=== PATIENT | female | born 1990 | race Caucasian/White ===

== ENCOUNTER → 2016-05-07 | Outpatient (CLI) | payer OTHER ==
--- NOTE | 2016-05-07 18:27 | CT ---
EXAMINATION TYPE: CT ChestAbdPelvis w con DATE OF EXAM: 05/07/2016 6:13 PM COMPARISON: 11/09/2015 HISTORY: Enlarged lymph nodes. CT DLP: 3808.00 mGycm Automated exposure control for dose reduction was used. CONTRAST: CT scan of the chest, abdomen and pelvis is performed with Oral Contrast and with IV Contrast, patien t injected with 100 mL of Omnipaque 300. FINDINGS: The lungs are clear of infiltrate. There is no pleural effusion. There is no mediastinal adenopathy. There are no hilar masses. Heart size is normal. There is no pericardial effusion. The liver pancreas appear normal. Spleen is slightly enlarged and measures 14 cm. There are clips fr om cholecystectomy. There is no adrenal mass. Kidneys have normal size and contour. There is normal c ontrast opacification. There is no hydronephrosis. There is no retroperitoneal adenopathy. I see no intestinal wall thickening. There are no dilated loops. Bladder distends smoothly. There is no evidence of a pelvic mass. Appendix is not definitely seen. There is no sign of appendicitis. The bony structures are intact. I see no axillary adenopathy. I see no inguinal adenopathy. IMPRESSION: Essentially negative CT scan of the chest abdomen and pelvis. No adenopathy identified. S table mild splenomegaly. Spleen measures 14 cm and is unchanged compared to old exam.
--- NOTE | 2016-05-07 18:32 | CT ---
EXAMINATION TYPE: CT soft tissue neck w con DATE OF EXAM: 05/07/2016 6:13 PM COMPARISON: 11/09/2015 HISTORY: Enlarged lymph nodes. CT DLP: 3808.00 mGycm Automated exposure control for dose reduction was used. CONTRAST: CT scan of the neck is performed following with IV Contrast, patient injected with 100 mL of Omnipaqu e 300. Axial images are obtained, coronal and sagittal reformatted images are reviewed. FINDINGS: There is a small mucous retention cyst in the left maxillary sinus. Parotid glands are symmetric. Sub mandibular salivary glands are symmetric. There are multiple enlarged anterior triangle cervical lymp h nodes that measure up to 2.2 cm. Cervical spine is intact. Epiglottis is normal. There is no eviden ce of a pharyngeal mass. Adenoids are within normal limits. Tonsils are not enlarged. Carotid arterie s and jugular veins appear normal. Thyroid gland is symmetric. There is normal branching pattern of t he great vessels on the aortic arch. There are a few bilateral posterior triangle lymph nodes that me asure up to 1 cm. IMPRESSION: There is symmetric cervical lymphadenopathy without change compared to old exam. Small mucous retenti on cyst in the left maxillary sinus.
== END | disposition home or self-care (01) ==
LOC: RADCTMAIN 16:13
PROVIDERS: ATTEND Internal Medicine Hematology & Oncology
DX: Z03.89 Encounter for observation for other suspected diseases and conditions ruled out (principal); R59.0 Localized enlarged lymph nodes; R16.1 Splenomegaly, not elsewhere classified
CPT/HCPCS: 70491; 71260; 74177; Q9967

== ENCOUNTER 2016-05-12 18:46 | Emergency (ER) | payer OTHER ==
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
[2016-05-12] MEDS ORDERED: SODIUM CHLORIDE 0.9% 500 ML IV ONE (19:49)
[2016-05-12] MEDS ORDERED: ACETAMINOPHEN IV (For NPO) 1,000 MG in EMPTY BAG 1 BAG IVPB STA (19:49)
[2016-05-12 20:17] LABS: Basophils # (A) 0.1 k/uL (0-0.2); Basophils % (A) 1 %; CH 27.4; CHCM 33.8; Eosinophils # (A) 0.5 k/uL (0-0.7); Eosinophils % (A) 6 %; HCT 35.1 % (34.0-46.0); HDW 2.87; HGB 11.9 gm/dL (11.4-16.0); Luc # (Auto) 0.09; Luc % (Auto) 1; Lymphocytes # (A) 2.2 k/uL (1.0-4.8); Lymphocytes % (A) 27 %; MCH 27.5 pg (25.0-35.0); MCHC 33.8 g/dL (31.0-37.0); MCV 81.4 fL (80.0-100.0); Mean Platelet Volume 7.4; Monocytes # (A) 0.4 k/uL (0-1.0); Monocytes % (A) 5 %; Neutrophils # (A) 4.9 k/uL (1.3-7.7); Neutrophils % (A) 61 %; RBC 4.31 m/uL (3.80-5.40); RDW 13.4 % (11.5-15.5); WBC 8.2 k/uL (3.8-10.6); WBC (Perox) 8.21
[2016-05-12 20:30] LABS: ALT 47 U/L (9-52); AST 22 U/L (14-36); Alkaline Phosphatase 117 U/L (38-126); Anion Gap 11 mmol/L; Blood Urea Nitrogen 13 mg/dL (7-17); Calcium 8.8 mg/dL (8.4-10.2); Carbon Dioxide 23 mmol/L (22-30); Chloride 108 mmol/L (98-107); Glucose 98 mg/dL (74-99); Non-African American GFR(MDRD) >60 (>60 ml/min/1.73 sqM); Sodium 142 mmol/L (137-145); Total Bilirubin 0.6 mg/dL (0.2-1.3)
[2016-05-12 20:35] LABS: Prothrombin Time 9.9 sec (9.0-12.0)
[2016-05-12] MEDS ORDERED: MORPHINE SULFATE 2 MG/ML SYRINGE IV STA (20:49)
[2016-05-12 20:58] LABS: Appearance,Urine Clear (Clear); Bilirubin,Urine Negative (Negative); Glucose,Urine (UA) Negative (Negative); Ketones,Urine Negative (Negative); Leukocyte Esterase,Urine Trace (Negative); Mucus,Urine Rare /hpf; Nitrite,Urine Negative (Negative); Particle Count 2233; Protein,Urine Negative (Negative); RBC,Urine >182 /hpf (0-5); Squamous Epithelial Cell,Urine 2 /hpf (0-4); UA Billing (MACRO vs. MICRO) MICRO; Urobilinogen,Urine <2.0 mg/dL (<2.0); WBC,Urine 2 /hpf (0-5)
[2016-05-12 20:59] VITALS: TEMP 97.4
--- NOTE | 2016-05-12 22:12 | US ---
EXAMINATION TYPE: US transvaginal DATE OF EXAM: 05/12/2016 9:54 PM COMPARISON: 09/19/2015 CLINICAL HISTORY: US. Heavy vaginal bleeding with clots. Pelvic pain. Tubal ligation 2014. 4 c-sectio ns TECHNIQUE: Transvaginal (TV) Date of LMP: unknown EXAM MEASUREMENTS: Uterus: 9.8 x 4.7 x 4.6cm Endometrial Stripe: 0.6cm Right Ovary: unable to visualize Left Ovary: unable to visualize FINDINGS: TECHNOLOGIST IMPRESSION: 1. Uterus: Anteverted heterogeneous in appearance 2. Endometrium: appears wnl 3. Right Ovary: Obscured by overlying bowel gas 4. Left Ovary: Obscured by overlying bowel gas 5. Bilateral Adnexa: wnl 6. Posterior cul-de-sac: wnl IMPRESSION: No endometrial thickening seen. No adnexal mass or free fluid. No adverse change compared to the old exam.
[2016-05-12 23:07] VITALS: BP 121/72; PULSE 76; RESP 16
== END 2016-05-12 23:05 | disposition home or self-care (01) ==
LOC: EC 18:46
DX: N93.9 Abnormal uterine and vaginal bleeding, unspecified (principal); F32.9 Major depressive disorder, single episode, unspecified; F31.9 Bipolar disorder, unspecified; F41.9 Anxiety disorder, unspecified; Z79.899 Other long term (current) drug therapy; Z87.442 Personal history of urinary calculi
CPT/HCPCS: 36415; 86900; 86901; 80053; 85025; 85610; 85730; 86850; 81001; 84702; 87086; 76830; 99284; 96361; 96374; J2270; J0131

== ENCOUNTER 2016-05-21 14:22 | Emergency (ER) | payer OTHER ==
[2016-05-21] MEDS ORDERED: SODIUM CHLORIDE 0.9% 500 ML IV STA (17:43)
[2016-05-21] MEDS ORDERED: ONDANSETRON 4 MG/2 ML VIAL IVP STA (17:43)
[2016-05-21 18:23] LABS: ALT 43 U/L (9-52); AST 26 U/L (14-36); Alkaline Phosphatase 130 U/L (38-126); Amorphous Sediment,Urine Occasional /hpf; Amylase <30 U/L (30-110); Anion Gap 12 mmol/L; Appearance,Urine Cloudy (Clear); Bacteria,Urine Occasional /hpf; Bilirubin,Urine Negative (Negative); Blood Urea Nitrogen 17 mg/dL (7-17); Calcium 9.3 mg/dL (8.4-10.2); Carbon Dioxide 22 mmol/L (22-30); Chloride 108 mmol/L (98-107); Glucose 94 mg/dL (74-99); Glucose,Urine (UA) Negative (Negative); Ketones,Urine Negative (Negative); Leukocyte Esterase,Urine Small (Negative); Mucus,Urine Few /hpf; Nitrite,Urine Negative (Negative); Non-African American GFR(MDRD) >60 (>60 ml/min/1.73 sqM); PH, Urine 6.5 (5.0-8.0); Particle Count 17085; Potassium 4.6 mmol/L (3.5-5.1); Protein,Urine 1+ (Negative); RBC,Urine 14 /hpf (0-5); Sodium 142 mmol/L (137-145); Specific Gravity,Urine 1.023 (1.001-1.035); Squamous Epithelial Cell,Urine 20 /hpf (0-4); Total Bilirubin 0.8 mg/dL (0.2-1.3); Total Protein 7.1 g/dL (6.3-8.2); UA Billing (MACRO vs. MICRO) MICRO; Urobilinogen,Urine <2.0 mg/dL (<2.0); WBC,Urine 42 /hpf (0-5)
[2016-05-21 18:30] LABS: Basophils % (A) 0 %; CH 26.7; CHCM 32.8; Eosinophils # (A) 0.3 k/uL (0-0.7); Eosinophils % (A) 4 %; HCT 37.5 % (34.0-46.0); HDW 3.13; HGB 12.4 gm/dL (11.4-16.0); Luc # (Auto) 0.12; Luc % (Auto) 1; Lymphocytes % (A) 24 %; MCH 27.1 pg (25.0-35.0); MCHC 33.1 g/dL (31.0-37.0); MCV 81.8 fL (80.0-100.0); Mean Platelet Volume 7.4; Monocytes # (A) 0.6 k/uL (0-1.0); Monocytes % (A) 7 %; Neutrophils # (A) 5.6 k/uL (1.3-7.7); Neutrophils % (A) 64 %; RBC 4.58 m/uL (3.80-5.40); RDW 13.2 % (11.5-15.5); WBC 8.6 k/uL (3.8-10.6); WBC (Perox) 9.48
--- NOTE | 2016-05-21 18:59 | US ---
EXAMINATION TYPE: US abdomen APPY DATE OF EXAM: 05/21/2016 6:44 PM COMPARISON: NONE CLINICAL HISTORY: Pain. RLQ APPENDIX AP Diameter (normal < 6mm): 2.1 mm Measured outer wall to outer wall. TECHNOLOGIST IMPRESSION: Suboptimal visualization due to patient body habitus Is the appendix seen in its entirety from the proximal cecum to distal end: Compressible tubular str ucture seen in the RLQ Is the appendix compressible: yes Does the appendix wall appear hypervascular: no Is an appendicolith present: no Is there inflammatory changes or free fluid present: no IMPRESSION: We could not definitively demonstrate the appendix. No solid or cystic masses identified . There was no evidence of appendicitis.
[2016-05-21 20:16] LABS: Amorphous Sediment,Urine Rare /hpf; Appearance,Urine Cloudy (Clear); Bacteria,Urine Rare /hpf; Bilirubin,Urine Negative (Negative); Glucose,Urine (UA) Negative (Negative); Ketones,Urine Negative (Negative); Leukocyte Esterase,Urine Trace (Negative); Mucus,Urine Rare /hpf; Nitrite,Urine Negative (Negative); Particle Count 6867; Protein,Urine Negative (Negative); RBC,Urine 1 /hpf (0-5); Squamous Epithelial Cell,Urine <1 /hpf (0-4); UA Billing (MACRO vs. MICRO) MICRO; WBC,Urine 1 /hpf (0-5)
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
[2016-05-21 20:31] VITALS: BP 110/58; PULSE 87; RESP 18; TEMP 99
== END 2016-05-21 20:40 | disposition home or self-care (01) ==
LOC: EC 14:22
DX: R10.31 Right lower quadrant pain (principal); Z79.899 Other long term (current) drug therapy; F41.9 Anxiety disorder, unspecified; F31.9 Bipolar disorder, unspecified; F43.10 Post-traumatic stress disorder, unspecified
CPT/HCPCS: 36415; 80053; 82150; 83690; 85025; 81001; 76705; 96374; 99284; J2405

== ENCOUNTER 2016-08-12 21:37 | Observation (INO) | payer OTHER ==
[2016-08-12] MEDS ORDERED: PANTOPRAZOLE 40 MG/10 ML VIAL IVP STA (22:18)
[2016-08-12] MEDS ORDERED: SODIUM CHLORIDE 0.9% 1,000 ML IV STA (22:18)
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
[2016-08-12 23:00] LABS: Basophils % (A) 1 %; CH 25.2; CHCM 32.5; Eosinophils # (A) 0.5 k/uL (0-0.7); Eosinophils % (A) 6 %; HCT 37.3 % (34.0-46.0); HDW 2.92; HGB 12.1 gm/dL (11.4-16.0); Luc % (Auto) 2; Lymphocytes # (A) 2.6 k/uL (1.0-4.8); Lymphocytes % (A) 28 %; MCH 25.3 pg (25.0-35.0); MCHC 32.5 g/dL (31.0-37.0); MCV 77.7 fL (80.0-100.0); Mean Platelet Volume 6.6; Monocytes # (A) 0.4 k/uL (0-1.0); Monocytes % (A) 5 %; Neutrophils # (A) 5.4 k/uL (1.3-7.7); Neutrophils % (A) 59 %; RDW 14.1 % (11.5-15.5); WBC 9.2 k/uL (3.8-10.6); WBC (Perox) 9.61
[2016-08-12 23:03] LABS: Appearance,Urine Clear (Clear); Bilirubin,Urine Negative (Negative); Glucose,Urine (UA) Negative (Negative); Ketones,Urine Negative (Negative); Leukocyte Esterase,Urine Negative (Negative); Mucus,Urine Rare /hpf; Nitrite,Urine Negative (Negative); Particle Count 3072; Protein,Urine Negative (Negative); RBC,Urine 2 /hpf (0-5); Squamous Epithelial Cell,Urine 1 /hpf (0-4); UA Billing (MACRO vs. MICRO) MICRO; Urobilinogen,Urine <2.0 mg/dL (<2.0); WBC,Urine 2 /hpf (0-5)
[2016-08-12 23:08] LABS: INR 0.9 (<1.1); Partial Thromboplastin Time 22.5 sec (22.0-30.0); Prothrombin Time 9.7 sec (9.0-12.0)
[2016-08-12 23:13] LABS: ALT 38 U/L (9-52); AST 17 U/L (14-36); Alkaline Phosphatase 121 U/L (38-126); Amylase 48 U/L (30-110); Anion Gap 10 mmol/L; Blood Urea Nitrogen 15 mg/dL (7-17); Carbon Dioxide 26 mmol/L (22-30); Chloride 107 mmol/L (98-107); Glucose 96 mg/dL (74-99); Magnesium 1.9 mg/dL (1.6-2.3); Non-African American GFR(MDRD) >60 (>60 ml/min/1.73 sqM); Potassium 4.1 mmol/L (3.5-5.1); Sodium 143 mmol/L (137-145); Total Bilirubin 0.5 mg/dL (0.2-1.3); Total Protein 6.9 g/dL (6.3-8.2)
--- NOTE | 2016-08-12 23:34 | XR ---
EXAMINATION TYPE: XR chest 2V DATE OF EXAM: 08/12/2016 11:13 PM COMPARISON: 06/09/2015 HISTORY: Cough TECHNIQUE: Frontal and lateral views of the chest are obtained. FINDINGS: Heart and mediastinum are normal. Lungs are clear. Diaphragm is normal. Bony thorax appear s normal. IMPRESSION: Normal chest. No change.
--- NOTE | 2016-08-12 23:35 | XR ---
EXAMINATION TYPE: XR abdomen 1V DATE OF EXAM: 08/12/2016 11:13 PM COMPARISON: 10/30/2013 HISTORY: Abdominal pain TECHNIQUE: 2 views FINDINGS: There is no sign of intestinal obstruction or pneumoperitoneum. There are clips from cholec ystectomy. There are clips from tubal ligation. There is no sign of a mass. There are no pathologic c alcifications over the kidneys. Fecal pattern is normal. IMPRESSION: Nonacute abdomen. No change.
[2016-08-12 23:36] LABS: Creatine Kinase 44 U/L (30-135)
[2016-08-12 23:47] LABS: Creatine Kinase MB <0.2 ng/mL (0.0-2.4); Troponin I <0.012 ng/mL (0.000-0.034)
[2016-08-13] MEDS ORDERED: NALOXONE 0.4 MG/ML 1 ML VIAL IV PRN (00:40)
[2016-08-13] MEDS ORDERED: HYDROmorphone 1 MG/ML 1 ML SYRINGE IVP STA (00:49)
[2016-08-13] MEDS ORDERED: ONDANSETRON 4 MG/2 ML VIAL IVP STA (00:49)
[2016-08-13] MEDS ORDERED: DIAZEPAM 5 MG TAB PO PRN ×2 (01:44→09:48)
[2016-08-13 02:14] VITALS: BMI 47.5
[2016-08-13] MEDS: lamoTRIgine 100 MG TAB PO SCH ×3 (02:21→21:58)
[2016-08-13 04:03] LABS: CH 24.8; CHCM 30.9; HCT 35.8 % (34.0-46.0); HDW 2.69; HGB 11.1 gm/dL (11.4-16.0); Hypochromasia Moderate; MCH 24.9 pg (25.0-35.0); MCV 80.4 fL (80.0-100.0); Mean Platelet Volume 6.5; RBC 4.45 m/uL (3.80-5.40); RDW 14.5 % (11.5-15.5); WBC 9.2 k/uL (3.8-10.6)
[2016-08-13] MEDS: HYDROmorphone 1 MG/ML 1 ML SYRINGE IV PRN ×4 (06:47→16:09)
[2016-08-13] MEDS: FAMOTIDINE 20 MG TAB PO SCH (07:13)
[2016-08-13] MEDS: SODIUM CHLORIDE 0.9% 1,000 ML IV SCH ×3 (07:22→22:00)
[2016-08-13] MEDS: PANTOPRAZOLE 40 MG/10 ML VIAL IV SCH ×2 (08:51→22:01)
[2016-08-13] MEDS: VENLAFAXINE HCL ER 150 MG CAP PO SCH (08:53)
[2016-08-13] MEDS ORDERED: traZODone HCL 100 MG TAB PO PRN (09:48)
[2016-08-13] MEDS: ONDANSETRON 4 MG/2 ML VIAL IVP PRN ×2 (09:58→17:17)
[2016-08-13] MEDS ORDERED: VENLAFAXINE HCL ER 150 MG CAP PO SCH (10:00)
[2016-08-13] MEDS ORDERED: lamoTRIgine 100 MG TAB PO SCH ×2 (10:00→21:00)
[2016-08-13] MEDS: ACETAMINOPHEN TAB 325 MG TAB PO PRN ×2 (10:30→18:35)
[2016-08-13] MEDS: LORATADINE-PSEUDOEPH 5-120 MG 1 EACH TAB.ER.12H PO SCH ×2 (10:31→21:59)
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
[2016-08-13 14:48] LABS: CH 25.2; CHCM 31.3; HCT 35.2 % (34.0-46.0); HDW 2.76; HGB 11.4 gm/dL (11.4-16.0); Hypochromasia Slight; MCH 26.1 pg (25.0-35.0); MCHC 32.3 g/dL (31.0-37.0); MCV 80.7 fL (80.0-100.0); Mean Platelet Volume 6.7; RBC 4.36 m/uL (3.80-5.40); RDW 14.4 % (11.5-15.5); WBC 7.7 k/uL (3.8-10.6)
[2016-08-13] MEDS ORDERED: traZODone HCL 100 MG TAB PO SCH (21:00)
--- NOTE | 2016-08-13 23:17 | CONS ---
DATE OF CONSULTATION: REASON FOR CONSULTATION: Nausea, vomiting and hematemesis. HISTORY OF PRESENT ILLNESS: The patient is a 26-year-old pleasant lady who was admitted to the hospital with acute onset of epigastric pain followed by nausea, vomiting, and some hematemesis. She thought she threw up fresh blood 2 or 3 times yesterday and once the day before. At the onset of symptoms, she had diffuse abdominal pain, mostly in the epigastric area and had diarrhea that lasted for about a day and the subsequently diarrhea resolved, but she continued to have persistent nausea and vomiting yesterday and hence came into the emergency room and admitted to the hospital for further evaluation. Her initial hemoglobin was 12.8 and dropped to 11.4 g/dL. Since being in the hospital she did not have any further episodes of hematemesis. She did have one episode of nausea and vomiting. She did have similar symptoms in the past. Denies any recent NSAID use. No prior history of peptic ulcer disease. PAST MEDICAL HISTORY: Significant for GERD, kidney stones, bipolar disorder, PTSD. PAST SURGICAL HISTORY: , cholecystectomy, tubal ligation. Medications at home: Diazepam, Effexor, ( ), Lamictal and Zantac. ALLERGIES: None. SOCIAL HISTORY: No smoking. No alcohol use. FAMILY HISTORY: Mother has diabetes and hypertension. Father has DC. ALLERGIES: None. REVIEW OF SYSTEMS: CARDIOPULMONARY: No chest pain or shortness of breath. GENITOURINARY: No dysuria or hematuria. MUSCULOSKELETAL: Unremarkable. SKIN: Unremarkable. ENDOCRINE: Unremarkable. PSYCHIATRIC: Unremarkable. NEUROLOGY: Unremarkable. ENT: Vision unremarkable. CONSTITUTIONAL: No recent weight loss. No fever, chills or night sweats. On physical examination, she appears comfortable in no apparent distress. Vital signs are stable. Blood pressure is 118/74, pulse rate 96, temperature 97.7. HEENT: Unremarkable. Conjunctivae pink. Sclerae anicteric. Oral cavity, no lesions. NECK: No JVD or lymph node enlargement. Chest was clear to auscultation. HEART: Regular rate and rhythm. ABDOMEN: Soft. Mild tenderness in the epigastric area. Bowel sounds are positive. No organomegaly. EXTREMITIES: No pedal edema. SKIN: No rashes. NEURO: Alert and oriented x2. No focal deficits. Labs done at the time of admission to the hospital: WBC 9.2, hemoglobin 12.1, today hemoglobin 11.4. Amylase and lipase are normal. Basic metabolic panel is normal. PT, INR is normal. Stool for occult blood was negative. IMPRESSION: This is a lady who presents with acute onset of abdominal pain followed by nausea, vomiting, and diarrhea that lasted for 24 hours. She had a couple of episodes of hematemesis at the time of nausea and vomiting. The diarrhea has resolved, but she continues to have persistent epigastric pain with some more nausea, vomiting, hemoglobin stable at 11.4 g/dL. Most likely we are dealing with acute viral gastroenteritis and possible Martine-Guevara tear that may have caused some hematemesis. RECOMMENDATIONS: 1. Continue with symptomatic and supportive care. 2. Continue antiemetics and IV PPIs. 3. No reason for any endoscopic intervention at the present time. 4. If symptoms improve we can advance diet as tolerated tomorrow. She can be discharged home. Thank you for this consultation.
[2016-08-14] MEDS: ACETAMINOPHEN TAB 325 MG TAB PO PRN ×3 (00:42→13:21)
[2016-08-14] MEDS: CALCIUM CARBONATE LIQUID 500 MG/5 ML CUP PO SCH ×3 (00:44→13:24)
[2016-08-14] MEDS: SODIUM CHLORIDE 0.9% 1,000 ML IV SCH ×2 (05:22→13:20)
[2016-08-14] MEDS: ONDANSETRON 4 MG/2 ML VIAL IVP PRN ×2 (06:43→15:40)
[2016-08-14] MEDS: VENLAFAXINE HCL ER 150 MG CAP PO SCH (08:40)
[2016-08-14] MEDS: PANTOPRAZOLE 40 MG/10 ML VIAL IV SCH (08:40)
[2016-08-14] MEDS: lamoTRIgine 100 MG TAB PO SCH (08:40)
[2016-08-14] MEDS: FAMOTIDINE 20 MG TAB PO SCH (08:41)
[2016-08-14] MEDS: LORATADINE-PSEUDOEPH 5-120 MG 1 EACH TAB.ER.12H PO SCH (08:59)
--- NOTE | 2016-08-14 10:29 | PN ---
DATE OF SERVICE: 08/14/2016 Patient is a 26-year-old pleasant white female admitted to the hospital with acute onset of nausea, vomiting, and diarrhea that started about 3 days ago. The diarrhea since resolved. However, she continues to have abdominal pain with nausea, vomiting. She was getting Dilaudid every 3 hours which was discontinued last night and was started on oral Tylenol. In the meantime, she still complains of abdominal pain. She had 2 episodes of nausea, vomiting last night. No further episodes of hematemesis. On physical examination, she appears comfortable, in no apparent distress. Vitals signs are stable. Blood pressure is 124/73, pulse rate 96, temperature 97. HEENT: Unremarkable. Conjunctivae are pink. Sclerae nonicteric. Oral cavity no lesions. NECK: No JVD or lymph node enlargement. Chest was clear to auscultation. HEART: Regular rate and rhythm. Abdomen is soft. It was nontender, nondistended. Liver and spleen are not palpable. Bowel sounds are positive. No organomegaly. EXTREMITIES: No pedal edema. SKIN: No rashes. NEURO: She is alert and oriented x3, no focal deficits. Labs from yesterday, WBC 7.7, hemoglobin 11.4, platelets 233. IMPRESSION: Acute onset of nausea, vomiting, diarrhea, probably related to acute viral gastroenteritis which is gradually improving. The diarrhea has resolved, but she still has some nausea, vomiting. She had a couple of episodes of hematemesis, probably related to a Martine-Guevara tear. No further bleeding and hemoglobin is stable. RECOMMENDATIONS: 1. Advance diet as tolerated. 2. Pain medications as needed. 3. No need for any endoscopic intervention. Thank you for this consultation.
[2016-08-14 17:45] VITALS: BP 103/53; PULSE 81; RESP 21; TEMP 98.7
--- NOTE | 2016-08-15 21:56 | DS ---
DATE OF ADMISSION: 08/13/2016 DATE OF DISCHARGE: 08/14/2016 FINAL DIAGNOSES: 1. Acute severe gastroenteritis, likely viral. 2. Acute gastrointestinal bleed from Martine-Guevara tear, present on admission. 3. Bipolar disorder, under control. 4. Posttraumatic stress disorder, stable. 5. Gastroesophageal reflux disease. 6. Morbid obesity; body mass index of 47.6. HOSPITAL COURSE: This patient presented with nausea, vomiting, abdominal pain, and after vomiting had some blood felt to be from a Martine-Guevara tear. Patient had no white count, afebrile. Seen by GI. Patient doing much better at the time of discharge. On examination, abdomen is soft, non-tender. Patient still is to stay on a soft bland diet. DISCHARGE MEDICATIONS: 1. Effexor XR 150 mg a day. 2. Desyrel 100 mg p.o. at bedtime p.r.n. 3. Zantac 300 mg p.o. daily. 4. Lamictal 100 mg in the morning, 150 mg at night. 5. Valium 5 mg p.o. t.i.d. p.r.n. 6. Tylenol 650 mg q.6 p.r.n. Diet soft, bland. Follow with Dr. Keenan in 2 days.
== END 2016-08-14 19:57 | disposition home or self-care (01) ==
LOC: EC 21:37 → 6PED 08-13 00:41
PROVIDERS: ADMIT Hospitalist; ATTEND Hospitalist
DX: K22.6 Gastro-esophageal laceration-hemorrhage syndrome (principal); K52.9 Noninfective gastroenteritis and colitis, unspecified; K58.9 Irritable bowel syndrome, unspecified; F31.9 Bipolar disorder, unspecified; F43.10 Post-traumatic stress disorder, unspecified; K21.9 Gastro-esophageal reflux disease without esophagitis; E66.01 Morbid (severe) obesity due to excess calories; Z68.42 Body mass index [BMI] 45.0-49.9, adult; Z90.49 Acquired absence of other specified parts of digestive tract; R09.81 Nasal congestion; Z87.442 Personal history of urinary calculi; Z79.899 Other long term (current) drug therapy
CPT/HCPCS: 96374 ×2; 96361 ×5; 99285 ×2; 96375 ×3; 36415; 86900; 86901; 80053; 82150; 82550; 82553; 83690; 83735; 84484; 85025; 85027; 85610; 85730; 86850; 82272; 81001; 81025; 71020; 74000; G0378 ×2; J2405 ×2; J1170; C9113 ×3; 96376

== ENCOUNTER 2016-08-16 22:46 | Emergency (ER) | payer OTHER ==
[2016-08-16] MEDS ORDERED: SODIUM CHLORIDE 0.9% 2,000 ML IV STA (23:28)
[2016-08-16] MEDS ORDERED: ONDANSETRON 4 MG/2 ML VIAL IVP STA (23:28)
[2016-08-16] MEDS ORDERED: PANTOPRAZOLE 40 MG/10 ML VIAL IVP STA (23:28)
[2016-08-16] MEDS ORDERED: MAG HYDROX/AL HYDROX/SIMETH 30 ML, HYOSCYAMINE ELIXIR 10 ML, CIMETIDINE HCL 300 MG, LID... PO STA ×4 (23:29)
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
[2016-08-17 00:24] LABS: Appearance,Urine Cloudy (Clear); Bacteria,Urine Rare /hpf; Bilirubin,Urine Negative (Negative); Glucose,Urine (UA) Negative (Negative); Ketones,Urine Negative (Negative); Leukocyte Esterase,Urine Negative (Negative); Mucus,Urine Rare /hpf; Nitrite,Urine Negative (Negative); PH, Urine 6.5 (5.0-8.0); Particle Count 4072; Protein,Urine Negative (Negative); RBC,Urine 2 /hpf (0-5); Specific Gravity,Urine 1.021 (1.001-1.035); Squamous Epithelial Cell,Urine 3 /hpf (0-4); UA Billing (MACRO vs. MICRO) MICRO; Urobilinogen,Urine <2.0 mg/dL (<2.0); WBC,Urine 1 /hpf (0-5)
[2016-08-17 00:26] LABS: ALT 42 U/L (9-52); AST 27 U/L (14-36); Alkaline Phosphatase 125 U/L (38-126); Amylase 51 U/L (30-110); Anion Gap 10 mmol/L; Blood Urea Nitrogen 18 mg/dL (7-17); Calcium 9.3 mg/dL (8.4-10.2); Carbon Dioxide 25 mmol/L (22-30); Chloride 109 mmol/L (98-107); Glucose 82 mg/dL (74-99); Non-African American GFR(MDRD) >60 (>60 ml/min/1.73 sqM); Potassium 4.3 mmol/L (3.5-5.1); Sodium 144 mmol/L (137-145); Total Bilirubin 0.5 mg/dL (0.2-1.3); Total Protein 7.1 g/dL (6.3-8.2)
[2016-08-17 00:29] LABS: Basophils # (A) 0.1 k/uL (0-0.2); Basophils % (A) 1 %; CHCM 32.1; Eosinophils # (A) 0.4 k/uL (0-0.7); Eosinophils % (A) 4 %; HCT 41.4 % (34.0-46.0); HDW 2.78; HGB 13.2 gm/dL (11.4-16.0); Luc # (Auto) 0.14; Luc % (Auto) 2; Lymphocytes # (A) 2.9 k/uL (1.0-4.8); Lymphocytes % (A) 30 %; MCH 24.9 pg (25.0-35.0); Mean Platelet Volume 6.5; Monocytes # (A) 0.4 k/uL (0-1.0); Monocytes % (A) 4 %; Neutrophils # (A) 5.7 k/uL (1.3-7.7); Neutrophils % (A) 60 %; RBC 5.31 m/uL (3.80-5.40); RDW 14.8 % (11.5-15.5); WBC 9.5 k/uL (3.8-10.6); WBC (Perox) 9.63
[2016-08-17 00:31] VITALS: RESP 18
--- NOTE | 2016-08-17 00:44 | XR ---
EXAM: XR Abdomen Complete, 2 or More Views. CLINICAL HISTORY: Reason: abdominal pain TECHNIQUE: Frontal view of the abdomen/pelvis with upright view of the abdomen. COMPARISON: . FINDINGS: Intraperitoneal space: No free air on the upright view. No calcification is seen in the upper abdomen. There are surgical clips in the pelvis, unchanged. Gastrointestinal tract: There is overall paucity of small bowel gas. Fluid-filled dilated small bowel is difficult to entirely exclude. Air noted in large bowel loops, normal in caliber Organs: There are surgical clips again seen in the right upper quadrant likely related to prior cholecystectomy. Bones/joints: Unremarkable. IMPRESSION: 1. Nonspecific bowel gas pattern. Overall paucity of small bowel gas. 2. No radiopaque renal calculus.
[2016-08-17 01:32] VITALS: BP 131/66; PULSE 86; TEMP 99.4
== END 2016-08-17 01:32 | disposition home or self-care (01) ==
LOC: EC 22:46
DX: K92.2 Gastrointestinal hemorrhage, unspecified (principal); K29.70 Gastritis, unspecified, without bleeding; K21.9 Gastro-esophageal reflux disease without esophagitis; F31.9 Bipolar disorder, unspecified; E66.01 Morbid (severe) obesity due to excess calories; F41.9 Anxiety disorder, unspecified; Z90.49 Acquired absence of other specified parts of digestive tract; Z98.51 Tubal ligation status; Z79.899 Other long term (current) drug therapy
CPT/HCPCS: 99284; 96374; 96375; 36415; 80053; 82150; 83690; 85025; 81001; 74000; J2405; C9113

== ENCOUNTER 2016-08-29 22:18 | Observation (INO) | payer OTHER ==
[2016-08-29] MEDS ORDERED: ACETAMINOPHEN TAB 500 MG TAB PO STA (23:01)
[2016-08-29] MEDS ORDERED: ONDANSETRON 4 MG/2 ML VIAL IVP STA (23:01)
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
[2016-08-29] MEDS: SODIUM CHLORIDE 0.9% 500 ML IV SCH (23:45)
[2016-08-30 00:03] LABS: Basophils % (A) 1 %; CH 25.2; CHCM 32.5; Eosinophils # (A) 0.6 k/uL (0-0.7); Eosinophils % (A) 7 %; HCT 39.6 % (34.0-46.0); HDW 2.85; HGB 12.9 gm/dL (11.4-16.0); Luc # (Auto) 0.12; Luc % (Auto) 2; Lymphocytes # (A) 1.6 k/uL (1.0-4.8); Lymphocytes % (A) 21 %; MCH 25.2 pg (25.0-35.0); MCHC 32.5 g/dL (31.0-37.0); MCV 77.5 fL (80.0-100.0); Mean Platelet Volume 6.4; Monocytes # (A) 0.4 k/uL (0-1.0); Monocytes % (A) 5 %; Neutrophils # (A) 5.1 k/uL (1.3-7.7); Neutrophils % (A) 65 %; RBC 5.11 m/uL (3.80-5.40); WBC 7.8 k/uL (3.8-10.6); WBC (Perox) 7.67
[2016-08-30 00:04] LABS: Amorphous Sediment,Urine Rare /hpf; Appearance,Urine Cloudy (Clear); Bacteria,Urine Occasional /hpf; Bilirubin,Urine Negative (Negative); Glucose,Urine (UA) Negative (Negative); Ketones,Urine Negative (Negative); Leukocyte Esterase,Urine Negative (Negative); Mucus,Urine Rare /hpf; Nitrite,Urine Negative (Negative); Particle Count 5150; Protein,Urine Trace (Negative); RBC,Urine 5 /hpf (0-5); Specific Gravity,Urine 1.024 (1.001-1.035); Squamous Epithelial Cell,Urine 8 /hpf (0-4); UA Billing (MACRO vs. MICRO) MICRO; WBC,Urine 3 /hpf (0-5)
[2016-08-30 00:12] LABS: ALT 51 U/L (9-52); AST 23 U/L (14-36); Alkaline Phosphatase 129 U/L (38-126); Anion Gap 12 mmol/L; Blood Urea Nitrogen 9 mg/dL (7-17); Calcium 9.1 mg/dL (8.4-10.2); Carbon Dioxide 22 mmol/L (22-30); Chloride 108 mmol/L (98-107); Glucose 116 mg/dL (74-99); Non-African American GFR(MDRD) >60 (>60 ml/min/1.73 sqM); Potassium 3.9 mmol/L (3.5-5.1); Sodium 142 mmol/L (137-145); Total Bilirubin 0.5 mg/dL (0.2-1.3); Total Protein 6.8 g/dL (6.3-8.2)
[2016-08-30 00:21] LABS: Partial Thromboplastin Time 22.2 sec (22.0-30.0)
[2016-08-30] MEDS ORDERED: SODIUM CHLORIDE 0.9% 1,000 ML IV ONE (00:25)
--- NOTE | 2016-08-30 00:34 | XR ---
EXAM: XR Chest, 2 Views CLINICAL HISTORY: Reason: cough TECHNIQUE: Frontal and lateral views of the chest. COMPARISON: 08/12/16 FINDINGS: Lungs: Unremarkable. No consolidation. Pleural space: Unremarkable. No pneumothorax. Heart: Unremarkable. No cardiomegaly. Mediastinum: Unremarkable. Bones/joints: Unremarkable. Upper abdomen: There are again cholecystectomy clips in the right upper quadrant. IMPRESSION: No significant change. No new acute intrathoracic process is seen.
[2016-08-30] MEDS ORDERED: HYDROmorphone 1 MG/ML 1 ML SYRINGE IVP STA (01:04)
[2016-08-30] MEDS ORDERED: LORazepam 2 MG/ML SYRINGE IV STA (01:21)
[2016-08-30] MEDS ORDERED: SODIUM CHLORIDE 0.9% 1,000 ML IV STA (04:23)
[2016-08-30] MEDS ORDERED: DICYCLOMINE 10 MG/ML 2 ML AMP IM STA (04:23)
[2016-08-30] MEDS ORDERED: NALOXONE 0.4 MG/ML 1 ML VIAL IV PRN (05:13)
[2016-08-30] MEDS ORDERED: ACETAMINOPHEN TAB 325 MG TAB PO PRN (05:13)
[2016-08-30] MEDS: MORPHINE SULFATE 4 MG/ML SYRINGE IV PRN ×5 (05:38→21:54)
[2016-08-30] MEDS: ONDANSETRON 4 MG/2 ML VIAL IVP PRN ×2 (07:55→18:08)
[2016-08-30 08:09] VITALS: BMI 46.5
[2016-08-30] MEDS: VENLAFAXINE HCL ER 150 MG CAP PO SCH (09:00)
[2016-08-30] MEDS ORDERED: FAMOTIDINE 20 MG TAB PO SCH (09:00)
[2016-08-30] MEDS: PANTOPRAZOLE 40 MG/10 ML VIAL IVP SCH (09:00)
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
[2016-08-30] MEDS ORDERED: RX INFO: IV CONTRAST WAS GIVEN 1 EACH MISC MISCELLANE PRN (09:54)
[2016-08-30] MEDS: IOHEXOL 350 MG/ML 25 ML BOTTLE (ORAL USE) PO PRN ×2 (10:15→11:20)
[2016-08-30] MEDS: lamoTRIgine 100 MG TAB PO SCH ×2 (10:15→21:55)
[2016-08-30] MEDS: traZODone HCL 100 MG TAB PO SCH ×2 (10:15→21:56)
--- NOTE | 2016-08-30 12:19 | HP ---
DATE OF ADMISSION: Patient is a 26-year-old, came in with complaints of abdominal pain, severe 9/10 in left upper quadrant, right lower quadrant and diffuse, sharp in nature, nonradiating, although patient appears to be comfortable, though, does not appear to be in 9/10 pain, but patient did have a high-grade fever and patient does not have any rebound or rigidity and patient had a similar episode about a month ago. At that time she was diagnosed with gastroenteritis ( ) and was sent home. Patient has about 4 episodes of diarrhea she says and with blood in the stools. Patient denied any hematemesis. Does have hematochezia and patient had 24 T-max is 101.4, although she attributes it to her shower just before they checked the temperature, although this should not cause such a high-grade temperature. Patient had similar episodes in the past. Patient at that time was extensively evaluated with CT of the abdomen. Patient will be started on Unasyn as infectious colitis cannot be ruled out. Patient although denied any dysuria. Denied any flank pain, denied any photophobia. Patient denied any cough, runny nose. The source of the infection is possibly entire abdominal ( ) for which I will start her on Unasyn. CT of the abdomen will be obtained. Depending on the CT of the abdomen, patient regarding colonoscopy will be made, discussed with Gastroenterology. REVIEW OF SYSTEMS: GENERAL: As described in HPI. GASTROINTESTINAL: As described in HPI. CARDIOVASCULAR: No chest pain, no orthopnea, no PND, no palpitations. PULMONARY: Denied any shortness of breath. No cough or hemoptysis. NEUROLOGIC: No headaches, no weakness, no numbness. All others systems were reviewed and were negative. PAST MEDICAL HISTORY: Gastroesophageal reflux, diarrhea in the past, gallstones and cholelithiasis, anxiety disorder, depression previously. SOCIAL HISTORY: Denied any smoking, alcohol abuse or any drug abuse. FAMILY HISTORY: Mother had diabetes mellitus, hyperlipidemia, hypertension, myocardial infarction. HOME MEDICATIONS; 1. Venlafaxine. 2. Trazodone. 3. Ranitidine. 4. Lamotrigine. 5. Diazepam. 6. Ondansetron. 7. Pantoprazole. ALLERGIES: No known drug allergies. PHYSICAL EXAMINATION: Temperature 97.9, pulse of 110, respiratory rate of 16, blood pressure is 115/66, saturating at 99% on room air. ABDOMINAL EXAMINATION: Patient has minimal abdominal tenderness in the left upper quadrant as well as right lower quadrant without any rebound or rigidity and patient's abdomen is soft. GENERAL: The patient is alert and oriented x3, not in any acute distress. Well developed, well nourished. HEENT: Pupils are round and equally reacting to light. EOMI. No scleral icterus. No conjunctival pallor. Normocephalic, atraumatic. No pharyngeal erythema. No thyromegaly. CARDIOVASCULAR: S1 and S2 present. No murmurs, rubs, or gallops. PULMONARY: Chest is clear to auscultation, no wheezing or crackles. MUSCULOSKELETAL: No joint swelling or deformity. EXTREMITIES: No cyanosis, clubbing, or pedal edema. NEUROLOGICAL: Gross neurological examination did not reveal any focal deficits. SKIN: No rashes. LABORATORY DATA: CBC, CMP essentially within normal limits and TSH is within normal limits. ASSESSMENT AND PLAN: 1. Abdominal pain, etiology includes ischemic colitis, inflammatory bowel disease is a consideration because of fever. Patient was started on Unasyn and further management with CT of the abdomen as mentioned above. 2. Bipolar disorder and posttraumatic stress disorder. 3. Gastroesophageal reflux. 4. Morbid obesity. 5. Tachycardia, possible secondary to fever. PLAN: As mentioned in history. MTDD
--- NOTE | 2016-08-30 12:50 | CT ---
EXAMINATION TYPE: CT abdomen pelvis w con DATE OF EXAM: 08/30/2016 12:33 PM HISTORY: Pain, fever, rectal bleeding, throwing up blood CT DLP: 2389.6mGycm Automated Exposure Control for Dose Reduction was Utilized. CONTRAST: CT scan of the abdomen and pelvis is performed with IV Contrast, patient injected with 100 mL of Omni paque 300. COMPARISON: 05/07/2016. FINDINGS: LUNG BASES: Bibasilar subsegmental atelectasis is noted. LIVER/GB: No significant abnormality is appreciated. The gallbladder has been surgically removed with cholecystectomy clips are seen within the gallbladder fossa. PANCREAS: No significant abnormality is seen. SPLEEN: The spleen is again mildly prominent, unchanged from the prior exam. ADRENALS: No significant abnormality is seen. KIDNEYS: No significant abnormality is seen. The kidneys enhance and excrete symmetrically. BOWEL: Although the rectum is incompletely distended there are no perirectal fat stranding changes or gross evidence of bowel wall thickening to indicate proctitis in this patient with rectal pain and r ectal bleeding. No right lower quadrant fat stranding changes are seen adjacent to the appendix. Appe ndix appears unremarkable. UTERUS/ADNEXA: Right-sided tubal ligation clip is again noted. The right ovary appears slightly enlar ged measuring up to 3.8 cm, however it is unchanged from the prior exam. LYMPH NODES: No greater than 1cm abdominal or pelvic lymph nodes are appreciated. OSSEOUS STRUCTURES: No significant abnormality is seen. OTHER: No significant additional abnormality is seen. IMPRESSION: 1. Although the rectum is nondistended no CT evidence for perirectal inflammatory fat stranding or pr octitis with the given history of rectal pain and bleeding. Bowel is nondilated with no evidence of o bstruction or pericolonic inflammatory fat stranding. 2. Prominent size of the right ovary, unchanged from the prior.
[2016-08-30] MEDS: AMPICILLIN-SULBACTAM 3 GM in SODIUM CHLORIDE 0.9% 100 ML IVPB SCH ×2 (13:20→18:07)
[2016-08-30] MEDS: SODIUM CHLORIDE 0.9% 1,000 ML IV SCH ×2 (22:06)
[2016-08-31] MEDS: AMPICILLIN-SULBACTAM 3 GM in SODIUM CHLORIDE 0.9% 100 ML IVPB SCH ×5 (00:13→23:25)
[2016-08-31] MEDS: DIAZEPAM 5 MG TAB PO PRN ×3 (00:13→20:21)
[2016-08-31] MEDS: MORPHINE SULFATE 4 MG/ML SYRINGE IV PRN ×2 (02:15→06:10)
[2016-08-31] MEDS: ONDANSETRON 4 MG/2 ML VIAL IVP PRN ×3 (02:15→17:54)
[2016-08-31] MEDS: SODIUM CHLORIDE 0.9% 1,000 ML IV SCH ×4 (04:54→21:39)
[2016-08-31] MEDS: lamoTRIgine 100 MG TAB PO SCH ×2 (07:21→20:21)
[2016-08-31] MEDS: PANTOPRAZOLE 40 MG/10 ML VIAL IVP SCH (07:21)
[2016-08-31] MEDS: VENLAFAXINE HCL ER 150 MG CAP PO SCH (07:21)
[2016-08-31] MEDS: HYDROcodone/APAP 7.5-325MG 1 EACH TAB PO PRN ×3 (10:15→23:25)
--- NOTE | 2016-08-31 10:31 | PN ---
DATE OF SERVICE: 08/31/2016 Patient is a 26-year-old white female admitted to the hospital with nausea, vomiting, diarrhea, coffee-ground emesis for the last few days duration. She complains of abdominal pain, mostly in the right lower quadrant area as well as in the upper abdominal area, associated with intermittent fever, chills or night sweats. She states that yesterday she threw up twice. This morning had one loose bowel movement. No bleeding. She has been having these symptoms on and off for the last few weeks duration. In fact she was in the hospital a couple of weeks ago. She was diagnosed with possible infectious colitis and was started on broad-spectrum antibiotics. Stool studies so far showed negative C. difficile toxin and the rest of the stool studies are still pending at the time of this dictation. She did have occult blood that was positive in the stool. On physical examination, she appears comfortable in no apparent distress. Vital signs are stable. Blood pressure is 127/65, pulse rate 112, temperature 98.5. HEENT EXAMINATION: Unremarkable. Conjunctivae pink. Sclerae anicteric. Oral cavity, no lesions. NECK; No JVD or lymph node enlargement. Chest was clear to auscultation. HEART: Regular rate and rhythm. ABDOMEN: Soft. Bowel sounds are positive. No organomegaly. EXTREMITIES: No pedal edema. SKIN: No rashes. NEURO: Alert and oriented x3. No focal deficits. Labs from today C-reactive protein was 28.6. IMPRESSION: This is a lady who presents with diffuse abdominal pain with intermittent nausea, vomiting, some coffee-ground emesis as well as diarrhea on and off for the last one month duration. She had multiple ER visits in the last 3 to 4 months with the same symptoms. Has been treated conservatively and symptomatically and still has recurrent symptoms. She did have a CT of the abdomen and pelvis done yesterday that was unremarkable RECOMMENDATIONS: 1. Continue with current medications. 2. Will await the rest of the stool studies. 3. She is already on empiric antibiotics. 4. If she still has persistent symptoms, I will consider proceeding with an EGD and colonoscopy during this hospitalization most likely on Friday. Plan was discussed with the patient. She is agreeable to it. Thank you for this consultation.
--- NOTE | 2016-08-31 12:00 | PN ---
A 26-year-old came in with abdominal pain. She continues to rate pain of 9/10 although patient is quite comfortable. The patient's pain medications will be switched to oral medications. CT of the abdomen did not show any significant abnormality. Dr. Vyas is recommending to wait for the urine cultures before she can proceed with colonoscopy. REVIEW OF SYSTEMS: CARDIOVASCULAR: No chest pain, no orthopnea, no PND, no palpitations. PULMONARY: Denied any shortness of breath. No cough or hemoptysis. GASTROINTESTINAL: As mentioned above. NEUROLOGIC: No headaches, no weakness, no numbness. Medications were reviewed. PHYSICAL EXAMINATION: Temperature is 97.1, pulse of 104, respiratory rate of 16, blood pressure is 124/67. GENERAL: The patient is alert and oriented x3, not in any acute distress. Well developed, well nourished. HEENT: Pupils are round and equally reacting to light. EOMI. No scleral icterus. No conjunctival pallor. Normocephalic, atraumatic. No pharyngeal erythema. No thyromegaly. CARDIOVASCULAR: S1 and S2 present. No murmurs, rubs, or gallops. PULMONARY: Chest is clear to auscultation, no wheezing or crackles. ABDOMEN: Soft, nontender, nondistended, normoactive bowel sounds. No palpable organomegaly. MUSCULOSKELETAL: No joint swelling or deformity. EXTREMITIES: No cyanosis, clubbing, or pedal edema. NEUROLOGICAL: Gross neurological examination did not reveal any focal deficits. SKIN: No rashes. LABORATORY DATA: No significant abnormality was appreciated on lab data except for CT as mentioned above. ASSESSMENT AND PLAN: 1. Abdominal pain. Patient is undergoing further evaluation for abdominal pain. So far everything is negative. Patient is on empiric antibiotics in the form of Unasyn. Patient is being worked up for colitis. Awaiting stool cultures and stool testing and stool leukocytes. 2. Bipolar disorder. 3. Posttraumatic stress disorder. 4. Gastroesophageal reflux disease. 5. Morbid obesity. 6. Tachycardia, which actually improved. Probably her baseline is elevated heart rate because of her obesity. PLAN: As mentioned in the interval history.
[2016-08-31] MEDS: HEPARIN SODIUM,PORCINE 5,000 UNIT/ML 1 ML VIAL SQ SCH ×2 (15:53→23:25)
[2016-08-31] MEDS: traZODone HCL 100 MG TAB PO SCH (20:22)
[2016-09-01] MEDS: ONDANSETRON 4 MG/2 ML VIAL IVP PRN ×3 (04:14→21:02)
[2016-09-01] MEDS: DIAZEPAM 5 MG TAB PO PRN ×3 (04:21→21:02)
[2016-09-01] MEDS: SODIUM CHLORIDE 0.9% 1,000 ML IV SCH ×4 (05:05→16:29)
[2016-09-01] MEDS: HYDROcodone/APAP 7.5-325MG 1 EACH TAB PO PRN ×2 (05:39→17:51)
[2016-09-01] MEDS: AMPICILLIN-SULBACTAM 3 GM in SODIUM CHLORIDE 0.9% 100 ML IVPB SCH ×3 (06:30→17:52)
[2016-09-01] MEDS: PANTOPRAZOLE 40 MG/10 ML VIAL IVP SCH (07:31)
[2016-09-01] MEDS: lamoTRIgine 100 MG TAB PO SCH ×2 (07:32→21:02)
[2016-09-01] MEDS: VENLAFAXINE HCL ER 150 MG CAP PO SCH (07:32)
[2016-09-01] MEDS: HEPARIN SODIUM,PORCINE 5,000 UNIT/ML 1 ML VIAL SQ SCH ×2 (07:32→15:31)
[2016-09-01 08:07] LABS: CHCM 31.9; HCT 31.1 % (34.0-46.0); HDW 3.02; HGB 10.5 gm/dL (11.4-16.0); Hypochromasia Slight; MCH 26.4 pg (25.0-35.0); MCHC 33.6 g/dL (31.0-37.0); MCV 78.4 fL (80.0-100.0); Mean Platelet Volume 6.7; RBC 3.97 m/uL (3.80-5.40); RDW 14.8 % (11.5-15.5); WBC 4.1 k/uL (3.8-10.6)
[2016-09-01 08:22] LABS: Anion Gap 5 mmol/L; Blood Urea Nitrogen 5 mg/dL (7-17); Calcium 8.1 mg/dL (8.4-10.2); Carbon Dioxide 27 mmol/L (22-30); Chloride 110 mmol/L (98-107); Glucose 88 mg/dL (74-99); Non-African American GFR(MDRD) >60 (>60 ml/min/1.73 sqM); Potassium 3.8 mmol/L (3.5-5.1); Sodium 142 mmol/L (137-145)
--- NOTE | 2016-09-01 10:03 | PN ---
DATE OF SERVICE: 09/01/2016 BRIEF HISTORY: Patient is a 26-year-old pleasant female admitted with nausea, vomiting, diarrhea, abdominal pain and some coffee-ground emesis on and off for the last 2 to 3 months' duration. She still continues to have nausea, vomiting despite being on proton pump inhibitors as well as antiemetics. She states that she threw up blood once yesterday. She has some diarrhea. No abdominal pain. Stool studies so far are C. difficile toxin has been negative and cultures are still pending. WBC is negative. On clear liquid diet, not tolerating well. No fever, chills, night sweats. On physical examination, she appears comfortable in no apparent distress. Vitals as are stable. Blood pressure is 132/86, pulse rate 84 per minute and afebrile. HEENT examination unremarkable. Conjunctivae pink. Sclerae anicteric. Oral cavity, no lesions. NECK: No JVD or lymph node enlargement. Chest was clear to auscultation. HEART: Regular rate and rhythm. ABDOMEN: Soft. Mild tenderness in the epigastric and lower quadrant area. EXTREMITIES: No pedal edema. SKIN: No rashes. NEURO: Alert and oriented x3. No focal deficits. LABS: WBC 4.1, hemoglobin 10.5, platelets are 208. Basic metabolic panel is within normal limits. IMPRESSION: This is a lady who presents to the hospital with abdominal pain, nausea, vomiting, diarrhea, and intermittent coffee-ground emesis on and off for the last couple of months' duration. Stool studies for C. difficile toxin and cultures are negative. CT of the abdomen showed mild thickening of the rectum. Otherwise unremarkable. Presently on empiric antibiotics. RECOMMENDATIONS: Will proceed with an EGD and colonoscopy tomorrow. Discussed with the patient the risks, benefits and complications of procedure and she is agreeable to it. Thank you for this consultation.
--- NOTE | 2016-09-01 13:36 | PN ---
Patient is still complaining of ( ) and abdominal pain, although sleeping comfortably when I went into the room. The patient is otherwise clinically doing well. REVIEW OF SYSTEMS: CARDIOVASCULAR: No chest pain, no orthopnea, no PND, no palpitations. PULMONARY: Denied any shortness of breath. No cough or hemoptysis. GASTROINTESTINAL: No diarrhea, nausea or vomiting. No abdominal pain. Normoactive bowel sounds. NEUROLOGIC: No headaches, no weakness, no numbness. Medications were reviewed. PHYSICAL EXAMINATION: Temperature 97.92, pulse of 91, respiratory rate of 18, blood pressure is 110/50, saturating at 97% at room air. GENERAL: The patient is alert and oriented x3, not in any acute distress. Well developed, well nourished. HEENT: Pupils are round and equally reacting to light. EOMI. No scleral icterus. No conjunctival pallor. Normocephalic, atraumatic. No pharyngeal erythema. No thyromegaly. CARDIOVASCULAR: S1 and S2 present. No murmurs, rubs, or gallops. PULMONARY: Chest is clear to auscultation, no wheezing or crackles. ABDOMEN: , no rebound or rigidity. No significant tenderness was appreciated, Minimal tenderness in the right side of the abdomen in the mid right quadrant and upper quadrant CT. MUSCULOSKELETAL: No joint swelling or deformity. EXTREMITIES: No cyanosis, clubbing, or pedal edema. NEUROLOGICAL: Gross neurological examination did not reveal any focal deficits. SKIN: No rashes. LABORATORY DATA: CBC and no significant abnormality. ASSESSMENT AND PLAN: 1. Abdominal pain. Further evaluation with possibility of infectious colitis. My suspicion is low for that. Patient probably has narcotic seeking behavior. Anyways, patient had fever on admission. Patient will undergo colonoscopy tomorrow. 2. Bipolar disorder. 3. Posttraumatic stress disorder. 4. Gastroesophageal reflux disease. 5. Morbid obesity, tachycardia, resolved. PLAN: Continue with antibiotics, colonoscopy tomorrow. MTDD
[2016-09-01 15:41] VITALS: TEMP 97.2
[2016-09-01] MEDS ORDERED: PEG 3350-NA SULF,BICARB,CL/KCL 4,000 ML BOTTLE PO ONE (17:00)
[2016-09-01] MEDS: traZODone HCL 100 MG TAB PO SCH (21:02)
[2016-09-01 22:39] VITALS: BP 134/84; PULSE 83; RESP 16
[2016-09-02] MEDS: AMPICILLIN-SULBACTAM 3 GM in SODIUM CHLORIDE 0.9% 100 ML IVPB SCH ×3 (00:03→16:13)
[2016-09-02] MEDS: SODIUM CHLORIDE 0.9% 1,000 ML IV SCH ×4 (00:03→08:40)
[2016-09-02] MEDS: HYDROcodone/APAP 7.5-325MG 1 EACH TAB PO PRN ×2 (00:03→06:12)
[2016-09-02] MEDS: HEPARIN SODIUM,PORCINE 5,000 UNIT/ML 1 ML VIAL SQ SCH ×2 (00:04→08:42)
[2016-09-02] MEDS: ONDANSETRON 4 MG/2 ML VIAL IVP PRN (06:24)
[2016-09-02] MEDS ORDERED: LIDOCAINE 1% INJ 10MG/ML (20 ML MDV) ONE (07:13)
[2016-09-02] MEDS ORDERED: IV FLUID CONTINUATION 900 ML IV ONE (07:13)
[2016-09-02] MEDS ORDERED: PROPOFOL 10 MG/ML 20 ML VIAL IV ONE (07:13)
--- NOTE | 2016-09-02 07:32 | P.PCN ---
Date of Procedure: 09/02/16 Procedure(s) Performed: Brief history: Patient is a pleasant 26-year-old white female, scheduled for an elective upper endoscopy as well as colonoscopy as a part of evaluation of abdominal pain, nausea and vomiting as well as coffee-ground emesis and intermittent diarrhea for the on-and-off for the last [address] of the abdomen done during this hospitalization showed evidence of mild inflammation in the rectum consistent with proctitis. Because of the ongoing symptoms despite conservative approach she is symptomatic and hence she is scheduled for an upper endoscopy as well as colonoscopy today. Procedure performed: Esophagogastroduodenoscopy and biopsy Colonoscopy with biopsy Preoperative diagnosis: Edmund pain, nausea, vomiting and coffee-ground emesis Change in bowel habits and abdominal pain Anesthesia: MAC Procedure: After informed consent was obtained from the patient was brought into the endoscopy unit and IV sedation was administered by anesthesia under continuous monitoring. Initially upper endoscopy was done. The Olympus GF 160 video endoscope was inserted inserted into the mouth and esophagus intubated without any difficulty and was gradually advanced into the stomach and duodenum and carefully examined. The bulb and second part of the duodenum appeared normal. The scope was then withdrawn into the stomach adequately insufflated with air and upon careful examination the antrum had mild gastritis and biopsies were done from this area. The body, cardia and fundus appeared normal. The scope was then withdrawn into the esophagus. The GE junction was located at 40 cm to the incisors. It appeared regular with 2 superficial erosions consistent with LA grade B reflux esophagitis. Rest of the esophagus appeared normal. Patient tolerated the procedure well. At this time the patient continued to remain sedation. Initial digital rectal examination was normal. Olympus CF 160 video colonoscope was then inserted into the rectum and gradually advanced to the cecum without any difficulty. Careful examination was performed as the scope was gradually being withdrawn. The prep was excellent. Terminal ileum was intubated and 20 cm which was appeared normal. Biopsies were done from the terminal ileum. The cecum, ascending colon, transverse colon, descending colon, sigmoid colon and rectum appeared normal. Random biopsies were also done from the ascending and descending colon to rule out microscopic/collagenous colitis. Retroflexion was performed in the rectum and no lesions were noted. Patient tolerated the procedure well. Impression: 1. Upper endoscopy revealed mild antral gastritis and LA grade B reflux esophagitis 2. Colonoscopy revealed normal-appearing colon from rectum to cecum with no evidence of colitis or colorectal neoplasia. Recommendations: Findings of this examination were discussed with the patient as well as her family. She was advised to follow with the biopsy results. In the meantime and diet will be advanced as tolerated.
[2016-09-02] MEDS: lamoTRIgine 100 MG TAB PO SCH (08:41)
[2016-09-02] MEDS: PANTOPRAZOLE 40 MG/10 ML VIAL IVP SCH (08:42)
[2016-09-02] MEDS ORDERED: VENLAFAXINE HCL ER 150 MG CAP PO SCH (09:00)
--- NOTE | 2016-09-02 13:37 | P.DS ---
Providers Date of admission: 08/30/16 05:18 Expected date of discharge: 09/02/16 Attending physician: Matt Pino Consults: Dr. Nohemi Vyas, GI Primary care physician: Olvin Keenan [facility] Course: Final Diagnoses: 1 Abdominal pain, status post EGD and colonoscopy reporting mild antral gastritis and LA Grade B esophagitis, no evidence of colitis or colorectal neoplasia. 2. Bipolar disorder 3. Posttraumatic stress disorder 4. Gastroesophageal reflux disease 5. Obesity, BMI 46.6 Hospital course: This is a 26-year-old female admitted with abdominal pain, nausea vomiting, coffee-ground emesis, bloody stools ,intermittent diarrhea with fever of 101.4. CT of abdomen reported mild inflammation in the rectum consistent with proctitis. Maintained on Unasyn for potential infectious colitis. Evaluated by GI and patient underwent EGD and colonoscopy. Endoscopy reports mild antral gastritis and LA Grade B esophagitis, normal appearing colon from rectum to cecum, no evidence of colitis or colorectal neoplasia. Diet advanced, patient consumed 100% of soft meal with no nausea vomiting or diarrhea. Hemoglobin stable. Cleared for discharge by GI. Antibiotics deferred to GI ,if recommended. She is being discharged home in a stable condition with guarded prognosis. The impression and plan of care has been dictated as directed. Dr.: I performed a H&P examination of this patient and discussed the same with the dictator. I agree with the dictator's note. Any additional findings/opinions/ etc. will be noted. Patient Condition at Discharge: Stable Plan - Discharge Summary Discharge Medication List Venlafaxine HCl [Effexor XR] 150 mg PO DAILY 05/12/16 [History] traZODone HCL [Desyrel] 100 mg PO HS 05/12/16 [History] lamoTRIgine [LaMICtal] 100 mg PO QAM 08/12/16 [History] lamoTRIgine [LaMICtal] 150 mg PO HS 08/12/16 [History] Diazepam 5 mg PO TID PRN 08/13/16 [History] Ondansetron [Zofran ODT] 4 mg PO Q8HR PRN 08/29/16 [History] Pantoprazole Sodium [Protonix] 40 mg PO HS 08/29/16 [History] Follow up Appointment(s)/Referral(s): Olvin Keenan MD [Primary Care Provider] - 09/05/16 11:00 am Nohemi Vyas MD [STAFF PHYSICIAN] - 09/18/16 4:45 pm Ambulatory/Diagnostic Orders: Complete Blood Count w/diff [LAB.AMB] Time Frame: 3 Days, Location: Determined By Patient Activity/Diet/Wound Care/Special Instructions: Diet: soft food Activity: limited till F/U
== END 2016-09-02 16:35 | disposition home or self-care (01) ==
LOC: EC 22:18 → 5MS5E 08-30 05:18
PROVIDERS: ADMIT Hospitalist; ATTEND Hospitalist
DX: K21.0 Gastro-esophageal reflux disease with esophagitis (principal); K29.70 Gastritis, unspecified, without bleeding; F31.9 Bipolar disorder, unspecified; F43.10 Post-traumatic stress disorder, unspecified; E66.01 Morbid (severe) obesity due to excess calories; Z68.42 Body mass index [BMI] 45.0-49.9, adult; Z90.49 Acquired absence of other specified parts of digestive tract; Z79.899 Other long term (current) drug therapy; Z87.442 Personal history of urinary calculi; F41.9 Anxiety disorder, unspecified; Z82.49 Family history of ischemic heart disease and other diseases of the circulatory system; Z83.3 Family history of diabetes mellitus; R00.0 Tachycardia, unspecified; R50.9 Fever, unspecified; R05 Cough; Z79.891 Long term (current) use of opiate analgesic; F39 Unspecified mood [affective] disorder
CPT/HCPCS: 96361 ×11; 96375 ×3; 96376 ×2; 96372; 96374; 99285; 36415 ×2; 93005; 85379; 88305; 80053; 80048; 85652; 83605; 84443; 85025; 85027; 85610; 85730; 86140; 82272; 81001; 88342; 81025; 87040; 87324; 87086; 87045; 87081; 87430; 87329; 89055; 87046; 87502; 71020; 74177; 45380; 43239; G0378 ×4; J2060; J2270 ×2; J0500; J1644 ×3; J2405 ×5; J2001; J1170; Q9967; J0295 ×4; J2704; C9113 ×4

== ENCOUNTER → 2016-09-04 | Outpatient (CLI) | payer OTHER ==
[2016-09-04 13:20] LABS: Basophils % (A) 1 %; CH 25.5; CHCM 32.5; Eosinophils # (A) 0.3 k/uL (0-0.7); Eosinophils % (A) 5 %; HCT 37.8 % (34.0-46.0); HDW 3.11; HGB 12.5 gm/dL (11.4-16.0); Luc # (Auto) 0.11; Luc % (Auto) 2; Lymphocytes # (A) 1.9 k/uL (1.0-4.8); Lymphocytes % (A) 27 %; MCH 25.9 pg (25.0-35.0); MCV 78.5 fL (80.0-100.0); Mean Platelet Volume 6.5; Monocytes # (A) 0.3 k/uL (0-1.0); Monocytes % (A) 4 %; Neutrophils # (A) 4.2 k/uL (1.3-7.7); Neutrophils % (A) 61 %; RBC 4.82 m/uL (3.80-5.40); RDW 15.1 % (11.5-15.5); WBC 6.8 k/uL (3.8-10.6); WBC (Perox) 6.43
== END | disposition home or self-care (01) ==
LOC: LABWHC1 12:47
PROVIDERS: ATTEND Nurse Practitioner
DX: R10.9 Unspecified abdominal pain (principal); K29.70 Gastritis, unspecified, without bleeding; K21.9 Gastro-esophageal reflux disease without esophagitis
CPT/HCPCS: 36415; 85025

== ENCOUNTER 2016-10-27 15:50 | Emergency (ER) | payer OTHER ==
[2016-10-27 17:18] LABS: Appearance,Urine Cloudy (Clear); Bacteria,Urine Occasional /hpf; Bilirubin,Urine Negative (Negative); Glucose,Urine (UA) Negative (Negative); Ketones,Urine Negative (Negative); Leukocyte Esterase,Urine Negative (Negative); Mucus,Urine Rare /hpf; Nitrite,Urine Negative (Negative); PH, Urine 6.5 (5.0-8.0); Particle Count 3502; Protein,Urine Negative (Negative); RBC,Urine 2 /hpf (0-5); Specific Gravity,Urine 1.022 (1.001-1.035); Squamous Epithelial Cell,Urine 3 /hpf (0-4); UA Billing (MACRO vs. MICRO) MICRO; WBC,Urine 1 /hpf (0-5)
--- NOTE | 2016-10-27 17:35 | ED ---
General Adult HPI - General Chief complaint: Abdominal Pain Stated complaint: kidney pain Time Seen by Provider: 10/27/16 16:34 Source: patient Mode of arrival: ambulatory Limitations: no limitations - History of Present Illness Initial comments: 26-year-old female presenting with a one-day history of bilateral flank and low back pain. Patient denies fever or chills. Denies any trauma. Denies any twisting injury. Denies abdominal pain. Denies vomiting or diarrhea. She does state she has had some mild nausea. Patient denies any dysuria but states she has had some urinary frequency. Patient has past history of bipolar. Anxiety. Denies chest pain or shortness of breath. Last bowel movement was today and was normal. - Related Data Home Medications Medication Instructions Recorded Confirmed Venlafaxine HCl [Effexor XR] 150 mg PO DAILY 05/12/16 10/27/16 traZODone HCL [Desyrel] 100 mg PO HS 05/12/16 10/27/16 lamoTRIgine [LaMICtal] 100 mg PO QAM 08/12/16 10/27/16 lamoTRIgine [LaMICtal] 150 mg PO HS 08/12/16 10/27/16 Diazepam 5 mg PO TID PRN 08/13/16 10/27/16 Loratadine [Claritin] 10 mg PO DAILY PRN 10/27/16 10/27/16 Omeprazole [PriLOSEC] 20 mg PO AC-BRKFST 10/27/16 10/27/16 Allergies Allergy/AdvReac Type Severity Reaction Status Date / Time No Known Allergies Allergy Verified 10/27/16 17:11 Review of Systems ROS Statement: Those systems with pertinent positive or pertinent negative responses have been documented in the HPI. ROS Other: All systems not noted in ROS Statement are negative. Respiratory: Denies: cough Cardiovascular: Denies: chest pain Endocrine: Denies: fatigue Gastrointestinal: Reports: nausea. Denies: abdominal pain, vomiting, diarrhea Past Medical History Past Medical History: No Reported History, GERD/Reflux Additional Past Medical History / Comment(s): gallstones, kidney stones, D&C History of Any Multi-Drug Resistant Organisms: None Reported Past Surgical History: Section, Cholecystectomy, Tubal Ligation Additional Past Surgical History / Comment(s): neck biopsy Past Anesthesia/Blood Transfusion Reactions: No Reported Reaction Past Psychological History: Anxiety, Bipolar, Depression, PTSD Smoking Status: Never smoker Past Alcohol Use History: None Reported Past Drug Use History: None Reported - Past Family History Mother Family Medical History: Diabetes Mellitus, Hyperlipidemia, Hypertension, Myocardial Infarction ([place]) General Exam Limitations: no limitations General appearance: alert, in no apparent distress Head exam: Present: atraumatic Eye exam: Present: normal appearance, PERRL ENT exam: Present: normal exam, mucous membranes moist Neck exam: Present: full ROM. Absent: tenderness Respiratory exam: Present: normal lung sounds bilaterally. Absent: respiratory distress Cardiovascular Exam: Present: regular rate, normal rhythm GI/Abdominal exam: Present: soft, other (Patient does have bilateral CVA tenderness and lumbar paraspinal tenderness to palpation. There is no midline tenderness along the spine.). Absent: distended, tenderness, guarding, rebound Extremities exam: Present: normal inspection, normal capillary refill. Absent: pedal edema Back exam: Present: normal inspection, full ROM, tenderness (Bilateral paraspinal lumbar tenderness), CVA tenderness (L), paraspinal tenderness. Absent: muscle spasm, rash noted Neurological exam: Present: alert, oriented X3, CN II-XII intact. Absent: motor sensory deficit Psychiatric exam: Present: normal affect, normal mood Skin exam: Present: warm, dry Course Vital Signs 10/27/16 15:59 Temperature 98.1 F Pulse Rate 100 Respiratory 20 Rate Blood Pressure 150/116 O2 Sat by Pulse 98 Oximetry Medical Decision Making - Medical Decision Making This female presenting with atraumatic low back pain and bilateral flank pain. Patient has a history of UTI. Denies fever or chills. Denies nausea or vomiting. Patient has no neurological complaints in the lower extremities. No bowel or bladder incontinence. Patient is tender on examination both the bilateral CVA as well as lumbar paraspinal region. There is no midline tenderness. Urinalysis is negative for signs of infection. Pain was likely from low back strain versus obesity. Patient will follow-up with her primary care physician regarding her low back pain. Patient and her mother are agreeable with this plan. She will take Tylenol [id number] for pain. - Lab Data Lab Results 10/27/16 10/27/16 Range/Units 17:09 17:09 Urine Color Yellow Urine Appearance Cloudy H (Clear) Urine pH 6.5 (5.0-8.0) Ur Specific [place] 1.022 (1.001-1.035) Urine Protein Negative (Negative) Urine Glucose (UA) Negative (Negative) Urine Ketones Negative (Negative) Urine Blood Negative (Negative) Urine Nitrite Negative (Negative) Urine Bilirubin Negative (Negative) Urine Urobilinogen 2.0 (<2.0) mg/dL Ur Leukocyte Esterase Negative (Negative) Urine RBC 2 (0-5) /hpf Urine WBC 1 (0-5) /hpf Ur Squamous Epith Cells 3 (0-4) /hpf Urine Bacteria Occasional H (None) /hpf Urine Mucus Rare H (None) /hpf Urine HCG, Qual Not Detected (Not Detectd) Disposition Clinical Impression: Back pain Disposition: HOME SELF-CARE Condition: Good Instructions: Acute Low Back Pain (ED) Additional Instructions: Patient will follow up with primary care physician. She can return to the emergency department with worsening symptoms. Referrals: Olvin Keenan MD [Primary Care Provider] - 1-2 days Time of Disposition: 17:35
[2016-10-27 17:53] VITALS: BP 125/70; PULSE 92; RESP 18; TEMP 98.4
== END 2016-10-27 17:53 | disposition home or self-care (01) ==
LOC: EC 15:50
DX: M54.5 Low back pain (principal); R10.9 Unspecified abdominal pain; K21.9 Gastro-esophageal reflux disease without esophagitis; F43.10 Post-traumatic stress disorder, unspecified; F31.9 Bipolar disorder, unspecified; F41.9 Anxiety disorder, unspecified; Z79.899 Other long term (current) drug therapy; Z87.442 Personal history of urinary calculi; Z90.49 Acquired absence of other specified parts of digestive tract
CPT/HCPCS: 81001; 81025; 99284

== ENCOUNTER 2016-11-18 16:57 | Emergency (ER) | payer OTHER ==
[2016-11-18 17:10] VITALS: TEMP 98.4
[2016-11-18] MEDS ORDERED: ESOMEPRAZOLE 20 MG in SODIUM CHLORIDE 0.9% 50 ML IVPB STA (17:19)
[2016-11-18] MEDS ORDERED: ONDANSETRON 4 MG/2 ML VIAL IVP STA (17:19)
[2016-11-18] MEDS ORDERED: SODIUM CHLORIDE 0.9% 1,000 ML IV STA ×2 (17:19)
--- NOTE | 2016-11-18 17:48 | ED ---
General Adult HPI - General Chief complaint: Recheck/Abnormal Lab/Rx Stated complaint: Blood In Vomit/Stool Time Seen by Provider: 11/18/16 17:11 Source: patient, RN notes reviewed Mode of arrival: ambulatory Limitations: no limitations - History of Present Illness Initial comments: Patient 26-year-old female who presents emergency room today with chief complaint of nausea vomiting diarrhea over the last 4 months. Does admit that she's seeing blood in both emesis and stool. Does admit that she's follow-up GI had both upper and lower scopes performed. States that she still expresses any symptoms. States her scopes were negative. States she was on Zofran but is no longer taking this. States she did have bowel movement today where she saw some blood. She does admit to feeling nauseous. Denies any other complaints or symptoms at this time. Patient denies any recent fever, chills, shortness of breath, chest pain, back pain, numbness or tingling, dysuria or hematuria, constipation or diarrhea, headaches or visual changes, or any other complaints. - Related Data Home Medications Medication Instructions Recorded Confirmed Diazepam 5 mg PO TID PRN 08/13/16 11/18/16 Omeprazole 40 mg PO HS 11/18/16 11/18/16 Previous Rx's Medication Instructions Recorded Ondansetron Odt [Zofran ODT] 4 mg PO Q8HR PRN #20 tab 11/18/16 Allergies Allergy/AdvReac Type Severity Reaction Status Date / Time No Known Allergies Allergy Verified 11/18/16 18:01 Review of Systems ROS Statement: Those systems with pertinent positive or pertinent negative responses have been documented in the HPI. ROS Other: All systems not noted in ROS Statement are negative. Past Medical History Past Medical History: No Reported History, GERD/Reflux Additional Past Medical History / Comment(s): gallstones, kidney stones, D&C History of Any Multi-Drug Resistant Organisms: None Reported Past Surgical History: Section, Cholecystectomy, Tubal Ligation Additional Past Surgical History / Comment(s): neck biopsy Past Anesthesia/Blood Transfusion Reactions: No Reported Reaction Past Psychological History: Anxiety, Bipolar, Depression, PTSD Smoking Status: Never smoker Past Alcohol Use History: None Reported Past Drug Use History: None Reported - Past Family History Mother Family Medical History: Diabetes Mellitus, Hyperlipidemia, Hypertension, Myocardial Infarction ([place]) General Exam - General Exam Comments Initial Comments: General: The patient is awake and alert, in no distress, and does not appear acutely ill. Eye: Pupils are equal, round and reactive to light, extra-ocular movements are intact. No nystagmus. There is normal conjunctiva bilaterally. No signs of icterus. Ears, nose, mouth and throat: There are moist mucous membranes and no oral lesions. Neck: The neck is supple, there is no tenderness or JVD. Cardiovascular: There is a regular rate and rhythm. No murmur, rub or gallop is appreciated. Respiratory: Lungs are clear to auscultation, respirations are non-labored, breath sounds are equal. No wheezes, stridor, rales, or rhonchi. Gastrointestinal: Soft, non-distended, non-tender abdomen without masses or organomegaly noted. There is no rebound or guarding present. No CVA tenderness. Bowel sounds are unremarkable. Musculoskeletal: Normal ROM, no tenderness. Strength 5/5. Sensation intact. Pulses equal bilaterally 2+. Neurological: A&O x 3. CN II-XII intact, There are no obvious motor or sensory deficits. Coordination appears grossly intact. Speech is normal. Skin: Skin is warm and dry and no rashes or lesions are noted. Psychiatric: Cooperative, appropriate mood & affect, normal judgment. : YOUNG [place] present. Normal Rectal tone. No red blood on exam Limitations: no limitations Course Vital Signs 11/18/16 17:06 Temperature 98.4 F Pulse Rate 115 H Respiratory 17 Rate Blood Pressure 135/97 Medical Decision Making - Medical Decision Making Patient reexamined at this time shows no signs of distress. Patient is guaiac positive. Patient hemoglobin 12.8. Patient has seen GI in the past. Has had both upper and lower scopes performed.Case discussed in detail with attending physician Dr. Verma. Patient will be discharged home advised continue Prilosec given Zofran to go home with. Advised return for any other concerns. - Lab Data Result diagrams: 11/18/16 17:38 11/18/16 17:38 Lab Results 11/18/16 11/18/16 11/18/16 Range/Units 17:38 17:38 17:38 WBC 7.1 (3.8-10.6) k/uL RBC 4.82 (3.80-5.40) m/uL Hgb 12.8 (11.4-16.0) gm/dL Hct 37.6 (34.0-46.0) % MCV 78.1 L (80.0-100.0) fL MCH 26.6 (25.0-35.0) pg MCHC 34.0 (31.0-37.0) g/dL RDW 14.0 (11.5-15.5) % Plt Count 272 (150-450) k/uL Neutrophils % 62 % Lymphocytes % 26 % Monocytes % 5 % Eosinophils % 5 % Basophils % 1 % Neutrophils # 4.4 (1.3-7.7) k/uL Lymphocytes # 1.9 (1.0-4.8) k/uL Monocytes # 0.4 (0-1.0) k/uL Eosinophils # 0.3 (0-0.7) k/uL Basophils # 0.0 (0-0.2) k/uL PT 10.1 (9.0-12.0) sec INR 1.0 (<1.2) APTT 22.5 (22.0-30.0) sec Sodium 141 (137-145) mmol/L Potassium 4.1 (3.5-5.1) mmol/L Chloride 108 H (98-107) mmol/L Carbon Dioxide 23 (22-30) mmol/L Anion Gap 10 mmol/L BUN 13 (7-17) mg/dL Creatinine 0.61 (0.52-1.04) mg/dL Est GFR (MDRD) Af Amer >60 (>60 ml/min/1.73 sqM) Est GFR (MDRD) Non-Af >60 (>60 ml/min/1.73 sqM) Glucose 97 (74-99) mg/dL Calcium 8.9 (8.4-10.2) mg/dL Total Bilirubin 0.6 (0.2-1.3) mg/dL AST 23 (14-36) U/L ALT 36 (9-52) U/L Alkaline Phosphatase 121 (38-126) U/L Total Protein 6.3 (6.3-8.2) g/dL Albumin 3.6 (3.5-5.0) g/dL Lipase (23-300) U/L Urine Color Urine Appearance (Clear) Urine pH (5.0-8.0) Ur Specific [place] (1.001-1.035) Urine Protein (Negative) Urine Glucose (UA) (Negative) Urine Ketones (Negative) Urine Blood (Negative) Urine Nitrite (Negative) Urine Bilirubin (Negative) Urine Urobilinogen (<2.0) mg/dL Ur Leukocyte Esterase (Negative) Urine RBC (0-5) /hpf Urine WBC (0-5) /hpf Ur Squamous Epith Cells (0-4) /hpf Urine Bacteria (None) /hpf Urine Mucus (None) /hpf Urine HCG, Qual (Not Detectd) Stool Occult Blood (Negative) 11/18/16 11/18/16 11/18/16 Range/Units 17:38 17:38 18:01 WBC (3.8-10.6) k/uL RBC (3.80-5.40) m/uL Hgb (11.4-16.0) gm/dL Hct (34.0-46.0) % MCV (80.0-100.0) fL MCH (25.0-35.0) pg MCHC (31.0-37.0) g/dL RDW (11.5-15.5) % Plt Count (150-450) k/uL Neutrophils % % Lymphocytes % % Monocytes % % Eosinophils % % Basophils % % Neutrophils # (1.3-7.7) k/uL Lymphocytes # (1.0-4.8) k/uL Monocytes # (0-1.0) k/uL Eosinophils # (0-0.7) k/uL Basophils # (0-0.2) k/uL PT (9.0-12.0) sec INR (<1.2) APTT (22.0-30.0) sec Sodium (137-145) mmol/L Potassium (3.5-5.1) mmol/L Chloride (98-107) mmol/L Carbon Dioxide (22-30) mmol/L Anion Gap mmol/L BUN (7-17) mg/dL Creatinine (0.52-1.04) mg/dL Est GFR (MDRD) Af Amer (>60 ml/min/1.73 sqM) Est GFR (MDRD) Non-Af (>60 ml/min/1.73 sqM) Glucose (74-99) mg/dL Calcium (8.4-10.2) mg/dL Total Bilirubin (0.2-1.3) mg/dL AST (14-36) U/L ALT (9-52) U/L Alkaline Phosphatase (38-126) U/L Total Protein (6.3-8.2) g/dL Albumin (3.5-5.0) g/dL Lipase 47 (23-300) U/L Urine Color Urine Appearance (Clear) Urine pH (5.0-8.0) Ur Specific [place] (1.001-1.035) Urine Protein (Negative) Urine Glucose (UA) (Negative) Urine Ketones (Negative) Urine Blood (Negative) Urine Nitrite (Negative) Urine Bilirubin (Negative) Urine Urobilinogen (<2.0) mg/dL Ur Leukocyte Esterase (Negative) Urine RBC (0-5) /hpf Urine WBC (0-5) /hpf Ur Squamous Epith Cells (0-4) /hpf Urine Bacteria (None) /hpf Urine Mucus (None) /hpf Urine HCG, Qual Not Detected (Not Detectd) Stool Occult Blood Positive H (Negative) 11/18/16 Range/Units 18:01 WBC (3.8-10.6) k/uL RBC (3.80-5.40) m/uL Hgb (11.4-16.0) gm/dL Hct (34.0-46.0) % MCV (80.0-100.0) fL MCH (25.0-35.0) pg MCHC (31.0-37.0) g/dL RDW (11.5-15.5) % Plt Count (150-450) k/uL Neutrophils % % Lymphocytes % % Monocytes % % Eosinophils % % Basophils % % Neutrophils # (1.3-7.7) k/uL Lymphocytes # (1.0-4.8) k/uL Monocytes # (0-1.0) k/uL Eosinophils # (0-0.7) k/uL Basophils # (0-0.2) k/uL PT (9.0-12.0) sec INR (<1.2) APTT (22.0-30.0) sec Sodium (137-145) mmol/L Potassium (3.5-5.1) mmol/L Chloride (98-107) mmol/L Carbon Dioxide (22-30) mmol/L Anion Gap mmol/L BUN (7-17) mg/dL Creatinine (0.52-1.04) mg/dL Est GFR (MDRD) Af Amer (>60 ml/min/1.73 sqM) Est GFR (MDRD) Non-Af (>60 ml/min/1.73 sqM) Glucose (74-99) mg/dL Calcium (8.4-10.2) mg/dL Total Bilirubin (0.2-1.3) mg/dL AST (14-36) U/L ALT (9-52) U/L Alkaline Phosphatase (38-126) U/L Total Protein (6.3-8.2) g/dL Albumin (3.5-5.0) g/dL Lipase (23-300) U/L Urine Color Yellow Urine Appearance Cloudy H (Clear) Urine pH 6.0 (5.0-8.0) Ur Specific [place] 1.022 (1.001-1.035) Urine Protein Trace H (Negative) Urine Glucose (UA) Negative (Negative) Urine Ketones Negative (Negative) Urine Blood Moderate H (Negative) Urine Nitrite Negative (Negative) Urine Bilirubin Negative (Negative) Urine Urobilinogen 2.0 (<2.0) mg/dL Ur Leukocyte Esterase Negative (Negative) Urine RBC 2 (0-5) /hpf Urine WBC 2 (0-5) /hpf Ur Squamous Epith Cells 12 H (0-4) /hpf Urine Bacteria Occasional H (None) /hpf Urine Mucus Occasional H (None) /hpf Urine HCG, Qual (Not Detectd) Stool Occult Blood (Negative) Disposition Clinical Impression: Melena Disposition: HOME SELF-CARE Condition: Good Instructions: Hematemesis (ED) Additional Instructions: Please follow-up with GI specialist or family doctor over the next 2 days. Please continue Prilosec and usemedication as prescribed. Please return to emergency room if symptoms increase or worsen or for any other concerns. Prescriptions: Ondansetron Odt [Zofran ODT] 4 mg PO Q8HR PRN #20 tab PRN Reason: Nausea Referrals: Olvin Keenan MD [Primary Care Provider] - 1-2 days Nohemi Vyas MD [STAFF PHYSICIAN] - 1-2 days Time of Disposition: 19:06
[2016-11-18 17:55] LABS: Basophils % (A) 1 %; CH 25.9; CHCM 33.2; Eosinophils # (A) 0.3 k/uL (0-0.7); Eosinophils % (A) 5 %; HCT 37.6 % (34.0-46.0); HDW 2.95; HGB 12.8 gm/dL (11.4-16.0); Luc # (Auto) 0.14; Luc % (Auto) 2; Lymphocytes # (A) 1.9 k/uL (1.0-4.8); Lymphocytes % (A) 26 %; MCH 26.6 pg (25.0-35.0); MCV 78.1 fL (80.0-100.0); Mean Platelet Volume 6.7; Monocytes # (A) 0.4 k/uL (0-1.0); Monocytes % (A) 5 %; Neutrophils # (A) 4.4 k/uL (1.3-7.7); Neutrophils % (A) 62 %; RBC 4.82 m/uL (3.80-5.40); WBC 7.1 k/uL (3.8-10.6); WBC (Perox) 7.13
[2016-11-18 17:59] LABS: Partial Thromboplastin Time 22.5 sec (22.0-30.0); Prothrombin Time 10.1 sec (9.0-12.0)
[2016-11-18 18:11] LABS: ALT 36 U/L (9-52); AST 23 U/L (14-36); Alkaline Phosphatase 121 U/L (38-126); Anion Gap 10 mmol/L; Blood Urea Nitrogen 13 mg/dL (7-17); Calcium 8.9 mg/dL (8.4-10.2); Carbon Dioxide 23 mmol/L (22-30); Chloride 108 mmol/L (98-107); Glucose 97 mg/dL (74-99); Non-African American GFR(MDRD) >60 (>60 ml/min/1.73 sqM); Potassium 4.1 mmol/L (3.5-5.1); Sodium 141 mmol/L (137-145); Total Bilirubin 0.6 mg/dL (0.2-1.3); Total Protein 6.3 g/dL (6.3-8.2)
[2016-11-18 18:15] LABS: Appearance,Urine Cloudy (Clear); Bacteria,Urine Occasional /hpf; Bilirubin,Urine Negative (Negative); Glucose,Urine (UA) Negative (Negative); Ketones,Urine Negative (Negative); Leukocyte Esterase,Urine Negative (Negative); Mucus,Urine Occasional /hpf; Nitrite,Urine Negative (Negative); Particle Count 6116; Protein,Urine Trace (Negative); RBC,Urine 2 /hpf (0-5); Specific Gravity,Urine 1.022 (1.001-1.035); Squamous Epithelial Cell,Urine 12 /hpf (0-4); UA Billing (MACRO vs. MICRO) MICRO; WBC,Urine 2 /hpf (0-5)
[2016-11-18 19:42] VITALS: BP 157/70; PULSE 97; RESP 16
== END 2016-11-18 19:42 | disposition home or self-care (01) ==
LOC: EC 16:57
DX: K92.1 Melena (principal); K92.0 Hematemesis; R19.7 Diarrhea, unspecified; K21.9 Gastro-esophageal reflux disease without esophagitis; Z79.899 Other long term (current) drug therapy; Z90.49 Acquired absence of other specified parts of digestive tract
CPT/HCPCS: 99284; 96374; 96361 ×2; 36415; 80053; 83690; 85025; 85610; 85730; 82272; 81001; 81025; J2405

== ENCOUNTER 2017-02-22 20:02 | Inpatient (IN) | payer OTHER ==
[2017-02-22] MEDS ORDERED: SODIUM CHLORIDE 0.9% 1,000 ML IV STA (20:26)
[2017-02-22] MEDS ORDERED: FAMOTIDINE 20 MG/2 ML VIAL IV STA (20:27)
--- NOTE | 2017-02-22 20:40 | ED ---
GI Bleed HPI - General Chief complaint: GI Bleed Stated complaint: vomiting blood Time Seen by Provider: 02/22/17 20:21 Source: patient, RN notes reviewed Mode of arrival: ambulatory Limitations: no limitations - History of Present Illness Initial comments: This is a 26-year-old female history of prior upper GI bleed who states he had the onset of vomiting bright red blood 3 times just prior to admission she had epigastric pain some lightheadedness dizziness no fevers chills sweats no blood per rectum no dark black stools she has had darker stools however. She had a workup including scopes nothing was found on a previous event. MD complaint: gross hematemesis - Related Data Home Medications Medication Instructions Recorded Confirmed Diazepam 5 mg PO TID PRN 08/13/16 11/18/16 Omeprazole 40 mg PO HS 11/18/16 11/18/16 Previous Rx's Medication Instructions Recorded Ondansetron Odt [Zofran ODT] 4 mg PO Q8HR PRN #20 tab 11/18/16 Allergies Allergy/AdvReac Type Severity Reaction Status Date / Time No Known Allergies Allergy Verified 02/22/17 20:10 Review of Systems ROS Statement: Those systems with pertinent positive or pertinent negative responses have been documented in the HPI. ROS Other: All systems not noted in ROS Statement are negative. Past Medical History Past Medical History: No Reported History, GERD/Reflux Additional Past Medical History / Comment(s): gallstones, kidney stones, D&C History of Any Multi-Drug Resistant Organisms: None Reported Past Surgical History: Section, Cholecystectomy, Tubal Ligation Additional Past Surgical History / Comment(s): neck biopsy Past Anesthesia/Blood Transfusion Reactions: No Reported Reaction Past Psychological History: Anxiety, Bipolar, Depression, PTSD Smoking Status: Never smoker Past Alcohol Use History: None Reported Past Drug Use History: None Reported - Past Family History Mother Family Medical History: Diabetes Mellitus, Hyperlipidemia, Hypertension, Myocardial Infarction ([place]) General Exam - General Exam Comments Initial Comments: This is a well-developed well-nourished morbidly obese female Limitations: no limitations General appearance: alert, in no apparent distress Head exam: Present: atraumatic, normocephalic, normal inspection Eye exam: Present: normal appearance, PERRL, EOMI. Absent: scleral icterus, conjunctival injection, periorbital swelling ENT exam: Present: normal exam, mucous membranes moist Neck exam: Present: normal inspection. Absent: tenderness, meningismus, lymphadenopathy Respiratory exam: Present: normal lung sounds bilaterally. Absent: respiratory distress, wheezes, rales, rhonchi, stridor Cardiovascular Exam: Present: regular rate, normal rhythm, normal heart sounds. Absent: systolic murmur, diastolic murmur, rubs, gallop, clicks GI/Abdominal exam: Present: soft, tenderness (Mild epigastric chest palpation), normal bowel sounds. Absent: distended, guarding, rebound, rigid, bruit, pulsatile mass, hernia Rectal exam: Present: normal inspection, heme (-) stool. Absent: hemorrhoids, mass, tenderness Extremities exam: Present: normal inspection, full ROM, normal capillary refill. Absent: tenderness, pedal edema, joint swelling, calf tenderness Back exam: Present: normal inspection Neurological exam: Present: alert, oriented X3, CN II-XII intact Psychiatric exam: Present: normal affect, normal mood Skin exam: Present: warm, dry, intact, normal color. Absent: rash Course Vital Signs 02/22/17 20:07 Temperature 100.6 F H Pulse Rate 109 H Respiratory 16 Rate Blood Pressure 138/83 O2 Sat by Pulse 100 Oximetry - Reevaluation(s) Reevaluation #1: 02/22/17 20:43 The rectal exam was done on the patient with a female nurse present(Lazara) Reevaluation #2: 02/22/17 21:01 The patient's care will be endorsed to Dr. Rivera and her shift change. He will make the final disposition Reevaluation #3: 02/22/17 21:18 The patient's disposition was performed by me. Medical Decision Making - Medical Decision Making I did discuss the findings with the patient and with her mother. Patient will be admitted for observation and evaluation of upper GI bleed Dr. Vyas has seen the patient in the past and will be consulted - Lab Data Result diagrams: 02/22/17 20:30 02/22/17 20:30 Lab Results 02/22/17 02/22/17 02/22/17 Range/Units 20:30 20:30 20:30 WBC 10.3 (3.8-10.6) k/uL RBC 4.80 (3.80-5.40) m/uL Hgb 11.4 (11.4-16.0) gm/dL Hct 37.6 (34.0-46.0) % MCV 78.3 L (80.0-100.0) fL MCH 23.7 L (25.0-35.0) pg MCHC 30.3 L (31.0-37.0) g/dL RDW 12.9 (11.5-15.5) % Plt Count 372 (150-450) k/uL Neutrophils % 63 % Lymphocytes % 28 % Monocytes % 5 % Eosinophils % 3 % Basophils % 1 % Neutrophils # 6.5 (1.3-7.7) k/uL Lymphocytes # 2.9 (1.0-4.8) k/uL Monocytes # 0.5 (0-1.0) k/uL Eosinophils # 0.3 (0-0.7) k/uL Basophils # 0.1 (0-0.2) k/uL Hypochromasia Marked Poikilocytosis Slight PT (9.0-12.0) sec INR (<1.2) APTT (22.0-30.0) sec Sodium 143 (137-145) mmol/L Potassium 4.2 (3.5-5.1) mmol/L Chloride 108 H (98-107) mmol/L Carbon Dioxide 25 (22-30) mmol/L Anion Gap 10 mmol/L BUN 14 (7-17) mg/dL Creatinine 0.80 (0.52-1.04) mg/dL Est GFR (MDRD) Af Amer >60 (>60 ml/min/1.73 sqM) Est GFR (MDRD) Non-Af >60 (>60 ml/min/1.73 sqM) Glucose 91 (74-99) mg/dL Calcium 9.6 (8.4-10.2) mg/dL Total Bilirubin 0.4 (0.2-1.3) mg/dL AST 22 (14-36) U/L ALT 48 (9-52) U/L Alkaline Phosphatase 122 (38-126) U/L Total Protein 6.7 (6.3-8.2) g/dL Albumin 4.0 (3.5-5.0) g/dL Amylase 30 (30-110) U/L Lipase 102 (23-300) U/L Stool Occult Blood Negative (Negative) Blood Type Blood Type Recheck Antibody Screen Spec Expiration Date 02/22/17 02/22/17 Range/Units 20:30 20:30 WBC (3.8-10.6) k/uL RBC (3.80-5.40) m/uL Hgb (11.4-16.0) gm/dL Hct (34.0-46.0) % MCV (80.0-100.0) fL MCH (25.0-35.0) pg MCHC (31.0-37.0) g/dL RDW (11.5-15.5) % Plt Count (150-450) k/uL Neutrophils % % Lymphocytes % % Monocytes % % Eosinophils % % Basophils % % Neutrophils # (1.3-7.7) k/uL Lymphocytes # (1.0-4.8) k/uL Monocytes # (0-1.0) k/uL Eosinophils # (0-0.7) k/uL Basophils # (0-0.2) k/uL Hypochromasia Poikilocytosis PT 10.5 (9.0-12.0) sec INR 1.0 (<1.2) APTT 22.5 (22.0-30.0) sec Sodium (137-145) mmol/L Potassium (3.5-5.1) mmol/L Chloride (98-107) mmol/L Carbon Dioxide (22-30) mmol/L Anion Gap mmol/L BUN (7-17) mg/dL Creatinine (0.52-1.04) mg/dL Est GFR (MDRD) Af Amer (>60 ml/min/1.73 sqM) Est GFR (MDRD) Non-Af (>60 ml/min/1.73 sqM) Glucose (74-99) mg/dL Calcium (8.4-10.2) mg/dL Total Bilirubin (0.2-1.3) mg/dL AST (14-36) U/L ALT (9-52) U/L Alkaline Phosphatase (38-126) U/L Total Protein (6.3-8.2) g/dL Albumin (3.5-5.0) g/dL Amylase (30-110) U/L Lipase (23-300) U/L Stool Occult Blood (Negative) Blood Type B Positive Blood Type Recheck No Antibody Screen NEGATIVE Spec Expiration Date 02/25/2017 - 233 Disposition Clinical Impression: Upper GI bleed, Hematemesis Disposition: ADMITTED IP TO THIS [facility] Condition: Stable Referrals: Olvin Keenan MD [Primary Care Provider] - 1-2 days
[2017-02-22 20:45] LABS: Basophils # (A) 0.1 k/uL (0-0.2); Basophils % (A) 1 %; CH 23.7; CHCM 30.2; Eosinophils # (A) 0.3 k/uL (0-0.7); Eosinophils % (A) 3 %; HCT 37.6 % (34.0-46.0); HDW 3.64; HGB 11.4 gm/dL (11.4-16.0); Hypochromasia Marked; Luc # (Auto) 0.11; Luc % (Auto) 1; Lymphocytes # (A) 2.9 k/uL (1.0-4.8); Lymphocytes % (A) 28 %; MCH 23.7 pg (25.0-35.0); MCHC 30.3 g/dL (31.0-37.0); MCV 78.3 fL (80.0-100.0); Mean Platelet Volume 7.2; Monocytes # (A) 0.5 k/uL (0-1.0); Monocytes % (A) 5 %; Neutrophils # (A) 6.5 k/uL (1.3-7.7); Neutrophils % (A) 63 %; Poikilocytosis Slight; RDW 12.9 % (11.5-15.5); WBC 10.3 k/uL (3.8-10.6); WBC (Perox) 10.34
[2017-02-22 20:53] LABS: Partial Thromboplastin Time 22.5 sec (22.0-30.0); Prothrombin Time 10.5 sec (9.0-12.0)
[2017-02-22 20:56] LABS: ALT 48 U/L (9-52); AST 22 U/L (14-36); Alkaline Phosphatase 122 U/L (38-126); Amylase 30 U/L (30-110); Anion Gap 10 mmol/L; Blood Urea Nitrogen 14 mg/dL (7-17); Calcium 9.6 mg/dL (8.4-10.2); Carbon Dioxide 25 mmol/L (22-30); Chloride 108 mmol/L (98-107); Glucose 91 mg/dL (74-99); Non-African American GFR(MDRD) >60 (>60 ml/min/1.73 sqM); Potassium 4.2 mmol/L (3.5-5.1); Sodium 143 mmol/L (137-145); Total Bilirubin 0.4 mg/dL (0.2-1.3); Total Protein 6.7 g/dL (6.3-8.2)
--- NOTE | 2017-02-22 21:00 | XR ---
EXAMINATION TYPE: XR abdomen acute w cxr DATE OF EXAM: 02/22/2017 CLINICAL HISTORY: Left upper quadrant abdominal pain and vomiting blood today. TECHNIQUE: Single frontal view of chest is obtained. Supine and upright views of the abdomen are acq uired. COMPARISON: Chest x-ray August 30, 2016. CT abdomen and pelvis August 30, 2016 FINDINGS: The lungs are grossly clear without pleural effusion or pneumothorax. Cardiac silhouette size appears within normal limits. Osseous structures are intact. Gas is noted in nondistended small bowel loops. Gas and fecal material is seen in nondistended colon . Cholecystectomy clips are redemonstrated. Tubal ligation clips and pelvis are redemonstrated. Splee n remains prominent. No pneumoperitoneum or suspicious calcifications are identified. IMPRESSION: 1. No acute pulmonary process. 2. Overall nonobstructive bowel gas pattern. No significant change from prior studies.
[2017-02-22] MEDS ORDERED: HYDROmorphone 1 MG/ML 1 ML SYRINGE IVP STA (21:19)
[2017-02-22] MEDS ORDERED: NALOXONE 0.4 MG/ML 1 ML VIAL IV PRN (21:19)
[2017-02-22] MEDS: ONDANSETRON 4 MG/2 ML VIAL IVP PRN (21:34)
[2017-02-22] MEDS ORDERED: LORazepam 1 MG TAB PO PRN (23:31)
[2017-02-23] MEDS: ARIPiprazole 10 MG TAB PO SCH ×2 (00:27→21:03)
[2017-02-23] MEDS: HYDROmorphone 1 MG/ML 1 ML SYRINGE IVP PRN ×7 (00:27→21:01)
[2017-02-23] MEDS: SODIUM CHLORIDE 0.9% 1,000 ML IV SCH ×4 (00:32→23:29)
[2017-02-23 02:38] LABS: Basophils # (A) 0.1 k/uL (0-0.2); Basophils % (A) 1 %; CH 23.6; CHCM 29.6; Eosinophils # (A) 0.3 k/uL (0-0.7); Eosinophils % (A) 3 %; HCT 34.5 % (34.0-46.0); HDW 3.52; HGB 10.3 gm/dL (11.4-16.0); Hypochromasia Marked; Luc # (Auto) 0.09; Luc % (Auto) 1; Lymphocytes # (A) 2.6 k/uL (1.0-4.8); Lymphocytes % (A) 27 %; MCH 23.8 pg (25.0-35.0); MCHC 29.8 g/dL (31.0-37.0); MCV 79.9 fL (80.0-100.0); Monocytes # (A) 0.4 k/uL (0-1.0); Monocytes % (A) 4 %; Neutrophils # (A) 6.5 k/uL (1.3-7.7); Neutrophils % (A) 65 %; Poikilocytosis Slight; RBC 4.31 m/uL (3.80-5.40); WBC 9.9 k/uL (3.8-10.6); WBC (Perox) 9.76
[2017-02-23] MEDS: PANTOPRAZOLE 40 MG/10 ML VIAL IV SCH ×2 (08:33→23:29)
[2017-02-23 11:52] LABS: Basophils % (A) 1 %; CH 23.1; CHCM 29.9; Eosinophils # (A) 0.2 k/uL (0-0.7); Eosinophils % (A) 3 %; HDW 3.36; HGB 10.3 gm/dL (11.4-16.0); Hypochromasia Marked; Luc # (Auto) 0.06; Luc % (Auto) 1; Lymphocytes # (A) 1.9 k/uL (1.0-4.8); Lymphocytes % (A) 33 %; MCH 23.5 pg (25.0-35.0); MCHC 30.3 g/dL (31.0-37.0); MCV 77.5 fL (80.0-100.0); Mean Platelet Volume 7.8; Monocytes # (A) 0.2 k/uL (0-1.0); Monocytes % (A) 4 %; Neutrophils # (A) 3.4 k/uL (1.3-7.7); Neutrophils % (A) 59 %; RBC 4.38 m/uL (3.80-5.40); RDW 14.4 % (11.5-15.5); WBC 5.8 k/uL (3.8-10.6)
[2017-02-23] MEDS: ONDANSETRON 4 MG/2 ML VIAL IVP PRN (13:11)
[2017-02-23] MEDS ORDERED: RX INFO: IV CONTRAST WAS GIVEN 1 EACH MISC MISCELLANE PRN (15:49)
[2017-02-23] MEDS: IOHEXOL 350 MG/ML 25 ML BOTTLE (ORAL USE) PO PRN ×2 (16:09→17:07)
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
[2017-02-23 17:50] LABS: CH 23.1; CHCM 29.8; HCT 31.6 % (34.0-46.0); HGB 9.6 gm/dL (11.4-16.0); Hypochromasia Marked; MCH 23.7 pg (25.0-35.0); MCHC 30.4 g/dL (31.0-37.0); MCV 77.7 fL (80.0-100.0); Mean Platelet Volume 7.3; RBC 4.07 m/uL (3.80-5.40); RDW 14.3 % (11.5-15.5); WBC 6.8 k/uL (3.8-10.6)
--- NOTE | 2017-02-23 17:57 | CT ---
EXAMINATION TYPE: CT abdomen pelvis w con DATE OF EXAM: 02/23/2017 HISTORY: Vomiting blood. CT DLP: 2046.5mGycm Automated Exposure Control for Dose Reduction was Utilized. CONTRAST: CT scan of the abdomen and pelvis is performed with oral and with IV Contrast, patient injected with 100 mL of Omnipaque 300. COMPARISON: CT abdomen and pelvis August 30, 2016. FINDINGS: LUNG BASES: There is minimal residual linear scarring in the right lung base posteriorly. LIVER/GB: Cholecystectomy clips are redemonstrated. Liver remains diffusely low dense suggesting fatt y infiltration PANCREAS: No significant abnormality is seen. SPLEEN: Spleen remains mildly enlarged at 14.3 cm on long axis coronal image 62. ADRENALS: No significant abnormality is seen. KIDNEYS: No significant abnormality is seen. BOWEL: Oral contrast does not reach colonic level. Contrast seen in nondistended stomach and duodenal sweep. There is no suspicious small or large bowel dilatation. UTERUS/ADNEXA: Anteverted uterus is redemonstrated. Tubal ligation clips along the periphery are agai n seen. Oval low dense lesion right ovary is less prominent versus prior. LYMPH NODES: No greater than 1cm abdominal or pelvic lymph nodes are appreciated. OSSEOUS STRUCTURES: No significant abnormality is seen. OTHER: No significant additional abnormality is seen. IMPRESSION: No bowel obstruction is seen. No significant new or acute finding is seen to account for patient's clinical symptoms.
[2017-02-24] MEDS: HYDROmorphone 1 MG/ML 1 ML SYRINGE IVP PRN ×5 (00:07→14:02)
[2017-02-24 00:20] LABS: CHCM 29.7; HDW 3.39; HGB 9.7 gm/dL (11.4-16.0); Hypochromasia Marked; MCH 23.5 pg (25.0-35.0); MCHC 30.3 g/dL (31.0-37.0); MCV 77.4 fL (80.0-100.0); Mean Platelet Volume 7.1; RBC 4.14 m/uL (3.80-5.40); RDW 14.4 % (11.5-15.5); WBC 7.4 k/uL (3.8-10.6)
[2017-02-24] MEDS: SODIUM CHLORIDE 0.9% 1,000 ML IV SCH ×3 (06:41→21:28)
[2017-02-24] MEDS: PANTOPRAZOLE 40 MG/10 ML VIAL IV SCH ×2 (08:06→21:28)
[2017-02-24 08:46] LABS: CH 23.4; CHCM 29.2; HCT 33.1 % (34.0-46.0); HDW 3.52; HGB 9.8 gm/dL (11.4-16.0); Hypochromasia Marked; MCH 23.9 pg (25.0-35.0); MCHC 29.7 g/dL (31.0-37.0); MCV 80.4 fL (80.0-100.0); Mean Platelet Volume 6.9; Poikilocytosis Slight; RBC 4.12 m/uL (3.80-5.40); WBC 6.1 k/uL (3.8-10.6)
[2017-02-24] MEDS: traMADol 50 MG TAB PO PRN ×2 (15:12→21:27)
--- NOTE | 2017-02-24 17:16 | PN ---
PROGRESS NOTE DATE OF SERVICE: 02/24/2017 This 26-year-old woman who was admitted with vomiting also complaining of abdominal discomfort. The patient also had tachycardia. The patient apparently had a previous EGD done. The patient also had a CT scan of the abdomen pelvis yesterday. His abdomen and pelvis showed no bowel obstruction. The patient will be closely monitored at this time. Otherwise, gastroenterology on consult. PAST MEDICAL HISTORY: Reviewed. REVIEW OF SYSTEMS: CARDIOVASCULAR: No angina. RESPIRATORY: As mentioned. GI: As mentioned. : No dysuria. NERVOUS SYSTEM: No numbness or weakness. CURRENT MEDICATIONS: 1. Abilify 20 mg q.h.s. 2. Dilaudid 0.5 mg q.4h. 4. Ativan 1 mg t.i.d. p.r.n. 5. Narcan 0.2 q.2h p.r.n. 6. Zofran. 7. Protonix. 8. Ultram. PHYSICAL EXAM: Patient is alert, oriented x3. Pulse 90, blood pressure is 118/62, respirations 16, temperature 97.1, pulse ox 98% on room air. HEENT: Conjunctivae normal. Oral mucosa moist. NECK: No jugular venous distention. No carotid bruit. No lymph node enlargement. CARDIOVASCULAR: S1, S2. RESPIRATION: Breath sounds diminished at the bases. A few scattered rhonchi and crackles. ABDOMEN: Soft. Mild diffuse tenderness present. No guarding. No rigidity. No mass palpable. LEGS: No edema. NERVOUS SYSTEM: No focal deficits. LAB STUDIES: WBC 6.1, hemoglobin is 9.8. ASSESSMENT: 1. Abdominal pain, nausea and vomiting with upper gastrointestinal bleed. 2. Rule out acute gastritis. 3. Bipolar. 4. Cholecystectomy. 5. Posttraumatic stress disorder. 6. Obesity. RECOMMENDATIONS AND DISCUSSION: This 26-year-old woman who presented with multiple complex medical issues, we will monitor the patient closely. Continue the current management and symptomatic treatment. Otherwise at this time I recommend to continue with current medications and gastroenterology evaluation. Proton pump inhibitors. The patient might benefit from repeat endoscopy. Guarded prognosis. Further recommendations to follow. MMODL / IJN: [id number] / [id number]
[2017-02-24] MEDS: HYDROmorphone 0.5 MG/0.5 ML SYRINGE IVP PRN ×2 (18:05→22:20)
[2017-02-24] MEDS: ARIPiprazole 10 MG TAB PO SCH (21:28)
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
[2017-02-24 23:04] LABS: Appearance,Urine Clear (Clear); Bacteria,Urine Rare /hpf; Bilirubin,Urine Negative (Negative); Glucose,Urine (UA) Negative (Negative); Ketones,Urine Negative (Negative); Leukocyte Esterase,Urine Negative (Negative); Mucus,Urine Rare /hpf; Nitrite,Urine Negative (Negative); PH, Urine 5.5 (5.0-8.0); Particle Count 2513; Protein,Urine Negative (Negative); RBC,Urine 4 /hpf (0-5); Specific Gravity,Urine 1.009 (1.001-1.035); Squamous Epithelial Cell,Urine 1 /hpf (0-4); UA Billing (MACRO vs. MICRO) MICRO; Urobilinogen,Urine <2.0 mg/dL (<2.0); WBC,Urine 2 /hpf (0-5)
[2017-02-25] MEDS: HYDROmorphone 0.5 MG/0.5 ML SYRINGE IVP PRN ×5 (02:51→21:07)
[2017-02-25] MEDS: SODIUM CHLORIDE 0.9% 1,000 ML IV SCH ×3 (06:27→21:07)
[2017-02-25] MEDS: PANTOPRAZOLE 40 MG/10 ML VIAL IV SCH ×2 (07:35→21:07)
[2017-02-25 09:06] LABS: Basophils % (A) 1 %; CH 23.6; CHCM 29.6; Eosinophils # (A) 0.2 k/uL (0-0.7); Eosinophils % (A) 4 %; HCT 30.9 % (34.0-46.0); HDW 3.57; Hypochromasia Marked; Luc # (Auto) 0.04; Luc % (Auto) 1; Lymphocytes # (A) 1.5 k/uL (1.0-4.8); Lymphocytes % (A) 31 %; MCH 23.4 pg (25.0-35.0); MCHC 29.3 g/dL (31.0-37.0); MCV 79.9 fL (80.0-100.0); Monocytes # (A) 0.2 k/uL (0-1.0); Monocytes % (A) 5 %; Neutrophils # (A) 2.9 k/uL (1.3-7.7); Neutrophils % (A) 59 %; Poikilocytosis Slight; RBC 3.87 m/uL (3.80-5.40); RDW 13.2 % (11.5-15.5); WBC 4.9 k/uL (3.8-10.6); WBC (Perox) 5.06
[2017-02-25 09:27] LABS: Anion Gap 8 mmol/L; Blood Urea Nitrogen 5 mg/dL (7-17); Calcium 8.1 mg/dL (8.4-10.2); Carbon Dioxide 22 mmol/L (22-30); Chloride 111 mmol/L (98-107); Glucose 116 mg/dL (74-99); Non-African American GFR(MDRD) >60 (>60 ml/min/1.73 sqM); Potassium 3.7 mmol/L (3.5-5.1); Sodium 141 mmol/L (137-145)
[2017-02-25 10:36] VITALS: BMI 48.6
[2017-02-25] MEDS: ONDANSETRON 4 MG/2 ML VIAL IVP PRN (11:32)
[2017-02-25] MEDS ORDERED: SCOPOLAMINE 1.5MG/72HR PATCH TRANSDERM STA (12:07)
[2017-02-25] MEDS ORDERED: ONDANSETRON 4 MG/2 ML VIAL IVP PRN (12:07)
--- NOTE | 2017-02-25 12:11 | P.PN ---
Subjective Progress Note Date: 02/25/17 Principal diagnosis: 26-year-old female with a history of bipolar depression and PTSD admitted with epigastric discomfort blood-tinged emesis suspect Martine-Guevara. She underwent EGD colonoscopy August of this year with findings of gastritis and early grade B esophagitis. No recurrent emesis however she is reporting nausea. Overall affect is flat. Afebrile. White count 4.9. Hemoglobin 9. MCV 79. Platelet 227. Hemoccult stool negative. Objective - Vital Signs Vital signs: Vital Signs Temp 97.9 F 02/25/17 07:00 Pulse 87 02/25/17 07:00 Resp 16 02/25/17 07:00 BP 136/78 02/25/17 07:00 Pulse Ox 95 02/25/17 07:00 Intake & Output 02/24/17 02/25/17 02/25/17 18:59 06:59 18:59 Intake Total 1240 Balance 1240 Weight 120.656 kg Intake: Intake, IV Titration 1000 Amount Sodium Chloride 0.9% 1, 1000 000 ml @ 125 mls/hr IV . Q8H [facility] Rx#:[id number] Oral 240 Other: Voiding Method Toilet Toilet Toilet # Voids 1 1 1 - Exam General appearance: The patient is alert, oriented, in no acute distress. HET: Head is normocephalic and atraumatic. Pupils are equal and reactive. Oropharynx is clear without lesions. Neck: Supple without lymphadenopathy. Trachea midline. Heart: S1 S2. Regular rate and rhythm. Lungs: No crackles or wheezes are heard. Abdomen: Soft, nontender, nondistended with bowel sounds. No peritoneal signs. No palpable organomegaly or masses. Extremities: Normal skin color and turgor. No cyanosis, rash, ulceration, clubbing, or edema. Radial and pedal pulses are 2/4 bilaterally. Neurological: No focal deficits. Strength and sensation are grossly intact. - Labs CBC & Chem 7: 02/25/17 08:51 02/25/17 08:51 Labs: Abnormal Lab Results - Last 24 Hours (Table) 02/24/17 02/24/17 02/24/17 Range/Units 07:55 07:55 21:59 Hgb (11.4-16.0) gm/dL Hct (34.0-46.0) % MCV (80.0-100.0) fL MCH (25.0-35.0) pg MCHC (31.0-37.0) g/dL ESR 28 H (0-20) mm/hr Chloride (98-107) mmol/L BUN (7-17) mg/dL Glucose (74-99) mg/dL Calcium (8.4-10.2) mg/dL C-Reactive Protein 28.5 H (<10.0) mg/L Urine Blood Large H (Negative) Urine Bacteria Rare H (None) /hpf Urine Mucus Rare H (None) /hpf 02/25/17 02/25/17 Range/Units 08:51 08:51 Hgb 9.0 L (11.4-16.0) gm/dL Hct 30.9 L (34.0-46.0) % MCV 79.9 L (80.0-100.0) fL MCH 23.4 L (25.0-35.0) pg MCHC 29.3 L (31.0-37.0) g/dL ESR (0-20) mm/hr Chloride 111 H (98-107) mmol/L BUN 5 L (7-17) mg/dL Glucose 116 H (74-99) mg/dL Calcium 8.1 L (8.4-10.2) mg/dL C-Reactive Protein (<10.0) mg/L Urine Blood (Negative) Urine Bacteria (None) /hpf Urine Mucus (None) /hpf Assessment and Plan (1) Hematemesis Narrative/Plan: Suspect gastritis possible esophagitis Martine-Guevara tear. No active hematemesis. Current Visit: Yes Status: Acute Code(s): K92.0 - HEMATEMESIS SNOMED Code( s): 2864030 (2) PTSD (post-traumatic stress disorder) Current Visit: Yes Status: Acute Code(s): F43.10 - POST-TRAUMATIC STRESS DISORDER, UNSPECIFIED SNOMED Code(s): 28665262 (3) Morbid obesity with BMI of 45.0-49.9, adult Current Visit: Yes Status: Acute Code(s): E66.01 - MORBID (SEVERE) OBESITY DUE TO EXCESS CALORIES; Z68.42 - BODY MASS INDEX (BMI) 45.0-49.9, ADULT SNOMED Code(s): 743593021 (4) Bipolar 1 disorder Current Visit: No Status: Acute Code(s): F31.9 - BIPOLAR DISORDER, UNSPECIFIED SNOMED Code(s): 812180827 Plan: 1. Continue with antinausea medications. Will add scopolamine patch. Continue with Protonix 40 mg IV twice daily. Endoscopy planned tomorrow per attneding request Dr. Mccullough. We'll continue to follow. Assessment and plan of care discussed with Dr. Vyas
[2017-02-25] MEDS: traMADol 50 MG TAB PO PRN (13:02)
[2017-02-25 15:29] LABS: CH 23.6; CHCM 29.4; HCT 32.7 % (34.0-46.0); HDW 3.53; HGB 9.6 gm/dL (11.4-16.0); Hypochromasia Marked; MCH 23.6 pg (25.0-35.0); MCHC 29.3 g/dL (31.0-37.0); MCV 80.3 fL (80.0-100.0); Mean Platelet Volume 6.9; Poikilocytosis Slight; RBC 4.07 m/uL (3.80-5.40); RDW 13.3 % (11.5-15.5); WBC 5.2 k/uL (3.8-10.6)
--- NOTE | 2017-02-25 16:34 | P.PN ---
Subjective Progress Note Date: 02/25/17 Progress note being dictated for Dr. Mccullough. Interval history: This is a 26-year-old female admitted with abdominal discomfort, nausea vomiting, tachycardia. Hemoglobin remained stable at 9. no signs or symptoms of bleeding. Abdominal pain persists; states in left upper and right lower quadrants. Being clear liquid diet without emesis. Denies chest pain, palpitations or increased shortness of breath. Evaluated by GI with recommendations noted. Afebrile, normal WBC Objective - Vital Signs Vital signs: Vital Signs Temp 97.8 F 02/25/17 14:43 Pulse 95 02/25/17 14:43 Resp 18 02/25/17 14:43 BP 113/67 02/25/17 14:43 Pulse Ox 96 02/25/17 14:43 Intake & Output 02/24/17 02/25/17 02/25/17 18:59 06:59 18:59 Intake Total 1240 Balance 1240 Weight 120.656 kg Intake: Intake, IV Titration 1000 Amount Sodium Chloride 0.9% 1, 1000 000 ml @ 125 mls/hr IV . Q8H ROSALIE Rx#:[id number] Oral 240 Other: Voiding Method Toilet Toilet Toilet # Voids 1 1 2 - Exam PHYSICAL EXAM: VITAL SIGNS: As above GENERAL: Sitting up in bed, no acute distress HEENT: Conjunctivae normal. eyes normal. NECK: No JVD. No thyroid enlargement. No LNs CARDIOVASCULAR: S1, S2 muffled. No murmur RESPIRATION: Breath sounds diminished in the bases. Scattered rhonchi and fine crackles. No bronchial breathing. ABDOMEN: Soft, mild diffuse tenderness . No guarding. no masses palpable.Bowel sounds heard. LEGS: No edema. no swelling PSYCHIATRY: Alert and oriented -3, mood and affect normal. NERVOUS SYSTEM: Cranial N 2-12 grossly normal. Moves all 4 limbs. Diffuse weakness No focal deficits. No sensory deficit. Skin: no ulcer no rash Joints: No active swelling. No inflammation. Lymphatic system. No LN neck axilla or groin. - Labs CBC & Chem 7: 02/25/17 15:00 02/25/17 08:51 Labs: Abnormal Lab Results - Last 24 Hours (Table) 02/24/17 02/24/17 02/25/17 Range/Units 07:55 21:59 08:51 Hgb 9.0 L (11.4-16.0) gm/dL Hct 30.9 L (34.0-46.0) % MCV 79.9 L (80.0-100.0) fL MCH 23.4 L (25.0-35.0) pg MCHC 29.3 L (31.0-37.0) g/dL ESR 28 H (0-20) mm/hr Chloride (98-107) mmol/L BUN (7-17) mg/dL Glucose (74-99) mg/dL Calcium (8.4-10.2) mg/dL Urine Blood Large H (Negative) Urine Bacteria Rare H (None) /hpf Urine Mucus Rare H (None) /hpf 02/25/17 02/25/17 Range/Units 08:51 15:00 Hgb 9.6 L (11.4-16.0) gm/dL Hct 32.7 L (34.0-46.0) % MCV (80.0-100.0) fL MCH 23.6 L (25.0-35.0) pg MCHC 29.3 L (31.0-37.0) g/dL ESR (0-20) mm/hr Chloride 111 H (98-107) mmol/L BUN 5 L (7-17) mg/dL Glucose 116 H (74-99) mg/dL Calcium 8.1 L (8.4-10.2) mg/dL Urine Blood (Negative) Urine Bacteria (None) /hpf Urine Mucus (None) /hpf Assessment and Plan Plan: 1. Abdominal pain, nausea vomiting with upper GI bleed. 2. [ Rule out acute gastritis]. 3. [ Bipolar]. 4. [ Post traumatic stress disorder]. 5. [ Obesity, BMI 40.7]. Plan: Continue on current medication regime , PPI, monitoring and symptomatic treatment. Scheduled for endoscopy tomorrow with GI. Further recommendations to follow. Discharge planning tentatively scheduled for tomorrow pending endoscopy results. The impression and plan of care has been dictated as directed. : I performed a history and examination of this patient, discussed the same with the dictator. I agree with the dictator's note ,documented as a scribe. Any additional findings or plans will be noted.
[2017-02-25] MEDS: ARIPiprazole 10 MG TAB PO SCH (21:03)
[2017-02-25 21:34] LABS: CHCM 30.1; HCT 31.2 % (34.0-46.0); HGB 9.5 gm/dL (11.4-16.0); Hypochromasia Marked; MCH 23.4 pg (25.0-35.0); MCHC 30.5 g/dL (31.0-37.0); MCV 76.7 fL (80.0-100.0); Mean Platelet Volume 7.4; RBC 4.07 m/uL (3.80-5.40); RDW 14.7 % (11.5-15.5); WBC 5.6 k/uL (3.8-10.6)
[2017-02-26 00:38] LABS: CH 23.4; HCT 29.6 % (34.0-46.0); HDW 3.32; Hypochromasia Marked; MCH 23.6 pg (25.0-35.0); MCHC 30.3 g/dL (31.0-37.0); MCV 77.9 fL (80.0-100.0); Mean Platelet Volume 7.3; RDW 14.8 % (11.5-15.5); WBC 5.8 k/uL (3.8-10.6)
[2017-02-26] MEDS: HYDROmorphone 0.5 MG/0.5 ML SYRINGE IVP PRN ×6 (01:54→22:17)
[2017-02-26] MEDS: SODIUM CHLORIDE 0.9% 1,000 ML IV SCH ×3 (05:47→21:42)
[2017-02-26] MEDS: PANTOPRAZOLE 40 MG/10 ML VIAL IV SCH ×2 (08:10→21:41)
[2017-02-26 08:26] LABS: Basophils % (A) 1 %; CH 23.4; CHCM 29.9; Eosinophils # (A) 0.2 k/uL (0-0.7); Eosinophils % (A) 4 %; HCT 31.4 % (34.0-46.0); HDW 3.32; HGB 9.4 gm/dL (11.4-16.0); Hypochromasia Marked; Luc # (Auto) 0.05; Luc % (Auto) 1; Lymphocytes # (A) 1.6 k/uL (1.0-4.8); Lymphocytes % (A) 31 %; MCH 23.7 pg (25.0-35.0); MCHC 30.1 g/dL (31.0-37.0); MCV 78.5 fL (80.0-100.0); Mean Platelet Volume 7.4; Monocytes # (A) 0.2 k/uL (0-1.0); Monocytes % (A) 5 %; Neutrophils % (A) 59 %; RBC 3.99 m/uL (3.80-5.40); RDW 14.9 % (11.5-15.5); WBC 5.1 k/uL (3.8-10.6); WBC (Perox) 5.27
[2017-02-26 08:35] LABS: Anion Gap 6 mmol/L; Blood Urea Nitrogen 5 mg/dL (7-17); Calcium 8.2 mg/dL (8.4-10.2); Carbon Dioxide 25 mmol/L (22-30); Chloride 111 mmol/L (98-107); Glucose 87 mg/dL (74-99); Non-African American GFR(MDRD) >60 (>60 ml/min/1.73 sqM); Potassium 4.4 mmol/L (3.5-5.1); Sodium 142 mmol/L (137-145)
[2017-02-26] MEDS ORDERED: LIDOCAINE 1% INJ 10MG/ML (20 ML MDV) ONE (13:05)
[2017-02-26] MEDS ORDERED: PROPOFOL 10 MG/ML 20 ML VIAL IV ONE (13:05)
[2017-02-26] MEDS ORDERED: LACTATED RINGERS 1,000 ML IV ONE (13:13)
--- NOTE | 2017-02-26 13:18 | P.PCN ---
Date of Procedure: 02/26/17 Procedure(s) Performed: BRIEF HISTORY: Patient is a 26-year-old, pleasant white female, scheduled for an upper endoscopy as a part of evaluation of epigastric and left upper quadrant abdominal pain for the last 5 days duration. She has intermittent nausea vomiting. PROCEDURE PERFORMED: Esophagogastroduodenoscopy biopsy . PREOPERATIVE DIAGNOSIS: Epigastric and left upper quadrant abdominal pain with nausea vomiting. IV sedation per anesthesia. PROCEDURE: After informed consent was obtained, the patient was brought into the endoscopy unit. IV sedation was administered by Anesthesia under continuous monitoring. Initially the Olympus GIF-140 video endoscope was inserted into the mouth. Esophagus intubated without any difficulty. It was gradually advanced into the stomach and duodenum and carefully examined. The bulb and the second part of the duodenum appeared normal. The scope at this time was withdrawn to the stomach, adequately insufflated with air, and upon careful examination, mucosa of the antrum mild gastritis and biopsies were done from this area. The , body, cardia and the fundus appeared normal. The scope was then withdrawn into the esophagus. The GE junction was located at 39 cm from the incisors. The esophagus appeared normal. There were 2 superficial erosions consistent with LA grade a reflux esophagitis but no ulcerations seen and the patient tolerated the procedure well. IMPRESSION: 1. Mild antral gastritis . 2. LA grade A reflux esophagitis . RECOMMENDATIONS: The findings of this examination were discussed with the patient . She was advised to follow with the biopsy results. She will continue with proton pump inhibitors once daily and diet will be advanced as tolerated.
[2017-02-26 14:01] LABS: CH 23.1; CHCM 29.9; HCT 32.4 % (34.0-46.0); Hypochromasia Marked; MCV 77.5 fL (80.0-100.0); Mean Platelet Volume 7.6; Poikilocytosis Slight; RBC 4.18 m/uL (3.80-5.40); RDW 14.8 % (11.5-15.5); WBC 6.4 k/uL (3.8-10.6)
[2017-02-26] MEDS ORDERED: LACTATED RINGERS 1,000 ML IV SCH (14:26)
[2017-02-26] MEDS: traMADol 50 MG TAB PO PRN (17:03)
[2017-02-26] MEDS: ARIPiprazole 10 MG TAB PO SCH (21:41)
[2017-02-27] MEDS: HYDROmorphone 0.5 MG/0.5 ML SYRINGE IVP PRN ×3 (02:35→11:00)
[2017-02-27] MEDS: SODIUM CHLORIDE 0.9% 1,000 ML IV SCH ×2 (06:14→16:11)
[2017-02-27 07:24] VITALS: RESP 16
--- NOTE | 2017-02-27 07:29 | P.PN ---
Subjective Progress Note Date: 02/26/17 Progress note being dictated for Dr. Mccullough. Interval history: This is a 26-year-old female admitted with abdominal discomfort, nausea vomiting, tachycardia. Hemoglobin remained stable at 9. no signs or symptoms of bleeding. Abdominal pain persists; states in left upper and right lower quadrants. Being clear liquid diet without emesis. Denies chest pain, palpitations or increased shortness of breath. Evaluated by GI with recommendations noted. Afebrile, normal WBC 02/26/2017 underwent EGD with GI this morning, reporting mild antral gastritis , LA grade a reflux esophagitis, biopsy obtained. Continues on PPI. Currently Tolerating diet with no nausea or vomiting. Abdominal pain improved. Denies chest pain, palpitations or increased shortness of breath. T-max 99.8, normal WBC. Objective - Vital Signs Vital signs: Vital Signs Temp 99.8 F H 02/26/17 14:13 Pulse 78 02/26/17 14:13 Resp 16 02/26/17 14:13 BP 105/55 02/26/17 14:13 Pulse Ox 98 02/26/17 14:13 Intake & Output 02/25/17 02/26/17 02/26/17 18:59 06:59 18:59 Intake Total 1100 Balance 1100 Weight 120.656 kg Intake: IV 1100 Sodium Chloride 0.9% 1, 1000 000 ml @ 125 mls/hr IV . Q8H ROSALIE Rx#:[id number] Other: Voiding Method Toilet Toilet # Voids 2 0 1 - Exam PHYSICAL EXAM: VITAL SIGNS: As above GENERAL: Sitting up in bed, no acute distress HEENT: Conjunctivae normal. eyes normal. NECK: No JVD. No thyroid enlargement. No LNs CARDIOVASCULAR: S1, S2 muffled. No murmur RESPIRATION: Breath sounds diminished in the bases. Scattered rhonchi, no crackles, no wheezing. No bronchial breathing. ABDOMEN: Soft, mild diffuse tenderness . No guarding. no masses palpable.Bowel sounds heard. LEGS: No edema. no swelling PSYCHIATRY: Alert and oriented -3, mood and affect normal. NERVOUS SYSTEM: Cranial N 2-12 grossly normal. Moves all 4 limbs. No focal deficits. No sensory deficit. Skin: no ulcer no rash Joints: No active swelling. No inflammation. Lymphatic system. No LN neck axilla or groin. - Labs CBC & Chem 7: 02/26/17 13:50 02/26/17 07:39 Labs: Abnormal Lab Results - Last 24 Hours (Table) 02/25/17 02/25/17 02/26/17 Range/Units 15:00 20:48 00:15 Hgb 9.6 L 9.5 L 9.0 L (11.4-16.0) gm/dL Hct 32.7 L 31.2 L 29.6 L (34.0-46.0) % MCV 76.7 L 77.9 L (80.0-100.0) fL MCH 23.6 L 23.4 L 23.6 L (25.0-35.0) pg MCHC 29.3 L 30.5 L 30.3 L (31.0-37.0) g/dL Chloride (98-107) mmol/L BUN (7-17) mg/dL Calcium (8.4-10.2) mg/dL 02/26/17 02/26/17 02/26/17 Range/Units 07:39 07:39 13:50 Hgb 9.4 L 10.0 L (11.4-16.0) gm/dL Hct 31.4 L 32.4 L (34.0-46.0) % MCV 78.5 L 77.5 L (80.0-100.0) fL MCH 23.7 L 24.0 L (25.0-35.0) pg MCHC 30.1 L (31.0-37.0) g/dL Chloride 111 H (98-107) mmol/L BUN 5 L (7-17) mg/dL Calcium 8.2 L (8.4-10.2) mg/dL Assessment and Plan Plan: 1. Abdominal pain, nausea vomiting with upper GI bleed. 2. Mild antral gastritis, LA grade a reflux esophagitis as per EGD 3. [ Bipolar]. 4. [ Post traumatic stress disorder]. 5. [ Obesity, BMI 40.7]. Plan: Continue on current medication regime , PPI, monitoring and symptomatic treatment. Diet advancement as tolerated. Close monitoring of hemoglobin with repeat labs ordered for a.m. Discharge planning in progress for tomorrow. The impression and plan of care has been dictated as directed. : I performed a history and examination of this patient, discussed the same with the dictator. I agree with the dictator's note ,documented as a scribe. Any additional findings or plans will be noted.
[2017-02-27] MEDS: PANTOPRAZOLE 40 MG/10 ML VIAL IV SCH (08:11)
[2017-02-27 08:13] LABS: Basophils % (A) 1 %; CHCM 30.2; Eosinophils # (A) 0.3 k/uL (0-0.7); Eosinophils % (A) 4 %; HCT 33.1 % (34.0-46.0); HDW 3.39; HGB 10.1 gm/dL (11.4-16.0); Hypochromasia Marked; Luc # (Auto) 0.05; Luc % (Auto) 1; Lymphocytes % (A) 29 %; MCH 23.4 pg (25.0-35.0); MCHC 30.6 g/dL (31.0-37.0); MCV 76.4 fL (80.0-100.0); Mean Platelet Volume 7.8; Monocytes # (A) 0.3 k/uL (0-1.0); Monocytes % (A) 4 %; Neutrophils # (A) 4.4 k/uL (1.3-7.7); Neutrophils % (A) 63 %; RBC 4.33 m/uL (3.80-5.40); RDW 15.2 % (11.5-15.5); WBC (Perox) 7.41
[2017-02-27 08:27] LABS: Anion Gap 6 mmol/L; Blood Urea Nitrogen 8 mg/dL (7-17); Carbon Dioxide 28 mmol/L (22-30); Chloride 107 mmol/L (98-107); Glucose 98 mg/dL (74-99); Non-African American GFR(MDRD) >60 (>60 ml/min/1.73 sqM); Potassium 4.2 mmol/L (3.5-5.1); Sodium 141 mmol/L (137-145)
[2017-02-27] MEDS: traMADol 50 MG TAB PO PRN (13:07)
[2017-02-27 14:02] LABS: Appearance,Urine Clear (Clear); Bacteria,Urine Rare /hpf; Bilirubin,Urine Negative (Negative); Glucose,Urine (UA) Negative (Negative); Ketones,Urine Negative (Negative); Leukocyte Esterase,Urine Negative (Negative); Mucus,Urine Rare /hpf; Nitrite,Urine Negative (Negative); Particle Count 2321; Protein,Urine Negative (Negative); RBC,Urine 2 /hpf (0-5); Specific Gravity,Urine 1.011 (1.001-1.035); Squamous Epithelial Cell,Urine <1 /hpf (0-4); UA Billing (MACRO vs. MICRO) MICRO; WBC,Urine 2 /hpf (0-5)
--- NOTE | 2017-02-27 14:58 | P.DS ---
Providers Date of admission: 02/25/17 15:41 Attending physician: Efrain Goodman Primary care physician: Olvin [facility] Course: This 26-year-old woman with a past medical history of multiple medical problems was admitted with abdominal pain nausea vomiting. The patient underwent EGD showed antral gastritis. The patient will be discharged in a stable condition with guarded prognosis after clearance from gastroenterology. the patient was advised to follow-up with gastroenterology as well as primary physician closely in the outpatient setting. On exam vitals stable. Cardio S1 and S2 normal. Abdomen soft nontender. Respirator system clear to auscultation Final diagnosis 1. Abdominal pain nausea vomiting with GI bleeding possibly gastritis 2. Anterior gastritis and grade a reflux esophagitis in the ED. 3. Bipolar. 4. Posttraumatic stress disorder. 5. Obesity body mass 40.7 Patient Condition at Discharge: Stable Plan - Discharge Summary Discharge Rx Participant: Yes New Discharge Prescriptions: New Pantoprazole Sodium [Protonix] 40 mg PO BID #60 tablet. traMADol HCl [Ultram] 50 mg PO Q6H PRN #20 tab PRN Reason: Moderate Pain Continue LORazepam [Ativan] 1 mg PO TID PRN PRN Reason: Anxiety ARIPiprazole 20 mg PO HS Discharge Medication List ARIPiprazole 20 mg PO HS 02/22/17 [History] LORazepam [Ativan] 1 mg PO TID PRN 02/22/17 [History] Pantoprazole Sodium [Protonix] 40 mg PO BID #60 tablet. 02/25/17 [Rx] traMADol HCl [Ultram] 50 mg PO Q6H PRN #20 tab 02/25/17 [Rx] Follow up Appointment(s)/Referral(s): Celestino Amador MD [STAFF PHYSICIAN] - 03/27/17 5:45 pm () Olvin Keenan MD [Primary Care Provider] - 03/04/17 11:00 am Ambulatory/Diagnostic Orders: Complete Blood Count w/diff [LAB.AMB] Time Frame: 3 Days, Location: Determined By Patient Patient Instructions/Handouts: Gastrointestinal Bleeding (DC) Activity/Diet/Wound Care/Special Instructions: Regular diet. Activity as tolerated.
[2017-02-27 15:04] VITALS: BP 121/63; PULSE 93; TEMP 9.5
== END 2017-02-27 16:43 | disposition home or self-care (01) | DRG 241 ==
LOC: EC 20:02 → UNDOADMOB 21:25 → 4MS4W 21:25 → INTOOBSV 02-25 15:41 → OBSVTOIN 02-25 15:41
PROVIDERS: ADMIT Hospitalist; ATTEND Hospitalist
PROC: 0DB78ZX Excision of Stomach, Pylorus, Via Natural or Artificial Opening Endoscopic, Diagnostic (ICD-10-PCS; principal; 2017-02-26 14:00)
DX: K29.71 Gastritis, unspecified, with bleeding (principal); Z68.42 Body mass index [BMI] 45.0-49.9, adult; E66.01 Morbid (severe) obesity due to excess calories; F31.9 Bipolar disorder, unspecified; K21.0 Gastro-esophageal reflux disease with esophagitis; F43.10 Post-traumatic stress disorder, unspecified; F41.9 Anxiety disorder, unspecified; Z79.899 Other long term (current) drug therapy; Z90.49 Acquired absence of other specified parts of digestive tract; Z98.51 Tubal ligation status; Z87.442 Personal history of urinary calculi
CPT/HCPCS: 36415; 43239; 74022; 74177; 80048; 80053; 81001; 81025; 82150; 82272; 83690; 85025; 85027; 85610; 85652; 85730; 86140; 86850; 86900; 86901; 87086; 88305; 88342; 96361; 96374; 96375; 99285

== ENCOUNTER 2017-06-21 18:18 | Emergency (ER) | payer OTHER ==
[2017-06-21] MEDS ORDERED: ONDANSETRON 4 MG/2 ML VIAL IVP STA (18:46)
[2017-06-21] MEDS ORDERED: SODIUM CHLORIDE 0.9% 1,000 ML IV STA (18:46)
[2017-06-21] MEDS ORDERED: HYDROmorphone 0.5 MG/0.5 ML SYRINGE IVP STA (18:46)
[2017-06-21] MEDS ORDERED: PANTOPRAZOLE 40 MG/10 ML VIAL IVP STA (18:47)
--- NOTE | 2017-06-21 18:53 | ED ---
Abdominal Pain HPI - General Chief Complaint: Abdominal Pain Stated Complaint: abd pain Time Seen by Provider: 06/21/17 18:27 Source: patient, RN notes reviewed Mode of arrival: ambulatory Limitations: no limitations - History of Present Illness Initial Comments: This is a 27-year-old female who presents to the emergency department with chief complaint of left upper quadrant abdominal pain. Patient states that approximately 3 hours ago she developed sharp, stabbing pain in her left chest. She states that 1 hour ago she developed left upper quadrant abdominal pain. She describes the pain as sharp and stabbing. She states that the pain is constant. Since that time, she has had 2 episodes of vomiting bright red blood. She denies any shortness of breath. She states that she has a history of upper GI bleed. She states that she has followed up with Dr. Vyas and was diagnosed with gastritis and possibly irritable bowel syndrome. Denies any melena or hematochezia. Denies hematuria or dysuria. Denies fevers or chills. - Related Data Home Medications Medication Instructions Recorded Confirmed ARIPiprazole [Abilify] 15 mg PO HS 06/21/17 06/21/17 Amitriptyline HCl [Elavil] 25 mg PO HS 06/21/17 06/21/17 Gabapentin [Neurontin] 100 mg PO TID 06/21/17 06/21/17 LORazepam [Ativan] 1 mg PO TID PRN 06/21/17 06/21/17 Allergies Allergy/AdvReac Type Severity Reaction Status Date / Time No Known Allergies Allergy Verified 06/21/17 18:53 Review of Systems ROS Statement: Those systems with pertinent positive or pertinent negative responses have been documented in the HPI. ROS Other: All systems not noted in ROS Statement are negative. Past Medical History Past Medical History: GERD/Reflux Additional Past Medical History / Comment(s): gallstones, kidney stones, D&C History of Any Multi-Drug Resistant Organisms: None Reported Past Surgical History: Section, Cholecystectomy, Tubal Ligation Additional Past Surgical History / Comment(s): neck biopsy (lymph node ) Past Anesthesia/Blood Transfusion Reactions: No Reported Reaction Past Psychological History: Anxiety, Bipolar, Depression, PTSD Smoking Status: Never smoker Past Alcohol Use History: None Reported Past Drug Use History: None Reported - Past Family History Mother Family Medical History: Diabetes Mellitus, Hyperlipidemia, Hypertension, Myocardial Infarction ([place]) General Exam - General Exam Comments Initial Comments: General: Awake and alert, well-developed; in no apparent distress. HEENT: Head atraumatic, normocephalic. Pupils are equal, round and reactive to light. Extraocular movements intact. Oropharynx moist without erythema or exudate. Neck: Supple. Normal ROM. Cardiovascular: Regular rate and rhythm. No murmurs, rubs or gallops. Chest symmetrical. No chest wall tenderness. Respiratory: Lungs clear to auscultation bilaterally. No wheezes, rales or rhonchi. Normal respiratory effort with no use of accessory muscles. Abdomen: Soft, non-distended. Tenderness on palpation of left upper quadrant. No rigidity, rebound or guarding. Normal bowel sounds in all 4 quadrants. Musculoskeletal: Normal ROM, no tenderness bilateral upper and lower extremities. Ambulating normally. Skin: [place], warm and dry without rashes or lesions. Neurological: Alert and oriented x3. CN II-XII grossly intact. Speech is fluent and answers are appropriate. No focal neuro deficits. Psychiatric: Normal mood and affect. No overt signs of depression or anxiety noted. Limitations: no limitations Course Vital Signs 06/21/17 06/21/17 06/21/17 18:21 19:36 20:25 Temperature 98.1 F Pulse Rate 123 H 16 L Pulse Rate [ 116 H Altitude Chamber Technician ] Respiratory 20 18 Rate Blood Pressure 145/64 143/74 O2 Sat by Pulse 100 98 Oximetry Medical Decision Making - Medical Decision Making This is a 27-year-old female presents to the emergency department with chief complaint of left upper quadrant abdominal pain and 2 episodes of vomiting blood. While in the emergency department, patient's vital signs have been stable and she is no longer had any episodes of hematemesis. Patient was given medication and she states that her pain has improved. EKG showed a sinus tachycardia. This has improved. CBC was within normal limits. Hemoglobin was 11.7, which is markedly elevated compared to last previous labs. CMP and UA were unremarkable. KUB was normal. Patient is in no acute distress. She will be discharged home with recommendation to follow-up with Dr. Vyas within 1-2 days. Patient is in agreement and voices understanding. All questions were answered. - Lab Data Result diagrams: 06/21/17 20:24 06/21/17 20:24 Lab Results 06/21/17 06/21/17 06/21/17 Range/Units 20:24 20:24 20:48 WBC 9.1 (3.8-10.6) k/uL RBC 4.96 (3.80-5.40) m/uL Hgb 11.7 (11.4-16.0) gm/dL Hct 37.6 (34.0-46.0) % MCV 75.9 L (80.0-100.0) fL MCH 23.6 L (25.0-35.0) pg MCHC 31.1 (31.0-37.0) g/dL RDW 15.5 (11.5-15.5) % Plt Count 314 (150-450) k/uL Neutrophils % 60 % Lymphocytes % 30 % Monocytes % 4 % Eosinophils % 5 % Basophils % 0 % Neutrophils # 5.5 (1.3-7.7) k/uL Lymphocytes # 2.8 (1.0-4.8) k/uL Monocytes # 0.3 (0-1.0) k/uL Eosinophils # 0.4 (0-0.7) k/uL Basophils # 0.0 (0-0.2) k/uL Hypochromasia Slight Microcytosis Slight Sodium 143 (137-145) mmol/L Potassium 4.0 (3.5-5.1) mmol/L Chloride 109 H (98-107) mmol/L Carbon Dioxide 24 (22-30) mmol/L Anion Gap 10 mmol/L BUN 19 H (7-17) mg/dL Creatinine 0.60 (0.52-1.04) mg/dL Est GFR (MDRD) Af Amer >60 (>60 ml/min/1.73 sqM) Est GFR (MDRD) Non-Af >60 (>60 ml/min/1.73 sqM) Glucose 98 (74-99) mg/dL Calcium 9.1 (8.4-10.2) mg/dL Total Bilirubin 0.3 (0.2-1.3) mg/dL AST 21 (14-36) U/L ALT 35 (9-52) U/L Alkaline Phosphatase 119 (38-126) U/L Total Protein 6.2 L (6.3-8.2) g/dL Albumin 3.5 (3.5-5.0) g/dL Amylase 45 (30-110) U/L Lipase 98 (23-300) U/L Urine Color Yellow Urine Appearance Clear (Clear) Urine pH 5.5 (5.0-8.0) Ur Specific [place] 1.020 (1.001-1.035) Urine Protein Negative (Negative) Urine Glucose (UA) Negative (Negative) Urine Ketones Negative (Negative) Urine Blood Negative (Negative) Urine Nitrite Negative (Negative) Urine Bilirubin Negative (Negative) Urine Urobilinogen <2.0 (<2.0) mg/dL Ur Leukocyte Esterase Negative (Negative) - EKG Data EKG Comments: EKG at 19: 11/26/2001. Sinus tachycardia. Ventricular rate 115 bpm, MN interval 134, QRS duration 78, QT/QTC 330/456. - Radiology Data Radiology results: report reviewed X-ray KUB findings: Scattered gas is seen in nondistended small bowel loops. Gas and fecal material seen in nondistended colon. Tubal ligation clips in the pelvis are redemonstrated. Spleen remains mildly enlarged. No suspicious calcifications are seen. No pneumoperitoneum is noted. Lung bases are clear. The visualized osseous structures are intact. Impression: Overall nonobstructive bowel gas pattern. No significant change from recent CT. Disposition Clinical Impression: Hematemesis, Abdominal pain Disposition: HOME SELF-CARE Condition: Good Instructions: Abdominal Pain (ED), Hematemesis (ED) Additional Instructions: Please follow-up with Dr. Vyas within 1-2 days. Please return to the emergency department if you develop any worsening in symptoms or any concerns arise. Referrals: Olvin Keenan MD [Primary Care Provider] - 1-2 days Time of Disposition: 21:03
--- NOTE | 2017-06-21 20:17 | XR ---
EXAMINATION TYPE: XR KUB DATE OF EXAM: 06/21/2017 8:07 PM CLINICAL HISTORY: Abdominal pain not further specified. TECHNIQUE: Two Upright KUB images of the abdomen are obtained. COMPARISON: CT abdomen and pelvis February 23, 2017 FINDINGS: Scattered gas is seen in non-distended small bowel loops. Gas and fecal material is seen in non-distended colon. Tubal ligation clips in the pelvis are redemonstrated. Spleen remains mildly en larged. No suspicious calcifications are seen. No pneumoperitoneum is noted. Lung bases are clear. Vi sualized osseous structures are intact IMPRESSION: Overall nonobstructive bowel gas pattern. No significant change from recent CT.
[2017-06-21 20:29] LABS: Basophils % (A) 0 %; Eosinophils # (A) 0.4 k/uL (0-0.7); Eosinophils % (A) 5 %; HCT 37.6 % (34.0-46.0); HGB 11.7 gm/dL (11.4-16.0); Hypochromasia Slight; Lymphocytes # (A) 2.8 k/uL (1.0-4.8); Lymphocytes % (A) 30 %; MCH 23.6 pg (25.0-35.0); MCHC 31.1 g/dL (31.0-37.0); MCV 75.9 fL (80.0-100.0); Mean Platelet Volume 6.4; Microcytosis Slight; Monocytes # (A) 0.3 k/uL (0-1.0); Monocytes % (A) 4 %; Neutrophils # (A) 5.5 k/uL (1.3-7.7); Neutrophils % (A) 60 %; Platelet Count 314 k/uL (150-450); RBC 4.96 m/uL (3.80-5.40); RDW 15.5 % (11.5-15.5); WBC 9.1 k/uL (3.8-10.6)
[2017-06-21 20:40] LABS: ALT 35 U/L (9-52); AST 21 U/L (14-36); Albumin 3.5 g/dL (3.5-5.0); Alkaline Phosphatase 119 U/L (38-126); Amylase 45 U/L (30-110); Anion Gap 10 mmol/L; Blood Urea Nitrogen 19 mg/dL (7-17); Calcium 9.1 mg/dL (8.4-10.2); Carbon Dioxide 24 mmol/L (22-30); Chloride 109 mmol/L (98-107); Glucose 98 mg/dL (74-99); Lipase 98 U/L (23-300); Sodium 143 mmol/L (137-145); Total Bilirubin 0.3 mg/dL (0.2-1.3); Total Protein 6.2 g/dL (6.3-8.2)
[2017-06-21 20:54] LABS: Appearance,Urine Clear (Clear); Bilirubin,Urine Negative (Negative); Blood,Urine Negative (Negative); Color,Urine Yellow; Glucose,Urine (UA) Negative (Negative); Ketones,Urine Negative (Negative); Leukocyte Esterase,Urine Negative (Negative); Nitrite,Urine Negative (Negative); PH, Urine 5.5 (5.0-8.0); Protein,Urine Negative (Negative); Urobilinogen,Urine <2.0 mg/dL (<2.0)
[2017-06-21 21:06] VITALS: BP 139/62; PULSE 98; RESP 17; TEMP 98.2
== END 2017-06-21 21:10 | disposition home or self-care (01) ==
LOC: EC 18:18
DX: K92.0 Hematemesis (principal); R10.12 Left upper quadrant pain; R00.0 Tachycardia, unspecified; F41.9 Anxiety disorder, unspecified; F32.9 Major depressive disorder, single episode, unspecified; F43.10 Post-traumatic stress disorder, unspecified; Z90.49 Acquired absence of other specified parts of digestive tract; Z98.51 Tubal ligation status; Z79.899 Other long term (current) drug therapy
CPT/HCPCS: 36415; 93005; 80053; 82150; 83690; 85025; 81003; 74018; 99284; 96374; 96375 ×2; 96361; J2405; C9113; J1170

== ENCOUNTER 2017-07-04 20:02 | Emergency (ER) | payer OTHER ==
[2017-07-04 20:15] VITALS: RESP 18; TEMP 98.3
[2017-07-04] MEDS ORDERED: SODIUM CHLORIDE 0.9% 1,000 ML IV ONE (20:42)
[2017-07-04] MEDS ORDERED: MORPHINE SULFATE 4 MG/ML SYRINGE IVP STA ×2 (20:42→21:51)
[2017-07-04] MEDS ORDERED: PANTOPRAZOLE 40 MG/10 ML VIAL IVP STA (20:42)
[2017-07-04] MEDS ORDERED: ONDANSETRON 4 MG/2 ML VIAL IVP STA (20:42)
--- NOTE | 2017-07-04 20:45 | ED ---
GI Bleed HPI - General Chief complaint: GI Bleed Stated complaint: Rectal bleeding, Abd pain Time Seen by Provider: 07/04/17 20:36 Source: patient Mode of arrival: ambulatory Limitations: no limitations - History of Present Illness Initial comments: 27-year-old female patient presents to the emergency department today for evaluation of hematemesis and hematochezia. She states that started around 5 PM states started having severe left and right lower abdominal pain. States that she has had 2 episodes of diarrhea that contained bright red blood. She states that she has vomited 3 times and also contained bright red blood. States that she has had several episodes similar to this in the past. States that last episode was in April. States that she has had upper and lower GI scopes by the wash test checker however they're unable to find anything other than inflammation. Patient denies any dizziness or weakness today. Denies any fevers or chills. Denies any recent travel or ingestion of questionable foods. Patient denies any recent rash, shortness breath, chest pain, back pain, numbness, tingling, hematuria, dysuria, urinary urgency, urinary frequency, headache, visual changes, or any other complaints. - Related Data Home Medications Medication Instructions Recorded Confirmed ARIPiprazole [Abilify] 15 mg PO HS 06/21/17 07/04/17 Amitriptyline HCl [Elavil] 25 mg PO HS 06/21/17 07/04/17 Gabapentin [Neurontin] 100 mg PO TID 06/21/17 07/04/17 LORazepam [Ativan] 1 mg PO TID PRN 06/21/17 07/04/17 Previous Rx's Medication Instructions Recorded Dicyclomine [Bentyl] 20 mg PO QID #20 tablet 07/04/17 Allergies Allergy/AdvReac Type Severity Reaction Status Date / Time No Known Allergies Allergy Verified 07/04/17 21:05 Review of Systems ROS Statement: Those systems with pertinent positive or pertinent negative responses have been documented in the HPI. ROS Other: All systems not noted in ROS Statement are negative. Past Medical History Past Medical History: GERD/Reflux, GI Bleed Additional Past Medical History / Comment(s): gallstones, kidney stones, D&C History of Any Multi-Drug Resistant Organisms: None Reported Past Surgical History: Section, Cholecystectomy, Tubal Ligation Additional Past Surgical History / Comment(s): neck biopsy (lymph node ) Past Anesthesia/Blood Transfusion Reactions: No Reported Reaction Past Psychological History: Anxiety, Bipolar, Depression, PTSD Smoking Status: Never smoker Past Alcohol Use History: None Reported Past Drug Use History: None Reported - Past Family History Mother Family Medical History: Diabetes Mellitus, Hyperlipidemia, Hypertension, Myocardial Infarction ([place]) General Exam Limitations: no limitations General appearance: alert, in no apparent distress, other (This is a well- developed, well-nourished, obese adult female patient in no acute distress. Vital signs upon presentation are temperature 98.3F, pulse 120, respirations 18 , blood pressure 141/87, pulse ox 98% on room air.) Eye exam: Present: normal appearance, PERRL, EOMI. Absent: scleral icterus, conjunctival injection, periorbital swelling ENT exam: Present: normal exam, normal oropharynx, mucous membranes moist Respiratory exam: Present: normal lung sounds bilaterally. Absent: respiratory distress, wheezes, rales, rhonchi, stridor Cardiovascular Exam: Present: normal rhythm, tachycardia, normal heart sounds. Absent: systolic murmur, diastolic murmur, rubs, gallop, clicks GI/Abdominal exam: Present: soft, tenderness (But epigastric tenderness, right lower quadrant, and left lower quadrant tenderness.), normal bowel sounds. Absent: distended, guarding, rebound, rigid Neurological exam: Present: alert, oriented X3, CN II-XII intact Psychiatric exam: Present: normal affect, normal mood Skin exam: Present: warm, dry, intact, normal color. Absent: rash Course Vital Signs 07/04/17 07/04/17 20:10 21:24 Temperature 98.3 F Pulse Rate 120 H 114 H Respiratory 18 18 Rate Blood Pressure 141/87 115/57 O2 Sat by Pulse 98 97 Oximetry Medical Decision Making - Medical Decision Making 27-year-old female patient presented to the emergency department today for evaluation of abdominal pain, hematemesis, hematochezia. Physical examination is overall unremarkable. Abdomen is nontender. Patient labs reviewed and did reveal an elevated white blood cell count at 12.0, hemoglobin is 11.6, occult blood is negative. EKG shows sinus tachycardia. I did review findings with the patient. After administration of pain medication, nausea medication, and Protonix patient states that her pain in her abdomen is now generalized. This is consistent with her previous symptoms of irritable bowel syndrome. Patient does have an appointment with her GI specialist on Friday. She is urged to keep this appointment. She'll be given Bentyl and another dose of morphine prior to discharge. She is instructed to follow-up with her primary care physician as well. She is instructed to return here immediately for any new, worsening, or concerning symptoms. She verbalizes understanding and agrees with this plan. - Lab Data Result diagrams: 07/04/17 21:02 07/04/17 21:02 Lab Results 07/04/17 07/04/17 07/04/17 Range/Units 21:02 21:02 21:22 WBC 12.0 H (3.8-10.6) k/uL RBC 4.90 (3.80-5.40) m/uL Hgb 11.6 (11.4-16.0) gm/dL Hct 36.3 (34.0-46.0) % MCV 74.0 L (80.0-100.0) fL MCH 23.7 L (25.0-35.0) pg MCHC 32.1 (31.0-37.0) g/dL RDW 16.3 H (11.5-15.5) % Plt Count 335 (150-450) k/uL Neutrophils % 60 % Lymphocytes % 29 % Monocytes % 4 % Eosinophils % 5 % Basophils % 1 % Neutrophils # 7.2 (1.3-7.7) k/uL Lymphocytes # 3.5 (1.0-4.8) k/uL Monocytes # 0.4 (0-1.0) k/uL Eosinophils # 0.6 (0-0.7) k/uL Basophils # 0.1 (0-0.2) k/uL Anisocytosis Slight Microcytosis Slight Sodium 142 (137-145) mmol/L Potassium 4.3 (3.5-5.1) mmol/L Chloride 107 (98-107) mmol/L Carbon Dioxide 26 (22-30) mmol/L Anion Gap 9 mmol/L BUN 18 H (7-17) mg/dL Creatinine 0.70 (0.52-1.04) mg/dL Est GFR (CKD-EPI)AfAm >90 (>60 ml/min/1.73 sqM) Est GFR (CKD-EPI)NonAf >90 (>60 ml/min/1.73 sqM) Glucose 90 (74-99) mg/dL Calcium 10.0 (8.4-10.2) mg/dL Total Bilirubin 0.4 (0.2-1.3) mg/dL AST 24 (14-36) U/L ALT 38 (9-52) U/L Alkaline Phosphatase 136 H (38-126) U/L Total Protein 6.8 (6.3-8.2) g/dL Albumin 4.0 (3.5-5.0) g/dL Amylase 46 (30-110) U/L Lipase 93 (23-300) U/L Stool Occult Blood Negative (Negative) - EKG Data -: EKG Interpreted by Me EKG Comments: EKG obtained at 2047 shows sinus tachycardia. Ventricular rate is 138, NH interval 128, QR judaism 76, QT 322, QTc 473. No evidence of ST elevation or depression. Disposition Clinical Impression: Abdominal pain, Irritable bowel syndrome Disposition: HOME SELF-CARE Condition: Good Instructions: Irritable Bowel Syndrome (ED), Abdominal Pain (ED) Additional Instructions: Take medications as directed. Keep her appointment with your GI specialist on Friday. Return here immediately for any new, worsening, or concerning symptoms. Prescriptions: Dicyclomine [Bentyl] 20 mg PO QID #20 tablet Referrals: Olvin Keenan MD [Primary Care Provider] - 1-2 days Time of Disposition: 21:54
[2017-07-04 21:15] LABS: Anisocytosis Slight; Basophils # (A) 0.1 k/uL (0-0.2); Basophils % (A) 1 %; Eosinophils # (A) 0.6 k/uL (0-0.7); Eosinophils % (A) 5 %; HCT 36.3 % (34.0-46.0); HGB 11.6 gm/dL (11.4-16.0); Lymphocytes # (A) 3.5 k/uL (1.0-4.8); Lymphocytes % (A) 29 %; MCH 23.7 pg (25.0-35.0); MCHC 32.1 g/dL (31.0-37.0); Mean Platelet Volume 6.9; Microcytosis Slight; Monocytes # (A) 0.4 k/uL (0-1.0); Monocytes % (A) 4 %; Neutrophils # (A) 7.2 k/uL (1.3-7.7); Neutrophils % (A) 60 %; Platelet Count 335 k/uL (150-450); RDW 16.3 % (11.5-15.5)
[2017-07-04 21:26] VITALS: BP 115/57; PULSE 114
[2017-07-04 21:35] LABS: ALT 38 U/L (9-52); AST 24 U/L (14-36); Alkaline Phosphatase 136 U/L (38-126); Amylase 46 U/L (30-110); Anion Gap 9 mmol/L; Blood Urea Nitrogen 18 mg/dL (7-17); Carbon Dioxide 26 mmol/L (22-30); Chloride 107 mmol/L (98-107); Glucose 90 mg/dL (74-99); Lipase 93 U/L (23-300); Potassium 4.3 mmol/L (3.5-5.1); Sodium 142 mmol/L (137-145); Total Bilirubin 0.4 mg/dL (0.2-1.3); Total Protein 6.8 g/dL (6.3-8.2)
[2017-07-04] MEDS ORDERED: DICYCLOMINE 10 MG/ML 2 ML AMP IM STA (21:51)
== END 2017-07-04 22:32 | disposition home or self-care (01) ==
LOC: EC 20:02
DX: K58.9 Irritable bowel syndrome, unspecified (principal); R11.10 Vomiting, unspecified; D72.829 Elevated white blood cell count, unspecified; R00.0 Tachycardia, unspecified; K21.9 Gastro-esophageal reflux disease without esophagitis; F31.9 Bipolar disorder, unspecified; F41.9 Anxiety disorder, unspecified; F43.10 Post-traumatic stress disorder, unspecified; Z79.899 Other long term (current) drug therapy; Z90.49 Acquired absence of other specified parts of digestive tract
CPT/HCPCS: 36415; 93005; 80053; 82150; 83690; 85025; 82272; 99284; 96374; 96375 ×2; 96376; 96361 ×2; 96372; J2270; J0500; J2405; C9113

== ENCOUNTER 2017-07-06 16:55 | Emergency (ER) | payer OTHER ==
[2017-07-06 17:03] VITALS: RESP 18
[2017-07-06] MEDS ORDERED: SODIUM CHLORIDE 0.9% 1,000 ML IV STA (17:33)
[2017-07-06] MEDS ORDERED: ONDANSETRON 4 MG/2 ML VIAL IM STA (17:33)
[2017-07-06] MEDS ORDERED: PANTOPRAZOLE 40 MG/10 ML VIAL IVP STA (17:33)
--- NOTE | 2017-07-06 17:47 | ED ---
GI Bleed HPI - General Chief complaint: GI Bleed Stated complaint: Abd Pain/Vomiting Time Seen by Provider: 07/06/17 17:13 Source: patient, old records reviewed Mode of arrival: wheelchair Limitations: no limitations - History of Present Illness Initial comments: Patient presents with coffee-ground emesis. Patient has a history of similar episodes, is her third ER visit in the past 2 weeks for similar symptoms. Patient has been seen 5 times in this hospital the past 5 months or similar symptoms. Patient states she has also noticed small amount of bright red blood in her stools. States she's had 3 bowel movements today. Patient states one episode of coffee-ground emesis approximately one hour prior to arrival. She states she's currently nauseated. Denies abdominal pain, lightheadedness, syncope, changes in urination, vaginal bleeding. Patient states she's had multiple colonoscopies and EGDs in the past. Review of records show last EGD and February of last year showed antral gastritis. Patient states she sees limousine driver Dr. Vyas. States she is on Protonix at home. Patient states she has never required blood transfusion for her hematochezia or hematemesis. - Related Data Home Medications Medication Instructions Recorded Confirmed ARIPiprazole [Abilify] 15 mg PO HS 06/21/17 07/06/17 Amitriptyline HCl [Elavil] 25 mg PO HS 06/21/17 07/06/17 Gabapentin [Neurontin] 100 mg PO TID 06/21/17 07/06/17 LORazepam [Ativan] 1 mg PO TID PRN 06/21/17 07/06/17 Previous Rx's Medication Instructions Recorded Dicyclomine [Bentyl] 20 mg PO QID #20 tablet 07/04/17 Ondansetron Odt [Zofran Odt] 4 mg PO Q8HR PRN #6 tab 07/06/17 Allergies Allergy/AdvReac Type Severity Reaction Status Date / Time No Known Allergies Allergy Verified 07/06/17 17:28 Review of Systems ROS Statement: Those systems with pertinent positive or pertinent negative responses have been documented in the HPI. ROS Other: All systems not noted in ROS Statement are negative. Constitutional: Denies: fever, chills Eyes: Denies: vision change ENT: Denies: epistaxis Respiratory: Denies: dyspnea Cardiovascular: Denies: chest pain, syncope Endocrine: Denies: fatigue Gastrointestinal: Reports: nausea, vomiting, hematemesis, other (blood in stools ). Denies: abdominal pain, diarrhea, constipation, melena Genitourinary: Reports: other (Patient states she has irregular periods, last period approximately 3 months ago. Denies any vaginal bleeding at this time. on control. ). Denies: urgency, dysuria, frequency, hematuria Musculoskeletal: Denies: back pain Skin: Denies: rash, change in color Neurological: Denies: headache Past Medical History Past Medical History: GERD/Reflux, GI Bleed Additional Past Medical History / Comment(s): gallstones, kidney stones, D&C History of Any Multi-Drug Resistant Organisms: None Reported Past Surgical History: Section, Cholecystectomy, Tubal Ligation Additional Past Surgical History / Comment(s): neck biopsy (lymph node ) Past Anesthesia/Blood Transfusion Reactions: No Reported Reaction Past Psychological History: Anxiety, Bipolar, Depression, PTSD Smoking Status: Never smoker Past Alcohol Use History: None Reported Past Drug Use History: None Reported - Past Family History Mother Family Medical History: Diabetes Mellitus, Hyperlipidemia, Hypertension, Myocardial Infarction ([place]) General Exam - General Exam Comments Initial Comments: Sitting up in bed. No acute distress. Conversing normally. Calm, pleasant. Limitations: no limitations General appearance: alert, in no apparent distress Head exam: Present: atraumatic, normocephalic Eye exam: Present: normal appearance, PERRL, EOMI. Absent: scleral icterus ENT exam: Present: mucous membranes moist Neck exam: Present: normal inspection Respiratory exam: Present: normal lung sounds bilaterally. Absent: respiratory distress, wheezes, rales, accessory muscle use, decreased breath sounds Cardiovascular Exam: Present: normal rhythm, tachycardia GI/Abdominal exam: Present: soft, normal bowel sounds, other (Obese). Absent: distended, tenderness, guarding, rebound, rigid Extremities exam: Present: other (No gross deformities) Neurological exam: Present: alert, oriented X3 Psychiatric exam: Present: normal affect, normal mood Skin exam: Present: warm, dry, intact, normal color. Absent: rash, cyanosis, diaphoretic, erythema, pallor Course Vital Signs 07/06/17 07/06/17 16:58 18:18 Temperature 98.6 F Pulse Rate 134 H 111 H Respiratory 18 18 Rate Blood Pressure 129/79 134/75 O2 Sat by Pulse 99 100 Oximetry Medical Decision Making - Medical Decision Making Patient tachycardic heart rate in 120s on arrival. Sinus tachycardia on the monitor. Patient states she has a history of tachycardia, heart rate normally runs high, states she has a history of anxiety which usually elevates it. EKG on previous visit showed sinus tachycardia Patient pain free on arrival. Patient states she is still nauseated, Protonix and Zofran ordered. Hb 12.3 Patient reevaluated. Nausea resolved. Hemoglobin appears stable compared to previous. Patient feels comfortable being discharged home. Patient agrees to follow-up with Dr. Vyas tomorrow for discussion of symptoms and repeat blood work. Patient to return to ER for new or worsening symptoms including lightheadedness, syncope, increased bleeding. Rx zofran given. Pt to continue protonix at home. - Lab Data Result diagrams: 07/06/17 17:15 07/06/17 17:15 Lab Results 07/06/17 07/06/17 07/06/17 Range/Units 17:15 17:15 17:15 WBC 12.0 H (3.8-10.6) k/uL RBC 5.15 (3.80-5.40) m/uL Hgb 12.3 (11.4-16.0) gm/dL Hct 38.4 (34.0-46.0) % MCV 74.5 L (80.0-100.0) fL MCH 23.9 L (25.0-35.0) pg MCHC 32.1 (31.0-37.0) g/dL RDW 16.4 H (11.5-15.5) % Plt Count 315 (150-450) k/uL Neutrophils % 68 % Lymphocytes % 23 % Monocytes % 4 % Eosinophils % 5 % Basophils % 1 % Neutrophils # 8.1 H (1.3-7.7) k/uL Lymphocytes # 2.7 (1.0-4.8) k/uL Monocytes # 0.4 (0-1.0) k/uL Eosinophils # 0.6 (0-0.7) k/uL Basophils # 0.1 (0-0.2) k/uL Anisocytosis Slight Microcytosis Slight PT 9.6 (9.0-12.0) sec INR 1.0 (<1.2) APTT 23.2 (22.0-30.0) sec Sodium 144 (137-145) mmol/L Potassium 4.3 (3.5-5.1) mmol/L Chloride 109 H (98-107) mmol/L Carbon Dioxide 22 (22-30) mmol/L Anion Gap 13 mmol/L BUN 21 H (7-17) mg/dL Creatinine 0.60 (0.52-1.04) mg/dL Est GFR (CKD-EPI)AfAm >90 (>60 ml/min/1.73 sqM) Est GFR (CKD-EPI)NonAf >90 (>60 ml/min/1.73 sqM) Glucose 107 H (74-99) mg/dL Calcium 9.5 (8.4-10.2) mg/dL Total Bilirubin 0.3 (0.2-1.3) mg/dL AST 24 (14-36) U/L ALT 38 (9-52) U/L Alkaline Phosphatase 124 (38-126) U/L Total Protein 6.6 (6.3-8.2) g/dL Albumin 3.8 (3.5-5.0) g/dL Lipase 76 (23-300) U/L Stool Occult Blood (Negative) Blood Type Blood Type Recheck Antibody Screen Spec Expiration Date 07/06/17 07/06/17 Range/Units 17:15 18:59 WBC (3.8-10.6) k/uL RBC (3.80-5.40) m/uL Hgb (11.4-16.0) gm/dL Hct (34.0-46.0) % MCV (80.0-100.0) fL MCH (25.0-35.0) pg MCHC (31.0-37.0) g/dL RDW (11.5-15.5) % Plt Count (150-450) k/uL Neutrophils % % Lymphocytes % % Monocytes % % Eosinophils % % Basophils % % Neutrophils # (1.3-7.7) k/uL Lymphocytes # (1.0-4.8) k/uL Monocytes # (0-1.0) k/uL Eosinophils # (0-0.7) k/uL Basophils # (0-0.2) k/uL Anisocytosis Microcytosis PT (9.0-12.0) sec INR (<1.2) APTT (22.0-30.0) sec Sodium (137-145) mmol/L Potassium (3.5-5.1) mmol/L Chloride (98-107) mmol/L Carbon Dioxide (22-30) mmol/L Anion Gap mmol/L BUN (7-17) mg/dL Creatinine (0.52-1.04) mg/dL Est GFR (CKD-EPI)AfAm (>60 ml/min/1.73 sqM) Est GFR (CKD-EPI)NonAf (>60 ml/min/1.73 sqM) Glucose (74-99) mg/dL Calcium (8.4-10.2) mg/dL Total Bilirubin (0.2-1.3) mg/dL AST (14-36) U/L ALT (9-52) U/L Alkaline Phosphatase (38-126) U/L Total Protein (6.3-8.2) g/dL Albumin (3.5-5.0) g/dL Lipase (23-300) U/L Stool Occult Blood Positive H (Negative) Blood Type B Positive Blood Type Recheck No Antibody Screen NEGATIVE Spec Expiration Date 07/09/2017 - 2315 Disposition Clinical Impression: GI bleed Disposition: HOME SELF-CARE Condition: Good Instructions: Gastrointestinal Bleeding (ED) Additional Instructions: Follow-up care limousine driver tomorrow for repeat blood work. Return to ER for new or worsening symptoms including syncope, lightheadedness, increased bleeding. Prescriptions: Ondansetron Odt [Zofran Odt] 4 mg PO Q8HR PRN #6 tab PRN Reason: Nausea Referrals: Olvin Keenan MD [Primary Care Provider] - 1-2 days
[2017-07-06 18:03] LABS: Anisocytosis Slight; Basophils # (A) 0.1 k/uL (0-0.2); Basophils % (A) 1 %; Eosinophils # (A) 0.6 k/uL (0-0.7); Eosinophils % (A) 5 %; HCT 38.4 % (34.0-46.0); HGB 12.3 gm/dL (11.4-16.0); Lymphocytes # (A) 2.7 k/uL (1.0-4.8); Lymphocytes % (A) 23 %; MCH 23.9 pg (25.0-35.0); MCHC 32.1 g/dL (31.0-37.0); MCV 74.5 fL (80.0-100.0); Mean Platelet Volume 6.8; Microcytosis Slight; Monocytes # (A) 0.4 k/uL (0-1.0); Monocytes % (A) 4 %; Neutrophils # (A) 8.1 k/uL (1.3-7.7); Neutrophils % (A) 68 %; Platelet Count 315 k/uL (150-450); RBC 5.15 m/uL (3.80-5.40); RDW 16.4 % (11.5-15.5)
[2017-07-06 18:12] LABS: ALT 38 U/L (9-52); AST 24 U/L (14-36); Albumin 3.8 g/dL (3.5-5.0); Alkaline Phosphatase 124 U/L (38-126); Anion Gap 13 mmol/L; Blood Urea Nitrogen 21 mg/dL (7-17); Calcium 9.5 mg/dL (8.4-10.2); Carbon Dioxide 22 mmol/L (22-30); Chloride 109 mmol/L (98-107); Glucose 107 mg/dL (74-99); Lipase 76 U/L (23-300); Potassium 4.3 mmol/L (3.5-5.1); Sodium 144 mmol/L (137-145); Total Bilirubin 0.3 mg/dL (0.2-1.3); Total Protein 6.6 g/dL (6.3-8.2)
[2017-07-06 18:15] LABS: Partial Thromboplastin Time 23.2 sec (22.0-30.0); Prothrombin Time 9.6 sec (9.0-12.0)
[2017-07-06 18:19] VITALS: PULSE 111
[2017-07-06 19:19] VITALS: BP 147/87; TEMP 97.4
== END 2017-07-06 19:19 | disposition home or self-care (01) ==
LOC: EC 16:55
DX: K92.2 Gastrointestinal hemorrhage, unspecified (principal); K92.0 Hematemesis; R00.0 Tachycardia, unspecified; F41.9 Anxiety disorder, unspecified; F31.9 Bipolar disorder, unspecified; F43.10 Post-traumatic stress disorder, unspecified; Z87.442 Personal history of urinary calculi; Z79.899 Other long term (current) drug therapy
CPT/HCPCS: 36415; 86900; 86901; 80053; 83690; 85025; 85610; 85730; 86850; 82272; 99284; 96374; 96361 ×2; 96372; J2405; C9113

== ENCOUNTER → 2017-07-14 | Outpatient (CLI) | payer OTHER ==
--- NOTE | 2017-07-14 11:16 | CT ---
EXAMINATION TYPE: CT neck chest w con DATE OF EXAM: 07/14/2017 11:06 AM COMPARISON: Prior CT neck and chest 05/07/2016. HISTORY: Lymphadenopathy CT DLP: 2086 mGycm Automated exposure control for dose reduction was used. CONTRAST: CT scan of the neck and chest is performed following with IV Contrast, patient injected with 100 mL o f Omnipaque 300. Axial images are obtained, coronal and sagittal reformatted images are reviewed. FINDINGS: NECK: Left greater than right maxillary sinus shows a probable mucus retention cyst or polyp in the m axillary antrum, increased from prior. Airway: Some inflammatory change is mild within the ethmoid air cells.. Parotid/submandibular glands: No gross abnormality seen. Carotid/Vascular Structures: Prominent enhancement of the internal mammary vein suspected. Osseous Structures: Stable Other: The soft tissue masses within the neck are again seen, jugulodigastric nodes are borderline bu t stable to slightly improved in short axis measurement. Possible no just deep to the mandible at the level just superior to the left submandibular gland measures approximately 13 to 14 mm in short axis which may be slightly increased as compared to prior. CHEST: Thymic remnant again noted. No mediastinal, axillary, or hilar adenopathy evident. Spleen is n ot enlarged in its visualized portion is incompletely evaluated. Patient is post cholecystectomy. [place] er shows low attenuation possibly due to hepatic steatosis. No endobronchial lesion, pleural or peric ardial effusion. IMPRESSION: Findings are similar to prior exam. Sinus disease as described.
== END | disposition home or self-care (01) ==
LOC: RADCTMAIN 08:53
PROVIDERS: ATTEND Internal Medicine Hematology & Oncology
DX: R59.0 Localized enlarged lymph nodes (principal)
CPT/HCPCS: 70491; 71260; Q9967

== ENCOUNTER 2017-07-17 18:06 | Observation (INO) | payer OTHER ==
[2017-07-17] MEDS ORDERED: SODIUM CHLORIDE 0.9% 500 ML IV STA (19:27)
[2017-07-17] MEDS ORDERED: METOCLOPRAMIDE 5 MG/ML 2 ML VIAL IVP STA (19:27)
[2017-07-17] MEDS ORDERED: PANTOPRAZOLE 40 MG/10 ML VIAL IVP STA (19:27)
--- NOTE | 2017-07-17 19:29 | ED ---
General Adult HPI - General Chief complaint: Abdominal Pain Stated complaint: vomiting blood Time Seen by Provider: 07/17/17 19:21 Source: patient, RN notes reviewed Mode of arrival: ambulatory Limitations: no limitations - History of Present Illness Initial comments: Patient is a pleasant 27-year-old female presenting to the emergency Department with vomiting. Onset was around 3 PM. Patient has had several episodes of vomiting mixed with some blood. Patient has had similar episodes previously, approximately 10 times. Patient has had a couple of strokes done previously. There was concern for gastritis. Patient states symptoms are similar however somewhat worse than normal. Patient still feels nauseated. Discomfort is in the epigastric region. Patient does admit to feeling somewhat anxious as well. - Related Data Home Medications Medication Instructions Recorded Confirmed ARIPiprazole [Abilify] 15 mg PO HS 06/21/17 07/17/17 Amitriptyline HCl [Elavil] 25 mg PO HS 06/21/17 07/17/17 Gabapentin [Neurontin] 100 mg PO TID 06/21/17 07/17/17 LORazepam [Ativan] 1 mg PO TID PRN 06/21/17 07/17/17 Previous Rx's Medication Instructions Recorded Dicyclomine [Bentyl] 20 mg PO QID #20 tablet 07/04/17 Ondansetron Odt [Zofran Odt] 4 mg PO Q8HR PRN #6 tab 07/06/17 Allergies Allergy/AdvReac Type Severity Reaction Status Date / Time No Known Allergies Allergy Verified 07/17/17 19:38 Review of Systems ROS Statement: Those systems with pertinent positive or pertinent negative responses have been documented in the HPI. ROS Other: All systems not noted in ROS Statement are negative. Constitutional: Denies: fever Eyes: Denies: eye pain ENT: Denies: ear pain Respiratory: Denies: cough Cardiovascular: Denies: chest pain Endocrine: Denies: fatigue Gastrointestinal: Reports: abdominal pain, nausea, vomiting, hematemesis Genitourinary: Denies: dysuria Musculoskeletal: Denies: back pain Skin: Denies: rash Neurological: Denies: weakness Past Medical History Past Medical History: GERD/Reflux, GI Bleed Additional Past Medical History / Comment(s): gallstones, kidney stones, D&C History of Any Multi-Drug Resistant Organisms: None Reported Past Surgical History: Section, Cholecystectomy, Tubal Ligation Additional Past Surgical History / Comment(s): neck biopsy (lymph node ) Past Anesthesia/Blood Transfusion Reactions: No Reported Reaction Past Psychological History: Anxiety, Bipolar, Depression, PTSD Smoking Status: Never smoker Past Alcohol Use History: None Reported Past Drug Use History: None Reported - Past Family History Mother Family Medical History: Diabetes Mellitus, Hyperlipidemia, Hypertension, Myocardial Infarction ([place]) General Exam Limitations: no limitations General appearance: alert, in no apparent distress Head exam: Present: atraumatic Eye exam: Present: normal appearance, PERRL ENT exam: Present: normal oropharynx Neck exam: Present: normal inspection Respiratory exam: Present: normal lung sounds bilaterally Cardiovascular Exam: Present: tachycardia GI/Abdominal exam: Present: soft, tenderness (Moderate epigastric tenderness to palpation), normal bowel sounds. Absent: distended, guarding, rebound, rigid, pulsatile mass Extremities exam: Present: normal inspection. Absent: pedal edema, calf tenderness Neurological exam: Present: alert Psychiatric exam: Present: normal affect, normal mood Skin exam: Present: normal color Course Vital Signs 07/17/17 07/17/17 18:29 19:51 Temperature 97.9 F 97.6 F Pulse Rate 127 H 118 H Respiratory 18 18 Rate Blood Pressure 142/87 125/63 O2 Sat by Pulse 100 100 Oximetry Medical Decision Making - Medical Decision Making Patient reevaluated and does appear somewhat improved however still complains of epigastric discomfort. Patient was updated on results and plan. Case was discussed in detail with Dr. conrad, who will admit for Dr. Keenan. He did evaluate the patient in the emergency center. - Lab Data Result diagrams: 07/17/17 19:20 07/17/17 19:20 Lab Results 07/17/17 07/17/17 07/17/17 Range/Units 19:20 19:20 19:20 WBC 12.1 H (3.8-10.6) k/uL RBC 5.08 (3.80-5.40) m/uL Hgb 11.7 (11.4-16.0) gm/dL Hct 37.8 (34.0-46.0) % MCV 74.4 L (80.0-100.0) fL MCH 23.1 L (25.0-35.0) pg MCHC 31.0 (31.0-37.0) g/dL RDW 16.1 H (11.5-15.5) % Plt Count 330 (150-450) k/uL Neutrophils % 68 % Lymphocytes % 24 % Monocytes % 3 % Eosinophils % 4 % Basophils % 0 % Neutrophils # 8.3 H (1.3-7.7) k/uL Lymphocytes # 2.9 (1.0-4.8) k/uL Monocytes # 0.4 (0-1.0) k/uL Eosinophils # 0.4 (0-0.7) k/uL Basophils # 0.0 (0-0.2) k/uL Anisocytosis Slight Microcytosis Slight PT 10.1 (9.0-12.0) sec INR 1.0 (<1.2) APTT 22.6 (22.0-30.0) sec Sodium 145 (137-145) mmol/L Potassium 3.7 (3.5-5.1) mmol/L Chloride 106 (98-107) mmol/L Carbon Dioxide 27 (22-30) mmol/L Anion Gap 12 mmol/L BUN 17 (7-17) mg/dL Creatinine 0.74 (0.52-1.04) mg/dL Est GFR (CKD-EPI)AfAm >90 (>60 ml/min/1.73 sqM) Est GFR (CKD-EPI)NonAf >90 (>60 ml/min/1.73 sqM) Glucose 120 H (74-99) mg/dL Calcium 9.2 (8.4-10.2) mg/dL Total Bilirubin 0.4 (0.2-1.3) mg/dL AST 23 (14-36) U/L ALT 38 (9-52) U/L Alkaline Phosphatase 120 (38-126) U/L Total Protein 6.3 (6.3-8.2) g/dL Albumin 3.6 (3.5-5.0) g/dL Amylase 40 (30-110) U/L Lipase 72 (23-300) U/L Urine Color Urine Appearance (Clear) Urine pH (5.0-8.0) Ur Specific Ulysses (1.001-1.035) Urine Protein (Negative) Urine Glucose (UA) (Negative) Urine Ketones (Negative) Urine Blood (Negative) Urine Nitrite (Negative) Urine Bilirubin (Negative) Urine Urobilinogen (<2.0) mg/dL Ur Leukocyte Esterase (Negative) 07/17/17 Range/Units 19:38 WBC (3.8-10.6) k/uL RBC (3.80-5.40) m/uL Hgb (11.4-16.0) gm/dL Hct (34.0-46.0) % MCV (80.0-100.0) fL MCH (25.0-35.0) pg MCHC (31.0-37.0) g/dL RDW (11.5-15.5) % Plt Count (150-450) k/uL Neutrophils % % Lymphocytes % % Monocytes % % Eosinophils % % Basophils % % Neutrophils # (1.3-7.7) k/uL Lymphocytes # (1.0-4.8) k/uL Monocytes # (0-1.0) k/uL Eosinophils # (0-0.7) k/uL Basophils # (0-0.2) k/uL Anisocytosis Microcytosis PT (9.0-12.0) sec INR (<1.2) APTT (22.0-30.0) sec Sodium (137-145) mmol/L Potassium (3.5-5.1) mmol/L Chloride (98-107) mmol/L Carbon Dioxide (22-30) mmol/L Anion Gap mmol/L BUN (7-17) mg/dL Creatinine (0.52-1.04) mg/dL Est GFR (CKD-EPI)AfAm (>60 ml/min/1.73 sqM) Est GFR (CKD-EPI)NonAf (>60 ml/min/1.73 sqM) Glucose (74-99) mg/dL Calcium (8.4-10.2) mg/dL Total Bilirubin (0.2-1.3) mg/dL AST (14-36) U/L ALT (9-52) U/L Alkaline Phosphatase (38-126) U/L Total Protein (6.3-8.2) g/dL Albumin (3.5-5.0) g/dL Amylase (30-110) U/L Lipase (23-300) U/L Urine Color Yellow Urine Appearance Clear (Clear) Urine pH 5.5 (5.0-8.0) Ur Specific Ulysses 1.031 (1.001-1.035) Urine Protein Trace H (Negative) Urine Glucose (UA) Negative (Negative) Urine Ketones Negative (Negative) Urine Blood Negative (Negative) Urine Nitrite Negative (Negative) Urine Bilirubin Negative (Negative) Urine Urobilinogen 2.0 (<2.0) mg/dL Ur Leukocyte Esterase Negative (Negative) - Radiology Data Radiology results: image reviewed (Abdominal x-ray shows no acute process) Disposition Clinical Impression: Hematemesis Disposition: ADMITTED IP TO THIS [facility] Referrals: Olvin Keenan MD [Primary Care Provider] - 1-2 days Decision Time: 21:15
[2017-07-17 19:36] LABS: Anisocytosis Slight; Basophils % (A) 0 %; Eosinophils # (A) 0.4 k/uL (0-0.7); Eosinophils % (A) 4 %; HCT 37.8 % (34.0-46.0); HGB 11.7 gm/dL (11.4-16.0); Lymphocytes # (A) 2.9 k/uL (1.0-4.8); Lymphocytes % (A) 24 %; MCH 23.1 pg (25.0-35.0); MCV 74.4 fL (80.0-100.0); Mean Platelet Volume 6.5; Microcytosis Slight; Monocytes # (A) 0.4 k/uL (0-1.0); Monocytes % (A) 3 %; Neutrophils # (A) 8.3 k/uL (1.3-7.7); Neutrophils % (A) 68 %; Platelet Count 330 k/uL (150-450); RBC 5.08 m/uL (3.80-5.40); RDW 16.1 % (11.5-15.5); WBC 12.1 k/uL (3.8-10.6)
[2017-07-17 19:43] LABS: ALT 38 U/L (9-52); AST 23 U/L (14-36); Albumin 3.6 g/dL (3.5-5.0); Alkaline Phosphatase 120 U/L (38-126); Amylase 40 U/L (30-110); Anion Gap 12 mmol/L; Blood Urea Nitrogen 17 mg/dL (7-17); Calcium 9.2 mg/dL (8.4-10.2); Carbon Dioxide 27 mmol/L (22-30); Chloride 106 mmol/L (98-107); Glucose 120 mg/dL (74-99); Lipase 72 U/L (23-300); Potassium 3.7 mmol/L (3.5-5.1); Sodium 145 mmol/L (137-145); Total Bilirubin 0.4 mg/dL (0.2-1.3); Total Protein 6.3 g/dL (6.3-8.2)
[2017-07-17 19:46] LABS: Partial Thromboplastin Time 22.6 sec (22.0-30.0); Prothrombin Time 10.1 sec (9.0-12.0)
--- NOTE | 2017-07-17 20:22 | XR ---
EXAMINATION TYPE: XR KUB DATE OF EXAM: 07/17/2017 COMPARISON: [id number] HISTORY: Pain TECHNIQUE: Single supine KUB image of the abdomen is obtained FINDINGS: Retained barium within the colon. Cholecystectomy clips. Small bowel demonstrates no evidence for dilatation or air fluid levels. Gas and fecal material is seen in non-distended colon. No convincing evidence for pneumoperitoneum. No unusual calcifications. The lung bases are clear. The osseous structures are intact. IMPRESSION: 1. Overall nonobstructive bowel gas pattern.
[2017-07-17] MEDS ORDERED: MORPHINE SULFATE/PF 10MG/10ML VL IVP STA (20:47)
[2017-07-17 20:50] LABS: Appearance,Urine Clear (Clear); Bilirubin,Urine Negative (Negative); Blood,Urine Negative (Negative); Color,Urine Yellow; Glucose,Urine (UA) Negative (Negative); Ketones,Urine Negative (Negative); Leukocyte Esterase,Urine Negative (Negative); Nitrite,Urine Negative (Negative); PH, Urine 5.5 (5.0-8.0); Protein,Urine Trace (Negative); Specific Gravity,Urine 1.031 (1.001-1.035)
[2017-07-17] MEDS ORDERED: NALOXONE 0.4 MG/ML 1 ML VIAL IV PRN ×2 (21:15→22:57)
[2017-07-17] MEDS ORDERED: ONDANSETRON 4 MG/2 ML VIAL IVP PRN (21:15)
[2017-07-17] MEDS: SODIUM CHLORIDE 0.9% 1,000 ML IV SCH (21:20)
[2017-07-17] MEDS ORDERED: LORazepam 1 MG TAB PO PRN (22:56)
[2017-07-17] MEDS ORDERED: MELATONIN 3 MG TABLET PO PRN (22:57)
--- NOTE | 2017-07-17 23:37 | HP ---
HISTORY AND PHYSICAL DATE OF ADMISSION: 07/17/2017 PRESENT COMPLAINT: Vomiting blood. HISTORY OF PRESENTING COMPLAINT: A very pleasant 27-year-old patient Dr. Keeann whose chronic stable medical conditions include bipolar disorder, PTSD, esophagitis. The patient around 3:00 was working at [employer], went to the bathroom and just felt uncomfortable and then started vomiting, had about 6 mouthfuls of fresh blood. Also complaining of left upper quadrant pain. The patient was here with a similar presentation back in January, did have an EGD by Dr. Hannah Vyas at that time, was found to have some esophagitis, mild gastritis. The patient denies taking any NSAIDs, any alcohol, smoking, as this simply came on. The patient's significant other is at the bedside. The patient has some minimal heartburn, if any, normally. REVIEW OF SYSTEMS: CONSTITUTIONAL: Tired. HEENT: None. RESPIRATORY: None. CARDIOVASCULAR: None. GASTROINTESTINAL: As above. GENITOURINARY: None. MUSCULOSKELETAL: None. DERMATOLOGIC: None. HEMATOLOGIC: None. LYMPHATIC: None. PSYCHIATRY: None. NEUROLOGICAL: None. PAST MEDICAL HISTORY: Bipolar, PTSD, minimal esophagitis, gallstones, kidney stones. PAST SURGICAL HISTORY: , cholecystectomy, tubal ligation, lymph node biopsy, x4. PSYCH HISTORY: PTSD and bipolar disorder. SOCIAL HISTORY: Lives with her mother, works at [employer]. Does not smoke or drink alcohol. Denies use of any recreational drugs. FAMILY HISTORY: Diabetes, hyperlipidemia, hypertension, myocardial infarction. HOME MEDICATIONS: 1. Zofran 4 mg q.8h p.r.n. 2. Ativan 1 mg p.o. t.i.d. p.r.n. 3. Neurontin 100 mg p.o. t.i.d. 4. Bentyl 20 mg p.o. q.i.d. 5. Elavil 25 mg at bedtime. 6. Abilify 50 mg p.o. q.h.s. ALLERGIES: None. EXAMINATION: VITAL SIGNS: On presentation, temperature 97.9, pulse 127, respirations 18, blood pressure 142/87, pulse ox 100% on room air. GENERAL APPEARANCE: Well-built, BMI 48.5, lying in bed, tired-appearing. EYES: Pupils equal. Conjunctivae normal. HEENT: External appearance of nose and ears normal. Oral cavity normal. NECK: JVD not raised. Mass not palpable. RESPIRATORY: Effort normal. LUNGS: Fair air entry. CARDIOVASCULAR: First and second sounds normal. No edema. ABDOMEN: Left upper abdominal tenderness. No guarding, rigidity. Liver and spleen not palpable. LYMPHATIC: No lymph nodes palpable in neck or axillae. PSYCHIATRY: Alert and oriented x3. Mood and affect normal. NEUROLOGICAL: Pupils appear grossly intact. Power and sensation grossly intact. INVESTIGATIONS: White count 12.1, hemoglobin 11.7, platelets normal at 330. Potassium 3.7. ASSESSMENT: 1. This is a patient who presented with about 6 mouthfuls of throwing up blood with some left upper outer quadrant tenderness. The patient did have an esophagogastroduodenoscopy about 5 months ago and it was essentially unremarkable. The patient may need a capsule endoscopy to rule out any angiodysplasia, though I cannot explain the left upper abdominal pain. 2. Bipolar disorder, controlled. 3. Posttraumatic stress disorder. 4. Morbid obesity, BMI of 48.5. 5. Leukocytosis, likely reactive. PLAN: We will check a CBC in the morning. Home medications will be continued. The patient will be made n.p.o. except for ice chips. GI has been consulted with a view to possible capsule endoscopy. The patient may need a repeat EGD. Care was discussed with the patient and significant other at the bedside. Questions were answered. MMODL / IJN: [id number] /
[2017-07-17] MEDS: ACETAMINOPHEN TAB 325 MG TAB PO PRN (23:50)
[2017-07-17] MEDS: ARIPiprazole 15 MG TAB PO SCH (23:51)
[2017-07-17] MEDS: AMITRIPTYLINE HCL 25 MG TAB PO SCH (23:51)
[2017-07-17] MEDS: GABAPENTIN 100 MG CAP PO SCH (23:51)
[2017-07-17] MEDS: DICYCLOMINE 20 MG TAB PO SCH (23:51)
[2017-07-18] MEDS: SODIUM CHLORIDE 0.9% 1,000 ML IV SCH ×3 (05:21→20:27)
[2017-07-18 06:56] LABS: Basophils % (A) 1 %; Eosinophils # (A) 0.5 k/uL (0-0.7); Eosinophils % (A) 6 %; HCT 34.8 % (34.0-46.0); HGB 11.2 gm/dL (11.4-16.0); Hypochromasia Slight; Lymphocytes % (A) 35 %; MCH 24.2 pg (25.0-35.0); MCHC 32.2 g/dL (31.0-37.0); MCV 75.3 fL (80.0-100.0); Mean Platelet Volume 6.6; Microcytosis Slight; Monocytes # (A) 0.4 k/uL (0-1.0); Monocytes % (A) 4 %; Neutrophils # (A) 4.4 k/uL (1.3-7.7); Neutrophils % (A) 53 %; Platelet Count 285 k/uL (150-450); RBC 4.61 m/uL (3.80-5.40); RDW 15.4 % (11.5-15.5); WBC 8.4 k/uL (3.8-10.6)
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
[2017-07-18] MEDS: GABAPENTIN 100 MG CAP PO SCH ×3 (08:34→20:26)
[2017-07-18] MEDS: DICYCLOMINE 20 MG TAB PO SCH ×4 (08:34→22:26)
[2017-07-18] MEDS: ACETAMINOPHEN TAB 325 MG TAB PO PRN ×3 (08:40→20:26)
[2017-07-18] MEDS: PANTOPRAZOLE 40 MG/10 ML VIAL IV SCH (10:41)
--- NOTE | 2017-07-18 15:41 | PN ---
PROGRESS NOTE DATE OF SERVICE: 07/18/2017 PRESENTING COMPLAINT: Vomiting blood. INTERVAL HISTORY: This patient presented with episodes of hematemesis with a prior EGD a few months ago negative. Patient continues to have left upper quadrant pain, is on ice chips. Seen by GI. Awaiting further input. At this point it does not seem that they plan to do any endoscopy. REVIEW OF SYSTEMS: Done for constitutional, cardiovascular, GI, pulmonary; relevant findings as above. CURRENT MEDICATIONS: Current medications are reviewed that include IV Protonix and IV fluids. PHYSICAL EXAMINATION: Temperature 98.6, pulse 93, respiration 16, blood pressure 126/69, pulse ox 97% on room air. GENERAL APPEARANCE: Lying in bed, comfortable. EYES: Pupils equal. Conjunctivae normal. HEENT: External appearance of nose and ears normal. Oral cavity normal. NECK: JVD not raised. Mass not palpable. RESPIRATORY: Effort normal. Lungs are clear. CARDIOVASCULAR: First and second sounds normal. No edema. ABDOMEN: Left upper abdomen tenderness. No guarding or rigidity. Liver and spleen not palpable. PSYCHIATRY: Alert and oriented x3. Mood and affect normal. INVESTIGATIONS: White count 8.4, hemoglobin 11.2. ASSESSMENT: 1. Acute hematemesis in a patient who had an EGD that was negative. Patient may benefit from a capsule endoscopy, though cannot explain why she is tender in the left upper quadrant. 2. Microcytic anemia. 3. Bipolar disorder, controlled. 4. Post-traumatic stress disorder. 5. Morbid obesity; body mass index of 48.5. 6. Leukocytosis, likely reactive. PLAN: Follow up with GI. Continue current medication and treatment plan. Will send off some iron studies and repeat hemoglobin in the morning. MMODL / IJN: [id number] /
[2017-07-18] MEDS: ARIPiprazole 15 MG TAB PO SCH (20:26)
[2017-07-18] MEDS: AMITRIPTYLINE HCL 25 MG TAB PO SCH (20:26)
[2017-07-19] MEDS: SODIUM CHLORIDE 0.9% 1,000 ML IV SCH ×2 (00:55→14:22)
[2017-07-19 03:03] VITALS: PULSE 99; TEMP 97.6
[2017-07-19] MEDS: PANTOPRAZOLE 40 MG/10 ML VIAL IV SCH (08:50)
[2017-07-19] MEDS: DICYCLOMINE 20 MG TAB PO SCH ×2 (08:51→12:41)
[2017-07-19] MEDS: GABAPENTIN 100 MG CAP PO SCH (08:51)
[2017-07-19 09:52] VITALS: BP 122/57; RESP 20
--- NOTE | 2017-07-19 11:48 | PN ---
PROGRESS NOTE Patient is a 27-year-old pleasant white female, came to the hospital after having a few episodes of hematemesis. She apparently threw up food with small focus of fresh blood. She was complaining of some left upper quadrant abdominal pain. Initial hemoglobin was 11.7, this morning is 7.2. Since being in the hospital, she was on IV Protonix 40 mg q.12 hours. Symptoms have improved. She was started on regular diet yesterday and tolerating well. This morning, she feels her abdominal pain is improving. The patient had a similar episode in February of 2017 and had an upper endoscopy done by me that showed some mild gastritis and LA grade B reflux esophagitis. Since then, she has been maintained on Protonix 40 mg twice daily. PHYSICAL EXAMINATION: She appears comfortable. No apparent distress. Vital signs are stable. Blood pressure is 110/72, pulse rate 105, temperature 97.5. HEENT: Examination unremarkable. Conjunctivae pink. Sclerae anicteric. Oral cavity no lesions. NECK: No jugular venous distention or lymph node enlargement. CHEST: Clear to auscultation. HEART: Regular rate and rhythm. ABDOMEN: Obese, bowel sounds are positive. No organomegaly. It was nontender. EXTREMITIES: No pedal edema. SKIN: No rashes. NEUROLOGIC: Alert and oriented x3. No focal deficits. LAB: From today WBC 8.4, hemoglobin 11.2, platelets are normal. Basic metabolic panel was done yesterday that was normal. IMPRESSION: Nausea, vomiting/hematemesis of 1 day duration. The patient is on Protonix 40 mg q.12 hours, doing well. Hemoglobin stable. No further episodes of bleeding. Last upper endoscopy in February of 2017 showed mild gastritis and esophagitis. RECOMMENDATIONS: 1. Advance diet as tolerated. 2. Continue with Protonix 40 mg b.i.d. 3. She can be discharged home today with outpatient follow up in 1-2 weeks. MMODL / IJN: [id number] /
[2017-07-19 13:50] LABS: Iron Saturation 23.78 (12.00-45.00)
--- NOTE | 2017-07-19 16:54 | DS ---
DISCHARGE SUMMARY DATE OF ADMISSION: 07/17/2017 DATE OF DISCHARGE: 07/19/2017 FINAL DIAGNOSIS: 1. Hematemesis, could be Martine-Guevara tear. 2. Microcytic anemia, chronic. 3. Bipolar disorder, controlled. 4. Posttraumatic stress disorder. 5. Morbid obesity, body mass index of 48.5. 6. Leukocytosis, likely reactive. HOSPITAL COURSE: This patient presented with hematemesis not too long ago. Patient had an EGD that showed mild esophagitis and gastritis. Patient was seen by Dr. Coleen Vyas with who I discussed today. Patient is okay to be discharged. Feeling well. Tolerating a diet. Patient's hemoglobin was 11.2. Patient is keen to go home. DISCHARGE MEDICATIONS: 1. Abilify 50 mg p.o. q.h.s. 2. Elavil 25 mg q.h.s. 3. Neurontin 100 mg p.o. t.i.d. 4. Ativan 1 mg p.o. t.i.d. 5. Bentyl 20 mg p.o. q.i.d. 6. Zofran 4 mg q.8 p.r.n. 7. Prilosec 20 mg p.o. before breakfast. Follow up with Dr. Keenan in 1 or 2 days; follow up with Dr. Hannah Vyas in 1 week. PHYSICAL EXAM: Lungs are clear. CARDIOVASCULAR: First and second sounds are normal. ABDOMEN: Soft, nontender. MMODL / IJN: [id number] /
== END 2017-07-19 15:03 | disposition home or self-care (01) ==
LOC: EC 18:06 → 3SUR 21:15
PROVIDERS: ADMIT Hospitalist; ATTEND Hospitalist
DX: K92.0 Hematemesis (principal); R10.13 Epigastric pain; R10.12 Left upper quadrant pain; D72.829 Elevated white blood cell count, unspecified; D50.9 Iron deficiency anemia, unspecified; F31.9 Bipolar disorder, unspecified; F43.10 Post-traumatic stress disorder, unspecified; F41.9 Anxiety disorder, unspecified; Z68.42 Body mass index [BMI] 45.0-49.9, adult; E66.01 Morbid (severe) obesity due to excess calories; K21.0 Gastro-esophageal reflux disease with esophagitis; K29.70 Gastritis, unspecified, without bleeding; Z87.442 Personal history of urinary calculi; Z79.899 Other long term (current) drug therapy; Z83.3 Family history of diabetes mellitus; Z82.49 Family history of ischemic heart disease and other diseases of the circulatory system; Z90.49 Acquired absence of other specified parts of digestive tract
CPT/HCPCS: 99285 ×2; 96374 ×2; 96375 ×4; 96361 ×5; 96376 ×2; 36415; 80053; 82728; 82150; 83540; 83550; 83690; 85025 ×2; 85610; 85730; 81003; 74018; G0378 ×3; J2765; J2405; C9113 ×3; J2270

== ENCOUNTER 2017-10-19 17:52 | Emergency (ER) | payer OTHER ==
[2017-10-19 18:15] VITALS: RESP 18
--- NOTE | 2017-10-19 20:14 | XR ---
EXAMINATION TYPE: XR soft tissue neck DATE OF EXAM: 10/19/2017 COMPARISON: NONE HISTORY: Pain sore throat swollen neck TECHNIQUE: Soft tissue neck is performed in the AP and lateral projection FINDINGS: Prevertebral space is normal. Epiglottis appears normal. Mild prominence of the adenoid is present. Cervical spine is visualized is unremarkable. Subglottic airway is normal. IMPRESSION: 1. Normal soft tissue neck
--- NOTE | 2017-10-19 20:31 | ED ---
General Adult HPI - General Chief complaint: ENT Stated complaint: sore throat Time Seen by Provider: 10/19/17 18:44 Source: patient, RN notes reviewed Mode of arrival: ambulatory Limitations: no limitations - History of Present Illness Initial comments: 27-year-old female since to the emergency department for a chief complaint of sore throat times one day. Patient denies cough or congestion. Patient denies fevers or chills at home. Patient states it is painful to swallow. Patient denies any difficulty breathing. Patient denies any drooling or distress. Patient denies any known contacts with strep. Patient states she has been able to eat throughout the day. Patient has no other complaints at this time including shortness of breath, chest pain, abdominal pain, nausea or vomiting, headache, or visual changes. - Related Data Home Medications Medication Instructions Recorded Confirmed ARIPiprazole [Abilify] 15 mg PO HS 06/21/17 10/19/17 Gabapentin [Neurontin] 300 mg PO TID 06/21/17 10/19/17 LORazepam [Ativan] 1 mg PO TID PRN 06/21/17 10/19/17 DULoxetine HCL [Cymbalta] 30 mg PO DAILY 10/19/17 10/19/17 Previous Rx's Medication Instructions Recorded Dicyclomine [Bentyl] 20 mg PO QID #20 tablet 07/04/17 Ondansetron Odt [Zofran ODT] 4 mg PO Q8HR PRN #6 tab 07/06/17 Omeprazole [PriLOSEC] 20 mg PO AC-BRKFST #30 cap 07/19/17 Allergies Allergy/AdvReac Type Severity Reaction Status Date / Time No Known Allergies Allergy Verified 07/17/17 19:38 Review of Systems ROS Statement: Those systems with pertinent positive or pertinent negative responses have been documented in the HPI. ROS Other: All systems not noted in ROS Statement are negative. Past Medical History Past Medical History: GERD/Reflux, GI Bleed Additional Past Medical History / Comment(s): gallstones, kidney stones, D&C History of Any Multi-Drug Resistant Organisms: None Reported Past Surgical History: Section, Cholecystectomy, Tubal Ligation Additional Past Surgical History / Comment(s): neck biopsy (lymph node ) 4x Past Anesthesia/Blood Transfusion Reactions: No Reported Reaction Past Psychological History: Anxiety, Bipolar, Depression, PTSD Smoking Status: Never smoker Past Alcohol Use History: None Reported Past Drug Use History: None Reported - Past Family History Mother Family Medical History: Diabetes Mellitus, Hyperlipidemia, Hypertension, Myocardial Infarction ([place]) General Exam - General Exam Comments Initial Comments: Patient is laying back in bed, relaxed. No distress. No drooling. No tripoding. Breathing easily through nares. Limitations: no limitations General appearance: alert Head exam: Present: atraumatic, normocephalic, normal inspection ENT exam: Present: normal exam, mucous membranes moist, TM's normal bilaterally , normal external ear exam. Absent: normal oropharynx (throat appears erythematous. Patent oropharanx. No tonsillar exudates noted bilaterally. Uvula midline.) Neck exam: Present: normal inspection, full ROM (full flexion, extension, rotation bilaterally). Absent: tenderness, meningismus, lymphadenopathy Respiratory exam: Present: normal lung sounds bilaterally. Absent: respiratory distress, wheezes, rales, rhonchi, stridor, chest wall tenderness, accessory muscle use, decreased breath sounds, prolonged expiratory Cardiovascular Exam: Present: regular rate, normal rhythm, normal heart sounds. Absent: systolic murmur, diastolic murmur, rubs, gallop, clicks Course Vital Signs 10/19/17 10/19/17 10/19/17 18:11 19:12 20:37 Temperature 98.5 F 97.4 F L Pulse Rate 115 H 104 H 103 H Respiratory 18 18 18 Rate Blood Pressure 123/79 138/90 O2 Sat by Pulse 96 99 97 Oximetry Medical Decision Making - Medical Decision Making 27-year-old female presents to the emergency department for a chief complaint of sore throat times one day. Patient states she woke up today with a sore throat. Patient states it is painful to swallow. Patient denies any difficulty breathing. Patient denies any cough or congestion. Patient was able to swallow water in the emergency department. On exam patient does have an erythematous oropharynx. No cervical lymphadenopathy. No tonsillar exudates noted bilaterally. Uvula midline. Oropharynx is patent. Patient is laying back in bed in no distress. No difficult breathing, no drooling, no tripoding. Patient is breathing easily through the nose. Lungs are clear to auscultation bilaterally. Patient is 99% on room air without fever. No fever or chills at home. Rapid strep was negative. Culture will be sent. X-ray of the soft tissue neck shows prevertebral space is normal. Epiglottis appears normal. Normal soft tissue neck. Patient will take Motrin and Tylenol for pain. Denies chance of . She will drink cold liquids to soothe the throat. She will follow up with primary care in 1-2 days. She is aware she may get a call about the culture in 2 days. She is willing to return to the emergency Department if she has difficulty swallowing liquids or breathing or any other worsening symptoms or concerns. - Lab Data Lab Results 10/19/17 Range/Units 18:20 Group A Strep Rapid Negative (Negative) Disposition Clinical Impression: Pharyngitis Disposition: HOME SELF-CARE Condition: Good Instructions: Pharyngitis (ED) Additional Instructions: Please take Motrin and Tylenol for pain. Please monitor for any worsening symptoms. If you have difficulty breathing, swallowing liquids, or other concerns return to the emergency department. You may be contacted in 2 days with result of throat culture. Otherwise follow-up with primary care in 1-2 days. Is patient prescribed a controlled substance at d/c from ED?: No Referrals: Olvin Keenan MD [Primary Care Provider] - 1-2 days Time of Disposition: 20:29
[2017-10-19 20:38] VITALS: BP 138/90; PULSE 103; TEMP 97.4
== END 2017-10-19 20:38 | disposition home or self-care (01) ==
LOC: EC 17:52
DX: J02.9 Acute pharyngitis, unspecified (principal); R13.10 Dysphagia, unspecified; F31.9 Bipolar disorder, unspecified; F41.9 Anxiety disorder, unspecified; Z79.899 Other long term (current) drug therapy
CPT/HCPCS: 70360; 87081; 87430; 99283

== ENCOUNTER 2017-11-01 18:13 | Emergency (ER) | payer OTHER ==
[2017-11-01 18:45] VITALS: RESP 16
[2017-11-01] MEDS ORDERED: SODIUM CHLORIDE 0.9% 1,000 ML IV STA (19:18)
[2017-11-01] MEDS ORDERED: ONDANSETRON 4 MG/2 ML VIAL IVP STA ×2 (19:18→20:42)
[2017-11-01] MEDS ORDERED: PANTOPRAZOLE 40 MG/10 ML VIAL IVP STA (19:18)
--- NOTE | 2017-11-01 19:21 | ED ---
Abdominal Pain HPI - General Chief Complaint: Abdominal Pain Stated Complaint: VOMITING BLOOD, ABDOMINAL PAIN Time Seen by Provider: 11/01/17 19:12 Source: patient, RN notes reviewed Mode of arrival: ambulatory Limitations: no limitations - History of Present Illness Initial Comments: This is a 27-year-old female who presents to the emergency department with chief complaint of abdominal pain and vomiting. Patient states that she has vomited bright red blood 3 times in the past hour and half. She states that she is also experiencing left upper quadrant abdominal pain. She reports that she does see Dr. Vyas, core setter and has had multiple scopes. She states that they are unable to figure out what is going on with her and that she has experienced these symptoms multiple times in the past. She denies fevers or chills, diarrhea or constipation, melena or hematochezia, hematuria or dysuria. Patient states that she does take Protonix, Bentyl and Prilosec but did not take her medications today. - Related Data Home Medications Medication Instructions Recorded Confirmed ARIPiprazole [Abilify] 15 mg PO HS 06/21/17 11/01/17 Gabapentin [Neurontin] 300 mg PO TID 06/21/17 11/01/17 LORazepam [Ativan] 1 mg PO TID PRN 06/21/17 11/01/17 DULoxetine HCL [Cymbalta] 30 mg PO DAILY 10/19/17 11/01/17 Previous Rx's Medication Instructions Recorded Dicyclomine [Bentyl] 20 mg PO QID #20 tablet 07/04/17 Ondansetron Odt [Zofran ODT] 4 mg PO Q8HR PRN #6 tab 07/06/17 Omeprazole [PriLOSEC] 20 mg PO AC-BRKFST #30 cap 07/19/17 Allergies Allergy/AdvReac Type Severity Reaction Status Date / Time No Known Allergies Allergy Verified 11/01/17 18:44 Review of Systems ROS Statement: Those systems with pertinent positive or pertinent negative responses have been documented in the HPI. ROS Other: All systems not noted in ROS Statement are negative. Past Medical History Past Medical History: GERD/Reflux, GI Bleed Additional Past Medical History / Comment(s): gallstones, kidney stones, D&C History of Any Multi-Drug Resistant Organisms: None Reported Past Surgical History: Section, Cholecystectomy, Tubal Ligation Additional Past Surgical History / Comment(s): neck biopsy (lymph node ) 4x Past Anesthesia/Blood Transfusion Reactions: No Reported Reaction Past Psychological History: Anxiety, Bipolar, Depression, PTSD Smoking Status: Never smoker Past Alcohol Use History: None Reported Past Drug Use History: None Reported - Past Family History Mother Family Medical History: Diabetes Mellitus, Hyperlipidemia, Hypertension, Myocardial Infarction ([place]) General Exam - General Exam Comments Initial Comments: General: Awake and alert, well-developed; in no apparent distress. HEENT: Head atraumatic, normocephalic. Pupils are equal, round and reactive to light. Extraocular movements intact. Oropharynx moist without erythema or exudate. Neck: Supple. Normal ROM. Cardiovascular: Regular rate and rhythm. No murmurs, rubs or gallops. Chest symmetrical. Respiratory: Lungs clear to auscultation bilaterally. No wheezes, rales or rhonchi. Normal respiratory effort with no use of accessory muscles. Abdomen: Soft, non-distended. Mild tenderness on palpation of left upper quadrant. No rigidity, rebound or guarding. Normal bowel sounds in all 4 quadrants. Musculoskeletal: Normal ROM, no tenderness bilateral upper and lower extremities. Ambulating normally. Skin: [place], warm and dry without rashes or lesions. Neurological: Alert and oriented x3. CN II-XII grossly intact. Speech is fluent and answers are appropriate. No focal neuro deficits. Psychiatric: Normal mood and affect. No overt signs of depression or anxiety noted. Limitations: no limitations Course Vital Signs 11/01/17 18:42 Temperature 98.6 F Pulse Rate 112 H Respiratory 16 Rate Blood Pressure 128/86 O2 Sat by Pulse 100 Oximetry Medical Decision Making - Medical Decision Making This is a 27-year-old female who presents to the emergency department with chief complaint of hematemesis and abdominal pain. Patient states that she has a history of these episodes. She states that she is seen by Dr. Vyas and has had multiple studies performed. Patient states that an hour and half prior to arrival she developed an episode of vomiting blood. While in the emergency department, patient received fluids, Protonix and antiemetics. She has not had a single episode of vomiting while in the emergency department. CBC, CMP and UA are unremarkable and within normal limits. Vital signs are stable and patient is in no acute distress. She will be discharged home at this time. Recommended following up with her core setter. She is in agreement with plan and voices understanding. All questions answered. - Lab Data Result diagrams: 11/01/17 19:21 11/01/17 19:21 Lab Results 11/01/17 11/01/17 11/01/17 Range/Units 19:21 19:21 19:34 WBC 10.3 (3.8-10.6) k/uL RBC 5.19 (3.80-5.40) m/uL Hgb 13.4 (11.4-16.0) gm/dL Hct 41.0 (34.0-46.0) % MCV 79.0 L (80.0-100.0) fL MCH 25.8 (25.0-35.0) pg MCHC 32.6 (31.0-37.0) g/dL RDW 15.3 (11.5-15.5) % Plt Count 316 (150-450) k/uL Neutrophils % 56 % Lymphocytes % 34 % Monocytes % 4 % Eosinophils % 4 % Basophils % 1 % Neutrophils # 5.8 (1.3-7.7) k/uL Lymphocytes # 3.5 (1.0-4.8) k/uL Monocytes # 0.4 (0-1.0) k/uL Eosinophils # 0.4 (0-0.7) k/uL Basophils # 0.1 (0-0.2) k/uL Sodium 142 (137-145) mmol/L Potassium 4.1 (3.5-5.1) mmol/L Chloride 104 (98-107) mmol/L Carbon Dioxide 28 (22-30) mmol/L Anion Gap 10 mmol/L BUN 14 (7-17) mg/dL Creatinine 0.70 (0.52-1.04) mg/dL Est GFR (CKD-EPI)AfAm >90 (>60 ml/min/1.73 sqM) Est GFR (CKD-EPI)NonAf >90 (>60 ml/min/1.73 sqM) Glucose 90 (74-99) mg/dL Calcium 9.4 (8.4-10.2) mg/dL Total Bilirubin 0.4 (0.2-1.3) mg/dL AST 30 (14-36) U/L ALT 53 H (9-52) U/L Alkaline Phosphatase 123 (38-126) U/L Total Protein 7.0 (6.3-8.2) g/dL Albumin 4.1 (3.5-5.0) g/dL Amylase 47 (30-110) U/L Lipase 58 (23-300) U/L HCG, Quant <2.4 mIU/mL Urine Color Yellow Urine Appearance Clear (Clear) Urine pH 5.5 (5.0-8.0) Ur Specific [place] 1.026 (1.001-1.035) Urine Protein Trace H (Negative) Urine Glucose (UA) Negative (Negative) Urine Ketones Negative (Negative) Urine Blood Negative (Negative) Urine Nitrite Negative (Negative) Urine Bilirubin Negative (Negative) Urine Urobilinogen 2.0 (<2.0) mg/dL Ur Leukocyte Esterase Negative (Negative) Disposition Clinical Impression: Abdominal pain Disposition: HOME SELF-CARE Condition: Good Instructions: Abdominal Pain (ED) Additional Instructions: Please follow up with primary care provider within 1-2 days. Return to emergency department if symptoms should worsen or any concerns arise. Is patient prescribed a controlled substance at d/c from ED?: No Referrals: Olvin Keenan MD [Primary Care Provider] - 1-2 days Time of Disposition: 20:42
[2017-11-01 19:30] LABS: Basophils # (A) 0.1 k/uL (0-0.2); Basophils % (A) 1 %; Eosinophils # (A) 0.4 k/uL (0-0.7); Eosinophils % (A) 4 %; HGB 13.4 gm/dL (11.4-16.0); Lymphocytes # (A) 3.5 k/uL (1.0-4.8); Lymphocytes % (A) 34 %; MCH 25.8 pg (25.0-35.0); MCHC 32.6 g/dL (31.0-37.0); Monocytes # (A) 0.4 k/uL (0-1.0); Monocytes % (A) 4 %; Neutrophils # (A) 5.8 k/uL (1.3-7.7); Neutrophils % (A) 56 %; Platelet Count 316 k/uL (150-450); RBC 5.19 m/uL (3.80-5.40); RDW 15.3 % (11.5-15.5); WBC 10.3 k/uL (3.8-10.6)
[2017-11-01 19:39] LABS: ALT 53 U/L (9-52); AST 30 U/L (14-36); Albumin 4.1 g/dL (3.5-5.0); Alkaline Phosphatase 123 U/L (38-126); Amylase 47 U/L (30-110); Anion Gap 10 mmol/L; Blood Urea Nitrogen 14 mg/dL (7-17); Calcium 9.4 mg/dL (8.4-10.2); Carbon Dioxide 28 mmol/L (22-30); Chloride 104 mmol/L (98-107); Glucose 90 mg/dL (74-99); Lipase 58 U/L (23-300); Potassium 4.1 mmol/L (3.5-5.1); Sodium 142 mmol/L (137-145); Total Bilirubin 0.4 mg/dL (0.2-1.3)
[2017-11-01 19:49] LABS: Appearance,Urine Clear (Clear); Bilirubin,Urine Negative (Negative); Blood,Urine Negative (Negative); Color,Urine Yellow; Glucose,Urine (UA) Negative (Negative); Ketones,Urine Negative (Negative); Leukocyte Esterase,Urine Negative (Negative); Nitrite,Urine Negative (Negative); PH, Urine 5.5 (5.0-8.0); Protein,Urine Trace (Negative); Specific Gravity,Urine 1.026 (1.001-1.035)
[2017-11-01 20:15] LABS: HCG,Quantitative Serum <2.4 mIU/mL
[2017-11-01 20:39] VITALS: BP 124/62; PULSE 100; TEMP 98.7
== END 2017-11-01 21:10 | disposition home or self-care (01) ==
LOC: EC 18:13
DX: R10.12 Left upper quadrant pain (principal); K92.0 Hematemesis; F31.9 Bipolar disorder, unspecified; F43.10 Post-traumatic stress disorder, unspecified; Z79.899 Other long term (current) drug therapy; Z90.49 Acquired absence of other specified parts of digestive tract
CPT/HCPCS: 36415; 80053; 82150; 83690; 85025; 81003; 84702; 99284; 96374; 96375; 96376; 96361; J2405; C9113

== ENCOUNTER 2018-01-20 20:41 | Observation (INO) | payer OTHER ==
[2018-01-20] MEDS ORDERED: PANTOPRAZOLE 40 MG/10 ML VIAL IVP STA (21:08)
[2018-01-20] MEDS ORDERED: ONDANSETRON 4 MG/2 ML VIAL IVP STA (21:08)
[2018-01-20] MEDS ORDERED: SODIUM CHLORIDE 0.9% 500 ML IV STA (21:10)
--- NOTE | 2018-01-20 21:10 | ED ---
GI Bleed HPI - General Chief complaint: GI Bleed Stated complaint: vomiting blood/abdominal pain Time Seen by Provider: 01/20/18 20:58 Source: patient, RN notes reviewed Mode of arrival: ambulatory Limitations: no limitations - History of Present Illness Initial comments: This is a 27-year-old female history of upper GI bleed in the past who states she had the onset earlier today of 2 episodes of vomiting bright red blood. She complains some epigastric pain chills no sweats no blood per rectum. No other symptoms. She states she was worked up for this several months ago and they could not find a source. MD complaint: gross hematemesis - Related Data Home Medications Medication Instructions Recorded Confirmed ARIPiprazole [Abilify] 15 mg PO HS 06/21/17 01/20/18 Gabapentin [Neurontin] 300 mg PO TID 06/21/17 01/20/18 LORazepam [Ativan] 1 mg PO TID PRN 06/21/17 01/20/18 DULoxetine HCL [Cymbalta] 90 mg PO HS 10/19/17 01/20/18 Amitriptyline HCl [Elavil] 10 mg PO HS 01/20/18 01/20/18 Pantoprazole [Protonix] 40 mg PO BID 01/20/18 01/20/18 Pravastatin Sodium [Pravachol] 20 mg PO HS 01/20/18 01/20/18 Allergies Allergy/AdvReac Type Severity Reaction Status Date / Time No Known Allergies Allergy Verified 01/20/18 21:01 Review of Systems ROS Statement: Those systems with pertinent positive or pertinent negative responses have been documented in the HPI. ROS Other: All systems not noted in ROS Statement are negative. Past Medical History Past Medical History: GERD/Reflux, GI Bleed Additional Past Medical History / Comment(s): gallstones, kidney stones, D&C History of Any Multi-Drug Resistant Organisms: None Reported Past Surgical History: Section, Cholecystectomy, Tubal Ligation Additional Past Surgical History / Comment(s): neck biopsy (lymph node ) 4x Past Anesthesia/Blood Transfusion Reactions: No Reported Reaction Past Psychological History: Anxiety, Bipolar, Depression, PTSD Smoking Status: Never smoker Past Alcohol Use History: None Reported Past Drug Use History: None Reported - Past Family History Mother Family Medical History: Diabetes Mellitus, Hyperlipidemia, Hypertension, Myocardial Infarction ([place]) General Exam - General Exam Comments Initial Comments: This a well-developed well-nourished awake alert oriented 3 female Limitations: no limitations General appearance: alert, anxious Head exam: Present: atraumatic, normocephalic, normal inspection Eye exam: Present: normal appearance, PERRL, EOMI. Absent: scleral icterus, conjunctival injection, periorbital swelling ENT exam: Present: normal exam, mucous membranes moist Neck exam: Present: normal inspection. Absent: tenderness, meningismus, lymphadenopathy Respiratory exam: Present: normal lung sounds bilaterally. Absent: respiratory distress, wheezes, rales, rhonchi, stridor Cardiovascular Exam: Present: normal rhythm, tachycardia, normal heart sounds. Absent: systolic murmur, diastolic murmur, rubs, gallop, clicks GI/Abdominal exam: Present: soft, tenderness, normal bowel sounds. Absent: distended, guarding, rebound, rigid Extremities exam: Present: normal inspection, full ROM, normal capillary refill. Absent: tenderness, pedal edema, joint swelling, calf tenderness Back exam: Present: normal inspection Neurological exam: Present: alert, oriented X3, CN II-XII intact Psychiatric exam: Present: normal affect, normal mood Skin exam: Present: warm, dry, intact, normal color. Absent: rash Course Vital Signs 01/20/18 01/20/18 01/20/18 20:55 21:10 22:10 Temperature 98.5 F Pulse Rate 128 H 128 H Pulse Rate [ 128 H [employer] ] Respiratory 19 18 Rate Blood Pressure 168/79 124/69 O2 Sat by Pulse 98 96 Oximetry - Reevaluation(s) Reevaluation #1: 01/20/18 22:04 Patient was endorsed me at our shift change pending improvement in her heart rate accept this for transfer. First repeat EKG showed a sinus tachycardia 134 MN interval 120 QRS 84 QT since QTC 374/[address]-T wave configuration and evidence of a prolonged QT. Reevaluation #2: 01/20/18 22:05 Subsequent repeat EKG sinus tachycardia rate of 120. Interval 144 QRS duration 92 QT since QTC 342/483 no acute changes Medical Decision Making - Medical Decision Making I did discuss findings with the patient she'll be admitted with evaluation by GI. - Lab Data Result diagrams: 01/20/18 21:14 01/20/18 21:14 Lab Results 01/20/18 01/20/18 01/20/18 Range/Units 21:14 21:14 21:14 WBC 9.0 (3.8-10.6) k/uL RBC 4.86 (3.80-5.40) m/uL Hgb 13.1 (11.4-16.0) gm/dL Hct 39.6 (34.0-46.0) % MCV 81.5 (80.0-100.0) fL MCH 26.9 (25.0-35.0) pg MCHC 33.0 (31.0-37.0) g/dL RDW 13.7 (11.5-15.5) % Plt Count 307 (150-450) k/uL Neutrophils % 53 % Lymphocytes % 36 % Monocytes % 6 % Eosinophils % 4 % Basophils % 1 % Neutrophils # 4.8 (1.3-7.7) k/uL Lymphocytes # 3.2 (1.0-4.8) k/uL Monocytes # 0.5 (0-1.0) k/uL Eosinophils # 0.3 (0-0.7) k/uL Basophils # 0.1 (0-0.2) k/uL PT (9.0-12.0) sec INR (<1.2) APTT (22.0-30.0) sec Sodium 142 (137-145) mmol/L Potassium 4.1 (3.5-5.1) mmol/L Chloride 107 (98-107) mmol/L Carbon Dioxide 28 (22-30) mmol/L Anion Gap 7 mmol/L BUN 14 (7-17) mg/dL Creatinine 0.76 (0.52-1.04) mg/dL Est GFR (CKD-EPI)AfAm >90 (>60 ml/min/1.73 sqM) Est GFR (CKD-EPI)NonAf >90 (>60 ml/min/1.73 sqM) Glucose 109 H (74-99) mg/dL Calcium 9.2 (8.4-10.2) mg/dL Magnesium 2.0 (1.6-2.3) mg/dL Total Bilirubin 0.5 (0.2-1.3) mg/dL AST 23 (14-36) U/L ALT 40 (9-52) U/L Alkaline Phosphatase 129 H (38-126) U/L Total Creatine Kinase 46 (30-135) U/L CK-MB (CK-2) 0.2 (0.0-2.4) ng/mL CK-MB (CK-2) Rel Index 0.4 Troponin I <0.012 (0.000-0.034) ng/mL Total Protein 6.6 (6.3-8.2) g/dL Albumin 3.8 (3.5-5.0) g/dL Stool Occult Blood (Negative) Blood Type Blood Type Recheck Antibody Screen Spec Expiration Date 01/20/18 01/20/18 01/20/18 Range/Units 21:14 21:14 22:13 WBC (3.8-10.6) k/uL RBC (3.80-5.40) m/uL Hgb (11.4-16.0) gm/dL Hct (34.0-46.0) % MCV (80.0-100.0) fL MCH (25.0-35.0) pg MCHC (31.0-37.0) g/dL RDW (11.5-15.5) % Plt Count (150-450) k/uL Neutrophils % % Lymphocytes % % Monocytes % % Eosinophils % % Basophils % % Neutrophils # (1.3-7.7) k/uL Lymphocytes # (1.0-4.8) k/uL Monocytes # (0-1.0) k/uL Eosinophils # (0-0.7) k/uL Basophils # (0-0.2) k/uL PT 9.6 (9.0-12.0) sec INR 1.0 (<1.2) APTT 22.8 (22.0-30.0) sec Sodium (137-145) mmol/L Potassium (3.5-5.1) mmol/L Chloride (98-107) mmol/L Carbon Dioxide (22-30) mmol/L Anion Gap mmol/L BUN (7-17) mg/dL Creatinine (0.52-1.04) mg/dL Est GFR (CKD-EPI)AfAm (>60 ml/min/1.73 sqM) Est GFR (CKD-EPI)NonAf (>60 ml/min/1.73 sqM) Glucose (74-99) mg/dL Calcium (8.4-10.2) mg/dL Magnesium (1.6-2.3) mg/dL Total Bilirubin (0.2-1.3) mg/dL AST (14-36) U/L ALT (9-52) U/L Alkaline Phosphatase (38-126) U/L Total Creatine Kinase (30-135) U/L CK-MB (CK-2) (0.0-2.4) ng/mL CK-MB (CK-2) Rel Index Troponin I (0.000-0.034) ng/mL Total Protein (6.3-8.2) g/dL Albumin (3.5-5.0) g/dL Stool Occult Blood Negative (Negative) Blood Type B Positive Blood Type Recheck No Antibody Screen NEGATIVE Spec Expiration Date 01/23/2018 6782 - EKG Data -: EKG Interpreted by Me EKG shows normal: sinus rhythm Rate: tachycardia (Sinus tachycardia 118. Interval 132 QRS 74 QT since QTC 320/ 448 nonspecific septal configuration) - Radiology Data Radiology results: report reviewed (I did review the imaging and report no acute findings), image reviewed Disposition Clinical Impression: Hematemesis with nausea, Abdominal pain Disposition: ADMITTED IP TO THIS [facility] Condition: Stable Referrals: Olvin Keenan MD [Primary Care Provider] - 1-2 days
[2018-01-20 21:39] LABS: Basophils # (A) 0.1 k/uL (0-0.2); Basophils % (A) 1 %; Eosinophils # (A) 0.3 k/uL (0-0.7); Eosinophils % (A) 4 %; HCT 39.6 % (34.0-46.0); HGB 13.1 gm/dL (11.4-16.0); Lymphocytes # (A) 3.2 k/uL (1.0-4.8); Lymphocytes % (A) 36 %; MCH 26.9 pg (25.0-35.0); MCV 81.5 fL (80.0-100.0); Mean Platelet Volume 6.5; Monocytes # (A) 0.5 k/uL (0-1.0); Monocytes % (A) 6 %; Neutrophils # (A) 4.8 k/uL (1.3-7.7); Neutrophils % (A) 53 %; Platelet Count 307 k/uL (150-450); RBC 4.86 m/uL (3.80-5.40); RDW 13.7 % (11.5-15.5)
[2018-01-20 21:52] LABS: Partial Thromboplastin Time 22.8 sec (22.0-30.0); Prothrombin Time 9.6 sec (9.0-12.0)
[2018-01-20 21:58] LABS: ALT 40 U/L (9-52); AST 23 U/L (14-36); Albumin 3.8 g/dL (3.5-5.0); Alkaline Phosphatase 129 U/L (38-126); Anion Gap 7 mmol/L; Blood Urea Nitrogen 14 mg/dL (7-17); Calcium 9.2 mg/dL (8.4-10.2); Carbon Dioxide 28 mmol/L (22-30); Chloride 107 mmol/L (98-107); Glucose 109 mg/dL (74-99); Potassium 4.1 mmol/L (3.5-5.1); Sodium 142 mmol/L (137-145); Total Bilirubin 0.5 mg/dL (0.2-1.3); Total Protein 6.6 g/dL (6.3-8.2)
--- NOTE | 2018-01-20 21:58 | XR ---
EXAMINATION TYPE: XR abdomen - 3V DATE OF EXAM: 01/20/2018 COMPARISON: 07/17/2017 HISTORY: Pain and GI bleed TECHNIQUE: Upright and 2 supine views FINDINGS: The visualized lung bases and pleural spaces are negative. There is no pneumoperitoneum or pneumatosis. The bowel gas pattern is within normal limits. No definite acute skeletal or soft tissue findings. IMPRESSION: No acute radiographic process.
[2018-01-20 22:03] LABS: Creatine Kinase 46 U/L (30-135)
[2018-01-20] MEDS: SODIUM CHLORIDE 0.9% 1,000 ML IV STA (22:09)
[2018-01-20 22:16] LABS: Creatine Kinase MB 0.2 ng/mL (0.0-2.4); Troponin I <0.012 ng/mL (0.000-0.034)
[2018-01-20] MEDS ORDERED: NALOXONE 0.4 MG/ML 1 ML VIAL IV PRN (23:11)
[2018-01-20] MEDS: HYDROmorphone 1 MG/ML 1 ML SYRINGE IVP PRN (23:26)
[2018-01-20] MEDS ORDERED: ARIPiprazole 15 MG TAB PO SCH (23:45)
[2018-01-21] MEDS ORDERED: ARIPiprazole 5 MG TAB PO SCH (00:05)
[2018-01-21 00:28] VITALS: BMI 49.4
[2018-01-21] MEDS: DULoxetine HCL 30 MG CAPSULE.DR PO SCH ×2 (01:07→20:08)
[2018-01-21] MEDS: AMITRIPTYLINE HCL 10 MG TAB PO SCH ×2 (01:07→20:08)
[2018-01-21] MEDS: SODIUM CHLORIDE 0.9% 1,000 ML IV STA (01:08)
[2018-01-21] MEDS ORDERED: ARIPiprazole 5 MG TAB PO STA (01:10)
[2018-01-21] MEDS: SODIUM CHLORIDE 0.9% 1,000 ML IV SCH ×5 (03:20→23:52)
[2018-01-21] MEDS: HYDROmorphone 1 MG/ML 1 ML SYRINGE IVP PRN ×3 (03:26→12:09)
[2018-01-21 03:35] LABS: HCT 37.1 % (34.0-46.0); HGB 11.8 gm/dL (11.4-16.0); MCH 26.6 pg (25.0-35.0); MCHC 31.9 g/dL (31.0-37.0); MCV 83.4 fL (80.0-100.0); Mean Platelet Volume 6.6; Platelet Count 276 k/uL (150-450); RBC 4.45 m/uL (3.80-5.40); RDW 13.9 % (11.5-15.5); WBC 7.9 k/uL (3.8-10.6)
[2018-01-21 04:07] LABS: Creatine Kinase 41 U/L (30-135)
[2018-01-21 04:19] LABS: Creatine Kinase MB <0.2 ng/mL (0.0-2.4); Troponin I <0.012 ng/mL (0.000-0.034)
[2018-01-21] MEDS: ONDANSETRON 4 MG/2 ML VIAL IVP PRN ×3 (06:05→23:52)
[2018-01-21 07:48] LABS: HCT 35.4 % (34.0-46.0); HGB 11.4 gm/dL (11.4-16.0); Hypochromasia Slight; MCH 27.3 pg (25.0-35.0); MCHC 32.2 g/dL (31.0-37.0); MCV 84.8 fL (80.0-100.0); Mean Platelet Volume 6.2; Platelet Count 252 k/uL (150-450); RBC 4.18 m/uL (3.80-5.40); RDW 13.6 % (11.5-15.5)
[2018-01-21] MEDS ORDERED: PANTOPRAZOLE 40 MG/10 ML VIAL IV SCH (09:00)
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
[2018-01-21] MEDS ORDERED: LORazepam 1 MG TAB PO PRN (12:52)
--- NOTE | 2018-01-21 14:03 | HP ---
HISTORY AND PHYSICAL DATE OF ADMISSION: 01/20/2018. DATE OF SERVICE: 01/21/2018 PRESENTING COMPLAINT: Vomiting blood. HISTORY OF PRESENTING COMPLAINT: This is a pleasant 27-year-old patient who follows with Dr. Keenan. Chronic stable medical conditions include bipolar disorder, PTSD and obesity. Patient presented with 2 episodes of vomiting and the toilet filled up with blood. She could not state the exact amount. Patient also had upper abdominal pain. Patient did feel a bit dizzy, lightheaded, decided to come in. There was no stool in the blood. The patient had a similar episode in June of this year and also back in January 2017. She did have a EGD by Dr. Coleen Vyas, was found to have esophagitis and mild gastritis. Patient denies taking any NSAIDs. Denies any alcohol, drugs, or [id number]-slteoql medications. Less of abdominal pain. GI was consulted. Lying in bed. Patient is put on clear liquid diet. REVIEW OF SYSTEMS: CONSTITUTIONAL: Tired. HEENT: None. RESPIRATORY: None. CARDIOVASCULAR: None. GASTROINTESTINAL: As above. GENITOURINARY: None. MUSCULOSKELETAL: None. DERMATOLOGICAL: None. HEMATOLOGICAL: None. LYMPHATICS:: None. PSYCHIATRY: Anxious. NEUROLOGICAL: None. PAST MEDICAL HISTORY: GERD, esophagitis, kidney stones, bipolar, PTSD. PAST SURGICAL HISTORY: , cholecystectomy, tubal ligation. SOCIAL HISTORY: No smoking, no recreational drugs. Lives with her mother and 4 children. Not employed. No alcohol. FAMILY HISTORY: Of diabetes, hyperlipidemia, hypertension, myocardial infarction. HOME MEDICATIONS: 1. Pravachol 20 mg q.h.s. 2. Protonix 40 mg b.i.d. 3. Ativan 1 mg p.o. daily, p.r.n. 4. Neurontin 300 mg p.o. t.i.d. 5. Elavil 10 mg q.h.s. 6. Cymbalta 90 mg q.h.s. 7. Abilify 50 mg q.h.s. ALLERGIES: None. PHYSICAL EXAMINATION: Temperature 98.5, pulse 128, respiration 19, blood pressure 124/69, pulse 96% on room air. GENERAL APPEARANCE: Well built, BMI 49.4, lying in bed, tired appearing. EYES: Pupils equal, conjunctivae are normal. HEENT: External appearance of nose and ears normal, oral cavity normal. NECK: JVD not raised. Mass not palpable. RESPIRATORY: Effort normal. Lungs are clear. CARDIOVASCULAR: First and second sounds normal. No edema. ABDOMEN: Soft, nontender. Liver and spleen not palpable. LYMPHATICS: No lymph node palpable in neck or axillae. PSYCHIATRY: Alert and oriented x3. Mood and affect normal. NEUROLOGICAL: Pupils equal. Cranial nerves grossly intact. Power and sensation grossly intact. INVESTIGATIONS: White count 9, hemoglobin 13.1, repeat 11.4, potassium 4.1. Creatinine is normal, troponin x2 negative. Stool for occult blood negative. ASSESSMENT: 1. Acute upper gastrointestinal bleeding from bright red blood in a patient who has had a prior EGD showing esophagitis. No obvious offensive medications she takes. 2. Morbid obesity, body mass index of 49.4. 3. History of chronic esophagitis. 4. Gastroesophageal reflux disease. 5. Bipolar disorder. PLAN: Patient is put back on proton pump inhibitor. Home medications are resumed. GI was consulted. Given IV fluids, put on ice chips. Will see what GI decides. Will check a CBC in the morning. Care was discussed with the patient. MMODL / IJN: [id number] /
[2018-01-21] MEDS: GABAPENTIN 300 MG CAP PO SCH ×3 (14:33→20:09)
[2018-01-21] MEDS: PANTOPRAZOLE 40 MG TABLET PO SCH (17:34)
[2018-01-21] MEDS: ACETAMINOPHEN TAB 325 MG TAB PO PRN (17:38)
[2018-01-21] MEDS ORDERED: PRAVASTATIN SODIUM 20 MG TAB PO SCH (21:00)
[2018-01-22] MEDS: GABAPENTIN 300 MG CAP PO SCH (07:10)
[2018-01-22] MEDS: ONDANSETRON 4 MG/2 ML VIAL IVP PRN ×2 (07:11→13:19)
[2018-01-22] MEDS: PANTOPRAZOLE 40 MG TABLET PO SCH (07:11)
[2018-01-22] MEDS: ACETAMINOPHEN TAB 325 MG TAB PO PRN ×2 (07:11→13:21)
[2018-01-22 07:14] LABS: Basophils % (A) 1 %; Eosinophils # (A) 0.2 k/uL (0-0.7); Eosinophils % (A) 4 %; HCT 35.6 % (34.0-46.0); HGB 11.2 gm/dL (11.4-16.0); Hypochromasia Slight; Lymphocytes # (A) 2.3 k/uL (1.0-4.8); Lymphocytes % (A) 35 %; MCH 26.7 pg (25.0-35.0); MCHC 31.4 g/dL (31.0-37.0); MCV 85.1 fL (80.0-100.0); Mean Platelet Volume 6.3; Monocytes # (A) 0.3 k/uL (0-1.0); Monocytes % (A) 4 %; Neutrophils # (A) 3.5 k/uL (1.3-7.7); Neutrophils % (A) 55 %; Platelet Count 240 k/uL (150-450); RBC 4.19 m/uL (3.80-5.40); RDW 13.4 % (11.5-15.5); WBC 6.4 k/uL (3.8-10.6)
--- NOTE | 2018-01-22 11:21 | P.PN ---
Subjective Progress Note Date: 01/22/18 Principal diagnosis: Hematemesis Epigastric pain improved. No further bleeding. No further emesis. Tolerate clear liquids requesting advancement. Hemoglobin 11.2. Objective - Vital Signs Vital signs: Vital Signs Temp 98.4 F 01/22/18 07:00 Pulse 83 01/22/18 07:00 Resp 12 01/22/18 07:00 BP 109/71 01/22/18 07:00 Pulse Ox 95 01/22/18 07:00 Intake & Output 01/21/18 01/22/18 01/22/18 18:59 06:59 18:59 Intake Total 1250 1600 Balance 1250 1600 Intake: Intake, IV Titration 1600 Amount Sodium Chloride 0.9% 1, 1000 000 ml @ 125 mls/hr IV . Q8H [facility] Rx#:[id number] Sodium Chloride 0.9% 1, 600 000 ml @ 75 mls/hr IV . [id number] [facility] Rx#:[id number] Oral 1250 Other: # Voids 3 - Exam General appearance: The patient is alert, oriented, in no acute distress. HET: Head is normocephalic and atraumatic. Pupils are equal and reactive. Oropharynx is clear without lesions. Neck: Supple without lymphadenopathy. Trachea midline. Heart: S1 S2. Regular rate and rhythm. Lungs: No crackles or wheezes are heard. Abdomen: Soft, mild midepigastric tenderness, nondistended with bowel sounds. No peritoneal signs. No palpable organomegaly or masses. Extremities: Normal skin color and turgor. No cyanosis, rash, ulceration, clubbing, or edema. Radial and pedal pulses are 2/4 bilaterally. Neurological: No focal deficits. Strength and sensation are grossly intact. - Labs CBC & Chem 7: 01/22/18 06:29 01/20/18 21:14 Labs: Abnormal Lab Results - Last 24 Hours (Table) 01/22/18 Range/Units 06:29 Hgb 11.2 L (11.4-16.0) gm/dL Assessment and Plan (1) Hematemesis with nausea Narrative/Plan: 27-year-old female with a past history of GERD presents with acute onset of epigastric pain nausea pink red tinged emesis with no history of alcohol NSAID or aspirin usage maintained on Protonix twice daily. EGD 1 year ago reported gastritis LA grade A reflux esophagitis. Suspect Martine-Guevara tear possible gastritis possible esophagitis underlying peptic ulcer disease remains within the differential but felt to be less likely at this time. Current Visit: Yes Status: Acute Code(s): K92.0 - HEMATEMESIS SNOMED Code( s): 6253914 (2) GERD (gastroesophageal reflux disease) Current Visit: Yes Status: Acute Code(s): K21.9 - GASTRO-ESOPHAGEAL REFLUX DISEASE WITHOUT ESOPHAGITIS SNOMED Code(s): 914863372 Plan: 1. Protonix 40 mg twice daily. Advance diet as tolerated. Inpatient endoscopic exams not planned. Discharge per medicine. Assessment and plan of care discussed with Dr. Melissa
[2018-01-22 15:05] VITALS: BP 127/81; PULSE 98; RESP 18; TEMP 98.8
--- NOTE | 2018-01-25 22:26 | DS ---
DISCHARGE SUMMARY DATE OF ADMISSION: 01/20/2018. DATE OF DISCHARGE: 01/22/2018. FINAL DIAGNOSES: 1. Acute upper gastrointestinal bleeding, probably from esophagitis. 2. Morbid obesity, body mass index 49.4. 3. History of chronic esophagitis. 4. Gastroesophageal reflux disease. 5. Bipolar disorder. HOSPITAL COURSE: This patient presented with vomiting up some bright red blood. The patient, in January 2017, did have an EGD by Dr. Hannah Vyas. She was found to have gastritis and esophagitis. This admission seen by Dr. Melissa. He decided to manage the patient conservatively. No further episodes. The patient's hemoglobin was stable at 11.2 by the time of discharge. The patient was tolerating a soft diet. PHYSICAL EXAMINATION: Vital signs, temperature 98.8, pulse 98, respiratory rate 18, blood pressure 127/81. Abdomen soft, minimal tenderness. CONSULTATION: Dr. Melissa from GI. DISCHARGE MEDICATIONS: 1. Abilify 50 mg at bedtime. 2. Neurontin 300 mg p.o. t.i.d. 3. Ativan 1 mg p.o. t.i.d. p.r.n. 4. Cymbalta 90 mg at bedtime. 5. Elavil 10 mg p.o. at bedtime. 6. Protonix 40 mg b.i.d. 7. Pravachol 20 mg at bedtime. 8. Tylenol 650 mg every 6 hours p.r.n. 9. Zofran 4 mg every 8 hours p.r.n. DIET: Soft bland. FOLLOWUP: 1. Follow up with Janneth Do on 02/25/2018. 2. Follow up with Dr. Keenan in 1 week. MMODL / IJN: [id number] /
== END 2018-01-22 16:30 | disposition home or self-care (01) ==
LOC: EC 20:41 → 3SUR 23:11
PROVIDERS: ADMIT Hospitalist; ATTEND Hospitalist
DX: K92.2 Gastrointestinal hemorrhage, unspecified (principal); E66.01 Morbid (severe) obesity due to excess calories; Z68.42 Body mass index [BMI] 45.0-49.9, adult; K21.0 Gastro-esophageal reflux disease with esophagitis; F31.9 Bipolar disorder, unspecified; K92.0 Hematemesis; F43.10 Post-traumatic stress disorder, unspecified; F41.9 Anxiety disorder, unspecified; Z79.899 Other long term (current) drug therapy; Z87.442 Personal history of urinary calculi; Z90.49 Acquired absence of other specified parts of digestive tract; Z83.3 Family history of diabetes mellitus; Z82.49 Family history of ischemic heart disease and other diseases of the circulatory system
CPT/HCPCS: 99285 ×2; 96374 ×2; 96375 ×3; 96361 ×4; 96376; 36415; 93005; 86900; 86901; 80053; 82550 ×2; 82553 ×2; 83735; 84484 ×2; 85025 ×2; 85027; 85610; 85730; 86850; 82272; 74019; G0378 ×3; J2405 ×3; J1170 ×2; C9113 ×2

== ENCOUNTER 2018-01-25 17:04 | Emergency (ER) | payer OTHER ==
[2018-01-25] MEDS ORDERED: SODIUM CHLORIDE 0.9% 1,000 ML IV SCH (17:30)
--- NOTE | 2018-01-25 17:33 | ED ---
Abdominal Pain HPI - General Chief Complaint: Abdominal Pain Stated Complaint: ABDOMIHNAL PAIN, NAUSEA, VOMITING Time Seen by Provider: 01/25/18 17:21 Source: patient Mode of arrival: ambulatory Limitations: no limitations - History of Present Illness Initial Comments: 27 year female complains of abdominal discomfort and nauseated has been ongoing for 2 years. Patient states that she's had no vomiting. Patient was earlier this week and admitted for GI bleed. Patient also a GI specialist Dr. Sanchez. Patient never had a endoscopy. Patient states she had a colonoscopy 2 years ago which was within normal limits. Patient has not had a bowel movement in 1 week. No diarrhea. No fevers. Patient has had her gallbladder out. Patient has a tubal ligation and On. No new medications. Patient states she is out of her Zofran. No back pain no dysuria MD Complaint: abdominal pain Location: diffuse Migration to: no migration Quality: fullness Consistency: constant Improves With: nothing, medication (zofran) Associated Symptoms: nausea, vomiting - Related Data Home Medications Medication Instructions Recorded Confirmed ARIPiprazole [Abilify] 15 mg PO HS 06/21/17 01/20/18 Gabapentin [Neurontin] 300 mg PO TID 06/21/17 01/20/18 LORazepam [Ativan] 1 mg PO TID PRN 06/21/17 01/20/18 DULoxetine HCL [Cymbalta] 90 mg PO HS 10/19/17 01/20/18 Amitriptyline HCl [Elavil] 10 mg PO HS 01/20/18 01/20/18 Pantoprazole [Protonix] 40 mg PO BID 01/20/18 01/20/18 Pravastatin Sodium [Pravachol] 20 mg PO HS 01/20/18 01/20/18 Previous Rx's Medication Instructions Recorded Acetaminophen Tab [Tylenol] 650 mg PO Q6HR PRN tab 01/22/18 Ondansetron Odt [Zofran Odt] 4 mg PO Q8HR PRN #20 tab 01/25/18 Allergies Allergy/AdvReac Type Severity Reaction Status Date / Time No Known Allergies Allergy Verified 01/25/18 17:10 Review of Systems ROS Statement: Those systems with pertinent positive or pertinent negative responses have been documented in the HPI. ROS Other: All systems not noted in ROS Statement are negative. Constitutional: Denies: fever, chills Respiratory: Denies: cough Gastrointestinal: Reports: abdominal pain, nausea, vomiting, constipation Musculoskeletal: Denies: back pain Skin: Denies: rash Neurological: Denies: headache, weakness Past Medical History Past Medical History: GERD/Reflux, GI Bleed Additional Past Medical History / Comment(s): gallstones, kidney stones, D&C History of Any Multi-Drug Resistant Organisms: None Reported Past Surgical History: Section, Cholecystectomy, Tubal Ligation Additional Past Surgical History / Comment(s): neck biopsy (lymph node ) 4x Past Anesthesia/Blood Transfusion Reactions: No Reported Reaction Past Psychological History: Anxiety, Bipolar, Depression, PTSD Smoking Status: Never smoker Past Alcohol Use History: None Reported Past Drug Use History: None Reported - Past Family History Mother Family Medical History: Diabetes Mellitus, Hyperlipidemia, Hypertension, Myocardial Infarction ([place]) General Exam Limitations: no limitations General appearance: alert, in no apparent distress Eye exam: Present: normal appearance, PERRL, EOMI. Absent: scleral icterus, conjunctival injection, periorbital swelling ENT exam: Present: normal exam, mucous membranes moist Respiratory exam: Present: normal lung sounds bilaterally. Absent: respiratory distress, wheezes, rales, rhonchi, stridor Cardiovascular Exam: Present: regular rate, normal rhythm, normal heart sounds. Absent: systolic murmur, diastolic murmur, rubs, gallop, clicks GI/Abdominal exam: Present: soft, tenderness, normal bowel sounds Back exam: Present: normal inspection Neurological exam: Present: alert, oriented X3, CN II-XII intact Psychiatric exam: Present: normal affect, normal mood Skin exam: Present: warm, dry, intact, normal color. Absent: rash Course Vital Signs 01/25/18 01/25/18 17:06 19:29 Temperature 98 F 98.8 F Pulse Rate 115 H 87 Respiratory 18 16 Rate Blood Pressure 107/69 117/63 O2 Sat by Pulse 100 100 Oximetry Medical Decision Making - Medical Decision Making Reviewed all labs and x-ray. No sign of obstruction. Patient does have hematuria we'll await culture results. Patient should have close follow-up with family doctor and GI specialist patient may need endoscopy in the outpatient setting. pt to take nausea meds as needed. pt feeling more comfortable after morphine given - Lab Data Result diagrams: 01/25/18 17:44 01/25/18 17:44 Lab Results 01/25/18 01/25/18 01/25/18 Range/Units 17:44 17:44 17:55 WBC 8.6 (3.8-10.6) k/uL RBC 5.28 (3.80-5.40) m/uL Hgb 13.8 (11.4-16.0) gm/dL Hct 43.0 (34.0-46.0) % MCV 81.3 (80.0-100.0) fL MCH 26.2 (25.0-35.0) pg MCHC 32.2 (31.0-37.0) g/dL RDW 13.7 (11.5-15.5) % Plt Count 336 (150-450) k/uL Neutrophils % 61 % Lymphocytes % 29 % Monocytes % 5 % Eosinophils % 3 % Basophils % 1 % Neutrophils # 5.2 (1.3-7.7) k/uL Lymphocytes # 2.5 (1.0-4.8) k/uL Monocytes # 0.5 (0-1.0) k/uL Eosinophils # 0.3 (0-0.7) k/uL Basophils # 0.0 (0-0.2) k/uL Sodium 140 (137-145) mmol/L Potassium 4.2 (3.5-5.1) mmol/L Chloride 104 (98-107) mmol/L Carbon Dioxide 27 (22-30) mmol/L Anion Gap 9 mmol/L BUN 14 (7-17) mg/dL Creatinine 0.66 (0.52-1.04) mg/dL Est GFR (CKD-EPI)AfAm >90 (>60 ml/min/1.73 sqM) Est GFR (CKD-EPI)NonAf >90 (>60 ml/min/1.73 sqM) Glucose 87 (74-99) mg/dL Calcium 9.7 (8.4-10.2) mg/dL Total Bilirubin 0.8 (0.2-1.3) mg/dL AST 37 H (14-36) U/L ALT 53 H (9-52) U/L Alkaline Phosphatase 123 (38-126) U/L Total Protein 7.3 (6.3-8.2) g/dL Albumin 4.2 (3.5-5.0) g/dL Urine Color Light Yellow Urine Appearance Cloudy H (Clear) Urine pH 7.5 (5.0-8.0) Ur Specific Cove 1.009 (1.001-1.035) Urine Protein Negative (Negative) Urine Glucose (UA) Negative (Negative) Urine Ketones Negative (Negative) Urine Blood Moderate H (Negative) Urine Nitrite Negative (Negative) Urine Bilirubin Negative (Negative) Urine Urobilinogen <2.0 (<2.0) mg/dL Ur Leukocyte Esterase Negative (Negative) Urine RBC <1 (0-5) /hpf Urine WBC 1 (0-5) /hpf Ur Squamous Epith Cells 1 (0-4) /hpf Amorphous Sediment Rare H (None) /hpf Urine Mucus Rare H (None) /hpf Urine HCG, Qual (Not Detectd) 01/25/18 Range/Units 17:55 WBC (3.8-10.6) k/uL RBC (3.80-5.40) m/uL Hgb (11.4-16.0) gm/dL Hct (34.0-46.0) % MCV (80.0-100.0) fL MCH (25.0-35.0) pg MCHC (31.0-37.0) g/dL RDW (11.5-15.5) % Plt Count (150-450) k/uL Neutrophils % % Lymphocytes % % Monocytes % % Eosinophils % % Basophils % % Neutrophils # (1.3-7.7) k/uL Lymphocytes # (1.0-4.8) k/uL Monocytes # (0-1.0) k/uL Eosinophils # (0-0.7) k/uL Basophils # (0-0.2) k/uL Sodium (137-145) mmol/L Potassium (3.5-5.1) mmol/L Chloride (98-107) mmol/L Carbon Dioxide (22-30) mmol/L Anion Gap mmol/L BUN (7-17) mg/dL Creatinine (0.52-1.04) mg/dL Est GFR (CKD-EPI)AfAm (>60 ml/min/1.73 sqM) Est GFR (CKD-EPI)NonAf (>60 ml/min/1.73 sqM) Glucose (74-99) mg/dL Calcium (8.4-10.2) mg/dL Total Bilirubin (0.2-1.3) mg/dL AST (14-36) U/L ALT (9-52) U/L Alkaline Phosphatase (38-126) U/L Total Protein (6.3-8.2) g/dL Albumin (3.5-5.0) g/dL Urine Color Urine Appearance (Clear) Urine pH (5.0-8.0) Ur Specific Cove (1.001-1.035) Urine Protein (Negative) Urine Glucose (UA) (Negative) Urine Ketones (Negative) Urine Blood (Negative) Urine Nitrite (Negative) Urine Bilirubin (Negative) Urine Urobilinogen (<2.0) mg/dL Ur Leukocyte Esterase (Negative) Urine RBC (0-5) /hpf Urine WBC (0-5) /hpf Ur Squamous Epith Cells (0-4) /hpf Amorphous Sediment (None) /hpf Urine Mucus (None) /hpf Urine HCG, Qual Not Detected (Not Detectd) Disposition Clinical Impression: Abdominal pain, Hematuria, Nausea Disposition: HOME SELF-CARE Condition: Good Instructions: Hematuria (ED), Abdominal Pain (ED) Prescriptions: Ondansetron Odt [Zofran Odt] 4 mg PO Q8HR PRN #20 tab PRN Reason: Nausea Is patient prescribed a controlled substance at d/c from ED?: No Referrals: Olvin Keenan MD [Primary Care Provider] - 1-2 days Celestino Amador MD [STAFF PHYSICIAN] - 1-2 days Time of Disposition: 20:05
[2018-01-25] MEDS ORDERED: SODIUM CHLORIDE 0.9% 1,000 ML IV ONE (17:37)
[2018-01-25] MEDS ORDERED: ONDANSETRON 4 MG/2 ML VIAL IVP STA (17:38)
[2018-01-25 18:20] LABS: Basophils % (A) 1 %; Eosinophils # (A) 0.3 k/uL (0-0.7); Eosinophils % (A) 3 %; HGB 13.8 gm/dL (11.4-16.0); Lymphocytes # (A) 2.5 k/uL (1.0-4.8); Lymphocytes % (A) 29 %; MCH 26.2 pg (25.0-35.0); MCHC 32.2 g/dL (31.0-37.0); MCV 81.3 fL (80.0-100.0); Mean Platelet Volume 6.6; Monocytes # (A) 0.5 k/uL (0-1.0); Monocytes % (A) 5 %; Neutrophils # (A) 5.2 k/uL (1.3-7.7); Neutrophils % (A) 61 %; Platelet Count 336 k/uL (150-450); RBC 5.28 m/uL (3.80-5.40); RDW 13.7 % (11.5-15.5); WBC 8.6 k/uL (3.8-10.6)
[2018-01-25 18:21] LABS: Amorphous Sediment,Urine Rare /hpf; Appearance,Urine Cloudy (Clear); Bilirubin,Urine Negative (Negative); Blood,Urine Moderate (Negative); Color,Urine Light Yellow; Glucose,Urine (UA) Negative (Negative); Ketones,Urine Negative (Negative); Leukocyte Esterase,Urine Negative (Negative); Mucus,Urine Rare /hpf; Nitrite,Urine Negative (Negative); PH, Urine 7.5 (5.0-8.0); Protein,Urine Negative (Negative); RBC,Urine <1 /hpf (0-5); Specific Gravity,Urine 1.009 (1.001-1.035); Squamous Epithelial Cell,Urine 1 /hpf (0-4); Urobilinogen,Urine <2.0 mg/dL (<2.0)
[2018-01-25 18:30] LABS: ALT 53 U/L (9-52); AST 37 U/L (14-36); Albumin 4.2 g/dL (3.5-5.0); Alkaline Phosphatase 123 U/L (38-126); Anion Gap 9 mmol/L; Blood Urea Nitrogen 14 mg/dL (7-17); Calcium 9.7 mg/dL (8.4-10.2); Carbon Dioxide 27 mmol/L (22-30); Chloride 104 mmol/L (98-107); Glucose 87 mg/dL (74-99); Potassium 4.2 mmol/L (3.5-5.1); Sodium 140 mmol/L (137-145); Total Bilirubin 0.8 mg/dL (0.2-1.3); Total Protein 7.3 g/dL (6.3-8.2)
--- NOTE | 2018-01-25 19:24 | XR ---
EXAMINATION TYPE: XR abdomen complete w decub DATE OF EXAM: 01/25/2018 COMPARISON: 01/20/2018 HISTORY: 4 views supine and upright abdomen and decubitus TECHNIQUE: Supine, upright, and left side down lateral decubitus views of the abdomen are obtained. FINDINGS: Bowel gas pattern is normal. There is no sign of intestinal obstruction or pneumoperitoneum. There ar e clips from cholecystectomy. There are clips from tubal ligation. Fecal pattern is normal. There is no sign of a mass. There are no pathologic calcifications over the kidneys. IMPRESSION: Nonacute abdomen. No change.
[2018-01-25 19:33] VITALS: BP 117/63; PULSE 87; RESP 16; TEMP 98.8
[2018-01-25] MEDS ORDERED: MORPHINE SULFATE 4 MG/ML SYRINGE IVP STA (19:40)
== END 2018-01-25 20:13 | disposition home or self-care (01) ==
LOC: EC 17:04
DX: R10.9 Unspecified abdominal pain (principal); R11.2 Nausea with vomiting, unspecified; R31.9 Hematuria, unspecified; K21.9 Gastro-esophageal reflux disease without esophagitis; F41.9 Anxiety disorder, unspecified; F32.9 Major depressive disorder, single episode, unspecified; F43.10 Post-traumatic stress disorder, unspecified; Z87.442 Personal history of urinary calculi; Z90.49 Acquired absence of other specified parts of digestive tract; Z98.51 Tubal ligation status; Z79.899 Other long term (current) drug therapy
CPT/HCPCS: 36415; 80053; 85025; 81001; 81025; 74021; 99284; 96374; 96375; 96361 ×2; J2270; J2405

== ENCOUNTER 2018-02-13 21:45 | Emergency (ER) | payer OTHER ==
[2018-02-13 21:59] VITALS: RESP 18
[2018-02-13 23:20] LABS: Amphetamine Screen,Urine Not Detected (NotDetected); Barbiturate Screen,Urine Not Detected (NotDetected); Benzodiazepines Screen,Urine Detected (NotDetected); Cocaine Screen,Urine Not Detected (NotDetected); Methadone Screen, Urine Not Detected (NotDetected); Opiate Screen,Urine Not Detected (NotDetected); Oxycodone Screen, Urine Not Detected (NotDetected); Phencyclidine Screen,Urine Not Detected (NotDetected); Tricyclic Antidepressant,Urine Detected (NotDetected); Urn Cannabinoid Scrn Not Detected (NotDetected)
[2018-02-13 23:35] LABS: Appearance,Urine Cloudy (Clear); Bacteria,Urine Occasional /hpf; Bilirubin,Urine Negative (Negative); Blood,Urine Moderate (Negative); Calcium Oxalate Crystals,Urine Many /hpf; Color,Urine Yellow; Glucose,Urine (UA) Negative (Negative); Ketones,Urine Negative (Negative); Leukocyte Esterase,Urine Negative (Negative); Mucus,Urine Occasional /hpf; Nitrite,Urine Negative (Negative); PH, Urine 5.5 (5.0-8.0); Protein,Urine Trace (Negative); RBC,Urine 4 /hpf (0-5); Specific Gravity,Urine 1.028 (1.001-1.035); Squamous Epithelial Cell,Urine 1 /hpf (0-4); WBC,Urine 2 /hpf (0-5)
--- NOTE | 2018-02-13 23:59 | ED ---
Psych HPI - General Chief Complaint: Psychiatric Symptoms Stated Complaint: mental health Time Seen by Provider: 02/13/18 22:20 Source: patient, family Mode of arrival: ambulatory - History of Present Illness Initial Comments: Yeimy is a 27 yo female with PMH of depression and anxiety who has recently had her antidepressant medications changed by her psychiatrist at [facility] , patient reports that over the past few days she is feeling more depressed and has been having suicidal thoughts. Patient states she plans to kill herself by overdosing on her psych medications. The patient admits to a history of depression and anxiety but denies any history of suicide attempts in the past.. Patient denies any self injury or ingestions in an attempt to hurt herself. She discussed her thoughts or plans with her significant other who brought her to the ER for evaluation. - Related Data Home Medications Medication Instructions Recorded Confirmed ARIPiprazole [Abilify] 15 mg PO HS 06/21/17 02/13/18 LORazepam [Ativan] 1 mg PO TID PRN 06/21/17 02/13/18 Amitriptyline HCl [Elavil] 10 mg PO HS 01/20/18 02/13/18 Pantoprazole [Protonix] 40 mg PO BID 01/20/18 02/13/18 Pravastatin Sodium [Pravachol] 20 mg PO HS 01/20/18 02/13/18 DULoxetine HCL [Cymbalta] 120 mg PO DAILY 02/13/18 02/13/18 Gabapentin [Neurontin] 400 mg PO TID 02/13/18 02/13/18 Previous Rx's Medication Instructions Recorded Acetaminophen Tab [Tylenol] 650 mg PO Q6HR PRN tab 01/22/18 Ondansetron Odt [Zofran Odt] 4 mg PO Q8HR PRN #20 tab 01/25/18 Allergies Allergy/AdvReac Type Severity Reaction Status Date / Time No Known Allergies Allergy Verified 02/13/18 22:26 Review of Systems ROS Statement: Those systems with pertinent positive or pertinent negative responses have been documented in the HPI. ROS Other: All systems not noted in ROS Statement are negative. Past Medical History Past Medical History: GERD/Reflux, GI Bleed Additional Past Medical History / Comment(s): gallstones, kidney stones, D&C History of Any Multi-Drug Resistant Organisms: None Reported Past Surgical History: Section, Cholecystectomy, Tubal Ligation Additional Past Surgical History / Comment(s): neck biopsy (lymph node ) 4x Past Anesthesia/Blood Transfusion Reactions: No Reported Reaction Past Psychological History: Anxiety, Bipolar, Depression, PTSD Smoking Status: Never smoker Past Alcohol Use History: None Reported Past Drug Use History: None Reported - Past Family History Mother Family Medical History: Diabetes Mellitus, Hyperlipidemia, Hypertension, Myocardial Infarction ([place]) General Exam Limitations: no limitations Course Vital Signs 02/13/18 02/14/18 21:55 06:31 Temperature 98.3 F 98.1 F Pulse Rate 102 H 93 Respiratory 18 18 Rate Blood Pressure 133/72 104/60 O2 Sat by Pulse 99 97 Oximetry Medical Decision Making - Medical Decision Making She was seen and evaluated history was obtained from the patient, sister at bedside and review of medical record. This is a patient with a history of depression, suicidal thoughts and a plan for overdose but tricyclic antidepressant depressants. Patient currently denies any ingestions. Labs and imaging were ordered. EKG with no significant findings. Labs relatively unremarkable, urine etc. suggestive of dehydration. Patient was evaluated by EPS who recommend the patient get placement in a psychiatric facility. A regular diet and patient's home medications were ordered pending transfer to a psychiatric facility. - Lab Data Result diagrams: 02/13/18 23:15 02/13/18 23:15 Lab Results 02/13/18 02/13/18 02/13/18 Range/Units 22:37 22:37 22:37 WBC (3.8-10.6) k/uL RBC (3.80-5.40) m/uL Hgb (11.4-16.0) gm/dL Hct (34.0-46.0) % MCV (80.0-100.0) fL MCH (25.0-35.0) pg MCHC (31.0-37.0) g/dL RDW (11.5-15.5) % Plt Count (150-450) k/uL Neutrophils % % Lymphocytes % % Monocytes % % Eosinophils % % Basophils % % Neutrophils # (1.3-7.7) k/uL Lymphocytes # (1.0-4.8) k/uL Monocytes # (0-1.0) k/uL Eosinophils # (0-0.7) k/uL Basophils # (0-0.2) k/uL Sodium (137-145) mmol/L Potassium (3.5-5.1) mmol/L Chloride (98-107) mmol/L Carbon Dioxide (22-30) mmol/L Anion Gap mmol/L BUN (7-17) mg/dL Creatinine (0.52-1.04) mg/dL Est GFR (CKD-EPI)AfAm (>60 ml/min/1.73 sqM) Est GFR (CKD-EPI)NonAf (>60 ml/min/1.73 sqM) Glucose (74-99) mg/dL Calcium (8.4-10.2) mg/dL Total Bilirubin (0.2-1.3) mg/dL AST (14-36) U/L ALT (9-52) U/L Alkaline Phosphatase (38-126) U/L Total Protein (6.3-8.2) g/dL Albumin (3.5-5.0) g/dL Urine Color Yellow Urine Appearance Cloudy H (Clear) Urine pH 5.5 (5.0-8.0) Ur Specific [place] 1.028 (1.001-1.035) Urine Protein Trace H (Negative) Urine Glucose (UA) Negative (Negative) Urine Ketones Negative (Negative) Urine Blood Moderate H (Negative) Urine Nitrite Negative (Negative) Urine Bilirubin Negative (Negative) Urine Urobilinogen 3.0 (<2.0) mg/dL Ur Leukocyte Esterase Negative (Negative) Urine RBC 4 (0-5) /hpf Urine WBC 2 (0-5) /hpf Ur Squamous Epith Cells 1 (0-4) /hpf Calcium Oxalate Crystal Many H (None) /hpf Urine Bacteria Occasional H (None) /hpf Urine Mucus Occasional H (None) /hpf Urine HCG, Qual Not Detected (Not Detectd) Urine Opiates Screen Not Detected (NotDetected) Ur Oxycodone Screen Not Detected (NotDetected) Urine Methadone Screen Not Detected (NotDetected) Ur Propoxyphene Screen Not Detected (NotDetected) Ur Barbiturates Screen Not Detected (NotDetected) U Tricyclic Antidepress Detected H (NotDetected) Ur Phencyclidine Scrn Not Detected (NotDetected) Ur Amphetamines Screen Not Detected (NotDetected) U Methamphetamines Scrn Not Detected (NotDetected) U Benzodiazepines Scrn Detected H (NotDetected) Urine Cocaine Screen Not Detected (NotDetected) U Marijuana (THC) Screen Not Detected (NotDetected) 02/13/18 02/13/18 Range/Units 23:15 23:15 WBC 10.2 (3.8-10.6) k/uL RBC 4.64 (3.80-5.40) m/uL Hgb 12.4 (11.4-16.0) gm/dL Hct 38.0 (34.0-46.0) % MCV 81.9 (80.0-100.0) fL MCH 26.6 (25.0-35.0) pg MCHC 32.5 (31.0-37.0) g/dL RDW 13.5 (11.5-15.5) % Plt Count 329 (150-450) k/uL Neutrophils % 58 % Lymphocytes % 34 % Monocytes % 5 % Eosinophils % 2 % Basophils % 1 % Neutrophils # 5.9 (1.3-7.7) k/uL Lymphocytes # 3.4 (1.0-4.8) k/uL Monocytes # 0.5 (0-1.0) k/uL Eosinophils # 0.2 (0-0.7) k/uL Basophils # 0.1 (0-0.2) k/uL Sodium 140 (137-145) mmol/L Potassium 3.9 (3.5-5.1) mmol/L Chloride 107 (98-107) mmol/L Carbon Dioxide 26 (22-30) mmol/L Anion Gap 7 mmol/L BUN 22 H (7-17) mg/dL Creatinine 0.78 (0.52-1.04) mg/dL Est GFR (CKD-EPI)AfAm >90 (>60 ml/min/1.73 sqM) Est GFR (CKD-EPI)NonAf >90 (>60 ml/min/1.73 sqM) Glucose 119 H (74-99) mg/dL Calcium 8.8 (8.4-10.2) mg/dL Total Bilirubin 0.4 (0.2-1.3) mg/dL AST 23 (14-36) U/L ALT 38 (9-52) U/L Alkaline Phosphatase 115 (38-126) U/L Total Protein 6.2 L (6.3-8.2) g/dL Albumin 3.5 (3.5-5.0) g/dL Urine Color Urine Appearance (Clear) Urine pH (5.0-8.0) Ur Specific [place] (1.001-1.035) Urine Protein (Negative) Urine Glucose (UA) (Negative) Urine Ketones (Negative) Urine Blood (Negative) Urine Nitrite (Negative) Urine Bilirubin (Negative) Urine Urobilinogen (<2.0) mg/dL Ur Leukocyte Esterase (Negative) Urine RBC (0-5) /hpf Urine WBC (0-5) /hpf Ur Squamous Epith Cells (0-4) /hpf Calcium Oxalate Crystal (None) /hpf Urine Bacteria (None) /hpf Urine Mucus (None) /hpf Urine HCG, Qual (Not Detectd) Urine Opiates Screen (NotDetected) Ur Oxycodone Screen (NotDetected) Urine Methadone Screen (NotDetected) Ur Propoxyphene Screen (NotDetected) Ur Barbiturates Screen (NotDetected) U Tricyclic Antidepress (NotDetected) Ur Phencyclidine Scrn (NotDetected) Ur Amphetamines Screen (NotDetected) U Methamphetamines Scrn (NotDetected) U Benzodiazepines Scrn (NotDetected) Urine Cocaine Screen (NotDetected) U Marijuana (THC) Screen (NotDetected) - EKG Data EKG Comments: EKG obtained at 10:43 PM, rate is 109, rhythm is sinus tachycardia, there is normal axis, normal intervals, AL 134, QRS 82, QTc 436. There is no acute ST elevations or depressions no evidence of acute ischemia or infarction. No evidence of an this EKG of any significant tricyclic antidepressant overdose. Disposition Clinical Impression: Depression, Suicidal ideation Disposition: TRANSFER TO PSYCH HOSP/UNIT Is patient prescribed a controlled substance at d/c from ED?: No Referrals: Olvin Keenan MD [Primary Care Provider] - 1-2 days
[2018-02-14 00:02] LABS: Basophils # (A) 0.1 k/uL (0-0.2); Basophils % (A) 1 %; Eosinophils # (A) 0.2 k/uL (0-0.7); Eosinophils % (A) 2 %; HGB 12.4 gm/dL (11.4-16.0); Lymphocytes # (A) 3.4 k/uL (1.0-4.8); Lymphocytes % (A) 34 %; MCH 26.6 pg (25.0-35.0); MCHC 32.5 g/dL (31.0-37.0); MCV 81.9 fL (80.0-100.0); Mean Platelet Volume 6.2; Monocytes # (A) 0.5 k/uL (0-1.0); Monocytes % (A) 5 %; Neutrophils # (A) 5.9 k/uL (1.3-7.7); Neutrophils % (A) 58 %; Platelet Count 329 k/uL (150-450); RBC 4.64 m/uL (3.80-5.40); RDW 13.5 % (11.5-15.5); WBC 10.2 k/uL (3.8-10.6)
[2018-02-14 00:34] LABS: ALT 38 U/L (9-52); AST 23 U/L (14-36); Albumin 3.5 g/dL (3.5-5.0); Alkaline Phosphatase 115 U/L (38-126); Anion Gap 7 mmol/L; Blood Urea Nitrogen 22 mg/dL (7-17); Calcium 8.8 mg/dL (8.4-10.2); Carbon Dioxide 26 mmol/L (22-30); Chloride 107 mmol/L (98-107); Glucose 119 mg/dL (74-99); Potassium 3.9 mmol/L (3.5-5.1); Sodium 140 mmol/L (137-145); Total Bilirubin 0.4 mg/dL (0.2-1.3); Total Protein 6.2 g/dL (6.3-8.2)
[2018-02-14] MEDS ORDERED: ACETAMINOPHEN TAB 325 MG TAB PO PRN (02:01)
[2018-02-14] MEDS ORDERED: LORazepam 1 MG TAB PO PRN (02:01)
[2018-02-14] MEDS ORDERED: ONDANSETRON ODT 4 MG TAB PO PRN (02:01)
[2018-02-14] MEDS ORDERED: AMITRIPTYLINE HCL 10 MG TAB PO STA (02:44)
[2018-02-14] MEDS ORDERED: ARIPiprazole 15 MG TAB PO STA (02:44)
[2018-02-14 06:34] VITALS: BP 104/60; PULSE 93; TEMP 98.1
[2018-02-14] MEDS ORDERED: GABAPENTIN 400 MG CAP PO SCH (09:00)
[2018-02-14] MEDS ORDERED: DULoxetine HCL 60 MG CAPSULE.DR PO SCH (09:00)
[2018-02-14] MEDS ORDERED: PANTOPRAZOLE 40 MG TABLET PO SCH (09:00)
== END 2018-02-14 07:02 ==
LOC: EC 21:45
DX: F31.9 Bipolar disorder, unspecified (principal); R45.851 Suicidal ideations; K21.9 Gastro-esophageal reflux disease without esophagitis; F41.9 Anxiety disorder, unspecified; F43.10 Post-traumatic stress disorder, unspecified; Z79.899 Other long term (current) drug therapy
CPT/HCPCS: 36415; 80053; 80306; 81001; 81025; 82075; 85025; 93005; 99285

== ENCOUNTER 2018-03-13 20:11 | Emergency (ER) | payer OTHER ==
[2018-03-13 20:27] VITALS: RESP 17; TEMP 98.6
[2018-03-13] MEDS ORDERED: ONDANSETRON 4 MG/2 ML VIAL IVP STA (21:13)
[2018-03-13] MEDS ORDERED: PANTOPRAZOLE 40 MG/10 ML VIAL IVP STA (21:13)
[2018-03-13] MEDS ORDERED: SODIUM CHLORIDE 0.9% 1,000 ML IV STA (21:13)
--- NOTE | 2018-03-13 21:25 | ED ---
GI Bleed HPI - General Chief complaint: GI Bleed Stated complaint: Vomiting blood, Abd pain Time Seen by Provider: 03/13/18 21:13 Source: patient, RN notes reviewed, old records reviewed Mode of arrival: ambulatory Limitations: no limitations - History of Present Illness Initial comments: This is a 28-year-old female the ER for evaluation she presents today for evaluation regards to vomiting of blood. Patient has history of hematemesis vomiting blood and a blood thinners. Mild abdominal pain. Patient's vomiting started with blood there is no vomiting prior to that. No blood in her stool. Bowel pain is improved with fever cough or congestion no trauma MD complaint: blood streaked emesis, gross hematemesis -: hour(s) Radiation: none Severity scale (1-10): 3 Quality: painless Consistency: now resolved Improves with: none Worsens with: none Context: other (Unknown cause of prior hematemesis) Associated Symptoms: nausea Treatments Prior to Arrival: none - Related Data Home Medications Medication Instructions Recorded Confirmed ARIPiprazole [Abilify] 15 mg PO HS 06/21/17 03/13/18 LORazepam [Ativan] 1 mg PO TID PRN 06/21/17 03/13/18 Amitriptyline HCl [Elavil] 10 mg PO HS 01/20/18 03/13/18 Pantoprazole [Protonix] 40 mg PO BID 01/20/18 03/13/18 Pravastatin Sodium [Pravachol] 20 mg PO HS 01/20/18 03/13/18 DULoxetine HCL [Cymbalta] 60 mg PO HS 02/13/18 03/13/18 Gabapentin [Neurontin] 400 mg PO TID 02/13/18 03/13/18 Venlafaxine HCl [Effexor XR] 75 mg PO DAILY 03/13/18 03/13/18 Previous Rx's Medication Instructions Recorded Acetaminophen Tab [Tylenol] 650 mg PO Q6HR PRN tab 01/22/18 Ondansetron Odt [Zofran Odt] 4 mg PO Q8HR PRN #20 tab 01/25/18 Allergies Allergy/AdvReac Type Severity Reaction Status Date / Time No Known Allergies Allergy Verified 03/13/18 21:06 Review of Systems ROS Statement: Those systems with pertinent positive or pertinent negative responses have been documented in the HPI. ROS Other: All systems not noted in ROS Statement are negative. Past Medical History Past Medical History: GERD/Reflux, GI Bleed Additional Past Medical History / Comment(s): gallstones, kidney stones, D&C History of Any Multi-Drug Resistant Organisms: None Reported Past Surgical History: Section, Cholecystectomy, Tubal Ligation Additional Past Surgical History / Comment(s): neck biopsy (lymph node ) 4x Past Anesthesia/Blood Transfusion Reactions: No Reported Reaction Past Psychological History: Anxiety, Bipolar, Depression, PTSD Smoking Status: Never smoker Past Alcohol Use History: None Reported Past Drug Use History: None Reported - Past Family History Mother Family Medical History: Diabetes Mellitus, Hyperlipidemia, Hypertension, Myocardial Infarction ([place]) General Exam Limitations: no limitations General appearance: alert, in no apparent distress Head exam: Present: atraumatic, normocephalic, normal inspection Eye exam: Present: normal appearance, PERRL, EOMI. Absent: scleral icterus, conjunctival injection, periorbital swelling ENT exam: Present: normal exam, mucous membranes moist Neck exam: Present: normal inspection. Absent: tenderness, meningismus, lymphadenopathy Respiratory exam: Present: normal lung sounds bilaterally. Absent: respiratory distress, wheezes, rales, rhonchi, stridor Cardiovascular Exam: Present: normal rhythm, tachycardia, normal heart sounds. Absent: systolic murmur, diastolic murmur, rubs, gallop, clicks GI/Abdominal exam: Present: soft, normal bowel sounds. Absent: distended, tenderness, guarding, rebound, rigid Extremities exam: Present: normal inspection, full ROM, normal capillary refill. Absent: tenderness, pedal edema, joint swelling, calf tenderness Back exam: Present: normal inspection Neurological exam: Present: alert, oriented X3, CN II-XII intact Psychiatric exam: Present: normal affect, normal mood Skin exam: Present: warm, dry, intact, normal color. Absent: rash Course Vital Signs 03/13/18 20:24 Temperature 98.6 F Pulse Rate 133 H Respiratory 17 Rate Blood Pressure 152/90 O2 Sat by Pulse 97 Oximetry - Reevaluation(s) Reevaluation #1: 03/13/18 22:35 Medical record is reviewed Reevaluation #2: 03/13/18 22:35 Patient patient at length regarding vomiting of blood, causes and symptoms. Patient can present back to emergency room if she feels lightheaded dizziness or syncopal. Cautions are answered Medical Decision Making - Medical Decision Making 28 female the ER for evaluation, patient resents today for evaluation regards to vomiting of blood. Vomiting of blood 3. Patient states she has history of this before with positive scope which was negative for acute disease. Patient is on a blood thinners of the multiple psychiatric medications with normal heart rate. Patient denies any other complaints of chest pain or abdominal pain. - Lab Data Result diagrams: 03/13/18 21:00 03/13/18 21:00 Lab Results 03/13/18 03/13/18 03/13/18 Range/Units 21:00 21:00 21:00 WBC 11.7 H (3.8-10.6) k/uL RBC 4.96 (3.80-5.40) m/uL Hgb 13.5 (11.4-16.0) gm/dL Hct 39.9 (34.0-46.0) % MCV 80.5 (80.0-100.0) fL MCH 27.1 (25.0-35.0) pg MCHC 33.7 (31.0-37.0) g/dL RDW 13.7 (11.5-15.5) % Plt Count 358 (150-450) k/uL Neutrophils % 63 % Lymphocytes % 28 % Monocytes % 4 % Eosinophils % 4 % Basophils % 0 % Neutrophils # 7.3 (1.3-7.7) k/uL Lymphocytes # 3.2 (1.0-4.8) k/uL Monocytes # 0.5 (0-1.0) k/uL Eosinophils # 0.4 (0-0.7) k/uL Basophils # 0.0 (0-0.2) k/uL PT (9.0-12.0) sec INR (<1.2) APTT (22.0-30.0) sec Sodium 140 (137-145) mmol/L Potassium 3.9 (3.5-5.1) mmol/L Chloride 108 H (98-107) mmol/L Carbon Dioxide 22 (22-30) mmol/L Anion Gap 10 mmol/L BUN 16 (7-17) mg/dL Creatinine 0.66 (0.52-1.04) mg/dL Est GFR (CKD-EPI)AfAm >90 (>60 ml/min/1.73 sqM) Est GFR (CKD-EPI)NonAf >90 (>60 ml/min/1.73 sqM) Glucose 171 H (74-99) mg/dL Calcium 9.4 (8.4-10.2) mg/dL Magnesium 1.8 (1.6-2.3) mg/dL Total Bilirubin 0.5 (0.2-1.3) mg/dL AST 24 (14-36) U/L ALT 38 (9-52) U/L Alkaline Phosphatase 125 (38-126) U/L Total Creatine Kinase 49 (30-135) U/L CK-MB (CK-2) <0.2 (0.0-2.4) ng/mL CK-MB (CK-2) Rel Index Troponin I <0.012 (0.000-0.034) ng/mL Total Protein 6.8 (6.3-8.2) g/dL Albumin 3.7 (3.5-5.0) g/dL Lipase 80 (23-300) U/L 03/13/18 Range/Units 21:00 WBC (3.8-10.6) k/uL RBC (3.80-5.40) m/uL Hgb (11.4-16.0) gm/dL Hct (34.0-46.0) % MCV (80.0-100.0) fL MCH (25.0-35.0) pg MCHC (31.0-37.0) g/dL RDW (11.5-15.5) % Plt Count (150-450) k/uL Neutrophils % % Lymphocytes % % Monocytes % % Eosinophils % % Basophils % % Neutrophils # (1.3-7.7) k/uL Lymphocytes # (1.0-4.8) k/uL Monocytes # (0-1.0) k/uL Eosinophils # (0-0.7) k/uL Basophils # (0-0.2) k/uL PT 9.6 (9.0-12.0) sec INR 1.0 (<1.2) APTT 22.5 (22.0-30.0) sec Sodium (137-145) mmol/L Potassium (3.5-5.1) mmol/L Chloride (98-107) mmol/L Carbon Dioxide (22-30) mmol/L Anion Gap mmol/L BUN (7-17) mg/dL Creatinine (0.52-1.04) mg/dL Est GFR (CKD-EPI)AfAm (>60 ml/min/1.73 sqM) Est GFR (CKD-EPI)NonAf (>60 ml/min/1.73 sqM) Glucose (74-99) mg/dL Calcium (8.4-10.2) mg/dL Magnesium (1.6-2.3) mg/dL Total Bilirubin (0.2-1.3) mg/dL AST (14-36) U/L ALT (9-52) U/L Alkaline Phosphatase (38-126) U/L Total Creatine Kinase (30-135) U/L CK-MB (CK-2) (0.0-2.4) ng/mL CK-MB (CK-2) Rel Index Troponin I (0.000-0.034) ng/mL Total Protein (6.3-8.2) g/dL Albumin (3.5-5.0) g/dL Lipase (23-300) U/L Disposition Clinical Impression: Hematemesis Disposition: HOME SELF-CARE Condition: Good Instructions: Gastrointestinal Bleeding (ED), Hematemesis (ED) Is patient prescribed a controlled substance at d/c from ED?: No Referrals: Olvin Keenan MD [Primary Care Provider] - 1-2 days
[2018-03-13 21:35] LABS: Basophils % (A) 0 %; Eosinophils # (A) 0.4 k/uL (0-0.7); Eosinophils % (A) 4 %; HCT 39.9 % (34.0-46.0); HGB 13.5 gm/dL (11.4-16.0); Lymphocytes # (A) 3.2 k/uL (1.0-4.8); Lymphocytes % (A) 28 %; MCH 27.1 pg (25.0-35.0); MCHC 33.7 g/dL (31.0-37.0); MCV 80.5 fL (80.0-100.0); Mean Platelet Volume 6.4; Monocytes # (A) 0.5 k/uL (0-1.0); Monocytes % (A) 4 %; Neutrophils # (A) 7.3 k/uL (1.3-7.7); Neutrophils % (A) 63 %; Platelet Count 358 k/uL (150-450); RBC 4.96 m/uL (3.80-5.40); RDW 13.7 % (11.5-15.5); WBC 11.7 k/uL (3.8-10.6)
[2018-03-13 21:45] LABS: Partial Thromboplastin Time 22.5 sec (22.0-30.0); Prothrombin Time 9.6 sec (9.0-12.0)
[2018-03-13 21:48] LABS: ALT 38 U/L (9-52); AST 24 U/L (14-36); Albumin 3.7 g/dL (3.5-5.0); Alkaline Phosphatase 125 U/L (38-126); Anion Gap 10 mmol/L; Blood Urea Nitrogen 16 mg/dL (7-17); Calcium 9.4 mg/dL (8.4-10.2); Carbon Dioxide 22 mmol/L (22-30); Chloride 108 mmol/L (98-107); Glucose 171 mg/dL (74-99); Lipase 80 U/L (23-300); Magnesium 1.8 mg/dL (1.6-2.3); Potassium 3.9 mmol/L (3.5-5.1); Sodium 140 mmol/L (137-145); Total Bilirubin 0.5 mg/dL (0.2-1.3); Total Protein 6.8 g/dL (6.3-8.2)
[2018-03-13 21:51] LABS: Creatine Kinase 49 U/L (30-135)
[2018-03-13 22:04] LABS: Creatine Kinase MB <0.2 ng/mL (0.0-2.4); Troponin I <0.012 ng/mL (0.000-0.034)
[2018-03-13 23:38] VITALS: BP 108/63; PULSE 112
== END 2018-03-13 23:39 | disposition home or self-care (01) ==
LOC: EC 20:11
DX: K92.0 Hematemesis (principal); R00.0 Tachycardia, unspecified; K21.9 Gastro-esophageal reflux disease without esophagitis; F31.9 Bipolar disorder, unspecified; F41.9 Anxiety disorder, unspecified; Z79.899 Other long term (current) drug therapy; Z90.49 Acquired absence of other specified parts of digestive tract
CPT/HCPCS: 36415; 80053; 82550; 82553; 83690; 83735; 84484; 85025; 85610; 85730; 99285; 96374; 96375; 96361 ×2; J2405; C9113

== ENCOUNTER 2018-05-07 18:49 | Observation (INO) | payer OTHER ==
[2018-05-07 20:00] LABS: Basophils # (A) 0.1 k/uL (0-0.2); Basophils % (A) 1 %; Eosinophils # (A) 0.3 k/uL (0-0.7); Eosinophils % (A) 3 %; HCT 38.8 % (34.0-46.0); HGB 12.8 gm/dL (11.4-16.0); Hypochromasia Slight; Lymphocytes # (A) 3.2 k/uL (1.0-4.8); Lymphocytes % (A) 33 %; MCH 26.6 pg (25.0-35.0); MCV 80.4 fL (80.0-100.0); Mean Platelet Volume 6.5; Monocytes # (A) 0.4 k/uL (0-1.0); Monocytes % (A) 5 %; Neutrophils # (A) 5.4 k/uL (1.3-7.7); Neutrophils % (A) 57 %; Platelet Count 358 k/uL (150-450); RBC 4.82 m/uL (3.80-5.40); RDW 13.8 % (11.5-15.5); WBC 9.5 k/uL (3.8-10.6)
[2018-05-07 20:07] LABS: Appearance,Urine Cloudy (Clear); Bilirubin,Urine Negative (Negative); Blood,Urine Moderate (Negative); Color,Urine Yellow; Glucose,Urine (UA) Negative (Negative); Ketones,Urine Negative (Negative); Leukocyte Esterase,Urine Negative (Negative); Mucus,Urine Occasional /hpf; Nitrite,Urine Negative (Negative); PH, Urine 5.5 (5.0-8.0); Protein,Urine Trace (Negative); RBC,Urine 2 /hpf (0-5); Specific Gravity,Urine 1.029 (1.001-1.035); Squamous Epithelial Cell,Urine 5 /hpf (0-4); WBC,Urine 5 /hpf (0-5)
[2018-05-07 20:16] LABS: ALT 50 U/L (9-52); AST 31 U/L (14-36); Albumin 4.2 g/dL (3.5-5.0); Alkaline Phosphatase 111 U/L (38-126); Amylase 39 U/L (30-110); Anion Gap 7 mmol/L; Blood Urea Nitrogen 13 mg/dL (7-17); Calcium 9.4 mg/dL (8.4-10.2); Carbon Dioxide 26 mmol/L (22-30); Chloride 109 mmol/L (98-107); Glucose 82 mg/dL (74-99); Lipase 62 U/L (23-300); Potassium 4.4 mmol/L (3.5-5.1); Sodium 142 mmol/L (137-145); Total Bilirubin 0.5 mg/dL (0.2-1.3); Total Protein 7.2 g/dL (6.3-8.2)
[2018-05-07] MEDS ORDERED: ONDANSETRON ODT 8 MG TAB.RAPDIS PO STA (21:06)
[2018-05-07] MEDS ORDERED: PANTOPRAZOLE 40 MG/10 ML VIAL IVP ONE (21:12)
--- NOTE | 2018-05-07 21:20 | ED ---
General Adult HPI - General Chief complaint: Abdominal Pain Stated complaint: Abd pain, vomiting blood for several days Source: patient Mode of arrival: ambulatory Limitations: no limitations - Related Data Home Medications Medication Instructions Recorded Confirmed ARIPiprazole [Abilify] 15 mg PO HS 06/21/17 05/07/18 LORazepam [Ativan] 1 mg PO TID PRN 06/21/17 05/07/18 Amitriptyline HCl [Elavil] 10 mg PO HS 01/20/18 05/07/18 Pantoprazole [Protonix] 40 mg PO BID 01/20/18 05/07/18 Pravastatin Sodium [Pravachol] 20 mg PO HS 01/20/18 05/07/18 Gabapentin [Neurontin] 400 mg PO TID 02/13/18 05/07/18 Venlafaxine HCl [Effexor XR] 75 mg PO HS 03/13/18 05/07/18 Dicyclomine [Bentyl] 20 mg PO QID 05/07/18 05/07/18 Previous Rx's Medication Instructions Recorded Acetaminophen Tab [Tylenol] 650 mg PO Q6HR PRN tab 01/22/18 Ondansetron Odt [Zofran Odt] 4 mg PO Q8HR PRN #20 tab 01/25/18 Allergies Allergy/AdvReac Type Severity Reaction Status Date / Time No Known Allergies Allergy Verified 05/07/18 21:13 Review of Systems ROS Statement: Those systems with pertinent positive or pertinent negative responses have been documented in the HPI. ROS Other: All systems not noted in ROS Statement are negative. Past Medical History Past Medical History: GERD/Reflux, GI Bleed Additional Past Medical History / Comment(s): gallstones, kidney stones, D&C History of Any Multi-Drug Resistant Organisms: None Reported Past Surgical History: Section, Cholecystectomy, Tubal Ligation Additional Past Surgical History / Comment(s): neck biopsy (lymph node ) 4x Past Anesthesia/Blood Transfusion Reactions: No Reported Reaction Past Psychological History: Anxiety, Bipolar, Depression, PTSD Smoking Status: Never smoker Past Alcohol Use History: None Reported Past Drug Use History: None Reported - Past Family History Mother Family Medical History: Diabetes Mellitus, Hyperlipidemia, Hypertension, Myocardial Infarction ([place]) General Exam Limitations: no limitations Course Vital Signs 05/07/18 05/07/18 19:36 21:50 Temperature 98.9 F Pulse Rate 99 96 Respiratory 18 18 Rate Blood Pressure 138/84 100/68 O2 Sat by Pulse 97 99 Oximetry Medical Decision Making - Medical Decision Making Dictation was produced using [employer] dictation software. please excuse any grammatical, word or spelling errors. Chief Complaint: 28-year-old female past medical history of GI problems presents with hematemesis 4 days. History of Present Illness: He 8-year-old obese female presents with hematemesis 4 days. Patient states she is having reflux type symptoms. She states she has 4-5 episodes of bright red blood in her vomit with her food. Patient states she's been evaluated by gastroenterology in the past. Her GI doctor is Dr. Judge. She states she's had endoscopy as recently as one year ago. She states that she's had negative endoscopies. Patient states she feels unwell and unable to tolerate by mouth. She does report constant epigastric abdominal pain. The ROS documented in this emergency department record has been reviewed and confirmed by me. Those systems with pertinent positive or negative responses have been documented in the HPI. All other systems are other negative and/or noncontributory. PHYSICAL EXAM: General Impression: Alert and oriented x3, not in acute distress HEENT: Normocephalic atraumatic, extra-ocular movements intact, pupils equal and reactive to light bilaterally, mucous membranes moist. Cardiovascular: Heart regular rate and rhythm, S1&S2 audible, no murmurs, rubs or gallops Chest: Lungs clear to auscultation bilaterally, no rhonchi, no wheeze, no rales Abdomen: Bowel sounds present, abdomen soft, mild tenderness to the epigastrium , non-distended, no organomegaly Musculoskeletal: Pulses present and equal in all extremities, no peripheral edema Motor: Power 5/5 bilaterally, no focal deficits noted Neurological: CN II-XII grossly intact, no focal motor or sensory deficits noted Skin: Intact with no visualized rashes Psych: Normal affect and mood ED course: 28-year-old female with past history of morbid obesity presents with hematemesis and epigastric abdominal pain. Vital signs upon arrival are within acceptable limits. Physical examination is positive for mild tenderness to palpation of the epigastric area. Patient not actively vomiting at this time. Laboratory evaluation obtained. Hemoglobin stable at 12.8. Patient's feels as though her symptoms are very severe. Patient is not tolerating by mouth. Patient given Protonix, antinausea medication. Started on intravenous fluids. We'll keep her in the hospital for GI consultation. Bleeding GI ulcer. - Lab Data Result diagrams: 05/07/18 19:45 05/07/18 19:45 Lab Results 05/07/18 05/07/18 05/07/18 Range/Units 19:45 19:45 19:45 WBC 9.5 (3.8-10.6) k/uL RBC 4.82 (3.80-5.40) m/uL Hgb 12.8 (11.4-16.0) gm/dL Hct 38.8 (34.0-46.0) % MCV 80.4 (80.0-100.0) fL MCH 26.6 (25.0-35.0) pg MCHC 33.0 (31.0-37.0) g/dL RDW 13.8 (11.5-15.5) % Plt Count 358 (150-450) k/uL Neutrophils % 57 % Lymphocytes % 33 % Monocytes % 5 % Eosinophils % 3 % Basophils % 1 % Neutrophils # 5.4 (1.3-7.7) k/uL Lymphocytes # 3.2 (1.0-4.8) k/uL Monocytes # 0.4 (0-1.0) k/uL Eosinophils # 0.3 (0-0.7) k/uL Basophils # 0.1 (0-0.2) k/uL Hypochromasia Slight Sodium 142 (137-145) mmol/L Potassium 4.4 (3.5-5.1) mmol/L Chloride 109 H (98-107) mmol/L Carbon Dioxide 26 (22-30) mmol/L Anion Gap 7 mmol/L BUN 13 (7-17) mg/dL Creatinine 0.74 (0.52-1.04) mg/dL Est GFR (CKD-EPI)AfAm >90 (>60 ml/min/1.73 sqM) Est GFR (CKD-EPI)NonAf >90 (>60 ml/min/1.73 sqM) Glucose 82 (74-99) mg/dL Calcium 9.4 (8.4-10.2) mg/dL Total Bilirubin 0.5 (0.2-1.3) mg/dL AST 31 (14-36) U/L ALT 50 (9-52) U/L Alkaline Phosphatase 111 (38-126) U/L Total Protein 7.2 (6.3-8.2) g/dL Albumin 4.2 (3.5-5.0) g/dL Amylase 39 (30-110) U/L Lipase 62 (23-300) U/L Urine Color Yellow Urine Appearance Cloudy H (Clear) Urine pH 5.5 (5.0-8.0) Ur Specific [place] 1.029 (1.001-1.035) Urine Protein Trace H (Negative) Urine Glucose (UA) Negative (Negative) Urine Ketones Negative (Negative) Urine Blood Moderate H (Negative) Urine Nitrite Negative (Negative) Urine Bilirubin Negative (Negative) Urine Urobilinogen 3.0 (<2.0) mg/dL Ur Leukocyte Esterase Negative (Negative) Urine RBC 2 (0-5) /hpf Urine WBC 5 (0-5) /hpf Ur Squamous Epith Cells 5 H (0-4) /hpf Urine Mucus Occasional H (None) /hpf Urine HCG, Qual (Not Detectd) 05/07/18 Range/Units 19:45 WBC (3.8-10.6) k/uL RBC (3.80-5.40) m/uL Hgb (11.4-16.0) gm/dL Hct (34.0-46.0) % MCV (80.0-100.0) fL MCH (25.0-35.0) pg MCHC (31.0-37.0) g/dL RDW (11.5-15.5) % Plt Count (150-450) k/uL Neutrophils % % Lymphocytes % % Monocytes % % Eosinophils % % Basophils % % Neutrophils # (1.3-7.7) k/uL Lymphocytes # (1.0-4.8) k/uL Monocytes # (0-1.0) k/uL Eosinophils # (0-0.7) k/uL Basophils # (0-0.2) k/uL Hypochromasia Sodium (137-145) mmol/L Potassium (3.5-5.1) mmol/L Chloride (98-107) mmol/L Carbon Dioxide (22-30) mmol/L Anion Gap mmol/L BUN (7-17) mg/dL Creatinine (0.52-1.04) mg/dL Est GFR (CKD-EPI)AfAm (>60 ml/min/1.73 sqM) Est GFR (CKD-EPI)NonAf (>60 ml/min/1.73 sqM) Glucose (74-99) mg/dL Calcium (8.4-10.2) mg/dL Total Bilirubin (0.2-1.3) mg/dL AST (14-36) U/L ALT (9-52) U/L Alkaline Phosphatase (38-126) U/L Total Protein (6.3-8.2) g/dL Albumin (3.5-5.0) g/dL Amylase (30-110) U/L Lipase (23-300) U/L Urine Color Urine Appearance (Clear) Urine pH (5.0-8.0) Ur Specific [place] (1.001-1.035) Urine Protein (Negative) Urine Glucose (UA) (Negative) Urine Ketones (Negative) Urine Blood (Negative) Urine Nitrite (Negative) Urine Bilirubin (Negative) Urine Urobilinogen (<2.0) mg/dL Ur Leukocyte Esterase (Negative) Urine RBC (0-5) /hpf Urine WBC (0-5) /hpf Ur Squamous Epith Cells (0-4) /hpf Urine Mucus (None) /hpf Urine HCG, Qual Not Detected (Not Detectd) Disposition Clinical Impression: Hematemesis with nausea Disposition: ADMITTED IP TO THIS [facility] Condition: Fair Referrals: Olvin Keenan MD [Primary Care Provider] - 1-2 days Decision Time: 22:50
--- NOTE | 2018-05-07 21:34 | XR ---
EXAMINATION TYPE: XR abdomen acute w cxr DATE OF EXAM: 05/07/2018 COMPARISON: 01/20/2018 HISTORY: Abdominal pain TECHNIQUE: Chest x-ray with supine and upright abdomen FINDINGS: Heart and mediastinum are normal. Lungs are clear. Diaphragm is normal. Bowel gas pattern is normal. There is no sign of intestinal obstruction or pneumoperitoneum. Fecal pattern is normal. There are no pathologic calcifications. There are clips from cholecystectomy. There are clips from tubal ligation . IMPRESSION: Nonacute abdomen. Normal chest. Abdomen unchanged.
[2018-05-07] MEDS ORDERED: ONDANSETRON 4 MG/2 ML VIAL IVP STA ×2 (21:37→21:48)
[2018-05-07] MEDS ORDERED: NALOXONE 0.4 MG/ML 1 ML VIAL IV PRN (22:50)
[2018-05-07] MEDS ORDERED: MORPHINE SULFATE 4 MG/ML SYRINGE IVP STA (23:30)
[2018-05-07] MEDS: SODIUM CHLORIDE 0.9% 1,000 ML IV SCH (23:49)
[2018-05-08 00:45] VITALS: BMI 111.2
[2018-05-08 01:48] LABS: HCT 33.7 % (34.0-46.0); HGB 11.2 gm/dL (11.4-16.0); Hypochromasia Slight; MCH 26.7 pg (25.0-35.0); MCHC 33.2 g/dL (31.0-37.0); MCV 80.4 fL (80.0-100.0); Mean Platelet Volume 6.5; Platelet Count 306 k/uL (150-450); RBC 4.19 m/uL (3.80-5.40); WBC 9.2 k/uL (3.8-10.6)
[2018-05-08] MEDS: ONDANSETRON 4 MG/2 ML VIAL IVP PRN ×3 (03:42→18:15)
[2018-05-08] MEDS: ACETAMINOPHEN IV (For NPO) 1,000 MG in EMPTY BAG 1 BAG IVPB PRN ×3 (03:43→15:06)
[2018-05-08] MEDS ORDERED: LORazepam 1 MG TAB PO PRN (05:37)
[2018-05-08] MEDS ORDERED: ACETAMINOPHEN TAB 325 MG TAB PO PRN (05:37)
[2018-05-08] MEDS: GABAPENTIN 400 MG CAP PO SCH ×3 (08:27→21:33)
[2018-05-08] MEDS: SODIUM CHLORIDE 0.9% 1,000 ML IV SCH ×2 (08:27→18:15)
[2018-05-08] MEDS: DICYCLOMINE 20 MG TAB PO SCH ×5 (08:27→21:33)
[2018-05-08] MEDS: PANTOPRAZOLE 40 MG/10 ML VIAL IV SCH (08:27)
[2018-05-08 08:37] LABS: HCT 34.4 % (34.0-46.0); HGB 10.8 gm/dL (11.4-16.0); Hypochromasia Slight; MCH 25.5 pg (25.0-35.0); MCHC 31.3 g/dL (31.0-37.0); MCV 81.4 fL (80.0-100.0); Mean Platelet Volume 6.3; Platelet Count 284 k/uL (150-450); RBC 4.22 m/uL (3.80-5.40); RDW 13.7 % (11.5-15.5)
[2018-05-08 09:00] LABS: Anion Gap 4 mmol/L; Blood Urea Nitrogen 15 mg/dL (7-17); Calcium 8.4 mg/dL (8.4-10.2); Carbon Dioxide 29 mmol/L (22-30); Chloride 110 mmol/L (98-107); Glucose 92 mg/dL (74-99); Potassium 4.5 mmol/L (3.5-5.1); Sodium 143 mmol/L (137-145)
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
[2018-05-08] MEDS ORDERED: PROPOFOL 10 MG/ML 20 ML VIAL IV ONE (13:37)
[2018-05-08] MEDS ORDERED: LIDOCAINE 1% INJ 10MG/ML (20 ML MDV) ONE (13:37)
[2018-05-08] MEDS ORDERED: IV FLUID CONTINUATION 300 ML IV ONE (13:41)
--- NOTE | 2018-05-08 14:03 | P.PCN ---
Date of Procedure: 05/08/18 Description of Procedure: BRIEF HISTORY: 28-year-old female with a history of cholecystectomy, cholelithiasis, bipolar depression, PTSD, GERD, multiple hospitalizations for epigastric pain nausea vomiting hematemesis admitted with reports of hematemesis. Last episode of hematemesis described as "bright red" was last night. Midepigastric tenderness. Denies hematochezia or melena. No fever or chills. She's had multiple hospitalizations in the past regarding these GI symptoms. Last EGD was February 2017 with findings of mild antral gastritis and LA grade a reflux esophagitis. No alcohol NSAIDs or aspirin. Home medications include Protonix 40 mg twice a day. Average hemoglobin ranges between 12 and 13. Admission hemoglobin 11.2. Presently 10.8. Platelet 284. White count 7. BUN 15. Creatinine 0.9. Abdominal films nonacute. HCG not detected.. PROCEDURE PERFORMED: Esophagogastroduodenoscopy with biopsy. PREOPERATIVE DIAGNOSIS: hematemesis, anemia of acute blood loss . ESTIMATED BLOOD LOSS: Minimal. IV sedation per anesthesia. PROCEDURE: After informed consent was obtained, the patient was brought into the endoscopy unit. IV sedation was administered by Anesthesia under continuous monitoring. Initially the Olympus GIF-190 video endoscope was inserted into the mouth. Esophagus intubated without any difficulty. It was gradually advanced into the stomach and duodenum and carefully examined. The bulb and the second part of the duodenum appeared normal. The scope at this time was withdrawn to the stomach, adequately insufflated with air, and upon careful examination, mucosa of the antrum, body, cardia and the fundus appeared normal. Except for some mild scattered erythema in the antrum and body suggestive of gastritis, biopsied. The scope was then withdrawn into the esophagus. The GE junction was located at 36 cm from the incisors. The esophagus appeared normal. There were no erosions or ulcerations seen and the patient tolerated the procedure well. IMPRESSION: 1. No active bleeding or old blood. 2. Mild gastritis of the antrum and body, biopsied. RECOMMENDATIONS: The findings of this examination were discussed with the patient. Given findings of upper endoscopy suspicion is for Martine Guevara tear. Monitory H/H and transfuse as needed. Okay for full liquids, advance as tolerated.
[2018-05-08] MEDS ORDERED: ONDANSETRON ODT 4 MG TAB PO PRN (20:12)
[2018-05-08] MEDS ORDERED: VENLAFAXINE HCL ER 75 MG CAP PO SCH (21:00)
[2018-05-08] MEDS ORDERED: PRAVASTATIN SODIUM 20 MG TAB PO SCH (21:00)
[2018-05-08] MEDS ORDERED: AMITRIPTYLINE HCL 10 MG TAB PO SCH (21:00)
[2018-05-08] MEDS ORDERED: ARIPiprazole 15 MG TAB PO SCH (21:00)
--- NOTE | 2018-05-08 21:32 | HP ---
HISTORY AND PHYSICAL DATE OF ADMISSION: 05/07/2018. DATE OF SERVICE: 05/08/2018. PRESENTING COMPLAINT: Vomiting blood. HISTORY OF PRESENTING COMPLAINT: This is a 28-year-old patient of Dr. Keenan. Chronic stable medical conditions include bipolar disorder, PTSD, obesity. The patient was last here in January of 2018. The patient, in June of 2017, had an EGD by Dr. Vyas, was found to have esophagitis and mild gastritis. The patient at that time had presented with hematemesis and then resolved conservatively. This time she presents with vomiting blood 3 to 4 times a day with abdominal pain and dark stools. When I saw her this morning patient was planning to go for EGD. No dizziness. No lightheadedness. No fever, no chills. Denies taking any NSAIDs. REVIEW OF SYSTEMS: CONSTITUTIONAL: Tired. HEENT: None. RESPIRATORY: None. GASTROINTESTINAL: As above. GENITOURINARY: None. MUSCULOSKELETAL: None. HEMATOLOGIC: As above. LYMPHATICS: None. PSYCHIATRIC: Anxious. NEUROLOGIC: None. PAST MEDICAL HISTORY: GERD, esophagitis, kidney stones, bipolar, PTSD. PAST SURGICAL HISTORY: , cholecystectomy, tubal ligation. SOCIAL HISTORY: No smoking, no recreational drugs. Lives with her mother. Has 4 children. Not employed. No alcohol. FAMILY HISTORY: Diabetes, hyperlipidemia, hypertension, myocardial infarction. HOME MEDICATIONS: 1. Effexor XR 75 mg p.o. at bedtime. 2. Pravachol 20 mg at bedtime. 3. Protonix 40 mg b.i.d. 4. Zofran 4 mg every 8 hours p.r.n. 5. Ativan 1 mg p.o. t.i.d. p.r.n. 6. Neurontin 400 mg t.i.d. 7. Bentyl 20 mg q.i.d. 8. Elavil 10 mg at bedtime. 9. Tylenol 650 mg every 6 hours p.r.n. 10.Abilify 50 mg at bedtime. ALLERGIES: None. PHYSICAL EXAMINATION: Temperature 97.1, pulse 77, respirations 16, blood pressure 112/73, pulse ox 98% on room air. GENERAL APPEARANCE: Well-built. BMI greater than 49. Lying in bed, awake. EYES: Pupils equal. Conjunctivae normal. HEENT: External nose and ears normal. Oral cavity normal. NECK: JVD not raised. Mass not palpable. Respiratory effort normal. LUNGS: Clear. CARDIOVASCULAR: 1st and 2nd sounds normal. No edema. ABDOMEN: Soft, nontender. Liver and spleen not palpable. LYMPHATICS: No lymph nodes palpable in neck or axillae. PSYCHIATRY: Alert and oriented x3. Mood and affect normal. NEUROLOGICAL: Pupils equal. Cranial nerves grossly intact. Power and sensation grossly intact. INVESTIGATIONS: White count 9.5, hemoglobin 12.8, repeat was 10.8, platelets 358,000. Potassium 4.4. BUN and creatinine normal. ASSESSMENT: 1. Recurrent bouts of hematemesis and vomiting blood. The patient's prior EGD has shown esophagitis, yet again with the same presentation. Pending EGD this afternoon. 2. Morbid obesity BMI 49.4. 3. Chronic esophagitis. 4. Gastroesophageal reflux disease. 5. Bipolar disorder. PLAN: The patient was scheduled for EGD this afternoon. The results have come back showing some gastritis of the antrum and the body, not otherwise. Home medications are continued. Patient is put on proton pump inhibitor. Initially patient was getting IV saline. Care was discussed with the patient. Dr. Melissa from GI was consulted. MMODL / IJN: [id number] /
[2018-05-08] MEDS: PANTOPRAZOLE 40 MG TABLET PO SCH (21:37)
[2018-05-09] MEDS: SODIUM CHLORIDE 0.9% 1,000 ML IV SCH ×2 (04:07→15:30)
[2018-05-09] MEDS: DICYCLOMINE 20 MG TAB PO SCH ×3 (08:27→17:25)
[2018-05-09] MEDS: PANTOPRAZOLE 40 MG TABLET PO SCH ×2 (08:27→17:25)
[2018-05-09] MEDS: GABAPENTIN 400 MG CAP PO SCH ×2 (08:27→16:45)
[2018-05-09] MEDS: PANTOPRAZOLE 40 MG/10 ML VIAL IV SCH (08:29)
[2018-05-09] MEDS: ONDANSETRON 4 MG/2 ML VIAL IVP PRN (08:53)
[2018-05-09 09:18] VITALS: RESP 16
[2018-05-09 15:38] VITALS: BP 92/57; PULSE 104; TEMP 98.7
--- NOTE | 2018-05-09 18:18 | P.PN ---
Subjective Progress Note Date: 05/09/18 Principal diagnosis: Hematemesis Patient seen lying in bed, report 1 episode of vomiting yesterday. No further vomiting today. As tolerated diet. No abdominal pain. Objective - Vital Signs Vital signs: Vital Signs Temp 98.7 F 05/09/18 14:01 Pulse 104 H 05/09/18 14:01 Resp 16 05/09/18 15:31 BP 92/57 05/09/18 14:01 Pulse Ox 99 05/09/18 14:01 Intake & Output 05/08/18 05/09/18 05/09/18 18:59 06:59 18:59 Intake Total 1740 900 590 Balance 1740 900 590 Weight 125.5 kg Intake: IV 100 Oral 1640 900 590 Other: Voiding Method Toilet Toilet # Voids 1 1 1 - Exam On physical examination, patient appears comfortable in no apparent distress. HEAD: Normocephalic, atraumatic. EYES: No scleral icterus. No conjunctival injection. MOUTH: No lesions, tongue midline. NECK: Trachea midline, no gross abnormalities. CHEST: Clear to auscultation with no wheezing or rhonchi appreciated. HEART: Regular rate and rhythm. ABDOMEN: Soft, obese. Bowel sounds are positive. No organomegaly. No guarding or rigidity. EXTREMITIES: No pedal edema. SKIN: No rashes, no jaundice. NEUROLOGIC: Alert and oriented x3. No focal deficits. - Labs CBC & Chem 7: 05/08/18 08:15 05/08/18 08:15 Assessment and Plan (1) Hematemesis with nausea Narrative/Plan: Patient presenting with complaints of vomiting and hematemesis. The patient had EGD performed which was significant only for gastritis and no source of GI bleeding. It is likely that the patient had a Martine-Guevara tear in the setting of retching and vomiting. Her hemoglobin has remained stable today with a hemoglobin found to be 10.8 from 11.2 previously. She has tolerated her diet. Current Visit: Yes Status: Acute Code(s): K92.0 - HEMATEMESIS SNOMED Code( s): 8997771 Plan: Supportive care Okay for diet Monitor for signs or symptoms of GI bleed Continue PPI therapy Okay for discharge from GI standpoint Thank you for allowing us to participate in the care of this patient, the GI service will stand by, please call us back with any questions or concerns
--- NOTE | 2018-05-10 07:48 | DS ---
DISCHARGE SUMMARY DATE OF ADMISSION: May 07, 2018. DATE OF DISCHARGE: May 09, 2018. FINAL DIAGNOSES: 1. Hematemesis, likely Martine-Guevara tear. 2. Morbid obesity BMI 49.4. 3. Chronic esophagitis. 4. Gastroesophageal reflux disease. 5. Bipolar disorder. HOSPITAL COURSE: This patient presented with vomiting blood for 2 to 3 days. EGD essentially unremarkable, felt to be possibly could be Martine-Guevara tear. The patient is doing well. Tolerating a diet. Okay to be discharged by Gastroenterology. CONSULTATION: Dr. Melissa from Gastroenterology. EXAMINATION: Temperature 98.7, pulse 104, respiratory 18, blood pressure 92/57. ABDOMEN: Soft, nontender. INVESTIGATIONS: Hemoglobin 10.8. DISCHARGE MEDICATIONS: 1. Abilify 50 mg q.h.s. 2. Ativan 1 mg p.o. t.i.d. p.r.n. 3. Elavil 10 mg q.h.s. 4. Protonix 40 mg b.i.d. 5. Pravachol 20 mg at bedtime. 6. Tylenol 650 mg q.6h p.r.n. 7. Zofran 4 mg q.8h p.r.n. 8. Neurontin 400 mg p.o. t.i.d. 9. Effexor XR 75 mg q.h.s. 10.Bentyl 20 mg p.o. q.i.d. FOLLOWUP: Follow up with Dr. Keenan in 1 week. Follow up with Dr. Melissa in [address] Keenan. MMFÉLIXL / ENRIQUEN: [id number] /
== END 2018-05-09 18:48 | disposition home or self-care (01) ==
LOC: EC 18:49 → 4MS4W 22:56
PROVIDERS: ADMIT Hospitalist; ATTEND Hospitalist
DX: K92.0 Hematemesis (principal); E66.01 Morbid (severe) obesity due to excess calories; Z68.42 Body mass index [BMI] 45.0-49.9, adult; K21.0 Gastro-esophageal reflux disease with esophagitis; F31.9 Bipolar disorder, unspecified; F43.10 Post-traumatic stress disorder, unspecified; Z79.899 Other long term (current) drug therapy; F31.30 Bipolar disorder, current episode depressed, mild or moderate severity, unspecified; F41.9 Anxiety disorder, unspecified; D62 Acute posthemorrhagic anemia; K29.60 Other gastritis without bleeding; K28.9 Gastrojejunal ulcer, unspecified as acute or chronic, without hemorrhage or perforation; Z87.442 Personal history of urinary calculi; Z90.49 Acquired absence of other specified parts of digestive tract; Z83.3 Family history of diabetes mellitus; Z82.49 Family history of ischemic heart disease and other diseases of the circulatory system
CPT/HCPCS: 96376; 96361; 96365; 96366; 96375; 99285; 36415; 88305; 80053; 80048; 82150; 83690; 85025; 85027; 81001; 81025; 74022; 43239; G0378 ×3; J2270; J2405 ×3; J2001; J0131; J2704; C9113 ×3

== ENCOUNTER 2018-07-03 00:32 | Observation (INO) | payer OTHER ==
[2018-07-03] MEDS ORDERED: ONDANSETRON 4 MG/2 ML VIAL IVP STA (01:24)
[2018-07-03] MEDS ORDERED: MORPHINE SULFATE 4 MG/ML SYRINGE IV STA (01:24)
[2018-07-03] MEDS ORDERED: SODIUM CHLORIDE 0.9% 1,000 ML IV STA (01:24)
[2018-07-03 01:38] LABS: Basophils # (A) 0.1 k/uL (0-0.2); Basophils % (A) 1 %; Eosinophils # (A) 0.7 k/uL (0-0.7); Eosinophils % (A) 5 %; HCT 39.5 % (34.0-46.0); HGB 12.6 gm/dL (11.4-16.0); Hypochromasia Slight; Lymphocytes # (A) 3.2 k/uL (1.0-4.8); Lymphocytes % (A) 26 %; MCH 25.1 pg (25.0-35.0); MCHC 31.8 g/dL (31.0-37.0); MCV 78.9 fL (80.0-100.0); Mean Platelet Volume 6.9; Monocytes # (A) 0.6 k/uL (0-1.0); Monocytes % (A) 5 %; Neutrophils # (A) 7.9 k/uL (1.3-7.7); Neutrophils % (A) 63 %; Platelet Count 328 k/uL (150-450); RBC 5.01 m/uL (3.80-5.40); RDW 15.1 % (11.5-15.5); WBC 12.6 k/uL (3.8-10.6)
[2018-07-03 01:52] LABS: ALT 35 U/L (9-52); AST 39 U/L (14-36); Albumin 3.8 g/dL (3.5-5.0); Alkaline Phosphatase 135 U/L (38-126); Amylase 42 U/L (30-110); Anion Gap 8 mmol/L; Blood Urea Nitrogen 12 mg/dL (7-17); Calcium 9.2 mg/dL (8.4-10.2); Carbon Dioxide 22 mmol/L (22-30); Chloride 111 mmol/L (98-107); Glucose 200 mg/dL (74-99); Lipase 120 U/L (23-300); Magnesium 1.8 mg/dL (1.6-2.3); Sodium 141 mmol/L (137-145); Total Bilirubin 0.7 mg/dL (0.2-1.3)
[2018-07-03 01:54] LABS: D-Dimer 0.31 mg/L FEU (<0.60); INR 0.9 (<1.2); Partial Thromboplastin Time 22.3 sec (22.0-30.0); Prothrombin Time 9.6 sec (9.0-12.0)
[2018-07-03 01:55] LABS: Potassium 4.3 mmol/L (3.5-5.1)
--- NOTE | 2018-07-03 02:09 | ED ---
Chest Pain HPI - General Chief Complaint: Chest Pain Stated Complaint: Chest Pain, Arm Numbness Time Seen by Provider: 07/03/18 00:52 Source: patient Mode of arrival: wheelchair Limitations: no limitations - History of Present Illness Initial Comments: 28-year-old female patient presents to the emergency department today for evaluation of chest, abdomen, and back pain. Patient states this started around 7:30 this evening after eating pizza. States that the pain has been constant since. States it is causing her to have shortness of breath. States she is feeling nauseated but has not vomited. She states she is having some numbness and tingling to the left arm with this. Patient states that she has been having similar symptoms on and off for the last week. Patient does have history of cholecystectomy. She has had her tubes tied does have nexplanon implant and denies chance of . She denies fevers or chills. Denies any dizziness or weakness. Patient denies any recent rash, diarrhea, constipation, back pain, numbness, tingling, dizziness, weakness, hematuria, dysuria, urinary urgency, urinary frequency, headache, visual changes, or any other complaints. - Related Data Home Medications Medication Instructions Recorded Confirmed RX: ARIPiprazole [Abilify] 15 mg PO HS 06/21/17 05/07/18 RX: LORazepam [Ativan] 1 mg PO TID PRN 06/21/17 05/07/18 RX: Amitriptyline HCl [Elavil] 10 mg PO HS 01/20/18 05/07/18 RX: Pantoprazole [Protonix] 40 mg PO BID 01/20/18 05/07/18 RX: Pravastatin Sodium [Pravachol] 20 mg PO HS 01/20/18 05/07/18 RX: Gabapentin [Neurontin] 400 mg PO TID 02/13/18 05/07/18 RX: Venlafaxine HCl [Effexor XR] 75 mg PO HS 03/13/18 05/07/18 RX: Dicyclomine [Bentyl] 20 mg PO QID 05/07/18 05/07/18 Previous Rx's Medication Instructions Recorded RX: Acetaminophen Tab [Tylenol] 650 mg PO Q6HR PRN tab 01/22/18 RX: Ondansetron Odt [Zofran ODT] 4 mg PO Q8HR PRN #20 tab 01/25/18 Allergies Allergy/AdvReac Type Severity Reaction Status Date / Time No Known Allergies Allergy Verified 07/03/18 00:49 Review of Systems ROS Statement: Those systems with pertinent positive or pertinent negative responses have been documented in the HPI. ROS Other: All systems not noted in ROS Statement are negative. EKG Findings - EKG Comments: EKG Findings:: EKG interpreted by me at 0100 shows sinus tachycardia with a ventricular rate of 132, MS interval 132, QRS duration 80, QT 298, QTC 441. No evidence of ST elevation or depression. Past Medical History Past Medical History: GERD/Reflux, GI Bleed Additional Past Medical History / Comment(s): gallstones, kidney stones, D&C History of Any Multi-Drug Resistant Organisms: None Reported Past Surgical History: Section, Cholecystectomy, Tubal Ligation Additional Past Surgical History / Comment(s): neck biopsy (lymph node ) 4x Past Anesthesia/Blood Transfusion Reactions: No Reported Reaction Past Psychological History: Anxiety, Bipolar, Depression, PTSD Smoking Status: Never smoker Past Alcohol Use History: None Reported Past Drug Use History: None Reported - Past Family History Mother Family Medical History: Diabetes Mellitus, Hyperlipidemia, Hypertension, Myocardial Infarction ([place]) General Exam Limitations: no limitations General appearance: alert, in no apparent distress, other (Physical well-developed, well-nourished adult female patient in no acute distress. Vital signs upon presentation are temperature 99.9F oral, pulse 142, respirations 20, blood pressure 115/71, pulse ox 99% on room air.) Eye exam: Present: normal appearance, PERRL, EOMI. Absent: scleral icterus, conjunctival injection, periorbital swelling ENT exam: Present: normal exam, normal oropharynx, mucous membranes moist Respiratory exam: Present: normal lung sounds bilaterally. Absent: respiratory distress, wheezes, rales, rhonchi, stridor Cardiovascular Exam: Present: normal rhythm, tachycardia, normal heart sounds. Absent: systolic murmur, diastolic murmur, rubs, gallop, clicks GI/Abdominal exam: Present: soft, normal bowel sounds. Absent: distended, tenderness, guarding, rebound, rigid Neurological exam: Present: alert Psychiatric exam: Present: normal affect, normal mood Skin exam: Present: warm, dry, intact, normal color. Absent: rash Course Vital Signs 07/03/18 07/03/18 07/03/18 00:46 00:57 01:00 Temperature 99.0 F Pulse Rate 142 H 137 H 138 H Respiratory 20 Rate Blood Pressure 115/71 O2 Sat by Pulse 99 99 Oximetry 07/03/18 07/03/18 07/03/18 01:10 01:20 01:34 Temperature Pulse Rate 134 H 129 H 137 H Respiratory Rate Blood Pressure O2 Sat by Pulse 99 99 Oximetry 07/03/18 07/03/18 07/03/18 01:40 02:10 02:20 Temperature Pulse Rate 130 H 116 H 124 H Respiratory Rate Blood Pressure 108/61 110/67 108/87 O2 Sat by Pulse 99 97 98 Oximetry 07/03/18 07/03/18 07/03/18 02:30 02:40 02:50 Temperature Pulse Rate 125 H 115 H Respiratory Rate Blood Pressure 108/87 120/73 117/72 O2 Sat by Pulse 97 95 Oximetry 07/03/18 07/03/18 07/03/18 03:10 03:20 03:50 Temperature Pulse Rate 124 H 121 H 120 H Respiratory Rate Blood Pressure 96/82 103/79 130/77 O2 Sat by Pulse 98 96 97 Oximetry 07/03/18 04:10 Temperature Pulse Rate 128 H Respiratory Rate Blood Pressure 101/79 O2 Sat by Pulse 97 Oximetry Chest Pain MDM - [facility] RADIOLOG[facility]: Two-view x-ray of the chest is obtained. Report was reviewed in its entirety. Impression by Dr. Salas shows no acute abnormality. CT of the thoracic, abdominal, pelvic aorta was obtained with contrast. Report was reviewed in its entirety. Impression by Dr. Salas shows normal chest CTA. No evidence for aortic dissection. No evidence for infiltrates or effusions. Unremarkable CTA of the abdomen. MDM: 28-year-old female patient presents the emergency department today for complaints of chest, back, and abdominal pain. Patient was quite tachycardic upon arrival with heart rates in the 130s and 140s. Labs reviewed and are relatively unremarkable. Negative d-dimer. Two-view x-ray of the chest was obtained and showed no acute pulmonary process. CT angiography of the chest, abdomen, and pelvis showed no evidence of dissection pulmonary, or other abnormalities. She was given pain medication here in the emergency department, upon reevaluation continues to report pain to the chest and numbness of the left arm. Patient was then given Ativan, heart rate did not improve, symptoms did not improve. My attending Dr. Rai was in to evaluate the patient. Given persistence of symptoms we will admit for observation, cardiology evaluation, and monitoring. Disposition Clinical Impression: Chest pain, Tachycardia Disposition: ADMITTED IP TO THIS [facility] Condition: Serious Referrals: Olvin Keenan MD [Primary Care Provider] - 1-2 days Decision to Admit Reason: Admit from EC Decision Date: 07/03/18 Decision Time: 04:42
--- NOTE | 2018-07-03 02:13 | XR ---
EXAM: XR Chest, 2 Views CLINICAL HISTORY: Chest Pain TECHNIQUE: Frontal and lateral views of the chest. COMPARISON: 05/07/18 FINDINGS: Lungs: Unremarkable. No consolidation. Pleural space: Unremarkable. No pneumothorax. Heart: Unremarkable. No cardiomegaly. Mediastinum: Unremarkable. Bones/joints: Unremarkable. IMPRESSION: No acute abnormality
[2018-07-03 02:58] LABS: Amorphous Sediment,Urine Moderate /hpf; Appearance,Urine Turbid (Clear); Bacteria,Urine Moderate /hpf; Bilirubin,Urine Negative (Negative); Blood,Urine Moderate (Negative); Color,Urine Yellow; Glucose,Urine (UA) Negative (Negative); Ketones,Urine Negative (Negative); Leukocyte Esterase,Urine Moderate (Negative); Mucus,Urine Occasional /hpf; Nitrite,Urine Negative (Negative); PH, Urine 7.5 (5.0-8.0); Protein,Urine Trace (Negative); RBC,Urine 24 /hpf (0-5); Specific Gravity,Urine 1.017 (1.001-1.035); Squamous Epithelial Cell,Urine 18 /hpf (0-4); WBC,Urine 44 /hpf (0-5)
[2018-07-03] MEDS ORDERED: LORazepam 2 MG/ML INJ IV STA (03:16)
--- NOTE | 2018-07-03 04:18 | CT ---
EXAM: CT Angiography Chest Without And With Intravenous Contrast CLINICAL HISTORY: Reason: Pain TECHNIQUE: Axial computed tomographic angiography images of the chest without and with intravenous contrast using pulmonary embolism protocol. CTDI is 17. 1 mGy and DLP 988.2 mGy-cm. This CT exam was performed using one or more of the following dose reduction techniques: automated exposure control, adjustment of the mA and/or kV according to patient size, and/or use of iterative reconstruction technique. 3D and MIP reconstructed images were created and reviewed. Coronal and sagittal reformatted images were created and reviewed. COMPARISON: No relevant prior studies available. FINDINGS: Pulmonary arteries: Unremarkable. No pulmonary embolism. Aorta: No acute findings. No thoracic aortic aneurysm. Lungs: Unremarkable. No mass. No consolidation. Pleural space: Unremarkable. No significant effusion. No pneumothorax. Heart: Unremarkable. No cardiomegaly. No significant pericardial effusion. No evidence of RV dysfunction. Bones/joints: No acute fracture. No dislocation. Soft tissues: Unremarkable. Lymph nodes: Unremarkable. No enlarged lymph nodes. IMPRESSION: Normal chest CTA. No evidence for aortic dissection. No evidence for infiltrates or effusions. EXAM: CT Angiography Abdomen Without And With Intravenous Contrast, Without And With Intra-Articular Contrast CLINICAL HISTORY: Pain TECHNIQUE: Axial computed tomographic angiography images of the abdomen without and with intravenous contrast, without and with intra-articular contrast. CTDI is 17.9 mGy and DLP is 983.8 mGy-cm. This CT exam was performed using one or more of the following dose reduction techniques: automated exposure control, adjustment of the mA and/or kV according to patient size, and/or use of iterative reconstruction technique. 3D and MIP reconstructed images were created and reviewed. Coronal and sagittal reformatted images were created and reviewed. COMPARISON: No relevant prior studies available. FINDINGS: Aorta: No acute findings. No abdominal aortic aneurysm. No dissection. Celiac trunk and mesenteric arteries: No acute findings. No occlusion or significant stenosis. Renal arteries: No acute findings. No occlusion or significant stenosis. Lung bases: Unremarkable. No mass. No consolidation. Liver: Unremarkable. No mass. Gallbladder and bile ducts: Gallbladder surgically absent. No ductal dilation. Pancreas: Unremarkable. No ductal dilation. No mass. Spleen: Unremarkable. No splenomegaly. Adrenals: Unremarkable. No mass. Kidneys and ureters: Nonobstructing calyceal stone in the left and right kidney. No evidence for hydronephrosis No hydronephrosis. No solid mass. Stomach and bowel: Unremarkable. No obstruction. No mucosal thickening. Intraperitoneal space: Unremarkable. No significant fluid collection. No free air. Bones/joints: No acute fracture. No dislocation. Soft tissues: Unremarkable. No mass. Lymph nodes: Unremarkable. No enlarged lymph nodes. IMPRESSION: Unremarkable CTA of the abdomen
[2018-07-03] MEDS ORDERED: cefTRIAXone IN SWFI 1,000 MG/10 ML SYRINGE IVP STA (04:22)
[2018-07-03] MEDS ORDERED: NALOXONE 0.4 MG/ML 1 ML VIAL IV PRN (04:48)
[2018-07-03] MEDS ORDERED: ONDANSETRON 4 MG/2 ML VIAL IVP PRN (04:48)
[2018-07-03] MEDS: MORPHINE SULFATE 4 MG/ML SYRINGE IV PRN ×2 (06:43→11:37)
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
[2018-07-03 07:40] VITALS: RESP 18
[2018-07-03] MEDS: CEPHALEXIN 500 MG CAP PO SCH ×2 (08:06→15:07)
[2018-07-03] MEDS ORDERED: VERAPAMIL 80 MG TAB PO SCH (09:00)
[2018-07-03] MEDS ORDERED: METOPROLOL TARTRATE 12.5 MG TAB PO SCH (09:00)
--- NOTE | 2018-07-03 10:36 | ECHOF ---
Referral Reason:tachycardia MEASUREMENTS -------- HEIGHT: 157.5 cm WEIGHT: 129.7 kg BP: 114/69 RVIDd: 2.5 cm (< 3.3) IVSd: 1.2 cm (0.6 - 1.1) LVIDd: 4.0 cm (3.9 - 5.3) LVPWd: 1.2 cm (0.6 - 1.1) IVSs: 1.3 cm LVIDs: 3.2 cm LVPWs: 1.5 cm LA Diam: 3.6 cm (2.7 - 3.8) Ao Diam: 2.8 cm (2.0 - 3.7) AV Cusp: 1.8 cm (1.5 - 2.6) LA Diam: 3.3 cm (2.7 - 3.8) MV EXCURSION: 15.618 mm (> 18.000) MV EF SLOPE: 103 mm/s (70 - 150) EPSS: 0.8 cm MV E Scooby: 0.74 m/s MV DecT: 242 ms MV A Scooby: 1.16 m/s MV E/A Ratio: 0.64 RAP: 5.00 mmHg RVSP: 25.57 mmHg FINDINGS -------- Sinus rhythm. Morbid Obesity This was a techncally difficult study with suboptimal views, , Lumason utilized for enhancement of im ages. The left ventricular size is normal. There is mild concentric left ventricular hypertrophy. Overa ll left ventricular systolic function is normal with, an EF between 60 - 65 %. The right ventricle is normal in size. The left atrial size is normal. The right atrial size is normal. 5.0mg OF Lumason UTLIZED: 2 OR MORE WALL SEGMENTS NOT VISUALIZED. The aortic valve is trileaflet, and appears structurally normal. No aortic stenosis or regurgitation. Mild mitral regurgitation is present. Mild tricuspid regurgitation present. There is no evidence of pulmonary hypertension. The right v entricular systolic pressure, as measured by Doppler, is 25.57mmHg. There is no pulmonic regurgitation present. The aortic root size is normal. There is no pericardial effusion. CONCLUSIONS -------- 1. Morbid Obesity 2. This was a techncally difficult study with suboptimal views, , Lumason utilized for enhancement of images. 3. The left ventricular size is normal. 4. There is mild concentric left ventricular hypertrophy. 5. Overall left ventricular systolic function is normal with, an EF between 60 - 65 %. 6. The right ventricle is normal in size. 7. The left atrial size is normal. 8. The right atrial size is normal. 9. 5.0mg OF Lumason UTLIZED: 2 OR MORE WALL SEGMENTS NOT VISUALIZED. 10. The aortic valve is trileaflet, and appears structurally normal. No aortic stenosis or regurgitat ion. 11. Mild mitral regurgitation is present. 12. Mild tricuspid regurgitation present. 13. There is no evidence of pulmonary hypertension. 14. The right ventricular systolic pressure, as measured by Doppler, is 25.57mmHg. 15. There is no pulmonic regurgitation present. 16. The aortic root size is normal. 17. There is no pericardial effusion. HEARING CARE PROFESSIONAL: Nasrin Reynolds RDCS
[2018-07-03] MEDS ORDERED: ACETAMINOPHEN TAB 325 MG TAB PO PRN (10:59)
[2018-07-03] MEDS ORDERED: ONDANSETRON ODT 4 MG TAB PO PRN (10:59)
[2018-07-03] MEDS ORDERED: SUMAtriptan SUCCINATE 50 MG TAB PO PRN (10:59)
[2018-07-03] MEDS ORDERED: VENLAFAXINE HCL 50 MG TAB PO SCH (11:15)
[2018-07-03] MEDS ORDERED: acetaZOLAMIDE 250 MG TAB PO SCH (11:15)
[2018-07-03] MEDS ORDERED: AMITRIPTYLINE HCL 10 MG TAB PO SCH (11:15)
[2018-07-03] MEDS ORDERED: DICYCLOMINE 20 MG TAB PO SCH (13:00)
[2018-07-03] MEDS ORDERED: GABAPENTIN 300 MG CAP PO SCH (16:00)
[2018-07-03 16:01] VITALS: BP 110/75; PULSE 101; TEMP 98.5
[2018-07-03] MEDS ORDERED: PANTOPRAZOLE 40 MG TABLET PO SCH (17:30)
[2018-07-03] MEDS ORDERED: MELATONIN 5 MG TABLET PO SCH (21:00)
[2018-07-03] MEDS ORDERED: ARIPiprazole 15 MG TAB PO SCH (21:00)
[2018-07-03] MEDS ORDERED: LORazepam 1 MG TAB PO SCH (21:00)
[2018-07-03] MEDS ORDERED: PRAVASTATIN SODIUM 20 MG TAB PO SCH (21:00)
[2018-07-03 23:34] LABS: Hemoglobin A1C 6.1 % (4.0-6.0)
--- NOTE | 2018-07-04 09:20 | DS ---
DISCHARGE SUMMARY HISTORY PHYSICAL AND DISCHARGE SUMMARY: DATE OF ADMISSION: July 03, 2018. DATE OF DISCHARGE: July 03, 2018. FINAL DIAGNOSIS: Chest pain, probably musculoskeletal. HISTORY OF PRESENTING COMPLAINT: This is a 28-year-old patient known to me from prior admission. The patient follows with Dr. Keenan. Chronic stable medical conditions include bipolar disorder, PTSD, obesity. The patient was here in April of this year. Had hematemesis, which is Martine-Guevara tear. The patient also got chronic esophagitis and GERD. The patient presents with one week of symptoms including pressure in the chest, sometimes going to the back, sometimes going to the left arm. No nausea, vomiting. No fever or chills. No cough. It is worse in certain positions, especially lifting arm. She was concerned with a cardiac component and decided to come into the hospital. REVIEW OF SYSTEMS: CONSTITUTIONAL: None. HEENT none. RESPIRATORY: None. GASTROINTESTINAL: None. GENITOURINARY: None. MUSCULOSKELETAL: As above. DERMATOLOGICAL, HEMATOLOGIC, LYMPHATIC: None. PSYCHIATRY: Anxious. NEUROLOGICAL: None. PAST MEDICAL HISTORY: GERD, esophagitis, kidney stones, bipolar, PTSD. PAST SURGICAL HISTORY: , cholecystectomy, tubal ligation. SOCIAL HISTORY: No smoking. No recreational drugs. Lives with her mother. Has 4 children. Not employed. No alcohol. FAMILY HISTORY: Diabetes, hyperlipidemia, hypertension and myocardial infarction. HOME MEDICATIONS: 1. Diamox 250 mg b.i.d. 2. Calan 80 mg b.i.d. 3. Effexor 50 mg b.i.d. 4. Imitrex 50 mg b.i.d. p.r.n. 5. Pravachol 20 mg at bedtime. 6. Protonix 40 mg b.i.d. 7. Zofran 4 mg q.8h p.r.n. 8. Melatonin 10 mg q.h.s. 9. Ativan 1 mg q.h.s. 10.Gabapentin 600 mg t.i.d. 11.Bentyl 20 mg p.o. q.i.d. 12.Elavil 10 mg p.o. b.i.d. 13.Abilify 50 mg q.h.s. 14.Keflex 500 mg q.i.d. 12 capsules. ALLERGIES: None. PHYSICAL EXAMINATION: VITAL SIGNS: On examination: Temperature 98.4, pulse 101, respiration 18, blood pressure 110/75, pulse ox 96% on room air. GENERAL APPEARANCE: Well built, BMI 52.3. Sitting up. Comfortable. EYES: Pupils equal. Conjunctivae normal. HEENT: External appearance of nose and ears normal. Oral cavity normal. NECK: JVD not raised. Mass not palpable. RESPIRATORY: Effort normal. LUNGS: Fair entry. CARDIOVASCULAR: 1st and 2nd sounds normal. ABDOMEN: Soft, nontender. Liver and spleen not palpable. LYMPHATIC: No lymph nodes palpable in the neck or axilla. PSYCHIATRY: Alert and oriented x3. Mood and affect slightly anxious-appearing. NEUROLOGICAL: Pupils equal. Cranial nerves grossly intact. Power and sensation grossly intact. Initially when patient raises her hand, she does feels left-sided chest pain. INVESTIGATIONS: White count 12.6, hemoglobin 12.6, potassium 4.3. BUN creatinine is normal. Troponin times two negative. TSH normal. Chest x-ray film personally reviewed by me shows lung green to be clear. EKG tracing personally reviewed by me shows some sinus tachycardia, thoraco auto CT scan negative. 2D echocardiogram, EF 60-65 percent. FINAL DIAGNOSES: 1. Anterior chest wall pain possibly musculoskeletal. 2. Morbid obesity BMI greater than 50. 3. Chronic esophagitis. 4. Gastroesophageal reflux disease. 5. Bipolar disorder. 6. Acute urinary tract infection with cystitis. PLAN: Patient is seen by Cardiology. Home medications are resumed. The patient's symptoms of feeling better, told to use K-pad. Cardiology did also okay the patient to go home. The patient to followup with Dr. Turpin on July 21, 2018. Follow up with Dr. Keenan in three days. This is both a history physical and discharge summary. Copy to Dr. Keenan. MMODL / IJN: [id number] /
== END 2018-07-03 16:50 | disposition home or self-care (01) ==
LOC: EC 00:32 → 1SOBS 04:42
PROVIDERS: ADMIT Hospitalist; ATTEND Hospitalist
DX: R07.89 Other chest pain (principal); R00.0 Tachycardia, unspecified; R20.0 Anesthesia of skin; M54.9 Dorsalgia, unspecified; R10.9 Unspecified abdominal pain; R06.02 Shortness of breath; R20.2 Paresthesia of skin; R11.0 Nausea; E66.01 Morbid (severe) obesity due to excess calories; Z68.43 Body mass index [BMI] 50.0-59.9, adult; K21.0 Gastro-esophageal reflux disease with esophagitis; G43.909 Migraine, unspecified, not intractable, without status migrainosus; M79.7 Fibromyalgia; K58.9 Irritable bowel syndrome, unspecified; E78.5 Hyperlipidemia, unspecified; F31.9 Bipolar disorder, unspecified; F41.9 Anxiety disorder, unspecified; F60.3 Borderline personality disorder; F43.10 Post-traumatic stress disorder, unspecified; N30.90 Cystitis, unspecified without hematuria; Z79.899 Other long term (current) drug therapy; Z90.49 Acquired absence of other specified parts of digestive tract; Z87.442 Personal history of urinary calculi; Z97.5 Presence of (intrauterine) contraceptive device; Z87.19 Personal history of other diseases of the digestive system; Z82.49 Family history of ischemic heart disease and other diseases of the circulatory system; Z83.3 Family history of diabetes mellitus
CPT/HCPCS: 96376; 96374; 96375; 99285; 36415; 93005; 85379; 80053; 84443; 82150; 83605; 83690; 83735; 84484; 85025; 85610; 85730; 81001; 87086; 83036; 71046; 71275; 74174; G0378; C8929; J2060; J2270; J2405; J0696; Q9950; Q9967; 93306

== ENCOUNTER 2018-07-15 20:04 | Emergency (ER) | payer OTHER ==
[2018-07-15 20:14] VITALS: TEMP 99
[2018-07-15] MEDS ORDERED: KETOROLAC 30 MG/ML 1 ML VIAL IVP STA (20:33)
[2018-07-15] MEDS ORDERED: MORPHINE SULFATE 2 MG/ML SYRINGE IVP STA (20:33)
[2018-07-15] MEDS ORDERED: ONDANSETRON 4 MG/2 ML VIAL IVP STA (20:33)
[2018-07-15] MEDS ORDERED: PANTOPRAZOLE 40 MG/10 ML VIAL IVP STA (20:33)
[2018-07-15] MEDS ORDERED: SODIUM CHLORIDE 0.9% 1,000 ML IV STA (20:33)
--- NOTE | 2018-07-15 20:41 | ED ---
General Adult HPI - General Source: patient, RN notes reviewed, old records reviewed Mode of arrival: ambulatory Limitations: no limitations <Alee Barksdale - Last Filed: 07/15/18 23:38> <Maite Bruner - Last Filed: 07/16/18 01:39> - General Chief complaint: Nausea/Vomiting/Diarrhea Stated complaint: Abd and pelvic pain,vomiting blood Time Seen by Provider: 07/15/18 20:16 - History of Present Illness Initial comments: 28-year-old female presents emergency department today with nausea and vomiting and complains of abdominal and pelvic pain. Symptoms started today. Patient denies vaginal bleeding or dysuria. Surgical history includes for C-sections and upper endoscopies. Patient states that she's been admitted recently for chest pain and upper GI bleeding. Patient has had no blood in her vomit today. She denies any changes in stools. (Alee Barksdale) - Related Data Home Medications Medication Instructions Recorded Confirmed ARIPiprazole [Abilify] 15 mg PO HS 06/21/17 07/15/18 LORazepam [Ativan] 1 mg PO HS 06/21/17 07/15/18 Amitriptyline HCl [Elavil] 10 mg PO BID 01/20/18 07/15/18 Pantoprazole [Protonix] 40 mg PO BID 01/20/18 07/15/18 Pravastatin Sodium [Pravachol] 20 mg PO HS 01/20/18 07/15/18 Dicyclomine [Bentyl] 20 mg PO QID 05/07/18 07/15/18 Gabapentin 600 mg PO TID 07/03/18 07/15/18 Melatonin 10 mg PO HS 07/03/18 07/15/18 SUMAtriptan SUCCINATE [Imitrex] 50 mg PO BID PRN 07/03/18 07/15/18 Venlafaxine HCl [Effexor] 50 mg PO DAILY 07/03/18 07/15/18 Verapamil HCl [Calan] 80 mg PO BID 07/03/18 07/15/18 acetaZOLAMIDE [Diamox] 250 mg PO BID 07/03/18 07/15/18 Previous Rx's Medication Instructions Recorded Acetaminophen Tab [Tylenol] 650 mg PO Q6HR PRN tab 01/22/18 Ondansetron Odt [Zofran ODT] 4 mg PO Q8HR PRN #20 tab 01/25/18 Dicyclomine [Bentyl] 20 mg PO QID #20 tablet 07/15/18 Ondansetron Odt [Zofran Odt] 4 mg PO Q8HR PRN #12 tab 07/15/18 Allergies Allergy/AdvReac Type Severity Reaction Status Date / Time No Known Allergies Allergy Verified 07/15/18 20:34 Review of Systems ROS Other: All systems not noted in ROS Statement are negative. <Alee Barksdale - Last Filed: 07/15/18 23:38> ROS Other: All systems not noted in ROS Statement are negative. <Maite Bruner - Last Filed: 07/16/18 01:39> ROS Statement: Those systems with pertinent positive or pertinent negative responses have been documented in the HPI. Past Medical History Past Medical History: Fibromyalgia, GERD/Reflux, GI Bleed Additional Past Medical History / Comment(s): gallstones, kidney stones, D&C, IBS, migraines History of Any Multi-Drug Resistant Organisms: None Reported Past Surgical History: Section, Cholecystectomy, Tubal Ligation Additional Past Surgical History / Comment(s): neck biopsy (lymph node ) 4x c sect Past Anesthesia/Blood Transfusion Reactions: No Reported Reaction Past Psychological History: Anxiety, Bipolar, Depression, PTSD Smoking Status: Never smoker Past Alcohol Use History: None Reported Past Drug Use History: None Reported - Past Family History Mother Family Medical History: Diabetes Mellitus, Hyperlipidemia, Hypertension, Myocardial Infarction ([place]) Additional Family Medical History / Comment(s): [place] X 3 Father Family Medical History: Congestive Heart Failure (CHF), Hyperlipidemia, Hyperten jeremie, Myocardial Infarction ([place]) Additional Family Medical History / Comment(s): mi x 3 Son(s) Family Medical History: No Reported History <Alee Barksdale - Last Filed: 07/15/18 23:38> General Exam Limitations: no limitations General appearance: alert, in no apparent distress Head exam: Present: atraumatic, normocephalic, normal inspection Eye exam: Present: normal appearance, PERRL, EOMI. Absent: scleral icterus, conjunctival injection, periorbital swelling ENT exam: Present: normal oropharynx. Absent: normal exam Neck exam: Present: normal inspection. Absent: tenderness, meningismus, lymphadenopathy Respiratory exam: Present: normal lung sounds bilaterally. Absent: respiratory distress, wheezes, rales, rhonchi, stridor Cardiovascular Exam: Present: regular rate, normal rhythm, normal heart sounds. Absent: systolic murmur, diastolic murmur, rubs, gallop, clicks GI/Abdominal exam: Present: tenderness (Left lower quadrant tenderness), normal bowel sounds. Absent: soft, distended, guarding, rebound, rigid Extremities exam: Present: normal inspection, full ROM, normal capillary refill. Absent: tenderness, pedal edema, joint swelling, calf tenderness Back exam: Present: normal inspection Neurological exam: Present: alert, oriented X3, CN II-XII intact Psychiatric exam: Present: normal affect, normal mood Skin exam: Present: warm, dry, intact, normal color. Absent: rash <Alee Barksdale - Last Filed: 07/15/18 23:38> - General Exam Comments Initial Comments: Well-appearing 28-year-old female. Alert and oriented. No distress. (Alee Barksdale) Course Vital Signs 07/15/18 07/15/18 20:11 22:55 Temperature 99.0 F 99.0 F Pulse Rate 125 H 99 Respiratory 20 18 Rate Blood Pressure 98/73 127/63 O2 Sat by Pulse 99 98 Oximetry Medical Decision Making - Lab Data Result diagrams: 07/15/18 20:30 07/15/18 20:30 - Radiology Data Radiology results: report reviewed <Alee Barksdale - Last Filed: 07/15/18 23:38> - Lab Data Result diagrams: 07/15/18 20:30 07/15/18 20:30 <Maite Bruner - Last Filed: 07/16/18 01:39> - Medical Decision Making Patient is a 28-year-old female presents emergency Department today with complaints of pelvic pain. Patient states that his left-sided abdominal pain returns or pelvis. Patient's labwork was reviewed. Blood work was unremarkable. Urinalysis is positive for hematuria. No sign of infection. Discussed concern for kidney stone. She is not currently on her menstrual cycle or bleeding. Patient was given IV pain medication nausea medication. On reevaluation she is resting comfortably in bed. Patient's CT abdomen and pelvis without contrast was completed. There is evidence of enteritis and diarrhea noted within bowels. Patient was given IV and Bentyl. Patient CT shows no evidence of obstructing stones. Patient informed of results. Discussed with discharge the Patient several prescription for Bentyl diarrhea. Discussed that she can follow-up with her PCP. All questions were answered and return parameters were discussed. (Alee Barksdale) I was available for consultation in the emergency department. The history and physical exam were done by the midlevel provider. I was consulted for this patient's care. I reviewed the case with the midlevel provider and based on their presentation of the patient, I agree with the assessment, medical decision making and plan of care as documented. (Maite Bruner) - Lab Data Lab Results 07/15/18 07/15/18 07/15/18 Range/Units 20:30 20:30 Unknown WBC 9.4 (3.8-10.6) k/uL RBC 5.61 H (3.80-5.40) m/uL Hgb 13.7 (11.4-16.0) gm/dL Hct 44.4 (34.0-46.0) % MCV 79.1 L (80.0-100.0) fL MCH 24.5 L (25.0-35.0) pg MCHC 30.9 L (31.0-37.0) g/dL RDW 15.0 (11.5-15.5) % Plt Count 356 (150-450) k/uL Neutrophils % 76 % Lymphocytes % 16 % Monocytes % 5 % Eosinophils % 2 % Basophils % 0 % Neutrophils # 7.1 (1.3-7.7) k/uL Lymphocytes # 1.5 (1.0-4.8) k/uL Monocytes # 0.4 (0-1.0) k/uL Eosinophils # 0.2 (0-0.7) k/uL Basophils # 0.0 (0-0.2) k/uL Hypochromasia Moderate Sodium 140 (137-145) mmol/L Potassium 3.9 (3.5-5.1) mmol/L Chloride 109 H (98-107) mmol/L Carbon Dioxide 18 L (22-30) mmol/L Anion Gap 13 mmol/L BUN 19 H (7-17) mg/dL Creatinine 0.75 (0.52-1.04) mg/dL Est GFR (CKD-EPI)AfAm >90 (>60 ml/min/1.73 sqM) Est GFR (CKD-EPI)NonAf >90 (>60 ml/min/1.73 sqM) Glucose 110 H (74-99) mg/dL Calcium 9.4 (8.4-10.2) mg/dL Total Bilirubin 1.0 (0.2-1.3) mg/dL AST 31 (14-36) U/L ALT 49 (9-52) U/L Alkaline Phosphatase 148 H (38-126) U/L Total Protein 7.1 (6.3-8.2) g/dL Albumin 4.0 (3.5-5.0) g/dL Amylase 34 (30-110) U/L Lipase 59 (23-300) U/L Urine Color Light Red Urine Appearance Cloudy H (Clear) Urine pH 6.0 (5.0-8.0) Ur Specific [place] 1.025 (1.001-1.035) Urine Protein 1+ H (Negative) Urine Glucose (UA) Negative (Negative) Urine Ketones Negative (Negative) Urine Blood Large H (Negative) Urine Nitrite Negative (Negative) Urine Bilirubin Negative (Negative) Urine Urobilinogen <2.0 (<2.0) mg/dL Ur Leukocyte Esterase Trace H (Negative) Urine RBC >182 H (0-5) /hpf Ur Squamous Epith Cells 2 (0-4) /hpf Urine Mucus Few H (None) /hpf - Radiology Data Large bowel fluid levels consistent with diarrhea. Old exam. No free air. No sign of obstruction. CT shows scattered small bowel fluid levels and lower abdomen and pelvis nonspecific may reflect ileus or enteritis. Scattered colonic fluid levels suggesting directly. No bowel obstruction. Fatty liver noted. Status post cholecystectomy. Small nonobstructing right renal calculus. (Alee Barksdale) Disposition Is patient prescribed a controlled substance at d/c from ED?: No Time of Disposition: 23:40 <Alee Barksdale - Last Filed: 07/15/18 23:38> <Maite Bruner - Last Filed: 07/16/18 01:39> Clinical Impression: Diarrhea, Hematuria, Abdominal pain Disposition: HOME SELF-CARE Condition: Good Instructions (If sedation given, give patient instructions): Hematuria (ED), Acute Abdominal Pain (ED) Additional Instructions: Patient advised to alternate Motrin and Tylenol. Use nausea medicine and Bentyl as needed. Patient should follow-up with her PCP tomorrow. Return to emergency department if any alarming signs or symptoms occur. Prescriptions: Dicyclomine [Bentyl] 20 mg PO QID #20 tablet Ondansetron Odt [Zofran Odt] 4 mg PO Q8HR PRN #12 tab PRN Reason: Nausea Referrals: Olvin Keenan MD [Primary Care Provider] - 1-2 days
[2018-07-15 21:12] LABS: Basophils % (A) 0 %; Eosinophils # (A) 0.2 k/uL (0-0.7); Eosinophils % (A) 2 %; HCT 44.4 % (34.0-46.0); HGB 13.7 gm/dL (11.4-16.0); Hypochromasia Moderate; Lymphocytes # (A) 1.5 k/uL (1.0-4.8); Lymphocytes % (A) 16 %; MCH 24.5 pg (25.0-35.0); MCHC 30.9 g/dL (31.0-37.0); MCV 79.1 fL (80.0-100.0); Mean Platelet Volume 6.2; Monocytes # (A) 0.4 k/uL (0-1.0); Monocytes % (A) 5 %; Neutrophils # (A) 7.1 k/uL (1.3-7.7); Neutrophils % (A) 76 %; Platelet Count 356 k/uL (150-450); RBC 5.61 m/uL (3.80-5.40); WBC 9.4 k/uL (3.8-10.6)
[2018-07-15 21:19] LABS: ALT 49 U/L (9-52); AST 31 U/L (14-36); Alkaline Phosphatase 148 U/L (38-126); Amylase 34 U/L (30-110); Anion Gap 13 mmol/L; Blood Urea Nitrogen 19 mg/dL (7-17); Calcium 9.4 mg/dL (8.4-10.2); Carbon Dioxide 18 mmol/L (22-30); Chloride 109 mmol/L (98-107); Glucose 110 mg/dL (74-99); Lipase 59 U/L (23-300); Potassium 3.9 mmol/L (3.5-5.1); Sodium 140 mmol/L (137-145); Total Protein 7.1 g/dL (6.3-8.2)
--- NOTE | 2018-07-15 21:30 | XR ---
EXAMINATION TYPE: XR KUB DATE OF EXAM: 07/15/2018 COMPARISON: 05/07/2018 HISTORY: Nausea and vomiting TECHNIQUE: 2 views FINDINGS: There are large bowel air fluid levels. Large bowel is not dilated. There is no sign of yg e air. There are clips from cholecystectomy. Lung bases are clear. There are no pathologic calcificat ions over the kidneys. There are clips from tubal ligation. IMPRESSION: Large bowel fluid levels consistent with diarrhea. This appears new compared to old exam. No free air. No sign of mechanical bowel obstruction.
[2018-07-15] MEDS ORDERED: SODIUM CHLORIDE 0.9% 1,000 ML IV ONE (21:40)
[2018-07-15] MEDS ORDERED: DICYCLOMINE 10 MG/ML 2 ML AMP IM STA (22:01)
[2018-07-15 22:08] LABS: Appearance,Urine Cloudy (Clear); Bilirubin,Urine Negative (Negative); Blood,Urine Large (Negative); Color,Urine Light Red; Glucose,Urine (UA) Negative (Negative); Ketones,Urine Negative (Negative); Leukocyte Esterase,Urine Trace (Negative); Mucus,Urine Few /hpf; Nitrite,Urine Negative (Negative); Protein,Urine 1+ (Negative); RBC,Urine >182 /hpf (0-5); Specific Gravity,Urine 1.025 (1.001-1.035); Squamous Epithelial Cell,Urine 2 /hpf (0-4); Urobilinogen,Urine <2.0 mg/dL (<2.0)
[2018-07-15] MEDS ORDERED: HYDROmorphone 1 MG/ML 1 ML SYRINGE IVP STA (22:13)
[2018-07-15 23:00] VITALS: BP 127/63; PULSE 99; RESP 18
--- NOTE | 2018-07-15 23:29 | CT ---
EXAM: CT Abdomen and Pelvis Without Intravenous Contrast CLINICAL HISTORY: ITS.REASON CT Reason: Pain TECHNIQUE: Axial computed tomography images of the abdomen and pelvis without intravenous contrast. CTDI is 22.8 mGy and DLP is 1309 mGy-cm. This CT exam was performed using one or more of the following dose reduction techniques: automated exposure control, adjustment of the mA and/or kV according to patient size, and/or use of iterative reconstruction technique. COMPARISON: Abdominal radiographs 07/15/2018. CTA abdomen-pelvis 07/03/2018 FINDINGS: Lung bases: Imaged lung bases are clear. ABDOMEN: Liver: Hepatic fatty infiltration. No focal hepatic abnormalities identified. Gallbladder and bile ducts: Status post previous cholecystectomy. No evidence of biliary dilatation. Pancreas: Pancreas is unremarkable. Spleen: Spleen is unremarkable. Adrenals: No adrenal masses. Kidneys and ureters: 6 mm nonobstructing right renal calculus. No evidence of hydronephrosis. Stomach and bowel: Scattered small bowel fluid levels in the lower abdomen and pelvis which are nonspecific and may reflect mild ileus or enteritis. Scattered colonic fluid levels suggesting diarrheal state. No evidence of bowel obstruction or pneumoperitoneum. PELVIS: Appendix: Appendix not clearly identified. No secondary findings of appendicitis. Bladder: Urinary bladder is nondistended limiting bladder evaluation. No bladder calculi identified. Reproductive: Unremarkable as visualized. ABDOMEN and PELVIS: Intraperitoneal space: Metallic clips noted in the pelvis bilaterally. Bones/joints: No acute bony abnormalities. Vasculature: No abdominal aortic aneurysm. Lymph nodes: No evidence of lymphadenopathy. IMPRESSION: Scattered small bowel fluid levels in the lower abdomen and pelvis which are nonspecific and may reflect mild ileus or enteritis. Scattered colonic fluid levels suggesting diarrheal state. No evidence of bowel obstruction or pneumoperitoneum. Hepatic fatty infiltration. Status post cholecystectomy. Small nonobstructing right renal calculus.
== END 2018-07-15 23:48 | disposition home or self-care (01) ==
LOC: EC 20:04
DX: K58.0 Irritable bowel syndrome with diarrhea (principal); R31.9 Hematuria, unspecified; R10.2 Pelvic and perineal pain; N20.0 Calculus of kidney; K76.0 Fatty (change of) liver, not elsewhere classified; K21.9 Gastro-esophageal reflux disease without esophagitis; M79.7 Fibromyalgia; F31.9 Bipolar disorder, unspecified; F41.9 Anxiety disorder, unspecified; Z79.899 Other long term (current) drug therapy; Z90.49 Acquired absence of other specified parts of digestive tract; Z86.69 Personal history of other diseases of the nervous system and sense organs
CPT/HCPCS: 36415; 74018; 74176; 80053; 81001; 82150; 83690; 85025; 87086; 96361; 96372; 96374; 96375; 99285

== ENCOUNTER 2018-09-24 19:06 | Observation (INO) | payer OTHER ==
[2018-09-24] MEDS ORDERED: ONDANSETRON 4 MG/2 ML VIAL IVP STA (21:02)
[2018-09-24] MEDS ORDERED: PANTOPRAZOLE 40 MG/10 ML VIAL IVP STA (21:02)
[2018-09-24] MEDS ORDERED: MORPHINE SULFATE 4 MG/ML SYRINGE IV STA (21:02)
[2018-09-24] MEDS ORDERED: SODIUM CHLORIDE 0.9% 1,000 ML IV STA (21:02)
[2018-09-24] MEDS ORDERED: MAG HYDROX/AL HYDROX/SIMETH 30 ML, HYOSCYAMINE ELIXIR 10 ML, CIMETIDINE HCL 300 MG, LID... PO STA ×4 (21:06)
--- NOTE | 2018-09-24 21:07 | ED ---
General Adult HPI - General Chief complaint: Abdominal Pain Stated complaint: abdominal pain/vomiting blood Time Seen by Provider: 09/24/18 20:31 Source: patient Mode of arrival: ambulatory Limitations: no limitations - History of Present Illness Initial comments: Dictation was produced using kaleo dictation software. please excuse any grammatical, word or spelling errors. Chief Complaint: 28-year-old feel presents with hematemesis. History of Present Illness: 28-year-old female past history of gastritis presents with hematemesis. Patient states she's been nauseated all day. She is had multiple bouts of emesis. Upon waking up she had emesis characteristic of the foot she recently 79. Later on the early afternoon she noted that there was blood in her vomit. Patient has history of Martine-Guevara tear. She had an EGD performed in April that showed no signs of bleeding however there was findings of gastritis. Patient states that she has some left upper quadrant abdominal pain. She takes Protonix daily. States that the pain is localized to her left upper quadrant. Reports the pain is continuous. He is also having burning sensation in her lower chest The ROS documented in this emergency department record has been reviewed and confirmed by me. Those systems with pertinent positive or negative responses have been documented in the HPI. All other systems are other negative and/or noncontributory. PHYSICAL EXAM: General Impression: Alert and oriented x3, not in acute distress HEENT: Normocephalic atraumatic, extra-ocular movements intact, pupils equal and reactive to light bilaterally, mucous membranes moist. Cardiovascular: Heart regular rate and rhythm, S1&S2 audible, no murmurs, rubs or gallops Chest: Lungs clear to auscultation bilaterally, no rhonchi, no wheeze, no rales Abdomen: tender to palpation of the left upper quadrant Musculoskeletal: Pulses present and equal in all extremities, no peripheral edema Motor: no focal deficits noted Neurological: CN II-XII grossly intact, no focal motor or sensory deficits noted Skin: Intact with no visualized rashes Psych: Normal affect and mood ED course: 28-year-old female with chief complaint of hematemesis, left upper quadrant abdominal pain. Vital signs upon arrival shows heart rate of 118, worse vital signs within acceptable limits. Laboratory evaluation obtained. Hemoglobin is 9.7. Disappears drastically low compared to her most recent hemoglobin back in June 2012 0.7. Coag panel unremarkable. Metabolic panel shows mild non-gap acidosis. Urinalysis is concerning for urinary tract infection. Patient started on Rocephin. Given patient's degree of hemoglobin drop. There is concern for acute blood loss anemia. Patient to be admitted patient given Protonix. Patient be admitted to inpatient with GI on consultation. - Related Data Home Medications Medication Instructions Recorded Confirmed ARIPiprazole [Abilify] 15 mg PO HS 06/21/17 09/24/18 LORazepam [Ativan] 1 mg PO HS 06/21/17 09/24/18 Amitriptyline HCl [Elavil] 10 mg PO BID 01/20/18 09/24/18 Pantoprazole [Protonix] 40 mg PO BID 01/20/18 09/24/18 Pravastatin Sodium [Pravachol] 20 mg PO HS 01/20/18 07/15/18 Gabapentin 600 mg PO TID 07/03/18 09/24/18 Melatonin 10 mg PO HS 07/03/18 09/24/18 SUMAtriptan SUCCINATE [Imitrex] 50 mg PO BID PRN 07/03/18 09/24/18 Venlafaxine HCl [Effexor] 50 mg PO DAILY 07/03/18 09/24/18 Verapamil HCl [Verapamil ER] 180 mg PO HS 09/24/18 09/24/18 acetaZOLAMIDE [Diamox Sequels] 500 mg PO BID 09/24/18 09/24/18 Previous Rx's Medication Instructions Recorded Dicyclomine [Bentyl] 20 mg PO QID #20 tablet 07/15/18 Allergies Allergy/AdvReac Type Severity Reaction Status Date / Time No Known Allergies Allergy Verified 09/24/18 20:53 Review of Systems ROS Statement: Those systems with pertinent positive or pertinent negative responses have been documented in the HPI. ROS Other: All systems not noted in ROS Statement are negative. Past Medical History Past Medical History: Fibromyalgia, GERD/Reflux, GI Bleed Additional Past Medical History / Comment(s): gallstones, kidney stones, D&C, IBS, migraines History of Any Multi-Drug Resistant Organisms: None Reported Past Surgical History: Section, Cholecystectomy, Tubal Ligation Additional Past Surgical History / Comment(s): neck biopsy (lymph node ) 4x c sect Past Anesthesia/Blood Transfusion Reactions: No Reported Reaction Past Psychological History: Anxiety, Bipolar, Depression, PTSD Smoking Status: Never smoker Past Alcohol Use History: Rare Past Drug Use History: None Reported - Past Family History Mother Family Medical History: Diabetes Mellitus, Hyperlipidemia, Hypertension, Myocardial Infarction ([place]) Additional Family Medical History / Comment(s): [place] X 3 Father Family Medical History: Congestive Heart Failure (CHF), Hyperlipidemia, Hypertension, Myocardial Infarction ([place]) Additional Family Medical History / Comment(s): mi x 3 Son(s) Family Medical History: No Reported History General Exam Limitations: no limitations Course Vital Signs 09/24/18 19:56 Temperature 99.3 F Pulse Rate 118 H Respiratory 20 Rate Blood Pressure 104/77 O2 Sat by Pulse 100 Oximetry Medical Decision Making - Lab Data Result diagrams: 09/24/18 20:45 09/24/18 20:45 Lab Results 09/24/18 09/24/18 09/24/18 Range/Units 20:45 20:45 20:45 WBC 9.7 (3.8-10.6) k/uL RBC 4.61 (3.80-5.40) m/uL Hgb 9.7 L (11.4-16.0) gm/dL Hct 33.5 L (34.0-46.0) % MCV 72.8 L (80.0-100.0) fL MCH 21.1 L (25.0-35.0) pg MCHC 29.0 L (31.0-37.0) g/dL RDW 14.3 (11.5-15.5) % Plt Count 374 (150-450) k/uL Neutrophils % 60 % Lymphocytes % 29 % Monocytes % 5 % Eosinophils % 4 % Basophils % 1 % Neutrophils # 5.8 (1.3-7.7) k/uL Lymphocytes # 2.8 (1.0-4.8) k/uL Monocytes # 0.5 (0-1.0) k/uL Eosinophils # 0.4 (0-0.7) k/uL Basophils # 0.1 (0-0.2) k/uL Hypochromasia Marked Poikilocytosis Moderate Microcytosis Slight PT (9.0-12.0) sec INR (<1.2) Sodium 143 (137-145) mmol/L Potassium 4.0 (3.5-5.1) mmol/L Chloride 112 H (98-107) mmol/L Carbon Dioxide 20 L (22-30) mmol/L Anion Gap 11 mmol/L BUN 15 (7-17) mg/dL Creatinine 0.93 (0.52-1.04) mg/dL Est GFR (CKD-EPI)AfAm >90 (>60 ml/min/1.73 sqM) Est GFR (CKD-EPI)NonAf 84 (>60 ml/min/1.73 sqM) Glucose 108 H (74-99) mg/dL Plasma Lactic Acid [place] (0.7-2.0) mmol/L Calcium 9.2 (8.4-10.2) mg/dL Total Bilirubin 0.5 (0.2-1.3) mg/dL AST 27 (14-36) U/L ALT 32 (9-52) U/L Alkaline Phosphatase 132 H (38-126) U/L Total Protein 7.1 (6.3-8.2) g/dL Albumin 4.1 (3.5-5.0) g/dL Lipase 78 (23-300) U/L Urine Color Urine Appearance (Clear) Urine pH (5.0-8.0) Ur Specific [place] (1.001-1.035) Urine Protein (Negative) Urine Glucose (UA) (Negative) Urine Ketones (Negative) Urine Blood (Negative) Urine Nitrite (Negative) Urine Bilirubin (Negative) Urine Urobilinogen (<2.0) mg/dL Ur Leukocyte Esterase (Negative) Urine RBC (0-5) /hpf Urine WBC (0-5) /hpf Urine WBC Clumps (None) /hpf Ur Squamous Epith Cells (0-4) /hpf Amorphous Sediment (None) /hpf Urine Mucus (None) /hpf Urine HCG, Qual Not Detected (Not Detectd) 09/24/18 09/24/18 09/24/18 Range/Units 20:45 20:45 20:45 WBC (3.8-10.6) k/uL RBC (3.80-5.40) m/uL Hgb (11.4-16.0) gm/dL Hct (34.0-46.0) % MCV (80.0-100.0) fL MCH (25.0-35.0) pg MCHC (31.0-37.0) g/dL RDW (11.5-15.5) % Plt Count (150-450) k/uL Neutrophils % % Lymphocytes % % Monocytes % % Eosinophils % % Basophils % % Neutrophils # (1.3-7.7) k/uL Lymphocytes # (1.0-4.8) k/uL Monocytes # (0-1.0) k/uL Eosinophils # (0-0.7) k/uL Basophils # (0-0.2) k/uL Hypochromasia Poikilocytosis Microcytosis PT 10.5 (9.0-12.0) sec INR 1.0 (<1.2) Sodium (137-145) mmol/L Potassium (3.5-5.1) mmol/L Chloride (98-107) mmol/L Carbon Dioxide (22-30) mmol/L Anion Gap mmol/L BUN (7-17) mg/dL Creatinine (0.52-1.04) mg/dL Est GFR (CKD-EPI)AfAm (>60 ml/min/1.73 sqM) Est GFR (CKD-EPI)NonAf (>60 ml/min/1.73 sqM) Glucose (74-99) mg/dL Plasma Lactic Acid [place] 1.3 (0.7-2.0) mmol/L Calcium (8.4-10.2) mg/dL Total Bilirubin (0.2-1.3) mg/dL AST (14-36) U/L ALT (9-52) U/L Alkaline Phosphatase (38-126) U/L Total Protein (6.3-8.2) g/dL Albumin (3.5-5.0) g/dL Lipase (23-300) U/L Urine Color Yellow Urine Appearance Turbid H (Clear) Urine pH 8.0 (5.0-8.0) Ur Specific [place] 1.023 (1.001-1.035) Urine Protein Trace H (Negative) Urine Glucose (UA) Negative (Negative) Urine Ketones Negative (Negative) Urine Blood Negative (Negative) Urine Nitrite Negative (Negative) Urine Bilirubin Negative (Negative) Urine Urobilinogen 4.0 (<2.0) mg/dL Ur Leukocyte Esterase Large H (Negative) Urine RBC 16 H (0-5) /hpf Urine WBC 17 H (0-5) /hpf Urine WBC Clumps Rare H (None) /hpf Ur Squamous Epith Cells 4 (0-4) /hpf Amorphous Sediment Few H (None) /hpf Urine Mucus Rare H (None) /hpf Urine HCG, Qual (Not Detectd) Disposition Clinical Impression: Acute blood loss anemia, Hematemesis Disposition: ADMITTED IP TO THIS HOSP Condition: Fair Referrals: Olvin Keenan MD [Primary Care Provider] - 1-2 days Decision Time: 22:15
[2018-09-24 21:22] LABS: Prothrombin Time 10.5 sec (9.0-12.0)
[2018-09-24 21:26] LABS: Amorphous Sediment,Urine Few /hpf; Appearance,Urine Turbid (Clear); Basophils # (A) 0.1 k/uL (0-0.2); Basophils % (A) 1 %; Bilirubin,Urine Negative (Negative); Blood,Urine Negative (Negative); Color,Urine Yellow; Eosinophils # (A) 0.4 k/uL (0-0.7); Eosinophils % (A) 4 %; Glucose,Urine (UA) Negative (Negative); HCT 33.5 % (34.0-46.0); HGB 9.7 gm/dL (11.4-16.0); Hypochromasia Marked; Ketones,Urine Negative (Negative); Leukocyte Esterase,Urine Large (Negative); Lymphocytes # (A) 2.8 k/uL (1.0-4.8); Lymphocytes % (A) 29 %; MCH 21.1 pg (25.0-35.0); MCV 72.8 fL (80.0-100.0); Mean Platelet Volume 7.5; Microcytosis Slight; Monocytes # (A) 0.5 k/uL (0-1.0); Monocytes % (A) 5 %; Mucus,Urine Rare /hpf; Neutrophils # (A) 5.8 k/uL (1.3-7.7); Neutrophils % (A) 60 %; Nitrite,Urine Negative (Negative); Platelet Count 374 k/uL (150-450); Poikilocytosis Moderate; Protein,Urine Trace (Negative); RBC 4.61 m/uL (3.80-5.40); RBC,Urine 16 /hpf (0-5); RDW 14.3 % (11.5-15.5); Specific Gravity,Urine 1.023 (1.001-1.035); Squamous Epithelial Cell,Urine 4 /hpf (0-4); WBC 9.7 k/uL (3.8-10.6); WBC,Urine 17 /hpf (0-5)
[2018-09-24 21:29] LABS: ALT 32 U/L (9-52); AST 27 U/L (14-36); Albumin 4.1 g/dL (3.5-5.0); Alkaline Phosphatase 132 U/L (38-126); Anion Gap 11 mmol/L; Blood Urea Nitrogen 15 mg/dL (7-17); Calcium 9.2 mg/dL (8.4-10.2); Carbon Dioxide 20 mmol/L (22-30); Chloride 112 mmol/L (98-107); Glucose 108 mg/dL (74-99); Lipase 78 U/L (23-300); Sodium 143 mmol/L (137-145); Total Bilirubin 0.5 mg/dL (0.2-1.3); Total Protein 7.1 g/dL (6.3-8.2)
--- NOTE | 2018-09-24 21:57 | XR ---
EXAMINATION TYPE: XR KUB DATE OF EXAM: 09/24/2018 COMPARISON: 07/15/2018 HISTORY: Abdominal pain TECHNIQUE: 2 views FINDINGS: 2 views upright show no sign of intestinal obstruction or pneumoperitoneum. Fecal pattern i s normal. There is no evidence of a mass. There are clips from cholecystectomy. There are no patholog ic calcifications over the kidneys. IMPRESSION: Nonacute abdomen. No adverse change compared to old exam. There is clearing of the intest inal fluid levels compared to old exam.
[2018-09-24] MEDS ORDERED: NALOXONE 0.4 MG/ML 1 ML VIAL IV PRN (22:15)
[2018-09-24] MEDS ORDERED: ACETAMINOPHEN TAB 325 MG TAB PO PRN (22:15)
[2018-09-24] MEDS ORDERED: MORPHINE SULFATE 4 MG/ML SYRINGE IVP STA (22:32)
[2018-09-24] MEDS: SODIUM CHLORIDE 0.9% 1,000 ML IV SCH (23:10)
[2018-09-25] MEDS ORDERED: MORPHINE SULFATE 4 MG/ML SYRINGE IVP PRN (02:25)
[2018-09-25] MEDS ORDERED: SUMAtriptan SUCCINATE 50 MG TAB PO PRN (02:28)
[2018-09-25] MEDS: GABAPENTIN 300 MG CAP PO SCH ×4 (02:58→20:54)
[2018-09-25] MEDS: PRAVASTATIN SODIUM 20 MG TAB PO SCH ×2 (02:59→20:53)
[2018-09-25] MEDS: LORazepam 1 MG TAB PO SCH ×2 (02:59→20:54)
[2018-09-25] MEDS: ARIPiprazole 15 MG TAB PO SCH ×2 (02:59→20:54)
[2018-09-25] MEDS: AMITRIPTYLINE HCL 10 MG TAB PO SCH ×3 (02:59→20:54)
[2018-09-25] MEDS: MORPHINE SULFATE 2 MG/ML SYRINGE IVP PRN ×2 (04:06→08:04)
[2018-09-25] MEDS: ONDANSETRON 4 MG/2 ML VIAL IVP PRN ×3 (04:07→18:17)
[2018-09-25] MEDS: VENLAFAXINE HCL 50 MG TAB PO SCH (08:03)
[2018-09-25] MEDS: DICYCLOMINE 20 MG TAB PO SCH ×4 (08:03→20:54)
[2018-09-25] MEDS: PANTOPRAZOLE 40 MG/10 ML VIAL IV SCH (08:04)
[2018-09-25] MEDS ORDERED: AMITRIPTYLINE HCL 10 MG TAB PO SCH (09:15)
[2018-09-25] MEDS ORDERED: NON-FORMULARY DRUG (Gabapentin [Gabapentin] 600 MG) PO SCH (09:15)
[2018-09-25] MEDS: acetaZOLAMIDE 250 MG TAB PO SCH ×2 (11:18→20:53)
[2018-09-25] MEDS: SODIUM CHLORIDE 0.9% 1,000 ML IV SCH ×3 (11:18→20:58)
--- NOTE | 2018-09-25 11:54 | HP ---
HISTORY AND PHYSICAL DATE OF ADMISSION: 09/24/2018 DATE OF SERVICE: 09/25/2018 PRESENTING COMPLAINT: Nausea, vomiting, some hematemesis. HISTORY OF PRESENTING COMPLAINT: This is a pleasant 28-year-old patient who follows with Dr. Keenan. Chronic stable medical conditions include bipolar disorder, PTSD, obesity. The patient also has had known chronic esophagitis and GERD. The patient has had multiple presentations to the hospital. The patient has been diagnosed with the chronic esophagitis and Martine-Guevara tear. The patient had 3 episodes of vomiting yesterday and had some blood in the same and was transferred here for the same. Since her presentation here, especially all of this morning, the patient has had no further episodes. No fever. No chills. The patient has been on clear liquids. REVIEW OF SYSTEMS: CONSTITUTIONAL: None. HEENT: None. RESPIRATORY: None. CARDIOVASCULAR: None. GASTROINTESTINAL: As above. GENITOURINARY: None. MUSCULOSKELETAL: Has some chronic pain. DERMATOLOGICAL: None. HEMATOLOGIC: None. LYMPHATIC: None. PSYCHIATRY: Anxious. NEUROLOGICAL: None. PAST MEDICAL HISTORY: Past medical history of GERD, esophagitis, kidney stones, bipolar, PTSD, Martine-Guevara tear. PAST SURGICAL HISTORY: , cholecystectomy and tubal ligation. SOCIAL HISTORY: No smoking. No recreational drugs. Lives with her mother. Has 4 children. No alcohol. FAMILY HISTORY: Family history of diabetes, hyperlipidemia, hypertension, myocardial infarction. HOME MEDICATIONS: 1. Diamox 500 mg b.i.d. 2. Verapamil ER 180 mg q.h.s. 3. Effexor 50 mg p.o. daily. 4. Imitrex 50 mg b.i.d. p.r.n. 5. Protonix 40 mg b.i.d. 6. Melatonin 10 mg q.h.s. 7. Ativan 1 mg p.o. q.h.s. 8. Gabapentin 600 mg t.i.d. 9. Bentyl 20 mg q.i.d. 10.Elavil 10 mg p.o. b.i.d. 11.Abilify 15 mg q.h.s. 12.Pravachol 20 mg q.h.s. ALLERGIES: None. PHYSICAL EXAMINATION: On examination, vital signs on presentation: Temperature 99.3, pulse 118, repeat 97, respiration 20, blood pressure 104/77, pulse ox 100% on room air. GENERAL APPEARANCE: Well built, BMI 51. Lying in bed, awake, not in distress. EYES: Pupils equal. Conjunctivae normal. HENT: External appearance of nose and ears normal. Oral cavity normal. NECK: JVD not raised. Mass not palpable. RESPIRATORY: Effort normal. LUNGS: Fair entry. CARDIOVASCULAR: First and second sounds normal. No edema. ABDOMEN: Soft, nontender. Liver and spleen not palpable. LYMPHATIC: No lymph nodes palpable in the neck and axilla. PSYCHIATRY: Alert and oriented x3. Mood and affect normal. NEUROLOGICAL: Pupils equal. Cranial nerves grossly intact. Power and sensation grossly intact. INVESTIGATIONS: White count 9.7, hemoglobin 9.7, platelets 374. Potassium 4.0. BUN and creatinine normal. The patient in April this year did have a EGD that showed some mild gastritis. ASSESSMENT: 1. Three episodes of vomiting with some evidence of hematemesis, likely from Martine- Guevara tear, which patient has had multiple episodes in the past. EGD too long ago was showing some gastritis. 2. Morbid obesity, body mass index more than 50. 3. Gastroesophageal reflux disease. 4. Bipolar disorder. 5. Asymptomatic bacteriuria. Patient has no urinary symptoms. PLAN: The patient will be maintained on PPI. We will add Tums. The patient will be started on a full liquid diet how she advances. We will stop the IV morphine. No indication for the same. The patient probably will have a side effect of nausea vomiting as a side effect and may make things worse. Will repeat a hemoglobin in the morning to make sure she does not drop any further. We will also add some sodium bicarb. MMODL / IJN: [id number] /
[2018-09-25] MEDS: CALCIUM CARBONATE LIQUID 500 MG/5 ML CUP PO SCH ×2 (13:12→18:01)
[2018-09-25] MEDS: MELATONIN 5 MG TABLET PO SCH (20:53)
[2018-09-25] MEDS: VERAPAMIL SR 180 MG TABLET.ER PO SCH (20:54)
[2018-09-25] MEDS ORDERED: ARIPiprazole 15 MG TAB PO SCH (21:00)
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
[2018-09-26] MEDS: GABAPENTIN 300 MG CAP PO SCH ×3 (07:23→22:03)
[2018-09-26] MEDS: PANTOPRAZOLE 40 MG/10 ML VIAL IV SCH (07:23)
[2018-09-26] MEDS: CALCIUM CARBONATE LIQUID 500 MG/5 ML CUP PO SCH ×3 (07:24→16:15)
[2018-09-26] MEDS: DICYCLOMINE 20 MG TAB PO SCH ×4 (07:24→22:03)
[2018-09-26] MEDS: AMITRIPTYLINE HCL 10 MG TAB PO SCH ×2 (07:24→22:04)
[2018-09-26] MEDS: acetaZOLAMIDE 250 MG TAB PO SCH ×2 (07:24→22:02)
[2018-09-26] MEDS: VENLAFAXINE HCL 50 MG TAB PO SCH (07:25)
[2018-09-26 10:18] LABS: Basophils % (A) 1 %; Eosinophils # (A) 0.3 k/uL (0-0.7); Eosinophils % (A) 5 %; HCT 28.6 % (34.0-46.0); Hypochromasia Marked; Lymphocytes # (A) 1.7 k/uL (1.0-4.8); Lymphocytes % (A) 28 %; MCH 20.6 pg (25.0-35.0); MCHC 28.1 g/dL (31.0-37.0); MCV 73.4 fL (80.0-100.0); Mean Platelet Volume 6.9; Microcytosis Slight; Monocytes # (A) 0.2 k/uL (0-1.0); Monocytes % (A) 4 %; Neutrophils # (A) 3.9 k/uL (1.3-7.7); Neutrophils % (A) 62 %; Platelet Count 290 k/uL (150-450); Poikilocytosis Slight; RBC 3.89 m/uL (3.80-5.40); RDW 15.1 % (11.5-15.5); WBC 6.2 k/uL (3.8-10.6)
[2018-09-26] MEDS: ONDANSETRON 4 MG/2 ML VIAL IVP PRN ×2 (13:00→19:56)
--- NOTE | 2018-09-26 17:19 | PN ---
PROGRESS NOTE DATE OF SERVICE: 09/26/2018. HISTORY: The patient is a 28-year-old pleasant white female admitted to the hospital with nausea, vomiting, and abdominal pain. Apparently, she had couple of episodes of bright red blood in her emesis. Hemoglobin however remained stable at 17 g/dL. She is feeling much better today. She had upper endoscopy done in April of 2018 for similar symptoms and was noted to have mild gastritis. Since being in the hospital, she is feeling better. No further episodes of bleeding. She tolerated regular diet this morning. PHYSICAL EXAMINATION: Appears comfortable, in no apparent distress. Vital signs stable, blood pressure is 112/82, pulse rate 93, temperature 98. HEENT: Examination unremarkable. Conjunctivae pink. Sclerae anicteric. Oral cavity no lesions. NECK: No JVD, no lymph node enlargement. LUNGS: Clear to auscultation. HEART: Regular rate and rhythm. ABDOMEN: Soft. Bowel sounds are positive. EXTREMITIES: No pedal edema. SKIN: No rashes. NEUROLOGIC: Alert and oriented x3. No focal deficits. LABS: WBC 6.2, hemoglobin 8, platelets normal. Basic metabolic panel is within normal limits. Yesterday hemoglobin was 9.7. IMPRESSION: Nausea, vomiting, and 2 episodes of coffee-grounds emesis yesterday, which has since resolved. Hemoglobin is 8 g/dL, dropped from 9.7 yesterday. However, clinically she is doing well. She is hemodynamically stable. No further episodes of bleeding. Upper endoscopy done in April of 2018 showed mild gastritis. RECOMMENDATIONS: 1. Continue with oral Protonix. 2. Continue with regular diet. 3. No plans for any endoscopy intervention at the present time. 4. We will follow her closely during the hospital stay. Thank you for this consultation. MMODL / IJN: [id number] /
[2018-09-26 18:59] VITALS: RESP 16
[2018-09-26] MEDS: SODIUM CHLORIDE 0.9% 1,000 ML IV SCH (22:02)
[2018-09-26] MEDS: MELATONIN 5 MG TABLET PO SCH (22:03)
[2018-09-26] MEDS: VERAPAMIL SR 180 MG TABLET.ER PO SCH (22:03)
[2018-09-26] MEDS: ARIPiprazole 15 MG TAB PO SCH (22:03)
[2018-09-26] MEDS: LORazepam 1 MG TAB PO SCH (22:03)
[2018-09-26] MEDS: PRAVASTATIN SODIUM 20 MG TAB PO SCH (22:04)
--- NOTE | 2018-09-26 22:55 | PN ---
PROGRESS NOTE DATE OF SERVICE: 09/26/2018. PRESENTING COMPLAINT: Tired. INTERVAL HISTORY: This patient presented with some hematemesis, this morning hemoglobin was 8. In June of this year hemoglobin was 13.2. It was 9.7 when she had come in. The patient does feel weak and tired. Did tolerate clear liquids. No further BMs here. REVIEW OF SYSTEMS: Done for constitutional, cardiovascular, GI, pulmonary; relevant findings as above. CURRENT MEDICATIONS: Reviewed, that include Protonix. PHYSICAL EXAMINATION: Temperature 98.7, pulse 91, respirations 16, blood pressure 104/61, pulse ox 96 percent. GENERAL APPEARANCE: Sitting up awake. EYES: Pupils equal. Conjunctivae pale. NECK: JVD not raised. Mass not palpable. Respiratory effort normal. LUNGS: Fair air entry. CARDIOVASCULAR: 1st and 2nd heart sounds. No edema. ABDOMEN: Soft, nontender. Liver and spleen not palpable. PSYCHIATRY: Alert and oriented x3. Mood and affect normal. INVESTIGATIONS: White count 6.2, hemoglobin 8. ASSESSMENT: 1. Acute blood loss anemia from GI. 2. Morbid obesity. BMI more than 50. 3. GERD. 4. Bipolar disorder. 5. Asymptomatic bacteriuria. 6. Chronic esophagitis. PLAN: Patient has dropped her hemoglobin from 13.2 in June of this year, was 9 on admission, now down to 8. The patient does feel weak and tired. We will give a unit of blood. Upper GI, no endoscopy currently. Will advance patient's diet. Repeat hemoglobin in the morning. MMODL / IJN: [id number] /
[2018-09-27] MEDS: CALCIUM CARBONATE LIQUID 500 MG/5 ML CUP PO SCH ×2 (07:14→11:49)
[2018-09-27 08:08] LABS: Basophils # (A) 0.1 k/uL (0-0.2); Basophils % (A) 1 %; Eosinophils # (A) 0.3 k/uL (0-0.7); Eosinophils % (A) 5 %; HCT 31.4 % (34.0-46.0); HGB 9.4 gm/dL (11.4-16.0); Hypochromasia Marked; Lymphocytes # (A) 2.2 k/uL (1.0-4.8); Lymphocytes % (A) 32 %; MCH 22.2 pg (25.0-35.0); Mean Platelet Volume 7.4; Microcytosis Slight; Monocytes # (A) 0.3 k/uL (0-1.0); Monocytes % (A) 5 %; Neutrophils # (A) 3.9 k/uL (1.3-7.7); Neutrophils % (A) 56 %; Platelet Count 280 k/uL (150-450); Poikilocytosis Moderate; RBC 4.24 m/uL (3.80-5.40); RDW 15.9 % (11.5-15.5); WBC 6.9 k/uL (3.8-10.6)
[2018-09-27] MEDS: VENLAFAXINE HCL 50 MG TAB PO SCH (08:35)
[2018-09-27] MEDS: AMITRIPTYLINE HCL 10 MG TAB PO SCH (08:35)
[2018-09-27] MEDS: acetaZOLAMIDE 250 MG TAB PO SCH (08:38)
[2018-09-27] MEDS: DICYCLOMINE 20 MG TAB PO SCH ×2 (08:38→11:49)
[2018-09-27] MEDS: GABAPENTIN 300 MG CAP PO SCH (08:39)
[2018-09-27] MEDS ORDERED: PANTOPRAZOLE 40 MG TABLET PO SCH (09:00)
[2018-09-27] MEDS: ONDANSETRON 4 MG/2 ML VIAL IVP PRN (11:55)
--- NOTE | 2018-09-27 11:59 | PN ---
PROGRESS NOTE The patient is a 28-year-old white female admitted to hospital with nausea, vomiting, and some coffee ground emesis. The initial hemoglobin was 9.4, dropped to 8 g/dL yesterday and today it is 9.4 g/dL. The patient is feeling much better. Abdominal pain has resolved. She denies any further episodes of nausea, vomiting. Reports no rectal bleeding or melena. PHYSICAL EXAMINATION: She appears comfortable in no apparent distress. VITAL SIGNS: Stable. Blood pressure is 124/70, pulse rate 105, temperature 97.9. HEENT examination unremarkable. Conjunctivae pink. Sclerae anicteric. Oral cavity no lesions. NECK: No jugular venous distention or lymph node enlargement. CHEST: Clear to auscultation. HEART: Regular rate and rhythm. ABDOMEN: Soft, bowel sounds are positive. No organomegaly. EXTREMITIES: No pedal edema. SKIN no rashes. NEUROLOGIC: Alert and oriented x3. No focal deficits. LABS: From today WBC 6.9, hemoglobin 9.4, platelets 218, and basic metabolic panel is within normal limits. IMPRESSION: 1. Nausea and vomiting with coffee-ground emesis at the time of admission to the hospital which since has resolved. She had a similar presentation in April of 2018, underwent an upper endoscopy by Dr. Melissa that showed evidence of some gastritis and esophagitis, presently on Protonix 40 mg daily. 2. Microcytic anemia, suggestive of iron deficiency. No history of menorrhagia. RECOMMENDATIONS: 1. Continue with Protonix 40 mg twice daily. 2. Start iron supplements. 3. We will follow her hemoglobin on an outpatient basis and if she continues to have persistent iron deficiency anemia, we will consider further endoscopy workup on an outpatient basis. Thank you for this consultation. MMODL / IJN: [id number] /
[2018-09-27 12:04] VITALS: BP 109/63; PULSE 100; TEMP 98
--- NOTE | 2018-09-28 00:12 | DS ---
DISCHARGE SUMMARY DATE OF ADMISSION: 09/25/2018 DATE OF DISCHARGE: 09/27/2018. FINAL DIAGNOSES: 1. Acute blood loss anemia from gastrointestinal source. 2. Morbid obesity BMI more than 50. 3. Gastroesophageal reflux disease. 4. Bipolar disorder. 5. Asymptomatic bacteriuria. 6. Chronic esophagitis. HOSPITAL COURSE: This patient presented with hematemesis. The patient's hemoglobin was 13.2 in June of this year and did drop down to 8. The patient has had an EGD back in May of this year that showed chronic esophagitis. The patient did get a unit of blood. Remaining weak and tired. This morning, hemoglobin had come up to 9.4. I discussed with alli Estrella to discharge the patient. She will follow the patient as an outpatient. Care was discussed with the patient. PHYSICAL EXAMINATION: Temperature 98, pulse 100, respirations 16, blood pressure 109/63, pulse ox 95% on room air. Lungs are clear. ABDOMEN: Soft, nontender. INVESTIGATIONS: Hemoglobin 9.4. HOME GO MEDICATIONS: 1. Ativan at night was discontinued. 2. Abilify 50 mg q.h.s. 3. Elavil 10 mg b.i.d. 4. Protonix 40 mg b.i.d. 5. Pravachol 20 mg q.h.s. 6. Gabapentin 600 mg t.i.d. 7. Melatonin 10 mg q.h.s. 8. Imitrex 50 mg b.i.d. p.r.n. 9. Effexor 50 mg p.o. daily. 10.Bentyl 20 mg p.o. q.i.d. 11.Verapamil ER 180 mg q.h.s. 12.Diamox 500 mg b.i.d. 13.Tylenol 650 mg q.6 p.r.n. CBC in 1 week. FOLLOWUP: Follow up with Dr. Olvin Keenan in 3 days. Follow up with Dr. Coleen Vyas in 10 days. Care was discussed in detail with the patient. Discussion and discharge planning more than [address] Keenan. MMSHONDA / SARAH: [id number] /
== END 2018-09-27 15:11 | disposition home or self-care (01) ==
LOC: EC 19:06 → 3NMEDONC 22:17
PROVIDERS: ADMIT Hospitalist; ATTEND Hospitalist
DX: D62 Acute posthemorrhagic anemia (principal); E66.01 Morbid (severe) obesity due to excess calories; Z68.43 Body mass index [BMI] 50.0-59.9, adult; K21.0 Gastro-esophageal reflux disease with esophagitis; K29.71 Gastritis, unspecified, with bleeding; F31.9 Bipolar disorder, unspecified; F60.9 Personality disorder, unspecified; F41.9 Anxiety disorder, unspecified; F43.10 Post-traumatic stress disorder, unspecified; R82.71 Bacteriuria; E87.2 Acidosis; K58.9 Irritable bowel syndrome, unspecified; G43.909 Migraine, unspecified, not intractable, without status migrainosus; M79.7 Fibromyalgia; Z79.899 Other long term (current) drug therapy; Z87.442 Personal history of urinary calculi; Z87.19 Personal history of other diseases of the digestive system; Z90.49 Acquired absence of other specified parts of digestive tract; Z82.49 Family history of ischemic heart disease and other diseases of the circulatory system; Z83.3 Family history of diabetes mellitus; Z99.81 Dependence on supplemental oxygen
CPT/HCPCS: 96376 ×4; 96361; 96374; 96375; 99285; 36415; 86900; 86901; 80053; 83605; 83690; 85025 ×3; 85610; 86850; 86920; 81001; 81025; 74018; G0378 ×4; P9016; J2270 ×2; J2405 ×4; C9113 ×3

== ENCOUNTER 2018-10-07 19:16 | Emergency (ER) | payer OTHER ==
[2018-10-07 19:46] VITALS: RESP 18; TEMP 98.9
[2018-10-07] MEDS ORDERED: ONDANSETRON 4 MG/2 ML VIAL IVP STA ×2 (20:50→23:43)
[2018-10-07] MEDS ORDERED: HYDROmorphone 0.5 MG/0.5 ML SYRINGE IVP STA ×2 (20:50→23:44)
[2018-10-07] MEDS ORDERED: SODIUM CHLORIDE 0.9% 1,000 ML IV STA (20:50)
[2018-10-07 21:04] LABS: Anisocytosis Slight; Basophils # (A) 0.1 k/uL (0-0.2); Basophils % (A) 1 %; Eosinophils # (A) 0.4 k/uL (0-0.7); Eosinophils % (A) 6 %; HCT 35.1 % (34.0-46.0); HGB 10.4 gm/dL (11.4-16.0); Hypochromasia Marked; Lymphocytes # (A) 2.2 k/uL (1.0-4.8); Lymphocytes % (A) 30 %; MCHC 29.8 g/dL (31.0-37.0); MCV 73.9 fL (80.0-100.0); Microcytosis Slight; Monocytes # (A) 0.4 k/uL (0-1.0); Monocytes % (A) 5 %; Neutrophils # (A) 4.1 k/uL (1.3-7.7); Neutrophils % (A) 57 %; Platelet Count 309 k/uL (150-450); Poikilocytosis Moderate; RBC 4.75 m/uL (3.80-5.40); RDW 17.2 % (11.5-15.5); WBC 7.3 k/uL (3.8-10.6)
[2018-10-07 21:15] LABS: ALT 38 U/L (9-52); AST 27 U/L (14-36); African American GFR (CKD) >90 (>60 ml/min/1.73 sqM); Albumin 3.9 g/dL (3.5-5.0); Alkaline Phosphatase 132 U/L (38-126); Anion Gap 10 mmol/L; Blood Urea Nitrogen 13 mg/dL (7-17); Calcium 8.9 mg/dL (8.4-10.2); Carbon Dioxide 22 mmol/L (22-30); Chloride 112 mmol/L (98-107); Glucose 108 mg/dL (74-99); Potassium 3.9 mmol/L (3.5-5.1); Sodium 144 mmol/L (137-145); Total Bilirubin 0.3 mg/dL (0.2-1.3); Total Protein 6.9 g/dL (6.3-8.2)
[2018-10-07 21:16] LABS: INR 0.9 (<1.2); Partial Thromboplastin Time 22.5 sec (22.0-30.0); Prothrombin Time 9.5 sec (9.0-12.0)
--- NOTE | 2018-10-07 22:03 | XR ---
EXAMINATION TYPE: XR KUB DATE OF EXAM: 10/07/2018 COMPARISON: 09/24/2018 HISTORY: Pain TECHNIQUE: 2 upright views FINDINGS: The visualized lung bases and pleural spaces are negative. Bowel gas pattern is normal. No pneumoperitoneum or pneumatosis. No acute skeletal or soft tissue findings are evident. IMPRESSION: No acute radiographic process.
[2018-10-07 22:37] LABS: Appearance,Urine Cloudy (Clear); Bacteria,Urine Rare /hpf; Bilirubin,Urine Negative (Negative); Blood,Urine Trace (Negative); Color,Urine Yellow; Glucose,Urine (UA) Negative (Negative); Ketones,Urine Negative (Negative); Leukocyte Esterase,Urine Large (Negative); Mucus,Urine Rare /hpf; Nitrite,Urine Negative (Negative); PH, Urine 6.5 (5.0-8.0); Protein,Urine Trace (Negative); RBC,Urine 9 /hpf (0-5); Specific Gravity,Urine 1.022 (1.001-1.035); Squamous Epithelial Cell,Urine 7 /hpf (0-4); WBC,Urine 66 /hpf (0-5)
[2018-10-07 23:28] VITALS: BP 132/76; PULSE 94
[2018-10-07] MEDS ORDERED: cefTRIAXone IN SWFI 1,000 MG/10 ML SYRINGE IVP STA (23:43)
[2018-10-07] MEDS ORDERED: FAMOTIDINE 20 MG/2 ML VIAL IV STA (23:43)
--- NOTE | 2018-10-07 23:45 | ED ---
Abdominal Pain HPI - General Chief Complaint: Abdominal Pain Stated Complaint: Vomiting Time Seen by Provider: 10/07/18 19:57 Source: patient Mode of arrival: ambulatory Limitations: no limitations - History of Present Illness Initial Comments: 28-year-old female patient presents to the emergency department today for evaluation of left upper quadrant abdominal pain and hematemesis. Patient states symptoms started for her this morning having gradually worsening throughout the day. Patient states she has had 2-3 episodes of bright red bloody vomitus. Patient states she has had this in the past and has had numerous workups including upper GI endoscopy in April which showed no acute findings. Patient states she does take Protonix twice daily. Patient states she has been taking this as directed. Patient denies any use of NSAIDs. Denies alcohol use. She denies any chance of . She denies any fever, chills, chest pain, shortness of breath, dizziness, or weakness. Patient denies any recent rash, diarrhea, constipation, back pain, numbness, tingling, hematuria, dysuria, urinary urgency, urinary frequency, headache, visual changes, or any other complaints. - Related Data Home Medications Medication Instructions Recorded Confirmed ARIPiprazole [Abilify] 15 mg PO HS 06/21/17 10/07/18 Amitriptyline HCl [Elavil] 10 mg PO BID 01/20/18 10/07/18 Pantoprazole [Protonix] 40 mg PO BID 01/20/18 10/07/18 Pravastatin Sodium [Pravachol] 20 mg PO HS 01/20/18 10/07/18 Gabapentin 600 mg PO TID 07/03/18 10/07/18 Melatonin 10 mg PO HS 07/03/18 10/07/18 SUMAtriptan SUCCINATE [Imitrex] 50 mg PO BID PRN 07/03/18 10/07/18 Venlafaxine HCl [Effexor] 50 mg PO DAILY 07/03/18 10/07/18 Verapamil HCl [Verapamil ER] 180 mg PO HS 09/24/18 10/07/18 acetaZOLAMIDE [Diamox Sequels] 500 mg PO BID 09/24/18 10/07/18 Previous Rx's Medication Instructions Recorded Dicyclomine [Bentyl] 20 mg PO QID #20 tablet 07/15/18 Acetaminophen Tab [Tylenol] 650 mg PO Q6HR PRN tab 09/27/18 Cephalexin [Keflex] 500 mg PO Q6HR #40 cap 10/07/18 Ondansetron [Zofran ODT] 4 mg PO Q8HR PRN #10 tab 10/07/18 Allergies Allergy/AdvReac Type Severity Reaction Status Date / Time No Known Allergies Allergy Verified 10/07/18 20:18 Review of Systems ROS Statement: Those systems with pertinent positive or pertinent negative responses have been documented in the HPI. ROS Other: All systems not noted in ROS Statement are negative. Past Medical History Past Medical History: Fibromyalgia, GERD/Reflux, GI Bleed, Hyperlipidemia Additional Past Medical History / Comment(s): gallstones, kidney stones, D&C, IBS, migraines, tachycardia, Martine- Guevara tear History of Any Multi-Drug Resistant Organisms: None Reported Past Surgical History: Section, Cholecystectomy, Tubal Ligation Additional Past Surgical History / Comment(s): neck biopsy (lymph node ) 4x c sect Past Anesthesia/Blood Transfusion Reactions: No Reported Reaction Past Psychological History: Anxiety, Bipolar, Depression, PTSD Smoking Status: Never smoker Past Alcohol Use History: Rare Past Drug Use History: None Reported - Past Family History Mother Family Medical History: Diabetes Mellitus, Hyperlipidemia, Hypertension, Myocardial Infarction ([place]) Additional Family Medical History / Comment(s): [place] X 3 Father Family Medical History: Congestive Heart Failure (CHF), Hyperlipidemia, Hypertension, Myocardial Infarction ([place]) Additional Family Medical History / Comment(s): mi x 3 Son(s) Family Medical History: No Reported History General Exam Limitations: no limitations General appearance: alert, in no apparent distress, other (This is a well- developed, well-nourished adult female patient in no acute distress. Vital signs upon presentation are temperature 98.9F, pulse 111, respirations 18, blo od pressure 120/74, pulse ox 100% on room air.) Eye exam: Present: normal appearance, PERRL, EOMI. Absent: scleral icterus, conjunctival injection, periorbital swelling ENT exam: Present: normal exam, normal oropharynx, mucous membranes moist Respiratory exam: Present: normal lung sounds bilaterally. Absent: respiratory distress, wheezes, rales, rhonchi, stridor Cardiovascular Exam: Present: regular rate, normal rhythm, normal heart sounds. Absent: systolic murmur, diastolic murmur, rubs, gallop, clicks GI/Abdominal exam: Present: soft, tenderness (Left upper quadrant tenderness), normal bowel sounds. Absent: distended, guarding, rebound, rigid Back exam: Present: normal inspection Neurological exam: Present: alert, oriented X3, CN II-XII intact Psychiatric exam: Present: normal affect, normal mood Skin exam: Present: warm, dry, intact, normal color. Absent: rash Course Vital Signs 10/07/18 10/07/18 19:44 23:27 Temperature 98.9 F Pulse Rate 111 H 94 Respiratory 18 18 Rate Blood Pressure 120/74 132/76 O2 Sat by Pulse 100 100 Oximetry Medical Decision Making - Medical Decision Making 28-year-old female patient presented to the emergency department today for evaluation of left upper quadrant pain and hematemesis. Physical examination did reveal tenderness to the left upper quadrant. Skin is pink, warm, dry. Vital signs are stable. Labs reviewed and revealed a hemoglobin of 10. Remainder of labs are unremarkable. Urinalysis did show evidence of infection. We'll treat for urinary tract infection. She is instructed to continue her medications and to follow-up with her primary care physician and her photograph enlarger for recheck as soon as possible. Return parameters discussed in detail. She verbalizes understanding and agrees with this plan. - Lab Data Result diagrams: 10/07/18 20:15 10/07/18 20:15 Lab Results 10/07/18 10/07/18 10/07/18 Range/Units 20:15 20:15 20:15 WBC 7.3 (3.8-10.6) k/uL RBC 4.75 (3.80-5.40) m/uL Hgb 10.4 L (11.4-16.0) gm/dL Hct 35.1 (34.0-46.0) % MCV 73.9 L (80.0-100.0) fL MCH 22.0 L (25.0-35.0) pg MCHC 29.8 L (31.0-37.0) g/dL RDW 17.2 H (11.5-15.5) % Plt Count 309 (150-450) k/uL Neutrophils % 57 % Lymphocytes % 30 % Monocytes % 5 % Eosinophils % 6 % Basophils % 1 % Neutrophils # 4.1 (1.3-7.7) k/uL Lymphocytes # 2.2 (1.0-4.8) k/uL Monocytes # 0.4 (0-1.0) k/uL Eosinophils # 0.4 (0-0.7) k/uL Basophils # 0.1 (0-0.2) k/uL Hypochromasia Marked Poikilocytosis Moderate Anisocytosis Slight Microcytosis Slight PT 9.5 (9.0-12.0) sec INR 0.9 (<1.2) APTT 22.5 (22.0-30.0) sec Sodium 144 (137-145) mmol/L Potassium 3.9 (3.5-5.1) mmol/L Chloride 112 H (98-107) mmol/L Carbon Dioxide 22 (22-30) mmol/L Anion Gap 10 mmol/L BUN 13 (7-17) mg/dL Creatinine 0.82 (0.52-1.04) mg/dL Est GFR (CKD-EPI)AfAm >90 (>60 ml/min/1.73 sqM) Est GFR (CKD-EPI)NonAf >90 (>60 ml/min/1.73 sqM) Glucose 108 H (74-99) mg/dL Calcium 8.9 (8.4-10.2) mg/dL Total Bilirubin 0.3 (0.2-1.3) mg/dL AST 27 (14-36) U/L ALT 38 (9-52) U/L Alkaline Phosphatase 132 H (38-126) U/L Troponin I (0.000-0.034) ng/mL Total Protein 6.9 (6.3-8.2) g/dL Albumin 3.9 (3.5-5.0) g/dL Urine Color Urine Appearance (Clear) Urine pH (5.0-8.0) Ur Specific Le[place] (1.001-1.035) Urine Protein (Negative) Urine Glucose (UA) (Negative) Urine Ketones (Negative) Urine Blood (Negative) Urine Nitrite (Negative) Urine Bilirubin (Negative) Urine Urobilinogen (<2.0) mg/dL Ur Leukocyte Esterase (Negative) Urine RBC (0-5) /hpf Urine WBC (0-5) /hpf Ur Squamous Epith Cells (0-4) /hpf Urine Bacteria (None) /hpf Urine Mucus (None) /hpf Urine HCG, Qual (Not Detectd) 10/07/18 10/07/18 10/07/18 Range/Units 20:15 22:15 22:15 WBC (3.8-10.6) k/uL RBC (3.80-5.40) m/uL Hgb (11.4-16.0) gm/dL Hct (34.0-46.0) % MCV (80.0-100.0) fL MCH (25.0-35.0) pg MCHC (31.0-37.0) g/dL RDW (11.5-15.5) % Plt Count (150-450) k/uL Neutrophils % % Lymphocytes % % Monocytes % % Eosinophils % % Basophils % % Neutrophils # (1.3-7.7) k/uL Lymphocytes # (1.0-4.8) k/uL Monocytes # (0-1.0) k/uL Eosinophils # (0-0.7) k/uL Basophils # (0-0.2) k/uL Hypochromasia Poikilocytosis Anisocytosis Microcytosis PT (9.0-12.0) sec INR (<1.2) APTT (22.0-30.0) sec Sodium (137-145) mmol/L Potassium (3.5-5.1) mmol/L Chloride (98-107) mmol/L Carbon Dioxide (22-30) mmol/L Anion Gap mmol/L BUN (7-17) mg/dL Creatinine (0.52-1.04) mg/dL Est GFR (CKD-EPI)AfAm (>60 ml/min/1.73 sqM) Est GFR (CKD-EPI)NonAf (>60 ml/min/1.73 sqM) Glucose (74-99) mg/dL Calcium (8.4-10.2) mg/dL Total Bilirubin (0.2-1.3) mg/dL AST (14-36) U/L ALT (9-52) U/L Alkaline Phosphatase (38-126) U/L Troponin I <0.012 (0.000-0.034) ng/mL Total Protein (6.3-8.2) g/dL Albumin (3.5-5.0) g/dL Urine Color Yellow Urine Appearance Cloudy H (Clear) Urine pH 6.5 (5.0-8.0) Ur Specific Le[place] 1.022 (1.001-1.035) Urine Protein Trace H (Negative) Urine Glucose (UA) Negative (Negative) Urine Ketones Negative (Negative) Urine Blood Trace H (Negative) Urine Nitrite Negative (Negative) Urine Bilirubin Negative (Negative) Urine Urobilinogen 4.0 (<2.0) mg/dL Ur Leukocyte Esterase Large H (Negative) Urine RBC 9 H (0-5) /hpf Urine WBC 66 H (0-5) /hpf Ur Squamous Epith Cells 7 H (0-4) /hpf Urine Bacteria Rare H (None) /hpf Urine Mucus Rare H (None) /hpf Urine HCG, Qual Not Detected (Not Detectd) - EKG Data -: EKG Interpreted by Me EKG Comments: EKG obtained at 2100 shows normal sinus rhythm with a ventricular rate of 97, CA interval 142, QR hindu 88, QT 352, QTc 447. No evidence of ST elevation or depression. - Radiology Data Radiology results: report reviewed, image reviewed KUB x-ray of the abdomen is obtained. Report reviewed in its entirety. Impression by Dr. Scott shows no acute radiographic process. Disposition Clinical Impression: Abdominal pain, Urinary tract infection Disposition: HOME SELF-CARE Condition: Good Instructions (If sedation given, give patient instructions): Urinary Tract Infection in Women (ED), Abdominal Pain (ED) Additional Instructions: Increase fluids. Take medications as directed. Follow up with your primary care physician or photograph enlarger for further evaluation as soon as possible. Return to the emergency department immediately for any new, worsening, or concerning symptoms. Prescriptions: Cephalexin [Keflex] 500 mg PO Q6HR #40 cap Ondansetron [Zofran ODT] 4 mg PO Q8HR PRN #10 tab PRN Reason: Nausea Is patient prescribed a controlled substance at d/c from ED?: No Referrals: Olvin Keenan MD [Primary Care Provider] - 1-2 days Time of Disposition: 23:45
== END 2018-10-08 00:36 | disposition home or self-care (01) ==
LOC: EC 19:16
DX: N39.0 Urinary tract infection, site not specified (principal); R10.12 Left upper quadrant pain; K92.0 Hematemesis; M79.7 Fibromyalgia; K21.9 Gastro-esophageal reflux disease without esophagitis; E78.5 Hyperlipidemia, unspecified; F31.9 Bipolar disorder, unspecified; F41.9 Anxiety disorder, unspecified; Z79.899 Other long term (current) drug therapy; Z90.49 Acquired absence of other specified parts of digestive tract
CPT/HCPCS: 99284; 96374; 96375 ×3; 96376 ×2; 96361; 36415; 93005; 80053; 84484; 85025; 85610; 85730; 81001; 81025; 74018; J2405; J0696; J1170

== ENCOUNTER 2018-10-13 21:38 | Emergency (ER) | payer OTHER ==
[2018-10-13 21:52] VITALS: RESP 18; TEMP 98.8
[2018-10-13] MEDS ORDERED: SODIUM CHLORIDE 0.9% 1,000 ML IV STA (22:10)
[2018-10-13] MEDS ORDERED: PANTOPRAZOLE 40 MG/10 ML VIAL IVP STA (22:11)
[2018-10-13] MEDS ORDERED: ONDANSETRON 4 MG/2 ML VIAL IVP STA (22:11)
[2018-10-13 22:47] LABS: Anisocytosis Slight; Basophils # (A) 0.1 k/uL (0-0.2); Basophils % (A) 1 %; Eosinophils # (A) 0.7 k/uL (0-0.7); Eosinophils % (A) 7 %; HCT 34.9 % (34.0-46.0); HGB 10.3 gm/dL (11.4-16.0); Hypochromasia Marked; Lymphocytes % (A) 30 %; MCH 21.4 pg (25.0-35.0); MCHC 29.4 g/dL (31.0-37.0); MCV 72.9 fL (80.0-100.0); Mean Platelet Volume 7.1; Microcytosis Moderate; Monocytes # (A) 0.5 k/uL (0-1.0); Monocytes % (A) 5 %; Neutrophils # (A) 5.6 k/uL (1.3-7.7); Neutrophils % (A) 56 %; Platelet Count 363 k/uL (150-450); Poikilocytosis Moderate; RBC 4.79 m/uL (3.80-5.40); RDW 16.4 % (11.5-15.5); WBC 9.9 k/uL (3.8-10.6)
[2018-10-13 22:55] LABS: ALT 24 U/L (9-52); AST 19 U/L (14-36); African American GFR (CKD) >90 (>60 ml/min/1.73 sqM); Albumin 3.7 g/dL (3.5-5.0); Alkaline Phosphatase 130 U/L (38-126); Anion Gap 8 mmol/L; Blood Urea Nitrogen 14 mg/dL (7-17); Calcium 8.9 mg/dL (8.4-10.2); Carbon Dioxide 20 mmol/L (22-30); Chloride 114 mmol/L (98-107); Glucose 85 mg/dL (74-99); Sodium 142 mmol/L (137-145); Total Bilirubin 0.4 mg/dL (0.2-1.3); Total Protein 6.7 g/dL (6.3-8.2)
--- NOTE | 2018-10-13 22:56 | XR ---
EXAM: XR Abdomen, 1 View CLINICAL HISTORY: ITS.REASON XR Reason: Pain TECHNIQUE: Frontal supine view of the abdomen/pelvis. COMPARISON: No relevant prior studies available. FINDINGS: Gastrointestinal tract: Unremarkable. No dilation. Bones/joints: Unremarkable. IMPRESSION: Normal abdominal x-ray.
[2018-10-13 22:59] LABS: INR 0.9 (<1.2); Partial Thromboplastin Time 22.4 sec (22.0-30.0); Prothrombin Time 9.7 sec (9.0-12.0)
[2018-10-13] MEDS ORDERED: MORPHINE SULFATE 4 MG/ML SYRINGE IVP STA (23:04)
--- NOTE | 2018-10-13 23:08 | ED ---
General Adult HPI - General Chief complaint: Abdominal Pain Stated complaint: Hematemesis,Abd Pain Time Seen by Provider: 10/13/18 21:50 Source: patient, RN notes reviewed Mode of arrival: wheelchair Limitations: no limitations - History of Present Illness Initial comments: 28-year-old female presents to the emergency department for a chief complaint of hematemesis. Patient states this has been ongoing times one day. States she has had a couple episodes today. States that this has happened before there is a she takes Protonix for this. States she has upper abdominal pain in the left upper quadrant. Denies any lower abdominal pain. Denies any fevers or chills. Denies any chest pain or shortness of breath. States she has had similar symptoms before but they did not find a cause. Patient has no other complaints at this time including shortness of breath, chest pain,headache, or visual changes. - Related Data Home Medications Medication Instructions Recorded Confirmed ARIPiprazole [Abilify] 15 mg PO HS 06/21/17 10/13/18 Amitriptyline HCl [Elavil] 10 mg PO BID 01/20/18 10/13/18 Pantoprazole [Protonix] 40 mg PO BID 01/20/18 10/13/18 Pravastatin Sodium [Pravachol] 20 mg PO HS 01/20/18 10/13/18 Gabapentin 600 mg PO TID 07/03/18 10/13/18 Melatonin 10 mg PO HS 07/03/18 10/13/18 SUMAtriptan SUCCINATE [Imitrex] 50 mg PO BID PRN 07/03/18 10/13/18 Venlafaxine HCl [Effexor] 50 mg PO DAILY 07/03/18 10/13/18 Verapamil HCl [Verapamil ER] 180 mg PO HS 09/24/18 10/13/18 acetaZOLAMIDE [Diamox Sequels] 500 mg PO BID 09/24/18 10/13/18 Previous Rx's Medication Instructions Recorded Dicyclomine [Bentyl] 20 mg PO QID #20 tablet 07/15/18 Acetaminophen Tab [Tylenol] 650 mg PO Q6HR PRN tab 09/27/18 Cephalexin [Keflex] 500 mg PO Q6HR #40 cap 10/07/18 Ondansetron [Zofran ODT] 4 mg PO Q8HR PRN #10 tab 10/07/18 Ondansetron [Zofran ODT] 4 mg PO Q8HR PRN #15 tab 10/13/18 Allergies Allergy/AdvReac Type Severity Reaction Status Date / Time No Known Allergies Allergy Verified 10/13/18 22:14 Review of Systems ROS Statement: Those systems with pertinent positive or pertinent negative responses have been documented in the HPI. ROS Other: All systems not noted in ROS Statement are negative. Past Medical History Past Medical History: Fibromyalgia, GERD/Reflux, GI Bleed, Hyperlipidemia Additional Past Medical History / Comment(s): gallstones, kidney stones, D&C, IBS, migraines, tachycardia, Martine- Guevara tear History of Any Multi-Drug Resistant Organisms: None Reported Past Surgical History: Section, Cholecystectomy, Tubal Ligation Additional Past Surgical History / Comment(s): neck biopsy (lymph node ) 4x c sect Past Anesthesia/Blood Transfusion Reactions: No Reported Reaction Past Psychological History: Anxiety, Bipolar, Depression, PTSD Smoking Status: Never smoker Past Alcohol Use History: Rare Past Drug Use History: Marijuana - Past Family History Mother Family Medical History: Diabetes Mellitus, Hyperlipidemia, Hypertension, Myocardial Infarction ([place]) Additional Family Medical History / Comment(s): [place] X 3 Father Family Medical History: Congestive Heart Failure (CHF), Hyperlipidemia, Hypertension, Myocardial Infarction ([place]) Additional Family Medical History / Comment(s): mi x 3 Son(s) Family Medical History: No Reported History General Exam Limitations: no limitations General appearance: alert, in no apparent distress Head exam: Present: atraumatic, normocephalic, normal inspection Eye exam: Present: normal appearance, PERRL, EOMI. Absent: scleral icterus, c onjunctival injection, periorbital swelling ENT exam: Present: normal exam, mucous membranes moist Neck exam: Present: normal inspection, full ROM. Absent: tenderness, meningismus, lymphadenopathy Respiratory exam: Present: normal lung sounds bilaterally. Absent: respiratory distress, wheezes, rales, rhonchi, stridor Cardiovascular Exam: Present: regular rate, normal rhythm, normal heart sounds. Absent: systolic murmur, diastolic murmur, rubs, gallop, clicks GI/Abdominal exam: Present: soft, tenderness (Tenderness noted in the upper left upper and epigastric abdomen however abdomen is soft to palpation. No rigidity. No guarding. No right upper quadrant tenderness.), normal bowel sounds. Absent: distended, guarding, rebound, rigid Neurological exam: Present: alert, oriented X3, CN II-XII intact Psychiatric exam: Present: normal affect, normal mood Course Vital Signs 10/13/18 21:50 Temperature 98.8 F Pulse Rate 112 H Respiratory 18 Rate Blood Pressure 124/76 O2 Sat by Pulse 100 Oximetry Medical Decision Making - Medical Decision Making 28-year-old female with hematemesis times one day. Patient has a long history of hematemesis. Upper abdominal pain as well. States this is exactly consistent. Patient had an EGD in April which was essentially unremarkable. Dewitt that they could possibly related to a Martine-Guevara tear.patient denies any chance of , states she has had a tubal. CBC and CMP unremarkable. Amylase and lipase within normal limits. X-ray of abdomen is negative. Patient given Protonix and Zofran. No vomiting in the emergency department. Nausea mu ch improved. At this time we feel it is appropriate for patient to follow up outpatient. She does see Dr. Sanchez and Janneth MENDENHALL. She has an appointment in October but will call to expedite this. Patient will be given Zofran. Patient will follow up with primary care in 1-2 days. She'll return here if she has any worsening symptoms. - Lab Data Result diagrams: 10/13/18 22:20 10/13/18 22:20 Lab Results 10/13/18 10/13/18 10/13/18 Range/Units 22:20 22:20 22:20 WBC 9.9 (3.8-10.6) k/uL RBC 4.79 (3.80-5.40) m/uL Hgb 10.3 L (11.4-16.0) gm/dL Hct 34.9 (34.0-46.0) % MCV 72.9 L (80.0-100.0) fL MCH 21.4 L (25.0-35.0) pg MCHC 29.4 L (31.0-37.0) g/dL RDW 16.4 H (11.5-15.5) % Plt Count 363 (150-450) k/uL Neutrophils % 56 % Lymphocytes % 30 % Monocytes % 5 % Eosinophils % 7 % Basophils % 1 % Neutrophils # 5.6 (1.3-7.7) k/uL Lymphocytes # 3.0 (1.0-4.8) k/uL Monocytes # 0.5 (0-1.0) k/uL Eosinophils # 0.7 (0-0.7) k/uL Basophils # 0.1 (0-0.2) k/uL Hypochromasia Marked Poikilocytosis Moderate Anisocytosis Slight Microcytosis Moderate PT 9.7 (9.0-12.0) sec INR 0.9 (<1.2) APTT 22.4 (22.0-30.0) sec Sodium 142 (137-145) mmol/L Potassium 4.0 (3.5-5.1) mmol/L Chloride 114 H (98-107) mmol/L Carbon Dioxide 20 L (22-30) mmol/L Anion Gap 8 mmol/L BUN 14 (7-17) mg/dL Creatinine 0.95 (0.52-1.04) mg/dL Est GFR (CKD-EPI)AfAm >90 (>60 ml/min/1.73 sqM) Est GFR (CKD-EPI)NonAf 82 (>60 ml/min/1.73 sqM) Glucose 85 (74-99) mg/dL Plasma Lactic Acid Darnell (0.7-2.0) mmol/L Calcium 8.9 (8.4-10.2) mg/dL Total Bilirubin 0.4 (0.2-1.3) mg/dL AST 19 (14-36) U/L ALT 24 (9-52) U/L Alkaline Phosphatase 130 H (38-126) U/L Total Protein 6.7 (6.3-8.2) g/dL Albumin 3.7 (3.5-5.0) g/dL Blood Type Blood Type Recheck Antibody Screen Spec Expiration Date 10/13/18 10/13/18 Range/Units 22:20 22:20 WBC (3.8-10.6) k/uL RBC (3.80-5.40) m/uL Hgb (11.4-16.0) gm/dL Hct (34.0-46.0) % MCV (80.0-100.0) fL MCH (25.0-35.0) pg MCHC (31.0-37.0) g/dL RDW (11.5-15.5) % Plt Count (150-450) k/uL Neutrophils % % Lymphocytes % % Monocytes % % Eosinophils % % Basophils % % Neutrophils # (1.3-7.7) k/uL Lymphocytes # (1.0-4.8) k/uL Monocytes # (0-1.0) k/uL Eosinophils # (0-0.7) k/uL Basophils # (0-0.2) k/uL Hypochromasia Poikilocytosis Anisocytosis Microcytosis PT (9.0-12.0) sec INR (<1.2) APTT (22.0-30.0) sec Sodium (137-145) mmol/L Potassium (3.5-5.1) mmol/L Chloride (98-107) mmol/L Carbon Dioxide (22-30) mmol/L Anion Gap mmol/L BUN (7-17) mg/dL Creatinine (0.52-1.04) mg/dL Est GFR (CKD-EPI)AfAm (>60 ml/min/1.73 sqM) Est GFR (CKD-EPI)NonAf (>60 ml/min/1.73 sqM) Glucose (74-99) mg/dL Plasma Lactic Acid Darnell 0.8 (0.7-2.0) mmol/L Calcium (8.4-10.2) mg/dL Total Bilirubin (0.2-1.3) mg/dL AST (14-36) U/L ALT (9-52) U/L Alkaline Phosphatase (38-126) U/L Total Protein (6.3-8.2) g/dL Albumin (3.5-5.0) g/dL Blood Type B Positive Blood Type Recheck No Antibody Screen NEGATIVE Spec Expiration Date 10/16/2018 - 2319 Disposition Clinical Impression: Nausea and vomiting Disposition: HOME SELF-CARE Condition: Good Instructions (If sedation given, give patient instructions): Acute Nausea and Vomiting (ED) Additional Instructions: Please continue to take Protonix. Please take Zofran for nausea. Follow-up with your GI specialist in 1-2 days. Return here if you have any worsening symptoms. Prescriptions: Ondansetron [Zofran ODT] 4 mg PO Q8HR PRN #15 tab PRN Reason: Nausea Is patient prescribed a controlled substance at d/c from ED?: No Referrals: Olvin Keenan MD [Primary Care Provider] - 1-2 days Nohemi Vyas MD [STAFF PHYSICIAN] - 1-2 days Time of Disposition: 23:33
[2018-10-13 23:38] LABS: Amylase 38 U/L (30-110); Lipase 101 U/L (23-300)
[2018-10-14 00:29] VITALS: BP 109/63; PULSE 90
== END 2018-10-14 00:25 | disposition home or self-care (01) ==
LOC: EC 21:38
DX: R11.2 Nausea with vomiting, unspecified (principal); K21.9 Gastro-esophageal reflux disease without esophagitis; F31.9 Bipolar disorder, unspecified; M79.7 Fibromyalgia; F41.9 Anxiety disorder, unspecified; E78.5 Hyperlipidemia, unspecified; Z79.899 Other long term (current) drug therapy; Z90.49 Acquired absence of other specified parts of digestive tract; Z90.710 Acquired absence of both cervix and uterus
CPT/HCPCS: 99284; 96374; 96375 ×2; 96361 ×2; 36415; 86900; 86901; 80053; 82150; 83605; 83690; 85025; 85610; 85730; 86850; 74018; J2270; J2405; C9113

== ENCOUNTER 2018-10-20 21:40 | Emergency (ER) | payer OTHER ==
[2018-10-20 21:58] VITALS: TEMP 98.9
[2018-10-20] MEDS ORDERED: SODIUM CHLORIDE 0.9% 1,000 ML IV STA (22:06)
[2018-10-20] MEDS ORDERED: ONDANSETRON 4 MG/2 ML VIAL IVP STA (22:06)
[2018-10-20] MEDS ORDERED: PANTOPRAZOLE 40 MG/10 ML VIAL IVP STA (22:06)
[2018-10-20] MEDS ORDERED: DICYCLOMINE 10 MG/ML 2 ML AMP IM STA (22:32)
--- NOTE | 2018-10-20 22:37 | ED ---
GI Bleed HPI - General Chief complaint: GI Bleed Stated complaint: Blood in Vomit&Diarrhea Time Seen by Provider: 10/20/18 22:04 Source: patient Mode of arrival: ambulatory Limitations: no limitations - History of Present Illness Initial comments: Yeimy is a morbidly obese 28-year-old female who presents the emergency department today for evaluation of nausea, vomiting, diarrhea and report of blood in her vomitus as well as bright red diarrhea. Patient reports she has experienced this in the past and has followed with gastroenterology and had EGD as well as colonoscopies with no definitive findings. Patient reports that she was in her usual state of health today until approximately 3:30 today when she began having crampy abdominal pain nausea vomiting. Patient reports she's had 4 episodes of vomiting and 2 episodes of diarrhea she's noticed blood in both. Patient reports that despite feeling as if she was able to easily steaks for dinner but continued to have nausea vomiting and abdominal pain. - Related Data Home Medications Medication Instructions Recorded Confirmed ARIPiprazole [Abilify] 15 mg PO HS 06/21/17 10/20/18 Amitriptyline HCl [Elavil] 10 mg PO BID 01/20/18 10/20/18 Pantoprazole [Protonix] 40 mg PO BID 01/20/18 10/20/18 Pravastatin Sodium [Pravachol] 20 mg PO HS 01/20/18 10/20/18 Gabapentin 600 mg PO TID 07/03/18 10/20/18 Melatonin 10 mg PO HS 07/03/18 10/20/18 SUMAtriptan SUCCINATE [Imitrex] 50 mg PO BID PRN 07/03/18 10/20/18 Venlafaxine HCl [Effexor] 50 mg PO DAILY 07/03/18 10/20/18 Verapamil HCl [Verapamil ER] 180 mg PO HS 09/24/18 10/20/18 acetaZOLAMIDE [Diamox Sequels] 500 mg PO BID 09/24/18 10/20/18 Previous Rx's Medication Instructions Recorded Dicyclomine [Bentyl] 20 mg PO QID #20 tablet 07/15/18 Acetaminophen Tab [Tylenol] 650 mg PO Q6HR PRN tab 09/27/18 Cephalexin [Keflex] 500 mg PO Q6HR #40 cap 10/07/18 Ondansetron [Zofran ODT] 4 mg PO Q8HR PRN #15 tab 10/13/18 Allergies Allergy/AdvReac Type Severity Reaction Status Date / Time No Known Allergies Allergy Verified 10/20/18 22:10 Review of Systems ROS Statement: Those systems with pertinent positive or pertinent negative responses have been documented in the HPI. ROS Other: All systems not noted in ROS Statement are negative. Past Medical History Past Medical History: Fibromyalgia, GERD/Reflux, GI Bleed, Hyperlipidemia Additional Past Medical History / Comment(s): gallstones, kidney stones, D&C, IBS, migraines, tachycardia, Martine- Guevara tear History of Any Multi-Drug Resistant Organisms: None Reported Past Surgical History: Section, Cholecystectomy, Tubal Ligation Additional Past Surgical History / Comment(s): neck biopsy (lymph node ) 4x c sect Past Anesthesia/Blood Transfusion Reactions: No Reported Reaction Past Psychological History: Anxiety, Bipolar, Depression, PTSD Smoking Status: Never smoker Past Alcohol Use History: Rare Past Drug Use History: Marijuana - Past Family History Mother Family Medical History: Diabetes Mellitus, Hyperlipidemia, Hypertension, Myocardial Infarction ([place]) Additional Family Medical History / Comment(s): [place] X 3 Father Family Medical History: Congestive Heart Failure (CHF), Hyperlipidemia, Hypertension, Myocardial Infarction ([place]) Additional Family Medical History / Comment(s): mi x 3 Son(s) Family Medical History: No Reported History General Exam - General Exam Comments Initial Comments: Physical Exam GENERAL: Patient is well-developed and well-nourished. HENT: Normocephalic, Atraumatic. EYES: PERRL, EOMI PULMONARY: Unlabored respirations. No audible rales rhonchi or wheezing was noted. CARDIOVASCULAR: There is a regular rate and rhythm without any murmurs gallops or rubs. ABDOMEN: Diffuse mild tenderness normal active bowel sounds No peritonitis SKIN: Skin is clear with no lesions or rashes and otherwise unremarkable. : Deferred NEUROLOGIC: Patient is alert and oriented x3. Moving all extremities spontaneously MUSCULOSKELETAL: Normal extremities with adequate strength and full range of motion. No lower extremity swelling or edema. No calf tenderness. PSYCHIATRIC: Normal psychiatric evaluation. Limitations: no limitations Course Vital Signs 10/20/18 10/20/18 10/20/18 21:56 22:37 22:40 Temperature 98.9 F Pulse Rate 124 H 87 Respiratory 18 16 Rate Blood Pressure 123/68 103/76 O2 Sat by Pulse 99 95 97 Oximetry Medical Decision Making - Medical Decision Making The patient was seen and evaluated, history is obtained from the patient and review of medical records IV fluids, Zofran, Protonix and Bentyl were ordered Patient reported only minimal improvement with the Bentyl. Labs were unremarkable. Gastric occult was positive however there is no gross blood in the vomitus Stool occult was negative Results were discussed with the patient who reports she is still having pain or prominently on the left side of the abdomen the right. I discussed with the patient option for hydration and supportive care versus I CT imaging and patient would prefer CT imaging at this time. A CT was obtained and resulted with mesenteric adenitis. These results were discussed with the patient, supportive care was discussed. All questions pertaining care were answered patient was discharged home with prescription for Zofran and encouraged to maintain oral hydration. Return parameters were discussed patient was discharged in stable condition. - Lab Data Result diagrams: 10/20/18 22:36 10/20/18 22:36 Lab Results 10/20/18 10/20/18 10/20/18 Range/Units 22:36 22:36 22:36 WBC 9.4 (3.8-10.6) k/uL RBC 4.67 (3.80-5.40) m/uL Hgb 10.0 L (11.4-16.0) gm/dL Hct 34.6 (34.0-46.0) % MCV 74.1 L (80.0-100.0) fL MCH 21.4 L (25.0-35.0) pg MCHC 28.9 L (31.0-37.0) g/dL RDW 17.0 H (11.5-15.5) % Plt Count 349 (150-450) k/uL Neutrophils % 58 % Lymphocytes % 30 % Monocytes % 5 % Eosinophils % 5 % Basophils % 1 % Neutrophils # 5.5 (1.3-7.7) k/uL Lymphocytes # 2.8 (1.0-4.8) k/uL Monocytes # 0.4 (0-1.0) k/uL Eosinophils # 0.5 (0-0.7) k/uL Basophils # 0.1 (0-0.2) k/uL Hypochromasia Marked Poikilocytosis Slight Anisocytosis Slight Microcytosis Slight APTT 22.2 (22.0-30.0) sec Sodium 143 (137-145) mmol/L Potassium 3.6 (3.5-5.1) mmol/L Chloride 111 H (98-107) mmol/L Carbon Dioxide 21 L (22-30) mmol/L Anion Gap 11 mmol/L BUN 18 H (7-17) mg/dL Creatinine 0.84 (0.52-1.04) mg/dL Est GFR (CKD-EPI)AfAm >90 (>60 ml/min/1.73 sqM) Est GFR (CKD-EPI)NonAf >90 (>60 ml/min/1.73 sqM) Glucose 112 H (74-99) mg/dL Calcium 9.2 (8.4-10.2) mg/dL Total Bilirubin 0.3 (0.2-1.3) mg/dL AST 22 (14-36) U/L ALT 28 (9-52) U/L Alkaline Phosphatase 137 H (38-126) U/L Total Protein 6.7 (6.3-8.2) g/dL Albumin 3.9 (3.5-5.0) g/dL Lipase 149 (23-300) U/L Gastric Occult Blood (Negative) Stool Occult Blood (Negative) 10/20/18 10/20/18 Range/Units 22:46 22:47 WBC (3.8-10.6) k/uL RBC (3.80-5.40) m/uL Hgb (11.4-16.0) gm/dL Hct (34.0-46.0) % MCV (80.0-100.0) fL MCH (25.0-35.0) pg MCHC (31.0-37.0) g/dL RDW (11.5-15.5) % Plt Count (150-450) k/uL Neutrophils % % Lymphocytes % % Monocytes % % Eosinophils % % Basophils % % Neutrophils # (1.3-7.7) k/uL Lymphocytes # (1.0-4.8) k/uL Monocytes # (0-1.0) k/uL Eosinophils # (0-0.7) k/uL Basophils # (0-0.2) k/uL Hypochromasia Poikilocytosis Anisocytosis Microcytosis APTT (22.0-30.0) sec Sodium (137-145) mmol/L Potassium (3.5-5.1) mmol/L Chloride (98-107) mmol/L Carbon Dioxide (22-30) mmol/L Anion Gap mmol/L BUN (7-17) mg/dL Creatinine (0.52-1.04) mg/dL Est GFR (CKD-EPI)AfAm (>60 ml/min/1.73 sqM) Est GFR (CKD-EPI)NonAf (>60 ml/min/1.73 sqM) Glucose (74-99) mg/dL Calcium (8.4-10.2) mg/dL Total Bilirubin (0.2-1.3) mg/dL AST (14-36) U/L ALT (9-52) U/L Alkaline Phosphatase (38-126) U/L Total Protein (6.3-8.2) g/dL Albumin (3.5-5.0) g/dL Lipase (23-300) U/L Gastric Occult Blood Positive (Negative) Stool Occult Blood Negative (Negative) Disposition Clinical Impression: Mesenteric adenitis Disposition: HOME SELF-CARE Condition: Stable Instructions (If sedation given, give patient instructions): Gastrointestinal Bleeding (ED) Is patient prescribed a controlled substance at d/c from ED?: No Referrals: Olvin Keenan MD [Primary Care Provider] - 1-2 days
[2018-10-20 22:56] LABS: ALT 28 U/L (9-52); AST 22 U/L (14-36); African American GFR (CKD) >90 (>60 ml/min/1.73 sqM); Albumin 3.9 g/dL (3.5-5.0); Alkaline Phosphatase 137 U/L (38-126); Anion Gap 11 mmol/L; Blood Urea Nitrogen 18 mg/dL (7-17); Calcium 9.2 mg/dL (8.4-10.2); Carbon Dioxide 21 mmol/L (22-30); Chloride 111 mmol/L (98-107); Glucose 112 mg/dL (74-99); Lipase 149 U/L (23-300); Potassium 3.6 mmol/L (3.5-5.1); Sodium 143 mmol/L (137-145); Total Bilirubin 0.3 mg/dL (0.2-1.3); Total Protein 6.7 g/dL (6.3-8.2)
[2018-10-20 22:58] VITALS: BP 103/76; PULSE 87; RESP 16
[2018-10-20] MEDS ORDERED: HYOSCYAMINE ELIXIR 250 MCG/10 ML BTL ONE (23:55)
[2018-10-20] MEDS ORDERED: LIDOCAINE VISCOUS 300 MG/15 ML CUP ONE (23:55)
[2018-10-20] MEDS ORDERED: MAG HYDROX/AL HYDROX/SIMETH 30 ML CUP ONE (23:55)
[2018-10-20] MEDS ORDERED: CIMETIDINE HCL 300 MG/5 ML ONE (23:55)
[2018-10-21 07:23] LABS: Anisocytosis Slight; Basophils # (A) 0.1 k/uL (0-0.2); Basophils % (A) 1 %; Eosinophils # (A) 0.5 k/uL (0-0.7); Eosinophils % (A) 5 %; HCT 34.6 % (34.0-46.0); Hypochromasia Marked; Lymphocytes # (A) 2.8 k/uL (1.0-4.8); Lymphocytes % (A) 30 %; MCH 21.4 pg (25.0-35.0); MCHC 28.9 g/dL (31.0-37.0); MCV 74.1 fL (80.0-100.0); Mean Platelet Volume 7.9; Microcytosis Slight; Monocytes # (A) 0.4 k/uL (0-1.0); Monocytes % (A) 5 %; Neutrophils # (A) 5.5 k/uL (1.3-7.7); Neutrophils % (A) 58 %; Platelet Count 349 k/uL (150-450); Poikilocytosis Slight; RBC 4.67 m/uL (3.80-5.40); WBC 9.4 k/uL (3.8-10.6)
--- NOTE | 2018-10-21 10:18 | CT ---
EXAM: CT Abdomen and Pelvis With Intravenous Contrast CLINICAL HISTORY: iso 300(100ml) DLP 2462.5 epigastric pain prior on pacs TECHNIQUE: Axial computed tomography images of the abdomen and pelvis with intravenous contrast. CTDI is 28.8 mGy and DLP is 2462.5 mGy-cm. This CT exam was performed using one or more of the following dose reduction techniques: automated exposure control, adjustment of the mA and/or kV according to patient size, and/or use of iterative reconstruction technique. COMPARISON: 07/15/18 FINDINGS: Lung bases: Minimal haziness of the right middle lobe may represent mild atelectasis or nonspecific pneumonitis. ABDOMEN: Liver: Fatty liver. No mass. Gallbladder and bile ducts: Cholecystectomy. No ductal dilation. Pancreas: Unremarkable. No mass. No ductal dilation. Spleen: Unremarkable. No splenomegaly. Adrenals: Unremarkable. No mass. Kidneys and ureters: Nonobstructing bilateral renal calculi. 6 cm on the right and 3 mm on the left. No hydronephrosis or obstructing calculus. Stomach and bowel: Unremarkable. No obstruction. No mucosal thickening. PELVIS: Appendix: Normal appendix. Bladder: Unremarkable. No mass. Reproductive: Tubal ligation clips. ABDOMEN and PELVIS: Intraperitoneal space: Unremarkable. No free air. No significant fluid collection. Bones/joints: No acute fracture. No dislocation. Soft tissues: Unremarkable. Vasculature: Unremarkable. No abdominal aortic aneurysm. Lymph nodes: Minimal haziness of the mid abdominal mesentery with small nodes. IMPRESSION: 1. Nonobstructing bilateral renal calculi. 6 cm on the right and 3 mm on the left. No hydronephrosis or obstructing calculus. 2. Minimal haziness of the mid abdominal mesentery with small nodes. May represent mesenteric panniculitis which can be idiopathic or associated with infectious/inflammatory or neoplastic processes.
== END 2018-10-21 03:10 | disposition home or self-care (01) ==
LOC: EC 21:40
DX: I88.0 Nonspecific mesenteric lymphadenitis (principal); M79.7 Fibromyalgia; K21.9 Gastro-esophageal reflux disease without esophagitis; E78.5 Hyperlipidemia, unspecified; K52.9 Noninfective gastroenteritis and colitis, unspecified; G43.909 Migraine, unspecified, not intractable, without status migrainosus; F31.9 Bipolar disorder, unspecified; F41.9 Anxiety disorder, unspecified; F43.10 Post-traumatic stress disorder, unspecified; E66.01 Morbid (severe) obesity due to excess calories; Z68.43 Body mass index [BMI] 50.0-59.9, adult; Z79.899 Other long term (current) drug therapy; Z90.49 Acquired absence of other specified parts of digestive tract
CPT/HCPCS: 36415; 80053; 83690; 85025; 85730; 82272; 82271; 74177; 99285; 96374; 96375; 96361; 96372; J0500; J2405; C9113; Q9967

== ENCOUNTER 2018-11-19 19:46 | Emergency (ER) | payer OTHER ==
[2018-11-19] MEDS ORDERED: MORPHINE SULFATE 4 MG/ML SYRINGE IVP STA (21:06)
[2018-11-19] MEDS ORDERED: FAMOTIDINE 20 MG/2 ML VIAL IV STA (21:06)
[2018-11-19] MEDS ORDERED: ONDANSETRON 4 MG/2 ML VIAL IVP STA (21:06)
[2018-11-19] MEDS ORDERED: SODIUM CHLORIDE 0.9% 1,000 ML IV STA (21:06)
[2018-11-19 22:13] LABS: INR 0.9 (<1.2); Partial Thromboplastin Time 22.3 sec (22.0-30.0); Prothrombin Time 9.7 sec (9.0-12.0)
[2018-11-19 22:15] LABS: ALT 29 U/L (9-52); AST 21 U/L (14-36); African American GFR (CKD) >90 (>60 ml/min/1.73 sqM); Alkaline Phosphatase 128 U/L (38-126); Amylase 38 U/L (30-110); Anion Gap 10 mmol/L; Blood Urea Nitrogen 15 mg/dL (7-17); Calcium 9.1 mg/dL (8.4-10.2); Carbon Dioxide 22 mmol/L (22-30); Chloride 109 mmol/L (98-107); Glucose 134 mg/dL (74-99); Magnesium 1.9 mg/dL (1.6-2.3); Potassium 3.8 mmol/L (3.5-5.1); Sodium 141 mmol/L (137-145); Total Bilirubin 0.3 mg/dL (0.2-1.3); Total Protein 6.8 g/dL (6.3-8.2)
[2018-11-19 22:26] LABS: Anisocytosis Slight; Basophils # (A) 0.1 k/uL (0-0.2); Basophils % (A) 1 %; Eosinophils # (A) 0.6 k/uL (0-0.7); Eosinophils % (A) 5 %; HCT 36.9 % (34.0-46.0); HGB 10.6 gm/dL (11.4-16.0); Hypochromasia Marked; Lymphocytes # (A) 2.9 k/uL (1.0-4.8); Lymphocytes % (A) 25 %; MCH 20.8 pg (25.0-35.0); MCHC 28.8 g/dL (31.0-37.0); Mean Platelet Volume 6.7; Microcytosis Moderate; Monocytes # (A) 0.5 k/uL (0-1.0); Monocytes % (A) 4 %; Neutrophils # (A) 7.1 k/uL (1.3-7.7); Neutrophils % (A) 63 %; Platelet Count 363 k/uL (150-450); Poikilocytosis Slight; RBC 5.12 m/uL (3.80-5.40); RDW 17.5 % (11.5-15.5); WBC 11.4 k/uL (3.8-10.6)
[2018-11-19 22:27] LABS: Amorphous Sediment,Urine Occasional /hpf; Appearance,Urine Cloudy (Clear); Bilirubin,Urine Negative (Negative); Blood,Urine Negative (Negative); Color,Urine Yellow; Glucose,Urine (UA) Negative (Negative); Ketones,Urine Negative (Negative); Leukocyte Esterase,Urine Moderate (Negative); Mucus,Urine Rare /hpf; Nitrite,Urine Negative (Negative); PH, Urine 7.5 (5.0-8.0); Protein,Urine Trace (Negative); RBC,Urine 21 /hpf (0-5); Specific Gravity,Urine 1.021 (1.001-1.035); Squamous Epithelial Cell,Urine 2 /hpf (0-4); Urobilinogen,Urine <2.0 mg/dL (<2.0); WBC,Urine 5 /hpf (0-5)
--- NOTE | 2018-11-19 23:06 | XR ---
EXAM: XR Chest, 2 Views CLINICAL HISTORY: ITS.REASON XR Reason: Chest Pain TECHNIQUE: Frontal and lateral views of the chest. COMPARISON: 07/03/18 chest radiography FINDINGS: Lungs: Unremarkable. No consolidation. Pleural space: Unremarkable. No pneumothorax. Heart: Unremarkable. No cardiomegaly. Mediastinum: Unremarkable. Bones/joints: Unremarkable. IMPRESSION: Normal chest x-rays.
--- NOTE | 2018-11-19 23:06 | ED ---
Chest Pain HPI - General Chief Complaint: Chest Pain Stated Complaint: Abd pain, chest pain, vomiting Time Seen by Provider: 11/19/18 20:02 Source: family Mode of arrival: wheelchair Limitations: no limitations - History of Present Illness Initial Comments: 28-year-old female patient presents to the emergency department today for evaluation of abdominal pain, chest pain, and hematemesis. Patient states she's been having symptoms for the last 3 days. Patient states she's had 10 episodes of bright red bloody emesis today. Denies any constipation or diarrhea. Denies any hematochezia or melena. States she is having left-sided chest pain with this and does feel short of breath. Patient states she has had history of upper GI bleed. States her last EGD was performed in April, they were unable to find a cause for the bleeding. She is taking Protonix 40 mg twice daily. She denies any fever or chills. Denies any recent travel or sick contacts. Denies any new medications. Patient denies any recent rash, back pain, numbness, tingling, dizziness, weakness, hematuria, dysuria, urinary urgency, urinary frequency, headache, visual changes, or any other complaints. - Related Data Home Medications Medication Instructions Recorded Confirmed ARIPiprazole [Abilify] 15 mg PO HS 06/21/17 10/20/18 Amitriptyline HCl [Elavil] 10 mg PO BID 01/20/18 10/20/18 Pantoprazole [Protonix] 40 mg PO BID 01/20/18 10/20/18 Pravastatin Sodium [Pravachol] 20 mg PO HS 01/20/18 10/20/18 Gabapentin 600 mg PO TID 07/03/18 10/20/18 Melatonin 10 mg PO HS 07/03/18 10/20/18 SUMAtriptan SUCCINATE [Imitrex] 50 mg PO BID PRN 07/03/18 10/20/18 Venlafaxine HCl [Effexor] 50 mg PO DAILY 07/03/18 10/20/18 Verapamil HCl [Verapamil ER] 180 mg PO HS 09/24/18 10/20/18 acetaZOLAMIDE [Diamox Sequels] 500 mg PO BID 09/24/18 10/20/18 Previous Rx's Medication Instructions Recorded Dicyclomine [Bentyl] 20 mg PO QID #20 tablet 07/15/18 Acetaminophen Tab [Tylenol] 650 mg PO Q6HR PRN tab 09/27/18 Cephalexin [Keflex] 500 mg PO Q6HR #40 cap 10/07/18 Ondansetron [Zofran ODT] 4 mg PO Q8HR PRN #15 tab 10/13/18 Allergies Allergy/AdvReac Type Severity Reaction Status Date / Time No Known Allergies Allergy Verified 11/19/18 19:47 Review of Systems ROS Statement: Those systems with pertinent positive or pertinent negative responses have been documented in the HPI. ROS Other: All systems not noted in ROS Statement are negative. EKG Findings - EKG Comments: EKG Findings:: EKG obtained at 2019 shows sinus tachycardia with a ventricular rate of 102, SD interval 136, QRS duration 88, QT 332, QTc 432. No evidence of ST elevation or depression. Past Medical History Past Medical History: Fibromyalgia, GERD/Reflux, GI Bleed, Hyperlipidemia Additional Past Medical History / Comment(s): gallstones, kidney stones, D&C, IBS, migraines, tachycardia, Martine- Guevara tear History of Any Multi-Drug Resistant Organisms: None Reported Past Surgical History: Section, Cholecystectomy, Tubal Ligation Additional Past Surgical History / Comment(s): neck biopsy (lymph node ) 4x c sect Past Anesthesia/Blood Transfusion Reactions: No Reported Reaction Past Psychological History: Anxiety, Bipolar, Depression, PTSD Smoking Status: Never smoker Past Alcohol Use History: Rare Past Drug Use History: Marijuana - Past Family History Mother Family Medical History: Diabetes Mellitus, Hyperlipidemia, Hypertension, Myocardial Infarction ([place]) Additional Family Medical History / Comment(s): [place] X 3 Father Family Medical History: Congestive Heart Failure (CHF), Hyperlipidemia, Hypertension, Myocardial Infarction ([place]) Additional Family Medical History / Comment(s): mi x 3 Son(s) Family Medical History: No Reported History General Exam Limitations: no limitations General appearance: alert, in no apparent distress, other (This is a well- developed, well-nourished adult female patient in no acute distress. Vital signs upon presentation are temperature 98.1F, pulse 112, respirations 16, blood pressure 122/79, pulse ox 98% on room air.) Eye exam: Present: normal appearance, PERRL, EOMI. Absent: scleral icterus, conjunctival injection, periorbital swelling ENT exam: Present: normal exam, normal oropharynx, mucous membranes moist Respiratory exam: Present: normal lung sounds bilaterally. Absent: respiratory distress, wheezes, rales, rhonchi, stridor Cardiovascular Exam: Present: regular rate, normal rhythm, normal heart sounds. Absent: systolic murmur, diastolic murmur, rubs, gallop, clicks GI/Abdominal exam: Present: soft, tenderness (Generalized abdominal tenderness), normal bowel sounds. Absent: distended, guarding, rebound, rigid Neurological exam: Present: alert, oriented X3, CN II-XII intact Psychiatric exam: Present: normal affect, normal mood Skin exam: Present: warm, dry, intact, normal color. Absent: rash Course Vital Signs 11/19/18 11/19/18 11/20/18 19:47 23:12 00:40 Temperature 98.1 F Pulse Rate 112 H 100 Respiratory 16 18 Rate Blood Pressure 122/79 129/67 92/45 O2 Sat by Pulse 98 99 Oximetry 11/20/18 01:31 Temperature 98.4 F Pulse Rate 99 Respiratory 18 Rate Blood Pressure 98/48 O2 Sat by Pulse 97 Oximetry Chest Pain MDM - [facility] RADIOLOGY: KUB x-ray of the abdomen is obtained. Report was reviewed in its entirety. Impression by Dr. Bates shows normal abdominal x-ray. Two-view x-ray of the chest is obtained. Report reviewed in its entirety. Impression by Dr. Bates shows normal chest x-rays. MDM: 28-year-old female patient with chronic abdominal pain and upper GI bleed presents to the emergency department today for evaluation of chest discomfort, abdominal discomfort and hematemesis. Patient reports she's had 10 episodes of bloody emesis today. Denies any dark or tarry stool. Physical examination revealed some mild abdominal tenderness. Lungs are clear to auscultation with good air movement. EKG showed normal sinus rhythm. Labs reviewed and were unremarkable. Hemoglobin is stable. Patient had no bloody emesis while in the emergency department. I did discuss findings and results with the patient. 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 Return parameters were discussed in detail. She verbalizes understanding and agrees with this plan. Disposition Clinical Impression: Abdominal pain, Hematemesis Disposition: HOME SELF-CARE Condition: Good Instructions (If sedation given, give patient instructions): Abdominal Pain (ED), Hematemesis (ED) Additional Instructions: Start with clear liquid diet and advance as tolerated. Continue home medications as directed. Follow-up with your primary care physician and your plant utilities engineer for recheck as soon as possible. Return to the emergency department immediately for any new, worsening, or concerning symptoms. Is patient prescribed a controlled substance at d/c from ED?: No Referrals: Olvin Keenan MD [Primary Care Provider] - 1-2 days Time of Disposition: 00:26
[2018-11-19 23:13] VITALS: RESP 18
--- NOTE | 2018-11-19 23:47 | XR ---
EXAM: XR Abdomen, 1 View CLINICAL HISTORY: ITS.REASON XR Reason: Pain TECHNIQUE: Frontal supine view of the abdomen/pelvis. COMPARISON: KUB 10/13/18 FINDINGS: Gastrointestinal tract: Unremarkable. No dilation. Bones/joints: Unremarkable. 2 metallic clips project over the pelvis. Prior cholecystectomy. IMPRESSION: Normal abdominal x-ray.
[2018-11-20] MEDS ORDERED: MORPHINE SULFATE 4 MG/ML SYRINGE IVP STA (00:21)
[2018-11-20] MEDS ORDERED: HYDROmorphone 0.5 MG/0.5 ML SYRINGE IVP STA (00:53)
[2018-11-20 01:33] VITALS: BP 98/48; PULSE 99; TEMP 98.4
== END 2018-11-20 01:38 | disposition home or self-care (01) ==
LOC: EC 19:46
DX: K92.0 Hematemesis (principal); R10.9 Unspecified abdominal pain; R07.89 Other chest pain; R06.02 Shortness of breath; M79.7 Fibromyalgia; K21.9 Gastro-esophageal reflux disease without esophagitis; E78.5 Hyperlipidemia, unspecified; K22.6 Gastro-esophageal laceration-hemorrhage syndrome; F31.9 Bipolar disorder, unspecified; F41.9 Anxiety disorder, unspecified; Z79.899 Other long term (current) drug therapy; Z87.19 Personal history of other diseases of the digestive system; Z86.69 Personal history of other diseases of the nervous system and sense organs; Z90.49 Acquired absence of other specified parts of digestive tract; Z53.8 Procedure and treatment not carried out for other reasons
CPT/HCPCS: 36415; 93005; 80053; 82150; 83690; 83735; 84484; 85025; 85610; 85730; 81001; 81025; 71046; 74018; 99285; 96374; 96375 ×3; 96361 ×3; J2270; J2405

== ENCOUNTER 2018-11-24 22:00 | Emergency (ER) | payer OTHER ==
[2018-11-24 22:11] VITALS: TEMP 98.7
--- NOTE | 2018-11-24 22:30 | ED ---
Chest Pain HPI - General Chief Complaint: Chest Pain Stated Complaint: Chest pain, shoulder pain Time Seen by Provider: 11/24/18 22:15 Source: patient Mode of arrival: ambulatory Limitations: no limitations - History of Present Illness MD Complaint: chest pain Onset/Timin -: minutes(s) Onset: during rest Pain Location: left chest Pain Radiation: LUE Severity: moderate Quality: aching, sharp Consistency: constant Improves With: nothing Worsens With: nothing Treatments Prior to Arrival: none - Related Data Home Medications Medication Instructions Recorded Confirmed Pantoprazole [Protonix] 40 mg PO BID 01/20/18 11/24/18 Pravastatin Sodium [Pravachol] 20 mg PO HS 01/20/18 11/24/18 Gabapentin 600 mg PO TID 07/03/18 11/24/18 SUMAtriptan SUCCINATE [Imitrex] 50 mg PO BID PRN 07/03/18 11/24/18 Verapamil HCl [Verapamil ER] 180 mg PO HS 09/24/18 11/24/18 acetaZOLAMIDE [Diamox Sequels] 500 mg PO BID 09/24/18 11/24/18 ARIPiprazole [Abilify] 20 mg PO HS 11/24/18 11/24/18 Amitriptyline HCl [Elavil] 20 mg PO BID 11/24/18 11/24/18 Hydrochlorothiazide [Hydrodiuril] 12.5 mg PO DAILY 11/24/18 11/24/18 LORazepam [Ativan] 1 mg PO HS 11/24/18 11/24/18 Previous Rx's Medication Instructions Recorded Dicyclomine [Bentyl] 20 mg PO QID #20 tablet 07/15/18 Naproxen 250 mg PO BID #20 tablet 11/25/18 Allergies Allergy/AdvReac Type Severity Reaction Status Date / Time No Known Allergies Allergy Verified 11/24/18 22:23 Review of Systems ROS Statement: Those systems with pertinent positive or pertinent negative responses have been documented in the HPI. ROS Other: All systems not noted in ROS Statement are negative. Constitutional: Denies: fever, chills Respiratory: Denies: cough, dyspnea Cardiovascular: Reports: as per HPI, chest pain. Denies: palpitations, orthopnea, edema, syncope Gastrointestinal: Denies: abdominal pain, vomiting, diarrhea Genitourinary: Denies: dysuria, hematuria Musculoskeletal: Denies: back pain Skin: Denies: rash Neurological: Denies: headache EKG Findings - EKG Results: EKG: interpreted by ERMD, sinus rhythm, normal axis, normal QRS, normal ST/T, no acute changes EKG shows: tachycardia (Rate proximally 125 bpm) Past Medical History Past Medical History: Fibromyalgia, GERD/Reflux, GI Bleed, Hyperlipidemia Additional Past Medical History / Comment(s): gallstones, kidney stones, D&C, IBS, migraines, tachycardia, Martine- Guevara tear History of Any Multi-Drug Resistant Organisms: None Reported Past Surgical History: Section, Cholecystectomy, Tubal Ligation Additional Past Surgical History / Comment(s): neck biopsy (lymph node ) 4x c sect Past Anesthesia/Blood Transfusion Reactions: No Reported Reaction Past Psychological History: Anxiety, Bipolar, Depression, PTSD Smoking Status: Never smoker Past Alcohol Use History: Rare Past Drug Use History: Marijuana - Past Family History Mother Family Medical History: Diabetes Mellitus, Hyperlipidemia, Hypertension, Myocardial Infarction ([place]) Additional Family Medical History / Comment(s): [place] X 3 Father Family Medical History: Congestive Heart Failure (CHF), Hyperlipidemia, Hypertension, Myocardial Infarction ([place]) Additional Family Medical History / Comment(s): mi x 3 Son(s) Family Medical History: No Reported History General Exam Limitations: no limitations General appearance: alert, in no apparent distress Head exam: Present: atraumatic, normocephalic Eye exam: Present: normal appearance. Absent: scleral icterus, conjunctival injection ENT exam: Present: normal oropharynx Neck exam: Present: normal inspection Respiratory exam: Present: normal lung sounds bilaterally, chest wall tenderness. Absent: respiratory distress, wheezes, rales, rhonchi, stridor, accessory muscle use Cardiovascular Exam: Present: regular rate, normal rhythm, normal heart sounds. Absent: systolic murmur, diastolic murmur, rubs, gallop GI/Abdominal exam: Present: soft. Absent: distended, tenderness, guarding, rebound, rigid Extremities exam: Present: normal inspection, normal capillary refill. Absent: pedal edema, calf tenderness Back exam: Absent: CVA tenderness (R), CVA tenderness (L) Neurological exam: Present: alert Skin exam: Present: warm, dry, intact, normal color. Absent: rash Course Vital Signs 11/24/18 11/25/18 22:09 01:00 Temperature 98.7 F Pulse Rate 127 H 103 H Respiratory 20 18 Rate Blood Pressure 114/72 117/67 O2 Sat by Pulse 99 96 Oximetry Disposition Clinical Impression: Chest wall pain Disposition: HOME SELF-CARE Condition: Good Instructions (If sedation given, give patient instructions): Chest Pain (ED) Prescriptions: Naproxen 250 mg PO BID #20 tablet Is patient prescribed a controlled substance at d/c from ED?: No Referrals: Olvin Keenan MD [Primary Care Provider] - 1-2 days
[2018-11-24] MEDS ORDERED: SODIUM CHLORIDE 0.9% 500 ML 500 ML IV STA (22:38)
[2018-11-24 23:19] LABS: Anisocytosis Slight; Basophils % (A) 0 %; Eosinophils # (A) 0.4 k/uL (0-0.7); Eosinophils % (A) 4 %; HCT 32.9 % (34.0-46.0); HGB 9.8 gm/dL (11.4-16.0); Hypochromasia Marked; Lymphocytes # (A) 2.6 k/uL (1.0-4.8); Lymphocytes % (A) 25 %; MCH 20.3 pg (25.0-35.0); MCHC 29.9 g/dL (31.0-37.0); MCV 67.8 fL (80.0-100.0); Mean Platelet Volume 7.1; Microcytosis Marked; Monocytes # (A) 0.4 k/uL (0-1.0); Monocytes % (A) 4 %; Neutrophils # (A) 6.8 k/uL (1.3-7.7); Neutrophils % (A) 66 %; Platelet Count 363 k/uL (150-450); Poikilocytosis Slight; RBC 4.85 m/uL (3.80-5.40); RDW 18.3 % (11.5-15.5); WBC 10.4 k/uL (3.8-10.6)
[2018-11-24 23:30] LABS: ALT 24 U/L (9-52); AST 20 U/L (14-36); African American GFR (CKD) >90 (>60 ml/min/1.73 sqM); Albumin 3.7 g/dL (3.5-5.0); Alkaline Phosphatase 140 U/L (38-126); Anion Gap 10 mmol/L; Blood Urea Nitrogen 14 mg/dL (7-17); Calcium 8.9 mg/dL (8.4-10.2); Carbon Dioxide 24 mmol/L (22-30); Chloride 110 mmol/L (98-107); Glucose 136 mg/dL (74-99); Potassium 3.6 mmol/L (3.5-5.1); Sodium 144 mmol/L (137-145); Total Bilirubin 0.3 mg/dL (0.2-1.3); Total Protein 6.7 g/dL (6.3-8.2)
--- NOTE | 2018-11-24 23:36 | XR ---
EXAM: XR Chest, 2 Views CLINICAL HISTORY: Chest Pain TECHNIQUE: Frontal and lateral views of the chest. COMPARISON: 11/19/2018 FINDINGS: Lungs: Unremarkable. No consolidation. Pleural space: Unremarkable. No pneumothorax. Heart: Unremarkable. No cardiomegaly. Mediastinum: Unremarkable. Bones/joints: No acute osseous abnormality. Tubes, lines and devices: Telemetry leads overlie the patient. IMPRESSION: No acute cardiopulmonary process.
[2018-11-25 01:01] VITALS: BP 117/67; PULSE 103; RESP 18
== END 2018-11-25 01:38 | disposition home or self-care (01) ==
LOC: EC 22:00
DX: R07.89 Other chest pain (principal); M25.512 Pain in left shoulder; M79.7 Fibromyalgia; K21.9 Gastro-esophageal reflux disease without esophagitis; E78.5 Hyperlipidemia, unspecified; K58.9 Irritable bowel syndrome, unspecified; F41.9 Anxiety disorder, unspecified; F31.9 Bipolar disorder, unspecified; Z87.442 Personal history of urinary calculi; Z90.49 Acquired absence of other specified parts of digestive tract; Z98.51 Tubal ligation status; Z98.890 Other specified postprocedural states; Z87.19 Personal history of other diseases of the digestive system
CPT/HCPCS: 36415; 71046; 80053; 83735; 84484; 85025; 85379; 93005; 96360; 99285

== ENCOUNTER 2018-11-30 21:50 | Emergency (ER) | payer OTHER ==
[2018-11-30 22:13] VITALS: RESP 20
[2018-11-30] MEDS ORDERED: PANTOPRAZOLE 40 MG/10 ML VIAL IVP STA (22:15)
[2018-11-30] MEDS ORDERED: SODIUM CHLORIDE 0.9% 1,000 ML IV STA (22:15)
--- NOTE | 2018-11-30 22:25 | ED ---
GI Bleed HPI - General Chief complaint: GI Bleed Stated complaint: Vomiting, blood in stool, abd pain Time Seen by Provider: 11/30/18 22:15 Source: patient Mode of arrival: wheelchair Limitations: no limitations - History of Present Illness Initial comments: 28-year-old female with chronic emesis and hematochezia presents emergency department for an episode of blood in vomit and in soft stool. Patient states about hour prior to presentation she had an episode of emesis with blood in it and episode of soft stool with blood as well. Patient denies any chest pain dizziness. She states she does have abdominal pain. She states all of her symptoms are very typical to what has been going on for the past 3 years of her life. She states she has a specialty appointment scheduled at [facility] next month. Patient states that she has no chest pain or shortness of breath. She denies additional episodes. Patient denies any lightheaded or racing heart sensation. Patient states there is no change in characteristic of the pain. Patient states she has had outpatient endoscopies as well as colonoscopies. Patient is unsure of her last computed tomography scan denies denied dysuria urgency frequency hematuria. Remaining review of systems negative upon arrival patient appears well no signs of acute distress. Heart rate mildly elevated remaining vital signs within acceptable limits. Patient hemodynamically stable. - Related Data Home Medications Medication Instructions Recorded Confirmed Pantoprazole [Protonix] 40 mg PO BID 01/20/18 11/30/18 Pravastatin Sodium [Pravachol] 20 mg PO HS 01/20/18 11/30/18 Gabapentin 600 mg PO TID 07/03/18 11/30/18 SUMAtriptan SUCCINATE [Imitrex] 50 mg PO BID PRN 07/03/18 11/30/18 Verapamil HCl [Verapamil ER] 180 mg PO HS 09/24/18 11/30/18 acetaZOLAMIDE [Diamox Sequels] 500 mg PO BID 09/24/18 11/30/18 ARIPiprazole [Abilify] 20 mg PO HS 11/24/18 11/30/18 Amitriptyline HCl [Elavil] 20 mg PO BID 11/24/18 11/30/18 Hydrochlorothiazide [Hydrodiuril] 12.5 mg PO DAILY 11/24/18 11/30/18 LORazepam [Ativan] 1 mg PO HS 11/24/18 11/30/18 Previous Rx's Medication Instructions Recorded Dicyclomine [Bentyl] 20 mg PO QID #20 tablet 07/15/18 Allergies Allergy/AdvReac Type Severity Reaction Status Date / Time No Known Allergies Allergy Verified 11/30/18 22:56 Review of Systems ROS Statement: Those systems with pertinent positive or pertinent negative responses have been documented in the HPI. ROS Other: All systems not noted in ROS Statement are negative. Past Medical History Past Medical History: Fibromyalgia, GERD/Reflux, GI Bleed, Hyperlipidemia Additional Past Medical History / Comment(s): gallstones, kidney stones, D&C, IBS, migraines, tachycardia, Martine- Guevara tear History of Any Multi-Drug Resistant Organisms: None Reported Past Surgical History: Section, Cholecystectomy, Tubal Ligation Additional Past Surgical History / Comment(s): neck biopsy (lymph node ) 4x c sect Past Anesthesia/Blood Transfusion Reactions: No Reported Reaction Past Psychological History: Anxiety, Bipolar, Depression, PTSD Smoking Status: Never smoker Past Alcohol Use History: Rare Past Drug Use History: Marijuana - Past Family History Mother Family Medical History: Diabetes Mellitus, Hyperlipidemia, Hypertension, Myocardial Infarction ([place]) Additional Family Medical History / Comment(s): [place] X 3 Father Family Medical History: Congestive Heart Failure (CHF), Hyperlipidemia, Hypertension, Myocardial Infarction ([place]) Additional Family Medical History / Comment(s): mi x 3 Son(s) Family Medical History: No Reported History General Exam - General Exam Comments Initial Comments: General: The patient is awake and alert, in no distress, and does not appear acutely ill. Eye: +3upils are equal, round and reactive to light, extra-ocular movements are intact. No nystagmus. There is normal conjunctiva bilaterally. No signs of icterus. Ears, nose, mouth and throat: There are moist mucous membranes and no oral lesions. Neck: The neck is supple, there is no tenderness or JVD. Cardiovascular: There is a regular rate and rhythm. No murmur, rub or gallop is appreciated. Respiratory: Lungs are clear to auscultation, respirations are non-labored, breath sounds are equal. No wheezes, stridor, rales, or rhonchi. Gastrointestinal: Soft, non-distended, diffusely tender abdomen without masses or organomegaly noted. There is no rebound or guarding present. No CVA tenderness. Bowel sounds are unremarkable. Musculoskeletal: Normal ROM, no tenderness. Strength 5/5. Sensation intact. Pulses equal bilaterally 2+. Neurological: A&O x 3. CN II-XII intact, There are no obvious motor or sensory deficits. Coordination appears grossly intact. Speech is normal. Skin: Skin is warm and dry and no rashes or lesions are noted. Psychiatric: Cooperative, appropriate mood & affect, normal judgment. Limitations: no limitations Course Vital Signs 11/30/18 12/01/18 22:11 01:31 Temperature 98.3 F 99 F Pulse Rate 106 H 101 H Respiratory 20 20 Rate Blood Pressure 143/82 122/65 O2 Sat by Pulse 97 99 Oximetry Medical Decision Making - Medical Decision Making Very well-appearing 28-year-old female who has history of chronic hematemesis and hematochezia. She states she has had extensive workup and outpatient evaluation with most recent appointment set up at the [facility] with this specialist. Patient states she had one episode of blood in her vomit and in her stool patient denies ulcerative colitis she denies any history of liver disease, aside from fatty liver. Patient appears well hematemesis stable. Hemoglobin stable. No additional episodes in the emergency department. Patient given Zofran. Chest x-ray within normal limits no pneumo mediastinum. No crepitus to palpation of the chest. Denies chest pain. At this time I feel given patient has had no additional episodes and is hemodynamically stable that she is stable for discharge with outpatient PCP and GI f/u. Return parameters including return for additional episodes was discussed with patient who is agreeable with plan and discharge at this time. Case discussed with Dr. Andrew kumar to d/c. - Lab Data Result diagrams: 11/30/18 17:55 11/30/18 17:55 Lab Results 11/30/18 11/30/18 11/30/18 Range/Units 17:55 17:55 17:55 WBC 9.3 (3.8-10.6) k/uL RBC 4.84 (3.80-5.40) m/uL Hgb 10.0 L (11.4-16.0) gm/dL Hct 33.1 L (34.0-46.0) % MCV 68.4 L (80.0-100.0) fL MCH 20.7 L (25.0-35.0) pg MCHC 30.2 L (31.0-37.0) g/dL RDW 18.1 H (11.5-15.5) % Plt Count 337 (150-450) k/uL Neutrophils % 61 % Lymphocytes % 28 % Monocytes % 5 % Eosinophils % 5 % Basophils % 1 % Neutrophils # 5.7 (1.3-7.7) k/uL Lymphocytes # 2.6 (1.0-4.8) k/uL Monocytes # 0.4 (0-1.0) k/uL Eosinophils # 0.4 (0-0.7) k/uL Basophils # 0.1 (0-0.2) k/uL Hypochromasia Marked Anisocytosis Slight Microcytosis Marked APTT (22.0-30.0) sec Sodium 143 (137-145) mmol/L Potassium 4.2 (3.5-5.1) mmol/L Chloride 103 (98-107) mmol/L Carbon Dioxide 30 (22-30) mmol/L Anion Gap 10 mmol/L BUN 13 (7-17) mg/dL Creatinine 0.78 (0.52-1.04) mg/dL Est GFR (CKD-EPI)AfAm >90 (>60 ml/min/1.73 sqM) Est GFR (CKD-EPI)NonAf >90 (>60 ml/min/1.73 sqM) Glucose 126 H (74-99) mg/dL Plasma Lactic Acid Darnell 1.6 (0.7-2.0) mmol/L Calcium 9.1 (8.4-10.2) mg/dL Total Bilirubin 0.4 (0.2-1.3) mg/dL AST 29 (14-36) U/L ALT 32 (9-52) U/L Alkaline Phosphatase 124 (38-126) U/L Troponin I (0.000-0.034) ng/mL Total Protein 6.7 (6.3-8.2) g/dL Albumin 3.8 (3.5-5.0) g/dL Lipase 89 (23-300) U/L Urine Color Urine Appearance (Clear) Urine pH (5.0-8.0) Ur Specific [place] (1.001-1.035) Urine Protein (Negative) Urine Glucose (UA) (Negative) Urine Ketones (Negative) Urine Blood (Negative) Urine Nitrite (Negative) Urine Bilirubin (Negative) Urine Urobilinogen (<2.0) mg/dL Ur Leukocyte Esterase (Negative) Urine RBC (0-5) /hpf Urine WBC (0-5) /hpf Ur Squamous Epith Cells (0-4) /hpf Amorphous Sediment (None) /hpf Urine Bacteria (None) /hpf Urine Mucus (None) /hpf Urine HCG, Qual (Not Detectd) 11/30/18 11/30/18 11/30/18 Range/Units 17:55 17:55 22:58 WBC (3.8-10.6) k/uL RBC (3.80-5.40) m/uL Hgb (11.4-16.0) gm/dL Hct (34.0-46.0) % MCV (80.0-100.0) fL MCH (25.0-35.0) pg MCHC (31.0-37.0) g/dL RDW (11.5-15.5) % Plt Count (150-450) k/uL Neutrophils % % Lymphocytes % % Monocytes % % Eosinophils % % Basophils % % Neutrophils # (1.3-7.7) k/uL Lymphocytes # (1.0-4.8) k/uL Monocytes # (0-1.0) k/uL Eosinophils # (0-0.7) k/uL Basophils # (0-0.2) k/uL Hypochromasia Anisocytosis Microcytosis APTT 22.5 (22.0-30.0) sec Sodium (137-145) mmol/L Potassium (3.5-5.1) mmol/L Chloride (98-107) mmol/L Carbon Dioxide (22-30) mmol/L Anion Gap mmol/L BUN (7-17) mg/dL Creatinine (0.52-1.04) mg/dL Est GFR (CKD-EPI)AfAm (>60 ml/min/1.73 sqM) Est GFR (CKD-EPI)NonAf (>60 ml/min/1.73 sqM) Glucose (74-99) mg/dL Plasma Lactic Acid Darnell (0.7-2.0) mmol/L Calcium (8.4-10.2) mg/dL Total Bilirubin (0.2-1.3) mg/dL AST (14-36) U/L ALT (9-52) U/L Alkaline Phosphatase (38-126) U/L Troponin I <0.012 (0.000-0.034) ng/mL Total Protein (6.3-8.2) g/dL Albumin (3.5-5.0) g/dL Lipase (23-300) U/L Urine Color Urine Appearance (Clear) Urine pH (5.0-8.0) Ur Specific [place] (1.001-1.035) Urine Protein (Negative) Urine Glucose (UA) (Negative) Urine Ketones (Negative) Urine Blood (Negative) Urine Nitrite (Negative) Urine Bilirubin (Negative) Urine Urobilinogen (<2.0) mg/dL Ur Leukocyte Esterase (Negative) Urine RBC (0-5) /hpf Urine WBC (0-5) /hpf Ur Squamous Epith Cells (0-4) /hpf Amorphous Sediment (None) /hpf Urine Bacteria (None) /hpf Urine Mucus (None) /hpf Urine HCG, Qual Not Detected (Not Detectd) 11/30/18 Range/Units 22:58 WBC (3.8-10.6) k/uL RBC (3.80-5.40) m/uL Hgb (11.4-16.0) gm/dL Hct (34.0-46.0) % MCV (80.0-100.0) fL MCH (25.0-35.0) pg MCHC (31.0-37.0) g/dL RDW (11.5-15.5) % Plt Count (150-450) k/uL Neutrophils % % Lymphocytes % % Monocytes % % Eosinophils % % Basophils % % Neutrophils # (1.3-7.7) k/uL Lymphocytes # (1.0-4.8) k/uL Monocytes # (0-1.0) k/uL Eosinophils # (0-0.7) k/uL Basophils # (0-0.2) k/uL Hypochromasia Anisocytosis Microcytosis APTT (22.0-30.0) sec Sodium (137-145) mmol/L Potassium (3.5-5.1) mmol/L Chloride (98-107) mmol/L Carbon Dioxide (22-30) mmol/L Anion Gap mmol/L BUN (7-17) mg/dL Creatinine (0.52-1.04) mg/dL Est GFR (CKD-EPI)AfAm (>60 ml/min/1.73 sqM) Est GFR (CKD-EPI)NonAf (>60 ml/min/1.73 sqM) Glucose (74-99) mg/dL Plasma Lactic Acid Darnell (0.7-2.0) mmol/L Calcium (8.4-10.2) mg/dL Total Bilirubin (0.2-1.3) mg/dL AST (14-36) U/L ALT (9-52) U/L Alkaline Phosphatase (38-126) U/L Troponin I (0.000-0.034) ng/mL Total Protein (6.3-8.2) g/dL Albumin (3.5-5.0) g/dL Lipase (23-300) U/L Urine Color Yellow Urine Appearance Cloudy H (Clear) Urine pH 7.0 (5.0-8.0) Ur Specific [place] 1.020 (1.001-1.035) Urine Protein Negative (Negative) Urine Glucose (UA) Negative (Negative) Urine Ketones Negative (Negative) Urine Blood Negative (Negative) Urine Nitrite Negative (Negative) Urine Bilirubin Negative (Negative) Urine Urobilinogen <2.0 (<2.0) mg/dL Ur Leukocyte Esterase Moderate H (Negative) Urine RBC 4 (0-5) /hpf Urine WBC 7 H (0-5) /hpf Ur Squamous Epith Cells 2 (0-4) /hpf Amorphous Sediment Rare H (None) /hpf Urine Bacteria Occasional H (None) /hpf Urine Mucus Occasional H (None) /hpf Urine HCG, Qual (Not Detectd) Disposition Clinical Impression: Hematemesis, Blood in stool, Abdominal pain Disposition: HOME SELF-CARE Condition: Good Instructions (If sedation given, give patient instructions): Gastrointestinal Bleeding (ED), Abdominal Pain (ED) Additional Instructions: Please use medication as discussed. Please follow-up with family doctor in the next 2 days, and your GI doctor as discussed. Please return to emergency room if the symptoms increase or worsen or for any other concerns-weakness, multiple episodes, chest pain. Is patient prescribed a controlled substance at d/c from ED?: No Referrals: Olvin Keenan MD [Primary Care Provider] - 1-2 days Time of Disposition: 01:30
[2018-11-30 22:40] LABS: Anisocytosis Slight; Basophils # (A) 0.1 k/uL (0-0.2); Basophils % (A) 1 %; Eosinophils # (A) 0.4 k/uL (0-0.7); Eosinophils % (A) 5 %; HCT 33.1 % (34.0-46.0); Hypochromasia Marked; Lymphocytes # (A) 2.6 k/uL (1.0-4.8); Lymphocytes % (A) 28 %; MCH 20.7 pg (25.0-35.0); MCHC 30.2 g/dL (31.0-37.0); MCV 68.4 fL (80.0-100.0); Mean Platelet Volume 6.9; Microcytosis Marked; Monocytes # (A) 0.4 k/uL (0-1.0); Monocytes % (A) 5 %; Neutrophils # (A) 5.7 k/uL (1.3-7.7); Neutrophils % (A) 61 %; Platelet Count 337 k/uL (150-450); RBC 4.84 m/uL (3.80-5.40); RDW 18.1 % (11.5-15.5); WBC 9.3 k/uL (3.8-10.6)
[2018-11-30 23:01] LABS: Chloride 103 mmol/L (98-107)
[2018-11-30 23:02] LABS: ALT 32 U/L (9-52); AST 29 U/L (14-36); African American GFR (CKD) >90 (>60 ml/min/1.73 sqM); Albumin 3.8 g/dL (3.5-5.0); Alkaline Phosphatase 124 U/L (38-126); Anion Gap 10 mmol/L; Blood Urea Nitrogen 13 mg/dL (7-17); Calcium 9.1 mg/dL (8.4-10.2); Carbon Dioxide 30 mmol/L (22-30); Glucose 126 mg/dL (74-99); Potassium 4.2 mmol/L (3.5-5.1); Sodium 143 mmol/L (137-145); Total Bilirubin 0.4 mg/dL (0.2-1.3); Total Protein 6.7 g/dL (6.3-8.2)
[2018-11-30] MEDS ORDERED: ONDANSETRON 4 MG/2 ML VIAL IVP STA (23:05)
[2018-11-30] MEDS ORDERED: MORPHINE SULFATE 4 MG/ML SYRINGE IVP STA (23:12)
[2018-11-30 23:28] LABS: Amorphous Sediment,Urine Rare /hpf; Appearance,Urine Cloudy (Clear); Bacteria,Urine Occasional /hpf; Bilirubin,Urine Negative (Negative); Blood,Urine Negative (Negative); Color,Urine Yellow; Glucose,Urine (UA) Negative (Negative); Ketones,Urine Negative (Negative); Leukocyte Esterase,Urine Moderate (Negative); Mucus,Urine Occasional /hpf; Nitrite,Urine Negative (Negative); Protein,Urine Negative (Negative); RBC,Urine 4 /hpf (0-5); Squamous Epithelial Cell,Urine 2 /hpf (0-4); Urobilinogen,Urine <2.0 mg/dL (<2.0); WBC,Urine 7 /hpf (0-5)
--- NOTE | 2018-11-30 23:44 | XR ---
EXAM: XR Chest, 2 Views CLINICAL HISTORY: ITS.REASON XR Reason: pain TECHNIQUE: Frontal and lateral views of the chest. COMPARISON: Chest radiography 11/24/18 FINDINGS: Lungs: Unremarkable. No consolidation. Pleural space: Unremarkable. No pneumothorax. Heart: Unremarkable. No cardiomegaly. Mediastinum: Unremarkable. Bones/joints: Unremarkable. IMPRESSION: Normal chest x-rays.
[2018-11-30] MEDS ORDERED: cefTRIAXone IN SWFI 1,000 MG/10 ML SYRINGE IVP STA (23:57)
--- NOTE | 2018-12-01 00:16 | CT ---
EXAM: CT Abdomen and Pelvis With Intravenous Contrast CLINICAL HISTORY: ITS.REASON CT Reason: pain TECHNIQUE: Axial computed tomography images of the abdomen and pelvis with intravenous contrast. CTDI is 49 mGy and DLP is 2257.7 mGy-cm. This CT exam was performed using one or more of the following dose reduction techniques: automated exposure control, adjustment of the mA and/or kV according to patient size, and/or use of iterative reconstruction technique. COMPARISON: No relevant prior studies available. FINDINGS: Lung bases: Unremarkable. No mass. No consolidation. ABDOMEN: Liver: Hepatic steatosis suggested. Gallbladder and bile ducts: Prior cholecystectomy. No ductal dilation. Pancreas: Unremarkable. No mass. No ductal dilation. Spleen: Unremarkable. No splenomegaly. Adrenals: Unremarkable. No mass. Kidneys and ureters: Nonobstructing calyceal calculus is located at the lower pole level of the right kidney measuring up to 7 mm. Small nonobstructing calyceal calculus at the upper pole of the left kidney. Stomach and bowel: See below. PELVIS: Appendix: No appendicitis, colitis, diverticulitis or bowel obstruction. Bladder: Bladder is decompressed. Reproductive: Bilateral tubal ligation. ABDOMEN and PELVIS: Intraperitoneal space: No adnexal mass. No free air or free fluid. Bones/joints: No acute fracture. No dislocation. Soft tissues: Unremarkable. Vasculature: Unremarkable. No abdominal aortic aneurysm. Lymph nodes: Unremarkable. No enlarged lymph nodes. IMPRESSION: Nonobstructing small right and left renal calyceal calculus. No other acute or inflammatory disease or bowel obstruction.
[2018-12-01 01:32] VITALS: BP 122/65; PULSE 101; TEMP 99
== END 2018-12-01 01:37 | disposition home or self-care (01) ==
LOC: EC 21:50
DX: K92.0 Hematemesis (principal); K92.1 Melena; R10.9 Unspecified abdominal pain; M79.7 Fibromyalgia; K21.9 Gastro-esophageal reflux disease without esophagitis; E78.5 Hyperlipidemia, unspecified; G43.909 Migraine, unspecified, not intractable, without status migrainosus; F41.9 Anxiety disorder, unspecified; F32.9 Major depressive disorder, single episode, unspecified; F43.10 Post-traumatic stress disorder, unspecified; Z87.19 Personal history of other diseases of the digestive system; Z90.49 Acquired absence of other specified parts of digestive tract; Z98.51 Tubal ligation status; Z79.899 Other long term (current) drug therapy
CPT/HCPCS: 36415; 80053; 83605; 83690; 84484; 85025; 85730; 81001; 81025; 71046; 74177; 99285; 96374; 96375 ×3; 96361; J2270; J2405; J0696; C9113; Q9967

== ENCOUNTER 2018-12-22 20:32 | Emergency (ER) | payer OTHER ==
[2018-12-22 20:53] VITALS: RESP 18
[2018-12-22] MEDS ORDERED: SODIUM CHLORIDE 0.9% 1,000 ML IV STA (21:25)
[2018-12-22] MEDS ORDERED: METOCLOPRAMIDE 5 MG/ML 2 ML VIAL IVP STA (21:25)
[2018-12-22] MEDS ORDERED: MAG HYDROX/AL HYDROX/SIMETH 30 ML, HYOSCYAMINE ELIXIR 10 ML, CIMETIDINE HCL 300 MG PO STA ×3 (21:26)
--- NOTE | 2018-12-22 21:30 | ED ---
Nausea/Vomiting/Diarrhea HPI - General Chief complaint: Nausea/Vomiting/Diarrhea Stated complaint: Vomiting blood, abd pain Time Seen by Provider: 12/22/18 21:12 Source: patient Mode of arrival: ambulatory Limitations: no limitations - History of Present Illness Initial comments: This patient is 28-year-old woman with history of chronic intermittent abdominal pains and vomiting who presents with a recurrence of symptoms. The patient states she had been at work tonight and developed nausea and vomiting and left upper quadrant abdominal pain. The patient states she did not have her Zofran at work so she presented here to have treatment. The patient does follow with Dr. Vyas and had seen her in October. The patient indicates the pain is left uppe r quadrant, sharp and burning, moderate intensity. She has not noted worsening or relieving factors. She had one episode of vomiting without any blood or coffee-ground material. MD complaint: nausea, vomiting, abdominal pain -: hour(s) Description of Vomiting: food contents Associated Abdominal Pain: Yes Location: LUQ Radiation: none Severity: moderate Quality: sharp, other (Burning) Consistency: constant Improves with: none Worsens with: none Associated Symptoms: nausea/vomiting - Related Data Home Medications Medication Instructions Recorded Confirmed Pantoprazole [Protonix] 40 mg PO BID 01/20/18 12/22/18 Pravastatin Sodium [Pravachol] 20 mg PO HS 01/20/18 12/22/18 Gabapentin 600 mg PO TID 07/03/18 12/22/18 SUMAtriptan SUCCINATE [Imitrex] 50 mg PO BID PRN 07/03/18 12/22/18 Verapamil HCl [Verapamil ER] 180 mg PO HS 09/24/18 12/22/18 acetaZOLAMIDE [Diamox Sequels] 500 mg PO BID 09/24/18 12/22/18 ARIPiprazole [Abilify] 20 mg PO HS 11/24/18 12/22/18 Amitriptyline HCl [Elavil] 20 mg PO BID 11/24/18 12/22/18 Hydrochlorothiazide [Hydrodiuril] 12.5 mg PO DAILY 11/24/18 12/22/18 LORazepam [Ativan] 1 mg PO HS 11/24/18 12/22/18 Previous Rx's Medication Instructions Recorded Dicyclomine [Bentyl] 20 mg PO QID #20 tablet 07/15/18 Allergies Allergy/AdvReac Type Severity Reaction Status Date / Time No Known Allergies Allergy Verified 12/22/18 21:36 Review of Systems ROS Statement: Those systems with pertinent positive or pertinent negative responses have been documented in the HPI. ROS Other: All systems not noted in ROS Statement are negative. Constitutional: Denies: fever, chills Respiratory: Denies: cough, dyspnea Cardiovascular: Denies: chest pain, palpitations Gastrointestinal: Reports: abdominal pain, nausea, vomiting. Denies: diarrhea, constipation, melena, hematochezia Genitourinary: Denies: dysuria, hematuria Musculoskeletal: Denies: back pain Skin: Denies: rash Neurological: Denies: headache Past Medical History Past Medical History: Fibromyalgia, GERD/Reflux, GI Bleed, Hyperlipidemia Additional Past Medical History / Comment(s): gallstones, kidney stones, D&C, IBS, migraines, tachycardia, Martine- Guevara tear History of Any Multi-Drug Resistant Organisms: None Reported Past Surgical History: Section, Cholecystectomy, Tubal Ligation Additional Past Surgical History / Comment(s): neck biopsy (lymph node ) 4x c sect Past Anesthesia/Blood Transfusion Reactions: No Reported Reaction Past Psychological History: Anxiety, Bipolar, Depression, PTSD Smoking Status: Never smoker Past Alcohol Use History: None Reported - Past Family History Mother Family Medical History: Diabetes Mellitus, Hyperlipidemia, Hypertension, Myocardial Infarction ([place]) Additional Family Medical History / Comment(s): [place] X 3 Father Family Medical History: Congestive Heart Failure (CHF), Hyperlipidemia, Hypertension, Myocardial Infarction ([place]) Additional Family Medical History / Comment(s): mi x 3 Son(s) Family Medical History: No Reported History General Exam Limitations: no limitations General appearance: alert, in no apparent distress Head exam: Present: atraumatic, normocephalic Eye exam: Present: normal appearance. Absent: scleral icterus, conjunctival injection ENT exam: Present: normal oropharynx Neck exam: Present: normal inspection Respiratory exam: Present: normal lung sounds bilaterally. Absent: respiratory distress, wheezes, rales, rhonchi, stridor Cardiovascular Exam: Present: regular rate (Heart rate is 96 at my exam), normal rhythm, normal heart sounds. Absent: systolic murmur, diastolic murmur, rubs, gallop GI/Abdominal exam: Present: soft, normal bowel sounds. Absent: distended, tenderness, guarding, rebound, rigid, mass, pulsatile mass, hernia Extremities exam: Present: normal inspection, normal capillary refill. Absent: pedal edema, calf tenderness Back exam: Present: normal inspection. Absent: CVA tenderness (R), CVA tenderness (L) Neurological exam: Present: alert Skin exam: Present: warm, dry, intact, normal color. Absent: rash Course Vital Signs 12/22/18 20:49 Temperature 98.9 F Pulse Rate 126 H Respiratory 18 Rate Blood Pressure 133/70 O2 Sat by Pulse 96 Oximetry Medical Decision Making - Lab Data Result diagrams: 12/22/18 21:37 12/22/18 21:37 Lab Results 12/22/18 12/22/18 Range/Units 21:37 21:37 WBC 8.1 (3.8-10.6) k/uL RBC 4.91 (3.80-5.40) m/uL Hgb 10.6 L (11.4-16.0) gm/dL Hct 34.6 (34.0-46.0) % MCV 70.5 L (80.0-100.0) fL MCH 21.5 L (25.0-35.0) pg MCHC 30.6 L (31.0-37.0) g/dL RDW 17.5 H (11.5-15.5) % Plt Count 324 (150-450) k/uL Neutrophils % 64 % Lymphocytes % 27 % Monocytes % 4 % Eosinophils % 2 % Basophils % 1 % Neutrophils # 5.2 (1.3-7.7) k/uL Lymphocytes # 2.2 (1.0-4.8) k/uL Monocytes # 0.4 (0-1.0) k/uL Eosinophils # 0.2 (0-0.7) k/uL Basophils # 0.0 (0-0.2) k/uL Hypochromasia Marked Anisocytosis Slight Microcytosis Marked Sodium 141 (137-145) mmol/L Potassium 3.8 (3.5-5.1) mmol/L Chloride 105 (98-107) mmol/L Carbon Dioxide 27 (22-30) mmol/L Anion Gap 9 mmol/L BUN 14 (7-17) mg/dL Creatinine 0.73 (0.52-1.04) mg/dL Est GFR (CKD-EPI)AfAm >90 (>60 ml/min/1.73 sqM) Est GFR (CKD-EPI)NonAf >90 (>60 ml/min/1.73 sqM) Glucose 106 H (74-99) mg/dL Calcium 9.2 (8.4-10.2) mg/dL Total Bilirubin 0.4 (0.2-1.3) mg/dL AST 27 (14-36) U/L ALT 45 (9-52) U/L Alkaline Phosphatase 117 (38-126) U/L Total Protein 6.7 (6.3-8.2) g/dL Albumin 3.9 (3.5-5.0) g/dL Amylase 34 (30-110) U/L Lipase 50 (23-300) U/L Disposition Clinical Impression: Abdominal pain, Vomiting Disposition: HOME SELF-CARE Condition: Good Instructions (If sedation given, give patient instructions): Acute Nausea and Vomiting (ED) Is patient prescribed a controlled substance at d/c from ED?: No Referrals: Olvin Keenan MD [Primary Care Provider] - 1-2 days Nohemi Vyas MD [STAFF PHYSICIAN] - 1-2 days
[2018-12-22 21:48] LABS: Anisocytosis Slight; Basophils % (A) 1 %; Eosinophils # (A) 0.2 k/uL (0-0.7); Eosinophils % (A) 2 %; HCT 34.6 % (34.0-46.0); HGB 10.6 gm/dL (11.4-16.0); Hypochromasia Marked; Lymphocytes # (A) 2.2 k/uL (1.0-4.8); Lymphocytes % (A) 27 %; MCH 21.5 pg (25.0-35.0); MCHC 30.6 g/dL (31.0-37.0); MCV 70.5 fL (80.0-100.0); Mean Platelet Volume 7.2; Microcytosis Marked; Monocytes # (A) 0.4 k/uL (0-1.0); Monocytes % (A) 4 %; Neutrophils # (A) 5.2 k/uL (1.3-7.7); Neutrophils % (A) 64 %; Platelet Count 324 k/uL (150-450); RBC 4.91 m/uL (3.80-5.40); RDW 17.5 % (11.5-15.5); WBC 8.1 k/uL (3.8-10.6)
[2018-12-22 21:59] LABS: ALT 45 U/L (9-52); AST 27 U/L (14-36); African American GFR (CKD) >90 (>60 ml/min/1.73 sqM); Albumin 3.9 g/dL (3.5-5.0); Alkaline Phosphatase 117 U/L (38-126); Amylase 34 U/L (30-110); Anion Gap 9 mmol/L; Blood Urea Nitrogen 14 mg/dL (7-17); Calcium 9.2 mg/dL (8.4-10.2); Carbon Dioxide 27 mmol/L (22-30); Chloride 105 mmol/L (98-107); Glucose 106 mg/dL (74-99); Potassium 3.8 mmol/L (3.5-5.1); Sodium 141 mmol/L (137-145); Total Bilirubin 0.4 mg/dL (0.2-1.3); Total Protein 6.7 g/dL (6.3-8.2)
[2018-12-23] MEDS ORDERED: DICYCLOMINE 10 MG/ML 2 ML AMP IM STA (00:06)
[2018-12-23 00:10] VITALS: BP 110/70; PULSE 95; TEMP 98.6
== END 2018-12-23 00:09 | disposition home or self-care (01) ==
LOC: EC 20:32
DX: R10.12 Left upper quadrant pain (principal); R11.2 Nausea with vomiting, unspecified; K21.9 Gastro-esophageal reflux disease without esophagitis; E78.5 Hyperlipidemia, unspecified; K58.9 Irritable bowel syndrome, unspecified; F31.9 Bipolar disorder, unspecified; F43.10 Post-traumatic stress disorder, unspecified; F41.9 Anxiety disorder, unspecified; Z79.899 Other long term (current) drug therapy
CPT/HCPCS: 36415; 80053; 82150; 83690; 85025; 99284; 96374; 96361; J2765

== ENCOUNTER 2018-12-24 18:33 | Emergency (ER) | payer OTHER ==
[2018-12-24] MEDS ORDERED: MORPHINE SULFATE 4 MG/ML SYRINGE IV STA (18:54)
[2018-12-24] MEDS ORDERED: SODIUM CHLORIDE 0.9% 500 ML 500 ML IV STA (18:54)
[2018-12-24] MEDS ORDERED: SODIUM CHLORIDE 0.9% 1,000 ML IV STA ×2 (18:54)
[2018-12-24] MEDS ORDERED: ONDANSETRON 4 MG/2 ML VIAL IVP STA (18:54)
[2018-12-24] MEDS ORDERED: PANTOPRAZOLE 40 MG/10 ML VIAL IVP STA (18:55)
--- NOTE | 2018-12-24 18:55 | ED ---
Chest Pain HPI - General Chief Complaint: Chest Pain Stated Complaint: CHEST PAIN, MITCHEL Time Seen by Provider: 12/24/18 18:49 Source: patient, EMS, RN notes reviewed, old records reviewed Mode of arrival: EMS Limitations: no limitations - History of Present Illness Initial Comments: This is a 28-year-old female the ER for evaluation. Patient resents multiple complaints today shortness of breath heart racing and chest pain. No abdominal pain no nausea vomiting no recent diarrhea no illness. No recent fevers. No travel history or known sick contacts patient does take medications but is recent change in medications denies drugs or alcohol. Patient symptoms happened at work she will need to take lunch she felt dizzy had no improvement after eati ludin then began to have chest pain and continued symptoms. At that point patient said he presents to the emergency room MD Complaint: chest pain -: minutes(s) Onset: during exertion Pain Location: substernal, left chest Pain Radiation: none Severity: moderate Severity scale (1-10): 4 Quality: tightness Consistency: constant Improves With: nothing Worsens With: nothing Anginal Symptoms: dyspnea Other Symptoms: palpitations Treatments Prior to Arrival: none - Related Data Home Medications Medication Instructions Recorded Confirmed Pantoprazole [Protonix] 40 mg PO BID 01/20/18 12/24/18 Pravastatin Sodium [Pravachol] 20 mg PO HS 01/20/18 12/24/18 Gabapentin 600 mg PO TID 07/03/18 12/24/18 SUMAtriptan SUCCINATE [Imitrex] 50 mg PO BID PRN 07/03/18 12/24/18 Verapamil HCl [Verapamil ER] 180 mg PO HS 09/24/18 12/24/18 acetaZOLAMIDE [Diamox Sequels] 500 mg PO BID 09/24/18 12/24/18 ARIPiprazole [Abilify] 20 mg PO HS 11/24/18 12/24/18 Amitriptyline HCl [Elavil] 10 mg PO BID 11/24/18 12/24/18 Hydrochlorothiazide [Hydrodiuril] 12.5 mg PO DAILY 11/24/18 12/24/18 LORazepam [Ativan] 1 mg PO HS 11/24/18 12/24/18 Previous Rx's Medication Instructions Recorded Dicyclomine [Bentyl] 20 mg PO QID #20 tablet 07/15/18 Allergies Allergy/AdvReac Type Severity Reaction Status Date / Time No Known Allergies Allergy Verified 12/24/18 19:48 Review of Systems ROS Statement: Those systems with pertinent positive or pertinent negative responses have been documented in the HPI. ROS Other: All systems not noted in ROS Statement are negative. EKG Findings - EKG Comments: EKG Findings:: EKG shows sinus tachycardia rate of 170, MO 136, QRS 84, QTc 488 Past Medical History Past Medical History: Fibromyalgia, GERD/Reflux, GI Bleed, Hyperlipidemia Additional Past Medical History / Comment(s): gallstones, kidney stones, D&C, IBS, migraines, tachycardia, Martine- Guevara tear History of Any Multi-Drug Resistant Organisms: None Reported Past Surgical History: Section, Cholecystectomy, Tubal Ligation Additional Past Surgical History / Comment(s): neck biopsy (lymph node ) 4x c sect Past Anesthesia/Blood Transfusion Reactions: No Reported Reaction Past Psychological History: Anxiety, Bipolar, Depression, PTSD Smoking Status: Never smoker Past Alcohol Use History: None Reported - Past Family History Mother Family Medical History: Diabetes Mellitus, Hyperlipidemia, Hypertension, Myocardial Infarction ([place]) Additional Family Medical History / Comment(s): [place] X 3 Father Family Medical History: Congestive Heart Failure (CHF), Hyperlipidemia, Hypertension, Myocardial Infarction ([place]) Additional Family Medical History / Comment(s): mi x 3 Son(s) Family Medical History: No Reported History General Exam Limitations: no limitations General appearance: alert, in no apparent distress, anxious, obese Head exam: Present: atraumatic, normocephalic, normal inspection Eye exam: Present: normal appearance, PERRL, EOMI. Absent: scleral icterus, conjunctival injection, periorbital swelling ENT exam: Present: normal exam, mucous membranes moist Neck exam: Present: normal inspection. Absent: tenderness, meningismus, lymphadenopathy Respiratory exam: Present: normal lung sounds bilaterally. Absent: respiratory distress, wheezes, rales, rhonchi, stridor Cardiovascular Exam: Present: normal rhythm, tachycardia, normal heart sounds. Absent: systolic murmur, diastolic murmur, rubs, gallop, clicks GI/Abdominal exam: Present: soft, normal bowel sounds. Absent: distended, tenderness, guarding, rebound, rigid Extremities exam: Present: normal inspection, full ROM, normal capillary refill. Absent: tenderness, pedal edema, joint swelling, calf tenderness Back exam: Present: normal inspection Neurological exam: Present: alert, oriented X3, CN II-XII intact Psychiatric exam: Present: normal affect, normal mood Skin exam: Present: warm, dry, intact, normal color. Absent: rash Course Vital Signs 12/24/18 12/24/18 18:35 21:01 Temperature 98.4 F 98.2 F Pulse Rate 126 H 102 H Respiratory 20 18 Rate Blood Pressure 131/77 104/60 O2 Sat by Pulse 100 99 Oximetry - Reevaluation(s) Reevaluation #1: 12/24/18 19:08 Medical records reviewed Reevaluation #2: 12/24/18 20:35 Patient symptoms are currently improving significantly. No current chest pain or shortness of breath Chest Pain MDM - MDM 28 female the ER for evaluation, chest pain occasional shortness of breath. Patient has negative CT negative x-ray negative labwork, tachycardic but is improving. Patient can be discharged home Disposition Clinical Impression: Chest pain, Tachycardia Disposition: HOME SELF-CARE Condition: Good Instructions (If sedation given, give patient instructions): Chest Pain (ED) Is patient prescribed a controlled substance at d/c from ED?: No Referrals: Olvin Keenan MD [Primary Care Provider] - 1-2 days
--- NOTE | 2018-12-24 19:24 | XR ---
EXAMINATION TYPE: XR chest 2V DATE OF EXAM: 12/24/2018 COMPARISON: 11/30/2018 HISTORY: Chest pain TECHNIQUE: Frontal and lateral views of the chest are obtained. FINDINGS: Heart and mediastinum are normal. Lungs are clear. Diaphragm is normal. Bony thorax appear s normal. IMPRESSION: Normal chest. No change.
[2018-12-24 19:32] LABS: ALT 33 U/L (9-52); AST 39 U/L (14-36); African American GFR (CKD) >90 (>60 ml/min/1.73 sqM); Albumin 3.9 g/dL (3.5-5.0); Alkaline Phosphatase 103 U/L (38-126); Anion Gap 10 mmol/L; Blood Urea Nitrogen 15 mg/dL (7-17); Calcium 8.8 mg/dL (8.4-10.2); Carbon Dioxide 24 mmol/L (22-30); Chloride 106 mmol/L (98-107); Creatine Kinase 56 U/L (30-135); Glucose 185 mg/dL (74-99); Magnesium 1.9 mg/dL (1.6-2.3); Sodium 140 mmol/L (137-145); Total Bilirubin 0.7 mg/dL (0.2-1.3); Total Protein 6.7 g/dL (6.3-8.2)
[2018-12-24 19:35] LABS: D-Dimer 0.31 mg/L FEU (<0.60); INR 0.9 (<1.2); Partial Thromboplastin Time 23.7 sec (22.0-30.0); Potassium 4.4 mmol/L (3.5-5.1); Prothrombin Time 9.9 sec (9.0-12.0)
[2018-12-24 19:56] LABS: Anisocytosis Slight; Basophils % (A) 0 %; Eosinophils # (A) 0.2 k/uL (0-0.7); Eosinophils % (A) 2 %; HCT 34.6 % (34.0-46.0); HGB 10.5 gm/dL (11.4-16.0); Hypochromasia Marked; Lymphocytes # (A) 1.8 k/uL (1.0-4.8); Lymphocytes % (A) 21 %; MCH 21.8 pg (25.0-35.0); MCHC 30.2 g/dL (31.0-37.0); MCV 72.1 fL (80.0-100.0); Mean Platelet Volume 7.5; Microcytosis Moderate; Monocytes # (A) 0.3 k/uL (0-1.0); Monocytes % (A) 4 %; Neutrophils # (A) 6.3 k/uL (1.3-7.7); Neutrophils % (A) 73 %; Platelet Count 295 k/uL (150-450); RBC 4.81 m/uL (3.80-5.40); RDW 17.4 % (11.5-15.5); WBC 8.7 k/uL (3.8-10.6)
--- NOTE | 2018-12-24 20:31 | CT ---
EXAMINATION TYPE: CT angio chest DATE OF EXAM: 12/24/2018 8:09 PM COMPARISON: None HISTORY: Chest pain. MITCHEL. PT denies any cardiac/resp. hx CT DLP: 1061.2 mGycm Automated exposure control for dose reduction was used. CONTRAST: CTA scan of the thorax is performed with IV Contrast, patient injected with 100 mL of Isovue 370, pul monary embolism protocol. There are 3-D post processed images.. FINDINGS: Lungs are clear of consolidation. There is no evidence of a pulmonary mass. There is no mediastinal a denopathy. Thoracic aorta is intact without sign of aneurysm or dissection. There are no hilar masses . There is normal contrast opacification of the pulmonary arteries. I see no filling defects. The bon y thorax is intact. There is no pleural effusion. Upper abdominal soft tissues are intact. There is c holecystectomy. IMPRESSION: NEGATIVE EXAM. NO EVIDENCE OF PULMONARY EMBOLISM.
[2018-12-24 21:02] VITALS: BP 104/60; PULSE 102; RESP 18; TEMP 98.2
== END 2018-12-24 21:25 | disposition home or self-care (01) ==
LOC: EC 18:33
DX: R07.9 Chest pain, unspecified (principal); R00.0 Tachycardia, unspecified; K21.9 Gastro-esophageal reflux disease without esophagitis; E78.5 Hyperlipidemia, unspecified; M79.7 Fibromyalgia; K58.9 Irritable bowel syndrome, unspecified; F31.9 Bipolar disorder, unspecified; F41.9 Anxiety disorder, unspecified; Z79.899 Other long term (current) drug therapy
CPT/HCPCS: 36415; 93005; 85379; 83880; 80053; 84443; 82550; 83690; 83735; 84484; 85025; 85610; 85730; 71046; 71275; 99285; 96374; 96375 ×2; 96361 ×2; J2270; J2405; C9113; Q9967

== ENCOUNTER 2019-01-02 17:33 | Emergency (ER) | payer OTHER ==
[2019-01-02 18:06] LABS: Anisocytosis Slight; Basophils % (A) 1 %; Eosinophils # (A) 0.2 k/uL (0-0.7); Eosinophils % (A) 3 %; HCT 34.6 % (34.0-46.0); HGB 10.6 gm/dL (11.4-16.0); Hypochromasia Marked; Lymphocytes # (A) 1.9 k/uL (1.0-4.8); Lymphocytes % (A) 26 %; MCH 21.8 pg (25.0-35.0); MCHC 30.8 g/dL (31.0-37.0); MCV 70.9 fL (80.0-100.0); Mean Platelet Volume 6.9; Microcytosis Moderate; Monocytes # (A) 0.2 k/uL (0-1.0); Monocytes % (A) 3 %; Neutrophils # (A) 4.7 k/uL (1.3-7.7); Neutrophils % (A) 66 %; Platelet Count 314 k/uL (150-450); RBC 4.88 m/uL (3.80-5.40); RDW 17.5 % (11.5-15.5); WBC 7.1 k/uL (3.8-10.6)
[2019-01-02 18:14] LABS: ALT 46 U/L (9-52); AST 30 U/L (14-36); African American GFR (CKD) >90 (>60 ml/min/1.73 sqM); Albumin 3.7 g/dL (3.5-5.0); Alkaline Phosphatase 121 U/L (38-126); Amylase 76 U/L (30-110); Anion Gap 7 mmol/L; Blood Urea Nitrogen 13 mg/dL (7-17); Calcium 8.9 mg/dL (8.4-10.2); Carbon Dioxide 27 mmol/L (22-30); Chloride 109 mmol/L (98-107); Glucose 124 mg/dL (74-99); Potassium 3.9 mmol/L (3.5-5.1); Sodium 143 mmol/L (137-145); Total Bilirubin 0.4 mg/dL (0.2-1.3); Total Protein 6.4 g/dL (6.3-8.2)
[2019-01-02 18:16] LABS: Appearance,Urine Cloudy (Clear); Bacteria,Urine Rare /hpf; Bilirubin,Urine Negative (Negative); Blood,Urine Negative (Negative); Color,Urine Yellow; Glucose,Urine (UA) Negative (Negative); Ketones,Urine Negative (Negative); Leukocyte Esterase,Urine Large (Negative); Mucus,Urine Occasional /hpf; Nitrite,Urine Negative (Negative); PH, Urine 7.5 (5.0-8.0); Protein,Urine Trace (Negative); Squamous Epithelial Cell,Urine 8 /hpf (0-4); Urobilinogen,Urine <2.0 mg/dL (<2.0); WBC,Urine 29 /hpf (0-5)
--- NOTE | 2019-01-02 18:35 | XR ---
EXAMINATION TYPE: XR KUB DATE OF EXAM: 01/02/2019 COMPARISON: 11/19/2018 HISTORY: Abdominal pain TECHNIQUE: 2 views upright FINDINGS: Bowel gas pattern is normal. There is no sign of intestinal obstruction or pneumoperitoneum . Fecal pattern is normal. There are clips from tubal ligation. There is faint 5 mm calcification ove r the right kidney. There are clips from cholecystectomy. Lung bases are clear. IMPRESSION: Nonacute abdomen. Possible right renal calculus unchanged.
[2019-01-02] MEDS ORDERED: MAG HYDROX/AL HYDROX/SIMETH 30 ML, HYOSCYAMINE ELIXIR 10 ML, CIMETIDINE HCL 300 MG, LID... PO STA ×4 (18:50)
[2019-01-02] MEDS ORDERED: SODIUM CHLORIDE 0.9% 1,000 ML IV ONE (18:50)
[2019-01-02] MEDS ORDERED: ONDANSETRON 4 MG/2 ML VIAL IVP STA (18:50)
--- NOTE | 2019-01-02 19:02 | ED ---
Abdominal Pain HPI - General Chief Complaint: Abdominal Pain Stated Complaint: nausea, vomiting, abdominal pain Time Seen by Provider: 01/02/19 17:46 Source: patient Mode of arrival: ambulatory Limitations: no limitations - History of Present Illness Initial Comments: Yeimy is a 28-year-old female with extensive past medical history most significant for chronic abdominal pain and episodes of hematemesis. Patient follows with gastroenterology she is currently on Protonix and his been referred to the [facility] for further evaluation as her workup thus far has not revealed any acute pathology to explain her chronic abdominal pain. Patient presents the emergency Department today with complaints of one hour of nausea, 3-4 episodes of vomiting which were streaked with bright red blood. Patient denies any fevers chills chest pain or shortness of breath. She reports this is similar to previous episodes. She reports she has been compliant with her Protonix. - Related Data Home Medications Medication Instructions Recorded Confirmed Pantoprazole [Protonix] 40 mg PO BID 01/20/18 01/02/19 Pravastatin Sodium [Pravachol] 20 mg PO HS 01/20/18 01/02/19 Gabapentin 600 mg PO TID 07/03/18 01/02/19 SUMAtriptan SUCCINATE [Imitrex] 50 mg PO BID PRN 07/03/18 01/02/19 Verapamil HCl [Verapamil ER] 180 mg PO HS 09/24/18 01/02/19 acetaZOLAMIDE [Diamox Sequels] 500 mg PO BID 09/24/18 01/02/19 ARIPiprazole [Abilify] 20 mg PO HS 11/24/18 01/02/19 Amitriptyline HCl [Elavil] 10 mg PO BID 11/24/18 01/02/19 Hydrochlorothiazide [Hydrodiuril] 12.5 mg PO DAILY 11/24/18 01/02/19 LORazepam [Ativan] 1 mg PO HS 11/24/18 01/02/19 Previous Rx's Medication Instructions Recorded Dicyclomine [Bentyl] 20 mg PO QID #20 tablet 07/15/18 Allergies Allergy/AdvReac Type Severity Reaction Status Date / Time No Known Allergies Allergy Verified 01/02/19 17:57 Review of Systems ROS Statement: Those systems with pertinent positive or pertinent negative responses have been documented in the HPI. ROS Other: All systems not noted in ROS Statement are negative. Past Medical History Past Medical History: Fibromyalgia, GERD/Reflux, GI Bleed, Hyperlipidemia Additional Past Medical History / Comment(s): gallstones, kidney stones, D&C, IBS, migraines, tachycardia, Martine- Guevara tear History of Any Multi-Drug Resistant Organisms: None Reported Past Surgical History: Section, Cholecystectomy, Tubal Ligation Additional Past Surgical History / Comment(s): neck biopsy (lymph node ) 4x c sect Past Anesthesia/Blood Transfusion Reactions: No Reported Reaction Past Psychological History: Anxiety, Bipolar, Depression, PTSD Smoking Status: Never smoker Past Alcohol Use History: None Reported Past Drug Use History: None Reported - Past Family History Mother Family Medical History: Diabetes Mellitus, Hyperlipidemia, Hypertension, Myocardial Infarction ([place]) Additional Family Medical History / Comment(s): [place] X 3 Father Family Medical History: Congestive Heart Failure (CHF), Hyperlipidemia, Hypertension, Myocardial Infarction ([place]) Additional Family Medical History / Comment(s): mi x 3 Son(s) Family Medical History: No Reported History General Exam - General Exam Comments Initial Comments: Physical Exam GENERAL: obese female in no acute distress HENT: Normocephalic, Atraumatic. EYES: PERRL, EOMI No conjunctival pallor PULMONARY: Unlabored respirations. No audible rales rhonchi or wheezing was noted. CARDIOVASCULAR: There is a regular rate and rhythm without any murmurs gallops or rubs. ABDOMEN: Soft and nontender with normal bowel sounds. SKIN: Skin is clear with no lesions or rashes and otherwise unremarkable. : Deferred NEUROLOGIC: Patient is alert and oriented x3. Moving all extremities spontaneously MUSCULOSKELETAL: Normal extremities with adequate strength and full range of motion. No lower extremity swelling or edema. No calf tenderness. PSYCHIATRIC: Normal psychiatric evaluation. Limitations: no limitations Course Vital Signs 01/02/19 01/02/19 01/02/19 17:34 19:35 21:11 Temperature 98.4 F 98.2 F Pulse Rate 105 H 94 89 Respiratory 18 20 20 Rate Blood Pressure 147/90 134/72 132/70 O2 Sat by Pulse 99 100 100 Oximetry Medical Decision Making - Medical Decision Making Patient was seen and evaluated she was obtained from the patient and review of her medical record This is a 28-year-old female chronic abdominal pain presenting with exacerbation of her chronic abdominal pain and 3 episodes of vomiting Labs and imaging were ordered Lab values are baseline for the patient Urinalysis with gross contamination, patient not have any lower urinary tract symptoms The patient was observed for 2 hours she had no further nausea or vomiting. This time patient is stable for discharge home and follow-up with her GI. - Lab Data Result diagrams: 01/02/19 17:49 01/02/19 17:49 Lab Results 01/02/19 01/02/19 01/02/19 Range/Units 17:49 17:49 17:58 WBC 7.1 (3.8-10.6) k/uL RBC 4.88 (3.80-5.40) m/uL Hgb 10.6 L (11.4-16.0) gm/dL Hct 34.6 (34.0-46.0) % MCV 70.9 L (80.0-100.0) fL MCH 21.8 L (25.0-35.0) pg MCHC 30.8 L (31.0-37.0) g/dL RDW 17.5 H (11.5-15.5) % Plt Count 314 (150-450) k/uL Neutrophils % 66 % Lymphocytes % 26 % Monocytes % 3 % Eosinophils % 3 % Basophils % 1 % Neutrophils # 4.7 (1.3-7.7) k/uL Lymphocytes # 1.9 (1.0-4.8) k/uL Monocytes # 0.2 (0-1.0) k/uL Eosinophils # 0.2 (0-0.7) k/uL Basophils # 0.0 (0-0.2) k/uL Hypochromasia Marked Anisocytosis Slight Microcytosis Moderate Sodium 143 (137-145) mmol/L Potassium 3.9 (3.5-5.1) mmol/L Chloride 109 H (98-107) mmol/L Carbon Dioxide 27 (22-30) mmol/L Anion Gap 7 mmol/L BUN 13 (7-17) mg/dL Creatinine 0.83 (0.52-1.04) mg/dL Est GFR (CKD-EPI)AfAm >90 (>60 ml/min/1.73 sqM) Est GFR (CKD-EPI)NonAf >90 (>60 ml/min/1.73 sqM) Glucose 124 H (74-99) mg/dL Calcium 8.9 (8.4-10.2) mg/dL Total Bilirubin 0.4 (0.2-1.3) mg/dL AST 30 (14-36) U/L ALT 46 (9-52) U/L Alkaline Phosphatase 121 (38-126) U/L Total Protein 6.4 (6.3-8.2) g/dL Albumin 3.7 (3.5-5.0) g/dL Amylase 76 (30-110) U/L Lipase 69 (23-300) U/L Urine Color Urine Appearance (Clear) Urine pH (5.0-8.0) Ur Specific Jacob (1.001-1.035) Urine Protein (Negative) Urine Glucose (UA) (Negative) Urine Ketones (Negative) Urine Blood (Negative) Urine Nitrite (Negative) Urine Bilirubin (Negative) Urine Urobilinogen (<2.0) mg/dL Ur Leukocyte Esterase (Negative) Urine WBC (0-5) /hpf Ur Squamous Epith Cells (0-4) /hpf Urine Bacteria (None) /hpf Urine Mucus (None) /hpf Urine HCG, Qual Not Detected (Not Detectd) 01/02/19 Range/Units 17:58 WBC (3.8-10.6) k/uL RBC (3.80-5.40) m/uL Hgb (11.4-16.0) gm/dL Hct (34.0-46.0) % MCV (80.0-100.0) fL MCH (25.0-35.0) pg MCHC (31.0-37.0) g/dL RDW (11.5-15.5) % Plt Count (150-450) k/uL Neutrophils % % Lymphocytes % % Monocytes % % Eosinophils % % Basophils % % Neutrophils # (1.3-7.7) k/uL Lymphocytes # (1.0-4.8) k/uL Monocytes # (0-1.0) k/uL Eosinophils # (0-0.7) k/uL Basophils # (0-0.2) k/uL Hypochromasia Anisocytosis Microcytosis Sodium (137-145) mmol/L Potassium (3.5-5.1) mmol/L Chloride (98-107) mmol/L Carbon Dioxide (22-30) mmol/L Anion Gap mmol/L BUN (7-17) mg/dL Creatinine (0.52-1.04) mg/dL Est GFR (CKD-EPI)AfAm (>60 ml/min/1.73 sqM) Est GFR (CKD-EPI)NonAf (>60 ml/min/1.73 sqM) Glucose (74-99) mg/dL Calcium (8.4-10.2) mg/dL Total Bilirubin (0.2-1.3) mg/dL AST (14-36) U/L ALT (9-52) U/L Alkaline Phosphatase (38-126) U/L Total Protein (6.3-8.2) g/dL Albumin (3.5-5.0) g/dL Amylase (30-110) U/L Lipase (23-300) U/L Urine Color Yellow Urine Appearance Cloudy H (Clear) Urine pH 7.5 (5.0-8.0) Ur Specific Jacob 1.020 (1.001-1.035) Urine Protein Trace H (Negative) Urine Glucose (UA) Negative (Negative) Urine Ketones Negative (Negative) Urine Blood Negative (Negative) Urine Nitrite Negative (Negative) Urine Bilirubin Negative (Negative) Urine Urobilinogen <2.0 (<2.0) mg/dL Ur Leukocyte Esterase Large H (Negative) Urine WBC 29 H (0-5) /hpf Ur Squamous Epith Cells 8 H (0-4) /hpf Urine Bacteria Rare H (None) /hpf Urine Mucus Occasional H (None) /hpf Urine HCG, Qual (Not Detectd) Disposition Clinical Impression: Abdominal pain, GERD (gastroesophageal reflux disease) Disposition: HOME SELF-CARE Condition: Stable Instructions (If sedation given, give patient instructions): Abdominal Pain (ED) Is patient prescribed a controlled substance at d/c from ED?: No Referrals: Olvin Keenan MD [Primary Care Provider] - 1-2 days
[2019-01-02 19:47] VITALS: RESP 20
[2019-01-02 21:12] VITALS: BP 132/70; PULSE 89; TEMP 98.2
== END 2019-01-02 21:11 | disposition home or self-care (01) ==
LOC: EC 17:33
DX: K21.9 Gastro-esophageal reflux disease without esophagitis (principal); G89.29 Other chronic pain; R10.30 Lower abdominal pain, unspecified; K92.0 Hematemesis; M79.7 Fibromyalgia; E78.5 Hyperlipidemia, unspecified; F41.9 Anxiety disorder, unspecified; F32.9 Major depressive disorder, single episode, unspecified; F43.10 Post-traumatic stress disorder, unspecified; Z87.19 Personal history of other diseases of the digestive system; Z87.442 Personal history of urinary calculi; Z90.49 Acquired absence of other specified parts of digestive tract; Z98.51 Tubal ligation status; Z79.899 Other long term (current) drug therapy
CPT/HCPCS: 36415; 80053; 82150; 83690; 85025; 81001; 81025; 74018; 99284; 96374; 96361; J2405

== ENCOUNTER 2019-03-21 14:39 | Emergency (ER) | payer OTHER ==
[2019-03-21 14:44] VITALS: RESP 18; TEMP 98.7
[2019-03-21] MEDS ORDERED: SODIUM CHLORIDE 0.9% 1,000 ML IV STA (15:03)
--- NOTE | 2019-03-21 15:06 | ED ---
General Adult HPI - General Chief complaint: Dizziness Stated complaint: Near Syncope Time Seen by Provider: 03/21/19 14:51 Source: patient, RN notes reviewed Mode of arrival: ambulatory Limitations: no limitations - History of Present Illness Initial comments: 29-year-old female with a past medical history of fibromyalgia, GERD, hyperlipidemia presents to the emergency department for a chief complaint of lightheadedness. 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 She did not lose consciousness. States she still does feel a little bit lightheaded. Denies headache. Denies chest pain or shortness of breath. Denies any other associated symptoms. Denies nausea or vomiting. Denies diaphoresis.Patient has no other complaints at this time including shortness of breath, chest pain, abdominal pain, nausea or vomiting, headache, or visual changes. - Related Data Home Medications Medication Instructions Recorded Confirmed Pantoprazole [Protonix] 40 mg PO BID 01/20/18 01/02/19 Pravastatin Sodium [Pravachol] 20 mg PO HS 01/20/18 01/02/19 Gabapentin 600 mg PO TID 07/03/18 01/02/19 SUMAtriptan SUCCINATE [Imitrex] 50 mg PO BID PRN 07/03/18 01/02/19 Verapamil HCl [Verapamil ER] 180 mg PO HS 09/24/18 01/02/19 acetaZOLAMIDE [Diamox Sequels] 500 mg PO BID 09/24/18 01/02/19 ARIPiprazole [Abilify] 20 mg PO HS 11/24/18 01/02/19 Amitriptyline HCl [Elavil] 10 mg PO BID 11/24/18 01/02/19 Hydrochlorothiazide [Hydrodiuril] 12.5 mg PO DAILY 11/24/18 01/02/19 LORazepam [Ativan] 1 mg PO HS 11/24/18 01/02/19 Previous Rx's Medication Instructions Recorded Dicyclomine [Bentyl] 20 mg PO QID #20 tablet 07/15/18 Allergies Allergy/AdvReac Type Severity Reaction Status Date / Time No Known Allergies Allergy Verified 03/21/19 14:43 Review of Systems ROS Statement: Those systems with pertinent positive or pertinent negative responses have been documented in the HPI. ROS Other: All systems not noted in ROS Statement are negative. Past Medical History Past Medical History: Fibromyalgia, GERD/Reflux, GI Bleed, Hyperlipidemia Additional Past Medical History / Comment(s): gallstones, kidney stones, IBS, migraines, tachycardia, Martine- Guevara tear History of Any Multi-Drug Resistant Organisms: None Reported Past Surgical History: Section, Cholecystectomy, Tubal Ligation Additional Past Surgical History / Comment(s): neck biopsy (lymph node ) d&c Past Anesthesia/Blood Transfusion Reactions: No Reported Reaction Past Psychological History: Anxiety, Bipolar, Depression, PTSD Smoking Status: Never smoker Past Alcohol Use History: None Reported Past Drug Use History: None Reported - Past Family History Mother Family Medical History: Diabetes Mellitus, Hyperlipidemia, Hypertension, Myocardial Infarction ([place]) Additional Family Medical History / Comment(s): [place] X 3 Father Family Medical History: Congestive Heart Failure (CHF), Hyperlipidemia, Hypertension, Myocardial Infarction ([place]) Additional Family Medical History / Comment(s): mi x 3 Son(s) Family Medical History: No Reported History General Exam Limitations: no limitations General appearance: alert, in no apparent distress Head exam: Present: atraumatic, normocephalic, normal inspection Eye exam: Present: normal appearance, PERRL, EOMI. Absent: scleral icterus, conjunctival injection, periorbital swelling ENT exam: Present: normal exam, mucous membranes moist Neck exam: Present: normal inspection, full ROM. Absent: tenderness, meningismus, lymphadenopathy Respiratory exam: Present: normal lung sounds bilaterally. Absent: respiratory distress, wheezes, rales, rhonchi, stridor Cardiovascular Exam: Present: regular rate, normal rhythm, normal heart sounds. Absent: systolic murmur, diastolic murmur, rubs, gallop, clicks GI/Abdominal exam: Present: soft, normal bowel sounds. Absent: distended, tenderness, guarding, rebound, rigid Neurological exam: Present: alert, oriented X3, other ([id number]) Course Vital Signs 03/21/19 14:40 Temperature 98.7 F Pulse Rate 99 Respiratory 18 Rate Blood Pressure 118/69 O2 Sat by Pulse 100 Oximetry EKG Findings - EKG Comments: EKG Findings:: Normal sinus rhythm, ventricular rate 98, [place] interval 136, QTc 467 Medical Decision Making - Medical Decision Making Vitals are stable. CBC is unremarkable. Hemoglobin of 11.1 and is chronic. CMP is unremarkable. Patient does have red blood cells noted and urine with 32 white cells. This will be cultured however patient denying any dysuria area patient was given fluids. EKG is unremarkable. At this time patient can follow up outpatient. Discussed returning here if she has any worsening symptoms. - Lab Data Result diagrams: 03/21/19 15:03/21/19 15: Lab Results 03/21/19 03/21/19 03/21/19 Range/Units 15: 15: 15: WBC 7.8 (3.8-10.6) k/uL RBC 5.08 (3.80-5.40) m/uL Hgb 11.1 L (11.4-16.0) gm/dL Hct 36.7 (34.0-46.0) % MCV 72.3 L (80.0-100.0) fL MCH 21.9 L (25.0-35.0) pg MCHC 30.3 L (31.0-37.0) g/dL RDW 15.6 H (11.5-15.5) % Plt Count 322 (150-450) k/uL Neutrophils % 64 % Lymphocytes % 25 % Monocytes % 5 % Eosinophils % 2 % Basophils % 1 % Neutrophils # 5.0 (1.3-7.7) k/uL Lymphocytes # 2.0 (1.0-4.8) k/uL Monocytes # 0.4 (0-1.0) k/uL Eosinophils # 0.2 (0-0.7) k/uL Basophils # 0.1 (0-0.2) k/uL Hypochromasia Marked Microcytosis Moderate Sodium 139 (137-145) mmol/L Potassium 4.2 (3.5-5.1) mmol/L Chloride 106 (98-107) mmol/L Carbon Dioxide 22 (22-30) mmol/L Anion Gap 11 mmol/L BUN 12 (7-17) mg/dL Creatinine 0.95 (0.52-1.04) mg/dL Est GFR (CKD-EPI)AfAm >90 (>60 ml/min/1.73 sqM) Est GFR (CKD-EPI)NonAf 81 (>60 ml/min/1.73 sqM) Glucose 108 H (74-99) mg/dL Calcium 9.6 (8.4-10.2) mg/dL Total Bilirubin 0.4 (0.2-1.3) mg/dL AST 25 (14-36) U/L ALT 38 (9-52) U/L Alkaline Phosphatase 135 H (38-126) U/L Troponin I (0.000-0.034) ng/mL Total Protein 7.0 (6.3-8.2) g/dL Albumin 3.9 (3.5-5.0) g/dL Urine Color Urine Appearance (Clear) Urine pH (5.0-8.0) Ur Specific [place] (1.001-1.035) Urine Protein (Negative) Urine Glucose (UA) (Negative) Urine Ketones (Negative) Urine Blood (Negative) Urine Nitrite (Negative) Urine Bilirubin (Negative) Urine Urobilinogen (<2.0) mg/dL Ur Leukocyte Esterase (Negative) Urine RBC (0-5) /hpf Urine WBC (0-5) /hpf Ur Squamous Epith Cells (0-4) /hpf Urine Bacteria (None) /hpf Urine Mucus (None) /hpf Urine HCG, Qual Not Detected (Not Detectd) 03/21/19 03/21/19 Range/Units 15:01 15:01 WBC (3.8-10.6) k/uL RBC (3.80-5.40) m/uL Hgb (11.4-16.0) gm/dL Hct (34.0-46.0) % MCV (80.0-100.0) fL MCH (25.0-35.0) pg MCHC (31.0-37.0) g/dL RDW (11.5-15.5) % Plt Count (150-450) k/uL Neutrophils % % Lymphocytes % % Monocytes % % Eosinophils % % Basophils % % Neutrophils # (1.3-7.7) k/uL Lymphocytes # (1.0-4.8) k/uL Monocytes # (0-1.0) k/uL Eosinophils # (0-0.7) k/uL Basophils # (0-0.2) k/uL Hypochromasia Microcytosis Sodium (137-145) mmol/L Potassium (3.5-5.1) mmol/L Chloride (98-107) mmol/L Carbon Dioxide (22-30) mmol/L Anion Gap mmol/L BUN (7-17) mg/dL Creatinine (0.52-1.04) mg/dL Est GFR (CKD-EPI)AfAm (>60 ml/min/1.73 sqM) Est GFR (CKD-EPI)NonAf (>60 ml/min/1.73 sqM) Glucose (74-99) mg/dL Calcium (8.4-10.2) mg/dL Total Bilirubin (0.2-1.3) mg/dL AST (14-36) U/L ALT (9-52) U/L Alkaline Phosphatase (38-126) U/L Troponin I <0.012 (0.000-0.034) ng/mL Total Protein (6.3-8.2) g/dL Albumin (3.5-5.0) g/dL Urine Color Light Red Urine Appearance Cloudy H (Clear) Urine pH 6.0 (5.0-8.0) Ur Specific [place] 1.025 (1.001-1.035) Urine Protein 2+ H (Negative) Urine Glucose (UA) Negative (Negative) Urine Ketones Negative (Negative) Urine Blood Large H (Negative) Urine Nitrite Negative (Negative) Urine Bilirubin Negative (Negative) Urine Urobilinogen <2.0 (<2.0) mg/dL Ur Leukocyte Esterase Large H (Negative) Urine RBC >182 H (0-5) /hpf Urine WBC 32 H (0-5) /hpf Ur Squamous Epith Cells 6 H (0-4) /hpf Urine Bacteria Occasional H (None) /hpf Urine Mucus Few H (None) /hpf Urine HCG, Qual (Not Detectd) Disposition Clinical Impression: Near syncope Disposition: HOME SELF-CARE Condition: Good Instructions (If sedation given, give patient instructions): Lightheadedness (ED) Additional Instructions: Please follow up with primary care in 1-2 days. Return to the emergency department if you have any worsening symptoms. Is patient prescribed a controlled substance at d/c from ED?: No Referrals: Olvin Keenan MD [Primary Care Provider] - 1-2 days Time of Disposition: 16:31
[2019-03-21 15:23] LABS: Basophils # (A) 0.1 k/uL (0-0.2); Basophils % (A) 1 %; Eosinophils # (A) 0.2 k/uL (0-0.7); Eosinophils % (A) 2 %; HCT 36.7 % (34.0-46.0); HGB 11.1 gm/dL (11.4-16.0); Hypochromasia Marked; Lymphocytes % (A) 25 %; MCH 21.9 pg (25.0-35.0); MCHC 30.3 g/dL (31.0-37.0); MCV 72.3 fL (80.0-100.0); Mean Platelet Volume 5.6; Microcytosis Moderate; Monocytes # (A) 0.4 k/uL (0-1.0); Monocytes % (A) 5 %; Neutrophils % (A) 64 %; Platelet Count 322 k/uL (150-450); RBC 5.08 m/uL (3.80-5.40); RDW 15.6 % (11.5-15.5); WBC 7.8 k/uL (3.8-10.6)
[2019-03-21 15:29] LABS: ALT 38 U/L (9-52); AST 25 U/L (14-36); African American GFR (CKD) >90 (>60 ml/min/1.73 sqM); Albumin 3.9 g/dL (3.5-5.0); Alkaline Phosphatase 135 U/L (38-126); Anion Gap 11 mmol/L; Blood Urea Nitrogen 12 mg/dL (7-17); Calcium 9.6 mg/dL (8.4-10.2); Carbon Dioxide 22 mmol/L (22-30); Chloride 106 mmol/L (98-107); Glucose 108 mg/dL (74-99); Non-African American GFR(CKD) 81 (>60 ml/min/1.73 sqM); Potassium 4.2 mmol/L (3.5-5.1); Sodium 139 mmol/L (137-145); Total Bilirubin 0.4 mg/dL (0.2-1.3)
[2019-03-21 15:42] LABS: Appearance,Urine Cloudy (Clear); Bacteria,Urine Occasional /hpf; Bilirubin,Urine Negative (Negative); Blood,Urine Large (Negative); Color,Urine Light Red; Glucose,Urine (UA) Negative (Negative); Ketones,Urine Negative (Negative); Leukocyte Esterase,Urine Large (Negative); Mucus,Urine Few /hpf; Nitrite,Urine Negative (Negative); Protein,Urine 2+ (Negative); RBC,Urine >182 /hpf (0-5); Specific Gravity,Urine 1.025 (1.001-1.035); Squamous Epithelial Cell,Urine 6 /hpf (0-4); Urobilinogen,Urine <2.0 mg/dL (<2.0); WBC,Urine 32 /hpf (0-5)
[2019-03-21 16:54] VITALS: BP 132/78; PULSE 78
== END 2019-03-21 16:53 | disposition home or self-care (01) ==
LOC: EC 14:39
DX: R55 Syncope and collapse (principal); R31.9 Hematuria, unspecified; R82.998 Other abnormal findings in urine; M79.7 Fibromyalgia; K21.9 Gastro-esophageal reflux disease without esophagitis; E78.5 Hyperlipidemia, unspecified; F31.9 Bipolar disorder, unspecified; F41.9 Anxiety disorder, unspecified; Z79.899 Other long term (current) drug therapy
CPT/HCPCS: 36415; 80053; 81001; 81025; 84484; 85025; 87086; 93005; 96360; 99284

== ENCOUNTER 2019-04-08 18:33 | Emergency (ER) | payer OTHER ==
[2019-04-08 18:37] VITALS: BP 104/76; PULSE 106; RESP 22; TEMP 98.7
--- NOTE | 2019-04-08 19:25 | ED ---
General Adult HPI - General Chief complaint: GI Bleed Stated complaint: Vomiting blood, blood in stool Time Seen by Provider: 04/08/19 18:46 Source: patient, RN notes reviewed, old records reviewed Mode of arrival: ambulatory Limitations: no limitations - History of Present Illness Initial comments: 29-year-old female patient presents to ED U chief complaint of nausea vomiting, streaking blood in emesis. Denies any other complaints at this time. Patient has had multiple presentations for similar symptoms. Patient follows up with GI doctor tomorrow. Has had reportedly unremarkable upper and lower endoscopy/colonoscopy. Denies any other complaints at this time. Denies a chance being secondary tubal ligation. Systemic: Pt denies fatigue, fever/chills, rash. Pt denies weakness, night sweats, weight loss. Neuro: Pt denies headache, visual disturbances, syncope or pre-syncope. HEENT: Pt denies ocular discharge or irritation, otalgia, rhinorrhea, pharyngitis or notable lymphadenopathy. Cardiopulmonary: Pt denies chest pain, SOB, heart palpitations, dyspnea on exertion. Abdominal/GI: Pt denies abdominal pain, n/v/d. : Pt denies dysuria, burning w/ urination, frequency/urgency. Denies new onset urinary or bowel incontinence. MSK: Pt denies myalgia, loss of strength or function in extremities. Neuro: Pt denies new onset weakness, paresthesias. - Related Data Home Medications Medication Instructions Recorded Confirmed Pantoprazole [Protonix] 40 mg PO BID 01/20/18 01/02/19 Pravastatin Sodium [Pravachol] 20 mg PO HS 01/20/18 01/02/19 Gabapentin 600 mg PO TID 07/03/18 01/02/19 SUMAtriptan SUCCINATE [Imitrex] 50 mg PO BID PRN 07/03/18 01/02/19 Verapamil HCl [Verapamil ER] 180 mg PO HS 09/24/18 01/02/19 acetaZOLAMIDE [Diamox Sequels] 500 mg PO BID 09/24/18 01/02/19 ARIPiprazole [Abilify] 20 mg PO HS 11/24/18 01/02/19 Amitriptyline HCl [Elavil] 10 mg PO BID 11/24/18 01/02/19 Hydrochlorothiazide [Hydrodiuril] 12.5 mg PO DAILY 11/24/18 01/02/19 LORazepam [Ativan] 1 mg PO HS 11/24/18 01/02/19 Previous Rx's Medication Instructions Recorded Dicyclomine [Bentyl] 20 mg PO QID #20 tablet 07/15/18 Cephalexin [Keflex] 500 mg PO Q12HR 10 Days #20 cap 04/08/19 Tamsulosin [Flomax] 0.4 mg PO DAILY #10 cap 04/08/19 Allergies Allergy/AdvReac Type Severity Reaction Status Date / Time No Known Allergies Allergy Verified 04/08/19 18:37 Review of Systems ROS Statement: Those systems with pertinent positive or pertinent negative responses have been documented in the HPI. ROS Other: All systems not noted in ROS Statement are negative. Past Medical History Past Medical History: Fibromyalgia, GERD/Reflux, GI Bleed, Hyperlipidemia Additional Past Medical History / Comment(s): gallstones, kidney stones, IBS, migraines, tachycardia, Martine- Guevara tear History of Any Multi-Drug Resistant Organisms: None Reported Past Surgical History: Section, Cholecystectomy, Tubal Ligation Additional Past Surgical History / Comment(s): neck biopsy (lymph node ) d&c Past Anesthesia/Blood Transfusion Reactions: No Reported Reaction Past Psychological History: Anxiety, Bipolar, Depression, PTSD Smoking Status: Never smoker Past Alcohol Use History: None Reported Past Drug Use History: None Reported - Past Family History Mother Family Medical History: Diabetes Mellitus, Hyperlipidemia, Hypertension, Myocardial Infarction ([place]) Additional Family Medical History / Comment(s): [place] X 3 Father Family Medical History: Congestive Heart Failure (CHF), Hyperlipidemia, Hypertension, Myocardial Infarction ([place]) Additional Family Medical History / Comment(s): mi x 3 Son(s) Family Medical History: No Reported History General Exam - General Exam Comments Initial Comments: Constitutional: NAD, AOX3, Pt has pleasant affect. HEENT: NC/AT, trachea midline, neck supple, no lymphadenopathy. Posterior pharynx non erythematous, without exudates. External ears appear normal, without discharge. Mucous membranes moist. Eyes PERRLA, EOM intact. There is no scleral icterus. No pallor noted. Cardiopulmonary: RRR, no murmurs, rubs or gallops, no JVD noted. Lungs CTAB in anterior and posterior green. No peripheral edema. Abdominal exam: Abdomen soft and non-distended. Abdomen mildly tender in left upper quadrant region. No guarding noted. No ecchymoses.. Bowel sounds active in LLQ. No hepatosplenomegaly. No ecchymosis Neuro: CN II-XII grossly intact. No nuchal rigidity. No raccon eyes, no hanna sign, no hemotympanum. No cervical spinal tenderness. MSK: No posterior calf tenderness bilaterally, homans sign negative bilaterally. Posterior tibialis and radial pulse +2 bilaterally. Sensation intact in upper and lower extremities. Full active ROM in upper and lower extremities, 5/5 stregnth. Limitations: no limitations Course Vital Signs 04/08/19 18:34 Temperature 98.7 F Pulse Rate 106 H Respiratory 22 Rate Blood Pressure 104/76 O2 Sat by Pulse 98 Oximetry Medical Decision Making - Medical Decision Making 29-year-old female patient presents to ED U chief complaint of nausea vomiting, streaking blood in emesis. Denies any other complaints at this time. Patient has had multiple presentations for similar symptoms. Patient follows up with GI doctor tomorrow. Has had reportedly unremarkable upper and lower endoscopy/colonoscopy. Denies any other complaints at this time. Denies a chance being secondary tubal ligation. Patient no signs stable, afebrile. Physical exam displayed abnormality on tender in left upper quadrant region. After initial evaluation patient began complaining of some right lower quadrant pain. This area is very mildly tender. No guarding or rigidity no rebound. CBC, CMP noncompressive. UA displayed but exam esterase, 9 red blood cells, 59 white blood cells. Occult blood chaperoned by YOUNG Harvey was negative. KUB chest x-ray displayed normal chest, nonacute abdomen no change. Review of previous imaging shows that patient has a history of renal calculi. patient reports that abdominal discomfort is much improved with GI cocktail, morphine. Patient a fluid bolus. Patient discharged with Flomax and Keflex. Will follow up with primary care provider tomorrow. Will return to ER if condition worsens in any way. Strict return precautions discussed. Patient verbalized understanding. Case discussed with Dr. Cueto. - Lab Data Result diagrams: 04/08/19 19:40 04/08/19 19:40 Lab Results 04/08/19 04/08/19 04/08/19 Range/Units 19:11 19:11 19:40 WBC 8.3 (3.8-10.6) k/uL RBC 5.25 (3.80-5.40) m/uL Hgb 11.6 (11.4-16.0) gm/dL Hct 37.8 (34.0-46.0) % MCV 72.0 L (80.0-100.0) fL MCH 22.0 L (25.0-35.0) pg MCHC 30.6 L (31.0-37.0) g/dL RDW 16.2 H (11.5-15.5) % Plt Count 351 (150-450) k/uL Neutrophils % 64 % Lymphocytes % 27 % Monocytes % 4 % Eosinophils % 3 % Basophils % 1 % Neutrophils # 5.3 (1.3-7.7) k/uL Lymphocytes # 2.2 (1.0-4.8) k/uL Monocytes # 0.3 (0-1.0) k/uL Eosinophils # 0.3 (0-0.7) k/uL Basophils # 0.0 (0-0.2) k/uL Hypochromasia Marked Anisocytosis Slight Microcytosis Moderate Sodium (137-145) mmol/L Potassium (3.5-5.1) mmol/L Chloride (98-107) mmol/L Carbon Dioxide (22-30) mmol/L Anion Gap mmol/L BUN (7-17) mg/dL Creatinine (0.52-1.04) mg/dL Est GFR (CKD-EPI)AfAm (>60 ml/min/1.73 sqM) Est GFR (CKD-EPI)NonAf (>60 ml/min/1.73 sqM) Glucose (74-99) mg/dL Calcium (8.4-10.2) mg/dL Total Bilirubin (0.2-1.3) mg/dL AST (14-36) U/L ALT (4-34) U/L Alkaline Phosphatase (38-126) U/L Total Protein (6.3-8.2) g/dL Albumin (3.5-5.0) g/dL Urine Color Light Yellow Urine Appearance Cloudy H (Clear) Urine pH 7.5 (5.0-8.0) Ur Specific [place] 1.011 (1.001-1.035) Urine Protein Negative (Negative) Urine Glucose (UA) Negative (Negative) Urine Ketones Negative (Negative) Urine Blood Negative (Negative) Urine Nitrite Negative (Negative) Urine Bilirubin Negative (Negative) Urine Urobilinogen 2.0 (<2.0) mg/dL Ur Leukocyte Esterase Large H (Negative) Urine RBC 9 H (0-5) /hpf Urine WBC 59 H (0-5) /hpf Ur Squamous Epith Cells 3 (0-4) /hpf Urine Bacteria Rare H (None) /hpf Urine Mucus Rare H (None) /hpf Urine HCG, Qual Not Detected (Not Detectd) Stool Occult Blood (Negative) 04/08/19 04/08/19 Range/Units 19:40 21:20 WBC (3.8-10.6) k/uL RBC (3.80-5.40) m/uL Hgb (11.4-16.0) gm/dL Hct (34.0-46.0) % MCV (80.0-100.0) fL MCH (25.0-35.0) pg MCHC (31.0-37.0) g/dL RDW (11.5-15.5) % Plt Count (150-450) k/uL Neutrophils % % Lymphocytes % % Monocytes % % Eosinophils % % Basophils % % Neutrophils # (1.3-7.7) k/uL Lymphocytes # (1.0-4.8) k/uL Monocytes # (0-1.0) k/uL Eosinophils # (0-0.7) k/uL Basophils # (0-0.2) k/uL Hypochromasia Anisocytosis Microcytosis Sodium 140 (137-145) mmol/L Potassium 3.8 (3.5-5.1) mmol/L Chloride 108 H (98-107) mmol/L Carbon Dioxide 21 L (22-30) mmol/L Anion Gap 11 mmol/L BUN 11 (7-17) mg/dL Creatinine 0.90 (0.52-1.04) mg/dL Est GFR (CKD-EPI)AfAm >90 (>60 ml/min/1.73 sqM) Est GFR (CKD-EPI)NonAf 87 (>60 ml/min/1.73 sqM) Glucose 100 H (74-99) mg/dL Calcium 9.3 (8.4-10.2) mg/dL Total Bilirubin 0.6 (0.2-1.3) mg/dL AST 31 (14-36) U/L ALT 35 H (4-34) U/L Alkaline Phosphatase 137 H (38-126) U/L Total Protein 7.0 (6.3-8.2) g/dL Albumin 4.2 (3.5-5.0) g/dL Urine Color Urine Appearance (Clear) Urine pH (5.0-8.0) Ur Specific [place] (1.001-1.035) Urine Protein (Negative) Urine Glucose (UA) (Negative) Urine Ketones (Negative) Urine Blood (Negative) Urine Nitrite (Negative) Urine Bilirubin (Negative) Urine Urobilinogen (<2.0) mg/dL Ur Leukocyte Esterase (Negative) Urine RBC (0-5) /hpf Urine WBC (0-5) /hpf Ur Squamous Epith Cells (0-4) /hpf Urine Bacteria (None) /hpf Urine Mucus (None) /hpf Urine HCG, Qual (Not Detectd) Stool Occult Blood Negative (Negative) Disposition Clinical Impression: UTI (urinary tract infection), Abdominal pain Disposition: HOME SELF-CARE Condition: Stable Instructions (If sedation given, give patient instructions): Abdominal Pain (E D) Additional Instructions: take medications as directed. Follow-up with primary care provider tomorrow. Return to ER immediately if condition worsens in any way. Prescriptions: Tamsulosin [Flomax] 0.4 mg PO DAILY #10 cap Cephalexin [Keflex] 500 mg PO Q12HR 10 Days #20 cap Is patient prescribed a controlled substance at d/c from ED?: No Referrals: Olvin Keenan MD [Primary Care Provider] - 1-2 days
[2019-04-08 19:27] LABS: Appearance,Urine Cloudy (Clear); Bacteria,Urine Rare /hpf; Bilirubin,Urine Negative (Negative); Blood,Urine Negative (Negative); Color,Urine Light Yellow; Glucose,Urine (UA) Negative (Negative); Ketones,Urine Negative (Negative); Leukocyte Esterase,Urine Large (Negative); Mucus,Urine Rare /hpf; Nitrite,Urine Negative (Negative); PH, Urine 7.5 (5.0-8.0); Protein,Urine Negative (Negative); RBC,Urine 9 /hpf (0-5); Specific Gravity,Urine 1.011 (1.001-1.035); Squamous Epithelial Cell,Urine 3 /hpf (0-4); WBC,Urine 59 /hpf (0-5)
[2019-04-08] MEDS: ONDANSETRON 4 MG/2 ML VIAL IVP STA (19:39)
[2019-04-08 19:49] LABS: Anisocytosis Slight; Basophils % (A) 1 %; Eosinophils # (A) 0.3 k/uL (0-0.7); Eosinophils % (A) 3 %; HCT 37.8 % (34.0-46.0); HGB 11.6 gm/dL (11.4-16.0); Hypochromasia Marked; Lymphocytes # (A) 2.2 k/uL (1.0-4.8); Lymphocytes % (A) 27 %; MCHC 30.6 g/dL (31.0-37.0); Microcytosis Moderate; Monocytes # (A) 0.3 k/uL (0-1.0); Monocytes % (A) 4 %; Neutrophils # (A) 5.3 k/uL (1.3-7.7); Neutrophils % (A) 64 %; Platelet Count 351 k/uL (150-450); RBC 5.25 m/uL (3.80-5.40); RDW 16.2 % (11.5-15.5); WBC 8.3 k/uL (3.8-10.6)
[2019-04-08 20:07] LABS: ALT 35 U/L (4-34); AST 31 U/L (14-36); African American GFR (CKD) >90 (>60 ml/min/1.73 sqM); Albumin 4.2 g/dL (3.5-5.0); Alkaline Phosphatase 137 U/L (38-126); Anion Gap 11 mmol/L; Blood Urea Nitrogen 11 mg/dL (7-17); Calcium 9.3 mg/dL (8.4-10.2); Carbon Dioxide 21 mmol/L (22-30); Chloride 108 mmol/L (98-107); Glucose 100 mg/dL (74-99); Non-African American GFR(CKD) 87 (>60 ml/min/1.73 sqM); Potassium 3.8 mmol/L (3.5-5.1); Sodium 140 mmol/L (137-145); Total Bilirubin 0.6 mg/dL (0.2-1.3)
--- NOTE | 2019-04-08 20:23 | XR ---
EXAMINATION TYPE: XR chest 2V DATE OF EXAM: 04/08/2019 COMPARISON: 12/24/2018 HISTORY: Chest pain TECHNIQUE: 2 views FINDINGS: Heart and mediastinum are normal. Lungs are clear. Diaphragm is normal. Bony thorax is norm al. IMPRESSION: Normal chest. No change.
--- NOTE | 2019-04-08 20:24 | XR ---
EXAMINATION TYPE: XR KUB DATE OF EXAM: 04/08/2019 COMPARISON: 01/02/2019 HISTORY: Abdominal pain TECHNIQUE: 2 views FINDINGS: There is no sign of intestinal obstruction or pneumoperitoneum. Fecal pattern is normal. Th ere are clips from tubal ligation. There are clips from cholecystectomy. Lung bases are clear. There is no sign of a mass. There are no pathologic calcifications. IMPRESSION: Nonacute abdomen. No change.
[2019-04-08] MEDS: MAG HYDROX/AL HYDROX/SIMETH 30 ML, HYOSCYAMINE ELIXIR 10 ML, LIDOCAINE VISCOUS 2% 10 ML PO STA ×3 (20:34)
[2019-04-08] MEDS: MORPHINE SULFATE 4 MG/ML SYRINGE IV STA (21:59)
[2019-04-08] MEDS: SODIUM CHLORIDE 0.9% 500 ML 500 ML IV STA (22:04)
[2019-04-08] MEDS: cefTRIAXone IN SWFI 1,000 MG/10 ML SYRINGE IVP STA (23:17)
--- NOTE | 2019-04-10 14:25 | ED ---
Medical Decision Making - Medical Decision Making Personally called patient to ensure close follow-up. Patient reported that she is still endorsing some pain on her right lower quadrant. Recommend patient presented to this emergency department today for further evaluation. - Lab Data Result diagrams: 04/08/19 19:40 04/08/19 19:40 Lab Results 04/08/19 04/08/19 04/08/19 Range/Units 19:11 19:11 19:40 WBC 8.3 (3.8-10.6) k/uL RBC 5.25 (3.80-5.40) m/uL Hgb 11.6 (11.4-16.0) gm/dL Hct 37.8 (34.0-46.0) % MCV 72.0 L (80.0-100.0) fL MCH 22.0 L (25.0-35.0) pg MCHC 30.6 L (31.0-37.0) g/dL RDW 16.2 H (11.5-15.5) % Plt Count 351 (150-450) k/uL Neutrophils % 64 % Lymphocytes % 27 % Monocytes % 4 % Eosinophils % 3 % Basophils % 1 % Neutrophils # 5.3 (1.3-7.7) k/uL Lymphocytes # 2.2 (1.0-4.8) k/uL Monocytes # 0.3 (0-1.0) k/uL Eosinophils # 0.3 (0-0.7) k/uL Basophils # 0.0 (0-0.2) k/uL Hypochromasia Marked Anisocytosis Slight Microcytosis Moderate Sodium (137-145) mmol/L Potassium (3.5-5.1) mmol/L Chloride (98-107) mmol/L Carbon Dioxide (22-30) mmol/L Anion Gap mmol/L BUN (7-17) mg/dL Creatinine (0.52-1.04) mg/dL Est GFR (CKD-EPI)AfAm (>60 ml/min/1.73 sqM) Est GFR (CKD-EPI)NonAf (>60 ml/min/1.73 sqM) Glucose (74-99) mg/dL Calcium (8.4-10.2) mg/dL Total Bilirubin (0.2-1.3) mg/dL AST (14-36) U/L ALT (4-34) U/L Alkaline Phosphatase (38-126) U/L Total Protein (6.3-8.2) g/dL Albumin (3.5-5.0) g/dL Urine Color Light Yellow Urine Appearance Cloudy H (Clear) Urine pH 7.5 (5.0-8.0) Ur Specific [place] 1.011 (1.001-1.035) Urine Protein Negative (Negative) Urine Glucose (UA) Negative (Negative) Urine Ketones Negative (Negative) Urine Blood Negative (Negative) Urine Nitrite Negative (Negative) Urine Bilirubin Negative (Negative) Urine Urobilinogen 2.0 (<2.0) mg/dL Ur Leukocyte Esterase Large H (Negative) Urine RBC 9 H (0-5) /hpf Urine WBC 59 H (0-5) /hpf Ur Squamous Epith Cells 3 (0-4) /hpf Urine Bacteria Rare H (None) /hpf Urine Mucus Rare H (None) /hpf Urine HCG, Qual Not Detected (Not Detectd) Stool Occult Blood (Negative) 04/08/19 04/08/19 Range/Units 19:40 21:20 WBC (3.8-10.6) k/uL RBC (3.80-5.40) m/uL Hgb (11.4-16.0) gm/dL Hct (34.0-46.0) % MCV (80.0-100.0) fL MCH (25.0-35.0) pg MCHC (31.0-37.0) g/dL RDW (11.5-15.5) % Plt Count (150-450) k/uL Neutrophils % % Lymphocytes % % Monocytes % % Eosinophils % % Basophils % % Neutrophils # (1.3-7.7) k/uL Lymphocytes # (1.0-4.8) k/uL Monocytes # (0-1.0) k/uL Eosinophils # (0-0.7) k/uL Basophils # (0-0.2) k/uL Hypochromasia Anisocytosis Microcytosis Sodium 140 (137-145) mmol/L Potassium 3.8 (3.5-5.1) mmol/L Chloride 108 H (98-107) mmol/L Carbon Dioxide 21 L (22-30) mmol/L Anion Gap 11 mmol/L BUN 11 (7-17) mg/dL Creatinine 0.90 (0.52-1.04) mg/dL Est GFR (CKD-EPI)AfAm >90 (>60 ml/min/1.73 sqM) Est GFR (CKD-EPI)NonAf 87 (>60 ml/min/1.73 sqM) Glucose 100 H (74-99) mg/dL Calcium 9.3 (8.4-10.2) mg/dL Total Bilirubin 0.6 (0.2-1.3) mg/dL AST 31 (14-36) U/L ALT 35 H (4-34) U/L Alkaline Phosphatase 137 H (38-126) U/L Total Protein 7.0 (6.3-8.2) g/dL Albumin 4.2 (3.5-5.0) g/dL Urine Color Urine Appearance (Clear) Urine pH (5.0-8.0) Ur Specific [place] (1.001-1.035) Urine Protein (Negative) Urine Glucose (UA) (Negative) Urine Ketones (Negative) Urine Blood (Negative) Urine Nitrite (Negative) Urine Bilirubin (Negative) Urine Urobilinogen (<2.0) mg/dL Ur Leukocyte Esterase (Negative) Urine RBC (0-5) /hpf Urine WBC (0-5) /hpf Ur Squamous Epith Cells (0-4) /hpf Urine Bacteria (None) /hpf Urine Mucus (None) /hpf Urine HCG, Qual (Not Detectd) Stool Occult Blood Negative (Negative) Disposition Clinical Impression: UTI (urinary tract infection), Abdominal pain Disposition: HOME SELF-CARE Condition: Stable Instructions (If sedation given, give patient instructions): Abdominal Pain (ED) Additional Instructions: take medications as directed. Follow-up with primary care provider tomorrow. Return to ER immediately if condition worsens in any way. Prescriptions: Tamsulosin [Flomax] 0.4 mg PO DAILY #10 cap Cephalexin [Keflex] 500 mg PO Q12HR 10 Days #20 cap Cephalexin [Keflex] 500 mg PO Q6HR 10 Days #40 cap Is patient prescribed a controlled substance at d/c from ED?: No Referrals: Olvin Keenan MD [Primary Care Provider] - 1-2 days
== END 2019-04-08 23:21 | disposition home or self-care (01) ==
LOC: EC 18:33
DX: N39.0 Urinary tract infection, site not specified (principal); K22.6 Gastro-esophageal laceration-hemorrhage syndrome; M79.7 Fibromyalgia; K21.9 Gastro-esophageal reflux disease without esophagitis; E78.5 Hyperlipidemia, unspecified; K58.9 Irritable bowel syndrome, unspecified; F31.9 Bipolar disorder, unspecified; F41.9 Anxiety disorder, unspecified; F43.10 Post-traumatic stress disorder, unspecified; Z87.442 Personal history of urinary calculi; Z79.899 Other long term (current) drug therapy; Z86.69 Personal history of other diseases of the nervous system and sense organs; Z90.49 Acquired absence of other specified parts of digestive tract; Z98.51 Tubal ligation status; Z53.20 Procedure and treatment not carried out because of patient's decision for unspecified reasons
CPT/HCPCS: 36415; 80053; 85025; 82272; 81001; 81025; 71046; 74018; 99285; 96374; 96375; 96361; J2270; J2405

== ENCOUNTER 2019-04-11 00:59 | Emergency (ER) | payer OTHER ==
[2019-04-11 01:04] VITALS: RESP 18
[2019-04-11] MEDS ORDERED: SODIUM CHLORIDE 0.9% 500 ML 500 ML IV STA (01:24)
[2019-04-11] MEDS ORDERED: ONDANSETRON 4 MG/2 ML VIAL IVP STA (01:24)
--- NOTE | 2019-04-11 01:26 | ED ---
Abdominal Pain HPI - General Chief Complaint: Abdominal Pain Stated Complaint: nausea, abdominal pain Time Seen by Provider: 04/11/19 01:09 Source: patient Mode of arrival: wheelchair Limitations: no limitations - History of Present Illness MD Complaint: abdominal pain Onset/Timin -: days(s) Location: RLQ Migration to: no migration Severity: moderate Quality: sharp Consistency: constant Improves With: nothing Worsens With: movement Associated Symptoms: nausea - Related Data Home Medications Medication Instructions Recorded Confirmed Pantoprazole [Protonix] 40 mg PO BID 01/20/18 01/02/19 Pravastatin Sodium [Pravachol] 20 mg PO HS 01/20/18 01/02/19 Gabapentin 600 mg PO TID 07/03/18 01/02/19 SUMAtriptan SUCCINATE [Imitrex] 50 mg PO BID PRN 07/03/18 01/02/19 Verapamil HCl [Verapamil ER] 180 mg PO HS 09/24/18 01/02/19 acetaZOLAMIDE [Diamox Sequels] 500 mg PO BID 09/24/18 01/02/19 ARIPiprazole [Abilify] 20 mg PO HS 11/24/18 01/02/19 Amitriptyline HCl [Elavil] 10 mg PO BID 11/24/18 01/02/19 Hydrochlorothiazide [Hydrodiuril] 12.5 mg PO DAILY 11/24/18 01/02/19 LORazepam [Ativan] 1 mg PO HS 11/24/18 01/02/19 Previous Rx's Medication Instructions Recorded Dicyclomine [Bentyl] 20 mg PO QID #20 tablet 07/15/18 Cephalexin [Keflex] 500 mg PO Q12HR 10 Days #20 cap 04/08/19 Tamsulosin [Flomax] 0.4 mg PO DAILY #10 cap 04/08/19 Cephalexin [Keflex] 500 mg PO Q6HR 10 Days #40 cap 04/09/19 Allergies Allergy/AdvReac Type Severity Reaction Status Date / Time No Known Allergies Allergy Verified 04/08/19 18:37 Review of Systems ROS Statement: Those systems with pertinent positive or pertinent negative responses have been documented in the HPI. ROS Other: All systems not noted in ROS Statement are negative. Constitutional: Denies: fever, chills Respiratory: Denies: cough, dyspnea Cardiovascular: Denies: chest pain, palpitations Gastrointestinal: Reports: abdominal pain, nausea, diarrhea. Denies: vomiting, constipation, melena, hematochezia Genitourinary: Denies: dysuria, hematuria Musculoskeletal: Denies: back pain Skin: Denies: rash Neurological: Denies: headache, weakness, numbness Past Medical History Past Medical History: Fibromyalgia, GERD/Reflux, GI Bleed, Hyperlipidemia Additional Past Medical History / Comment(s): gallstones, kidney stones, IBS, migraines, tachycardia, Martine- Guevara tear History of Any Multi-Drug Resistant Organisms: None Reported Past Surgical History: Section, Cholecystectomy, Tubal Ligation Additional Past Surgical History / Comment(s): neck biopsy (lymph node ) d&c Past Anesthesia/Blood Transfusion Reactions: No Reported Reaction Past Psychological History: Anxiety, Bipolar, Depression, PTSD Smoking Status: Never smoker Past Alcohol Use History: None Reported Past Drug Use History: None Reported - Past Family History Mother Family Medical History: Diabetes Mellitus, Hyperlipidemia, Hypertension, Myocardial Infarction ([place]) Additional Family Medical History / Comment(s): [place] X 3 Father Family Medical History: Congestive Heart Failure (CHF), Hyperlipidemia, Hyp ertension, Myocardial Infarction ([place]) Additional Family Medical History / Comment(s): mi x 3 Son(s) Family Medical History: No Reported History General Exam Limitations: no limitations General appearance: alert, in no apparent distress Head exam: Present: atraumatic, normocephalic Eye exam: Present: normal appearance. Absent: scleral icterus, conjunctival injection ENT exam: Present: normal oropharynx Respiratory exam: Present: normal lung sounds bilaterally. Absent: respiratory distress, wheezes, rales, rhonchi, stridor Cardiovascular Exam: Present: regular rate, normal rhythm, normal heart sounds. Absent: systolic murmur, diastolic murmur, rubs, gallop GI/Abdominal exam: Present: soft, tenderness, normal bowel sounds. Absent: distended, guarding, rebound, rigid, mass, pulsatile mass Extremities exam: Present: normal inspection, normal capillary refill. Absent: pedal edema, calf tenderness Back exam: Present: normal inspection. Absent: CVA tenderness (R), CVA tenderness (L) Neurological exam: Present: alert Skin exam: Present: warm, dry, intact, normal color. Absent: rash Course Vital Signs 04/11/19 04/11/19 01:02 01:34 Temperature 98.3 F Pulse Rate 103 H 94 Respiratory 18 18 Rate Blood Pressure 140/93 129/84 O2 Sat by Pulse 99 100 Oximetry Medical Decision Making - Lab Data Result diagrams: 04/11/19 01:25 04/11/19 01:25 Lab Results 04/11/19 04/11/19 04/11/19 Range/Units 01:25 01:25 01:25 WBC 10.7 H (3.8-10.6) k/uL RBC 5.27 (3.80-5.40) m/uL Hgb 11.4 (11.4-16.0) gm/dL Hct 37.6 (34.0-46.0) % MCV 71.4 L (80.0-100.0) fL MCH 21.7 L (25.0-35.0) pg MCHC 30.3 L (31.0-37.0) g/dL RDW 16.6 H (11.5-15.5) % Plt Count 323 (150-450) k/uL Neutrophils % 65 % Lymphocytes % 26 % Monocytes % 4 % Eosinophils % 3 % Basophils % 1 % Neutrophils # 6.9 (1.3-7.7) k/uL Lymphocytes # 2.8 (1.0-4.8) k/uL Monocytes # 0.4 (0-1.0) k/uL Eosinophils # 0.4 (0-0.7) k/uL Basophils # 0.1 (0-0.2) k/uL Hypochromasia Moderate Anisocytosis Slight Microcytosis Moderate Sodium 141 (137-145) mmol/L Potassium 3.7 (3.5-5.1) mmol/L Chloride 109 H (98-107) mmol/L Carbon Dioxide 22 (22-30) mmol/L Anion Gap 10 mmol/L BUN 12 (7-17) mg/dL Creatinine 0.92 (0.52-1.04) mg/dL Est GFR (CKD-EPI)AfAm >90 (>60 ml/min/1.73 sqM) Est GFR (CKD-EPI)NonAf 84 (>60 ml/min/1.73 sqM) Glucose 99 (74-99) mg/dL Calcium 9.2 (8.4-10.2) mg/dL Total Bilirubin 0.4 (0.2-1.3) mg/dL AST 24 (14-36) U/L ALT 30 (4-34) U/L Alkaline Phosphatase 127 H (38-126) U/L C-Reactive Protein 18.7 H (<10.0) mg/L Total Protein 6.9 (6.3-8.2) g/dL Albumin 3.9 (3.5-5.0) g/dL Amylase 30 (30-110) U/L Lipase 96 (23-300) U/L Urine Color Yellow Urine Appearance Cloudy H (Clear) Urine pH 8.0 (5.0-8.0) Ur Specific [place] 1.014 (1.001-1.035) Urine Protein Trace H (Negative) Urine Glucose (UA) Negative (Negative) Urine Ketones Negative (Negative) Urine Blood Negative (Negative) Urine Nitrite Negative (Negative) Urine Bilirubin Negative (Negative) Urine Urobilinogen 2.0 (<2.0) mg/dL Ur Leukocyte Esterase Large H (Negative) Urine RBC 11 H (0-5) /hpf Ur Squamous Epith Cells 2 (0-4) /hpf Urine Bacteria Rare H (None) /hpf Urine Mucus Rare H (None) /hpf Urine Trichomonas Rare H (None) /hpf Urine HCG, Qual (Not Detectd) 04/11/19 Range/Units 01:25 WBC (3.8-10.6) k/uL RBC (3.80-5.40) m/uL Hgb (11.4-16.0) gm/dL Hct (34.0-46.0) % MCV (80.0-100.0) fL MCH (25.0-35.0) pg MCHC (31.0-37.0) g/dL RDW (11.5-15.5) % Plt Count (150-450) k/uL Neutrophils % % Lymphocytes % % Monocytes % % Eosinophils % % Basophils % % Neutrophils # (1.3-7.7) k/uL Lymphocytes # (1.0-4.8) k/uL Monocytes # (0-1.0) k/uL Eosinophils # (0-0.7) k/uL Basophils # (0-0.2) k/uL Hypochromasia Anisocytosis Microcytosis Sodium (137-145) mmol/L Potassium (3.5-5.1) mmol/L Chloride (98-107) mmol/L Carbon Dioxide (22-30) mmol/L Anion Gap mmol/L BUN (7-17) mg/dL Creatinine (0.52-1.04) mg/dL Est GFR (CKD-EPI)AfAm (>60 ml/min/1.73 sqM) Est GFR (CKD-EPI)NonAf (>60 ml/min/1.73 sqM) Glucose (74-99) mg/dL Calcium (8.4-10.2) mg/dL Total Bilirubin (0.2-1.3) mg/dL AST (14-36) U/L ALT (4-34) U/L Alkaline Phosphatase (38-126) U/L C-Reactive Protein (<10.0) mg/L Total Protein (6.3-8.2) g/dL Albumin (3.5-5.0) g/dL Amylase (30-110) U/L Lipase (23-300) U/L Urine Color Urine Appearance (Clear) Urine pH (5.0-8.0) Ur Specific [place] (1.001-1.035) Urine Protein (Negative) Urine Glucose (UA) (Negative) Urine Ketones (Negative) Urine Blood (Negative) Urine Nitrite (Negative) Urine Bilirubin (Negative) Urine Urobilinogen (<2.0) mg/dL Ur Leukocyte Esterase (Negative) Urine RBC (0-5) /hpf Ur Squamous Epith Cells (0-4) /hpf Urine Bacteria (None) /hpf Urine Mucus (None) /hpf Urine Trichomonas (None) /hpf Urine HCG, Qual Not Detected (Not Detectd) Disposition Clinical Impression: Abdominal pain, Trichomonas infection Disposition: HOME SELF-CARE Condition: Fair Instructions (If sedation given, give patient instructions): Abdominal Pain (ED), Trichomoniasis (ED) Is patient prescribed a controlled substance at d/c from ED?: No Referrals: Olvin Keenan MD [Primary Care Provider] - 1-2 days
[2019-04-11 01:39] LABS: Anisocytosis Slight; Basophils # (A) 0.1 k/uL (0-0.2); Basophils % (A) 1 %; Eosinophils # (A) 0.4 k/uL (0-0.7); Eosinophils % (A) 3 %; HCT 37.6 % (34.0-46.0); HGB 11.4 gm/dL (11.4-16.0); Hypochromasia Moderate; Lymphocytes # (A) 2.8 k/uL (1.0-4.8); Lymphocytes % (A) 26 %; MCH 21.7 pg (25.0-35.0); MCHC 30.3 g/dL (31.0-37.0); MCV 71.4 fL (80.0-100.0); Mean Platelet Volume 6.9; Microcytosis Moderate; Monocytes # (A) 0.4 k/uL (0-1.0); Monocytes % (A) 4 %; Neutrophils # (A) 6.9 k/uL (1.3-7.7); Neutrophils % (A) 65 %; Platelet Count 323 k/uL (150-450); RBC 5.27 m/uL (3.80-5.40); RDW 16.6 % (11.5-15.5); WBC 10.7 k/uL (3.8-10.6)
[2019-04-11 01:48] LABS: Appearance,Urine Cloudy (Clear); Bacteria,Urine Rare /hpf; Bilirubin,Urine Negative (Negative); Blood,Urine Negative (Negative); Color,Urine Yellow; Glucose,Urine (UA) Negative (Negative); Ketones,Urine Negative (Negative); Leukocyte Esterase,Urine Large (Negative); Mucus,Urine Rare /hpf; Nitrite,Urine Negative (Negative); Protein,Urine Trace (Negative); RBC,Urine 11 /hpf (0-5); Specific Gravity,Urine 1.014 (1.001-1.035); Squamous Epithelial Cell,Urine 2 /hpf (0-4); Trichomonas,Urine Rare /hpf; WBC,Urine 40 /hpf (0-5)
[2019-04-11 01:51] LABS: ALT 30 U/L (4-34); AST 24 U/L (14-36); African American GFR (CKD) >90 (>60 ml/min/1.73 sqM); Albumin 3.9 g/dL (3.5-5.0); Alkaline Phosphatase 127 U/L (38-126); Amylase 30 U/L (30-110); Anion Gap 10 mmol/L; Blood Urea Nitrogen 12 mg/dL (7-17); C Reactive Protein 18.7 mg/L (<10.0); Calcium 9.2 mg/dL (8.4-10.2); Carbon Dioxide 22 mmol/L (22-30); Chloride 109 mmol/L (98-107); Glucose 99 mg/dL (74-99); Non-African American GFR(CKD) 84 (>60 ml/min/1.73 sqM); Potassium 3.7 mmol/L (3.5-5.1); Sodium 141 mmol/L (137-145); Total Bilirubin 0.4 mg/dL (0.2-1.3); Total Protein 6.9 g/dL (6.3-8.2)
[2019-04-11] MEDS ORDERED: metroNIDAZOLE 500 MG TAB PO STA (01:52)
[2019-04-11] MEDS ORDERED: HYDROcodone/APAP 5-325MG 1 EACH TAB PO STA (01:58)
[2019-04-11 02:21] VITALS: BP 106/52; PULSE 105; TEMP 99
[2019-04-12 08:44] LABS: C. trachomatis,PCR Negative (Neg,Equiv); Chlamydia trachomatis Source Urine; N. gonorrhoeae,PCR Negative (Neg,Equiv); Neisseria Source Urine
== END 2019-04-11 02:23 | disposition home or self-care (01) ==
LOC: EC 00:59
DX: A59.9 Trichomoniasis, unspecified (principal); M79.7 Fibromyalgia; K21.9 Gastro-esophageal reflux disease without esophagitis; K22.6 Gastro-esophageal laceration-hemorrhage syndrome; E78.5 Hyperlipidemia, unspecified; F31.9 Bipolar disorder, unspecified; F41.9 Anxiety disorder, unspecified; Z79.899 Other long term (current) drug therapy; Z90.49 Acquired absence of other specified parts of digestive tract; Z98.51 Tubal ligation status
CPT/HCPCS: 36415; 80053; 82150; 83690; 85025; 86140; 81001; 81025; 87491; 87591; 87086; 99284; 96374; J2405

== ENCOUNTER 2019-04-11 16:29 | Emergency (ER) | payer OTHER ==
[2019-04-11 16:56] VITALS: RESP 18; TEMP 98.6
[2019-04-11] MEDS ORDERED: KETOROLAC 30 MG/ML 1 ML VIAL IVP STA (17:27)
[2019-04-11] MEDS ORDERED: DICYCLOMINE 10 MG/ML 2 ML AMP IM STA (17:27)
[2019-04-11] MEDS ORDERED: SODIUM CHLORIDE 0.9% 1,000 ML IV STA (17:27)
[2019-04-11] MEDS ORDERED: ONDANSETRON 4 MG/2 ML VIAL IVP STA (17:27)
[2019-04-11] MEDS ORDERED: PANTOPRAZOLE 40 MG/10 ML VIAL IVP STA (17:27)
[2019-04-11 17:48] VITALS: PULSE 87
[2019-04-11 17:54] LABS: Anisocytosis Slight; Basophils % (A) 0 %; Eosinophils # (A) 0.3 k/uL (0-0.7); Eosinophils % (A) 3 %; HCT 37.4 % (34.0-46.0); HGB 11.6 gm/dL (11.4-16.0); Hypochromasia Moderate; Lymphocytes # (A) 2.3 k/uL (1.0-4.8); Lymphocytes % (A) 29 %; MCH 22.1 pg (25.0-35.0); MCHC 30.9 g/dL (31.0-37.0); MCV 71.4 fL (80.0-100.0); Mean Platelet Volume 7.4; Microcytosis Moderate; Monocytes # (A) 0.4 k/uL (0-1.0); Monocytes % (A) 5 %; Neutrophils # (A) 4.9 k/uL (1.3-7.7); Neutrophils % (A) 61 %; Platelet Count 340 k/uL (150-450); RBC 5.24 m/uL (3.80-5.40); RDW 16.7 % (11.5-15.5)
[2019-04-11 18:02] LABS: ALT 35 U/L (4-34); AST 31 U/L (14-36); African American GFR (CKD) 80 (>60 ml/min/1.73 sqM); Albumin 3.8 g/dL (3.5-5.0); Alkaline Phosphatase 122 U/L (38-126); Amylase <30 U/L (30-110); Anion Gap 8 mmol/L; Blood Urea Nitrogen 13 mg/dL (7-17); Carbon Dioxide 23 mmol/L (22-30); Chloride 109 mmol/L (98-107); Glucose 90 mg/dL (74-99); Non-African American GFR(CKD) 69 (>60 ml/min/1.73 sqM); Potassium 3.7 mmol/L (3.5-5.1); Sodium 140 mmol/L (137-145); Total Bilirubin 0.5 mg/dL (0.2-1.3); Total Protein 6.9 g/dL (6.3-8.2)
[2019-04-11 18:03] LABS: Appearance,Urine Clear (Clear); Bilirubin,Urine Negative (Negative); Blood,Urine Negative (Negative); Color,Urine Yellow; Glucose,Urine (UA) Negative (Negative); Hyaline Casts,Urine 1 /lpf (0-2); Ketones,Urine Negative (Negative); Leukocyte Esterase,Urine Large (Negative); Mucus,Urine Occasional /hpf; Nitrite,Urine Negative (Negative); PH, Urine 6.5 (5.0-8.0); Protein,Urine Negative (Negative); RBC,Urine 25 /hpf (0-5); Specific Gravity,Urine 1.019 (1.001-1.035); Squamous Epithelial Cell,Urine 1 /hpf (0-4); Urobilinogen,Urine <2.0 mg/dL (<2.0); WBC,Urine 37 /hpf (0-5)
[2019-04-11] MEDS ORDERED: MORPHINE SULFATE 4 MG/ML SYRINGE IVP STA (18:15)
--- NOTE | 2019-04-11 19:24 | CT ---
EXAMINATION TYPE: CT abdomen pelvis w con DATE OF EXAM: 04/11/2019 COMPARISON: 11/30/2018 HISTORY: Abdominal pain, from belly button down. Hx IBS, gall/kidney stones, GI bleed. CT DLP: 2990.4 mGycm Automated exposure control for dose reduction was used. CONTRAST: Performed with IV Contrast, patient injected with 100 mL of Isovue 300. Lung bases are clear. There is no pleural effusion. Heart size is normal. There is no pericardial eff usion. Liver spleen stomach pancreas appear normal. Bile ducts are not dilated. There are clips from cholecystectomy. There is no adrenal mass. Kidneys have normal size and contour. There is 8 mm calculus at the right r enal pelvis. There is no hydronephrosis. Ureters are not dilated. There is no retroperitoneal adenopa thy. Bladder distends smoothly. There is no inguinal hernia. There is no free fluid in the pelvis. Uterus is anteverted. There are clips from tubal ligation. Appendix is not definitely seen. There is no sign of thickened appendix. There is no mesenteric edema. There is no ascites or free air. There is no si gn of a bowel obstruction. Lumbar spine is intact. Bony pelvis is intact. IMPRESSION: Nonobstructing right renal calculus. There is clearing of small left renal calculus compared to old e xam. No sign of acute abdomen and pelvis. Right renal calculus has migrated slightly compared to old exam.
[2019-04-11] MEDS ORDERED: ONDANSETRON 4 MG ODT STARTER PACK 2 TAB BTL PO STA (19:44)
--- NOTE | 2019-04-11 19:47 | ED ---
Abdominal Pain HPI - General Chief Complaint: Abdominal Pain Stated Complaint: Abd Pain Time Seen by Provider: 04/11/19 17:09 Source: patient Mode of arrival: wheelchair Limitations: no limitations - History of Present Illness Initial Comments: Patient is a 29-year-old female with history of IBS presenting to the emergency department with a chief complaint of abdominal pain. Patient states she was in the ED this morning was discharged with Trichomonas. She reports that she was given antibiotics and discharge. She reports abdominal pain the right lower quadrant region that developed earlier today. She reports the pain is constant. Patient reports that she has been evaluated by Dr. Vyas and [facility] and they have not found any reason for her pain. She states that patient denies any urinary symptoms. She denies night sweats fevers or chills. Denies taking any other medications alleviate his symptoms. Denies chest pain shortness of breath or back pain. Denies hematuria, hematochezia or melena. - Related Data Home Medications Medication Instructions Recorded Confirmed Pantoprazole [Protonix] 40 mg PO BID 01/20/18 01/02/19 Pravastatin Sodium [Pravachol] 20 mg PO HS 01/20/18 01/02/19 Gabapentin 600 mg PO TID 07/03/18 01/02/19 SUMAtriptan SUCCINATE [Imitrex] 50 mg PO BID PRN 07/03/18 01/02/19 Verapamil HCl [Verapamil ER] 180 mg PO HS 09/24/18 01/02/19 acetaZOLAMIDE [Diamox Sequels] 500 mg PO BID 09/24/18 01/02/19 ARIPiprazole [Abilify] 20 mg PO HS 11/24/18 01/02/19 Amitriptyline HCl [Elavil] 10 mg PO BID 11/24/18 01/02/19 Hydrochlorothiazide [Hydrodiuril] 12.5 mg PO DAILY 11/24/18 01/02/19 LORazepam [Ativan] 1 mg PO HS 11/24/18 01/02/19 Previous Rx's Medication Instructions Recorded Dicyclomine [Bentyl] 20 mg PO QID #20 tablet 07/15/18 Cephalexin [Keflex] 500 mg PO Q12HR 10 Days #20 cap 04/08/19 Tamsulosin [Flomax] 0.4 mg PO DAILY #10 cap 04/08/19 Cephalexin [Keflex] 500 mg PO Q6HR 10 Days #40 cap 04/09/19 Ondansetron Odt [Zofran Odt] 4 mg PO Q8HR PRN #10 tab 04/11/19 Allergies Allergy/AdvReac Type Severity Reaction Status Date / Time No Known Allergies Allergy Verified 04/11/19 16:56 Review of Systems ROS Statement: Those systems with pertinent positive or pertinent negative responses have been documented in the HPI. ROS Other: All systems not noted in ROS Statement are negative. Past Medical History Past Medical History: Fibromyalgia, GERD/Reflux, GI Bleed, Hyperlipidemia Additional Past Medical History / Comment(s): gallstones, kidney stones, IBS, migraines, tachycardia, Martine- Guevara tear History of Any Multi-Drug Resistant Organisms: None Reported Past Surgical History: Section, Cholecystectomy, Tubal Ligation Additional Past Surgical History / Comment(s): neck biopsy (lymph node ) d&c Past Anesthesia/Blood Transfusion Reactions: No Reported Reaction Past Psychological History: Anxiety, Bipolar, Depression, PTSD Smoking Status: Never smoker Past Alcohol Use History: None Reported Past Drug Use History: None Reported - Past Family History Mother Family Medical History: Diabetes Mellitus, Hyperlipidemia, Hypertension, Myocardial Infarction ([place]) Additional Family Medical History / Comment(s): [place] X 3 Father Family Medical History: Congestive Heart Failure (CHF), Hyperlipidemia, Hypertension, Myocardial Infarction ([place]) Additional Family Medical History / Comment(s): mi x 3 Son(s) Family Medical History: No Reported History General Exam Limitations: no limitations General appearance: alert, in no apparent distress, obese Head exam: Present: atraumatic, normocephalic, normal inspection Eye exam: Present: normal appearance Pupils: Present: normal accommodation ENT exam: Present: normal exam, normal oropharynx, mucous membranes moist, TM's normal bilaterally, normal external ear exam Neck exam: Present: normal inspection, full ROM Respiratory exam: Present: normal lung sounds bilaterally Cardiovascular Exam: Present: regular rate, normal rhythm, normal heart sounds GI/Abdominal exam: Present: soft, tenderness (Right lower quadrant. Positive McBurney point tenderness, negative psoas, positive obturator). Absent: distended, guarding, rebound, bruit, pulsatile mass, hernia Extremities exam: Present: normal inspection, full ROM Back exam: Present: normal inspection, full ROM Neurological exam: Present: alert, oriented X3 Psychiatric exam: Present: normal affect, normal mood Skin exam: Present: warm, dry, intact, normal color Course Vital Signs 04/11/19 04/11/19 16:53 17:48 Temperature 98.6 F Pulse Rate 115 H 87 Respiratory 18 18 Rate Blood Pressure 130/85 118/78 O2 Sat by Pulse 98 98 Oximetry Medical Decision Making - Medical Decision Making Patient is a 29-year-old female presenting to the emergency Department with chief complaint of abdominal pain on exam patient has right lower quadrant abdom inal pain with positive McBurney point tenderness and obturator sign. Patient has been previously evaluated for this pain with no actual diagnosis. She was treated yesterday for Trichomonas. Patient was given fluids and antiemetics and analgesia. CBC shows no leukocytosis. UA shows blood and no white blood cells. Decreased amount of blood compared to yesterday. CT of abdomen and pelvis show s a right-sided renal colic leg but otherwise a nonacute abdomen. No signs of appendicitis. Denies hematuria, hematochezia or melena. Patient given a Zofran starter pack and a prescription of the medication. Patient vised to follow-up with her GI specialist. Strict return parameters were thoroughly discussed the patient is upsetting agreeable. Case discussed with physician. - Lab Data Result diagrams: 04/11/19 17:35 04/11/19 17:35 Lab Results 04/11/19 04/11/19 04/11/19 Range/Units 17:35 17:35 17:35 WBC 8.0 (3.8-10.6) k/uL RBC 5.24 (3.80-5.40) m/uL Hgb 11.6 (11.4-16.0) gm/dL Hct 37.4 (34.0-46.0) % MCV 71.4 L (80.0-100.0) fL MCH 22.1 L (25.0-35.0) pg MCHC 30.9 L (31.0-37.0) g/dL RDW 16.7 H (11.5-15.5) % Plt Count 340 (150-450) k/uL Neutrophils % 61 % Lymphocytes % 29 % Monocytes % 5 % Eosinophils % 3 % Basophils % 0 % Neutrophils # 4.9 (1.3-7.7) k/uL Lymphocytes # 2.3 (1.0-4.8) k/uL Monocytes # 0.4 (0-1.0) k/uL Eosinophils # 0.3 (0-0.7) k/uL Basophils # 0.0 (0-0.2) k/uL Hypochromasia Moderate Anisocytosis Slight Microcytosis Moderate Sodium 140 (137-145) mmol/L Potassium 3.7 (3.5-5.1) mmol/L Chloride 109 H (98-107) mmol/L Carbon Dioxide 23 (22-30) mmol/L Anion Gap 8 mmol/L BUN 13 (7-17) mg/dL Creatinine 1.08 H (0.52-1.04) mg/dL Est GFR (CKD-EPI)AfAm 80 (>60 ml/min/1.73 sqM) Est GFR (CKD-EPI)NonAf 69 (>60 ml/min/1.73 sqM) Glucose 90 (74-99) mg/dL Calcium 9.0 (8.4-10.2) mg/dL Total Bilirubin 0.5 (0.2-1.3) mg/dL AST 31 (14-36) U/L ALT 35 H (4-34) U/L Alkaline Phosphatase 122 (38-126) U/L Total Protein 6.9 (6.3-8.2) g/dL Albumin 3.8 (3.5-5.0) g/dL Amylase <30 L (30-110) U/L Lipase 77 (23-300) U/L Urine Color Yellow Urine Appearance Clear (Clear) Urine pH 6.5 (5.0-8.0) Ur Specific [place] 1.019 (1.001-1.035) Urine Protein Negative (Negative) Urine Glucose (UA) Negative (Negative) Urine Ketones Negative (Negative) Urine Blood Negative (Negative) Urine Nitrite Negative (Negative) Urine Bilirubin Negative (Negative) Urine Urobilinogen <2.0 (<2.0) mg/dL Ur Leukocyte Esterase Large H (Negative) Urine RBC 25 H (0-5) /hpf Ur Squamous Epith Cells 1 (0-4) /hpf Hyaline Casts 1 (0-2) /lpf Urine Mucus Occasional H (None) /hpf Disposition Clinical Impression: Abdominal pain, Nausea & vomiting Disposition: HOME SELF-CARE Condition: Stable Instructions (If sedation given, give patient instructions): Abdominal Pain (ED) Additional Instructions: Please follow with primary care. Take prescribed medication as directed. Return to emergency department if symptoms worsen. Prescriptions: Ondansetron Odt [Zofran Odt] 4 mg PO Q8HR PRN #10 tab PRN Reason: Nausea Is patient prescribed a controlled substance at d/c from ED?: No Referrals: Olvin Keenan MD [Primary Care Provider] - 1-2 days Time of Disposition: 19:47
[2019-04-11 20:08] VITALS: BP 121/78
== END 2019-04-11 20:13 | disposition home or self-care (01) ==
LOC: EC 16:29
DX: R10.31 Right lower quadrant pain (principal); R11.2 Nausea with vomiting, unspecified; K21.9 Gastro-esophageal reflux disease without esophagitis; E78.5 Hyperlipidemia, unspecified; F41.9 Anxiety disorder, unspecified; F31.9 Bipolar disorder, unspecified; Z79.899 Other long term (current) drug therapy
CPT/HCPCS: 99284; 36415; 80053; 82150; 83690; 85025; 81001; 74177; 96374; 96375 ×3; 96361; 96372; J2270; J0500; J2405; J1885; S0119; C9113; Q9967

== ENCOUNTER 2019-05-04 20:14 | Emergency (ER) | payer OTHER ==
--- NOTE | 2019-05-04 21:46 | ED ---
Chest Pain HPI - General Chief Complaint: Chest Pain Stated Complaint: Chest pain Time Seen by Provider: 05/04/19 21:16 Source: patient Mode of arrival: wheelchair Limitations: no limitations - History of Present Illness Initial Comments: This patient is a 29-year-old woman who presents to be evaluated for left-sided chest pain. The patient states that her symptoms started around 4 PM, she was walking to the other hospital in [facility] to have blood drawn as part of preoperative evaluation to have a neurologic procedure for migraine. The patient states that she started having some left-sided chest pressure, mild, constant. Patient has had this previously, and she has been seen by cardiology for this and for persistently elevated heart rate. Patient states that she has also had a little bit of associated nausea. The patient is not having dyspnea, diaphoresis, vomiting or other anginal symptoms. She states that she does feel slightly better now. MD Complaint: chest pain Onset/Timin -: hour(s) Onset: during exertion Pain Location: left chest Pain Radiation: none Severity: mild Quality: heaviness Consistency: now resolved Improves With: nothing Worsens With: nothing Treatments Prior to Arrival: none - Related Data Home Medications Medication Instructions Recorded Confirmed Pantoprazole [Protonix] 40 mg PO BID 01/20/18 01/02/19 Pravastatin Sodium [Pravachol] 20 mg PO HS 01/20/18 01/02/19 Gabapentin 600 mg PO TID 07/03/18 01/02/19 SUMAtriptan SUCCINATE [Imitrex] 50 mg PO BID PRN 07/03/18 01/02/19 Verapamil HCl [Verapamil ER] 180 mg PO HS 09/24/18 01/02/19 acetaZOLAMIDE [Diamox Sequels] 500 mg PO BID 09/24/18 01/02/19 ARIPiprazole [Abilify] 20 mg PO HS 11/24/18 01/02/19 Amitriptyline HCl [Elavil] 10 mg PO BID 11/24/18 01/02/19 Hydrochlorothiazide [Hydrodiuril] 12.5 mg PO DAILY 11/24/18 01/02/19 LORazepam [Ativan] 1 mg PO HS 11/24/18 01/02/19 Previous Rx's Medication Instructions Recorded Dicyclomine [Bentyl] 20 mg PO QID #20 tablet 03/20/19 Cephalexin [Keflex] 500 mg PO Q12HR 10 Days #20 cap 04/08/19 Tamsulosin [Flomax] 0.4 mg PO DAILY #10 cap 04/08/19 Cephalexin [Keflex] 500 mg PO Q6HR 10 Days #40 cap 04/09/19 Ondansetron Odt [Zofran Odt] 4 mg PO Q8HR PRN #10 tab 04/11/19 Allergies Allergy/AdvReac Type Severity Reaction Status Date / Time No Known Allergies Allergy Verified 05/04/19 20:34 Review of Systems ROS Statement: Those systems with pertinent positive or pertinent negative responses have been documented in the HPI. ROS Other: All systems not noted in ROS Statement are negative. Constitutional: Denies: fever, chills Respiratory: Denies: cough, dyspnea Cardiovascular: Reports: as per HPI, chest pain. Denies: palpitations, dyspnea on exertion, orthopnea, edema, syncope Gastrointestinal: Reports: nausea. Denies: abdominal pain, vomiting, diarrhea Genitourinary: Denies: dysuria, hematuria Musculoskeletal: Denies: back pain Skin: Denies: rash Neurological: Reports: vertigo. Denies: headache, weakness, numbness EKG Findings - EKG Results: EKG: interpreted by ERMD, sinus rhythm, normal axis, normal ST/T EKG shows: tachycardia (Rate 1:30 bpm) Past Medical History Past Medical History: Fibromyalgia, GERD/Reflux, GI Bleed, Hyperlipidemia Additional Past Medical History / Comment(s): gallstones, kidney stones, IBS, migraines, tachycardia, Martine- Guevara tear History of Any Multi-Drug Resistant Organisms: None Reported Past Surgical History: Section, Cholecystectomy, Tubal Ligation Additional Past Surgical History / Comment(s): neck biopsy (lymph node ) d&c Past Anesthesia/Blood Transfusion Reactions: No Reported Reaction Past Psychological History: Anxiety, Bipolar, Depression, PTSD Smoking Status: Never smoker Past Alcohol Use History: None Reported Past Drug Use History: None Reported - Past Family History Mother Family Medical History: Diabetes Mellitus, Hyperlipidemia, Hypertension, Myocardial Infarction ([place]) Additional Family Medical History / Comment(s): [place] X 3 Father Family Medical History: Congestive Heart Failure (CHF), Hyperlipidemia, Hypertension, Myocardial Infarction ([place]) Additional Family Medical History / Comment(s): mi x 3 Son(s) Family Medical History: No Reported History General Exam Limitations: no limitations General appearance: alert, in no apparent distress, obese Head exam: Present: atraumatic, normocephalic Eye exam: Present: normal appearance. Absent: scleral icterus, conjunctival injection ENT exam: Present: normal oropharynx Neck exam: Present: normal inspection Respiratory exam: Present: normal lung sounds bilaterally. Absent: respiratory distress, wheezes, rales, rhonchi, stridor Cardiovascular Exam: Present: normal rhythm, tachycardia (Rate approximately 124 bpm), normal heart sounds. Absent: systolic murmur, diastolic murmur, rubs, gallop GI/Abdominal exam: Present: soft. Absent: distended, tenderness, guarding, rebound, rigid, mass Extremities exam: Present: normal inspection, normal capillary refill. Absent: pedal edema, calf tenderness Back exam: Present: normal inspection. Absent: CVA tenderness (R), CVA tenderness (L) Neurological exam: Present: alert Skin exam: Present: warm, dry, intact, normal color. Absent: rash Course Vital Signs 05/04/19 05/04/19 05/05/19 20:32 22:01 00:41 Temperature 98.0 F 98.2 F Pulse Rate 130 H 130 H 118 H Respiratory 22 18 18 Rate Blood Pressure 126/84 124/64 136/76 O2 Sat by Pulse 99 98 98 Oximetry 05/05/19 02:00 Temperature Pulse Rate 133 H Respiratory 19 Rate Blood Pressure 141/87 O2 Sat by Pulse 98 Oximetry Disposition Clinical Impression: Tachycardia, Chest pain Disposition: HOME SELF-CARE Condition: Good Instructions (If sedation given, give patient instructions): Chest Pain (ED) Is patient prescribed a controlled substance at d/c from ED?: No Referrals: Olvin Keenan MD [Primary Care Provider] - 1-2 days
[2019-05-04 22:08] LABS: Anisocytosis Slight; Basophils # (A) 0.1 k/uL (0-0.2); Basophils % (A) 1 %; Eosinophils # (A) 0.2 k/uL (0-0.7); Eosinophils % (A) 2 %; HCT 36.5 % (34.0-46.0); HGB 11.4 gm/dL (11.4-16.0); Hypochromasia Moderate; Lymphocytes # (A) 1.9 k/uL (1.0-4.8); Lymphocytes % (A) 22 %; MCH 22.6 pg (25.0-35.0); MCHC 31.3 g/dL (31.0-37.0); MCV 72.4 fL (80.0-100.0); Mean Platelet Volume 7.3; Microcytosis Moderate; Monocytes # (A) 0.3 k/uL (0-1.0); Monocytes % (A) 4 %; Neutrophils # (A) 6.1 k/uL (1.3-7.7); Neutrophils % (A) 70 %; Platelet Count 292 k/uL (150-450); RBC 5.03 m/uL (3.80-5.40); RDW 16.6 % (11.5-15.5); WBC 8.7 k/uL (3.8-10.6)
--- NOTE | 2019-05-04 22:17 | XR ---
EXAMINATION TYPE: XR chest 2V DATE OF EXAM: 05/04/2019 COMPARISON: 04/08/2019 HISTORY: Chest pain TECHNIQUE: FINDINGS: Heart and mediastinum are normal. Lungs are clear. Diaphragm is normal. Bony thorax appears normal. IMPRESSION: Normal chest. No change.
[2019-05-04 22:25] LABS: D-Dimer 0.35 mg/L FEU (<0.60); INR 0.9 (<1.2); Partial Thromboplastin Time 22.6 sec (22.0-30.0); Prothrombin Time 9.8 sec (9.0-12.0)
[2019-05-04 22:25] LABS: Appearance,Urine Cloudy (Clear); Bacteria,Urine Rare /hpf; Bilirubin,Urine Negative (Negative); Blood,Urine Moderate (Negative); Calcium Oxalate Crystals,Urine Occasional /hpf; Color,Urine Yellow; Glucose,Urine (UA) Negative (Negative); Ketones,Urine Negative (Negative); Leukocyte Esterase,Urine Negative (Negative); Mucus,Urine Many /hpf; Nitrite,Urine Negative (Negative); PH, Urine 5.5 (5.0-8.0); Protein,Urine 1+ (Negative); RBC,Urine 108 /hpf (0-5); Specific Gravity,Urine 1.033 (1.001-1.035); Squamous Epithelial Cell,Urine 10 /hpf (0-4); WBC,Urine 4 /hpf (0-5)
[2019-05-04 22:27] LABS: ALT 41 U/L (4-34); AST 29 U/L (14-36); African American GFR (CKD) >90 (>60 ml/min/1.73 sqM); Albumin 3.8 g/dL (3.5-5.0); Alkaline Phosphatase 118 U/L (38-126); Amylase 39 U/L (30-110); Anion Gap 8 mmol/L; Blood Urea Nitrogen 13 mg/dL (7-17); Calcium 9.1 mg/dL (8.4-10.2); Carbon Dioxide 25 mmol/L (22-30); Chloride 107 mmol/L (98-107); Glucose 106 mg/dL (74-99); Magnesium 1.8 mg/dL (1.6-2.3); Non-African American GFR(CKD) >90 (>60 ml/min/1.73 sqM); Potassium 3.7 mmol/L (3.5-5.1); Sodium 140 mmol/L (137-145); Total Bilirubin 0.5 mg/dL (0.2-1.3); Total Protein 6.7 g/dL (6.3-8.2)
[2019-05-04] MEDS ORDERED: SODIUM CHLORIDE 0.9% 1,000 ML IV ONE (22:52)
[2019-05-04] MEDS ORDERED: KETOROLAC 30 MG/ML 1 ML VIAL IVP STA (23:24)
[2019-05-05] MEDS ORDERED: traMADol 50 MG TAB PO STA (00:50)
[2019-05-05] MEDS ORDERED: SODIUM CHLORIDE 0.9% 500 ML 500 ML IV STA (01:20)
[2019-05-05 03:31] VITALS: BP 132/79; PULSE 130; RESP 20; TEMP 98
== END 2019-05-05 03:37 | disposition home or self-care (01) ==
LOC: EC 20:14
DX: R07.9 Chest pain, unspecified (principal); R00.0 Tachycardia, unspecified; R11.0 Nausea; K21.9 Gastro-esophageal reflux disease without esophagitis; E78.5 Hyperlipidemia, unspecified; F41.9 Anxiety disorder, unspecified; F31.9 Bipolar disorder, unspecified; Z79.899 Other long term (current) drug therapy
CPT/HCPCS: 36415; 71046; 80053; 81001; 81025; 82150; 83690; 83735; 84484; 85025; 85379; 85610; 85730; 93005; 96360; 96361; 99285

== ENCOUNTER 2019-06-23 20:54 | Emergency (ER) | payer OTHER ==
[2019-06-23] MEDS ORDERED: SODIUM CHLORIDE 0.9% 1,000 ML IV STA (21:09)
[2019-06-23] MEDS ORDERED: MORPHINE SULFATE 4 MG/ML SYRINGE IV STA (21:09)
[2019-06-23 21:40] LABS: Basophils % (A) 0 %; Eosinophils # (A) 0.2 k/uL (0-0.7); Eosinophils % (A) 2 %; HCT 36.8 % (34.0-46.0); HGB 11.5 gm/dL (11.4-16.0); Hypochromasia Moderate; Lymphocytes # (A) 2.5 k/uL (1.0-4.8); Lymphocytes % (A) 26 %; MCH 22.9 pg (25.0-35.0); MCHC 31.2 g/dL (31.0-37.0); MCV 73.5 fL (80.0-100.0); Mean Platelet Volume 7.3; Microcytosis Slight; Monocytes # (A) 0.3 k/uL (0-1.0); Monocytes % (A) 3 %; Neutrophils # (A) 6.4 k/uL (1.3-7.7); Neutrophils % (A) 66 %; Platelet Count 353 k/uL (150-450); RDW 15.6 % (11.5-15.5); WBC 9.6 k/uL (3.8-10.6)
[2019-06-23 21:48] LABS: Appearance,Urine Cloudy (Clear); Bacteria,Urine Occasional /hpf; Bilirubin,Urine Negative (Negative); Blood,Urine Trace (Negative); Budding Yeast,Urine Occasional /hpf; Color,Urine Light Yellow; Glucose,Urine (UA) Negative (Negative); Ketones,Urine Negative (Negative); Leukocyte Esterase,Urine Negative (Negative); Mucus,Urine Rare /hpf; Nitrite,Urine Negative (Negative); Protein,Urine Negative (Negative); RBC,Urine 3 /hpf (0-5); Specific Gravity,Urine 1.012 (1.001-1.035); Squamous Epithelial Cell,Urine 1 /hpf (0-4); WBC,Urine 5 /hpf (0-5)
[2019-06-23 21:48] LABS: ALT 32 U/L (4-34); AST 28 U/L (14-36); African American GFR (CKD) >90 (>60 ml/min/1.73 sqM); Alkaline Phosphatase 136 U/L (38-126); Anion Gap 8 mmol/L; Blood Urea Nitrogen 11 mg/dL (7-17); Calcium 9.2 mg/dL (8.4-10.2); Carbon Dioxide 28 mmol/L (22-30); Chloride 103 mmol/L (98-107); Glucose 120 mg/dL (74-99); Non-African American GFR(CKD) >90 (>60 ml/min/1.73 sqM); Potassium 3.8 mmol/L (3.5-5.1); Sodium 139 mmol/L (137-145); Total Bilirubin 0.3 mg/dL (0.2-1.3); Total Protein 6.9 g/dL (6.3-8.2)
[2019-06-23] MEDS ORDERED: ONDANSETRON 4 MG/2 ML VIAL IVP STA (21:54)
--- NOTE | 2019-06-23 22:01 | XR ---
EXAMINATION TYPE: XR KUB DATE OF EXAM: 06/23/2019 COMPARISON: 01/02/2019 HISTORY: Abdominal pain TECHNIQUE: 2 views FINDINGS: 2 views upright were obtained and show no sign of intestinal obstruction or pneumoperitoneu m. Fecal pattern is normal. There are clips from cholecystectomy. There are clips from tubal ligation . There are no pathologic calcifications over the kidneys. Lung bases are clear. IMPRESSION: Nonacute abdomen.
[2019-06-23 23:25] VITALS: BP 123/81; RESP 16
[2019-06-23] MEDS ORDERED: SODIUM CHLORIDE 0.9% 500 ML 500 ML IV ONE (23:28)
--- NOTE | 2019-06-23 23:33 | US ---
EXAMINATION TYPE: US renals and bladder DATE OF EXAM: 06/23/2019 COMPARISON: CT, US CLINICAL HISTORY: flank pain. Right flank pain x 1 day. Hx kidney stones. EXAM MEASUREMENTS: Right Kidney: 11.5 x 5.5 x 5.2 cm Left Kidney: 11.2 x 4.9 x 3.9 cm Right Kidney: Hyperechoic area seen medially measurin.1 x 0.6 x 0.5 cm. Left Kidney: Hyperechoic area seen lower pole/medially measurin.9 x 0.8 x 0.4 cm. Bladder: Limited evaluation. Bladder not fully distended. Bilateral Jets seen: Yes IMPRESSION: There is probably a calculus lower pole of the left kidney. Calculus at the right renal pelvis wo naeem dence of obstruction. This is unchanged compared to CT scan of 04/11/2019. No hydronephrosis. No susp icious renal mass.
--- NOTE | 2019-06-23 23:41 | ED ---
General Adult HPI - General Chief complaint: Abdominal Pain Stated complaint: right side pain Time Seen by Provider: 06/23/19 21:02 Source: patient, RN notes reviewed, old records reviewed Mode of arrival: ambulatory Limitations: no limitations - History of Present Illness Initial comments: 29-year-old female patient past history significant for fibromyalgia, GERD, hyperlipidemia, renal calculi, lymphoma presents to ED she complained of right flank pain. Patient reports this lasted a she's been having pain in her right flank region. Patient reports that she did have a nonstress right renal calculi identified on CT abdomen and pelvis on 04/11/19. Reports this pain feels similar. Reports some nausea without emesis. Believe she may have a kidney stone. Denies any other complaints. Systemic: Pt denies fatigue, fever/chills, rash. Pt denies weakness, night sweats, weight loss. Neuro: Pt denies headache, visual disturbances, syncope or pre-syncope. HEENT: Pt denies ocular discharge or irritation, otalgia, rhinorrhea, pharyngitis or notable lymphadenopathy. Cardiopulmonary: Pt denies chest pain, SOB, heart palpitations, dyspnea on exertion. Abdominal/GI: Pt denies abdominal pain, n/v/d. : Pt denies dysuria, burning w/ urination, frequency/urgency. Denies new onset urinary or bowel incontinence. MSK: Pt denies myalgia, loss of strength or function in extremities. Neuro: Pt denies new onset weakness, paresthesias. - Related Data Home Medications Medication Instructions Recorded Confirmed Pantoprazole [Protonix] 40 mg PO BID 01/20/18 01/02/19 Pravastatin Sodium [Pravachol] 20 mg PO HS 01/20/18 01/02/19 Gabapentin 600 mg PO TID 07/03/18 01/02/19 SUMAtriptan SUCCINATE [Imitrex] 50 mg PO BID PRN 07/03/18 01/02/19 Verapamil HCl [Verapamil ER] 180 mg PO HS 09/24/18 01/02/19 acetaZOLAMIDE [Diamox Sequels] 500 mg PO BID 09/24/18 01/02/19 ARIPiprazole [Abilify] 20 mg PO HS 11/24/18 01/02/19 Amitriptyline HCl [Elavil] 10 mg PO BID 11/24/18 01/02/19 Hydrochlorothiazide [Hydrodiuril] 12.5 mg PO DAILY 11/24/18 01/02/19 LORazepam [Ativan] 1 mg PO HS 11/24/18 01/02/19 Previous Rx's Medication Instructions Recorded Dicyclomine [Bentyl] 20 mg PO QID #20 tablet 07/15/18 Cephalexin [Keflex] 500 mg PO Q12HR 10 Days #20 cap 04/08/19 Tamsulosin [Flomax] 0.4 mg PO DAILY #10 cap 04/08/19 Cephalexin [Keflex] 500 mg PO Q6HR 10 Days #40 cap 04/09/19 Ondansetron Odt [Zofran Odt] 4 mg PO Q8HR PRN #10 tab 04/11/19 Allergies Allergy/AdvReac Type Severity Reaction Status Date / Time No Known Allergies Allergy Verified 06/23/19 20:59 Review of Systems ROS Statement: Those systems with pertinent positive or pertinent negative responses have been documented in the HPI. ROS Other: All systems not noted in ROS Statement are negative. Past Medical History Past Medical History: Fibromyalgia, GERD/Reflux, GI Bleed, Hyperlipidemia Additional Past Medical History / Comment(s): gallstones, kidney stones, IBS, migraines, tachycardia, Martine- Guevara tear History of Any Multi-Drug Resistant Organisms: None Reported Past Surgical History: Section, Cholecystectomy, Tubal Ligation Additional Past Surgical History / Comment(s): neck biopsy (lymph node ) d&c Past Anesthesia/Blood Transfusion Reactions: No Reported Reaction Past Psychological History: Anxiety, Bipolar, Depression, PTSD Smoking Status: Never smoker Past Alcohol Use History: None Reported Past Drug Use History: None Reported - Past Family History Mother Family Medical History: Diabetes Mellitus, Hyperlipidemia, Hypertension, Myocardial Infarction ([place]) Additional Family Medical History / Comment(s): [place] X 3 Father Family Medical History: Congestive Heart Failure (CHF), Hyperlipidemia, Hypertension, Myocardial Infarction ([place]) Additional Family Medical History / Comment(s): mi x 3 Son(s) Family Medical History: No Reported History General Exam - General Exam Comments Initial Comments: Constitutional: NAD, AOX3, Pt has pleasant affect. HEENT: NC/AT, trachea midline, neck supple, no lymphadenopathy. Posterior pharynx non erythematous, without exudates. External ears appear normal, without discharge. Mucous membranes moist. Eyes PERRLA, EOM intact. There is no scleral icterus. No pallor noted. Cardiopulmonary: RRR, no murmurs, rubs or gallops, no JVD noted. Lungs CTAB in anterior and posterior green. No peripheral edema. Abdominal exam: Abdomen soft and non-distended. Abdomen non-tender to palpation in all 4 quadrants. Bowel sounds active in LLQ. No hepatosplenomegaly. No ecchymosis. Right flank nontender to palpation. No skin changes. Neuro: CN II-XII grossly intact. No nuchal rigidity. No raccon eyes, no hanna sign, no hemotympanum. No cervical spinal tenderness. MSK: No posterior calf tenderness bilaterally, homans sign negative bilaterally. Posterior tibialis and radial pulse +2 bilaterally. Sensation intact in upper and lower extremities. Full active ROM in upper and lower extremities, 5/5 stregnth. Limitations: no limitations Course Vital Signs 06/23/19 06/23/19 20:56 23:24 Temperature 99.1 F Pulse Rate 118 H 112 H Respiratory 20 16 Rate Blood Pressure 139/88 123/81 O2 Sat by Pulse 99 96 Oximetry Medical Decision Making - Medical Decision Making 29-year-old female patient presents to ED for 2 days of right flank pain. Patient had a kidney stone. Patient about signs display tachycardia which is baseline for patient. Physical exam displayed right flank nontender palpation. Laboratory investigations were obtained, and were not impressive. Lipase 66, lactic acid 1.4. UA displayed trace blood hCG is negative. KUB displayed no acute abdomen. Ultrasound reveals a bladder were obtained. Bilateral jets are seen. Probable calculus lower pole left kidney. They said the right renal pelvis on evidence of obstruction. Unchanged from computed tomography scan process . No hydronephrosis no suspicious renal mass. Patient be discharged to follow up with primary care provider, and urology, will return to ER if condition worsens. Case discussed with Dr. Osman. - Lab Data Result diagrams: 06/23/19 21:22 06/23/19 21: Lab Results 06/23/19 06/23/19 06/23/19 Range/Units 21:22 21:22 21: WBC 9.6 (3.8-10.6) k/uL RBC 5.00 (3.80-5.40) m/uL Hgb 11.5 (11.4-16.0) gm/dL Hct 36.8 (34.0-46.0) % MCV 73.5 L (80.0-100.0) fL MCH 22.9 L (25.0-35.0) pg MCHC 31.2 (31.0-37.0) g/dL RDW 15.6 H (11.5-15.5) % Plt Count 353 (150-450) k/uL Neutrophils % 66 % Lymphocytes % 26 % Monocytes % 3 % Eosinophils % 2 % Basophils % 0 % Neutrophils # 6.4 (1.3-7.7) k/uL Lymphocytes # 2.5 (1.0-4.8) k/uL Monocytes # 0.3 (0-1.0) k/uL Eosinophils # 0.2 (0-0.7) k/uL Basophils # 0.0 (0-0.2) k/uL Hypochromasia Moderate Microcytosis Slight Sodium 139 (137-145) mmol/L Potassium 3.8 (3.5-5.1) mmol/L Chloride 103 (98-107) mmol/L Carbon Dioxide 28 (22-30) mmol/L Anion Gap 8 mmol/L BUN 11 (7-17) mg/dL Creatinine 0.67 (0.52-1.04) mg/dL Est GFR (CKD-EPI)AfAm >90 (>60 ml/min/1.73 sqM) Est GFR (CKD-EPI)NonAf >90 (>60 ml/min/1.73 sqM) Glucose 120 H (74-99) mg/dL Plasma Lactic Acid Darnell 1.4 (0.7-2.0) mmol/L Calcium 9.2 (8.4-10.2) mg/dL Total Bilirubin 0.3 (0.2-1.3) mg/dL AST 28 (14-36) U/L ALT 32 (4-34) U/L Alkaline Phosphatase 136 H (38-126) U/L Total Protein 6.9 (6.3-8.2) g/dL Albumin 4.0 (3.5-5.0) g/dL Lipase 66 (23-300) U/L Urine Color Urine Appearance (Clear) Urine pH (5.0-8.0) Ur Specific [place] (1.001-1.035) Urine Protein (Negative) Urine Glucose (UA) (Negative) Urine Ketones (Negative) Urine Blood (Negative) Urine Nitrite (Negative) Urine Bilirubin (Negative) Urine Urobilinogen (<2.0) mg/dL Ur Leukocyte Esterase (Negative) Urine RBC (0-5) /hpf Urine WBC (0-5) /hpf Ur Squamous Epith Cells (0-4) /hpf Urine Bacteria (None) /hpf Urine Mucus (None) /hpf Urine Yeast (Budding) (None) /hpf Urine HCG, Qual (Not Detectd) 06/23/19 06/23/19 Range/Units 21:29 21:29 WBC (3.8-10.6) k/uL RBC (3.80-5.40) m/uL Hgb (11.4-16.0) gm/dL Hct (34.0-46.0) % MCV (80.0-100.0) fL MCH (25.0-35.0) pg MCHC (31.0-37.0) g/dL RDW (11.5-15.5) % Plt Count (150-450) k/uL Neutrophils % % Lymphocytes % % Monocytes % % Eosinophils % % Basophils % % Neutrophils # (1.3-7.7) k/uL Lymphocytes # (1.0-4.8) k/uL Monocytes # (0-1.0) k/uL Eosinophils # (0-0.7) k/uL Basophils # (0-0.2) k/uL Hypochromasia Microcytosis Sodium (137-145) mmol/L Potassium (3.5-5.1) mmol/L Chloride (98-107) mmol/L Carbon Dioxide (22-30) mmol/L Anion Gap mmol/L BUN (7-17) mg/dL Creatinine (0.52-1.04) mg/dL Est GFR (CKD-EPI)AfAm (>60 ml/min/1.73 sqM) Est GFR (CKD-EPI)NonAf (>60 ml/min/1.73 sqM) Glucose (74-99) mg/dL Plasma Lactic Acid Darnell (0.7-2.0) mmol/L Calcium (8.4-10.2) mg/dL Total Bilirubin (0.2-1.3) mg/dL AST (14-36) U/L ALT (4-34) U/L Alkaline Phosphatase (38-126) U/L Total Protein (6.3-8.2) g/dL Albumin (3.5-5.0) g/dL Lipase (23-300) U/L Urine Color Light Yellow Urine Appearance Cloudy H (Clear) Urine pH 6.0 (5.0-8.0) Ur Specific [address] 1.012 (1.001-1.035) Urine Protein Negative (Negative) Urine Glucose (UA) Negative (Negative) Urine Ketones Negative (Negative) Urine Blood Trace H (Negative) Urine Nitrite Negative (Negative) Urine Bilirubin Negative (Negative) Urine Urobilinogen 2.0 (<2.0) mg/dL Ur Leukocyte Esterase Negative (Negative) Urine RBC 3 (0-5) /hpf Urine WBC 5 (0-5) /hpf Ur Squamous Epith Cells 1 (0-4) /hpf Urine Bacteria Occasional H (None) /hpf Urine Mucus Rare H (None) /hpf Urine Yeast (Budding) Occasional H (None) /hpf Urine HCG, Qual Not Detected (Not Detectd) Disposition Clinical Impression: Renal calculi Disposition: HOME SELF-CARE Condition: Stable Instructions (If sedation given, give patient instructions): Kidney Stones (ED) Additional Instructions: Follow-up with primary care provider and urologist tomorrow. May use Tylenol, Motrin as needed for pain. Return to ER if condition worsens. Is patient prescribed a controlled substance at d/c from ED?: No Referrals: Olvin Keenan MD [Primary Care Provider] - 1-2 days Rodolfo Park MD [STAFF PHYSICIAN] - 1-2 days
[2019-06-24 00:10] VITALS: PULSE 104; TEMP 98
== END 2019-06-24 00:09 | disposition home or self-care (01) ==
LOC: EC 20:54
DX: N20.0 Calculus of kidney (principal); R00.0 Tachycardia, unspecified; M79.7 Fibromyalgia; K21.9 Gastro-esophageal reflux disease without esophagitis; E78.5 Hyperlipidemia, unspecified; K58.9 Irritable bowel syndrome, unspecified; F41.9 Anxiety disorder, unspecified; F31.9 Bipolar disorder, unspecified; Z79.899 Other long term (current) drug therapy; Z90.49 Acquired absence of other specified parts of digestive tract; Z87.19 Personal history of other diseases of the digestive system
CPT/HCPCS: 36415; 80053; 83605; 83690; 85025; 81001; 81025; 74018; 76770; 99285; 96374; 96375; 96361 ×3; J2270; J2405

== ENCOUNTER → 2019-09-13 | Outpatient (CLI) | payer OTHER ==
--- NOTE | 2019-09-13 15:34 | MR ---
EXAMINATION TYPE: MR lumbar spine wo con DATE OF EXAM: 09/13/2019 COMPARISON: CT dated 04/11/2019 HISTORY: Back pain post Shunt placement, Radiates down both legs TECHNIQUE: Multiplanar, multisequence images of the lumbar spine were acquired. FINDINGS: The lumbar spine vertebral bodies maintain normal vertebral body heights and alignment. Ed y minimal disc desiccation at L5-S1. Conus medullaris is unremarkable terminating at L1-L2. L1-L2: Normal disc appearance without desiccation. No herniation, protrusion or disc bulging. No ca nal stenosis is present. Foramina are patent bilaterally. L2-L3: Normal disc appearance without desiccation. No herniation, protrusion or disc bulging. No ca nal stenosis is present. Foramina are patent bilaterally. L3-L4: Normal disc appearance without desiccation. No herniation, protrusion or disc bulging. No ca nal stenosis is present. Foramina are patent bilaterally. L4-L5: Normal disc appearance without desiccation. No herniation, protrusion or disc bulging. No ca nal stenosis is present. Foramina are patent bilaterally. L5-S1: Very small broad-based disc bulge without spinal canal stenosis nor neural foraminal narrowing . Minimal facet arthropathy. IMPRESSION: No focal disc herniation, spinal canal stenosis nor neural foraminal narrowing. Minimal d egenerative disc disease at L5-S1.
== END | disposition home or self-care (01) ==
LOC: RADMRIMAIN 14:03
PROVIDERS: ATTEND Nurse Practitioner Family
DX: M51.37 Other intervertebral disc degeneration, lumbosacral region (principal)
CPT/HCPCS: 72148

== ENCOUNTER 2019-09-21 15:55 | Emergency (ER) | payer OTHER ==
--- NOTE | 2019-09-21 19:01 | ED ---
General Adult HPI - General Chief complaint: Skin/Abscess/Foreign Body Stated complaint: lump in armpit Time Seen by Provider: 09/21/19 17:47 Source: patient, RN notes reviewed, old records reviewed Mode of arrival: ambulatory Limitations: no limitations - History of Present Illness Initial comments: 29 year old female patient presents to ED with cheif complaint of left axillary lump. Pt reports that she does have a history of lymphoma. Pt states that she noticed it in the shower this morning. States that it is somewhat painful and when she presses on it the pain radiates into the left breast, Denies any other complaints. Denies any chance of being . Systemic: Pt denies fatigue, fever/chills, rash. Pt denies weakness, night s weats, weight loss. Neuro: Pt denies headache, visual disturbances, syncope or pre-syncope. HEENT: Pt denies ocular discharge or irritation, otalgia, rhinorrhea, pharyngitis or notable lymphadenopathy. Cardiopulmonary: Pt denies chest pain, SOB, heart palpitations, dyspnea on exertion. Abdominal/GI: Pt denies abdominal pain, n/v/d. : Pt denies dysuria, burning w/ urination, frequency/urgency. Denies new onset urinary or bowel incontinence. MSK: Pt denies myalgia, loss of strength or function in extremities. Neuro: Pt denies new onset weakness, paresthesias. - Related Data Home Medications Medication Instructions Recorded Confirmed Pantoprazole [Protonix] 40 mg PO BID 01/20/18 01/02/19 Pravastatin Sodium [Pravachol] 20 mg PO HS 01/20/18 01/02/19 Gabapentin 600 mg PO TID 07/03/18 01/02/19 SUMAtriptan SUCCINATE [Imitrex] 50 mg PO BID PRN 07/03/18 01/02/19 Verapamil HCl [Verapamil ER] 180 mg PO HS 09/24/18 01/02/19 acetaZOLAMIDE [Diamox Sequels] 500 mg PO BID 09/24/18 01/02/19 ARIPiprazole [Abilify] 20 mg PO HS 11/24/18 01/02/19 Amitriptyline HCl [Elavil] 10 mg PO BID 11/24/18 01/02/19 Hydrochlorothiazide [Hydrodiuril] 12.5 mg PO DAILY 11/24/18 01/02/19 LORazepam [Ativan] 1 mg PO HS 11/24/18 01/02/19 Previous Rx's Medication Instructions Recorded Dicyclomine [Bentyl] 20 mg PO QID #20 tablet 07/15/18 Cephalexin [Keflex] 500 mg PO Q12HR 10 Days #20 cap 04/08/19 Tamsulosin [Flomax] 0.4 mg PO DAILY #10 cap 04/08/19 Cephalexin [Keflex] 500 mg PO Q6HR 10 Days #40 cap 04/09/19 Ondansetron Odt [Zofran Odt] 4 mg PO Q8HR PRN #10 tab 04/11/19 Sulfamethox-Tmp 800-160Mg [Bactrim 1 tab PO Q12HR 10 Days #20 tab 09/21/19 DS 800-160 mg] Allergies Allergy/AdvReac Type Severity Reaction Status Date / Time No Known Allergies Allergy Verified 09/21/19 16:29 Review of Systems ROS Statement: Those systems with pertinent positive or pertinent negative responses have been documented in the HPI. ROS Other: All systems not noted in ROS Statement are negative. Past Medical History Past Medical History: Fibromyalgia, GERD/Reflux, GI Bleed, Hyperlipidemia Additional Past Medical History / Comment(s): gallstones, kidney stones, IBS, migraines, tachycardia, Martine- Guevara tear History of Any Multi-Drug Resistant Organisms: None Reported Past Surgical History: Section, Cholecystectomy, Tubal Ligation Additional Past Surgical History / Comment(s): neck biopsy (lymph node ) d&c Past Anesthesia/Blood Transfusion Reactions: No Reported Reaction Past Psychological History: Anxiety, Bipolar, Depression, PTSD Smoking Status: Never smoker Past Alcohol Use History: None Reported Past Drug Use History: None Reported - Past Family History Mother Family Medical History: Diabetes Mellitus, Hyperlipidemia, Hypertension, Myocardial Infarction ([place]) Additional Family Medical History / Comment(s): [place] X 3 Father Family Medical History: Congestive Heart Failure (CHF), Hyperlipidemia, Hypertension, Myocardial Infarction ([place]) Additional Family Medical History / Comment(s): mi x 3 Son(s) Family Medical History: No Reported History General Exam - General Exam Comments Initial Comments: Constitutional: NAD, AOX3, Pt has pleasant affect. HEENT: NC/AT, trachea midline, neck supple, no lymphadenopathy. Posterior pharynx non erythematous, without exudates. External ears appear normal, without discharge. Mucous membranes moist. Eyes PERRLA, EOM intact. There is no scleral icterus. No pallor noted. Cardiopulmonary: RRR, no murmurs, rubs or gallops, no JVD noted. Lungs CTAB in anterior and posterior green. No peripheral edema. Abdominal exam: Abdomen soft and non-distended. Abdomen non-tender to palpation in all 4 quadrants. Bowel sounds active in LLQ. No hepatosplenomegaly. No ecchymosis Neuro: CN II-XII grossly intact. No nuchal rigidity. No raccon eyes, no hanna sign, no hemotympanum. No cervical spinal tenderness. MSK: No posterior calf tenderness bilaterally, homans sign negative bilaterally. Posterior tibialis and radial pulse +2 bilaterally. Sensation intact in upper and lower extremities. Full active ROM in upper and lower extremities, 5/5 stregnth. Derm: Small 2 x 2 centimeter palpable lump noted in left axilla, mobile. Clinical breast exam left breast chaperoned by YOUNG Hui did not display any lumps masses or skin changes/ Limitations: no limitations Course Vital Signs 09/21/19 16:26 Temperature 99.2 F Pulse Rate 110 H Respiratory 20 Rate Blood Pressure 141/92 O2 Sat by Pulse 98 Oximetry Procedures - Incision & Drainage Consent Obtained: verbal consent Indication: abscess Site: other (right axillae ) I&D Cleaning Method: Chloroprep Needle Aspiration Performed?: Yes I&D Drainage Obtained: Pus Culture Obtained?: No Patient Tolerated Procedure: well Medical Decision Making - Medical Decision Making 29 year old female patient presents to ED with cheif complaint of left axillary lump. Pt reports that she does have a history of lymphoma. Pt states that she noticed it in the shower this morning. States that it is somewhat painful and when she presses on it the pain radiates into the left breast, Denies any other complaints. Denies any chance of being . Patient afebrile. Physical exam did display small lump in left axillary region 2 x 2 centimeters. Patient was offered clinical breast exam which she did wish to have performed and was chaperoned didn't note any acute pathology. Ultrasound was obtained and ultrasound of the axilla and the breast was obtained. Breast there is a lobulated hypoechoic region correlate for intramammary lymph node. In the axilla there is a small 6 mm complex collection just deep to the skin surface course point the site of pain. Incision and drainage was performed which displayed small amount of purulent drainage. Patient discharged with Bactrim. We'll outpatient follow-up with her primary care provider as well as general surgery for further recommendations involving the breast. Recommend a diagnostic mammogram. Cse discussed with Dr. Rivera. Disposition Clinical Impression: Abscess, Lymph nodes enlarged Disposition: HOME SELF-CARE Condition: Stable Instructions (If sedation given, give patient instructions): Abscess (ED) Additional Instructions: Taken antibiotics as directed. Warm compresses. Keep area loosely covered. Follow up with primary care provider and general surgeon tomorrow for evaluation of breast. Recommendation of a diagnostic mammogram. Return to ER if condition worsens. Prescriptions: Sulfamethox-Tmp 800-160Mg [Bactrim DS 800-160 mg] 1 tab PO Q12HR 10 Days #20 tab Is patient prescribed a controlled substance at d/c from ED?: No Referrals: Olvin Keenan MD [Primary Care Provider] - 1-2 days Lc Solis MD [STAFF PHYSICIAN] - 1-2 days
--- NOTE | 2019-09-21 19:24 | USB ---
EXAMINATION TYPE: US breast complete LT, US axilla LT DATE OF EXAM: 09/21/2019 COMPARISON: NONE CLINICAL HISTORY: 29-year-old female lump, history of cancer. Patient feels painful lump left axilla x 1 day. Pain radiates to outer breast. Hx of lymphoma. Technique: Whole left breast ultrasound was performed including scanning of the axilla and subareolar region. FINDINGS: Limited exam through [facility]. Patient needs follow up with [facility]. LEFT BREAST: There is a lobulated hypoechoic region measuring 1.3 x 0.9 x 0.6 cm at the 2:00 position zone B/C. No other solid or cystic lesion is seen. LEFT AXILLA: At the area of pain there there is a small complex collection with minimal vascularity measurin.6 x 0.5 x 0.3 cm located just deep to the skin surface. Additionally, there is a prominent but nonenlarged 0.9 x 1.0 x 0.8 cm axillary lymph node noted. IMPRESSION: BI-RADS 0 - incomplete assessment 1. Left breast: Probable mildly enlarged 1.3 x 0.9 cm intramammary lymph node at the 2:00 position. 2. Left axilla: Small 6 mm complex collection just deep to the skin surface corresponding to the site of pain, possible tiny hematoma or focus of infection. RECOMMENDATION: 1. Correlate for possible tiny focus of phlegmon/infection in the left axilla corresponding to the si te of pain and some reactive lymph nodes in the left axilla and upper outer quadrant of the left [address]. 2. Diagnostic mammogram of the left breast is recommended.
[2019-09-21] MEDS ORDERED: SULFAMETH-TMP DS STARTER PACK 2 TAB BTL PO STA (20:37)
[2019-09-21] MEDS ORDERED: SULFAMETHOX-TMP 800-160MG 1 EACH TAB PO STA (20:37)
[2019-09-21 20:46] VITALS: BP 148/80; PULSE 94; RESP 18
[2019-09-21 20:54] VITALS: TEMP 97.8
== END 2019-09-21 20:54 | disposition home or self-care (01) ==
LOC: EC 15:55
DX: L02.412 Cutaneous abscess of left axilla (principal); R59.9 Enlarged lymph nodes, unspecified; K21.9 Gastro-esophageal reflux disease without esophagitis; E78.5 Hyperlipidemia, unspecified; K58.9 Irritable bowel syndrome, unspecified; M79.7 Fibromyalgia; G43.909 Migraine, unspecified, not intractable, without status migrainosus; F41.9 Anxiety disorder, unspecified; F31.9 Bipolar disorder, unspecified; F43.10 Post-traumatic stress disorder, unspecified; Z79.899 Other long term (current) drug therapy; Z85.72 Personal history of non-Hodgkin lymphomas; Z87.19 Personal history of other diseases of the digestive system
CPT/HCPCS: 10160; 99284

== ENCOUNTER → 2019-11-16 | Outpatient (CLI) | payer OTHER ==
--- NOTE | 2019-11-17 09:14 | MM ---
Reason for exam: clinical finding. History: Family history of breast cancer in paternal aunt and breast cancer in paternal grandmother. Physical Findings: Nurse did not find any significant physical abnormalities on exam. MG Diagnostic Mammo w CAD MAE Bilateral CC and MLO view(s) were taken. There are scattered fibroglandular densities. Right 2 o'clock focal asymmetry disperses on additional views. Large 1.4 x 0.9cm intrammary node left upper outer quadrant. These results were verbally communicated with the patient and result sheet given to the patient on 11/16/19. ASSESSMENT: Incomplete: need additional imaging evaluation, BI-RAD 0 RECOMMENDATION: Ultrasound of the left breast. (upper outer quadrant)
--- NOTE | 2019-11-17 09:16 | USB ---
Reason for exam: additional evaluation requested from abnormal screening. History: Family history of breast cancer in paternal aunt and breast cancer in paternal grandmother. US Breast Limited LT Left limited breast ultrasound including focal area of concern, retroareolar and axilla demonstrates a 1.1 x 0.7 x 0.7cm lobular, solid lymph node at 2 o'clock lobulated and measured 1.3 x 0.9 x 0.7cm on 09/21/19 stable to slightly smaller now and two oval, solid lymph nodes at the axillary tail measuring 0.8cm and 0.6cm. These results were verbally communicated with the patient and result sheet given to the patient on 11/16/19. ASSESSMENT: Probably benign, BI-RAD 3 RECOMMENDATION: Ultrasound of the left breast in 6 months.
== END | disposition home or self-care (01) ==
LOC: RADMAMWWP 13:23
PROVIDERS: ATTEND Family Medicine
DX: R92.8 Other abnormal and inconclusive findings on diagnostic imaging of breast (principal); R59.0 Localized enlarged lymph nodes; Z85.79 Personal history of other malignant neoplasms of lymphoid, hematopoietic and related tissues; Z80.3 Family history of malignant neoplasm of breast; N64.52 Nipple discharge
CPT/HCPCS: 77066

== ENCOUNTER → 2019-11-19 | Outpatient (CLI) | payer OTHER ==
--- NOTE | 2019-11-22 12:48 | CT ---
EXAMINATION TYPE: CT abdomen pelvis wo con DATE OF EXAM: 11/19/2019 COMPARISON: 04/11/2019 HISTORY: LP shunt failure CT DLP: 2627.4 mGycm Automated exposure control for dose reduction was used. TECHNIQUE: Helical acquisition of images was performed from the lung bases through the pelvis. FINDINGS: LUNG BASES: No significant abnormality is appreciated. LIVER/GB: Postcholecystectomy changes are seen. PANCREAS: No significant abnormality is seen. SPLEEN: No significant abnormality is seen. ADRENALS: No significant abnormality is seen. KIDNEYS: There is mild to moderate right hydronephrosis secondary to an obstructing proximal right ur eteral calculus measuring a diameter of 5 mm. ADENOPATHY: None visualized. OSSEOUS STRUCTURES: No significant abnormality is seen. BOWEL: No significant abnormality is seen. OTHER: Within the anterior subcutaneous tissues on the left there is a large fluid collection measuri ng 12 cm. There is a catheter coiled within the fluid collection. Catheter extends from the fluid col lection into the thecal sac. This should be correlated clinically. Postsurgical changes involving the pelvis. Aorta of normal caliber. IMPRESSION: 1. Moderate right hydronephrosis due to obstructing proximal right ureteral calculus measuring 5 mm i n diameter. 2. Large 12 cm fluid collection in the anterior subcutaneous tissues of the abdomen with a catheter c oiled within. This should be correlated clinically for positioning of the catheter.
== END | disposition home or self-care (01) ==
LOC: RADCTMAIN 16:52
PROVIDERS: ATTEND Family Medicine
DX: N13.2 Hydronephrosis with renal and ureteral calculous obstruction (principal); R18.8 Other ascites
CPT/HCPCS: 74176

== ENCOUNTER 2019-12-03 21:05 | Emergency (ER) | payer OTHER ==
[2019-12-03 21:16] VITALS: TEMP 99
--- NOTE | 2019-12-03 21:27 | ED ---
General Adult HPI - General Chief complaint: Extremity Injury, Lower Stated complaint: L Foot Injury Time Seen by Provider: 12/03/19 21:18 Source: patient, RN notes reviewed, old records reviewed Mode of arrival: wheelchair Limitations: no limitations - History of Present Illness Initial comments: 29-year-old female patient presents to ED with chief complaint left foot pain. Patient reports that when she stood up this morning she twisted her left foot now she is having pain towards her heel. She denies falling to the ground. Denies any other acute complaints. Systemic: Pt denies fatigue, fever/chills, rash. Pt denies weakness, night sweats, weight loss. Neuro: Pt denies headache, visual disturbances, syncope or pre-syncope. HEENT: Pt denies ocular discharge or irritation, otalgia, rhinorrhea, pharyngitis or notable lymphadenopathy. Cardiopulmonary: Pt denies chest pain, SOB, heart palpitations, dyspnea on exertion. Abdominal/GI: Pt denies abdominal pain, n/v/d. : Pt denies dysuria, burning w/ urination, frequency/urgency. Denies new onset urinary or bowel incontinence. MSK: Pt denies loss of strength. Neuro: Pt denies new onset weakness, paresthesias. - Related Data Home Medications Medication Instructions Recorded Confirmed Pantoprazole [Protonix] 40 mg PO BID 01/20/18 01/02/19 Pravastatin Sodium [Pravachol] 20 mg PO HS 01/20/18 01/02/19 Gabapentin 600 mg PO TID 07/03/18 01/02/19 SUMAtriptan succinate [Imitrex] 50 mg PO BID PRN 07/03/18 01/02/19 Verapamil HCl [Verapamil ER] 180 mg PO HS 09/24/18 01/02/19 acetaZOLAMIDE [Diamox Sequels] 500 mg PO BID 09/24/18 01/02/19 ARIPiprazole [Abilify] 20 mg PO HS 11/24/18 01/02/19 Amitriptyline HCl [Elavil] 10 mg PO BID 11/24/18 01/02/19 LORazepam [Ativan] 1 mg PO HS 11/24/18 01/02/19 hydroCHLOROthiazide [Hydrodiuril] 12.5 mg PO DAILY 11/24/18 01/02/19 Previous Rx's Medication Instructions Recorded Dicyclomine [Bentyl] 20 mg PO QID #20 tablet 07/15/18 Cephalexin [Keflex] 500 mg PO Q12HR 10 Days #20 cap 04/08/19 Tamsulosin [Flomax] 0.4 mg PO DAILY #10 cap 04/08/19 Cephalexin [Keflex] 500 mg PO Q6HR 10 Days #40 cap 04/09/19 Ondansetron Odt [Zofran Odt] 4 mg PO Q8HR PRN #10 tab 04/11/19 Sulfamethox-Tmp 800-160Mg [Bactrim 1 tab PO Q12HR 10 Days #20 tab 09/21/19 DS 800-160 mg] Allergies Allergy/AdvReac Type Severity Reaction Status Date / Time No Known Allergies Allergy Verified 12/03/19 21:16 Review of Systems ROS Statement: Those systems with pertinent positive or pertinent negative responses have been documented in the HPI. ROS Other: All systems not noted in ROS Statement are negative. Past Medical History Past Medical History: Fibromyalgia, GERD/Reflux, GI Bleed, Hyperlipidemia Additional Past Medical History / Comment(s): gallstones, kidney stones, IBS, migraines, tachycardia, Martine- Guevara tear History of Any Multi-Drug Resistant Organisms: None Reported Past Surgical History: Section, Cholecystectomy, Tubal Ligation Additional Past Surgical History / Comment(s): neck biopsy (lymph node ) d&c Past Anesthesia/Blood Transfusion Reactions: No Reported Reaction Past Psychological History: Anxiety, Bipolar, Depression, PTSD Past Alcohol Use History: None Reported Past Drug Use History: None Reported - Past Family History Mother Family Medical History: Diabetes Mellitus, Hyperlipidemia, Hypertension, Myocardial Infarction ([place]) Additional Family Medical History / Comment(s): [place] X 3 Father Family Medical History: Congestive Heart Failure (CHF), Hyperlipidemia, Hypertension, Myocardial Infarction ([place]) Additional Family Medical History / Comment(s): mi x 3 Son(s) Family Medical History: No Reported History General Exam - General Exam Comments Initial Comments: Constitutional: NAD, AOX3, Pt has pleasant affect. HEENT: NC/AT, trachea midline, neck supple. External ears appear normal, without discharge. Mucous membranes moist. EOM intact. There is no scleral icterus. No pallor noted. Cardiopulmonary: RRR, no murmurs, rubs or gallops, no JVD noted. Lungs CTAB in anterior and posterior green. No peripheral edema. Neuro: CN II-XII grossly intact. No nuchal rigidity. No raccon eyes, no hanna sign, no hemotympanum. No cervical spinal tenderness. MSK: Left posterior heel region is mildly tender to palpation. No other areas of tenderness. No midfoot tenderness. No skin changes. Neurovascularly intact. Full active ROM in upper and lower extremities, 5/5 stregnth. Limitations: no limitations Course Vital Signs 12/03/19 12/03/19 21:13 21:56 Temperature 99.0 F Pulse Rate 120 H 108 H Respiratory 18 17 Rate Blood Pressure 131/78 132/88 O2 Sat by Pulse 99 98 Oximetry Medical Decision Making - Medical Decision Making 29-year-old female patient presents to ED for evaluation of left foot pain after stepping on it weird when standing up. Reports the pain is at her heel region. There is some tenderness there are no other areas of tenderness. Plain film was negative. Patient has pain with weightbearing. Patient will be placed in postoperative walking boot. Will follow up with primary care breath and orthopedic consult and will return to ER for any worsening symptoms. Case discussed with Dr. Ordonez. Disposition Clinical Impression: Foot sprain Disposition: HOME SELF-CARE Condition: Stable Instructions (If sedation given, give patient instructions): Foot Sprain (ED) Additional Instructions: Follow-up with primary care provider and orthopedic consult tomorrow. Use crutches do not bear weight on left lower extremity. Return to ER if any worsening symptoms. Is patient prescribed a controlled substance at d/c from ED?: No Referrals: Olvin Keenan MD [Primary Care Provider] - 1-2 days Armand Ndiaye DO [Doctor of Osteopathic Medicine] - 1-2 days
--- NOTE | 2019-12-03 21:42 | XR ---
EXAMINATION TYPE: XR foot complete LT DATE OF EXAM: 12/03/2019 COMPARISON: NONE HISTORY: Left foot pain TECHNIQUE: 3 views FINDINGS: Metatarsals appear intact. I see no fracture nor dislocation. Joint spaces are normal. Ther e are no erosions. IMPRESSION: Negative left foot exam.
[2019-12-03 21:56] VITALS: BP 132/88; PULSE 108; RESP 17
== END 2019-12-03 22:15 | disposition home or self-care (01) ==
LOC: EC 21:05
DX: S93.602A Unspecified sprain of left foot, initial encounter (principal); K21.9 Gastro-esophageal reflux disease without esophagitis; K58.9 Irritable bowel syndrome, unspecified; E78.5 Hyperlipidemia, unspecified; G43.909 Migraine, unspecified, not intractable, without status migrainosus; F41.9 Anxiety disorder, unspecified; F31.9 Bipolar disorder, unspecified; M79.7 Fibromyalgia; R00.0 Tachycardia, unspecified; F43.10 Post-traumatic stress disorder, unspecified; Z79.899 Other long term (current) drug therapy; X50.1XXA Overexertion from prolonged static or awkward postures, initial encounter; Z87.442 Personal history of urinary calculi
CPT/HCPCS: 99284

== ENCOUNTER → 2019-12-06 | Outpatient (CLI) | payer OTHER ==
[2019-12-07 01:33] LABS: African American GFR (CKD) 99.4 (60.0-200.0); Albumin 4.1 g/dL (3.80-4.90); Albumin/Globulin Ratio 1.95 (1.60-3.17); Anion Gap 8.7 mmol/L (4.00-12.00); BUN/Creat Ratio 14.44 Ratio (12.00-20.00); Carbon Dioxide 24.3 mmol/L (21.6-31.8); Globulin 2.1 g/dL (1.6-3.3); Non-African American GFR(CKD) 85.8 (60.0-200.0); Potassium 4.4 mmol/L (3.5-5.5); Total Bilirubin 0.3 mg/dL (0.2-1.2); Total Protein 6.2 g/dL (6.2-8.2)
== END | disposition home or self-care (01) ==
LOC: LABWHC1 11:44
PROVIDERS: ATTEND Psychiatry & Neurology Pain Medicine
DX: Z51.81 Encounter for therapeutic drug level monitoring (principal); Z79.899 Other long term (current) drug therapy
CPT/HCPCS: 36415; 80053

== ENCOUNTER → 2019-12-15 | Outpatient (CLI) | payer OTHER ==
[2019-12-15 15:45] VITALS: BP 149/87; PULSE 118; RESP 20; TEMP 98.3; BMI 54.3
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
== END | disposition home or self-care (01) ==
LOC: BARWHC3 14:40
PROVIDERS: ATTEND Surgery Plastic and Reconstructive Surgery
DX: K21.9 Gastro-esophageal reflux disease without esophagitis (principal); K92.0 Hematemesis; D49.6 Neoplasm of unspecified behavior of brain; Z90.49 Acquired absence of other specified parts of digestive tract; Z98.51 Tubal ligation status; Z98.890 Other specified postprocedural states; Z96.89 Presence of other specified functional implants
CPT/HCPCS: 99211

== ENCOUNTER → 2019-12-23 | Outpatient (CLI) | payer OTHER ==
--- NOTE | 2019-12-23 13:07 | FL ---
EXAMINATION TYPE: FL barium swallow DATE OF EXAM: 12/23/2019 CLINICAL INDICATION: 29-year-old female R13.10, dysphagia, workup for bariatric surgery. COMPARISON: None Total Fluoroscopy Time: 1 minute 59 seconds. Total images: 25 FINDINGS: The swallowing mechanism is normal and hypopharyngeal anatomy is preserved. The cervical and thoracic portions have a normal course and caliber and normal motility. The mucosa is normal and no persistent filling defect is encountered. No hiatal hernia is present. No gastroesophageal reflux is identified. Low lung volumes are noted. IMPRESSION: Low lung volumes likely relating to patient's size. Otherwise, unremarkable esophagram.
== END | disposition home or self-care (01) ==
LOC: RADUSWWP 11:18
PROVIDERS: ATTEND Surgery Plastic and Reconstructive Surgery
DX: R13.10 Dysphagia, unspecified (principal)
CPT/HCPCS: 74220

== ENCOUNTER 2020-01-09 11:13 | Emergency (ER) | payer OTHER ==
[2020-01-09 11:23] VITALS: RESP 16; TEMP 99.1
[2020-01-09] MEDS ORDERED: SODIUM CHLORIDE 0.9% 500 ML 500 ML IV STA (11:37)
[2020-01-09] MEDS ORDERED: LORazepam 2 MG/ML INJ IV STA (11:39)
[2020-01-09] MEDS ORDERED: ACETAMINOPHEN TAB 500 MG TAB PO STA (11:39)
--- NOTE | 2020-01-09 11:42 | ED ---
Chest Pain HPI - General Chief Complaint: Chest Pain Stated Complaint: chest pain Time Seen by Provider: 01/09/20 11:26 Source: patient Mode of arrival: ambulatory - History of Present Illness Initial Comments: Patient is a 29-year-old female, with history of anxiety, bipolar, presenting to the emergency department complaints of chest pain started yesterday. Patient states she felt some palpitations yesterday while she was at the store and thought it was just her anxiety but then after the palpitations stopped she started having left-sided chest pain with some radiation into her left arm. Patient states it continued throughout the evening and today so she decided to come in to be seen. Patient states this feels different than her normal anxiety. She admits to being slightly short of breath, no recent fever, chills, cough. She did recently start taking metformin 1 week ago, 500 mg twice a day. She states she is having a little bit of nausea and some diarrhea with it but nothing that significant. She denies any other new medications. She denies being at this time secondary to tubal ligation. She is no further complaints at this time. Upon arrival to the ER, her vitals are stable. - Related Data Home Medications Medication Instructions Recorded Confirmed Pravastatin Sodium [Pravachol] 20 mg PO HS 01/20/18 01/09/20 Amitriptyline HCl [Elavil] 25 mg PO DAILY 11/24/18 01/09/20 LORazepam [Ativan] 1 mg PO HS PRN 11/24/18 01/09/20 Lansoprazole [Prevacid] 30 mg PO BID 12/15/19 01/09/20 buPROPion HCL [Wellbutrin XL] 300 mg PO DAILY 12/15/19 01/09/20 traZODone HCL 50 mg PO HS 12/15/19 01/09/20 ARIPiprazole 20 mg PO HS 01/09/20 01/09/20 ARIPiprazole [Abilify] 5 mg PO DAILY 01/09/20 01/09/20 Amitriptyline HCl [Elavil] 50 mg PO HS 01/09/20 01/09/20 Norethindrone-E.estradiol-Iron 1 tab PO DAILY 01/09/20 01/09/20 [Microgestin Fe 1-20 Tablet] Topiramate 50 mg PO DAILY 01/09/20 01/09/20 acetaZOLAMIDE [Diamox] 250 mg PO BID 01/09/20 01/09/20 busPIRone HCL 15 mg PO TID 01/09/20 01/09/20 metFORMIN HCL 500 mg PO BID 01/09/20 01/09/20 Allergies Allergy/AdvReac Type Severity Reaction Status Date / Time No Known Allergies Allergy Verified 01/09/20 12:41 Review of Systems ROS Statement: Those systems with pertinent positive or pertinent negative responses have been documented in the HPI. ROS Other: All systems not noted in ROS Statement are negative. EKG Findings - EKG Comments: EKG Findings:: Normal sinus rhythm, normal ECG, no signs of acute ischemia, ventricular rate 95, DE interval 1:30, QTC 356. Past Medical History Past Medical History: Fibromyalgia, GERD/Reflux, GI Bleed, Hyperlipidemia Additional Past Medical History / Comment(s): gallstones, kidney stones, IBS, migraines, tachycardia, Martine- Guevara tear History of Any Multi-Drug Resistant Organisms: None Reported Past Surgical History: Section, Cholecystectomy, Tubal Ligation Additional Past Surgical History / Comment(s): neck biopsy (lymph node ) d&c; LP shunt May 13 2019 Past Anesthesia/Blood Transfusion Reactions: No Reported Reaction Past Psychological History: Anxiety, Bipolar, Depression, PTSD Smoking Status: Never smoker Past Alcohol Use History: None Reported Past Drug Use History: Marijuana - Past Family History Mother Family Medical History: Diabetes Mellitus, Hyperlipidemia, Hypertension, Myocardial Infarction ([place]) Additional Family Medical History / Comment(s): [place] X 3 Father Family Medical History: Congestive Heart Failure (CHF), Hyperlipidemia, Hypertension, Myocardial Infarction ([place]) Additional Family Medical History / Comment(s): mi x 3 Son(s) Family Medical History: No Reported History General Exam - General Exam Comments Initial Comments: GENERAL: Patient is well-developed and well-nourished. Patient is nontoxic and in no acute distress, obese. HEAD: Atraumatic, normocephalic. EYES: Pupils equal round and reactive to light, extraocular movements intact, sclera anicteric, conjunctiva are normal. Eyelids were unremarkable. ENT: TMs normal, nares patent, oropharynx clear without exudates. Moist mucous membranes. NECK: Normal range of motion, supple without lymphadenopathy or JVD. LUNGS: Unlabored respirations. Breath sounds clear to auscultation bilaterally and equal. No wheezes rales or rhonchi. HEART: Regular rate and rhythm without murmurs, rubs or gallops. ABDOMEN: Soft, nontender, normoactive bowel sounds. No guarding, no rebound. No masses appreciated. : Deferred MUSCULOSKELETAL: Normal extremities with adequate strength and normal range of motion, no pitting or edema. No clubbing or cyanosis. NEUROLOGICAL: Patient is alert and oriented x 3. Motor and sensory are also intact. Cranial nerves II through XII grossly intact. Symmetrical smile. Normal speech, normal gait. PSYCH: Normal mood, normal affect. SKIN: Warm, Dry, normal turgor, no rashes or lesions noted. Course Vital Signs 01/09/20 11:19 Temperature 99.1 F Pulse Rate 97 Respiratory 16 Rate Blood Pressure 136/77 O2 Sat by Pulse 96 Oximetry Chest Pain [facility] Patient is a 29-year-old female, with history of anxiety, presenting for chest pain 2 days. Her vital signs are stable, her EKG shows no acute process. I did give patient some fluids, Ativan, Tylenol for discomfort. She cannot have NSAIDs secondary to previous GI bleeds. Lab work shows no acute abnormalities, troponin was negative, d-dimer was normal. Rest of her lab work is stable as well. Chest x-ray reveals no acute process. Patient states she does feel some improvement in her symptoms. Discussed with patient that I believe her symptoms are mostly related to anxiety or muscle skeletal in nature secondary to the pain increases when she moves her upper body around. I recommended continuing with Tylenol at home, heat packs to the area and rest. Patient is in agreement with this plan of care. She'll follow up with her PCP in 1-3 days. Return parameters were discussed with the patient she verbalized understanding. She is stable for discharge. Case discussed with Dr. Verma. Disposition Clinical Impression: Atypical chest pain, Anxiety Disposition: HOME SELF-CARE Condition: Stable Instructions (If sedation given, give patient instructions): Anxiety (ED) Additional Instructions: Please return to the Emergency Department if symptoms worsen or any other concerns. Recommend continuing with Tylenol as needed for discomfort as well as already prescribed anxiety medication. Follow-up with PCP in 1-3 days as discussed. Is patient prescribed a controlled substance at d/c from ED?: No Referrals: Olvin Keenan MD [Primary Care Provider] - 1-2 days
[2020-01-09 12:17] LABS: Basophils % (A) 1 %; Eosinophils # (A) 0.2 k/uL (0-0.7); Eosinophils % (A) 3 %; HCT 35.1 % (34.0-46.0); HGB 10.8 gm/dL (11.4-16.0); Hypochromasia Marked; Lymphocytes # (A) 1.9 k/uL (1.0-4.8); Lymphocytes % (A) 26 %; MCH 22.9 pg (25.0-35.0); MCHC 30.6 g/dL (31.0-37.0); MCV 74.7 fL (80.0-100.0); Mean Platelet Volume 7.1; Microcytosis Slight; Monocytes # (A) 0.2 k/uL (0-1.0); Monocytes % (A) 3 %; Neutrophils # (A) 4.8 k/uL (1.3-7.7); Neutrophils % (A) 66 %; Platelet Count 293 k/uL (150-450); RBC 4.71 m/uL (3.80-5.40); RDW 15.4 % (11.5-15.5); WBC 7.2 k/uL (3.8-10.6)
[2020-01-09 12:27] LABS: ALT 72 U/L (4-34); AST 46 U/L (14-36); African American GFR (CKD) >90 (>60 ml/min/1.73 sqM); Albumin 3.3 g/dL (3.5-5.0); Alkaline Phosphatase 81 U/L (38-126); Anion Gap 8 mmol/L; Blood Urea Nitrogen 13 mg/dL (7-17); Calcium 8.9 mg/dL (8.4-10.2); Carbon Dioxide 25 mmol/L (22-30); Chloride 105 mmol/L (98-107); Glucose 149 mg/dL (74-99); Non-African American GFR(CKD) >90 (>60 ml/min/1.73 sqM); Potassium 4.1 mmol/L (3.5-5.1); Sodium 138 mmol/L (137-145); Total Bilirubin 0.5 mg/dL (0.2-1.3); Total Protein 5.9 g/dL (6.3-8.2)
--- NOTE | 2020-01-09 12:44 | XR ---
EXAMINATION TYPE: XR chest 2V DATE OF EXAM: 01/09/2020 COMPARISON: 05/04/2019 TECHNIQUE: PA and lateral views submitted. HISTORY: Chest pain FINDINGS: The lungs are clear and there is no pneumothorax, pleural effusion, or focal pneumonia. Heart size normal. No overt failure. IMPRESSION: 1. No acute process.
[2020-01-09] MEDS ORDERED: MORPHINE SULFATE 2 MG/ML SYRINGE IVP ONE (12:55)
[2020-01-09 13:11] VITALS: BP 118/63; PULSE 87
== END 2020-01-09 13:24 | disposition home or self-care (01) ==
LOC: EC 11:13
DX: F41.9 Anxiety disorder, unspecified (principal); R07.89 Other chest pain; R00.2 Palpitations; R06.02 Shortness of breath; R11.0 Nausea; R19.7 Diarrhea, unspecified; E78.5 Hyperlipidemia, unspecified; K21.9 Gastro-esophageal reflux disease without esophagitis; M79.7 Fibromyalgia; K58.9 Irritable bowel syndrome, unspecified; F31.9 Bipolar disorder, unspecified; F43.10 Post-traumatic stress disorder, unspecified; Z79.899 Other long term (current) drug therapy; Z79.3 Long term (current) use of hormonal contraceptives; Z90.49 Acquired absence of other specified parts of digestive tract
CPT/HCPCS: 36415; 93005; 85379; 80053; 84484; 85025; 71046; 99285; 96374; 96375; J2060; J2270

== ENCOUNTER 2020-01-12 22:47 | Emergency (ER) | payer OTHER ==
[2020-01-12] MEDS ORDERED: SODIUM CHLORIDE 0.9% 1,000 ML IV STA (23:10)
[2020-01-12] MEDS ORDERED: MORPHINE SULFATE 4 MG/ML SYRINGE IV STA (23:10)
--- NOTE | 2020-01-12 23:14 | ED ---
Abdominal Pain HPI - General Chief Complaint: Abdominal Pain Stated Complaint: Pelvic Pain Time Seen by Provider: 01/12/20 22:58 Source: patient, RN notes reviewed, old records reviewed Mode of arrival: ambulatory Limitations: no limitations - History of Present Illness Initial Comments: This is a 29-year-old female DF for evaluation with no real significant medical history coming in for severe right lower quadrant right-sided pain. Patient has had history of multiple C-sections for , no other significant medical history no other significant surgeries no fevers no diarrhea no nausea or vomiting. MD Complaint: abdominal pain, other (Right lower abdominal pain) -: hour(s) Location: diffuse, RLQ Radiation: suprapubic Migration to: suprapubic Severity: moderate Severity scale (1-10): 7 Quality: cramping, stabbing Consistency: constant Improves With: nothing, bowel movement Associated Symptoms: nausea - Related Data Home Medications Medication Instructions Recorded Confirmed Pravastatin Sodium [Pravachol] 20 mg PO HS 01/20/18 01/09/20 Amitriptyline HCl [Elavil] 25 mg PO DAILY 11/24/18 01/09/20 LORazepam [Ativan] 1 mg PO HS PRN 11/24/18 01/09/20 Lansoprazole [Prevacid] 30 mg PO BID 12/15/19 01/09/20 buPROPion HCL [Wellbutrin XL] 300 mg PO DAILY 12/15/19 01/09/20 traZODone HCL 50 mg PO HS 12/15/19 01/09/20 ARIPiprazole 20 mg PO HS 01/09/20 01/09/20 ARIPiprazole [Abilify] 5 mg PO DAILY 01/09/20 01/09/20 Amitriptyline HCl [Elavil] 50 mg PO HS 01/09/20 01/09/20 Norethindrone-E.estradiol-Iron 1 tab PO DAILY 01/09/20 01/09/20 [Microgestin Fe 1-20 Tablet] Topiramate 50 mg PO DAILY 01/09/20 01/09/20 acetaZOLAMIDE [Diamox] 250 mg PO BID 01/09/20 01/09/20 busPIRone HCL 15 mg PO TID 01/09/20 01/09/20 metFORMIN HCL 500 mg PO BID 01/09/20 01/09/20 Allergies Allergy/AdvReac Type Severity Reaction Status Date / Time No Known Allergies Allergy Verified 01/12/20 22:52 Review of Systems ROS Statement: Those systems with pertinent positive or pertinent negative responses have been documented in the HPI. ROS Other: All systems not noted in ROS Statement are negative. Past Medical History Past Medical History: Fibromyalgia, GERD/Reflux, GI Bleed, Hyperlipidemia Additional Past Medical History / Comment(s): gallstones, kidney stones, IBS, migraines, tachycardia, Martine- Guevara tear History of Any Multi-Drug Resistant Organisms: None Reported Past Surgical History: Section, Cholecystectomy, Tubal Ligation Additional Past Surgical History / Comment(s): neck biopsy (lymph node ) d&c; LP shunt May 13 2019 Past Anesthesia/Blood Transfusion Reactions: No Reported Reaction Past Psychological History: Anxiety, Bipolar, Depression, PTSD Smoking Status: Never smoker Past Alcohol Use History: None Reported Past Drug Use History: Marijuana - Past Family History Mother Family Medical History: Diabetes Mellitus, Hyperlipidemia, Hypertension, Myocardial Infarction ([place]) Additional Family Medical History / Comment(s): [place] X 3 Father Family Medical History: Congestive Heart Failure (CHF), Hyperlipidemia, H ypertension, Myocardial Infarction ([place]) Additional Family Medical History / Comment(s): mi x 3 Son(s) Family Medical History: No Reported History General Exam Limitations: no limitations General appearance: alert, in no apparent distress, anxious, obese Head exam: Present: atraumatic, normocephalic, normal inspection Eye exam: Present: normal appearance, PERRL, EOMI. Absent: scleral icterus, conjunctival injection, periorbital swelling ENT exam: Present: normal exam, mucous membranes moist Neck exam: Present: normal inspection. Absent: tenderness, meningismus, lymphadenopathy Respiratory exam: Present: normal lung sounds bilaterally. Absent: respiratory distress, wheezes, rales, rhonchi, stridor Cardiovascular Exam: Present: normal rhythm, tachycardia, normal heart sounds. Absent: systolic murmur, diastolic murmur, rubs, gallop, clicks GI/Abdominal exam: Present: soft, distended, tenderness, normal bowel sounds. Absent: guarding, rebound, rigid Extremities exam: Present: normal inspection, full ROM, normal capillary refill. Absent: tenderness, pedal edema, joint swelling, calf tenderness Back exam: Present: normal inspection Neurological exam: Present: alert, oriented X3, CN II-XII intact Psychiatric exam: Present: normal affect, normal mood Skin exam: Present: warm, dry, intact, normal color. Absent: rash Course Vital Signs 01/12/20 01/13/20 22:52 00:54 Temperature 98.7 F Pulse Rate 111 H 101 H Respiratory 18 20 Rate Blood Pressure 136/92 134/70 O2 Sat by Pulse 99 99 Oximetry - Reevaluation(s) Reevaluation #1: 01/13/20 00:02 Medical records reviewed Reevaluation #2: 01/13/20 01:49 Patient has multiple controlled pain currently. Reevaluation #3: 01/13/20 01:50 patient informed of findings here in the ER, questions answered Medical Decision Making - Medical Decision Making 29-year-old female DF for evaluation, right-sided flank pain belly pain. Patient has normal computed tomography scan labwork as well as ultrasound - Lab Data Result diagrams: 01/12/20 23:23 01/12/20 23:23 Lab Results 01/12/20 01/12/20 01/12/20 Range/Units 23:23 23:23 23:23 WBC 9.8 (3.8-10.6) k/uL RBC 4.60 (3.80-5.40) m/uL Hgb 11.1 L (11.4-16.0) gm/dL Hct 34.7 (34.0-46.0) % MCV 75.5 L (80.0-100.0) fL MCH 24.1 L (25.0-35.0) pg MCHC 31.9 (31.0-37.0) g/dL RDW 15.9 H (11.5-15.5) % Plt Count 307 (150-450) k/uL Neutrophils % 61 % Lymphocytes % 31 % Monocytes % 4 % Eosinophils % 2 % Basophils % 0 % Neutrophils # 6.0 (1.3-7.7) k/uL Lymphocytes # 3.0 (1.0-4.8) k/uL Monocytes # 0.4 (0-1.0) k/uL Eosinophils # 0.2 (0-0.7) k/uL Basophils # 0.0 (0-0.2) k/uL Hypochromasia Moderate Microcytosis Slight Sodium (137-145) mmol/L Potassium (3.5-5.1) mmol/L Chloride (98-107) mmol/L Carbon Dioxide (22-30) mmol/L Anion Gap mmol/L BUN (7-17) mg/dL Creatinine (0.52-1.04) mg/dL Est GFR (CKD-EPI)AfAm (>60 ml/min/1.73 sqM) Est GFR (CKD-EPI)NonAf (>60 ml/min/1.73 sqM) Glucose (74-99) mg/dL Plasma Lactic Acid Darnell (0.7-2.0) mmol/L Calcium (8.4-10.2) mg/dL Total Bilirubin (0.2-1.3) mg/dL AST (14-36) U/L ALT (4-34) U/L Alkaline Phosphatase (38-126) U/L Total Protein (6.3-8.2) g/dL Albumin (3.5-5.0) g/dL Amylase (30-110) U/L Lipase (23-300) U/L Urine Color Yellow Urine Appearance Clear (Clear) Urine pH 6.5 (5.0-8.0) Ur Specific [place] 1.027 (1.001-1.035) Urine Protein Trace H (Negative) Urine Glucose (UA) Negative (Negative) Urine Ketones Negative (Negative) Urine Blood Negative (Negative) Urine Nitrite Negative (Negative) Urine Bilirubin Negative (Negative) Urine Urobilinogen 2.0 (<2.0) mg/dL Ur Leukocyte Esterase Small H (Negative) Urine RBC 2 (0-5) /hpf Urine WBC 15 H (0-5) /hpf Ur Squamous Epith Cells 2 (0-4) /hpf Urine Bacteria Rare H (None) /hpf Urine Mucus Few H (None) /hpf Urine HCG, Qual Not Detected (Not Detectd) 01/12/20 01/12/20 Range/Units 23:23 23:23 WBC (3.8-10.6) k/uL RBC (3.80-5.40) m/uL Hgb (11.4-16.0) gm/dL Hct (34.0-46.0) % MCV (80.0-100.0) fL MCH (25.0-35.0) pg MCHC (31.0-37.0) g/dL RDW (11.5-15.5) % Plt Count (150-450) k/uL Neutrophils % % Lymphocytes % % Monocytes % % Eosinophils % % Basophils % % Neutrophils # (1.3-7.7) k/uL Lymphocytes # (1.0-4.8) k/uL Monocytes # (0-1.0) k/uL Eosinophils # (0-0.7) k/uL Basophils # (0-0.2) k/uL Hypochromasia Microcytosis Sodium 139 (137-145) mmol/L Potassium 4.2 (3.5-5.1) mmol/L Chloride 106 (98-107) mmol/L Carbon Dioxide 28 (22-30) mmol/L Anion Gap 5 mmol/L BUN 12 (7-17) mg/dL Creatinine 0.73 (0.52-1.04) mg/dL Est GFR (CKD-EPI)AfAm >90 (>60 ml/min/1.73 sqM) Est GFR (CKD-EPI)NonAf >90 (>60 ml/min/1.73 sqM) Glucose 96 (74-99) mg/dL Plasma Lactic Acid Darnell 1.8 (0.7-2.0) mmol/L Calcium 9.4 (8.4-10.2) mg/dL Total Bilirubin 0.4 (0.2-1.3) mg/dL AST 47 H (14-36) U/L ALT 68 H (4-34) U/L Alkaline Phosphatase 85 (38-126) U/L Total Protein 6.0 L (6.3-8.2) g/dL Albumin 3.4 L (3.5-5.0) g/dL Amylase 41 (30-110) U/L Lipase 115 (23-300) U/L Urine Color Urine Appearance (Clear) Urine pH (5.0-8.0) Ur Specific [place] (1.001-1.035) Urine Protein (Negative) Urine Glucose (UA) (Negative) Urine Ketones (Negative) Urine Blood (Negative) Urine Nitrite (Negative) Urine Bilirubin (Negative) Urine Urobilinogen (<2.0) mg/dL Ur Leukocyte Esterase (Negative) Urine RBC (0-5) /hpf Urine WBC (0-5) /hpf Ur Squamous Epith Cells (0-4) /hpf Urine Bacteria (None) /hpf Urine Mucus (None) /hpf Urine HCG, Qual (Not Detectd) - Radiology Data Radiology results: report reviewed (Ultrasound pelvis negative for acute disease CT head and pelvis negative for acute disease), image reviewed Disposition Clinical Impression: Obesity, Abdominal pain Disposition: HOME SELF-CARE Condition: Good Instructions (If sedation given, give patient instructions): Abdominal Pain (ED) Is patient prescribed a controlled substance at d/c from ED?: No Referrals: Olvin Keenan MD [Primary Care Provider] - 1-2 days
[2020-01-12 23:47] LABS: Basophils % (A) 0 %; Eosinophils # (A) 0.2 k/uL (0-0.7); Eosinophils % (A) 2 %; HCT 34.7 % (34.0-46.0); HGB 11.1 gm/dL (11.4-16.0); Hypochromasia Moderate; Lymphocytes % (A) 31 %; MCH 24.1 pg (25.0-35.0); MCHC 31.9 g/dL (31.0-37.0); MCV 75.5 fL (80.0-100.0); Mean Platelet Volume 7.6; Microcytosis Slight; Monocytes # (A) 0.4 k/uL (0-1.0); Monocytes % (A) 4 %; Neutrophils % (A) 61 %; Platelet Count 307 k/uL (150-450); RDW 15.9 % (11.5-15.5); WBC 9.8 k/uL (3.8-10.6)
[2020-01-12 23:48] LABS: Appearance,Urine Clear (Clear); Bacteria,Urine Rare /hpf; Bilirubin,Urine Negative (Negative); Blood,Urine Negative (Negative); Color,Urine Yellow; Glucose,Urine (UA) Negative (Negative); Ketones,Urine Negative (Negative); Leukocyte Esterase,Urine Small (Negative); Mucus,Urine Few /hpf; Nitrite,Urine Negative (Negative); PH, Urine 6.5 (5.0-8.0); Protein,Urine Trace (Negative); RBC,Urine 2 /hpf (0-5); Specific Gravity,Urine 1.027 (1.001-1.035); Squamous Epithelial Cell,Urine 2 /hpf (0-4); WBC,Urine 15 /hpf (0-5)
[2020-01-13 00:04] LABS: ALT 68 U/L (4-34); AST 47 U/L (14-36); African American GFR (CKD) >90 (>60 ml/min/1.73 sqM); Albumin 3.4 g/dL (3.5-5.0); Alkaline Phosphatase 85 U/L (38-126); Amylase 41 U/L (30-110); Anion Gap 5 mmol/L; Blood Urea Nitrogen 12 mg/dL (7-17); Calcium 9.4 mg/dL (8.4-10.2); Carbon Dioxide 28 mmol/L (22-30); Chloride 106 mmol/L (98-107); Glucose 96 mg/dL (74-99); Non-African American GFR(CKD) >90 (>60 ml/min/1.73 sqM); Potassium 4.2 mmol/L (3.5-5.1); Sodium 139 mmol/L (137-145); Total Bilirubin 0.4 mg/dL (0.2-1.3)
--- NOTE | 2020-01-13 00:48 | US ---
EXAMINATION TYPE: US transvaginal DATE OF EXAM: 01/13/2020 COMPARISON: CT, US CLINICAL HISTORY: torsion. Pelvic pain x 3 hours. Worse on right side. Hx tubal ligation, 4 s, ovarian cyst. Hx irregular bleeding for several months, but resolved now that patient is on control. . TECHNIQUE: Transvaginal (TV Date of LMP: Unknown EXAM MEASUREMENTS: Uterus: 8.1 x 4.8 x 4.2 cm Endometrial Stripe: 0.71 cm Right Ovary: Not seen Left Ovary: 3.7 x 2.1 x 2.3 cm 1. Uterus: Anteverted Appears heterogeneous. Hypoechoic area with debris seen anteriorly measuring : 1.1 x 1.2 x 0.7 cm. Anechoic fluid-appearing area seen in cervix measurin.9 x 0.4 x 0.2 cm. 2. Endometrium: Measures 0.71 cm. 3. Right Ovary: Not seen. 4. Left Ovary: Measures upper limits of normal versus slightly enlarged. Spectral, color and waveform doppler imaging shows good arterial and venous flow within the left ov pollo. Right ovary not seen. 5. Bilateral Adnexa: Appear wnl 6. Posterior cul-de-sac: Minimal fluid visualized. IMPRESSION: Uterus within normal limits. No endometrial thickening. No evidence of ovarian torsion.
[2020-01-13 01:15] VITALS: RESP 20
--- NOTE | 2020-01-13 01:44 | CT ---
EXAMINATION TYPE: CT abdomen pelvis w con DATE OF EXAM: 01/13/2020 COMPARISON: 11/19/2019 HISTORY: RLQ ABD PAIN CT DLP: 3178.40 mGycm Automated exposure control for dose reduction was used. CONTRAST: Performed with IV Contrast, patient injected with 100 mL of Isovue 300. The lung bases are clear. There is no pleural effusion. Heart size is normal. There is no pericardial effusion. Liver shows no focal defect. There are clips from cholecystectomy. Spleen is intact. There is no panc reatic mass. Stomach is intact. There is no adrenal mass. Kidneys show satisfactory contrast opacification. There is mild right-sided hydronephrosis. There is 1 cm calculus at the right ureteropelvic junction. Delayed images show excr etion by both kidneys and no significant asymmetry. The ureters are not dilated. There is no retroper itoneal adenopathy. The bladder distends smoothly. Uterus is anteverted. There is no evidence of pelv ic mass. There is no inguinal hernia. There is no free fluid in the pelvis. Appendix is not seen with certainty. There is no sign of thickened appendix. There is fluid collection in the left lower anterior abdomen with tubing that extends into the thorac ic spine. The lumbar vertebra have normal spacing and alignment. Posterior elements are intact. The bony pelvis is intact. Hip joints are intact. I see no bony destructive process. IMPRESSION: There is a large calculus at the right ureteropelvic junction. This is not changed in position compar ed to previous exam. There is no significant renal obstruction. There is fairly normal symmetric pyel ogram. There is a mild right side hydronephrosis unchanged. The shunt catheter is in same position as old exam. Size of the fluid collection in the left lower anterior abdomen unchanged.
[2020-01-13] MEDS ORDERED: ACET/COD 300 MG/30 MG STARTER PACK 6 TAB BTL PO STA (01:53)
[2020-01-13 02:06] VITALS: BP 104/66; PULSE 99; TEMP 98.9
== END 2020-01-13 02:04 | disposition home or self-care (01) ==
LOC: EC 22:47
DX: R10.31 Right lower quadrant pain (principal); E66.9 Obesity, unspecified; F41.9 Anxiety disorder, unspecified; F31.9 Bipolar disorder, unspecified; F43.10 Post-traumatic stress disorder, unspecified; M79.7 Fibromyalgia; K21.9 Gastro-esophageal reflux disease without esophagitis; E78.5 Hyperlipidemia, unspecified; Z79.3 Long term (current) use of hormonal contraceptives; Z79.899 Other long term (current) drug therapy; Z86.69 Personal history of other diseases of the nervous system and sense organs; Z98.51 Tubal ligation status; Z68.43 Body mass index [BMI] 50.0-59.9, adult; Z90.49 Acquired absence of other specified parts of digestive tract
CPT/HCPCS: 36415; 80053; 82150; 83605; 83690; 85025; 81001; 81025; 87086; 93976; 76830; 74177; 99285; 96374; 96361; J2270; Q9967

== ENCOUNTER 2020-01-24 19:54 | Emergency (ER) | payer OTHER ==
[2020-01-24 20:11] VITALS: TEMP 98.3
[2020-01-24] MEDS ORDERED: PANTOPRAZOLE 40 MG/10 ML VIAL IVP STA (21:36)
[2020-01-24] MEDS ORDERED: SODIUM CHLORIDE 0.9% 1,000 ML IV STA (21:36)
[2020-01-24] MEDS ORDERED: ONDANSETRON 4 MG/2 ML VIAL IM STA (21:36)
[2020-01-24] MEDS ORDERED: ONDANSETRON 4 MG/2 ML VIAL IVP STA (22:00)
[2020-01-24 22:07] LABS: Basophils % (A) 1 %; Eosinophils # (A) 0.3 k/uL (0-0.7); Eosinophils % (A) 3 %; HCT 36.7 % (34.0-46.0); HGB 11.4 gm/dL (11.4-16.0); Hypochromasia Slight; Lymphocytes % (A) 32 %; MCH 22.8 pg (25.0-35.0); MCHC 31.1 g/dL (31.0-37.0); MCV 73.2 fL (80.0-100.0); Mean Platelet Volume 6.9; Microcytosis Slight; Monocytes # (A) 0.3 k/uL (0-1.0); Monocytes % (A) 3 %; Neutrophils # (A) 5.7 k/uL (1.3-7.7); Neutrophils % (A) 60 %; Platelet Count 321 k/uL (150-450); RBC 5.01 m/uL (3.80-5.40); RDW 15.6 % (11.5-15.5); WBC 9.4 k/uL (3.8-10.6)
[2020-01-24 22:10] LABS: INR 1.2 (<1.2); Partial Thromboplastin Time 29.2 sec (22.0-30.0); Prothrombin Time 12.5 sec (9.0-12.0)
[2020-01-24 22:13] LABS: ALT 34 U/L (4-34); AST 30 U/L (14-36); African American GFR (CKD) >90 (>60 ml/min/1.73 sqM); Albumin 3.5 g/dL (3.5-5.0); Alkaline Phosphatase 90 U/L (38-126); Anion Gap 6 mmol/L; Blood Urea Nitrogen 11 mg/dL (7-17); Calcium 8.5 mg/dL (8.4-10.2); Carbon Dioxide 27 mmol/L (22-30); Chloride 105 mmol/L (98-107); Glucose 85 mg/dL (74-99); Non-African American GFR(CKD) >90 (>60 ml/min/1.73 sqM); Potassium 4.2 mmol/L (3.5-5.1); Sodium 138 mmol/L (137-145); Total Bilirubin 0.6 mg/dL (0.2-1.3); Total Protein 6.1 g/dL (6.3-8.2)
--- NOTE | 2020-01-24 22:30 | ED ---
GI Bleed HPI - General Chief complaint: GI Bleed Stated complaint: Blood in vomit, abd pain Time Seen by Provider: 01/24/20 21:36 Source: patient Mode of arrival: wheelchair Limitations: no limitations - History of Present Illness Initial comments: Yeimy is a 29-year-old female with extensive past medical history including chronic kidney stones, LP shunt, chronic abdominal pain and GI bleeding. Patient presents to ER today with a complaint that she's had multiple episodes of vomiting today and noticed some coffee grounds in her emesis consistent with previous episodes of bleeding in her GI tract. Patient reports she follows with Dr. Vyas gastroenterology she has had endoscopies in the pastspecific cause for her bleeding. Patient reports she's been compliant with all her home medications. Spine patient denies any chest pain, palpitations or lightheadedness. She is not on any anticoagulant or antiplatelet medications. - Related Data Home Medications Medication Instructions Recorded Confirmed Pravastatin Sodium [Pravachol] 20 mg PO HS 01/20/18 01/24/20 LORazepam [Ativan] 1 mg PO HS PRN 11/24/18 01/24/20 Lansoprazole [Prevacid] 30 mg PO BID 12/15/19 01/24/20 buPROPion HCL [Wellbutrin XL] 300 mg PO DAILY 12/15/19 01/24/20 traZODone HCL 50 mg PO HS 12/15/19 01/24/20 ARIPiprazole 20 mg PO HS 01/09/20 01/24/20 ARIPiprazole [Abilify] 5 mg PO DAILY 01/09/20 01/24/20 Norethindrone-E.estradiol-Iron 1 tab PO DAILY 01/09/20 01/24/20 [Microgestin Fe 1-20 Tablet] Topiramate 50 mg PO DAILY 01/09/20 01/24/20 acetaZOLAMIDE [Diamox] 250 mg PO BID 01/09/20 01/24/20 busPIRone HCL 15 mg PO TID 01/09/20 01/24/20 metFORMIN HCL 500 mg PO BID 01/09/20 01/24/20 Amitriptyline HCl [Elavil] 75 mg PO BID 01/24/20 01/24/20 Fluticasone Nasal [place] [Flonase 1 spray EA NOSTRIL DAILY 01/24/20 01/24/20 Nasal [place]] Loratadine [Claritin] 10 mg PO DAILY 01/24/20 01/24/20 Verapamil HCl [Verapamil ER] 180 mg PO HS 01/24/20 01/24/20 Previous Rx's Medication Instructions Recorded Ondansetron [Zofran ODT] 4 mg PO Q8HR #12 tab 01/25/20 Allergies Allergy/AdvReac Type Severity Reaction Status Date / Time No Known Allergies Allergy Verified 01/24/20 22:44 Review of Systems ROS Statement: Those systems with pertinent positive or pertinent negative responses have been documented in the HPI. ROS Other: All systems not noted in ROS Statement are negative. Past Medical History Past Medical History: Fibromyalgia, GERD/Reflux, GI Bleed, Hyperlipidemia Additional Past Medical History / Comment(s): gallstones, kidney stones, IBS, migraines, tachycardia, Martine- Guevara tear History of Any Multi-Drug Resistant Organisms: None Reported Past Surgical History: Section, Cholecystectomy, Tubal Ligation Additional Past Surgical History / Comment(s): neck biopsy (lymph node ) d&c; LP shunt May 13 2019 Past Anesthesia/Blood Transfusion Reactions: No Reported Reaction Past Psychological History: Anxiety, Bipolar, Depression, PTSD Smoking Status: Never smoker Past Alcohol Use History: None Reported Past Drug Use History: Marijuana - Past Family History Mother Family Medical History: Diabetes Mellitus, Hyperlipidemia, Hypertension, Myocardial Infarction ([place]) Additional Family Medical History / Comment(s): [place] X 3 Father Family Medical History: Congestive Heart Failure (CHF), Hyperlipidemia, Hypertension, Myocardial Infarction ([place]) Additional Family Medical History / Comment(s): mi x 3 Son(s) Family Medical History: No Reported History General Exam - General Exam Comments Initial Comments: Physical Exam GENERAL: Patient is well-developed and well-nourished. Patient is nontoxic and well-hydrated and is in no distress. HENT: Normocephalic, Atraumatic. EYES: PERRL, EOMI No conjunctival pallor PULMONARY: Unlabored respirations. CARDIOVASCULAR: RRR Warm and well perfused extremities ABDOMEN: Non-distended, non-tender Firm scar in LLQ where LP shunt is SKIN: No rashes or bruising : Deferred NEUROLOGIC: Alert and oriented Normal speech Normal gait MUSCULOSKELETAL: Moving all extremities with no apparent injury PSYCHIATRIC: No SI/HI Limitations: no limitations Course Vital Signs 09/28/20 20:07 Temperature 98.3 F Pulse Rate 92 Respiratory 18 Rate Blood Pressure 132/80 O2 Sat by Pulse 100 Oximetry Medical Decision Making - Medical Decision Making this is a very well-appearing 29-year-old female who has had nausea throughout the day multiple episodes of emesis and noticed some dark coffee grounds in her emesis concerning for possible GI bleed Labs and imaging were obtained and were unremarkable Hemoglobin has improved from last week At this time I suspect the patient's blood-streaked emesis is secondary to frequent emesis, however she's had no vomiting in the emergency department She'll be discharged home with Ortiz and advised to follow with Dr. Vyas gastroenterology. Patient is agreeable to this plan - Lab Data Result diagrams: 01/24/20 21:55 01/24/20 21:55 Lab Results 01/24/20 01/24/20 01/24/20 Range/Units 21:55 21:55 21:55 WBC 9.4 (3.8-10.6) k/uL RBC 5.01 (3.80-5.40) m/uL Hgb 11.4 (11.4-16.0) gm/dL Hct 36.7 (34.0-46.0) % MCV 73.2 L (80.0-100.0) fL MCH 22.8 L (25.0-35.0) pg MCHC 31.1 (31.0-37.0) g/dL RDW 15.6 H (11.5-15.5) % Plt Count 321 (150-450) k/uL Neutrophils % 60 % Lymphocytes % 32 % Monocytes % 3 % Eosinophils % 3 % Basophils % 1 % Neutrophils # 5.7 (1.3-7.7) k/uL Lymphocytes # 3.0 (1.0-4.8) k/uL Monocytes # 0.3 (0-1.0) k/uL Eosinophils # 0.3 (0-0.7) k/uL Basophils # 0.0 (0-0.2) k/uL Hypochromasia Slight Microcytosis Slight PT 12.5 H (9.0-12.0) sec INR 1.2 H (<1.2) APTT 29.2 (22.0-30.0) sec Sodium 138 (137-145) mmol/L Potassium 4.2 (3.5-5.1) mmol/L Chloride 105 (98-107) mmol/L Carbon Dioxide 27 (22-30) mmol/L Anion Gap 6 mmol/L BUN 11 (7-17) mg/dL Creatinine 0.67 (0.52-1.04) mg/dL Est GFR (CKD-EPI)AfAm >90 (>60 ml/min/1.73 sqM) Est GFR (CKD-EPI)NonAf >90 (>60 ml/min/1.73 sqM) Glucose 85 (74-99) mg/dL Calcium 8.5 (8.4-10.2) mg/dL Total Bilirubin 0.6 (0.2-1.3) mg/dL AST 30 (14-36) U/L ALT 34 (4-34) U/L Alkaline Phosphatase 90 (38-126) U/L Total Protein 6.1 L (6.3-8.2) g/dL Albumin 3.5 (3.5-5.0) g/dL Urine Color Urine Appearance (Clear) Urine pH (5.0-8.0) Ur Specific [place] (1.001-1.035) Urine Protein (Negative) Urine Glucose (UA) (Negative) Urine Ketones (Negative) Urine Blood (Negative) Urine Nitrite (Negative) Urine Bilirubin (Negative) Urine Urobilinogen (<2.0) mg/dL Ur Leukocyte Esterase (Negative) Urine RBC (0-5) /hpf Urine WBC (0-5) /hpf Ur Squamous Epith Cells (0-4) /hpf Urine Bacteria (None) /hpf Urine Mucus (None) /hpf Urine Yeast (Budding) (None) /hpf 01/25/20 Range/Units 00:08 WBC (3.8-10.6) k/uL RBC (3.80-5.40) m/uL Hgb (11.4-16.0) gm/dL Hct (34.0-46.0) % MCV (80.0-100.0) fL MCH (25.0-35.0) pg MCHC (31.0-37.0) g/dL RDW (11.5-15.5) % Plt Count (150-450) k/uL Neutrophils % % Lymphocytes % % Monocytes % % Eosinophils % % Basophils % % Neutrophils # (1.3-7.7) k/uL Lymphocytes # (1.0-4.8) k/uL Monocytes # (0-1.0) k/uL Eosinophils # (0-0.7) k/uL Basophils # (0-0.2) k/uL Hypochromasia Microcytosis PT (9.0-12.0) sec INR (<1.2) APTT (22.0-30.0) sec Sodium (137-145) mmol/L Potassium (3.5-5.1) mmol/L Chloride (98-107) mmol/L Carbon Dioxide (22-30) mmol/L Anion Gap mmol/L BUN (7-17) mg/dL Creatinine (0.52-1.04) mg/dL Est GFR (CKD-EPI)AfAm (>60 ml/min/1.73 sqM) Est GFR (CKD-EPI)NonAf (>60 ml/min/1.73 sqM) Glucose (74-99) mg/dL Calcium (8.4-10.2) mg/dL Total Bilirubin (0.2-1.3) mg/dL AST (14-36) U/L ALT (4-34) U/L Alkaline Phosphatase (38-126) U/L Total Protein (6.3-8.2) g/dL Albumin (3.5-5.0) g/dL Urine Color Yellow Urine Appearance Clear (Clear) Urine pH 6.5 (5.0-8.0) Ur Specific [place] 1.017 (1.001-1.035) Urine Protein Negative (Negative) Urine Glucose (UA) Negative (Negative) Urine Ketones Negative (Negative) Urine Blood Negative (Negative) Urine Nitrite Negative (Negative) Urine Bilirubin Negative (Negative) Urine Urobilinogen <2.0 (<2.0) mg/dL Ur Leukocyte Esterase Small H (Negative) Urine RBC <1 (0-5) /hpf Urine WBC 16 H (0-5) /hpf Ur Squamous Epith Cells 1 (0-4) /hpf Urine Bacteria Rare H (None) /hpf Urine Mucus Moderate H (None) /hpf Urine Yeast (Budding) Occasional H (None) /hpf Disposition Clinical Impression: Nausea and vomiting, Kidney stone Disposition: HOME SELF-CARE Condition: Stable Additional Instructions: Follow up with Dr Vyas for GI bleeding Return to the ER for any worsening Prescriptions: Ondansetron [Zofran ODT] 4 mg PO Q8HR #12 tab Is patient prescribed a controlled substance at d/c from ED?: No Referrals: Olvin Keenan MD [Primary Care Provider] - 1-2 days
--- NOTE | 2020-01-24 22:31 | XR ---
EXAMINATION TYPE: XR abdomen 2V DATE OF EXAM: 01/24/2020 COMPARISON: 06/23/2019 HISTORY: Abdominal pain TECHNIQUE: 2 views supine and upright FINDINGS: There are clips from cholecystectomy. Bowel gas pattern is normal. There is no sign of inte stinal obstruction or pneumoperitoneum. There is 11 mm calcification over the right upper quadrant ov er the medial aspect lower pole right kidney. This could be a proximal ureteral calculus. There is no evidence of a mass. There is clips from tubal ligation. Fecal pattern is normal. Lung bases are payal r. IMPRESSION: Calcification on the right side proximal right ureter has moved slightly compared to 06/23 exam. Calculus is in same location as the CT scan of 01/13/2020.
[2020-01-24] MEDS ORDERED: MORPHINE SULFATE 4 MG/ML SYRINGE IVP STA (22:47)
[2020-01-25 00:16] LABS: Appearance,Urine Clear (Clear); Bacteria,Urine Rare /hpf; Bilirubin,Urine Negative (Negative); Blood,Urine Negative (Negative); Budding Yeast,Urine Occasional /hpf; Color,Urine Yellow; Glucose,Urine (UA) Negative (Negative); Ketones,Urine Negative (Negative); Leukocyte Esterase,Urine Small (Negative); Mucus,Urine Moderate /hpf; Nitrite,Urine Negative (Negative); PH, Urine 6.5 (5.0-8.0); Protein,Urine Negative (Negative); RBC,Urine <1 /hpf (0-5); Specific Gravity,Urine 1.017 (1.001-1.035); Squamous Epithelial Cell,Urine 1 /hpf (0-4); Urobilinogen,Urine <2.0 mg/dL (<2.0); WBC,Urine 16 /hpf (0-5)
[2020-01-25] MEDS ORDERED: ONDANSETRON 4 MG ODT STARTER PACK 2 TAB BTL PO STA (00:28)
[2020-01-25] MEDS ORDERED: ACET/COD 300 MG/30 MG STARTER PACK 6 TAB BTL PO STA (00:28)
[2020-01-25 00:56] VITALS: BP 129/59; PULSE 90; RESP 16
== END 2020-01-25 00:55 | disposition home or self-care (01) ==
LOC: EC 19:54
DX: N20.0 Calculus of kidney (principal); K92.0 Hematemesis; K21.9 Gastro-esophageal reflux disease without esophagitis; K58.9 Irritable bowel syndrome, unspecified; M79.7 Fibromyalgia; E78.5 Hyperlipidemia, unspecified; F41.9 Anxiety disorder, unspecified; F31.9 Bipolar disorder, unspecified; F43.10 Post-traumatic stress disorder, unspecified; G43.909 Migraine, unspecified, not intractable, without status migrainosus; Z90.49 Acquired absence of other specified parts of digestive tract; Z79.3 Long term (current) use of hormonal contraceptives; Z79.899 Other long term (current) drug therapy; Z98.890 Other specified postprocedural states; Z98.51 Tubal ligation status
CPT/HCPCS: 99285; 96374; 96375 ×2; 96361; 36415; 80053; 85025; 85610; 85730; 81001; 74019; J2270; J2405; S0119; C9113

== ENCOUNTER 2020-02-11 18:15 | Emergency (ER) | payer OTHER ==
[2020-02-11 18:22] VITALS: TEMP 98.6
[2020-02-11] MEDS ORDERED: HYDROmorphone 0.5 MG/0.5 ML SYRINGE IVP STA (18:57)
[2020-02-11] MEDS ORDERED: SODIUM CHLORIDE 0.9% 1,000 ML IV STA (18:57)
[2020-02-11] MEDS ORDERED: ONDANSETRON 4 MG/2 ML VIAL IVP STA (18:57)
[2020-02-11 19:58] LABS: Amorphous Sediment,Urine Rare /hpf; Appearance,Urine Clear (Clear); Bacteria,Urine Few /hpf; Bilirubin,Urine Negative (Negative); Blood,Urine Negative (Negative); Color,Urine Yellow; Glucose,Urine (UA) Negative (Negative); Hyaline Casts,Urine 3 /lpf (0-2); Ketones,Urine Negative (Negative); Leukocyte Esterase,Urine Trace (Negative); Mucus,Urine Rare /hpf; Nitrite,Urine Negative (Negative); Protein,Urine Negative (Negative); Specific Gravity,Urine 1.027 (1.001-1.035); Squamous Epithelial Cell,Urine 1 /hpf (0-4); Urobilinogen,Urine <2.0 mg/dL (<2.0); WBC,Urine 12 /hpf (0-5)
--- NOTE | 2020-02-11 20:09 | XR ---
EXAMINATION TYPE: XR KUB DATE OF EXAM: 02/11/2020 COMPARISON: 01/24/2020 HISTORY: Abdominal pain TECHNIQUE: FINDINGS: 2 views upright show no sign of intestinal obstruction or pneumoperitoneum. There are clips apparently from tubal ligation. There is some tubing in the pelvis. There are clips from cholecystec cassandra. There is no evidence of a mass. Lung bases are clear. There is 6 mm calcification over the right transverse process of L4 that could be a ureteral calculus . IMPRESSION: Previous surgery. Nonacute abdomen. Tubing projected over the mid pelvis of uncertain sig nificance. Possible urinary tract calculus at the ureteropelvic junction on the right side unchanged.
[2020-02-11 20:22] LABS: Anisocytosis Slight; Basophils % (A) 0 %; Eosinophils # (A) 0.2 k/uL (0-0.7); Eosinophils % (A) 2 %; HCT 38.2 % (34.0-46.0); HGB 12.1 gm/dL (11.4-16.0); Hypochromasia Moderate; Lymphocytes # (A) 2.4 k/uL (1.0-4.8); Lymphocytes % (A) 24 %; MCH 24.6 pg (25.0-35.0); MCHC 31.8 g/dL (31.0-37.0); MCV 77.5 fL (80.0-100.0); Mean Platelet Volume 7.1; Microcytosis Slight; Monocytes # (A) 0.3 k/uL (0-1.0); Monocytes % (A) 3 %; Neutrophils # (A) 6.7 k/uL (1.3-7.7); Neutrophils % (A) 69 %; Platelet Count 323 k/uL (150-450); RBC 4.93 m/uL (3.80-5.40); RDW 16.5 % (11.5-15.5); WBC 9.8 k/uL (3.8-10.6)
[2020-02-11 20:32] LABS: ALT 51 U/L (4-34); AST 42 U/L (14-36); African American GFR (CKD) >90 (>60 ml/min/1.73 sqM); Albumin 3.6 g/dL (3.5-5.0); Alkaline Phosphatase 98 U/L (38-126); Anion Gap 8 mmol/L; Blood Urea Nitrogen 12 mg/dL (7-17); Calcium 9.2 mg/dL (8.4-10.2); Carbon Dioxide 21 mmol/L (22-30); Chloride 108 mmol/L (98-107); Glucose 87 mg/dL (74-99); Non-African American GFR(CKD) >90 (>60 ml/min/1.73 sqM); Potassium 4.4 mmol/L (3.5-5.1); Sodium 137 mmol/L (137-145); Total Bilirubin 0.4 mg/dL (0.2-1.3); Total Protein 6.4 g/dL (6.3-8.2)
[2020-02-11] MEDS ORDERED: cefTRIAXone IN SWFI 1,000 MG/10 ML SYRINGE IVP STA (20:58)
[2020-02-11 21:13] VITALS: BP 130/76; PULSE 105; RESP 16
[2020-02-11] MEDS ORDERED: CEPHALEXIN 500MG STARTER PACK 4 CAP BTL PO STA (21:36)
--- NOTE | 2020-02-11 21:36 | ED ---
Abdominal Pain HPI - General Chief Complaint: Abdominal Pain Stated Complaint: Abd pain Time Seen by Provider: 02/11/20 18:44 Source: patient Mode of arrival: ambulatory Limitations: no limitations - History of Present Illness Initial Comments: 29-year-old female patient presents to the emergency department today for evaluation of right lower quadrant abdominal pain radiating to the right flank. States the pain has been going on for the last couple of days. She denies any hematuria, dysuria, urinary frequency, urinary urgency. Denies nausea or vom iting. Denies fever or chills. Patient states she has had pain similar to this in the past with kidney stones. Patient states she is taking Tylenol with codeine at home without relief. States she is unable to take NSAIDs due to history of GI bleed. Patient denies any recent rash, cough, shortness of breath, chest pain, diarrhea, constipation, numbness, tingling, dizziness, weakness, headache, visual changes, or any other complaints. - Related Data Home Medications Medication Instructions Recorded Confirmed Pravastatin Sodium [Pravachol] 20 mg PO HS 01/20/18 01/24/20 LORazepam [Ativan] 1 mg PO HS PRN 11/24/18 01/24/20 Lansoprazole [Prevacid] 30 mg PO BID 12/15/19 01/24/20 buPROPion HCL [Wellbutrin XL] 300 mg PO DAILY 12/15/19 01/24/20 traZODone HCL 50 mg PO HS 12/15/19 01/24/20 ARIPiprazole 20 mg PO HS 01/09/20 01/24/20 ARIPiprazole [Abilify] 5 mg PO DAILY 01/09/20 01/24/20 Norethindrone-E.estradiol-Iron 1 tab PO DAILY 01/09/20 01/24/20 [Microgestin Fe 1-20 Tablet] Topiramate 50 mg PO DAILY 01/09/20 01/24/20 acetaZOLAMIDE [Diamox] 250 mg PO BID 01/09/20 01/24/20 busPIRone HCL 15 mg PO TID 01/09/20 01/24/20 metFORMIN HCL 500 mg PO BID 01/09/20 01/24/20 Amitriptyline HCl [Elavil] 75 mg PO BID 01/24/20 01/24/20 Fluticasone Nasal [place] [Flonase 1 spray EA NOSTRIL DAILY 01/24/20 01/24/20 Nasal [place]] Loratadine [Claritin] 10 mg PO DAILY 01/24/20 01/24/20 Verapamil HCl [Verapamil ER] 180 mg PO HS 01/24/20 01/24/20 Previous Rx's Medication Instructions Recorded Ondansetron [Zofran ODT] 4 mg PO Q8HR #12 tab 01/25/20 Cephalexin [Keflex] 500 mg PO Q6HR #40 cap 02/11/20 Allergies Allergy/AdvReac Type Severity Reaction Status Date / Time No Known Allergies Allergy Verified 02/11/20 18:22 Review of Systems ROS Statement: Those systems with pertinent positive or pertinent negative responses have been documented in the HPI. ROS Other: All systems not noted in ROS Statement are negative. Past Medical History Past Medical History: Fibromyalgia, GERD/Reflux, GI Bleed, Hyperlipidemia Additional Past Medical History / Comment(s): gallstones, kidney stones, IBS, migraines, tachycardia, Martine- Guevara tear History of Any Multi-Drug Resistant Organisms: None Reported Past Surgical History: Section, Cholecystectomy, Tubal Ligation Additional Past Surgical History / Comment(s): neck biopsy (lymph node ) d&c; LP shunt May 13 2019 feb 0211/2019 -revision Past Anesthesia/Blood Transfusion Reactions: No Reported Reaction Past Psychological History: Anxiety, Bipolar, Depression, PTSD Smoking Status: Never smoker Past Alcohol Use History: None Reported Past Drug Use History: Marijuana - Past Family History Mother Family Medical History: Diabetes Mellitus, Hyperlipidemia, Hypertension, Myocardial Infarction (ID) Additional Family Medical History / Comment(s): ID X 3 Father Family Medical History: Congestive Heart Failure (CHF), Hyperlipidemia, Hypertension, Myocardial Infarction (ID) Additional Family Medical History / Comment(s): mi x 3 Son(s) Family Medical History: No Reported History General Exam Limitations: no limitations General appearance: alert, in no apparent distress, other (This a well- developed, well-nourished adult female patient in no acute distress. Vital signs upon presentation are temperature 98.6F, pulse 111, respirations 20, blood pressure 141/84, pulse ox 99% on room air.) Eye exam: Present: normal appearance, PERRL, EOMI. Absent: scleral icterus, conjunctival injection, periorbital swelling ENT exam: Present: normal exam, normal oropharynx, mucous membranes moist Respiratory exam: Present: normal lung sounds bilaterally. Absent: respiratory distress, wheezes, rales, rhonchi, stridor Cardiovascular Exam: Present: regular rate, normal rhythm, normal heart sounds. Absent: systolic murmur, diastolic murmur, rubs, gallop, clicks GI/Abdominal exam: Present: soft, normal bowel sounds. Absent: distended, tenderness, guarding, rebound, rigid Back exam: Present: CVA tenderness (R). Absent: CVA tenderness (L) Neurological exam: Present: alert, oriented X3, CN II-XII intact Psychiatric exam: Present: normal affect, normal mood Skin exam: Present: warm, dry, intact, normal color. Absent: rash Course Vital Signs 02/11/20 02/11/20 18:19 20:45 Temperature 98.6 F Pulse Rate 111 H 105 H Respiratory 20 16 Rate Blood Pressure 141/84 130/76 O2 Sat by Pulse 99 99 Oximetry Medical Decision Making - Medical Decision Making 29-year-old female patient presents to the emergency department today for evaluation of right lower quadrant and right flank pain. Physical examination did reveal right CVA tenderness. Labs reviewed and did reveal normal white blood cell count. There is evidence for white blood cells and bacteria in the urine. X-ray of the abdomen shows a persistent stone over the right UPJ region. I did discuss this finding with the patient. Informed her that we would treat with antibiotic for possible infection but she needs to follow-up with urology for further evaluation and possible removal of the stone. She does have Tylenol codeine at home she is urged to continue this for pain control. She is given antibiotic prescription. Return parameters were discussed in detail. She verbalizes understanding and agrees with this plan. - Lab Data Result diagrams: 02/11/20 19:46 02/11/20 19:46 Lab Results 02/11/20 02/11/20 02/11/20 Range/Units 19:40 19:46 19:46 WBC 9.8 (3.8-10.6) k/uL RBC 4.93 (3.80-5.40) m/uL Hgb 12.1 (11.4-16.0) gm/dL Hct 38.2 (34.0-46.0) % MCV 77.5 L (80.0-100.0) fL MCH 24.6 L (25.0-35.0) pg MCHC 31.8 (31.0-37.0) g/dL RDW 16.5 H (11.5-15.5) % Plt Count 323 (150-450) k/uL Neutrophils % 69 % Lymphocytes % 24 % Monocytes % 3 % Eosinophils % 2 % Basophils % 0 % Neutrophils # 6.7 (1.3-7.7) k/uL Lymphocytes # 2.4 (1.0-4.8) k/uL Monocytes # 0.3 (0-1.0) k/uL Eosinophils # 0.2 (0-0.7) k/uL Basophils # 0.0 (0-0.2) k/uL Hypochromasia Moderate Anisocytosis Slight Microcytosis Slight Sodium 137 (137-145) mmol/L Potassium 4.4 (3.5-5.1) mmol/L Chloride 108 H (98-107) mmol/L Carbon Dioxide 21 L (22-30) mmol/L Anion Gap 8 mmol/L BUN 12 (7-17) mg/dL Creatinine 0.71 (0.52-1.04) mg/dL Est GFR (CKD-EPI)AfAm >90 (>60 ml/min/1.73 sqM) Est GFR (CKD-EPI)NonAf >90 (>60 ml/min/1.73 sqM) Glucose 87 (74-99) mg/dL Calcium 9.2 (8.4-10.2) mg/dL Total Bilirubin 0.4 (0.2-1.3) mg/dL AST 42 H (14-36) U/L ALT 51 H (4-34) U/L Alkaline Phosphatase 98 (38-126) U/L Total Protein 6.4 (6.3-8.2) g/dL Albumin 3.6 (3.5-5.0) g/dL Lipase 171 (23-300) U/L Urine Color Yellow Urine Appearance Clear (Clear) Urine pH 6.0 (5.0-8.0) Ur Specific [place] 1.027 (1.001-1.035) Urine Protein Negative (Negative) Urine Glucose (UA) Negative (Negative) Urine Ketones Negative (Negative) Urine Blood Negative (Negative) Urine Nitrite Negative (Negative) Urine Bilirubin Negative (Negative) Urine Urobilinogen <2.0 (<2.0) mg/dL Ur Leukocyte Esterase Trace H (Negative) Urine WBC 12 H (0-5) /hpf Ur Squamous Epith Cells 1 (0-4) /hpf Amorphous Sediment Rare H (None) /hpf Urine Bacteria Few H (None) /hpf Hyaline Casts 3 H (0-2) /lpf Urine Mucus Rare H (None) /hpf - Radiology Data Radiology results: report reviewed, image reviewed KUB x-ray is obtained. Report was reviewed in its entirety. Impression by Dr. Jolly shows possible urinary tract calculus at the UPJ on the right side unchanged. Disposition Clinical Impression: Right sided abdominal pain, Right flank pain Disposition: HOME SELF-CARE Condition: Good Instructions (If sedation given, give patient instructions): Abdominal Pain (ED), Flank Pain (ED) Additional Instructions: Increase fluids. Take home pain medications as directed. Complete antibiotic prescription and full. Follow-up with urologist for further evaluation as soon as possible. Follow-up with your primary care physician for recheck in 1-2 days. Return to the emergency department immediately for any new, worsening, or concerning symptoms. Prescriptions: Cephalexin [Keflex] 500 mg PO Q6HR #40 cap Is patient prescribed a controlled substance at d/c from ED?: No Referrals: Olvin Keenan MD [Primary Care Provider] - 1-2 days Juan M Garcias MD [STAFF PHYSICIAN] - 1-2 days Time of Disposition: 21:35
== END 2020-02-11 21:45 | disposition home or self-care (01) ==
LOC: EC 18:15
DX: N20.1 Calculus of ureter (principal); F41.9 Anxiety disorder, unspecified; F31.9 Bipolar disorder, unspecified; F43.10 Post-traumatic stress disorder, unspecified; M79.7 Fibromyalgia; K21.9 Gastro-esophageal reflux disease without esophagitis; E78.5 Hyperlipidemia, unspecified; Z90.49 Acquired absence of other specified parts of digestive tract; Z79.899 Other long term (current) drug therapy
CPT/HCPCS: 36415; 80053; 83690; 85025; 81025; 87086; 74018; 99284; 96374; 96375 ×2; 96361; J2405; J0696; J1170; 81001

== ENCOUNTER 2020-02-14 17:37 | Emergency (ER) | payer OTHER ==
[2020-02-14 18:02] VITALS: RESP 18
[2020-02-14] MEDS ORDERED: SODIUM CHLORIDE 0.9% 1,000 ML IV STA (18:25)
[2020-02-14] MEDS ORDERED: HYDROmorphone 0.5 MG/0.5 ML SYRINGE IVP STA (18:27)
--- NOTE | 2020-02-14 18:56 | ED ---
Abdominal Pain HPI - General Chief Complaint: Abdominal Pain Stated Complaint: abd & back pain Time Seen by Provider: 02/14/20 18:05 Source: patient Mode of arrival: wheelchair Limitations: no limitations - History of Present Illness Initial Comments: Patient is a 29-year-old female presenting to emergency department with a chief complaint of flank pain. Patient reports the pain began 4 days ago with gradual increase in severity. Patient reports the pain is starting in the right flank region with some radiation to the right inguinal region. Patient states she is feeling constant burning sensation. She denies any nausea vomiting or diarrhea. Denies any alleviating factors. Patient does report a surgical history of tubal C-sections and cholecystectomy. She denies any night sweats or chills. Denies any chest pain or shortness of breath. Reports the pain is not related to by mouth intake. - Related Data Home Medications Medication Instructions Recorded Confirmed Pravastatin Sodium [Pravachol] 20 mg PO HS 01/20/18 01/24/20 LORazepam [Ativan] 1 mg PO HS PRN 11/24/18 01/24/20 Lansoprazole [Prevacid] 30 mg PO BID 12/15/19 01/24/20 buPROPion HCL [Wellbutrin XL] 300 mg PO DAILY 12/15/19 01/24/20 traZODone HCL 50 mg PO HS 12/15/19 01/24/20 ARIPiprazole 20 mg PO HS 01/09/20 01/24/20 ARIPiprazole [Abilify] 5 mg PO DAILY 01/09/20 01/24/20 Norethindrone-E.estradiol-Iron 1 tab PO DAILY 01/09/20 01/24/20 [Microgestin Fe 1-20 Tablet] Topiramate 50 mg PO DAILY 01/09/20 01/24/20 acetaZOLAMIDE [Diamox] 250 mg PO BID 01/09/20 01/24/20 busPIRone HCL 15 mg PO TID 01/09/20 01/24/20 metFORMIN HCL 500 mg PO BID 01/09/20 01/24/20 Amitriptyline HCl [Elavil] 75 mg PO BID 01/24/20 01/24/20 Fluticasone Nasal [place] [Flonase 1 spray EA NOSTRIL DAILY 01/24/20 01/24/20 Nasal [place]] Loratadine [Claritin] 10 mg PO DAILY 01/24/20 01/24/20 Verapamil HCl [Verapamil ER] 180 mg PO HS 01/24/20 01/24/20 Previous Rx's Medication Instructions Recorded Ondansetron [Zofran ODT] 4 mg PO Q8HR #12 tab 01/25/20 Cephalexin [Keflex] 500 mg PO Q6HR #40 cap 02/11/20 Allergies Allergy/AdvReac Type Severity Reaction Status Date / Time No Known Allergies Allergy Verified 02/14/20 18:03 Review of Systems ROS Statement: Those systems with pertinent positive or pertinent negative responses have been documented in the HPI. ROS Other: All systems not noted in ROS Statement are negative. Past Medical History Past Medical History: Fibromyalgia, GERD/Reflux, GI Bleed, Hyperlipidemia Additional Past Medical History / Comment(s): gallstones, kidney stones, IBS, migraines, tachycardia, Martine- Guevara tear History of Any Multi-Drug Resistant Organisms: None Reported Past Surgical History: Section, Cholecystectomy, Tubal Ligation Additional Past Surgical History / Comment(s): neck biopsy (lymph node ) d&c; LP shunt May 13 2019 feb 0211/2019 -revision Past Anesthesia/Blood Transfusion Reactions: No Reported Reaction Past Psychological History: Anxiety, Bipolar, Depression, PTSD Smoking Status: Never smoker Past Alcohol Use History: None Reported Past Drug Use History: Marijuana - Past Family History Mother Family Medical History: Diabetes Mellitus, Hyperlipidemia, Hypertension, Myocardial Infarction (ID) Additional Family Medical History / Comment(s): ID X 3 Father Family Medical History: Congestive Heart Failure (CHF), Hyperlipidemia, Hypertension, Myocardial Infarction (ID) Additional Family Medical History / Comment(s): mi x 3 Son(s) Family Medical History: No Reported History General Exam Limitations: no limitations General appearance: alert, in no apparent distress, obese Head exam: Present: atraumatic, normocephalic, normal inspection Eye exam: Present: normal appearance, PERRL, EOMI Pupils: Present: normal accommodation ENT exam: Present: normal exam, normal oropharynx, mucous membranes moist, TM's normal bilaterally, normal external ear exam Neck exam: Present: normal inspection, full ROM. Absent: tenderness Respiratory exam: Present: normal lung sounds bilaterally. Absent: respiratory distress, wheezes, rales Cardiovascular Exam: Present: regular rate, normal rhythm, normal heart sounds GI/Abdominal exam: Present: soft, tenderness (Right lower quadrant, right flank.). Absent: distended, guarding, rebound, rigid Extremities exam: Present: normal inspection, full ROM, normal capillary refill. Absent: tenderness Back exam: Present: normal inspection, full ROM. Absent: tenderness, CVA tenderness (R), CVA tenderness (L) Neurological exam: Present: alert, oriented X3 Psychiatric exam: Present: normal affect, normal mood Skin exam: Present: warm, dry, intact, normal color Course Vital Signs 02/14/20 02/14/20 18:01 20:22 Temperature 99.7 F H 97.6 F Pulse Rate 106 H 97 Respiratory 18 18 Rate Blood Pressure 135/72 121/65 O2 Sat by Pulse 97 100 Oximetry - Reevaluation(s) Reevaluation #1: 02/15/20 15:16 Medical record reviewed Medical Decision Making - Medical Decision Making Patient is a 29-year-old male presenting to the emergency department with a chief complaint of abdominal pain. Patient is well-known to the emergency department for recurrent visits due to the abdominal pain. On evaluation, patient continues to have the same flank pain with some CVA tenderness. CBC is unremarkable. CMP reveals mild elevation in liver enzymes. UA shows no signs of urinary tract infection. Patient was given IV fluids and analgesia. On reevaluation, patient reports improvement in symptoms. Advised the patient to follow up with the GI specialist. Strict return parameters were thoroughly discussed with patient standing and agreeable. Case discussed with physician. - Lab Data Result diagrams: 02/14/20 18:44 02/14/20 18:44 Lab Results 02/14/20 02/14/20 02/14/20 Range/Units 18:44 18:44 18:44 WBC 10.4 (3.8-10.6) k/uL RBC 5.11 (3.80-5.40) m/uL Hgb 12.4 (11.4-16.0) gm/dL Hct 38.9 (34.0-46.0) % MCV 76.2 L (80.0-100.0) fL MCH 24.2 L (25.0-35.0) pg MCHC 31.8 (31.0-37.0) g/dL RDW 16.3 H (11.5-15.5) % Plt Count 332 (150-450) k/uL Neutrophils % 67 % Lymphocytes % 25 % Monocytes % 4 % Eosinophils % 3 % Basophils % 1 % Neutrophils # 7.0 (1.3-7.7) k/uL Lymphocytes # 2.6 (1.0-4.8) k/uL Monocytes # 0.4 (0-1.0) k/uL Eosinophils # 0.3 (0-0.7) k/uL Basophils # 0.1 (0-0.2) k/uL Hypochromasia Slight Anisocytosis Slight Microcytosis Slight Sodium 139 (137-145) mmol/L Potassium 4.3 (3.5-5.1) mmol/L Chloride 111 H (98-107) mmol/L Carbon Dioxide 21 L (22-30) mmol/L Anion Gap 7 mmol/L BUN 12 (7-17) mg/dL Creatinine 0.74 (0.52-1.04) mg/dL Est GFR (CKD-EPI)AfAm >90 (>60 ml/min/1.73 sqM) Est GFR (CKD-EPI)NonAf >90 (>60 ml/min/1.73 sqM) Glucose 98 (74-99) mg/dL Calcium 9.3 (8.4-10.2) mg/dL Total Bilirubin 0.5 (0.2-1.3) mg/dL AST 49 H (14-36) U/L ALT 55 H (4-34) U/L Alkaline Phosphatase 91 (38-126) U/L Total Protein 6.3 (6.3-8.2) g/dL Albumin 3.5 (3.5-5.0) g/dL Lipase 71 (23-300) U/L Urine Color Yellow Urine Appearance Cloudy H (Clear) Urine pH 6.5 (5.0-8.0) Ur Specific [place] 1.027 (1.001-1.035) Urine Protein Trace H (Negative) Urine Glucose (UA) Negative (Negative) Urine Ketones Negative (Negative) Urine Blood Negative (Negative) Urine Nitrite Negative (Negative) Urine Bilirubin Negative (Negative) Urine Urobilinogen 3.0 (<2.0) mg/dL Ur Leukocyte Esterase Small H (Negative) Urine WBC 7 H (0-5) /hpf Ur Squamous Epith Cells 4 (0-4) /hpf Calcium Oxalate Crystal Occasional H (None) /hpf Urine Bacteria Rare H (None) /hpf Urine Mucus Few H (None) /hpf Disposition Clinical Impression: Abdominal pain Disposition: HOME SELF-CARE Condition: Stable Instructions (If sedation given, give patient instructions): Abdominal Pain (ED) Additional Instructions: Follow with Dr. gabriel. Return to emergency department if symptoms worsen. Is patient prescribed a controlled substance at d/c from ED?: No Referrals: Olvin Keenan MD [Primary Care Provider] - 1-2 days Time of Disposition: 19:46
[2020-02-14 19:07] LABS: Anisocytosis Slight; Basophils # (A) 0.1 k/uL (0-0.2); Basophils % (A) 1 %; Eosinophils # (A) 0.3 k/uL (0-0.7); Eosinophils % (A) 3 %; HCT 38.9 % (34.0-46.0); HGB 12.4 gm/dL (11.4-16.0); Hypochromasia Slight; Lymphocytes # (A) 2.6 k/uL (1.0-4.8); Lymphocytes % (A) 25 %; MCH 24.2 pg (25.0-35.0); MCHC 31.8 g/dL (31.0-37.0); MCV 76.2 fL (80.0-100.0); Mean Platelet Volume 6.9; Microcytosis Slight; Monocytes # (A) 0.4 k/uL (0-1.0); Monocytes % (A) 4 %; Neutrophils % (A) 67 %; Platelet Count 332 k/uL (150-450); RBC 5.11 m/uL (3.80-5.40); RDW 16.3 % (11.5-15.5); WBC 10.4 k/uL (3.8-10.6)
[2020-02-14 19:16] LABS: ALT 55 U/L (4-34); AST 49 U/L (14-36); African American GFR (CKD) >90 (>60 ml/min/1.73 sqM); Albumin 3.5 g/dL (3.5-5.0); Alkaline Phosphatase 91 U/L (38-126); Anion Gap 7 mmol/L; Blood Urea Nitrogen 12 mg/dL (7-17); Calcium 9.3 mg/dL (8.4-10.2); Carbon Dioxide 21 mmol/L (22-30); Chloride 111 mmol/L (98-107); Glucose 98 mg/dL (74-99); Lipase 71 U/L (23-300); Non-African American GFR(CKD) >90 (>60 ml/min/1.73 sqM); Potassium 4.3 mmol/L (3.5-5.1); Sodium 139 mmol/L (137-145); Total Bilirubin 0.5 mg/dL (0.2-1.3); Total Protein 6.3 g/dL (6.3-8.2)
[2020-02-14 19:36] LABS: Appearance,Urine Cloudy (Clear); Bacteria,Urine Rare /hpf; Bilirubin,Urine Negative (Negative); Blood,Urine Negative (Negative); Calcium Oxalate Crystals,Urine Occasional /hpf; Color,Urine Yellow; Glucose,Urine (UA) Negative (Negative); Ketones,Urine Negative (Negative); Leukocyte Esterase,Urine Small (Negative); Mucus,Urine Few /hpf; Nitrite,Urine Negative (Negative); PH, Urine 6.5 (5.0-8.0); Protein,Urine Trace (Negative); Specific Gravity,Urine 1.027 (1.001-1.035); Squamous Epithelial Cell,Urine 4 /hpf (0-4); WBC,Urine 7 /hpf (0-5)
[2020-02-14 20:25] VITALS: BP 121/65; PULSE 97; TEMP 97.6
== END 2020-02-14 20:24 | disposition home or self-care (01) ==
LOC: EC 17:37
DX: R10.9 Unspecified abdominal pain (principal); R10.813 Right lower quadrant abdominal tenderness; E78.5 Hyperlipidemia, unspecified; K21.9 Gastro-esophageal reflux disease without esophagitis; F41.9 Anxiety disorder, unspecified; F31.9 Bipolar disorder, unspecified; Z79.899 Other long term (current) drug therapy; Z79.84 Long term (current) use of oral hypoglycemic drugs; Z79.51 Long term (current) use of inhaled steroids; Z90.49 Acquired absence of other specified parts of digestive tract
CPT/HCPCS: 36415; 80053; 83690; 85025; 81001; 99284; 96374; 96361; J1170

== ENCOUNTER 2020-02-20 00:44 | Observation (INO) | payer OTHER ==
[2020-02-20] MEDS ORDERED: HYDROmorphone 1 MG/ML 1 ML SYRINGE IVP STA (01:26)
[2020-02-20] MEDS ORDERED: ONDANSETRON 4 MG/2 ML VIAL IVP STA (01:26)
--- NOTE | 2020-02-20 01:35 | ED ---
Abdominal Pain HPI - General Source: EMS, RN notes reviewed, old records reviewed Limitations: no limitations <Alee Corey - Last Filed: 02/20/20 02:38> <Jovani Oakes - Last Filed: 02/20/20 07:48> - General Chief Complaint: Abdominal Pain Stated Complaint: kidney stone Time Seen by Provider: 02/20/20 01:07 - History of Present Illness Initial Comments: patient is a 29-year-old female transferred from the [facility] for concerns of right lower quadrant pain for the past week. She was diagnosed with a 1 cm right-sided UVJ stone. Patient reports that the pain has been worsening. She reports that she's been able to tolerate by mouth food and fluids and complains of significant nausea. (Alee Corey) - Related Data Home Medications Medication Instructions Recorded Confirmed Pravastatin Sodium [Pravachol] 20 mg PO HS 01/20/18 02/20/20 LORazepam [Ativan] 1 mg PO HS 11/24/18 02/20/20 buPROPion HCL [Wellbutrin XL] 300 mg PO DAILY 12/15/19 02/20/20 traZODone HCL 50 mg PO HS 12/15/19 02/20/20 ARIPiprazole 20 mg PO HS 01/09/20 02/20/20 ARIPiprazole [Abilify] 5 mg PO DAILY 01/09/20 02/20/20 Norethindrone-E.estradiol-Iron 1 tab PO HS 01/09/20 02/20/20 [Microgestin Fe 1-20 Tablet] Topiramate 50 mg PO HS 01/09/20 02/20/20 acetaZOLAMIDE [Diamox] 250 mg PO BID 01/09/20 02/20/20 busPIRone HCL 15 mg PO TID 01/09/20 02/20/20 metFORMIN HCL 500 mg PO BID 01/09/20 02/20/20 Amitriptyline HCl [Elavil] 75 mg PO BID 01/24/20 02/20/20 Verapamil HCl [Verapamil ER] 180 mg PO HS 01/24/20 02/20/20 Gabapentin 600 mg PO TID 02/20/20 02/20/20 Ondansetron [Zofran ODT] 4 mg PO Q8HR PRN 02/20/20 02/20/20 hydroCHLOROthiazide 25 mg PO DAILY 02/20/20 02/20/20 Previous Rx's Medication Instructions Recorded Cephalexin [Keflex] 500 mg PO Q6HR #40 cap 02/11/20 Allergies Allergy/AdvReac Type Severity Reaction Status Date / Time NSAIDS (Non-Steroidal AdvReac Unknown Verified 02/20/20 00:51 Anti-Inflamma Review of Systems ROS Other: All systems not noted in ROS Statement are negative. <Alee Corey - Last Filed: 02/20/20 02:38> ROS Other: All systems not noted in ROS Statement are negative. <Jovani Oakes - Last Filed: 02/20/20 07:48> ROS Statement: Those systems with pertinent positive or pertinent negative responses have been documented in the HPI. Past Medical History Past Medical History: Diabetes Mellitus, Fibromyalgia, GERD/Reflux, GI Bleed, Hyperlipidemia Additional Past Medical History / Comment(s): gallstones, kidney stones, IBS, migraines, tachycardia, Martine- Guevara tear, History of Any Multi-Drug Resistant Organisms: None Reported Past Surgical History: Section, Cholecystectomy, Tubal Ligation Additional Past Surgical History / Comment(s): neck biopsy (lymph node ) d&c; LP shunt May 13 2019 feb 0211/2019 -revision Past Anesthesia/Blood Transfusion Reactions: No Reported Reaction Past Psychological History: Anxiety, Bipolar, Depression, PTSD Smoking Status: Never smoker Past Alcohol Use History: None Reported Past Drug Use History: Marijuana - Past Family History Mother Family Medical History: Diabetes Mellitus, Hyperlipidemia, Hypertension, Myocardial Infarction (MS) Additional Family Medical History / Comment(s): MS X 3 Father Family Medical History: Congestive Heart Failure (CHF), Hyperlipidemia, Hypertension, Myocardial Infarction (MS) Additional Family Medical History / Comment(s): mi x 3 Son(s) Family Medical History: No Reported History <Alee Corey - Last Filed: 02/20/20 02:38> General Exam Limitations: no limitations General appearance: alert, in no apparent distress Head exam: Present: atraumatic, normocephalic, normal inspection Eye exam: Present: normal appearance, PERRL, EOMI. Absent: scleral icterus, conjunctival injection, periorbital swelling ENT exam: Present: normal exam, mucous membranes moist Neck exam: Present: normal inspection Respiratory exam: Present: normal lung sounds bilaterally. Absent: respiratory distress, wheezes, rales, rhonchi, stridor Cardiovascular Exam: Present: regular rate, normal rhythm, normal heart sounds. Absent: systolic murmur, diastolic murmur, rubs, gallop, clicks GI/Abdominal exam: Present: soft, tenderness (RLQ), normal bowel sounds. Absent: distended, guarding, rebound, rigid Extremities exam: Present: normal inspection, full ROM, normal capillary refill. Absent: tenderness, pedal edema, joint swelling, calf tenderness Back exam: Present: normal inspection Neurological exam: Present: alert, oriented X3, CN II-XII intact Psychiatric exam: Present: normal affect, normal mood Skin exam: Present: warm, dry, intact, normal color. Absent: rash <Alee Corey - Last Filed: 02/20/20 02:38> - General Exam Comments Initial Comments: 29-year-old female. Alert and oriented. (Alee Corey) Course Vital Signs 02/20/20 00:48 Temperature 99.2 F Pulse Rate 100 Respiratory 18 Rate Blood Pressure 145/85 O2 Sat by Pulse 98 Oximetry Medical Decision Making - Radiology Data Radiology results: report reviewed <Alee Corey - Last Filed: 02/20/20 02:38> <Jovani Oakes - Last Filed: 02/20/20 07:48> - Medical Decision Making 29-year-old female transferred from [facility] for one week of right lower quadrant abdominal pain. She's been diagnosed with a kidney stone and initial ER visit and [facility]. She into [facility] today for persistent pain and nausea. Patient was given IV fluids. She has a 1 cm right UPJ stone. Patient's urinalysis has been sent infection. The kidney function is preserved. Patient has no fever. With one week of persistent pain and symptoms patient's case was discussed with Dr. Barnhart who accepted the transfer. Pt will be admitted to medicine with consult to Dr. Mccloud. (Alee Corey) I saw this patient in conjunction with the physician registered dental assistant. I performed independent history and physical exam. Agree with case management. (Jovani Oakes) - Lab Data urinalysis from the hospital was negative for blood or infection. White blood cell, 10.1. Her RBC is 5.08. Hemoglobin of 11.7. Had a crit of 39.5. Platelets 384. Sodium 139 potassium 3.9. Chloride 106. CO2 24. Glucose 111. BUN 14 creatinine 0.9. AST 38. CK 55. Alk phos 96. Total bili 0.4. Calcium 8.4. (Alee Corey) - Radiology Data cT report she's obstructing calculus at the right UPJ and right-sided hydronephrosis. Obstruction. She appeared old exam. Calculus is new compared old exam. Peritoneal spinal catheter noted with reservoir and subcutaneous tissue. The calcification is 1 cm (Alee Corey) Disposition Is patient prescribed a controlled substance at d/c from ED?: No Time of Disposition: 02:39 <Alee Corey - Last Filed: 02/20/20 02:38> <Jovani Oakes - Last Filed: 02/20/20 07:48> Clinical Impression: Ureteral calculus, right Disposition: HOME SELF-CARE Condition: Good
[2020-02-20] MEDS ORDERED: MAG HYDROX/AL HYDROX/SIMETH 30 ML CUP PO STA (02:27)
[2020-02-20] MEDS ORDERED: ACETAMINOPHEN TAB 325 MG TAB PO PRN (02:41)
[2020-02-20] MEDS ORDERED: NALOXONE 0.4 MG/ML 1 ML VIAL IV PRN (02:41)
[2020-02-20] MEDS ORDERED: IBUPROFEN 400 MG TAB PO PRN (02:41)
[2020-02-20] MEDS: SODIUM CHLORIDE 0.9% 1,000 ML IV SCH ×3 (03:00→22:47)
[2020-02-20] MEDS: HYDROmorphone 1 MG/ML 1 ML SYRINGE IVP PRN ×6 (04:52→22:46)
[2020-02-20 07:25] LABS: Glucose,Whole Blood 87 mg/dL (75-99)
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
[2020-02-20 11:49] LABS: Glucose,Whole Blood 87 mg/dL (75-99)
[2020-02-20 11:57] LABS: Hemoglobin A1C 5.9 % (4.0-6.0)
[2020-02-20 13:14] VITALS: BMI 52.1
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
[2020-02-20] MEDS: GABAPENTIN 300 MG CAP PO SCH ×2 (16:08→21:25)
[2020-02-20] MEDS ORDERED: CALCIUM CARBONATE 500 MG CHEWABLE PO PRN (17:09)
[2020-02-20] MEDS: PANTOPRAZOLE 40 MG/10 ML VIAL IVP SCH (17:26)
[2020-02-20 17:41] LABS: Glucose,Whole Blood 114 mg/dL (75-99)
[2020-02-20] MEDS: metFORMIN 500 MG TAB PO SCH (19:35)
[2020-02-20] MEDS: acetaZOLAMIDE 250 MG TAB PO SCH (19:36)
[2020-02-20] MEDS ORDERED: HYDROmorphone 0.5 MG/0.5 ML SYRINGE IVP PRN (19:40)
[2020-02-20] MEDS: ONDANSETRON 4 MG/2 ML VIAL IVP PRN (19:58)
[2020-02-20 20:04] LABS: Glucose,Whole Blood 104 mg/dL (75-99)
[2020-02-20] MEDS ORDERED: VERAPAMIL SR 180 MG TABLET.ER PO SCH (21:00)
[2020-02-20] MEDS ORDERED: traZODone HCL 50 MG TAB PO SCH (21:00)
[2020-02-20] MEDS ORDERED: PRAVASTATIN SODIUM 20 MG TAB PO SCH (21:00)
[2020-02-20] MEDS ORDERED: TOPIRAMATE 25 MG TAB PO SCH (21:00)
[2020-02-20] MEDS: FAMOTIDINE 20 MG TAB PO SCH (21:25)
[2020-02-20] MEDS: AMITRIPTYLINE HCL 25 MG TAB PO SCH (21:25)
[2020-02-21] MEDS: HYDROmorphone 1 MG/ML 1 ML SYRINGE IVP PRN ×4 (02:36→15:41)
[2020-02-21 05:10] LABS: Anisocytosis Slight; HCT 35.5 % (34.0-46.0); Hypochromasia Marked; MCH 24.5 pg (25.0-35.0); Mean Platelet Volume 6.9; Microcytosis Slight; Platelet Count 283 k/uL (150-450); RDW 16.4 % (11.5-15.5); WBC 7.1 k/uL (3.8-10.6)
[2020-02-21 07:18] LABS: Glucose,Whole Blood 90 mg/dL (75-99)
[2020-02-21] MEDS: metFORMIN 500 MG TAB PO SCH (08:02)
[2020-02-21] MEDS: GABAPENTIN 300 MG CAP PO SCH ×2 (08:07→15:40)
[2020-02-21] MEDS: FAMOTIDINE 20 MG TAB PO SCH (08:07)
[2020-02-21] MEDS: AMITRIPTYLINE HCL 25 MG TAB PO SCH (08:08)
[2020-02-21] MEDS: acetaZOLAMIDE 250 MG TAB PO SCH (08:08)
[2020-02-21] MEDS: SODIUM CHLORIDE 0.9% 1,000 ML IV SCH (08:27)
[2020-02-21] MEDS: PANTOPRAZOLE 40 MG/10 ML VIAL IVP SCH (08:28)
[2020-02-21] MEDS ORDERED: ARIPiprazole 5 MG TAB PO SCH (09:00)
[2020-02-21] MEDS ORDERED: FOLIC ACID 1 MG TAB PO SCH (09:00)
[2020-02-21] MEDS ORDERED: ENOXAPARIN 40 MG/0.4 ML SYRINGE SQ SCH (09:00)
[2020-02-21] MEDS ORDERED: buPROPion XL 300 MG TAB.ER.24H PO SCH (09:00)
--- NOTE | 2020-02-21 11:09 | P.DS ---
Providers Date of admission: 02/20/20 02:32 Attending physician: Matt Mccullough Consults: 02/20/20 02:41 Consult Physician Stat Consulting Provider: Dre Mccloud Consult Reason/Comments: right ureteral stone Do you want consulting provider notified?: Already Contacted Primary care physician: Olvin [facility] Course: 29-year-old female was admitted secondary to right-sided nephrolithiasis 10 mm stone patient will undergo cystoscopy possible J-tube placement and lithotripsy.. If cleared by urology patient probably can be discharged today patient already have Tylenol 3 and the an assays at home for pain. Patient doesn't have any evidence of urinary tract infection at this time I do not believe patient will require antibiotics. Although decision regarding antibiotics will be left to urology. PHYSICAL EXAMINATION: GENERAL: The patient is alert and oriented x3, not in any acute distress. Obese HEENT: Pupils are round and equally reacting to light. EOMI. No scleral icterus. No conjunctival pallor. Normocephalic, atraumatic. No pharyngeal erythema. No thyromegaly. CARDIOVASCULAR: S1 and S2 present. No murmurs, rubs, or gallops. PULMONARY: Chest is clear to auscultation, no wheezing or crackles. ABDOMEN: Soft, nontender, nondistended, normoactive bowel sounds. No palpable organomegaly. MUSCULOSKELETAL: No joint swelling or deformity. EXTREMITIES: No cyanosis, clubbing, or pedal edema. NEUROLOGICAL: Gross neurological examination did not reveal any focal deficits. SKIN: No rashes. Assessment and Plan Plan: -2severe symptomatic right-sided nephrolithiasis: Surgical intervention as mentioned above today -Type 2 diabetes mellitus Heparin gastroesophageal reflux disease -Hypertension -History of sinus tachycardia: For which patient is on verapamil which will be continued. -Fibromyalgia - Patient Condition at Discharge: Good Plan - Discharge Summary New Discharge Prescriptions: Continue Pravastatin Sodium [Pravachol] 20 mg PO HS LORazepam [Ativan] 1 mg PO HS traZODone HCL 50 mg PO HS buPROPion HCL [Wellbutrin XL] 300 mg PO DAILY metFORMIN HCL 500 mg PO BID Topiramate 50 mg PO HS busPIRone HCL 15 mg PO TID PRN PRN Reason: Anxiety ARIPiprazole [Abilify] 5 mg PO DAILY acetaZOLAMIDE [Diamox] 250 mg PO BID ARIPiprazole 20 mg PO HS Verapamil HCl [Verapamil ER] 180 mg PO HS Amitriptyline HCl [Elavil] 75 mg PO BID Gabapentin 600 mg PO TID hydroCHLOROthiazide 25 mg PO DAILY Ondansetron [Zofran ODT] 4 mg PO Q8HR PRN PRN Reason: nausea Dawson Fe 05/17 1 tab PO DAILY Folic Acid 1 mg PO DAILY Hydrocodone/Acetaminophen [Hydrocodone/Acetaminophen 10-300 mg] 1 tab PO Q4HR PRN PRN Reason: Pain Etonogestrel [Nexplanon] 68 mg SQ ONCE Discontinued Cephalexin [Keflex] 500 mg PO Q6HR #40 cap Discharge Medication List Pravastatin Sodium [Pravachol] 20 mg PO HS 01/20/18 [History] LORazepam [Ativan] 1 mg PO HS 11/24/18 [History] buPROPion HCL [Wellbutrin XL] 300 mg PO DAILY 12/15/19 [History] traZODone HCL 50 mg PO HS 12/15/19 [History] ARIPiprazole 20 mg PO HS 01/09/20 [History] ARIPiprazole [Abilify] 5 mg PO DAILY 01/09/20 [History] Topiramate 50 mg PO HS 01/09/20 [History] acetaZOLAMIDE [Diamox] 250 mg PO BID 01/09/20 [History] busPIRone HCL 15 mg PO TID PRN 01/09/20 [History] metFORMIN HCL 500 mg PO BID 01/09/20 [History] Amitriptyline HCl [Elavil] 75 mg PO BID 01/24/20 [History] Verapamil HCl [Verapamil ER] 180 mg PO HS 01/24/20 [History] Etonogestrel [Nexplanon] 68 mg SQ ONCE 02/20/20 [History] Folic Acid 1 mg PO DAILY 02/20/20 [History] Gabapentin 600 mg PO TID 02/20/20 [History] Hydrocodone/Acetaminophen [Hydrocodone/Acetaminophen 10-300 mg] 1 tab PO Q4HR PRN 02/20/20 [History] Dawson Fe 05/17 1 tab PO DAILY 02/20/20 [History] Ondansetron [Zofran ODT] 4 mg PO Q8HR PRN 02/20/20 [History] hydroCHLOROthiazide 25 mg PO DAILY 02/20/20 [History] Follow up Appointment(s)/Referral(s): Olvin Keenan MD [Primary Care Provider] - 3 Days Dre Mccloud MD [STAFF PHYSICIAN] - 1 Week Patient Instructions/Handouts: Abdominal Pain (ED) Discharge Disposition: HOME SELF-CARE
[2020-02-21] MEDS ORDERED: IV FLUID CONTINUATION 800 ML IV ONE ×2 (11:20)
[2020-02-21 11:38] LABS: Glucose,Whole Blood 78 mg/dL (75-99)
[2020-02-21] MEDS: ONDANSETRON 4 MG/2 ML VIAL IVP PRN (11:41)
[2020-02-21] MEDS ORDERED: GENTAMICIN 40 MG/ML 2 ML VIAL ONE (12:25)
[2020-02-21] MEDS ORDERED: SUCCINYLCHOLINE CHLORIDE 100 MG/5 ML SYR IV ONE (12:25)
[2020-02-21] MEDS ORDERED: LIDOCAINE 1% INJ 10MG/ML (20 ML MDV) ONE (12:25)
[2020-02-21] MEDS ORDERED: PROPOFOL 10 MG/ML 20 ML VIAL IV ONE (12:25)
[2020-02-21] MEDS ORDERED: MIDAZOLAM 2 MG/2 ML VIAL ONE (12:25)
[2020-02-21] MEDS ORDERED: fentaNYL (PF) 50 MCG/ML 2 ML AMP ONE (12:25)
[2020-02-21] MEDS ORDERED: IOPAMIDOL-370 50ML BTL INJ ONE (13:26)
[2020-02-21] MEDS ORDERED: LACTATED RINGERS 1,000 ML IV ONE (14:01)
[2020-02-21 14:08] VITALS: TEMP 98.9
--- NOTE | 2020-02-21 14:11 | P.PN ---
Subjective Progress Note Date: 02/21/20 No acute overnight event, still having right sided flank pain Objective - Vital Signs Vital signs: Vital Signs Temp 97.6 F 02/21/20 11:21 Pulse 98 02/21/20 11:21 Resp 18 02/21/20 05:00 BP 138/64 02/21/20 11:21 Pulse Ox 98 02/21/20 11:21 Intake & Output 02/20/20 02/21/20 02/21/20 18:59 06:59 18:59 Intake Total 260 1200 1650 Output Total 5 Balance 260 1200 1645 Weight 129.274 kg Intake: IV 1000 Intake, IV Titration 1200 650 Amount Sodium Chloride 0.9% 1, 1200 600 000 ml @ 100 mls/hr IV . Q10H [facility] Rx#:[id number] cefTRIAXone 2 gm In 50 Sodium Chloride 0.9% 50 ml @ 100 mls/hr IVPB Q24HR [facility] Rx#:[id number] Oral 260 Output: Estimated Blood Loss 5 Other: Voiding Method Toilet Toilet Bedside Commode # Voids 1 2 2 - Constitutional General appearance: Present: mild distress, morbidly obese - EENT ENT: Present: hearing grossly normal - Psychiatric Psychiatric: Present: A&O x's 3 - Labs CBC & Chem 7: 02/21/20 04:50 Labs: Abnormal Lab Results - Last 24 Hours (Table) 02/20/20 02/20/20 02/21/20 Range/Units 17:38 20:03 04:50 Hgb 11.0 L (11.4-16.0) gm/dL MCV 79.0 L (80.0-100.0) fL MCH 24.5 L (25.0-35.0) pg RDW 16.4 H (11.5-15.5) % POC Glucose (mg/dL) 114 H 104 H (75-99) mg/dL Assessment and Plan Assessment: 29-year-old female with 1.1 cm right-sided ureteral stone, at the UPJ. She is symptomatically from her stone. Discussed with her given her symptoms we will proceed with right-sided ureteroscopy, with holmium laser. I discussed with her the stone has been present at least since December, and if it is impacted then we can only proceed with stent placement. Discussed with her the risk and the benefit of surgery. She understood all the risks Plan: -OR for right sided ureteroscopy, with holmium laser lithotripsy and stent placement
[2020-02-21 14:17] LABS: African American GFR (CKD) 134.7 (60.0-200.0); Anion Gap 6.5 mmol/L (4.00-12.00); BUN/Creat Ratio 14.29 Ratio (12.00-20.00); Carbon Dioxide 23.5 mmol/L (21.6-31.8); Non-African American GFR(CKD) 116.3 (60.0-200.0); Potassium 4.6 mmol/L (3.5-5.5)
[2020-02-21 14:18] VITALS: RESP 16
--- NOTE | 2020-02-21 14:21 | P.OP ---
Date of Procedure: 02/21/20 Preoperative Diagnosis: right ureteral calculi Postoperative Diagnosis: Same Procedure(s) Performed: Cystoscopy, right ureteroscopy, retrograde pyelogram, holmium laser lithotripsy, stone basketing, and stent placement Implants: 6-[place] by 24 cm stent Anesthesia: HOMERO Surgeon: Dre Mccloud Estimated Blood Loss (ml): 5 Pathology: other (Right ureteral calculi) Condition: stable Disposition: PACU Indications for Procedure: 29-year-old female with 1.1 cm right-sided ureteral stone, at the UPJ. She is symptomatically from her stone. Discussed with her given her symptoms we will proceed with right-sided ureteroscopy, with holmium laser. I discussed with her the stone has been present at least since october and if it is impacted then we can only proceed with stent placement. Discussed with her the risk and the benefit of surgery. She understood all the risk Operative Findings: impacted stone at the UPJ, with significant ureteral edema Description of Procedure: Patient was brought to the operating room, general anesthesia was induced. She was prepped and draped in sterile fashion a placed in dorsal lithotomy position. Cystoscopy fitted with 21-[place] sheath was inserted per urethra. Cystoscopy was performed which showed no abnormality within the bladder. Attention was then carried to the right ureteral orifice was intubated with a 6- [place] open-ended catheter, retrograde pyelogram was performed which showed no filling defect along the course of the mid and distal ureter. But of note there was a filling defect at the proximal ureter with minimal contrast seen past the stone. At this time I attempted to pass a wire through the ureteral catheter but resistance was met at the stone. at this time the catheter was removed and a semirigid ureteroscope was inserted. This was advanced all the way up to the UPJ. Where the stone was encountered. At this time I attempted to pass a wire past the stone but the stone was completely impacted. At this time using the holmium laser I gently started to fragment the stone. Eventually a plane could be seen and a and a wire was advanced past the stone into the collecting system. At this time I continued to laser the stone. Some the larger fragments were removed and sent to pathology. I continued to laser until no sizable fragments remained. Of note there was significant ureteral edema and scarring at the site of the stone impaction. At this time the ureteroscope was removed and a 11 x 13-[place] access sheath was passed over into the mid ureter. Next a flexible ureteroscope was inserted I was able advance it past to the area of impaction, but of note it was fairly narrowed. Renoscopy was performed which showed no stones within the kidney. Pullback ureteroscopy was performed showed no sizable ureteral fragments or ureteral injury. But of note the site of impaction and edema was visualized. Next a cysotscope was inserted, and a sensor wire was advanced through the scope into the right kidney. Next a ureteral stent was passed over the wire, the proximal closure was on fluoroscopy the scrotum was visualized using cystoscope. The bladder was emptied at the end of case. The patient thought the procedure well was taken to PACU in stable condition
--- NOTE | 2020-02-21 14:30 | FL ---
Fluoroscopy HISTORY: Stent placement 52 seconds fluoroscopy time supplied to the referring clinician. 1 intraoperative C-arm images docum ent the procedure. See dictated report from urology.
[2020-02-21 14:32] VITALS: BP 143/75; PULSE 104
[2020-02-21 17:16] LABS: Glucose,Whole Blood 115 mg/dL (75-99)
== END 2020-02-21 20:30 | disposition home or self-care (01) ==
LOC: EC 00:44 → 6NMEDSUR 02:32 → INTOOBSV 02:32 → UNDODISIN 02-21 20:30
PROVIDERS: ADMIT Hospitalist; ATTEND Hospitalist
DX: N13.2 Hydronephrosis with renal and ureteral calculous obstruction (principal); Z68.43 Body mass index [BMI] 50.0-59.9, adult; M79.7 Fibromyalgia; E78.5 Hyperlipidemia, unspecified; E11.9 Type 2 diabetes mellitus without complications; F60.9 Personality disorder, unspecified; F43.10 Post-traumatic stress disorder, unspecified; I10 Essential (primary) hypertension; K21.9 Gastro-esophageal reflux disease without esophagitis; F31.9 Bipolar disorder, unspecified; Z98.891 History of uterine scar from previous surgery; Z90.49 Acquired absence of other specified parts of digestive tract; Z79.84 Long term (current) use of oral hypoglycemic drugs; Z79.899 Other long term (current) drug therapy; Z88.6 Allergy status to analgesic agent; Z98.51 Tubal ligation status; Z98.890 Other specified postprocedural states; Z87.442 Personal history of urinary calculi; Z83.3 Family history of diabetes mellitus; Z82.49 Family history of ischemic heart disease and other diseases of the circulatory system; Z83.438 Family history of other disorder of lipoprotein metabolism and other lipidemia; Z98.2 Presence of cerebrospinal fluid drainage device; E66.01 Morbid (severe) obesity due to excess calories
CPT/HCPCS: 96376 ×2; 96375 ×2; 96374; 99284; 99285; 97161; 97165; 81025; 80048; 85027; 84703; 82365; 83036; 74420; 52356; G0378 ×2; C2625; C1758; C1769; J2250; J1580; J2405 ×2; J0696 ×2; J2001; J1650; J3010; J1170 ×2; J0330; J2704; C9113 ×2; Q9967

== ENCOUNTER 2020-02-26 23:17 | Observation (INO) | payer OTHER ==
[2020-02-26] MEDS ORDERED: MORPHINE SULFATE 4 MG/ML SYRINGE IV STA (23:48)
[2020-02-27] LABS: Appearance,Urine Cloudy (Clear); Bacteria,Urine Rare /hpf; Bilirubin,Urine Negative (Negative); Blood,Urine Moderate (Negative); Budding Yeast,Urine Occasional /hpf; Color,Urine Yellow; Glucose,Urine (UA) Negative (Negative); Hyaline Casts,Urine 1 /lpf (0-2); Ketones,Urine Negative (Negative); Leukocyte Esterase,Urine Large (Negative); Mucus,Urine Rare /hpf; Nitrite,Urine Negative (Negative); Protein,Urine 1+ (Negative); RBC,Urine >182 /hpf (0-5); Specific Gravity,Urine 1.018 (1.001-1.035); Squamous Epithelial Cell,Urine 3 /hpf (0-4); WBC,Urine 25 /hpf (0-5)
[2020-02-27] MEDS ORDERED: ONDANSETRON 4 MG/2 ML VIAL IVP STA (00:07)
[2020-02-27 00:08] LABS: Anisocytosis Slight; Basophils # (A) 0.1 k/uL (0-0.2); Basophils % (A) 1 %; Eosinophils # (A) 0.3 k/uL (0-0.7); Eosinophils % (A) 4 %; HCT 38.5 % (34.0-46.0); HGB 11.9 gm/dL (11.4-16.0); Hypochromasia Slight; Lymphocytes # (A) 2.6 k/uL (1.0-4.8); Lymphocytes % (A) 29 %; MCH 23.8 pg (25.0-35.0); MCHC 30.9 g/dL (31.0-37.0); MCV 77.1 fL (80.0-100.0); Mean Platelet Volume 7.3; Microcytosis Slight; Monocytes # (A) 0.4 k/uL (0-1.0); Monocytes % (A) 4 %; Neutrophils # (A) 5.7 k/uL (1.3-7.7); Neutrophils % (A) 62 %; Platelet Count 340 k/uL (150-450); RDW 16.5 % (11.5-15.5); WBC 9.2 k/uL (3.8-10.6)
[2020-02-27 00:19] LABS: ALT 38 U/L (4-34); AST 34 U/L (14-36); African American GFR (CKD) >90 (>60 ml/min/1.73 sqM); Albumin 3.3 g/dL (3.5-5.0); Alkaline Phosphatase 91 U/L (38-126); Amylase 45 U/L (30-110); Anion Gap 8 mmol/L; Blood Urea Nitrogen 11 mg/dL (7-17); C Reactive Protein 44.2 mg/L (<10.0); Calcium 9.3 mg/dL (8.4-10.2); Carbon Dioxide 22 mmol/L (22-30); Chloride 110 mmol/L (98-107); Glucose 96 mg/dL (74-99); Lipase 326 U/L (23-300); Non-African American GFR(CKD) >90 (>60 ml/min/1.73 sqM); Potassium 3.9 mmol/L (3.5-5.1); Sodium 140 mmol/L (137-145); Total Bilirubin 0.4 mg/dL (0.2-1.3); Total Protein 6.2 g/dL (6.3-8.2)
[2020-02-27] MEDS ORDERED: cefTRIAXone IN SWFI 1,000 MG/10 ML SYRINGE IVP STA (00:24)
[2020-02-27] MEDS ORDERED: MORPHINE SULFATE 4 MG/ML SYRINGE IV STA ×2 (00:27→01:13)
--- NOTE | 2020-02-27 02:00 | CT ---
EXAM: CT Abdomen and Pelvis Without Intravenous Contrast CLINICAL HISTORY: Left flank pain. TECHNIQUE: Axial computed tomography images of the abdomen and pelvis without intravenous contrast. CTDI is 36.184 mGy and DLP is 2029 mGy-cm. This CT exam was performed using one or more of the following dose reduction techniques: automated exposure control, adjustment of the mA and/or kV according to patient size, and/or use of iterative reconstruction technique. COMPARISON: No previous studies. FINDINGS: Lung bases: Unremarkable. No mass. No consolidation. Pleural space: No pleural effusions are noted at the lung bases. Heart: Heart is normal in size. Mediastinum: Possible distal esophagitis. ABDOMEN: Liver: Diffuse fatty infiltration of the liver is noted. The liver and the spleen are normal in contour. Gallbladder and bile ducts: Status post cholecystectomy. No ductal dilation. Pancreas: See below. Spleen: See above. Adrenals: The adrenal glands, the head, body, tail of the pancreas are within normal limits. Kidneys and ureters: Very minimal nonspecific stranding about the perinephric spaces bilaterally, right kidney slightly more so than the left kidney which requires clinical No obstructing stones. Stomach and bowel: Moderate quantity of stool throughout the colon. No obstruction. No mucosal thickening. PELVIS: Appendix: No findings to suggest acute appendicitis. Bladder: The bladder is underdistended. No stones. Reproductive: Unremarkable as visualized. ABDOMEN and PELVIS: Intraperitoneal space: Unremarkable. No free air. No significant fluid collection. Bones/joints: Mild degenerative disc disease of the thoracolumbar spine. Moderate osteoarthritic changes about the sacroiliac joints. Alignment of the thoracolumbar spine is unremarkable. No spondylolysis or spinal listhesis. The sacrum and coccyx are unremarkable. Gentle levoscoliosis of the thoracolumbar spine. No acute fracture. Soft tissues: Ischiorectal fat is clean. At the site of the catheter infection at the left lower quadrant within the subcutaneous tissues there is a 7.9 x 6.5 x 6.6 cm fluid collection of uncertain etiology. Clinical correlation is advised. Differential etiologies include abscess collection versus hematoma versus seroma. The structure appears thin- walled. Abscess collection is therefore less likely clinical correlation is necessary. Vasculature: Abdominal aorta is normal in caliber. 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 Clinical correlation is advised. Evaluation is limited due to lack of intravenous contrast. No abdominal aortic aneurysm. Lymph nodes: Unremarkable. No enlarged lymph nodes. Tubes, lines and devices: Right-sided double pigtail catheter is noted in place in good position extending to the bladder. A left lower quadrant catheter is noted in place with its tip coiled within the pelvis. IMPRESSION: 1. Fatty infiltration of the liver. 2. Nonspecific stranding about the perinephric spaces bilaterally. 3. Status post cholecystectomy. 4. Right-sided double pigtail catheter is noted in place in good position. 5. Prominence and stranding about the mid to distal right ovarian vein possibly on the basis of right ovarian vein thrombosis. Clinical correlation is advised. 6. Left lower quadrant catheter. At the site of entry of the left lower quadrant catheter within the subcutaneous tissues there is a large fluid collection as discussed above of uncertain etiology. Clinical correlation is necessary.
[2020-02-27] MEDS ORDERED: MORPHINE SULFATE 4 MG/ML SYRINGE IV PRN (03:51)
[2020-02-27] MEDS ORDERED: NALOXONE 0.4 MG/ML 1 ML VIAL IV PRN (03:51)
--- NOTE | 2020-02-27 03:56 | ED ---
Abdominal Pain HPI - General Chief Complaint: Abdominal Pain Stated Complaint: Stomach/back pain Time Seen by Provider: 02/26/20 23:36 Source: patient Mode of arrival: ambulatory Limitations: no limitations - History of Present Illness Initial Comments: this patient is a 29-year-old woman who presents with the acute onset of left lower quadrant abdominal pain, that is sharp and severe. She states that she had just been in and had a double-J ureteral stent placed for a right-sided kidney stone, and then gone home. She had about 1 day of feeling well and then felt very sharp left lower quadrant pain. She states that she also had some nausea. She denies hematemesis. No change in bowel movements. MD Complaint: abdominal pain -: hour(s) Location: LLQ Radiation: none Migration to: no migration Severity: severe Quality: sharp Consistency: constant Improves With: nothing Worsens With: nothing Associated Symptoms: nausea - Related Data Home Medications Medication Instructions Recorded Confirmed Pravastatin Sodium [Pravachol] 20 mg PO HS 01/20/18 02/27/20 LORazepam [Ativan] 1 mg PO HS 11/24/18 02/27/20 buPROPion HCL [Wellbutrin XL] 300 mg PO DAILY 12/15/19 02/27/20 traZODone HCL 50 mg PO HS 12/15/19 02/27/20 ARIPiprazole 20 mg PO HS 01/09/20 02/27/20 ARIPiprazole [Abilify] 5 mg PO DAILY 01/09/20 02/27/20 Topiramate 50 mg PO HS 01/09/20 02/27/20 acetaZOLAMIDE [Diamox] 250 mg PO BID 01/09/20 02/27/20 busPIRone HCL 15 mg PO TID PRN 01/09/20 02/27/20 metFORMIN HCL 500 mg PO BID 01/09/20 02/27/20 Amitriptyline HCl [Elavil] 75 mg PO BID 01/24/20 02/27/20 Verapamil HCl [Verapamil ER] 180 mg PO HS 01/24/20 02/27/20 Etonogestrel [Nexplanon] 68 mg SQ ONCE 02/20/20 02/27/20 Folic Acid 1 mg PO HS 02/20/20 02/27/20 Gabapentin 600 mg PO TID 02/20/20 02/27/20 Hydrocodone/Acetaminophen 1 tab PO Q4HR PRN 02/20/20 02/27/20 [Hydrocodone/Acetaminophen 10-300 mg] Dawson Fe 05/17 1 tab PO DAILY 02/20/20 02/27/20 Ondansetron [Zofran ODT] 4 mg PO Q8HR PRN 02/20/20 02/27/20 hydroCHLOROthiazide 25 mg PO DAILY 02/20/20 02/27/20 OXcarbazepine [Oxtellar Xr] 150 mg PO HS 02/27/20 02/27/20 Previous Rx's Medication Instructions Recorded Tamsulosin [Flomax] 0.4 mg PO DAILY #10 cap 02/21/20 Allergies Allergy/AdvReac Type Severity Reaction Status Date / Time NSAIDS (Non-Steroidal AdvReac Unknown Verified 02/27/20 06:19 Anti-Inflamma Review of Systems ROS Statement: Those systems with pertinent positive or pertinent negative responses have been documented in the HPI. ROS Other: All systems not noted in ROS Statement are negative. Constitutional: Denies: fever, chills, weakness Respiratory: Denies: cough, dyspnea Cardiovascular: Denies: chest pain, palpitations Gastrointestinal: Reports: abdominal pain. Denies: nausea, vomiting, diarrhea, constipation Genitourinary: Denies: dysuria, hematuria Musculoskeletal: Denies: back pain Skin: Denies: rash Neurological: Denies: headache, weakness, numbness Past Medical History Past Medical History: Diabetes Mellitus, Fibromyalgia, GERD/Reflux, GI Bleed, Hyperlipidemia Additional Past Medical History / Comment(s): gallstones, kidney stones, IBS, migraines, tachycardia, Martine- Guevara tear, History of Any Multi-Drug Resistant Organisms: None Reported Past Surgical History: Section, Cholecystectomy, Tubal Ligation Additional Past Surgical History / Comment(s): neck biopsy (lymph node ) d&c; LP shunt May 13 2019 feb 0211/2019 -revision, stent/ lithotripsy on left, cystoscopy, Past Anesthesia/Blood Transfusion Reactions: No Reported Reaction Past Psychological History: Anxiety, Bipolar, Depression, PTSD Smoking Status: Never smoker Past Alcohol Use History: None Reported Past Drug Use History: Marijuana - Past Family History Mother Family Medical History: Diabetes Mellitus, Hyperlipidemia, Hypertension, Myocardial Infarction ([place]) Additional Family Medical History / Comment(s): [place] X 3 Father Family Medical History: Congestive Heart Failure (CHF), Hyperlipidemia, Hypertension, Myocardial Infarction ([place]) Additional Family Medical History / Comment(s): mi x 3 Son(s) Family Medical History: No Reported History General Exam Limitations: no limitations General appearance: alert Head exam: Present: atraumatic, normocephalic Eye exam: Present: normal appearance. Absent: scleral icterus, conjunctival injection ENT exam: Present: normal oropharynx Neck exam: Present: normal inspection, full ROM Respiratory exam: Present: normal lung sounds bilaterally. Absent: respiratory distress, wheezes, rales, rhonchi, stridor Cardiovascular Exam: Present: regular rate, normal rhythm, normal heart sounds. Absent: systolic murmur, diastolic murmur, rubs, gallop GI/Abdominal exam: Present: soft, tenderness (mild left lower quadrant tenderness), normal bowel sounds. Absent: distended, guarding, rebound, rigid, pulsatile mass, hernia Extremities exam: Present: normal inspection, normal capillary refill. Absent: pedal edema, calf tenderness Back exam: Present: normal inspection. Absent: CVA tenderness (R), CVA tenderness (L) Neurological exam: Present: alert Skin exam: Present: warm, dry, intact, normal color. Absent: rash Course Vital Signs 02/26/20 02/27/20 02/27/20 23:21 01:17 EST 03:30 Temperature 98.7 F 98.0 F Pulse Rate 114 H 125 H 98 Respiratory 20 18 18 Rate Blood Pressure 135/82 99/61 111/54 O2 Sat by Pulse 97 97 98 Oximetry 02/27/20 04:20 Temperature 98.4 F Pulse Rate 99 Respiratory 16 Rate Blood Pressure 123/64 O2 Sat by Pulse 97 Oximetry Medical Decision Making - Medical Decision Making this patient is a 29-year-old woman with acute onset of sharp left lower quadrant abdominal pain. I given that she had recent imaging did attempt to treat patient with analgesics, check laboratories and hold imaging, but she states she is not having any improvement with the medication and therefore the patient sent for computed tomography scan There was questionable a right ovarianvein thrombosis, but this is not consistent with patient's symptoms. The patient does have fluid collection around her pain management catheter and suspect that this is not acutely infected as there is no fever, erythema or warmth, but patient will be admitted for surgical consultation. The patient does have some white cells in urine, will be treated for possible urinary tract infection. Urology will be informed of patient's return. - Lab Data Result diagrams: 02/27/20 00:02 02/27/20 00:02 Lab Results 02/26/20 02/26/20 02/27/20 Range/Units 23:45 23:45 00:02 WBC 9.2 (3.8-10.6) k/uL RBC 5.00 (3.80-5.40) m/uL Hgb 11.9 (11.4-16.0) gm/dL Hct 38.5 (34.0-46.0) % MCV 77.1 L (80.0-100.0) fL MCH 23.8 L (25.0-35.0) pg MCHC 30.9 L (31.0-37.0) g/dL RDW 16.5 H (11.5-15.5) % Plt Count 340 (150-450) k/uL Neutrophils % 62 % Lymphocytes % 29 % Monocytes % 4 % Eosinophils % 4 % Basophils % 1 % Neutrophils # 5.7 (1.3-7.7) k/uL Lymphocytes # 2.6 (1.0-4.8) k/uL Monocytes # 0.4 (0-1.0) k/uL Eosinophils # 0.3 (0-0.7) k/uL Basophils # 0.1 (0-0.2) k/uL Hypochromasia Slight Anisocytosis Slight Microcytosis Slight Sodium (137-145) mmol/L Potassium (3.5-5.1) mmol/L Chloride (98-107) mmol/L Carbon Dioxide (22-30) mmol/L Anion Gap mmol/L BUN (7-17) mg/dL Creatinine (0.52-1.04) mg/dL Est GFR (CKD-EPI)AfAm (>60 ml/min/1.73 sqM) Est GFR (CKD-EPI)NonAf (>60 ml/min/1.73 sqM) Glucose (74-99) mg/dL Plasma Lactic Acid Darnell (0.7-2.0) mmol/L Calcium (8.4-10.2) mg/dL Total Bilirubin (0.2-1.3) mg/dL AST (14-36) U/L ALT (4-34) U/L Alkaline Phosphatase (38-126) U/L C-Reactive Protein (<10.0) mg/L Total Protein (6.3-8.2) g/dL Albumin (3.5-5.0) g/dL Amylase (30-110) U/L Lipase (23-300) U/L Urine Color Yellow Urine Appearance Cloudy H (Clear) Urine pH 7.0 (5.0-8.0) Ur Specific [place] 1.018 (1.001-1.035) Urine Protein 1+ H (Negative) Urine Glucose (UA) Negative (Negative) Urine Ketones Negative (Negative) Urine Blood Moderate H (Negative) Urine Nitrite Negative (Negative) Urine Bilirubin Negative (Negative) Urine Urobilinogen 2.0 (<2.0) mg/dL Ur Leukocyte Esterase Large H (Negative) Urine RBC >182 H (0-5) /hpf Urine WBC 25 H (0-5) /hpf Ur Squamous Epith Cells 3 (0-4) /hpf Urine Bacteria Rare H (None) /hpf Hyaline Casts 1 (0-2) /lpf Urine Mucus Rare H (None) /hpf Urine Yeast (Budding) Occasional H (None) /hpf Urine HCG, Qual Not Detected (Not Detectd) 02/27/20 02/27/20 Range/Units 00:02 00:02 WBC (3.8-10.6) k/uL RBC (3.80-5.40) m/uL Hgb (11.4-16.0) gm/dL Hct (34.0-46.0) % MCV (80.0-100.0) fL MCH (25.0-35.0) pg MCHC (31.0-37.0) g/dL RDW (11.5-15.5) % Plt Count (150-450) k/uL Neutrophils % % Lymphocytes % % Monocytes % % Eosinophils % % Basophils % % Neutrophils # (1.3-7.7) k/uL Lymphocytes # (1.0-4.8) k/uL Monocytes # (0-1.0) k/uL Eosinophils # (0-0.7) k/uL Basophils # (0-0.2) k/uL Hypochromasia Anisocytosis Microcytosis Sodium 140 (137-145) mmol/L Potassium 3.9 (3.5-5.1) mmol/L Chloride 110 H (98-107) mmol/L Carbon Dioxide 22 (22-30) mmol/L Anion Gap 8 mmol/L BUN 11 (7-17) mg/dL Creatinine 0.73 (0.52-1.04) mg/dL Est GFR (CKD-EPI)AfAm >90 (>60 ml/min/1.73 sqM) Est GFR (CKD-EPI)NonAf >90 (>60 ml/min/1.73 sqM) Glucose 96 (74-99) mg/dL Plasma Lactic Acid Darnell 1.8 (0.7-2.0) mmol/L Calcium 9.3 (8.4-10.2) mg/dL Total Bilirubin 0.4 (0.2-1.3) mg/dL AST 34 (14-36) U/L ALT 38 H (4-34) U/L Alkaline Phosphatase 91 (38-126) U/L C-Reactive Protein 44.2 H (<10.0) mg/L Total Protein 6.2 L (6.3-8.2) g/dL Albumin 3.3 L (3.5-5.0) g/dL Amylase 45 (30-110) U/L Lipase 326 H (23-300) U/L Urine Color Urine Appearance (Clear) Urine pH (5.0-8.0) Ur Specific [place] (1.001-1.035) Urine Protein (Negative) Urine Glucose (UA) (Negative) Urine Ketones (Negative) Urine Blood (Negative) Urine Nitrite (Negative) Urine Bilirubin (Negative) Urine Urobilinogen (<2.0) mg/dL Ur Leukocyte Esterase (Negative) Urine RBC (0-5) /hpf Urine WBC (0-5) /hpf Ur Squamous Epith Cells (0-4) /hpf Urine Bacteria (None) /hpf Hyaline Casts (0-2) /lpf Urine Mucus (None) /hpf Urine Yeast (Budding) (None) /hpf Urine HCG, Qual (Not Detectd) Disposition Clinical Impression: Abdominal pain, Urinary tract infection Disposition: ADMITTED IP TO THIS HOSP Condition: Fair
[2020-02-27] MEDS: SODIUM CHLORIDE 0.9% 1,000 ML IV SCH ×3 (04:32→17:42)
[2020-02-27] MEDS ORDERED: HYDROmorphone 0.5 MG/0.5 ML SYRINGE IVP PRN (06:15)
[2020-02-27] MEDS: HYDROmorphone 1 MG/ML 1 ML SYRINGE IVP PRN ×6 (06:28→22:04)
[2020-02-27] MEDS: FAMOTIDINE 20 MG TAB PO SCH ×2 (09:32→22:12)
[2020-02-27] MEDS ORDERED: busPIRone HCl 5 MG TAB PO PRN (09:43)
[2020-02-27] MEDS ORDERED: ONDANSETRON ODT 4 MG TAB PO PRN (09:43)
[2020-02-27] MEDS ORDERED: ENOXAPARIN 40 MG/0.4 ML SYRINGE SQ SCH (10:00)
[2020-02-27] MEDS ORDERED: ENOXAPARIN 120 MG/0.8 ML SYRINGE SQ SCH (11:30)
[2020-02-27] MEDS: acetaZOLAMIDE 250 MG TAB PO SCH ×2 (11:51→22:11)
[2020-02-27] MEDS: AMITRIPTYLINE HCL 25 MG TAB PO SCH ×2 (11:52→22:12)
[2020-02-27] MEDS: ARIPiprazole 5 MG TAB PO SCH (11:52)
[2020-02-27] MEDS: TAMSULOSIN 0.4 MG CAP.ER.24H PO SCH (11:53)
[2020-02-27] MEDS: buPROPion XL 300 MG TAB.ER.24H PO SCH (11:53)
[2020-02-27] MEDS: ENOXAPARIN 40 MG/0.4 ML SYRINGE SQ SCH (11:54)
[2020-02-27] MEDS: metFORMIN 500 MG TAB PO SCH ×2 (12:02→22:13)
[2020-02-27] MEDS: GABAPENTIN 300 MG CAP PO SCH ×3 (12:02→22:21)
--- NOTE | 2020-02-27 12:11 | P.OBCN ---
History of Present Illness Consult date: 02/27/20 Requesting physician: Efrain Goodman Reason for consult: other (Ovarian vein thrombosis) Chief complaint: Possible ovarian vein thrombosis History of present illness: Yeimy is a very pleasant 29-year-old female who arrives through the emergency room complaining of left lower quadrant pain. Her gynecologic history includes being a 5 para 4 with 4 sections and a tubal occlusion done at the time of her last section. She relates that the pain had started last few days and has progressed. A CAT scan was done and showed a possible right ovarian vein thrombosis. Her pain however is on the left side. CAT scan also shows a large fluid collection in her left lower abdomen and pelvis. In having a lengthy discussion with her she relates that she has had a fluid collec tion in the lower pelvis prior as she has a shunt for her pseudotumor cerebri in her lower abdomen and that this fluid collection is been present before. She relates that she recently had a adjustment to her shunt done to try and help correct this. Also last week she notes that she had a right renal stone which she underwent lithotripsy 4 and a stent was placed in the right ureter for same. She relates that she has no right lower quadrant pain at this time. Further investigating her medical history, she relates that in October she had a GI bleed and bleeding from her esophagus due to Martine Guevara tears. I did speak with Dr. Bradley about Yeimy as she is a very complicated/complex case. The traditional therapy for ovarian vein thrombosis is full anticoagulation with the risk of PE being elevated due to same. The concern from my standpoint and his is that since we are not absolute certain that she has a thrombosis we may be putting her at higher risk of complication or problem should we anticoagulate her particularly when were not certain that this is present. I have ordered a pelvic ultrasound to hopefully help delineate this. It should be noted that ultrasound is not as specific as a CAT scan with contrast or a MRI but if they are able to see a thrombosis would be beneficial. If they do not see one however, I cannot be certain that there is not one still there. If they are able to see at least flow around the ovaries we can verify that the right ovary does have blood flow. Normally with the rarity of ovarian vein thrombosis outside of recent gynecologic surgery/ I would not consider her at very high risk. However, in December she was started on a control pill to control her irregular bleeding that was believed to be caused from her nexplanon that she has in her arm. The nexplanon Has been in her upper right arm since April 2019. It is noted that her pseudotumor cerebri was diagnosed in 2018. She had a bilateral tubal ligation so if she is at risk of having continued issues with clotting if this is verified, she definitely would need to be off of the control pills and likely the nexplanon as well. 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 Simmons if this is the case to explore alternatives to control her irregular bleeding. Would recommend discontinuing the control pills for now until ovarian vein thrombosis can be fully ruled out fact that while rare, control pills due increase the risk for thrombosis and potentially ovarian vein thrombosis Thank you for this consultation, will follow along peripherally unless there are other changes that require gynecologic attention. 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 Past Medical History Past Medical History: Diabetes Mellitus, Fibromyalgia, GERD/Reflux, GI Bleed, Hyperlipidemia Additional Past Medical History / Comment(s): gallstones, kidney stones, IBS, migraines, tachycardia, Martine- Guevara tear, History of Any Multi-Drug Resistant Organisms: None Reported Past Surgical History: Section, Cholecystectomy, Tubal Ligation Additional Past Surgical History / Comment(s): neck biopsy (lymph node ) d&c; LP shunt May 13 2019 feb 0211/2019 -revision, stent/ lithotripsy on left, cystoscopy, Past Anesthesia/Blood Transfusion Reactions: No Reported Reaction Past Psychological History: Anxiety, Bipolar, Depression, PTSD Smoking Status: Never smoker Past Alcohol Use History: None Reported Past Drug Use History: Marijuana - Past Family History Mother Family Medical History: Diabetes Mellitus, Hyperlipidemia, Hypertension, Myocardial Infarction ([place]) Additional Family Medical History / Comment(s): [place] X 3 Father Family Medical History: Congestive Heart Failure (CHF), Hyperlipidemia, Hypertension, Myocardial Infarction ([place]) Additional Family Medical History / Comment(s): mi x 3 Son(s) Family Medical History: No Reported History Medications and Allergies Home Medications Medication Instructions Recorded Confirmed Type Pravastatin Sodium [Pravachol] 20 mg PO HS 01/20/18 02/27/20 History LORazepam [Ativan] 1 mg PO HS 11/24/18 02/27/20 History buPROPion HCL [Wellbutrin XL] 300 mg PO DAILY 12/15/19 02/27/20 History traZODone HCL 50 mg PO HS 12/15/19 02/27/20 History ARIPiprazole 20 mg PO HS 01/09/20 02/27/20 History ARIPiprazole [Abilify] 5 mg PO DAILY 01/09/20 02/27/20 History Topiramate 50 mg PO HS 01/09/20 02/27/20 History acetaZOLAMIDE [Diamox] 250 mg PO BID 01/09/20 02/27/20 History busPIRone HCL 15 mg PO TID PRN 01/09/20 02/27/20 History metFORMIN HCL 500 mg PO BID 01/09/20 02/27/20 History Amitriptyline HCl [Elavil] 75 mg PO BID 01/24/20 02/27/20 History Verapamil HCl [Verapamil ER] 180 mg PO HS 01/24/20 02/27/20 History Etonogestrel [Nexplanon] 68 mg SQ ONCE 02/20/20 02/27/20 History Folic Acid 1 mg PO HS 02/20/20 02/27/20 History Gabapentin 600 mg PO TID 02/20/20 02/27/20 History Hydrocodone/Acetaminophen 1 tab PO Q4HR PRN 02/20/20 02/27/20 History [Hydrocodone/Acetaminophen 10-300 mg] Dawson Fe 05/17 1 tab PO DAILY 02/20/20 02/27/20 History Ondansetron [Zofran ODT] 4 mg PO Q8HR PRN 02/20/20 02/27/20 History hydroCHLOROthiazide 25 mg PO DAILY 02/20/20 02/27/20 History Tamsulosin [Flomax] 0.4 mg PO DAILY #10 cap 02/21/20 02/27/20 Rx OXcarbazepine [Oxtellar Xr] 150 mg PO HS 02/27/20 02/27/20 History Allergies Allergy/AdvReac Type Severity Reaction Status Date / Time NSAIDS (Non-Steroidal AdvReac Unknown Verified 02/27/20 09:52 Anti-Inflamma Exam Osteopathic Statement: *. No significant issues noted on an osteopathic structural exam other than those noted in the History and Physical/Consult. Vital Signs Temp Pulse Pulse Pulse Resp BP BP 02/27/20 09:07 97.6 F 100 16 120/78 02/27/20 05:26 98 F 117 H 20 114/76 02/27/20 04:20 98.4 F 99 16 123/64 02/27/20 03:30 98.0 F 98 18 111/54 02/27/20 01:17 EST 125 H 18 99/61 02/26/20 23:21 98.7 F 114 H 20 135/82 Pulse Ox 02/27/20 09:07 98 02/27/20 05:26 96 02/27/20 04:20 97 02/27/20 03:30 98 02/27/20 01:17 EST 97 02/26/20 23:21 97 Intake and Output 02/26/20 02/27/20 02/27/20 23:59 06:59 14:59 Output Total 125 Balance -125 Output: Urine 125 Other: Voiding Method # Voids Weight Results Result Diagrams: 02/27/20 00:02 02/27/20 00:02 Abnormal Lab Results - Last 24 Hours (Table) 02/26/20 02/27/20 02/27/20 Range/Units 23:45 00:02 00:02 MCV 77.1 L (80.0-100.0) fL MCH 23.8 L (25.0-35.0) pg MCHC 30.9 L (31.0-37.0) g/dL RDW 16.5 H (11.5-15.5) % Chloride 110 H (98-107) mmol/L ALT 38 H (4-34) U/L C-Reactive Protein 44.2 H (<10.0) mg/L Total Protein 6.2 L (6.3-8.2) g/dL Albumin 3.3 L (3.5-5.0) g/dL Lipase 326 H (23-300) U/L Urine Appearance Cloudy H (Clear) Urine Protein 1+ H (Negative) Urine Blood Moderate H (Negative) Ur Leukocyte Esterase Large H (Negative) Urine RBC >182 H (0-5) /hpf Urine WBC 25 H (0-5) /hpf Urine Bacteria Rare H (None) /hpf Urine Mucus Rare H (None) /hpf Urine Yeast (Budding) Occasional H (None) /hpf Microbiology - Last 24 Hours (Table) 02/26/20 23:45 Urine Culture - Preliminary Urine,Voided
[2020-02-27] MEDS: ONDANSETRON 4 MG/2 ML VIAL IVP PRN (13:11)
--- NOTE | 2020-02-27 13:44 | US ---
EXAMINATION TYPE: US pelvis comp w/tv w/doppler DATE OF EXAM: 02/27/2020 COMPARISON: NONE CLINICAL HISTORY: ovarian vein thrombosis. CT showed right ovarian vein thrombus, h/o stenting on the left with renal stone, , 4 c-sections, tubal ligation, 283lbs, 5'3, patients pain scale at time of exam was 10/10 TECHNIQUE: TA/TV. Transabdominal sonographic images of the pelvis were acquired. Transvaginal sono graphic images were medically necessary to better assess the following anatomy: all structures Date of LMP: unknown EXAM MEASUREMENTS: Uterus: 9.1 x 3.7 cm Endometrial Stripe: 0.5 cm Right Ovary: not seen Left Ovary: not seen habitus and bowel gas limits study 1. Uterus: Anteverted difficult to penetrate 2. Endometrium: wnl 3. Right Ovary: habitus and bowel gas obscures view of ovary 4. Left Ovary: habitus and bowel gas obscures view of ovary 5. Bilateral Adnexa: tubular structure within right adnexa that did not have blood flow may or may n ot represent thrombosed right ovarian vein 6. Posterior cul-de-sac: free fluid Iliac vessels have normal flow. Ovarian flow is not clearly identified. What may be the right ovarian vein does not have venous flow. IMPRESSION: 1. Limited pelvic ultrasound. 2. Free fluid within the pelvis. 3. Nonvisualization of the ovaries. 4. Dilated tubular structure without color-flow may be the thrombosed right ovarian vein.
--- NOTE | 2020-02-27 14:54 | P.GSCN ---
History of Present Illness Consult date: 02/27/20 Reason for Consult: Flank Pain Requesting physician: Efrain Goodman History of present illness: The patient is a 29 year old white female who underwent right ureteroscopy with laser lithotripsy to treat an 11 mm UPJ calculus on February 21, 2020. She felt well the day following the procedure, but then developed acute onset of left lower quadrant abdominal pain. She also reports right-sided pain, which she attributes to the stent. 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 Review of Systems - Constitutional Denies fever - Gastrointestinal Reports nausea, Denies vomiting - Genitourinary Genitourinary: Reports dysuria, Reports flank pain, Reports hematuria, Reports kidney stones Past Medical History Past Medical History: Diabetes Mellitus, Fibromyalgia, GERD/Reflux, GI Bleed, Hyperlipidemia Additional Past Medical History / Comment(s): gallstones, kidney stones, IBS, migraines, tachycardia, Martine- Guevara tear, History of Any Multi-Drug Resistant Organisms: None Reported Past Surgical History: Section, Cholecystectomy, Tubal Ligation Additional Past Surgical History / Comment(s): neck biopsy (lymph node ) d&c; LP shunt May 13 2019 feb 0211/2019 -revision, stent/ lithotripsy on left, cystoscopy, Past Anesthesia/Blood Transfusion Reactions: No Reported Reaction Past Psychological History: Anxiety, Bipolar, Depression, PTSD Smoking Status: Never smoker Past Alcohol Use History: None Reported Past Drug Use History: Marijuana - Past Family History Mother Family Medical History: Diabetes Mellitus, Hyperlipidemia, Hypertension, Myocardial Infarction ([place]) Additional Family Medical History / Comment(s): [place] X 3 Father Family Medical History: Congestive Heart Failure (CHF), Hyperlipidemia, Hypertension, Myocardial Infarction ([place]) Additional Family Medical History / Comment(s): [place] x 3 Son(s) Family Medical History: No Reported History Medications and Allergies Home Medications Medication Instructions Recorded Confirmed Type Pravastatin Sodium [Pravachol] 20 mg PO HS 01/20/18 02/27/20 History LORazepam [Ativan] 1 mg PO HS 11/24/18 02/27/20 History buPROPion HCL [Wellbutrin XL] 300 mg PO DAILY 12/15/19 02/27/20 History traZODone HCL 50 mg PO HS 12/15/19 02/27/20 History ARIPiprazole 20 mg PO HS 01/09/20 02/27/20 History ARIPiprazole [Abilify] 5 mg PO DAILY 01/09/20 02/27/20 History Topiramate 50 mg PO HS 01/09/20 02/27/20 History acetaZOLAMIDE [Diamox] 250 mg PO BID 01/09/20 02/27/20 History busPIRone HCL 15 mg PO TID PRN 01/09/20 02/27/20 History metFORMIN HCL 500 mg PO BID 01/09/20 02/27/20 History Amitriptyline HCl [Elavil] 75 mg PO BID 01/24/20 02/27/20 History Verapamil HCl [Verapamil ER] 180 mg PO HS 01/24/20 02/27/20 History Etonogestrel [Nexplanon] 68 mg SQ ONCE 02/20/20 02/27/20 History Folic Acid 1 mg PO HS 02/20/20 02/27/20 History Gabapentin 600 mg PO TID 02/20/20 02/27/20 History Hydrocodone/Acetaminophen 1 tab PO Q4HR PRN 02/20/20 02/27/20 History [Hydrocodone/Acetaminophen 10-300 mg] Dawson Fe 05/17 1 tab PO DAILY 02/20/20 02/27/20 History Ondansetron [Zofran ODT] 4 mg PO Q8HR PRN 02/20/20 02/27/20 History hydroCHLOROthiazide 25 mg PO DAILY 02/20/20 02/27/20 History Tamsulosin [Flomax] 0.4 mg PO DAILY #10 cap 02/21/20 02/27/20 Rx OXcarbazepine [Oxtellar Xr] 150 mg PO HS 02/27/20 02/27/20 History Allergies Allergy/AdvReac Type Severity Reaction Status Date / Time NSAIDS (Non-Steroidal AdvReac Unknown Verified 02/27/20 09:52 Anti-Inflamma Surgical - Exam Vital Signs Temp Pulse Resp BP Pulse Ox 98.7 F 114 H 20 135/82 97 02/26/20 23:21 02/26/20 23:21 02/26/20 23:21 02/26/20 23:21 02/26/20 23:21 - General well developed, well nourished, no distress - Respiratory normal respiratory effort - Abdomen Abdomen: soft, tender (Diffuse mild tenderness), no masses, no guarding, no rigid, no rebound - Psychiatric oriented to time, oriented to person, oriented to place, speech is normal, memory intact Results - Labs 02/27/20 00:02 02/27/20 00:02 Abnormal Lab Results - Last 24 Hours (Table) 02/26/20 02/27/20 02/27/20 Range/Units 23:45 00:02 00:02 MCV 77.1 L (80.0-100.0) fL MCH 23.8 L (25.0-35.0) pg MCHC 30.9 L (31.0-37.0) g/dL RDW 16.5 H (11.5-15.5) % Chloride 110 H (98-107) mmol/L ALT 38 H (4-34) U/L C-Reactive Protein 44.2 H (<10.0) mg/L Total Protein 6.2 L (6.3-8.2) g/dL Albumin 3.3 L (3.5-5.0) g/dL Lipase 326 H (23-300) U/L Urine Appearance Cloudy H (Clear) Urine Protein 1+ H (Negative) Urine Blood Moderate H (Negative) Ur Leukocyte Esterase Large H (Negative) Urine RBC >182 H (0-5) /hpf Urine WBC 25 H (0-5) /hpf Urine Bacteria Rare H (None) /hpf Urine Mucus Rare H (None) /hpf Urine Yeast (Budding) Occasional H (None) /hpf Microbiology - Last 24 Hours (Table) 02/26/20 23:45 Urine Culture - Preliminary Urine,Voided Diabetes panel 02/27/20 Range/Units 00:02 Sodium 140 (137-145) mmol/L Potassium 3.9 (3.5-5.1) mmol/L Chloride 110 H (98-107) mmol/L Carbon Dioxide 22 (22-30) mmol/L BUN 11 (7-17) mg/dL Creatinine 0.73 (0.52-1.04) mg/dL Glucose 96 (74-99) mg/dL Calcium 9.3 (8.4-10.2) mg/dL AST 34 (14-36) U/L ALT 38 H (4-34) U/L Alkaline Phosphatase 91 (38-126) U/L Total Protein 6.2 L (6.3-8.2) g/dL Albumin 3.3 L (3.5-5.0) g/dL Calcium panel 02/27/20 Range/Units 00:02 Calcium 9.3 (8.4-10.2) mg/dL Albumin 3.3 L (3.5-5.0) g/dL Pituitary panel 02/27/20 Range/Units 00:02 Sodium 140 (137-145) mmol/L Potassium 3.9 (3.5-5.1) mmol/L Chloride 110 H (98-107) mmol/L Carbon Dioxide 22 (22-30) mmol/L BUN 11 (7-17) mg/dL Creatinine 0.73 (0.52-1.04) mg/dL Glucose 96 (74-99) mg/dL Calcium 9.3 (8.4-10.2) mg/dL Adrenal panel 02/27/20 Range/Units 00:02 Sodium 140 (137-145) mmol/L Potassium 3.9 (3.5-5.1) mmol/L Chloride 110 H (98-107) mmol/L Carbon Dioxide 22 (22-30) mmol/L BUN 11 (7-17) mg/dL Creatinine 0.73 (0.52-1.04) mg/dL Glucose 96 (74-99) mg/dL Calcium 9.3 (8.4-10.2) mg/dL Total Bilirubin 0.4 (0.2-1.3) mg/dL AST 34 (14-36) U/L ALT 38 H (4-34) U/L Alkaline Phosphatase 91 (38-126) U/L Total Protein 6.2 L (6.3-8.2) g/dL Albumin 3.3 L (3.5-5.0) g/dL - Imaging CT scan - abdomen: report reviewed, image reviewed Assessment and Plan Plan: Continue antibiotics, pending the urine culture result. The patient has an appointment to see Dr. Mccloud on February 28 to undergo office cystoscopy with stent removal. She was advised to keep that appointment, but the appointment will be rescheduled if necessary depending on her discharge date.
--- NOTE | 2020-02-27 17:01 | P.GSCN ---
History of Present Illness Consult date: 02/27/20 History of present illness: CHIEF COMPLAINT: Abdominal pain HISTORY OF PRESENT ILLNESS: The patient is a 29-year-old female with pre- existing history of [employer] shunt status post revision in the last 1 months developed a fluid collection along the left lower quadrant abdominal wall. Separately she does have history of multiple urological problems including multiple kidney stones. She is status post stent placement of her right ureter. General surgery is consulted for left lower quadrant abdominal pain including fluid collection. Her revision of [employer] shunt was done at [facility] neurosurgeon. She reports the pain is Worse in the past week of the left lower quadrant. PAST MEDICAL HISTORY: See list and reviewed PAST SURGICAL HISTORY: See list and reviewed MEDICATIONS: See list and reviewed ALLERGIES: See list and reviewed SOCIAL HISTORY: See list and reviewed FAMILY HISTORY: See list and reviewed REVIEW OF ORGAN SYSTEMS: CONSTITUTIONAL: No fevers or chills. She is over 100+ pounds overweight. EYES: Denies any trouble with vision. No glasses. HEENT: No difficulties with hearing. No nosebleeds. Has difficulty swallowing. RESPIRATORY: Denies pneumonia. Denies any troubles with breathing or dyspnea on exertion. CARDIOVASCULAR: Denies any chest pain, palpitations, or recent heart attacks. GASTROINTESTINAL: History of GI bleed. Has gastroesophageal reflux disease. History of gallstones GENITOURINARY: History of kidney stone status post lithotripsy and stent placement. NEUROLOGICAL: History of [employer] shunt with revisions. Has chronic pain of fibromyalgia. Has migraines. MUSCULOSKELETAL: Has back pain, stiffness or joint arthritis. SKIN: No current skin cancer. No rash. PSYCHIATRIC: Has anxiety, depressive disorder, post rheumatic stress disorder and PTSD. Has borderline personality disorder ENDOCRINE: Denies current thyroid disorders. Denies any blood sugar glucose intolerance. HEME/LYMPHATIC: Denies any lumps and bumps around the neck. No recent deep venous thrombosis. ALLERGY/IMMUNOLOGY: No immunoglobulin therapy. No immune deficiencies. BREAST: Denies current breast lumps, pain or nipple discharge. PHYSICAL EXAM: VITALS: Reviewed CONSTITUTIONAL: Well developed and in no acute distress. EYES: Conjuctivae without sclera icterus. Extraocular movements grossly intact. HEAD, EARS, NOSE, THROAT: Moist buccal mucosa. Head is atraumatic, normocephalic. Hears conversational speech. No nasal drainage. NECK: No JV distention. No thyroidomegaly. RESPIRATORY: Non-labored respirations and equal bilateral excursions. No gross wheezes. CARDIOVASCULAR: Regular rate and rhythm. Extremities without moderate edema. Palpable 2+ radial pulses. ABDOMEN: Soft. Protuberant LYMPH: No neck lymphadenopathy. MUSCULOSKELETAL: Nail and fingers with good capillary refill. SKIN: Warm and well perfused with good skin turgor. NEUROLOGIC: Cranial nerves II through XII grossly intact. Sensation upper and extremities intact. No focal or lateralizing signs. PSYCH: Appropriate affect. Alert and oriented to person, place and time. Displays appropriate insight. CLINCAL LABS: Reviewed. WBC normal 9.2. Hemoglobin 11.9. C-reactive protein elevated 44.2. IMAGING: Independently reviewed CT of the abdomen and pelvis demonstrating stent along the right ureter. A greater than 5 cm fluid collection in the subcuta neous tissue of the left lower abdominal wall identified. RADIOLOGY: Report reviewed. CT of the abdomen and pelvis confirms 8 cm fluid collection subtenon's tissue with catheter along the subcutaneous tissue of the left chest and abdominal wall. Fatty liver infiltration identified RECORDS: previous old records reviewed including computed tomography scan from March 2019 without any evidence of fluid collection found at that time. ASSESSMENT: 1. Left lower quadrant abdominal pain with fluid collection 2. History of [employer] SAL[employer] shunt with revision and complication PLAN: 1. Review of her clinical history as well as studies, her pain is consistent with a large subcutaneous fluid collection from her recent [employer] SAL[employer] shunt revision. 2. As her FI[employer] SAL[employer] shunt is for her pseudotumor cerebri, do recommend follow up with a neurosurgeon regarding this potential complication from her FI[employer] SAL[employer] shunt revision 3. No general surgical intervention at this time 4. Diet as tolerated Thank you for this kind consultation. Past Medical History Past Medical History: Diabetes Mellitus, Fibromyalgia, GERD/Reflux, GI Bleed, Hyperlipidemia Additional Past Medical History / Comment(s): gallstones, kidney stones, IBS, migraines, tachycardia, Martine- Guevara tear, History of Any Multi-Drug Resistant Organisms: None Reported Past Surgical History: Section, Cholecystectomy, Tubal Ligation Additional Past Surgical History / Comment(s): neck biopsy (lymph node ) d&c; LP shunt May 13 2019 feb 0211/2019 -revision, stent/ lithotripsy on left, cystoscopy, Past Anesthesia/Blood Transfusion Reactions: No Reported Reaction Past Psychological History: Anxiety, Bipolar, Depression, PTSD Smoking Status: Never smoker Past Alcohol Use History: None Reported Past Drug Use History: Marijuana - Past Family History Mother Family Medical History: Diabetes Mellitus, Hyperlipidemia, Hypertension, Myoca rdial Infarction ([place]) Additional Family Medical History / Comment(s): [place] X 3 Father Family Medical History: Congestive Heart Failure (CHF), Hyperlipidemia, Hypertension, Myocardial Infarction ([place]) Additional Family Medical History / Comment(s): mi x 3 Son(s) Family Medical History: No Reported History Medications and Allergies Home Medications Medication Instructions Recorded Confirmed Type Pravastatin Sodium [Pravachol] 20 mg PO HS 01/20/18 02/27/20 History LORazepam [Ativan] 1 mg PO HS 11/24/18 02/27/20 History buPROPion HCL [Wellbutrin XL] 300 mg PO DAILY 12/15/19 02/27/20 History traZODone HCL 50 mg PO HS 12/15/19 02/27/20 History ARIPiprazole 20 mg PO HS 01/09/20 02/27/20 History ARIPiprazole [Abilify] 5 mg PO DAILY 01/09/20 02/27/20 History Topiramate 50 mg PO HS 01/09/20 02/27/20 History acetaZOLAMIDE [Diamox] 250 mg PO BID 01/09/20 02/27/20 History busPIRone HCL 15 mg PO TID PRN 01/09/20 02/27/20 History metFORMIN HCL 500 mg PO BID 01/09/20 02/27/20 History Amitriptyline HCl [Elavil] 75 mg PO BID 01/24/20 02/27/20 History Verapamil HCl [Verapamil ER] 180 mg PO HS 01/24/20 02/27/20 History Etonogestrel [Nexplanon] 68 mg SQ ONCE 02/20/20 02/27/20 History Folic Acid 1 mg PO HS 02/20/20 02/27/20 History Gabapentin 600 mg PO TID 02/20/20 02/27/20 History Hydrocodone/Acetaminophen 1 tab PO Q4HR PRN 02/20/20 02/27/20 History [Hydrocodone/Acetaminophen 10-300 mg] Dawson Fe 05/17 1 tab PO DAILY 02/20/20 02/27/20 History Ondansetron [Zofran ODT] 4 mg PO Q8HR PRN 02/20/20 02/27/20 History hydroCHLOROthiazide 25 mg PO DAILY 02/20/20 02/27/20 History Tamsulosin [Flomax] 0.4 mg PO DAILY #10 cap 02/21/20 02/27/20 Rx OXcarbazepine [Oxtellar Xr] 150 mg PO HS 02/27/20 02/27/20 History Allergies Allergy/AdvReac Type Severity Reaction Status Date / Time NSAIDS (Non-Steroidal AdvReac Unknown Verified 02/27/20 09:52 Anti-Inflamma Surgical - Exam Vital Signs Temp Pulse Resp BP Pulse Ox 98.7 F 114 H 20 135/82 97 02/26/20 23:21 02/26/20 23:21 02/26/20 23:21 02/26/20 23:21 02/26/20 23:21 Results - Labs 02/27/20 00:02 02/27/20 00:02 Abnormal Lab Results - Last 24 Hours (Table) 02/26/20 02/27/20 02/27/20 Range/Units 23:45 00:02 00:02 MCV 77.1 L (80.0-100.0) fL MCH 23.8 L (25.0-35.0) pg MCHC 30.9 L (31.0-37.0) g/dL RDW 16.5 H (11.5-15.5) % Chloride 110 H (98-107) mmol/L ALT 38 H (4-34) U/L C-Reactive Protein 44.2 H (<10.0) mg/L Total Protein 6.2 L (6.3-8.2) g/dL Albumin 3.3 L (3.5-5.0) g/dL Lipase 326 H (23-300) U/L Urine Appearance Cloudy H (Clear) Urine Protein 1+ H (Negative) Urine Blood Moderate H (Negative) Ur Leukocyte Esterase Large H (Negative) Urine RBC >182 H (0-5) /hpf Urine WBC 25 H (0-5) /hpf Urine Bacteria Rare H (None) /hpf Urine Mucus Rare H (None) /hpf Urine Yeast (Budding) Occasional H (None) /hpf Microbiology - Last 24 Hours (Table) 02/26/20 23:45 Urine Culture - Preliminary Urine,Voided Diabetes panel 02/27/20 Range/Units 00:02 Sodium 140 (137-145) mmol/L Potassium 3.9 (3.5-5.1) mmol/L Chloride 110 H (98-107) mmol/L Carbon Dioxide 22 (22-30) mmol/L BUN 11 (7-17) mg/dL Creatinine 0.73 (0.52-1.04) mg/dL Glucose 96 (74-99) mg/dL Calcium 9.3 (8.4-10.2) mg/dL AST 34 (14-36) U/L ALT 38 H (4-34) U/L Alkaline Phosphatase 91 (38-126) U/L Total Protein 6.2 L (6.3-8.2) g/dL Albumin 3.3 L (3.5-5.0) g/dL Calcium panel 02/27/20 Range/Units 00:02 Calcium 9.3 (8.4-10.2) mg/dL Albumin 3.3 L (3.5-5.0) g/dL Pituitary panel 02/27/20 Range/Units 00:02 Sodium 140 (137-145) mmol/L Potassium 3.9 (3.5-5.1) mmol/L Chloride 110 H (98-107) mmol/L Carbon Dioxide 22 (22-30) mmol/L BUN 11 (7-17) mg/dL Creatinine 0.73 (0.52-1.04) mg/dL Glucose 96 (74-99) mg/dL Calcium 9.3 (8.4-10.2) mg/dL Adrenal panel 02/27/20 Range/Units 00:02 Sodium 140 (137-145) mmol/L Potassium 3.9 (3.5-5.1) mmol/L Chloride 110 H (98-107) mmol/L Carbon Dioxide 22 (22-30) mmol/L BUN 11 (7-17) mg/dL Creatinine 0.73 (0.52-1.04) mg/dL Glucose 96 (74-99) mg/dL Calcium 9.3 (8.4-10.2) mg/dL Total Bilirubin 0.4 (0.2-1.3) mg/dL AST 34 (14-36) U/L ALT 38 H (4-34) U/L Alkaline Phosphatase 91 (38-126) U/L Total Protein 6.2 L (6.3-8.2) g/dL Albumin 3.3 L (3.5-5.0) g/dL Assessment and Plan (1) S/P [employer] shunt Current Visit: Yes Status: Acute Code(s): Z98.2 - PRESENCE OF CEREBROSPINAL FLUID DRAINAGE DEVICE SNOMED Code(s): 234028335 (2) Obstructed [employer] shunt Current Visit: Yes Status: Acute Code(s): T85.09XA - [facility] COMPL OF VENTRICULAR INTRACRANIAL SHUNT, INIT SNOMED Code(s): 999656241 (3) Abdominal pain Current Visit: Yes Status: Acute Code(s): R10.9 - UNSPECIFIED ABDOMINAL PAIN SNOMED Code(s): 36794783 (4) Ureteral calculus, right Current Visit: No Status: Acute Code(s): N20.1 - CALCULUS OF URETER SNOMED Code(s): 38312328 (5) Morbid obesity due to excess calories Current Visit: Yes Status: Acute Code(s): E66.01 - MORBID (SEVERE) OBESITY DUE TO EXCESS CALORIES SNOMED Code(s): 899118900 (6) Morbid obesity with BMI of 50.0-59.9, adult Current Visit: Yes Status: Acute Code(s): E66.01 - MORBID (SEVERE) OBESITY DUE TO EXCESS CALORIES; Z68.43 - BODY MASS INDEX [BMI] 50.0-59.9, ADULT SNOMED Code(s): 099394544
[2020-02-27 17:38] LABS: Glucose,Whole Blood 77 mg/dL (75-99)
[2020-02-27] MEDS: INSULIN ASPART (NovoLOG) 100 UNIT/ML VIAL SQ SCH (17:41)
--- NOTE | 2020-02-27 19:53 | P.HPIM ---
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 Bipolar disorder. About a week ago she was discharged to the hospital at that time she had a cystoscopy with a right ureteroscopic retrograde pyelogram lithotripsy stone basketing and a stent was placed by Dr. orellana the urologist. This was for a 1.1 cm right sided ureteral stone. At the UP junction. Patient states she still has some pain on the right side. Yesterday she developed pain in the left lower quadrant. No nausea vomiting no fever no chills. No change in appetite. No change in bowel pattern. Patient does follow with ZA Viveros at Dr. Hand office. No change in her menstrual pattern. Computed tomography scan of the abdomen did show fluid collection for Gen. surgery was consulted. Review of systems: GEN.: No fever no chills EYES: None HEENT: None NECK: None RESPIRATORY: None CARDIOVASCULAR: None GASTROINTESTINAL: None GENITOURINARY: None MUSCULOSKELETAL: Chronic joint pains LYMPHATICS: None HEMATOLOGICAL: None PSYCHIATRY: None NEUROLOGICAL: None Past medical history to include: Diabetes, fibromyalgia, GERD, hyperlipidemia, gallstones, kidney stones, irritable bowel syndrome, Martine-Guevara tear, CASH MANAGEMENT ASSOCIATE shunt, bipolar disorder, PTSD. Ureteral stent on the right site from a week ago. Social history: Patient lives with her mother and 4 children. No history of smoking or alcohol. Physical examination: VITAL SIGNS: 98.7, 114, 20, 135/82, 97% room air upon presentation GENERAL: BMI 51.8, laying in bed, not in distress. EYES: Pupils equal. Conjunctiva normal. HEENT: External appearance of nose and ears normal, oral cavity grossly normal. NECK: JVD not raised; masses not palpable. HEART: First and second heart sounds are normal; no edema. LUNGS: Respiratory rate normal; clear to auscultation. ABDOMEN: Soft, some left lower quadrant tenderness, no guarding rigidity, liver spleen not palpable, no masses palpable. PSYCH: Alert and oriented x3; mood and affect normal. NEUROLOGICAL: Cranial nerves grossly intact; no facial asymmetry, power and sensation grossly intact. LYMPHATICS: No lymph nodes palpable in the axilla and neck INVESTIGATIONS, reviewed in the clinical context: White count 9.2 hemoglobin 11.9 platelets 340 potassium 3.9 creatinine 0.73 Amylase 45 lipase 326 UA positive for leukoesterase, WBC Computed tomography scan of the abdomen pelvis without IV contrast-liver diffuse fatty infiltration, cholecystectomy findings, and the left lower quadrant is a finding of fluid collection 7.9 x 6.5 x 6.6 cm. Also this some inflammatory changes surrounding the mid to distal right ovarian vein possible. Assessment: -New onset of left lower abdominal pain with a fluid collection in the left lower quadrant. Patient does not have any fever or chills or white count. -Acute UTI with cystitis -Recent right ureter double-J stent placement for a UP junction ureteral stone -Nonalcoholic fatty liver disease -Diabetes mellitus type 2 -Chronic fibromyalgia -GERD -Hyperlipidemia -Irritable bowel syndrome -Morbid obesity BMI 51.8 -Bipolar disorder and PTSD - Plan: Patient started IV fluids IV ceftriaxone. Home medications resumed. Consultation was made to urology, general surgery, DEVELOPMENT REPRESENTATIVE. Care was discussed with the patient question also. Patient is made nothing by mouth to further evaluation by general surgery. Past Medical History Past Medical History: Diabetes Mellitus, Fibromyalgia, GERD/Reflux, GI Bleed, Hyperlipidemia Additional Past Medical History / Comment(s): gallstones, kidney stones, IBS, migraines, tachycardia, Martine- Guevara tear, History of Any Multi-Drug Resistant Organisms: None Reported Past Surgical History: Section, Cholecystectomy, Tubal Ligation Additional Past Surgical History / Comment(s): neck biopsy (lymph node ) d&c; LP shunt May 13 2019 feb 0211/2019 -revision, stent/ lithotripsy on left, cystoscopy, Past Anesthesia/Blood Transfusion Reactions: No Reported Reaction Past Psychological History: Anxiety, Bipolar, Depression, PTSD Smoking Status: Never smoker Past Alcohol Use History: None Reported Past Drug Use History: Marijuana - Past Family History Mother Family Medical History: Diabetes Mellitus, Hyperlipidemia, Hypertension, Myocardial Infarction ([place]) Additional Family Medical History / Comment(s): [place] X 3 Father Family Medical History: Congestive Heart Failure (CHF), Hyperlipidemia, Hypertension, Myocardial Infarction ([place]) Additional Family Medical History / Comment(s): mi x 3 Son(s) Family Medical History: No Reported History Medications and Allergies Home Medications Medication Instructions Recorded Confirmed Type Pravastatin Sodium [Pravachol] 20 mg PO HS 01/20/18 02/27/20 History LORazepam [Ativan] 1 mg PO HS 11/24/18 02/27/20 History buPROPion HCL [Wellbutrin XL] 300 mg PO DAILY 12/15/19 02/27/20 History traZODone HCL 50 mg PO HS 12/15/19 02/27/20 History ARIPiprazole 20 mg PO HS 01/09/20 02/27/20 History ARIPiprazole [Abilify] 5 mg PO DAILY 01/09/20 02/27/20 History Topiramate 50 mg PO HS 01/09/20 02/27/20 History acetaZOLAMIDE [Diamox] 250 mg PO BID 01/09/20 02/27/20 History busPIRone HCL 15 mg PO TID PRN 01/09/20 02/27/20 History metFORMIN HCL 500 mg PO BID 01/09/20 02/27/20 History Amitriptyline HCl [Elavil] 75 mg PO BID 01/24/20 02/27/20 History Verapamil HCl [Verapamil ER] 180 mg PO HS 01/24/20 02/27/20 History Etonogestrel [Nexplanon] 68 mg SQ ONCE 02/20/20 02/27/20 History Folic Acid 1 mg PO HS 02/20/20 02/27/20 History Gabapentin 600 mg PO TID 02/20/20 02/27/20 History Hydrocodone/Acetaminophen 1 tab PO Q4HR PRN 02/20/20 02/27/20 History [Hydrocodone/Acetaminophen 10-300 mg] Dawson Fe 05/17 1 tab PO DAILY 02/20/20 02/27/20 History Ondansetron [Zofran ODT] 4 mg PO Q8HR PRN 02/20/20 02/27/20 History hydroCHLOROthiazide 25 mg PO DAILY 02/20/20 02/27/20 History Tamsulosin [Flomax] 0.4 mg PO DAILY #10 cap 02/21/20 02/27/20 Rx OXcarbazepine [Oxtellar Xr] 150 mg PO HS 02/27/20 02/27/20 History Allergies Allergy/AdvReac Type Severity Reaction Status Date / Time NSAIDS (Non-Steroidal AdvReac Unknown Verified 02/27/20 09:52 Anti-Inflamma Physical Exam Vitals: Vital Signs Temp Pulse Pulse Pulse Resp BP BP 02/27/20 09:07 97.6 F 100 16 120/78 02/27/20 05:26 98 F 117 H 20 114/76 02/27/20 04:20 98.4 F 99 16 123/64 02/27/20 03:30 98.0 F 98 18 111/54 02/27/20 01:17 EST 125 H 18 99/61 02/26/20 23:21 98.7 F 114 H 20 135/82 Pulse Ox 02/27/20 09:07 98 02/27/20 05:26 96 02/27/20 04:20 97 02/27/20 03:30 98 02/27/20 01:17 EST 97 02/26/20 23:21 97 Intake and Output 02/26/20 02/27/20 02/27/20 23:59 06:59 14:59 Output Total 125 Balance -125 Output: Urine 125 Other: Voiding Method # Voids Weight Results CBC & Chem 7: 02/27/20 00:02 02/27/20 00:02 Labs: Abnormal Lab Results - Last 24 Hours (Table) 02/26/20 02/27/20 02/27/20 Range/Units 23:45 00:02 00:02 MCV 77.1 L (80.0-100.0) fL MCH 23.8 L (25.0-35.0) pg MCHC 30.9 L (31.0-37.0) g/dL RDW 16.5 H (11.5-15.5) % Chloride 110 H (98-107) mmol/L ALT 38 H (4-34) U/L C-Reactive Protein 44.2 H (<10.0) mg/L Total Protein 6.2 L (6.3-8.2) g/dL Albumin 3.3 L (3.5-5.0) g/dL Lipase 326 H (23-300) U/L Urine Appearance Cloudy H (Clear) Urine Protein 1+ H (Negative) Urine Blood Moderate H (Negative) Ur Leukocyte Esterase Large H (Negative) Urine RBC >182 H (0-5) /hpf Urine WBC 25 H (0-5) /hpf Urine Bacteria Rare H (None) /hpf Urine Mucus Rare H (None) /hpf Urine Yeast (Budding) Occasional H (None) /hpf Thrombosis Risk Factor Assmnt - Choose All That Apply Any of the Below Risk Factors Present?: Yes Each Factor Represents 1 point: Obesity (BMI >25), Oral contraceptives or hormone replacement therapy Other Risk Factors: No Each Risk Factor Represents 3 Points: Family history of DVT/PE Other congenital or acquired thrombophilia - If yes, enter type in comment: No Thrombosis Risk Factor Assessment Total Risk Factor Score: 5 Thrombosis Risk Factor Assessment Level: High Risk
[2020-02-27 22:01] LABS: Glucose,Whole Blood 90 mg/dL (75-99)
[2020-02-27] MEDS: LORazepam 1 MG TAB PO SCH (22:12)
[2020-02-27] MEDS: FOLIC ACID 1 MG TAB PO SCH (22:12)
[2020-02-27] MEDS: TOPIRAMATE 25 MG TAB PO SCH (22:13)
[2020-02-27] MEDS: PRAVASTATIN SODIUM 20 MG TAB PO SCH (22:13)
[2020-02-27] MEDS: VERAPAMIL SR 180 MG TABLET.ER PO SCH (22:14)
[2020-02-27] MEDS: traZODone HCL 50 MG TAB PO SCH (22:14)
[2020-02-28] MEDS: OXCARBAZEPINE 150 MG PO SCH (01:47)
[2020-02-28] MEDS: INSULIN ASPART (NovoLOG) 100 UNIT/ML VIAL SQ SCH ×4 (01:47→19:09)
[2020-02-28] MEDS: HYDROmorphone 1 MG/ML 1 ML SYRINGE IVP PRN ×6 (01:48→19:07)
[2020-02-28] MEDS: SODIUM CHLORIDE 0.9% 1,000 ML IV SCH ×3 (01:53→23:00)
[2020-02-28] MEDS: ONDANSETRON 4 MG/2 ML VIAL IVP PRN ×2 (05:15→20:15)
[2020-02-28 06:28] LABS: Glucose,Whole Blood 97 mg/dL (75-99)
[2020-02-28] MEDS: GABAPENTIN 300 MG CAP PO SCH ×3 (09:09→22:47)
[2020-02-28] MEDS: acetaZOLAMIDE 250 MG TAB PO SCH ×2 (09:09→22:48)
[2020-02-28] MEDS: AMITRIPTYLINE HCL 25 MG TAB PO SCH ×2 (09:09→22:48)
[2020-02-28] MEDS: ENOXAPARIN 40 MG/0.4 ML SYRINGE SQ SCH (09:10)
[2020-02-28] MEDS: FAMOTIDINE 20 MG TAB PO SCH ×2 (09:11→22:48)
[2020-02-28] MEDS: buPROPion XL 300 MG TAB.ER.24H PO SCH (09:11)
[2020-02-28] MEDS: TAMSULOSIN 0.4 MG CAP.ER.24H PO SCH (09:12)
[2020-02-28] MEDS: ARIPiprazole 5 MG TAB PO SCH (09:12)
[2020-02-28] MEDS: metFORMIN 500 MG TAB PO SCH ×2 (09:19→22:47)
[2020-02-28] MEDS ORDERED: LACTULOSE 20 GM/30 ML CUP PO ONE (10:39)
--- NOTE | 2020-02-28 10:42 | P.PN ---
Subjective Progress Note Date: 02/28/20 CHIEF COMPLAINT: Abdominal pain HISTORY OF PRESENT ILLNESS: The patient is a 29-year-old female with pre- existing history of VOICE INTERCEPT TECHNICIAN shunt status post revision in the last 1 months developed a fluid collection along the left lower quadrant abdominal wall. Separately she does have history of multiple urological problems including multiple kidney stones. She is status post stent placement of her right ureter. General surgery is consulted for left lower quadrant abdominal pain including fluid collection. Patient still reporting left lower quadrant abdominal pain andright lower quadrant pain. The right lower quadrant pain CHIEF DIGITAL MEDIA OFFICER service is following. Patient did have evidence of a right ovarian vein thrombus. Right now she is reporting that her right sided pain is greater than the left. She does admit to some nausea. Recommended that patient follows up with her neurosurgeon that had placed a VOICE INTERCEPT TECHNICIAN shunt. She's scheduled for follow-up appointment later in February with her neurosurgeon. Patient is afebrile. PHYSICAL EXAM: VITAL SIGNS: Reviewed GENERAL: Well-developed in no acute distress. HEENT: No sclera icterus. Extraocular movements grossly intact. Moist buccal mucosa. Head is atraumatic, normocephalic. Hears conversational speech. No nasal drainage. NECK: Supple without lymphadenopathy. CHEST: Non-labored respirations and equal bilateral excursions. CARDIOVASCULAR: Palpable 2+ radial pulses. ABDOMEN: Soft. Nondistended. Nontender. MUSCULOSKELETAL: No clubbing or cyanosis. NEUROLOGIC: No focal or lateralizing signs. Cranial nerves II through XII grossly intact. PSYCH: Appropriate affect. Alert and oriented to person, place and time. SKIN: Well perfused. Good skin turgor. ASSESSMENT: 1. Left lower quadrant abdominal pain with fluid collection 2. History of VOICE INTERCEPT TECHNICIAN shunt with revision and complication PLAN: -review of her clinical history as well as studies, her pain is consistent with a large subcutaneous fluid collection from her recent VOICE INTERCEPT TECHNICIAN shunt revision. -As her VOICE INTERCEPT TECHNICIAN shunt is for her pseudotumor cerebri, do recommend follow up with her neurosurgeon regarding this potential complication from her VOICE INTERCEPT TECHNICIAN shunt revision -No general surgical intervention at this time -Diet as tolerated -Patient can be discharged from surgical standpoint Physician Lumber Handler note has been reviewed by physician. Signing provider agrees with the documented findings, assessment, and plan of care. Objective - Vital Signs Vital signs: Vital Signs Temp 98.9 F 02/28/20 08:55 Pulse 121 H 02/28/20 08:55 Resp 18 02/28/20 08:55 BP 113/75 02/28/20 08:55 Pulse Ox 93 L 02/28/20 08:55 Intake & Output 02/27/20 02/28/20 02/28/20 18:59 06:59 18:59 Intake Total 30 600 Output Total 800 875 Balance -770 -275 Intake: Oral 30 600 Output: Urine 800 875 Other: Voiding Method Toilet Toilet Toilet - Labs CBC & Chem 7: 02/27/20 00:02 02/27/20 00:02 Labs: Microbiology - Last 24 Hours (Table) 02/26/20 23:45 Urine Culture - Preliminary Urine,Voided
--- NOTE | 2020-02-28 11:25 | P.PN ---
Progress Note - Text Progress Note Date: 02/28/20 She was reviewed with radiology. There was still some question as to whether or not there was a thrombosed ovarian vein. In reviewing the films with radiology and back tracking through multiple CAT scans there does not seem to be any change in diameter of her ovarian vein and he feels it is very unlikely that this is a ovarian vein thrombosis aced on comparison studies and nonspecific finding within the ultrasound.
[2020-02-28 12:09] LABS: Glucose,Whole Blood 94 mg/dL (75-99)
--- NOTE | 2020-02-28 12:51 | P.CONS ---
History of Present Illness - Reason for Consult Consult date: 02/28/20 New Ovarian Vein Thrombosis, History of NHL Requesting physician: Efrain Goodman - Chief Complaint abdominal pain - History of Present Illness Ms Woo is a pleasant WF, initially seen in consult at [facility] on 03/09/14. She had woken up on 03/05/14 with acute onset of pain and swelling under the rt ear. This did not improve with Bactrim, and she thus came to the hospital. Initially, an infection was felt to be more likely, based on the acute presentation. She was started on antibiotics, and had an extensive infection w/u done, which was negative. We also did a lymphadenopathy and pancytopenia w/u, which was also negative. CT C/A/P did not show any other sites of involvement, excepting splenomegaly. After mild initial improvement, her s/s persisted, though her counts did improve. Thus a biopsy was recommended. She had a FNA initially with radiology, which was non-diagnostic. An excisional biopsy was done on 03/17/14. 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 This was [facility], and final report was still pending, at the time of her 1st OV on 04/04/14. As the prelim report was suspicious for lymphoma, a PET and bone marrow were planned. However, labs showed a positive serum B-HCG, indicating early pre gnancy. Thus these were cancelled. 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 Surveillance was still felt to be necessary as the path report was not totally definitive. This was placed on hold for her . She delivered a full term male child by C section in 12/10 and also had a tubal ligation. On f/u on 01/25/15, repeat labs and Ct scans were done, and the pt subsequently placed on surveillance. Scans in 05/14 did not show any change, but the pt did not keep her appt. She had been c/o abdominal pain, and intermittent n/v, with c/o BRB/dark brown or black in her vomitus and stool off and on. Colonscopy and EGD in 09/11 were negative. 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 CT AP in 02/11 was negative. She had been having prolonged menstrual bleeding, which stopped with OCPs , in late 03/14. Her PO iron was increased to BID in 04/13 She has been tolerating PO iron well, and reports good compliance. She does need to take laxatives off and on. She continues to have intermittent abdominal pain, with no change in pattern. She denied any f/c/ . She has an ongoing URTI. She bruises easily, which is chronic. Her ROS is otherwise as per HPI and negative out of 10. 11/26/17-Pt here today for an acute visit, she was in [facility] last week shoulder and neck pain, sh was told that on exam she had lymphadenopathy and was too f/u with Hem/Onc. Pt denied any fevers,sweats, change in appetite, N,V, cough, SOB, abd pain, bloating, hangesin bowel or bladder habits, she was noted to have multiple insect bites on her extremities. Her neck and shoulder pain are a little better. Last seen in 06/2017 Review of Systems All systems: negative Constitutional: Reports as per HPI Past Medical History Past Medical History: Diabetes Mellitus, Fibromyalgia, GERD/Reflux, GI Bleed, Hyperlipidemia Additional Past Medical History / Comment(s): gallstones, kidney stones, IBS, migraines, tachycardia, Martine- Guevara tear, History of Any Multi-Drug Resistant Organisms: None Reported Past Surgical History: Section, Cholecystectomy, Tubal Ligation Additional Past Surgical History / Comment(s): neck biopsy (lymph node ) d&c; LP shunt May 13 2019 feb 0211/2019 -revision, stent/ lithotripsy on left, cystoscopy, Past Anesthesia/Blood Transfusion Reactions: No Reported Reaction Past Psychological History: Anxiety, Bipolar, Depression, PTSD Smoking Status: Never smoker Past Alcohol Use History: None Reported Past Drug Use History: Marijuana - Past Family History Mother Family Medical History: Diabetes Mellitus, Hyperlipidemia, Hypertension, Myocardial Infarction ([place]) Additional Family Medical History / Comment(s): [place] X 3 Father Family Medical History: Congestive Heart Failure (CHF), Hyperlipidemia, Hypertension, Myocardial Infarction ([place]) Additional Family Medical History / Comment(s): mi x 3 Son(s) Family Medical History: No Reported History Medications and Allergies Home Medications Medication Instructions Recorded Confirmed Type Pravastatin Sodium [Pravachol] 20 mg PO HS 01/20/18 02/27/20 History LORazepam [Ativan] 1 mg PO HS 11/24/18 02/27/20 History buPROPion HCL [Wellbutrin XL] 300 mg PO DAILY 12/15/19 02/27/20 History traZODone HCL 50 mg PO HS 12/15/19 02/27/20 History ARIPiprazole 20 mg PO HS 01/09/20 02/27/20 History ARIPiprazole [Abilify] 5 mg PO DAILY 01/09/20 02/27/20 History Topiramate 50 mg PO HS 01/09/20 02/27/20 History acetaZOLAMIDE [Diamox] 250 mg PO BID 01/09/20 02/27/20 History busPIRone HCL 15 mg PO TID PRN 01/09/20 02/27/20 History metFORMIN HCL 500 mg PO BID 01/09/20 02/27/20 History Amitriptyline HCl [Elavil] 75 mg PO BID 01/24/20 02/27/20 History Verapamil HCl [Verapamil ER] 180 mg PO HS 01/24/20 02/27/20 History Etonogestrel [Nexplanon] 68 mg SQ ONCE 02/20/20 02/27/20 History Folic Acid 1 mg PO HS 02/20/20 02/27/20 History Gabapentin 600 mg PO TID 02/20/20 02/27/20 History Hydrocodone/Acetaminophen 1 tab PO Q4HR PRN 02/20/20 02/27/20 History [Hydrocodone/Acetaminophen 10-300 mg] Dawson Fe 05/17 1 tab PO DAILY 02/20/20 02/27/20 History Ondansetron [Zofran ODT] 4 mg PO Q8HR PRN 02/20/20 02/27/20 History hydroCHLOROthiazide 25 mg PO DAILY 02/20/20 02/27/20 History Tamsulosin [Flomax] 0.4 mg PO DAILY #10 cap 02/21/20 02/27/20 Rx OXcarbazepine [Oxtellar Xr] 150 mg PO HS 02/27/20 02/27/20 History Allergies Allergy/AdvReac Type Severity Reaction Status Date / Time NSAIDS (Non-Steroidal AdvReac Unknown Verified 02/27/20 09:52 Anti-Inflamma Physical Exam Vitals: Vital Signs Temp Pulse Pulse Pulse Resp BP BP 02/27/20 19:32 98.9 F 96 16 104/55 02/27/20 16:21 98.4 F 96 18 121/78 02/27/20 16:00 96 02/27/20 12:15 98.6 F 91 16 106/73 02/27/20 09:10 100 02/27/20 09:07 97.6 F 100 16 120/78 02/27/20 05:26 98 F 117 H 20 114/76 02/27/20 04:20 98.4 F 99 16 123/64 02/27/20 03:30 98.0 F 98 18 111/54 02/27/20 01:17 EST 125 H 18 99/61 02/26/20 23:21 98.7 F 114 H 20 135/82 Pulse Ox 02/27/20 19:32 95 02/27/20 16:21 100 02/27/20 16:00 02/27/20 12:15 97 02/27/20 09:10 02/27/20 09:07 98 02/27/20 05:26 96 02/27/20 04:20 97 02/27/20 03:30 98 02/27/20 01:17 EST 97 02/26/20 23:21 97 Intake and Output 02/27/20 02/27/20 02/27/20 06:59 14:59 22:59 Intake Total 30 600 Output Total 250 550 Balance -220 50 Intake: Oral 30 600 Output: Urine 250 550 Other: Voiding Method Toilet # Voids Weight - Constitutional General appearance: cooperative, morbidly obese, no acute distress - EENT Eyes: EOMI, PERRLA ENT: NA/AT, normal oropharynx - Neck Neck: normal ROM - Respiratory Respiratory: bilateral: CTA - Cardiovascular Rhythm: regular Heart sounds: normal: S1, S2 - Gastrointestinal bilateral flank Right greater than left General gastrointestinal: normal bowel sounds, soft, tenderness - Integumentary Integumentary: pale - Neurologic Neurologic: CNII-XII intact - Musculoskeletal Musculoskeletal: generalized weakness, strength equal bilaterally - Psychiatric Psychiatric: A&O x's 3, appropriate affect, intact judgment & insight Results CBC & Chem 7: 02/27/20 00:02 02/27/20 00:02 Labs: Abnormal Lab Results - Last 24 Hours (Table) 02/26/20 02/27/20 02/27/20 Range/Units 23:45 00:02 00:02 MCV 77.1 L (80.0-100.0) fL MCH 23.8 L (25.0-35.0) pg MCHC 30.9 L (31.0-37.0) g/dL RDW 16.5 H (11.5-15.5) % Chloride 110 H (98-107) mmol/L ALT 38 H (4-34) U/L C-Reactive Protein 44.2 H (<10.0) mg/L Total Protein 6.2 L (6.3-8.2) g/dL Albumin 3.3 L (3.5-5.0) g/dL Lipase 326 H (23-300) U/L Urine Appearance Cloudy H (Clear) Urine Protein 1+ H (Negative) Urine Blood Moderate H (Negative) Ur Leukocyte Esterase Large H (Negative) Urine RBC >182 H (0-5) /hpf Urine WBC 25 H (0-5) /hpf Urine Bacteria Rare H (None) /hpf Urine Mucus Rare H (None) /hpf Urine Yeast (Budding) Occasional H (None) /hpf Microbiology - Last 24 Hours (Table) 02/26/20 23:45 Urine Culture - Preliminary Urine,Voided CT scan - abdomen: report reviewed Assessment and Plan (1) Abdominal pain Current Visit: Yes Status: Acute Code(s): R10.9 - UNSPECIFIED ABDOMINAL PAIN SNOMED Code(s): 64703614 (2) S/P DATA OPERATIONS MANAGER shunt Current Visit: Yes Status: Acute Code(s): Z98.2 - PRESENCE OF CEREBROSPINAL FLUID DRAINAGE DEVICE SNOMED Code(s): 724087098 (3) Urinary tract infection Current Visit: Yes Status: Acute Code(s): N39.0 - URINARY TRACT INFECTION, SITE NOT SPECIFIED SNOMED Code(s): 69574156 (4) Bipolar 1 disorder Current Visit: No Status: Acute Code(s): F31.9 - BIPOLAR DISORDER, UNSPECIFIED SNOMED Code(s): 463244608 Plan: 29 year old female with complicated medical history, imaging revealing question of ovarian thrombosis: - I will discuss further with radiology as patient has had history of GI bleed and with her medical history would like definitive diagnosis of thrombus. However, if thrombus anticoagulation will be recommended it would appear to be provoked as she is on control and has IUD in place at this time, per APRON CLEANER. CTA abdomen and pelvis to further evaluate Physician Attest: I have completed the full history and physical and agree with above dictation, dictated as ascribe.
[2020-02-28 14:36] LABS: Uric Acid 4.6 mg/dL (3.7-7.4)
--- NOTE | 2020-02-28 17:28 | CT ---
EXAMINATION TYPE: CT angio abdomen pelvis DATE OF EXAM: 02/28/2020 HISTORY: Left lower quadrant abdominal/pelvic pain. CT DLP: 2969.1mGycm Automated Exposure Control for Dose Reduction was Utilized. TECHNIQUE: CT angiography scan of the abdomen and pelvis is performed without and with IV Contrast, patient inje cted with 100ml mL of Isovue 370. Three-dimensional and MIP images were generated and utilized on a [employer] workstation. COMPARISON: CT abdomen pelvis 02/27/2020 FINDINGS: LUNG BASES: Normal. LIVER: Fatty liver. BILIARY SYSTEM: Status post cholecystectomy. No intrahepatic or extrahepatic biliary ductal dilatatio n. PANCREAS: Normal. SPLEEN: Normal. ADRENALS: Normal. KIDNEYS: There is new mild right-sided hydronephrosis. Right-sided ureteral stent is seen proximally coiled within the renal pelvis and distally within the urinary bladder. There is minimal right mid pe riureteral inflammatory stranding. BOWEL: No obstruction or thickening. PERITONEUM: There is a lower abdominal drainage catheter redemonstrated, entering the abdominal cavi ty at the left lower quadrant, with distal tip again within the right lower quadrant. No pneumoperito neum. No free fluid. LYMPH NODES: No lymphadenopathy. PELVIS: Urinary bladder with right-sided ureteral stent is otherwise normal. Normal uterus and adnexa . VASCULATURE: No abdominal aortic aneurysm or dissection. Redemonstrated mild stranding of the mid to distal right ovarian vein. MUSCULOSKELETAL: At the site of the left lower quadrant drainage catheter, there is a redemonstrated subcutaneous 9.7 x 4.3 cm fluid collection with thin wall with no appreciable enhancement. This flui d collection measured approximately 9.8 x 4.9 cm on 02/27/2020 comparison. IMPRESSION: 1. Right-sided ureteral stent appears appropriately positioned, however there is new mild right hydr onephrosis. 2. Left lower quadrant catheter, with similar appearing subcutaneous tissue focal fluid collection a t catheter insertion site measuring 9.7 x 4.3 cm. Findings likely represent hematoma or seroma. 3. Redemonstrated inflammatory stranding of the right ovarian vein. Differential again includes righ t ovarian vein thrombosis. 4. Fatty liver.
[2020-02-28 17:39] LABS: Glucose,Whole Blood 106 mg/dL (75-99)
[2020-02-28 19:43] LABS: Glucose,Whole Blood 112 mg/dL (75-99)
[2020-02-28 19:57] LABS: % Iron Saturation 4.84 (12.00-45.00); Ferritin 10.1 ng/mL (10.0-291.0)
--- NOTE | 2020-02-28 20:47 | P.PN ---
Progress Note - Text Progress Note Date: 02/28/20 Chief Complaint: Left lower abdominal pain History of presenting complaint: This is a 29-year-old patient was chronic stable medical conditions include diabetes, fibromyalgia, GERD, hyperlipidemia, irritable bowel syndrome, CHAIRMAN shunt. Bipolar disorder. About a week ago she was discharged to the hospital at that time she had a cystoscopy with a right ureteroscopic retrograde pyelogram lithotripsy stone basketing and a stent was placed by Dr. orellana the urologist. This was for a 1.1 cm right sided ureteral stone. At the UP junction. Patient states she still has some pain on the right side. Yesterday she developed pain in the left lower quadrant. No nausea vomiting no fever no chills. No change in appetite. No change in bowel pattern. Patient does follow with ZA Viveros at Dr. Hand office. No change in her menstrual pattern. Computed tomography scan of the abdomen did show fluid collection for Gen. surgery was consulted. Today-having some left lower quadrant pain. There is a questionable right ovarian vein thrombosis. Dr. Obregon did review this with radiology-it is felt unlikely to be ovarian vein thrombosis. Visit collection of fluid in the left pelvis felt to be related to CHAIRMAN shunt. Tolerating a diet. Review of systems: Was done for constitutional, cardiovascular, GI, pulmonary. relevant finding as above Active Medications Acetazolamide (Acetazolamide 250 Mg Tab) 250 mg PO BID [facility] Last Admin: 02/28/20 09:09 Dose: 250 mg Documented by: Amitriptyline HCl (Amitriptyline Hcl 25 Mg Tab) 75 mg PO BID [facility] Last Admin: 02/28/20 09:09 Dose: 75 mg Documented by: Aripiprazole (Aripiprazole 5 Mg Tab) 5 mg PO DAILY [facility] Last Admin: 02/28/20 09:12 Dose: 5 mg Documented by: Aripiprazole (Aripiprazole 20 Mg Tab) 20 mg PO HS [facility] Last Admin: 02/27/20 22:12 Dose: 20 mg Documented by: Bupropion HCl (Bupropion Xl 300 Mg Tab.Er.24h) 300 mg PO DAILY [facility] Last Admin: 02/28/20 09:11 Dose: 300 mg Documented by: Buspirone HCl (Buspirone Hcl 5 Mg Tab) 15 mg PO TID PRN PRN Reason: Anxiety Enoxaparin Sodium (Enoxaparin 40 Mg/0.4 Ml Syringe) 40 mg SQ DAILY [facility] Last Admin: 02/28/20 09:10 Dose: 40 mg Documented by: Famotidine (Famotidine 20 Mg Tab) 20 mg PO BID [facility] Last Admin: 02/28/20 09:11 Dose: 20 mg Documented by: Folic Acid (Folic Acid 1 Mg Tab) 1 mg PO [facility] Last Admin: 02/27/20 22:12 Dose: 1 mg Documented by: Gabapentin (Gabapentin 300 Mg Cap) 600 mg PO TID [facility] Last Admin: 02/28/20 16:03 Dose: 600 mg Documented by: Hydromorphone HCl (Hydromorphone 0.5 Mg/0.5 Ml Syringe) 0.5 mg IVP Q3HR PRN PRN Reason: Mild to Moderate Pain Hydromorphone HCl (Hydromorphone 1 Mg/Ml 1 Ml Syringe) 1 mg IVP Q3HR PRN PRN Reason: Moderate to Severe Pain Last Admin: 02/28/20 19:07 Dose: 1 mg Documented by: Sodium Chloride (Saline 0.9%) 1,000 mls @ 125 mls/hr IV .Q8H [facility] Last Admin: 02/28/20 19:07 Dose: 125 mls/hr Documented by: Ceftriaxone Sodium 1 gm/ (Sodium Chloride) 50 mls @ 100 mls/hr IVPB Q24H [facility] Last Admin: 02/27/20 22:45 Dose: 100 mls/hr Documented by: Insulin Aspart (Insulin Aspart (Novolog) 100 Unit/Ml Vial) 0 unit SQ ACHS [facility]; Protocol Last Admin: 02/28/20 19:09 Dose: Not Given Documented by: Lorazepam (Lorazepam 1 Mg Tab) 1 mg PO [facility] Last Admin: 02/27/20 22:12 Dose: 1 mg Documented by: Metformin HCl (Metformin 500 Mg Tab) 500 mg PO BID [facility] Last Admin: 02/28/20 09:19 Dose: 500 mg Documented by: Naloxone HCl (Naloxone 0.4 Mg/Ml 1 Ml Vial) 0.2 mg IV Q2M PRN PRN Reason: Opioid Reversal Non-Formulary Medication (Oxcarbazepine [Oxtellar Xr]) 150 mg PO [facility] Last Admin: 02/28/20 01:47 Dose: Not Given Documented by: Ondansetron HCl (Ondansetron 4 Mg/2 Ml Vial) 4 mg IVP Q8HR PRN PRN Reason: Nausea And Vomiting Last Admin: 02/28/20 20:15 Dose: 4 mg Documented by: Ondansetron HCl (Ondansetron Odt 4 Mg Tab) 4 mg PO Q8HR PRN PRN Reason: nausea Pravastatin Sodium (Pravastatin Sodium 20 Mg Tab) 20 mg PO [facility] Last Admin: 02/27/20 22:13 Dose: 20 mg Documented by: Tamsulosin HCl (Tamsulosin 0.4 Mg Cap.Er.24h) 0.4 mg PO DAILY [facility] Last Admin: 02/28/20 09:12 Dose: 0.4 mg Documented by: Topiramate (Topiramate 25 Mg Tab) 50 mg PO [facility] Last Admin: 02/27/20 22:13 Dose: 50 mg Documented by: Trazodone HCl (Trazodone Hcl 50 Mg Tab) 50 mg PO [facility] Last Admin: 02/27/20 22:14 Dose: 50 mg Documented by: Verapamil HCl (Verapamil Sr 180 Mg Tablet.Er) 180 mg PO [facility] Last Admin: 02/27/20 22:14 Dose: 180 mg Documented by: Physical examination: VITAL SIGNS: 98.9, 104, 18, 122.77, 94% room air GENERAL: BMI 51.8, laying in bed, not in distress. EYES: Pupils equal. Conjunctiva normal. NECK: JVD not raised; masses not palpable. HEART: First and second heart sounds are normal; no edema. LUNGS: Respiratory rate normal; clear to auscultation. ABDOMEN: Soft, some left lower quadrant tenderness, no guarding rigidity, liver spleen not palpable, no masses palpable. PSYCH: Alert and oriented x3; mood and affect normal. INVESTIGATIONS, reviewed in the clinical context: Repeat computed tomography scan of the abdomen with IV contrast on February [id number] ureteral stent, with some mild right hydronephrosis, left pelvic fluid collection nonspecific findings on the right ovarian vein, fatty liver White count 9.2 hemoglobin 11.9 platelets 340 potassium 3.9 creatinine 0.73 Amylase 45 lipase 326 UA positive for leukoesterase, WBC Computed tomography scan of the abdomen pelvis without IV contrast-liver diffuse fatty infiltration, cholecystectomy findings, and the left lower quadrant is a finding of fluid collection 7.9 x 6.5 x 6.6 cm. Also this some inflammatory changes surrounding the mid to distal right ovarian vein possible. Assessment: -New onset of left lower abdominal pain with a fluid collection in the left lower quadrant. Patient does not have any fever or chills or white count. Possibly related to CHAIRMAN shunt -Acute UTI with cystitis-cultures pending -Recent right ureter double-J stent placement for a UP junction ureteral stone -Nonalcoholic fatty liver disease -Diabetes mellitus type 2 -Chronic fibromyalgia -GERD -Hyperlipidemia -Irritable bowel syndrome -Morbid obesity BMI 51.8 -Bipolar disorder and PTSD -Doubtful right ovarian vein thrombosis based on evaluation by Dr. Obregon in radiology. - Plan: Continue current medication treatment plan. Await further input from oncology team.Patient follow-up with the neurosurgical team.-They'll be contacted after getting more information.
[2020-02-28 22:15] LABS: Glucose,Whole Blood 120 mg/dL (75-99)
[2020-02-28] MEDS: TOPIRAMATE 25 MG TAB PO SCH (22:47)
[2020-02-28] MEDS: LORazepam 1 MG TAB PO SCH (22:47)
[2020-02-28] MEDS: FOLIC ACID 1 MG TAB PO SCH (22:48)
[2020-02-28] MEDS: PRAVASTATIN SODIUM 20 MG TAB PO SCH (22:48)
[2020-02-28] MEDS: VERAPAMIL SR 180 MG TABLET.ER PO SCH (22:48)
[2020-02-28] MEDS: traZODone HCL 50 MG TAB PO SCH (22:48)
[2020-02-29] MEDS: OXCARBAZEPINE 150 MG PO SCH
[2020-02-29] MEDS: HYDROcodone/APAP 10-325MG 1 EACH TAB PO PRN ×4 (01:47→18:47)
[2020-02-29 06:53] LABS: Glucose,Whole Blood 99 mg/dL (75-99)
[2020-02-29] MEDS: INSULIN ASPART (NovoLOG) 100 UNIT/ML VIAL SQ SCH ×4 (07:23→17:56)
[2020-02-29] MEDS: SODIUM CHLORIDE 0.9% 1,000 ML IV SCH ×2 (08:33)
[2020-02-29] MEDS: AMITRIPTYLINE HCL 25 MG TAB PO SCH (08:34)
[2020-02-29] MEDS: acetaZOLAMIDE 250 MG TAB PO SCH (08:34)
[2020-02-29] MEDS: FAMOTIDINE 20 MG TAB PO SCH (08:35)
[2020-02-29] MEDS: ARIPiprazole 5 MG TAB PO SCH (08:35)
[2020-02-29] MEDS: metFORMIN 500 MG TAB PO SCH (08:35)
[2020-02-29] MEDS: buPROPion XL 300 MG TAB.ER.24H PO SCH (08:35)
[2020-02-29] MEDS: GABAPENTIN 300 MG CAP PO SCH ×2 (08:35→17:01)
[2020-02-29] MEDS: ENOXAPARIN 40 MG/0.4 ML SYRINGE SQ SCH (08:35)
[2020-02-29] MEDS: TAMSULOSIN 0.4 MG CAP.ER.24H PO SCH (08:36)
[2020-02-29] MEDS ORDERED: PANTOPRAZOLE 40 MG/10 ML VIAL IVP SCH (09:00)
[2020-02-29 12:34] LABS: Glucose,Whole Blood 99 mg/dL (75-99)
[2020-02-29 12:53] LABS: Immunoglobulin M 20.3 mg/dL (40.0-280.0)
--- NOTE | 2020-02-29 14:28 | P.PN ---
Subjective Progress Note Date: 02/29/20 Principal diagnosis: UTI ? Ovarian vein Thrombosis. Objective - Vital Signs Vital signs: Vital Signs Temp 98.9 F 02/29/20 12:05 Pulse 105 H 02/29/20 12:05 Resp 18 02/29/20 12:05 BP 107/64 02/29/20 12:05 Pulse Ox 97 02/29/20 12:05 Intake & Output 02/28/20 02/29/20 02/29/20 18:59 06:59 18:59 Intake Total 600 Output Total 1550 1500 500 Balance -950 -1500 -500 Intake: Oral 600 Output: Urine 1550 1500 500 Other: Voiding Method Toilet Toilet # Voids 1 - Exam - Constitutional General appearance: cooperative, morbidly obese, no acute distress - EENT Eyes: EOMI, PERRLA ENT: NA/AT, normal oropharynx - Neck Neck: normal ROM - Respiratory Respiratory: bilateral: CTA - Cardiovascular Rhythm: regular Heart sounds: normal: S1, S2 - Gastrointestinal bilateral flank Right greater than left General gastrointestinal: normal bowel sounds, soft, tenderness - Integumentary Integumentary: pale - Neurologic Neurologic: CNII-XII intact - Musculoskeletal Musculoskeletal: generalized weakness, strength equal bilaterally - Psychiatric Psychiatric: A&O x's 3, appropriate affect, intact judgment & insight - Labs CBC & Chem 7: 02/27/20 00:02 02/27/20 00:02 Labs: Abnormal Lab Results - Last 24 Hours (Table) 02/27/20 02/27/20 02/28/20 Range/Units 00:02 00:02 17:35 POC Glucose (mg/dL) 106 H (75-99) mg/dL Iron 20 L (50-170) ug/dL % Saturation 4.84 L (12.00-45.00) IgM 20.3 L (40.0-280.0) mg/dL 02/28/20 02/28/20 Range/Units 19:40 22:14 POC Glucose (mg/dL) 112 H 120 H (75-99) mg/dL Iron (50-170) ug/dL % Saturation (12.00-45.00) IgM (40.0-280.0) mg/dL Microbiology - Last 24 Hours (Table) 02/26/20 23:45 Urine Culture - Final Urine,Voided Assessment and Plan (1) Abdominal pain Current Visit: Yes Status: Acute Code(s): R10.9 - UNSPECIFIED ABDOMINAL PAIN SNOMED Code(s): 74396527 (2) S/P CHAIRPERSON ANESTHESIOLOGY shunt Current Visit: Yes Status: Acute Code(s): Z98.2 - PRESENCE OF CEREBROSPINAL FLUID DRAINAGE DEVICE SNOMED Code(s): 676947525 (3) Urinary tract infection Current Visit: Yes Status: Acute Code(s): N39.0 - URINARY TRACT INFECTION, SITE NOT SPECIFIED SNOMED Code(s): 28064945 (4) Bipolar 1 disorder Current Visit: No Status: Acute Code(s): F31.9 - BIPOLAR DISORDER, UNSPECIFIED SNOMED Code(s): 426151942 Plan: 29 year old female with complicated medical history, imaging revealing question of ovarian thrombosis: - I will discuss further with radiology as patient has had history of GI bleed and with her medical history would like definitive diagnosis of thrombus. However, if thrombus anticoagulation will be recommended it would appear to be provoked as she is on control and has IUD in place at this time, per [employer]. CTA abdomen and pelvis to further evaluate again revealed suspicion of thrombus. Given she does have risk factors for a provoked clot, as well as, dual imaging suspicious for new thrombosis, this would be reasonable to move forward with anticoagulation treatment. Spoke with radiology and unable to definitely state whether this is thrombus or not. PLan: - Obtain venous dopplers - Obtain Iron Studies - Set up for parental Iron in office - Start Eliquis x3 months Physician Attest: I have completed the full history and physical and agree with above dictation, dictated as ascribe.
--- NOTE | 2020-02-29 15:53 | US ---
EXAMINATION TYPE: US venous doppler duplex LE BI DATE OF EXAM: 02/29/2020 2:25 PM COMPARISON: NONE CLINICAL HISTORY: 29-year-old female Ovarian thrombosis. Bilateral leg pain, patient on blood thinner s SIDE PERFORMED: Bilateral TECHNIQUE: The lower extremity deep venous system is examined utilizing real time linear array sonog chet with graded compression, doppler sonography and color-flow sonography. FINDINGS: VESSELS IMAGED: External Iliac Vein (EIV) Common Femoral Vein Deep Femoral Vein Greater Saphenous Vein * Femoral Vein Popliteal Vein Small Saphenous Vein * Proximal Calf Veins (* superficial vessels) Right Leg: Appears negative for DVT Left Leg: Appears negative for DVT IMPRESSION: No evidence for DVT within the bilateral lower extremities imaged from the groin to the upper calves.
[2020-02-29 17:31] LABS: Glucose,Whole Blood 111 mg/dL (75-99)
[2020-02-29 17:40] VITALS: BP 125/82; PULSE 103; RESP 17; TEMP 98.5
[2020-02-29] MEDS ORDERED: APIXABAN 5 MG TAB PO SCH (21:00)
[2020-02-29] MEDS ORDERED: PANTOPRAZOLE 40 MG TABLET PO SCH (21:00)
--- NOTE | 2020-03-01 00:49 | P.DS ---
Providers Date of admission: 02/27/20 03:52 Expected date of discharge: 02/29/20 Attending physician: Efrain Goodman Consults: 02/27/20 04:25 Consult Physician Routine Consulting Provider: Seth Rogers Consult Reason/Comments: Possible Ovarian vein thrombosis Do you want consulting provider notified?: Yes 02/27/20 06:25 Consult Physician Routine Consulting Provider: Dre Mccloud Consult Reason/Comments: Readmit after surgery, UTI and pain Do you want consulting provider notified?: Yes, Notify in am 02/27/20 08:48 Consult Physician Routine Consulting Provider: Sang Mckinley Consult Reason/Comments: ovarian vein thrombosis Do you want consulting provider notified?: Yes Primary care physician: [facility] Course: Chief Complaint: Left lower abdominal pain History of presenting complaint: This is a 29-year-old patient was chronic stable medical conditions include diabetes, fibromyalgia, GERD, hyperlipidemia, irritable bowel syndrome, 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 Bipolar disorder. About a week ago she was discharged to the hospital at that time she had a cystoscopy with a right ureteroscopic retrograde pyelogram lithotripsy stone basketing and a stent was placed by Dr. mccloud the urologist. This was for a 1.1 cm right sided ureteral stone. At the UP junction. Patient states she still has some pain on the right side. Yesterday she developed pain in the left lower quadrant. No nausea vomiting no fever no chills. No change in appetite. No change in bowel pattern. Patient does follow with ZA Viveros at Dr. Hand office. No change in her menstrual pattern. Computed tomography scan of the abdomen did show fluid collection for Gen. surgery was consulted. There is a questionable right ovarian vein thrombosis. Dr. Obregon did review this with radiology-it is felt unlikely to be ovarian vein thrombosis. Today-This also reviewed by Dr. Mckinley from oncology. Concern about venous thrombosis. Patient started on eliquis. DVT in the lower extremity was ruled out. collection of fluid in the left pelvis felt to be related to 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 Dr. Guzman was contacted today.-Advised the patient can be followed up as an outpatient with her neurosurgeon. Patient advised the same. Contact ALONZO. Discussion and discharge planning more than 35 minutes Consultations: Dr. Mckinley from oncology Dr. Obregon from [employer] Dr. Hinojosa from urology Dr. Guzman from surgery Physical examination: VITAL SIGNS: 98.5, 103, 17, 125/82, 96% room air GENERAL: BMI 51.8, laying in bed, not in distress. EYES: Pupils equal. Conjunctiva normal. NECK: JVD not raised; masses not palpable. HEART: First and second heart sounds are normal; no edema. LUNGS: Respiratory rate normal; clear to auscultation. ABDOMEN: Soft, some left lower quadrant tenderness, no guarding rigidity, liver spleen not palpable, no masses palpable. PSYCH: Alert and oriented x3; mood and affect normal. INVESTIGATIONS, reviewed in the clinical context: Repeat computed tomography scan of the abdomen with IV contrast on February [id number] ureteral stent, with some mild right hydronephrosis, left pelvic fluid collection nonspecific findings on the right ovarian vein, fatty liver White count 9.2 hemoglobin 11.9 platelets 340 potassium 3.9 creatinine 0.73 Amylase 45 lipase 326 UA positive for leukoesterase, WBC Computed tomography scan of the abdomen pelvis without IV contrast-liver diffuse fatty infiltration, cholecystectomy findings, and the left lower quadrant is a finding of fluid collection 7.9 x 6.5 x 6.6 cm. Also this some inflammatory changes surrounding the mid to distal right ovarian vein possible. Doppler ultrasound lower extremity-negative for DVT Assessment: -New onset of left lower abdominal pain with a fluid collection in the left lower quadrant. Patient does not have any fever or chills or white count. Possibly related to SURVEYOR CHAIN HELPER shunt -Acute UTI with cystitis- -Recent right ureter double-J stent placement for a UP junction ureteral stone -Nonalcoholic fatty liver disease -Diabetes mellitus type 2 -Chronic fibromyalgia -GERD -Hyperlipidemia -Irritable bowel syndrome -Morbid obesity BMI 51.8 -Bipolar disorder and PTSD -Possible right ovarian vein thrombosis - Disposition: Home Patient Condition at Discharge: Fair Plan - Discharge Summary Discharge Rx Participant: Yes New Discharge Prescriptions: New Apixaban [Eliquis] 10 mg PO BID 7 Days #14 tab Apixaban [Eliquis] 5 mg PO BID 20 Days tab Continue Pravastatin Sodium [Pravachol] 20 mg PO HS LORazepam [Ativan] 1 mg PO HS traZODone HCL 50 mg PO HS buPROPion HCL [Wellbutrin XL] 300 mg PO DAILY metFORMIN HCL 500 mg PO BID Topiramate 50 mg PO HS busPIRone HCL 15 mg PO TID PRN PRN Reason: Anxiety ARIPiprazole [Abilify] 5 mg PO DAILY acetaZOLAMIDE [Diamox] 250 mg PO BID ARIPiprazole 20 mg PO HS Verapamil HCl [Verapamil ER] 180 mg PO HS Amitriptyline HCl [Elavil] 75 mg PO BID Gabapentin 600 mg PO TID Ondansetron [Zofran ODT] 4 mg PO Q8HR PRN PRN Reason: nausea Dawson Fe 05/17 1 tab PO DAILY Folic Acid 1 mg PO HS Etonogestrel [Nexplanon] 68 mg SQ ONCE Tamsulosin [Flomax] 0.4 mg PO DAILY #10 cap OXcarbazepine [Oxtellar Xr] 150 mg PO HS Discontinued hydroCHLOROthiazide 25 mg PO DAILY Discharge Medication List Pravastatin Sodium [Pravachol] 20 mg PO HS 01/20/18 [History] LORazepam [Ativan] 1 mg PO HS 11/24/18 [History] buPROPion HCL [Wellbutrin XL] 300 mg PO DAILY 12/15/19 [History] traZODone HCL 50 mg PO HS 12/15/19 [History] ARIPiprazole 20 mg PO HS 01/09/20 [History] ARIPiprazole [Abilify] 5 mg PO DAILY 01/09/20 [History] Topiramate 50 mg PO HS 01/09/20 [History] acetaZOLAMIDE [Diamox] 250 mg PO BID 01/09/20 [History] busPIRone HCL 15 mg PO TID PRN 01/09/20 [History] metFORMIN HCL 500 mg PO BID 01/09/20 [History] Amitriptyline HCl [Elavil] 75 mg PO BID 01/24/20 [History] Verapamil HCl [Verapamil ER] 180 mg PO HS 01/24/20 [History] Etonogestrel [Nexplanon] 68 mg SQ ONCE 02/20/20 [History] Folic Acid 1 mg PO HS 02/20/20 [History] Gabapentin 600 mg PO TID 02/20/20 [History] Dawson Fe 05/17 1 tab PO DAILY 02/20/20 [History] Ondansetron [Zofran ODT] 4 mg PO Q8HR PRN 02/20/20 [History] Tamsulosin [Flomax] 0.4 mg PO DAILY #10 cap 10/26/20 [Rx] OXcarbazepine [Oxtellar Xr] 150 mg PO HS 02/27/20 [History] Apixaban [Eliquis] 5 mg PO BID 20 Days tab 02/29/20 [Rx] Apixaban [Eliquis] 10 mg PO BID 7 Days #14 tab 02/29/20 [Rx] Follow up Appointment(s)/Referral(s): own-neurosurgeondr [Other] - 03/01/20 12:30 pm (large amount of fluid around lp shunt. CT imaging sent with patient. ) Sang Mckinley MD [STAFF PHYSICIAN] - 1 Week Olvin Keenan MD [Primary Care Provider] - 1-2 days Activity/Diet/Wound Care/Special Instructions: continue consistent carb diet. fluids are encouraged. Follow up with neurosurgeon tomorrow with regards to LP shunt issues. Start eliquis tonight and follow directions for administration. follow up with Dr. Mckinley for furthing tr eatment of ovarian cyst thrombosis. Call family doctor with any questions comments concerns, worsening returning symptoms, fever 101.1 or higher, not tolerating diet or fluids, pain not controlled by pain medications prescribed.
== END 2020-02-29 20:10 | disposition home or self-care (01) ==
LOC: EC 23:17 → 6PED 02-27 03:52
PROVIDERS: ADMIT Hospitalist; ATTEND Hospitalist
DX: R10.32 Left lower quadrant pain (principal); N30.90 Cystitis, unspecified without hematuria; E11.9 Type 2 diabetes mellitus without complications; E78.5 Hyperlipidemia, unspecified; C85.90 Non-Hodgkin lymphoma, unspecified, unspecified site; E66.01 Morbid (severe) obesity due to excess calories; F31.9 Bipolar disorder, unspecified; F43.10 Post-traumatic stress disorder, unspecified; J06.9 Acute upper respiratory infection, unspecified; K21.9 Gastro-esophageal reflux disease without esophagitis; K52.81 Eosinophilic gastritis or gastroenteritis; K58.9 Irritable bowel syndrome, unspecified; K76.0 Fatty (change of) liver, not elsewhere classified; M79.7 Fibromyalgia; N20.2 Calculus of kidney with calculus of ureter; T85.09XA Other mechanical complication of ventricular intracranial (communicating) shunt, initial encounter; Y75.2 Prosthetic and other implants, materials and neurological devices associated with adverse incidents; Z68.43 Body mass index [BMI] 50.0-59.9, adult; Z79.84 Long term (current) use of oral hypoglycemic drugs; Z79.899 Other long term (current) drug therapy; Z82.49 Family history of ischemic heart disease and other diseases of the circulatory system; Z83.3 Family history of diabetes mellitus; Z87.19 Personal history of other diseases of the digestive system
CPT/HCPCS: 96361 ×3; 96365; 96372 ×2; 96375 ×3; 96376 ×3; 99285; 36415; 80053; 82728; 82150; 83540; 83550; 83605; 83615; 83690; 84550; 85025; 86140; 81001; 81025; 82784 ×3; 87086; 76856; 76830; 93970; 74176; 74174; G0378 ×3; J2270; J2405 ×2; J1650 ×3; J0696 ×2; J1170 ×3; C9113; Q9967

== ENCOUNTER 2020-03-04 16:34 | Emergency (ER) | payer OTHER ==
[2020-03-04] MEDS ORDERED: HYDROmorphone 0.5 MG/0.5 ML SYRINGE IVP STA ×2 (16:46→20:20)
[2020-03-04] MEDS ORDERED: SODIUM CHLORIDE 0.9% 500 ML 500 ML IV STA (16:46)
[2020-03-04] MEDS ORDERED: ONDANSETRON 4 MG/2 ML VIAL IVP STA (17:19)
[2020-03-04 17:20] VITALS: RESP 16
[2020-03-04 17:29] LABS: Anisocytosis Slight; Basophils # (A) 0.1 k/uL (0-0.2); Basophils % (A) 1 %; Eosinophils # (A) 0.4 k/uL (0-0.7); Eosinophils % (A) 4 %; HCT 38.3 % (34.0-46.0); HGB 12.1 gm/dL (11.4-16.0); Hypochromasia Slight; Lymphocytes # (A) 2.5 k/uL (1.0-4.8); Lymphocytes % (A) 24 %; MCH 24.5 pg (25.0-35.0); MCHC 31.5 g/dL (31.0-37.0); Mean Platelet Volume 7.3; Microcytosis Slight; Monocytes # (A) 0.4 k/uL (0-1.0); Monocytes % (A) 4 %; Neutrophils # (A) 6.6 k/uL (1.3-7.7); Neutrophils % (A) 66 %; Platelet Count 327 k/uL (150-450); RBC 4.91 m/uL (3.80-5.40); RDW 16.6 % (11.5-15.5); WBC 10.1 k/uL (3.8-10.6)
[2020-03-04 17:37] LABS: ALT 55 U/L (4-34); AST 84 U/L (14-36); African American GFR (CKD) >90 (>60 ml/min/1.73 sqM); Albumin 3.4 g/dL (3.5-5.0); Alkaline Phosphatase 103 U/L (38-126); Amylase 31 U/L (30-110); Anion Gap 6 mmol/L; Blood Urea Nitrogen 15 mg/dL (7-17); Calcium 9.1 mg/dL (8.4-10.2); Carbon Dioxide 22 mmol/L (22-30); Chloride 112 mmol/L (98-107); Glucose 123 mg/dL (74-99); Lipase 54 U/L (23-300); Non-African American GFR(CKD) >90 (>60 ml/min/1.73 sqM); Potassium 4.3 mmol/L (3.5-5.1); Sodium 140 mmol/L (137-145); Total Bilirubin 0.4 mg/dL (0.2-1.3); Total Protein 6.2 g/dL (6.3-8.2)
--- NOTE | 2020-03-04 18:02 | ED ---
Abdominal Pain HPI - General Source: patient Mode of arrival: ambulatory Limitations: no limitations <Valentina Foster - Last Filed: 03/04/20 18:53> <RexterrencePedroDoroteo - Last Filed: 03/04/20 20:40> - General Chief Complaint: Abdominal Pain Stated Complaint: Revisit Abd/Back Pain Time Seen by Provider: 03/04/20 16:44 - History of Present Illness Initial Comments: 29-year-old female presenting today for chief complaint of right lower quadrant abdominal pain. 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 Pt states that she also had recentl right ureter stent placed. She is unsure what is causing the pain. Pt statse she began menstruating Friday, heavy bleeding. Denies lightheadedness/syncope. Patient denies vomiting, upper abdominal pain, chest pain, SOB. leg swelling Patietn denies fever, vaginal disc harge. Patient states that she was told from our last CT there was fluid near site of the LP shunt site, however she followed up with her neurosurgeon this week and was told that his was "normal". Patient states that when discharged from the hospital her pain was 5/10, and now the past few days 9/10. patient was concerned and represented to the hospital for further evaluation. (Valentina Foster) - Related Data Home Medications Medication Instructions Recorded Confirmed Pravastatin Sodium [Pravachol] 20 mg PO HS 01/20/18 03/04/20 LORazepam [Ativan] 1 mg PO HS 11/24/18 03/04/20 buPROPion HCL [Wellbutrin XL] 300 mg PO DAILY 12/15/19 03/04/20 traZODone HCL 50 mg PO HS 12/15/19 03/04/20 ARIPiprazole 20 mg PO HS 01/09/20 03/04/20 ARIPiprazole [Abilify] 5 mg PO DAILY 01/09/20 03/04/20 Topiramate 50 mg PO HS 01/09/20 03/04/20 acetaZOLAMIDE [Diamox] 250 mg PO BID 01/09/20 03/04/20 busPIRone HCL 15 mg PO TID PRN 01/09/20 03/04/20 metFORMIN HCL 500 mg PO BID 01/09/20 03/04/20 Amitriptyline HCl [Elavil] 75 mg PO BID 01/24/20 03/04/20 Verapamil HCl [Verapamil ER] 180 mg PO HS 01/24/20 03/04/20 Etonogestrel [Nexplanon] 68 mg SQ ONCE 02/20/20 03/04/20 Folic Acid 1 mg PO HS 02/20/20 03/04/20 Gabapentin 600 mg PO TID 02/20/20 03/04/20 Dawson Fe 05/17 1 tab PO DAILY 02/20/20 03/04/20 Ondansetron [Zofran ODT] 4 mg PO Q8HR PRN 02/20/20 03/04/20 OXcarbazepine [Oxtellar Xr] 150 mg PO HS 02/27/20 03/04/20 Apixaban [Eliquis] See Taper PO DIRECTED 03/04/20 03/04/20 Previous Rx's Medication Instructions Recorded Ciprofloxacin HCl [Cipro] 250 mg PO BID 1 Days #14 tab 03/01/20 Allergies Allergy/AdvReac Type Severity Reaction Status Date / Time NSAIDS (Non-Steroidal AdvReac Unknown Verified 03/04/20 19:58 Anti-Inflamma Review of Systems ROS Other: All systems not noted in ROS Statement are negative. <Valentina Foster - Last Filed: 03/04/20 18:53> ROS Other: All systems not noted in ROS Statement are negative. <Doroteo Hoskins - Last Filed: 03/04/20 20:40> ROS Statement: Those systems with pertinent positive or pertinent negative responses have been documented in the HPI. Past Medical History Past Medical History: Diabetes Mellitus, Fibromyalgia, GERD/Reflux, GI Bleed, Hyperlipidemia Additional Past Medical History / Comment(s): gallstones, kidney stones, IBS, migraines, tachycardia, Martine- Guevara tear, History of Any Multi-Drug Resistant Organisms: None Reported Past Surgical History: Section, Cholecystectomy, Tubal Ligation Additional Past Surgical History / Comment(s): neck biopsy (lymph node ) d&c; LP shunt May 13 2019 feb 0211/2019 -revision, stent/ lithotripsy on left, cystoscopy, Past Anesthesia/Blood Transfusion Reactions: No Reported Reaction Past Psychological History: Anxiety, Bipolar, Depression, PTSD Smoking Status: Never smoker Past Alcohol Use History: None Reported Past Drug Use History: Marijuana - Past Family History Mother Family Medical History: Diabetes Mellitus, Hyperlipidemia, Hypertension, Myocardial Infarction ([place]) Additional Family Medical History / Comment(s): [place] X 3 Father Family Medical History: Congestive Heart Failure (CHF), Hyperlipidemia, Hypertension, Myocardial Infarction (ID) Additional Family Medical History / Comment(s): mi x 3 Son(s) Family Medical History: No Reported History <Valentina Foster - Last Filed: 03/04/20 18:53> General Exam Limitations: no limitations <Valentina Foster - Last Filed: 03/04/20 18:53> - General Exam Comments Initial Comments: General: The patient is awake and alert, appear slightly uncomfortable Eye: +3 mm pupils are equal, round and reactive to light, extra-ocular movements are intact. No nystagmus. There is normal conjunctiva bilaterally. No signs of icterus. Ears, nose, mouth and throat: There are moist mucous membranes and no oral lesions. Neck: The neck is supple, there is no tenderness or JVD. Cardiovascular: There is a regular rate and rhythm. No murmur, rub or gallop is appreciated. Respiratory: Lungs are clear to auscultation, respirations are non-labored, breath sounds are equal. No wheezes, stridor, rales, or rhonchi. Gastrointestinal: Soft, non-distended, mild RLQ tenderness does not appear in pelvic region, abdomen without masses or organomegaly noted. There is no rebound or guarding present. No CVA tenderness Musculoskeletal: Normal ROM, no tenderness. Strength 5/5. Sensation intact. Radial pulses equal bilaterally 2+. Neurological: A&O x 3. CN II-XII intact grossly, There are no obvious motor or sensory deficits. Coordination appears grossly intact. Speech is normal. Skin: Skin is warm and dry and no rashes or lesions are noted. Psychiatric: Cooperative, appropriate mood & affect, normal judgment. (Valentina Foster) Course <Doroteo Hoskins - Last Filed: 03/04/20 20:40> Vital Signs 03/04/20 03/04/20 03/04/20 16:35 17:17 18:40 Temperature 98.4 F Pulse Rate 119 H 118 H 87 Respiratory 18 16 16 Rate Blood Pressure 121/78 120/72 108/64 O2 Sat by Pulse 96 93 L 97 Oximetry 03/04/20 20:17 Temperature Pulse Rate 98 Respiratory 16 Rate Blood Pressure 122/63 O2 Sat by Pulse 98 Oximetry - Reevaluation(s) Reevaluation #1: 03/04/20 19:22 Case, laboratory results and CT findings were discussed with Dr. Thomas. He does not feel that the patient needs to be admitted to the hospital despite her increased hydronephrosis. He recommends having the patient call Dr. Mccloud's (her urologist's) office Friday to schedule an appointment. He has no further recommendations at this time. 03/04/20 20:36 Patient states that her pain has improved with ED treatment. Patient is aware of her test results and my discussion with Dr. Thomas as above. Patient feels comfortable going home at this time. Patient was counseled about abdominal pain and hydronephrosis. Patient was clearly explained return and follow-up instructions. Patient was instructed to follow up closely with her primary care provider, as well as Dr. Mccloud (her urologist), and to call Friday for an appointment. (Doroteo Hoskins) Medical Decision Making - Lab Data Result diagrams: 03/04/20 16:56 03/04/20 16:56 <Valentina Foster - Last Filed: 03/04/20 18:53> - Lab Data Result diagrams: 03/04/20 16:56 03/04/20 16:56 - Radiology Data Radiology results: report reviewed (pelvic ultrasound: no evidence of ovarian torsion, minimal free fluid, no adnexal mass) <Doroteo Hoskisn - Last Filed: 03/04/20 20:40> - Medical Decision Making 29yo female presenting for cc of rlq/right side pain. 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 Patient followed up with neurosurgery for fluid collection near catheter site (told it was normal). Patient is to d/c control. Patient worsening hydronephrosis right sided. pt US pending, signed patient out pending urology consultation current plan admit for pain control, further evaluation. Benjei Hoskins is taking sign out further management. (Valentina Foster) Patient was endorsed to me by ED ZA Foster secondary to end of her shift. Patient's pelvic ultrasound is fairly unremarkable. I suspect that the patient's pain is likely secondary to stent malfunction/hydronephrosis. Patient is afebrile and without leukocytosis. Patient has a nonsurgical abdominal exam. Patient is currently on her period and this is reflected in her UA findings. Urology (Dr. Thomas) was consulted from the ED, any he has recommended discharging the patient home with close outpatient follow-up with Dr. Mccloud. Patient was instructed to, and agrees to, call Dr. Mccloud's office Friday. Will discharge patient home at this time. (Doroteo Hoskins) - Lab Data Lab Results 03/04/20 03/04/20 03/04/20 Range/Units 16:56 16:56 16:56 WBC 10.1 (3.8-10.6) k/uL RBC 4.91 (3.80-5.40) m/uL Hgb 12.1 (11.4-16.0) gm/dL Hct 38.3 (34.0-46.0) % MCV 78.0 L (80.0-100.0) fL MCH 24.5 L (25.0-35.0) pg MCHC 31.5 (31.0-37.0) g/dL RDW 16.6 H (11.5-15.5) % Plt Count 327 (150-450) k/uL Neutrophils % 66 % Lymphocytes % 24 % Monocytes % 4 % Eosinophils % 4 % Basophils % 1 % Neutrophils # 6.6 (1.3-7.7) k/uL Lymphocytes # 2.5 (1.0-4.8) k/uL Monocytes # 0.4 (0-1.0) k/uL Eosinophils # 0.4 (0-0.7) k/uL Basophils # 0.1 (0-0.2) k/uL Hypochromasia Slight Anisocytosis Slight Microcytosis Slight Sodium 140 (137-145) mmol/L Potassium 4.3 (3.5-5.1) mmol/L Chloride 112 H (98-107) mmol/L Carbon Dioxide 22 (22-30) mmol/L Anion Gap 6 mmol/L BUN 15 (7-17) mg/dL Creatinine 0.71 (0.52-1.04) mg/dL Est GFR (CKD-EPI)AfAm >90 (>60 ml/min/1.73 sqM) Est GFR (CKD-EPI)NonAf >90 (>60 ml/min/1.73 sqM) Glucose 123 H (74-99) mg/dL Lactic Ac Sepsis Rflx Plasma Lactic Acid Darnell (0.7-2.0) mmol/L Calcium 9.1 (8.4-10.2) mg/dL Total Bilirubin 0.4 (0.2-1.3) mg/dL AST 84 H (14-36) U/L ALT 55 H (4-34) U/L Alkaline Phosphatase 103 (38-126) U/L Total Protein 6.2 L (6.3-8.2) g/dL Albumin 3.4 L (3.5-5.0) g/dL Amylase 31 (30-110) U/L Lipase 54 (23-300) U/L Urine Color Dark Red Urine Appearance Turbid H (Clear) Urine pH 6.0 (5.0-8.0) Ur Specific [place] 1.016 (1.001-1.035) Urine Protein 2+ H (Negative) Urine Glucose (UA) Negative (Negative) Urine Ketones Negative (Negative) Urine Blood Large H (Negative) Urine Nitrite Negative (Negative) Urine Bilirubin Negative (Negative) Urine Urobilinogen <2.0 (<2.0) mg/dL Ur Leukocyte Esterase Moderate H (Negative) Urine RBC >182 H (0-5) /hpf Urine WBC 6 H (0-5) /hpf Urine WBC Clumps Occasional H (None) /hpf Ur Squamous Epith Cells 7 H (0-4) /hpf Urine Bacteria Rare H (None) /hpf Urine Mucus Occasional H (None) /hpf Blood Type Blood Type Recheck Bld Type Recheck Status Antibody Screen Spec Expiration Date 03/04/20 03/04/20 03/04/20 Range/Units 16:56 17:26 18:19 WBC (3.8-10.6) k/uL RBC (3.80-5.40) m/uL Hgb (11.4-16.0) gm/dL Hct (34.0-46.0) % MCV (80.0-100.0) fL MCH (25.0-35.0) pg MCHC (31.0-37.0) g/dL RDW (11.5-15.5) % Plt Count (150-450) k/uL Neutrophils % % Lymphocytes % % Monocytes % % Eosinophils % % Basophils % % Neutrophils # (1.3-7.7) k/uL Lymphocytes # (1.0-4.8) k/uL Monocytes # (0-1.0) k/uL Eosinophils # (0-0.7) k/uL Basophils # (0-0.2) k/uL Hypochromasia Anisocytosis Microcytosis Sodium (137-145) mmol/L Potassium (3.5-5.1) mmol/L Chloride (98-107) mmol/L Carbon Dioxide (22-30) mmol/L Anion Gap mmol/L BUN (7-17) mg/dL Creatinine (0.52-1.04) mg/dL Est GFR (CKD-EPI)AfAm (>60 ml/min/1.73 sqM) Est GFR (CKD-EPI)NonAf (>60 ml/min/1.73 sqM) Glucose (74-99) mg/dL Lactic Ac Sepsis Rflx Y Plasma Lactic Acid Darnell 2.6 H* (0.7-2.0) mmol/L Calcium (8.4-10.2) mg/dL Total Bilirubin (0.2-1.3) mg/dL AST (14-36) U/L ALT (4-34) U/L Alkaline Phosphatase (38-126) U/L Total Protein (6.3-8.2) g/dL Albumin (3.5-5.0) g/dL Amylase (30-110) U/L Lipase (23-300) U/L Urine Color Urine Appearance (Clear) Urine pH (5.0-8.0) Ur Specific [place] (1.001-1.035) Urine Protein (Negative) Urine Glucose (UA) (Negative) Urine Ketones (Negative) Urine Blood (Negative) Urine Nitrite (Negative) Urine Bilirubin (Negative) Urine Urobilinogen (<2.0) mg/dL Ur Leukocyte Esterase (Negative) Urine RBC (0-5) /hpf Urine WBC (0-5) /hpf Urine WBC Clumps (None) /hpf Ur Squamous Epith Cells (0-4) /hpf Urine Bacteria (None) /hpf Urine Mucus (None) /hpf Blood Type B Positive Blood Type Recheck B Pos Bld Type Recheck Status No Antibody Screen NEGATIVE Spec Expiration Date 03/07/20202325 Disposition <Valentina Foster - Last Filed: 03/04/20 18:53> Is patient prescribed a controlled substance at d/c from ED?: No Time of Disposition: 20:38 <Doroteo Hoskins - Last Filed: 03/04/20 20:40> Clinical Impression: Abdominal pain, Hydronephrosis, right Disposition: HOME SELF-CARE Condition: Stable Instructions (If sedation given, give patient instructions): Abdominal Pain (ED), Hydronephrosis (ED) Additional Instructions: Return to the ER immediately should you develop new or worsening pain, a fever, shortness of breath, vomiting, feeling dizzy or faint, or new or worsening symptoms. Follow up closely with your primary care provider, as well as your urologist (Dr. Mccloud). Call Friday for an appointment. Referrals: Olvin Keenan MD [Primary Care Provider] - 1-2 days Dre Mccloud MD [STAFF PHYSICIAN] - 1-2 days
[2020-03-04] MEDS ORDERED: SODIUM CHLORIDE 0.9% 1,000 ML IV ONE (18:20)
[2020-03-04] MEDS ORDERED: SODIUM CHLORIDE 0.9% 1,000 ML IV SCH (18:30)
--- NOTE | 2020-03-04 18:34 | CT ---
EXAMINATION TYPE: CT abdomen pelvis w con DATE OF EXAM: 03/04/2020 COMPARISON: 02/27/2020 HISTORY: Right lower quadrant abdominal pain. CT DLP: 2684.4 mGycm Automated exposure control for dose reduction was used. CONTRAST: Performed with IV Contrast, patient injected with 100ml mL of Isovue 300. Lung bases are clear. Heart size is normal. There is no pericardial effusion. There is no pleural eff usion. There are clips from cholecystectomy. Liver spleen stomach pancreas appear intact. Bile ducts are not dilated. There is no adrenal mass. Kidneys have normal size. There is right-sided double-J ureteral stent. Alfie nt appears in fairly good position. There is right-sided hydronephrosis. There is no retroperitoneal adenopathy. Bladder distends smoothly. Uterus is anteverted. There is tiny amount of free fluid in th e pelvis. There is apparent clips from tubal ligation. I see no evidence of a renal stone. There is l eft side intraperitoneal catheter. There is 9 x 6 cm fluid collection in the subcutaneous fat over th e left anterior mid abdomen around the catheter. Unchanged. There is spinal catheter in the lower tho racic spine connected to the peritoneal catheter. There is no mesenteric edema. There is no free air. There is no sign of a bowel obstruction. Appendix is not definitely seen. There is no sign of thickened appendix. Lumbar vertebra have normal alignment. Posterior elements are intact. Bony pelvis is intact. Hip join ts appear normal. IMPRESSION: Right side hydronephrosis increased compared to recent exam that may indicate stent malfunction. Fluid collection in the subcutaneous tissues around the catheter unchanged. This could relate to cath eter leakage.
--- NOTE | 2020-03-04 19:35 | US ---
EXAMINATION TYPE: US transvaginal DATE OF EXAM: 03/04/2020 COMPARISON: Multiple CT's and US's CLINICAL HISTORY: RLQ pain. TECHNIQUE: Transvaginal (TV). Date of LMP: 02/27/2021 EXAM MEASUREMENTS: Uterus: 8.6 x 4.1 x 4.5 cm Endometrial Stripe: 0.7 cm Right Ovary: 2.9 x 2.0 x 2.5 cm Left Ovary: 2.6 x 2.0 x 2.7 cm 1. Uterus: Anteverted wnl 2. Endometrium: wnl 3. Right Ovary: wnl 4. Left Ovary: wnl Spectral, color and waveform doppler imaging shows good arterial and venous flow within the ovaries ; there is no evidence for ovarian torsion. 5. Bilateral Adnexa: wnl 6. Posterior cul-de-sac: small amount of free fluid IMPRESSION: No evidence of ovarian torsion. Minimal free fluid. No adnexal mass.
[2020-03-04 20:16] LABS: Appearance,Urine Turbid (Clear); Bacteria,Urine Rare /hpf; Bilirubin,Urine Negative (Negative); Blood,Urine Large (Negative); Color,Urine Dark Red; Glucose,Urine (UA) Negative (Negative); Ketones,Urine Negative (Negative); Leukocyte Esterase,Urine Moderate (Negative); Mucus,Urine Occasional /hpf; Nitrite,Urine Negative (Negative); Protein,Urine 2+ (Negative); RBC,Urine >182 /hpf (0-5); Squamous Epithelial Cell,Urine 7 /hpf (0-4); Urobilinogen,Urine <2.0 mg/dL (<2.0); WBC,Urine 6 /hpf (0-5)
[2020-03-04 20:18] VITALS: PULSE 98
[2020-03-04 20:29] LABS: Specific Gravity,Urine 1.016 (1.001-1.035)
[2020-03-04] MEDS ORDERED: ACET/COD 300 MG/30 MG STARTER PACK 6 TAB BTL PO STA (20:39)
[2020-03-04 20:56] VITALS: BP 118/60; TEMP 98.3
== END 2020-03-04 20:56 | disposition home or self-care (01) ==
LOC: EC 16:34
DX: N13.30 Unspecified hydronephrosis (principal); R10.31 Right lower quadrant pain; E11.9 Type 2 diabetes mellitus without complications; M79.7 Fibromyalgia; E78.5 Hyperlipidemia, unspecified; F41.9 Anxiety disorder, unspecified; F31.9 Bipolar disorder, unspecified; F43.10 Post-traumatic stress disorder, unspecified; Z79.899 Other long term (current) drug therapy; Z79.01 Long term (current) use of anticoagulants; Z79.84 Long term (current) use of oral hypoglycemic drugs; Z88.6 Allergy status to analgesic agent; Z87.442 Personal history of urinary calculi; Z90.49 Acquired absence of other specified parts of digestive tract; Z98.51 Tubal ligation status; Z87.19 Personal history of other diseases of the digestive system; Z98.890 Other specified postprocedural states
CPT/HCPCS: 36415; 86900; 86901; 80053; 82150; 83605; 83690; 85025; 86850; 81001; 81025; 87040; 93975; 76830; 74177; 99284; 96374; 96375; 96376; 96361 ×3; J2405; J1170; Q9967

== ENCOUNTER 2020-03-15 18:54 | Observation (INO) | payer OTHER ==
[2020-03-15 20:23] LABS: Anisocytosis Slight; Basophils % (A) 0 %; Eosinophils # (A) 0.5 k/uL (0-0.7); Eosinophils % (A) 4 %; HCT 32.9 % (34.0-46.0); HGB 10.6 gm/dL (11.4-16.0); Hypochromasia Slight; Lymphocytes # (A) 2.6 k/uL (1.0-4.8); Lymphocytes % (A) 24 %; MCH 24.8 pg (25.0-35.0); MCHC 32.1 g/dL (31.0-37.0); MCV 77.1 fL (80.0-100.0); Mean Platelet Volume 7.1; Microcytosis Slight; Monocytes # (A) 0.4 k/uL (0-1.0); Monocytes % (A) 4 %; Neutrophils # (A) 7.3 k/uL (1.3-7.7); Neutrophils % (A) 67 %; Platelet Count 324 k/uL (150-450); RBC 4.27 m/uL (3.80-5.40); RDW 17.5 % (11.5-15.5); WBC 10.9 k/uL (3.8-10.6)
[2020-03-15 20:31] LABS: ALT 44 U/L (4-34); AST 43 U/L (14-36); African American GFR (CKD) >90 (>60 ml/min/1.73 sqM); Albumin 3.4 g/dL (3.5-5.0); Alkaline Phosphatase 116 U/L (38-126); Amylase 33 U/L (30-110); Anion Gap 4 mmol/L; Blood Urea Nitrogen 15 mg/dL (7-17); Calcium 8.9 mg/dL (8.4-10.2); Carbon Dioxide 25 mmol/L (22-30); Chloride 109 mmol/L (98-107); Glucose 117 mg/dL (74-99); Lipase 75 U/L (23-300); Non-African American GFR(CKD) >90 (>60 ml/min/1.73 sqM); Potassium 4.3 mmol/L (3.5-5.1); Sodium 138 mmol/L (137-145); Total Bilirubin 0.4 mg/dL (0.2-1.3); Total Protein 6.1 g/dL (6.3-8.2)
[2020-03-15 20:39] LABS: INR 0.9 (<1.2); Partial Thromboplastin Time 24.4 sec (22.0-30.0); Prothrombin Time 9.6 sec (9.0-12.0)
[2020-03-15] MEDS ORDERED: HYDROmorphone 0.5 MG/0.5 ML SYRINGE IVP STA (20:41)
[2020-03-15] MEDS ORDERED: ONDANSETRON 4 MG/2 ML VIAL IVP STA (20:41)
[2020-03-15] MEDS ORDERED: PANTOPRAZOLE 40 MG/10 ML VIAL IVP STA (20:41)
[2020-03-15] MEDS ORDERED: SODIUM CHLORIDE 0.9% 500 ML 500 ML IV STA (20:41)
[2020-03-15] MEDS ORDERED: NALOXONE 0.4 MG/ML 1 ML VIAL IV PRN (21:33)
[2020-03-15] MEDS ORDERED: busPIRone HCl 5 MG TAB PO PRN (21:35)
--- NOTE | 2020-03-15 21:38 | ED ---
General Adult HPI - General Chief complaint: Nausea/Vomiting/Diarrhea Stated complaint: vomiting blood/abd pain Time Seen by Provider: 03/15/20 20:24 Source: patient, RN notes reviewed Mode of arrival: ambulatory Limitations: no limitations - History of Present Illness Initial comments: 30-year-old female with a past medical history of diabetes mellitus, fibromyalgia, GERD, GI bleed, hyperlipidemia, Martine-Guevara tear presents to the emergency room for a chief complaint of "vomiting blood." Patient reports that she had 3 episodes of vomiting bright red blood today. Patient reports that it did seem like a lot of blood at the time. Patient reports that she is also having abdominal pain however this has been chronic over the past several weeks and patient has had extensive workup for this. She had a right ureteral stent removed recently. 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 Patient has no other complaints at this time including shortness of breath, chest pain, abdominal pain, nausea or vomiting, headache, or visual changes. - Related Data Home Medications Medication Instructions Recorded Confirmed Pravastatin Sodium [Pravachol] 20 mg PO HS 01/20/18 03/15/20 LORazepam [Ativan] 1 mg PO HS 11/24/18 03/15/20 buPROPion HCL [Wellbutrin XL] 300 mg PO DAILY 12/15/19 03/15/20 traZODone HCL 50 mg PO HS 12/15/19 03/15/20 ARIPiprazole 20 mg PO HS 01/09/20 03/15/20 ARIPiprazole [Abilify] 5 mg PO DAILY 01/09/20 03/15/20 Topiramate 50 mg PO HS 01/09/20 03/15/20 acetaZOLAMIDE [Diamox] 500 mg PO BID 01/09/20 03/15/20 busPIRone HCL 15 mg PO TID PRN 01/09/20 03/15/20 metFORMIN HCL 500 mg PO BID 01/09/20 03/15/20 Amitriptyline HCl [Elavil] 75 mg PO BID 01/24/20 03/15/20 Verapamil HCl [Verapamil ER] 180 mg PO HS 01/24/20 03/15/20 Etonogestrel [Nexplanon] 68 mg SQ ONCE 02/20/20 03/15/20 Folic Acid 1 mg PO HS 02/20/20 03/15/20 Gabapentin 600 mg PO TID 02/20/20 03/15/20 Ondansetron [Zofran ODT] 4 mg PO Q8HR PRN 02/20/20 03/15/20 OXcarbazepine [Oxtellar Xr] 150 mg PO HS 02/27/20 03/15/20 Apixaban [Eliquis] See Taper PO DIRECTED 03/04/20 03/15/20 Melatonin 10 mg PO HS PRN 03/15/20 03/15/20 hydroCHLOROthiazide 25 mg PO DAILY 03/15/20 03/15/20 Allergies Allergy/AdvReac Type Severity Reaction Status Date / Time NSAIDS (Non-Steroidal AdvReac Unknown Verified 03/15/20 21:55 Anti-Inflamma Review of Systems ROS Statement: Those systems with pertinent positive or pertinent negative responses have been documented in the HPI. ROS Other: All systems not noted in ROS Statement are negative. Past Medical History Past Medical History: Diabetes Mellitus, Fibromyalgia, GERD/Reflux, GI Bleed, Hyperlipidemia Additional Past Medical History / Comment(s): gallstones, kidney stones, IBS, migraines, tachycardia, Martine- Guevara tear, History of Any Multi-Drug Resistant Organisms: None Reported Past Surgical History: Section, Cholecystectomy, Tubal Ligation Additional Past Surgical History / Comment(s): neck biopsy (lymph node ) d&c; LP shunt May 13 2019 feb 0211/2019 -revision, stent/ lithotripsy on left, cystoscopy, Past Anesthesia/Blood Transfusion Reactions: No Reported Reaction Past Psychological History: Anxiety, Bipolar, Depression, PTSD Smoking Status: Never smoker Past Alcohol Use History: None Reported Past Drug Use History: Marijuana - Past Family History Mother Family Medical History: Diabetes Mellitus, Hyperlipidemia, Hypertension, Myocardial Infarction ([place]) Additional Family Medical History / Comment(s): [place] X 3 Father Family Medical History: Congestive Heart Failure (CHF), Hyperlipidemia, Hypertension, Myocardial Infarction (NE) Additional Family Medical History / Comment(s): mi x 3 Son(s) Family Medical History: No Reported History General Exam Limitations: no limitations General appearance: alert, in no apparent distress Head exam: Present: atraumatic, normocephalic, normal inspection Eye exam: Present: normal appearance, PERRL, EOMI. Absent: scleral icterus, conjunctival injection, periorbital swelling ENT exam: Present: normal exam, mucous membranes moist Neck exam: Present: normal inspection, full ROM. Absent: tenderness, meningismus, lymphadenopathy Respiratory exam: Present: normal lung sounds bilaterally. Absent: respiratory distress, wheezes, rales, rhonchi, stridor Cardiovascular Exam: Present: regular rate, normal rhythm, normal heart sounds. Absent: systolic murmur, diastolic murmur, rubs, gallop, clicks GI/Abdominal exam: Present: soft, normal bowel sounds. Absent: distended, tenderness (Generalized abdominal pain without any focal abdominal tenderness.), guarding, rebound, rigid Course Vital Signs 03/15/20 03/15/20 19:37 20:40 Temperature 99.3 F 98.9 F Pulse Rate 122 H 112 H Respiratory 18 18 Rate Blood Pressure 123/78 113/59 O2 Sat by Pulse 100 96 Oximetry Medical Decision Making - Medical Decision Making Vitals stable. Patient is sightly tachycardic CBC does show mild anemia with a hemoglobin of 10.6. This is decreased from 12.1 about 10 days ago. CMP unremarkable. Given patient is on blood thinner as is experiencing hematemesis at home she will be admitted for GI consultation 8. Protonix started. Dr. Goodman did request I put in home medications and hold eliquis. He did accept t he admission. - Lab Data Result diagrams: 03/15/20 20:15 03/15/20 20:15 Lab Results 03/15/20 03/15/20 03/15/20 Range/Units 20:15 20:15 20:15 WBC 10.9 H (3.8-10.6) k/uL RBC 4.27 (3.80-5.40) m/uL Hgb 10.6 L (11.4-16.0) gm/dL Hct 32.9 L (34.0-46.0) % MCV 77.1 L (80.0-100.0) fL MCH 24.8 L (25.0-35.0) pg MCHC 32.1 (31.0-37.0) g/dL RDW 17.5 H (11.5-15.5) % Plt Count 324 (150-450) k/uL MPV 7.1 Neutrophils % 67 % Lymphocytes % 24 % Monocytes % 4 % Eosinophils % 4 % Basophils % 0 % Neutrophils # 7.3 (1.3-7.7) k/uL Lymphocytes # 2.6 (1.0-4.8) k/uL Monocytes # 0.4 (0-1.0) k/uL Eosinophils # 0.5 (0-0.7) k/uL Basophils # 0.0 (0-0.2) k/uL Hypochromasia Slight Anisocytosis Slight Microcytosis Slight PT 9.6 (9.0-12.0) sec INR 0.9 (<1.2) APTT 24.4 (22.0-30.0) sec Sodium 138 (137-145) mmol/L Potassium 4.3 (3.5-5.1) mmol/L Chloride 109 H (98-107) mmol/L Carbon Dioxide 25 (22-30) mmol/L Anion Gap 4 mmol/L BUN 15 (7-17) mg/dL Creatinine 0.68 (0.52-1.04) mg/dL Est GFR (CKD-EPI)AfAm >90 (>60 ml/min/1.73 sqM) Est GFR (CKD-EPI)NonAf >90 (>60 ml/min/1.73 sqM) Glucose 117 H (74-99) mg/dL Plasma Lactic Acid Darnell (0.7-2.0) mmol/L Calcium 8.9 (8.4-10.2) mg/dL Total Bilirubin 0.4 (0.2-1.3) mg/dL AST 43 H (14-36) U/L ALT 44 H (4-34) U/L Alkaline Phosphatase 116 (38-126) U/L Total Protein 6.1 L (6.3-8.2) g/dL Albumin 3.4 L (3.5-5.0) g/dL Amylase 33 (30-110) U/L Lipase 75 (23-300) U/L /18/20 Range/Units 20:15 WBC (3.8-10.6) k/uL RBC (3.80-5.40) m/uL Hgb (11.4-16.0) gm/dL Hct (34.0-46.0) % MCV (80.0-100.0) fL MCH (25.0-35.0) pg MCHC (31.0-37.0) g/dL RDW (11.5-15.5) % Plt Count (150-450) k/uL MPV Neutrophils % % Lymphocytes % % Monocytes % % Eosinophils % % Basophils % % Neutrophils # (1.3-7.7) k/uL Lymphocytes # (1.0-4.8) k/uL Monocytes # (0-1.0) k/uL Eosinophils # (0-0.7) k/uL Basophils # (0-0.2) k/uL Hypochromasia Anisocytosis Microcytosis PT (9.0-12.0) sec INR (<1.2) APTT (22.0-30.0) sec Sodium (137-145) mmol/L Potassium (3.5-5.1) mmol/L Chloride (98-107) mmol/L Carbon Dioxide (22-30) mmol/L Anion Gap mmol/L BUN (7-17) mg/dL Creatinine (0.52-1.04) mg/dL Est GFR (CKD-EPI)AfAm (>60 ml/min/1.73 sqM) Est GFR (CKD-EPI)NonAf (>60 ml/min/1.73 sqM) Glucose (74-99) mg/dL Plasma Lactic Acid Darnell 1.1 (0.7-2.0) mmol/L Calcium (8.4-10.2) mg/dL Total Bilirubin (0.2-1.3) mg/dL AST (14-36) U/L ALT (4-34) U/L Alkaline Phosphatase (38-126) U/L Total Protein (6.3-8.2) g/dL Albumin (3.5-5.0) g/dL Amylase (30-110) U/L Lipase (23-300) U/L Disposition Clinical Impression: Hematemesis Disposition: ADMITTED IP TO THIS HOSP Condition: Fair Is patient prescribed a controlled substance at d/c from ED?: No Time of Disposition: 21:38
[2020-03-15 22:40] LABS: Appearance,Urine Turbid (Clear); Bilirubin,Urine Negative (Negative); Blood,Urine Negative (Negative); Color,Urine Yellow; Glucose,Urine (UA) Negative (Negative); Ketones,Urine Negative (Negative); Leukocyte Esterase,Urine Negative (Negative); Mucus,Urine Rare /hpf; Nitrite,Urine Negative (Negative); Protein,Urine Trace (Negative); RBC,Urine 1 /hpf (0-5); Specific Gravity,Urine 1.022 (1.001-1.035); Squamous Epithelial Cell,Urine <1 /hpf (0-4); Urobilinogen,Urine <2.0 mg/dL (<2.0)
[2020-03-16] MEDS: GABAPENTIN 300 MG CAP PO SCH ×4 (00:27→21:53)
[2020-03-16] MEDS: HYDROmorphone 0.5 MG/0.5 ML SYRINGE IVP PRN ×7 (00:28→20:45)
[2020-03-16] MEDS: SODIUM CHLORIDE 0.9% 1,000 ML IV SCH ×3 (00:59→23:41)
[2020-03-16] MEDS: AMITRIPTYLINE HCL 25 MG TAB PO SCH ×3 (01:00→20:42)
[2020-03-16] MEDS: ONDANSETRON 4 MG/2 ML VIAL IVP PRN (06:11)
[2020-03-16 07:10] LABS: Glucose,Whole Blood 93 mg/dL (75-99)
[2020-03-16] MEDS: acetaZOLAMIDE 250 MG TAB PO SCH ×2 (07:46→21:53)
[2020-03-16] MEDS: PANTOPRAZOLE 40 MG/10 ML VIAL IV SCH (07:49)
[2020-03-16] MEDS: ARIPiprazole 5 MG TAB PO SCH (08:35)
[2020-03-16] MEDS: buPROPion XL 300 MG TAB.ER.24H PO SCH (08:35)
[2020-03-16] MEDS: metFORMIN 500 MG TAB PO SCH ×2 (08:36→20:40)
[2020-03-16] MEDS ORDERED: AMITRIPTYLINE HCL 25 MG TAB PO SCH (09:00)
[2020-03-16 10:21] LABS: Anisocytosis Slight; HCT 32.7 % (34.0-46.0); HGB 10.2 gm/dL (11.4-16.0); Hypochromasia Marked; MCH 25.3 pg (25.0-35.0); MCHC 31.1 g/dL (31.0-37.0); MCV 81.2 fL (80.0-100.0); Mean Platelet Volume 6.9; Platelet Count 260 k/uL (150-450); RBC 4.02 m/uL (3.80-5.40); RDW 17.7 % (11.5-15.5); WBC 7.9 k/uL (3.8-10.6)
[2020-03-16 10:30] LABS: ALT 46 U/L (4-34); AST 54 U/L (14-36); African American GFR (CKD) >90 (>60 ml/min/1.73 sqM); Albumin 3.1 g/dL (3.5-5.0); Albumin/Globulin Ratio 1.2; Alkaline Phosphatase 114 U/L (38-126); Anion Gap 4 mmol/L; Blood Urea Nitrogen 12 mg/dL (7-17); Calcium 8.5 mg/dL (8.4-10.2); Carbon Dioxide 23 mmol/L (22-30); Chloride 111 mmol/L (98-107); Globulin 2.5 g/dL; Glucose 99 mg/dL (74-99); Non-African American GFR(CKD) >90 (>60 ml/min/1.73 sqM); Potassium 4.1 mmol/L (3.5-5.1); Sodium 138 mmol/L (137-145); Total Bilirubin 0.5 mg/dL (0.2-1.3); Total Protein 5.6 g/dL (6.3-8.2)
[2020-03-16 11:13] LABS: Glucose,Whole Blood 108 mg/dL (75-99)
--- NOTE | 2020-03-16 15:29 | CONS ---
CONSULTATION DATE OF DICTATION: 03/16/2020 REASON FOR CONSULTATION: Acute upper GI bleed. HISTORY OF PRESENT ILLNESS: The patient is a 30-year-old pleasant white female with history of diabetes mellitus, fibromyalgia, history of irritable bowel syndrome, and recently diagnosed with ovarian vein thrombosis, who was started on Eliquis about 3 weeks ago. She came to the emergency room complaining of hematemesis. She had 3 episodes of maroon-colored hematemesis yesterday, became very concerned, and hence came into the emergency room and was subsequently admitted to the hospital for further evaluation. She does complain of diffuse abdominal pain. She has been having alternating diarrhea and constipation from prior history of irritable bowel syndrome. About 3 weeks ago, she was diagnosed with a right ureteral calculus, for which she initially had a stent placed and subsequently removed. Around the same time she was diagnosed with ovarian venous thrombosis and was started on Eliquis. No prior history of peptic ulcer disease or recent NSAID use. PAST MEDICAL HISTORY: Her past medical history is significant for GERD, fibromyalgia, irritable bowel syndrome, ovarian vein thrombosis, history of GI bleed in the past with EGD and colonoscopy at [facility] in March of 2019, history of hypertension, hyperlipidemia and morbid obesity. PAST SURGICAL HISTORY: , cholecystectomy, tubal ligation, ureteral stent with lithotripsy, cystoscopy. MEDICATIONS: Medications at home include Abilify, topiramate, Diamox, buspirone, metformin, Elavil, verapamil, folic acid, gabapentin, Zofran, oxcarbazepine, Eliquis, melatonin, hydrochlorothiazide, pravastatin, Ativan, Wellbutrin, trazodone, aripiprazole. ALLERGIES: NSAIDS. SOCIAL HISTORY: No smoking. No alcohol use. FAMILY HISTORY: Mother has diabetes mellitus, hypertension and hyperlipidemia. Father has congestive heart failure, hypertension, hyperlipidemia. REVIEW OF SYSTEMS: CARDIOPULMONARY: No chest pain or shortness of breath. GENITOURINARY: No dysuria or hematuria. MUSCULOSKELETAL: Severe fibromyalgia. NEUROLOGY: Unremarkable. PSYCHIATRY: Unremarkable. ENT/VISION: Unremarkable. CONSTITUTIONAL: No recent weight loss. No fever, chills, night sweats. GI: As mentioned above. ONCOLOGY: Unremarkable. PHYSICAL EXAMINATION: She appears comfortable. No apparent distress. VITAL SIGNS: Stable. Blood pressure is 128/77, pulse rate 102, temperature 98.7. HEENT examination unremarkable. Conjunctivae pink. Sclerae anicteric. Oral cavity no lesions. NECK: No JVD or lymph node enlargement. CHEST: Clear to auscultation. HEART: Regular rate and rhythm. ABDOMEN: Soft. There was mild diffuse tenderness throughout the abdomen. EXTREMITIES: No pedal edema. SKIN: No rashes. NEUROLOGIC: Alert and oriented x3. No focal deficits. LABS: Labs from yesterday showed WBC 10.9; today it is 7.9, hemoglobin 10.2, platelets normal. Basic metabolic panel is within normal limits. Hemoglobin 10.2. BUN and creatinine are normal. AST and ALT of 43 and 44, respectively. T-bilirubin and alkaline phosphatase are within normal limits. Amylase and lipase normal. IMPRESSION: 1. Acute upper gastrointestinal bleed with 3 episodes of maroon-colored emesis since yesterday. The patient has been on Eliquis for ovarian venous thrombosis diagnosed about 3 weeks ago. She had recurrent upper GI bleed in the past and she states that she had an upper endoscopy at [facility] last year; and no reason noted. At one point she was told she had a Martine-Guevara tear. Hemoglobin is stable at 10.4 g/dL. 2. Ovarian venous thrombosis, on Eliquis, currently on hold. 3. History of fibromyalgia. 4. Recent ureteral stent removal for kidney stone. RECOMMENDATIONS: 1. Start her on Protonix 40 mg q.12 hours. 2. CBC on a daily basis. 3. Will continue to hold Eliquis. 4. Will proceed with an upper endoscopy tomorrow. Discussed with the patient risks, benefits and complications, and she is agreeable with it. Thank you for this consultation. MMODL / IJN: [id number] /
[2020-03-16] MEDS: OXYMETAZOLINE 0.05% NASL SPRAY 1 SPRAY BOTTLE NASAL SCH (16:04)
[2020-03-16 16:31] LABS: Glucose,Whole Blood 114 mg/dL (75-99)
[2020-03-16 20:51] LABS: Glucose,Whole Blood 121 mg/dL (75-99)
[2020-03-16] MEDS ORDERED: TOPIRAMATE 25 MG TAB PO SCH (21:00)
[2020-03-16] MEDS ORDERED: FOLIC ACID 1 MG TAB PO SCH (21:00)
[2020-03-16] MEDS ORDERED: VERAPAMIL SR 180 MG TABLET.ER PO SCH (21:00)
[2020-03-16] MEDS ORDERED: PRAVASTATIN SODIUM 20 MG TAB PO SCH (21:00)
[2020-03-16] MEDS ORDERED: OXCARBAZEPINE 150 MG PO SCH (21:00)
[2020-03-16] MEDS ORDERED: LORazepam 1 MG TAB PO SCH (21:00)
[2020-03-16] MEDS ORDERED: traZODone HCL 50 MG TAB PO SCH (21:45)
--- NOTE | 2020-03-16 23:13 | P.HPIM ---
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 Bipolar disorder. Right ureteral stone with stent placement. About a month ago came to the hospital with abdominal pain. There is a question about ovarian vein thrombosis. Started on eliquis per oncology team. Patient also to collection of fluid in the left LS film pelvis felt to be related to SPREADER OPERATOR shunt. Patient was to follow-up with her own neurosurgeon. Patient now presents with vomiting some blood earlier. Patient's had some chronic abdominal pain. No dizziness or lightheadedness. No fever no chills. Patient's eliquis was held. GI was consulted. Review of systems: GEN.: Tired EYES: None HEENT: None NECK: None RESPIRATORY: None CARDIOVASCULAR: None GASTROINTESTINAL: As above GENITOURINARY: None MUSCULOSKELETAL: Chronic joint pains LYMPHATICS: None HEMATOLOGICAL: None PSYCHIATRY: None NEUROLOGICAL: None Past medical history to include: Diabetes, fibromyalgia, GERD, hyperlipidemia, gallstones, kidney stones, irritable bowel syndrome, Martine-Guevara tear, SPREADER OPERATOR shunt, bipolar disorder, PTSD. Ureteral stent on the right Social history: Patient lives with her mother and 4 children. No history of smoking or alcohol. Physical examination: VITAL SIGNS: 99.3, 112, 18, 113/59, 96% room air GENERAL: BMI 51.8, laying in bed, not in distress. EYES: Pupils equal. Conjunctiva normal. HEENT: External appearance of nose and ears normal, oral cavity grossly normal. NECK: JVD not raised; masses not palpable. HEART: First and second heart sounds are normal; no edema. LUNGS: Respiratory rate normal; clear to auscultation. ABDOMEN: Soft, upper abdomen tenderness, no guarding rigidity, liver spleen not palpable, no masses palpable. PSYCH: Alert and oriented x3; mood and affect anxious. NEUROLOGICAL: Cranial nerves grossly intact; no facial asymmetry, power and sensation grossly intact. LYMPHATICS: No lymph nodes palpable in the axilla and neck INVESTIGATIONS, reviewed in the clinical context: White count 7.9 hemoglobin 10.2 platelets 260 potassium 4.1 creatinine 0.79 Previous hemoglobin: 12.1 on March 04 Assessment: -Patient presented with vomiting blood. Has been on eliquis has been held. GI consulted. -Recent left lower abdominal pain with a fluid collection in the left lower quadrant. Possibly related to SPREADER OPERATOR shunt -Recent right ureter double-J stent placement for a UP junction ureteral stone -Nonalcoholic fatty liver disease -Diabetes mellitus type 2 -Chronic fibromyalgia -GERD -Hyperlipidemia -Irritable bowel syndrome -Morbid obesity BMI 51.8 -Bipolar disorder and PTSD -Possible right ovarian vein thrombosis - Plan: Eliquis was held. Home medications resumed. Put him IV fluids. GI consulted. Care was discussed with the patient. Past Medical History Past Medical History: Diabetes Mellitus, Fibromyalgia, GERD/Reflux, GI Bleed, Hyperlipidemia Additional Past Medical History / Comment(s): gallstones, kidney stones, IBS, migraines, tachycardia, Martine- Guevara tear, History of Any Multi-Drug Resistant Organisms: None Reported Past Surgical History: Section, Cholecystectomy, Tubal Ligation Additional Past Surgical History / Comment(s): neck biopsy (lymph node ) d&c; LP shunt May 13 2019 feb 0211/2019 -revision, stent/ lithotripsy on left, cystoscopy, Past Anesthesia/Blood Transfusion Reactions: No Reported Reaction Past Psychological History: Anxiety, Bipolar, Depression, PTSD Smoking Status: Never smoker Past Alcohol Use History: None Reported Past Drug Use History: Marijuana - Past Family History Mother Family Medical History: Diabetes Mellitus, Hyperlipidemia, Hypertension, Myocardial Infarction ([place]) Additional Family Medical History / Comment(s): [place] X 3 Father Family Medical History: Congestive Heart Failure (CHF), Hyperlipidemia, Hypertension, Myocardial Infarction ([place]) Additional Family Medical History / Comment(s): [place] x 3 Son(s) Family Medical History: No Reported History Medications and Allergies Home Medications Medication Instructions Recorded Confirmed Type Pravastatin Sodium [Pravachol] 20 mg PO HS 01/20/18 03/15/20 History LORazepam [Ativan] 1 mg PO HS 11/24/18 03/15/20 History buPROPion HCL [Wellbutrin XL] 300 mg PO DAILY 12/15/19 03/15/20 History traZODone HCL 50 mg PO HS 12/15/19 03/15/20 History ARIPiprazole 20 mg PO HS 01/09/20 03/15/20 History ARIPiprazole [Abilify] 5 mg PO DAILY 01/09/20 03/15/20 History Topiramate 50 mg PO HS 01/09/20 03/15/20 History acetaZOLAMIDE [Diamox] 500 mg PO BID 01/09/20 03/15/20 History busPIRone HCL 15 mg PO TID PRN 01/09/20 03/15/20 History metFORMIN HCL 500 mg PO BID 01/09/20 03/15/20 History Amitriptyline HCl [Elavil] 75 mg PO BID 01/24/20 03/15/20 History Verapamil HCl [Verapamil ER] 180 mg PO HS 01/24/20 03/15/20 History Etonogestrel [Nexplanon] 68 mg SQ ONCE 02/20/20 03/15/20 History Folic Acid 1 mg PO HS 02/20/20 03/15/20 History Gabapentin 600 mg PO TID 02/20/20 03/15/20 History Ondansetron [Zofran ODT] 4 mg PO Q8HR PRN 02/20/20 03/15/20 History OXcarbazepine [Oxtellar Xr] 150 mg PO HS 02/27/20 03/15/20 History Apixaban [Eliquis] See Taper PO DIRECTED 03/04/20 03/15/20 History Melatonin 10 mg PO HS PRN 03/15/20 03/15/20 History hydroCHLOROthiazide 25 mg PO DAILY 03/15/20 03/15/20 History Allergies Allergy/AdvReac Type Severity Reaction Status Date / Time NSAIDS (Non-Steroidal AdvReac Unknown Verified 03/15/20 21:55 Anti-Inflamma Physical Exam Vitals: Vital Signs Temp Pulse Pulse Resp BP BP Pulse Ox 03/16/20 03:15 98.7 F 102 H 16 128/77 99 03/16/20 01:38 98.7 F 103 H 99 03/15/20 22:52 98.7 F 119 H 16 109/70 99 03/15/20 22:30 111 H 03/15/20 20:40 98.9 F 112 H 18 113/59 96 03/15/20 19:37 99.3 F 122 H 18 123/78 100 Intake and Output 03/15/20 03/16/20 03/16/20 22:59 06:59 14:59 Intake Total 375 Balance 375 Intake: Intake, IV Titration 375 Amount Sodium Chloride 0.9% 1, 375 000 ml @ 75 mls/hr IV . [id number] [facility] Rx#:[id number] Other: Voiding Method Toilet Weight 128.367 kg Results CBC & Chem 7: 03/16/20 09:53 03/16/20 09:53 Labs: Abnormal Lab Results - Last 24 Hours (Table) 03/15/20 03/15/20 03/15/20 Range/Units 20:15 20:15 21:33 WBC 10.9 H (3.8-10.6) k/uL Hgb 10.6 L (11.4-16.0) gm/dL Hct 32.9 L (34.0-46.0) % MCV 77.1 L (80.0-100.0) fL MCH 24.8 L (25.0-35.0) pg RDW 17.5 H (11.5-15.5) % Chloride 109 H (98-107) mmol/L Glucose 117 H (74-99) mg/dL POC Glucose (mg/dL) (75-99) mg/dL AST 43 H (14-36) U/L ALT 44 H (4-34) U/L Total Protein 6.1 L (6.3-8.2) g/dL Albumin 3.4 L (3.5-5.0) g/dL Urine Appearance Turbid H (Clear) Urine Protein Trace H (Negative) Urine Mucus Rare H (None) /hpf 03/16/20 03/16/20 03/16/20 Range/Units 09:53 09:53 11:12 WBC (3.8-10.6) k/uL Hgb 10.2 L (11.4-16.0) gm/dL Hct 32.7 L (34.0-46.0) % MCV (80.0-100.0) fL MCH (25.0-35.0) pg RDW 17.7 H (11.5-15.5) % Chloride 111 H (98-107) mmol/L Glucose (74-99) mg/dL POC Glucose (mg/dL) 108 H (75-99) mg/dL AST 54 H (14-36) U/L ALT 46 H (4-34) U/L Total Protein 5.6 L (6.3-8.2) g/dL Albumin 3.1 L (3.5-5.0) g/dL Urine Appearance (Clear) Urine Protein (Negative) Urine Mucus (None) /hpf Thrombosis Risk Factor Assmnt - Choose All That Apply Any of the Below Risk Factors Present?: Yes Each Factor Represents 1 point: Obesity (BMI >25) Other Risk Factors: No Thrombosis Risk Factor Assessment Total Risk Factor Score: 1 Thrombosis Risk Factor Assessment Level: Low Risk
[2020-03-17] MEDS: HYDROmorphone 0.5 MG/0.5 ML SYRINGE IVP PRN ×5 (03:31→16:45)
[2020-03-17] MEDS: ONDANSETRON 4 MG/2 ML VIAL IVP PRN (05:54)
[2020-03-17 05:58] LABS: Anisocytosis Slight; HGB 9.8 gm/dL (11.4-16.0); Hypochromasia Moderate; MCH 25.3 pg (25.0-35.0); MCHC 31.6 g/dL (31.0-37.0); Microcytosis Slight; Platelet Count 253 k/uL (150-450); RBC 3.87 m/uL (3.80-5.40); RDW 17.5 % (11.5-15.5); WBC 6.7 k/uL (3.8-10.6)
[2020-03-17 07:07] LABS: Glucose,Whole Blood 108 mg/dL (75-99)
[2020-03-17 09:14] LABS: African American GFR (CKD) 113.9 (60.0-200.0); Albumin 3.4 g/dL (3.80-4.90); Albumin/Globulin Ratio 1.89 (1.60-3.17); Anion Gap 6.4 mmol/L (4.00-12.00); BUN/Creat Ratio 12.5 Ratio (12.00-20.00); Calcium 8.4 mg/dL (8.7-10.3); Carbon Dioxide 23.6 mmol/L (21.6-31.8); Globulin 1.8 g/dL (1.6-3.3); Non-African American GFR(CKD) 98.2 (60.0-200.0); Total Bilirubin 0.5 mg/dL (0.2-1.2); Total Protein 5.2 g/dL (6.2-8.2)
[2020-03-17] MEDS: OXYMETAZOLINE 0.05% NASL SPRAY 1 SPRAY BOTTLE NASAL SCH (09:30)
[2020-03-17] MEDS: buPROPion XL 300 MG TAB.ER.24H PO SCH (09:30)
[2020-03-17] MEDS: PANTOPRAZOLE 40 MG/10 ML VIAL IV SCH (09:30)
[2020-03-17] MEDS: AMITRIPTYLINE HCL 25 MG TAB PO SCH (09:30)
[2020-03-17] MEDS: metFORMIN 500 MG TAB PO SCH (09:30)
[2020-03-17] MEDS: GABAPENTIN 300 MG CAP PO SCH ×2 (09:30→16:17)
[2020-03-17] MEDS: ARIPiprazole 5 MG TAB PO SCH (09:30)
[2020-03-17] MEDS: acetaZOLAMIDE 250 MG TAB PO SCH (09:31)
[2020-03-17 11:41] LABS: Glucose,Whole Blood 99 mg/dL (75-99)
[2020-03-17] MEDS ORDERED: hydroCHLOROthiazide 25 MG TAB PO SCH (12:15)
[2020-03-17] MEDS ORDERED: PROPOFOL 10 MG/ML 20 ML VIAL IV ONE (12:40)
[2020-03-17] MEDS ORDERED: LIDOCAINE 1% INJ 10MG/ML (20 ML MDV) ONE (12:40)
[2020-03-17] MEDS ORDERED: SODIUM CHLORIDE 0.9% 500 ML 500 ML IV ONE ×2 (12:41)
--- NOTE | 2020-03-17 13:06 | P.PCN ---
Date of Procedure: 03/17/20 Procedure(s) Performed: BRIEF HISTORY: Patient is a 30-year-old, pleasant, white female admitted hospital with episodes of Emesis. She Was Recently Diagnosed with Ovarian Venous Thrombosis and Was Started on a Eliquis 3 Weeks Ago. Eliquis is currently on hold. Last hemoglobin was 9.4 g/dL PROCEDURE PERFORMED: Esophagogastroduodenoscopy. PREOPERATIVE DIAGNOSIS: Acute upper GI bleed. IV sedation per anesthesia. PROCEDURE: After informed consent was obtained, the patient was brought into the endoscopy unit. IV sedation was administered by Anesthesia under continuous monitoring. Initially the Olympus GIF-140 video endoscope was inserted into the mouth. Esophagus intubated without any difficulty. It was gradually advanced into the stomach and duodenum and carefully examined. The bulb and the second part of the duodenum appeared normal. The scope at this time was withdrawn to the stomach, adequately insufflated with air, and upon careful examination, mucosa of the antrum, body, cardia and the fundus appeared normal. The scope was then withdrawn into the esophagus. The GE junction was located at 39 cm from the incisors. It a couple of erosions noted in the distal esophagus consistent with LA grade a reflux esophagitis. The rest of the esophagus appeared normal. There was no evidence of Martine-Guevara tear and the patient tolerated the procedure well. IMPRESSION: 1. Mild reflux esophagitis. 2. No evidence of active bleeding. RECOMMENDATIONS: The findings of this examination were discussed with the patient as well as her family. Diet will be advanced as tolerated. Continue pantoprazole 40 mg daily. Resume Eliquis today
--- NOTE | 2020-03-17 15:46 | P.CONS ---
History of Present Illness - Reason for Consult Consult date: 03/17/20 Hematemesis, on anticoagulation, anemia - History of Present Illness Ms Woo is a 30 yr old WF, initially seen in consult at [facility] on 03/09/14. She had woken up on 03/05/14 with acute onset of pain and swelling under the rt ear. This did not improve with Bactrim, and she thus came to the hospital. Initially, an infection was felt to be more likely, based on the acute presentation. She was started on antibiotics, and had an extensive infection w/u done, which was negative. We also did a lymphadenopathy and pancytopenia w/u, which was also negative. CT C/A/P did not show any other sites of involvement, excepting splenomegaly. After mild initial improvement, her s/s persisted, though her counts did improve. Thus a biopsy was recommended. She had a FNA initially with radiology, which was non-diagnostic. An exci sional biopsy was done on 03/17/14. 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 This was sent to the [facility] for further evaluation, and final report was still pending, at the time of her 1st OV on 04/04/14. As the prelim report was suspicious for lymphoma, a PET and bone marrow were planned. However, labs showed a positive serum B-HCG, indicating early . Thus these were cancelled. 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 Surveillance was still felt to be necessary as the path report was not totally definitive. This was placed on hold for her . She delivered a full term male child by C section in 12/10 and also had a tubal ligation. On f/u on 01/25/15, repeat labs and Ct scans were done, and the pt subsequently placed on surveillance. Scans in 05/14 did not show any change, but the pt did not keep her appt. She had been c/o abdominal pain, and intermittent n/v, with c/o BRB/dark brown or black in her vomitus and stool off and on. Colonscopy and EGD in 09/11 were negative. 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 CT AP in 02/11 was negative. She had been having prolonged menstrual bleeding, which stopped with OCPs , in late 03/14. Her PO iron was increased to BID in 04/13 The patient was seen again in consult in early 03/17. She had presented with lower abdominal pain, with CT scans raising the possibility of ovarian thrombus. Scans were reviewed by multiple radiologists, but you are unable to get any definitive answer as to whether there was a thrombus or not. As a thrombus could not be definitively ruled out it was decided to place the patient on anticoagulation with Eliquis The patient states that she actually stopped anticoagulation for a few days because her menstrual cycles after her discharge was very heavy. She started back on it about a week ago. She stated that she developed nausea, with 3 episodes of vomiting of dark red blood. He states that the amount of blood was about a cup full. She therefore came into the emergency room. She had repeat EGD done which showed only mild gastritis and no active bleeding. Hemoglobin was 9.8, compared to 12-13 around her discharge. The patient was supposed to receive IV iron in the office today. She reports that her menstrual cycle has started up again today. Consult was therefore placed for further evaluation and recommendations She had CT of the abdomen and pelvis, as well as transvaginal ultrasound done on 03/04/20 after her prior discharge. These did not show any new findings. Review of Systems Constitutional: Reports chronic pain, Reports fatigue Eyes: denies blurred vision, denies pain Ears: deny: decreased hearing, ear discharge, earache, tinnitus Ears, nose, mouth and throat: Denies headache, Denies sore throat Cardiovascular: Denies chest pain, Denies shortness of breath Respiratory: Denies cough Gastrointestinal: Reports abdominal pain Genitourinary: Reports as per HPI Menstruation: Reports as per HPI, Reports currently menstrual, Reports menses variable, Reports period heavy Musculoskeletal: Reports muscle weakness Integumentary: Denies pruritus, Denies rash Neurological: Reports as per HPI Psychiatric: Reports anxiety Endocrine: Reports fatigue Hematologic/Lymphatic: Reports as per HPI Past Medical History Past Medical History: Diabetes Mellitus, Fibromyalgia, GERD/Reflux, GI Bleed, Hyperlipidemia Additional Past Medical History / Comment(s): gallstones, kidney stones, IBS, mi graines, tachycardia, Martine- Guevara tear, History of Any Multi-Drug Resistant Organisms: None Reported Past Surgical History: Section, Cholecystectomy, Tubal Ligation Additional Past Surgical History / Comment(s): neck biopsy (lymph node ) d&c; LP shunt May 13 2019 feb 0211/2019 -revision, stent/ lithotripsy on left, cystoscopy, Past Anesthesia/Blood Transfusion Reactions: No Reported Reaction Past Psychological History: Anxiety, Bipolar, Depression, PTSD Smoking Status: Never smoker Past Alcohol Use History: None Reported Past Drug Use History: Marijuana - Past Family History Mother Family Medical History: Diabetes Mellitus, Hyperlipidemia, Hypertension, Myocardial Infarction ([place]) Additional Family Medical History / Comment(s): [place] X 3 Father Family Medical History: Congestive Heart Failure (CHF), Hyperlipidemia, Hypertension, Myocardial Infarction ([place]) Additional Family Medical History / Comment(s): mi x 3 Son(s) Family Medical History: No Reported History Medications and Allergies Home Medications Medication Instructions Recorded Confirmed Type Pravastatin Sodium [Pravachol] 20 mg PO HS 01/20/18 03/15/20 History LORazepam [Ativan] 1 mg PO HS 11/24/18 03/15/20 History buPROPion HCL [Wellbutrin XL] 300 mg PO DAILY 12/15/19 03/15/20 History traZODone HCL 50 mg PO HS 12/15/19 03/15/20 History ARIPiprazole 20 mg PO HS 01/09/20 03/15/20 History ARIPiprazole [Abilify] 5 mg PO DAILY 01/09/20 03/15/20 History Topiramate 50 mg PO HS 01/09/20 03/15/20 History acetaZOLAMIDE [Diamox] 500 mg PO BID 01/09/20 03/15/20 History busPIRone HCL 15 mg PO TID PRN 01/09/20 03/15/20 History metFORMIN HCL 500 mg PO BID 01/09/20 03/15/20 History Amitriptyline HCl [Elavil] 75 mg PO BID 01/24/20 03/15/20 History Verapamil HCl [Verapamil ER] 180 mg PO HS 01/24/20 03/15/20 History Etonogestrel [Nexplanon] 68 mg SQ ONCE 02/20/20 03/15/20 History Folic Acid 1 mg PO HS 02/20/20 03/15/20 History Gabapentin 600 mg PO TID 02/20/20 03/15/20 History Ondansetron [Zofran ODT] 4 mg PO Q8HR PRN 02/20/20 03/15/20 History OXcarbazepine [Oxtellar Xr] 150 mg PO HS 02/27/20 03/15/20 History Apixaban [Eliquis] See Taper PO DIRECTED 03/04/20 03/15/20 History Melatonin 10 mg PO HS PRN 03/15/20 03/15/20 History hydroCHLOROthiazide 25 mg PO DAILY 03/15/20 03/15/20 History Allergies Allergy/AdvReac Type Severity Reaction Status Date / Time NSAIDS (Non-Steroidal AdvReac Unknown Verified 03/15/20 21:55 Anti-Inflamma Physical Exam Vitals: Vital Signs Temp Pulse Resp BP Pulse Ox 03/17/20 13:29 99 F 116 H 19 124/80 99 03/17/20 12:00 98.5 F 103 H 16 117/70 97 03/17/20 04:40 98.6 F 118 H 18 109/65 98 03/16/20 20:01 98.6 F 101 H 14 119/84 99 Intake and Output 03/17/20 03/17/20 03/17/20 06:59 14:59 22:59 Intake Total 700 Balance 700 Intake: IV 100 Intake, IV Titration 600 Amount Sodium Chloride 0.9% 1, 600 000 ml @ 75 mls/hr IV . [id number] [facility] Rx#:[id number] Other: # Voids 3 - Constitutional General appearance: no acute distress - EENT Eyes: EOMI, PERRLA ENT: hearing grossly normal, normal oropharynx - Neck Neck: no lymphadenopathy Thyroid: bilateral: normal size - Respiratory Respiratory: bilateral: CTA - Cardiovascular Rhythm: regular Heart sounds: normal: S1, S2 - Gastrointestinal General gastrointestinal: normal bowel sounds, soft Localized gastrointestinal: tender: RLQ, LLQ - Integumentary Integumentary: normal - Neurologic Neurologic: CNII-XII intact - Musculoskeletal Musculoskeletal: generalized weakness, strength equal bilaterally - Psychiatric Psychiatric: A&O x's 3, appropriate affect Results CBC & Chem 7: 03/17/20 05:28 03/17/20 05:28 Labs: Abnormal Lab Results - Last 24 Hours (Table) 03/16/20 03/16/20 03/17/20 Range/Units 16:30 20:50 05:28 Hgb 9.8 L (11.4-16.0) gm/dL Hct 31.0 L (34.0-46.0) % RDW 17.5 H (11.5-15.5) % Chloride (96-109) mmol/L POC Glucose (mg/dL) 114 H 121 H (75-99) mg/dL Calcium (8.7-10.3) mg/dL AST (13-35) U/L ALT (8-44) U/L Total Protein (6.2-8.2) g/dL Albumin (3.80-4.90) g/dL 03/17/20 03/17/20 Range/Units 05:28 06:57 Hgb (11.4-16.0) gm/dL Hct (34.0-46.0) % RDW (11.5-15.5) % Chloride 112 H (96-109) mmol/L POC Glucose (mg/dL) 108 H (75-99) mg/dL Calcium 8.4 L (8.7-10.3) mg/dL AST 54 H (13-35) U/L ALT 60 H (8-44) U/L Total Protein 5.2 L (6.2-8.2) g/dL Albumin 3.40 L (3.80-4.90) g/dL Comments: Transvaginal ultrasound report reviewed EGD operative note reviewed CT scan - abdomen: report reviewed CT scan - pelvis: report reviewed Assessment and Plan (1) Hematemesis Narrative/Plan: The patient has had no hematemesis since admission. EGD showed only mild gastritis. Her history in this respect has been somewhat unreliable with some concern for self-induced vomiting also. Her hemoglobin did drop but that is most likely due to menstrual bleeding. - Therefore based on the negative EGD, it would be reasonable to resume anticoagulation. This was discussed in detail with the admitting service. Current Visit: Yes Status: Acute Code(s): K92.0 - HEMATEMESIS SNOMED Code(s): 0099698 (2) Acute blood loss anemia Narrative/Plan: This has been an intermittent problem since her initial consult 6 years ago. This has been mostly due to menstrual losses. Currently hemoglobin did drop to 9.8, compared to 12-13 earlier this month. However the patient does report a heavy menstrual cycle after her last discharge as well as resumption of menstrual bleeding during this admission. - She was advised that hemoglobin is in a safe range. Therefore at this time it would be reasonable to resume anticoagulation and proceed with iron supplementation as planned. I will order one dose of IV iron inpatient. She is already scheduled to start IV iron as an outpatient through the office next week. Current Visit: No Status: Acute Code(s): D62 - ACUTE POSTHEMORRHAGIC ANEMIA SNOMED Code(s): 279061935 (3) Thrombosis of ovarian vein Narrative/Plan: The patient had multiple radiologic studies and consultation with several radiol ogists regarding the findings. Unfortunately we were not able to get any definite answer. Essentially based on the findings the conclusion was that thrombosis could not be ruled out definitively, although no thrombus was also possibility. Anastomosis could not be ruled out, at this time the recom mendation is to continue with anticoagulation for 3 months, as long as the patient does not have any intolerable side effects. She was advised that the platelets may be heavier on anticoagulation, but with iron supplementation we should be able to maintain hemoglobin in a safe range in the comparatively short period of time that she is supposed to be on anticoagulation. Current Visit: Yes Status: Acute Code(s): I82.890 - ACUTE EMBOLISM AND THROMBOSIS OF OTHER SPECIFIED VEINS SNOMED Code(s): 00497291
[2020-03-17] MEDS: SODIUM CHLORIDE 0.9% 1,000 ML IV SCH (16:23)
[2020-03-17] MEDS ORDERED: SODIUM FERRIC GLUCONAT-SUCROSE 125 MG in SODIUM CHLORIDE 0.9% 100 ML IVPB ONE (16:30)
[2020-03-17 17:12] LABS: Glucose,Whole Blood 109 mg/dL (75-99)
[2020-03-17 20:28] LABS: Glucose,Whole Blood 147 mg/dL (75-99)
[2020-03-17 22:06] VITALS: BP 123/82; PULSE 120; RESP 16; TEMP 99
--- NOTE | 2020-03-19 22:46 | P.DS ---
Providers Date of admission: 03/15/20 21:08 Expected date of discharge: 03/17/20 Attending physician: Efrain Goodman Consults: 03/15/20 21:34 Consult Physician Routine Consulting Provider: Nohemi Vyas Consult Reason/Comments: Hematemesis on eliquis Do you want consulting provider notified?: Yes 03/16/20 12:43 Consult Physician Routine Consulting Provider: Sang Mckinley Consult Reason/Comments: Ov vein thrombosis-bleed NOAC Do you want consulting provider notified?: Yes Primary care physician: [facility] Course: Chief Complaint: Vomiting blood History of presenting complaint: This is a 30-year-old patient ; chronic stable medical conditions include diabetes, fibromyalgia, GERD, hyperlipidemia, irritable bowel syndrome, 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 Bipolar disorder. Right ureteral stone with stent placement. About a month ago came to the hospital with abdominal pain. There is a question about ovarian vein thrombosis. Started on eliquis per oncology team. 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 Patient was to follow-up with her own neurosurgeon. Patient now presents with vomiting some blood earlier. Patient's had some chronic abdominal pain. No dizziness or lightheadedness. No fever no chills. Patient's eliquis was held. GI was consulted. Patient did undergo EGD-unremarkable. Today-discussed with Dr. mckinley from hematology.-Acute to resume eliquis. Also cleared by GI. Patient hemodynamically stable. Discussed with patient Discussion and discharge planning more than 35 minutes Consultation: Dr. Coleen Vyas from GI Dr. Mckinley from hematology Physical examination: VITAL SIGNS: 98.5, 103, 16, 117/70, 97% room air GENERAL: BMI 51.8, laying in bed, comfortable EYES: Pupils equal. Conjunctiva normal. HEENT: External appearance of nose and ears normal, oral cavity grossly normal. NECK: JVD not raised; masses not palpable. HEART: First and second heart sounds are normal; no edema. LUNGS: Respiratory rate normal; clear to auscultation. ABDOMEN: Soft, nontender, no guarding rigidity, liver spleen not palpable, no masses palpable. PSYCH: Alert and oriented x3; mood and affect anxious. INVESTIGATIONS, reviewed in the clinical context: Hemoglobin 9.8 Admission labs: White count 7.9 hemoglobin 10.2 platelets 260 potassium 4.1 creatinine 0.79 Previous hemoglobin: 12.1 on March 04 Assessment: -Patient presented with vomiting blood. Has been on eliquis has been held. EGD-unremarkable -Recent left lower abdominal pain with a fluid collection in the left lower quadrant. 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 Mckinley - Disposition: Home Patient Condition at Discharge: Stable Plan - Discharge Summary New Discharge Prescriptions: Continue Pravastatin Sodium [Pravachol] 20 mg PO HS LORazepam [Ativan] 1 mg PO HS traZODone HCL 50 mg PO HS buPROPion HCL [Wellbutrin XL] 300 mg PO DAILY metFORMIN HCL 500 mg PO BID Topiramate 50 mg PO HS busPIRone HCL 15 mg PO TID PRN PRN Reason: Anxiety ARIPiprazole [Abilify] 5 mg PO DAILY acetaZOLAMIDE [Diamox] 500 mg PO BID ARIPiprazole 20 mg PO HS Verapamil HCl [Verapamil ER] 180 mg PO HS Amitriptyline HCl [Elavil] 75 mg PO BID Gabapentin 600 mg PO TID Ondansetron [Zofran ODT] 4 mg PO Q8HR PRN PRN Reason: nausea Folic Acid 1 mg PO HS Etonogestrel [Nexplanon] 68 mg SQ ONCE OXcarbazepine [Oxtellar Xr] 150 mg PO HS Apixaban [Eliquis] See Taper PO DIRECTED hydroCHLOROthiazide 25 mg PO DAILY Melatonin 10 mg PO HS PRN PRN Reason: Insomnia Discharge Medication List Pravastatin Sodium [Pravachol] 20 mg PO HS 01/20/18 [History] LORazepam [Ativan] 1 mg PO HS 11/24/18 [History] buPROPion HCL [Wellbutrin XL] 300 mg PO DAILY 12/15/19 [History] traZODone HCL 50 mg PO HS 12/15/19 [History] ARIPiprazole 20 mg PO HS 01/09/20 [History] ARIPiprazole [Abilify] 5 mg PO DAILY 01/09/20 [History] Topiramate 50 mg PO HS 01/09/20 [History] acetaZOLAMIDE [Diamox] 500 mg PO BID 01/09/20 [History] busPIRone HCL 15 mg PO TID PRN 01/09/20 [History] metFORMIN HCL 500 mg PO BID 01/09/20 [History] Amitriptyline HCl [Elavil] 75 mg PO BID 01/24/20 [History] Verapamil HCl [Verapamil ER] 180 mg PO HS 01/24/20 [History] Etonogestrel [Nexplanon] 68 mg SQ ONCE 02/20/20 [History] Folic Acid 1 mg PO HS 02/20/20 [History] Gabapentin 600 mg PO TID 02/20/20 [History] Ondansetron [Zofran ODT] 4 mg PO Q8HR PRN 02/20/20 [History] OXcarbazepine [Oxtellar Xr] 150 mg PO HS 02/27/20 [History] Apixaban [Eliquis] See Taper PO DIRECTED 03/04/20 [History] Melatonin 10 mg PO HS PRN 03/15/20 [History] hydroCHLOROthiazide 25 mg PO DAILY 03/15/20 [History] Follow up Appointment(s)/Referral(s): Sang Mckinley MD [STAFF PHYSICIAN] - 2 Weeks Dre Mccloud MD [STAFF PHYSICIAN] - 1 Week Olvin Keenan MD [Primary Care Provider] - 1-2 days Patient Instructions/Handouts: Esophagitis (DC), Hematemesis (ED) Discharge Disposition: HOME SELF-CARE Care Plan Goals (MU): Continue Regular Diet Plain Tylenol as per home for pain.
== END 2020-03-17 22:10 | disposition home or self-care (01) ==
LOC: EC 18:54 → 5NMEDONC 21:08
PROVIDERS: ADMIT Hospitalist; ATTEND Hospitalist
DX: K21.01 Gastro-esophageal reflux disease with esophagitis, with bleeding (principal); K22.11 Ulcer of esophagus with bleeding; R10.32 Left lower quadrant pain; R18.8 Other ascites; D62 Acute posthemorrhagic anemia; K76.0 Fatty (change of) liver, not elsewhere classified; E11.9 Type 2 diabetes mellitus without complications; M79.7 Fibromyalgia; K58.9 Irritable bowel syndrome, unspecified; E66.01 Morbid (severe) obesity due to excess calories; F31.9 Bipolar disorder, unspecified; F43.10 Post-traumatic stress disorder, unspecified; E78.5 Hyperlipidemia, unspecified; G89.29 Other chronic pain; G43.909 Migraine, unspecified, not intractable, without status migrainosus; F41.9 Anxiety disorder, unspecified; R10.84 Generalized abdominal pain; I10 Essential (primary) hypertension; I49.9 Cardiac arrhythmia, unspecified; Z87.19 Personal history of other diseases of the digestive system; Z98.890 Other specified postprocedural states; Z79.01 Long term (current) use of anticoagulants; Z79.899 Other long term (current) drug therapy; Z79.84 Long term (current) use of oral hypoglycemic drugs; Z79.3 Long term (current) use of hormonal contraceptives; Z88.6 Allergy status to analgesic agent; Z87.442 Personal history of urinary calculi; Z90.49 Acquired absence of other specified parts of digestive tract; Z98.51 Tubal ligation status; Z98.2 Presence of cerebrospinal fluid drainage device; Z68.43 Body mass index [BMI] 50.0-59.9, adult; Z83.3 Family history of diabetes mellitus; Z83.438 Family history of other disorder of lipoprotein metabolism and other lipidemia; Z82.49 Family history of ischemic heart disease and other diseases of the circulatory system
CPT/HCPCS: 96376; 96361 ×3; 96374; 96375; 99284; 36415; 86900; 86901; 80053 ×3; 82150; 83605; 83690; 85025; 85027 ×2; 85610; 85730; 86850; 81001; 81025; 43235; G0378 ×3; J2405 ×3; J2001; J2916; J2704; C9113 ×3; J1170 ×3

== ENCOUNTER 2020-03-21 17:47 | Inpatient (IN) | payer OTHER ==
[2020-03-21] MEDS ORDERED: ONDANSETRON 4 MG/2 ML VIAL IVP STA (18:23)
[2020-03-21] MEDS ORDERED: SODIUM CHLORIDE 0.9% 1,000 ML IV STA (18:23)
[2020-03-21] MEDS ORDERED: PANTOPRAZOLE 40 MG/10 ML VIAL IVP STA (18:23)
--- NOTE | 2020-03-21 18:26 | ED ---
General Adult HPI - General Chief complaint: Abdominal Pain Stated complaint: NVD, vomiting blood Time Seen by Provider: 03/21/20 18:08 Source: patient, RN notes reviewed Mode of arrival: wheelchair Limitations: no limitations - History of Present Illness Initial comments: Patient is a pleasant 30-year-old female presenting to the emergency Department with hematemesis. Onset of symptoms was around 1:00 today. Patient has had 4 episodes of mostly blood. Patient also has had a couple episodes of loose stools with a minimal amount of blood. Patient was in the hospital recently with similar symptoms. Patient is on Eliquis. Patient did see GI and did have endoscopy done. Patient is on Eliquis secondary to concern for possible thrombus near the ovary. No dyspnea or weakness. - Related Data Home Medications Medication Instructions Recorded Confirmed Pravastatin Sodium [Pravachol] 20 mg PO HS 01/20/18 03/15/20 LORazepam [Ativan] 1 mg PO HS 11/24/18 03/15/20 buPROPion HCL [Wellbutrin XL] 300 mg PO DAILY 12/15/19 03/15/20 traZODone HCL 50 mg PO HS 12/15/19 03/15/20 ARIPiprazole 20 mg PO HS 01/09/20 03/15/20 ARIPiprazole [Abilify] 5 mg PO DAILY 01/09/20 03/15/20 Topiramate 50 mg PO HS 01/09/20 03/15/20 acetaZOLAMIDE [Diamox] 500 mg PO BID 01/09/20 03/15/20 busPIRone HCL 15 mg PO TID PRN 01/09/20 03/15/20 metFORMIN HCL 500 mg PO BID 01/09/20 03/15/20 Amitriptyline HCl [Elavil] 75 mg PO BID 01/24/20 03/15/20 Verapamil HCl [Verapamil ER] 180 mg PO HS 01/24/20 03/15/20 Etonogestrel [Nexplanon] 68 mg SQ ONCE 02/20/20 03/15/20 Folic Acid 1 mg PO HS 02/20/20 03/15/20 Gabapentin 600 mg PO TID 02/20/20 03/15/20 Ondansetron [Zofran ODT] 4 mg PO Q8HR PRN 02/20/20 03/15/20 OXcarbazepine [Oxtellar Xr] 150 mg PO HS 02/27/20 03/15/20 Apixaban [Eliquis] See Taper PO DIRECTED 03/04/20 03/15/20 Melatonin 10 mg PO HS PRN 03/15/20 03/15/20 hydroCHLOROthiazide 25 mg PO DAILY 03/15/20 03/15/20 Allergies Allergy/AdvReac Type Severity Reaction Status Date / Time NSAIDS (Non-Steroidal AdvReac Unknown Verified 03/21/20 17:53 Anti-Inflamma Review of Systems ROS Statement: Those systems with pertinent positive or pertinent negative responses have been documented in the HPI. ROS Other: All systems not noted in ROS Statement are negative. Constitutional: Denies: fever Eyes: Denies: eye pain ENT: Denies: ear pain Respiratory: Denies: cough, dyspnea Cardiovascular: Denies: chest pain Endocrine: Denies: fatigue Gastrointestinal: Reports: as per HPI, abdominal pain (Mild discomfort), hematemesis Genitourinary: Denies: dysuria Musculoskeletal: Denies: back pain Skin: Denies: rash Neurological: Denies: weakness Past Medical History Past Medical History: Diabetes Mellitus, Fibromyalgia, GERD/Reflux, GI Bleed, Hyperlipidemia Additional Past Medical History / Comment(s): gallstones, kidney stones, IBS, migraines, tachycardia, Martine- Guevara tear, History of Any Multi-Drug Resistant Organisms: None Reported Past Surgical History: Section, Cholecystectomy, Tubal Ligation Additional Past Surgical History / Comment(s): neck biopsy (lymph node ) d&c; LP shunt May 13 2019 feb 0211/2019 -revision, stent/ lithotripsy on left, cystoscopy, Past Anesthesia/Blood Transfusion Reactions: No Reported Reaction Past Psychological History: Anxiety, Bipolar, Depression, PTSD Smoking Status: Never smoker Past Alcohol Use History: None Reported Past Drug Use History: Marijuana - Past Family History Mother Family Medical History: Diabetes Mellitus, Hyperlipidemia, Hypertension, Myocardial Infarction ([place]) Additional Family Medical History / Comment(s): [place] X 3 Father Family Medical History: Congestive Heart Failure (CHF), Hyperlipidemia, Hypertension, Myocardial Infarction ([place]) Additional Family Medical History / Comment(s): mi x 3 Son(s) Family Medical History: No Reported History General Exam Limitations: no limitations General appearance: alert, in no apparent distress Head exam: Present: normocephalic Eye exam: Present: normal appearance Neck exam: Present: normal inspection Respiratory exam: Present: normal lung sounds bilaterally Cardiovascular Exam: Present: tachycardia (Patient states she has chronic tachycardia and does take verapamil for this) GI/Abdominal exam: Present: soft. Absent: distended, tenderness Extremities exam: Present: normal inspection Neurological exam: Present: alert Psychiatric exam: Present: normal affect, normal mood Skin exam: Present: normal color Course Vital Signs 03/21/20 17:50 Temperature 98.6 F Pulse Rate 116 H Respiratory 18 Rate Blood Pressure 117/78 O2 Sat by Pulse 98 Oximetry Medical Decision Making - Medical Decision Making Patient updated. Case was discussed with Dr. woods, who will admit covered for Dr. Goodman, who admits for Dr. Keenan. - Lab Data Result diagrams: 03/21/20 18:31 Lab Results 03/21/20 Range/Units 18:31 WBC 9.2 (3.8-10.6) k/uL RBC 4.45 (3.80-5.40) m/uL Hgb 11.2 L (11.4-16.0) gm/dL Hct 35.1 (34.0-46.0) % MCV 78.9 L (80.0-100.0) fL MCH 25.1 (25.0-35.0) pg MCHC 31.8 (31.0-37.0) g/dL RDW 18.5 H (11.5-15.5) % Plt Count 257 (150-450) k/uL MPV 7.1 Neutrophils % 71 % Lymphocytes % 19 % Monocytes % 4 % Eosinophils % 6 % Basophils % 1 % Neutrophils # 6.5 (1.3-7.7) k/uL Lymphocytes # 1.7 (1.0-4.8) k/uL Monocytes # 0.3 (0-1.0) k/uL Eosinophils # 0.5 (0-0.7) k/uL Basophils # 0.0 (0-0.2) k/uL Hypochromasia Slight Anisocytosis Slight Microcytosis Slight Disposition Clinical Impression: Acute upper GI bleed Disposition: ADMITTED IP TO THIS [facility] Is patient prescribed a controlled substance at d/c from ED?: No Referrals: Olvin Keenan MD [Primary Care Provider] - 1-2 days Decision Time: 18:38
[2020-03-21] MEDS ORDERED: NALOXONE 0.4 MG/ML 1 ML VIAL IV PRN (18:31)
[2020-03-21 18:51] LABS: Anisocytosis Slight; Basophils % (A) 1 %; Eosinophils # (A) 0.5 k/uL (0-0.7); Eosinophils % (A) 6 %; HCT 35.1 % (34.0-46.0); HGB 11.2 gm/dL (11.4-16.0); Hypochromasia Slight; Lymphocytes # (A) 1.7 k/uL (1.0-4.8); Lymphocytes % (A) 19 %; MCH 25.1 pg (25.0-35.0); MCHC 31.8 g/dL (31.0-37.0); MCV 78.9 fL (80.0-100.0); Mean Platelet Volume 7.1; Microcytosis Slight; Monocytes # (A) 0.3 k/uL (0-1.0); Monocytes % (A) 4 %; Neutrophils # (A) 6.5 k/uL (1.3-7.7); Neutrophils % (A) 71 %; Platelet Count 257 k/uL (150-450); RBC 4.45 m/uL (3.80-5.40); RDW 18.5 % (11.5-15.5); WBC 9.2 k/uL (3.8-10.6)
[2020-03-21] MEDS ORDERED: MORPHINE SULFATE 4 MG/ML SYRINGE IVP STA (19:04)
[2020-03-21 19:06] LABS: ALT 34 U/L (4-34); AST 46 U/L (14-36); African American GFR (CKD) >90 (>60 ml/min/1.73 sqM); Albumin 3.5 g/dL (3.5-5.0); Alkaline Phosphatase 112 U/L (38-126); Anion Gap 8 mmol/L; Blood Urea Nitrogen 14 mg/dL (7-17); Calcium 8.8 mg/dL (8.4-10.2); Carbon Dioxide 18 mmol/L (22-30); Chloride 111 mmol/L (98-107); Glucose 151 mg/dL (74-99); Non-African American GFR(CKD) >90 (>60 ml/min/1.73 sqM); Potassium 5.3 mmol/L (3.5-5.1); Sodium 137 mmol/L (137-145); Total Bilirubin 0.5 mg/dL (0.2-1.3); Total Protein 6.1 g/dL (6.3-8.2)
[2020-03-21 19:47] LABS: Partial Thromboplastin Time 26.7 sec (22.0-30.0); Prothrombin Time 10.2 sec (9.0-12.0)
[2020-03-21] MEDS ORDERED: busPIRone HCl 5 MG TAB PO PRN (20:27)
[2020-03-21] MEDS: SODIUM CHLORIDE 0.9% 1,000 ML IV SCH (21:29)
[2020-03-21] MEDS: acetaZOLAMIDE 250 MG TAB PO SCH (21:32)
[2020-03-21] MEDS: metFORMIN 500 MG TAB PO SCH (21:33)
[2020-03-21] MEDS: OXYMETAZOLINE 0.05% NASL SPRAY 1 SPRAY BOTTLE NASAL SCH (21:33)
[2020-03-21] MEDS: FOLIC ACID 1 MG TAB PO SCH (21:33)
[2020-03-21] MEDS: AMITRIPTYLINE HCL 25 MG TAB PO SCH (21:33)
[2020-03-21] MEDS: VERAPAMIL SR 180 MG TABLET.ER PO SCH (21:35)
[2020-03-21] MEDS: GABAPENTIN 300 MG CAP PO SCH (21:35)
[2020-03-21] MEDS: traZODone HCL 50 MG TAB PO SCH (21:35)
[2020-03-21] MEDS: PRAVASTATIN SODIUM 20 MG TAB PO SCH (21:35)
[2020-03-21] MEDS: ACETAMINOPHEN TAB 325 MG TAB PO PRN (21:39)
[2020-03-21] MEDS ORDERED: MORPHINE SULFATE 2 MG/ML SYRINGE IVP PRN (23:35)
[2020-03-22] MEDS ORDERED: LORazepam 1 MG TAB PO STA (03:48)
[2020-03-22] MEDS: SODIUM CHLORIDE 0.9% 1,000 ML IV SCH ×3 (04:50→20:24)
[2020-03-22 06:21] LABS: Glucose,Whole Blood 90 mg/dL (75-99)
[2020-03-22] MEDS: metFORMIN 500 MG TAB PO SCH ×2 (06:28→17:35)
[2020-03-22] MEDS ORDERED: PANTOPRAZOLE 40 MG/10 ML VIAL IV SCH (09:00)
[2020-03-22 09:26] LABS: Anisocytosis Slight; Basophils % (A) 1 %; Eosinophils # (A) 0.4 k/uL (0-0.7); Eosinophils % (A) 6 %; HCT 32.2 % (34.0-46.0); HGB 10.2 gm/dL (11.4-16.0); Hypochromasia Moderate; Lymphocytes # (A) 1.6 k/uL (1.0-4.8); Lymphocytes % (A) 23 %; MCH 25.4 pg (25.0-35.0); MCHC 31.6 g/dL (31.0-37.0); MCV 80.3 fL (80.0-100.0); Mean Platelet Volume 7.1; Microcytosis Slight; Monocytes # (A) 0.3 k/uL (0-1.0); Monocytes % (A) 4 %; Neutrophils # (A) 4.7 k/uL (1.3-7.7); Neutrophils % (A) 66 %; Platelet Count 237 k/uL (150-450); RBC 4.01 m/uL (3.80-5.40); RDW 18.6 % (11.5-15.5); WBC 7.1 k/uL (3.8-10.6)
[2020-03-22 09:42] LABS: African American GFR (CKD) >90 (>60 ml/min/1.73 sqM); Anion Gap 4 mmol/L; Blood Urea Nitrogen 11 mg/dL (7-17); Carbon Dioxide 22 mmol/L (22-30); Chloride 114 mmol/L (98-107); Glucose 95 mg/dL (74-99); Non-African American GFR(CKD) >90 (>60 ml/min/1.73 sqM); Potassium 3.8 mmol/L (3.5-5.1); Sodium 140 mmol/L (137-145)
[2020-03-22] MEDS: OXYMETAZOLINE 0.05% NASL SPRAY 1 SPRAY BOTTLE NASAL SCH ×2 (09:49→20:33)
[2020-03-22] MEDS: buPROPion XL 300 MG TAB.ER.24H PO SCH (09:50)
[2020-03-22] MEDS: AMITRIPTYLINE HCL 25 MG TAB PO SCH ×2 (09:50→20:24)
[2020-03-22] MEDS: GABAPENTIN 300 MG CAP PO SCH ×3 (09:50→20:25)
[2020-03-22] MEDS: acetaZOLAMIDE 250 MG TAB PO SCH ×2 (09:50→20:33)
[2020-03-22] MEDS: ARIPiprazole 5 MG TAB PO SCH (09:50)
[2020-03-22 09:55] VITALS: BMI 51.7
[2020-03-22] MEDS: ONDANSETRON 4 MG/2 ML VIAL IVP PRN ×2 (11:36→20:26)
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
[2020-03-22 15:57] LABS: Appearance,Urine Clear (Clear); Bacteria,Urine Rare /hpf; Bilirubin,Urine Negative (Negative); Blood,Urine Moderate (Negative); Color,Urine Light Yellow; Glucose,Urine (UA) Negative (Negative); Ketones,Urine Negative (Negative); Leukocyte Esterase,Urine Negative (Negative); Nitrite,Urine Negative (Negative); Protein,Urine Negative (Negative); Specific Gravity,Urine 1.007 (1.001-1.035); Squamous Epithelial Cell,Urine <1 /hpf (0-4); Urobilinogen,Urine <2.0 mg/dL (<2.0); WBC,Urine 1 /hpf (0-5)
[2020-03-22 16:52] LABS: Glucose,Whole Blood 107 mg/dL (75-99)
[2020-03-22] MEDS: DICYCLOMINE 20 MG TAB PO PRN (17:35)
[2020-03-22] MEDS: PANTOPRAZOLE 40 MG TABLET PO SCH (17:35)
[2020-03-22] MEDS: VERAPAMIL SR 180 MG TABLET.ER PO SCH (20:24)
[2020-03-22] MEDS: ACETAMINOPHEN TAB 325 MG TAB PO PRN (20:25)
[2020-03-22] MEDS: FOLIC ACID 1 MG TAB PO SCH (20:25)
[2020-03-22] MEDS: traZODone HCL 50 MG TAB PO SCH (20:25)
[2020-03-22] MEDS: PRAVASTATIN SODIUM 20 MG TAB PO SCH (20:25)
[2020-03-22 20:31] LABS: Glucose,Whole Blood 99 mg/dL (75-99)
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
[2020-03-22] MEDS: MELATONIN 5 MG TABLET PO PRN (23:52)
[2020-03-23] MEDS: DICYCLOMINE 20 MG TAB PO PRN (00:19)
[2020-03-23] MEDS: SODIUM CHLORIDE 0.9% 1,000 ML IV SCH ×2 (03:56→17:27)
[2020-03-23 06:52] LABS: Glucose,Whole Blood 104 mg/dL (75-99)
[2020-03-23] MEDS: PANTOPRAZOLE 40 MG TABLET PO SCH ×2 (06:53→21:26)
[2020-03-23 08:18] LABS: Anisocytosis Slight; Basophils % (A) 1 %; Eosinophils # (A) 0.3 k/uL (0-0.7); Eosinophils % (A) 5 %; HCT 32.9 % (34.0-46.0); HGB 10.4 gm/dL (11.4-16.0); Hypochromasia Moderate; Lymphocytes # (A) 1.7 k/uL (1.0-4.8); Lymphocytes % (A) 27 %; MCH 25.7 pg (25.0-35.0); MCHC 31.6 g/dL (31.0-37.0); MCV 81.2 fL (80.0-100.0); Mean Platelet Volume 6.9; Microcytosis Slight; Monocytes # (A) 0.2 k/uL (0-1.0); Monocytes % (A) 3 %; Neutrophils % (A) 64 %; Platelet Count 218 k/uL (150-450); RBC 4.05 m/uL (3.80-5.40); RDW 18.6 % (11.5-15.5); WBC 6.3 k/uL (3.8-10.6)
[2020-03-23] MEDS: GABAPENTIN 300 MG CAP PO SCH ×3 (08:19→21:28)
[2020-03-23] MEDS: ARIPiprazole 5 MG TAB PO SCH (08:21)
[2020-03-23] MEDS: metFORMIN 500 MG TAB PO SCH ×2 (08:21→17:27)
[2020-03-23] MEDS: buPROPion XL 300 MG TAB.ER.24H PO SCH (08:22)
[2020-03-23] MEDS: ONDANSETRON 4 MG/2 ML VIAL IVP PRN ×2 (08:23→18:11)
[2020-03-23] MEDS: AMITRIPTYLINE HCL 25 MG TAB PO SCH ×2 (08:23→21:26)
[2020-03-23] MEDS: acetaZOLAMIDE 250 MG TAB PO SCH ×2 (08:25→21:31)
[2020-03-23 08:29] LABS: African American GFR (CKD) >90 (>60 ml/min/1.73 sqM); Anion Gap 8 mmol/L; Blood Urea Nitrogen 8 mg/dL (7-17); Calcium 8.1 mg/dL (8.4-10.2); Carbon Dioxide 18 mmol/L (22-30); Chloride 115 mmol/L (98-107); Glucose 164 mg/dL (74-99); Magnesium 1.9 mg/dL (1.6-2.3); Non-African American GFR(CKD) >90 (>60 ml/min/1.73 sqM); Potassium 3.9 mmol/L (3.5-5.1); Sodium 141 mmol/L (137-145)
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
[2020-03-23] MEDS ORDERED: HYDROcodone/APAP 5-325MG 1 EACH TAB PO STA (09:29)
[2020-03-23] MEDS ORDERED: ONDANSETRON 4 MG TAB PO ONE (09:30)
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
--- NOTE | 2020-03-23 09:38 | P.PN ---
Progress Note - Text Progress Note Date: 03/23/20 It was brought to my attention that the patient had a CAT scan up in [place] prior to transfer to [place]. The CAT scan did not show any stones. There is some mild right hydronephrosis which is to be expected as result of her stone and treatment. We'll see what the computed tomography scan shows today but at this point in time I do not have any urologic recommendations.
--- NOTE | 2020-03-23 09:46 | P.PN ---
Subjective This is a pleasant 30 years old female with multiple medical problems, she has history of cranial peritoneal shunt with Dr. Ruiz the neurosurgeon at [facility]. Last time she saw him was 03/01, he is aware about some fluid collection around her shunt catheter in the left lower quadrant, he told her to keep monitoring with no need for surgical intervention, she said that she had another CAT scan at [facility] when week later and they told her it came down to 1 cm. patient relates her LLQ pain to vomiting, she stated happe alejandro to her last time also secondary to vomiting and it resolved on the day of discharge Other medical problems including right kidney stone and right hydronephrosis status post ureteral stent with Dr. Saldivar the urologist on January/2020. And since then she is been having on and off right lower quadrant abdominal pain rated as 8/10 in severity that classes 5-10 minutes. Pain is on on off. This time she presents because she vomited blood 4 times yesterday each time about half cup in size. She says that she had a prior episode of vomiting blood last Friday on 03/15 but then stopped until it happened again yesterday and that's why she came to the emergency room last night. 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 Mckinley and parts cataloger on 02/26 (please refer to their notes for more details), patient was started on Eliquis for 3 months till May 2020 per hematology recommendations She was admitted for the same on 03/16-03/19 for possible upper GI bleed, EGD was done that was unremarkable and she was discharged on Eliquis again. On admission her hemoglobin is 11.2 and 10.2 today which is close to her baseline last time she was in the hospital her hemoglobin was 9.8-10.6. I discussed the case with gynecology service and they recommended to stop anticoagulation. however we will follow the recommendation by service order taker also regarding anticoagulation therapy. Eliquis is currently on hold 03/23/2020 Patient still complaining of from LLQ pain and tenderness done to assess extent are L cue pain and tenderness. She vomited once this morning and there was no blood in it. CAT scan from [facility] showing subcutaneous fluid collection in the LLQ area about 8 cm in change from previous. With mild right hydronephrosis and because of this we going to repeat CAT scan of the abdomen today Most likely patient had vomiting secondary to this fluid collection if this is still there or worse and vomiting causing her possible Syl Ashvin tear and mild hematemesis as per GI recommendation. However her hemoglobin is stable. Continue with pain control. Hemodynamically stable. Hemoglobin today still stable at 10.4. Risks of labs are unremarkable and sugar controlled Discussed with staff to switch patient to inpatient service, order a Place. Patient will need hospital stay more than 2 days Review of Systems CONSTITUTIONAL: No fever, no malaise, no fatigue. HEENT: No recent visual problems or hearing problems. Denied any sore throat. CARDIOVASCULAR: No orthopnea, PND, no palpitations, no syncope. PULMONARY: No shortness of breath, no cough, no hemoptysis. GASTROINTESTINAL: No diarrhea, no abdominal pain. Normoactive bowel sounds. NEUROLOGICAL: No headaches, no weakness, no numbness. HEMATOLOGICAL: Denies any bruising or petechiae. GENITOURINARY: Denies any burning micturition, frequency, or urgency. MUSCULOSKELETAL/RHEUMATOLOGICAL: Denies any joint pain, swelling, or any muscle pain. ENDOCRINE: Denies any polyuria or polydipsia. Active Medications Generic Name Dose Route Start Last Admin Trade Name Freq PRN Reason Stop Dose Admin Acetaminophen 325 mg 03/21/20 20:37 03/22/20 20:25 Acetaminophen Tab 325 Mg Tab PO 325 mg Q6HR PRN Administration Fever and/ or Mild Pain Acetazolamide 500 mg 03/21/20 21:00 03/23/20 08:25 Acetazolamide 250 Mg Tab PO 500 mg BID ROSALIE Administration Amitriptyline HCl 75 mg 03/21/20 21:00 03/23/20 08:23 Amitriptyline Hcl 25 Mg Tab PO 75 mg BID ROSALIE Administration Aripiprazole 5 mg 03/22/20 09:00 03/23/20 08:21 Aripiprazole 5 Mg Tab PO 5 mg DAILY ROSALIE Administration Aripiprazole 20 mg 03/21/20 21:00 03/22/20 22:08 Aripiprazole 20 Mg Tab PO 20 mg HS ROSALIE Administration Bupropion HCl 300 mg 03/22/20 09:00 03/23/20 08:22 Bupropion Xl 300 Mg Tab.Er.24h PO 300 mg DAILY ROSALIE Administration Buspirone HCl 15 mg 03/21/20 20:27 Buspirone Hcl 5 Mg Tab PO TID PRN Anxiety Dicyclomine HCl 20 mg 03/22/20 15:41 03/23/20 00:19 Dicyclomine 20 Mg Tab PO 20 mg QID PRN Administration GI Upset Folic Acid 1 mg 03/21/20 21:00 03/22/20 20:25 Folic Acid 1 Mg Tab PO 1 mg HS ROSALIE Administration Gabapentin 600 mg 03/21/20 22:00 03/23/20 08:19 Gabapentin 300 Mg Cap PO 600 mg TID ROSALIE Administration Sodium Chloride 1,000 mls @ 75 mls/hr 03/21/20 18:45 03/23/20 03:56 Saline 0.9% IV 75 mls/hr .[id number] ROSALIE Administration Iopamidol 30 ml 03/23/20 09:29 Iopamidol Contrast (Oral Use) Vial PO 03/24/20 09:[address] Scan Melatonin 10 mg 03/21/20 20:27 03/22/20 23:52 Melatonin 5 Mg Tablet PO 10 mg HS PRN Administration Insomnia Metformin HCl 500 mg 03/21/20 21:00 03/23/20 08:21 Metformin 500 Mg Tab PO 500 mg AC-BID ROSALIE Administration Naloxone HCl 0.2 mg 03/21/20 18:31 Naloxone 0.4 Mg/Ml 1 Ml Vial IV Q2M PRN Opioid Reversal Ondansetron HCl 4 mg 03/21/20 18:31 03/23/20 08:23 Ondansetron 4 Mg/2 Ml Vial IVP 4 mg Q8HR PRN Administration Nausea And Vomiting Oxymetazoline HCl 2 spray 03/21/20 21:00 03/22/20 20:33 Oxymetazoline 0.05% Nasl Blue 1 Blue Bottle NASAL 03/24/20 21:01 Not Given BID ROSALIE Pantoprazole Sodium 40 mg 03/22/20 17:30 03/23/20 06:53 Pantoprazole 40 Mg Tablet PO 40 mg AC-BID ROSALIE Administration Pravastatin Sodium 20 mg 03/21/20 21:00 03/22/20 20:25 Pravastatin Sodium 20 Mg Tab PO 20 mg HS ROSALIE Administration Trazodone HCl 50 mg 03/21/20 21:00 03/22/20 20:25 Trazodone Hcl 50 Mg Tab PO 50 mg HS ROSALIE Administration Verapamil HCl 180 mg 03/21/20 21:00 03/22/20 20:24 Verapamil Sr 180 Mg Tablet.Er PO 180 mg HS ROSALIE Administration Objective - Vital Signs Vital signs: Vital Signs Temp 96.7 F L 03/23/20 09:00 Pulse 98 03/23/20 09:00 Resp 20 03/23/20 09:00 BP 115/68 03/23/20 09:00 Pulse Ox 97 03/23/20 09:00 Intake & Output 03/22/20 03/23/20 03/23/20 18:59 06:59 18:59 Intake Total 700 540 Output Total 700 1800 Balance 0 -1260 Weight 128.367 kg Intake: Intake, IV Titration 500 Amount Sodium Chloride 0.9% 1, 500 000 ml @ 75 mls/hr IV . [id number] [facility] Rx#:[id number] Oral 200 540 Output: Urine 700 1800 Other: Voiding Method Toilet Toilet Diaper Diaper # Voids 1 1 - Exam -GENERAL: The patient is alert and oriented x3, not in any acute distress. Morbidly obese HEENT: Pupils are round and equally reacting to light. EOMI. No scleral icterus. No conjunctival pallor. Normocephalic, atraumatic. No pharyngeal erythema. No thyromegaly. CARDIOVASCULAR: S1 and S2 present. No murmurs, rubs, or gallops. PULMONARY: Chest is clear to auscultation, no wheezing or crackles. -ABDOMEN: Soft, RLQ and LLQ tenderness, no rebound tenderness, nondistended, normoactive bowel sounds. No palpable organomegaly. MUSCULOSKELETAL: No joint swelling or deformity. EXTREMITIES: No cyanosis, clubbing, or pedal edema. NEUROLOGICAL: Gross neurological examination did not reveal any focal deficits. SKIN: No rashes. No petechiae - Labs CBC & Chem 7: 03/23/20 07:42 03/23/20 07:42 Labs: Abnormal Lab Results - Last 24 Hours (Table) 03/22/20 03/22/20 03/22/20 Range/Units 09:06 15:27 16:51 Hgb (11.4-16.0) gm/dL Hct (34.0-46.0) % RDW (11.5-15.5) % Chloride 114 H (98-107) mmol/L Carbon Dioxide (22-30) mmol/L Glucose (74-99) mg/dL POC Glucose (mg/dL) 107 H (75-99) mg/dL Calcium 8.0 L (8.4-10.2) mg/dL Urine Blood Moderate H (Negative) Urine Bacteria Rare H (None) /hpf 03/23/20 03/23/20 03/23/20 Range/Units 06:50 07:42 07:42 Hgb 10.4 L (11.4-16.0) gm/dL Hct 32.9 L (34.0-46.0) % RDW 18.6 H (11.5-15.5) % Chloride 115 H (98-107) mmol/L Carbon Dioxide 18 L (22-30) mmol/L Glucose 164 H (74-99) mg/dL POC Glucose (mg/dL) 104 H (75-99) mg/dL Calcium 8.1 L (8.4-10.2) mg/dL Urine Blood (Negative) Urine Bacteria (None) /hpf Assessment and Plan Assessment: Assessment and plan -left lower abdominal pain, with possible referred pain to the RLQ area, with associated nausea and vomiting, with recent CT finding of fluid collection in the left lower quadrant from [facility]. Possibly related to ELEVATOR SERVICE TECHNICIAN shunt. Repeat CAT scan of the abdomen -Patient presented with vomiting blood. Possibly secondary to Martine Marlys tear from vomiting. With a stable hemoglobin. Has been on eliquis which is now held. Recent EGD-unremarkable. 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 She was already on Eliquis recommended on last admission by hematology team for 3 months till 05/2020. Currently Eliquis is on hold secondary to above. HEDIS REVIEW NURSE evaluated the p atient and they recommended to stop OCP and nexplanon device (Subcutaneously in the arm) -Right hydronephrosis, status post Recent right ureter double-J stent placement for a UP junction ureteral stone. Recent CAT scan showing only mild right hydronephrosis. Patient also with RLQ pain since stent placement Urinalysis showing moderate blood. Hemoglobin is stable. Consult urology -Nonalcoholic fatty liver disease -Diabetes mellitus type 2 -Chronic fibromyalgia -GERD -Hyperlipidemia -Irritable bowel syndrome -Morbid obesity BMI 51.8 -Bipolar disorder and PTSD -DVT prophylaxis: no anticoagulation in view of her possible vomiting blood -GI Prophylaxis: Ppi Overall prognosis is guarded
[2020-03-23] MEDS: IOPAMIDOL CONTRAST (ORAL USE) VIAL PO PRN ×2 (10:12→11:12)
[2020-03-23] MEDS: hydroCHLOROthiazide 25 MG TAB PO SCH (10:17)
[2020-03-23] MEDS: OXYMETAZOLINE 0.05% NASL SPRAY 1 SPRAY BOTTLE NASAL SCH ×2 (10:17→21:27)
--- NOTE | 2020-03-23 13:15 | CT ---
EXAMINATION TYPE: CT abdomen pelvis wo con DATE OF EXAM: 03/23/2020 HISTORY: LLQ fluid collection with pain CT DLP: 1857.2 mGycm. Automated Exposure Control for Dose Reduction was Utilized. TECHNIQUE: CT scan of the abdomen and pelvis is performed with oral but without IV contrast. COMPARISON: CT abdomen and pelvis 19 days ago and older CTs FINDINGS: Within the limitations of a non-contrast study, the following observations are made. LUNG BASES: No significant abnormality is appreciated. LIVER/GB: Liver is diffusely low dense consistent with diffuse fatty infiltration. Cholecystectomy cl ips. PANCREAS: No significant abnormality is seen. SPLEEN: No significant abnormality is seen. ADRENALS: No significant abnormality is seen. KIDNEYS: Interval removal of right ureter stent. Persistent fairly moderate hydronephrosis. BOWEL: Oral contrast reaches the level of the cecum. No suspicious small or large bowel dilatation. GENITAL ORGANS: Anteverted uterus. Tubal ligation clips along the periphery redemonstrated. New 3.4 x 2.3 cm right upper pelvic lesion favors ovarian etiology axial image 66 LYMPH NODES: No greater than 1cm abdominal or pelvic lymph nodes are appreciated. OSSEOUS STRUCTURES: No significant abnormality is seen. OTHER: Persistent partial visualization of drainage catheter in the left abdomen running through thin -walled fluid collection extending into the peritoneal cavity. Stable 9.2 x 4.6 cm focal thin-walled fluid collection in the left mid abdomen axial image 57. Hounsfield units average 6 on current study. No significant interval change. IMPRESSION: Stable 9.2 cm thin-walled fluid collection in the anterior abdominal wall left mid abdome n with transversing catheter. Etiology uncertain. Presumed related to catheter leak giving transversi ng catheter No suspicious new or acute findings to account for patient's symptoms of left lower quadr ant pain.
[2020-03-23] MEDS: HYDROcodone/APAP 5-325MG 1 EACH TAB PO PRN ×2 (15:56→23:35)
[2020-03-23 17:06] LABS: % Iron Saturation 16.13 (12.00-45.00); Iron 50 ug/dL (50-170); Total Iron Binding Capacity 310 ug/dL (228-460)
[2020-03-23 17:12] LABS: Ferritin 321.5 ng/mL (10.0-291.0); Folate, Serum 20.6 ng/mL
[2020-03-23 17:16] LABS: Glucose,Whole Blood 90 mg/dL (75-99)
[2020-03-23] MEDS: FOLIC ACID 1 MG TAB PO SCH (21:27)
[2020-03-23] MEDS: traZODone HCL 50 MG TAB PO SCH (21:27)
[2020-03-23] MEDS: PRAVASTATIN SODIUM 20 MG TAB PO SCH (21:27)
[2020-03-23] MEDS: TOPIRAMATE 25 MG TAB PO SCH (21:27)
[2020-03-23] MEDS: VERAPAMIL SR 180 MG TABLET.ER PO SCH (21:28)
[2020-03-23] MEDS: MELATONIN 5 MG TABLET PO PRN (23:26)
[2020-03-23 23:31] LABS: Glucose,Whole Blood 132 mg/dL (75-99)
[2020-03-24] MEDS: HYDROcodone/APAP 5-325MG 1 EACH TAB PO PRN ×4 (05:12→23:41)
[2020-03-24] MEDS: SODIUM CHLORIDE 0.9% 1,000 ML IV SCH ×2 (05:13→17:09)
[2020-03-24 06:22] LABS: Glucose,Whole Blood 103 mg/dL (75-99)
[2020-03-24] MEDS: PANTOPRAZOLE 40 MG TABLET PO SCH ×2 (06:23→17:10)
[2020-03-24] MEDS: GABAPENTIN 300 MG CAP PO SCH ×3 (08:31→21:06)
[2020-03-24] MEDS: metFORMIN 500 MG TAB PO SCH ×2 (08:31→17:09)
[2020-03-24] MEDS: AMITRIPTYLINE HCL 25 MG TAB PO SCH ×2 (08:32→21:06)
[2020-03-24] MEDS: OXYMETAZOLINE 0.05% NASL SPRAY 1 SPRAY BOTTLE NASAL SCH ×2 (08:32→21:07)
[2020-03-24] MEDS: ARIPiprazole 5 MG TAB PO SCH (08:32)
[2020-03-24] MEDS: acetaZOLAMIDE 250 MG TAB PO SCH ×2 (08:32→21:07)
[2020-03-24] MEDS: buPROPion XL 300 MG TAB.ER.24H PO SCH (08:32)
[2020-03-24] MEDS: hydroCHLOROthiazide 25 MG TAB PO SCH (08:32)
[2020-03-24 09:44] LABS: Anisocytosis Slight; Basophils % (A) 1 %; Eosinophils # (A) 0.3 k/uL (0-0.7); Eosinophils % (A) 5 %; HGB 10.5 gm/dL (11.4-16.0); Hypochromasia Moderate; Lymphocytes # (A) 1.5 k/uL (1.0-4.8); Lymphocytes % (A) 28 %; MCH 25.3 pg (25.0-35.0); MCHC 30.8 g/dL (31.0-37.0); MCV 82.2 fL (80.0-100.0); Monocytes # (A) 0.2 k/uL (0-1.0); Monocytes % (A) 4 %; Neutrophils # (A) 3.5 k/uL (1.3-7.7); Neutrophils % (A) 62 %; Platelet Count 230 k/uL (150-450); RBC 4.14 m/uL (3.80-5.40); RDW 18.6 % (11.5-15.5); WBC 5.6 k/uL (3.8-10.6)
[2020-03-24 09:55] LABS: African American GFR (CKD) >90 (>60 ml/min/1.73 sqM); Anion Gap 7 mmol/L; Blood Urea Nitrogen 6 mg/dL (7-17); Calcium 8.6 mg/dL (8.4-10.2); Carbon Dioxide 20 mmol/L (22-30); Chloride 112 mmol/L (98-107); Glucose 166 mg/dL (74-99); Magnesium 1.9 mg/dL (1.6-2.3); Non-African American GFR(CKD) 89 (>60 ml/min/1.73 sqM); Potassium 3.6 mmol/L (3.5-5.1); Sodium 139 mmol/L (137-145)
--- NOTE | 2020-03-24 10:20 | P.PN ---
Subjective Progress Note Date: 03/24/20 the patient was seen yesterday in consultation for follow-up from a ureteroscopy and laser lithotripsy on the right side by . She had a CAT scan in [place] and one again yesterday. There is no remaining stone. There is some mild hydronephrosis which is to be expected post treatment. Her urine was clear. She is not having a right-sided pain. From urologic standpoint nothing further needs to be done. She should follow-up Dr. Mccloud in the office. Objective - Vital Signs Vital signs: Vital Signs Temp 98.1 F 03/24/20 03:00 Pulse 92 03/24/20 03:00 Resp 18 03/24/20 03:00 BP 131/63 03/24/20 03:00 Pulse Ox 97 03/24/20 03:00 Intake & Output 03/23/20 03/24/20 03/24/20 18:59 06:59 18:59 Intake Total 1615 600 Output Total 1300 1950 Balance 315 -1350 Intake: Intake, IV Titration 375 Amount Sodium Chloride 0.9% 1, 375 000 ml @ 75 mls/hr IV . [id number] [facility] Rx#:[id number] Oral 1240 600 Output: Urine 1300 1950 Other: Voiding Method Toilet Toilet # Voids 1 # Bowel Movements 1 - Labs CBC & Chem 7: 03/24/20 09:23 03/24/20 09:23 Labs: Abnormal Lab Results - Last 24 Hours (Table) 03/23/20 03/23/20 03/24/20 Range/Units 07:42 23:29 06:20 Hgb (11.4-16.0) gm/dL MCHC (31.0-37.0) g/dL RDW (11.5-15.5) % Chloride (98-107) mmol/L Carbon Dioxide (22-30) mmol/L BUN (7-17) mg/dL Glucose (74-99) mg/dL POC Glucose (mg/dL) 132 H 103 H (75-99) mg/dL Ferritin 321.5 H (10.0-291.0) ng/mL 03/24/20 03/24/20 Range/Units 09:23 09:23 Hgb 10.5 L (11.4-16.0) gm/dL MCHC 30.8 L (31.0-37.0) g/dL RDW 18.6 H (11.5-15.5) % Chloride 112 H (98-107) mmol/L Carbon Dioxide 20 L (22-30) mmol/L BUN 6 L (7-17) mg/dL Glucose 166 H (74-99) mg/dL POC Glucose (mg/dL) (75-99) mg/dL Ferritin (10.0-291.0) ng/mL
[2020-03-24 11:59] LABS: Glucose,Whole Blood 105 mg/dL (75-99)
[2020-03-24] MEDS ORDERED: CYANOCOBALAMIN 1,000 MCG/ML 1 ML VIAL IM SCH (12:00)
--- NOTE | 2020-03-24 12:01 | P.PN ---
Subjective Progress Note Date: 03/24/20 Principal diagnosis: Anemia on AC therapy Plan for patient to transfer to [facility] for Neurosurgery care - She has had worsening headaches, nausea, and persistent fluid collection and vomiting. 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 Ovarian thrombosis unable to definitinate, although with other acute problems rec continue to hold and treat prophylaxis anticoagulation and defer to neuro surgery and primary physicians at [facility]. She can foollow up with Dr. Mckinley in office in a couple weeks after discharge from outside hospital. Objective - Vital Signs Vital signs: Vital Signs Temp 98.1 F 03/24/20 09:00 Pulse 91 03/24/20 09:00 Resp 16 03/24/20 09:00 BP 109/69 03/24/20 09:00 Pulse Ox 98 03/24/20 09:00 Intake & Output 03/23/20 03/24/20 03/24/20 18:59 06:59 18:59 Intake Total 1615 600 400 Output Total 1300 1950 700 Balance 315 -1350 -300 Intake: Intake, IV Titration 375 Amount Sodium Chloride 0.9% 1, 375 000 ml @ 75 mls/hr IV . [id number] ROSALIE Rx#:[id number] Oral 1240 600 400 Output: Urine 1300 1950 700 Other: Voiding Method Toilet Toilet Toilet # Voids 1 # Bowel Movements 1 - Exam Constitutional General appearance: cooperative, morbidly obese, no acute distress - EENT Eyes: EOMI, PERRLA ENT: NA/AT, normal oropharynx - Neck Neck: normal ROM - Respiratory Respiratory: bilateral: CTA - Cardiovascular Rhythm: regular Heart sounds: normal: S1, S2 - Gastrointestinal bilateral flank Right greater than left General gastrointestinal: normal bowel sounds, soft, tenderness LLQ to palpation - Integumentary Integumentary: pale - Neurologic Neurologic: CNII-XII intact - Musculoskeletal Musculoskeletal: generalized weakness, strength equal bilaterally - Psychiatric Psychiatric: A&O x's 3, appropriate affect, intact judgment & insight - Labs CBC & Chem 7: 03/24/20 09:23 03/24/20 09:23 Labs: Abnormal Lab Results - Last 24 Hours (Table) 03/23/20 03/23/20 03/24/20 Range/Units 07:42 23:29 06:20 Hgb (11.4-16.0) gm/dL MCHC (31.0-37.0) g/dL RDW (11.5-15.5) % Chloride (98-107) mmol/L Carbon Dioxide (22-30) mmol/L BUN (7-17) mg/dL Glucose (74-99) mg/dL POC Glucose (mg/dL) 132 H 103 H (75-99) mg/dL Ferritin 321.5 H (10.0-291.0) ng/mL 03/24/20 03/24/20 Range/Units 09:23 09:23 Hgb 10.5 L (11.4-16.0) gm/dL MCHC 30.8 L (31.0-37.0) g/dL RDW 18.6 H (11.5-15.5) % Chloride 112 H (98-107) mmol/L Carbon Dioxide 20 L (22-30) mmol/L BUN 6 L (7-17) mg/dL Glucose 166 H (74-99) mg/dL POC Glucose (mg/dL) (75-99) mg/dL Ferritin (10.0-291.0) ng/mL Assessment and Plan Plan: 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 She has been on anticoagulation. Was held for N,V last week, resumed and then her N,V returned. Possible intolerance to anticoagulant? After work up, if felt benefit of anticoagulation still outweighs risk, may try other anticoagulant to see if better tolerated. Tile Machine Operator has seen pt On hold for potential need of Shunt revision - Transfer in place to [facility] Hematemesis with nausea Pt has had similar episodes in the past. She has not vomited since admit. Have requested specimen be sent for occult. Hgb is stable for pt, her Hgb is typically in the 10-11 range. No transfusion at this time. Cont to monitor CBC GI has seen pt Iron deficiency anemia Pt will continue with her scheduled iron infusion next week. 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
[2020-03-24] MEDS: ONDANSETRON 4 MG/2 ML VIAL IVP PRN (13:51)
[2020-03-24 15:16] VITALS: RESP 18
[2020-03-24 17:01] LABS: Glucose,Whole Blood 98 mg/dL (75-99)
[2020-03-24 20:33] LABS: Glucose,Whole Blood 102 mg/dL (75-99)
[2020-03-24] MEDS: VERAPAMIL SR 180 MG TABLET.ER PO SCH (21:06)
[2020-03-24] MEDS: TOPIRAMATE 25 MG TAB PO SCH (21:06)
[2020-03-24] MEDS: PRAVASTATIN SODIUM 20 MG TAB PO SCH (21:06)
[2020-03-24] MEDS: traZODone HCL 50 MG TAB PO SCH (21:06)
[2020-03-24] MEDS: FOLIC ACID 1 MG TAB PO SCH (21:06)
--- NOTE | 2020-03-24 21:10 | P.DS ---
Providers Date of admission: 03/22/20 13:52 Attending physician: George Soni MD Consults: 03/21/20 18:31 Consult Physician Routine Consulting Provider: Sang Mckinley Consult Reason/Comments: gi hemorrhage, coagulation Do you want consulting provider notified?: Yes 03/21/20 18:39 Consult Physician Urgent Consulting Provider: Seth Rogers Consult Reason/Comments: eval for possible ovarian thrombus Do you want consulting provider notified?: Yes 03/22/20 13:45 Consult Physician Urgent Consulting Provider: Juan M Garcias Consult Reason/Comments: right LLQ pain , hydronephrosis Do you want consulting provider notified?: Yes Primary care physician: [facility] Course: Assessment and diagnoses - fluid collection in the left lower quadrant mostly 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 Plan to transfer to [facility] to be evaluated by neurosurgery -Recurrent vomiting with history of blood at times , secondary to her fluid collection in the left lower quadrant abdomen -Hematemesis, for recurrent vomiting while patient on Eliquis, Eliquis is on hold. Vomiting is better controlled. Hemoglobin is stable , Recent EGD- unremarkable. 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 She was already on Eliquis recommended on last admission by hematology team for 3 months till 05/2020. Currently Eliquis is on hold secondary to above. SPONSORSHIP MANAGER evaluated the patient and they recommended to stop OCP and nexplanon device (Subcutaneously i n the arm), the decision to start Eliquis will be deferred to the neurosurgeon and the primary physician at her report as per hour hematology team. - recent history Right hydronephrosis, status post Recent right ureter double-J stent placement for a UP junction ureteral stone. Recent CAT scan showing only mild right hydronephrosis. Patient also with RLQ pain since stent placement Urinalysis showing moderate blood. Hemoglobin is stable. Consult urology:nothing further needs to be done. She should follow-up Dr. Mccloud in the office. -Nonalcoholic fatty liver disease -Diabetes mellitus type 2 -Chronic fibromyalgia -GERD -Hyperlipidemia -Irritable bowel syndrome -Morbid obesity BMI 51.8 -Bipolar disorder and PTSD -DVT prophylaxis: no anticoagulation in view of her possible vomiting blood -GI Prophylaxis: Ppi Hospital course: This is a pleasant 30 years old female with multiple medical problems, she has history of cranial peritoneal shunt with Dr. Ruiz the neurosurgeon at [facility]. He has recently changed her shunt catheter last January as it was clogged, Last time she saw him was 03/01, he is aware about some fluid collection around her shunt catheter in the left lower quadrant, he told her to keep monitoring with no need for surgical intervention, she said that she had another CAT scan at [facility] showing unchanged fluid collection about 8 cm in the left lower quadrant. This time she presents because she vomited blood 4 times one day previous to hospitalization, Of note the patient was recently earlier this month started on Eliquis for possible ovarian vein thrombosis, she's been evaluated extensively before by hematology Dr. Mckinley and manager automotive on 02/26 (please refer to their notes for more details), patient was started on Eliquis for 3 months till May [address] Mckinley recommendations Hemoglobin remained stable throughout. Baseline of 10-11. Most likely patient had vomiting secondary to this fluid collection if this is still there or worse and vomiting causing her possible Syl Ashvin tear and mild hematemesis as per GI. Currently her vomiting is controlled with medication. And pain is better controlled with [place] 5-325 mg as needed. Patient still has tenderness in the left lower quadrant area. Repeat CAT scan yesterday 03/23 showing larger 9.2 cm thin-walled fluid collection in the left mid abdomen with transversing catheter. Etiology uncertain. Presumptive related to catheter leak given the transverse catheter. Because no neurosurgery service is available in our hospital, patient needed to her level of care, I called [facility] and discussed the case with the transfer team for accepting the patient and her neurosurgeon Dr. Ruiz who is also currently and covered by Dr. keane, however he refused to accept the patient and he refused to discuss the case with me for unknown reason and recommended through his transfer team to send the patient [facility] in his stated. I discussed the case with the patient and she is agreeable to go to [facility] I discussed the case with the neurointensive is Dr. Vergara were accepted the patient with surgical consult with Dr. Paredes Problems and management plan were discussed with the patient and he verbalized understanding and acceptance Patient was found stable to be transferred to [facility] in guarded prognosis. Patient is also recommended to follow-up with Dr. Mckinley cherry pitter in 2 weeks and she already has an appointment with him on 04/11/20 at 2:45 PM. And follow- up with her manager automotive Dr. Simmons in 1-2 weeks after discharge with recommendation to take her off her oral contraceptive pills and hormonal therapy under her arm Physical exam Gen: patient is a AAOx3, no distress. Morbidly obese CVS: S1-S2, RRR, no murmur Lungs: B/L CTA, no wheezing -Abdomen: soft, no distention, left lower quadrantess, no guarding or rebound tenderness. positive bowel sounds Extremity: no leg edema or induration Time spent more than 35 minutes Plan - Discharge Summary Discharge Rx Participant: No New Discharge Prescriptions: No Action Pravastatin Sodium [Pravachol] 20 mg PO HS LORazepam [Ativan] 1 mg PO HS traZODone HCL 50 mg PO HS buPROPion HCL [Wellbutrin XL] 300 mg PO DAILY metFORMIN HCL 500 mg PO BID Topiramate 50 mg PO HS busPIRone HCL 15 mg PO TID PRN PRN Reason: Anxiety ARIPiprazole [Abilify] 5 mg PO DAILY acetaZOLAMIDE [Diamox] 500 mg PO BID ARIPiprazole 20 mg PO HS Verapamil HCl [Verapamil ER] 180 mg PO HS Amitriptyline HCl [Elavil] 75 mg PO BID Gabapentin 600 mg PO TID Ondansetron [Zofran ODT] 4 mg PO Q8HR PRN PRN Reason: nausea Folic Acid 1 mg PO HS Etonogestrel [Nexplanon] 68 mg SQ ONCE OXcarbazepine [Oxtellar Xr] 150 mg PO HS Apixaban [Eliquis] See Taper PO DIRECTED hydroCHLOROthiazide 25 mg PO DAILY Melatonin 10 mg PO HS PRN PRN Reason: Insomnia Discharge Medication List Pravastatin Sodium [Pravachol] 20 mg PO HS 01/20/18 [History] LORazepam [Ativan] 1 mg PO HS 11/24/18 [History] buPROPion HCL [Wellbutrin XL] 300 mg PO DAILY 12/15/19 [History] traZODone HCL 50 mg PO HS 12/15/19 [History] ARIPiprazole 20 mg PO HS 01/09/20 [History] ARIPiprazole [Abilify] 5 mg PO DAILY 01/09/20 [History] Topiramate 50 mg PO HS 01/09/20 [History] acetaZOLAMIDE [Diamox] 500 mg PO BID 01/09/20 [History] busPIRone HCL 15 mg PO TID PRN 01/09/20 [History] metFORMIN HCL 500 mg PO BID 01/09/20 [History] Amitriptyline HCl [Elavil] 75 mg PO BID 01/24/20 [History] Verapamil HCl [Verapamil ER] 180 mg PO HS 01/24/20 [History] Etonogestrel [Nexplanon] 68 mg SQ ONCE 02/20/20 [History] Folic Acid 1 mg PO HS 02/20/20 [History] Gabapentin 600 mg PO TID 02/20/20 [History] Ondansetron [Zofran ODT] 4 mg PO Q8HR PRN 02/20/20 [History] OXcarbazepine [Oxtellar Xr] 150 mg PO HS 02/27/20 [History] Apixaban [Eliquis] See Taper PO DIRECTED 03/04/20 [History] Melatonin 10 mg PO HS PRN 03/15/20 [History] hydroCHLOROthiazide 25 mg PO DAILY 03/15/20 [History] Follow up Appointment(s)/Referral(s): Sang Mckinley MD [STAFF PHYSICIAN] - 04/11/20 2:45 pm Dre Mccloud MD [STAFF PHYSICIAN] - 2 Weeks (03/22/20 Office is closed.) Olvin Keenan MD [Primary Care Provider] - 03/28/20 8:00 am (Appt is with Linnette ROGER) Nohemi Vyas MD [STAFF PHYSICIAN] - 1 Week (03/22/20 office is currently closed.) Mary Simmons MD [REFERRING] - 10 Days (03/22/20 Office is currently closed.) Activity/Diet/Wound Care/Special Instructions: [facility] can be reached by calling [phone]. They are the supplier that your insurance requires you go through your diabetic supplies.
[2020-03-24 23:11] VITALS: BP 123/69; PULSE 95; TEMP 98.6
[2020-03-24] MEDS: MELATONIN 5 MG TABLET PO PRN (23:41)
== END 2020-03-25 01:02 | disposition short-term general hospital (02) | DRG 91 ==
LOC: EC 17:47 → 1SOBS 18:31 → OBSVTOIN 03-22 13:52
PROVIDERS: ADMIT Internal Medicine; ATTEND Internal Medicine
DX: T85.09XA Other mechanical complication of ventricular intracranial (communicating) shunt, initial encounter (principal); K22.6 Gastro-esophageal laceration-hemorrhage syndrome; I82.890 Acute embolism and thrombosis of other specified veins; N13.30 Unspecified hydronephrosis; Z68.43 Body mass index [BMI] 50.0-59.9, adult; K76.0 Fatty (change of) liver, not elsewhere classified; E11.9 Type 2 diabetes mellitus without complications; D50.9 Iron deficiency anemia, unspecified; F31.9 Bipolar disorder, unspecified; E66.01 Morbid (severe) obesity due to excess calories; F60.9 Personality disorder, unspecified; Z20.828 Contact with and (suspected) exposure to other viral communicable diseases; E78.5 Hyperlipidemia, unspecified; M79.7 Fibromyalgia; K21.00 Gastro-esophageal reflux disease with esophagitis, without bleeding; F43.10 Post-traumatic stress disorder, unspecified; K58.9 Irritable bowel syndrome, unspecified; N92.0 Excessive and frequent menstruation with regular cycle; G43.909 Migraine, unspecified, not intractable, without status migrainosus; Z79.01 Long term (current) use of anticoagulants; Z79.84 Long term (current) use of oral hypoglycemic drugs; Z79.899 Other long term (current) drug therapy; Z87.19 Personal history of other diseases of the digestive system; Z87.442 Personal history of urinary calculi; Z90.49 Acquired absence of other specified parts of digestive tract; Z98.51 Tubal ligation status; Z98.891 History of uterine scar from previous surgery; Z62.810 Personal history of physical and sexual abuse in childhood; Z87.898 Personal history of other specified conditions; Z98.890 Other specified postprocedural states; Z88.6 Allergy status to analgesic agent; Z82.49 Family history of ischemic heart disease and other diseases of the circulatory system; Z83.3 Family history of diabetes mellitus; Z83.49 Family history of other endocrine, nutritional and metabolic diseases
CPT/HCPCS: 36415; 74176; 80048; 80053; 81001; 82607; 82728; 82746; 83540; 83550; 83735; 83921; 84703; 85025; 85610; 85730; 87635; 96361; 96374; 96375; 99284

== ENCOUNTER → 2020-04-26 | Outpatient (CLI) | payer OTHER ==
--- NOTE | 2020-04-26 15:46 | CT ---
EXAMINATION TYPE: CT abdomen wo con DATE OF EXAM: 04/26/2020 COMPARISON: 03/23/2020 INDICATION: Benign intracranial hypertension, lump on left side abdomen DLP: 1554.4 mGycm, Automated exposure control for dose reduction was used. CONTRAST: None Study performed without Oral Contrast TECHNIQUE: Axial images were obtained from above the diaphragm to the pubic rami in the axial plane a t 5 mm thick sections. Reconstructed images are reviewed on the computer in the coronal plane. FINDINGS: Limited CT sections are obtained the lung bases. The lung bases are clear. CT ABDOMEN: Liver: Normal Spleen: Normal Pancreas: Normal Adrenal glands: The adrenal glands are normal. Gallbladder: Surgically absent Kidneys: No masses are evident. No hydronephrosis is present. No cysts are present. No renal stone s are identified. Aorta: Normal Inferior vena cava: Normal. CT PELVIS: There appears be a cyst with the catheter in the anterior left hemipelvis. This is marked by BB. This is smaller than the comparison currently measures 8.3 x 4.9 cm. Previous measurement 9.2 x 4.6 cm. Catheter transverses the superior and extends into the pelvis. The distal tip is not identi fied. Loops of bowel within the abdomen and pelvis are normal. There are loops of bowel which are incom pletely distended or lack oral contrast limiting their evaluation. IMPRESSIONS: 1. Fluid-filled pocket in the subcutaneous tissue which the shunt catheter transverses. This is slig htly smaller than the comparison.
== END | disposition home or self-care (01) ==
LOC: RADCTMAIN 11:11
PROVIDERS: ATTEND Neurological Surgery
DX: G93.2 Benign intracranial hypertension (principal)
CPT/HCPCS: 74150

== ENCOUNTER → 2020-06-15 | Outpatient (CLI) | payer OTHER ==
--- NOTE | 2020-06-16 09:39 | USB ---
Reason for exam: follow-up at short interval from prior study. History: Family history of breast cancer in paternal aunt and breast cancer in paternal grandmother. Physical Findings: Nurse Summary: superficial 0.5cm nodule in axilla (nurse dw). US Breast Limited LT Left limited breast ultrasound including focal area of concern, retroareolar and axilla demonstrates a 12 x 3 x 5mm lobular, hypoechoic lesion at 2 o'clock, seen on previous versus 11 x 11 x 7mm on 11/15/20 and 13 x 9 x 7mm on 09/21/19, a 10mm oval lymph node at the axilla tail, a 6mm oval lymph node at the axilla tail and a 5 x 5 x 6mm solid, oval, superficial lesion at patient's palpable at axilla. These results were verbally communicated with the patient and result sheet given to the patient on 06/15/20. ASSESSMENT: Probably benign, BI-RAD 3 RECOMMENDATION: Ultrasound of the left breast in 1 year. Manage on a clinical basis with regard to palpable dermatologic lesion at the axilla.
== END | disposition home or self-care (01) ==
LOC: RADUSWWP 15:02
PROVIDERS: ATTEND Family Medicine
DX: N63.20 Unspecified lump in the left breast, unspecified quadrant (principal)

== ENCOUNTER 2020-06-17 20:56 | Emergency (ER) | payer OTHER ==
[2020-06-17 21:13] VITALS: RESP 18; TEMP 98.2
--- NOTE | 2020-06-17 21:26 | ED ---
General Adult HPI - General Chief complaint: Chest Pain Stated complaint: Chest Pain,Vomiting blood,abd pain Time Seen by Provider: 06/17/20 21:21 Source: patient Mode of arrival: ambulatory Limitations: no limitations - History of Present Illness Initial comments: Patient presents the ED complaining of having epigastric abdominal pain/lower chest pain and hematemesis since this morning. Patient states that she has had these symptoms intermittently for the past 6 years. 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 Patient denies trauma or injury, fever or chills, headache, focal neuro deficit, neck/arm/jaw/back pain, pleuritic pain, cough or cold symptoms, dyspnea, palpitations, dizziness or lightheadedness, flank pain, diarrhea or constipation, bloody or melanotic stool, dysuria/hematuria/urinary frequency/urinary symptoms, leg or calf swelling or pain, or any other symptoms or complaints. - Related Data Home Medications Medication Instructions Recorded Confirmed Pravastatin Sodium [Pravachol] 20 mg PO HS 01/20/18 06/17/20 LORazepam [Ativan] 1 mg PO HS 11/24/18 06/17/20 buPROPion HCL [Wellbutrin XL] 300 mg PO DAILY 12/15/19 06/17/20 traZODone HCL 50 mg PO HS 12/15/19 06/17/20 ARIPiprazole 20 mg PO HS 01/09/20 06/17/20 ARIPiprazole [Abilify] 5 mg PO DAILY 01/09/20 06/17/20 Topiramate 50 mg PO HS 01/09/20 06/17/20 acetaZOLAMIDE [Diamox] 250 mg PO BID 01/09/20 06/17/20 busPIRone HCL 15 mg PO TID PRN 01/09/20 06/17/20 Amitriptyline HCl [Elavil] 75 mg PO BID 01/24/20 06/17/20 Verapamil HCl [Verapamil ER] 180 mg PO HS 01/24/20 06/17/20 Etonogestrel [Nexplanon] 68 mg SQ ONCE 02/20/20 06/17/20 Gabapentin 600 mg PO TID 02/20/20 06/17/20 OXcarbazepine [Oxtellar Xr] 150 mg PO HS 02/27/20 06/17/20 Apixaban [Eliquis] 5 mg PO BID 03/04/20 06/17/20 hydroCHLOROthiazide 25 mg PO DAILY 03/15/20 06/17/20 Omeprazole 40 mg PO BID 06/17/20 06/17/20 Ondansetron [Zofran] 4 mg PO Q6H PRN 06/17/20 06/17/20 Allergies Allergy/AdvReac Type Severity Reaction Status Date / Time NSAIDS (Non-Steroidal AdvReac Unknown Verified 06/17/20 22:20 Anti-Inflamma Review of Systems ROS Statement: Those systems with pertinent positive or pertinent negative responses have been documented in the HPI. ROS Other: All systems not noted in ROS Statement are negative. Past Medical History Past Medical History: Diabetes Mellitus, Fibromyalgia, GERD/Reflux, GI Bleed, Hyperlipidemia Additional Past Medical History / Comment(s): gallstones, kidney stones, IBS, migraines, tachycardia, Martine- Guevara tear, blood clot History of Any Multi-Drug Resistant Organisms: None Reported Past Surgical History: Section, Cholecystectomy, Tubal Ligation Additional Past Surgical History / Comment(s): neck biopsy (lymph node ) d&c; LP shunt May 13 2019 feb 0211/2019 -revision, stent/ lithotripsy on left, cystoscopy, Past Anesthesia/Blood Transfusion Reactions: No Reported Reaction Past Psychological History: Anxiety, Bipolar, Depression, PTSD Smoking Status: Never smoker Past Alcohol Use History: Rare Past Drug Use History: Marijuana - Past Family History Mother Family Medical History: Diabetes Mellitus, Hyperlipidemia, Hypertension, Myocardial Infarction ([place]) Additional Family Medical History / Comment(s): [place] X 3 Father Family Medical History: Congestive Heart Failure (CHF), Hyperlipidemia, Hypertension, Myocardial Infarction ([place]) Additional Family Medical History / Comment(s): mi x 3 Son(s) Family Medical History: No Reported History General Exam Limitations: no limitations General appearance: alert, in no apparent distress Head exam: Present: atraumatic, normocephalic Eye exam: Present: normal appearance, EOMI ENT exam: Present: normal oropharynx, mucous membranes moist Neck exam: Present: other (Trachea is in midline) Respiratory exam: Present: normal lung sounds bilaterally. Absent: respiratory distress, wheezes, rales, rhonchi, stridor, chest wall tenderness Cardiovascular Exam: Present: regular rate, normal rhythm, normal heart sounds, other (Normal radial pulses bilaterally) GI/Abdominal exam: Present: soft, other (Mild epigastric abdominal tenderness; obese abdomen). Absent: distended, guarding, rebound Extremities exam: Present: other (Negative Homans sign bilaterally). Absent: tenderness, pedal edema, calf tenderness Back exam: Absent: CVA tenderness (R), CVA tenderness (L) Neurological exam: Present: alert, oriented X3. Absent: motor sensory deficit Psychiatric exam: Present: normal affect, normal mood Skin exam: Present: warm, dry, intact, normal color Course Vital Signs 06/17/20 06/17/20 21:10 21:46 Temperature 98.2 F Pulse Rate 120 H 93 Respiratory 18 18 Rate Blood Pressure 130/82 125/79 O2 Sat by Pulse 98 98 Oximetry - Reevaluation(s) Reevaluation #1: 06/17/20 22:44 Patient denies development of any new symptoms while in the ED. Patient remains alert and breathing comfortably with a normal room air oxygen saturation. Patient has not had any vomiting/hematemesis while in the ED. Patient's abdomen remains soft and without any surgical signs on examination. Patient is aware of her test results, and she feels comfortable going home at this time. Patient was counseled about abdominal pain, chest pain and hematemesis. Patient was clearly explained return and follow-up instructions, and she feels comfortable with this plan. Patient was instructed to follow up closely with her primary care provider. EKG Findings - EKG Comments: EKG Findings:: Normal sinus rhythm, ventricular rate of 97 bpm, normal [place] and QRS intervals, minimally prolonged QTc interval of 477 ms, no ectopy, normal axis, no ST or T-wave abnormality Medical Decision Making - Medical Decision Making Patient's labs are fairly unremarkable. Patient is afebrile and without leukocytosis. Patient has a nonsurgical abdominal exam. Patient's hemoglobin is within normal limits, and has increased when compared to her prior level. Patient's BUN is within normal limits. Patient has not had any vomiting/hematemesis while in the ED. Patient is no longer tachycardic and she remains normotensive. I think that significant hematemesis/GI bleeding is quite unlikely. Patient's EKG is fairly unremarkable, and patient's troponin is negative. Patient's chest x-ray is unremarkable. I do not think the patient's symptoms are from a cardiac or emergent medical condition. Will discharge patient home at this time with instructions for close outpatient PCP follow-up. Patient was instructed to have a low threshold for return to the ED should her symptoms worsen. - Lab Data Result diagrams: 06/17/20 21:33 06/17/20 21:33 Lab Results 06/17/20 06/17/20 06/17/20 Range/Units 21:33 21:33 21:33 WBC 10.0 (3.8-10.6) k/uL RBC 4.97 (3.80-5.40) m/uL Hgb 13.9 (11.4-16.0) gm/dL Hct 42.1 (34.0-46.0) % MCV 84.7 (80.0-100.0) fL MCH 28.0 (25.0-35.0) pg MCHC 33.0 (31.0-37.0) g/dL RDW 15.7 H (11.5-15.5) % Plt Count 256 (150-450) k/uL MPV 6.8 Neutrophils % 69 % Lymphocytes % 22 % Monocytes % 4 % Eosinophils % 4 % Basophils % 0 % Neutrophils # 6.9 (1.3-7.7) k/uL Lymphocytes # 2.2 (1.0-4.8) k/uL Monocytes # 0.4 (0-1.0) k/uL Eosinophils # 0.4 (0-0.7) k/uL Basophils # 0.0 (0-0.2) k/uL PT 9.9 (9.0-12.0) sec INR 0.9 (<1.2) APTT 22.6 (22.0-30.0) sec Sodium 140 (137-145) mmol/L Potassium 3.8 (3.5-5.1) mmol/L Chloride 106 (98-107) mmol/L Carbon Dioxide 26 (22-30) mmol/L Anion Gap 8 mmol/L BUN 11 (7-17) mg/dL Creatinine 0.70 (0.52-1.04) mg/dL Est GFR (CKD-EPI)AfAm >90 (>60 ml/min/1.73 sqM) Est GFR (CKD-EPI)NonAf >90 (>60 ml/min/1.73 sqM) Glucose 116 H (74-99) mg/dL Calcium 9.2 (8.4-10.2) mg/dL Magnesium 1.9 (1.6-2.3) mg/dL Total Bilirubin 0.6 (0.2-1.3) mg/dL AST 27 (14-36) U/L ALT 40 H (4-34) U/L Alkaline Phosphatase 120 (38-126) U/L Troponin I (0.000-0.034) ng/mL Total Protein 6.3 (6.3-8.2) g/dL Albumin 3.6 (3.5-5.0) g/dL Lipase 45 (23-300) U/L HCG, Qual Not Detected 06/17/20 Range/Units 21:33 WBC (3.8-10.6) k/uL RBC (3.80-5.40) m/uL Hgb (11.4-16.0) gm/dL Hct (34.0-46.0) % MCV (80.0-100.0) fL MCH (25.0-35.0) pg MCHC (31.0-37.0) g/dL RDW (11.5-15.5) % Plt Count (150-450) k/uL MPV Neutrophils % % Lymphocytes % % Monocytes % % Eosinophils % % Basophils % % Neutrophils # (1.3-7.7) k/uL Lymphocytes # (1.0-4.8) k/uL Monocytes # (0-1.0) k/uL Eosinophils # (0-0.7) k/uL Basophils # (0-0.2) k/uL PT (9.0-12.0) sec INR (<1.2) APTT (22.0-30.0) sec Sodium (137-145) mmol/L Potassium (3.5-5.1) mmol/L Chloride (98-107) mmol/L Carbon Dioxide (22-30) mmol/L Anion Gap mmol/L BUN (7-17) mg/dL Creatinine (0.52-1.04) mg/dL Est GFR (CKD-EPI)AfAm (>60 ml/min/1.73 sqM) Est GFR (CKD-EPI)NonAf (>60 ml/min/1.73 sqM) Glucose (74-99) mg/dL Calcium (8.4-10.2) mg/dL Magnesium (1.6-2.3) mg/dL Total Bilirubin (0.2-1.3) mg/dL AST (14-36) U/L ALT (4-34) U/L Alkaline Phosphatase (38-126) U/L Troponin I <0.012 (0.000-0.034) ng/mL Total Protein (6.3-8.2) g/dL Albumin (3.5-5.0) g/dL Lipase (23-300) U/L HCG, Qual Disposition Clinical Impression: Chest pain, Abdominal pain Narrative: Reported hematemesis Disposition: HOME SELF-CARE Condition: Stable Instructions (If sedation given, give patient instructions): Chest Pain (ED), Abdominal Pain (ED), Gastrointestinal Bleeding (ED) Additional Instructions: Return to the ER immediately should you develop new or worsening pain, a fever, increased bleeding, shortness of breath, feeling dizzy or faint, or new or worsening symptoms. Follow up closely with your primary care provider. Is patient prescribed a controlled substance at d/c from ED?: No Referrals: Olvin Keenan MD [Primary Care Provider] - 1-2 days Time of Disposition: 22:46
[2020-06-17] MEDS ORDERED: MAG HYDROX/AL HYDROX/SIMETH 30 ML, HYOSCYAMINE ELIXIR 10 ML, LIDOCAINE VISCOUS 2% 10 ML PO STA ×3 (21:31)
[2020-06-17] MEDS ORDERED: ONDANSETRON 4 MG/2 ML VIAL IVP STA (21:31)
[2020-06-17 21:45] LABS: Basophils % (A) 0 %; Eosinophils # (A) 0.4 k/uL (0-0.7); Eosinophils % (A) 4 %; HCT 42.1 % (34.0-46.0); HGB 13.9 gm/dL (11.4-16.0); Lymphocytes # (A) 2.2 k/uL (1.0-4.8); Lymphocytes % (A) 22 %; MCV 84.7 fL (80.0-100.0); Mean Platelet Volume 6.8; Monocytes # (A) 0.4 k/uL (0-1.0); Monocytes % (A) 4 %; Neutrophils # (A) 6.9 k/uL (1.3-7.7); Neutrophils % (A) 69 %; Platelet Count 256 k/uL (150-450); RBC 4.97 m/uL (3.80-5.40); RDW 15.7 % (11.5-15.5)
[2020-06-17 21:53] LABS: INR 0.9 (<1.2); Partial Thromboplastin Time 22.6 sec (22.0-30.0); Prothrombin Time 9.9 sec (9.0-12.0)
[2020-06-17 21:55] LABS: HCG,Qualitative Serum Not Detected
[2020-06-17 21:56] LABS: ALT 40 U/L (4-34); AST 27 U/L (14-36); African American GFR (CKD) >90 (>60 ml/min/1.73 sqM); Albumin 3.6 g/dL (3.5-5.0); Alkaline Phosphatase 120 U/L (38-126); Anion Gap 8 mmol/L; Blood Urea Nitrogen 11 mg/dL (7-17); Calcium 9.2 mg/dL (8.4-10.2); Carbon Dioxide 26 mmol/L (22-30); Chloride 106 mmol/L (98-107); Glucose 116 mg/dL (74-99); Lipase 45 U/L (23-300); Magnesium 1.9 mg/dL (1.6-2.3); Non-African American GFR(CKD) >90 (>60 ml/min/1.73 sqM); Potassium 3.8 mmol/L (3.5-5.1); Sodium 140 mmol/L (137-145); Total Bilirubin 0.6 mg/dL (0.2-1.3); Total Protein 6.3 g/dL (6.3-8.2)
--- NOTE | 2020-06-17 22:53 | XR ---
EXAMINATION TYPE: XR chest 2V DATE OF EXAM: 06/17/2020 COMPARISON: 01/09/2020 HISTORY: Vomiting blood TECHNIQUE: 2 views FINDINGS: Heart and mediastinum are normal. Lungs are clear. Diaphragm is normal. Bony thorax appears normal. There are chest leads. IMPRESSION: Normal chest. No change.
[2020-06-17 22:58] VITALS: BP 117/74; PULSE 89
== END 2020-06-17 22:58 | disposition home or self-care (01) ==
LOC: EC 20:56
DX: R10.816 Epigastric abdominal tenderness (principal); R07.89 Other chest pain; K21.9 Gastro-esophageal reflux disease without esophagitis; E78.5 Hyperlipidemia, unspecified; F41.9 Anxiety disorder, unspecified; F31.9 Bipolar disorder, unspecified; F43.10 Post-traumatic stress disorder, unspecified; Z79.899 Other long term (current) drug therapy; Z88.6 Allergy status to analgesic agent; Z86.69 Personal history of other diseases of the nervous system and sense organs; Z90.49 Acquired absence of other specified parts of digestive tract; Z98.51 Tubal ligation status
CPT/HCPCS: 36415; 71046; 80053; 83690; 83735; 84484; 84703; 85025; 85610; 85730; 93005; 96374; 99285

== ENCOUNTER 2020-06-24 16:34 | Emergency (ER) | payer OTHER ==
[2020-06-24 16:48] VITALS: TEMP 97.9
[2020-06-24] MEDS ORDERED: SODIUM CHLORIDE 0.9% 1,000 ML IV STA (16:54)
[2020-06-24] MEDS ORDERED: MORPHINE SULFATE 2 MG/ML SYRINGE IVP STA (16:54)
[2020-06-24] MEDS ORDERED: ONDANSETRON 4 MG/2 ML VIAL IVP STA (16:54)
--- NOTE | 2020-06-24 17:01 | ED ---
Abdominal Pain HPI - General Chief Complaint: Abdominal Pain Stated Complaint: Vomiting blood, Right side pain Source: patient, RN notes reviewed Mode of arrival: wheelchair Limitations: no limitations - History of Present Illness Initial Comments: Patient is a 30-year-old female that comes emergency polyp complaining of right lower quadrant abdominal pain. She noted the pain started last night has progressively gotten worse throughout the day. She'll the pain is constant and sharp and is about 8-9 out of 10 currently. She noted that she cannot take any NSAIDs as it causes her to have GI bleeds. He stated that she tried taking at home medications and her medical marijuana to help with the pain but none relieved it. She was in no apparent distress or pain while sitting up in bed during exam and interview. She denied any chest pain shortness of breath vomiting diarrhea constipation fever fatigue chills. - Related Data Home Medications Medication Instructions Recorded Confirmed Pravastatin Sodium [Pravachol] 20 mg PO HS 01/20/18 06/17/20 LORazepam [Ativan] 1 mg PO HS 11/24/18 06/17/20 buPROPion HCL [Wellbutrin XL] 300 mg PO DAILY 12/15/19 06/17/20 traZODone HCL 50 mg PO HS 12/15/19 06/17/20 ARIPiprazole 20 mg PO HS 01/09/20 06/17/20 ARIPiprazole [Abilify] 5 mg PO DAILY 01/09/20 06/17/20 Topiramate 50 mg PO HS 01/09/20 06/17/20 acetaZOLAMIDE [Diamox] 250 mg PO BID 01/09/20 06/17/20 busPIRone HCL 15 mg PO TID PRN 01/09/20 06/17/20 Amitriptyline HCl [Elavil] 75 mg PO BID 01/24/20 06/17/20 Verapamil HCl [Verapamil ER] 180 mg PO HS 01/24/20 06/17/20 Etonogestrel [Nexplanon] 68 mg SQ ONCE 02/20/20 06/17/20 Gabapentin 600 mg PO TID 02/20/20 06/17/20 OXcarbazepine [Oxtellar Xr] 150 mg PO HS 02/27/20 06/17/20 Apixaban [Eliquis] 5 mg PO BID 03/04/20 06/17/20 hydroCHLOROthiazide 25 mg PO DAILY 03/15/20 06/17/20 Omeprazole 40 mg PO BID 06/17/20 06/17/20 Ondansetron [Zofran] 4 mg PO Q6H PRN 06/17/20 06/17/20 Allergies Allergy/AdvReac Type Severity Reaction Status Date / Time NSAIDS (Non-Steroidal AdvReac Unknown Verified 06/24/20 16:47 Anti-Inflamma Review of Systems ROS Statement: Those systems with pertinent positive or pertinent negative responses have been documented in the HPI. ROS Other: All systems not noted in ROS Statement are negative. Past Medical History Past Medical History: Diabetes Mellitus, Fibromyalgia, GERD/Reflux, GI Bleed, Hyperlipidemia Additional Past Medical History / Comment(s): gallstones, kidney stones, IBS, migraines, tachycardia, Martine- Guevara tear, blood clot History of Any Multi-Drug Resistant Organisms: None Reported Past Surgical History: Section, Cholecystectomy, Tubal Ligation Additional Past Surgical History / Comment(s): neck biopsy (lymph node ) d&c; LP shunt May 13 2019 feb 0211/2019 -revision, stent/ lithotripsy on left, cystoscopy, Past Anesthesia/Blood Transfusion Reactions: No Reported Reaction Past Psychological History: Anxiety, Bipolar, Depression, PTSD Smoking Status: Never smoker Past Alcohol Use History: Rare Past Drug Use History: Marijuana - Past Family History Mother Family Medical History: Diabetes Mellitus, Hyperlipidemia, Hypertension, Myocardial Infarction ([place]) Additional Family Medical History / Comment(s): [place] X 3 Father Family Medical History: Congestive Heart Failure (CHF), Hyperlipidemia, Hypertension, Myocardial Infarction ([place]) Additional Family Medical History / Comment(s): mi x 3 Son(s) Family Medical History: No Reported History General Exam Limitations: no limitations General appearance: alert, in no apparent distress, obese Head exam: Present: atraumatic, normocephalic, normal inspection Eye exam: Present: normal appearance, PERRL, EOMI. Absent: scleral icterus, conjunctival injection, periorbital swelling ENT exam: Present: normal exam, mucous membranes moist Neck exam: Present: normal inspection. Absent: tenderness, meningismus, lymphadenopathy Respiratory exam: Present: normal lung sounds bilaterally. Absent: respiratory distress, wheezes, rales, rhonchi, stridor Cardiovascular Exam: Present: regular rate, normal rhythm, normal heart sounds. Absent: systolic murmur, diastolic murmur, rubs, gallop, clicks GI/Abdominal exam: Present: soft, tenderness (Right lower quadrant), hypoactive bowel sounds. Absent: distended, guarding, rebound, rigid Extremities exam: Present: normal inspection, full ROM, normal capillary refill. Absent: tenderness, pedal edema, joint swelling, calf tenderness Neurological exam: Present: alert, oriented X3, CN II-XII intact Psychiatric exam: Present: normal affect, normal mood Skin exam: Present: warm, dry, intact, normal color. Absent: rash Course Vital Signs 06/24/20 16:45 Temperature 97.9 F Pulse Rate 107 H Respiratory 16 Rate Blood Pressure 110/71 O2 Sat by Pulse 98 Oximetry Medical Decision Making - Medical Decision Making 30-year-old female complaining of right lower quadrant pain. Labs, 1 L normal saline, 2 mg morphine, 4 mg Zofran, CT of the abdomen and pelvis ordered. CT negative for any acute process. Case discussed with Dr. Ordonez, decided patient to discharge home and return if symptoms worsened. - Lab Data Result diagrams: 06/24/20 17:08 06/24/20 17:08 Lab Results 06/24/20 06/24/20 06/24/20 Range/Units 17:08 17:08 17:12 WBC 7.8 (3.8-10.6) k/uL RBC 5.10 (3.80-5.40) m/uL Hgb 14.7 (11.4-16.0) gm/dL Hct 43.5 (34.0-46.0) % MCV 85.3 (80.0-100.0) fL MCH 28.8 (25.0-35.0) pg MCHC 33.7 (31.0-37.0) g/dL RDW 15.4 (11.5-15.5) % Plt Count 218 (150-450) k/uL MPV 6.8 Neutrophils % 69 % Lymphocytes % 23 % Monocytes % 3 % Eosinophils % 5 % Basophils % 1 % Neutrophils # 5.4 (1.3-7.7) k/uL Lymphocytes # 1.8 (1.0-4.8) k/uL Monocytes # 0.2 (0-1.0) k/uL Eosinophils # 0.4 (0-0.7) k/uL Basophils # 0.0 (0-0.2) k/uL Sodium 142 (137-145) mmol/L Potassium 4.2 (3.5-5.1) mmol/L Chloride 109 H (98-107) mmol/L Carbon Dioxide 23 (22-30) mmol/L Anion Gap 10 mmol/L BUN 12 (7-17) mg/dL Creatinine 0.77 (0.52-1.04) mg/dL Est GFR (CKD-EPI)AfAm >90 (>60 ml/min/1.73 sqM) Est GFR (CKD-EPI)NonAf >90 (>60 ml/min/1.73 sqM) Glucose 180 H (74-99) mg/dL Calcium 9.5 (8.4-10.2) mg/dL Total Bilirubin 0.5 (0.2-1.3) mg/dL AST 35 (14-36) U/L ALT 51 H (4-34) U/L Alkaline Phosphatase 129 H (38-126) U/L Total Protein 6.6 (6.3-8.2) g/dL Albumin 3.9 (3.5-5.0) g/dL Amylase 31 (30-110) U/L Lipase 64 (23-300) U/L Urine Color Yellow Urine Appearance Cloudy H (Clear) Urine pH 6.5 (5.0-8.0) Ur Specific [place] 1.020 (1.001-1.035) Urine Protein Negative (Negative) Urine Glucose (UA) Negative (Negative) Urine Ketones Negative (Negative) Urine Blood Negative (Negative) Urine Nitrite Negative (Negative) Urine Bilirubin Negative (Negative) Urine Urobilinogen 2.0 (<2.0) mg/dL Ur Leukocyte Esterase Negative (Negative) Urine RBC 1 (0-5) /hpf Urine WBC 1 (0-5) /hpf Ur Squamous Epith Cells 2 (0-4) /hpf Urine Bacteria Rare H (None) /hpf Hyaline Casts 3 H (0-2) /lpf Urine Mucus Rare H (None) /hpf - Radiology Data Radiology results: report reviewed, image reviewed Minimal free fluid in the cul-de-sac there is decrease in the size of fluid collection in the subcutaneous tissues on the left side of the abdomen compared to old exam. There is cleaning of the right sided hydronephrosis compared to computed tomography scan of 05/23/2019. Free fluid in the cul-de-sac is not compared to computed tomography scan of 03/23/2020. Disposition Clinical Impression: Abdominal pain Disposition: HOME SELF-CARE Condition: Stable Instructions (If sedation given, give patient instructions): Abdominal Pain (ED ) Additional Instructions: Please return to the Emergency Department if symptoms worsen or any other concerns. Follow-up primary care in 1-2 days. Take [id number] pain medication as needed for conservative management. Is patient prescribed a controlled substance at d/c from ED?: No Referrals: Olvin Keenan MD [Primary Care Provider] - 1-2 days Time of Disposition: 18:54
[2020-06-24 17:13] LABS: Basophils % (A) 1 %; Eosinophils # (A) 0.4 k/uL (0-0.7); Eosinophils % (A) 5 %; HCT 43.5 % (34.0-46.0); HGB 14.7 gm/dL (11.4-16.0); Lymphocytes # (A) 1.8 k/uL (1.0-4.8); Lymphocytes % (A) 23 %; MCH 28.8 pg (25.0-35.0); MCHC 33.7 g/dL (31.0-37.0); MCV 85.3 fL (80.0-100.0); Mean Platelet Volume 6.8; Monocytes # (A) 0.2 k/uL (0-1.0); Monocytes % (A) 3 %; Neutrophils # (A) 5.4 k/uL (1.3-7.7); Neutrophils % (A) 69 %; Platelet Count 218 k/uL (150-450); RDW 15.4 % (11.5-15.5); WBC 7.8 k/uL (3.8-10.6)
[2020-06-24 17:20] LABS: Appearance,Urine Cloudy (Clear); Bacteria,Urine Rare /hpf; Bilirubin,Urine Negative (Negative); Blood,Urine Negative (Negative); Color,Urine Yellow; Glucose,Urine (UA) Negative (Negative); Hyaline Casts,Urine 3 /lpf (0-2); Ketones,Urine Negative (Negative); Leukocyte Esterase,Urine Negative (Negative); Mucus,Urine Rare /hpf; Nitrite,Urine Negative (Negative); PH, Urine 6.5 (5.0-8.0); Protein,Urine Negative (Negative); RBC,Urine 1 /hpf (0-5); Squamous Epithelial Cell,Urine 2 /hpf (0-4); WBC,Urine 1 /hpf (0-5)
[2020-06-24 17:24] LABS: ALT 51 U/L (4-34); AST 35 U/L (14-36); African American GFR (CKD) >90 (>60 ml/min/1.73 sqM); Albumin 3.9 g/dL (3.5-5.0); Alkaline Phosphatase 129 U/L (38-126); Amylase 31 U/L (30-110); Anion Gap 10 mmol/L; Blood Urea Nitrogen 12 mg/dL (7-17); Calcium 9.5 mg/dL (8.4-10.2); Carbon Dioxide 23 mmol/L (22-30); Chloride 109 mmol/L (98-107); Glucose 180 mg/dL (74-99); Lipase 64 U/L (23-300); Non-African American GFR(CKD) >90 (>60 ml/min/1.73 sqM); Potassium 4.2 mmol/L (3.5-5.1); Sodium 142 mmol/L (137-145); Total Bilirubin 0.5 mg/dL (0.2-1.3); Total Protein 6.6 g/dL (6.3-8.2)
--- NOTE | 2020-06-24 18:17 | CT ---
EXAMINATION TYPE: CT abdomen pelvis w con DATE OF EXAM: 06/24/2020 COMPARISON: 04/26/2020 and 03/23/2020 HISTORY: Right lower quadrant pain, nausea, and vomiting blood. CT DLP: 2549 mGycm Automated exposure control for dose reduction was used. CONTRAST: Performed with IV Contrast, patient injected with 100 mL of Isovue 300. Lung bases are clear. There is no pleural effusion. Heart size is normal. There is no pericardial eff usion. Liver spleen stomach pancreas appear normal. Bile ducts are nondilated. There are clips from cholecys tectomy. There is no adrenal mass. Kidneys show satisfactory contrast opacification. There is no hydronephrosi s. Delayed images show normal renal excretion. There is no retroperitoneal adenopathy. There is spina l drainage catheter noted. There is 5 cm fluid collection around the catheter over the left anterior mid abdomen in the subcutaneous tissues. There is no mesenteric edema. There is no ascites or free air. There is no sign of a bowel obstructio n. There is no evidence of a pelvic mass. Bladder distends smoothly. Uterus is anteverted. There is n o pelvic mass. Appendix is not definitely seen. No sign of thickened appendix. There is small amount of fluid in the cul-de-sac. The lumbar vertebra have normal spacing and alignment. There is no compression fracture. Bony pelvis is intact. Hip joints are intact. IMPRESSION: Minimal free fluid in the cul-de-sac. There is decrease in the size of the fluid collection in the brennan bcutaneous tissues on the left side of the abdomen compared to old exam. There is clearing of the rig ht side hydronephrosis compared to CT scan of 03/23/2020. Free fluid in the cul-de-sac is new compare d to CT scan of 03/23/2020.
[2020-06-24 19:02] VITALS: RESP 18
[2020-06-24 19:04] VITALS: BP 115/66; PULSE 84
== END 2020-06-24 19:10 | disposition home or self-care (01) ==
LOC: EC 16:34
DX: R10.31 Right lower quadrant pain (principal); E11.9 Type 2 diabetes mellitus without complications; M79.7 Fibromyalgia; K21.9 Gastro-esophageal reflux disease without esophagitis; E78.5 Hyperlipidemia, unspecified; K58.9 Irritable bowel syndrome, unspecified; G43.909 Migraine, unspecified, not intractable, without status migrainosus; F41.9 Anxiety disorder, unspecified; F31.9 Bipolar disorder, unspecified; F43.10 Post-traumatic stress disorder, unspecified; Z79.899 Other long term (current) drug therapy; Z79.01 Long term (current) use of anticoagulants; Z79.84 Long term (current) use of oral hypoglycemic drugs; Z87.19 Personal history of other diseases of the digestive system; Z87.442 Personal history of urinary calculi; Z90.49 Acquired absence of other specified parts of digestive tract; Z88.6 Allergy status to analgesic agent; Z98.890 Other specified postprocedural states
CPT/HCPCS: 36415; 80053; 82150; 83690; 85025; 81001; 74177; 96374; 96375; 96361; 99284; J2405; J2270; Q9967

== ENCOUNTER 2020-07-01 19:12 | Emergency (ER) | payer OTHER ==
[2020-07-01] MEDS ORDERED: SODIUM CHLORIDE 0.9% 1,000 ML IV STA (19:29)
[2020-07-01] MEDS ORDERED: diphenhydrAMINE 50 MG/ML 1 ML VIAL IVP STA (19:29)
[2020-07-01] MEDS ORDERED: MORPHINE SULFATE 4 MG/ML SYRINGE IV STA (19:29)
[2020-07-01] MEDS ORDERED: ONDANSETRON 4 MG/2 ML VIAL IVP STA (19:29)
[2020-07-01] MEDS ORDERED: PANTOPRAZOLE 40 MG/10 ML VIAL IVP STA (19:33)
--- NOTE | 2020-07-01 19:44 | ED ---
Nausea/Vomiting/Diarrhea HPI - General Chief complaint: Nausea/Vomiting/Diarrhea Stated complaint: vomiting blood, abd pain Time Seen by Provider: 07/01/20 19:20 Source: patient, RN notes reviewed Mode of arrival: ambulatory Limitations: no limitations - History of Present Illness Initial comments: Patient is a 30-year-old female presents to emergency department complaining of nausea vomiting with minimal blood. Patient does have a complicated medical history and she is supposed to follow-up with a specialist at [facility] but has not yet. She notes that she is on a eliquis. She noted that the nausea started last night while she was sitting up in bed when she ended up vomiting. She cannot recall the amount of times that she did vomit but said it was at least 6. She is currently nauseous sitting up in bed during the examination interview stating that she was also in pain is about a 7-8 out of 10. She notes that she is ALLERGIC to any NSAID as he gives or GI bleeds. She denied any chest pain shortness of breath headache diarrhea constipation fever fatigue chills hematochezia melena. - Related Data Home Medications Medication Instructions Recorded Confirmed Pravastatin Sodium [Pravachol] 20 mg PO HS 01/20/18 06/17/20 LORazepam [Ativan] 1 mg PO HS 11/24/18 06/17/20 buPROPion HCL [Wellbutrin XL] 300 mg PO DAILY 12/15/19 06/17/20 traZODone HCL 50 mg PO HS 12/15/19 06/17/20 ARIPiprazole 20 mg PO HS 01/09/20 06/17/20 ARIPiprazole [Abilify] 5 mg PO DAILY 01/09/20 06/17/20 Topiramate 50 mg PO HS 01/09/20 06/17/20 acetaZOLAMIDE [Diamox] 250 mg PO BID 01/09/20 06/17/20 busPIRone HCL 15 mg PO TID PRN 01/09/20 06/17/20 Amitriptyline HCl [Elavil] 75 mg PO BID 01/24/20 06/17/20 Verapamil HCl [Verapamil ER] 180 mg PO HS 01/24/20 06/17/20 Etonogestrel [Nexplanon] 68 mg SQ ONCE 02/20/20 06/17/20 Gabapentin 600 mg PO TID 02/20/20 06/17/20 OXcarbazepine [Oxtellar Xr] 150 mg PO HS 02/27/20 06/17/20 Apixaban [Eliquis] 5 mg PO BID 03/04/20 06/17/20 hydroCHLOROthiazide 25 mg PO DAILY 03/15/20 06/17/20 Omeprazole 40 mg PO BID 06/17/20 06/17/20 Ondansetron [Zofran] 4 mg PO Q6H PRN 06/17/20 06/17/20 Allergies Allergy/AdvReac Type Severity Reaction Status Date / Time NSAIDS (Non-Steroidal AdvReac Unknown Verified 07/01/20 19:16 Anti-Inflamma Review of Systems ROS Statement: Those systems with pertinent positive or pertinent negative responses have been documented in the HPI. ROS Other: All systems not noted in ROS Statement are negative. Past Medical History Past Medical History: Diabetes Mellitus, Fibromyalgia, GERD/Reflux, GI Bleed, Hyperlipidemia Additional Past Medical History / Comment(s): gallstones, kidney stones, IBS, migraines, tachycardia, Martine- Guevara tear, blood clot History of Any Multi-Drug Resistant Organisms: None Reported Past Surgical History: Section, Cholecystectomy, Tubal Ligation Additional Past Surgical History / Comment(s): neck biopsy (lymph node ) d&c; LP shunt May 13 2019 feb 0211/2019 -revision, stent/ lithotripsy on left, cystoscopy, Past Anesthesia/Blood Transfusion Reactions: No Reported Reaction Past Psychological History: Anxiety, Bipolar, Depression, PTSD Smoking Status: Never smoker, Vaper Past Alcohol Use History: Rare Past Drug Use History: Marijuana - Past Family History Mother Family Medical History: Diabetes Mellitus, Hyperlipidemia, Hypertension, Myocardial Infarction ([place]) Additional Family Medical History / Comment(s): [place] X 3 Father Family Medical History: Congestive Heart Failure (CHF), Hyperlipidemia, Hypertension, Myocardial Infarction ([place]) Additional Family Medical History / Comment(s): mi x 3 Son(s) Family Medical History: No Reported History General Exam Limitations: no limitations General appearance: alert, in distress, obese Head exam: Present: atraumatic, normocephalic, normal inspection Eye exam: Present: normal appearance, PERRL, EOMI. Absent: scleral icterus, conjunctival injection, periorbital swelling ENT exam: Present: normal exam, normal oropharynx (Mildly erythematous), mucous membranes moist Neck exam: Present: normal inspection. Absent: tenderness, meningismus, lymphadenopathy Respiratory exam: Present: normal lung sounds bilaterally. Absent: respiratory distress, wheezes, rales, rhonchi, stridor Cardiovascular Exam: Present: regular rate, normal rhythm, normal heart sounds. Absent: systolic murmur, diastolic murmur, rubs, gallop, clicks GI/Abdominal exam: Present: soft, normal bowel sounds. Absent: distended, tenderness, guarding, rebound, rigid Extremities exam: Present: normal inspection, full ROM, normal capillary refill. Absent: tenderness, pedal edema, joint swelling, calf tenderness Neurological exam: Present: alert, oriented X3, CN II-XII intact Psychiatric exam: Present: normal affect, normal mood Skin exam: Present: warm, dry, intact, normal color. Absent: rash Course Vital Signs 07/01/20 19:13 Temperature 98.3 F Pulse Rate 111 H Respiratory 18 Rate Blood Pressure 106/66 O2 Sat by Pulse 95 Oximetry Medical Decision Making - Medical Decision Making 30-year-old female complaining of nausea vomiting with minimal blood in her vomit. Labs, 1 L normal saline, 4 mg Zofran, 4 mg of morphine, 50 mg of Benadryl, 40 mg of pantoprazole, chest x-ray ordered. Patient's labs are unremarkable. Case discussed with Dr. strange, was decided the patient to discharge home. - Lab Data Result diagrams: 07/01/20 20:05 07/01/20 20:05 Lab Results 07/01/20 07/01/20 07/01/20 Range/Units 20:05 20:05 20:05 WBC 9.8 (3.8-10.6) k/uL RBC 4.56 (3.80-5.40) m/uL Hgb 13.1 (11.4-16.0) gm/dL Hct 38.7 (34.0-46.0) % MCV 84.9 (80.0-100.0) fL MCH 28.7 (25.0-35.0) pg MCHC 33.9 (31.0-37.0) g/dL RDW 15.7 H (11.5-15.5) % Plt Count 240 (150-450) k/uL MPV 7.6 Neutrophils % 68 % Lymphocytes % 20 % Monocytes % 4 % Eosinophils % 6 % Basophils % 1 % Neutrophils # 6.7 (1.3-7.7) k/uL Lymphocytes # 2.0 (1.0-4.8) k/uL Monocytes # 0.4 (0-1.0) k/uL Eosinophils # 0.6 (0-0.7) k/uL Basophils # 0.1 (0-0.2) k/uL PT (9.0-12.0) sec INR (<1.2) APTT (22.0-30.0) sec Sodium 140 (137-145) mmol/L Potassium 4.2 (3.5-5.1) mmol/L Chloride 107 (98-107) mmol/L Carbon Dioxide 25 (22-30) mmol/L Anion Gap 8 mmol/L BUN 9 (7-17) mg/dL Creatinine 0.69 (0.52-1.04) mg/dL Est GFR (CKD-EPI)AfAm >90 (>60 ml/min/1.73 sqM) Est GFR (CKD-EPI)NonAf >90 (>60 ml/min/1.73 sqM) Glucose 150 H (74-99) mg/dL Calcium 9.1 (8.4-10.2) mg/dL Total Bilirubin 0.6 (0.2-1.3) mg/dL AST 58 H (14-36) U/L ALT 63 H (4-34) U/L Alkaline Phosphatase 129 H (38-126) U/L Total Protein 6.2 L (6.3-8.2) g/dL Albumin 3.6 (3.5-5.0) g/dL Amylase <30 L (30-110) U/L Lipase 47 (23-300) U/L Urine Color Urine Appearance (Clear) Urine pH (5.0-8.0) Ur Specific [place] (1.001-1.035) Urine Protein (Negative) Urine Glucose (UA) (Negative) Urine Ketones (Negative) Urine Blood (Negative) Urine Nitrite (Negative) Urine Bilirubin (Negative) Urine Urobilinogen (<2.0) mg/dL Ur Leukocyte Esterase (Negative) Urine RBC (0-5) /hpf Urine WBC (0-5) /hpf Ur Squamous Epith Cells (0-4) /hpf Amorphous Sediment (None) /hpf Urine Bacteria (None) /hpf Urine Mucus (None) /hpf Urine HCG, Qual (Not Detectd) Blood Type B Positive Blood Type Recheck B Pos Bld Type Recheck Status No Antibody Screen NEGATIVE Spec Expiration Date 07/04/2020230407/01/20 07/01/20 07/01/20 Range/Units 20:05 20:30 20:30 WBC (3.8-10.6) k/uL RBC (3.80-5.40) m/uL Hgb (11.4-16.0) gm/dL Hct (34.0-46.0) % MCV (80.0-100.0) fL MCH (25.0-35.0) pg MCHC (31.0-37.0) g/dL RDW (11.5-15.5) % Plt Count (150-450) k/uL MPV Neutrophils % % Lymphocytes % % Monocytes % % Eosinophils % % Basophils % % Neutrophils # (1.3-7.7) k/uL Lymphocytes # (1.0-4.8) k/uL Monocytes # (0-1.0) k/uL Eosinophils # (0-0.7) k/uL Basophils # (0-0.2) k/uL PT 9.4 (9.0-12.0) sec INR 0.9 (<1.2) APTT 18.2 L (22.0-30.0) sec Sodium (137-145) mmol/L Potassium (3.5-5.1) mmol/L Chloride (98-107) mmol/L Carbon Dioxide (22-30) mmol/L Anion Gap mmol/L BUN (7-17) mg/dL Creatinine (0.52-1.04) mg/dL Est GFR (CKD-EPI)AfAm (>60 ml/min/1.73 sqM) Est GFR (CKD-EPI)NonAf (>60 ml/min/1.73 sqM) Glucose (74-99) mg/dL Calcium (8.4-10.2) mg/dL Total Bilirubin (0.2-1.3) mg/dL AST (14-36) U/L ALT (4-34) U/L Alkaline Phosphatase (38-126) U/L Total Protein (6.3-8.2) g/dL Albumin (3.5-5.0) g/dL Amylase (30-110) U/L Lipase (23-300) U/L Urine Color Yellow Urine Appearance Cloudy H (Clear) Urine pH 7.0 (5.0-8.0) Ur Specific [place] 1.020 (1.001-1.035) Urine Protein Trace H (Negative) Urine Glucose (UA) Negative (Negative) Urine Ketones Negative (Negative) Urine Blood Moderate H (Negative) Urine Nitrite Negative (Negative) Urine Bilirubin Negative (Negative) Urine Urobilinogen 2.0 (<2.0) mg/dL Ur Leukocyte Esterase Negative (Negative) Urine RBC 56 H (0-5) /hpf Urine WBC 1 (0-5) /hpf Ur Squamous Epith Cells 3 (0-4) /hpf Amorphous Sediment Occasional H (None) /hpf Urine Bacteria Rare H (None) /hpf Urine Mucus Few H (None) /hpf Urine HCG, Qual Not Detected (Not Detectd) Blood Type Blood Type Recheck Bld Type Recheck Status Antibody Screen Spec Expiration Date - Radiology Data Radiology results: report reviewed, image reviewed Chest x-ray: Normal chest. No change. Disposition Clinical Impression: Hematemesis, Upper GI bleed, Abdominal pain, Hematemesis with nausea Disposition: HOME SELF-CARE Condition: Stable Instructions (If sedation given, give patient instructions): Abdominal Pain (ED), Acute Nausea and Vomiting (ED) Additional Instructions: Please return to the Emergency Department if symptoms worsen or any other concerns. Follow-up with primary care in 2-4 days. Continue to take at home medications as prescribed. Follow-up with GI specialist as soon as possible. Is patient prescribed a controlled substance at d/c from ED?: No Referrals: Olvin Keenan MD [Primary Care Provider] - 1-2 days Time of Disposition: 21:41
[2020-07-01 20:33] LABS: Basophils # (A) 0.1 k/uL (0-0.2); Basophils % (A) 1 %; Eosinophils # (A) 0.6 k/uL (0-0.7); Eosinophils % (A) 6 %; HCT 38.7 % (34.0-46.0); HGB 13.1 gm/dL (11.4-16.0); Lymphocytes % (A) 20 %; MCH 28.7 pg (25.0-35.0); MCHC 33.9 g/dL (31.0-37.0); MCV 84.9 fL (80.0-100.0); Mean Platelet Volume 7.6; Monocytes # (A) 0.4 k/uL (0-1.0); Monocytes % (A) 4 %; Neutrophils # (A) 6.7 k/uL (1.3-7.7); Neutrophils % (A) 68 %; Platelet Count 240 k/uL (150-450); RBC 4.56 m/uL (3.80-5.40); RDW 15.7 % (11.5-15.5); WBC 9.8 k/uL (3.8-10.6)
[2020-07-01 20:43] LABS: ALT 63 U/L (4-34); African American GFR (CKD) >90 (>60 ml/min/1.73 sqM); Albumin 3.6 g/dL (3.5-5.0); Anion Gap 8 mmol/L; Blood Urea Nitrogen 9 mg/dL (7-17); Calcium 9.1 mg/dL (8.4-10.2); Carbon Dioxide 25 mmol/L (22-30); Chloride 107 mmol/L (98-107); Glucose 150 mg/dL (74-99); Lipase 47 U/L (23-300); Non-African American GFR(CKD) >90 (>60 ml/min/1.73 sqM); Sodium 140 mmol/L (137-145); Total Bilirubin 0.6 mg/dL (0.2-1.3); Total Protein 6.2 g/dL (6.3-8.2)
--- NOTE | 2020-07-01 20:47 | XR ---
EXAMINATION TYPE: XR chest 2V DATE OF EXAM: 07/01/2020 COMPARISON: 06/17/2020 HISTORY: Vomiting TECHNIQUE: 2 views FINDINGS: Heart and mediastinum are normal. Lungs are clear. Diaphragm is normal. Bony thorax appears normal. IMPRESSION: Normal chest. No change.
[2020-07-01 21:00] LABS: Amorphous Sediment,Urine Occasional /hpf; Appearance,Urine Cloudy (Clear); Bacteria,Urine Rare /hpf; Bilirubin,Urine Negative (Negative); Blood,Urine Moderate (Negative); Color,Urine Yellow; Glucose,Urine (UA) Negative (Negative); Ketones,Urine Negative (Negative); Leukocyte Esterase,Urine Negative (Negative); Mucus,Urine Few /hpf; Nitrite,Urine Negative (Negative); Protein,Urine Trace (Negative); RBC,Urine 56 /hpf (0-5); Squamous Epithelial Cell,Urine 3 /hpf (0-4); WBC,Urine 1 /hpf (0-5)
[2020-07-01 21:22] LABS: Potassium 4.2 mmol/L (3.5-5.1)
[2020-07-01 21:23] LABS: AST 58 U/L (14-36); Alkaline Phosphatase 129 U/L (38-126); Amylase <30 U/L (30-110)
[2020-07-01 21:31] LABS: INR 0.9 (<1.2); Prothrombin Time 9.4 sec (9.0-12.0)
[2020-07-01 21:34] LABS: Partial Thromboplastin Time 18.2 sec (22.0-30.0)
[2020-07-01 22:21] VITALS: BP 114/63; PULSE 87; RESP 17; TEMP 98.1
== END 2020-07-01 22:21 | disposition home or self-care (01) ==
LOC: EC 19:12
DX: K92.0 Hematemesis (principal); K92.2 Gastrointestinal hemorrhage, unspecified; K21.9 Gastro-esophageal reflux disease without esophagitis; E78.5 Hyperlipidemia, unspecified; E11.9 Type 2 diabetes mellitus without complications; F12.90 Cannabis use, unspecified, uncomplicated; F41.9 Anxiety disorder, unspecified; F32.9 Major depressive disorder, single episode, unspecified
CPT/HCPCS: 36415; 86900; 86901; 80053; 82150; 83690; 85025; 85610; 85730; 86850; 81001; 81025; 71046; 99284; 96374; 96375; 96361; J2270; J1200; J2405; C9113

== ENCOUNTER 2020-07-03 19:07 | Emergency (ER) | payer OTHER ==
[2020-07-03 19:23] VITALS: TEMP 98.4
[2020-07-03] MEDS ORDERED: ONDANSETRON 4 MG/2 ML VIAL IVP STA (20:25)
[2020-07-03] MEDS ORDERED: SODIUM CHLORIDE 0.9% 1,000 ML IV STA (20:25)
[2020-07-03] MEDS ORDERED: MORPHINE SULFATE 4 MG/ML SYRINGE IV STA (20:25)
--- NOTE | 2020-07-03 20:43 | ED ---
General Adult HPI - General Chief complaint: Recheck/Abnormal Lab/Rx Stated complaint: headache/abd pain/nausea Source: patient, RN notes reviewed, old records reviewed Mode of arrival: wheelchair Limitations: no limitations - History of Present Illness Initial comments: 30-year-old female presenting for reevaluation of abdominal pain nausea vomiting as well as headache. Patient has multiple medical problems. She states she was seen for nausea vomiting and abdominal pain several days earlier in her symptoms have persisted. She states she is moving her bowels. No dysuria or hematuria. Pain is predominantly left-sided. Secondarily she has developed a migraine which is typical of her migraine headaches although somewhat more severe. She does have history pseudotumor cerebri. She states it is been some time since she has followed up regarding this diagnosis. - Related Data Home Medications Medication Instructions Recorded Confirmed Pravastatin Sodium [Pravachol] 20 mg PO HS 01/20/18 06/17/20 LORazepam [Ativan] 1 mg PO HS 11/24/18 06/17/20 buPROPion HCL [Wellbutrin XL] 300 mg PO DAILY 12/15/19 06/17/20 traZODone HCL 50 mg PO HS 12/15/19 06/17/20 ARIPiprazole 20 mg PO HS 01/09/20 06/17/20 ARIPiprazole [Abilify] 5 mg PO DAILY 01/09/20 06/17/20 Topiramate 50 mg PO HS 01/09/20 06/17/20 acetaZOLAMIDE [Diamox] 250 mg PO BID 01/09/20 06/17/20 busPIRone HCL 15 mg PO TID PRN 01/09/20 06/17/20 Amitriptyline HCl [Elavil] 75 mg PO BID 01/24/20 06/17/20 Verapamil HCl [Verapamil ER] 180 mg PO HS 01/24/20 06/17/20 Etonogestrel [Nexplanon] 68 mg SQ ONCE 02/20/20 06/17/20 Gabapentin 600 mg PO TID 02/20/20 06/17/20 OXcarbazepine [Oxtellar Xr] 150 mg PO HS 02/27/20 06/17/20 Apixaban [Eliquis] 5 mg PO BID 03/04/20 06/17/20 hydroCHLOROthiazide 25 mg PO DAILY 03/15/20 06/17/20 Omeprazole 40 mg PO BID 06/17/20 06/17/20 Ondansetron [Zofran] 4 mg PO Q6H PRN 06/17/20 06/17/20 Allergies Allergy/AdvReac Type Severity Reaction Status Date / Time NSAIDS (Non-Steroidal AdvReac Unknown Verified 07/03/20 19:23 Anti-Inflamma Review of Systems ROS Statement: Those systems with pertinent positive or pertinent negative responses have been documented in the HPI. ROS Other: All systems not noted in ROS Statement are negative. Past Medical History Past Medical History: Diabetes Mellitus, Fibromyalgia, GERD/Reflux, GI Bleed, Hyperlipidemia Additional Past Medical History / Comment(s): gallstones, kidney stones, IBS, migraines, tachycardia, Martine- Guevara tear, blood clot History of Any Multi-Drug Resistant Organisms: None Reported Past Surgical History: Section, Cholecystectomy, Tubal Ligation Additional Past Surgical History / Comment(s): neck biopsy (lymph node ) d&c; LP shunt May 13 2019 feb 0211/2019 -revision, stent/ lithotripsy on left, cystoscopy, Past Anesthesia/Blood Transfusion Reactions: No Reported Reaction Past Psychological History: Anxiety, Bipolar, Depression, PTSD Smoking Status: Never smoker, Vaper Past Alcohol Use History: Rare Past Drug Use History: Marijuana - Past Family History Mother Family Medical History: Diabetes Mellitus, Hyperlipidemia, Hypertension, Myocardial Infarction ([place]) Additional Family Medical History / Comment(s): [place] X 3 Father Family Medical History: Congestive Heart Failure (CHF), Hyperlipidemia, Hypertension, Myocardial Infarction ([place]) Additional Family Medical History / Comment(s): mi x 3 Son(s) Family Medical History: No Reported History General Exam Limitations: no limitations General appearance: alert, in no apparent distress Head exam: Present: atraumatic, normocephalic Eye exam: Present: normal appearance, PERRL ENT exam: Present: mucous membranes dry Neck exam: Present: normal inspection. Absent: tenderness, meningismus Respiratory exam: Present: normal lung sounds bilaterally. Absent: respiratory distress, wheezes Cardiovascular Exam: Present: normal rhythm, tachycardia GI/Abdominal exam: Present: soft, distended, tenderness. Absent: guarding, rebound Extremities exam: Present: normal inspection, normal capillary refill. Absent: pedal edema Back exam: Present: normal inspection Neurological exam: Present: alert, oriented X3, CN II-XII intact. Absent: motor sensory deficit Psychiatric exam: Present: normal affect, normal mood Skin exam: Present: warm, dry, intact. Absent: cyanosis, diaphoretic Course Vital Signs 07/03/20 07/03/20 19:20 22:16 Temperature 98.4 F Pulse Rate 137 H 110 H Respiratory 18 22 Rate Blood Pressure 112/70 120/77 O2 Sat by Pulse 94 L 100 Oximetry Medical Decision Making - Medical Decision Making 30-year-old female with chronic abdominal pain nausea vomiting, history of pseudotumor cerebri presenting with chief complaint of headache, abdominal pain nausea vomiting. Patient is well-appearing, she does seem dehydrated and is tachycardic on arrival with stable blood pressure. She is afebrile. She has mild abdominal tenderness. No focal neurological findings. Workup is initiated, given the severity of the headache and did perform a CT of the brain which is negative for intracranial hemorrhage or mass effect. CT of the abdomen shows her persistent drainage tube and no other acute findings. She has a mild leukocytosis, stable hemoglobin, normal electrolytes. She's given IV hydration, symptomatic control. On reevaluation she is feeling somewhat better. She will follow with her primary care physician regarding these chronic issues . Please return to emergency department with worsening or changing symptoms. - Lab Data Result diagrams: 07/03/20 20:49 07/03/20 20:49 Lab Results 07/03/20 07/03/20 07/03/20 Range/Units 20:49 20:49 20:49 WBC 14.3 H (3.8-10.6) k/uL RBC 4.89 (3.80-5.40) m/uL Hgb 14.0 (11.4-16.0) gm/dL Hct 41.8 (34.0-46.0) % MCV 85.4 (80.0-100.0) fL MCH 28.6 (25.0-35.0) pg MCHC 33.5 (31.0-37.0) g/dL RDW 15.6 H (11.5-15.5) % Plt Count 264 (150-450) k/uL MPV 6.9 Neutrophils % 75 % Lymphocytes % 16 % Monocytes % 3 % Eosinophils % 5 % Basophils % 0 % Neutrophils # 10.8 H (1.3-7.7) k/uL Lymphocytes # 2.3 (1.0-4.8) k/uL Monocytes # 0.4 (0-1.0) k/uL Eosinophils # 0.7 (0-0.7) k/uL Basophils # 0.1 (0-0.2) k/uL PT 9.7 (9.0-12.0) sec INR 0.9 (<1.2) APTT 22.3 (22.0-30.0) sec Sodium (137-145) mmol/L Potassium (3.5-5.1) mmol/L Chloride (98-107) mmol/L Carbon Dioxide (22-30) mmol/L Anion Gap mmol/L BUN (7-17) mg/dL Creatinine (0.52-1.04) mg/dL Est GFR (CKD-EPI)AfAm (>60 ml/min/1.73 sqM) Est GFR (CKD-EPI)NonAf (>60 ml/min/1.73 sqM) Glucose (74-99) mg/dL Plasma Lactic Acid [place] (0.7-2.0) mmol/L Calcium (8.4-10.2) mg/dL Total Bilirubin (0.2-1.3) mg/dL AST (14-36) U/L ALT (4-34) U/L Alkaline Phosphatase (38-126) U/L Total Protein (6.3-8.2) g/dL Albumin (3.5-5.0) g/dL Amylase (30-110) U/L Lipase (23-300) U/L Urine Color Yellow Urine Appearance Clear (Clear) Urine pH 8.0 (5.0-8.0) Ur Specific [place] 1.016 (1.001-1.035) Urine Protein Negative (Negative) Urine Glucose (UA) Negative (Negative) Urine Ketones Negative (Negative) Urine Blood Negative (Negative) Urine Nitrite Negative (Negative) Urine Bilirubin Negative (Negative) Urine Urobilinogen <2.0 (<2.0) mg/dL Ur Leukocyte Esterase Negative (Negative) 07/03/20 07/03/20 Range/Units 20:49 20:49 WBC (3.8-10.6) k/uL RBC (3.80-5.40) m/uL Hgb (11.4-16.0) gm/dL Hct (34.0-46.0) % MCV (80.0-100.0) fL MCH (25.0-35.0) pg MCHC (31.0-37.0) g/dL RDW (11.5-15.5) % Plt Count (150-450) k/uL MPV Neutrophils % % Lymphocytes % % Monocytes % % Eosinophils % % Basophils % % Neutrophils # (1.3-7.7) k/uL Lymphocytes # (1.0-4.8) k/uL Monocytes # (0-1.0) k/uL Eosinophils # (0-0.7) k/uL Basophils # (0-0.2) k/uL PT (9.0-12.0) sec INR (<1.2) APTT (22.0-30.0) sec Sodium 140 (137-145) mmol/L Potassium 3.6 (3.5-5.1) mmol/L Chloride 105 (98-107) mmol/L Carbon Dioxide 24 (22-30) mmol/L Anion Gap 11 mmol/L BUN 10 (7-17) mg/dL Creatinine 0.81 (0.52-1.04) mg/dL Est GFR (CKD-EPI)AfAm >90 (>60 ml/min/1.73 sqM) Est GFR (CKD-EPI)NonAf >90 (>60 ml/min/1.73 sqM) Glucose 122 H (74-99) mg/dL Plasma Lactic Acid [place] 1.7 (0.7-2.0) mmol/L Calcium 9.2 (8.4-10.2) mg/dL Total Bilirubin 0.4 (0.2-1.3) mg/dL AST 31 (14-36) U/L ALT 55 H (4-34) U/L Alkaline Phosphatase 125 (38-126) U/L Total Protein 6.8 (6.3-8.2) g/dL Albumin 4.1 (3.5-5.0) g/dL Amylase 33 (30-110) U/L Lipase 43 (23-300) U/L Urine Color Urine Appearance (Clear) Urine pH (5.0-8.0) Ur Specific [place] (1.001-1.035) Urine Protein (Negative) Urine Glucose (UA) (Negative) Urine Ketones (Negative) Urine Blood (Negative) Urine Nitrite (Negative) Urine Bilirubin (Negative) Urine Urobilinogen (<2.0) mg/dL Ur Leukocyte Esterase (Negative) Disposition Clinical Impression: Gastritis, Abdominal pain Disposition: HOME SELF-CARE Instructions (If sedation given, give patient instructions): Abdominal Pain (ED) Additional Instructions: Please follow up with your neurosurgeon regarding your pseudotumor and lumbar shunt. Is patient prescribed a controlled substance at d/c from ED?: No Referrals: Olvin Keenan MD [Primary Care Provider] - 1-2 days Time of Disposition: 22:49
[2020-07-03 21:12] LABS: Appearance,Urine Clear (Clear); Bilirubin,Urine Negative (Negative); Blood,Urine Negative (Negative); Color,Urine Yellow; Glucose,Urine (UA) Negative (Negative); Ketones,Urine Negative (Negative); Leukocyte Esterase,Urine Negative (Negative); Nitrite,Urine Negative (Negative); Protein,Urine Negative (Negative); Specific Gravity,Urine 1.016 (1.001-1.035); Urobilinogen,Urine <2.0 mg/dL (<2.0)
[2020-07-03 21:14] LABS: Basophils # (A) 0.1 k/uL (0-0.2); Basophils % (A) 0 %; Eosinophils # (A) 0.7 k/uL (0-0.7); Eosinophils % (A) 5 %; HCT 41.8 % (34.0-46.0); Lymphocytes # (A) 2.3 k/uL (1.0-4.8); Lymphocytes % (A) 16 %; MCH 28.6 pg (25.0-35.0); MCHC 33.5 g/dL (31.0-37.0); MCV 85.4 fL (80.0-100.0); Mean Platelet Volume 6.9; Monocytes # (A) 0.4 k/uL (0-1.0); Monocytes % (A) 3 %; Neutrophils # (A) 10.8 k/uL (1.3-7.7); Neutrophils % (A) 75 %; Platelet Count 264 k/uL (150-450); RBC 4.89 m/uL (3.80-5.40); RDW 15.6 % (11.5-15.5); WBC 14.3 k/uL (3.8-10.6)
[2020-07-03 21:19] LABS: INR 0.9 (<1.2); Partial Thromboplastin Time 22.3 sec (22.0-30.0); Prothrombin Time 9.7 sec (9.0-12.0)
[2020-07-03 21:21] LABS: ALT 55 U/L (4-34); AST 31 U/L (14-36); African American GFR (CKD) >90 (>60 ml/min/1.73 sqM); Albumin 4.1 g/dL (3.5-5.0); Alkaline Phosphatase 125 U/L (38-126); Amylase 33 U/L (30-110); Anion Gap 11 mmol/L; Blood Urea Nitrogen 10 mg/dL (7-17); Calcium 9.2 mg/dL (8.4-10.2); Carbon Dioxide 24 mmol/L (22-30); Chloride 105 mmol/L (98-107); Glucose 122 mg/dL (74-99); Lipase 43 U/L (23-300); Non-African American GFR(CKD) >90 (>60 ml/min/1.73 sqM); Potassium 3.6 mmol/L (3.5-5.1); Sodium 140 mmol/L (137-145); Total Bilirubin 0.4 mg/dL (0.2-1.3); Total Protein 6.8 g/dL (6.3-8.2)
--- NOTE | 2020-07-03 21:49 | CT ---
EXAMINATION TYPE: CT brain wo con DATE OF EXAM: 07/03/2020 COMPARISON: None. HISTORY: headache and dizziness CT DLP: 1221.4 mGycm. Automated Exposure Control for Dose Reduction was Utilized. TECHNIQUE: CT scan of the head is performed without contrast. FINDINGS: There is no acute intracranial hemorrhage, mass effect, or midline shift identified. The ventricles and sulci are within normal limits in size. The globes are intact and the visualized sin uses are clear. IMPRESSION: No acute intracranial hemorrhage, mass effect, or midline shift is seen.
--- NOTE | 2020-07-03 21:58 | CT ---
EXAMINATION TYPE: CT abdomen pelvis w con DATE OF EXAM: 07/03/2020 COMPARISON: Correlation made with CT scan of abdomen and pelvis from 06/24/2020 HISTORY: abdominal pain, nausea CT DLP: 2485.8 mGycm Automated exposure control for dose reduction was used. TECHNIQUE: Helical acquisition of images was performed from the lung bases through the pelvis. CONTRAST: Performed without Oral Contrast and with IV Contrast, patient injected with 100 mL of Isovue 300. Findings: Lung bases are clear. There is no pleural effusion. Heart size is normal. There is no peric ardial effusion. Liver spleen stomach pancreas appear normal. Bile ducts are nondilated. There are clips from cholecys tectomy. There is no adrenal mass. Kidneys show satisfactory contrast opacification. There is no hydronephrosi s. There is spinal drainage catheter noted. There is 5 cm fluid collection around the catheter over the left anterior mid abdomen in the subcutaneous tissues. There is no mesenteric edema. There is no ascites or free air. There is no sign of a bowel obstructio n. There is no evidence of a pelvic mass. Bladder distends smoothly. Uterus is anteverted. There is n o pelvic mass. Appendix is not definitely seen. No sign of thickened appendix. The lumbar vertebra have normal spacing and alignment. There is no compression fracture. Bony pelvis is intact. Hip joints are intact. IMPRESSION: No significant change compared to prior examination. Left intra-abdominal wall fluid collection is un changed. Drainage catheters in the pelvis remain. There is mild dilatation of the of the distal small bowel loops in the right lower quadrant and represents a nonspecific finding. There is no bowel obst ruction.
[2020-07-03] MEDS ORDERED: HYDROmorphone 0.5 MG/0.5 ML SYRINGE IVP STA (22:13)
[2020-07-03] MEDS ORDERED: PANTOPRAZOLE 40 MG/10 ML VIAL IVP STA (22:13)
[2020-07-03] MEDS ORDERED: SODIUM CHLORIDE 0.9% 500 ML 500 ML IV ONE (22:19)
[2020-07-03] MEDS ORDERED: diphenhydrAMINE 50 MG/ML 1 ML VIAL IVP STA (22:41)
[2020-07-03] MEDS ORDERED: METOCLOPRAMIDE 5 MG/ML 2 ML VIAL IVP STA (22:41)
[2020-07-03] MEDS ORDERED: HYDROmorphone 1 MG/ML 1 ML SYRINGE IVP STA (23:52)
[2020-07-04 00:11] LABS: Glucose,Whole Blood 72 mg/dL (75-99)
[2020-07-04 00:13] VITALS: BP 119/74; PULSE 98; RESP 20
== END 2020-07-04 00:05 | disposition home or self-care (01) ==
LOC: EC 19:07
DX: K29.70 Gastritis, unspecified, without bleeding (principal); K21.9 Gastro-esophageal reflux disease without esophagitis; G43.909 Migraine, unspecified, not intractable, without status migrainosus; K58.9 Irritable bowel syndrome, unspecified; M79.7 Fibromyalgia; E11.9 Type 2 diabetes mellitus without complications; E78.5 Hyperlipidemia, unspecified; F31.9 Bipolar disorder, unspecified; F41.9 Anxiety disorder, unspecified; Z79.01 Long term (current) use of anticoagulants; Z87.442 Personal history of urinary calculi; Z90.49 Acquired absence of other specified parts of digestive tract; Z98.51 Tubal ligation status
CPT/HCPCS: 36415; 80053; 82150; 83605; 83690; 85025; 85610; 85730; 81003; 70450; 74177; 99284; 96365; 96375; J2270; J1200; J2765; J2405; J1170 ×2; C9113; Q9967

== ENCOUNTER 2020-07-04 05:27 | Observation (INO) | payer OTHER ==
--- NOTE | 2020-07-04 05:44 | ED ---
Recheck HPI - General Chief Complaint: Headache Stated Complaint: revisit-headache Time Seen by Provider: 07/04/20 05:36 Source: patient Mode of arrival: ambulatory Limitations: no limitations - Related Data Home Medications Medication Instructions Recorded Confirmed Pravastatin Sodium [Pravachol] 20 mg PO HS 01/20/18 06/17/20 LORazepam [Ativan] 1 mg PO HS 11/24/18 06/17/20 buPROPion HCL [Wellbutrin XL] 300 mg PO DAILY 12/15/19 06/17/20 traZODone HCL 50 mg PO HS 12/15/19 06/17/20 ARIPiprazole 20 mg PO HS 01/09/20 06/17/20 ARIPiprazole [Abilify] 5 mg PO DAILY 01/09/20 06/17/20 Topiramate 50 mg PO HS 01/09/20 06/17/20 acetaZOLAMIDE [Diamox] 250 mg PO BID 01/09/20 06/17/20 busPIRone HCL 15 mg PO TID PRN 01/09/20 06/17/20 Amitriptyline HCl [Elavil] 75 mg PO BID 01/24/20 06/17/20 Verapamil HCl [Verapamil ER] 180 mg PO HS 01/24/20 06/17/20 Etonogestrel [Nexplanon] 68 mg SQ ONCE 02/20/20 06/17/20 Gabapentin 600 mg PO TID 02/20/20 06/17/20 OXcarbazepine [Oxtellar Xr] 150 mg PO HS 02/27/20 06/17/20 Apixaban [Eliquis] 5 mg PO BID 03/04/20 06/17/20 hydroCHLOROthiazide 25 mg PO DAILY 03/15/20 06/17/20 Omeprazole 40 mg PO BID 06/17/20 06/17/20 Ondansetron [Zofran] 4 mg PO Q6H PRN 06/17/20 06/17/20 Allergies Allergy/AdvReac Type Severity Reaction Status Date / Time NSAIDS (Non-Steroidal AdvReac Unknown Verified 07/04/20 05:37 Anti-Inflamma Review of Systems ROS Statement: Those systems with pertinent positive or pertinent negative responses have been documented in the HPI. ROS Other: All systems not noted in ROS Statement are negative. Past Medical History Past Medical History: Diabetes Mellitus, Fibromyalgia, GERD/Reflux, GI Bleed, Hyperlipidemia Additional Past Medical History / Comment(s): gallstones, kidney stones, IBS, migraines, tachycardia, Martine- Guevara tear, blood clot History of Any Multi-Drug Resistant Organisms: None Reported Past Surgical History: Section, Cholecystectomy, Tubal Ligation Additional Past Surgical History / Comment(s): neck biopsy (lymph node ) d&c; LP shunt May 13 2019 feb 0211/2019 -revision, stent/ lithotripsy on left, cystoscopy, Past Anesthesia/Blood Transfusion Reactions: No Reported Reaction Past Psychological History: Anxiety, Bipolar, Depression, PTSD Smoking Status: Never smoker, Vaper Past Alcohol Use History: Rare Past Drug Use History: Marijuana - Past Family History Mother Family Medical History: Diabetes Mellitus, Hyperlipidemia, Hypertension, Myocardial Infarction ([place]) Additional Family Medical History / Comment(s): [place] X 3 Father Family Medical History: Congestive Heart Failure (CHF), Hyperlipidemia, Hypertension, Myocardial Infarction ([place]) Additional Family Medical History / Comment(s): mi x 3 Son(s) Family Medical History: No Reported History General Exam Limitations: no limitations Course Vital Signs 07/04/20 05:35 Temperature 98.8 F Pulse Rate 105 H Respiratory 18 Rate Blood Pressure 127/71 O2 Sat by Pulse 100 Oximetry Disposition Clinical Impression: Shunt malfunction, Headache, Pseudotumor cerebri Disposition: ADMITTED IP TO THIS [facility] Condition: Good Is patient prescribed a controlled substance at d/c from ED?: No Referrals: Olvin Keenan MD [Primary Care Provider] - 1-2 days
[2020-07-04] MEDS ORDERED: diphenhydrAMINE 50 MG/ML 1 ML VIAL IVP STA (05:54)
[2020-07-04] MEDS ORDERED: PROCHLORPERAZINE INJ 10 MG/2 ML VIAL IVP STA (05:54)
[2020-07-04] MEDS ORDERED: DIAZEPAM 5 MG/ML 2 ML INJ IVP STA (05:54)
[2020-07-04] MEDS ORDERED: SODIUM CHLORIDE 0.9% 1,000 ML IV STA ×2 (05:54)
[2020-07-04] MEDS: HYDROmorphone 1 MG/ML 1 ML SYRINGE IVP STA (06:54)
[2020-07-04 07:35] LABS: ALT 46 U/L (4-34); African American GFR (CKD) >90 (>60 ml/min/1.73 sqM); Anion Gap 9 mmol/L; Blood Urea Nitrogen 9 mg/dL (7-17); Calcium 8.5 mg/dL (8.4-10.2); Carbon Dioxide 21 mmol/L (22-30); Chloride 110 mmol/L (98-107); Glucose 170 mg/dL (74-99); Non-African American GFR(CKD) >90 (>60 ml/min/1.73 sqM); Sodium 140 mmol/L (137-145); Total Bilirubin 0.7 mg/dL (0.2-1.3)
[2020-07-04 07:48] LABS: AST 40 U/L (14-36); Albumin 3.6 g/dL (3.5-5.0); Alkaline Phosphatase 126 U/L (38-126); Magnesium 1.7 mg/dL (1.6-2.3); Potassium 4.3 mmol/L (3.5-5.1); Total Protein 6.3 g/dL (6.3-8.2)
[2020-07-04 08:20] LABS: Anisocytosis Slight; Basophils # (A) 0.1 k/uL (0-0.2); Basophils % (A) 1 %; Eosinophils # (A) 0.3 k/uL (0-0.7); Eosinophils % (A) 3 %; HCT 39.6 % (34.0-46.0); HGB 13.2 gm/dL (11.4-16.0); Lymphocytes # (A) 1.8 k/uL (1.0-4.8); Lymphocytes % (A) 16 %; MCH 28.4 pg (25.0-35.0); MCHC 33.4 g/dL (31.0-37.0); MCV 84.9 fL (80.0-100.0); Monocytes # (A) 0.5 k/uL (0-1.0); Monocytes % (A) 5 %; Neutrophils # (A) 8.1 k/uL (1.3-7.7); Neutrophils % (A) 75 %; Platelet Count 185 k/uL (150-450); RBC 4.66 m/uL (3.80-5.40); RDW 16.2 % (11.5-15.5); WBC 10.9 k/uL (3.8-10.6)
[2020-07-04] MEDS: HYDROmorphone 1 MG/ML 1 ML SYRINGE IVP PRN ×3 (11:09→20:36)
[2020-07-04] MEDS ORDERED: busPIRone HCl 5 MG TAB PO PRN (11:30)
[2020-07-04] MEDS ORDERED: acetaZOLAMIDE 250 MG TAB PO SCH (11:45)
[2020-07-04] MEDS: GABAPENTIN 300 MG CAP PO SCH ×3 (12:39→21:37)
[2020-07-04] MEDS: hydroCHLOROthiazide 25 MG TAB PO SCH (12:40)
[2020-07-04] MEDS: AMITRIPTYLINE HCL 25 MG TAB PO SCH ×2 (12:41→21:33)
[2020-07-04] MEDS: ARIPiprazole 5 MG TAB PO SCH (12:42)
[2020-07-04] MEDS: buPROPion XL 300 MG TAB.ER.24H PO SCH (12:42)
[2020-07-04] MEDS: diphenhydrAMINE 50 MG/ML 1 ML VIAL IVP PRN (12:45)
[2020-07-04] MEDS: ONDANSETRON 4 MG/2 ML VIAL IVP PRN ×2 (16:30→22:52)
[2020-07-04] MEDS: PANTOPRAZOLE 40 MG TABLET PO SCH (17:44)
--- NOTE | 2020-07-04 17:51 | P.CNNES ---
History of Present Illness Consult date: 07/04/20 Requesting physician: Timoteo Osman Reason for Consult: Headache History of Present Illness: Patient is a 30-year-old female came to the hospital early this morning at 5:27 AM for headache. Patient has been diagnosed with pseudotumor cerebri, for which she had undergone lumboperitoneal shunt procedure by Dr. Willams on 05/13/2019. The shunt needed revision on 02/03/2020 because it was kinked, and she was getti ng pressure headache. Patient states that since February, she has been getting headaches. She is scheduled for another shunt revision on 07/11/2020. Patient states that she was doing relatively well, but Friday 3 days ago, she came to the hospital and was throwing up blood. Yesterday at 2 PM, she started having a migraine, which was global headache, associated with blurred vision, double vis ion, couldn't walk. She felt nauseous and started throwing up despite taking Zofran. At the time headache started, she was cleaning her kitchen, and the headache came out of nowhere. Patient usually gets migraines and she tries to sleep it off but she was dozing in and out and couldn't sleep. As the headache persisted she decided to come to the ER. Patient is getting Dilaudid. Patient states that at this time headache is 9/10. Patient follows up with Dr. Rahul Plaza, was given samples of Nurtec OD, but she ran out of it. This medication was helping. Patient previously has tried Imitrex which did not work. Patient does not remember ever trying Fioricet. Patient also has been diagnosed with DVT involving the median pain for which she is on anticoagulants since February 2020. Patient is on multiple psychoactive medications as listed below. She is on Diamox 250 mg twice a day, which is a relatively lower dose. Vital signs on arrival blood pressure 127/71, pulse rate 105, temperature 98.8. Patient had a computed tomography scan of head performed yesterday, which revealed no acute intracranial hemorrhage, mass effect or midline shift. CT abdomen and pelvis shows no significant change compared to prior examination. Left intra-abdominal wall fluid collection is unchanged. Drainage catheters in the pelvis remains. No bowel obstruction. Patient had an MRI of the brain without contrast on 1114 2 the 18, which revealed left maxillary mucosal retention cyst and mild paranasal sinus disease. Partially empty sella turcica, and slight undulation of the intracranial arteries. Findings are nonspecific but can be seen with intracranial hypertension. Ophthalmologic examination for papilledema and consideration for lumbar puncture with opening pressure to be given in the appropriate clinical setting. Solitary punctate focus of nonspecific white matter change. This can be seen in migraines, vasculitides or less likely demyelinating disease. Patient takes protocol, lorazepam, trazodone 50 mg, Wellbutrin 300 mg daily, Topamax 50 minute grams at bedtime, BuSpar 15 mg 3 times a day, Abilify 5 mg, Diamox 250 mg twice a day, Abilify 25 mg, verapamil ER 180 mg, Elavil 75 mg twice a day, gabapentin 600 mg 3 times a day, neck supple and on implant, Oxtellar XR 150 mg daily at bedtime, HCTZ, Apixaban 5 mg twice a day. Review of Systems As mentioned above in HPI. All other review of systems completely unremarkable. Denies any chest pain or abdominal pain. Patient has severe light and noise sensitivity, nausea. She is complaining of blurred vision, double vision. Past Medical History Past Medical History: Diabetes Mellitus, Fibromyalgia, GERD/Reflux, GI Bleed, Hyperlipidemia Additional Past Medical History / Comment(s): gallstones, kidney stones, IBS, migraines, tachycardia, Martine- Guevara tear, blood clot History of Any Multi-Drug Resistant Organisms: None Reported Past Surgical History: Section, Cholecystectomy, Tubal Ligation Additional Past Surgical History / Comment(s): neck biopsy (lymph node ) d&c; LP shunt May 13 2019 feb 0211/2019 -revision, stent/ lithotripsy on left, cystoscopy, Past Anesthesia/Blood Transfusion Reactions: No Reported Reaction Past Psychological History: Anxiety, Bipolar, Depression, PTSD Smoking Status: Never smoker, Vaper Past Alcohol Use History: Rare Past Drug Use History: Marijuana - Past Family History Mother Family Medical History: Diabetes Mellitus, Hyperlipidemia, Hypertension, Myocardial Infarction ([place]) Additional Family Medical History / Comment(s): [place] X 3 Father Family Medical History: Congestive Heart Failure (CHF), Hyperlipidemia, Hypertension, Myocardial Infarction ([place]) Additional Family Medical History / Comment(s): mi x 3 Son(s) Family Medical History: No Reported History Medications and Allergies Home Medications Medication Instructions Recorded Confirmed Type Pravastatin Sodium [Pravachol] 20 mg PO HS 01/20/18 07/04/20 History LORazepam [Ativan] 1 mg PO HS 11/24/18 07/04/20 History buPROPion HCL [Wellbutrin XL] 300 mg PO DAILY 12/15/19 07/04/20 History traZODone HCL 50 mg PO HS 12/15/19 07/04/20 History ARIPiprazole 20 mg PO HS 01/09/20 07/04/20 History ARIPiprazole [Abilify] 5 mg PO DAILY 01/09/20 07/04/20 History Topiramate 50 mg PO HS 01/09/20 07/04/20 History acetaZOLAMIDE [Diamox] 250 mg PO BID 01/09/20 07/04/20 History busPIRone HCL 15 mg PO TID PRN 01/09/20 07/04/20 History Amitriptyline HCl [Elavil] 75 mg PO BID 01/24/20 07/04/20 History Verapamil HCl [Verapamil ER] 180 mg PO HS 01/24/20 07/04/20 History Etonogestrel [Nexplanon] 68 mg SQ ONCE 02/20/20 07/04/20 History Gabapentin 600 mg PO TID 02/20/20 07/04/20 History OXcarbazepine [Oxtellar Xr] 150 mg PO HS 02/27/20 07/04/20 History Apixaban [Eliquis] 5 mg PO BID 03/04/20 07/04/20 History hydroCHLOROthiazide 25 mg PO DAILY 03/15/20 07/04/20 History Omeprazole 40 mg PO BID 06/17/20 07/04/20 History Allergies Allergy/AdvReac Type Severity Reaction Status Date / Time NSAIDS (Non-Steroidal AdvReac Pt. states Verified 07/04/20 07:18 Anti-Inflamma NSAIDS have given her a GI bleed in the past. Physical Examination - Vital Signs Vital Signs: Vital Signs Temp Pulse Pulse Pulse Resp BP BP 07/04/20 15:07 98.2 F 110 H 16 110/69 07/04/20 09:00 98.3 F 102 H 20 127/78 07/04/20 07:45 106 H 18 119/71 07/04/20 05:35 98.8 F 105 H 18 127/71 Pulse Ox 07/04/20 15:07 97 07/04/20 09:00 94 L 07/04/20 07:45 97 07/04/20 05:35 100 Intake and Output 07/04/20 07/04/20 07/04/20 06:59 14:59 22:59 Output Total 700 Balance -700 Output: Urine 700 Other: Voiding Method Toilet Weight 122.924 kg On examination patient is a young female, in no acute distress. Patient is alert and awake oriented to time place and person. Speech and language functions are normal. Attention, concentration and fund of knowledge is adequate. On cranial examination pupils are round and reactive to light, visual green are full, extraocular muscles are intact with no nystagmus. Face is symmetric, tongue protrudes the midline. Palatal elevation sensation normal, hearing and shoulder shrug normal. Facial sensation is normal. On muscle strength testing there is no pronator drift and the strength is normal in arms and legs reflexes are diminished and plantars are downgoing. Sensory to touch is equal with no neglect. No ataxia for [id number] testing, tone and bulk of muscles normal. Gait deferred. There is no carotid bruit or murmur, peripheral pulses are present, abdomen soft nontender. No peripheral edema. Results - Laboratory Findings CBC and BMP: 07/04/20 06:50 07/04/20 06:50 Abnormal Lab Findings: Abnormal Labs 07/04/20 07/04/20 06:50 06:50 WBC 10.9 H RDW 16.2 H Neutrophils # 8.1 H Chloride 110 H Carbon Dioxide 21 L Glucose 170 H AST 40 H ALT 46 H Assessment and Plan Assessment: * History of pseudotumor cerebri, status post lumboperitoneal shunting on 05/13/2019, that required revision on 02/03/2020. Patient states that she is scheduled for a third revision on 07/11/2020. * Migraine headache, possible related to pseudotumor cerebri. * History of DVT, on anticoagulation. * Diabetes * Hypertension Plan: * Fioricet 1-2 tablets every 6 hours when necessary for headache. * Increase Diamox to 500 mg twice a day for pseudotumor cerebri. * As Diamox and Topamax have similar renal adverse effects, suggested to stop Topamax but patient claims that she is on Topamax for mood disorder and does not want to stop it. Patient was recommended to drink a lot of water to prevent renal side effects. She is on low dose Topamax 50 mg, therefore should be fine. * Patient was recommended to speak to her neurosurgeon tomorrow morning, if the headache persists, if patient should undergo lumbar puncture to assess for opening pressure and to help with the migraine/headache.
[2020-07-04] MEDS: acetaZOLAMIDE 250 MG TAB PO SCH (20:00)
[2020-07-04] MEDS ORDERED: LORazepam 1 MG TAB PO SCH (21:00)
[2020-07-04] MEDS: TOPIRAMATE 25 MG TAB PO SCH (21:33)
[2020-07-04] MEDS: PRAVASTATIN SODIUM 20 MG TAB PO SCH (21:33)
[2020-07-04] MEDS: OXCARBAZEPINE 150 MG PO SCH (21:34)
[2020-07-04] MEDS: traZODone HCL 50 MG TAB PO SCH (21:34)
[2020-07-04] MEDS: LORazepam 0.5 MG TAB PO SCH (21:34)
[2020-07-04] MEDS: VERAPAMIL SR 180 MG TABLET.ER PO SCH (21:34)
[2020-07-04] MEDS: BUTALB/APAP/CAFF 50-325-40MG TAB PO PRN (21:35)
--- NOTE | 2020-07-05 00:08 | P.HPIM ---
History of Present Illness H&P Date: 07/04/20 Chief Complaint: Headache History of presenting complaint: This is a 30-year-old patient ; chronic stable medical conditions include diabetes, fibromyalgia, GERD, hyperlipidemia, irritable bowel syndrome, . Bipolar disorder. Right ureteral stone with stent placement. Patient has a pseudotumor cerebri. 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 IV lumboperitoneal shunt. This was done by on 05/13/2019. Subsequently patient had a revision of the same on 02/03/2020. Patient been having increasing headaches rather global. Slight photophobia. No fever no chills. Appetite is good. She went back to see Dr. Waldron recently patient and she been told that patient needs revision again that is scheduled for June 13. Review of systems: GEN.: Tired EYES: None HEENT: As above NECK: None RESPIRATORY: None CARDIOVASCULAR: None GASTROINTESTINAL: As above GENITOURINARY: None MUSCULOSKELETAL: Chronic joint pains LYMPHATICS: None HEMATOLOGICAL: None PSYCHIATRY: None NEUROLOGICAL: None Past medical history to include: Diabetes, fibromyalgia, GERD, hyperlipidemia, gallstones, kidney stones, irritable bowel syndrome, Martine-Guevara tear, lumboperitoneal shunt for pseudotumor cerebri, bipolar disorder, PTSD. Ureteral stent on the right Social history: Patient lives with her mother and 4 children. No history of smoking or alcohol. Physical examination: VITAL SIGNS: 98.8, 105, 18, 127 with 71, 100% room air GENERAL: BMI 49.6, laying in bed, not in distress EYES: Pupils equal. Conjunctiva normal. HEENT: External appearance of nose and ears normal, oral cavity grossly normal. NECK: JVD not raised; masses not palpable. HEART: First and second heart sounds are normal; no edema. LUNGS: Respiratory rate normal; clear to auscultation. ABDOMEN: Soft, upper abdomen tenderness, no guarding rigidity, liver spleen not palpable, no masses palpable. PSYCH: Alert and oriented x3; mood and affect anxious. NEUROLOGICAL: Cranial nerves grossly intact; no facial asymmetry, power and sensation grossly intact. LYMPHATICS: No lymph nodes palpable in the axilla and neck INVESTIGATIONS, reviewed in the clinical context: White count 10.9 hemoglobin 13.2 potassium 4.3 creatinine 0.82 Coronavirus [PCR]-not detected Assessment and plan.: -Increasing headaches/Cephalgia in a patient who is known to have cecal tumor cerebri and has a lumboperitoneal shunt this needs to be having revision. Neurology consulted. Discussed with the patient that any measures and the hospital referred be rather temporally. She needs to eventually follow up with her neurosurgeon. -Recent left lower abdominal pain with a fluid collection in the left lower quadrant. Possibly related to ROUTE AIDE shunt -Nonalcoholic fatty liver disease -Diabetes mellitus type 2, follow Accu-Cheks -Chronic fibromyalgia, resume home. Medications -GERD, on PPI -Hyperlipidemia, on Pravachol -Irritable bowel syndrome, use pain medication when necessary -Morbid obesity BMI 51.8, for weight loss measures and follow-up with PCP -Bipolar disorder and PTSD, patient is on Abilify Ativan Wellbutrin XL BuSpar trazodone - Past Medical History Past Medical History: Diabetes Mellitus, Fibromyalgia, GERD/Reflux, GI Bleed, Hyperlipidemia Additional Past Medical History / Comment(s): gallstones, kidney stones, IBS, migraines, tachycardia, Martine- Guevara tear, blood clot History of Any Multi-Drug Resistant Organisms: None Reported Past Surgical History: Section, Cholecystectomy, Tubal Ligation Additional Past Surgical History / Comment(s): neck biopsy (lymph node ) d&c; LP shunt May 13 2019 feb 0211/2019 -revision, stent/ lithotripsy on left, cystoscopy, Past Anesthesia/Blood Transfusion Reactions: No Reported Reaction Past Psychological History: Anxiety, Bipolar, Depression, PTSD Smoking Status: Never smoker, Vaper Past Alcohol Use History: Rare Past Drug Use History: Marijuana - Past Family History Mother Family Medical History: Diabetes Mellitus, Hyperlipidemia, Hypertension, Myocardial Infarction ([place]) Additional Family Medical History / Comment(s): [place] X 3 Father Family Medical History: Congestive Heart Failure (CHF), Hyperlipidemia, Hypertension, Myocardial Infarction ([place]) Additional Family Medical History / Comment(s): mi x 3 Son(s) Family Medical History: No Reported History Medications and Allergies Home Medications Medication Instructions Recorded Confirmed Type Pravastatin Sodium [Pravachol] 20 mg PO HS 01/20/18 07/04/20 History LORazepam [Ativan] 1 mg PO HS 11/24/18 07/04/20 History buPROPion HCL [Wellbutrin XL] 300 mg PO DAILY 12/15/19 07/04/20 History traZODone HCL 50 mg PO HS 12/15/19 07/04/20 History ARIPiprazole 20 mg PO HS 01/09/20 07/04/20 History ARIPiprazole [Abilify] 5 mg PO DAILY 01/09/20 07/04/20 History Topiramate 50 mg PO HS 01/09/20 07/04/20 History acetaZOLAMIDE [Diamox] 250 mg PO BID 01/09/20 07/04/20 History busPIRone HCL 15 mg PO TID PRN 01/09/20 07/04/20 History Amitriptyline HCl [Elavil] 75 mg PO BID 01/24/20 07/04/20 History Verapamil HCl [Verapamil ER] 180 mg PO HS 01/24/20 07/04/20 History Etonogestrel [Nexplanon] 68 mg SQ ONCE 02/20/20 07/04/20 History Gabapentin 600 mg PO TID 02/20/20 07/04/20 History OXcarbazepine [Oxtellar Xr] 150 mg PO HS 02/27/20 07/04/20 History Apixaban [Eliquis] 5 mg PO BID 03/04/20 07/04/20 History hydroCHLOROthiazide 25 mg PO DAILY 03/15/20 07/04/20 History Omeprazole 40 mg PO BID 06/17/20 07/04/20 History Allergies Allergy/AdvReac Type Severity Reaction Status Date / Time NSAIDS (Non-Steroidal AdvReac Pt. states Verified 07/04/20 07:18 Anti-Inflamma NSAIDS have given her a GI bleed in the past. Physical Exam Vitals: Vital Signs Temp Pulse Pulse Resp BP BP Pulse Ox 07/04/20 09:00 98.3 F 102 H 20 127/78 94 L 07/04/20 07:45 106 H 18 119/71 97 07/04/20 05:35 98.8 F 105 H 18 127/71 100 Intake and Output 07/03/20 07/04/20 07/04/20 22:59 06:59 14:59 Other: Weight 122.924 kg Results CBC & Chem 7: 07/04/20 06:50 07/04/20 06:50 Labs: Abnormal Lab Results - Last 24 Hours (Table) 07/04/20 07/04/20 Range/Units 06:50 06:50 WBC 10.9 H (3.8-10.6) k/uL RDW 16.2 H (11.5-15.5) % Neutrophils # 8.1 H (1.3-7.7) k/uL Chloride 110 H (98-107) mmol/L Carbon Dioxide 21 L (22-30) mmol/L Glucose 170 H (74-99) mg/dL AST 40 H (14-36) U/L ALT 46 H (4-34) U/L Thrombosis Risk Factor Assmnt - Choose All That Apply Any of the Below Risk Factors Present?: Yes Each Factor Represents 1 point: Hx of IBD, Obesity (BMI >25), Varicose veins Other Risk Factors: No Other congenital or acquired thrombophilia - If yes, enter type in comment: No Thrombosis Risk Factor Assessment Total Risk Factor Score: 3 Thrombosis Risk Factor Assessment Level: Moderate Risk
[2020-07-05] MEDS: HYDROmorphone 1 MG/ML 1 ML SYRINGE IVP STA (00:15)
[2020-07-05] MEDS: ONDANSETRON 4 MG/2 ML VIAL IVP PRN ×2 (05:25→20:21)
[2020-07-05] MEDS: HYDROmorphone 1 MG/ML 1 ML SYRINGE IVP PRN ×4 (05:26→20:21)
[2020-07-05] MEDS: PANTOPRAZOLE 40 MG TABLET PO SCH ×2 (06:38→17:18)
[2020-07-05] MEDS: GABAPENTIN 300 MG CAP PO SCH ×3 (08:52→21:57)
[2020-07-05] MEDS: AMITRIPTYLINE HCL 25 MG TAB PO SCH ×2 (08:53→21:54)
[2020-07-05] MEDS: acetaZOLAMIDE 250 MG TAB PO SCH ×2 (08:54→20:31)
[2020-07-05] MEDS: ARIPiprazole 5 MG TAB PO SCH (08:55)
[2020-07-05] MEDS: buPROPion XL 300 MG TAB.ER.24H PO SCH (08:55)
[2020-07-05] MEDS: hydroCHLOROthiazide 25 MG TAB PO SCH (08:56)
--- NOTE | 2020-07-05 11:30 | P.PN ---
Subjective Progress Note Date: 07/05/20 Patient complains of headache 9/10. With Dilaudid goes down to 8/10. Patient continues to complain about dizziness, lightheadedness, difficulty walking, blurred vision, double vision. Fioricet did not help. She is on higher dose of Diamox. No new focal symptoms. Objective - Vital Signs Vital signs: Vital Signs Temp 98.3 F 07/05/20 08:48 Pulse 110 H 07/05/20 08:48 Resp 16 07/05/20 08:48 BP 135/86 07/05/20 08:48 Pulse Ox 100 07/05/20 08:48 Intake & Output 07/04/20 07/05/20 07/05/20 18:59 06:59 18:59 Intake Total 300 500 Output Total 700 950 800 Balance -400 -450 -800 Intake: Oral 300 500 Output: Urine 700 950 800 Other: Voiding Method Toilet Toilet # Voids 1 1 - Exam Patient is alert and awake, but appears to be in pain because of headache. Exam nonfocal. Visual green full. - Labs CBC & Chem 7: 07/04/20 06:50 07/04/20 06:50 Assessment and Plan Assessment: * History of pseudotumor cerebri, status post lumboperitoneal shunting on 0 05/13/2019, that required revision on 02/03/2020. Patient states that she is scheduled for a third revision on 07/11/2020. * Migraine headache, possible related to pseudotumor cerebri. Migraine not im proving, still 8-01/05. * History of DVT, on anticoagulation. * Diabetes * Hypertension Plan: * Patient has not responded to Fioricet, on increased dose of Diamox. * Patient spoke to her surgeon Dr. Willams nurse, who has cleared the patient for lumbar puncture. As the headache is still persistent, not improving with medications, we will proceed with the diagnostic and therapeutic lumbar puncture. Opening pressure needs to be checked. At least 20 mL of spinal fluid needs to be drained to bring closing pressure to <21 cm. We will send CSF for testing. * Continue Diamox 500 mg twice a day for pseudotumor cerebri. * Discussed with the patient, she agreed to proceed with lumbar puncture. Anesthesiology be consulted.
--- NOTE | 2020-07-05 12:21 | P.PAINCN ---
History of Present Illness - Reason for Consult Consult date: 07/05/20 - History of Present Illness This is a 30-year-old patient referred to us by neurology for lumbar puncture. to recap her history, she is an diagnosis pseudotumor cerebri underwent a lumboperitoneal shunt procedure in April 2019 with revision in January 2020. She is scheduled to undergo another revision in June of this year. She had been doing well until a few days ago when she came to the hospital due to throwing up blood. She was also having a global migraine along with blurred vision double vision and inability to walk. Was having significant nausea despite Zofran. Currently taking Diamox 250 twice a day, topamax 50 mg QHS, gabapentin 600 mg TID, elavil 75 mg BID, verapamil 180 mg ER. Of note she is on Eliquis for a history of DVT but that has been held since 07/02. In addition to above, 13-point review of systems is also negative for chest pain, shortness of breath, changes in vision, changes in hearing, new onset weakness, abdominal pain, diarrhea, extreme fatigue, malaise, fever, skin changes, homicidal or suicidal ideation, or bowel or bladder incontinence. Physical exam: Vital Signs: Reviewed in EMR GENERAL: obese, sleepy PSYCH: Mood and affect is appropriate. lethargic but oriented SKIN: Skin color, texture, turgor normal, no rashes or lesions HEENT: Normocephalic, atraumatic. EOM intact CV: No pedal edema RESP: Respirations are unlabored, no audible wheezing GI: Abdomen non-distended Extremities: Peripheral joint ROM is full and pain free without obvious insta bility or laxity in all four extremities. No edema or skin discolorations noted. Gait: Gait is normal NEUR: Bilateral upper and lower extremity coordination and muscle stretch reflexes are physiologic and symmetric. Negative clonus. No loss of sensation is noted. Cranial nerves are grossly intact. Imaging: Recent brain CT shows no evidence of elevated ICP Assessment: 1. Pseudotumor cerebri Plan: - Will proceed with lumbar puncture tomorrow, continue to hold Eliquis until 6 hours after LP I spent 45 minutes on patient care today. The time was used to review medical r ecords including relevant urine studies and prescription history (MAPs), review of the available imaging, evaluation and examination the patient, coordination of care at the medical staff and if applicable referring physicians, as well as creation of the medical record. Past Medical History Past Medical History: Diabetes Mellitus, Fibromyalgia, GERD/Reflux, GI Bleed, Hyperlipidemia Additional Past Medical History / Comment(s): gallstones, kidney stones, IBS, migraines, tachycardia, Martine- Guevara tear, blood clot History of Any Multi-Drug Resistant Organisms: None Reported Past Surgical History: Section, Cholecystectomy, Tubal Ligation Additional Past Surgical History / Comment(s): neck biopsy (lymph node ) d&c; LP shunt May 13 2019 feb 0211/2019 -revision, stent/ lithotripsy on left, cystoscopy, Past Anesthesia/Blood Transfusion Reactions: No Reported Reaction Past Psychological History: Anxiety, Bipolar, Depression, PTSD Smoking Status: Never smoker, Vaper Past Alcohol Use History: Rare Past Drug Use History: Marijuana - Past Family History Mother Family Medical History: Diabetes Mellitus, Hyperlipidemia, Hypertension, Myocardial Infarction (LA) Additional Family Medical History / Comment(s): [place] X 3 Father Family Medical History: Congestive Heart Failure (CHF), Hyperlipidemia, H ypertension, Myocardial Infarction (LA) Additional Family Medical History / Comment(s): mi x 3 Son(s) Family Medical History: No Reported History Medications and Allergies Home Medications Medication Instructions Recorded Confirmed Type Pravastatin Sodium [Pravachol] 20 mg PO HS 01/20/18 07/04/20 History LORazepam [Ativan] 1 mg PO HS 11/24/18 07/04/20 History buPROPion HCL [Wellbutrin XL] 300 mg PO DAILY 12/15/19 07/04/20 History traZODone HCL 50 mg PO HS 12/15/19 07/04/20 History ARIPiprazole 20 mg PO HS 01/09/20 07/04/20 History ARIPiprazole [Abilify] 5 mg PO DAILY 01/09/20 07/04/20 History Topiramate 50 mg PO HS 01/09/20 07/04/20 History acetaZOLAMIDE [Diamox] 250 mg PO BID 01/09/20 07/04/20 History busPIRone HCL 15 mg PO TID PRN 01/09/20 07/04/20 History Amitriptyline HCl [Elavil] 75 mg PO BID 01/24/20 07/04/20 History Verapamil HCl [Verapamil ER] 180 mg PO HS 01/24/20 07/04/20 History Etonogestrel [Nexplanon] 68 mg SQ ONCE 02/20/20 07/04/20 History Gabapentin 600 mg PO TID 02/20/20 07/04/20 History OXcarbazepine [Oxtellar Xr] 150 mg PO HS 02/27/20 07/04/20 History Apixaban [Eliquis] 5 mg PO BID 03/04/20 07/04/20 History hydroCHLOROthiazide 25 mg PO DAILY 03/15/20 07/04/20 History Omeprazole 40 mg PO BID 06/17/20 07/04/20 History Allergies Allergy/AdvReac Type Severity Reaction Status Date / Time NSAIDS (Non-Steroidal AdvReac Pt. states Verified 07/04/20 07:18 Anti-Inflamma NSAIDS have given her a GI bleed in the past. Physical Exam Vitals: Vital Signs Temp Pulse Resp BP Pulse Ox 07/05/20 08:48 98.3 F 110 H 16 135/86 100 07/05/20 02:00 97.6 F 102 H 20 126/84 97 07/04/20 20:00 97.6 F 105 H 16 117/71 95 07/04/20 15:07 98.2 F 110 H 16 110/69 97 Intake and Output 07/04/20 07/05/20 07/05/20 22:59 06:59 14:59 Intake Total 300 500 Output Total 950 800 Balance 300 -450 -800 Intake: Oral 300 500 Output: Urine 950 800 Other: Voiding Method Toilet # Voids 1 1 Results CBC & Chem 7: 07/04/20 06:50 07/04/20 06:50 PQRS Measure Charge Sheet PQRS Narrative: Smoking Status Never smoker Do You Want the Pneumonia No Vaccine AT THIS TIME? Blood Pressure [Right Arm] 135/86 Blood Pressure 119/71 Pain Intensity 9 Pain Scale Used Numeric (1 - 10) Scale Used Numeric (1 - 10) Home Medications: Ambulatory Orders Pravastatin Sodium [Pravachol] 20 mg PO HS 01/20/18 LORazepam [Ativan] 1 mg PO HS 11/24/18 buPROPion HCL [Wellbutrin XL] 300 mg PO DAILY 12/15/19 traZODone HCL 50 mg PO HS 12/15/19 ARIPiprazole 20 mg PO HS 01/09/20 ARIPiprazole [Abilify] 5 mg PO DAILY 01/09/20 Topiramate 50 mg PO HS 01/09/20 acetaZOLAMIDE [Diamox] 250 mg PO BID 01/09/20 busPIRone HCL 15 mg PO TID PRN 01/09/20 Amitriptyline HCl [Elavil] 75 mg PO BID 01/24/20 Verapamil HCl [Verapamil ER] 180 mg PO HS 01/24/20 Etonogestrel [Nexplanon] 68 mg SQ ONCE 02/20/20 Gabapentin 600 mg PO TID 02/20/20 OXcarbazepine [Oxtellar Xr] 150 mg PO HS 02/27/20 Apixaban [Eliquis] 5 mg PO BID 03/04/20 hydroCHLOROthiazide 25 mg PO DAILY 03/15/20 Omeprazole 40 mg PO BID 06/17/20
[2020-07-05] MEDS: diphenhydrAMINE 50 MG/ML 1 ML VIAL IVP PRN ×2 (13:13→22:55)
[2020-07-05] MEDS: BUTALB/APAP/CAFF 50-325-40MG TAB PO PRN (14:11)
[2020-07-05] MEDS: OXYMETAZOLINE 0.05% NASL SPRAY 1 SPRAY BOTTLE NASAL SCH ×2 (15:43→21:55)
[2020-07-05] MEDS: VERAPAMIL SR 180 MG TABLET.ER PO SCH (21:54)
[2020-07-05] MEDS: traZODone HCL 50 MG TAB PO SCH (21:54)
[2020-07-05] MEDS: TOPIRAMATE 25 MG TAB PO SCH (21:55)
[2020-07-05] MEDS: PRAVASTATIN SODIUM 20 MG TAB PO SCH (21:55)
[2020-07-05] MEDS: OXCARBAZEPINE 150 MG PO SCH (21:56)
[2020-07-05] MEDS: LORazepam 0.5 MG TAB PO SCH (22:59)
--- NOTE | 2020-07-05 23:08 | P.PN ---
Progress Note - Text Progress Note Date: 07/05/20 Chief Complaint: Headache History of presenting complaint: This is a 30-year-old patient ; chronic stable medical conditions include diabetes, fibromyalgia, GERD, hyperlipidemia, irritable bowel syndrome, . Bipolar disorder. Right ureteral stone with stent placement. Patient has a pseudotumor cerebri. 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 IV lumboperitoneal shunt. This was done by on 05/13/2019. Subsequently patient had a revision of the same on 02/03/2020. Patient been having increasing headaches rather global. Slight photophobia. No fever no chills. Appetite is good. She went back to see Dr. Waldron recently patient and she been told that patient needs revision again that is scheduled for June 13. Admitted with increasing headache felt to be from pseudotumor cerebri with some dysfunction of the lumboperitoneal shunt. Today-still having the headaches. Per neurology patient is to go ahead with a lumbar puncture. Patient able to tolerate her diet well. Review of systems: Was done for constitutional, cardiovascular, GI, pulmonary. relevant finding as above R Past medical history to include: Diabetes, fibromyalgia, GERD, hyperlipidemia, gallstones, kidney stones, irritable bowel syndrome, Martine-Guevara tear, lumboperitoneal shunt for pseudotumor cerebri, bipolar disorder, PTSD. Ureteral stent on the right Social history: Patient lives with her mother and 4 children. No history of smoking or alcohol. Physical examination: VITAL SIGNS: 98.3, 110, 16, 1 35/86, 100% room air GENERAL: BMI 49.6, laying in bed, not in distress EYES: Pupils equal. Conjunctiva normal. HEENT: External appearance of nose and ears normal, oral cavity grossly normal. NECK: JVD not raised; masses not palpable. HEART: First and second heart sounds are normal; no edema. LUNGS: Respiratory rate normal; clear to auscultation. ABDOMEN: Soft, upper abdomen tenderness, no guarding rigidity, liver spleen not palpable, no masses palpable. PSYCH: Alert and oriented x3; mood and affect anxious. INVESTIGATIONS, reviewed in the clinical context: White count 10.9 hemoglobin 13.2 potassium 4.3 creatinine 0.82 Coronavirus [PCR]-not detected Assessment and plan.: -Increasing headaches/Cephalgia in a patient who is known to have cecal tumor cerebri and has a lumboperitoneal shunt this needs to be having revision. Patient will have lumbar puncture done. -Recent left lower abdominal pain with a fluid collection in the left lower quadrant. Possibly related to [employer] shunt -Nonalcoholic fatty liver disease -Diabetes mellitus type 2, follow Accu-Cheks -Chronic fibromyalgia, resume home. Medications -GERD, on PPI -Hyperlipidemia, on Pravachol -Irritable bowel syndrome, use pain medication when necessary -Morbid obesity BMI 51.8, for weight loss measures and follow-up with PCP -Bipolar disorder and PTSD, patient is on Abilify Ativan Wellbutrin XL BuSpar trazodone -
[2020-07-06] MEDS: HYDROmorphone 1 MG/ML 1 ML SYRINGE IVP PRN ×3 (00:36→09:19)
[2020-07-06] MEDS: ONDANSETRON 4 MG/2 ML VIAL IVP PRN ×2 (06:13→12:07)
[2020-07-06] MEDS: PANTOPRAZOLE 40 MG TABLET PO SCH ×2 (06:14→16:01)
[2020-07-06] MEDS: buPROPion XL 300 MG TAB.ER.24H PO SCH (09:16)
[2020-07-06] MEDS: ARIPiprazole 5 MG TAB PO SCH (09:16)
[2020-07-06] MEDS: GABAPENTIN 300 MG CAP PO SCH ×2 (09:16→16:01)
[2020-07-06] MEDS: acetaZOLAMIDE 250 MG TAB PO SCH (09:17)
[2020-07-06] MEDS: hydroCHLOROthiazide 25 MG TAB PO SCH (09:17)
[2020-07-06] MEDS: OXYMETAZOLINE 0.05% NASL SPRAY 1 SPRAY BOTTLE NASAL SCH (09:17)
[2020-07-06 10:08] VITALS: TEMP 98.9
[2020-07-06] MEDS ORDERED: IV FLUID CONTINUATION 1,000 ML IV ONE (10:11)
[2020-07-06 10:32] LABS: Glucose,Whole Blood 113 mg/dL (75-99)
[2020-07-06] MEDS ORDERED: fentaNYL (PF) 50 MCG/ML 2 ML AMP ONE (11:10)
[2020-07-06] MEDS ORDERED: MIDAZOLAM 2 MG/2 ML VIAL ONE (11:10)
--- NOTE | 2020-07-06 11:33 | P.PCN ---
Date of Procedure: 07/06/20 Procedure(s) Performed: Preoperative diagnosis: Pseudotumor cerebri Post operative diagnoses: Pseudotumor cerebri . Procedure= lumbar puncture Anesthesia= moderate sedation with Versed 2 mg and fentanyl 100 g local infiltration with lidocaine 1% 3 mL. Condition: stable Complication: none. Description of the procedure procedure risk and benefits discussed with the patient and family, consent signed. Patient and the procedure area placed in lateral position ( right side down ), back prepped with chlorhexidine 3 times , sedation was given to decrease patient's anxiety , vital signs was monitored throughout the case , local infiltration of the skin and subcutaneous tissue with lidocaine 1% 3 mL for skin and subcu interstitial frustrations at L3-4 levels then 20-gauge Quincke-type needle advanced slowly at L3-4 interlaminar space there was positive cerebrospinal fluid which was clear, no heme, no pa resthesia ,total of 20 ML of clear cerebrospinal fluid collected in 4 different tubes 4-5 mL in each, then the needle (Was also some CSF fluid drained during measuring the opening pressure and also lost during the procedure 0 removed and a Band-Aid applied and patient tolerated the procedure well without any complications. Opening pressure= 36 cm water. Total volume removed= 20 ML of clear cerebrospinal fluid
[2020-07-06 11:57] LABS: Glucose,CSF 65 mg/dL (40-70); Total Protein,CSF 31 mg/dL (12-60)
[2020-07-06] MEDS: AMITRIPTYLINE HCL 25 MG TAB PO SCH (12:07)
[2020-07-06] MEDS: BUTALB/APAP/CAFF 50-325-40MG TAB PO PRN (12:07)
[2020-07-06 12:21] VITALS: RESP 16
[2020-07-06 12:22] VITALS: BP 110/70; PULSE 104
[2020-07-06 15:27] LABS: Appearance,CSF Clear; CSF Tube Number 4
[2020-07-06 15:31] LABS: Nucleated Cells, CSF 0 u/L (0-5); Red Blood Cell,CSF 3 u/L (0-10)
--- NOTE | 2020-07-06 17:27 | P.PN ---
Progress Note - Text Progress Note Date: 07/06/20 Patient underwent lumbar puncture by an anesthesiologist. Opening pressure was 36 cm, 20 mL of clear spinal fluid was removed. Spinal fluid revealed 0 WBC, 3 RBC, glucose 65, protein 31 all normal. Closing pressure could not be checked. Patient's headache had improved per nursing report. It was recommended to discharge patient on Diamox 500 mg twice a day. Patient to follow up with her neurologist, and neurosurgeon. Neurologically clear for discharge.
--- NOTE | 2020-07-07 18:58 | P.DS ---
Providers Date of admission: 07/04/20 06:06 Expected date of discharge: 07/06/20 Attending physician: Efrain Goodman Consults: 07/04/20 06:05 Consult Physician Routine Consulting Provider: Lucila Marvin Consult Reason/Comments: [email or web address] Do you want consulting provider notified?: Yes 07/05/20 11:20 Consult to Anesthesia Routine Consulting Provider: Anesthesia,Services Consult Reason/Comments: L/P OPENING PRESSURE DRAIN AT LEAST 20CC, PSEUDO TUMOR, PERSISTENT MCDANIEL Primary care physician: [facility] Course: Chief Complaint: Headache History of presenting complaint: This is a 30-year-old patient ; chronic stable medical conditions include diabetes, fibromyalgia, GERD, hyperlipidemia, irritable bowel syndrome, . Bipolar disorder. Right ureteral stone with stent placement. Patient has a pseudotumor cerebri. 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 IV lumboperitoneal shunt. This was done by on 05/13/2019. Subsequently patient had a revision of the same on 02/03/2020. Patient been having increasing headaches rather global. Slight photophobia. No fever no chills. Appetite is good. She went back to see Dr. Waldron recently patient and she been told that patient needs revision again that is scheduled for June 13. Admitted with increasing headache felt to be from pseudotumor cerebri with some dysfunction of the lumboperitoneal shunt. Today-patient earlier today underwent lumbar puncture. Opening pressure was 36. About 20 mL of clear CSF was removed. Patient eliquis had been held for the procedure. Patient due for a revision of full lumboperitoneal shunt. Patient is told to hold off on eliquis 48 as before the procedure. Patient was doing better. Cleared by neurology to go home. Patient will follow-up with the neurologist scheduled shortly Discussion and discharge planning more than 35 minutes Review of systems: Was done for constitutional, cardiovascular, GI, pulmonary. relevant finding as above Past medical history to include: Diabetes, fibromyalgia, GERD, hyperlipidemia, gallstones, kidney stones, irritable bowel syndrome, Martine-Guevara tear, lumboperitoneal shunt for pseudot umor cerebri, bipolar disorder, PTSD. Ureteral stent on the right Social history: Patient lives with her mother and 4 children. No history of smoking or alcohol. Physical examination: VITAL SIGNS: 98.9, 108, 20, 100/61, 96% room air GENERAL: BMI 49.6, laying in bed, not in distress EYES: Pupils equal. Conjunctiva normal. HEENT: External appearance of nose and ears normal, oral cavity grossly normal. NECK: JVD not raised; masses not palpable. HEART: First and second heart sounds are normal; no edema. LUNGS: Respiratory rate normal; clear to auscultation. ABDOMEN: Soft, upper abdomen tenderness, no guarding rigidity, liver spleen not palpable, no masses palpable. PSYCH: Alert and oriented x3; mood and affect anxious. INVESTIGATIONS, reviewed in the clinical context: White count 10.9 hemoglobin 13.2 potassium 4.3 creatinine 0.82 Coronavirus [PCR]-not detected Assessment and plan.: -Increasing headaches/Cephalgia in a patient who is known to have psuedo- tumor cerebri and has a lumboperitoneal shunt this needs to be having revision. Patient will have lumbar puncture done. -Nonalcoholic fatty liver disease -Diabetes mellitus type 2, follow Accu-Cheks -Chronic fibromyalgia, resume home. Medications -GERD, on PPI -Hyperlipidemia, on Pravachol -Irritable bowel syndrome, use pain medication when necessary -Morbid obesity BMI 51.8, for weight loss measures and follow-up with PCP -Bipolar disorder and PTSD, patient is on Abilify Ativan Wellbutrin XL BuSpar trazodone Disposition: Home Plan - Discharge Summary New Discharge Prescriptions: Continue Pravastatin Sodium [Pravachol] 20 mg PO HS LORazepam [Ativan] 1 mg PO HS traZODone HCL 50 mg PO HS buPROPion HCL [Wellbutrin XL] 300 mg PO DAILY Topiramate 50 mg PO HS busPIRone HCL 15 mg PO TID PRN PRN Reason: Anxiety ARIPiprazole [Abilify] 5 mg PO DAILY acetaZOLAMIDE [Diamox] 250 mg PO BID ARIPiprazole 20 mg PO HS Verapamil HCl [Verapamil ER] 180 mg PO HS Amitriptyline HCl [Elavil] 75 mg PO BID Gabapentin 600 mg PO TID Etonogestrel [Nexplanon] 68 mg SQ ONCE OXcarbazepine [Oxtellar Xr] 150 mg PO HS Apixaban [Eliquis] 5 mg PO BID hydroCHLOROthiazide 25 mg PO DAILY Omeprazole 40 mg PO BID Discharge Medication List Pravastatin Sodium [Pravachol] 20 mg PO HS 01/20/18 [History] LORazepam [Ativan] 1 mg PO HS 11/24/18 [History] buPROPion HCL [Wellbutrin XL] 300 mg PO DAILY 12/15/19 [History] traZODone HCL 50 mg PO HS 12/15/19 [History] ARIPiprazole 20 mg PO HS 01/09/20 [History] ARIPiprazole [Abilify] 5 mg PO DAILY 01/09/20 [History] Topiramate 50 mg PO HS 01/09/20 [History] acetaZOLAMIDE [Diamox] 250 mg PO BID 01/09/20 [History] busPIRone HCL 15 mg PO TID PRN 01/09/20 [History] Amitriptyline HCl [Elavil] 75 mg PO BID 01/24/20 [History] Verapamil HCl [Verapamil ER] 180 mg PO HS 01/24/20 [History] Etonogestrel [Nexplanon] 68 mg SQ ONCE 02/20/20 [History] Gabapentin 600 mg PO TID 02/20/20 [History] OXcarbazepine [Oxtellar Xr] 150 mg PO HS 02/27/20 [History] Apixaban [Eliquis] 5 mg PO BID 03/04/20 [History] hydroCHLOROthiazide 25 mg PO DAILY 03/15/20 [History] Omeprazole 40 mg PO BID 06/17/20 [History] Follow up Appointment(s)/Referral(s): Olvin Keenan MD [Primary Care Provider] - 1-2 days Activity/Diet/Wound Care/Special Instructions: Continue regular diet. Do not resume eliquis until at least 6 hours from your hold eliquis 48 hrs before shunt revision. Take diamox dose to 500mg twice a day per neurologist. Follow up with physicians as directed. Call physicians with any questions comments concerns worsening returning symptoms, fever 101.1 or higher, not tolerating diet or fluids, pain not controlled by medications prescribed to you. Discharge/Stand Alone Forms: Anes Pain/[facility] Instructions Discharge Disposition: HOME SELF-CARE
== END 2020-07-06 17:04 | disposition home or self-care (01) ==
LOC: EC 05:27 → 6PED 06:06
PROVIDERS: ADMIT Hospitalist; ATTEND Hospitalist
DX: T85.09XA Other mechanical complication of ventricular intracranial (communicating) shunt, initial encounter (principal); G93.2 Benign intracranial hypertension; D49.7 Neoplasm of unspecified behavior of endocrine glands and other parts of nervous system; G43.909 Migraine, unspecified, not intractable, without status migrainosus; H53.2 Diplopia; I10 Essential (primary) hypertension; E78.5 Hyperlipidemia, unspecified; N20.1 Calculus of ureter; K58.9 Irritable bowel syndrome, unspecified; K21.9 Gastro-esophageal reflux disease without esophagitis; F31.9 Bipolar disorder, unspecified; E11.9 Type 2 diabetes mellitus without complications; F43.10 Post-traumatic stress disorder, unspecified; M79.7 Fibromyalgia; Z82.49 Family history of ischemic heart disease and other diseases of the circulatory system; Z87.442 Personal history of urinary calculi; Z86.718 Personal history of other venous thrombosis and embolism; Z79.899 Other long term (current) drug therapy; Z83.3 Family history of diabetes mellitus; Z79.01 Long term (current) use of anticoagulants; Z20.822 Contact with and (suspected) exposure to COVID-19
CPT/HCPCS: 96361 ×3; 96375 ×2; 96376 ×3; 96374; 99284; 84157; 80053; 82945; 83735; 84100; 85025; 89050; 81025; 87070; 87205; 87635; 62270; G0378 ×3; J2250; J1200 ×2; J0780; J3360; J2405 ×3; J3010; J1170 ×3; 88108; 99152

== ENCOUNTER 2020-07-07 21:18 | Emergency (ER) | payer OTHER ==
[2020-07-07 21:25] VITALS: RESP 20
[2020-07-07] MEDS ORDERED: SODIUM CHLORIDE 0.9% 1,000 ML IV ONE (21:47)
[2020-07-07] MEDS ORDERED: diphenhydrAMINE 50 MG/ML 1 ML VIAL IVP STA (21:47)
[2020-07-07] MEDS ORDERED: ONDANSETRON 4 MG/2 ML VIAL IVP STA (21:47)
--- NOTE | 2020-07-07 22:00 | ED ---
Headache HPI - General Source: patient, RN notes reviewed Mode of arrival: wheelchair Limitations: no limitations - History of Present Illness MD Complaint: headache (LP done yesterday at hospital) -: hour(s) (7) Onset Description: sudden (states was fine all day until 2pm) Location: diffuse Severity scale (1-10): 10 Quality: throbbing, constant Consistency: constant Improves With: nothing Worsens With: light, noise Context: recent spinal/epidural procedure (LP done yesterday) Associated Symptoms: nausea Other Symptoms: other (blurred vision, headache) Treatments Prior to Arrival: none (states usually gets relief from Neurotec but is out) <Danilo Perkins - Last Filed: 07/07/20 21:48> <Jovani Oakes - Last Filed: 07/11/20 10:42> - General Chief Complaint: Headache Stated Complaint: Migraine Time Seen by Provider: 07/07/20 21:33 - History of Present Illness Initial Comments: 30-year-old white female patient, alert and oriented 4, talking on phone. Pt presents to the emergency room with a headache that started at 1400. Patient states was here in the hospital yesterday and received a lumbar puncture to relieve pressure from pseudotumor cerebri. Patient is due to have a shunt revision next week by Dr. Willams at [facility]. Patient states headache started abruptly, is diffuse with 10/10 pain causing photophobia and blurred vision. Patient has a history of diabetes fibromyalgia, GERD, migraine headaches, irritable bowel syndrome. Patient ALLERGIC to NSAIDs. Patient states she usually has relief from neurotec but does not have any more. (Danilo Perkins) - Related Data Home Medications Medication Instructions Recorded Confirmed Pravastatin Sodium [Pravachol] 20 mg PO HS 01/20/18 07/04/20 LORazepam [Ativan] 1 mg PO HS 11/24/18 07/04/20 buPROPion HCL [Wellbutrin XL] 300 mg PO DAILY 12/15/19 07/04/20 traZODone HCL 50 mg PO HS 12/15/19 07/04/20 ARIPiprazole 20 mg PO HS 01/09/20 07/04/20 ARIPiprazole [Abilify] 5 mg PO DAILY 01/09/20 07/04/20 Topiramate 50 mg PO HS 01/09/20 07/04/20 acetaZOLAMIDE [Diamox] 250 mg PO BID 01/09/20 07/04/20 busPIRone HCL 15 mg PO TID PRN 01/09/20 07/04/20 Amitriptyline HCl [Elavil] 75 mg PO BID 01/24/20 07/04/20 Verapamil HCl [Verapamil ER] 180 mg PO HS 01/24/20 07/04/20 Etonogestrel [Nexplanon] 68 mg SQ ONCE 02/20/20 07/04/20 Gabapentin 600 mg PO TID 02/20/20 07/04/20 OXcarbazepine [Oxtellar Xr] 150 mg PO HS 02/27/20 07/04/20 Apixaban [Eliquis] 5 mg PO BID 03/04/20 07/04/20 hydroCHLOROthiazide 25 mg PO DAILY 03/15/20 07/04/20 Omeprazole 40 mg PO BID 06/17/20 07/04/20 Allergies Allergy/AdvReac Type Severity Reaction Status Date / Time NSAIDS (Non-Steroidal AdvReac Pt. states Verified 07/08/20 13:48 Anti-Inflamma NSAIDS have given her a GI bleed in the past. Review of Systems ROS Other: All systems not noted in ROS Statement are negative. <Danilo Perkins - Last Filed: 07/07/20 21:48> ROS Other: All systems not noted in ROS Statement are negative. <Jovani Oakes - Last Filed: 07/11/20 10:42> ROS Statement: Those systems with pertinent positive or pertinent negative responses have been documented in the HPI. Past Medical History Past Medical History: Diabetes Mellitus, Fibromyalgia, GERD/Reflux, GI Bleed, Hyperlipidemia Additional Past Medical History / Comment(s): gallstones, kidney stones, IBS, migraines, tachycardia, Martine- Guevara tear, blood clot History of Any Multi-Drug Resistant Organisms: None Reported Past Surgical History: Section, Cholecystectomy, Tubal Ligation Additional Past Surgical History / Comment(s): neck biopsy (lymph node ) d&c; LP shunt May 13 2019 feb 0211/2019 -revision, stent/ lithotripsy on left, cystoscopy, Past Anesthesia/Blood Transfusion Reactions: No Reported Reaction Past Psychological History: Anxiety, Bipolar, Depression, PTSD Smoking Status: Never smoker, Vaper Past Alcohol Use History: Rare Past Drug Use History: Marijuana - Past Family History Mother Family Medical History: Diabetes Mellitus, Hyperlipidemia, Hypertension, Myocardial Infarction (HI) Additional Family Medical History / Comment(s): HI X 3 Father Family Medical History: Congestive Heart Failure (CHF), Hyperlipidemia, Hypertension, Myocardial Infarction (HI) Additional Family Medical History / Comment(s): mi x 3 Son(s) Family Medical History: No Reported History <Danilo Perkins - Last Filed: 07/07/20 21:48> General Exam Limitations: no limitations General appearance: alert, in no apparent distress, obese Head exam: Present: atraumatic, normocephalic, normal inspection Eye exam: Present: normal appearance, PERRL, EOMI. Absent: scleral icterus, conjunctival injection, periorbital swelling Respiratory exam: Present: normal lung sounds bilaterally. Absent: respiratory distress, wheezes, rales, rhonchi, stridor Cardiovascular Exam: Present: tachycardia, normal heart sounds, JVD GI/Abdominal exam: Present: soft, normal bowel sounds. Absent: distended, tenderness, guarding, rebound, rigid Neurological exam: Present: alert, oriented X3, CN II-XII intact Psychiatric exam: Present: normal affect, normal mood Skin exam: Present: warm, dry, intact, normal color. Absent: rash <Danilo Perkins - Last Filed: 07/07/20 21:48> Course Vital Signs 07/07/20 07/07/20 07/07/20 21:21 22:42 23:53 Temperature 98.5 F Pulse Rate 117 H 118 H 113 H Respiratory 20 20 20 Rate Blood Pressure 112/73 119/73 109/62 O2 Sat by Pulse 100 99 100 Oximetry 07/08/20 07/08/20 07/08/20 01:15 02:45 03:22 Temperature 98.3 F Pulse Rate 118 H 107 H 111 H Respiratory 20 20 20 Rate Blood Pressure 126/73 115/67 111/69 O2 Sat by Pulse 100 98 97 Oximetry Medical Decision Making - Lab Data Result diagrams: 07/07/20 21:59 <Jovani Oakes - Last Filed: 07/11/20 10:42> - Medical Decision Making This patient is a 30-year-old woman presenting with headache. She did have recent lumbar puncture and therefore is given caffeine as well as other analgesics. She is feeling somewhat better at time of reevaluation though not back to baseline yet. 's cussed case with Dr. Nieves, on-call for anesthesiology. He states that it's at this point would have the patient taken night of rest and if her symptoms do continue she should return in the morning to outpatient procedure for blood patch. (Jovani Oakes) - Lab Data Lab Results 07/07/20 Range/Units 21:59 WBC 12.9 H (3.8-10.6) k/uL RBC 4.77 (3.80-5.40) m/uL Hgb 13.7 (11.4-16.0) gm/dL Hct 40.9 (34.0-46.0) % MCV 85.7 (80.0-100.0) fL MCH 28.6 (25.0-35.0) pg MCHC 33.4 (31.0-37.0) g/dL RDW 16.5 H (11.5-15.5) % Plt Count 163 (150-450) k/uL MPV 7.6 Neutrophils % 78 % Lymphocytes % 13 % Monocytes % 3 % Eosinophils % 5 % Basophils % 0 % Neutrophils # 10.1 H (1.3-7.7) k/uL Lymphocytes # 1.7 (1.0-4.8) k/uL Monocytes # 0.4 (0-1.0) k/uL Eosinophils # 0.7 (0-0.7) k/uL Basophils # 0.0 (0-0.2) k/uL Anisocytosis Slight Disposition <Danilo Perkins - Last Filed: 07/07/20 21:48> Is patient prescribed a controlled substance at d/c from ED?: No <Jovani Oakes - Last Filed: 07/11/20 10:42> Clinical Impression: Headache Disposition: HOME SELF-CARE Condition: Fair Instructions (If sedation given, give patient instructions): Acute Headache (ED) Referrals: Olvin Keenan MD [Primary Care Provider] - 1-2 days Winnie Das MD [STAFF PHYSICIAN] - 1-2 days
[2020-07-07 22:34] LABS: Anisocytosis Slight; Basophils % (A) 0 %; Eosinophils # (A) 0.7 k/uL (0-0.7); Eosinophils % (A) 5 %; HCT 40.9 % (34.0-46.0); HGB 13.7 gm/dL (11.4-16.0); Lymphocytes # (A) 1.7 k/uL (1.0-4.8); Lymphocytes % (A) 13 %; MCH 28.6 pg (25.0-35.0); MCHC 33.4 g/dL (31.0-37.0); MCV 85.7 fL (80.0-100.0); Mean Platelet Volume 7.6; Monocytes # (A) 0.4 k/uL (0-1.0); Monocytes % (A) 3 %; Neutrophils # (A) 10.1 k/uL (1.3-7.7); Neutrophils % (A) 78 %; Platelet Count 163 k/uL (150-450); RBC 4.77 m/uL (3.80-5.40); RDW 16.5 % (11.5-15.5); WBC 12.9 k/uL (3.8-10.6)
[2020-07-07] MEDS ORDERED: CAFFEINE CITRATE 500 MG in DEXTROSE 5% IN WATER 50 ML IV STA ×2 (23:15)
[2020-07-07] MEDS ORDERED: CAFFEINE-SODIUM BENZOATE 500 MG in SODIUM CHLORIDE 0.9% 1,000 ML IVPB ONE (23:25)
[2020-07-08] MEDS ORDERED: HYDROmorphone 1 MG/ML 1 ML SYRINGE IVP STA ×2 (01:05→02:29)
[2020-07-08 03:32] VITALS: BP 111/69; PULSE 111; TEMP 98.3
== END 2020-07-08 03:22 | disposition home or self-care (01) ==
LOC: EC 21:18
DX: G43.909 Migraine, unspecified, not intractable, without status migrainosus (principal); E11.9 Type 2 diabetes mellitus without complications; E78.5 Hyperlipidemia, unspecified; K21.9 Gastro-esophageal reflux disease without esophagitis; Z79.01 Long term (current) use of anticoagulants
CPT/HCPCS: 36415; 85025; 99284; J1200; J2405; J1170

== ENCOUNTER 2020-07-08 13:36 | Emergency (ER) | payer OTHER ==
[2020-07-08 13:52] VITALS: TEMP 98.5
[2020-07-08] MEDS ORDERED: SODIUM CHLORIDE 0.9% 1,000 ML IV STA (14:04)
[2020-07-08] MEDS ORDERED: ONDANSETRON 4 MG/2 ML VIAL IVP STA (14:04)
[2020-07-08] MEDS ORDERED: HYDROmorphone 1 MG/ML 1 ML SYRINGE IVP STA (14:04)
[2020-07-08] MEDS ORDERED: diphenhydrAMINE 50 MG/ML 1 ML VIAL IVP STA (14:04)
--- NOTE | 2020-07-08 14:20 | ED ---
Headache HPI - General Chief Complaint: Headache Stated Complaint: Headache Time Seen by Provider: 07/08/20 14:01 Source: RN notes reviewed Mode of arrival: ambulatory Limitations: no limitations - History of Present Illness Initial Comments: Patient is a 30-year-old female presents to emergency department complaining of continued headache that has not gotten any better. She notes that she was just discharged this morning for the same complaint was told to come back if it continued. She did note that she had a low blood pressure didn't this past T hursday. Dr. Oakes stated that if it does not get better with caffeine and symptomatic management a blood patch might be warranted and for her to come back to emergency room. She states that she is still having photophobia symptoms and the headache is 10 out of 10. Shedid try to caffeine drip, Benadryl with no relief the only thing that seemed to help was Dilaudid. Patient denied any chest pain shortness of breath nausea vomiting diarrhea constipation fever fatigue chills change in vision - Related Data Home Medications Medication Instructions Recorded Confirmed Pravastatin Sodium [Pravachol] 20 mg PO HS 01/20/18 07/04/20 LORazepam [Ativan] 1 mg PO HS 11/24/18 07/04/20 buPROPion HCL [Wellbutrin XL] 300 mg PO DAILY 12/15/19 07/04/20 traZODone HCL 50 mg PO HS 12/15/19 07/04/20 ARIPiprazole 20 mg PO HS 01/09/20 07/04/20 ARIPiprazole [Abilify] 5 mg PO DAILY 01/09/20 07/04/20 Topiramate 50 mg PO HS 01/09/20 07/04/20 acetaZOLAMIDE [Diamox] 250 mg PO BID 01/09/20 07/04/20 busPIRone HCL 15 mg PO TID PRN 01/09/20 07/04/20 Amitriptyline HCl [Elavil] 75 mg PO BID 01/24/20 07/04/20 Verapamil HCl [Verapamil ER] 180 mg PO HS 01/24/20 07/04/20 Etonogestrel [Nexplanon] 68 mg SQ ONCE 02/20/20 07/04/20 Gabapentin 600 mg PO TID 02/20/20 07/04/20 OXcarbazepine [Oxtellar Xr] 150 mg PO HS 02/27/20 07/04/20 Apixaban [Eliquis] 5 mg PO BID 03/04/20 07/04/20 hydroCHLOROthiazide 25 mg PO DAILY 03/15/20 07/04/20 Omeprazole 40 mg PO BID 06/17/20 07/04/20 Allergies Allergy/AdvReac Type Severity Reaction Status Date / Time NSAIDS (Non-Steroidal AdvReac Pt. states Verified 07/08/20 13:48 Anti-Inflamma NSAIDS have given her a GI bleed in the past. Review of Systems ROS Statement: Those systems with pertinent positive or pertinent negative responses have been documented in the HPI. ROS Other: All systems not noted in ROS Statement are negative. Past Medical History Past Medical History: Diabetes Mellitus, Fibromyalgia, GERD/Reflux, GI Bleed, Hyperlipidemia Additional Past Medical History / Comment(s): gallstones, kidney stones, IBS, migraines, tachycardia, Martine- Guevara tear, blood clot History of Any Multi-Drug Resistant Organisms: None Reported Past Surgical History: Section, Cholecystectomy, Tubal Ligation Additional Past Surgical History / Comment(s): neck biopsy (lymph node ) d&c; LP shunt May 13 2019 feb 0211/2019 -revision, stent/ lithotripsy on left, cystoscopy, Past Anesthesia/Blood Transfusion Reactions: No Reported Reaction Past Psychological History: Anxiety, Bipolar, Depression, PTSD Smoking Status: Never smoker, Vaper Past Alcohol Use History: Rare Past Drug Use History: Marijuana - Past Family History Mother Family Medical History: Diabetes Mellitus, Hyperlipidemia, Hypertension, Myocardial Infarction (HI) Additional Family Medical History / Comment(s): HI X 3 Father Family Medical History: Congestive Heart Failure (CHF), Hyperlipidemia, Hypertension, Myocardial Infarction (HI) Additional Family Medical History / Comment(s): mi x 3 Son(s) Family Medical History: No Reported History General Exam Limitations: no limitations General appearance: alert, in no apparent distress, obese Head exam: Present: atraumatic, normocephalic, normal inspection Eye exam: Present: normal appearance, PERRL, EOMI. Absent: scleral icterus, conjunctival injection, periorbital swelling ENT exam: Present: normal exam, mucous membranes moist Neck exam: Present: normal inspection. Absent: tenderness, meningismus, lymphadenopathy Respiratory exam: Present: normal lung sounds bilaterally. Absent: respiratory distress, wheezes, rales, rhonchi, stridor Cardiovascular Exam: Present: regular rate, normal rhythm, normal heart sounds. Absent: systolic murmur, diastolic murmur, rubs, gallop, clicks GI/Abdominal exam: Present: soft, normal bowel sounds. Absent: distended, tenderness, guarding, rebound, rigid Extremities exam: Present: normal inspection, full ROM, normal capillary refill. Absent: tenderness, pedal edema, joint swelling, calf tenderness Back exam: Present: normal inspection Neurological exam: Present: alert, oriented X3, CN II-XII intact Psychiatric exam: Present: normal affect, normal mood Skin exam: Present: warm, dry, intact, normal color. Absent: rash Course Vital Signs 07/08/20 13:49 Temperature 98.5 F Pulse Rate 106 H Respiratory 18 Rate Blood Pressure 121/77 O2 Sat by Pulse 97 Oximetry Medical Decision Making - Medical Decision Making 30-year-old female complaining of headache status post lumbar puncture on . Labs, 1 L normal saline, 1 mg of Dilaudid, 4 mg of Zofran ordered. Will talk with Dr. Munoz to see if we can consult anesthesia for possible blood patch. Anesthesia was consult good and reported that patient was to it is EFFECTIVE. Patient was informed of this and she is agreeable to symptomatic management and the on discharge home. Disposition Clinical Impression: Pseudotumor cerebri, Headache Disposition: HOME SELF-CARE Condition: Stable Instructions (If sedation given, give patient instructions): Acute Headache (ED) Additional Instructions: Please return to the Emergency Department if symptoms worsen or any other concerns. Follow-up with primary care in 1-2 days. Follow-up with neurology in 2-4 days. Continue take at home medications as prescribed for symptomatic control. Is patient prescribed a controlled substance at d/c from ED?: No Referrals: Olvin Keenan MD [Primary Care Provider] - 1-2 days Time of Disposition: 15:14
[2020-07-08 15:34] VITALS: BP 117/74; PULSE 98; RESP 16
[2020-07-08] MEDS ORDERED: ACET/COD 300 MG/30 MG STARTER PACK 6 TAB BTL PO STA (15:41)
== END 2020-07-08 15:48 | disposition home or self-care (01) ==
LOC: EC 13:36
DX: G93.2 Benign intracranial hypertension (principal); E11.9 Type 2 diabetes mellitus without complications; E78.5 Hyperlipidemia, unspecified; K21.9 Gastro-esophageal reflux disease without esophagitis; F41.9 Anxiety disorder, unspecified; F32.9 Major depressive disorder, single episode, unspecified
CPT/HCPCS: 99283; 96374; 96375; 96361; J1200; J2405; J1170

== ENCOUNTER 2020-07-25 14:14 | Emergency (ER) | payer OTHER ==
--- NOTE | 2020-07-25 16:33 | ED ---
General Adult HPI - General Stated complaint: Post op pain - History of Present Illness Initial comments: Patient was seen for medical screening in triage: Patient is a 30-year-old female emergency room with a past medical history diabetes mellitus, fibromyalgia, GERD, kidney stones, migraines, gallstones who presents to the emergency department today for chief complaint of post-surgical issue. pt had her drainage tube of her LP shunt replaced on July 11 at [facility] with Dr Waldron. Patient thinks her shunt is misplaced and the fluid is leaking behind her inscision. She noticed this two nights ago and it has gradually worsened. She states she has an appointment tomorrow. Patient did attempt to call her doctor yesterday but did not receive a call back. Patient currently reporting her pain as a 910. patient states she was seen at [facility] yesteday. Patient denies fever, NV, SOB, CP. - Related Data Home Medications Medication Instructions Recorded Confirmed Pravastatin Sodium [Pravachol] 20 mg PO HS 01/20/18 07/25/20 LORazepam [Ativan] 1 mg PO HS 11/24/18 07/25/20 buPROPion HCL [Wellbutrin XL] 300 mg PO DAILY 12/15/19 07/25/20 traZODone HCL 50 mg PO HS 12/15/19 07/25/20 ARIPiprazole 20 mg PO HS 01/09/20 07/25/20 ARIPiprazole [Abilify] 5 mg PO DAILY 01/09/20 07/25/20 Topiramate 50 mg PO HS 01/09/20 07/25/20 acetaZOLAMIDE [Diamox] 250 mg PO BID 01/09/20 07/25/20 busPIRone HCL 15 mg PO TID PRN 01/09/20 07/25/20 Amitriptyline HCl [Elavil] 75 mg PO BID 01/24/20 07/25/20 Verapamil HCl [Verapamil ER] 180 mg PO HS 01/24/20 07/25/20 Etonogestrel [Nexplanon] 68 mg IU ONCE 02/20/20 07/25/20 Gabapentin 600 mg PO TID 02/20/20 07/25/20 OXcarbazepine [Oxtellar Xr] 150 mg PO HS 02/27/20 07/25/20 hydroCHLOROthiazide 25 mg PO DAILY 03/15/20 07/25/20 Omeprazole 40 mg PO BID 06/17/20 07/25/20 Acetaminophen-Codeine 300-30mg 1 - 2 tab PO Q6H PRN 07/25/20 07/25/20 [Tylenol w/codeine #3] Aspirin EC [Ecotrin Low Dose] 81 mg PO DAILY 07/25/20 07/25/20 HYDROcodone/APAP 10-325MG [[place] 1 tab PO TID PRN 07/25/20 07/25/20 10-325] Ondansetron [Zofran] 4 mg PO Q6H PRN 07/25/20 07/25/20 metFORMIN HCL 500 mg PO DAILY 07/25/20 07/25/20 Allergies Allergy/AdvReac Type Severity Reaction Status Date / Time NSAIDS (Non-Steroidal AdvReac Pt. states Verified 07/25/20 16:33 Anti-Inflamma NSAIDS have given her a GI bleed in the past. Review of Systems ROS Statement: Those systems with pertinent positive or pertinent negative responses have been documented in the HPI. ROS Other: All systems not noted in ROS Statement are negative. Past Medical History Past Medical History: Diabetes Mellitus, Fibromyalgia, GERD/Reflux, GI Bleed, Hyperlipidemia Additional Past Medical History / Comment(s): gallstones, kidney stones, IBS, migraines, tachycardia, Martine- Guevara tear, blood clot History of Any Multi-Drug Resistant Organisms: None Reported Past Surgical History: Section, Cholecystectomy, Tubal Ligation Additional Past Surgical History / Comment(s): neck biopsy (lymph node ) d&c; LP shunt May 13 2019 feb 0211/2019 -revision, stent/ lithotripsy on left, cystoscopy, Past Anesthesia/Blood Transfusion Reactions: No Reported Reaction Past Psychological History: Anxiety, Bipolar, Depression, PTSD Smoking Status: Never smoker, Vaper Past Alcohol Use History: Rare Past Drug Use History: Marijuana - Past Family History Mother Family Medical History: Diabetes Mellitus, Hyperlipidemia, Hypertension, Myocardial Infarction (PR) Additional Family Medical History / Comment(s): PR X 3 Father Family Medical History: Congestive Heart Failure (CHF), Hyperlipidemia, Hypert ension, Myocardial Infarction (PR) Additional Family Medical History / Comment(s): mi x 3 Son(s) Family Medical History: No Reported History General Exam General appearance: alert, in no apparent distress Head exam: Present: atraumatic, normocephalic, normal inspection Eye exam: Present: normal appearance, PERRL, EOMI. Absent: scleral icterus, conjunctival injection ENT exam: Present: normal exam, mucous membranes moist Neck exam: Present: normal inspection, full ROM. Absent: tenderness, meningism us, lymphadenopathy Respiratory exam: Present: normal lung sounds bilaterally. Absent: respiratory distress, wheezes, rales, rhonchi, stridor Cardiovascular Exam: Present: regular rate, normal rhythm, normal heart sounds. Absent: systolic murmur, diastolic murmur, rubs, gallop, clicks GI/Abdominal exam: Present: soft, normal bowel sounds, mass (patient has edema near incision site of the LLQ with minimal tenderness. There is no erythema or increased warmth, no evidence of infection.). Absent: distended, tenderness, g uarding, rebound, rigid Course Vital Signs 07/25/20 07/25/20 16:29 21:21 Temperature 98.5 F 98.3 F Pulse Rate 137 H 116 H Respiratory 22 16 Rate Blood Pressure 121/88 106/66 O2 Sat by Pulse 99 100 Oximetry Medical Decision Making - Medical Decision Making Presents initially tachycardic however this did improve to 116. I did review patient's previous visits and she is commonly tachycardic at baseline. HPI and physical exam as documented. No sign of infection. No headaches. CBC and CMP is unremarkable today. UA does show blood in the urine however patient reports she is currently menstruating. The abdomen and pelvis was obtained which did show a drainage catheter in the subcu tissue over the left lower quadrant with no catheters seen in the peritoneal cavity. I did call Curtis Butler. The ER physician reports he saw the patient yesterday for the same complaint. He had spoken with patient's neurosurgeon Dr. Waldron and he had scheduled an appointment for Friday at 10:45 AM and did not need to see her in the hospital prior to that. Patient reports that she can attend this appointment. Patient will be discharged home. She'll return here for any worsening symptoms. - Lab Data Result diagrams: 07/25/20 18:31 07/25/20 18:31 Lab Results 07/25/20 07/25/20 07/25/20 Range/Units 16:35 18:31 18:31 WBC 9.5 (3.8-10.6) k/uL RBC 4.86 (3.80-5.40) m/uL Hgb 13.9 (11.4-16.0) gm/dL Hct 42.1 (34.0-46.0) % MCV 86.6 (80.0-100.0) fL MCH 28.7 (25.0-35.0) pg MCHC 33.1 (31.0-37.0) g/dL RDW 14.7 (11.5-15.5) % Plt Count 323 (150-450) k/uL MPV 6.7 Neutrophils % 61 % Lymphocytes % 27 % Monocytes % 4 % Eosinophils % 6 % Basophils % 1 % Neutrophils # 5.8 (1.3-7.7) k/uL Lymphocytes # 2.6 (1.0-4.8) k/uL Monocytes # 0.4 (0-1.0) k/uL Eosinophils # 0.6 (0-0.7) k/uL Basophils # 0.1 (0-0.2) k/uL Sodium 139 (137-145) mmol/L Potassium 4.2 (3.5-5.1) mmol/L Chloride 106 (98-107) mmol/L Carbon Dioxide 25 (22-30) mmol/L Anion Gap 8 mmol/L BUN 16 (7-17) mg/dL Creatinine 0.73 (0.52-1.04) mg/dL Est GFR (CKD-EPI)AfAm >90 (>60 ml/min/1.73 sqM) Est GFR (CKD-EPI)NonAf >90 (>60 ml/min/1.73 sqM) Glucose 101 H (74-99) mg/dL Plasma Lactic Acid [place] (0.7-2.0) mmol/L Calcium 9.4 (8.4-10.2) mg/dL Total Bilirubin 0.5 (0.2-1.3) mg/dL AST 30 (14-36) U/L ALT 37 H (4-34) U/L Alkaline Phosphatase 144 H (38-126) U/L Total Protein 6.5 (6.3-8.2) g/dL Albumin 3.9 (3.5-5.0) g/dL Urine Color Light Red Urine Appearance Clear (Clear) Urine pH 5.5 (5.0-8.0) Ur Specific [place] 1.029 (1.001-1.035) Urine Protein Trace H (Negative) Urine Glucose (UA) Negative (Negative) Urine Ketones Negative (Negative) Urine Blood Large H (Negative) Urine Nitrite Negative (Negative) Urine Bilirubin Negative (Negative) Urine Urobilinogen <2.0 (<2.0) mg/dL Ur Leukocyte Esterase Trace H (Negative) Urine RBC >182 H (0-5) /hpf Urine WBC 21 H (0-5) /hpf Ur Squamous Epith Cells 1 (0-4) /hpf Urine Mucus Rare H (None) /hpf 07/25/20 Range/Units 18:31 WBC (3.8-10.6) k/uL RBC (3.80-5.40) m/uL Hgb (11.4-16.0) gm/dL Hct (34.0-46.0) % MCV (80.0-100.0) fL MCH (25.0-35.0) pg MCHC (31.0-37.0) g/dL RDW (11.5-15.5) % Plt Count (150-450) k/uL MPV Neutrophils % % Lymphocytes % % Monocytes % % Eosinophils % % Basophils % % Neutrophils # (1.3-7.7) k/uL Lymphocytes # (1.0-4.8) k/uL Monocytes # (0-1.0) k/uL Eosinophils # (0-0.7) k/uL Basophils # (0-0.2) k/uL Sodium (137-145) mmol/L Potassium (3.5-5.1) mmol/L Chloride (98-107) mmol/L Carbon Dioxide (22-30) mmol/L Anion Gap mmol/L BUN (7-17) mg/dL Creatinine (0.52-1.04) mg/dL Est GFR (CKD-EPI)AfAm (>60 ml/min/1.73 sqM) Est GFR (CKD-EPI)NonAf (>60 ml/min/1.73 sqM) Glucose (74-99) mg/dL Plasma Lactic Acid [place] 1.4 (0.7-2.0) mmol/L Calcium (8.4-10.2) mg/dL Total Bilirubin (0.2-1.3) mg/dL AST (14-36) U/L ALT (4-34) U/L Alkaline Phosphatase (38-126) U/L Total Protein (6.3-8.2) g/dL Albumin (3.5-5.0) g/dL Urine Color Urine Appearance (Clear) Urine pH (5.0-8.0) Ur Specific [place] (1.001-1.035) Urine Protein (Negative) Urine Glucose (UA) (Negative) Urine Ketones (Negative) Urine Blood (Negative) Urine Nitrite (Negative) Urine Bilirubin (Negative) Urine Urobilinogen (<2.0) mg/dL Ur Leukocyte Esterase (Negative) Urine RBC (0-5) /hpf Urine WBC (0-5) /hpf Ur Squamous Epith Cells (0-4) /hpf Urine Mucus (None) /hpf Disposition Clinical Impression: Shunt malfunction Disposition: HOME SELF-CARE Condition: Good Instructions (If sedation given, give patient instructions): Acute Abdominal Pain (ED) Additional Instructions: Please follow-up with your neurosurgeon tomorrow morning at your appointment. If you have worsening symptoms return to the emergency room. Is patient prescribed a controlled substance at d/c from ED?: No Referrals: Olvin Keenan MD [Primary Care Provider] - 1-2 days Time of Disposition: 21:50
[2020-07-25] MEDS ORDERED: HYDROmorphone 0.5 MG/0.5 ML SYRINGE IVP STA (18:31)
[2020-07-25] MEDS ORDERED: SODIUM CHLORIDE 0.9% 1,000 ML IV STA (18:31)
[2020-07-25 18:49] LABS: Basophils # (A) 0.1 k/uL (0-0.2); Basophils % (A) 1 %; Eosinophils # (A) 0.6 k/uL (0-0.7); Eosinophils % (A) 6 %; HCT 42.1 % (34.0-46.0); HGB 13.9 gm/dL (11.4-16.0); Lymphocytes # (A) 2.6 k/uL (1.0-4.8); Lymphocytes % (A) 27 %; MCH 28.7 pg (25.0-35.0); MCHC 33.1 g/dL (31.0-37.0); MCV 86.6 fL (80.0-100.0); Mean Platelet Volume 6.7; Monocytes # (A) 0.4 k/uL (0-1.0); Monocytes % (A) 4 %; Neutrophils # (A) 5.8 k/uL (1.3-7.7); Neutrophils % (A) 61 %; Platelet Count 323 k/uL (150-450); RBC 4.86 m/uL (3.80-5.40); RDW 14.7 % (11.5-15.5); WBC 9.5 k/uL (3.8-10.6)
[2020-07-25 18:55] LABS: Appearance,Urine Clear (Clear); Bilirubin,Urine Negative (Negative); Blood,Urine Large (Negative); Color,Urine Light Red; Glucose,Urine (UA) Negative (Negative); Ketones,Urine Negative (Negative); Leukocyte Esterase,Urine Trace (Negative); Mucus,Urine Rare /hpf; Nitrite,Urine Negative (Negative); PH, Urine 5.5 (5.0-8.0); Protein,Urine Trace (Negative); RBC,Urine >182 /hpf (0-5); Specific Gravity,Urine 1.029 (1.001-1.035); Squamous Epithelial Cell,Urine 1 /hpf (0-4); Urobilinogen,Urine <2.0 mg/dL (<2.0); WBC,Urine 21 /hpf (0-5)
[2020-07-25 19:04] LABS: ALT 37 U/L (4-34); AST 30 U/L (14-36); African American GFR (CKD) >90 (>60 ml/min/1.73 sqM); Albumin 3.9 g/dL (3.5-5.0); Alkaline Phosphatase 144 U/L (38-126); Anion Gap 8 mmol/L; Blood Urea Nitrogen 16 mg/dL (7-17); Calcium 9.4 mg/dL (8.4-10.2); Carbon Dioxide 25 mmol/L (22-30); Chloride 106 mmol/L (98-107); Glucose 101 mg/dL (74-99); Non-African American GFR(CKD) >90 (>60 ml/min/1.73 sqM); Potassium 4.2 mmol/L (3.5-5.1); Sodium 139 mmol/L (137-145); Total Bilirubin 0.5 mg/dL (0.2-1.3); Total Protein 6.5 g/dL (6.3-8.2)
--- NOTE | 2020-07-25 20:30 | CT ---
EXAMINATION TYPE: CT abdomen pelvis w con DATE OF EXAM: 07/25/2020 COMPARISON: 07/03/2020 HISTORY: Left lower quadrant pain, where lp drain is located CT DLP: 2426.6 mGycm Automated exposure control for dose reduction was used. CONTRAST: Performed with IV Contrast, patient injected with 100 mL of Isovue 300. Lung bases are clear of consolidation. There is no pleural effusion. Heart size is normal. There is n o pericardial effusion. There are clips from cholecystectomy. Liver spleen stomach pancreas appear normal. The bile ducts are not dilated. There is no adrenal mass. Kidneys show satisfactory contrast opacification. There is no hydronephrosi s. There is no retroperitoneal adenopathy. There is spinal drainage catheter in the lower thoracic sp ine. Catheter is subcutaneous extending to the left side of the anterior lower abdomen with the 12 cm fluid collection. This is in the subcutaneous fat. I see no catheter within the peritoneal cavity. There is no free fluid in the pelvis. There is no evidence of a pelvic mass. There is no inguinal her dain. Bladder distends smoothly. Uterus is anteverted. There are clips apparently from tubal ligation. There is no ascites or free air. There is no sign of a bowel obstruction. There is no mesenteric shakeel a. The lumbar vertebra have normal spacing and alignment. Posterior elements are intact. There is no compression fracture. Bony pelvis is intact. The hip joints are intact. IMPRESSION: There is drainage catheter in the subcutaneous tissues over the left lower quadrant with no catheter is seen in the peritoneal cavity that was evident on the previous CT scan. Catheter appears entirely outside of the peritoneal cavity. There is significant increased size of the subcutaneous fluid collection at the end of the catheter i n the left lower quadrant compared to old exam. No acute abnormality within the abdomen pelvis.
[2020-07-25 21:22] VITALS: BP 106/66; PULSE 116; RESP 16; TEMP 98.3
== END 2020-07-25 22:20 | disposition home or self-care (01) ==
LOC: EC 14:14
DX: T85.698A Other mechanical complication of other specified internal prosthetic devices, implants and grafts, initial encounter (principal); R31.9 Hematuria, unspecified; E11.9 Type 2 diabetes mellitus without complications; E78.5 Hyperlipidemia, unspecified; M79.7 Fibromyalgia; K21.9 Gastro-esophageal reflux disease without esophagitis; F43.10 Post-traumatic stress disorder, unspecified; F41.9 Anxiety disorder, unspecified; F32.9 Major depressive disorder, single episode, unspecified; F17.290 Nicotine dependence, other tobacco product, uncomplicated; Z79.84 Long term (current) use of oral hypoglycemic drugs; Z79.899 Other long term (current) drug therapy; Z79.3 Long term (current) use of hormonal contraceptives; Z79.82 Long term (current) use of aspirin
CPT/HCPCS: 36415; 80053; 83605; 85025; 81001; 87086; 74177; 99284; 96374; J1170; Q9967

== ENCOUNTER 2020-09-14 15:09 | Emergency (ER) | payer OTHER ==
[2020-09-14 15:32] VITALS: TEMP 98
[2020-09-14] MEDS ORDERED: SODIUM CHLORIDE 0.9% 1,000 ML IV STA (16:18)
[2020-09-14] MEDS ORDERED: METOCLOPRAMIDE 5 MG/ML 2 ML VIAL IVP STA (16:18)
[2020-09-14] MEDS ORDERED: diphenhydrAMINE 50 MG/ML 1 ML VIAL IVP STA (16:18)
[2020-09-14] MEDS ORDERED: MORPHINE SULFATE 4 MG/ML SYRINGE IVP STA (16:18)
--- NOTE | 2020-09-14 17:20 | ED ---
General Adult HPI - General Chief complaint: Headache Stated complaint: Migraine, blurred vision, stiff neck Time Seen by Provider: 09/14/20 16:03 Source: patient Mode of arrival: ambulatory Limitations: no limitations - History of Present Illness Initial comments: 30-year-old female with a past medical history of diabetes mellitus, hyperlipidemia, fibromyalgia, GERD, pseudotumor presents to the emergency room for a chief complaint of headache. Patient has a history of migraine headaches. States this feels exactly consistent with previous migraines. States she has light sensitivity and nausea. States it is mostly behind her eyes. Patient denies any sudden onset. States this started early in the morning. Patient denies any visual changes.Patient has no other complaints at this time including shortness of breath, chest pain, abdominal pain, or visual changes. - Related Data Home Medications Medication Instructions Recorded Confirmed Pravastatin Sodium [Pravachol] 20 mg PO HS 01/20/18 07/25/20 LORazepam [Ativan] 1 mg PO HS 11/24/18 07/25/20 buPROPion HCL [Wellbutrin XL] 300 mg PO DAILY 12/15/19 07/25/20 traZODone HCL 50 mg PO HS 12/15/19 07/25/20 ARIPiprazole 20 mg PO HS 01/09/20 07/25/20 ARIPiprazole [Abilify] 5 mg PO DAILY 01/09/20 07/25/20 Topiramate 50 mg PO HS 01/09/20 07/25/20 acetaZOLAMIDE [Diamox] 250 mg PO BID 01/09/20 07/25/20 busPIRone HCL 15 mg PO TID PRN 01/09/20 07/25/20 Amitriptyline HCl [Elavil] 75 mg PO BID 01/24/20 07/25/20 Verapamil HCl [Verapamil ER] 180 mg PO HS 01/24/20 07/25/20 Etonogestrel [Nexplanon] 68 mg IU ONCE 02/20/20 07/25/20 Gabapentin 600 mg PO TID 02/20/20 07/25/20 OXcarbazepine [Oxtellar Xr] 150 mg PO HS 02/27/20 07/25/20 hydroCHLOROthiazide 25 mg PO DAILY 03/15/20 07/25/20 Omeprazole 40 mg PO BID 06/17/20 07/25/20 Acetaminophen-Codeine 300-30mg 1 - 2 tab PO Q6H PRN 07/25/20 07/25/20 [Tylenol w/codeine #3] Aspirin EC [Ecotrin Low Dose] 81 mg PO DAILY 07/25/20 07/25/20 HYDROcodone/APAP 10-325MG [[place] 1 tab PO TID PRN 07/25/20 07/25/20 10-325] Ondansetron [Zofran] 4 mg PO Q6H PRN 07/25/20 07/25/20 metFORMIN HCL 500 mg PO DAILY 07/25/20 07/25/20 Allergies Allergy/AdvReac Type Severity Reaction Status Date / Time NSAIDS (Non-Steroidal AdvReac Pt. states Verified 09/14/20 15:28 Anti-Inflamma NSAIDS have given her a GI bleed in the past. Review of Systems ROS Statement: Those systems with pertinent positive or pertinent negative responses have been documented in the HPI. ROS Other: All systems not noted in ROS Statement are negative. Past Medical History Past Medical History: Diabetes Mellitus, Fibromyalgia, GERD/Reflux, GI Bleed, Hyperlipidemia Additional Past Medical History / Comment(s): gallstones, kidney stones, IBS, migraines, tachycardia, Martine- Guevara tear, blood clot, pesudo tumor cerebrea History of Any Multi-Drug Resistant Organisms: None Reported Past Surgical History: Section, Cholecystectomy, Tubal Ligation Additional Past Surgical History / Comment(s): neck biopsy (lymph node ) d&c; LP shunt May 13 2019 feb 0211/2019 -revision, stent/ lithotripsy on left, cystoscopy, shunt revises july 28. Past Anesthesia/Blood Transfusion Reactions: No Reported Reaction Past Psychological History: Anxiety, Bipolar, Depression, PTSD Smoking Status: Never smoker, Vaper Past Alcohol Use History: Rare Past Drug Use History: Marijuana - Past Family History Mother Family Medical History: Diabetes Mellitus, Hyperlipidemia, Hypertension, Myocardial Infarction ([place]) Additional Family Medical History / Comment(s): [place] X 3 Father Family Medical History: Congestive Heart Failure (CHF), Hyperlipidemia, Hypertension, Myocardial Infarction ([place]) Additional Family Medical History / Comment(s): [place] x 3 Son(s) Family Medical History: No Reported History General Exam Limitations: no limitations General appearance: alert, in no apparent distress Head exam: Present: atraumatic, normocephalic, normal inspection Eye exam: Present: normal appearance, PERRL, EOMI. Absent: scleral icterus, conjunctival injection, periorbital swelling ENT exam: Present: normal exam, mucous membranes moist Neck exam: Present: normal inspection, full ROM. Absent: tenderness, meningismus, lymphadenopathy Respiratory exam: Present: normal lung sounds bilaterally. Absent: respiratory distress, wheezes, rales, rhonchi, stridor Cardiovascular Exam: Present: regular rate, normal rhythm, normal heart sounds. Absent: systolic murmur, diastolic murmur, rubs, gallop, clicks GI/Abdominal exam: Present: soft, normal bowel sounds. Absent: distended, tenderness, guarding, rebound, rigid Neurological exam: Present: alert, oriented X3, normal gait, other (GCS 15) Course Vital Signs 09/14/20 15:28 Temperature 98.0 F Pulse Rate 94 Respiratory 18 Rate Blood Pressure 126/84 O2 Sat by Pulse 99 Oximetry Medical Decision Making - Medical Decision Making Patient does have a history of migraines and states this is exactly consistent. She was given pain medication and does feel much better. Patient will follow- up with her doctor. She'll return here for any worsening symptoms. Disposition Clinical Impression: Migraine headache Disposition: HOME SELF-CARE Condition: Good Instructions (If sedation given, give patient instructions): Acute Headache (ED) Additional Instructions: Please see to take her home pain medications. Please follow-up with your doctor. Return for any worsening symptoms. Is patient prescribed a controlled substance at d/c from ED?: No Referrals: Olvin Keenan MD [Primary Care Provider] - 1-2 days Time of Disposition: 17:19
[2020-09-14 18:05] VITALS: BP 114/62; PULSE 95; RESP 16
== END 2020-09-14 18:06 | disposition home or self-care (01) ==
LOC: EC 15:09
DX: G43.909 Migraine, unspecified, not intractable, without status migrainosus (principal); M43.6 Torticollis; E11.9 Type 2 diabetes mellitus without complications; E78.5 Hyperlipidemia, unspecified; K21.9 Gastro-esophageal reflux disease without esophagitis; M79.7 Fibromyalgia; F41.9 Anxiety disorder, unspecified; F32.9 Major depressive disorder, single episode, unspecified; F17.290 Nicotine dependence, other tobacco product, uncomplicated; F12.90 Cannabis use, unspecified, uncomplicated; Z87.442 Personal history of urinary calculi; Z79.82 Long term (current) use of aspirin; Z79.84 Long term (current) use of oral hypoglycemic drugs
CPT/HCPCS: 99283; 96374; 96375 ×2; J2270; J1200; J2765

== ENCOUNTER 2020-09-26 11:22 | Emergency (ER) | payer OTHER ==
[2020-09-26 12:09] VITALS: TEMP 98.1
[2020-09-26] MEDS ORDERED: SODIUM CHLORIDE 0.9% 1,000 ML IV STA (14:03)
[2020-09-26] MEDS ORDERED: diphenhydrAMINE 50 MG/ML 1 ML VIAL IVP STA (14:03)
[2020-09-26] MEDS ORDERED: MORPHINE SULFATE 4 MG/ML SYRINGE IVP STA (14:03)
[2020-09-26] MEDS ORDERED: METOCLOPRAMIDE 5 MG/ML 2 ML VIAL IVP STA (14:03)
--- NOTE | 2020-09-26 14:45 | ED ---
General Adult HPI - General Chief complaint: Headache Stated complaint: migraine, blurry vision Time Seen by Provider: 09/26/20 13:46 Source: patient Mode of arrival: ambulatory Limitations: no limitations - History of Present Illness Initial comments: 80-year-old female well-known to this emergency room with a past medical history of diabetes mellitus, migraines, fibromyalgia, GERD, hyperlipidemia, pseudotumor presents to the emergency room for headache. Patient reports that this came on gradually throughout the morning. Patient reports this feels like her normal migraine. States it starts behind her eyes. She did take her home migraine medication however it has not seemed to help. States she is sensitive to light. Patient has no other complaints at this time including shortness of breath, chest pain, abdominal pain, nausea or vomiting, or visual changes. - Related Data Home Medications Medication Instructions Recorded Confirmed Pravastatin Sodium [Pravachol] 20 mg PO HS 01/20/18 07/25/20 LORazepam [Ativan] 1 mg PO HS 11/24/18 07/25/20 buPROPion HCL [Wellbutrin XL] 300 mg PO DAILY 12/15/19 07/25/20 traZODone HCL 50 mg PO HS 12/15/19 07/25/20 ARIPiprazole 20 mg PO HS 01/09/20 07/25/20 ARIPiprazole [Abilify] 5 mg PO DAILY 01/09/20 07/25/20 Topiramate 50 mg PO HS 01/09/20 07/25/20 acetaZOLAMIDE [Diamox] 250 mg PO BID 01/09/20 07/25/20 busPIRone HCL 15 mg PO TID PRN 01/09/20 07/25/20 Amitriptyline HCl [Elavil] 75 mg PO BID 01/24/20 07/25/20 Verapamil HCl [Verapamil ER] 180 mg PO HS 01/24/20 07/25/20 Etonogestrel [Nexplanon] 68 mg IU ONCE 02/20/20 07/25/20 Gabapentin 600 mg PO TID 02/20/20 07/25/20 OXcarbazepine [Oxtellar Xr] 150 mg PO HS 02/27/20 07/25/20 hydroCHLOROthiazide 25 mg PO DAILY 03/15/20 07/25/20 Omeprazole 40 mg PO BID 06/17/20 07/25/20 Acetaminophen-Codeine 300-30mg 1 - 2 tab PO Q6H PRN 07/25/20 07/25/20 [Tylenol w/codeine #3] Aspirin EC [Ecotrin Low Dose] 81 mg PO DAILY 07/25/20 07/25/20 HYDROcodone/APAP 10-325MG [[place] 1 tab PO TID PRN 07/25/20 07/25/20 10-325] Ondansetron [Zofran] 4 mg PO Q6H PRN 07/25/20 07/25/20 metFORMIN HCL 500 mg PO DAILY 07/25/20 07/25/20 Allergies Allergy/AdvReac Type Severity Reaction Status Date / Time NSAIDS (Non-Steroidal AdvReac Pt. states Verified 09/26/20 12:07 Anti-Inflamma NSAIDS have given her a GI bleed in the past. Review of Systems ROS Statement: Those systems with pertinent positive or pertinent negative responses have been documented in the HPI. ROS Other: All systems not noted in ROS Statement are negative. Past Medical History Past Medical History: Diabetes Mellitus, Fibromyalgia, GERD/Reflux, GI Bleed, Hyperlipidemia Additional Past Medical History / Comment(s): gallstones, kidney stones, IBS, migraines, tachycardia, Martine- Guevara tear, blood clot, pesudo tumor cerebrea History of Any Multi-Drug Resistant Organisms: None Reported Past Surgical History: Section, Cholecystectomy, Tubal Ligation Additional Past Surgical History / Comment(s): neck biopsy (lymph node ) d&c; LP shunt May 13 2019 feb 0211/2019 -revision, stent/ lithotripsy on left, cystoscopy, shunt revises july 28. Past Anesthesia/Blood Transfusion Reactions: No Reported Reaction Past Psychological History: Anxiety, Bipolar, Depression, PTSD Smoking Status: Never smoker, Vaper Past Alcohol Use History: Rare Past Drug Use History: Marijuana - Past Family History Mother Family Medical History: Diabetes Mellitus, Hyperlipidemia, Hypertension, Myocardial Infarction ([place]) Additional Family Medical History / Comment(s): [place] X 3 Father Family Medical History: Congestive Heart Failure (CHF), Hyperlipidemia, Hypertension, Myocardial Infarction ([place]) Additional Family Medical History / Comment(s): mi x 3 Son(s) Family Medical History: No Reported History General Exam Limitations: no limitations General appearance: alert, in no apparent distress Head exam: Present: atraumatic, normocephalic, normal inspection Eye exam: Present: normal appearance, PERRL, EOMI. Absent: scleral icterus, conjunctival injection, periorbital swelling ENT exam: Present: normal exam, mucous membranes moist Neck exam: Present: normal inspection. Absent: tenderness, meningismus, lymphadenopathy Respiratory exam: Present: normal lung sounds bilaterally. Absent: respiratory distress, wheezes, rales, rhonchi, stridor Cardiovascular Exam: Present: regular rate, normal rhythm, normal heart sounds Neurological exam: Present: alert, oriented X3 Course Vital Signs 09/26/20 12:07 Temperature 98.1 F Pulse Rate 102 H Respiratory 16 Rate Blood Pressure 120/74 O2 Sat by Pulse 98 Oximetry Medical Decision Making - Medical Decision Making Vitals are stable. No focal neurologic deficits. Patient symptoms are consistent with previous migraines that she has had several times before. Patient does not have any red flag symptoms. Symptoms started gradually. No worse pain at onset. She was given pain medication and fluids. Significant improvement in symptoms. Is actually resting comfortably and dozing off. Patient will follow-up with her doctor. She will return for any worsening symptoms. Disposition Clinical Impression: Headache Disposition: HOME SELF-CARE Condition: Good Instructions (If sedation given, give patient instructions): Acute Headache (ED) Additional Instructions: Please follow-up with your doctor in one to 2 days. Return to the emergency room for any worsening symptoms. Is patient prescribed a controlled substance at d/c from ED?: No Referrals: Olvin Keenan MD [Primary Care Provider] - 1-2 days Time of Disposition: 14:50
[2020-09-26 16:00] VITALS: BP 122/82; PULSE 84; RESP 18
== END 2020-09-26 15:16 | disposition home or self-care (01) ==
LOC: EC 11:22
DX: R51.9 Headache, unspecified (principal); F32.9 Major depressive disorder, single episode, unspecified; F12.90 Cannabis use, unspecified, uncomplicated; E11.9 Type 2 diabetes mellitus without complications; E78.5 Hyperlipidemia, unspecified; I11.0 Hypertensive heart disease with heart failure; I50.9 Heart failure, unspecified; F43.10 Post-traumatic stress disorder, unspecified; I25.2 Old myocardial infarction; Z90.49 Acquired absence of other specified parts of digestive tract; Z98.51 Tubal ligation status; Z87.442 Personal history of urinary calculi; Z79.82 Long term (current) use of aspirin; Z79.84 Long term (current) use of oral hypoglycemic drugs
CPT/HCPCS: 96374; 96375; 99284

== ENCOUNTER 2020-09-28 07:44 | Emergency (ER) | payer OTHER ==
[2020-09-28 08:01] VITALS: BP 115/72; PULSE 90; RESP 18; TEMP 98.1
[2020-09-28] MEDS ORDERED: ACETAMINOPHEN TAB 500 MG TAB PO STA (08:24)
[2020-09-28] MEDS ORDERED: CYCLOBENZAPRINE 5 MG TAB PO STA (08:24)
--- NOTE | 2020-09-28 08:28 | ED ---
Neck Injury/Pain HPI - General Chief Complaint: Neck Pain/Injury Stated Complaint: neck & shoulder pain Time Seen by Provider: 09/28/20 08:10 Source: patient, RN notes reviewed Mode of arrival: ambulatory Limitations: no limitations - History of Present Illness Initial Comments: Patient is a 30-year-old female that presents to the emergency room complaining of left-sided neck and shoulder tightness. Patient is a frequent flier to the emergency room coming in with several different complaints. She notes she was seen on September 26 for migraine headache with left neck and shoulder pain. She notes that her headache has subsided but still has some muscle tension in her left-sided neck and shoulder. She notes that she does have some minimal numbness and tingling in her left upper extremity. She did note that range of motion is full but difficult secondary to pain. She was in no apparent distress or pain while sitting up in bed during the exam interview. She denied any chest pain shortness of breath headache nausea vomiting diarrhea constipation fever fatigue chills. - Related Data Home Medications Medication Instructions Recorded Confirmed Pravastatin Sodium [Pravachol] 20 mg PO HS 01/20/18 07/25/20 LORazepam [Ativan] 1 mg PO HS 11/24/18 07/25/20 buPROPion HCL [Wellbutrin XL] 300 mg PO DAILY 12/15/19 07/25/20 traZODone HCL 50 mg PO HS 12/15/19 07/25/20 ARIPiprazole 20 mg PO HS 01/09/20 07/25/20 ARIPiprazole [Abilify] 5 mg PO DAILY 01/09/20 07/25/20 Topiramate 50 mg PO HS 01/09/20 07/25/20 acetaZOLAMIDE [Diamox] 250 mg PO BID 01/09/20 07/25/20 busPIRone HCL 15 mg PO TID PRN 01/09/20 07/25/20 Amitriptyline HCl [Elavil] 75 mg PO BID 01/24/20 07/25/20 Verapamil HCl [Verapamil ER] 180 mg PO HS 01/24/20 07/25/20 Etonogestrel [Nexplanon] 68 mg IU ONCE 02/20/20 07/25/20 Gabapentin 600 mg PO TID 02/20/20 07/25/20 OXcarbazepine [Oxtellar Xr] 150 mg PO HS 02/27/20 07/25/20 hydroCHLOROthiazide 25 mg PO DAILY 03/15/20 07/25/20 Omeprazole 40 mg PO BID 06/17/20 07/25/20 Acetaminophen-Codeine 300-30mg 1 - 2 tab PO Q6H PRN 07/25/20 07/25/20 [Tylenol w/codeine #3] Aspirin EC [Ecotrin Low Dose] 81 mg PO DAILY 07/25/20 07/25/20 HYDROcodone/APAP 10-325MG [[place] 1 tab PO TID PRN 07/25/20 07/25/20 10-325] Ondansetron [Zofran] 4 mg PO Q6H PRN 07/25/20 07/25/20 metFORMIN HCL 500 mg PO DAILY 07/25/20 07/25/20 Allergies Allergy/AdvReac Type Severity Reaction Status Date / Time NSAIDS (Non-Steroidal AdvReac Pt. states Verified 09/28/20 08:01 Anti-Inflamma NSAIDS have given her a GI bleed in the past. Review of Systems ROS Statement: Those systems with pertinent positive or pertinent negative responses have been documented in the HPI. ROS Other: All systems not noted in ROS Statement are negative. Past Medical History Past Medical History: Diabetes Mellitus, Fibromyalgia, GERD/Reflux, GI Bleed, Hyperlipidemia Additional Past Medical History / Comment(s): gallstones, kidney stones, IBS, migraines, tachycardia, Martine- Guevara tear, blood clot, pesudo tumor cerebrea History of Any Multi-Drug Resistant Organisms: None Reported Past Surgical History: Section, Cholecystectomy, Tubal Ligation Additional Past Surgical History / Comment(s): neck biopsy (lymph node ) d&c; LP shunt May 13 2019 feb 0211/2019 -revision, stent/ lithotripsy on left, cystoscopy, shunt revises july 28. Past Anesthesia/Blood Transfusion Reactions: No Reported Reaction Past Psychological History: Anxiety, Bipolar, Depression, PTSD Smoking Status: Never smoker, Vaper Past Alcohol Use History: Rare Past Drug Use History: Marijuana - Past Family History Mother Family Medical History: Diabetes Mellitus, Hyperlipidemia, Hypertension, Myocardial Infarction ([place]) Additional Family Medical History / Comment(s): [place] X 3 Father Family Medical History: Congestive Heart Failure (CHF), Hyperlipidemia, Hypertension, Myocardial Infarction ([place]) Additional Family Medical History / Comment(s): mi x 3 Son(s) Family Medical History: No Reported History General Exam Limitations: no limitations General appearance: alert, in no apparent distress Head exam: Present: atraumatic, normocephalic, normal inspection Eye exam: Present: normal appearance, PERRL, EOMI. Absent: scleral icterus, conjunctival injection, periorbital swelling Neck exam: Present: normal inspection, tenderness (Left-sided generalized), full ROM. Absent: meningismus, lymphadenopathy Respiratory exam: Present: normal lung sounds bilaterally. Absent: respiratory distress, wheezes, rales, rhonchi, stridor Cardiovascular Exam: Present: regular rate, normal rhythm, normal heart sounds. Absent: systolic murmur, diastolic murmur, rubs, gallop, clicks GI/Abdominal exam: Present: soft, normal bowel sounds. Absent: distended, tenderness, guarding, rebound, rigid Extremities exam: Present: normal inspection, full ROM, normal capillary refill. Absent: tenderness, pedal edema, joint swelling, calf tenderness Left General: Present: normal inspection. Absent: laceration, abrasion Shoulder Exam: Present: normal inspection, full ROM, tenderness (2 posterior deltoid and trapezius.). Absent: swelling, ecchymosis, deformity Neurological exam: Present: alert, oriented X3, CN II-XII intact Psychiatric exam: Present: normal affect, normal mood Skin exam: Present: warm, dry, intact, normal color. Absent: rash Course Vital Signs 09/28/20 07:56 Temperature 98.1 F Pulse Rate 90 Respiratory 18 Rate Blood Pressure 115/72 O2 Sat by Pulse 98 Oximetry Medical Decision Making - Medical Decision Making 30-year-old female complaining of left neck and shoulder tightness and pain. X-ray of the cervical spine, 1000 mg of Tylenol, 5 mg of Flexeril ordered. - Radiology Data Radiology results: report reviewed, image reviewed X-ray the cervical spine: Mild multilevel narrowing of the left neural 4 mg at C3-C4, C4 to C5, and C5 to C6. No loss of vertebral body height to suggest acute compression fracture. No spondylolisthesis. Disposition Clinical Impression: Cervical radiculopathy, Tightness of neck Disposition: HOME SELF-CARE Condition: Stable Instructions (If sedation given, give patient instructions): Cervical Strain (ED) Additional Instructions: Please return to the Emergency Department if symptoms worsen or any other concerns. Follow-up with primary care in the next 3-5 days. Continue take at home medications as prescribed. Is patient prescribed a controlled substance at d/c from ED?: No Referrals: Olvin Keenan MD [Primary Care Provider] - 1-2 days Time of Disposition: 09:33
--- NOTE | 2020-09-28 09:27 | XR ---
EXAMINATION TYPE: XR cervical spine comp DATE OF EXAM: 09/28/2020 TECHNIQUE: Frontal, lateral, oblique, swimmers, and open mouth view of the cervical spine are obtaine d. HISTORY: Migraine since yesterday, pain radiating down the neck. COMPARISON: 10/19/2017 FINDINGS: C7-T1 is visualized. No loss of vertebral body height or intervertebral disc space. No spon dylolisthesis. Facets are in alignment. Prevertebral soft tissues are unremarkable. Dens is intact. A tlantoaxial and atlantooccipital articulations are intact. There is mild narrowing of left neural for mj at C3-4, C4-5 and C5-6. The right neural foramina appear relatively patent. IMPRESSION: 1. Mild multilevel narrowing of the left neural foramina at C3-4, C4-5 and C5-6. 2. No loss of vertebral body height to suggest acute compression fracture. No spondylolisthesis.
== END 2020-09-28 09:49 | disposition home or self-care (01) ==
LOC: EC 07:44
DX: M54.12 Radiculopathy, cervical region (principal); M25.512 Pain in left shoulder; E11.9 Type 2 diabetes mellitus without complications; K21.9 Gastro-esophageal reflux disease without esophagitis; E78.5 Hyperlipidemia, unspecified; M79.7 Fibromyalgia; F41.9 Anxiety disorder, unspecified; F31.9 Bipolar disorder, unspecified; F12.90 Cannabis use, unspecified, uncomplicated; Z79.82 Long term (current) use of aspirin; Z79.84 Long term (current) use of oral hypoglycemic drugs; G43.909 Migraine, unspecified, not intractable, without status migrainosus
CPT/HCPCS: 72050; 99283

== ENCOUNTER 2020-10-19 09:41 | Emergency (ER) | payer OTHER ==
[2020-10-19 09:50] VITALS: RESP 18; TEMP 98
[2020-10-19] MEDS ORDERED: SODIUM CHLORIDE 0.9% 500 ML 500 ML IV ONE (10:18)
[2020-10-19] MEDS ORDERED: diphenhydrAMINE 50 MG/ML 1 ML VIAL IVP STA (10:18)
--- NOTE | 2020-10-19 11:05 | ED ---
Headache HPI - General Chief Complaint: Headache Stated Complaint: Migraine, blurred vision, nausea Time Seen by Provider: 10/19/20 10:01 Source: patient, RN notes reviewed Mode of arrival: ambulatory Limitations: no limitations - History of Present Illness Initial Comments: This a 30-year-old female presents emergency Department chief complaint of a he adache. She has chronic headaches related to migraines. She does see neurology neurosurgeon. Patient states is not out of the usual headache. She states that she woke up with it. She states that her meds are not working and she states she has to frequently visit the ER for relief. Patient denies any focal deficits. States that she gets change in vision which is chronic. She does have some light sensitivity. Denies fevers chills neck pain or neck stiffness. - Related Data Home Medications Medication Instructions Recorded Confirmed Pravastatin Sodium [Pravachol] 20 mg PO HS 01/20/18 07/25/20 LORazepam [Ativan] 1 mg PO HS 11/24/18 07/25/20 buPROPion HCL [Wellbutrin XL] 300 mg PO DAILY 12/15/19 07/25/20 traZODone HCL 50 mg PO HS 12/15/19 07/25/20 ARIPiprazole 20 mg PO HS 01/09/20 07/25/20 ARIPiprazole [Abilify] 5 mg PO DAILY 01/09/20 07/25/20 Topiramate 50 mg PO HS 01/09/20 07/25/20 acetaZOLAMIDE [Diamox] 250 mg PO BID 01/09/20 07/25/20 busPIRone HCL 15 mg PO TID PRN 01/09/20 07/25/20 Amitriptyline HCl [Elavil] 75 mg PO BID 01/24/20 07/25/20 Verapamil HCl [Verapamil ER] 180 mg PO HS 01/24/20 07/25/20 Etonogestrel [Nexplanon] 68 mg IU ONCE 02/20/20 07/25/20 Gabapentin 600 mg PO TID 02/20/20 07/25/20 OXcarbazepine [Oxtellar Xr] 150 mg PO HS 02/27/20 07/25/20 hydroCHLOROthiazide 25 mg PO DAILY 03/15/20 07/25/20 Omeprazole 40 mg PO BID 06/17/20 07/25/20 Acetaminophen-Codeine 300-30mg 1 - 2 tab PO Q6H PRN 07/25/20 07/25/20 [Tylenol w/codeine #3] Aspirin EC [Ecotrin Low Dose] 81 mg PO DAILY 07/25/20 07/25/20 HYDROcodone/APAP 10-325MG [[place] 1 tab PO TID PRN 07/25/20 07/25/20 10-325] Ondansetron [Zofran] 4 mg PO Q6H PRN 07/25/20 07/25/20 metFORMIN HCL 500 mg PO DAILY 07/25/20 07/25/20 Allergies Allergy/AdvReac Type Severity Reaction Status Date / Time NSAIDS (Non-Steroidal AdvReac Pt. states Verified 10/19/20 09:48 Anti-Inflamma NSAIDS have given her a GI bleed in the past. Review of Systems ROS Statement: Those systems with pertinent positive or pertinent negative responses have been documented in the HPI. ROS Other: All systems not noted in ROS Statement are negative. Past Medical History Past Medical History: Diabetes Mellitus, Fibromyalgia, GERD/Reflux, GI Bleed, Hyperlipidemia Additional Past Medical History / Comment(s): gallstones, kidney stones, IBS, migraines, tachycardia, Martine- Guevara tear, blood clot, pesudo tumor cerebrea History of Any Multi-Drug Resistant Organisms: None Reported Past Surgical History: Section, Cholecystectomy, Tubal Ligation Additional Past Surgical History / Comment(s): neck biopsy (lymph node ) d&c; LP shunt May 13 2019 feb 0211/2019 -revision, stent/ lithotripsy on left, cystoscopy, shunt revises july 28. Past Anesthesia/Blood Transfusion Reactions: No Reported Reaction Past Psychological History: Anxiety, Bipolar, Depression, PTSD Smoking Status: Vaper Past Alcohol Use History: Rare Past Drug Use History: Marijuana - Past Family History Mother Family Medical History: Diabetes Mellitus, Hyperlipidemia, Hypertension, Myocardial Infarction ([place]) Additional Family Medical History / Comment(s): [place] X 3 Father Family Medical History: Congestive Heart Failure (CHF), Hyperlipidemia, Hypertension, Myocardial Infarction ([place]) Additional Family Medical History / Comment(s): [place] x 3 Son(s) Family Medical History: No Reported History General Exam Limitations: no limitations General appearance: alert, in no apparent distress Head exam: Present: atraumatic, normocephalic, normal inspection Eye exam: Present: normal appearance, PERRL, EOMI. Absent: scleral icterus, conjunctival injection, periorbital swelling ENT exam: Present: normal exam, normal oropharynx, mucous membranes moist Neck exam: Present: normal inspection, full ROM. Absent: tenderness, meningismus, lymphadenopathy Respiratory exam: Present: normal lung sounds bilaterally. Absent: respiratory distress, wheezes, rales, rhonchi, stridor Cardiovascular Exam: Present: regular rate, normal rhythm, normal heart sounds. Absent: systolic murmur, diastolic murmur, rubs, gallop, clicks Extremities exam: Present: normal inspection, full ROM, other Neurological exam: Present: alert, oriented X3, CN II-XII intact, reflexes normal. Absent: motor sensory deficit Skin exam: Present: warm, dry, intact, normal color. Absent: rash Course Vital Signs 10/19/20 09:48 Temperature 98 F Pulse Rate 90 Respiratory 18 Rate Blood Pressure 127/79 O2 Sat by Pulse 99 Oximetry Medical Decision Making - Medical Decision Making Patient has chronic migraines. Patient was given medication which improved her symptoms she was neurologically intact will be discharged in stable condition. Disposition Clinical Impression: Headache Disposition: HOME SELF-CARE Condition: Stable Instructions (If sedation given, give patient instructions): Acute Headache (ED) Additional Instructions: Please return to the Emergency Department if symptoms worsen or any other concerns. Is patient prescribed a controlled substance at d/c from ED?: No Referrals: Olvin Keenan MD [Primary Care Provider] - 1-2 days Time of Disposition: 11:48
[2020-10-19] MEDS ORDERED: KETOROLAC 15 MG/ML 1 ML VIAL IVP STA (11:47)
[2020-10-19] MEDS ORDERED: ACETAMINOPHEN TAB 325 MG TAB PO STA (11:47)
[2020-10-19] MEDS ORDERED: ONDANSETRON 4 MG/2 ML VIAL IVP STA (12:09)
[2020-10-19 12:18] VITALS: BP 132/79; PULSE 80
== END 2020-10-19 12:17 | disposition home or self-care (01) ==
LOC: EC 09:41
DX: R51.9 Headache, unspecified (principal); E11.9 Type 2 diabetes mellitus without complications; K21.9 Gastro-esophageal reflux disease without esophagitis; E78.5 Hyperlipidemia, unspecified; M79.7 Fibromyalgia; F41.9 Anxiety disorder, unspecified; F31.9 Bipolar disorder, unspecified; F43.10 Post-traumatic stress disorder, unspecified; F12.90 Cannabis use, unspecified, uncomplicated; F17.290 Nicotine dependence, other tobacco product, uncomplicated; Z72.89 Other problems related to lifestyle; Z83.3 Family history of diabetes mellitus; Z82.49 Family history of ischemic heart disease and other diseases of the circulatory system; Z83.42 Family history of familial hypercholesterolemia; Z87.39 Personal history of other diseases of the musculoskeletal system and connective tissue; Z79.84 Long term (current) use of oral hypoglycemic drugs; Z88.6 Allergy status to analgesic agent; Z79.82 Long term (current) use of aspirin
CPT/HCPCS: 99283 ×2; 96374 ×2; 96375 ×3; 96361 ×2; J1200; J2405; J1790

== ENCOUNTER 2020-12-26 05:31 | Emergency (ER) | payer OTHER ==
[2020-12-26 05:36] VITALS: BP 125/73; PULSE 107; RESP 24; TEMP 98.4
[2020-12-26] MEDS ORDERED: SODIUM CHLORIDE 0.9% 1,000 ML IV STA (06:16)
[2020-12-26] MEDS ORDERED: MORPHINE SULFATE 4 MG/ML SYRINGE IV STA (06:16)
--- NOTE | 2020-12-26 06:19 | ED ---
General Adult HPI - General Chief complaint: Abdominal Pain Stated complaint: L Flank Pain Time Seen by Provider: 12/26/20 06:04 Source: patient Mode of arrival: ambulatory Limitations: no limitations - History of Present Illness Initial comments: 30-year-old female with past medical history diabetes, fibromyalgia, GERD, hyperlipidemia, LP shunt presents to the emergency department for left lower quadrant pain. Patient states this started about one hour prior to arrival. Patient states the pain as a sharp pain in nature. States that sometimes the pain worsens and she takes a deep breath. Denies any alleviating factors however has not tried any pain medication at home. Patient is concerned because she has an LP shunt in the area with a revision in July. She would like to make sure this is not involved. Patient denies fevers or chills. She denies nausea vomiting but does admit to diarrhea.Patient has no other complaints at this time including shortness of breath, chest pain, abdominal pain, nausea or vomiting, headache, or visual changes. - Related Data Home Medications Medication Instructions Recorded Confirmed Pravastatin Sodium [Pravachol] 20 mg PO HS 01/20/18 07/25/20 LORazepam [Ativan] 1 mg PO HS 11/24/18 07/25/20 buPROPion HCL [Wellbutrin XL] 300 mg PO DAILY 12/15/19 07/25/20 traZODone HCL 50 mg PO HS 12/15/19 07/25/20 ARIPiprazole 20 mg PO HS 01/09/20 07/25/20 ARIPiprazole [Abilify] 5 mg PO DAILY 01/09/20 07/25/20 Topiramate 50 mg PO HS 01/09/20 07/25/20 busPIRone HCL 15 mg PO TID PRN 01/09/20 07/25/20 Amitriptyline HCl [Elavil] 75 mg PO BID 01/24/20 07/25/20 Verapamil HCl [Verapamil ER] 180 mg PO HS 01/24/20 07/25/20 Gabapentin 600 mg PO TID 02/20/20 07/25/20 OXcarbazepine [Oxtellar Xr] 150 mg PO HS 02/27/20 07/25/20 hydroCHLOROthiazide 25 mg PO DAILY 03/15/20 07/25/20 metFORMIN HCL 500 mg PO DAILY 07/25/20 07/25/20 SUMAtriptan succinate [Imitrex] 50 mg PO DAILY PRN 12/26/20 12/26/20 Allergies Allergy/AdvReac Type Severity Reaction Status Date / Time NSAIDS (Non-Steroidal AdvReac Pt. states Verified 12/26/20 09:07 Anti-Inflamma NSAIDS have given her a GI bleed in the past. Review of Systems ROS Statement: Those systems with pertinent positive or pertinent negative responses have been documented in the HPI. ROS Other: All systems not noted in ROS Statement are negative. Past Medical History Past Medical History: Diabetes Mellitus, Fibromyalgia, GERD/Reflux, GI Bleed, Hyperlipidemia Additional Past Medical History / Comment(s): gallstones, kidney stones, IBS, migraines, tachycardia, Martine- Guevara tear, blood clot, pesudo tumor cerebrea History of Any Multi-Drug Resistant Organisms: None Reported Past Surgical History: Section, Cholecystectomy, Tubal Ligation Additional Past Surgical History / Comment(s): neck biopsy (lymph node ) d&c; LP shunt May 13 2019 feb 0211/2019 -revision, stent/ lithotripsy on left, cystoscopy, shunt revises july 28. Past Anesthesia/Blood Transfusion Reactions: No Reported Reaction Past Psychological History: Anxiety, Bipolar, Depression, PTSD Smoking Status: Vaper Past Alcohol Use History: Rare Past Drug Use History: Marijuana - Past Family History Mother Family Medical History: Diabetes Mellitus, Hyperlipidemia, Hypertension, Myocardial Infarction ([place]) Additional Family Medical History / Comment(s): [place] X 3 Father Family Medical History: Congestive Heart Failure (CHF), Hyperlipidemia, Hypertension, Myocardial Infarction ([place]) Additional Family Medical History / Comment(s): [place] x 3 Son(s) Family Medical History: No Reported History General Exam Limitations: no limitations General appearance: alert, in no apparent distress Head exam: Present: atraumatic Eye exam: Present: normal appearance, PERRL, EOMI. Absent: scleral icterus, conjunctival injection ENT exam: Present: normal exam, mucous membranes moist Neck exam: Present: normal inspection, full ROM. Absent: tenderness Respiratory exam: Present: normal lung sounds bilaterally. Absent: respiratory distress, wheezes Cardiovascular Exam: Present: regular rate, normal rhythm, normal heart sounds GI/Abdominal exam: Present: soft, tenderness (Mild left lower quadrant abdominal tenderness no abdominal tenderness on the right or upper abdomen.), normal bowel sounds. Absent: distended, guarding, rebound, rigid Course Vital Signs 12/26/20 05:32 Temperature 98.4 F Pulse Rate 107 H Respiratory 24 Rate Blood Pressure 125/73 O2 Sat by Pulse 95 Oximetry Medical Decision Making - Medical Decision Making Vitals are stable. CBC CMP is unremarkable. Urinalysis unremarkable. CT abdomen and pelvis with contrast reveals stranding the left lower quadrant subcutaneous region adjacent to subcutaneous catheter. Correlate for cellulitis, no drainable collection. I did review previous CAT scan from June and this stranding is evident at that time. Appears chronic. Physical examination does not reveal any erythema or induration. No sign of cellulitis. Patient's pain is controlled. At this time patient can be discharged home to follow up with her doctor who took care of the shunt. She will return here for any worsening symptoms. - Lab Data Result diagrams: 12/26/20 06:19 12/26/20 06:19 Lab Results 12/26/20 12/26/20 12/26/20 Range/Units 06:19 06:19 06:19 WBC 10.6 (3.8-10.6) k/uL RBC 4.67 (3.80-5.40) m/uL Hgb 14.2 (11.4-16.0) gm/dL Hct 42.5 (34.0-46.0) % MCV 91.1 (80.0-100.0) fL MCH 30.4 (25.0-35.0) pg MCHC 33.4 (31.0-37.0) g/dL RDW 14.4 (11.5-15.5) % Plt Count 290 (150-450) k/uL MPV 7.1 Neutrophils % 69 % Lymphocytes % 22 % Monocytes % 3 % Eosinophils % 5 % Basophils % 0 % Neutrophils # 7.2 (1.3-7.7) k/uL Lymphocytes # 2.3 (1.0-4.8) k/uL Monocytes # 0.3 (0-1.0) k/uL Eosinophils # 0.5 (0-0.7) k/uL Basophils # 0.0 (0-0.2) k/uL Sodium (137-145) mmol/L Potassium (3.5-5.1) mmol/L Chloride (98-107) mmol/L Carbon Dioxide (22-30) mmol/L Anion Gap mmol/L BUN (7-17) mg/dL Creatinine (0.52-1.04) mg/dL Est GFR (CKD-EPI)AfAm (>60 ml/min/1.73 sqM) Est GFR (CKD-EPI)NonAf (>60 ml/min/1.73 sqM) Glucose (74-99) mg/dL Plasma Lactic Acid Darnell (0.7-2.0) mmol/L Calcium (8.4-10.2) mg/dL Total Bilirubin (0.2-1.3) mg/dL AST (14-36) U/L ALT (4-34) U/L Alkaline Phosphatase (38-126) U/L Total Protein (6.3-8.2) g/dL Albumin (3.5-5.0) g/dL Amylase (30-110) U/L Lipase (23-300) U/L Urine Color Yellow Urine Appearance Cloudy H (Clear) Urine pH 5.5 (5.0-8.0) Ur Specific [place] 1.029 (1.001-1.035) Urine Protein Negative (Negative) Urine Glucose (UA) Negative (Negative) Urine Ketones Negative (Negative) Urine Blood Negative (Negative) Urine Nitrite Negative (Negative) Urine Bilirubin Negative (Negative) Urine Urobilinogen <2.0 (<2.0) mg/dL Ur Leukocyte Esterase Negative (Negative) Urine RBC 2 (0-5) /hpf Urine WBC 7 H (0-5) /hpf Ur Squamous Epith Cells 5 H (0-4) /hpf Amorphous Sediment Occasional H (None) /hpf Urine Mucus Rare H (None) /hpf Urine HCG, Qual Not Detected (Not Detectd) 12/26/20 12/26/20 Range/Units 06:19 06:19 WBC (3.8-10.6) k/uL RBC (3.80-5.40) m/uL Hgb (11.4-16.0) gm/dL Hct (34.0-46.0) % MCV (80.0-100.0) fL MCH (25.0-35.0) pg MCHC (31.0-37.0) g/dL RDW (11.5-15.5) % Plt Count (150-450) k/uL MPV Neutrophils % % Lymphocytes % % Monocytes % % Eosinophils % % Basophils % % Neutrophils # (1.3-7.7) k/uL Lymphocytes # (1.0-4.8) k/uL Monocytes # (0-1.0) k/uL Eosinophils # (0-0.7) k/uL Basophils # (0-0.2) k/uL Sodium 136 L (137-145) mmol/L Potassium 4.0 (3.5-5.1) mmol/L Chloride 105 (98-107) mmol/L Carbon Dioxide 23 (22-30) mmol/L Anion Gap 8 mmol/L BUN 16 (7-17) mg/dL Creatinine 0.67 (0.52-1.04) mg/dL Est GFR (CKD-EPI)AfAm >90 (>60 ml/min/1.73 sqM) Est GFR (CKD-EPI)NonAf >90 (>60 ml/min/1.73 sqM) Glucose 143 H (74-99) mg/dL Plasma Lactic Acid [place]arn[place] 1.1 (0.7-2.0) mmol/L Calcium 9.1 (8.4-10.2) mg/dL Total Bilirubin 0.9 (0.2-1.3) mg/dL AST 57 H (14-36) U/L ALT 62 H (4-34) U/L Alkaline Phosphatase 125 (38-126) U/L Total Protein 6.4 (6.3-8.2) g/dL Albumin 3.8 (3.5-5.0) g/dL Amylase 37 (30-110) U/L Lipase 52 (23-300) U/L Urine Color Urine Appearance (Clear) Urine pH (5.0-8.0) Ur Specific [place] (1.001-1.035) Urine Protein (Negative) Urine Glucose (UA) (Negative) Urine Ketones (Negative) Urine Blood (Negative) Urine Nitrite (Negative) Urine Bilirubin (Negative) Urine Urobilinogen (<2.0) mg/dL Ur Leukocyte Esterase (Negative) Urine RBC (0-5) /hpf Urine WBC (0-5) /hpf Ur Squamous Epith Cells (0-4) /hpf Amorphous Sediment (None) /hpf Urine Mucus (None) /hpf Urine HCG, Qual (Not Detectd) Disposition Clinical Impression: Abdominal pain Disposition: HOME SELF-CARE Condition: Good Instructions (If sedation given, give patient instructions): Abdominal Pain (ED) Additional Instructions: Take Tylenol for pain. Follow-up with your doctor in one to 2 days. Return to the emergency room for any worsening symptoms Is patient prescribed a controlled substance at d/c from ED?: No Referrals: Olvin Keenan MD [Primary Care Provider] - 1-2 days Time of Disposition: 09:01
[2020-12-26 06:47] LABS: Basophils % (A) 0 %; Eosinophils # (A) 0.5 k/uL (0-0.7); Eosinophils % (A) 5 %; HCT 42.5 % (34.0-46.0); HGB 14.2 gm/dL (11.4-16.0); Lymphocytes # (A) 2.3 k/uL (1.0-4.8); Lymphocytes % (A) 22 %; MCH 30.4 pg (25.0-35.0); MCHC 33.4 g/dL (31.0-37.0); MCV 91.1 fL (80.0-100.0); Mean Platelet Volume 7.1; Monocytes # (A) 0.3 k/uL (0-1.0); Monocytes % (A) 3 %; Neutrophils # (A) 7.2 k/uL (1.3-7.7); Neutrophils % (A) 69 %; Platelet Count 290 k/uL (150-450); RBC 4.67 m/uL (3.80-5.40); RDW 14.4 % (11.5-15.5); WBC 10.6 k/uL (3.8-10.6)
[2020-12-26 06:57] LABS: ALT 62 U/L (4-34); AST 57 U/L (14-36); African American GFR (CKD) >90 (>60 ml/min/1.73 sqM); Albumin 3.8 g/dL (3.5-5.0); Alkaline Phosphatase 125 U/L (38-126); Amylase 37 U/L (30-110); Anion Gap 8 mmol/L; Blood Urea Nitrogen 16 mg/dL (7-17); Calcium 9.1 mg/dL (8.4-10.2); Carbon Dioxide 23 mmol/L (22-30); Chloride 105 mmol/L (98-107); Glucose 143 mg/dL (74-99); Lipase 52 U/L (23-300); Non-African American GFR(CKD) >90 (>60 ml/min/1.73 sqM); Sodium 136 mmol/L (137-145); Total Bilirubin 0.9 mg/dL (0.2-1.3); Total Protein 6.4 g/dL (6.3-8.2)
[2020-12-26 07:02] LABS: Amorphous Sediment,Urine Occasional /hpf; Appearance,Urine Cloudy (Clear); Bilirubin,Urine Negative (Negative); Blood,Urine Negative (Negative); Color,Urine Yellow; Glucose,Urine (UA) Negative (Negative); Ketones,Urine Negative (Negative); Leukocyte Esterase,Urine Negative (Negative); Mucus,Urine Rare /hpf; Nitrite,Urine Negative (Negative); PH, Urine 5.5 (5.0-8.0); Protein,Urine Negative (Negative); RBC,Urine 2 /hpf (0-5); Specific Gravity,Urine 1.029 (1.001-1.035); Squamous Epithelial Cell,Urine 5 /hpf (0-4); Urobilinogen,Urine <2.0 mg/dL (<2.0); WBC,Urine 7 /hpf (0-5)
--- NOTE | 2020-12-26 08:04 | CT ---
EXAMINATION TYPE: CT abdomen pelvis w con DATE OF EXAM: 12/26/2020 COMPARISON: 07/25/2020 HISTORY: LLQ pain, pt has a LP shunt CT DLP: 2822.4 mGycm CONTRAST: CT scan of the abdomen and pelvis is performed without Oral Contrast and with IV Contrast, patient in jected with 100 mL of Isovue 300. FINDINGS: LUNG BASES-: No visible nodule. No infiltrate. LIVER/GB: The gallbladder surgically absent. Hepatic steatosis mild in degree. No space occupying hepatic lesion. Biliary tree is of normal caliber. PANCREAS: No inflammation. No distinct mass. SPLEEN: No splenic enlargement. No lesion seen. ADRENALS: No nodule. No thickening. KIDNEYS/BLADDER: No hydronephrosis. No nephrolithiasis. No distinct renal mass. Urinary bladder g rossly unremarkable. BOWEL: Normal appendix. Normal bowel caliber. No inflammation. GENITAL ORGANS: Tubal ligation changes. 1 cm right ovarian cyst. Trace free fluid within the cul-de-s ac. Uterus and left ovary are unremarkable. LYMPH NODES: No greater than 1cm abdominal or pelvic lymph nodes are appreciated. AORTA: No significant abnormality. OSSEOUS STRUCTURES: No significant abnormality is seen. OTHER: Stranding left lower quadrant subcutaneous region adjacent to a subcutaneous catheter which ex tends cranially and into the upper abdomen. Correlate for cellulitis. No drainable collection. Stimul ator power pack also noted left mid abdomen laterally. IMPRESSION: 1. Stranding left lower quadrant subcutaneous region adjacent to a subcutaneous catheter which extend s cranially and into the upper abdomen. Correlate for cellulitis. No drainable collection. 2. 1 cm right ovarian cyst. Trace free fluid within the cul-de-sac.
== END 2020-12-26 09:50 | disposition home or self-care (01) ==
LOC: EC 05:31
DX: R10.32 Left lower quadrant pain (principal); E11.9 Type 2 diabetes mellitus without complications; E78.5 Hyperlipidemia, unspecified; K21.9 Gastro-esophageal reflux disease without esophagitis; M79.7 Fibromyalgia; F31.9 Bipolar disorder, unspecified; F41.9 Anxiety disorder, unspecified; F17.290 Nicotine dependence, other tobacco product, uncomplicated; F12.90 Cannabis use, unspecified, uncomplicated; Z79.84 Long term (current) use of oral hypoglycemic drugs; Z79.899 Other long term (current) drug therapy; Z83.3 Family history of diabetes mellitus; Z82.49 Family history of ischemic heart disease and other diseases of the circulatory system; Z83.49 Family history of other endocrine, nutritional and metabolic diseases; Z88.6 Allergy status to analgesic agent
CPT/HCPCS: 36415; 80053; 82150; 83605; 83690; 85025; 81001; 81025; 74177; 96374; 96361; 99284; J2270; Q9967

== ENCOUNTER 2020-12-27 00:09 | Emergency (ER) | payer OTHER ==
[2020-12-27 00:18] VITALS: BP 133/74; PULSE 105; RESP 20; TEMP 98.9
[2020-12-27] MEDS ORDERED: HYDROmorphone 1 MG/ML 1 ML SYRINGE IM STA (00:39)
[2020-12-27] MEDS ORDERED: LIDOCAINE 5% PATCH TOPICAL STA (00:39)
[2020-12-27] MEDS ORDERED: ACET/COD 300 MG/30 MG STARTER PACK 6 TAB BTL PO STA (00:39)
[2020-12-27] MEDS ORDERED: valACYclovir 500 MG TAB PO ONE (00:40)
--- NOTE | 2020-12-27 00:44 | ED ---
Recheck HPI - General Chief Complaint: Abdominal Pain Stated Complaint: Flank/Back Pain Time Seen by Provider: 12/27/20 00:23 Source: patient, RN notes reviewed, old records reviewed Mode of arrival: ambulatory Limitations: no limitations - History of Present Illness Initial Comments: This is a 30-year-old female to the ER for evaluation today in regards to left anterior bowel pain under her left sided rib cage pain from her left flank to her anterior abdomen. Patient was again seen in the ER earlier today for similar pain and inability labs and still with no cause found. Today fevers. States the rash feels like a band on her left side. Does not cross the midline. Does not cross into her back. She did have chickenpox as a kid otherwise has no complaints and no recent other signs or symptoms, no nausea vomiting or diarrhea. MD Complaint: other (Persistent pain) -: hour(s) Returns Today for: persistent/worsening pain related to initial visit Symptoms Since Prior Visit: worsening pain Associated Symptoms: none Treatments Prior to Arrival: Given Pain Meds on - Related Data Home Medications Medication Instructions Recorded Confirmed Pravastatin Sodium [Pravachol] 20 mg PO HS 01/20/18 12/26/20 LORazepam [Ativan] 1 mg PO HS PRN 11/24/18 12/26/20 buPROPion HCL [Wellbutrin XL] 300 mg PO DAILY 12/15/19 12/26/20 traZODone HCL 50 mg PO HS 12/15/19 12/26/20 ARIPiprazole 20 mg PO HS 01/09/20 12/26/20 ARIPiprazole [Abilify] 5 mg PO DAILY 01/09/20 12/26/20 Topiramate 50 mg PO HS 01/09/20 12/26/20 busPIRone HCL 15 mg PO TID 01/09/20 12/26/20 Amitriptyline HCl [Elavil] 75 mg PO BID 01/24/20 12/26/20 Verapamil HCl [Verapamil ER] 180 mg PO HS 01/24/20 12/26/20 Gabapentin 600 mg PO TID 02/20/20 12/26/20 OXcarbazepine [Oxtellar Xr] 150 mg PO HS 02/27/20 12/26/20 hydroCHLOROthiazide 25 mg PO DAILY 03/15/20 12/26/20 metFORMIN HCL 500 mg PO DAILY 07/25/20 12/26/20 SUMAtriptan succinate [Imitrex] 50 mg PO DAILY PRN 12/26/20 12/26/20 Previous Rx's Medication Instructions Recorded valACYclovir HCL [Valtrex] 1,000 mg PO Q8HR #21 tab 12/27/20 Allergies Allergy/AdvReac Type Severity Reaction Status Date / Time NSAIDS (Non-Steroidal AdvReac Pt. states Verified 12/27/20 00:18 Anti-Inflamma NSAIDS have given her a GI bleed in the past. Review of Systems ROS Statement: Those systems with pertinent positive or pertinent negative responses have been documented in the HPI. ROS Other: All systems not noted in ROS Statement are negative. Past Medical History Past Medical History: Diabetes Mellitus, Fibromyalgia, GERD/Reflux, GI Bleed, Hyperlipidemia Additional Past Medical History / Comment(s): gallstones, kidney stones, IBS, migraines, tachycardia, Martine- Guevara tear, blood clot, pesudo tumor cerebrea History of Any Multi-Drug Resistant Organisms: None Reported Past Surgical History: Section, Cholecystectomy, Tubal Ligation Additional Past Surgical History / Comment(s): neck biopsy (lymph node ) d&c; LP shunt May 13 2019 feb 0211/2019 -revision, stent/ lithotripsy on left, cystoscopy, shunt revises july 28. Past Anesthesia/Blood Transfusion Reactions: No Reported Reaction Past Psychological History: Anxiety, Bipolar, Depression, PTSD Smoking Status: Vaper Past Alcohol Use History: Rare Past Drug Use History: Marijuana - Past Family History Mother Family Medical History: Diabetes Mellitus, Hyperlipidemia, Hypertension, Myocardial Infarction ([place]) Additional Family Medical History / Comment(s): [place] X 3 Father Family Medical History: Congestive Heart Failure (CHF), Hyperlipidemia, Hypertension, Myocardial Infarction ([place]) Additional Family Medical History / Comment(s): mi x 3 Son(s) Family Medical History: No Reported History General Exam - General Exam Comments Initial Comments: Patient has dermatomal bandlike pain burning sharp pain on her left side, do suspect zoster though do not see rash Limitations: no limitations General appearance: alert, in no apparent distress Head exam: Present: atraumatic, normocephalic, normal inspection Eye exam: Present: normal appearance, PERRL, EOMI. Absent: scleral icterus, conjunctival injection, periorbital swelling ENT exam: Present: normal exam, mucous membranes moist Neck exam: Present: normal inspection. Absent: tenderness, meningismus, lymphadenopathy Respiratory exam: Present: normal lung sounds bilaterally. Absent: respiratory distress, wheezes, rales, rhonchi, stridor Cardiovascular Exam: Present: regular rate, normal rhythm, normal heart sounds. Absent: systolic murmur, diastolic murmur, rubs, gallop, clicks GI/Abdominal exam: Present: soft, normal bowel sounds. Absent: distended, tenderness, guarding, rebound, rigid Extremities exam: Present: normal inspection, full ROM, normal capillary refill. Absent: tenderness, pedal edema, joint swelling, calf tenderness Back exam: Present: normal inspection Neurological exam: Present: alert, oriented X3, CN II-XII intact Psychiatric exam: Present: normal affect, normal mood Skin exam: Present: warm, dry, intact, normal color. Absent: rash Course Vital Signs 12/27/20 00:16 Temperature 98.9 F Pulse Rate 105 H Respiratory 20 Rate Blood Pressure 133/74 O2 Sat by Pulse 96 Oximetry - Reevaluation(s) Reevaluation #1: 12/27/20 01:23 Record is reviewed Reevaluation #2: 12/27/20 01:23 Patient has symptom improvement here in the ER Reevaluation #3: 12/27/20 01:23 patient to watch for development of rash over the next 2 days Medical Decision Making - Medical Decision Making 30 female explained at length regarding zoster and complications. Patient will continue to watch for rash at the time take treatment and can be discharged home Disposition Clinical Impression: Herpes zoster Disposition: HOME SELF-CARE Condition: Good Instructions (If sedation given, give patient instructions): Shingles (ED) Prescriptions: valACYclovir HCL [Valtrex] 1,000 mg PO Q8HR #21 tab Is patient prescribed a controlled substance at d/c from ED?: No Referrals: Olvin Keenan MD [Primary Care Provider] - 1-2 days
== END 2020-12-27 01:07 | disposition home or self-care (01) ==
LOC: EC 00:09
DX: B02.9 Zoster without complications (principal); E11.9 Type 2 diabetes mellitus without complications; E78.5 Hyperlipidemia, unspecified; K21.9 Gastro-esophageal reflux disease without esophagitis; M79.7 Fibromyalgia; F31.9 Bipolar disorder, unspecified; F41.9 Anxiety disorder, unspecified; F17.290 Nicotine dependence, other tobacco product, uncomplicated; F12.90 Cannabis use, unspecified, uncomplicated; Z79.84 Long term (current) use of oral hypoglycemic drugs; Z79.899 Other long term (current) drug therapy; Z83.3 Family history of diabetes mellitus; Z82.49 Family history of ischemic heart disease and other diseases of the circulatory system; Z83.49 Family history of other endocrine, nutritional and metabolic diseases; Z88.6 Allergy status to analgesic agent
CPT/HCPCS: 99283; 96372; J1170

== ENCOUNTER 2020-12-27 12:54 | Emergency (ER) | payer OTHER ==
[2020-12-27 13:15] VITALS: TEMP 98.4
[2020-12-27] MEDS ORDERED: MORPHINE SULFATE 4 MG/ML SYRINGE IM STA (14:34)
[2020-12-27 14:53] LABS: Appearance,Urine Clear (Clear); Bilirubin,Urine Negative (Negative); Blood,Urine Negative (Negative); Color,Urine Yellow; Glucose,Urine (UA) Negative (Negative); Ketones,Urine Negative (Negative); Leukocyte Esterase,Urine Negative (Negative); Nitrite,Urine Negative (Negative); PH, Urine 6.5 (5.0-8.0); Protein,Urine Negative (Negative); Specific Gravity,Urine 1.019 (1.001-1.035)
--- NOTE | 2020-12-27 15:01 | XR ---
EXAMINATION TYPE: XR ribs LT w pa chest xray DATE OF EXAM: 12/27/2020 COMPARISON: NONE HISTORY: Pain TECHNIQUE: Single view of the chest 4 views of the ribs are submitted. FINDINGS: The lungs are clear. No Evidence for pneumothorax. No evidence for focal contusion. Medi astinal structures are midline. Evaluation of the ribs fails to demonstrate evidence for displaced r ib fracture or secondary sign of rib fracture. IMPRESSION: Negative study
[2020-12-27] MEDS ORDERED: traMADol 50 MG STARTER PACK 3 TAB BTL PO STA (15:31)
--- NOTE | 2020-12-27 15:31 | ED ---
Abdominal Pain HPI - General Chief Complaint: Abdominal Pain Stated Complaint: revisit - abd pain Time Seen by Provider: 12/27/20 14:22 Source: patient Mode of arrival: wheelchair Limitations: no limitations - History of Present Illness Initial Comments: Patient is a 30-year-old female presenting to the emergency department for recheck of her left-sided abdominal pain. This is patient's third visit in the past 2 days for same complaint. She was diagnosed earlier this morning with possible shingles of the left side. She describes this pain as a sharp burning sensation on the left side of her abdomen which does radiate to the left front of her abdomen and also towards the left back. It does not cross the midline. She did have labs and a computed tomography scan 2 days ago which showed no acute abnormality. She denies having a fever, some mild nausea but no vomiting or diarrhea. No other abdominal pain, no chest pain or shortness of breath. She states she has been taking the Valtrex and try the Tylenol threes but continues to have pain so came back in for evaluation. She was also concerned that there has been no rash yet even though her symptoms have only been going on for 2 days. She denies being secondary tubal ligation. She has no further complaints. - Related Data Home Medications Medication Instructions Recorded Confirmed Pravastatin Sodium [Pravachol] 20 mg PO HS 01/20/18 12/26/20 LORazepam [Ativan] 1 mg PO HS PRN 11/24/18 12/26/20 buPROPion HCL [Wellbutrin XL] 300 mg PO DAILY 12/15/19 12/26/20 traZODone HCL 50 mg PO HS 12/15/19 12/26/20 ARIPiprazole 20 mg PO HS 01/09/20 12/26/20 ARIPiprazole [Abilify] 5 mg PO DAILY 01/09/20 12/26/20 Topiramate 50 mg PO HS 01/09/20 12/26/20 busPIRone HCL 15 mg PO TID 01/09/20 12/26/20 Amitriptyline HCl [Elavil] 75 mg PO BID 01/24/20 12/26/20 Verapamil HCl [Verapamil ER] 180 mg PO HS 01/24/20 12/26/20 Gabapentin 600 mg PO TID 02/20/20 12/26/20 OXcarbazepine [Oxtellar Xr] 150 mg PO HS 02/27/20 12/26/20 hydroCHLOROthiazide 25 mg PO DAILY 03/15/20 12/26/20 metFORMIN HCL 500 mg PO DAILY 07/25/20 12/26/20 SUMAtriptan succinate [Imitrex] 50 mg PO DAILY PRN 12/26/20 12/26/20 Previous Rx's Medication Instructions Recorded Lidocaine 5% Patch [Lidoderm] 1 patch TOPICAL DAILY #5 patch 12/27/20 valACYclovir HCL [Valtrex] 1,000 mg PO Q8HR #21 tab 12/27/20 Allergies Allergy/AdvReac Type Severity Reaction Status Date / Time NSAIDS (Non-Steroidal AdvReac Pt. states Verified 12/27/20 13:12 Anti-Inflamma NSAIDS have given her a GI bleed in the past. Review of Systems ROS Statement: Those systems with pertinent positive or pertinent negative responses have been documented in the HPI. ROS Other: All systems not noted in ROS Statement are negative. Past Medical History Past Medical History: Diabetes Mellitus, Fibromyalgia, GERD/Reflux, GI Bleed, Hyperlipidemia Additional Past Medical History / Comment(s): gallstones, kidney stones, IBS, migraines, tachycardia, Martine- Guevara tear, blood clot, pesudo tumor cerebrea History of Any Multi-Drug Resistant Organisms: None Reported Past Surgical History: Section, Cholecystectomy, Tubal Ligation Additional Past Surgical History / Comment(s): neck biopsy (lymph node ) d&c; LP shunt May 13 2019 feb 0211/2019 -revision, stent/ lithotripsy on left, cystoscopy, shunt revises july 28. Past Anesthesia/Blood Transfusion Reactions: No Reported Reaction Past Psychological History: Anxiety, Bipolar, Depression, PTSD Smoking Status: Vaper Past Alcohol Use History: Rare Past Drug Use History: Marijuana - Past Family History Mother Family Medical History: Diabetes Mellitus, Hyperlipidemia, Hypertension, Myocardial Infarction ([place]) Additional Family Medical History / Comment(s): [place] X 3 Father Family Medical History: Congestive Heart Failure (CHF), Hyperlipidemia, Hypertension, Myocardial Infarction ([place]) Additional Family Medical History / Comment(s): mi x 3 Son(s) Family Medical History: No Reported History General Exam - General Exam Comments Initial Comments: GENERAL: Patient is well-developed and well-nourished. Patient is nontoxic and in no acute distress. HEAD: Atraumatic, normocephalic. EYES: Pupils equal round and reactive to light, extraocular movements intact, sclera anicteric, conjunctiva are normal. Eyelids were unremarkable. ENT: Moist mucous membranes. NECK: Normal range of motion, supple without lymphadenopathy or JVD. LUNGS: Unlabored respirations. Breath sounds clear to auscultation bilaterally and equal. No wheezes rales or rhonchi. HEART: Regular rate and rhythm without murmurs, rubs or gallops. ABDOMEN: Soft, mildly tender to palpation of the left side of the abdomen,, normoactive bowel sounds. No guarding, no rebound. No masses appreciated. : Deferred MUSCULOSKELETAL: Normal extremities with adequate strength and normal range of motion, no pitting or edema. No clubbing or cyanosis. NEUROLOGICAL: Patient is alert and oriented x 3. Normal speech, normal gait. PSYCH: Normal mood, normal affect. SKIN: Warm, Dry, normal turgor, no rashes or lesions noted. Limitations: no limitations Course Vital Signs 12/27/20 12/27/20 13:12 15:40 Temperature 98.4 F Pulse Rate 96 79 Respiratory 20 18 Rate Blood Pressure 130/78 143/77 O2 Sat by Pulse 96 99 Oximetry Medical Decision Making - Medical Decision Making Patient is a 30-year-old female here for recheck of some left-sided abdominal pain over the past 2 days. This is patient's third visit in 2 days for same complaint, she was diagnosed with shingles yesterday, started on Valtrex and given Tylenol threes for pain relief. Her vitals are stable, she does have some left-sided pain on palpation, no rash currently present. I did check an urine which was normal and did a chest x-ray with some left-sided rib films which revealed no acute process. Discussed these findings with the patient. I did recommend trial of lidocaine patches for discomfort and we'll also try tramadol for pain relief. I discussed the patient there is nothing further we can do here for this diagnosis, needs to run its course she needs to continue with her current medications. She needs to follow up with her primary care physician. She is agreeable to this and is stable for discharge. Case discussed with Dr. Rai. - Lab Data Lab Results 12/27/20 12/27/20 Range/Units 14:43 14:43 Urine Color Yellow Urine Appearance Clear (Clear) Urine pH 6.5 (5.0-8.0) Ur Specific [place] 1.019 (1.001-1.035) Urine Protein Negative (Negative) Urine Glucose (UA) Negative (Negative) Urine Ketones Negative (Negative) Urine Blood Negative (Negative) Urine Nitrite Negative (Negative) Urine Bilirubin Negative (Negative) Urine Urobilinogen 2.0 (<2.0) mg/dL Ur Leukocyte Esterase Negative (Negative) Urine HCG, Qual Not Detected (Not Detectd) Disposition Clinical Impression: Left lateral abdominal pain, Herpes zoster Disposition: HOME SELF-CARE Condition: Stable Instructions (If sedation given, give patient instructions): Shingles (ED) Additional Instructions: Please return to the Emergency Department if symptoms worsen or any other concerns. Trial of lidocaine patches for pain relief, may try ice to the area, continue with your Valtrex medication. Please follow-up with your primary care physician. Prescriptions: Lidocaine 5% Patch [Lidoderm] 1 patch TOPICAL DAILY #5 patch Is patient prescribed a controlled substance at d/c from ED?: No Referrals: Olvin Keenan MD [Primary Care Provider] - 1-2 days Time of Disposition: 15:31
[2020-12-27 15:46] VITALS: BP 143/77; PULSE 79; RESP 18
== END 2020-12-27 15:47 | disposition home or self-care (01) ==
LOC: EC 12:54
DX: R10.9 Unspecified abdominal pain (principal); B02.9 Zoster without complications; E11.9 Type 2 diabetes mellitus without complications; E78.5 Hyperlipidemia, unspecified; K21.9 Gastro-esophageal reflux disease without esophagitis; M79.7 Fibromyalgia; F31.9 Bipolar disorder, unspecified; F41.9 Anxiety disorder, unspecified; F12.90 Cannabis use, unspecified, uncomplicated; Z79.84 Long term (current) use of oral hypoglycemic drugs; Z79.899 Other long term (current) drug therapy; Z83.3 Family history of diabetes mellitus; Z82.49 Family history of ischemic heart disease and other diseases of the circulatory system
CPT/HCPCS: 81003; 81025; 71101; 99284; 96372; J2270

== ENCOUNTER 2020-12-31 23:32 | Emergency (ER) | payer OTHER ==
[2020-12-31 23:43] VITALS: TEMP 98.6
--- NOTE | 2020-12-31 23:47 | ED ---
Recheck HPI - General Chief Complaint: Recheck/Abnormal Lab/Rx Stated Complaint: Abdominal pain Time Seen by Provider: 12/31/20 23:46 Source: patient, RN notes reviewed, old records reviewed Mode of arrival: ambulatory Limitations: no limitations - History of Present Illness Initial Comments: This is a 30-year-old female to the emergency department today. This patient Dese for evaluation of abdominal pain back pain, left-sided abdominal pain which she has been evaluated 2 on multiple occasions. Patient with multiple ER visits for similar complaint. No current nausea or vomiting. No fevers. Patient's been given different diagnoses including zoster with no rash. Patient here with just persistent left-sided abdominal pain. MD Complaint: medication refill request -: week(s) Returns Today for: persistent/worsening pain related to initial visit Symptoms Since Prior Visit: worsening pain Context: other (none) Associated Symptoms: abdominal pain Treatments Prior to Arrival: Given Pain Meds on - Related Data Home Medications Medication Instructions Recorded Confirmed Pravastatin Sodium [Pravachol] 20 mg PO HS 01/20/18 01/02/21 LORazepam [Ativan] 1 mg PO HS PRN 11/24/18 01/02/21 buPROPion HCL [Wellbutrin XL] 300 mg PO DAILY 12/15/19 01/02/21 traZODone HCL 50 mg PO HS 12/15/19 01/02/21 ARIPiprazole 20 mg PO HS 01/09/20 01/02/21 ARIPiprazole [Abilify] 5 mg PO DAILY 01/09/20 01/02/21 Topiramate 50 mg PO HS 01/09/20 01/02/21 busPIRone HCL 15 mg PO TID 01/09/20 01/02/21 Amitriptyline HCl [Elavil] 75 mg PO BID 01/24/20 01/02/21 Verapamil HCl [Verapamil ER] 180 mg PO HS 01/24/20 01/02/21 Gabapentin 600 mg PO TID 02/20/20 01/02/21 OXcarbazepine [Oxtellar Xr] 150 mg PO HS 02/27/20 01/02/21 hydroCHLOROthiazide 25 mg PO DAILY 03/15/20 01/02/21 metFORMIN HCL 500 mg PO DAILY 07/25/20 01/02/21 SUMAtriptan succinate [Imitrex] 50 mg PO DAILY PRN 12/26/20 01/02/21 Prochlorperazine [Compazine] 10 mg PO Q8H PRN 01/02/21 01/02/21 Previous Rx's Medication Instructions Recorded Lidocaine 5% Patch [Lidoderm] 1 patch TOPICAL DAILY #5 patch 12/27/20 valACYclovir HCL [Valtrex] 1,000 mg PO Q8HR #21 tab 12/27/20 Dicyclomine [Bentyl] 20 mg PO TID PRN #20 tablet 01/01/21 Famotidine [Pepcid] 20 mg PO BID #30 tablet 01/01/21 Allergies Allergy/AdvReac Type Severity Reaction Status Date / Time NSAIDS (Non-Steroidal AdvReac Pt. states Verified 01/02/21 13:47 Anti-Inflamma NSAIDS have given her a GI bleed in the past. Review of Systems ROS Statement: Those systems with pertinent positive or pertinent negative responses have been documented in the HPI. ROS Other: All systems not noted in ROS Statement are negative. Past Medical History Past Medical History: Diabetes Mellitus, Fibromyalgia, GERD/Reflux, GI Bleed, Hyperlipidemia Additional Past Medical History / Comment(s): gallstones, kidney stones, IBS, migraines, tachycardia, Martine- Guevara tear, blood clot, pesudo tumor cerebrea History of Any Multi-Drug Resistant Organisms: None Reported Past Surgical History: Section, Cholecystectomy, Tubal Ligation Additional Past Surgical History / Comment(s): neck biopsy (lymph node ) d&c; LP shunt May 13 2019 feb 0211/2019 -revision, stent/ lithotripsy on left, cystoscopy, shunt revises july 28. Past Anesthesia/Blood Transfusion Reactions: No Reported Reaction Past Psychological History: Anxiety, Bipolar, Depression, PTSD Smoking Status: Vaper Past Alcohol Use History: Rare Past Drug Use History: Marijuana - Past Family History Mother Family Medical History: Diabetes Mellitus, Hyperlipidemia, Hypertension, Myocardial Infarction ([place]) Additional Family Medical History / Comment(s): [place] X 3 Father Family Medical History: Congestive Heart Failure (CHF), Hyperlipidemia, Hypertension, Myocardial Infarction ([place]) Additional Family Medical History / Comment(s): mi x 3 Son(s) Family Medical History: No Reported History General Exam Limitations: no limitations General appearance: alert, in no apparent distress Head exam: Present: atraumatic, normocephalic, normal inspection Eye exam: Present: normal appearance, PERRL, EOMI. Absent: scleral icterus, conjunctival injection, periorbital swelling ENT exam: Present: normal exam, mucous membranes moist Neck exam: Present: normal inspection. Absent: tenderness, meningismus, lymphadenopathy Respiratory exam: Present: normal lung sounds bilaterally. Absent: respiratory distress, wheezes, rales, rhonchi, stridor Cardiovascular Exam: Present: regular rate, normal rhythm, normal heart sounds. Absent: systolic murmur, diastolic murmur, rubs, gallop, clicks GI/Abdominal exam: Present: soft, normal bowel sounds. Absent: distended, tenderness, guarding, rebound, rigid Extremities exam: Present: normal inspection, full ROM, normal capillary refill. Absent: tenderness, pedal edema, joint swelling, calf tenderness Back exam: Present: normal inspection Neurological exam: Present: alert, oriented X3, CN II-XII intact Psychiatric exam: Present: normal affect, normal mood Skin exam: Present: warm, dry, intact, normal color. Absent: rash Course Vital Signs 12/31/20 01/01/21 23:41 03:40 Temperature 98.6 F Pulse Rate 100 86 Respiratory 16 18 Rate Blood Pressure 121/72 115/67 O2 Sat by Pulse 94 L 97 Oximetry - Reevaluation(s) Reevaluation #1: 01/01/21 00:47 Medical record is reviewed Patient symptoms are improved here in the ER Patient informed results and findings, questions answered Patient is no acute distress Medical Decision Making - Medical Decision Making 30 female with acute on chronic abdominal pain nonspecific abdominal pain. Patient has normal testing and imaging here in the ER and can be discharged home - Lab Data Result diagrams: 01/01/21 00:50 01/01/21 00:50 Lab Results 01/01/21 01/01/21 01/01/21 Range/Units 00:50 00:50 00:50 WBC 11.4 H (3.8-10.6) k/uL RBC 4.63 (3.80-5.40) m/uL Hgb 13.9 (11.4-16.0) gm/dL Hct 41.2 (34.0-46.0) % MCV 89.0 (80.0-100.0) fL MCH 30.0 (25.0-35.0) pg MCHC 33.7 (31.0-37.0) g/dL RDW 13.6 (11.5-15.5) % Plt Count 340 (150-450) k/uL MPV 6.9 Neutrophils % 67 % Lymphocytes % 21 % Monocytes % 3 % Eosinophils % 5 % Basophils % 1 % Neutrophils # 7.6 (1.3-7.7) k/uL Lymphocytes # 2.4 (1.0-4.8) k/uL Monocytes # 0.3 (0-1.0) k/uL Eosinophils # 0.6 (0-0.7) k/uL Basophils # 0.1 (0-0.2) k/uL Sodium 138 (137-145) mmol/L Potassium 4.1 (3.5-5.1) mmol/L Chloride 104 (98-107) mmol/L Carbon Dioxide 27 (22-30) mmol/L Anion Gap 7 mmol/L BUN 20 H (7-17) mg/dL Creatinine 0.77 (0.52-1.04) mg/dL Est GFR (CKD-EPI)AfAm >90 (>60 ml/min/1.73 sqM) Est GFR (CKD-EPI)NonAf >90 (>60 ml/min/1.73 sqM) Glucose 134 H (74-99) mg/dL Plasma Lactic Acid Darnell (0.7-2.0) mmol/L Calcium 8.9 (8.4-10.2) mg/dL Total Bilirubin 0.4 (0.2-1.3) mg/dL AST 48 H (14-36) U/L ALT 67 H (4-34) U/L Alkaline Phosphatase 130 H (38-126) U/L Total Protein 6.2 L (6.3-8.2) g/dL Albumin 3.7 (3.5-5.0) g/dL Amylase 40 (30-110) U/L Lipase 70 (23-300) U/L Urine Color Yellow Urine Appearance Clear (Clear) Urine pH 6.0 (5.0-8.0) Ur Specific [place] 1.037 H (1.001-1.035) Urine Protein Trace H (Negative) Urine Glucose (UA) Negative (Negative) Urine Ketones Negative (Negative) Urine Blood Large H (Negative) Urine Nitrite Negative (Negative) Urine Bilirubin Negative (Negative) Urine Urobilinogen 2.0 (<2.0) mg/dL Ur Leukocyte Esterase Trace H (Negative) Urine RBC 137 H (0-5) /hpf Urine WBC 8 H (0-5) /hpf Ur Squamous Epith Cells <1 (0-4) /hpf Urine Bacteria Rare H (None) /hpf Urine Mucus Few H (None) /hpf 01/01/21 Range/Units 00:50 WBC (3.8-10.6) k/uL RBC (3.80-5.40) m/uL Hgb (11.4-16.0) gm/dL Hct (34.0-46.0) % MCV (80.0-100.0) fL MCH (25.0-35.0) pg MCHC (31.0-37.0) g/dL RDW (11.5-15.5) % Plt Count (150-450) k/uL MPV Neutrophils % % Lymphocytes % % Monocytes % % Eosinophils % % Basophils % % Neutrophils # (1.3-7.7) k/uL Lymphocytes # (1.0-4.8) k/uL Monocytes # (0-1.0) k/uL Eosinophils # (0-0.7) k/uL Basophils # (0-0.2) k/uL Sodium (137-145) mmol/L Potassium (3.5-5.1) mmol/L Chloride (98-107) mmol/L Carbon Dioxide (22-30) mmol/L Anion Gap mmol/L BUN (7-17) mg/dL Creatinine (0.52-1.04) mg/dL Est GFR (CKD-EPI)AfAm (>60 ml/min/1.73 sqM) Est GFR (CKD-EPI)NonAf (>60 ml/min/1.73 sqM) Glucose (74-99) mg/dL Plasma Lactic Acid Darnell 1.2 (0.7-2.0) mmol/L Calcium (8.4-10.2) mg/dL Total Bilirubin (0.2-1.3) mg/dL AST (14-36) U/L ALT (4-34) U/L Alkaline Phosphatase (38-126) U/L Total Protein (6.3-8.2) g/dL Albumin (3.5-5.0) g/dL Amylase (30-110) U/L Lipase (23-300) U/L Urine Color Urine Appearance (Clear) Urine pH (5.0-8.0) Ur Specific [place] (1.001-1.035) Urine Protein (Negative) Urine Glucose (UA) (Negative) Urine Ketones (Negative) Urine Blood (Negative) Urine Nitrite (Negative) Urine Bilirubin (Negative) Urine Urobilinogen (<2.0) mg/dL Ur Leukocyte Esterase (Negative) Urine RBC (0-5) /hpf Urine WBC (0-5) /hpf Ur Squamous Epith Cells (0-4) /hpf Urine Bacteria (None) /hpf Urine Mucus (None) /hpf - Radiology Data Radiology results: report reviewed (CT chest abdomen and pelvis negative for significant acute disease), image reviewed Disposition Clinical Impression: Abdominal pain Disposition: HOME SELF-CARE Condition: Good Instructions (If sedation given, give patient instructions): Abdominal Pain (ED) Is patient prescribed a controlled substance at d/c from ED?: No Referrals: Olvin Keenan MD [Primary Care Provider] - 1-2 days
[2021-01-01] MEDS ORDERED: ONDANSETRON 4 MG/2 ML VIAL IVP STA (00:44)
[2021-01-01] MEDS ORDERED: SODIUM CHLORIDE 0.9% 1,000 ML IV STA (00:44)
[2021-01-01] MEDS ORDERED: MORPHINE SULFATE 4 MG/ML SYRINGE IV STA (00:44)
[2021-01-01 01:07] LABS: Basophils # (A) 0.1 k/uL (0-0.2); Basophils % (A) 1 %; Eosinophils # (A) 0.6 k/uL (0-0.7); Eosinophils % (A) 5 %; HCT 41.2 % (34.0-46.0); HGB 13.9 gm/dL (11.4-16.0); Lymphocytes # (A) 2.4 k/uL (1.0-4.8); Lymphocytes % (A) 21 %; MCHC 33.7 g/dL (31.0-37.0); Mean Platelet Volume 6.9; Monocytes # (A) 0.3 k/uL (0-1.0); Monocytes % (A) 3 %; Neutrophils # (A) 7.6 k/uL (1.3-7.7); Neutrophils % (A) 67 %; Platelet Count 340 k/uL (150-450); RBC 4.63 m/uL (3.80-5.40); RDW 13.6 % (11.5-15.5); WBC 11.4 k/uL (3.8-10.6)
[2021-01-01 01:19] LABS: ALT 67 U/L (4-34); AST 48 U/L (14-36); African American GFR (CKD) >90 (>60 ml/min/1.73 sqM); Albumin 3.7 g/dL (3.5-5.0); Alkaline Phosphatase 130 U/L (38-126); Amylase 40 U/L (30-110); Anion Gap 7 mmol/L; Blood Urea Nitrogen 20 mg/dL (7-17); Calcium 8.9 mg/dL (8.4-10.2); Carbon Dioxide 27 mmol/L (22-30); Chloride 104 mmol/L (98-107); Glucose 134 mg/dL (74-99); Lipase 70 U/L (23-300); Non-African American GFR(CKD) >90 (>60 ml/min/1.73 sqM); Potassium 4.1 mmol/L (3.5-5.1); Sodium 138 mmol/L (137-145); Total Bilirubin 0.4 mg/dL (0.2-1.3); Total Protein 6.2 g/dL (6.3-8.2)
[2021-01-01 01:29] LABS: Appearance,Urine Clear (Clear); Bacteria,Urine Rare /hpf; Bilirubin,Urine Negative (Negative); Blood,Urine Large (Negative); Color,Urine Yellow; Glucose,Urine (UA) Negative (Negative); Ketones,Urine Negative (Negative); Leukocyte Esterase,Urine Trace (Negative); Mucus,Urine Few /hpf; Nitrite,Urine Negative (Negative); Protein,Urine Trace (Negative); RBC,Urine 137 /hpf (0-5); Specific Gravity,Urine 1.037 (1.001-1.035); Squamous Epithelial Cell,Urine <1 /hpf (0-4); WBC,Urine 8 /hpf (0-5)
--- NOTE | 2021-01-01 01:40 | CT ---
EXAMINATION TYPE: CT angio chest DATE OF EXAM: 01/01/2021 COMPARISON: 12/24/2018 HISTORY: pain CT DLP: 905 mGycm Automated exposure control for dose reduction was used. CONTRAST: Performed with IV Contrast, patient injected with 100 mL of Isovue 370. There are 3-D post processed images. The lungs are clear of infiltrate. There is no pleural effusion. There is no pericardial effusion. Th ere is no evidence of a pulmonary mass. There is no mediastinal adenopathy. There are no hilar masses . Thoracic aorta is intact. There is no aneurysm or dissection. There is normal contrast opacification of the pulmonary arteries. There is no filling defect. There is suboptimal contrast density in the sm aller branches of the pulmonary arteries. The thoracic spine is intact. Sternum is intact. There is low attenuation throughout the liver. IMPRESSION: No evidence of pulmonary embolism. Fatty infiltration of the liver. No change compared to old exam.
--- NOTE | 2021-01-01 01:47 | CT ---
EXAMINATION TYPE: CT abdomen pelvis w con DATE OF EXAM: 01/01/2021 COMPARISON: 12/26/2020 HISTORY: pain CT DLP: 2653.3 mGycm Automated exposure control for dose reduction was used. CONTRAST: Performed with IV Contrast, patient injected with 100 mL of Isovue 370. Images obtained from the diaphragm to the floor the pelvis with IV contrast. Lung bases are clear. There is no pleural effusion. Heart size is normal. There is no pericardial eff usion. There is some fatty infiltration of the liver. Spleen is intact. Stomach is intact. There is no pancr eatic mass. There are clips from cholecystectomy. The bile ducts are not dilated. There is no adrenal mass. Kidneys show satisfactory contrast opacification. There is no hydronephrosi s. Ureters are not dilated. Bladder distends smoothly. There is no inguinal hernia. Uterus is antever micky. There is small amount of low-density fluid in the pelvis. There is no evidence of pelvic mass. T erminal ileum appears normal. Appendix not seen. There is surgical clip in the anterior aspect of the cecum. There is no mesenteric edema. There is no ascites or free air. There is no bowel obstruction. The lum bar vertebra have normal spacing and alignment. Posterior elements are intact. There is no compressio n fracture. Bony pelvis is intact. The hip joints are intact. There is no hip dysplasia. There is cat heter material noted on the left side of the anterior and posterior abdomen with spinal catheter and pump over the left posterior abdomen as well as apparent catheter in the left upper quadrant adjacent to the spleen. Not changed in position. IMPRESSION: Fatty infiltration of the liver. Appendix not seen. No sign of thickened appendix. Small amount of lo w-density free fluid in the pelvis similar to old exam
[2021-01-01] MEDS ORDERED: HYDROmorphone 1 MG/ML 1 ML SYRINGE IVP STA (02:40)
[2021-01-01 04:09] VITALS: BP 115/67; PULSE 86; RESP 18
== END 2021-01-01 03:45 | disposition home or self-care (01) ==
LOC: EC 23:32
DX: Z76.0 Encounter for issue of repeat prescription (principal); R10.9 Unspecified abdominal pain; E11.9 Type 2 diabetes mellitus without complications; K21.9 Gastro-esophageal reflux disease without esophagitis; E78.5 Hyperlipidemia, unspecified; F41.9 Anxiety disorder, unspecified; F31.9 Bipolar disorder, unspecified; F43.12 Post-traumatic stress disorder, chronic; F17.290 Nicotine dependence, other tobacco product, uncomplicated; F12.90 Cannabis use, unspecified, uncomplicated; Z79.84 Long term (current) use of oral hypoglycemic drugs; Z90.49 Acquired absence of other specified parts of digestive tract; Z88.6 Allergy status to analgesic agent; Z87.442 Personal history of urinary calculi; Z98.51 Tubal ligation status
CPT/HCPCS: 99284; 96374; 96375 ×2; 96361; 36415; 80053; 82150; 83605; 83690; 85025; 81001; 71275; 74177; J2270; J2405; J1170; Q9967

== ENCOUNTER 2021-01-01 10:58 | Emergency (ER) | payer OTHER ==
[2021-01-01 11:01] VITALS: BP 126/74; PULSE 68; RESP 20; TEMP 98.6
[2021-01-01] MEDS ORDERED: FAMOTIDINE 20 MG TAB PO STA (11:19)
[2021-01-01] MEDS ORDERED: DICYCLOMINE 10 MG/ML 2 ML AMP IM STA (11:19)
--- NOTE | 2021-01-01 11:22 | ED ---
General Adult HPI - General Chief complaint: Abdominal Pain Stated complaint: Revisit Abd Pain Time Seen by Provider: 01/01/21 11:02 Source: patient, RN notes reviewed Mode of arrival: ambulatory Limitations: no limitations - History of Present Illness Initial comments: 30-year-old female with a past medical history of fibromyalgia, diabetes mellitus, GERD, GI bleed, hyperlipidemia presents to the emergency room for abdominal pain. Patient has had abdominal pain for over a week now. It is on the left side of the abdomen. Patient states she had a "gross" bowel movement this morning that was smelly and loose. This prompted her to come to the emergency room. Patient was seen less than 12 hours ago in the emergency room for the same complaint and had a complete workup performed.Patient has no other complaints at this time including shortness of breath, chest pain, nausea or vomiting, headache, or visual changes. - Related Data Home Medications Medication Instructions Recorded Confirmed Pravastatin Sodium [Pravachol] 20 mg PO HS 01/20/18 12/26/20 LORazepam [Ativan] 1 mg PO HS PRN 11/24/18 12/26/20 buPROPion HCL [Wellbutrin XL] 300 mg PO DAILY 12/15/19 12/26/20 traZODone HCL 50 mg PO HS 12/15/19 12/26/20 ARIPiprazole 20 mg PO HS 01/09/20 12/26/20 ARIPiprazole [Abilify] 5 mg PO DAILY 01/09/20 12/26/20 Topiramate 50 mg PO HS 01/09/20 12/26/20 busPIRone HCL 15 mg PO TID 01/09/20 12/26/20 Amitriptyline HCl [Elavil] 75 mg PO BID 01/24/20 12/26/20 Verapamil HCl [Verapamil ER] 180 mg PO HS 01/24/20 12/26/20 Gabapentin 600 mg PO TID 02/20/20 12/26/20 OXcarbazepine [Oxtellar Xr] 150 mg PO HS 02/27/20 12/26/20 hydroCHLOROthiazide 25 mg PO DAILY 03/15/20 12/26/20 metFORMIN HCL 500 mg PO DAILY 07/25/20 12/26/20 SUMAtriptan succinate [Imitrex] 50 mg PO DAILY PRN 12/26/20 12/26/20 Previous Rx's Medication Instructions Recorded Lidocaine 5% Patch [Lidoderm] 1 patch TOPICAL DAILY #5 patch 12/27/20 valACYclovir HCL [Valtrex] 1,000 mg PO Q8HR #21 tab 12/27/20 Dicyclomine [Bentyl] 20 mg PO TID PRN #20 tablet 01/01/21 Famotidine [Pepcid] 20 mg PO BID #30 tablet 01/01/21 Allergies Allergy/AdvReac Type Severity Reaction Status Date / Time NSAIDS (Non-Steroidal AdvReac Pt. states Verified 01/01/21 11:01 Anti-Inflamma NSAIDS have given her a GI bleed in the past. Review of Systems ROS Statement: Those systems with pertinent positive or pertinent negative responses have been documented in the HPI. ROS Other: All systems not noted in ROS Statement are negative. Past Medical History Past Medical History: Diabetes Mellitus, Fibromyalgia, GERD/Reflux, GI Bleed, Hyperlipidemia Additional Past Medical History / Comment(s): gallstones, kidney stones, IBS, migraines, tachycardia, Martine- Guevara tear, blood clot, pesudo tumor cerebrea History of Any Multi-Drug Resistant Organisms: None Reported Past Surgical History: Section, Cholecystectomy, Tubal Ligation Additional Past Surgical History / Comment(s): neck biopsy (lymph node ) d&c; LP shunt May 13 2019 feb 0211/2019 -revision, stent/ lithotripsy on left, cystoscopy, shunt revises july 28. Past Anesthesia/Blood Transfusion Reactions: No Reported Reaction Past Psychological History: Anxiety, Bipolar, Depression, PTSD Smoking Status: Vaper Past Alcohol Use History: Rare Past Drug Use History: Marijuana - Past Family History Mother Family Medical History: Diabetes Mellitus, Hyperlipidemia, Hypertension, Jovani cardial Infarction ([place]) Additional Family Medical History / Comment(s): [place] X 3 Father Family Medical History: Congestive Heart Failure (CHF), Hyperlipidemia, Hypertension, Myocardial Infarction ([place]) Additional Family Medical History / Comment(s): [place] x 3 Son(s) Family Medical History: No Reported History General Exam Limitations: no limitations General appearance: alert, in no apparent distress Head exam: Present: atraumatic Eye exam: Present: normal appearance, PERRL, EOMI. Absent: scleral icterus ENT exam: Present: normal exam, mucous membranes moist Neck exam: Present: normal inspection, full ROM. Absent: tenderness Respiratory exam: Present: normal lung sounds bilaterally. Absent: respiratory distress, wheezes Cardiovascular Exam: Present: regular rate, normal rhythm, normal heart sounds GI/Abdominal exam: Present: soft, tenderness (Minimal left-sided abdominal tenderness), normal bowel sounds. Absent: distended Neurological exam: Present: alert Course Vital Signs 01/01/21 10:59 Temperature 98.6 F Pulse Rate 68 Respiratory 20 Rate Blood Pressure 126/74 O2 Sat by Pulse 96 Oximetry Medical Decision Making - Medical Decision Making She has some mild left-sided abdominal tenderness. This patient's fifth visit in a week for the same abdominal pain. Patient has had several CAT scans including a CTA of the chest and a CT of the abdomen and pelvis with contrast less than 12 hours ago. Laboratory evaluation at that time was unremarkable. She did have some blood in her urine suspected to be secondary of menses. Today she started to have some diarrhea. Patient will be given IM Bentyl and discharged home with Bentyl and Pepcid. Discussed that she will need to f/u with primary care or her surgeon. She has an appointment with primary care this week. She will return here for any worsening symptoms. Disposition Clinical Impression: Abdominal pain Disposition: HOME SELF-CARE Condition: Good Instructions (If sedation given, give patient instructions): Abdominal Pain (ED) Additional Instructions: Please take Bentyl and Pepcid as directed. Follow-up with your doctor in one to 2 days. Return to the emergency room for any worsening symptoms. Prescriptions: Dicyclomine [Bentyl] 20 mg PO TID PRN #20 tablet PRN Reason: abdominal pain Famotidine [Pepcid] 20 mg PO BID #30 tablet Is patient prescribed a controlled substance at d/c from ED?: No Referrals: Olvin Keenan MD [Primary Care Provider] - 1-2 days Lazara Stanford MD [STAFF PHYSICIAN] - 1-2 days Time of Disposition: 11:21
== END 2021-01-01 11:53 | disposition home or self-care (01) ==
LOC: EC 10:58
DX: R10.9 Unspecified abdominal pain (principal); E11.9 Type 2 diabetes mellitus without complications; E78.5 Hyperlipidemia, unspecified; K21.9 Gastro-esophageal reflux disease without esophagitis; M79.7 Fibromyalgia; Z79.84 Long term (current) use of oral hypoglycemic drugs; Z79.899 Other long term (current) drug therapy; Z83.3 Family history of diabetes mellitus; Z82.49 Family history of ischemic heart disease and other diseases of the circulatory system; Z83.49 Family history of other endocrine, nutritional and metabolic diseases; Z88.6 Allergy status to analgesic agent; Z90.49 Acquired absence of other specified parts of digestive tract
CPT/HCPCS: 96372; 99283; J0500

== ENCOUNTER 2021-01-02 12:24 | Emergency (ER) | payer OTHER ==
[2021-01-02 12:29] VITALS: RESP 20; TEMP 98.3
--- NOTE | 2021-01-02 12:54 | ED ---
General Adult HPI - General Chief complaint: Abdominal Pain Stated complaint: revisit - abd pain, blood in stool Time Seen by Provider: 01/02/21 12:25 Source: patient, RN notes reviewed, old records reviewed Mode of arrival: ambulatory Limitations: no limitations - History of Present Illness Initial comments: This is a 30-year-old female who presents emergency department for the sixth time in a week she also went over discharge hospital. Patient complains of left-sided flank pain she's had multiple workups including lab work urine CAT scans of the abdomen and pelvis as well as chest CAT scans. Patient states the pain continues she's trying to get into see her doctor and GI but they can't see her immediately so she came back to the emergency department. Patient states she continues to have left-sided abdominal pain. Patient denies any fever chills. Patient denies any nausea vomiting. Patient has diarrhea. Patient states her stools are dark and removed a told her she had some blood in her stools. Patient does admit that her hemoglobin is been stable throughout the duration of her symptoms. Patient denies lightheadedness or dizziness. - Related Data Home Medications Medication Instructions Recorded Confirmed Pravastatin Sodium [Pravachol] 20 mg PO HS 01/20/18 01/02/21 LORazepam [Ativan] 1 mg PO HS PRN 11/24/18 01/02/21 buPROPion HCL [Wellbutrin XL] 300 mg PO DAILY 12/15/19 01/02/21 traZODone HCL 50 mg PO HS 12/15/19 01/02/21 ARIPiprazole 20 mg PO HS 01/09/20 01/02/21 ARIPiprazole [Abilify] 5 mg PO DAILY 01/09/20 01/02/21 Topiramate 50 mg PO HS 01/09/20 01/02/21 busPIRone HCL 15 mg PO TID 01/09/20 01/02/21 Amitriptyline HCl [Elavil] 75 mg PO BID 01/24/20 01/02/21 Verapamil HCl [Verapamil ER] 180 mg PO HS 01/24/20 01/02/21 Gabapentin 600 mg PO TID 02/20/20 01/02/21 OXcarbazepine [Oxtellar Xr] 150 mg PO HS 02/27/20 01/02/21 hydroCHLOROthiazide 25 mg PO DAILY 03/15/20 01/02/21 metFORMIN HCL 500 mg PO DAILY 07/25/20 01/02/21 SUMAtriptan succinate [Imitrex] 50 mg PO DAILY PRN 12/26/20 01/02/21 Prochlorperazine [Compazine] 10 mg PO Q8H PRN 01/02/21 01/02/21 Previous Rx's Medication Instructions Recorded Lidocaine 5% Patch [Lidoderm] 1 patch TOPICAL DAILY #5 patch 12/27/20 valACYclovir HCL [Valtrex] 1,000 mg PO Q8HR #21 tab 12/27/20 Dicyclomine [Bentyl] 20 mg PO TID PRN #20 tablet 01/01/21 Famotidine [Pepcid] 20 mg PO BID #30 tablet 01/01/21 Allergies Allergy/AdvReac Type Severity Reaction Status Date / Time NSAIDS (Non-Steroidal AdvReac Pt. states Verified 01/02/21 13:47 Anti-Inflamma NSAIDS have given her a GI bleed in the past. Review of Systems ROS Statement: Those systems with pertinent positive or pertinent negative responses have been documented in the HPI. ROS Other: All systems not noted in ROS Statement are negative. Past Medical History Past Medical History: Diabetes Mellitus, Fibromyalgia, GERD/Reflux, GI Bleed, Hyperlipidemia Additional Past Medical History / Comment(s): gallstones, kidney stones, IBS, migraines, tachycardia, Martine- Guevara tear, blood clot, pesudo tumor cerebrea History of Any Multi-Drug Resistant Organisms: None Reported Past Surgical History: Section, Cholecystectomy, Tubal Ligation Additional Past Surgical History / Comment(s): neck biopsy (lymph node ) d&c; LP shunt May 13 2019 feb 0211/2019 -revision, stent/ lithotripsy on left, cystoscopy, shunt revises july 28. Past Anesthesia/Blood Transfusion Reactions: No Reported Reaction Past Psychological History: Anxiety, Bipolar, Depression, PTSD Past Alcohol Use History: Rare Past Drug Use History: Marijuana - Past Family History Mother Family Medical History: Diabetes Mellitus, Hyperlipidemia, Hypertension, Myocardial Infarction ([place]) Additional Family Medical History / Comment(s): [place] X 3 Father Family Medical History: Congestive Heart Failure (CHF), Hyperlipidemia, Hypertension, Myocardial Infarction ([place]) Additional Family Medical History / Comment(s): mi x 3 Son(s) Family Medical History: No Reported History General Exam - General Exam Comments Initial Comments: GENERAL: Patient is well-developed and well-nourished. Patient is nontoxic and well- hydrated and is in no acute distress. Patient is in no distress when I entered the room and is on her phone. ENT: Neck is soft and supple. No significant lymphadenopathy is noted. Oropharynx is clear. Moist mucous membranes. Neck has full range of motion without eliciting any pain. EYES: The sclera were anicteric and conjunctiva were pink and moist. Extraocular movements were intact and pupils were equal round and reactive to light. Eyelids were unremarkable. PULMONARY: Unlabored respirations. Good breath sounds bilaterally. No audible rales rhonchi or wheezing was noted. CARDIOVASCULAR: There is a regular rate and rhythm without any murmurs gallops or rubs. ABDOMEN: Soft and nontender with normal bowel sounds. SKIN: Skin is clear with no lesions or rashes and otherwise unremarkable. NEUROLOGIC: Patient is alert and oriented x3. Cranial nerves II through XII are grossly intact. Motor and sensory are also intact. Normal speech, volume and content. Symmetrical smile. MUSCULOSKELETAL: Normal extremities with adequate strength and full range of motion. LYMPHATICS: No significant lymphadenopathy is noted PSYCHIATRIC: Normal psychiatric evaluation. Limitations: no limitations Course Vital Signs 01/02/21 12:25 Temperature 98.3 F Pulse Rate 100 Respiratory 20 Rate Blood Pressure 138/83 O2 Sat by Pulse 95 Oximetry Medical Decision Making - Medical Decision Making His hemoglobin is stable I reviewed the patient's previous visits and CAT scans. I went through multiple times and every time when the room the patient was calm only no distress playing on her phone. EKG shows normal sinus rhythm at 82 bpm [place] interval is 136 QRS is 80 QT interval 380 QTC is 443. EKG shows no ST segment elevation or depression. - Lab Data Result diagrams: 01/02/21 13:10 01/02/21 13:10 Lab Results 01/02/21 01/02/21 Range/Units 13:10 13:10 WBC 7.6 (3.8-10.6) k/uL RBC 4.36 (3.80-5.40) m/uL Hgb 13.1 (11.4-16.0) gm/dL Hct 38.7 (34.0-46.0) % MCV 88.9 (80.0-100.0) fL MCH 30.1 (25.0-35.0) pg MCHC 33.9 (31.0-37.0) g/dL RDW 12.9 (11.5-15.5) % Plt Count 262 (150-450) k/uL MPV 7.0 Neutrophils % 66 % Lymphocytes % 21 % Monocytes % 5 % Eosinophils % 7 % Basophils % 1 % Neutrophils # 5.0 (1.3-7.7) k/uL Lymphocytes # 1.6 (1.0-4.8) k/uL Monocytes # 0.3 (0-1.0) k/uL Eosinophils # 0.5 (0-0.7) k/uL Basophils # 0.1 (0-0.2) k/uL Sodium 138 (137-145) mmol/L Potassium 4.1 (3.5-5.1) mmol/L Chloride 109 H (98-107) mmol/L Carbon Dioxide 26 (22-30) mmol/L Anion Gap 3 mmol/L BUN 11 (7-17) mg/dL Creatinine 0.67 (0.52-1.04) mg/dL Est GFR (CKD-EPI)AfAm >90 (>60 ml/min/1.73 sqM) Est GFR (CKD-EPI)NonAf >90 (>60 ml/min/1.73 sqM) Glucose 114 H (74-99) mg/dL Calcium 8.4 (8.4-10.2) mg/dL Total Bilirubin 0.5 (0.2-1.3) mg/dL AST 68 H (14-36) U/L ALT 73 H (4-34) U/L Alkaline Phosphatase 121 (38-126) U/L Total Protein 5.9 L (6.3-8.2) g/dL Albumin 3.3 L (3.5-5.0) g/dL Disposition Clinical Impression: Abdominal pain Disposition: HOME SELF-CARE Instructions (If sedation given, give patient instructions): Abdominal Pain (ED) Is patient prescribed a controlled substance at d/c from ED?: No Referrals: Olvin Keenan MD [Primary Care Provider] - 1-2 days Time of Disposition: 14:28
[2021-01-02 13:30] LABS: Basophils # (A) 0.1 k/uL (0-0.2); Basophils % (A) 1 %; Eosinophils # (A) 0.5 k/uL (0-0.7); Eosinophils % (A) 7 %; HCT 38.7 % (34.0-46.0); HGB 13.1 gm/dL (11.4-16.0); Lymphocytes # (A) 1.6 k/uL (1.0-4.8); Lymphocytes % (A) 21 %; MCH 30.1 pg (25.0-35.0); MCHC 33.9 g/dL (31.0-37.0); MCV 88.9 fL (80.0-100.0); Monocytes # (A) 0.3 k/uL (0-1.0); Monocytes % (A) 5 %; Neutrophils % (A) 66 %; Platelet Count 262 k/uL (150-450); RBC 4.36 m/uL (3.80-5.40); RDW 12.9 % (11.5-15.5); WBC 7.6 k/uL (3.8-10.6)
[2021-01-02 13:42] LABS: ALT 73 U/L (4-34); AST 68 U/L (14-36); African American GFR (CKD) >90 (>60 ml/min/1.73 sqM); Albumin 3.3 g/dL (3.5-5.0); Alkaline Phosphatase 121 U/L (38-126); Anion Gap 3 mmol/L; Blood Urea Nitrogen 11 mg/dL (7-17); Calcium 8.4 mg/dL (8.4-10.2); Carbon Dioxide 26 mmol/L (22-30); Chloride 109 mmol/L (98-107); Glucose 114 mg/dL (74-99); Non-African American GFR(CKD) >90 (>60 ml/min/1.73 sqM); Potassium 4.1 mmol/L (3.5-5.1); Sodium 138 mmol/L (137-145); Total Bilirubin 0.5 mg/dL (0.2-1.3); Total Protein 5.9 g/dL (6.3-8.2)
[2021-01-02 15:26] VITALS: BP 110/61; PULSE 73
== END 2021-01-02 15:25 | disposition home or self-care (01) ==
LOC: EC 12:24
DX: R10.9 Unspecified abdominal pain (principal); E11.9 Type 2 diabetes mellitus without complications; K21.9 Gastro-esophageal reflux disease without esophagitis; E78.5 Hyperlipidemia, unspecified; F41.9 Anxiety disorder, unspecified; F31.9 Bipolar disorder, unspecified; F43.12 Post-traumatic stress disorder, chronic; F12.90 Cannabis use, unspecified, uncomplicated; Z79.84 Long term (current) use of oral hypoglycemic drugs; Z87.442 Personal history of urinary calculi; Z90.49 Acquired absence of other specified parts of digestive tract; Z98.51 Tubal ligation status
CPT/HCPCS: 99284; 96374; 36415; 93005; 80053; 85025; J1790

== ENCOUNTER → 2021-01-16 | Outpatient (CLI) | payer OTHER ==
[2021-01-16 15:02] LABS: Basophils # (A) 0.07 X 10*3/uL (0.00-0.10); Basophils % (A) 0.9 %; Eosinophils % (A) 6.3 %; HCT 38.2 % (37.2-46.3); HGB 12.4 g/dL (12.0-15.0); Lymphocytes # (A) 1.59 X 10*3/uL (0.90-5.00); Lymphocytes % (A) 19.9 %; MCH 29.2 pg (27.0-32.0); MCHC 32.5 g/dL (32.0-37.0); MCV 89.9 fL (80.0-97.0); Mean Platelet Volume 9.8 fL (9.5-12.2); Monocytes # (A) 0.56 X 10*3/uL (0.20-1.00); Neutrophils # (A) 5.21 X 10*3/uL (1.80-7.70); Neutrophils % (A) 65.4 %; Platelet Count 257 X 10*3/uL (140-440); RBC 4.25 X 10*6/uL (4.10-5.20); RDW 12.9 % (11.5-14.5); WBC 7.97 X 10*3/uL (4.50-10.00)
[2021-01-16 19:02] LABS: Hemoglobin A1C 5.7 % (4.0-6.0)
[2021-01-16 20:20] LABS: African American GFR (CKD) 133.8 (60.0-200.0); Albumin 3.9 g/dL (3.80-4.90); Albumin/Globulin Ratio 1.77 (1.60-3.17); Anion Gap 8.5 mmol/L (4.00-12.00); BUN/Creat Ratio 18.57 Ratio (12.00-20.00); Calcium 8.9 mg/dL (8.7-10.3); Carbon Dioxide 26.5 mmol/L (21.6-31.8); Chol/HDL Ratio 4.53; Globulin 2.2 g/dL (1.6-3.3); LDL Cholesterol,Calculated 130.4 mg/dL (0.0-131.0); Non-African American GFR(CKD) 115.4 (60.0-200.0); Potassium 4.6 mmol/L (3.5-5.5); Total Bilirubin 0.7 mg/dL (0.2-1.2); Total Protein 6.1 g/dL (6.2-8.2); VLDL Calculation 21.6 mg/dL (5.00-40.00)
== END | disposition home or self-care (01) ==
LOC: LABWHC1 10:39
PROVIDERS: ATTEND Nurse Practitioner Family
DX: E11.9 Type 2 diabetes mellitus without complications (principal); R10.12 Left upper quadrant pain
CPT/HCPCS: 36415; 80053; 80061; 82150; 83036; 83690; 85025

== ENCOUNTER → 2021-01-24 | Outpatient (CLI) | payer OTHER ==
--- NOTE | 2021-01-24 09:04 | US ---
EXAMINATION TYPE: US abdomen complete DATE OF EXAM: 01/24/2021 COMPARISON: CT 01-01-21 CLINICAL HISTORY: left upper quadrant R10.12. Pain EXAM MEASUREMENTS: Liver Length: 19.1 cm Gallbladder Wall: Surgically absent CBD: 0.6 cm Spleen: 14.0 cm Right Kidney: 11.6x5.9x5.0 cm Left Kidney: 12.4x4.7x5.0 cm Pancreas: wnl Liver: Increased attenuation, decreased visualization of vessels suggestive of fatty infiltrate Gallbladder: Surgically absent CBD: wnl Spleen: Enlarged Right Kidney: wnl Left Kidney: wnl Upper IVC: wnl Abd Aorta: wnl Slightly enlarged MPV 1.5cm. Difficult exam due to body habitus. The intrahepatic portion of the IVC and proximal abdominal aorta are within normal limits. Common bi le duct is unremarkable. The visualized portions of the pancreas are homogenous. The spleen is unre markable. Kidneys are symmetric and free of hydronephrosis. No renal lesions are seen. IMPRESSION: Hepatic steatosis.
== END | disposition home or self-care (01) ==
LOC: RADUSWWP 08:12
PROVIDERS: ATTEND Family Medicine
DX: K76.0 Fatty (change of) liver, not elsewhere classified (principal)
CPT/HCPCS: 76700

== ENCOUNTER → 2021-02-16 | Outpatient (CLI) | payer OTHER ==
--- NOTE | 2021-02-16 11:31 | FL ---
ESOPHOGRAM. HISTORY: Dysphagia Esophagram was performed per the air contrast technique. The patient swallowed barium and effervesce nt crystals without difficulty or delay. Esophageal peristalsis and motility appear to be within normal limits. There is no evidence for filling defect, mass or diverticulum. No hiatal hernia seen. Subsequently single contrast cervical esophagram was performed which fails demonstrate evidence for a spiration penetration or mass. IMPRESSION: Unremarkable study.
== END | disposition home or self-care (01) ==
LOC: RADUSWWP 09:42
PROVIDERS: ATTEND Surgery Plastic and Reconstructive Surgery
DX: R13.10 Dysphagia, unspecified (principal)
CPT/HCPCS: 74220

== ENCOUNTER → 2021-04-03 | Outpatient (CLI) | payer OTHER ==
[2021-04-03 13:43] LABS: African American GFR (CKD) >90 (>60 ml/min/1.73 sqM); Blood Urea Nitrogen 11 mg/dL (7-17); Non-African American GFR(CKD) >90 (>60 ml/min/1.73 sqM)
--- NOTE | 2021-04-03 15:38 | CT ---
EXAMINATION TYPE: CT soft tissue neck w con DATE OF EXAM: 04/03/2021 COMPARISON: None HISTORY: Lymphadenopathy. CT DLP: 712.5 mGycm CONTRAST: Patient injected with 100ml mL of Isovue 300. TECHNIQUE: Axial images at 3 mm thick sections. Reconstructed images in the coronal plane and sagitt al plane are reviewed. FINDINGS: Limited CT sections are obtained the lung apices. The lung apices appear clear. CT neck: The torus tubarius and fossa of Rosenmuller are normal. Slat [employer] spaces are normal. Smal l amount of mucosal thickening is within the left maxillary sinus. Parotid glands appear normal and symmetrical. Submandibular glands, are normal. Parapharyngeal spac es are normal. No suspicious adenopathy is evident. Small left submandibular nodes are evident. Ther e are scattered shotty lymph nodes present. The hypopharynx appears within normal limits. Vocal cord level appear symmetrical. Thyroid as visualized is normal. Osseous structures are normal. IMPRESSIONS: 1. No suspicious enlarged lymphadenopathy within the field of view
--- NOTE | 2021-04-04 17:08 | CT ---
EXAMINATION TYPE: CT ChestAbdPelvis w con DATE OF EXAM: 04/03/2021 INDICATION: Lymphadenopathy. COMPARISON: 01/01/2021 CT DLP: 2922.3 mGycm CONTRAST: Performed with Oral Contrast and with IV Contrast, patient injected with 100ml mL of Isovue 300. TECHNIQUE: Axial images at 5 mm thick sections. Reconstructed images in the coronal plane. Delayed images through the kidneys. FINDINGS: CT CHEST: Portion of the thyroid visualized is normal. No suspicious lung nodules or focal infiltrates are present. No enlarged mediastinal or hilar adenopathy is evident. The ascending aorta diameter at the level of the main pulmonary artery is 2.5 cm. The main pulmonary artery diameter at the bifurcation is 2.[address] ABDOMEN: Liver: Mild diffuse fatty infiltration to the liver. Spleen: Normal Pancreas: Normal Adrenal glands: The adrenal glands are normal. Gallbladder: Surgically absent Kidneys: No masses are evident. No hydronephrosis is present. No cysts are present. Delayed images were obtained through the kidneys, which remain unremarkable. Aorta: Normal Inferior vena cava: Normal. CT PELVIS: Loops of bowel within the abdomen and pelvis are normal. There are loops of bowel which are incom pletely distended or lack oral contrast limiting their evaluation. Appendix: Not identified Urinary bladder: Normal. Genitourinary structures: Uterus appears normal. Adnexa are normal. No free fluid is within the pelvi s. Osseous structures: No suspicious lytic or sclerotic lesions. Lymphadenopathy: No suspicious enlarged lymphadenopathy is evident. IMPRESSIONS: 1. No suspicious changes to suggest recurrent adenopathy.
== END | disposition home or self-care (01) ==
LOC: RADCTMAIN 12:43
PROVIDERS: ATTEND Internal Medicine Hematology & Oncology
DX: R59.0 Localized enlarged lymph nodes (principal)
CPT/HCPCS: 82565; 84520; 70491; 71260; 74177; 36415; Q9967

== ENCOUNTER 2022-02-17 23:11 | Emergency (ER) | payer OTHER ==
[2022-02-18 01:38] VITALS: RESP 16
[2022-02-18] MEDS ORDERED: SODIUM CHLORIDE 0.9% 500 ML 500 ML IV STA (01:50)
[2022-02-18] MEDS ORDERED: HYDROmorphone 0.5 MG/0.5 ML SYRINGE IVP STA (01:51)
[2022-02-18] MEDS ORDERED: PANTOPRAZOLE 40 MG/10 ML VIAL IVP STA (01:51)
--- NOTE | 2022-02-18 01:56 | ED ---
Abdominal Pain HPI - General Chief Complaint: Abdominal Pain Stated Complaint: Abd Pain Time Seen by Provider: 02/18/22 01:34 Source: patient, family, RN notes reviewed, old records reviewed Mode of arrival: ambulatory Limitations: no limitations - History of Present Illness Initial Comments: 31-year-old female alert and oriented 4 presents to the emergency room with complaints of abdominal pain. Patient was seen at Hospital on Friday for abdominal pain was found to have a urinary tract infection and put on Augmentin. Patient continued to have pain and discomfort and left [facility] on Friday had a CAT scan and was found to have appendicitis. She is transferred to [facility] on Friday and scheduled for surgery. Patient states that the surgeon came in and said that since she had eaten half a euro she was unable to have surgery discharged her home on antibiotics. She is here for a second opinion and she is concerned that she may have appendicitis and need to have surgery if she continues to have abdominal pain. MD Complaint: abdominal pain -: days(s) (4) Location: diffuse Severity scale (1-10): 8 Quality: fullness Consistency: constant Improves With: nothing Worsens With: movement Associated Symptoms: nausea - Related Data Home Medications Medication Instructions Recorded Confirmed Pravastatin Sodium [Pravachol] 20 mg PO HS 01/20/18 01/02/21 LORazepam [Ativan] 1 mg PO HS PRN 11/24/18 01/02/21 buPROPion HCL [Wellbutrin XL] 300 mg PO DAILY 12/15/19 01/02/21 traZODone HCL 50 mg PO HS 12/15/19 01/02/21 ARIPiprazole 20 mg PO HS 01/09/20 01/02/21 ARIPiprazole [Abilify] 5 mg PO DAILY 01/09/20 01/02/21 Topiramate 50 mg PO HS 01/09/20 01/02/21 busPIRone HCL 15 mg PO TID 01/09/20 01/02/21 Amitriptyline HCl [Elavil] 75 mg PO BID 01/24/20 01/02/21 Verapamil HCl [Verapamil ER] 180 mg PO HS 01/24/20 01/02/21 Gabapentin 600 mg PO TID 02/20/20 01/02/21 OXcarbazepine [Oxtellar Xr] 150 mg PO HS 02/27/20 01/02/21 hydroCHLOROthiazide 25 mg PO DAILY 03/15/20 01/02/21 metFORMIN HCL 500 mg PO DAILY 07/25/20 01/02/21 SUMAtriptan succinate [Imitrex] 50 mg PO DAILY PRN 12/26/20 01/02/21 Prochlorperazine [Compazine] 10 mg PO Q8H PRN 01/02/21 01/02/21 Previous Rx's Medication Instructions Recorded Lidocaine 5% Patch [Lidoderm] 1 patch TOPICAL DAILY #5 patch 12/27/20 valACYclovir HCL [Valtrex] 1,000 mg PO Q8HR #21 tab 12/27/20 Dicyclomine [Bentyl] 20 mg PO TID PRN #20 tablet 01/01/21 Famotidine [Pepcid] 20 mg PO BID #30 tablet 01/01/21 Allergies Allergy/AdvReac Type Severity Reaction Status Date / Time NSAIDS (Non-Steroidal AdvReac Pt. states Verified 02/17/22 23:30 Anti-Inflamma NSAIDS have given her a GI bleed in the past. Review of Systems ROS Statement: Those systems with pertinent positive or pertinent negative responses have been documented in the HPI. ROS Other: All systems not noted in ROS Statement are negative. Past Medical History Past Medical History: Diabetes Mellitus, Fibromyalgia, GERD/Reflux, GI Bleed, Hyperlipidemia Additional Past Medical History / Comment(s): gallstones, kidney stones, IBS, migraines, tachycardia, Martine- Guevara tear, blood clot, pesudo tumor cerebrea History of Any Multi-Drug Resistant Organisms: None Reported Past Surgical History: Section, Cholecystectomy, Tubal Ligation Additional Past Surgical History / Comment(s): neck biopsy (lymph node ) d&c; LP shunt May 13 2019 feb 0211/2019 -revision, stent/ lithotripsy on left, cystoscopy, shunt revises july 28. Past Anesthesia/Blood Transfusion Reactions: No Reported Reaction Past Psychological History: Anxiety, Bipolar, Depression, PTSD Smoking Status: Vaper Past Alcohol Use History: Rare Past Drug Use History: Marijuana - Past Family History Mother Family Medical History: Diabetes Mellitus, Hyperlipidemia, Hypertension, Myocardial Infarction (DE) Additional Family Medical History / Comment(s): DE X 3 Father Family Medical History: Congestive Heart Failure (CHF), Hyperlipidemia, Hypertension, Myocardial Infarction (DE) Additional Family Medical History / Comment(s): mi x 3 Son(s) Family Medical History: No Reported History General Exam Limitations: no limitations General appearance: alert, in no apparent distress Head exam: Present: atraumatic Eye exam: Absent: scleral icterus, periorbital swelling Respiratory exam: Present: normal lung sounds bilaterally. Absent: respiratory distress, wheezes, rales, rhonchi, stridor, chest wall tenderness, accessory muscle use Cardiovascular Exam: Present: tachycardia GI/Abdominal exam: Present: soft, tenderness (Mildly tender diffusely no significant right lower quadrant pain). Absent: distended, guarding, rebound, rigid Extremities exam: Present: normal inspection, full ROM, normal capillary refill. Absent: tenderness, pedal edema, calf tenderness Back exam: Absent: tenderness, CVA tenderness (R), CVA tenderness (L), rash noted Neurological exam: Present: alert, oriented X3, normal gait Psychiatric exam: Present: normal affect, normal mood Skin exam: Present: warm, dry, normal color. Absent: cyanosis, diaphoretic, p etechiae, pallor Course Vital Signs 02/17/22 02/18/22 02/18/22 23:27 01:37 02:08 Temperature 99 F 97.8 F Pulse Rate 104 H 92 80 Respiratory 20 16 16 Rate Blood Pressure 123/59 144/81 133/72 O2 Sat by Pulse 99 97 96 Oximetry - Reevaluation(s) Reevaluation #1: 02/18/22 02:53 Patient reports that she was scheduled to have surgery Friday morning for appendectomy and was discharged home instead because she had eaten half a gyro sandwich. Attempts made to obtain labs and records from [facility] with no results. Labs today show no evidence of leukocytosis and patient has minimal abdominal tenderness on exam. Lab results discussed with patient and she is agreeable to having a repeat CT scan. Time: 02:53 Reevaluation #2: 02/18/22 03:25 Records obtained from [facility]. Patient was discharged on 02/17 at 915 a.m. with acute abdominal pain. White cell count was 9.6. Ultrasound pelvis done, unremarkable pelvic ultrasound. X-ray of the chest was unremarkable. CT abdomen and pelvis could not rule out appendicitis as appendix was not visualized. Liver stomach spleen kidneys and pancreas were unremarkable. Air and stool in colon. Gallbladder absent. Serial abdominal exams were performed. Documentation states patient without significant guarding or rebound tenderness. Surgical attending proposed outpatient follow-up for repeat evaluation on Friday with Fili Babb. Post symptoms were not related to appendicitis. Final decision was patient was discharged home with outpatient follow-up in stable condition. She was prescribed Cipro 500 mg twice a day and Flagyl 500 mg 3 times a day. 02/18/22 03:37 Time: 03:25 Medical Decision Making - Medical Decision Making Patient presents with abdominal pain concerned for appendicitis. She states that she was discharged from [facility] yesterday after being diagnosed with appendicitis. Medical records were obtained showing negative pelvic ultrasound, negative chest x-ray and abdominal CT that was unable to visual appendix. General surgery seen patient and was not concerned for appendicitis however patient was placed on Cipro and Flagyl and directed to follow up with the surgeon on Friday for follow-up. Labs were repeated here showing no evidence of leukocytosis. CT repeated showing no evidence of appendicitis. Patient has had no fevers. Abdomen is mildly tender with no right lower quadrant pain, no rebound tenderness, no rigidity. Vital signs are stable. Patient does have a history of diabetes, fibromyalgia, irritable bowel syndrome, migraine headaches, anxiety, bipolar, depression, PTSD, Pseudotumor cerebri with shunt, cholecystectomy and tubal ligation. She was directed to take antibiotics as prescribed by the surgeon and follow-up with him in the office on Friday as directed. Return to the emergency room with any new or concerning symptoms including fever, increased abdominal pain or persistent nausea vomiting. Case discussed with Dr. Osman. - Lab Data Result diagrams: 02/18/22 01:53 02/18/22 01:53 Lab Results 02/18/22 02/18/22 02/18/22 Range/Units 01:53 01:53 01:53 WBC 10.5 (3.8-10.6) k/uL RBC 4.41 (3.80-5.40) m/uL Hgb 12.2 (11.4-16.0) gm/dL Hct 37.3 (34.0-46.0) % MCV 84.5 (80.0-100.0) fL MCH 27.6 (25.0-35.0) pg MCHC 32.7 (31.0-37.0) g/dL RDW 13.8 (11.5-15.5) % Plt Count 324 (150-450) k/uL MPV 7.7 Neutrophils % 58 % Lymphocytes % 29 % Monocytes % 4 % Eosinophils % 7 % Basophils % 1 % Neutrophils # 6.1 (1.3-7.7) k/uL Lymphocytes # 3.1 (1.0-4.8) k/uL Monocytes # 0.4 (0-1.0) k/uL Eosinophils # 0.7 (0-0.7) k/uL Basophils # 0.1 (0-0.2) k/uL PT 9.7 (9.0-12.0) sec INR 0.9 (<1.2) APTT 22.8 (22.0-30.0) sec Sodium 140 (137-145) mmol/L Potassium 4.1 (3.5-5.1) mmol/L Chloride 104 (98-107) mmol/L Carbon Dioxide 27 (22-30) mmol/L Anion Gap 9 mmol/L BUN 13 (7-17) mg/dL Creatinine 0.65 (0.52-1.04) mg/dL Est GFR (CKD-EPI)AfAm >90 (>60 ml/min/1.73 sqM) Est GFR (CKD-EPI)NonAf >90 (>60 ml/min/1.73 sqM) Glucose 136 H (74-99) mg/dL Plasma Lactic Acid Darnell (0.7-2.0) mmol/L Calcium 8.8 (8.4-10.2) mg/dL Total Bilirubin 0.6 (0.2-1.3) mg/dL AST 35 (14-36) U/L ALT 56 H (4-34) U/L Alkaline Phosphatase 128 H (38-126) U/L Total Protein 6.5 (6.3-8.2) g/dL Albumin 3.8 (3.5-5.0) g/dL Amylase 36 (30-110) U/L Lipase 49 (23-300) U/L Urine Color Urine Appearance (Clear) Urine pH (5.0-8.0) Ur Specific Rossiter (1.001-1.035) Urine Protein (Negative) Urine Glucose (UA) (Negative) Urine Ketones (Negative) Urine Blood (Negative) Urine Nitrite (Negative) Urine Bilirubin (Negative) Urine Urobilinogen (<2.0) mg/dL Ur Leukocyte Esterase (Negative) Urine HCG, Qual (Not Detectd) 02/18/22 02/18/22 02/18/22 Range/Units 01:53 02:08 02:08 WBC (3.8-10.6) k/uL RBC (3.80-5.40) m/uL Hgb (11.4-16.0) gm/dL Hct (34.0-46.0) % MCV (80.0-100.0) fL MCH (25.0-35.0) pg MCHC (31.0-37.0) g/dL RDW (11.5-15.5) % Plt Count (150-450) k/uL MPV Neutrophils % % Lymphocytes % % Monocytes % % Eosinophils % % Basophils % % Neutrophils # (1.3-7.7) k/uL Lymphocytes # (1.0-4.8) k/uL Monocytes # (0-1.0) k/uL Eosinophils # (0-0.7) k/uL Basophils # (0-0.2) k/uL PT (9.0-12.0) sec INR (<1.2) APTT (22.0-30.0) sec Sodium (137-145) mmol/L Potassium (3.5-5.1) mmol/L Chloride (98-107) mmol/L Carbon Dioxide (22-30) mmol/L Anion Gap mmol/L BUN (7-17) mg/dL Creatinine (0.52-1.04) mg/dL Est GFR (CKD-EPI)AfAm (>60 ml/min/1.73 sqM) Est GFR (CKD-EPI)NonAf (>60 ml/min/1.73 sqM) Glucose (74-99) mg/dL Plasma Lactic Acid Darnell 1.0 (0.7-2.0) mmol/L Calcium (8.4-10.2) mg/dL Total Bilirubin (0.2-1.3) mg/dL AST (14-36) U/L ALT (4-34) U/L Alkaline Phosphatase (38-126) U/L Total Protein (6.3-8.2) g/dL Albumin (3.5-5.0) g/dL Amylase (30-110) U/L Lipase (23-300) U/L Urine Color Yellow Urine Appearance Clear (Clear) Urine pH 6.0 (5.0-8.0) Ur Specific Rossiter 1.031 (1.001-1.035) Urine Protein Trace H (Negative) Urine Glucose (UA) Negative (Negative) Urine Ketones Negative (Negative) Urine Blood Negative (Negative) Urine Nitrite Negative (Negative) Urine Bilirubin Negative (Negative) Urine Urobilinogen 2.0 (<2.0) mg/dL Ur Leukocyte Esterase Negative (Negative) Urine HCG, Qual Not Detected (Not Detectd) Disposition Clinical Impression: Abdominal pain Disposition: HOME SELF-CARE Condition: Good Instructions (If sedation given, give patient instructions): Abdominal Pain (ED) Additional Instructions: Take antibiotics as prescribed by the surgeon and follow-up with him in the office on Friday as directed. Return to the emergency room with any new or concerning symptoms including fever, increased abdominal pain or persistent nausea vomiting. Is patient prescribed a controlled substance at d/c from ED?: No Referrals: Olvin Keenan MD [Primary Care Provider] - 1-2 days Time of Disposition: 04:30
[2022-02-18 02:20] LABS: Basophils # (A) 0.1 k/uL (0-0.2); Basophils % (A) 1 %; Eosinophils # (A) 0.7 k/uL (0-0.7); Eosinophils % (A) 7 %; HCT 37.3 % (34.0-46.0); HGB 12.2 gm/dL (11.4-16.0); Lymphocytes # (A) 3.1 k/uL (1.0-4.8); Lymphocytes % (A) 29 %; MCH 27.6 pg (25.0-35.0); MCHC 32.7 g/dL (31.0-37.0); MCV 84.5 fL (80.0-100.0); Mean Platelet Volume 7.7; Monocytes # (A) 0.4 k/uL (0-1.0); Monocytes % (A) 4 %; Neutrophils # (A) 6.1 k/uL (1.3-7.7); Neutrophils % (A) 58 %; Platelet Count 324 k/uL (150-450); RBC 4.41 m/uL (3.80-5.40); RDW 13.8 % (11.5-15.5); WBC 10.5 k/uL (3.8-10.6)
[2022-02-18] MEDS ORDERED: ONDANSETRON 4 MG/2 ML VIAL IVP STA (02:31)
[2022-02-18 02:32] LABS: Appearance,Urine Clear (Clear); Bilirubin,Urine Negative (Negative); Blood,Urine Negative (Negative); Color,Urine Yellow; Glucose,Urine (UA) Negative (Negative); Ketones,Urine Negative (Negative); Leukocyte Esterase,Urine Negative (Negative); Nitrite,Urine Negative (Negative); Protein,Urine Trace (Negative); Specific Gravity,Urine 1.031 (1.001-1.035)
[2022-02-18 02:39] LABS: ALT 56 U/L (4-34); AST 35 U/L (14-36); African American GFR (CKD) >90 (>60 ml/min/1.73 sqM); Albumin 3.8 g/dL (3.5-5.0); Alkaline Phosphatase 128 U/L (38-126); Amylase 36 U/L (30-110); Anion Gap 9 mmol/L; Blood Urea Nitrogen 13 mg/dL (7-17); Calcium 8.8 mg/dL (8.4-10.2); Carbon Dioxide 27 mmol/L (22-30); Chloride 104 mmol/L (98-107); Glucose 136 mg/dL (74-99); Lipase 49 U/L (23-300); Non-African American GFR(CKD) >90 (>60 ml/min/1.73 sqM); Potassium 4.1 mmol/L (3.5-5.1); Sodium 140 mmol/L (137-145); Total Bilirubin 0.6 mg/dL (0.2-1.3); Total Protein 6.5 g/dL (6.3-8.2)
[2022-02-18 02:53] LABS: INR 0.9 (<1.2); Partial Thromboplastin Time 22.8 sec (22.0-30.0); Prothrombin Time 9.7 sec (9.0-12.0)
--- NOTE | 2022-02-18 04:18 | CT ---
EXAMINATION TYPE: CT abdomen pelvis w con DATE OF EXAM: 02/18/2022 COMPARISON: 02/16/2022 HISTORY: r/o appendicitis, pt had ct on friday at [facility]. rlq pain CT DLP: 2696 mGycm Automated exposure control for dose reduction was used. CONTRAST: Performed with IV Contrast, patient injected with 100 mL of Isovue 300. Images obtained from the diaphragm to the floor the pelvis with the IV contrast Lung bases are clear. No pleural effusion. Heart size is normal. No pericardial effusion. Liver spleen pancreas stomach appear intact. There are clips from cholecystectomy. The bile ducts are not dilated. There is no adrenal mass. Kidneys of normal size. No hydronephrosis. There is normal contrast opacifi cation of the kidneys. Ureters are not dilated. No retroperitoneal adenopathy. The bladder distends s moothly. Uterus is anteverted. There are clips from tubal ligation. No pelvic mass. There is small am ount of free fluid in the pelvis. No inguinal hernia. There is no mesenteric edema. No ascites or free air. No sign of a bowel obstruction. There is spinal catheter noted. Catheter drains into the peritoneum on the right side of the abdomen. There is no mesenteric edema. No ascites or free air. No sign of a bowel obstruction. Appendix not se en. No sign of thickened appendix. The lumbar vertebra have normal alignment. No compression fracture. Posterior elements are intact. Di sc spaces are fairly normal. Bony pelvis is intact. The hip joints are intact. IMPRESSION: Small amount of free fluid in the pelvis is consistent with the catheter or is physiologic appendix n ot seen. No significant abnormality. No adverse change compared to the old exam.
[2022-02-18 04:52] VITALS: BP 118/58; PULSE 84; TEMP 98.2
== END 2022-02-18 04:54 | disposition home or self-care (01) ==
LOC: EC 23:11
DX: R10.9 Unspecified abdominal pain (principal); F17.290 Nicotine dependence, other tobacco product, uncomplicated; E11.9 Type 2 diabetes mellitus without complications; K21.9 Gastro-esophageal reflux disease without esophagitis; E78.5 Hyperlipidemia, unspecified; F41.9 Anxiety disorder, unspecified; F32.A Depression, unspecified; F12.90 Cannabis use, unspecified, uncomplicated; Z79.84 Long term (current) use of oral hypoglycemic drugs; Z79.899 Other long term (current) drug therapy; Z88.6 Allergy status to analgesic agent
CPT/HCPCS: 36415; 80053; 82150; 83605; 83690; 85025; 85610; 85730; 81003; 81025; 74177; 99284; 96374; 96375 ×2; J2405; C9113; J1170

== ENCOUNTER 2022-03-23 01:28 | Emergency (ER) | payer OTHER ==
[2022-03-23 01:32] VITALS: PULSE 95; TEMP 98.5
[2022-03-23] MEDS ORDERED: ONDANSETRON 4 MG/2 ML VIAL IVP STA (01:51)
[2022-03-23] MEDS ORDERED: SODIUM CHLORIDE 0.9% 1,000 ML IV STA (01:51)
[2022-03-23] MEDS ORDERED: MORPHINE SULFATE 2 MG/ML SYRINGE IVP STA (01:51)
--- NOTE | 2022-03-23 01:53 | ED ---
General Adult HPI - General Chief complaint: Abdominal Pain Stated complaint: Abd Pain Time Seen by Provider: 03/23/22 01:34 Source: patient, RN notes reviewed Mode of arrival: ambulatory Limitations: no limitations - History of Present Illness Initial comments: 32-year-old female presents to the emergency Department with complaints of diffuse abdominal pain, onset 1 hour prior to arrival. Patient describes the pain is sharp and stabbing in quality. It is nonlocalized and unchanged with palpation. Patient states when the pain began it dropped her to her knees. States it is accompanied by nausea, but no vomiting. Did not take anything to treat her symptoms prior to arrival. Denies fever, chills, headache, chest pain, shortness of breath, flank pain, back pain, diarrhea, dysuria, hematuria, and . - Related Data Home Medications Medication Instructions Recorded Confirmed Pravastatin Sodium [Pravachol] 20 mg PO HS 01/20/18 01/02/21 LORazepam [Ativan] 1 mg PO HS PRN 11/24/18 01/02/21 buPROPion HCL [Wellbutrin XL] 300 mg PO DAILY 12/15/19 01/02/21 traZODone HCL 50 mg PO HS 12/15/19 01/02/21 ARIPiprazole 20 mg PO HS 01/09/20 01/02/21 ARIPiprazole [Abilify] 5 mg PO DAILY 01/09/20 01/02/21 Topiramate 50 mg PO HS 01/09/20 01/02/21 busPIRone HCL 15 mg PO TID 01/09/20 01/02/21 Amitriptyline HCl [Elavil] 75 mg PO BID 01/24/20 01/02/21 Verapamil HCl [Verapamil ER] 180 mg PO HS 01/24/20 01/02/21 Gabapentin 600 mg PO TID 02/20/20 01/02/21 OXcarbazepine [Oxtellar Xr] 150 mg PO HS 02/27/20 01/02/21 hydroCHLOROthiazide 25 mg PO DAILY 03/15/20 01/02/21 metFORMIN HCL 500 mg PO DAILY 07/25/20 01/02/21 SUMAtriptan succinate [Imitrex] 50 mg PO DAILY PRN 12/26/20 01/02/21 Prochlorperazine [Compazine] 10 mg PO Q8H PRN 01/02/21 01/02/21 Previous Rx's Medication Instructions Recorded Lidocaine 5% Patch [Lidoderm] 1 patch TOPICAL DAILY #5 patch 12/27/20 valACYclovir HCL [Valtrex] 1,000 mg PO Q8HR #21 tab 12/27/20 Dicyclomine [Bentyl] 20 mg PO TID PRN #20 tablet 01/01/21 Famotidine [Pepcid] 20 mg PO BID #30 tablet 01/01/21 Allergies Allergy/AdvReac Type Severity Reaction Status Date / Time NSAIDS (Non-Steroidal AdvReac Pt. states Verified 02/17/22 23:30 Anti-Inflamma NSAIDS have given her a GI bleed in the past. Review of Systems ROS Statement: Those systems with pertinent positive or pertinent negative responses have been documented in the HPI. ROS Other: All systems not noted in ROS Statement are negative. Past Medical History Past Medical History: Diabetes Mellitus, Fibromyalgia, GERD/Reflux, GI Bleed, Hyperlipidemia Additional Past Medical History / Comment(s): gallstones, kidney stones, IBS, migraines, tachycardia, Martine- Guevara tear, blood clot, pesudo tumor cerebrea History of Any Multi-Drug Resistant Organisms: None Reported Past Surgical History: Section, Cholecystectomy, Tubal Ligation Additional Past Surgical History / Comment(s): neck biopsy (lymph node ) d&c; LP shunt May 13 2019 feb 0211/2019 -revision, stent/ lithotripsy on left, cystoscopy, shunt revises july 28. Past Anesthesia/Blood Transfusion Reactions: No Reported Reaction Past Psychological History: Anxiety, Bipolar, Depression, PTSD Smoking Status: Vaper Past Alcohol Use History: Rare Past Drug Use History: Marijuana - Past Family History Mother Family Medical History: Diabetes Mellitus, Hyperlipidemia, Hypertension, Myocardial Infarction ([place]) Additional Family Medical History / Comment(s): [place] X 3 Father Family Medical History: Congestive Heart Failure (CHF), Hyperlipidemia, Hypertension, Myocardial Infarction ([place]) Additional Family Medical History / Comment(s): mi x 3 Son(s) Family Medical History: No Reported History General Exam Limitations: no limitations (Well-developed, well-nourished female in no acute distress. Does rate her pain 9 out of 10 though is able to distract herself by playing on her phone. Vital signs are stable.) General appearance: alert, in no apparent distress ENT exam: Present: normal oropharynx, mucous membranes moist Respiratory exam: Present: normal lung sounds bilaterally. Absent: respiratory distress, wheezes, rales, rhonchi, stridor, chest wall tenderness Cardiovascular Exam: Present: regular rate, normal rhythm, normal heart sounds. Absent: systolic murmur, diastolic murmur, rubs, gallop, clicks GI/Abdominal exam: Present: soft, normal bowel sounds, other (c/o pain extending from the ribs to the pelvis. Abdomen is soft with no rebound pain or guarding. No tenderness with gentle palpation.). Absent: distended, tenderness, guarding, rebound, rigid Extremities exam: Present: normal inspection, full ROM, normal capillary refill Back exam: Absent: CVA tenderness (R), CVA tenderness (L) Neurological exam: Present: alert, oriented X3 Psychiatric exam: Present: normal affect, normal mood Skin exam: Present: warm, dry, intact, normal color. Absent: rash Course Vital Signs 03/23/22 03/23/22 01:30 04:32 Temperature 98.5 F Pulse Rate 95 95 Respiratory 19 16 Rate Blood Pressure 109/63 111/54 O2 Sat by Pulse 98 97 Oximetry - Reevaluation(s) Reevaluation #1: 03/23/22 03:13 Upon reassessment, patient states pain is somewhat improved though persists and remains nonlocalized. Discussed laboratory findings resulted at this point. Reminded to provide a urine sample. The patient's medical record was reviewed. Patient has had multiple visits for abdominal pain. Discussed the concerns with having had 3 CTs in the past month. Will reevaluate after remainder of laboratory studies are resulted. 03/23/22 04:12 Laboratory studies are consistent with baseline for patient. An additional dose of pain medicine was given and patient reports some improvement. Pain remains non-localized with a soft abdomen that is non-peritoneal. She will be discharged home to follow up with her PCP for a recheck on Friday. Return parameters discussed in detail. Patient verbalizes understanding and agrees with this plan. 03/23/22 04:44 Upon reassessment, patient reports pain is significantly improved. We will proceed with discharge home to follow up with her PCP. Medical Decision Making - Medical Decision Making This is a 32-year-old female with a history of diabetes, GERD, IBS, and fibromyalgia who presents to the emergency department with complaints of generalized discomfort. Upon exam, patient is well-appearing and in no acute distress. Vital signs are stable. Laboratory studies were obtained. No leukocytosis. Liver enzymes are mildly elevated which is baseline for patient. Urinalysis is negative. Tolerating oral intake. Patient has had multiple abdominal studies recently and she expresses concern for appendicitis. Given t hat her pain is not localized and there is no leukocytosis or fever, I feel like this is very unlikely. I discussed my concerns with patient and she verbalizes understanding. She was given fluids, pain medicine, nausea medicine with improvement. She'll be discharged home to follow up with her PCP for recheck. Strict return parameters were discussed in detail. Patient verbalizes understanding and agrees with this plan. Attending: Jacqui. - Lab Data Result diagrams: 03/23/22 02:27 03/23/22 02:27 Lab Results 03/23/22 03/23/22 03/23/22 Range/Units 02:27 02: 02:27 WBC 10.1 (3.8-10.6) k/uL RBC 4.43 (3.80-5.40) m/uL Hgb 12.3 (11.4-16.0) gm/dL Hct 37.4 (34.0-46.0) % MCV 84.4 (80.0-100.0) fL MCH 27.7 (25.0-35.0) pg MCHC 32.8 (31.0-37.0) g/dL RDW 13.3 (11.5-15.5) % Plt Count 266 (150-450) k/uL MPV 7.6 Neutrophils % 60 % Lymphocytes % 26 % Monocytes % 4 % Eosinophils % 7 % Basophils % 1 % Neutrophils # 6.1 (1.3-7.7) k/uL Lymphocytes # 2.7 (1.0-4.8) k/uL Monocytes # 0.4 (0-1.0) k/uL Eosinophils # 0.8 H (0-0.7) k/uL Basophils # 0.1 (0-0.2) k/uL Hypochromasia Slight Sodium 141 (137-145) mmol/L Potassium 4.2 (3.5-5.1) mmol/L Chloride 109 H (98-107) mmol/L Carbon Dioxide 25 (22-30) mmol/L Anion Gap 7 mmol/L BUN 13 (7-17) mg/dL Creatinine 0.65 (0.52-1.04) mg/dL Est GFR (CKD-EPI)AfAm >90 (>60 ml/min/1.73 sqM) Est GFR (CKD-EPI)NonAf >90 (>60 ml/min/1.73 sqM) Glucose 163 H (74-99) mg/dL Plasma Lactic Acid Darnell 1.9 (0.7-2.0) mmol/L Calcium 8.6 (8.4-10.2) mg/dL Total Bilirubin 0.3 (0.2-1.3) mg/dL AST 41 H (14-36) U/L ALT 57 H (4-34) U/L Alkaline Phosphatase 135 H (38-126) U/L Total Protein 6.3 (6.3-8.2) g/dL Albumin 3.7 (3.5-5.0) g/dL Amylase 43 (30-110) U/L Lipase 78 (23-300) U/L Urine Color Urine Appearance (Clear) Urine pH (5.0-8.0) Ur Specific [place] (1.001-1.035) Urine Protein (Negative) Urine Glucose (UA) (Negative) Urine Ketones (Negative) Urine Blood (Negative) Urine Nitrite (Negative) Urine Bilirubin (Negative) Urine Urobilinogen (<2.0) mg/dL Ur Leukocyte Esterase (Negative) Urine RBC (0-5) /hpf Urine WBC (0-5) /hpf Ur Squamous Epith Cells (0-4) /hpf Urine Mucus (None) /hpf Urine HCG, Qual (Not Detectd) 03/23/22 03/23/22 Range/Units 03:26 03:26 WBC (3.8-10.6) k/uL RBC (3.80-5.40) m/uL Hgb (11.4-16.0) gm/dL Hct (34.0-46.0) % MCV (80.0-100.0) fL MCH (25.0-35.0) pg MCHC (31.0-37.0) g/dL RDW (11.5-15.5) % Plt Count (150-450) k/uL MPV Neutrophils % % Lymphocytes % % Monocytes % % Eosinophils % % Basophils % % Neutrophils # (1.3-7.7) k/uL Lymphocytes # (1.0-4.8) k/uL Monocytes # (0-1.0) k/uL Eosinophils # (0-0.7) k/uL Basophils # (0-0.2) k/uL Hypochromasia Sodium (137-145) mmol/L Potassium (3.5-5.1) mmol/L Chloride (98-107) mmol/L Carbon Dioxide (22-30) mmol/L Anion Gap mmol/L BUN (7-17) mg/dL Creatinine (0.52-1.04) mg/dL Est GFR (CKD-EPI)AfAm (>60 ml/min/1.73 sqM) Est GFR (CKD-EPI)NonAf (>60 ml/min/1.73 sqM) Glucose (74-99) mg/dL Plasma Lactic Acid [place] (0.7-2.0) mmol/L Calcium (8.4-10.2) mg/dL Total Bilirubin (0.2-1.3) mg/dL AST (14-36) U/L ALT (4-34) U/L Alkaline Phosphatase (38-126) U/L Total Protein (6.3-8.2) g/dL Albumin (3.5-5.0) g/dL Amylase (30-110) U/L Lipase (23-300) U/L Urine Color Yellow Urine Appearance Clear (Clear) Urine pH 6.0 (5.0-8.0) Ur Specific [place] 1.031 (1.001-1.035) Urine Protein Trace H (Negative) Urine Glucose (UA) Negative (Negative) Urine Ketones Trace H (Negative) Urine Blood Trace H (Negative) Urine Nitrite Negative (Negative) Urine Bilirubin Negative (Negative) Urine Urobilinogen <2.0 (<2.0) mg/dL Ur Leukocyte Esterase Negative (Negative) Urine RBC <1 (0-5) /hpf Urine WBC 1 (0-5) /hpf Ur Squamous Epith Cells 3 (0-4) /hpf Urine Mucus Few H (None) /hpf Urine HCG, Qual Not Detected (Not Detectd) Disposition Clinical Impression: Abdominal pain Disposition: HOME SELF-CARE Condition: Stable Instructions (If sedation given, give patient instructions): Abdominal Pain (ED) Additional Instructions: Continue taking your home medications as prescribed. Increase your intake of fluids. Follow-up with your PCP for a recheck on Friday. Return to the emergency department with any new, worsening, or concerning sympt oms. Is patient prescribed a controlled substance at d/c from ED?: No Referrals: Olvin Keenan MD [Primary Care Provider] - 1-2 days Time of Disposition: 04:44
[2022-03-23 02:45] LABS: Basophils # (A) 0.1 k/uL (0-0.2); Basophils % (A) 1 %; Eosinophils # (A) 0.8 k/uL (0-0.7); Eosinophils % (A) 7 %; HCT 37.4 % (34.0-46.0); HGB 12.3 gm/dL (11.4-16.0); Hypochromasia Slight; Lymphocytes # (A) 2.7 k/uL (1.0-4.8); Lymphocytes % (A) 26 %; MCH 27.7 pg (25.0-35.0); MCHC 32.8 g/dL (31.0-37.0); MCV 84.4 fL (80.0-100.0); Mean Platelet Volume 7.6; Monocytes # (A) 0.4 k/uL (0-1.0); Monocytes % (A) 4 %; Neutrophils # (A) 6.1 k/uL (1.3-7.7); Neutrophils % (A) 60 %; Platelet Count 266 k/uL (150-450); RBC 4.43 m/uL (3.80-5.40); RDW 13.3 % (11.5-15.5); WBC 10.1 k/uL (3.8-10.6)
[2022-03-23 03:13] LABS: ALT 57 U/L (4-34); AST 41 U/L (14-36); African American GFR (CKD) >90 (>60 ml/min/1.73 sqM); Albumin 3.7 g/dL (3.5-5.0); Alkaline Phosphatase 135 U/L (38-126); Amylase 43 U/L (30-110); Anion Gap 7 mmol/L; Blood Urea Nitrogen 13 mg/dL (7-17); Calcium 8.6 mg/dL (8.4-10.2); Carbon Dioxide 25 mmol/L (22-30); Chloride 109 mmol/L (98-107); Glucose 163 mg/dL (74-99); Lipase 78 U/L (23-300); Non-African American GFR(CKD) >90 (>60 ml/min/1.73 sqM); Potassium 4.2 mmol/L (3.5-5.1); Sodium 141 mmol/L (137-145); Total Bilirubin 0.3 mg/dL (0.2-1.3); Total Protein 6.3 g/dL (6.3-8.2)
[2022-03-23 03:39] LABS: Appearance,Urine Clear (Clear); Bilirubin,Urine Negative (Negative); Blood,Urine Trace (Negative); Color,Urine Yellow; Glucose,Urine (UA) Negative (Negative); Ketones,Urine Trace (Negative); Leukocyte Esterase,Urine Negative (Negative); Mucus,Urine Few /hpf; Nitrite,Urine Negative (Negative); Protein,Urine Trace (Negative); RBC,Urine <1 /hpf (0-5); Specific Gravity,Urine 1.031 (1.001-1.035); Squamous Epithelial Cell,Urine 3 /hpf (0-4); Urobilinogen,Urine <2.0 mg/dL (<2.0); WBC,Urine 1 /hpf (0-5)
[2022-03-23] MEDS ORDERED: MORPHINE SULFATE 4 MG/ML SYRINGE IVP STA (03:42)
[2022-03-23 04:33] VITALS: BP 111/54; RESP 16
== END 2022-03-23 04:55 | disposition home or self-care (01) ==
LOC: EC 01:28
DX: R10.9 Unspecified abdominal pain (principal); E11.9 Type 2 diabetes mellitus without complications; E78.5 Hyperlipidemia, unspecified; F17.290 Nicotine dependence, other tobacco product, uncomplicated; F12.90 Cannabis use, unspecified, uncomplicated; F31.9 Bipolar disorder, unspecified; F41.9 Anxiety disorder, unspecified; Z79.84 Long term (current) use of oral hypoglycemic drugs; Z88.6 Allergy status to analgesic agent
CPT/HCPCS: 36415; 80053; 82150; 83605; 83690; 85025; 81001; 81025; 99283; 96374; 96375; 96376; 96361 ×2; J2270 ×2; J2405

== ENCOUNTER 2022-03-25 21:18 | Emergency (ER) | payer OTHER ==
[2022-03-25 21:41] VITALS: TEMP 98
[2022-03-25 22:11] LABS: Basophils # (A) 0.1 k/uL (0-0.2); Basophils % (A) 1 %; Eosinophils # (A) 0.7 k/uL (0-0.7); Eosinophils % (A) 7 %; HCT 36.7 % (34.0-46.0); HGB 12.2 gm/dL (11.4-16.0); Lymphocytes # (A) 2.7 k/uL (1.0-4.8); Lymphocytes % (A) 25 %; MCH 27.6 pg (25.0-35.0); MCHC 33.3 g/dL (31.0-37.0); MCV 82.8 fL (80.0-100.0); Mean Platelet Volume 7.9; Monocytes # (A) 0.3 k/uL (0-1.0); Monocytes % (A) 3 %; Neutrophils # (A) 6.9 k/uL (1.3-7.7); Neutrophils % (A) 63 %; Platelet Count 302 k/uL (150-450); RBC 4.43 m/uL (3.80-5.40); WBC 10.9 k/uL (3.8-10.6)
[2022-03-25 22:20] LABS: ALT 55 U/L (4-34); AST 45 U/L (14-36); African American GFR (CKD) >90 (>60 ml/min/1.73 sqM); Albumin 3.9 g/dL (3.5-5.0); Alkaline Phosphatase 130 U/L (38-126); Amylase 63 U/L (30-110); Anion Gap 6 mmol/L; Blood Urea Nitrogen 13 mg/dL (7-17); Calcium 8.7 mg/dL (8.4-10.2); Carbon Dioxide 25 mmol/L (22-30); Chloride 106 mmol/L (98-107); Glucose 160 mg/dL (74-99); Lipase 593 U/L (23-300); Non-African American GFR(CKD) >90 (>60 ml/min/1.73 sqM); Potassium 3.6 mmol/L (3.5-5.1); Sodium 137 mmol/L (137-145); Total Bilirubin 0.5 mg/dL (0.2-1.3); Total Protein 6.5 g/dL (6.3-8.2)
[2022-03-25 22:21] LABS: Appearance,Urine Cloudy (Clear); Bilirubin,Urine Negative (Negative); Blood,Urine Negative (Negative); Color,Urine Yellow; Glucose,Urine (UA) Negative (Negative); Ketones,Urine Negative (Negative); Leukocyte Esterase,Urine Negative (Negative); Mucus,Urine Few /hpf; Nitrite,Urine Negative (Negative); Protein,Urine Negative (Negative); Specific Gravity,Urine 1.021 (1.001-1.035); Squamous Epithelial Cell,Urine 3 /hpf (0-4); Urobilinogen,Urine <2.0 mg/dL (<2.0); WBC,Urine <1 /hpf (0-5)
[2022-03-25 22:56] LABS: INR 0.9 (<1.2); Partial Thromboplastin Time 23.3 sec (22.0-30.0); Prothrombin Time 9.8 sec (9.0-12.0)
--- NOTE | 2022-03-25 23:12 | ED ---
Abdominal Pain HPI - General Chief Complaint: Abdominal Pain Stated Complaint: ABD Pain, Coffee round stool Time Seen by Provider: 03/25/22 22:51 Source: patient Mode of arrival: ambulatory Limitations: no limitations - History of Present Illness Initial Comments: 32-year-old female presents emergency department also reported lower abdominal pain. Patient states that she has had sharp, nonradiating abdominal pain since yesterday. Denies any provocative factors. Also reports to rectal pain with a bowel movement. Denies diarrhea, constipation or grossly bloody stools. Admits that her stools are dark in coloration. No iron or Pepto-Bismol use. Denies issues with urination to include hematuria, dysuria or difficulty voiding. Patient has been seen multiple times in the emergency department for similar complaints. He states that she has had an EGD which demonstrated gastritis. No history of peptic ulcers. Has never had a colonoscopy. No family history of inflammatory bowel disease. Denies fevers. No vaginal discharge or bleeding. Denies concern for . No other alleviating, precipitating or modifying factors - Related Data Home Medications Medication Instructions Recorded Confirmed Pravastatin Sodium [Pravachol] 20 mg PO HS 01/20/18 01/02/21 LORazepam [Ativan] 1 mg PO HS PRN 11/24/18 01/02/21 buPROPion HCL [Wellbutrin XL] 300 mg PO DAILY 12/15/19 01/02/21 traZODone HCL 50 mg PO HS 12/15/19 01/02/21 ARIPiprazole 20 mg PO HS 01/09/20 01/02/21 ARIPiprazole [Abilify] 5 mg PO DAILY 01/09/20 01/02/21 Topiramate 50 mg PO HS 01/09/20 01/02/21 busPIRone HCL 15 mg PO TID 01/09/20 01/02/21 Amitriptyline HCl [Elavil] 75 mg PO BID 01/24/20 01/02/21 Verapamil HCl [Verapamil ER] 180 mg PO HS 01/24/20 01/02/21 Gabapentin 600 mg PO TID 02/20/20 01/02/21 OXcarbazepine [Oxtellar Xr] 150 mg PO HS 02/27/20 01/02/21 hydroCHLOROthiazide 25 mg PO DAILY 03/15/20 01/02/21 metFORMIN HCL 500 mg PO DAILY 07/25/20 01/02/21 SUMAtriptan succinate [Imitrex] 50 mg PO DAILY PRN 12/26/20 01/02/21 Prochlorperazine [Compazine] 10 mg PO Q8H PRN 01/02/21 01/02/21 Previous Rx's Medication Instructions Recorded Lidocaine 5% Patch [Lidoderm] 1 patch TOPICAL DAILY #5 patch 12/27/20 valACYclovir HCL [Valtrex] 1,000 mg PO Q8HR #21 tab 12/27/20 Dicyclomine [Bentyl] 20 mg PO TID PRN #20 tablet 01/01/21 Famotidine [Pepcid] 20 mg PO BID #30 tablet 01/01/21 Allergies Allergy/AdvReac Type Severity Reaction Status Date / Time NSAIDS (Non-Steroidal AdvReac Pt. states Verified 02/17/22 23:30 Anti-Inflamma NSAIDS have given her a GI bleed in the past. Review of Systems ROS Statement: Those systems with pertinent positive or pertinent negative responses have been documented in the HPI. ROS Other: All systems not noted in ROS Statement are negative. Past Medical History Past Medical History: Diabetes Mellitus, Fibromyalgia, GERD/Reflux, GI Bleed, Hyperlipidemia Additional Past Medical History / Comment(s): gallstones, kidney stones, IBS, migraines, tachycardia, Martine- Guevara tear, blood clot, pesudo tumor cerebrea History of Any Multi-Drug Resistant Organisms: None Reported Past Surgical History: Section, Cholecystectomy, Tubal Ligation Additional Past Surgical History / Comment(s): neck biopsy (lymph node ) d&c; LP shunt May 13 2019 feb 0211/2019 -revision, stent/ lithotripsy on left, cystoscopy, shunt revises july 28. Past Anesthesia/Blood Transfusion Reactions: No Reported Reaction Past Psychological History: Anxiety, Bipolar, Depression, PTSD Smoking Status: Vaper Past Alcohol Use History: Rare Past Drug Use History: Marijuana - Past Family History Mother Family Medical History: Diabetes Mellitus, Hyperlipidemia, Hypertension, Myocardial Infarction ([place]) Additional Family Medical History / Comment(s): [place] X 3 Father Family Medical History: Congestive Heart Failure (CHF), Hyperlipidemia, Hype rtension, Myocardial Infarction ([place]) Additional Family Medical History / Comment(s): mi x 3 Son(s) Family Medical History: No Reported History General Exam Limitations: no limitations General appearance: alert, in no apparent distress Head exam: Present: atraumatic, normocephalic, normal inspection Eye exam: Present: normal appearance, PERRL, EOMI. Absent: scleral icterus, conjunctival injection, periorbital swelling ENT exam: Present: normal exam, mucous membranes moist Neck exam: Present: normal inspection. Absent: tenderness, meningismus, lymphadenopathy Respiratory exam: Present: normal lung sounds bilaterally. Absent: respiratory distress, wheezes, rales, rhonchi, stridor Cardiovascular Exam: Present: regular rate, normal rhythm, normal heart sounds. Absent: systolic murmur, diastolic murmur, rubs, gallop, clicks GI/Abdominal exam: Present: soft, tenderness (b/l lower quadrants), normal bowel sounds. Absent: distended, guarding, rebound, rigid Rectal exam: Present: heme (-) stool. Absent: black stool, bloody stool Extremities exam: Present: normal inspection, full ROM, normal capillary refill. Absent: tenderness, pedal edema, joint swelling, calf tenderness Back exam: Present: normal inspection Neurological exam: Present: alert, oriented X3, CN II-XII intact Psychiatric exam: Present: normal affect, normal mood Skin exam: Present: warm, dry, intact, normal color. Absent: rash Course Vital Signs 03/25/22 03/25/22 03/26/22 21:37 23:00 00:56 Temperature 98 F Pulse Rate 100 104 H 93 Respiratory 20 18 18 Rate Blood Pressure 152/76 112/61 111/52 O2 Sat by Pulse 95 96 95 Oximetry Medical Decision Making - Medical Decision Making On arrival patient is placed in room 6. A thorough history and physical exam was performed. IV access was established laboratory studies were conducted and reviewed. Lipase mildly elevated at 593. Liver enzymes are 45 and 55. Patient does have long-standing history of elevated liver enzymes. Rectal exam is performed. No gross blood. Specimen is sent for occult testing which is negative. Discussed results the patient. We will forego CT at this time as the patient has had multiple CTs for complaint of abdominal pain. Her abdomen is non-peritoneal at this time. She will be discharged home and is instructed to follow-up with Dr. Sanchez. May need a colonoscopy. Return to the emergency room for any new or worsening symptoms. Patient discharged home in stable condition - Lab Data Result diagrams: 03/25/22 21:59 03/25/22 21:59 Lab Results 03/25/22 03/25/22 03/25/22 Range/Units 21:59 21:59 21:59 WBC 10.9 H (3.8-10.6) k/uL RBC 4.43 (3.80-5.40) m/uL Hgb 12.2 (11.4-16.0) gm/dL Hct 36.7 (34.0-46.0) % MCV 82.8 (80.0-100.0) fL MCH 27.6 (25.0-35.0) pg MCHC 33.3 (31.0-37.0) g/dL RDW 14.0 (11.5-15.5) % Plt Count 302 (150-450) k/uL MPV 7.9 Neutrophils % 63 % Lymphocytes % 25 % Monocytes % 3 % Eosinophils % 7 % Basophils % 1 % Neutrophils # 6.9 (1.3-7.7) k/uL Lymphocytes # 2.7 (1.0-4.8) k/uL Monocytes # 0.3 (0-1.0) k/uL Eosinophils # 0.7 (0-0.7) k/uL Basophils # 0.1 (0-0.2) k/uL PT 9.8 (9.0-12.0) sec INR 0.9 (<1.2) APTT 23.3 (22.0-30.0) sec Sodium 137 (137-145) mmol/L Potassium 3.6 (3.5-5.1) mmol/L Chloride 106 (98-107) mmol/L Carbon Dioxide 25 (22-30) mmol/L Anion Gap 6 mmol/L BUN 13 (7-17) mg/dL Creatinine 0.64 (0.52-1.04) mg/dL Est GFR (CKD-EPI)AfAm >90 (>60 ml/min/1.73 sqM) Est GFR (CKD-EPI)NonAf >90 (>60 ml/min/1.73 sqM) Glucose 160 H (74-99) mg/dL Calcium 8.7 (8.4-10.2) mg/dL Total Bilirubin 0.5 (0.2-1.3) mg/dL AST 45 H (14-36) U/L ALT 55 H (4-34) U/L Alkaline Phosphatase 130 H (38-126) U/L Total Protein 6.5 (6.3-8.2) g/dL Albumin 3.9 (3.5-5.0) g/dL Amylase 63 (30-110) U/L Lipase 593 H (23-300) U/L Urine Color Urine Appearance (Clear) Urine pH (5.0-8.0) Ur Specific [place] (1.001-1.035) Urine Protein (Negative) Urine Glucose (UA) (Negative) Urine Ketones (Negative) Urine Blood (Negative) Urine Nitrite (Negative) Urine Bilirubin (Negative) Urine Urobilinogen (<2.0) mg/dL Ur Leukocyte Esterase (Negative) Urine WBC (0-5) /hpf Ur Squamous Epith Cells (0-4) /hpf Urine Mucus (None) /hpf Urine HCG, Qual (Not Detectd) Stool Occult Blood (Negative) Blood Type Blood Type Recheck Bld Type Recheck Status Antibody Screen Spec Expiration Date 03/25/22 03/25/22 03/25/22 Range/Units 21:59 21:59 21:59 WBC (3.8-10.6) k/uL RBC (3.80-5.40) m/uL Hgb (11.4-16.0) gm/dL Hct (34.0-46.0) % MCV (80.0-100.0) fL MCH (25.0-35.0) pg MCHC (31.0-37.0) g/dL RDW (11.5-15.5) % Plt Count (150-450) k/uL MPV Neutrophils % % Lymphocytes % % Monocytes % % Eosinophils % % Basophils % % Neutrophils # (1.3-7.7) k/uL Lymphocytes # (1.0-4.8) k/uL Monocytes # (0-1.0) k/uL Eosinophils # (0-0.7) k/uL Basophils # (0-0.2) k/uL PT (9.0-12.0) sec INR (<1.2) APTT (22.0-30.0) sec Sodium (137-145) mmol/L Potassium (3.5-5.1) mmol/L Chloride (98-107) mmol/L Carbon Dioxide (22-30) mmol/L Anion Gap mmol/L BUN (7-17) mg/dL Creatinine (0.52-1.04) mg/dL Est GFR (CKD-EPI)AfAm (>60 ml/min/1.73 sqM) Est GFR (CKD-EPI)NonAf (>60 ml/min/1.73 sqM) Glucose (74-99) mg/dL Calcium (8.4-10.2) mg/dL Total Bilirubin (0.2-1.3) mg/dL AST (14-36) U/L ALT (4-34) U/L Alkaline Phosphatase (38-126) U/L Total Protein (6.3-8.2) g/dL Albumin (3.5-5.0) g/dL Amylase (30-110) U/L Lipase (23-300) U/L Urine Color Yellow Urine Appearance Cloudy H (Clear) Urine pH 6.0 (5.0-8.0) Ur Specific [place] 1.021 (1.001-1.035) Urine Protein Negative (Negative) Urine Glucose (UA) Negative (Negative) Urine Ketones Negative (Negative) Urine Blood Negative (Negative) Urine Nitrite Negative (Negative) Urine Bilirubin Negative (Negative) Urine Urobilinogen <2.0 (<2.0) mg/dL Ur Leukocyte Esterase Negative (Negative) Urine WBC <1 (0-5) /hpf Ur Squamous Epith Cells 3 (0-4) /hpf Urine Mucus Few H (None) /hpf Urine HCG, Qual Not Detected (Not Detectd) Stool Occult Blood (Negative) Blood Type B Positive Blood Type Recheck B Pos Bld Type Recheck Status No Antibody Screen NEGATIVE Spec Expiration Date 03/28/2022 - 235803/25/22 Range/Units 23:25 WBC (3.8-10.6) k/uL RBC (3.80-5.40) m/uL Hgb (11.4-16.0) gm/dL Hct (34.0-46.0) % MCV (80.0-100.0) fL MCH (25.0-35.0) pg MCHC (31.0-37.0) g/dL RDW (11.5-15.5) % Plt Count (150-450) k/uL MPV Neutrophils % % Lymphocytes % % Monocytes % % Eosinophils % % Basophils % % Neutrophils # (1.3-7.7) k/uL Lymphocytes # (1.0-4.8) k/uL Monocytes # (0-1.0) k/uL Eosinophils # (0-0.7) k/uL Basophils # (0-0.2) k/uL PT (9.0-12.0) sec INR (<1.2) APTT (22.0-30.0) sec Sodium (137-145) mmol/L Potassium (3.5-5.1) mmol/L Chloride (98-107) mmol/L Carbon Dioxide (22-30) mmol/L Anion Gap mmol/L BUN (7-17) mg/dL Creatinine (0.52-1.04) mg/dL Est GFR (CKD-EPI)AfAm (>60 ml/min/1.73 sqM) Est GFR (CKD-EPI)NonAf (>60 ml/min/1.73 sqM) Glucose (74-99) mg/dL Calcium (8.4-10.2) mg/dL Total Bilirubin (0.2-1.3) mg/dL AST (14-36) U/L ALT (4-34) U/L Alkaline Phosphatase (38-126) U/L Total Protein (6.3-8.2) g/dL Albumin (3.5-5.0) g/dL Amylase (30-110) U/L Lipase (23-300) U/L Urine Color Urine Appearance (Clear) Urine pH (5.0-8.0) Ur Specific [place] (1.001-1.035) Urine Protein (Negative) Urine Glucose (UA) (Negative) Urine Ketones (Negative) Urine Blood (Negative) Urine Nitrite (Negative) Urine Bilirubin (Negative) Urine Urobilinogen (<2.0) mg/dL Ur Leukocyte Esterase (Negative) Urine WBC (0-5) /hpf Ur Squamous Epith Cells (0-4) /hpf Urine Mucus (None) /hpf Urine HCG, Qual (Not Detectd) Stool Occult Blood Negative (Negative) Blood Type Blood Type Recheck Bld Type Recheck Status Antibody Screen Spec Expiration Date - EKG Data EKG Comments: EKG demonstrates sinus tachycardia with a rate of 109. [place] interval 138. QRS 88. QTC 395. No acute ST segment elevations. Inverted T-wave lead 3. EKG was interpreted by myself Disposition Clinical Impression: Abdominal pain, GI bleeding Disposition: HOME SELF-CARE Condition: Stable Instructions (If sedation given, give patient instructions): Abdominal Pain (ED) Additional Instructions: I recommend that you follow-up with Dr. Vyas for a colonoscopy. Take Tylenol for pain control. Return to the emergency room for any new or worsening symptoms Is patient prescribed a controlled substance at d/c from ED?: No Referrals: Olvin Keenan MD [Primary Care Provider] - 1-2 days Nohemi Vyas MD [STAFF PHYSICIAN] - 1-2 days Time of Disposition: 00:33
[2022-03-25 23:54] VITALS: RESP 18
[2022-03-26 00:56] VITALS: BP 111/52; PULSE 93
== END 2022-03-26 00:56 | disposition home or self-care (01) ==
LOC: EC 21:18
DX: K92.2 Gastrointestinal hemorrhage, unspecified (principal); E11.9 Type 2 diabetes mellitus without complications; E78.5 Hyperlipidemia, unspecified; F41.9 Anxiety disorder, unspecified; F31.9 Bipolar disorder, unspecified; F17.290 Nicotine dependence, other tobacco product, uncomplicated; F12.90 Cannabis use, unspecified, uncomplicated; Z79.84 Long term (current) use of oral hypoglycemic drugs; Z79.899 Other long term (current) drug therapy; Z90.49 Acquired absence of other specified parts of digestive tract; Z88.6 Allergy status to analgesic agent
CPT/HCPCS: 36415; 80053; 81001; 81025; 82150; 82272; 83690; 85025; 85610; 85730; 86850; 86900; 86901; 99284

== ENCOUNTER 2022-12-14 19:12 | Emergency (ER) | payer OTHER ==
[2022-12-14 19:21] VITALS: TEMP 98.7
[2022-12-14] MEDS ORDERED: SODIUM CHLORIDE 0.9% 1,000 ML IV STA (19:38)
[2022-12-14] MEDS ORDERED: ONDANSETRON 4 MG/2 ML VIAL IVP STA (19:38)
[2022-12-14] MEDS ORDERED: KETOROLAC 15 MG/ML 1 ML VIAL IVP STA (19:38)
--- NOTE | 2022-12-14 19:40 | ED ---
Abdominal Pain HPI - General Chief Complaint: Abdominal Pain Stated Complaint: abd/back pain Time Seen by Provider: 12/14/22 19:23 Source: patient Mode of arrival: ambulatory Limitations: no limitations - History of Present Illness Initial Comments: 32 year old Old female presenting to the ED with a chief complaint of abdominal pain. Patient states after waking this morning started to experience right lower abdominal pain that radiates to the right side of her back. Since onset, reports pain has increased in severity. States pain is sharp in nature. Notes urgency and frequency however denies difficulty urinating or pain with urination. Notes that when she wiped she saw some blood however is unsure if the urine source of the blood as she a be starting her period. Associated nausea, no vomiting. Denies chest pain or shortness of breath. No other complaints. - Related Data Home Medications Medication Instructions Recorded Confirmed Pravastatin Sodium [Pravachol] 20 mg PO HS 01/20/18 01/02/21 LORazepam [Ativan] 1 mg PO HS PRN 11/24/18 01/02/21 buPROPion HCL [Wellbutrin XL] 300 mg PO DAILY 12/15/19 01/02/21 traZODone HCL 50 mg PO HS 12/15/19 01/02/21 ARIPiprazole 20 mg PO HS 01/09/20 01/02/21 ARIPiprazole [Abilify] 5 mg PO DAILY 01/09/20 01/02/21 Topiramate 50 mg PO HS 01/09/20 01/02/21 busPIRone HCL 15 mg PO TID 01/09/20 01/02/21 Amitriptyline HCl [Elavil] 75 mg PO BID 01/24/20 01/02/21 Verapamil HCl [Verapamil ER] 180 mg PO HS 01/24/20 01/02/21 Gabapentin 600 mg PO TID 02/20/20 01/02/21 OXcarbazepine [Oxtellar Xr] 150 mg PO HS 02/27/20 01/02/21 hydroCHLOROthiazide 25 mg PO DAILY 03/15/20 01/02/21 metFORMIN HCL 500 mg PO DAILY 07/25/20 01/02/21 SUMAtriptan succinate [Imitrex] 50 mg PO DAILY PRN 12/26/20 01/02/21 Prochlorperazine [Compazine] 10 mg PO Q8H PRN 01/02/21 01/02/21 Previous Rx's Medication Instructions Recorded Lidocaine 5% Patch [Lidoderm] 1 patch TOPICAL DAILY #5 patch 12/27/20 valACYclovir HCL [Valtrex] 1,000 mg PO Q8HR #21 tab 12/27/20 Dicyclomine [Bentyl] 20 mg PO TID PRN #20 tablet 01/01/21 Famotidine [Pepcid] 20 mg PO BID #30 tablet 01/01/21 Allergies Allergy/AdvReac Type Severity Reaction Status Date / Time NSAIDS (Non-Steroidal AdvReac Pt. states Verified 11/17/22 20:48 Anti-Inflamma NSAIDS have given her a GI bleed in the past. Review of Systems ROS Statement: Those systems with pertinent positive or pertinent negative responses have been documented in the HPI. ROS Other: All systems not noted in ROS Statement are negative. Past Medical History Past Medical History: Diabetes Mellitus, Fibromyalgia, GERD/Reflux, GI Bleed, Hyperlipidemia Additional Past Medical History / Comment(s): gallstones, kidney stones, IBS, migraines, tachycardia, Martine- Guevara tear, blood clot, pesudo tumor cerebrea History of Any Multi-Drug Resistant Organisms: None Reported Past Surgical History: Section, Cholecystectomy, Tubal Ligation Additional Past Surgical History / Comment(s): neck biopsy (lymph node ) d&c; LP shunt May 13 2019 feb 0211/2019 -revision, stent/ lithotripsy on left, cystoscopy, shunt revises july 28. Past Anesthesia/Blood Transfusion Reactions: No Reported Reaction Past Psychological History: Anxiety, Bipolar, Depression, PTSD Smoking Status: Vaper Past Alcohol Use History: Rare Past Drug Use History: Marijuana - Past Family History Mother Family Medical History: Diabetes Mellitus, Hyperlipidemia, Hypertension, Myocardial Infarction (IA) Additional Family Medical History / Comment(s): [place] X 3 Father Family Medical History: Congestive Heart Failure (CHF), Hyperlipidemia, Hypertension, Myocardial Infarction (IA) Additional Family Medical History / Comment(s): mi x 3 Son(s) Family Medical History: No Reported History General Exam Limitations: no limitations General appearance: alert, in no apparent distress, obese Eye exam: Present: normal appearance Respiratory exam: Present: normal lung sounds bilaterally Cardiovascular Exam: Present: regular rate, normal rhythm GI/Abdominal exam: Present: soft, tenderness (Right lower quadrant and right CVA tenderness.) Neurological exam: Present: alert, oriented X3 Skin exam: Present: warm, dry Course Vital Signs 12/14/22 12/14/22 19:18 19:21 Temperature 98.7 F Pulse Rate 98 93 Respiratory 18 18 Rate Blood Pressure 138/83 126/74 O2 Sat by Pulse 98 98 Oximetry Medical Decision Making - Medical Decision Making Was pt. sent in by a medical professional or institution (, PA, CARD GRINDER, urgent care, hospital, or detention...) When possible be specific @ -No Did you speak to anyone other than the patient for history (EMS, parent, family, police, friend...)? What history was obtained from this source @ -No Did you review nursing and triage notes (agree or disagree)? Why? @ -I reviewed and agree with nursing and triage notes Were old charts reviewed (outside hosp., previous admission, EMS record, old EKG, old radiological studies, urgent care reports/EKG's, detention records)? Report findings @ -No old charts were reviewed Differential Diagnosis (chest pain, altered mental status, abdominal pain women, abdominal pain men, vaginal bleeding, weakness, fever, dyspnea, syncope, headache, dizziness, GI bleed, back pain, seizure, CVA, palpatations, mental health, musculoskeletal)? @ -Differential Abdominal Pain Women: Appendicitis, Cholecystitis, diverticulosis, ischemic bowel, pancreatitis, hepatitis, UTI, gastroenteritis, AAA, incarcerated hernia, bowel obstruction, constipation, inflammatory bowel, hepatitis, peptic ulcer disease, splenic infarction, perforated viscus, vulvitis, ovarian torsion, PID, kidney stone, placenta abruption, this is not meant to be an all-inclusive list EKG interpreted by me (3pts min.). @ -As above X-rays interpreted by me (1pt min.). @ -None done CT interpreted by me (1pt min.). @ -CT shows no evidence of stone or obstructive uropathy. Appendix was unable to be visualized however no secondary changes suggesting appendicitis. U/S interpreted by me (1pt. min.). @ -None done What testing was considered but not performed or refused? (CT, X-rays, U/S, labs)? Why? @ -None What meds were considered but not given or refused? Why? @ -None Did you discuss the management of the patient with other professionals (professionals i.e. DrJacob, PA, CARD GRINDER, lab, RT, psych nurse, social media content manager, starcher and tenter range feeder, teacher, ground defence officer, catalytic case operator)? Give summary @ -No Was smoking cessation discussed for >3mins.? @ -No Was critical care preformed (if so, how long)? @ -No Were there social determinants of health that impacted care today? How? (Homelessness, low income, unemployed, alcoholism, drug addiction, transportation, low edu. Level, literacy, decrease access to med. care, longterm, rehab)? @ -No Was there de-escalation of care discussed even if they declined (Discuss DNR or withdrawal of care, Hospice)? DNR status @ -No What co-morbidities impacted this encounter? (DM, HTN, Smoking, COPD, CAD, Cancer, CVA, ARF, Chemo, Hep., AIDS, mental health diagnosis, sleep apnea, morbid obesity)? @ -None Was patient admitted / discharged? Hospital course, mention meds given and route, prescriptions, significant lab abnormalities, going to OR and other pertinent info. @ -Discharge. Laboratory studies only significant for an elevated white blood cell count 11.6 however otherwise laboratory studies largely unremarkable. CT shows no evidence of stone. Additionally, appendix was unable to be visualized however no evidence of secondary changes indicative of appendicitis. Patient feels improvement after medications here. Patient will be discharged home in stable condition. Discussed return precautions with patient verbalizes agreement. Undiagnosed new problem with uncertain prognosis? @ -No Drug Therapy requiring intensive monitoring for toxicity (Heparin, Nitro, Insulin, Cardizem)? @ -No Were any procedures done? @ -No Diagnosis/symptom? @ -Abdominal pain Acute, or Chronic, or Acute on Chronic? @ -Acute Uncomplicated (without systemic symptoms) or Complicated (systemic symptoms)? @ -Uncomplicated Side effects of treatment? @ -No Exacerbation, Progression, or Severe Exacerbation? @ -No Poses a threat to life or bodily function? How? (Chest pain, USA, IA, pneumonia, PE, COPD, DKA, ARF, appy, cholecystitis, CVA, Diverticulitis, Homicidal, Suicidal, threat to staff... and all critical care pts) @ -No - Lab Data Result diagrams: 12/14/22 19:40 12/14/22 19:40 Lab Results 12/14/22 12/14/22 12/14/22 Range/Units 19:40 19:40 20:04 WBC 11.6 H (3.8-10.6) k/uL RBC 4.59 (3.80-5.40) m/uL Hgb 12.5 (11.4-16.0) gm/dL Hct 37.5 (34.0-46.0) % MCV 81.6 (80.0-100.0) fL MCH 27.1 (25.0-35.0) pg MCHC 33.3 (31.0-37.0) g/dL RDW 13.8 (11.5-15.5) % Plt Count 315 (150-450) k/uL MPV 7.5 Neutrophils % 63 % Lymphocytes % 28 % Monocytes % 3 % Eosinophils % 5 % Basophils % 0 % Neutrophils # 7.3 (1.3-7.7) k/uL Lymphocytes # 3.2 (1.0-4.8) k/uL Monocytes # 0.4 (0-1.0) k/uL Eosinophils # 0.5 (0-0.7) k/uL Basophils # 0.0 (0-0.2) k/uL Sodium 140 (137-145) mmol/L Potassium 3.6 (3.5-5.1) mmol/L Chloride 107 (98-107) mmol/L Carbon Dioxide 24 (22-30) mmol/L Anion Gap 9 mmol/L BUN 13 (7-17) mg/dL Creatinine 0.83 (0.52-1.04) mg/dL Est GFR (CKD-EPI)AfAm >90 (>60 ml/min/1.73 sqM) Est GFR (CKD-EPI)NonAf >90 (>60 ml/min/1.73 sqM) Glucose 113 H (74-99) mg/dL Calcium 8.9 (8.4-10.2) mg/dL Total Bilirubin 0.8 (0.2-1.3) mg/dL AST 34 (14-36) U/L ALT 52 H (4-34) U/L Alkaline Phosphatase 104 (38-126) U/L Total Protein 6.6 (6.3-8.2) g/dL Albumin 3.8 (3.5-5.0) g/dL Amylase 38 (30-110) U/L Lipase 63 (23-300) U/L Urine Color Yellow Urine Appearance Cloudy H (Clear) Urine pH 6.0 (5.0-8.0) Ur Specific [place] 1.032 (1.001-1.035) Urine Protein Trace H (Negative) Urine Glucose (UA) Negative (Negative) Urine Ketones Negative (Negative) Urine Blood Small H (Negative) Urine Nitrite Negative (Negative) Urine Bilirubin Negative (Negative) Urine Urobilinogen <2.0 (<2.0) mg/dL Ur Leukocyte Esterase Small H (Negative) Urine RBC 3 (0-5) /hpf Urine WBC 4 (0-5) /hpf Ur Squamous Epith Cells 15 H (0-4) /hpf Amorphous Sediment Rare H (None) /hpf Urine Bacteria Rare H (None) /hpf Urine Mucus Many H (None) /hpf Disposition Clinical Impression: Abdominal pain Disposition: HOME SELF-CARE Condition: Good Instructions (If sedation given, give patient instructions): Abdominal Pain (ED) Additional Instructions: Please return to the Emergency Department if symptoms worsen or any other concerns. Is patient prescribed a controlled substance at d/c from ED?: No Referrals: Olvin Keenan MD [Primary Care Provider] - 1-2 days Time of Disposition: 20:43
[2022-12-14 19:48] LABS: Basophils % (A) 0 %; Eosinophils # (A) 0.5 k/uL (0-0.7); Eosinophils % (A) 5 %; HCT 37.5 % (34.0-46.0); HGB 12.5 gm/dL (11.4-16.0); Lymphocytes # (A) 3.2 k/uL (1.0-4.8); Lymphocytes % (A) 28 %; MCH 27.1 pg (25.0-35.0); MCHC 33.3 g/dL (31.0-37.0); MCV 81.6 fL (80.0-100.0); Mean Platelet Volume 7.5; Monocytes # (A) 0.4 k/uL (0-1.0); Monocytes % (A) 3 %; Neutrophils # (A) 7.3 k/uL (1.3-7.7); Neutrophils % (A) 63 %; Platelet Count 315 k/uL (150-450); RBC 4.59 m/uL (3.80-5.40); RDW 13.8 % (11.5-15.5); WBC 11.6 k/uL (3.8-10.6)
[2022-12-14 19:56] LABS: ALT 52 U/L (4-34); AST 34 U/L (14-36); African American GFR (CKD) >90 (>60 ml/min/1.73 sqM); Albumin 3.8 g/dL (3.5-5.0); Alkaline Phosphatase 104 U/L (38-126); Amylase 38 U/L (30-110); Anion Gap 9 mmol/L; Blood Urea Nitrogen 13 mg/dL (7-17); Calcium 8.9 mg/dL (8.4-10.2); Carbon Dioxide 24 mmol/L (22-30); Chloride 107 mmol/L (98-107); Glucose 113 mg/dL (74-99); Lipase 63 U/L (23-300); Non-African American GFR(CKD) >90 (>60 ml/min/1.73 sqM); Potassium 3.6 mmol/L (3.5-5.1); Sodium 140 mmol/L (137-145); Total Bilirubin 0.8 mg/dL (0.2-1.3); Total Protein 6.6 g/dL (6.3-8.2)
[2022-12-14] MEDS ORDERED: MORPHINE SULFATE 4 MG/ML SYRINGE IVP STA (20:06)
--- NOTE | 2022-12-14 20:18 | CT ---
EXAMINATION TYPE: CT abdomen pelvis wo con CT DLP: 1705.6 mGycm, Automated exposure control for dose reduction was used. DATE OF EXAM: 12/14/2022 7:56 PM COMPARISON: CT abdomen pelvis most recent from 02/18/2022 CLINICAL INDICATION:Female, 32 years old with history of r/o r stone; right flank pain TECHNIQUE: Axial CT of the abdomen and pelvis. Sagittal and coronal reformats were created on a [employer] workstation. Contrast used: mL of , (none if empty) Oral contrast used: without Oral Contrast (none if empty) FINDINGS: LOWER CHEST: Unremarkable ABDOMEN LIVER: Diffusely hypoattenuating parenchyma. GALLBLADDER AND BILE DUCTS: The gallbladder is surgically absent. PANCREAS: Unremarkable. SPLEEN: Unremarkable. ADRENAL GLANDS: Unremarkable. KIDNEYS AND URETERS: No evidence of hydronephrosis or renal calculus. The ureters are unremarkable. PELVIS BLADDER: Unremarkable REPRODUCTIVE: Bilateral tubal ligation clips. ABDOMEN & PELVIS STOMACH AND BOWEL: No evidence of bowel obstruction. The appendix is not visualized and there are no secondary signs of appendicitis. PERITONEUM/RETROPERITONEUM: No evidence of pneumoperitoneum or free fluid. VASCULATURE: No evidence of aortic aneurysm. MUSCULOSKELETAL: No acute osseous abnormalities LYMPH NODES: No gross evidence for lymphadenopathy. SOFT TISSUE/ABDOMINAL WALL: Tubing terminating in the thecal sac and peritoneal cavity. Fat stranding changes in the anterior omentum. Findings stable from prior. IMPRESSION: 1. No evidence for urolithiasis or obstructive uropathy. 2. Stable shunt tubing. 3. Stable anterior intra-abdominal fat stranding changes which may represent postsurgical change. 4. Hepatic steatosis.
[2022-12-14 20:25] LABS: Amorphous Sediment,Urine Rare /hpf; Appearance,Urine Cloudy (Clear); Bacteria,Urine Rare /hpf; Bilirubin,Urine Negative (Negative); Blood,Urine Small (Negative); Color,Urine Yellow; Glucose,Urine (UA) Negative (Negative); Ketones,Urine Negative (Negative); Leukocyte Esterase,Urine Small (Negative); Mucus,Urine Many /hpf; Nitrite,Urine Negative (Negative); Protein,Urine Trace (Negative); RBC,Urine 3 /hpf (0-5); Specific Gravity,Urine 1.032 (1.001-1.035); Squamous Epithelial Cell,Urine 15 /hpf (0-4); Urobilinogen,Urine <2.0 mg/dL (<2.0); WBC,Urine 4 /hpf (0-5)
[2022-12-14 21:03] VITALS: BP 108/88; PULSE 74; RESP 19
== END 2022-12-14 21:07 | disposition home or self-care (01) ==
LOC: EC 19:12
DX: R10.31 Right lower quadrant pain (principal); E11.9 Type 2 diabetes mellitus without complications; K21.9 Gastro-esophageal reflux disease without esophagitis; E78.5 Hyperlipidemia, unspecified; F41.9 Anxiety disorder, unspecified; F31.9 Bipolar disorder, unspecified; F17.290 Nicotine dependence, other tobacco product, uncomplicated; F12.90 Cannabis use, unspecified, uncomplicated; Z88.6 Allergy status to analgesic agent; Z79.84 Long term (current) use of oral hypoglycemic drugs; Z79.899 Other long term (current) drug therapy
CPT/HCPCS: 99285; 96374 ×2; 96375 ×3; 96361 ×2; 36415; 80053; 82150; 83690; 85025; 81001; 74176; 99284; J2270; J2405

== ENCOUNTER 2022-12-30 14:13 | Emergency (ER) | payer OTHER ==
--- NOTE | 2022-12-30 14:38 | ED ---
General Adult HPI - General Source: patient Mode of arrival: ambulatory Limitations: no limitations <Geovanny Rai - Last Filed: 12/30/22 15:45> <Joshua Perkins - Last Filed: 12/30/22 17:50> - General Chief complaint: Chest Pain Stated complaint: chest pain Time Seen by Provider: 12/30/22 14:27 - History of Present Illness Initial comments: Dictation was produced using [employer] dictation software. please excuse any grammatical, word or spelling errors. Chief Complaint: 32-year-old female presents with 1 day of chest pain History of Present Illness: 32-year-old female she has past medical history of diabetes, fibromyalgia dyslipidemia. She has extensive family history of heart attacks. States that her father from heart attack in his 50s. Patient states that she is a pressure and sharp sensation in her chest rates her left scapula. No associated diaphoresis or nausea. Not worse with deep inspiration. She does have a history of blood clot. The ROS documented in this emergency department record has been reviewed and confirmed by me. Those systems with pertinent positive or negative responses have been documented in the HPI. All other systems are other negative and/or noncontributory. (Geovanny Rai) - Related Data Home Medications Medication Instructions Recorded Confirmed Pravastatin Sodium [Pravachol] 20 mg PO HS 01/20/18 01/02/21 LORazepam [Ativan] 1 mg PO HS PRN 11/24/18 01/02/21 buPROPion HCL [Wellbutrin XL] 300 mg PO DAILY 12/15/19 01/02/21 traZODone HCL 50 mg PO HS 12/15/19 01/02/21 ARIPiprazole 20 mg PO HS 01/09/20 01/02/21 ARIPiprazole [Abilify] 5 mg PO DAILY 01/09/20 01/02/21 Topiramate 50 mg PO HS 01/09/20 01/02/21 busPIRone HCL 15 mg PO TID 01/09/20 01/02/21 Amitriptyline HCl [Elavil] 75 mg PO BID 01/24/20 01/02/21 Verapamil HCl [Verapamil ER] 180 mg PO HS 01/24/20 01/02/21 Gabapentin 600 mg PO TID 02/20/20 01/02/21 OXcarbazepine [Oxtellar Xr] 150 mg PO HS 02/27/20 01/02/21 hydroCHLOROthiazide 25 mg PO DAILY 03/15/20 01/02/21 metFORMIN HCL 500 mg PO DAILY 07/25/20 01/02/21 SUMAtriptan succinate [Imitrex] 50 mg PO DAILY PRN 12/26/20 01/02/21 Prochlorperazine [Compazine] 10 mg PO Q8H PRN 01/02/21 01/02/21 Previous Rx's Medication Instructions Recorded Lidocaine 5% Patch [Lidoderm] 1 patch TOPICAL DAILY #5 patch 12/27/20 valACYclovir HCL [Valtrex] 1,000 mg PO Q8HR #21 tab 12/27/20 Dicyclomine [Bentyl] 20 mg PO TID PRN #20 tablet 01/01/21 Famotidine [Pepcid] 20 mg PO BID #30 tablet 01/01/21 Allergies Allergy/AdvReac Type Severity Reaction Status Date / Time NSAIDS (Non-Steroidal AdvReac Pt. states Verified 12/30/22 14:16 Anti-Inflamma NSAIDS have given her a GI bleed in the past. Review of Systems ROS Other: All systems not noted in ROS Statement are negative. <Geovanny Rai - Last Filed: 12/30/22 15:45> ROS Other: All systems not noted in ROS Statement are negative. <Joshua Perkins - Last Filed: 12/30/22 17:50> ROS Statement: Those systems with pertinent positive or pertinent negative responses have been documented in the HPI. Past Medical History Past Medical History: Diabetes Mellitus, Fibromyalgia, GERD/Reflux, GI Bleed, Hyperlipidemia Additional Past Medical History / Comment(s): gallstones, kidney stones, IBS, migraines, tachycardia, Martine- Guevara tear, blood clot, pesudo tumor cerebrea History of Any Multi-Drug Resistant Organisms: None Reported Past Surgical History: Section, Cholecystectomy, Tubal Ligation Additional Past Surgical History / Comment(s): neck biopsy (lymph node ) d&c; LP shunt May 13 2019 feb 0211/2019 -revision, stent/ lithotripsy on left, cystoscopy, shunt revises july 28. Past Anesthesia/Blood Transfusion Reactions: No Reported Reaction Past Psychological History: Anxiety, Bipolar, Depression, PTSD Smoking Status: Vaper Past Alcohol Use History: Rare Past Drug Use History: Marijuana - Past Family History Mother Family Medical History: Diabetes Mellitus, Hyperlipidemia, Hypertension, Myocardial Infarction (DC) Additional Family Medical History / Comment(s): [place] X 3 Father Family Medical History: Congestive Heart Failure (CHF), Hyperlipidemia, Hypertension, Myocardial Infarction (DC) Additional Family Medical History / Comment(s): mi x 3 Son(s) Family Medical History: No Reported History <Geovanny Rai - Last Filed: 12/30/22 15:45> General Exam Limitations: no limitations <Geovanny Rai - Last Filed: 12/30/22 15:45> - General Exam Comments Initial Comments: PHYSICAL EXAM: General Impression: Alert and oriented x3, not in acute distress HEENT: Normocephalic atraumatic, extra-ocular movements intact, pupils equal and reactive to light bilaterally, mucous membranes moist. Cardiovascular: Heart regular rate and rhythm Chest: Able to complete full sentences, no retractions, no tachypnea Abdomen: abdomen soft, non-tender, non-distended, no organomegaly Musculoskeletal: Pulses present and equal in all extremities, no peripheral edema Motor: no focal deficits noted Neurological: CN II-XII grossly intact, no focal motor or sensory deficits noted Skin: Intact with no visualized rashes Psych: Normal affect and mood (Geovanny Rai) Course Vital Signs 12/30/22 12/30/22 14:14 17:41 Temperature 98.4 F 98.2 F Pulse Rate 91 73 Respiratory 20 18 Rate Blood Pressure 138/85 142/68 O2 Sat by Pulse 99 97 Oximetry EKG Findings - EKG Comments: EKG Findings:: My EKG interpretation: Ventricular rate 85, sinus rhythm,. 140, QRS 91, QTC 398. No [place] prolongation, no QTC prolongation, no ST or T-wave changes noted. Overall, this EKG is unremarkable <Geovanny Rai - Last Filed: 12/30/22 15:45> Medical Decision Making - Lab Data Result diagrams: 12/30/22 15:07 12/30/22 15:07 <Geovanny Rai - Last Filed: 12/30/22 15:45> - Lab Data Result diagrams: 12/30/22 15:07 12/30/22 15:07 <Joshua Perkins - Last Filed: 12/30/22 17:50> - Medical Decision Making Was pt. sent in by a medical professional or institution ([facility], STAFF RN, urgent care, hospital, or prison...) When possible be specific @ -No Did you speak to anyone other than the patient for history (EMS, parent, family, police, friend...)? What history was obtained from this source @ -No Did you review nursing and triage notes (agree or disagree)? Why? @ -I reviewed and agree with nursing and triage notes Were old charts reviewed (outside hosp., previous admission, EMS record, old EKG, old radiological studies, urgent care reports/EKG's, prison records)? Report findings @ -No old charts were reviewed Differential Diagnosis (chest pain, altered mental status, abdominal pain women, abdominal pain men, vaginal bleeding, musculoskeletal, weakness, fever, dyspnea, syncope, headache, dizziness, GI bleed, back pain, seizure, CVA, palpatations, mental health)? @ -Differential Chest Pain: Stable Angina, Unstable Angina, STEMI, NSTEMI Aortic Dissection, Pneumothorax, Musculoskeletal, Esophageal Spasm GERD, Cholecystitis, Pancreatitis, Zoster, this is not meant to be an all-inclusive list. EKG interpreted by me (3pts min.). @ -Asbove X-rays interpreted by me (1pt min.). @ -Chest x-ray shows no acute processes. CT interpreted by me (1pt min.). @ -None done U/S interpreted by me (1pt. min.). @ -None done What testing was considered but not performed or refused? (CT, X-rays, U/S, labs)? Why? @ -None What meds were considered but not given or refused? Why? @ -None Did you discuss the management of the patient with other professionals (professionals i.e. [facility], STAFF RN, lab, RT, psych nurse, foster care social worker, yard coordinator, teacher, co founder and chief strategy officer, telehealth case manager)? Give summary @ -No Was smoking cessation discussed for >3mins.? @ -No Was critical care preformed (if so, how long)? @ -No Were there social determinants of health that impacted care today? How? (Homelessness, low income, unemployed, alcoholism, drug addiction, transportation, low edu. Level, literacy, decrease access to med. care, halfway, rehab)? @ -No Was there de-escalation of care discussed even if they declined (Discuss DNR or withdrawal of care, Hospice)? DNR status @ -No What co-morbidities impacted this encounter? (DM, HTN, Smoking, COPD, CAD, Cancer, CVA, ARF, Chemo, Hep., AIDS, mental health diagnosis, sleep apnea, morbid obesity)? @ -None Was patient admitted / discharged? Hospital course, mention meds given and route, prescriptions, significant lab abnormalities, going to OR and other pertinent info. @ -32-year-old female presents emergency department for atypical chest pain typical features she has history of venous blood clots and extensive family history of acute coronary syndrome. CBC, metabolic panel is unremarkable. Abdominal labs are unremarkable. Patient is sent out to Dr. Perkins at 4 PM for follow-up of pending labs to determine final disposition. Undiagnosed new problem with uncertain prognosis? @ -No Drug Therapy requiring intensive monitoring for toxicity (Heparin, Nitro, Insulin, Cardizem)? @ -No Were any procedures done? @ -No Diagnosis/symptom? Acute, or Chronic, or Acute on Chronic? Uncomplicated (without systemic symptoms) or Complicated (systemic symptoms)? @ -Atypical chest pain typical features. (Geovanny Rai) The patient was signed out to me by Dr. Rai pending completion of laboratory workup. Laboratory workup including a d-dimer was pending and was resulted at 0.61 and was positive therefore the patient did receive a CTA of the chest. CTA of the chest was obtained and was interpreted by myself showing no PE. On re- examination, the patient had reproducibility of pain on palpation to the left anterior chest as well as left upper shoulder. The patient also had worsening pain with motion likely secondary to a musculoskeletal strain. The patient had a negative workup and therefore can be discharged home safely. The patient was told to follow-up with her primary care physician for further workup and evaluation and to report back to the emergency department if her pain became acutely worse. The patient was agreeable to this and all her questions were answered. The patient was discharged home in stable condition. (Joshua Perkins) - Lab Data Lab Results 0912/30/22 12/30/22 Range/Units 15:07 15:07 15:07 WBC 9.1 (3.8-10.6) k/uL RBC 4.42 (3.80-5.40) m/uL Hgb 12.1 (11.4-16.0) gm/dL Hct 35.8 (34.0-46.0) % MCV 81.2 (80.0-100.0) fL MCH 27.3 (25.0-35.0) pg MCHC 33.6 (31.0-37.0) g/dL RDW 14.2 (11.5-15.5) % Plt Count 279 (150-450) k/uL MPV 7.4 Neutrophils % 64 % Lymphocytes % 26 % Monocytes % 4 % Eosinophils % 4 % Basophils % 0 % Neutrophils # 5.9 (1.3-7.7) k/uL Lymphocytes # 2.4 (1.0-4.8) k/uL Monocytes # 0.4 (0-1.0) k/uL Eosinophils # 0.4 (0-0.7) k/uL Basophils # 0.0 (0-0.2) k/uL PT 9.6 (9.0-12.0) sec INR 0.9 (<1.2) APTT 22.7 (22.0-30.0) sec D-Dimer 0.61 H (<0.60) mg/L FEU Sodium 138 (137-145) mmol/L Potassium 4.2 (3.5-5.1) mmol/L Chloride 109 H (98-107) mmol/L Carbon Dioxide 23 (22-30) mmol/L Anion Gap 6 mmol/L BUN 14 (7-17) mg/dL Creatinine 0.71 (0.52-1.04) mg/dL Est GFR (CKD-EPI)AfAm >90 (>60 ml/min/1.73 sqM) Est GFR (CKD-EPI)NonAf >90 (>60 ml/min/1.73 sqM) Glucose 127 H (74-99) mg/dL Calcium 9.0 (8.4-10.2) mg/dL Magnesium 1.9 (1.6-2.3) mg/dL Total Bilirubin 0.7 (0.2-1.3) mg/dL AST 31 (14-36) U/L ALT 44 H (4-34) U/L Alkaline Phosphatase 108 (38-126) U/L Troponin I (0.000-0.034) ng/mL Total Protein 6.3 (6.3-8.2) g/dL Albumin 3.5 (3.5-5.0) g/dL 12/30/22 Range/Units 15:07 WBC (3.8-10.6) k/uL RBC (3.80-5.40) m/uL Hgb (11.4-16.0) gm/dL Hct (34.0-46.0) % MCV (80.0-100.0) fL MCH (25.0-35.0) pg MCHC (31.0-37.0) g/dL RDW (11.5-15.5) % Plt Count (150-450) k/uL MPV Neutrophils % % Lymphocytes % % Monocytes % % Eosinophils % % Basophils % % Neutrophils # (1.3-7.7) k/uL Lymphocytes # (1.0-4.8) k/uL Monocytes # (0-1.0) k/uL Eosinophils # (0-0.7) k/uL Basophils # (0-0.2) k/uL PT (9.0-12.0) sec INR (<1.2) APTT (22.0-30.0) sec D-Dimer (<0.60) mg/L FEU Sodium (137-145) mmol/L Potassium (3.5-5.1) mmol/L Chloride (98-107) mmol/L Carbon Dioxide (22-30) mmol/L Anion Gap mmol/L BUN (7-17) mg/dL Creatinine (0.52-1.04) mg/dL Est GFR (CKD-EPI)AfAm (>60 ml/min/1.73 sqM) Est GFR (CKD-EPI)NonAf (>60 ml/min/1.73 sqM) Glucose (74-99) mg/dL Calcium (8.4-10.2) mg/dL Magnesium (1.6-2.3) mg/dL Total Bilirubin (0.2-1.3) mg/dL AST (14-36) U/L ALT (4-34) U/L Alkaline Phosphatase (38-126) U/L Troponin I <0.012 (0.000-0.034) ng/mL Total Protein (6.3-8.2) g/dL Albumin (3.5-5.0) g/dL Disposition <Geovanny Rai - Last Filed: 12/30/22 15:45> Is patient prescribed a controlled substance at d/c from ED?: No Time of Disposition: 17:00 <Joshua Perkins - Last Filed: 12/30/22 17:50> Clinical Impression: Chest wall muscle strain Disposition: HOME SELF-CARE Condition: Stable Instructions (If sedation given, give patient instructions): Chest Wall Pain (ED) Referrals: Olvin Keenan MD [Primary Care Provider] - 1-2 days
[2022-12-30 15:20] LABS: Basophils % (A) 0 %; Eosinophils # (A) 0.4 k/uL (0-0.7); Eosinophils % (A) 4 %; HCT 35.8 % (34.0-46.0); HGB 12.1 gm/dL (11.4-16.0); Lymphocytes # (A) 2.4 k/uL (1.0-4.8); Lymphocytes % (A) 26 %; MCH 27.3 pg (25.0-35.0); MCHC 33.6 g/dL (31.0-37.0); MCV 81.2 fL (80.0-100.0); Mean Platelet Volume 7.4; Monocytes # (A) 0.4 k/uL (0-1.0); Monocytes % (A) 4 %; Neutrophils # (A) 5.9 k/uL (1.3-7.7); Neutrophils % (A) 64 %; Platelet Count 279 k/uL (150-450); RBC 4.42 m/uL (3.80-5.40); RDW 14.2 % (11.5-15.5); WBC 9.1 k/uL (3.8-10.6)
[2022-12-30 15:29] LABS: ALT 44 U/L (4-34); AST 31 U/L (14-36); African American GFR (CKD) >90 (>60 ml/min/1.73 sqM); Albumin 3.5 g/dL (3.5-5.0); Alkaline Phosphatase 108 U/L (38-126); Anion Gap 6 mmol/L; Blood Urea Nitrogen 14 mg/dL (7-17); Carbon Dioxide 23 mmol/L (22-30); Chloride 109 mmol/L (98-107); Glucose 127 mg/dL (74-99); Magnesium 1.9 mg/dL (1.6-2.3); Non-African American GFR(CKD) >90 (>60 ml/min/1.73 sqM); Potassium 4.2 mmol/L (3.5-5.1); Sodium 138 mmol/L (137-145); Total Bilirubin 0.7 mg/dL (0.2-1.3); Total Protein 6.3 g/dL (6.3-8.2)
--- NOTE | 2022-12-30 15:29 | XR ---
EXAMINATION TYPE: XR chest 2V DATE OF EXAM: 12/30/2022 2:52 PM COMPARISON: Chest radiographs from 12/21/2022 TECHNIQUE: XR chest 2V Frontal and lateral views of the chest. CLINICAL INDICATION:Female, 32 years old with history of Chest Pain; FINDINGS: Lungs/Pleura: There is no evidence of pleural effusion, focal consolidation, or pneumothorax. Pulmonary vascularity: Unremarkable. Heart/mediastinum: Cardiomediastinal silhouette is unremarkable. Musculoskeletal: No acute osseous pathology. IMPRESSION: No acute cardiopulmonary disease/process.
[2022-12-30 15:44] LABS: INR 0.9 (<1.2); Partial Thromboplastin Time 22.7 sec (22.0-30.0); Prothrombin Time 9.6 sec (9.0-12.0)
--- NOTE | 2022-12-30 17:08 | CT ---
EXAMINATION TYPE: CT angio chest CT DLP: 1025 mGycm, Automated exposure control for dose reduction was used. DATE OF EXAM: 12/30/2022 4:56 PM COMPARISON: Chest radiograph from same day. Multiple CTs of the chest with most recent on 04/03/2021. CLINICAL INDICATION:Female, 32 years old with history of SOB, r/o PE; dyspnea TECHNIQUE/CONTRAST: CTA scan of the thorax is performed with IV Contrast, patient injected with 100ml mL of Isovue 370, M IP images are created and reviewed these are created on a separate workstation.. FINDINGS: Pulmonary Artery: There is no evidence for a filling defect within the pulmonary vasculature to sugge st acute pulmonary embolism. The pulmonary artery is of normal size. Lungs/Pleura: No evidence of focal consolidation, pleural effusion or pneumothorax. Airway: Large airways are patent. Heart: Heart is within normal limits for size. Vasculature: No evidence of aortic aneurysm. Mediastinum: No gross evidence of adenopathy. Musculoskeletal: No acute osseous abnormalities Soft Tissues: Unremarkable. Lower neck: No significant findings. Upper Abdomen: No significant findings. IMPRESSION: No evidence of pulmonary embolism.
[2022-12-30 17:42] VITALS: BP 142/68; PULSE 73; RESP 18; TEMP 98.2
== END 2022-12-30 17:55 | disposition home or self-care (01) ==
LOC: EC 14:13
DX: S29.011A Strain of muscle and tendon of front wall of thorax, initial encounter (principal); E11.9 Type 2 diabetes mellitus without complications; K21.9 Gastro-esophageal reflux disease without esophagitis; E78.5 Hyperlipidemia, unspecified; F41.9 Anxiety disorder, unspecified; F31.9 Bipolar disorder, unspecified; F17.290 Nicotine dependence, other tobacco product, uncomplicated; F12.90 Cannabis use, unspecified, uncomplicated; Z88.6 Allergy status to analgesic agent; Z79.84 Long term (current) use of oral hypoglycemic drugs; Z79.899 Other long term (current) drug therapy; X58.XXXA Exposure to other specified factors, initial encounter
CPT/HCPCS: 99285; 36415; 93005; 85379; 80053; 83735; 84484; 85025; 85610; 85730; 71046; 71275; Q9967

== ENCOUNTER 2023-02-15 22:58 | Emergency (ER) | payer OTHER ==
[2023-02-15 23:08] VITALS: RESP 18; TEMP 98.7
[2023-02-15] MEDS ORDERED: methylPREDNISolone SOD SUCCI 125 MG/2 ML VIAL IM ONE (23:12)
[2023-02-15] MEDS ORDERED: IPRATROPIUM-ALBUTEROL 3 ML NEB INHALATION STA (23:12)
[2023-02-15] MEDS ORDERED: KETOROLAC 15 MG/ML 1 ML VIAL IM STA (23:13)
--- NOTE | 2023-02-15 23:29 | ED ---
URI HPI - General Chief Complaint: Upper Respiratory Infection Stated Complaint: Cough Congestion Time Seen by Provider: 02/15/23 23:05 Source: patient, RN notes reviewed Mode of arrival: ambulatory Limitations: no limitations - History of Present Illness Initial Comments: This is a 32-year-old female who presents to the emergency department for coughing, congestion, and shortness of breath. She states that her and son were both diagnosed with pneumonia and exhibited the same symptoms. She started to become ill last night and today. She has chills but denies any known fevers. The shortness of breath is triggered by the coughing and when she is having difficulty controlling it. Denies any chest pain. She is not a smoker and denies any history of respiratory illnesses such as asthma or COPD. MD Complaint: cough, nasal congestion - Related Data Home Medications Medication Instructions Recorded Confirmed Pravastatin Sodium [Pravachol] 20 mg PO HS 01/20/18 01/02/21 LORazepam [Ativan] 1 mg PO HS PRN 11/24/18 01/02/21 buPROPion HCL [Wellbutrin XL] 300 mg PO DAILY 12/15/19 01/02/21 traZODone HCL 50 mg PO HS 12/15/19 01/02/21 ARIPiprazole 20 mg PO HS 01/09/20 01/02/21 ARIPiprazole [Abilify] 5 mg PO DAILY 01/09/20 01/02/21 Topiramate 50 mg PO HS 01/09/20 01/02/21 busPIRone HCL 15 mg PO TID 01/09/20 01/02/21 Amitriptyline HCl [Elavil] 75 mg PO BID 01/24/20 01/02/21 Verapamil HCl [Verapamil ER] 180 mg PO HS 01/24/20 01/02/21 Gabapentin 600 mg PO TID 02/20/20 01/02/21 OXcarbazepine [Oxtellar Xr] 150 mg PO HS 02/27/20 01/02/21 hydroCHLOROthiazide 25 mg PO DAILY 03/15/20 01/02/21 metFORMIN HCL 500 mg PO DAILY 07/25/20 01/02/21 SUMAtriptan succinate [Imitrex] 50 mg PO DAILY PRN 12/26/20 01/02/21 Prochlorperazine [Compazine] 10 mg PO Q8H PRN 01/02/21 01/02/21 Previous Rx's Medication Instructions Recorded Lidocaine 5% Patch [Lidoderm] 1 patch TOPICAL DAILY #5 patch 12/27/20 valACYclovir HCL [Valtrex] 1,000 mg PO Q8HR #21 tab 12/27/20 Dicyclomine [Bentyl] 20 mg PO TID PRN #20 tablet 01/01/21 Famotidine [Pepcid] 20 mg PO BID #30 tablet 01/01/21 Albuterol Sulfate [Albuterol 1 puff PO Q4-6H PRN #8.5 gm 02/16/23 Sulfate Hfa] Azithromycin [Zithromax] 250 mg PO DIRECTED #6 tab 02/16/23 Ipratropium-Albuterol Nebulize 3 ml INHALATION Q4-6H PRN #90 ml 02/16/23 [Duoneb 0.5 mg-3 mg/3 ml Soln] predniSONE 50 mg PO DAILY 5 Days #5 tab 02/16/23 Allergies Allergy/AdvReac Type Severity Reaction Status Date / Time NSAIDS (Non-Steroidal AdvReac Pt. states Verified 02/15/23 23:01 Anti-Inflamma NSAIDS have given her a GI bleed in the past. Review of Systems ROS Statement: Those systems with pertinent positive or pertinent negative responses have been documented in the HPI. ROS Other: All systems not noted in ROS Statement are negative. Past Medical History Past Medical History: Diabetes Mellitus, Fibromyalgia, GERD/Reflux, GI Bleed, Hyperlipidemia Additional Past Medical History / Comment(s): gallstones, kidney stones, IBS, migraines, tachycardia, Martine- Guevara tear, blood clot, pesudo tumor cerebrea History of Any Multi-Drug Resistant Organisms: None Reported Past Surgical History: Section, Cholecystectomy, Tubal Ligation Additional Past Surgical History / Comment(s): neck biopsy (lymph node ) d&c; LP shunt May 13 2019 feb 0211/2019 -revision, stent/ lithotripsy on left, cystoscopy, shunt revises july 28. Past Anesthesia/Blood Transfusion Reactions: No Reported Reaction Past Psychological History: Anxiety, Bipolar, Depression, PTSD Smoking Status: Vaper Past Alcohol Use History: Rare Past Drug Use History: Marijuana - Past Family History Mother Family Medical History: Diabetes Mellitus, Hyperlipidemia, Hypertension, Myocardial Infarction (CT) Additional Family Medical History / Comment(s): CT X 3 Father Family Medical History: Congestive Heart Failure (CHF), Hyperlipidemia, Hypertension, Myocardial Infarction (CT) Additional Family Medical History / Comment(s): mi x 3 Son(s) Family Medical History: No Reported History General Exam Limitations: no limitations General appearance: alert, in no apparent distress Head exam: Present: atraumatic, normocephalic, normal inspection Respiratory exam: Present: normal lung sounds bilaterally. Absent: respiratory distress, wheezes, rales, rhonchi, stridor Cardiovascular Exam: Present: regular rate, normal rhythm, normal heart sounds. Absent: systolic murmur, diastolic murmur, rubs, gallop, clicks Neurological exam: Present: alert, oriented X3, CN II-XII intact Psychiatric exam: Present: normal affect, normal mood Skin exam: Present: warm, dry, intact, normal color. Absent: rash Course Vital Signs 02/15/23 02/16/23 02/16/23 23:01 00:02 00:06 Temperature 98.7 F Pulse Rate 108 H 80 84 Respiratory 18 Rate Blood Pressure 126/72 O2 Sat by Pulse 98 Oximetry 02/16/23 01:04 Temperature Pulse Rate 88 Respiratory 18 Rate Blood Pressure 165/84 O2 Sat by Pulse 98 Oximetry Medical Decision Making - Medical Decision Making This is a 32-year-old female who presents to the emergency department for coughing and congestion. Was pt. sent in by a medical professional or institution? @ -No Did you speak to anyone other than the patient for history? @ -No Did you review nursing and triage notes? @ -Yes, and I agree, it is accurate with regards to the patient's symptoms. Were old charts reviewed? @ -No Differential Diagnosis? @ -Differential Cough: Influenza, Covid, RSV, croup, allergic rhinitis, GERD, pneumonia, bronchitis, COPD, viral pharyngitis, streptococcal pharyngitis, this is not meant to be an all-inclusive list. EKG interpreted by me (3pts min.)? @ -Not obtained X-rays interpreted by me (1pt min.)? @ -Chest x-ray obtained, my interpretation identifies no localized consolidations or infiltrates. CT interpreted by me (1pt min.)? @ -Not obtained U/S interpreted by me (1pt. min.)? @ -Not obtained What testing was considered but not performed? (CT, X-rays, U/S, labs)? Why? @ -None What meds were considered but not given? Why? @ -None Did you discuss the management of the patient with other professionals? @ -No Did you reconcile home meds? @ -No Was smoking cessation discussed for >3mins.? @ -No Was critical care preformed (if so, how long)? @ -No Were there social determinants of health that impacted care today? How? (Homelessness, low income, unemployed, alcoholism, drug addiction, transportation, low edu. Level, literacy, decrease access to med. care, longterm, rehab)? @ -No Was there de-escalation of care discussed even if they declined? (Discuss DNR or withdrawal of care, Hospice)? @ -No What co-morbidities impacted this encounter? (DM, HTN, Smoking, COPD, CAD, C ancer, CVA, Hep., AIDS, mental health diagnosis, sleep apnea, morbid obesity)? @ -None Was patient admitted / discharged? @ -Discharged. Covid, influenza, and RSV testing were negative. Chest x-ray reveals no acute process. Patient given IM Solu-Medrol and a DuoNeb breathing treatment with improvement in symptoms. Advised that this is most likely a viral process. Prescription for prednisone, albuterol inhaler, and DuoNeb breathing treatments provided with dosing instructions reviewed. She will otherwise continue with supportive care. Undiagnosed new problem with uncertain prognosis? @ -None Drug Therapy requiring intensive monitoring for toxicity (Heparin, Nitro, Insulin, Cardizem)? @ -None Were any procedures done? @ -None Diagnosis/symptom? @ -Cough, viral URI Acute, or Chronic, or Acute on Chronic? @ -Acute Uncomplicated (without systemic symptoms) or Complicated (systemic symptoms)? @ -Uncomplicated Side effects of treatment? @ -None Exacerbation, Progression, or Severe Exacerbation] @ -Not applicable Poses a threat to life or bodily function? @ -No Return precautions reviewed in depth, the patient is instructed to return to the emergency department with any new, worsening, or concerning symptoms. Patient verbalized understanding. This case was discussed in detail with the attending ED physician, Dr. Ordoenz. Presentation, findings, and treatment plan discussed in detail as well. - Lab Data Lab Results 02/16/23 Range/Units 00:04 Influenza Type A (PCR) Not Detected (Not Detectd) Influenza Type B (PCR) Not Detected (Not Detectd) RSV (PCR) Not Detected (Not Detectd) SARS-CoV-2 (PCR) Not Detected (Not Detectd) - Radiology Data Radiology results: report reviewed, image reviewed Disposition Clinical Impression: Cough, Shortness of breath Disposition: HOME SELF-CARE Instructions (If sedation given, give patient instructions): Acute Bronchitis (ED), Cold Symptoms (ED), Acute Cough (ED) Additional Instructions: Return to the emergency department with any new, worsening, or concerning symptoms. Take the antibiotic as prescribed for 5 days. Take the prednisone daily for 5 days. You can use the DuoNeb breathing treatments every 4-6 hours. The albuterol inhaler can also be used every 4-6 hours. Try to use one or the other as opposed to taking them together. Otherwise continue with supportive care. Follow up with your primary care provider in 1-2 days. Prescriptions: Albuterol Sulfate [Albuterol Sulfate Hfa] 1 puff PO Q4-6H PRN #8.5 gm PRN Reason: Shortness Of Breath Ipratropium-Albuterol Nebulize [Duoneb 0.5 mg-3 mg/3 ml Soln] 3 ml INHALATION Q4-6H PRN #90 ml PRN Reason: Shortness Of Breath predniSONE 50 mg PO DAILY 5 Days #5 tab Azithromycin [Zithromax] 250 mg PO DIRECTED #6 tab Is patient prescribed a controlled substance at d/c from ED?: No Referrals: Olvin Keenan MD [Primary Care Provider] - 1-2 days
[2023-02-15] MEDS ORDERED: MORPHINE SULFATE 2 MG/ML SYRINGE IVP STA (23:44)
[2023-02-15] MEDS ORDERED: MORPHINE SULFATE 2 MG/ML SYRINGE IM STA (23:48)
--- NOTE | 2023-02-16 00:25 | XR ---
EXAM: XR Chest, 2 Views CLINICAL HISTORY: ITS.REASON XR Reason: Cough, MITCHEL TECHNIQUE: Frontal and lateral views of the chest. COMPARISON: No relevant prior studies available. FINDINGS: Lungs: Unremarkable. No consolidation. Pleural space: Unremarkable. No pneumothorax. Heart: Unremarkable. No cardiomegaly. Mediastinum: Unremarkable. Bones/joints: Unremarkable. IMPRESSION: Normal chest x-rays.
[2023-02-16 01:30] VITALS: BP 165/84; PULSE 88
== END 2023-02-16 01:27 | disposition home or self-care (01) ==
LOC: EC 22:58
DX: R06.02 Shortness of breath (principal); R05.9 Cough, unspecified; E11.9 Type 2 diabetes mellitus without complications; E78.5 Hyperlipidemia, unspecified; F31.9 Bipolar disorder, unspecified; F41.9 Anxiety disorder, unspecified; F12.90 Cannabis use, unspecified, uncomplicated; F17.290 Nicotine dependence, other tobacco product, uncomplicated; Z79.899 Other long term (current) drug therapy; Z79.84 Long term (current) use of oral hypoglycemic drugs; Z88.8 Allergy status to other drugs, medicaments and biological substances; Z20.822 Contact with and (suspected) exposure to COVID-19
CPT/HCPCS: 71046; 99283; 96372 ×2; J2930; J2270; 87636; 94640

== ENCOUNTER 2023-02-20 22:32 | Emergency (ER) | payer OTHER ==
[2023-02-20 22:50] VITALS: TEMP 99.2
[2023-02-20] MEDS ORDERED: SODIUM CHLORIDE 0.9% 500 ML 500 ML IV STA (23:14)
--- NOTE | 2023-02-20 23:19 | ED ---
General Adult HPI - General Chief complaint: Abdominal Pain Stated complaint: Right side abdominal pain Time Seen by Provider: 02/20/23 22:51 Source: patient, RN notes reviewed, old records reviewed Mode of arrival: ambulatory Limitations: no limitations - History of Present Illness Initial comments: 32 yo presenting with right-sided flank and abdominal pain radiating to her groin. Patient states she has history of kidney stones. She states this is somewhat similar. No vomiting. No fever. Pain began today. - Related Data Home Medications Medication Instructions Recorded Confirmed Pravastatin Sodium [Pravachol] 20 mg PO HS 01/20/18 01/02/21 LORazepam [Ativan] 1 mg PO HS PRN 11/24/18 01/02/21 buPROPion HCL [Wellbutrin XL] 300 mg PO DAILY 12/15/19 01/02/21 traZODone HCL 50 mg PO HS 12/15/19 01/02/21 ARIPiprazole 20 mg PO HS 01/09/20 01/02/21 ARIPiprazole [Abilify] 5 mg PO DAILY 01/09/20 01/02/21 Topiramate 50 mg PO HS 01/09/20 01/02/21 busPIRone HCL 15 mg PO TID 01/09/20 01/02/21 Amitriptyline HCl [Elavil] 75 mg PO BID 01/24/20 01/02/21 Verapamil HCl [Verapamil ER] 180 mg PO HS 01/24/20 01/02/21 Gabapentin 600 mg PO TID 02/20/20 01/02/21 OXcarbazepine [Oxtellar Xr] 150 mg PO HS 02/27/20 01/02/21 hydroCHLOROthiazide 25 mg PO DAILY 03/15/20 01/02/21 metFORMIN HCL 500 mg PO DAILY 07/25/20 01/02/21 SUMAtriptan succinate [Imitrex] 50 mg PO DAILY PRN 12/26/20 01/02/21 Prochlorperazine [Compazine] 10 mg PO Q8H PRN 01/02/21 01/02/21 Previous Rx's Medication Instructions Recorded Lidocaine 5% Patch [Lidoderm] 1 patch TOPICAL DAILY #5 patch 12/27/20 valACYclovir HCL [Valtrex] 1,000 mg PO Q8HR #21 tab 12/27/20 Dicyclomine [Bentyl] 20 mg PO TID PRN #20 tablet 01/01/21 Famotidine [Pepcid] 20 mg PO BID #30 tablet 01/01/21 Albuterol Sulfate [Albuterol 1 puff PO Q4-6H PRN #8.5 gm 02/16/23 Sulfate Hfa] Azithromycin [Zithromax] 250 mg PO DIRECTED #6 tab 02/16/23 Ipratropium-Albuterol Nebulize 3 ml INHALATION Q4-6H PRN #90 ml 02/16/23 [Duoneb 0.5 mg-3 mg/3 ml Soln] predniSONE 50 mg PO DAILY 5 Days #5 tab 02/16/23 Allergies Allergy/AdvReac Type Severity Reaction Status Date / Time aspirin AdvReac Unknown Verified 02/20/23 22:36 ketorolac [From Toradol] AdvReac Unknown Verified 02/20/23 22:35 NSAIDS (Non-Steroidal AdvReac Pt. states Verified 02/15/23 23:01 Anti-Inflamma NSAIDS have given her a GI bleed in the past. Review of Systems ROS Statement: Those systems with pertinent positive or pertinent negative responses have been documented in the HPI. ROS Other: All systems not noted in ROS Statement are negative. Past Medical History Past Medical History: Diabetes Mellitus, Fibromyalgia, GERD/Reflux, GI Bleed, Hyperlipidemia Additional Past Medical History / Comment(s): gallstones, kidney stones, IBS, migraines, tachycardia, Martine- Guevara tear, blood clot, pesudo tumor cerebrea History of Any Multi-Drug Resistant Organisms: None Reported Past Surgical History: Section, Cholecystectomy, Tubal Ligation Additional Past Surgical History / Comment(s): neck biopsy (lymph node ) d&c; LP shunt May 13 2019 feb 0211/2019 -revision, stent/ lithotripsy on left, cystoscopy, shunt revises july 28. Past Anesthesia/Blood Transfusion Reactions: No Reported Reaction Past Psychological History: Anxiety, Bipolar, Depression, PTSD Smoking Status: Vaper Past Alcohol Use History: Rare Past Drug Use History: Marijuana - Past Family History Mother Family Medical History: Diabetes Mellitus, Hyperlipidemia, Hypertension, Myocardial Infarction ([place]) Additional Family Medical History / Comment(s): [place] X 3 Father Family Medical History: Congestive Heart Failure (CHF), Hyperlipidemia, Hy pertension, Myocardial Infarction ([place]) Additional Family Medical History / Comment(s): mi x 3 Son(s) Family Medical History: No Reported History General Exam Limitations: no limitations General appearance: alert, in no apparent distress Head exam: Present: atraumatic, normocephalic Eye exam: Present: normal appearance Neck exam: Present: normal inspection Respiratory exam: Present: normal lung sounds bilaterally. Absent: respiratory distress, wheezes Cardiovascular Exam: Present: regular rate, normal rhythm GI/Abdominal exam: Present: soft, tenderness (Minimal right-sided lower abdominal pain). Absent: distended Extremities exam: Present: normal inspection, normal capillary refill. Absent: calf tenderness Neurological exam: Present: alert, oriented X3, CN II-XII intact. Absent: motor sensory deficit Psychiatric exam: Present: normal affect, normal mood Skin exam: Present: warm, dry, intact. Absent: cyanosis, diaphoretic Course Vital Signs 02/20/23 02/21/23 02/21/23 22:36 00:29 00:45 Temperature 99.2 F Pulse Rate 104 H 98 99 Respiratory 17 18 18 Rate Blood Pressure 160/82 132/73 128/59 O2 Sat by Pulse 96 97 97 Oximetry Medical Decision Making - Medical Decision Making Was pt. sent in by a medical professional or institution (, PA, CLAIMS ADJUSTER, urgent care, hospital, or shelter...) When possible be specific @ -[No] Did you speak to anyone other than the patient for history (EMS, parent, family, police, friend...)? What history was obtained from this source @ -[No] Did you review nursing and triage notes (agree or disagree)? Why? @ -[I reviewed and agree with nursing and triage notes] Were old charts reviewed (outside hosp., previous admission, EMS record, old EKG, old radiological studies, urgent care reports/EKG's, shelter records)? Report findings @ -[No old charts were reviewed] Differential Diagnosis (chest pain, altered mental status, abdominal pain women, abdominal pain men, vaginal bleeding, weakness, fever, dyspnea, syncope, headache, dizziness, GI bleed, back pain, seizure, CVA, palpatations, mental health, musculoskeletal)? @ Differential Abdominal Pain Women: Appendicitis, Cholecystitis, diverticulosis, ischemic bowel, pancreatitis, hepatitis, UTI, gastroenteritis, AAA, incarcerated hernia, bowel obstruction, constipation, inflammatory bowel, hepatitis, peptic ulcer disease, splenic infarction, perforated viscus, vulvitis, ovarian torsion, PID, kidney stone, placenta abruption, this is not meant to be an all-inclusive list EKG interpreted by me (3pts min.). @ -[As above] X-rays interpreted by me (1pt min.). @ -[None done] CT interpreted by me (1pt min.). @ -[CT negative for acute process, no appendicitis U/S interpreted by me (1pt. min.). @ -[None done] What testing was considered but not performed or refused? (CT, X-rays, U/S, labs)? Why? @ -[None] What meds were considered but not given or refused? Why? @ -[None] Did you discuss the management of the patient with other professionals (yomi yanez i.e. , PA, CLAIMS ADJUSTER, lab, RT, psych nurse, adoption social worker, agency sales development associate, teacher, medical officer, correctional case records supervisor)? Give summary @ -[No] Was smoking cessation discussed for >3mins.? @ -[No] Was critical care preformed (if so, how long)? @ -[No] Were there social determinants of health that impacted care today? How? (Homelessness, low income, unemployed, alcoholism, drug addiction, transpo rtation, low edu. Level, literacy, decrease access to med. care, residential, rehab)? @ -[No] Was there de-escalation of care discussed even if they declined (Discuss DNR or withdrawal of care, Hospice)? DNR status @ -[No] What co-morbidities impacted this encounter? (DM, HTN, Smoking, COPD, CAD, Cancer, CVA, ARF, Chemo, Hep., AIDS, mental health diagnosis, sleep apnea, morbid obesity)? @ -[Chronic abdominal pain Was patient admitted / discharged? Hospital course, mention meds given and r oute, prescriptions, significant lab abnormalities, going to OR and other pertinent info. @ -[32-year-old female with right flank pain, right lower quadrant abdominal pain. Patient has a leukocytosis of 18. Contaminated urine without hematuria or definitive signs of infection. CT abdomen pelvis is negative for appendicitis or acute findings. Patient has stable vitals and although she has a leukocytosis I do feel she is stable for discharge with close return parameters. Undiagnosed new problem with uncertain prognosis? @ -[No] Drug Therapy requiring intensive monitoring for toxicity (Heparin, Nitro, Insulin, Cardizem)? @ -[No] Were any procedures done? @ -[No] Diagnosis/symptom? @ Abdominal pain Acute, or Chronic, or Acute on Chronic? @ -[Acute on chronic Uncomplicated (without systemic symptoms) or Complicated (systemic symptoms)? @ -Complicated Side effects of treatment? @ -[No] Exacerbation, Progression, or Severe Exacerbation? @ -[No] Poses a threat to life or bodily function? How? (Chest pain, USA, CO, pneumonia, PE, COPD, DKA, ARF, appy, cholecystitis, CVA, Diverticulitis, Homicidal, Suicidal, threat to staff... and all critical care pts) @ -[Low risk at this time. - Lab Data Result diagrams: 02/21/23 00:12 02/21/23 00:12 Lab Results 02/20/23 02/21/23 02/21/23 Range/Units 23:35 00:12 00:12 WBC 17.6 H (3.8-10.6) k/uL RBC 4.71 (3.80-5.40) m/uL Hgb 12.9 (11.4-16.0) gm/dL Hct 38.8 (34.0-46.0) % MCV 82.4 (80.0-100.0) fL MCH 27.4 (25.0-35.0) pg MCHC 33.2 (31.0-37.0) g/dL RDW 14.5 (11.5-15.5) % Plt Count 371 (150-450) k/uL MPV 7.6 Sodium 138 (137-145) mmol/L Potassium 3.9 (3.5-5.1) mmol/L Chloride 106 (98-107) mmol/L Carbon Dioxide 20 L (22-30) mmol/L Anion Gap 12 mmol/L BUN 22 H (7-17) mg/dL Creatinine 0.80 (0.52-1.04) mg/dL Est GFR (CKD-EPI)AfAm >90 (>60 ml/min/1.73 sqM) Est GFR (CKD-EPI)NonAf >90 (>60 ml/min/1.73 sqM) Glucose 151 H (74-99) mg/dL Calcium 9.3 (8.4-10.2) mg/dL Total Bilirubin 0.6 (0.2-1.3) mg/dL AST 35 (14-36) U/L ALT 62 H (4-34) U/L Alkaline Phosphatase 112 (38-126) U/L Total Protein 6.2 L (6.3-8.2) g/dL Albumin 3.7 (3.5-5.0) g/dL Amylase 44 (30-110) U/L Lipase 101 (23-300) U/L Urine Color Yellow Urine Appearance Clear (Clear) Urine pH 5.5 (5.0-8.0) Ur Specific [place] >1.030 (1.001-1.035) Urine Protein 1+ H (Negative) Urine Glucose (UA) Negative (Negative) Urine Ketones Negative (Negative) Urine Blood Negative (Negative) Urine Nitrite Negative (Negative) Urine Bilirubin Negative (Negative) Urine Urobilinogen <2.0 (<2.0) mg/dL Ur Leukocyte Esterase Negative (Negative) Urine RBC 1 (0-5) /hpf Urine WBC 5 (0-5) /hpf Ur Squamous Epith Cells 16 H (0-4) /hpf Calcium Oxalate Crystal Many H (None) /hpf Hyaline Casts 4 H (0-2) /lpf Urine Mucus Few H (None) /hpf Disposition Clinical Impression: Abdominal pain Disposition: HOME SELF-CARE Condition: Fair Instructions (If sedation given, give patient instructions): Abdominal Pain (ED) Is patient prescribed a controlled substance at d/c from ED?: No Referrals: Olvin Keenan MD [Primary Care Provider] - 1-2 days Time of Disposition: 02:34
[2023-02-21 00:27] LABS: Calcium Oxalate Crystals,Urine Many /hpf; Hyaline Casts,Urine 4 /lpf (0-2); Mucus,Urine Few /hpf; RBC,Urine 1 /hpf (0-5); Squamous Epithelial Cell,Urine 16 /hpf (0-4); WBC,Urine 5 /hpf (0-5)
[2023-02-21 00:37] LABS: Appearance,Urine Clear (Clear); Bilirubin,Urine Negative (Negative); Blood,Urine Negative (Negative); Color,Urine Yellow; Glucose,Urine (UA) Negative (Negative); Ketones,Urine Negative (Negative); Leukocyte Esterase,Urine Negative (Negative); Nitrite,Urine Negative (Negative); PH, Urine 5.5 (5.0-8.0); Protein,Urine 1+ (Negative); Specific Gravity,Urine >1.030 (1.001-1.035); Urobilinogen,Urine <2.0 mg/dL (<2.0)
[2023-02-21 00:40] LABS: ALT 62 U/L (4-34); AST 35 U/L (14-36); African American GFR (CKD) >90 (>60 ml/min/1.73 sqM); Albumin 3.7 g/dL (3.5-5.0); Alkaline Phosphatase 112 U/L (38-126); Amylase 44 U/L (30-110); Anion Gap 12 mmol/L; Blood Urea Nitrogen 22 mg/dL (7-17); Calcium 9.3 mg/dL (8.4-10.2); Carbon Dioxide 20 mmol/L (22-30); Chloride 106 mmol/L (98-107); Glucose 151 mg/dL (74-99); Lipase 101 U/L (23-300); Non-African American GFR(CKD) >90 (>60 ml/min/1.73 sqM); Potassium 3.9 mmol/L (3.5-5.1); Sodium 138 mmol/L (137-145); Total Bilirubin 0.6 mg/dL (0.2-1.3); Total Protein 6.2 g/dL (6.3-8.2)
--- NOTE | 2023-02-21 00:46 | XR ---
EXAM: XR Abdomen, 1 View CLINICAL HISTORY: ITS.REASON XR Reason: abdominal pain TECHNIQUE: Frontal supine view of the abdomen/pelvis. COMPARISON: No relevant prior studies available. FINDINGS: Gastrointestinal tract: Nonobstructed bowel gas pattern. Organs: Cholecystectomy clips. Bones/joints: Unremarkable. Tubes, lines and devices: Multiple catheters project over the LEFT abdomen, correlate with physical exam. IMPRESSION: 1. Nonobstructed bowel gas pattern. 2. Multiple catheters project over the LEFT abdomen, correlate with physical exam.
[2023-02-21] MEDS ORDERED: HYDROmorphone 0.5 MG/0.5 ML SYRINGE IVP STA (00:51)
[2023-02-21 00:56] LABS: Basophils # (A) 0.1 k/uL (0-0.2); Basophils % (A) 1 %; Eosinophils # (A) 0.5 k/uL (0-0.7); Eosinophils % (A) 3 %; HCT 38.8 % (34.0-46.0); HGB 12.9 gm/dL (11.4-16.0); Lymphocytes # (A) 6.1 k/uL (1.0-4.8); Lymphocytes % (A) 35 %; MCH 27.4 pg (25.0-35.0); MCHC 33.2 g/dL (31.0-37.0); MCV 82.4 fL (80.0-100.0); Mean Platelet Volume 7.6; Monocytes # (A) 0.8 k/uL (0-1.0); Monocytes % (A) 4 %; Neutrophils # (A) 9.9 k/uL (1.3-7.7); Neutrophils % (A) 56 %; Platelet Count 371 k/uL (150-450); RBC 4.71 m/uL (3.80-5.40); RDW 14.5 % (11.5-15.5); WBC 17.6 k/uL (3.8-10.6)
[2023-02-21 01:20] VITALS: BP 128/59; PULSE 99; RESP 18
--- NOTE | 2023-02-21 02:28 | CT ---
EXAM: CT Abdomen and Pelvis With Intravenous Contrast CLINICAL HISTORY: rlq pain TECHNIQUE: Axial computed tomography images of the abdomen and pelvis with intravenous contrast. CTDI is 52.7 mGy and DLP is 2552.8 mGy-cm. This CT exam was performed using one or more of the following dose reduction techniques: automated exposure control, adjustment of the mA and/or kV according to patient size, and/or use of iterative reconstruction technique. COMPARISON: CT abdomen and pelvis dated 02/18/2022 FINDINGS: Lung bases: Unremarkable. No mass. No consolidation. ABDOMEN: Liver: Hepatic steatosis with mild hepatomegaly. Gallbladder and bile ducts: Cholecystectomy. No ductal dilation. Pancreas: Unremarkable. No mass. No ductal dilation. Spleen: Unremarkable. No splenomegaly. Adrenals: Unremarkable. No mass. Kidneys and ureters: The kidneys demonstrate normal enhancement. There is excreted contrast in the renal collecting systems and ureters, limiting evaluation for subtle nephrolithiasis. However, no hydronephrosis or obstructing nephrolithiasis identified. Stomach and bowel: The stomach is mildly distended with retained oral contents. No gastric mucosal thickening. No bowel obstruction or definite asymmetric bowel mucosal abnormality. Mild stool burden. PELVIS: Appendix: A normal caliber appendix is noted in the retrocecal region of the right lower quadrant. Bladder: The bladder is mildly distended with excreted contrast in the bladder, limiting evaluation for bladder stones. Reproductive: Unremarkable as visualized. ABDOMEN and PELVIS: Intraperitoneal space: Trace free fluid in the pelvis is noted. No loculation. No free air. Bones/joints: No acute fracture. No dislocation. Soft tissues: See below. No significant overlying soft tissue abnormality identified. Vasculature: Unremarkable. No abdominal aortic aneurysm. Lymph nodes: Unremarkable. No enlarged lymph nodes. Tubes, lines and devices: There is a small caliber intrathecal catheter which communicates with the intraperitoneal space via the left lateral subcutaneous soft tissues no evidence for disruption or kinking. A subcutaneous reservoir is noted along the left posterior lateral subcostal flank. IMPRESSION: 1. The kidneys demonstrate normal enhancement. There is excreted contrast in the renal collecting systems and ureters, limiting evaluation for subtle nephrolithiasis. However, no hydronephrosis or obstructing nephrolithiasis identified. 2. The stomach is mildly distended with retained oral contents. No gastric mucosal thickening. No bowel obstruction or definite asymmetric bowel mucosal abnormality. Mild stool burden. No pneumoperitoneum. Incidental normal caliber appendix.
== END 2023-02-21 02:50 | disposition home or self-care (01) ==
LOC: EC 22:32
DX: R10.31 Right lower quadrant pain (principal); E11.9 Type 2 diabetes mellitus without complications; K21.9 Gastro-esophageal reflux disease without esophagitis; E78.5 Hyperlipidemia, unspecified; F41.9 Anxiety disorder, unspecified; F31.9 Bipolar disorder, unspecified; F17.200 Nicotine dependence, unspecified, uncomplicated; F12.10 Cannabis abuse, uncomplicated; Z79.84 Long term (current) use of oral hypoglycemic drugs; Z79.899 Other long term (current) drug therapy; Z88.6 Allergy status to analgesic agent
CPT/HCPCS: 36415; 80053; 82150; 83690; 85025; 81001; 74018; 74177; 99284; 96374; J1170; Q9967

== ENCOUNTER 2023-02-28 23:37 | Emergency (ER) | payer OTHER ==
[2023-03-01 02:09] VITALS: BP 122/71; PULSE 92; RESP 20; TEMP 98.4
--- NOTE | 2023-03-01 04:37 | ED ---
General Adult HPI - General Chief complaint: Recheck/Abnormal Lab/Rx Stated complaint: Covid+ Time Seen by Provider: 03/01/23 00:21 Source: patient Mode of arrival: ambulatory Limitations: no limitations - History of Present Illness Initial comments: 32-year-old female presenting to the ED with a chief complaint of COVID testing. States her and her family have had cough, congestion for the past 2-3 days and tested positive today for COVID. States her work requires official documentation from a medical facility reporting positive diagnosis. Denies chest pain, shortness of breath, fever. No other complaints. - Related Data Home Medications Medication Instructions Recorded Confirmed Pravastatin Sodium [Pravachol] 20 mg PO HS 01/20/18 01/02/21 LORazepam [Ativan] 1 mg PO HS PRN 11/24/18 01/02/21 buPROPion HCL [Wellbutrin XL] 300 mg PO DAILY 12/15/19 01/02/21 traZODone HCL 50 mg PO HS 12/15/19 01/02/21 ARIPiprazole 20 mg PO HS 01/09/20 01/02/21 ARIPiprazole [Abilify] 5 mg PO DAILY 01/09/20 01/02/21 Topiramate 50 mg PO HS 01/09/20 01/02/21 busPIRone HCL 15 mg PO TID 01/09/20 01/02/21 Amitriptyline HCl [Elavil] 75 mg PO BID 01/24/20 01/02/21 Verapamil HCl [Verapamil ER] 180 mg PO HS 01/24/20 01/02/21 Gabapentin 600 mg PO TID 02/20/20 01/02/21 OXcarbazepine [Oxtellar Xr] 150 mg PO HS 02/27/20 01/02/21 hydroCHLOROthiazide 25 mg PO DAILY 03/15/20 01/02/21 metFORMIN HCL 500 mg PO DAILY 07/25/20 01/02/21 SUMAtriptan succinate [Imitrex] 50 mg PO DAILY PRN 12/26/20 01/02/21 Prochlorperazine [Compazine] 10 mg PO Q8H PRN 01/02/21 01/02/21 Previous Rx's Medication Instructions Recorded Lidocaine 5% Patch [Lidoderm] 1 patch TOPICAL DAILY #5 patch 09/01/21 valACYclovir HCL [Valtrex] 1,000 mg PO Q8HR #21 tab 12/27/20 Dicyclomine [Bentyl] 20 mg PO TID PRN #20 tablet 01/01/21 Famotidine [Pepcid] 20 mg PO BID #30 tablet 01/01/21 Albuterol Sulfate [Albuterol 1 puff PO Q4-6H PRN #8.5 gm 02/16/23 Sulfate Hfa] Azithromycin [Zithromax] 250 mg PO DIRECTED #6 tab 02/16/23 Ipratropium-Albuterol Nebulize 3 ml INHALATION Q4-6H PRN #90 ml 02/16/23 [Duoneb 0.5 mg-3 mg/3 ml Soln] predniSONE 50 mg PO DAILY 5 Days #5 tab 02/16/23 Allergies Allergy/AdvReac Type Severity Reaction Status Date / Time aspirin AdvReac Unknown Verified 02/28/23 23:55 ketorolac [From Toradol] AdvReac Unknown Verified 02/28/23 23:55 NSAIDS (Non-Steroidal AdvReac Pt. states Verified 02/28/23 23:55 Anti-Inflamma NSAIDS have given her a GI bleed in the past. Review of Systems ROS Statement: Those systems with pertinent positive or pertinent negative responses have been documented in the HPI. ROS Other: All systems not noted in ROS Statement are negative. Past Medical History Past Medical History: Diabetes Mellitus, Fibromyalgia, GERD/Reflux, GI Bleed, Hyperlipidemia Additional Past Medical History / Comment(s): gallstones, kidney stones, IBS, migraines, tachycardia, Martine- Guevara tear, blood clot, pesudo tumor cerebrea History of Any Multi-Drug Resistant Organisms: None Reported Past Surgical History: Section, Cholecystectomy, Tubal Ligation Additional Past Surgical History / Comment(s): neck biopsy (lymph node ) d&c; LP shunt May 13 2019 feb 0211/2019 -revision, stent/ lithotripsy on left, cystoscopy, shunt revises july 28. Past Anesthesia/Blood Transfusion Reactions: No Reported Reaction Past Psychological History: Anxiety, Bipolar, Depression, PTSD Smoking Status: Vaper Past Alcohol Use History: Rare Past Drug Use History: Marijuana - Past Family History Mother Family Medical History: Diabetes Mellitus, Hyperlipidemia, Hypertension, Myocardial Infarction ([place]) Additional Family Medical History / Comment(s): [place] X 3 Father Family Medical History: Congestive Heart Failure (CHF), Hyperlipidemia, Hypertension, Myocardial Infarction ([place]) Additional Family Medical History / Comment(s): mi x 3 Son(s) Family Medical History: No Reported History General Exam Limitations: no limitations General appearance: alert, in no apparent distress ENT exam: Present: mucous membranes moist Respiratory exam: Present: normal lung sounds bilaterally Cardiovascular Exam: Present: regular rate, normal rhythm GI/Abdominal exam: Present: soft Neurological exam: Present: alert, oriented X3 Course Vital Signs 02/28/23 03/01/23 23:55 01:48 Temperature 98.9 F 98.4 F Pulse Rate 96 92 Respiratory 18 20 Rate Blood Pressure 146/85 122/71 O2 Sat by Pulse 98 98 Oximetry Medical Decision Making - Medical Decision Making Was pt. sent in by a medical professional or institution (Dr. PA, MIXER OPERATOR TABLETS, urgent care, hospital, or half-way...) When possible be specific @ -No Did you speak to anyone other than the patient for history (EMS, parent, family, police, friend...)? What history was obtained from this source @ -No Did you review nursing and triage notes (agree or disagree)? Why? @ -I reviewed and agree with nursing and triage notes Were old charts reviewed (outside hosp., previous admission, EMS record, old EKG, old radiological studies, urgent care reports/EKG's, half-way records)? Report findings @ -No old charts were reviewed Differential Diagnosis (chest pain, altered mental status, abdominal pain women, abdominal pain men, vaginal bleeding, weakness, fever, dyspnea, syncope, headache, dizziness, GI bleed, back pain, seizure, CVA, palpatations, mental health, musculoskeletal)? @ -Differential Dyspnea: Coronary syndrome, arrhythmia, tamponade, asthma, COPD, pulmonary embolism, pneumonia, pneumothorax, pulmonary effusion, anaphylaxis, diabetic ketoacidosis, flailed chest, pulmonary contusion, diaphragmatic rupture, anemia, neuromuscular, this is not meant to be an all-inclusive list. EKG interpreted by me (3pts min.). @ -None X-rays interpreted by me (1pt min.). @ -None done CT interpreted by me (1pt min.). @ -None done U/S interpreted by me (1pt. min.). @ -None done What testing was considered but not performed or refused? (CT, X-rays, U/S, labs)? Why? @ -None What meds were considered but not given or refused? Why? @ -None Did you discuss the management of the patient with other professionals (professionals i.e. , PA, MIXER OPERATOR TABLETS, lab, RT, psych nurse, social services technician, robotic welder, teacher, family preservation officer, case coordinator)? Give summary @ -No Was smoking cessation discussed for >3mins.? @ -No Was critical care preformed (if so, how long)? @ -No Were there social determinants of health that impacted care today? How? (Homelessness, low income, unemployed, alcoholism, drug addiction, transportation, low edu. Level, literacy, decrease access to med. care, snf, rehab)? @ -No Was there de-escalation of care discussed even if they declined (Discuss DNR or withdrawal of care, Hospice)? DNR status @ -No What co-morbidities impacted this encounter? (DM, HTN, Smoking, COPD, CAD, Cancer, CVA, ARF, Chemo, Hep., AIDS, mental health diagnosis, sleep apnea, morbid obesity)? @ -None Was patient admitted / discharged? Hospital course, mention meds given and route, prescriptions, significant lab abnormalities, going to OR and other pertinent info. @ -Discharge A 32-year-old female with positive COVID test at home done today presenting to the ED for a test from a health care facility as required from her work. No dyspnea or fever. At this time, vital signs stable afebrile. Patient did test positive. Discharged home in stable condition. Discussed return precautions with patient who verbalizes agree. Undiagnosed new problem with uncertain prognosis? @ -No Drug Therapy requiring intensive monitoring for toxicity (Heparin, Nitro, Insulin, Cardizem)? @ -No Were any procedures done? @ -No Diagnosis/symptom? @ -COVID Acute, or Chronic, or Acute on Chronic? @ -Acute Uncomplicated (without systemic symptoms) or Complicated (systemic symptoms)? @ -Uncomplicated Side effects of treatment? @ -No Exacerbation, Progression, or Severe Exacerbation? @ -No Poses a threat to life or bodily function? How? (Chest pain, USA, MA, pneumonia, PE, COPD, DKA, ARF, appy, cholecystitis, CVA, Diverticulitis, Homicidal, Suicidal, threat to staff... and all critical care pts) @ -No - Lab Data Lab Results 02/28/23 Range/Units 23:59 Coronavirus (PCR) Detected A (Not Detectd) Disposition Clinical Impression: COVID-19 Disposition: HOME SELF-CARE Instructions (If sedation given, give patient instructions): COVID-19 (Coronavirus Disease 2019) (ED) Is patient prescribed a controlled substance at d/c from ED?: No Referrals: Olvin Keenan MD [Primary Care Provider] - 1-2 days
== END 2023-03-01 01:48 | disposition home or self-care (01) ==
LOC: EC 23:37
DX: U07.1 COVID-19 (principal); E11.9 Type 2 diabetes mellitus without complications; E78.5 Hyperlipidemia, unspecified; F41.9 Anxiety disorder, unspecified; F31.9 Bipolar disorder, unspecified; F17.290 Nicotine dependence, other tobacco product, uncomplicated; F12.90 Cannabis use, unspecified, uncomplicated; Z79.84 Long term (current) use of oral hypoglycemic drugs; Z79.899 Other long term (current) drug therapy
CPT/HCPCS: 87635; 99283

== ENCOUNTER 2023-03-14 21:28 | Emergency (ER) | payer OTHER ==
[2023-03-14 21:36] VITALS: TEMP 97.9
--- NOTE | 2023-03-14 21:58 | XR ---
EXAMINATION TYPE: XR chest 2V DATE OF EXAM: 03/14/2023 COMPARISON: 02/15/2023 HISTORY: 33-year-old female with cough TECHNIQUE: PA and lateral views FINDINGS: The cardiomediastinal silhouette, aorta, and pulmonary vasculature are within normal limits. Hazy den sities relating to large patient body habitus. Otherwise, lungs and pleural spaces are clear. IMPRESSION: No acute cardiopulmonary process.
--- NOTE | 2023-03-14 23:16 | ED ---
General Adult HPI - General Source: patient, RN notes reviewed Mode of arrival: ambulatory Limitations: no limitations <Piper Moyer - Last Filed: 03/14/23 23:20> <Ross Glez - Last Filed: 03/15/23 17:19> - General Chief complaint: Nausea/Vomiting/Diarrhea Stated complaint: Runny nose, cough, fever - History of Present Illness Initial comments: 33-year-old female presents emergency department for chief complaint of cough, congestion, sore throat 2 days. She reports that she recently had Covid 19 and is concerned that she has again. She also reports that her children have strep throat. (Piper Moyer) 33-year-old female presenting with chief complaint of URI-like symptoms. Patient is complaining of cough, congestion, sore throat over the last 2 days. Patient recently had Covid and states that she is concerned that she has again. Her children also have strep throat at this time and she is concerned for possible strep throat. No difficulty breathing or swallowing, fever, vomiting, diarrhea, chest pain. (Ross Glez) - Related Data Home Medications Medication Instructions Recorded Confirmed Pravastatin Sodium [Pravachol] 20 mg PO HS 01/20/18 01/02/21 LORazepam [Ativan] 1 mg PO HS PRN 11/24/18 01/02/21 buPROPion HCL [Wellbutrin XL] 300 mg PO DAILY 12/15/19 01/02/21 traZODone HCL 50 mg PO HS 12/15/19 01/02/21 ARIPiprazole 20 mg PO HS 01/09/20 01/02/21 ARIPiprazole [Abilify] 5 mg PO DAILY 01/09/20 01/02/21 Topiramate 50 mg PO HS 01/09/20 01/02/21 busPIRone HCL 15 mg PO TID 01/09/20 01/02/21 Amitriptyline HCl [Elavil] 75 mg PO BID 01/24/20 01/02/21 Verapamil HCl [Verapamil ER] 180 mg PO HS 01/24/20 01/02/21 Gabapentin 600 mg PO TID 02/20/20 01/02/21 OXcarbazepine [Oxtellar Xr] 150 mg PO HS 02/27/20 01/02/21 hydroCHLOROthiazide 25 mg PO DAILY 03/15/20 01/02/21 metFORMIN HCL 500 mg PO DAILY 07/25/20 01/02/21 SUMAtriptan succinate [Imitrex] 50 mg PO DAILY PRN 12/26/20 01/02/21 Prochlorperazine [Compazine] 10 mg PO Q8H PRN 01/02/21 01/02/21 Previous Rx's Medication Instructions Recorded Lidocaine 5% Patch [Lidoderm] 1 patch TOPICAL DAILY #5 patch 12/27/20 valACYclovir HCL [Valtrex] 1,000 mg PO Q8HR #21 tab 12/27/20 Dicyclomine [Bentyl] 20 mg PO TID PRN #20 tablet 01/01/21 Famotidine [Pepcid] 20 mg PO BID #30 tablet 01/01/21 Albuterol Sulfate [Albuterol 1 puff PO Q4-6H PRN #8.5 gm 02/16/23 Sulfate Hfa] Azithromycin [Zithromax] 250 mg PO DIRECTED #6 tab 02/16/23 Ipratropium-Albuterol Nebulize 3 ml INHALATION Q4-6H PRN #90 ml 02/16/23 [Duoneb 0.5 mg-3 mg/3 ml Soln] predniSONE 50 mg PO DAILY 5 Days #5 tab 02/16/23 Allergies Allergy/AdvReac Type Severity Reaction Status Date / Time aspirin AdvReac Unknown Verified 03/14/23 21:36 ketorolac [From Toradol] AdvReac Unknown Verified 03/14/23 21:36 NSAIDS (Non-Steroidal AdvReac Pt. states Verified 03/14/23 21:36 Anti-Inflamma NSAIDS have given her a GI bleed in the past. Review of Systems ROS Other: All systems not noted in ROS Statement are negative. <Piper Moyer - Last Filed: 03/14/23 23:20> ROS Other: All systems not noted in ROS Statement are negative. <Ross Glez - Last Filed: 03/15/23 17:19> ROS Statement: Those systems with pertinent positive or pertinent negative responses have been documented in the HPI. Past Medical History Past Medical History: Diabetes Mellitus, Fibromyalgia, GERD/Reflux, GI Bleed, Hyperlipidemia Additional Past Medical History / Comment(s): gallstones, kidney stones, IBS, migraines, tachycardia, Martine- Guevara tear, blood clot, pesudo tumor cerebrea History of Any Multi-Drug Resistant Organisms: None Reported Past Surgical History: Section, Cholecystectomy, Tubal Ligation Additional Past Surgical History / Comment(s): neck biopsy (lymph node ) d&c; LP shunt May 13 2019 feb 0211/2019 -revision, stent/ lithotripsy on left, cystoscopy, shunt revises july 28. Past Anesthesia/Blood Transfusion Reactions: No Reported Reaction Past Psychological History: Anxiety, Bipolar, Depression, PTSD Smoking Status: Vaper Past Alcohol Use History: Rare Past Drug Use History: Marijuana - Past Family History Mother Family Medical History: Diabetes Mellitus, Hyperlipidemia, Hypertension, Myocardial Infarction ([place]) Additional Family Medical History / Comment(s): [place] X 3 Father Family Medical History: Congestive Heart Failure (CHF), Hyperlipidemia, Hypertension, Myocardial Infarction ([place]) Additional Family Medical History / Comment(s): mi x 3 Son(s) Family Medical History: No Reported History <Piper Moyer - Last Filed: 03/14/23 23:20> General Exam Limitations: no limitations <Piper Moyer - Last Filed: 03/14/23 23:20> Limitations: no limitations General appearance: alert, in no apparent distress Head exam: Present: atraumatic, normocephalic, normal inspection Eye exam: Present: normal appearance, EOMI ENT exam: Present: normal oropharynx, mucous membranes moist Neck exam: Present: normal inspection, full ROM Respiratory exam: Present: normal lung sounds bilaterally. Absent: respiratory distress, wheezes, rales, rhonchi, stridor Cardiovascular Exam: Present: regular rate, normal rhythm, normal heart sounds. Absent: systolic murmur, diastolic murmur, rubs, gallop, clicks Neurological exam: Present: alert, oriented X3 Psychiatric exam: Present: normal affect, normal mood Skin exam: Present: warm, dry, intact, normal color. Absent: rash <Ross Glez - Last Filed: 03/15/23 17:19> - General Exam Comments Initial Comments: Visual Physical Exam Vital signs reviewed General: Well-appearing, nontoxic, no acute distress. Head: Normocephalic, atraumatic Eyes: PERRLA, EOMI ENT: Airway patent Chest: Nonlabored breathing Skin: No visual rash, normal skin tone Neuro: Alert and oriented 3 Musculoskeletal: No gross abnormalities (Piper Moyer) Course Vital Signs 03/14/23 03/15/23 21:33 02:08 Temperature 97.9 F Pulse Rate 96 94 Respiratory 18 20 Rate Blood Pressure 163/102 135/90 O2 Sat by Pulse 99 99 Oximetry Medical Decision Making <Piper Moyer - Last Filed: 03/14/23 23:20> <Ross Glez - Last Filed: 03/15/23 17:19> - Medical Decision Making I preformed the quick note portion of this chart. Electronically signed by Piper Moyer PA-C (Piper Moyer) Was pt. sent in by a medical professional or institution ([facility], VETERINARY ANATOMIST, urgent care, hospital, or snf...) When possible be specific @ -No Did you speak to anyone other than the patient for history (EMS, parent, family, police, friend...)? What history was obtained from this source @ -No Did you review nursing and triage notes (agree or disagree)? Why? @ -I reviewed and agree with nursing and triage notes Were old charts reviewed (outside hosp., previous admission, EMS record, old EKG, old radiological studies, urgent care reports/EKG's, snf records)? Report findings @ -No old charts were reviewed Differential Diagnosis (chest pain, altered mental status, abdominal pain women, abdominal pain men, vaginal bleeding, weakness, fever, dyspnea, syncope, headache, dizziness, GI bleed, back pain, seizure, CVA, palpatations, mental health, musculoskeletal)? @ -Differential includes group A strep, Covid, RSV, influenza, pneumonia, this is not an all inclusive list EKG interpreted by me (3pts min.). @ -As above X-rays interpreted by me (1pt min.). @ -Chest X-ray shows no acute process CT interpreted by me (1pt min.). @ -None done U/S interpreted by me (1pt. min.). @ -None done What testing was considered but not performed or refused? (CT, X-rays, U/S, labs)? Why? @ -None What meds were considered but not given or refused? Why? @ -None Did you discuss the management of the patient with other professionals (professionals i.e. Dr., PA, VETERINARY ANATOMIST, lab, RT, psych nurse, manager social responsibility, hydrodynamics teacher, teacher, homicide squad commanding officer, telehealth case manager)? Give summary @ -No Was smoking cessation discussed for >3mins.? @ -No Was critical care preformed (if so, how long)? @ -No Were there social determinants of health that impacted care today? How? (Homelessness, low income, unemployed, alcoholism, drug addiction, transportation, low edu. Level, literacy, decrease access to med. care, penitentiary, rehab)? @ -No Was there de-escalation of care discussed even if they declined (Discuss DNR or withdrawal of care, Hospice)? DNR status @ -No What co-morbidities impacted this encounter? (DM, HTN, Smoking, COPD, CAD, Cancer, CVA, ARF, Chemo, Hep., AIDS, mental health diagnosis, sleep apnea, morbid obesity)? @ -None Was patient admitted / discharged? Hospital course, mention meds given and route, prescriptions, significant lab abnormalities, going to OR and other pertinent info. @ -33-year-old female presenting with chief complaint of URI-like symptoms. History and physical examination conducted. Patient is positive for Covid. She is negative for influenza, RSV, group A strep. Chest x-ray shows no acute findings. Patient is educated on today's findings as well as supportive management and quarantine guidelines.Follow-up with PCP. Report back to ER with any new or worsening symptoms. Discussed return parameters and answered all questions. Patient conveyed verbal understanding and agreed to the plan. I discussed this case in detail with my attending Dr. Ordonez Undiagnosed new problem with uncertain prognosis? @ -No Drug Therapy requiring intensive monitoring for toxicity (Heparin, Nitro, Insulin, Cardizem)? @ -No Were any procedures done? @ -No Diagnosis/symptom? @ -Covid Acute, or Chronic, or Acute on Chronic? @ -Acute Uncomplicated (without systemic symptoms) or Complicated (systemic symptoms)? @ -Uncomplicated Side effects of treatment? @ -No Exacerbation, Progression, or Severe Exacerbation? @ -No Poses a threat to life or bodily function? How? (Chest pain, USA, [place], pneumonia, PE, COPD, DKA, ARF, appy, cholecystitis, CVA, Diverticulitis, Homicidal, Suicidal, threat to staff... and all critical care pts) @ -No (Ross Glez) - Lab Data Lab Results 03/14/23 03/14/23 03/14/23 Range/Units 22:37 22:37 23:20 Influenza Type A (PCR) Not Detected (Not Detectd) Influenza Type B (PCR) Not Detected (Not Detectd) RSV (PCR) Not Detected (Not Detectd) SARS-CoV-2 (PCR) Detected A Detected A (Not Detectd) Group A Strep (PCR) NOT DETECTED (Not Detectd) Disposition <Piper Moyer - Last Filed: 03/14/23 23:20> Is patient prescribed a controlled substance at d/c from ED?: No Time of Disposition: 01:27 <Ross Glez - Last Filed: 03/15/23 17:19> Clinical Impression: COVID-19 Disposition: HOME SELF-CARE Condition: Good Instructions (If sedation given, give patient instructions): COVID-19 (Coronavirus Disease 2019) (ED) Additional Instructions: Follow-up with PCP. Report back to ER with any new or worsening symptoms. Alternate Motrin and Tylenol as needed for pain and fever control. Quarantine for 5 days. If after 5 days you are fever free and symptoms have mostly improved, you may then end quarantine and wore a mask while in public for an additional 5 days Referrals: Olvin Keenan MD [Primary Care Provider] - 1-2 days
[2023-03-15 02:13] VITALS: BP 135/90; PULSE 94; RESP 20
== END 2023-03-15 02:25 | disposition home or self-care (01) ==
LOC: EC 21:28
DX: U07.1 COVID-19 (principal); E11.9 Type 2 diabetes mellitus without complications; E78.5 Hyperlipidemia, unspecified; K21.9 Gastro-esophageal reflux disease without esophagitis; F41.9 Anxiety disorder, unspecified; F31.9 Bipolar disorder, unspecified; F17.290 Nicotine dependence, other tobacco product, uncomplicated; F12.90 Cannabis use, unspecified, uncomplicated; Z79.84 Long term (current) use of oral hypoglycemic drugs; Z79.899 Other long term (current) drug therapy; Z88.6 Allergy status to analgesic agent; Z88.8 Allergy status to other drugs, medicaments and biological substances
CPT/HCPCS: 71046; 87635; 87636; 87651; 99283

== ENCOUNTER 2023-05-12 16:04 | Emergency (ER) | payer OTHER ==
--- NOTE | 2023-05-12 16:43 | ED ---
Eye Problem HPI - General Chief complaint: Eye Problems Stated complaint: Right Eyelid swollen Time Seen by Provider: 05/12/23 16:11 Source: patient Mode of arrival: ambulatory Limitations: no limitations - History of Present Illness Initial comments: 33-year-old female presenting with chief complaint of pain and swelling to the right eyelid. Patient states this started this morning when she woke up. Concentrated mainly near the inner canthus. No vision changes. No pain or difficulty with extraocular motions. No watering or discharge. No injury or trauma. No fevers, neck pain, nausea, vomiting, proptosis. No new foods, medications, or topical products. - Related Data Home Medications Medication Instructions Recorded Confirmed Pravastatin Sodium [Pravachol] 20 mg PO HS 01/20/18 01/02/21 LORazepam [Ativan] 1 mg PO HS PRN 11/24/18 01/02/21 buPROPion HCL [Wellbutrin XL] 300 mg PO DAILY 12/15/19 01/02/21 traZODone HCL 50 mg PO HS 12/15/19 01/02/21 ARIPiprazole 20 mg PO HS 01/09/20 01/02/21 ARIPiprazole [Abilify] 5 mg PO DAILY 01/09/20 01/02/21 Topiramate 50 mg PO HS 01/09/20 01/02/21 busPIRone HCL 15 mg PO TID 01/09/20 01/02/21 Amitriptyline HCl [Elavil] 75 mg PO BID 01/24/20 01/02/21 Verapamil HCl [Verapamil ER] 180 mg PO HS 01/24/20 01/02/21 Gabapentin 600 mg PO TID 02/20/20 01/02/21 OXcarbazepine [Oxtellar Xr] 150 mg PO HS 02/27/20 01/02/21 hydroCHLOROthiazide 25 mg PO DAILY 03/15/20 01/02/21 metFORMIN HCL 500 mg PO DAILY 07/25/20 01/02/21 SUMAtriptan succinate [Imitrex] 50 mg PO DAILY PRN 12/26/20 01/02/21 Prochlorperazine [Compazine] 10 mg PO Q8H PRN 01/02/21 01/02/21 Previous Rx's Medication Instructions Recorded Lidocaine 5% Patch [Lidoderm] 1 patch TOPICAL DAILY #5 patch 12/27/20 valACYclovir HCL [Valtrex] 1,000 mg PO Q8HR #21 tab 12/27/20 Dicyclomine [Bentyl] 20 mg PO TID PRN #20 tablet 01/01/21 Famotidine [Pepcid] 20 mg PO BID #30 tablet 01/01/21 Albuterol Sulfate [Albuterol 1 puff PO Q4-6H PRN #8.5 gm 02/16/23 Sulfate Hfa] Azithromycin [Zithromax] 250 mg PO DIRECTED #6 tab 02/16/23 Ipratropium-Albuterol Nebulize 3 ml INHALATION Q4-6H PRN #90 ml 02/16/23 [Duoneb 0.5 mg-3 mg/3 ml Soln] predniSONE 50 mg PO DAILY 5 Days #5 tab 02/16/23 Erythromycin Ophth Oint [Romycin 1 applic RIGHT EYE Q8HR 5 Days #1 05/12/23 Ophth Oint] each Allergies Allergy/AdvReac Type Severity Reaction Status Date / Time aspirin AdvReac Unknown Verified 05/12/23 16:09 ketorolac [From Toradol] AdvReac Unknown Verified 05/12/23 16:09 NSAIDS (Non-Steroidal AdvReac Pt. states Verified 05/12/23 16:09 Anti-Inflamma NSAIDS have given her a GI bleed in the past. Review of Systems ROS Statement: Those systems with pertinent positive or pertinent negative responses have been documented in the HPI. ROS Other: All systems not noted in ROS Statement are negative. Past Medical History Past Medical History: Diabetes Mellitus, Fibromyalgia, GERD/Reflux, GI Bleed, Hyperlipidemia Additional Past Medical History / Comment(s): gallstones, kidney stones, IBS, migraines, tachycardia, Martine- Guevara tear, blood clot, pesudo tumor cerebrea History of Any Multi-Drug Resistant Organisms: None Reported Past Surgical History: Section, Cholecystectomy, Tubal Ligation Additional Past Surgical History / Comment(s): neck biopsy (lymph node ) d&c; LP shunt May 13 2019 feb 0211/2019 -revision, stent/ lithotripsy on left, cystos copy, shunt revises july 28. Past Anesthesia/Blood Transfusion Reactions: No Reported Reaction Past Psychological History: Anxiety, Bipolar, Depression, PTSD Smoking Status: Vaper Past Alcohol Use History: Rare Past Drug Use History: Marijuana - Past Family History Mother Family Medical History: Diabetes Mellitus, Hyperlipidemia, Hypertension, Myocardial Infarction ([place]) Additional Family Medical History / Comment(s): [place] X 3 Father Family Medical History: Congestive Heart Failure (CHF), Hyperlipidemia, Hypertension, Myocardial Infarction ([place]) Additional Family Medical History / Comment(s): mi x 3 Son(s) Family Medical History: No Reported History General Exam Limitations: no limitations General appearance: alert, in no apparent distress Head exam: Present: atraumatic, normocephalic Expanded Eyelids: Normal Inspection: Left, Stye: Right Pupils: Regular, Round: Bilateral Sclera/Conjunctival: Normal Inspection: Bilateral Neck exam: Present: normal inspection Respiratory exam: Absent: respiratory distress Cardiovascular Exam: Present: regular rate Extremities exam: Present: normal inspection Neurological exam: Present: alert, oriented X3, normal gait Psychiatric exam: Present: normal affect, normal mood Skin exam: Present: dry Course Vital Signs 05/12/23 05/12/23 16:07 17:31 Temperature 98.3 F 98 F Pulse Rate 79 78 Respiratory 18 16 Rate Blood Pressure 170/71 128/78 O2 Sat by Pulse 95 98 Oximetry Medical Decision Making - Medical Decision Making Was pt. sent in by a medical professional or institution (, PA, BREAST TRIMMER, urgent care, hospital, or group home...) When possible be specific @ -No Did you speak to anyone other than the patient for history (EMS, parent, family, police, friend...)? What history was obtained from this source @ -No Did you review nursing and triage notes (agree or disagree)? Why? @ -I reviewed and agree with nursing and triage notes Were old charts reviewed (outside hosp., previous admission, EMS record, old EKG, old radiological studies, urgent care reports/EKG's, group home records)? Report findings @ -No old charts were reviewed Differential Diagnosis (chest pain, altered mental status, abdominal pain women, abdominal pain men, vaginal bleeding, weakness, fever, dyspnea, syncope, headache, dizziness, GI bleed, back pain, seizure, CVA, palpatations, mental health, musculoskeletal)? @ -Differential includes hordeolum, chalazion, preseptal cellulitis, orbital cellulitis, ALLERGIC reaction, this is not an all inclusive list EKG interpreted by me (3pts min.). @ -As above X-rays interpreted by me (1pt min.). @ -None done CT interpreted by me (1pt min.). @ -None done U/S interpreted by me (1pt. min.). @ -None done What testing was considered but not performed or refused? (CT, X-rays, U/S, labs)? Why? @ -None What meds were considered but not given or refused? Why? @ -None Did you discuss the management of the patient with other professionals (professionals i.e. DrJacob, PA, BREAST TRIMMER, lab, RT, psych nurse, social science teacher, security flex utility officer, teacher, truant officer, correctional case manager)? Give summary @ -No Was smoking cessation discussed for >3mins.? @ -No Was critical care preformed (if so, how long)? @ -No Were there social determinants of health that impacted care today? How? (Homelessness, low income, unemployed, alcoholism, drug addiction, transpo rtation, low edu. Level, literacy, decrease access to med. care, senior living, rehab)? @ -No Was there de-escalation of care discussed even if they declined (Discuss DNR or withdrawal of care, Hospice)? DNR status @ -No What co-morbidities impacted this encounter? (DM, HTN, Smoking, COPD, CAD, Cancer, CVA, ARF, Chemo, Hep., AIDS, mental health diagnosis, sleep apnea, morbid obesity)? @ -None Was patient admitted / discharged? Hospital course, mention meds given and route, prescriptions, significant lab abnormalities, going to OR and other pertinent info. @ -33-year-old female presenting with chief complaint of pain and swelling to the inner corner of the right eyelid. No globe pain, vision changes, watering or discharge. No new products foods or medications. No injury or trauma. Extraocular motions are intact. No surrounding erythema or swelling. Normal co njunctiva. Likely hordeolum. Patient is educated on today's findings. Educated on supportive treatment with warm compresses. Provided with erythromycin ointment as needed. Follow-up with PCP. Report back to ER with any new or worsening symptoms. Discussed return parameters and answered all questions. Patient conveyed verbal understanding and agreed to the plan. I discussed this case in detail with my attending Dr. Osman Undiagnosed new problem with uncertain prognosis? @ -No Drug Therapy requiring intensive monitoring for toxicity (Heparin, Nitro, Insulin, Cardizem)? @ -No Were any procedures done? @ -No Diagnosis/symptom? @ -Hordeolum Acute, or Chronic, or Acute on Chronic? @ -Acute Uncomplicated (without systemic symptoms) or Complicated (systemic symptoms)? @ -Uncomplicated Side effects of treatment? @ -No Exacerbation, Progression, or Severe Exacerbation? @ -No Poses a threat to life or bodily function? How? (Chest pain, [place], [place], pneumonia, PE, COPD, DKA, ARF, appy, cholecystitis, CVA, Diverticulitis, Homicidal, Suicidal, threat to staff... and all critical care pts) @ -No Disposition Clinical Impression: Hordeolum Disposition: HOME SELF-CARE Condition: Good Instructions (If sedation given, give patient instructions): Dee (ED) Additional Instructions: Follow up with PCP. Report back to ER with any new or worsening symptoms. Use warm compresses 3-5 times daily. Prescriptions: Erythromycin Ophth Oint [Romycin Ophth Oint] 1 applic RIGHT EYE Q8HR 5 Days #1 each Is patient prescribed a controlled substance at d/c from ED?: No Referrals: None,Stated [Primary Care Provider] - 1-2 days Time of Disposition: 16:43
[2023-05-12] MEDS ORDERED: ERYTHROMYCIN 5 MG/GM OPHTH OINT 3.5 GM TUBE RIGHT EYE SCH (17:00)
[2023-05-12 17:34] VITALS: BP 128/78; PULSE 78; RESP 16; TEMP 98
== END 2023-05-12 17:31 | disposition home or self-care (01) ==
LOC: EC 16:04
DX: H00.013 Hordeolum externum right eye, unspecified eyelid (principal); E11.9 Type 2 diabetes mellitus without complications; K21.9 Gastro-esophageal reflux disease without esophagitis; M79.7 Fibromyalgia; E78.5 Hyperlipidemia, unspecified; F41.9 Anxiety disorder, unspecified; F31.9 Bipolar disorder, unspecified; F17.290 Nicotine dependence, other tobacco product, uncomplicated; F12.90 Cannabis use, unspecified, uncomplicated; Z79.84 Long term (current) use of oral hypoglycemic drugs; Z79.899 Other long term (current) drug therapy; Z88.6 Allergy status to analgesic agent; Z90.49 Acquired absence of other specified parts of digestive tract
CPT/HCPCS: 99283

== ENCOUNTER 2023-05-14 18:43 | Emergency (ER) | payer OTHER ==
--- NOTE | 2023-05-14 19:12 | ED ---
General Adult HPI - General Source: patient, RN notes reviewed Mode of arrival: ambulatory Limitations: no limitations <Piper Moyer - Last Filed: 05/14/23 19:08> <Suraj Doll - Last Filed: 05/14/23 21:21> - General Chief complaint: Eye Problems Stated complaint: Eye pain/swelling Time Seen by Provider: 05/14/23 19:08 - History of Present Illness Initial comments: 33 year old female presents to the emergency department for evaluation of right eye lid swelling. Patient was evaluated here on Friday for the same thing. She states that she was given antibiotic ointment which she has been using without improvement. (Piper Moyer) 33-year-old female presents to the ED with a chief complaint of right eyelid swelling. Patient seen here 2 days ago and was advised that she had a stye. Antibiotic ointment and advised warm compresses. Since then she states that it is seemingly worsened prompting presentation to the ED for further evaluation. No changes in vision. No fevers. Patient is not a contact lens wearer. No discharge. No other complaints. (Suraj Doll) - Related Data Home Medications Medication Instructions Recorded Confirmed Pravastatin Sodium [Pravachol] 20 mg PO HS 01/20/18 01/02/21 LORazepam [Ativan] 1 mg PO HS PRN 11/24/18 01/02/21 buPROPion HCL [Wellbutrin XL] 300 mg PO DAILY 12/15/19 01/02/21 traZODone HCL 50 mg PO HS 12/15/19 01/02/21 ARIPiprazole 20 mg PO HS 01/09/20 01/02/21 ARIPiprazole [Abilify] 5 mg PO DAILY 01/09/20 01/02/21 Topiramate 50 mg PO HS 01/09/20 01/02/21 busPIRone HCL 15 mg PO TID 01/09/20 01/02/21 Amitriptyline HCl [Elavil] 75 mg PO BID 01/24/20 01/02/21 Verapamil HCl [Verapamil ER] 180 mg PO HS 01/24/20 01/02/21 Gabapentin 600 mg PO TID 02/20/20 01/02/21 OXcarbazepine [Oxtellar Xr] 150 mg PO HS 02/27/20 01/02/21 hydroCHLOROthiazide 25 mg PO DAILY 03/15/20 01/02/21 metFORMIN HCL 500 mg PO DAILY 07/25/20 01/02/21 SUMAtriptan succinate [Imitrex] 50 mg PO DAILY PRN 12/26/20 01/02/21 Prochlorperazine [Compazine] 10 mg PO Q8H PRN 01/02/21 01/02/21 Previous Rx's Medication Instructions Recorded Lidocaine 5% Patch [Lidoderm] 1 patch TOPICAL DAILY #5 patch 12/27/20 valACYclovir HCL [Valtrex] 1,000 mg PO Q8HR #21 tab 12/27/20 Dicyclomine [Bentyl] 20 mg PO TID PRN #20 tablet 01/01/21 Famotidine [Pepcid] 20 mg PO BID #30 tablet 01/01/21 Albuterol Sulfate [Albuterol 1 puff PO Q4-6H PRN #8.5 gm 02/16/23 Sulfate Hfa] Azithromycin [Zithromax] 250 mg PO DIRECTED #6 tab 02/16/23 Ipratropium-Albuterol Nebulize 3 ml INHALATION Q4-6H PRN #90 ml 02/16/23 [Duoneb 0.5 mg-3 mg/3 ml Soln] predniSONE 50 mg PO DAILY 5 Days #5 tab 02/16/23 Erythromycin Ophth Oint [Romycin 1 applic RIGHT EYE Q8HR 5 Days #1 05/12/23 Ophth Oint] each Allergies Allergy/AdvReac Type Severity Reaction Status Date / Time aspirin AdvReac Unknown Verified 05/14/23 19:06 ketorolac [From Toradol] AdvReac Unknown Verified 05/14/23 19:06 NSAIDS (Non-Steroidal AdvReac Pt. states Verified 05/14/23 19:06 Anti-Inflamma NSAIDS have given her a GI bleed in the past. Review of Systems ROS Other: All systems not noted in ROS Statement are negative. <Piper Moyer - Last Filed: 05/14/23 19:08> ROS Other: All systems not noted in ROS Statement are negative. <Suraj Doll - Last Filed: 05/14/23 21:21> ROS Statement: Those systems with pertinent positive or pertinent negative responses have been documented in the HPI. Past Medical History Past Medical History: Diabetes Mellitus, Fibromyalgia, GERD/Reflux, GI Bleed, Hyperlipidemia Additional Past Medical History / Comment(s): gallstones, kidney stones, IBS, migraines, tachycardia, Martine- Guevara tear, blood clot, pesudo tumor cerebrea History of Any Multi-Drug Resistant Organisms: None Reported Past Surgical History: Section, Cholecystectomy, Tubal Ligation Additional Past Surgical History / Comment(s): neck biopsy (lymph node ) d&c; LP shunt May 13 2019 feb 0211/2019 -revision, stent/ lithotripsy on left, cystoscopy, shunt revises july 28. Past Anesthesia/Blood Transfusion Reactions: No Reported Reaction Past Psychological History: Anxiety, Bipolar, Depression, PTSD Smoking Status: Vaper Past Alcohol Use History: Rare Past Drug Use History: Marijuana - Past Family History Mother Family Medical History: Diabetes Mellitus, Hyperlipidemia, Hypertension, Myocardial Infarction ([place]) Additional Family Medical History / Comment(s): [place] X 3 Father Family Medical History: Congestive Heart Failure (CHF), Hyperlipidemia, Hypertension, Myocardial Infarction ([place]) Additional Family Medical History / Comment(s): mi x 3 Son(s) Family Medical History: No Reported History <Piper Moyer - Last Filed: 05/14/23 19:08> General Exam Limitations: no limitations <Piper Moyer - Last Filed: 05/14/23 19:08> General appearance: alert, in no apparent distress Eye exam: Present: PERRL, other (External hordeolum of the medial aspect of right eye. Significant periorbital warmth, swelling, tenderness to palpation. Extraocular motions intact without pain.) Neck exam: Present: normal inspection Respiratory exam: Present: normal lung sounds bilaterally Cardiovascular Exam: Present: regular rate, normal rhythm Neurological exam: Present: alert, oriented X3 Skin exam: Present: warm, dry <Suraj Doll - Last Filed: 05/14/23 21:21> - General Exam Comments Initial Comments: Visual Physical Exam Vital signs reviewed General: Well-appearing, nontoxic, no acute distress. Head: Normocephalic, atraumatic Eyes: PERRLA, EOMI ENT: Airway patent Chest: Nonlabored breathing Skin: No visual rash, normal skin tone Neuro: Alert and oriented 3 Musculoskeletal: No gross abnormalities (Kulka,Piper) Course Vital Signs 05/14/23 19:04 Temperature 98.9 F Pulse Rate 104 H Respiratory 18 Rate Blood Pressure 147/83 O2 Sat by Pulse 98 Oximetry Medical Decision Making <Piper Moyer - Last Filed: 05/14/23 19:08> <Suraj Doll - Last Filed: 05/14/23 21:21> - Medical Decision Making Quick note preformed by [facility] Barroso-C (Piper Moyer) Was pt. sent in by a medical professional or institution ([facility], [facility], urgent care, hospital, or snf...) When possible be specific @ -No Did you speak to anyone other than the patient for history (EMS, parent, family, police, friend...)? What history was obtained from this source @ -No Did you review nursing and triage notes (agree or disagree)? Why? @ -I reviewed and agree with nursing and triage notes Were old charts reviewed (outside hosp., previous admission, EMS record, old EKG, old radiological studies, urgent care reports/EKG's, snf records)? Report findings @ -No old charts were reviewed Differential Diagnosis (chest pain, altered mental status, abdominal pain women, abdominal pain men, vaginal bleeding, weakness, fever, dyspnea, syncope, headache, dizziness, GI bleed, back pain, seizure, CVA, palpatations, mental health, musculoskeletal)? @ -Septal cellulitis, post-septal colitis, Chalazion, This is not meant to be an all-inclusive list. EKG interpreted by me (3pts min.). @ -As above X-rays interpreted by me (1pt min.). @ -None done CT interpreted by me (1pt min.). @ -None done U/S interpreted by me (1pt. min.). @ -None done What testing was considered but not performed or refused? (CT, X-rays, U/S, labs)? Why? @ -None What meds were considered but not given or refused? Why? @ -None Did you discuss the management of the patient with other professionals (professionals i.e. [facility], [facility], lab, RT, psych nurse, social services director, sustain engineer, teacher, commissary officer, high risk case manager)? Give summary @ -No Was smoking cessation discussed for >3mins.? @ -No Was critical care preformed (if so, how long)? @ -No Were there social determinants of health that impacted care today? How? (Homelessness, low income, unemployed, alcoholism, drug addiction, transportation, low edu. Level, literacy, decrease access to med. care, longterm, rehab)? @ -No Was there de-escalation of care discussed even if they declined (Discuss DNR or withdrawal of care, Hospice)? DNR status @ -No What co-morbidities impacted this encounter? (DM, HTN, Smoking, COPD, CAD, Cancer, CVA, ARF, Chemo, Hep., AIDS, mental health diagnosis, sleep apnea, morbid obesity)? @ -None Was patient admitted / discharged? Hospital course, mention meds given and route, prescriptions, significant lab abnormalities, going to OR and other pertinent info. @ -Discharge 33-year-old female presents to the ED with chief complaint of eye problem. Exam appears consistent with sty. No concerning findings on exam for preseptal or post-septal cellulitis. Patient reassured. Advises continuing antibiotic ointment, warm compresses, and gentle massaging of the area. Discharged home in stable condition and advised follow-up with her PCP. Discussed return precautions with patient and family who verbalized agreement. Undiagnosed new problem with uncertain prognosis? @ -No Drug Therapy requiring intensive monitoring for toxicity (Heparin, Nitro, Insuli n, Cardizem)? @ -No Were any procedures done? @ -No Diagnosis/symptom? @ -Stye Acute, or Chronic, or Acute on Chronic? @ -Acute Uncomplicated (without systemic symptoms) or Complicated (systemic symptoms)? @ -Complicated Side effects of treatment? @ -No Exacerbation, Progression, or Severe Exacerbation? @ -No Poses a threat to life or bodily function? How? (Chest pain, [place], [place], pneumonia, PE, COPD, DKA, ARF, appy, cholecystitis, CVA, Diverticulitis, Homicidal, Suicidal, threat to staff... and all critical care pts) @ -No (Suraj Doll) Disposition <Piper Moyer - Last Filed: 05/14/23 19:08> Is patient prescribed a controlled substance at d/c from ED?: No Time of Disposition: 21:21 <Suraj Doll - Last Filed: 05/14/23 21:21> Clinical Impression: Stye Disposition: HOME SELF-CARE Condition: Good Additional Instructions: Please return to the Emergency Department if symptoms worsen or any other concerns. Please follow-up with your primary care provider. Referrals: None,Stated [Primary Care Provider] - 1-2 days
[2023-05-14 19:21] VITALS: RESP 18; TEMP 98.9
[2023-05-14 21:46] VITALS: BP 141/82; PULSE 101
== END 2023-05-14 21:37 | disposition home or self-care (01) ==
LOC: EC 18:43
DX: H00.013 Hordeolum externum right eye, unspecified eyelid (principal); E11.9 Type 2 diabetes mellitus without complications; K21.9 Gastro-esophageal reflux disease without esophagitis; E78.5 Hyperlipidemia, unspecified; M79.7 Fibromyalgia; F41.9 Anxiety disorder, unspecified; F31.9 Bipolar disorder, unspecified; F17.290 Nicotine dependence, other tobacco product, uncomplicated; F12.90 Cannabis use, unspecified, uncomplicated; Z79.84 Long term (current) use of oral hypoglycemic drugs; Z79.899 Other long term (current) drug therapy; Z88.6 Allergy status to analgesic agent; Z90.49 Acquired absence of other specified parts of digestive tract
CPT/HCPCS: 99283

== ENCOUNTER 2023-06-14 05:23 | Emergency (ER) | payer OTHER ==
[2023-06-14 05:53] VITALS: RESP 18; TEMP 98.5
--- NOTE | 2023-06-14 06:41 | ED ---
General Adult HPI - General Chief complaint: Recheck/Abnormal Lab/Rx Stated complaint: covid test Time Seen by Provider: 06/14/23 05:53 Source: patient, RN notes reviewed, old records reviewed Mode of arrival: ambulatory Limitations: no limitations - History of Present Illness Initial comments: Patient is a 33-year-old female who presents emergency department for COVID screening and a work note. Patient states that she woke up with congestion as well as loss of taste and smell. Started this morning when she awoke. 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 Denies any significant cough, chest pain, abdominal pain, nausea, vomiting. Denies any obvious fevers. Presents for further evaluation at this time. - Related Data Home Medications Medication Instructions Recorded Confirmed Pravastatin Sodium [Pravachol] 20 mg PO HS 01/20/18 01/02/21 LORazepam [Ativan] 1 mg PO HS PRN 11/24/18 01/02/21 buPROPion HCL [Wellbutrin XL] 300 mg PO DAILY 12/15/19 01/02/21 traZODone HCL 50 mg PO HS 12/15/19 01/02/21 ARIPiprazole 20 mg PO HS 01/09/20 01/02/21 ARIPiprazole [Abilify] 5 mg PO DAILY 01/09/20 01/02/21 Topiramate 50 mg PO HS 01/09/20 01/02/21 busPIRone HCL 15 mg PO TID 01/09/20 01/02/21 Amitriptyline HCl [Elavil] 75 mg PO BID 01/24/20 01/02/21 Verapamil HCl [Verapamil ER] 180 mg PO HS 01/24/20 01/02/21 Gabapentin 600 mg PO TID 02/20/20 01/02/21 OXcarbazepine [Oxtellar Xr] 150 mg PO HS 02/27/20 01/02/21 hydroCHLOROthiazide 25 mg PO DAILY 03/15/20 01/02/21 metFORMIN HCL 500 mg PO DAILY 07/25/20 01/02/21 SUMAtriptan succinate [Imitrex] 50 mg PO DAILY PRN 12/26/20 01/02/21 Prochlorperazine [Compazine] 10 mg PO Q8H PRN 01/02/21 01/02/21 Previous Rx's Medication Instructions Recorded Lidocaine 5% Patch [Lidoderm] 1 patch TOPICAL DAILY #5 patch 12/27/20 valACYclovir HCL [Valtrex] 1,000 mg PO Q8HR #21 tab 12/27/20 Dicyclomine [Bentyl] 20 mg PO TID PRN #20 tablet 01/01/21 Famotidine [Pepcid] 20 mg PO BID #30 tablet 01/01/21 Albuterol Sulfate [Albuterol 1 puff PO Q4-6H PRN #8.5 gm 02/16/23 Sulfate Hfa] Azithromycin [Zithromax] 250 mg PO DIRECTED #6 tab 02/16/23 Ipratropium-Albuterol Nebulize 3 ml INHALATION Q4-6H PRN #90 ml 02/16/23 [Duoneb 0.5 mg-3 mg/3 ml Soln] predniSONE 50 mg PO DAILY 5 Days #5 tab 02/16/23 Erythromycin Ophth Oint [Romycin 1 applic RIGHT EYE Q8HR 5 Days #1 05/12/23 Ophth Oint] each Allergies Allergy/AdvReac Type Severity Reaction Status Date / Time aspirin AdvReac Unknown Verified 06/14/23 05:30 ketorolac [From Toradol] AdvReac Unknown Verified 06/14/23 05:30 NSAIDS (Non-Steroidal AdvReac Pt. states Verified 06/14/23 05:30 Anti-Inflamma NSAIDS have given her a GI bleed in the past. Review of Systems ROS Statement: Those systems with pertinent positive or pertinent negative responses have been documented in the HPI. Review of Systems: CONST: Denies fever EYES: Denies blurry vision ENT: Endorses nasal congestion C/V: Denies Chest pain RESP: Denies shortness of breath GI: Denies abdominal pain : Denies dysuria SKIN: Denies rash. MSK: Denies joint pain. NEURO: Denies headache ROS Other: All systems not noted in ROS Statement are negative. Past Medical History Past Medical History: Diabetes Mellitus, Fibromyalgia, GERD/Reflux, GI Bleed, Hyperlipidemia Additional Past Medical History / Comment(s): gallstones, kidney stones, IBS, migraines, tachycardia, Martine- Guevara tear, blood clot, pesudo tumor cerebrea History of Any Multi-Drug Resistant Organisms: None Reported Past Surgical History: Section, Cholecystectomy, Tubal Ligation Additional Past Surgical History / Comment(s): neck biopsy (lymph node ) d&c; LP shunt May 13 2019 feb 0211/2019 -revision, stent/ lithotripsy on left, cystoscopy, shunt revises july 28. Past Anesthesia/Blood Transfusion Reactions: No Reported Reaction Past Psychological History: Anxiety, Bipolar, Depression, PTSD Smoking Status: Vaper Past Alcohol Use History: Rare Past Drug Use History: Marijuana - Past Family History Mother Family Medical History: Diabetes Mellitus, Hyperlipidemia, Hypertension, Myocardial Infarction ([place]) Additional Family Medical History / Comment(s): [place] X 3 Father Family Medical History: Congestive Heart Failure (CHF), Hyperlipidemia, Hypertension, Myocardial Infarction ([place]) Additional Family Medical History / Comment(s): mi x 3 Son(s) Family Medical History: No Reported History General Exam - General Exam Comments Initial Comments: General: Appears in no acute distress. HEAD: Normal with no signs of head trauma. EYES: EOMI. ENT: Hearing grossly intact. No sinus tenderness to palpation. RESPIRATORY: No respiratory distress. No respiratory distress. No hypoxia. Clear breath sounds bilaterally. C/V: Regular rate and rhythm. ABD: Abdomen is nondistended. EXT: No obvious deformity. SKIN: No rashes or lesions observed on exposed skin. NEURO: Alert and oriented. Limitations: no limitations Course Vital Signs 06/14/23 06/14/23 05:28 07:21 Temperature 98.5 F Pulse Rate 99 90 Respiratory 18 18 Rate Blood Pressure 126/82 132/78 O2 Sat by Pulse 99 100 Oximetry Medical Decision Making - Medical Decision Making Was pt. sent in by a medical professional or institution ([facility], [facility], urgent care, hospital, or care home...) When possible be specific @ -No Did you speak to anyone other than the patient for history (EMS, parent, family, police, friend...)? What history was obtained from this source @ -No Did you review nursing and triage notes (agree or disagree)? Why? @ -I reviewed and agree with nursing and triage notes Were old charts reviewed (outside hosp., previous admission, EMS record, old EKG, old radiological studies, urgent care reports/EKG's, care home records)? Report findings @ -No old charts were reviewed Differential Diagnosis (chest pain, altered mental status, abdominal pain women, abdominal pain men, vaginal bleeding, weakness, fever, dyspnea, syncope, headache, dizziness, GI bleed, back pain, seizure, CVA, palpatations, mental health, musculoskeletal)? @ -COVID, flu, RSV, virus. This list is not all inclusive. EKG interpreted by me (3pts min.). @ -None done X-rays interpreted by me (1pt min.). @ -None done CT interpreted by me (1pt min.). @ -None done U/S interpreted by me (1pt. min.). @ -None done What testing was considered but not performed or refused? (CT, X-rays, U/S, labs)? Why? @ -None What meds were considered but not given or refused? Why? @ -None Did you discuss the management of the patient with other professionals (professionals i.e. , PA, MAINTENANCE MAN, lab, RT, psych nurse, social security specialist, athletic events scorer, teacher, licensed loan officer assistant, pillowcase folder)? Give summary @ -No Was smoking cessation discussed for >3mins.? @ -No Was critical care preformed (if so, how long)? @ -No Were there social determinants of health that impacted care today? How? (Homelessness, low income, unemployed, alcoholism, drug addiction, transportation, low edu. Level, literacy, decrease access to med. care, care home, rehab)? @ -No Was there de-escalation of care discussed even if they declined (Discuss DNR or withdrawal of care, Hospice)? DNR status @ -No What co-morbidities impacted this encounter? (DM, HTN, Smoking, COPD, CAD, Cancer, CVA, ARF, Chemo, Hep., AIDS, mental health diagnosis, sleep apnea, morbid obesity)? @ -None Was patient admitted / discharged? Hospital course, mention meds given and route, prescriptions, significant lab abnormalities, going to OR and other pertinent info. @ -Patient presents for upper respiratory infection symptoms. Viral swabs are negative. Vital signs are within acceptable limits. Exam unremarkable. I discussed the workup with the patient. She will be given a work note at her request as well as a small dose of Decadron to help with inflammation. She was in agreement this plan. We discussed she likely has a viral syndrome. She will be discharged home at this time. Strict return precautions discussed. I instructed the patient to follow up with their PCP in the next 1-3 days. I explained that the patient should return to the emergency department if they experience any worsening symptoms. Strict return precautions were discussed with the patient. The patient expressed understanding of these instructions. I answered all questions that the patient had. The patient was discharged home in good condition with their prescriptions and follow up information. Undiagnosed new problem with uncertain prognosis? @ -No Drug Therapy requiring intensive monitoring for toxicity (Heparin, Nitro, Insulin, Cardizem)? @ -No Were any procedures done? @ -No Diagnosis/symptom? @ -Viral syndrome Acute, or Chronic, or Acute on Chronic? @ -Acute Uncomplicated (without systemic symptoms) or Complicated (systemic symptoms)? @ -Complicated Side effects of treatment? @ -No Exacerbation, Progression, or Severe Exacerbation? @ -No Poses a threat to life or bodily function? How? (Chest pain, [place], [place], pneumonia, PE, COPD, DKA, ARF, appy, cholecystitis, CVA, Diverticulitis, Homicidal, Suicidal, threat to staff... and all critical care pts) @ -No - Lab Data Lab Results 06/14/23 Range/Units 05:31 Influenza Type A (PCR) Not Detected (Not Detectd) Influenza Type B (PCR) Not Detected (Not Detectd) RSV (PCR) Not Detected (Not Detectd) SARS-CoV-2 (PCR) Not Detected (Not Detectd) Disposition Clinical Impression: Viral syndrome Disposition: HOME SELF-CARE Condition: Good Is patient prescribed a controlled substance at d/c from ED?: No Referrals: None,Stated [Primary Care Provider] - 1-2 days Time of Disposition: 06:41
[2023-06-14] MEDS: dexAMETHasone 4 MG TAB PO STA (07:18)
[2023-06-14 07:30] VITALS: BP 132/78; PULSE 90
== END 2023-06-14 07:22 | disposition home or self-care (01) ==
LOC: EC 05:23
DX: B34.9 Viral infection, unspecified (principal); E11.9 Type 2 diabetes mellitus without complications; E78.5 Hyperlipidemia, unspecified; K21.9 Gastro-esophageal reflux disease without esophagitis; Z79.52 Long term (current) use of systemic steroids; Z79.84 Long term (current) use of oral hypoglycemic drugs; Z79.899 Other long term (current) drug therapy; Z88.6 Allergy status to analgesic agent; Z88.8 Allergy status to other drugs, medicaments and biological substances; Z90.49 Acquired absence of other specified parts of digestive tract; Z20.822 Contact with and (suspected) exposure to COVID-19
CPT/HCPCS: 87636; 99283; J8540

== ENCOUNTER 2023-06-17 16:01 | Emergency (ER) | payer OTHER ==
--- NOTE | 2023-06-17 16:55 | ED ---
URI HPI - General Chief Complaint: Upper Respiratory Infection Stated Complaint: Congestion,Light Headed Time Seen by Provider: 06/17/23 16:54 Source: patient, RN notes reviewed Mode of arrival: ambulatory Limitations: no limitations - History of Present Illness Initial Comments: Patient is a 33-year-old female presented to ER with chief complaint of no taste, sore throat, cough and congestion. This is going on for the past 2 to 3 days. Patient's children are also ill with similar symptoms. Patient states she was sent home from work due to weakness. Denies any known fevers. Denies any chest pain, shortness of breath, abdominal pain, urinary complaints. - Related Data Home Medications Medication Instructions Recorded Confirmed Pravastatin Sodium [Pravachol] 20 mg PO HS 01/20/18 01/02/21 LORazepam [Ativan] 1 mg PO HS PRN 11/24/18 01/02/21 buPROPion HCL [Wellbutrin XL] 300 mg PO DAILY 12/15/19 01/02/21 traZODone HCL 50 mg PO HS 12/15/19 01/02/21 ARIPiprazole 20 mg PO HS 01/09/20 01/02/21 ARIPiprazole [Abilify] 5 mg PO DAILY 01/09/20 01/02/21 Topiramate 50 mg PO HS 01/09/20 01/02/21 busPIRone HCL 15 mg PO TID 01/09/20 01/02/21 Amitriptyline HCl [Elavil] 75 mg PO BID 01/24/20 01/02/21 Verapamil HCl [Verapamil ER] 180 mg PO HS 01/24/20 01/02/21 Gabapentin 600 mg PO TID 02/20/20 01/02/21 OXcarbazepine [Oxtellar Xr] 150 mg PO HS 02/27/20 01/02/21 hydroCHLOROthiazide 25 mg PO DAILY 03/15/20 01/02/21 metFORMIN HCL 500 mg PO DAILY 07/25/20 01/02/21 SUMAtriptan succinate [Imitrex] 50 mg PO DAILY PRN 12/26/20 01/02/21 Prochlorperazine [Compazine] 10 mg PO Q8H PRN 01/02/21 01/02/21 Previous Rx's Medication Instructions Recorded Lidocaine 5% Patch [Lidoderm] 1 patch TOPICAL DAILY #5 patch 12/27/20 valACYclovir HCL [Valtrex] 1,000 mg PO Q8HR #21 tab 12/27/20 Dicyclomine [Bentyl] 20 mg PO TID PRN #20 tablet 01/01/21 Famotidine [Pepcid] 20 mg PO BID #30 tablet 01/01/21 Albuterol Sulfate [Albuterol 1 puff PO Q4-6H PRN #8.5 gm 02/16/23 Sulfate Hfa] Azithromycin [Zithromax] 250 mg PO DIRECTED #6 tab 02/16/23 Ipratropium-Albuterol Nebulize 3 ml INHALATION Q4-6H PRN #90 ml 02/16/23 [Duoneb 0.5 mg-3 mg/3 ml Soln] predniSONE 50 mg PO DAILY 5 Days #5 tab 02/16/23 Erythromycin Ophth Oint [Romycin 1 applic RIGHT EYE Q8HR 5 Days #1 05/12/23 Ophth Oint] each Allergies Allergy/AdvReac Type Severity Reaction Status Date / Time aspirin AdvReac Unknown Verified 06/14/23 05:30 ketorolac [From Toradol] AdvReac Unknown Verified 06/14/23 05:30 NSAIDS (Non-Steroidal AdvReac Pt. states Verified 06/14/23 05:30 Anti-Inflamma NSAIDS have given her a GI bleed in the past. Review of Systems ROS Statement: Those systems with pertinent positive or pertinent negative responses have been documented in the HPI. ROS Other: All systems not noted in ROS Statement are negative. Past Medical History Past Medical History: Diabetes Mellitus, Fibromyalgia, GERD/Reflux, GI Bleed, Hyperlipidemia Additional Past Medical History / Comment(s): gallstones, kidney stones, IBS, migraines, tachycardia, Martine- Guevara tear, blood clot, pesudo tumor cerebrea History of Any Multi-Drug Resistant Organisms: None Reported Past Surgical History: Section, Cholecystectomy, Tubal Ligation Additional Past Surgical History / Comment(s): neck biopsy (lymph node ) d&c; LP shunt May 13 2019 feb 0211/2019 -revision, stent/ lithotripsy on left, cystoscop y, shunt revises july 28. Past Anesthesia/Blood Transfusion Reactions: No Reported Reaction Past Psychological History: Anxiety, Bipolar, Depression, PTSD Smoking Status: Vaper Past Alcohol Use History: Rare Past Drug Use History: Marijuana - Past Family History Mother Family Medical History: Diabetes Mellitus, Hyperlipidemia, Hypertension, Myocardial Infarction ([place]) Additional Family Medical History / Comment(s): [place] X 3 Father Family Medical History: Congestive Heart Failure (CHF), Hyperlipidemia, Hypertension, Myocardial Infarction ([place]) Additional Family Medical History / Comment(s): mi x 3 Son(s) Family Medical History: No Reported History General Exam Limitations: no limitations General appearance: alert, in no apparent distress Head exam: Present: atraumatic, normocephalic, normal inspection Eye exam: Present: normal appearance, PERRL, EOMI. Absent: scleral icterus, conjunctival injection, periorbital swelling ENT exam: Present: normal exam, normal oropharynx, mucous membranes moist, TM's normal bilaterally Neck exam: Present: normal inspection. Absent: tenderness, meningismus, lymphadenopathy Respiratory exam: Present: normal lung sounds bilaterally. Absent: respiratory distress, wheezes, rales, rhonchi, stridor Cardiovascular Exam: Present: regular rate, normal rhythm, normal heart sounds. Absent: systolic murmur, diastolic murmur, rubs, gallop, clicks Neurological exam: Present: alert, oriented X3, CN II-XII intact Psychiatric exam: Present: normal affect, normal mood Skin exam: Present: warm, dry, intact, normal color. Absent: rash Course Vital Signs 06/17/23 06/17/23 16:20 19:28 Temperature 98.6 F 99 F Pulse Rate 96 68 Respiratory 16 12 Rate Blood Pressure 147/89 134/85 O2 Sat by Pulse 94 L 99 Oximetry Medical Decision Making - Medical Decision Making Was pt. sent in by a medical professional or institution (, PA, MACHINE HEEL SEAT FITTER, urgent care, hospital, or care home...) When possible be specific @ -No Did you speak to anyone other than the patient for history (EMS, parent, family, police, friend...)? What history was obtained from this source @ -No Did you review nursing and triage notes (agree or disagree)? Why? @ -I reviewed and agree with nursing and triage notes Were old charts reviewed (outside hosp., previous admission, EMS record, old EKG, old radiological studies, urgent care reports/EKG's, care home records)? Report findings @ -No old charts were reviewed Differential Diagnosis (chest pain, altered mental status, abdominal pain women, abdominal pain men, vaginal bleeding, weakness, fever, dyspnea, syncope, headache, dizziness, GI bleed, back pain, seizure, CVA, palpatations, mental health, musculoskeletal)? @ -COVID, RSV, influenza, viral sinusitis, pneumonia this list is not meant to be all-inclusive EKG interpreted by me (3pts min.). @ -None X-rays interpreted by me (1pt min.). @ -Chest x-ray interpreted by me shows no acute process. CT interpreted by me (1pt min.). @ -None done U/S interpreted by me (1pt. min.). @ -None done What testing was considered but not performed or refused? (CT, X-rays, U/S, l abs)? Why? @ -None What meds were considered but not given or refused? Why? @ -None Did you discuss the management of the patient with other professionals (professionals i.e. , PA, MACHINE HEEL SEAT FITTER, lab, RT, psych nurse, manager social services, photo graphics librarian, teacher, railroad police officer, case folder)? Give summary @ -No Was smoking cessation discussed for >3mins.? @ -I discussed smoking cessation for greater than 3 minutes. The risk of smoking were discussed with the patient including but not limited to risks of cancer, stroke, coronary artery disease and COPD. Also discussed with patient were multiple methods of quitting smoking. Lastly we discussed the financial cost of smoking. Was critical care preformed (if so, how long)? @ -No Were there social determinants of health that impacted care today? How? (Homele ssness, low income, unemployed, alcoholism, drug addiction, transportation, low edu. Level, literacy, decrease access to med. care, fpc, rehab)? @ -No Was there de-escalation of care discussed even if they declined (Discuss DNR or withdrawal of care, Hospice)? DNR status @ -No What co-morbidities impacted this encounter? (DM, HTN, Smoking, COPD, CAD, Cancer, CVA, ARF, Chemo, Hep., AIDS, mental health diagnosis, sleep apnea, morbid obesity)? @ -Smoker, obese, DM Was patient admitted / discharged? Hospital course, mention meds given and route, prescriptions, significant lab abnormalities, going to OR and other pertinent info. @ -Discharge. Patient is a 33-year-old female presented to ER with a chief complaint of weakness and congestion. History and physical exam were completed. Vital stable. Patient no signs of acute distress. Nontoxic-appearing. Lung sounds clear to auscultation bilaterally. COVID, RSV, influenza negative. Strep negative. Chest x-ray interpreted by me shows no acute process. Results discuessed with patient, all questions answered. I discussed smoking cessation for greater than 3 minutes. The risk of smoking were discussed with the patient including but not limited to risks of cancer, stroke, coronary artery disease and COPD. Also discussed with patient were multiple methods of quitting smoking. Lastly we discussed the financial cost of smoking. I advised [id number] Tylenol and Motrin for fever and symptom control. Return parameters were discussed. Patient be discharged stable condition with follow- up to PCP. Patient expressed understanding and agreement with care plan. Case discuess with ER attending, Dr. Rai. Undiagnosed new problem with uncertain prognosis? @ -No Drug Therapy requiring intensive monitoring for toxicity (Heparin, Nitro, Insulin, Cardizem)? @ -No Were any procedures done? @ -No Diagnosis/symptom? @ -Viral sinusitis/viral illness/nicotine dependence Acute, or Chronic, or Acute on Chronic? @ -Acute Uncomplicated (without systemic symptoms) or Complicated (systemic symptoms)? @ -Uncomplicated Side effects of treatment? @ -No Exacerbation, Progression, or Severe Exacerbation? @ -No Poses a threat to life or bodily function? How? (Chest pain, [place], [place], pneumonia, PE, COPD, DKA, ARF, appy, cholecystitis, CVA, Diverticulitis, Homicidal, Suicidal, threat to staff... and all critical care pts) @ -No - Lab Data Lab Results 06/17/23 06/17/23 Range/Units 17:36 17:36 Influenza Type A (PCR) Not Detected (Not Detectd) Influenza Type B (PCR) Not Detected (Not Detectd) RSV (PCR) Not Detected (Not Detectd) SARS-CoV-2 (PCR) Not Detected (Not Detectd) Group A Strep (PCR) NOT DETECTED (Not Detectd) - Radiology Data Radiology results: report reviewed, image reviewed Disposition Clinical Impression: Acute viral sinusitis Disposition: HOME SELF-CARE Condition: Stable Instructions (If sedation given, give patient instructions): Upper Respiratory Infection (ED) Additional Instructions: You may Tylenol for fever control. Return to ER for any new or worsening symptoms. Is patient prescribed a controlled substance at d/c from ED?: No Referrals: None,Stated [Primary Care Provider] - 1-2 days Time of Disposition: 19:14
--- NOTE | 2023-06-17 18:35 | XR ---
EXAMINATION TYPE: XR chest 2V DATE OF EXAM: 06/17/2023 COMPARISON: 03/14/2023 HISTORY: 33-year-old female with cough TECHNIQUE: PA and lateral views FINDINGS: The cardiomediastinal silhouette, aorta, and pulmonary vasculature are within normal limits. Lungs an d pleural spaces are clear. IMPRESSION: No acute cardiopulmonary process.
[2023-06-17 19:30] VITALS: BP 134/85; PULSE 68; RESP 12; TEMP 99
== END 2023-06-17 19:43 | disposition home or self-care (01) ==
LOC: EC 16:01
DX: J01.90 Acute sinusitis, unspecified (principal); B97.89 Other viral agents as the cause of diseases classified elsewhere; E11.9 Type 2 diabetes mellitus without complications; E78.5 Hyperlipidemia, unspecified; M79.7 Fibromyalgia; F31.9 Bipolar disorder, unspecified; F41.9 Anxiety disorder, unspecified; F17.290 Nicotine dependence, other tobacco product, uncomplicated; F12.90 Cannabis use, unspecified, uncomplicated; Z20.822 Contact with and (suspected) exposure to COVID-19; Z79.84 Long term (current) use of oral hypoglycemic drugs; Z79.899 Other long term (current) drug therapy; Z88.6 Allergy status to analgesic agent; Z90.49 Acquired absence of other specified parts of digestive tract
CPT/HCPCS: 71046; 87636; 87651; 99284; 99406

== ENCOUNTER 2023-07-07 14:36 | Emergency (ER) | payer OTHER ==
[2023-07-07 15:14] VITALS: RESP 16
--- NOTE | 2023-07-07 16:48 | US ---
EXAMINATION TYPE: US thyroid st tissue head/neck DATE OF EXAM: 07/07/2023 COMPARISON: NONE CLINICAL INDICATION: Female, 33 years old with history of soft tissue neck left cervical lymphadenopa thy; left palpable area left superior lateral neck. Hx cancerous lymph node 2014, right neck Technique: Grayscale imaging of the neck with color Doppler imaging. FINDINGS: Bilateral neck lymphadenopathy identified. The palpable area corresponds to a 1.5x0.8x1.3cm lymph node within the left parotid gland. Several ot her large lymph nodes noted bilaterally. IMPRESSION: Palpable area correlates with lymph node. Consider short-term follow-up imaging to ensure resolution. Given history of cancer underlying neoplastic process is not excluded on this single exam.
--- NOTE | 2023-07-07 16:49 | ED ---
ENT HPI - General Chief complaint: ENT Stated complaint: Left lump on neck Time Seen by Provider: 07/07/23 15:07 Source: patient Mode of arrival: ambulatory Limitations: no limitations - History of Present Illness Initial comments: 33-year-old female presents to the ED with a chief complaint of facial swelling. Patient states last night started to experience swelling on the left side of her face and is concerned as she notes history of prior enlarged lymph node that was biopsied and had initial findings concerning for lymphoma. She reports she had this lymph node removed. Did not undergo chemotherapy or radiation. Reports shortly after she became and never ended up following up on this. last night, started to experience swelling on the left side of her face over her left jaw. Denies any odd taste in her mouth or any discharge in her mouth. No fever or chills. Pain does seem to intermittently worsen with eating. Patient otherwise reports feeling well over the past few days. No preceding symptoms. Up-to-date on vaccinations. - Related Data Home Medications Medication Instructions Recorded Confirmed Pravastatin Sodium [Pravachol] 20 mg PO HS 01/20/18 01/02/21 LORazepam [Ativan] 1 mg PO HS PRN 11/24/18 01/02/21 buPROPion HCL [Wellbutrin XL] 300 mg PO DAILY 12/15/19 01/02/21 traZODone HCL 50 mg PO HS 12/15/19 01/02/21 ARIPiprazole 20 mg PO HS 01/09/20 01/02/21 ARIPiprazole [Abilify] 5 mg PO DAILY 01/09/20 01/02/21 Topiramate 50 mg PO HS 01/09/20 01/02/21 busPIRone HCL 15 mg PO TID 01/09/20 01/02/21 Amitriptyline HCl [Elavil] 75 mg PO BID 01/24/20 01/02/21 Verapamil HCl [Verapamil ER] 180 mg PO HS 01/24/20 01/02/21 Gabapentin 600 mg PO TID 02/20/20 01/02/21 OXcarbazepine [Oxtellar Xr] 150 mg PO HS 02/27/20 01/02/21 hydroCHLOROthiazide 25 mg PO DAILY 03/15/20 01/02/21 metFORMIN HCL 500 mg PO DAILY 07/25/20 01/02/21 SUMAtriptan succinate [Imitrex] 50 mg PO DAILY PRN 12/26/20 01/02/21 Prochlorperazine [Compazine] 10 mg PO Q8H PRN 01/02/21 01/02/21 Previous Rx's Medication Instructions Recorded Lidocaine 5% Patch [Lidoderm] 1 patch TOPICAL DAILY #5 patch 12/27/20 valACYclovir HCL [Valtrex] 1,000 mg PO Q8HR #21 tab 12/27/20 Dicyclomine [Bentyl] 20 mg PO TID PRN #20 tablet 01/01/21 Famotidine [Pepcid] 20 mg PO BID #30 tablet 01/01/21 Albuterol Sulfate [Albuterol 1 puff PO Q4-6H PRN #8.5 gm 02/16/23 Sulfate Hfa] Azithromycin [Zithromax] 250 mg PO DIRECTED #6 tab 02/16/23 Ipratropium-Albuterol Nebulize 3 ml INHALATION Q4-6H PRN #90 ml 02/16/23 [Duoneb 0.5 mg-3 mg/3 ml Soln] predniSONE 50 mg PO DAILY 5 Days #5 tab 02/16/23 Erythromycin Ophth Oint [Romycin 1 applic RIGHT EYE Q8HR 5 Days #1 05/12/23 Ophth Oint] each Allergies Allergy/AdvReac Type Severity Reaction Status Date / Time aspirin AdvReac Unknown Verified 06/14/23 05:30 ketorolac [From Toradol] AdvReac Unknown Verified 06/14/23 05:30 NSAIDS (Non-Steroidal AdvReac Pt. states Verified 06/14/23 05:30 Anti-Inflamma NSAIDS have given her a GI bleed in the past. Review of Systems ROS Statement: Those systems with pertinent positive or pertinent negative responses have been documented in the HPI. ROS Other: All systems not noted in ROS Statement are negative. Past Medical History Past Medical History: Diabetes Mellitus, Fibromyalgia, GERD/Reflux, GI Bleed, Hyperlipidemia Additional Past Medical History / Comment(s): gallstones, kidney stones, IBS, migraines, tachycardia, Martine- Guevara tear, blood clot, pesudo tumor cerebrea History of Any Multi-Drug Resistant Organisms: None Reported Past Surgical History: Section, Cholecystectomy, Tubal Ligation Additional Past Surgical History / Comment(s): neck biopsy (lymph node ) d&c; LP shunt May 13 2019 feb 0211/2019 -revision, stent/ lithotripsy on left, cystoscopy, shunt revises july 28. Past Anesthesia/Blood Transfusion Reactions: No Reported Reaction Past Psychological History: Anxiety, Bipolar, Depression, PTSD Smoking Status: Vaper Past Alcohol Use History: Rare Past Drug Use History: Marijuana - Past Family History Mother Family Medical History: Diabetes Mellitus, Hyperlipidemia, Hypertension, Myocardial Infarction ([place]) Additional Family Medical History / Comment(s): [place] X 3 Father Family Medical History: Congestive Heart Failure (CHF), Hyperlipidemia, Hypertension, Myocardial Infarction ([place]) Additional Family Medical History / Comment(s): mi x 3 Son(s) Family Medical History: No Reported History General Exam Limitations: no limitations General appearance: alert, in no apparent distress Eye exam: Present: normal appearance ENT exam: Present: other (Patient does have some swelling over the left side of the jaw over the parotid gland. There is no overlying erythema or warmth. Does not. Tender to palpation. Intraoral examination shows no purulent discharge.) Neck exam: Present: other (No significant palpable cervical lymphadenopathy.) Respiratory exam: Present: normal lung sounds bilaterally Cardiovascular Exam: Present: regular rate, normal rhythm Neurological exam: Present: alert, oriented X3 Skin exam: Present: warm, dry Course Vital Signs 07/07/23 14:46 Temperature 98.4 F Pulse Rate 89 Respiratory 16 Rate Blood Pressure 125/81 O2 Sat by Pulse 98 Oximetry Medical Decision Making - Medical Decision Making Was pt. sent in by a medical professional or institution (, PA, OPEN SOURCE DEVELOPER, urgent care, hospital, or usp...) When possible be specific @ -No Did you speak to anyone other than the patient for history (EMS, parent, family, police, friend...)? What history was obtained from this source @ -No Did you review nursing and triage notes (agree or disagree)? Why? @ -I reviewed and agree with nursing and triage notes Were old charts reviewed (outside hosp., previous admission, EMS record, old EKG, old radiological studies, urgent care reports/EKG's, usp records)? Report findings @ -No old charts were reviewed Differential Diagnosis (chest pain, altered mental status, abdominal pain women, abdominal pain men, vaginal bleeding, weakness, fever, dyspnea, syncope, headache, dizziness, GI bleed, back pain, seizure, CVA, palpatations, mental health, musculoskeletal)? @ -Mumps, parotitis, sialoadenitis, sialolithiasis. Is not meant to be an all- inclusive list. EKG interpreted by me (3pts min.). @ -None X-rays interpreted by me (1pt min.). @ -None done CT interpreted by me (1pt min.). @ -None done U/S interpreted by me (1pt. min.). @ -Ultrasound interpreted by me which did show that the palpable area corres ponds with a 1.5 x 0.8 x 1.3 cm lymph node within the left parotid gland. What testing was considered but not performed or refused? (CT, X-rays, U/S, labs)? Why? @ -None What meds were considered but not given or refused? Why? @ -None Did you discuss the management of the patient with other professionals (professionals i.e. , PA, OPEN SOURCE DEVELOPER, lab, RT, psych nurse, social services technician, special effects specialist, te acher, trust officer, trimming caser)? Give summary @ -No Was smoking cessation discussed for >3mins.? @ -No Was critical care preformed (if so, how long)? @ -No Were there social determinants of health that impacted care today? How? (Homelessness, low income, unemployed, alcoholism, drug addiction, transportation, low edu. Level, literacy, decrease access to med. care, long-term, rehab)? @ -No Was there de-escalation of care discussed even if they declined (Discuss DNR or withdrawal of care, Hospice)? DNR status @ -No What co-morbidities impacted this encounter? (DM, HTN, Smoking, COPD, CAD, C ancer, CVA, ARF, Chemo, Hep., AIDS, mental health diagnosis, sleep apnea, morbid obesity)? @ -None Was patient admitted / discharged? Hospital course, mention meds given and route, prescriptions, significant lab abnormalities, going to OR and other pertinent info. @ -Discharge 33-year-old female presenting to the ED with a chief complaint of left facial swelling. Reports last night started to feel swelling over the left side of her face by her jaw. Reported history of a lymph node that was possibly concerning for lymphoma that she had removed, which concerned her today prompting presentation to the ED for further evaluation. Denies any history of discharge in her mouth taste in her mouth. No fever or chills. No preceding symptoms. Exam showed no significant oropharyngeal swelling. Tolerating secretions. No stridor. Ultrasound did show an area measuring 1.5 x 0.8 x 1.3 cm correlating with a lymph node. Given history, advise close follow-up with her PCP. At this time, mumps is felt to be unlikely. Did advise sialagogue use and supportive care. Vital signs stable afebrile. Discharged home in stable condition. discussed strict return precautions with patient who verbalized agreement. Undiagnosed new problem with uncertain prognosis? @ -No Drug Therapy requiring intensive monitoring for toxicity (Heparin, Nitro, Insulin, Cardizem)? @ -No Were any procedures done? @ -No Diagnosis/symptom? @ -Lymphadenopathy Acute, or Chronic, or Acute on Chronic? @ -Acute Uncomplicated (without systemic symptoms) or Complicated (systemic symptoms)? @ -Complicated Side effects of treatment? @ -No Exacerbation, Progression, or Severe Exacerbation? @ -No Poses a threat to life or bodily function? How? (Chest pain, [place], [place], pneumonia, PE, COPD, DKA, ARF, appy, cholecystitis, CVA, Diverticulitis, Homicidal, Suicidal, threat to staff... and all critical care pts) @ -Unlikely - Lab Data Lab Results 07/07/23 Range/Units 15:13 Influenza Type A (PCR) Not Detected (Not Detectd) Influenza Type B (PCR) Not Detected (Not Detectd) RSV (PCR) Not Detected (Not Detectd) SARS-CoV-2 (PCR) Not Detected (Not Detectd) Disposition Clinical Impression: Lymphadenopathy Disposition: HOME SELF-CARE Condition: Good Instructions (If sedation given, give patient instructions): Sialoadenitis (ED), Lymphadenopathy (ED) Additional Instructions: Please return to the Emergency Department if symptoms worsen or any other concerns. Monitor for signs of infection. Please follow-up with your PCP. Is patient prescribed a controlled substance at d/c from ED?: No Referrals: None,Stated [Primary Care Provider] - 1-2 days Time of Disposition: 17:12
[2023-07-07 17:24] VITALS: BP 122/78; PULSE 82; TEMP 98.1
== END 2023-07-07 17:32 | disposition home or self-care (01) ==
LOC: EC 14:36
DX: R59.9 Enlarged lymph nodes, unspecified (principal); E11.9 Type 2 diabetes mellitus without complications; E78.5 Hyperlipidemia, unspecified; F41.9 Anxiety disorder, unspecified; K21.9 Gastro-esophageal reflux disease without esophagitis; F31.9 Bipolar disorder, unspecified; F12.90 Cannabis use, unspecified, uncomplicated; F17.290 Nicotine dependence, other tobacco product, uncomplicated; Z79.84 Long term (current) use of oral hypoglycemic drugs; Z79.899 Other long term (current) drug therapy; Z88.6 Allergy status to analgesic agent; Z88.8 Allergy status to other drugs, medicaments and biological substances; Z90.49 Acquired absence of other specified parts of digestive tract; Z20.822 Contact with and (suspected) exposure to COVID-19
CPT/HCPCS: 76536; 87636; 99284

== ENCOUNTER 2023-07-20 17:47 | Emergency (ER) | payer OTHER ==
--- NOTE | 2023-07-20 18:25 | ED ---
General Adult HPI - General Chief complaint: Abdominal Pain Stated complaint: Abd Pain Source: patient Mode of arrival: ambulatory Limitations: no limitations - History of Present Illness Initial comments: 33-year-old female presents to the emergency department for evaluation of right sided abdominal pain that started yesterday. She notes that it comes and goes. States it is mostly in her upper right region of her abdomen. States it is worse with movement. No fever, chills. Admits to nausea without vomiting. She does have history of cholecystectomy. - Related Data Home Medications Medication Instructions Recorded Confirmed Pravastatin Sodium [Pravachol] 20 mg PO HS 01/20/18 01/02/21 LORazepam [Ativan] 1 mg PO HS PRN 11/24/18 01/02/21 buPROPion HCL [Wellbutrin XL] 300 mg PO DAILY 12/15/19 01/02/21 traZODone HCL 50 mg PO HS 12/15/19 01/02/21 ARIPiprazole 20 mg PO HS 01/09/20 01/02/21 ARIPiprazole [Abilify] 5 mg PO DAILY 01/09/20 01/02/21 Topiramate 50 mg PO HS 01/09/20 01/02/21 busPIRone HCL 15 mg PO TID 01/09/20 01/02/21 Amitriptyline HCl [Elavil] 75 mg PO BID 01/24/20 01/02/21 Verapamil HCl [Verapamil ER] 180 mg PO HS 01/24/20 01/02/21 Gabapentin 600 mg PO TID 02/20/20 01/02/21 OXcarbazepine [Oxtellar Xr] 150 mg PO HS 02/27/20 01/02/21 hydroCHLOROthiazide 25 mg PO DAILY 03/15/20 01/02/21 metFORMIN HCL 500 mg PO DAILY 07/25/20 01/02/21 SUMAtriptan succinate [Imitrex] 50 mg PO DAILY PRN 12/26/20 01/02/21 Prochlorperazine [Compazine] 10 mg PO Q8H PRN 01/02/21 01/02/21 Previous Rx's Medication Instructions Recorded Lidocaine 5% Patch [Lidoderm] 1 patch TOPICAL DAILY #5 patch 12/27/20 valACYclovir HCL [Valtrex] 1,000 mg PO Q8HR #21 tab 12/27/20 Dicyclomine [Bentyl] 20 mg PO TID PRN #20 tablet 01/01/21 Famotidine [Pepcid] 20 mg PO BID #30 tablet 01/01/21 Albuterol Sulfate [Albuterol 1 puff PO Q4-6H PRN #8.5 gm 02/16/23 Sulfate Hfa] Azithromycin [Zithromax] 250 mg PO DIRECTED #6 tab 02/16/23 Ipratropium-Albuterol Nebulize 3 ml INHALATION Q4-6H PRN #90 ml 02/16/23 [Duoneb 0.5 mg-3 mg/3 ml Soln] predniSONE 50 mg PO DAILY 5 Days #5 tab 02/16/23 Erythromycin Ophth Oint [Romycin 1 applic RIGHT EYE Q8HR 5 Days #1 05/12/23 Ophth Oint] each Allergies Allergy/AdvReac Type Severity Reaction Status Date / Time aspirin AdvReac Unknown Verified 06/14/23 05:30 ketorolac [From Toradol] AdvReac Unknown Verified 06/14/23 05:30 NSAIDS (Non-Steroidal AdvReac Pt. states Verified 06/14/23 05:30 Anti-Inflamma NSAIDS have given her a GI bleed in the past. Review of Systems ROS Statement: Those systems with pertinent positive or pertinent negative responses have been documented in the HPI. ROS Other: All systems not noted in ROS Statement are negative. Past Medical History Past Medical History: Diabetes Mellitus, Fibromyalgia, GERD/Reflux, GI Bleed, Hyperlipidemia, Hypertension Additional Past Medical History / Comment(s): gallstones, kidney stones, IBS, migraines, tachycardia, Martine- Guevara tear, blood clot, pesudo tumor cerebrea History of Any Multi-Drug Resistant Organisms: None Reported Past Surgical History: Section, Cholecystectomy, Tubal Ligation Additional Past Surgical History / Comment(s): neck biopsy (lymph node ) d&c; LP shunt May 13 2019 feb 0211/2019 -revision, stent/ lithotripsy on left, cystoscopy, shunt revises july 28. Past Anesthesia/Blood Transfusion Reactions: No Reported Reaction Past Psychological History: Anxiety, Bipolar, Depression, PTSD Smoking Status: Vaper Past Alcohol Use History: Rare Past Drug Use History: Marijuana - Past Family History Mother Family Medical History: Diabetes Mellitus, Hyperlipidemia, Hypertension, Myocardial Infarction ([place]) Additional Family Medical History / Comment(s): VA X 3 Father Family Medical History: Congestive Heart Failure (CHF), Hyperlipidemia, Hypertension, Myocardial Infarction ([place]) Additional Family Medical History / Comment(s): mi x 3 Son(s) Family Medical History: No Reported History General Exam - General Exam Comments Initial Comments: Visual Physical Exam Vital signs reviewed General: Well-appearing, nontoxic, no acute distress. Head: Normocephalic, atraumatic Eyes: PERRLA, EOMI ENT: Airway patent Chest: Nonlabored breathing Skin: No visual rash, normal skin tone Neuro: Alert and oriented 3 Musculoskeletal: No gross abnormalities Limitations: no limitations General appearance: alert, in no apparent distress Head exam: Present: atraumatic, normocephalic, normal inspection Eye exam: Present: normal appearance, PERRL, EOMI. Absent: scleral icterus, conjunctival injection, periorbital swelling ENT exam: Present: normal exam, mucous membranes moist Neck exam: Present: normal inspection. Absent: tenderness, meningismus, lymphadenopathy Respiratory exam: Present: normal lung sounds bilaterally. Absent: respiratory distress, wheezes, rales, rhonchi, stridor Cardiovascular Exam: Present: regular rate, normal rhythm, normal heart sounds. Absent: systolic murmur, diastolic murmur, rubs, gallop, clicks GI/Abdominal exam: Present: soft, tenderness (Mild right upper quadrant), normal bowel sounds, other (Negative McBurney point tenderness, negative Rovsing sign). Absent: distended, guarding, rebound, rigid Extremities exam: Present: normal inspection, full ROM, normal capillary refill. Absent: tenderness, pedal edema, joint swelling, calf tenderness Back exam: Present: normal inspection Neurological exam: Present: alert, oriented X3 Psychiatric exam: Present: normal affect, normal mood Skin exam: Present: warm, dry, intact, normal color. Absent: rash Course Vital Signs 07/20/23 07/20/23 07/20/23 18:16 21:05 22:45 Temperature 98.2 F Pulse Rate 94 84 76 Respiratory 16 18 16 Rate Blood Pressure 135/88 113/56 127/83 O2 Sat by Pulse 98 97 98 Oximetry Medical Decision Making - Medical Decision Making Quick note preformed and electronically signed by Piper Moyer PA-C Was pt. sent in by a medical professional or institution ([facility], [employer], urgent care, hospital, or custodial...) When possible be specific @ -[No] Did you speak to anyone other than the patient for history (EMS, parent, family, police, friend...)? What history was obtained from this source @ -[No] Did you review nursing and triage notes (agree or disagree)? Why? @ -[I reviewed and agree with nursing and triage notes] Were old charts reviewed (outside hosp., previous admission, EMS record, old EKG , old radiological studies, urgent care reports/EKG's, custodial records)? Report findings @ -[No old charts were reviewed] Differential Diagnosis (chest pain, altered mental status, abdominal pain women, abdominal pain men, vaginal bleeding, weakness, fever, dyspnea, syncope, headache, dizziness, GI bleed, back pain, seizure, CVA, palpatations, mental health, musculoskeletal)? @ -Differential Abdominal Pain Women: Appendicitis, Cholecystitis, diverticulosis, ischemic bowel, pancreatitis, hepatitis, UTI, gastroenteritis, AAA, incarcerated hernia, bowel obstruction, constipation, inflammatory bowel, hepatitis, peptic ulcer disease, splenic infarction, perforated viscus, vulvitis, ovarian torsion, PID, kidney stone, placenta abruption, this is not meant to be an all-inclusive list EKG interpreted by me (3pts min.). @ -None X-rays interpreted by me (1pt min.). @ -[None done] CT interpreted by me (1pt min.). @ -[None done] U/S interpreted by me (1pt. min.). @ -[None done] What testing was considered but not performed or refused? (CT, X-rays, U/S, labs)? Why? @ -[None] What meds were considered but not given or refused? Why? @ -[None] Did you discuss the management of the patient with other professionals (professionals i.e. [facility], [employer], lab, RT, psych nurse, school social worker, coroner/medical examiner, teacher, chief safety officer, pillowcase maker)? Give summary @ -[No] Was smoking cessation discussed for >3mins.? @ -[No] Was critical care preformed (if so, how long)? @ -[No] Were there social determinants of health that impacted care today? How? (Homelessness, low income, unemployed, alcoholism, drug addiction, transportation, low edu. Level, literacy, decrease access to med. care, senior living, rehab)? @ -[No] Was there de-escalation of care discussed even if they declined (Discuss DNR or withdrawal of care, Hospice)? DNR status @ -[No] What co-morbidities impacted this encounter? (DM, HTN, Smoking, COPD, CAD, Cancer, CVA, ARF, Chemo, Hep., AIDS, mental health diagnosis, sleep apnea, mor bid obesity)? @ -[None] Was patient admitted / discharged? Hospital course, mention meds given and route, prescriptions, significant lab abnormalities, going to OR and other pertinent info. @ -[Discharge. Patient presented to the emergency department for evaluation of right upper abdominal pain. She states that this started yesterday. She does state that it is worse with movement. She denies fever, chills. Admits to nausea without vomiting. She does have a history of cholecystectomy. La boratory studies obtained which show mild leukocytosis at 11.Normal BUN and creatinine, bilirubin 0.6, normal LFTs. UA was obtained which shows no evidence for infectious process, negative urine hCG. She was advised on findings of laboratory studies. Patient received medication for pain control And nausea. She is feeling better and would like to be discharged. Patient stable at time of discharge. Case discussed with Dr. Osman] Undiagnosed new problem with uncertain prognosis? @ -[No] Drug Therapy requiring intensive monitoring for toxicity (Heparin, Nitro, Insu meliza, Cardizem)? @ -[No] Were any procedures done? @ -[No] Diagnosis/symptom? @ -[abdominal pain] Acute, or Chronic, or Acute on Chronic? @ -acute Uncomplicated (without systemic symptoms) or Complicated (systemic symptoms)? @ -uncpomplicated Side effects of treatment? @ -[No] Exacerbation, Progression, or Severe Exacerbation? @ -[No] Poses a threat to life or bodily function? How? (Chest pain, [place], [place], pneumonia, PE, COPD, DKA, ARF, appy, cholecystitis, CVA, Diverticulitis, Homicidal, Sigrid cidal, threat to staff... and all critical care pts) @ -[No] - Lab Data Result diagrams: 07/20/23 19:00 07/20/23 19:00 Lab Results 07/20/23 07/20/23 07/20/23 Range/Units 18:24 18:24 19:00 WBC 11.4 H (3.8-10.6) k/uL RBC 4.72 (3.80-5.40) m/uL Hgb 12.6 (11.4-16.0) gm/dL Hct 39.5 (34.0-46.0) % MCV 83.6 (80.0-100.0) fL MCH 26.7 (25.0-35.0) pg MCHC 31.9 (31.0-37.0) g/dL RDW 14.6 (11.5-15.5) % Plt Count 332 (150-450) k/uL MPV 7.4 Neutrophils % 60 % Lymphocytes % 28 % Monocytes % 4 % Eosinophils % 5 % Basophils % 1 % Neutrophils # 6.9 (1.3-7.7) k/uL Lymphocytes # 3.2 (1.0-4.8) k/uL Monocytes # 0.4 (0-1.0) k/uL Eosinophils # 0.6 (0-0.7) k/uL Basophils # 0.1 (0-0.2) k/uL Sodium (137-145) mmol/L Potassium (3.5-5.1) mmol/L Chloride (98-107) mmol/L Carbon Dioxide (22-30) mmol/L Anion Gap mmol/L BUN (7-17) mg/dL Creatinine (0.52-1.04) mg/dL Est GFR (CKD-EPI)AfAm (>60 ml/min/1.73 sqM) Est GFR (CKD-EPI)NonAf (>60 ml/min/1.73 sqM) Glucose (74-99) mg/dL Calcium (8.4-10.2) mg/dL Total Bilirubin (0.2-1.3) mg/dL AST (14-36) U/L ALT (4-34) U/L Alkaline Phosphatase (38-126) U/L Total Protein (6.3-8.2) g/dL Albumin (3.5-5.0) g/dL Amylase (30-110) U/L Lipase (23-300) U/L Urine Color Light Yellow Urine Appearance Clear (Clear) Urine pH 6.0 (5.0-8.0) Ur Specific [place] 1.023 (1.001-1.035) Urine Protein Negative (Negative) Urine Glucose (UA) Negative (Negative) Urine Ketones Negative (Negative) Urine Blood Negative (Negative) Urine Nitrite Negative (Negative) Urine Bilirubin Negative (Negative) Urine Urobilinogen <2.0 (<2.0) mg/dL Ur Leukocyte Esterase Negative (Negative) Urine HCG, Qual Not Detected (Not Detectd) 07/20/23 Range/Units 19:00 WBC (3.8-10.6) k/uL RBC (3.80-5.40) m/uL Hgb (11.4-16.0) gm/dL Hct (34.0-46.0) % MCV (80.0-100.0) fL MCH (25.0-35.0) pg MCHC (31.0-37.0) g/dL RDW (11.5-15.5) % Plt Count (150-450) k/uL MPV Neutrophils % % Lymphocytes % % Monocytes % % Eosinophils % % Basophils % % Neutrophils # (1.3-7.7) k/uL Lymphocytes # (1.0-4.8) k/uL Monocytes # (0-1.0) k/uL Eosinophils # (0-0.7) k/uL Basophils # (0-0.2) k/uL Sodium 141 (137-145) mmol/L Potassium 3.8 (3.5-5.1) mmol/L Chloride 109 H (98-107) mmol/L Carbon Dioxide 22 (22-30) mmol/L Anion Gap 10 mmol/L BUN 12 (7-17) mg/dL Creatinine 0.59 (0.52-1.04) mg/dL Est GFR (CKD-EPI)AfAm >90 (>60 ml/min/1.73 sqM) Est GFR (CKD-EPI)NonAf >90 (>60 ml/min/1.73 sqM) Glucose 101 H (74-99) mg/dL Calcium 8.9 (8.4-10.2) mg/dL Total Bilirubin 0.6 (0.2-1.3) mg/dL AST 35 (14-36) U/L ALT 54 H (4-34) U/L Alkaline Phosphatase 117 (38-126) U/L Total Protein 6.6 (6.3-8.2) g/dL Albumin 3.8 (3.5-5.0) g/dL Amylase 53 (30-110) U/L Lipase 56 (23-300) U/L Urine Color Urine Appearance (Clear) Urine pH (5.0-8.0) Ur Specific [place] (1.001-1.035) Urine Protein (Negative) Urine Glucose (UA) (Negative) Urine Ketones (Negative) Urine Blood (Negative) Urine Nitrite (Negative) Urine Bilirubin (Negative) Urine Urobilinogen (<2.0) mg/dL Ur Leukocyte Esterase (Negative) Urine HCG, Qual (Not Detectd) Disposition Clinical Impression: Abdominal pain Disposition: HOME SELF-CARE Condition: Stable Instructions (If sedation given, give patient instructions): Abdominal Pain (ED) Additional Instructions: Please follow-up with your primary care provider. Utilize Tylenol for pain control. Return to the emergency department for new or worsening symptoms. Is patient prescribed a controlled substance at d/c from ED?: No Referrals: None,Stated [Primary Care Provider] - 1-2 days
[2023-07-20 18:39] VITALS: TEMP 98.2
[2023-07-20 19:28] LABS: Basophils # (A) 0.1 k/uL (0-0.2); Basophils % (A) 1 %; Eosinophils # (A) 0.6 k/uL (0-0.7); Eosinophils % (A) 5 %; HCT 39.5 % (34.0-46.0); HGB 12.6 gm/dL (11.4-16.0); Lymphocytes # (A) 3.2 k/uL (1.0-4.8); Lymphocytes % (A) 28 %; MCH 26.7 pg (25.0-35.0); MCHC 31.9 g/dL (31.0-37.0); MCV 83.6 fL (80.0-100.0); Mean Platelet Volume 7.4; Monocytes # (A) 0.4 k/uL (0-1.0); Monocytes % (A) 4 %; Neutrophils # (A) 6.9 k/uL (1.3-7.7); Neutrophils % (A) 60 %; Platelet Count 332 k/uL (150-450); RBC 4.72 m/uL (3.80-5.40); RDW 14.6 % (11.5-15.5); WBC 11.4 k/uL (3.8-10.6)
[2023-07-20 19:29] LABS: Appearance,Urine Clear (Clear); Bilirubin,Urine Negative (Negative); Blood,Urine Negative (Negative); Color,Urine Light Yellow; Glucose,Urine (UA) Negative (Negative); Ketones,Urine Negative (Negative); Leukocyte Esterase,Urine Negative (Negative); Nitrite,Urine Negative (Negative); Protein,Urine Negative (Negative); Specific Gravity,Urine 1.023 (1.001-1.035); Urobilinogen,Urine <2.0 mg/dL (<2.0)
[2023-07-20 20:17] LABS: ALT 54 U/L (4-34); AST 35 U/L (14-36); African American GFR (CKD) >90 (>60 ml/min/1.73 sqM); Albumin 3.8 g/dL (3.5-5.0); Alkaline Phosphatase 117 U/L (38-126); Amylase 53 U/L (30-110); Anion Gap 10 mmol/L; Blood Urea Nitrogen 12 mg/dL (7-17); Calcium 8.9 mg/dL (8.4-10.2); Carbon Dioxide 22 mmol/L (22-30); Chloride 109 mmol/L (98-107); Glucose 101 mg/dL (74-99); Lipase 56 U/L (23-300); Non-African American GFR(CKD) >90 (>60 ml/min/1.73 sqM); Potassium 3.8 mmol/L (3.5-5.1); Sodium 141 mmol/L (137-145); Total Bilirubin 0.6 mg/dL (0.2-1.3); Total Protein 6.6 g/dL (6.3-8.2)
[2023-07-20] MEDS: MORPHINE SULFATE 4 MG/ML SYRINGE IVP STA (21:38)
[2023-07-20] MEDS: ONDANSETRON 4 MG/2 ML VIAL IVP STA (21:38)
[2023-07-20 22:47] VITALS: BP 127/83; PULSE 76; RESP 16
== END 2023-07-20 22:45 | disposition home or self-care (01) ==
LOC: EC 17:47
DX: R10.11 Right upper quadrant pain (principal); F17.290 Nicotine dependence, other tobacco product, uncomplicated; F12.90 Cannabis use, unspecified, uncomplicated; Z88.6 Allergy status to analgesic agent
CPT/HCPCS: 36415; 80053; 82150; 83690; 85025; 81003; 81025; 99284; 96374; 96375; J2270; J2405

== ENCOUNTER 2023-08-01 09:32 | Emergency (ER) | payer OTHER ==
--- NOTE | 2023-08-01 09:54 | ED ---
Abdominal Pain HPI - General Chief Complaint: Back Pain/Injury Stated Complaint: Pain in side Time Seen by Provider: 08/01/23 09:37 Source: patient, RN notes reviewed Mode of arrival: ambulatory Limitations: no limitations - History of Present Illness Initial Comments: This is a 33-year-old female who presents to the emergency department for flank pain. States that it started this morning. Pain is on both sides, but worse on the right. Pain is wrapping around to the abdomen and she has associated nausea. Pain feels similar to the last time she had a kidney stone in 2019, which required treatment with the lithotripsy. Denies any urinary symptoms or fever/chills. MD Complaint: abdominal pain, flank pain - Related Data Home Medications Medication Instructions Recorded Confirmed Pravastatin Sodium [Pravachol] 20 mg PO HS 01/20/18 01/02/21 LORazepam [Ativan] 1 mg PO HS PRN 11/24/18 01/02/21 buPROPion HCL [Wellbutrin XL] 300 mg PO DAILY 12/15/19 01/02/21 traZODone HCL 50 mg PO HS 12/15/19 01/02/21 ARIPiprazole 20 mg PO HS 01/09/20 01/02/21 ARIPiprazole [Abilify] 5 mg PO DAILY 01/09/20 01/02/21 Topiramate 50 mg PO HS 01/09/20 01/02/21 busPIRone HCL 15 mg PO TID 01/09/20 01/02/21 Amitriptyline HCl [Elavil] 75 mg PO BID 01/24/20 01/02/21 Verapamil HCl [Verapamil ER] 180 mg PO HS 01/24/20 01/02/21 Gabapentin 600 mg PO TID 02/20/20 01/02/21 OXcarbazepine [Oxtellar Xr] 150 mg PO HS 02/27/20 01/02/21 hydroCHLOROthiazide 25 mg PO DAILY 03/15/20 01/02/21 metFORMIN HCL 500 mg PO DAILY 07/25/20 01/02/21 SUMAtriptan succinate [Imitrex] 50 mg PO DAILY PRN 12/26/20 01/02/21 Prochlorperazine [Compazine] 10 mg PO Q8H PRN 01/02/21 01/02/21 Previous Rx's Medication Instructions Recorded Lidocaine 5% Patch [Lidoderm] 1 patch TOPICAL DAILY #5 patch 12/27/20 valACYclovir HCL [Valtrex] 1,000 mg PO Q8HR #21 tab 12/27/20 Dicyclomine [Bentyl] 20 mg PO TID PRN #20 tablet 01/01/21 Famotidine [Pepcid] 20 mg PO BID #30 tablet 01/01/21 Albuterol Sulfate [Albuterol 1 puff PO Q4-6H PRN #8.5 gm 02/16/23 Sulfate Hfa] Azithromycin [Zithromax] 250 mg PO DIRECTED #6 tab 02/16/23 Ipratropium-Albuterol Nebulize 3 ml INHALATION Q4-6H PRN #90 ml 02/16/23 [Duoneb 0.5 mg-3 mg/3 ml Soln] predniSONE 50 mg PO DAILY 5 Days #5 tab 02/16/23 Erythromycin Ophth Oint [Romycin 1 applic RIGHT EYE Q8HR 5 Days #1 05/12/23 Ophth Oint] each Ondansetron Odt [Zofran Odt] 4 mg PO Q8HR PRN #15 tab 08/01/23 methocarbamoL [Robaxin-750] 1,500 mg PO TID PRN #30 tab 08/01/23 Allergies Allergy/AdvReac Type Severity Reaction Status Date / Time aspirin AdvReac Unknown Verified 08/01/23 09:36 ketorolac [From Toradol] AdvReac Unknown Verified 08/01/23 09:36 NSAIDS (Non-Steroidal AdvReac Pt. states Verified 08/01/23 09:36 Anti-Inflamma NSAIDS have given her a GI bleed in the past. Review of Systems ROS Statement: Those systems with pertinent positive or pertinent negative responses have been documented in the HPI. ROS Other: All systems not noted in ROS Statement are negative. Past Medical History Past Medical History: Diabetes Mellitus, Fibromyalgia, GERD/Reflux, GI Bleed, Hyperlipidemia, Hypertension Additional Past Medical History / Comment(s): gallstones, kidney stones, IBS, migraines, tachycardia, Martine- Guevara tear, blood clot, pesudo tumor cerebrea History of Any Multi-Drug Resistant Organisms: None Reported Past Surgical History: Section, Cholecystectomy, Tubal Ligation Additional Past Surgical History / Comment(s): neck biopsy (lymph node ) d&c; LP shunt May 13 2019 feb 0211/2019 -revision, stent/ lithotripsy on left, cystoscopy, shunt revises july 28. Past Anesthesia/Blood Transfusion Reactions: No Reported Reaction Past Psychological History: Anxiety, Bipolar, Depression, PTSD Smoking Status: Vaper Past Alcohol Use History: Rare Past Drug Use History: Marijuana - Past Family History Mother Family Medical History: Diabetes Mellitus, Hyperlipidemia, Hypertension, Myocardial Infarction (SD) Additional Family Medical History / Comment(s): SD X 3 Father Family Medical History: Congestive Heart Failure (CHF), Hyperlipidemia, Hypertension, Myocardial Infarction (SD) Additional Family Medical History / Comment(s): mi x 3 Son(s) Family Medical History: No Reported History General Exam Limitations: no limitations General appearance: alert, in no apparent distress Head exam: Present: atraumatic, normocephalic, normal inspection Respiratory exam: Present: normal lung sounds bilaterally. Absent: respiratory distress, wheezes, rales, rhonchi, stridor Cardiovascular Exam: Present: regular rate, normal rhythm, normal heart sounds. Absent: systolic murmur, diastolic murmur, rubs, gallop, clicks GI/Abdominal exam: Present: soft, tenderness (Mid abdomen), normal bowel sounds. Absent: distended, guarding, rebound, rigid Back exam: Present: CVA tenderness (R), CVA tenderness (L) Neurological exam: Present: alert, oriented X3, CN II-XII intact Psychiatric exam: Present: normal affect, normal mood Skin exam: Present: warm, dry, intact, normal color. Absent: rash Course Vital Signs 08/01/23 08/01/23 08/01/23 09:34 09:36 12:12 Temperature 98.3 F Pulse Rate 90 104 H 67 Respiratory 18 20 16 Rate Blood Pressure 128/85 145/62 O2 Sat by Pulse 99 87 L 99 Oximetry 08/01/23 12:57 Temperature Pulse Rate 81 Respiratory 16 Rate Blood Pressure 145/89 O2 Sat by Pulse 98 Oximetry Medical Decision Making - Medical Decision Making This is a 33-year-old female who presents to the emergency department for flank pain and abdominal pain. Was pt. sent in by a medical professional or institution? @ -No Did you speak to anyone other than the patient for history? @ -No Did you review nursing and triage notes? @ -Yes, and I agree, it is accurate with regards to the patient's symptoms. Were old charts reviewed? @ -No Differential Diagnosis? @ -Differential Flank Pain: UTI, pyelonephritis, kidney stone, musculoskeletal, pancreatitis, cholecystitis, this is not meant to be an all-inclusive list. EKG interpreted by me (3pts min.)? @ -Not obtained X-rays interpreted by me (1pt min.)? @ -Not obtained CT interpreted by me (1pt min.)? @ -CT scan of the abdomen and pelvis obtained. My interpretation identifies no evidence of a ureteral calculus. U/S interpreted by me (1pt. min.)? @ -Not obtained What testing was considered but not performed? (CT, X-rays, U/S, labs)? Why? @ -None What meds were considered but not given? Why? @ -None Did you discuss the management of the patient with other professionals? @ -No Did you reconcile home meds? @ -No Was smoking cessation discussed for >3mins.? @ -No Was critical care preformed (if so, how long)? @ -No Were there social determinants of health that impacted care today? How? (Homelessness, low income, unemployed, alcoholism, drug addiction, transportation, low edu. Level, literacy, decrease access to med. care, penitentiary, rehab)? @ -No Was there de-escalation of care discussed even if they declined? (Discuss DNR or withdrawal of care, Hospice)? @ -No What co-morbidities impacted this encounter? (DM, HTN, Smoking, COPD, CAD, Cancer, CVA, Hep., AIDS, mental health diagnosis, sleep apnea, morbid obesity)? @ -Kidney stones, IBS, DM. Was patient admitted / discharged? @ -Discharged. Lab work demonstrates mildly elevated LFTs and was otherwise unremarkable. Urinalysis negative for signs of blood or infection. CT scan of the abdomen pelvis obtained revealing no acute process. Advised that given that pain is predominantly in her back, this may be musculoskeletal in nature. Symptoms well-controlled in the emergency department. Prescription for Zofran and Robaxin provided with dosing instructions reviewed. Patient discharged home in stable condition. Undiagnosed new problem with uncertain prognosis? @ -None Drug Therapy requiring intensive monitoring for toxicity (Heparin, Nitro, Insulin, Cardizem)? @ -None Were any procedures done? @ -None Diagnosis/symptom? @ -Back pain, abdominal pain Acute, or Chronic, or Acute on Chronic? @ -Acute Uncomplicated (without systemic symptoms) or Complicated (systemic symptoms)? @ -Uncomplicated Side effects of treatment? @ -None Exacerbation, Progression, or Severe Exacerbation] @ -Not applicable Poses a threat to life or bodily function? @ -No Return precautions reviewed in depth, the patient is instructed to return to the emergency department with any new, worsening, or concerning symptoms. Patient verbalized understanding. This case was discussed in detail with the attending ED physician, Dr. Ordonez. Presentation, findings, and treatment plan discussed in detail as well. - Lab Data Result diagrams: 08/01/23 10:14 08/01/23 10:14 Lab Results 08/01/23 08/01/23 08/01/23 Range/Units 10:14 10:14 10:14 WBC 7.7 (3.8-10.6) k/uL RBC 4.68 (3.80-5.40) m/uL Hgb 12.4 (11.4-16.0) gm/dL Hct 38.6 (34.0-46.0) % MCV 82.5 (80.0-100.0) fL MCH 26.6 (25.0-35.0) pg MCHC 32.2 (31.0-37.0) g/dL RDW 14.4 (11.5-15.5) % Plt Count 298 (150-450) k/uL MPV 7.1 Neutrophils % 58 % Lymphocytes % 31 % Monocytes % 3 % Eosinophils % 6 % Basophils % 1 % Neutrophils # 4.4 (1.3-7.7) k/uL Lymphocytes # 2.4 (1.0-4.8) k/uL Monocytes # 0.3 (0-1.0) k/uL Eosinophils # 0.5 (0-0.7) k/uL Basophils # 0.1 (0-0.2) k/uL Sodium 140 (137-145) mmol/L Potassium 4.1 (3.5-5.1) mmol/L Chloride 110 H (98-107) mmol/L Carbon Dioxide 23 (22-30) mmol/L Anion Gap 7 mmol/L BUN 11 (7-17) mg/dL Creatinine 0.62 (0.52-1.04) mg/dL Est GFR (CKD-EPI)AfAm >90 (>60 ml/min/1.73 sqM) Est GFR (CKD-EPI)NonAf >90 (>60 ml/min/1.73 sqM) Glucose 147 H (74-99) mg/dL Plasma Lactic Acid Darnell 1.6 (0.7-2.0) mmol/L Calcium 9.1 (8.4-10.2) mg/dL Total Bilirubin 0.6 (0.2-1.3) mg/dL AST 47 H (14-36) U/L ALT 62 H (4-34) U/L Alkaline Phosphatase 127 H (38-126) U/L Total Protein 6.4 (6.3-8.2) g/dL Albumin 3.7 (3.5-5.0) g/dL Amylase 38 (30-110) U/L Lipase 64 (23-300) U/L Urine Color Urine Appearance (Clear) Urine pH (5.0-8.0) Ur Specific [place] (1.001-1.035) Urine Protein (Negative) Urine Glucose (UA) (Negative) Urine Ketones (Negative) Urine Blood (Negative) Urine Nitrite (Negative) Urine Bilirubin (Negative) Urine Urobilinogen (<2.0) mg/dL Ur Leukocyte Esterase (Negative) Urine RBC (0-5) /hpf Urine WBC (0-5) /hpf Ur Squamous Epith Cells (0-4) /hpf Urine Mucus (None) /hpf Urine HCG, Qual (Not Detectd) 08/01/23 08/01/23 Range/Units 11:27 11:27 WBC (3.8-10.6) k/uL RBC (3.80-5.40) m/uL Hgb (11.4-16.0) gm/dL Hct (34.0-46.0) % MCV (80.0-100.0) fL MCH (25.0-35.0) pg MCHC (31.0-37.0) g/dL RDW (11.5-15.5) % Plt Count (150-450) k/uL MPV Neutrophils % % Lymphocytes % % Monocytes % % Eosinophils % % Basophils % % Neutrophils # (1.3-7.7) k/uL Lymphocytes # (1.0-4.8) k/uL Monocytes # (0-1.0) k/uL Eosinophils # (0-0.7) k/uL Basophils # (0-0.2) k/uL Sodium (137-145) mmol/L Potassium (3.5-5.1) mmol/L Chloride (98-107) mmol/L Carbon Dioxide (22-30) mmol/L Anion Gap mmol/L BUN (7-17) mg/dL Creatinine (0.52-1.04) mg/dL Est GFR (CKD-EPI)AfAm (>60 ml/min/1.73 sqM) Est GFR (CKD-EPI)NonAf (>60 ml/min/1.73 sqM) Glucose (74-99) mg/dL Plasma Lactic Acid Darnell (0.7-2.0) mmol/L Calcium (8.4-10.2) mg/dL Total Bilirubin (0.2-1.3) mg/dL AST (14-36) U/L ALT (4-34) U/L Alkaline Phosphatase (38-126) U/L Total Protein (6.3-8.2) g/dL Albumin (3.5-5.0) g/dL Amylase (30-110) U/L Lipase (23-300) U/L Urine Color Light Yellow Urine Appearance Clear (Clear) Urine pH 5.5 (5.0-8.0) Ur Specific [place] 1.024 (1.001-1.035) Urine Protein Negative (Negative) Urine Glucose (UA) Negative (Negative) Urine Ketones Negative (Negative) Urine Blood Small H (Negative) Urine Nitrite Negative (Negative) Urine Bilirubin Negative (Negative) Urine Urobilinogen <2.0 (<2.0) mg/dL Ur Leukocyte Esterase Negative (Negative) Urine RBC 1 (0-5) /hpf Urine WBC 3 (0-5) /hpf Ur Squamous Epith Cells 7 H (0-4) /hpf Urine Mucus Rare H (None) /hpf Urine HCG, Qual Not Detected (Not Detectd) - Radiology Data Radiology results: report reviewed, image reviewed Disposition Clinical Impression: Abdominal pain, Back pain Disposition: HOME SELF-CARE Condition: Good Instructions (If sedation given, give patient instructions): Abdominal Pain (ED) Additional Instructions: Return to the emergency department with any new, worsening, or concerning symptoms. Take Tylenol as needed for pain relief. You can take the Robaxin as 1 to 2 tablets up to 3-4 times daily for pain relief. You can take the Zofran up to every 8 hours as needed for nausea and vomiting. Review the list of primary care providers provided to see if you can become established for ongoing medical care. Prescriptions: methocarbamoL [Robaxin-750] 1,500 mg PO TID PRN #30 tab PRN Reason: Pain Ondansetron Odt [Zofran Odt] 4 mg PO Q8HR PRN #15 tab PRN Reason: Nausea And Vomiting Is patient prescribed a controlled substance at d/c from ED?: No Referrals: None,Stated [Primary Care Provider] - 1-2 days Forms: Area PCPs Time of Disposition: 12:41
[2023-08-01] MEDS: SODIUM CHLORIDE 0.9% 1,000 ML IV STA (10:26)
[2023-08-01] MEDS: HYDROmorphone 1 MG/ML 1 ML SYRINGE IVP STA ×2 (10:26→11:56)
[2023-08-01 10:27] LABS: Basophils # (A) 0.1 k/uL (0-0.2); Basophils % (A) 1 %; Eosinophils # (A) 0.5 k/uL (0-0.7); Eosinophils % (A) 6 %; HCT 38.6 % (34.0-46.0); HGB 12.4 gm/dL (11.4-16.0); Lymphocytes # (A) 2.4 k/uL (1.0-4.8); Lymphocytes % (A) 31 %; MCH 26.6 pg (25.0-35.0); MCHC 32.2 g/dL (31.0-37.0); MCV 82.5 fL (80.0-100.0); Mean Platelet Volume 7.1; Monocytes # (A) 0.3 k/uL (0-1.0); Monocytes % (A) 3 %; Neutrophils # (A) 4.4 k/uL (1.3-7.7); Neutrophils % (A) 58 %; Platelet Count 298 k/uL (150-450); RBC 4.68 m/uL (3.80-5.40); RDW 14.4 % (11.5-15.5); WBC 7.7 k/uL (3.8-10.6)
[2023-08-01] MEDS: ONDANSETRON 4 MG/2 ML VIAL IVP STA (10:31)
[2023-08-01 10:45] LABS: ALT 62 U/L (4-34); AST 47 U/L (14-36); African American GFR (CKD) >90 (>60 ml/min/1.73 sqM); Albumin 3.7 g/dL (3.5-5.0); Alkaline Phosphatase 127 U/L (38-126); Amylase 38 U/L (30-110); Anion Gap 7 mmol/L; Blood Urea Nitrogen 11 mg/dL (7-17); Calcium 9.1 mg/dL (8.4-10.2); Carbon Dioxide 23 mmol/L (22-30); Chloride 110 mmol/L (98-107); Glucose 147 mg/dL (74-99); Lipase 64 U/L (23-300); Non-African American GFR(CKD) >90 (>60 ml/min/1.73 sqM); Potassium 4.1 mmol/L (3.5-5.1); Sodium 140 mmol/L (137-145); Total Bilirubin 0.6 mg/dL (0.2-1.3); Total Protein 6.4 g/dL (6.3-8.2)
[2023-08-01 10:47] VITALS: TEMP 98.3
--- NOTE | 2023-08-01 11:02 | CT ---
EXAMINATION TYPE: CT abdomen pelvis wo con DATE OF EXAM: 08/01/2023 COMPARISON: 02/21/2023 INDICATION: bilateral flank pain DLP: 1716.9 mGycm, Automated exposure control for dose reduction was used. CONTRAST: 0 mL of Isovue 300. Study performed without Oral Contrast TECHNIQUE: Axial images were obtained from above the diaphragm to the pubic rami in the axial plane a t 5 mm thick sections. Reconstructed images are reviewed on the computer in the coronal plane. FINDINGS: Shunt catheter is present in the upper abdomen Limited CT sections are obtained the lung bases. The lung bases are clear. CT ABDOMEN: Liver: Some mild fatty infiltration of the liver may be present. Spleen: Normal Pancreas: Normal Adrenal glands: The adrenal glands are normal. Gallbladder: Surgically absent Kidneys: No masses are evident. No hydronephrosis is present. No cysts are present. No renal stone s are evident. Aorta: Vascular calcification is within the aorta. Inferior vena cava: Normal. CT PELVIS: Minimal fluid is within the pelvis. Loops of bowel within the abdomen and pelvis are normal. There are loops of bowel which are incom pletely distended or lack oral contrast limiting their evaluation. Appendix: Not clearly identified. No dilated tubular structure or inflammatory changes are evident. Urinary bladder: Normal. Genitourinary structures: Uterus and adnexa appear normal. Osseous structures: No suspicious lytic or sclerotic lesions. IMPRESSION: 1. Minimal fluid within the pelvis. This can be physiologic. 2. There may be some mild fatty infiltration of the liver.
[2023-08-01 11:55] LABS: Appearance,Urine Clear (Clear); Bilirubin,Urine Negative (Negative); Blood,Urine Small (Negative); Color,Urine Light Yellow; Glucose,Urine (UA) Negative (Negative); Ketones,Urine Negative (Negative); Leukocyte Esterase,Urine Negative (Negative); Mucus,Urine Rare /hpf; Nitrite,Urine Negative (Negative); PH, Urine 5.5 (5.0-8.0); Protein,Urine Negative (Negative); RBC,Urine 1 /hpf (0-5); Specific Gravity,Urine 1.024 (1.001-1.035); Squamous Epithelial Cell,Urine 7 /hpf (0-4); Urobilinogen,Urine <2.0 mg/dL (<2.0); WBC,Urine 3 /hpf (0-5)
[2023-08-01] MEDS: ORPHENADRINE 30 MG/ML 2 ML VIAL IVP STA (11:56)
[2023-08-01 12:54] VITALS: RESP 16
[2023-08-01 13:33] VITALS: BP 145/89; PULSE 81
== END 2023-08-01 12:59 | disposition home or self-care (01) ==
LOC: EC 09:32
DX: M54.9 Dorsalgia, unspecified (principal); R10.9 Unspecified abdominal pain; E11.9 Type 2 diabetes mellitus without complications; K58.9 Irritable bowel syndrome, unspecified; R79.89 Other specified abnormal findings of blood chemistry; F17.290 Nicotine dependence, other tobacco product, uncomplicated; Z88.6 Allergy status to analgesic agent; Z79.84 Long term (current) use of oral hypoglycemic drugs; Z90.49 Acquired absence of other specified parts of digestive tract; Z87.442 Personal history of urinary calculi
CPT/HCPCS: 99284; 96374; 96375 ×2; 96376; 96361 ×2; 36415; 80053; 82150; 83605; 83690; 85025; 81001; 81025; 74176; J2360; J2405; J1170

== ENCOUNTER 2023-09-27 01:59 | Emergency (ER) | payer OTHER ==
[2023-09-27 02:47] LABS: Basophils # (A) 0.1 k/uL (0-0.2); Basophils % (A) 1 %; Eosinophils # (A) 0.6 k/uL (0-0.7); Eosinophils % (A) 6 %; HCT 36.9 % (34.0-46.0); Lymphocytes # (A) 2.5 k/uL (1.0-4.8); Lymphocytes % (A) 27 %; MCH 26.7 pg (25.0-35.0); MCHC 32.5 g/dL (31.0-37.0); MCV 82.2 fL (80.0-100.0); Mean Platelet Volume 7.5; Monocytes # (A) 0.3 k/uL (0-1.0); Monocytes % (A) 4 %; Neutrophils # (A) 5.7 k/uL (1.3-7.7); Neutrophils % (A) 61 %; Platelet Count 333 k/uL (150-450); RBC 4.49 m/uL (3.80-5.40); RDW 14.1 % (11.5-15.5); WBC 9.3 k/uL (3.8-10.6)
[2023-09-27] MEDS: ASPIRIN 81 MG PO STA (02:51)
[2023-09-27] MEDS: NITROGLYCERIN SL TABS 0.4 MG TAB SUBLINGUAL STA (02:53)
[2023-09-27 03:02] LABS: INR 0.9 (<1.2); Prothrombin Time 9.9 sec (10.0-12.5)
[2023-09-27 03:15] LABS: ALT 45 U/L (4-34); AST 30 U/L (14-36); African American GFR (CKD) >90 (>60 ml/min/1.73 sqM); Albumin 3.6 g/dL (3.5-5.0); Alkaline Phosphatase 138 U/L (38-126); Anion Gap 6 mmol/L; Blood Urea Nitrogen 14 mg/dL (7-17); Calcium 8.7 mg/dL (8.4-10.2); Carbon Dioxide 25 mmol/L (22-30); Chloride 108 mmol/L (98-107); Glucose 151 mg/dL (74-99); Magnesium 1.9 mg/dL (1.6-2.3); Non-African American GFR(CKD) >90 (>60 ml/min/1.73 sqM); Potassium 3.9 mmol/L (3.5-5.1); Sodium 139 mmol/L (137-145); Total Bilirubin 0.6 mg/dL (0.2-1.3); Total Protein 6.2 g/dL (6.3-8.2)
--- NOTE | 2023-09-27 05:15 | XR ---
EXAM: XR Chest, 2 Views CLINICAL HISTORY: ITS.REASON XR Reason: Chest Pain TECHNIQUE: Frontal and lateral views of the chest. COMPARISON: No relevant prior studies available. FINDINGS: Lungs: Unremarkable. No consolidation. Pleural space: Unremarkable. No pneumothorax. Heart: Unremarkable. No cardiomegaly. Mediastinum: Unremarkable. Normal mediastinal contour. Bones/joints: Unremarkable. No acute fracture. IMPRESSION: Normal chest x-rays.
--- NOTE | 2023-09-27 05:42 | CT ---
EXAM: CT Angiography Chest With Intravenous Contrast CLINICAL HISTORY: ITS.REASON CT Reason: chest pain, possible PE TECHNIQUE: Axial computed tomographic angiography images of the chest with intravenous contrast. CTDI is 66.48 mGy and DLP is 1133.4 mGy-cm. This CT exam was performed using one or more of the following dose reduction techniques: automated exposure control, adjustment of the mA and/or kV according to patient size, and/or use of iterative reconstruction technique. MIP reconstructed images were created and reviewed. COMPARISON: 12/30/2022 FINDINGS: Pulmonary arteries: Unremarkable. No pulmonary embolism. Aorta: No acute findings. No thoracic aortic aneurysm. Lungs: Unremarkable. No mass. No consolidation. Pleural space: Unremarkable. No significant effusion. No pneumothorax. Heart: Unremarkable. No cardiomegaly. No significant pericardial effusion. No evidence of RV dysfunction. Bones/joints: No acute fracture. No dislocation. Soft tissues: Hepatic steatosis. Status post cholecystectomy. Epidural pain pump in place. Lymph nodes: Unremarkable. No enlarged lymph nodes. IMPRESSION: No acute pulmonary embolism.
--- NOTE | 2023-09-27 05:48 | ED ---
Chest Pain [facility] - General Chief Complaint: Chest Pain Stated Complaint: chest pain Time Seen by Provider: 09/27/23 02:14 Source: patient Mode of arrival: ambulatory Limitations: no limitations - History of Present Illness MD Complaint: chest pain -: hour(s) Onset: during rest Pain Location: substernal, left chest Pain Radiation: LUE Severity: moderate Quality: aching, sharp Consistency: constant Improves With: nothing Worsens With: inspiration Treatments Prior to Arrival: none - Related Data Home Medications Medication Instructions Recorded Confirmed Pravastatin Sodium [Pravachol] 20 mg PO HS 01/20/18 01/02/21 LORazepam [Ativan] 1 mg PO HS PRN 11/24/18 01/02/21 buPROPion HCL [Wellbutrin XL] 300 mg PO DAILY 12/15/19 01/02/21 traZODone HCL 50 mg PO HS 12/15/19 01/02/21 ARIPiprazole 20 mg PO HS 01/09/20 01/02/21 ARIPiprazole [Abilify] 5 mg PO DAILY 01/09/20 01/02/21 Topiramate 50 mg PO HS 01/09/20 01/02/21 busPIRone HCL 15 mg PO TID 01/09/20 01/02/21 Amitriptyline HCl [Elavil] 75 mg PO BID 01/24/20 01/02/21 Verapamil HCl [Verapamil ER] 180 mg PO HS 01/24/20 01/02/21 Gabapentin 600 mg PO TID 02/20/20 01/02/21 OXcarbazepine [Oxtellar Xr] 150 mg PO HS 02/27/20 01/02/21 hydroCHLOROthiazide 25 mg PO DAILY 03/15/20 01/02/21 metFORMIN HCL 500 mg PO DAILY 07/25/20 01/02/21 SUMAtriptan succinate [Imitrex] 50 mg PO DAILY PRN 12/26/20 01/02/21 Prochlorperazine [Compazine] 10 mg PO Q8H PRN 01/02/21 01/02/21 Previous Rx's Medication Instructions Recorded Lidocaine 5% Patch [Lidoderm] 1 patch TOPICAL DAILY #5 patch 12/27/20 valACYclovir HCL [Valtrex] 1,000 mg PO Q8HR #21 tab 12/27/20 Dicyclomine [Bentyl] 20 mg PO TID PRN #20 tablet 01/01/21 Famotidine [Pepcid] 20 mg PO BID #30 tablet 01/01/21 Albuterol Sulfate [Albuterol 1 puff PO Q4-6H PRN #8.5 gm 02/16/23 Sulfate Hfa] Azithromycin [Zithromax] 250 mg PO DIRECTED #6 tab 02/16/23 Ipratropium-Albuterol Nebulize 3 ml INHALATION Q4-6H PRN #90 ml 02/16/23 [Duoneb 0.5 mg-3 mg/3 ml Soln] predniSONE 50 mg PO DAILY 5 Days #5 tab 02/16/23 Erythromycin Ophth Oint [Romycin 1 applic RIGHT EYE Q8HR 5 Days #1 05/12/23 Ophth Oint] each Ondansetron Odt [Zofran Odt] 4 mg PO Q8HR PRN #15 tab 08/01/23 methocarbamoL [Robaxin-750] 1,500 mg PO TID PRN #30 tab 08/01/23 Ondansetron Odt [Zofran Odt] 4 mg PO Q8HR PRN #20 tab 10/03/23 Amoxicillin 875 mg PO Q12HR 7 Days #14 tablet 10/11/23 Allergies Allergy/AdvReac Type Severity Reaction Status Date / Time aspirin AdvReac Unknown Verified 10/13/23 19:52 ketorolac [From Toradol] AdvReac Unknown Verified 10/13/23 19:52 NSAIDS (Non-Steroidal AdvReac Pt. states Verified 10/13/23 19:52 Anti-Inflamma NSAIDS have given her a GI bleed in the past. Review of Systems ROS Statement: Those systems with pertinent positive or pertinent negative responses have been documented in the HPI. ROS Other: All systems not noted in ROS Statement are negative. Constitutional: Denies: fever, chills Respiratory: Denies: cough, dyspnea, hemoptysis Cardiovascular: Reports: chest pain. Denies: palpitations, edema, syncope Gastrointestinal: Denies: abdominal pain, nausea, vomiting, diarrhea Genitourinary: Denies: dysuria, hematuria Musculoskeletal: Denies: back pain Skin: Denies: rash Neurological: Denies: headache, weakness EKG Findings - EKG Results: EKG: interpreted by ERMD, sinus rhythm, normal axis, normal QRS EKG shows: tachycardia (Rate 101 bpm) - Blocks, [place], Hypertrophy, ST Abn: Repolarization changes or abnormalities: nonspecific abnormality, ST segment, and/or T wave Past Medical History Past Medical History: Diabetes Mellitus, Fibromyalgia, GERD/Reflux, GI Bleed, Hyperlipidemia, Hypertension Additional Past Medical History / Comment(s): gallstones, kidney stones, IBS, migraines, tachycardia, Martine- Guevara tear, blood clot, pesudo tumor cerebrea History of Any Multi-Drug Resistant Organisms: None Reported Past Surgical History: Section, Cholecystectomy, Tubal Ligation Additional Past Surgical History / Comment(s): neck biopsy (lymph node ) d&c; LP shunt May 13 2019 feb 0211/2019 -revision, stent/ lithotripsy on left, cystoscopy, shunt revises july 28. Past Anesthesia/Blood Transfusion Reactions: No Reported Reaction Past Psychological History: Anxiety, Bipolar, Depression, PTSD Smoking Status: Vaper Past Alcohol Use History: Rare Past Drug Use History: Marijuana - Past Family History Mother Family Medical History: Diabetes Mellitus, Hyperlipidemia, Hypertension, Myocardial Infarction ([place]) Additional Family Medical History / Comment(s): [place] X 3 Father Family Medical History: Congestive Heart Failure (CHF), Hyperlipidemia, Hypertension, Myocardial Infarction ([place]) Additional Family Medical History / Comment(s): mi x 3 Son(s) Family Medical History: No Reported History General Exam Limitations: no limitations General appearance: alert, in no apparent distress Head exam: Present: atraumatic, normocephalic Eye exam: Present: normal appearance. Absent: scleral icterus, conjunctival injection Neck exam: Present: normal inspection, full ROM Respiratory exam: Present: normal lung sounds bilaterally. Absent: respiratory distress, wheezes, rales, rhonchi, stridor, accessory muscle use Cardiovascular Exam: Present: regular rate, normal rhythm, normal heart sounds. Absent: systolic murmur, diastolic murmur, rubs, gallop GI/Abdominal exam: Present: soft. Absent: distended, tenderness, guarding, rebound, rigid, mass Extremities exam: Present: normal inspection, normal capillary refill. Absent: pedal edema, calf tenderness Back exam: Present: normal inspection. Absent: CVA tenderness (R), CVA tenderness (L) Neurological exam: Present: alert Skin exam: Present: warm, dry, intact, normal color. Absent: rash Course Vital Signs 09/27/23 09/27/23 09/27/23 02:03 02:50 04:06 Temperature 98.7 F Pulse Rate 89 89 65 Respiratory 18 16 18 Rate Blood Pressure 140/71 105/68 126/72 O2 Sat by Pulse 97 98 96 Oximetry 09/27/23 09/27/23 05:06 06:14 Temperature 98.6 F Pulse Rate 60 69 Respiratory 18 22 Rate Blood Pressure 114/63 110/68 O2 Sat by Pulse 95 99 Oximetry Chest Pain MDM - MDM The patient had chest x-ray that I interpreted as negative for acute infiltrate, pneumothorax, congestive heart failure The patient had CT angiogram which I interpreted as negative for acute pulmonary embolism. Was pt. sent in by a medical professional or institution (, ZA, BUS WASHER, urgent care, hospital, or long-term...) When possible be specific @ -[No] Did you speak to anyone other than the patient for history (EMS, parent, family, police, friend...)? What history was obtained from this source @ -[No] Did you review nursing and triage notes (agree or disagree)? Why? @ -[I reviewed and agree with nursing and triage notes] Were old charts reviewed (outside hosp., previous admission, EMS record, old EKG, old radiological studies, urgent care reports/EKG's, long-term records)? Report findings @ -[No old charts were reviewed] Differential Diagnosis (chest pain, altered mental status, abdominal pain women, abdominal pain men, vaginal bleeding, weakness, fever, dyspnea, syncope, headache, dizziness, GI bleed, back pain, seizure, CVA, palpatations, mental health, musculoskeletal)? @ -[Differential Chest Pain: Stable Angina, Unstable Angina, STEMI, NSTEMI Aortic Dissection, Pneumothorax, Musculoskeletal, Esophageal Spasm GERD, Cholecystitis, Pancreatitis, Zoster, this is not meant to be an all-inclusive list. EKG interpreted by me (3pts min.). @ -[I interpreted as above] X-rays interpreted by me (1pt min.). @ -[I interpreted as above CT interpreted by me (1pt min.). @ -I interpreted as above U/S interpreted by me (1pt. min.). @ -[None done] What testing was considered but not performed or refused? (CT, X-rays, U/S, labs)? Why? @ -[None] What meds were considered but not given or refused? Why? @ -[None] Did you discuss the management of the patient with other professionals (professionals i.e. , PA, BUS WASHER, lab, RT, psych nurse, neonatal social worker, senior mainframe programmer analyst, teacher, commercial account officer, nurse case manager)? Give summary @ -[No] Was smoking cessation discussed for >3mins.? @ -[No] Was critical care preformed (if so, how long)? @ -[No] Were there social determinants of health that impacted care today? How? (Homelessness, low income, unemployed, alcoholism, drug addiction, transportation, low edu. Level, literacy, decrease access to med. care, fdc, rehab)? @ -[No] Was there de-escalation of care discussed even if they declined (Discuss DNR or withdrawal of care, Hospice)? DNR status @ -[No] What co-morbidities impacted this encounter? (DM, HTN, Smoking, COPD, CAD, Cancer, CVA, ARF, Chemo, Hep., AIDS, mental health diagnosis, sleep apnea, morbid obesity)? @ -[None] Was patient admitted / discharged? Hospital course, mention meds given and route, prescriptions, significant lab abnormalities, going to OR and other pertinent info. @ -[hospital course] Undiagnosed new problem with uncertain prognosis? @ -[No] Drug Therapy requiring intensive monitoring for toxicity (Heparin, Nitro, Insulin, Cardizem)? @ -[No] Were any procedures done? @ -[No] Diagnosis/symptom? @ -[Chest pain Acute, or Chronic, or Acute on Chronic? @ -[Acute Uncomplicated (without systemic symptoms) or Complicated (systemic symptoms)? @ -[Uncomplicated Side effects of treatment? @ -[No] Exacerbation, Progression, or Severe Exacerbation? @ -[No] Poses a threat to life or bodily function? How? (Chest pain, [place], [place], pneumonia, PE, COPD, DKA, ARF, appy, cholecystitis, CVA, Diverticulitis, Homicidal, Suicidal, threat to staff... and all critical care pts) @ -[No] Disposition Clinical Impression: Chest pain Disposition: HOME SELF-CARE Condition: Good Instructions (If sedation given, give patient instructions): Chest Pain (ED) Is patient prescribed a controlled substance at d/c from ED?: No Referrals: None,Stated [Primary Care Provider] - 1-2 days
[2023-09-27 06:49] VITALS: BP 110/68; PULSE 69; RESP 22; TEMP 98.6
== END 2023-09-27 06:14 | disposition home or self-care (01) ==
LOC: EC 01:59
DX: R07.89 Other chest pain (principal); R00.0 Tachycardia, unspecified; F17.290 Nicotine dependence, other tobacco product, uncomplicated; F12.90 Cannabis use, unspecified, uncomplicated; Z88.1 Allergy status to other antibiotic agents; Z88.8 Allergy status to other drugs, medicaments and biological substances
CPT/HCPCS: 36415; 93005; 85379; 80053; 83735; 84484; 85025; 85610; 85730; 71046; 71275; 99285; Q9967

== ENCOUNTER 2023-10-02 23:28 | Emergency (ER) | payer OTHER ==
[2023-10-02 23:42] VITALS: RESP 18
--- NOTE | 2023-10-03 01:20 | ED ---
Nausea/Vomiting/Diarrhea HPI - General Chief complaint: Nausea/Vomiting/Diarrhea Stated complaint: cough NVD Time Seen by Provider: 10/03/23 00:45 Source: patient Mode of arrival: ambulatory Limitations: no limitations - History of Present Illness Initial comments: 54-year-old female presenting with chief complaint of cough. Symptoms started today. She admits to nausea with no vomiting. Her children have been sick with similar symptoms. She is requesting a COVID test. Admits to congestion and chills. No chest pain, difficulty breathing, abdominal pain, fever, dizziness. - Related Data Home Medications Medication Instructions Recorded Confirmed Pravastatin Sodium [Pravachol] 20 mg PO HS 01/20/18 01/02/21 LORazepam [Ativan] 1 mg PO HS PRN 11/24/18 01/02/21 buPROPion HCL [Wellbutrin XL] 300 mg PO DAILY 12/15/19 01/02/21 traZODone HCL 50 mg PO HS 12/15/19 01/02/21 ARIPiprazole 20 mg PO HS 01/09/20 01/02/21 ARIPiprazole [Abilify] 5 mg PO DAILY 01/09/20 01/02/21 Topiramate 50 mg PO HS 01/09/20 01/02/21 busPIRone HCL 15 mg PO TID 01/09/20 01/02/21 Amitriptyline HCl [Elavil] 75 mg PO BID 01/24/20 01/02/21 Verapamil HCl [Verapamil ER] 180 mg PO HS 01/24/20 01/02/21 Gabapentin 600 mg PO TID 02/20/20 01/02/21 OXcarbazepine [Oxtellar Xr] 150 mg PO HS 02/27/20 01/02/21 hydroCHLOROthiazide 25 mg PO DAILY 03/15/20 01/02/21 metFORMIN HCL 500 mg PO DAILY 07/25/20 01/02/21 SUMAtriptan succinate [Imitrex] 50 mg PO DAILY PRN 12/26/20 01/02/21 Prochlorperazine [Compazine] 10 mg PO Q8H PRN 01/02/21 01/02/21 Previous Rx's Medication Instructions Recorded Lidocaine 5% Patch [Lidoderm] 1 patch TOPICAL DAILY #5 patch 12/27/20 valACYclovir HCL [Valtrex] 1,000 mg PO Q8HR #21 tab 12/27/20 Dicyclomine [Bentyl] 20 mg PO TID PRN #20 tablet 01/01/21 Famotidine [Pepcid] 20 mg PO BID #30 tablet 01/01/21 Albuterol Sulfate [Albuterol 1 puff PO Q4-6H PRN #8.5 gm 02/16/23 Sulfate Hfa] Azithromycin [Zithromax] 250 mg PO DIRECTED #6 tab 02/16/23 Ipratropium-Albuterol Nebulize 3 ml INHALATION Q4-6H PRN #90 ml 02/16/23 [Duoneb 0.5 mg-3 mg/3 ml Soln] predniSONE 50 mg PO DAILY 5 Days #5 tab 02/16/23 Erythromycin Ophth Oint [Romycin 1 applic RIGHT EYE Q8HR 5 Days #1 05/12/23 Ophth Oint] each Ondansetron Odt [Zofran Odt] 4 mg PO Q8HR PRN #15 tab 08/01/23 methocarbamoL [Robaxin-750] 1,500 mg PO TID PRN #30 tab 08/01/23 Ondansetron Odt [Zofran Odt] 4 mg PO Q8HR PRN #20 tab 10/03/23 Allergies Allergy/AdvReac Type Severity Reaction Status Date / Time aspirin AdvReac Unknown Verified 10/02/23 23:40 ketorolac [From Toradol] AdvReac Unknown Verified 10/02/23 23:40 NSAIDS (Non-Steroidal AdvReac Pt. states Verified 10/02/23 23:40 Anti-Inflamma NSAIDS have given her a GI bleed in the past. Review of Systems ROS Statement: Those systems with pertinent positive or pertinent negative responses have been documented in the HPI. ROS Other: All systems not noted in ROS Statement are negative. Past Medical History Past Medical History: Diabetes Mellitus, Fibromyalgia, GERD/Reflux, GI Bleed, Hyperlipidemia, Hypertension Additional Past Medical History / Comment(s): gallstones, kidney stones, IBS, migraines, tachycardia, Martine- Guevara tear, blood clot, pesudo tumor cerebrea History of Any Multi-Drug Resistant Organisms: None Reported Past Surgical History: Section, Cholecystectomy, Tubal Ligation Additional Past Surgical History / Comment(s): neck biopsy (lymph node ) d&c; LP shunt May 13 2019 feb 0211/2019 -revision, stent/ lithotripsy on left, cystoscopy, shunt revises july 28. Past Anesthesia/Blood Transfusion Reactions: No Reported Reaction Past Psychological History: Anxiety, Bipolar, Depression, PTSD Smoking Status: Vaper Past Alcohol Use History: Rare Past Drug Use History: Marijuana - Past Family History Mother Family Medical History: Diabetes Mellitus, Hyperlipidemia, Hypertension, Myocardial Infarction ([place]) Additional Family Medical History / Comment(s): [place] X 3 Father Family Medical History: Congestive Heart Failure (CHF), Hyperlipidemia, Hypertension, Myocardial Infarction ([place]) Additional Family Medical History / Comment(s): mi x 3 Son(s) Family Medical History: No Reported History General Exam Limitations: no limitations General appearance: alert, in no apparent distress Head exam: Present: atraumatic, normocephalic Eye exam: Present: normal appearance, EOMI ENT exam: Present: normal oropharynx, mucous membranes moist Neck exam: Present: normal inspection. Absent: meningismus Respiratory exam: Present: normal lung sounds bilaterally. Absent: respiratory distress, wheezes, rales, rhonchi, stridor Cardiovascular Exam: Present: regular rate, normal rhythm, normal heart sounds. Absent: systolic murmur, diastolic murmur, rubs, gallop, clicks Neurological exam: Present: alert, oriented X3 Psychiatric exam: Present: normal affect, normal mood Skin exam: Present: normal color Course Vital Signs 10/02/23 10/03/23 23:39 01:28 Temperature 98.1 F 98.4 F Pulse Rate 82 90 Respiratory 18 Rate Blood Pressure 152/82 146/97 O2 Sat by Pulse 96 98 Oximetry Medical Decision Making - Medical Decision Making Was pt. sent in by a medical professional or institution (, PA, MICA INSPECTOR, urgent care, hospital, or long term...) When possible be specific @ -[No] Did you speak to anyone other than the patient for history (EMS, parent, family, police, friend...)? What history was obtained from this source @ -[No] Did you review nursing and triage notes (agree or disagree)? Why? @ -[I reviewed and agree with nursing and triage notes] Were old charts reviewed (outside hosp., previous admission, EMS record, old EKG, old radiological studies, urgent care reports/EKG's, long term records)? Report findings @ -[No old charts were reviewed] Differential Diagnosis (chest pain, altered mental status, abdominal pain women, abdominal pain men, vaginal bleeding, weakness, fever, dyspnea, syncope, headache, dizziness, GI bleed, back pain, seizure, CVA, palpatations, mental health, musculoskeletal)? @ -Differential includes influenza, RSV, COVID, gastroenteritis, pneumonia, this is not an all-inclusive list EKG interpreted by me (3pts min.). @ -[As above] X-rays interpreted by me (1pt min.). @ -[None done] CT interpreted by me (1pt min.). @ -[None done] U/S interpreted by me (1pt. min.). @ -[None done] What testing was considered but not performed or refused? (CT, X-rays, U/S, labs)? Why? @ -[None] What meds were considered but not given or refused? Why? @ -[None] Did you discuss the management of the patient with other professionals (professionals i.e. , PA, MICA INSPECTOR, lab, RT, psych nurse, delinquency prevention social worker, microphone operator, teacher, community services officer, rehabilitation caseworker)? Give summary @ -[No] Was smoking cessation discussed for >3mins.? @ -[No] Was critical care preformed (if so, how long)? @ -[No] Were there social determinants of health that impacted care today? How? (Homelessness, low income, unemployed, alcoholism, drug addiction, transportation, low edu. Level, literacy, decrease access to med. care, long-term, rehab)? @ -[No] Was there de-escalation of care discussed even if they declined (Discuss DNR or withdrawal of care, Hospice)? DNR status @ -[No] What co-morbidities impacted this encounter? (DM, HTN, Smoking, COPD, CAD, Cancer, CVA, ARF, Chemo, Hep., AIDS, mental health diagnosis, sleep apnea, morbid obesity)? @ -[None] Was patient admitted / discharged? Hospital course, mention meds given and route, prescriptions, significant lab abnormalities, going to OR and other pertinent info. @ -33-year-old female presenting with chief complaint of cough and nausea. She is negative for influenza, RSV, and COVID. Educated on supportive management and discharged home. Follow-up with PCP. Report back to ER with any new or worsening symptoms. Discussed return parameters and answered all questions. Patient conveyed verbal understanding and agreed to the plan. I discussed this case in detail with my attending Dr. Bruner Undiagnosed new problem with uncertain prognosis? @ -[No] Drug Therapy requiring intensive monitoring for toxicity (Heparin, Nitro, In sulin, Cardizem)? @ -[No] Were any procedures done? @ -[No] Diagnosis/symptom? @ -Viral infection Acute, or Chronic, or Acute on Chronic? @ -Acute Uncomplicated (without systemic symptoms) or Complicated (systemic symptoms)? @ -Uncomplicated Side effects of treatment? @ -[No] Exacerbation, Progression, or Severe Exacerbation? @ -[No] Poses a threat to life or bodily function? How? (Chest pain, [place], [place], pneumonia, PE, COPD, DKA, ARF, appy, cholecystitis, CVA, Diverticulitis, Homicidal, Suicidal, threat to staff... and all critical care pts) @ -Unlikely - Lab Data Lab Results 10/02/23 Range/Units 23:40 Influenza Type A (PCR) Not Detected (Not Detectd) Influenza Type B (PCR) Not Detected (Not Detectd) RSV (PCR) Not Detected (Not Detectd) SARS-CoV-2 (PCR) Not Detected (Not Detectd) Disposition Clinical Impression: Viral syndrome Disposition: HOME SELF-CARE Condition: Good Instructions (If sedation given, give patient instructions): Viral Syndrome (ED) Additional Instructions: Follow-up with PCP. Report back to ER with any new or worsening symptoms. Prescriptions: Ondansetron Odt [Zofran Odt] 4 mg PO Q8HR PRN #20 tab PRN Reason: Nausea Is patient prescribed a controlled substance at d/c from ED?: No Referrals: None,Stated [Primary Care Provider] - 1-2 days Time of Disposition: 01:19
[2023-10-03 01:29] VITALS: BP 146/97; PULSE 90; TEMP 98.4
== END 2023-10-03 01:37 | disposition home or self-care (01) ==
LOC: EC 23:28
DX: B34.9 Viral infection, unspecified (principal); F17.290 Nicotine dependence, other tobacco product, uncomplicated; Z88.6 Allergy status to analgesic agent; Z88.8 Allergy status to other drugs, medicaments and biological substances; Z90.49 Acquired absence of other specified parts of digestive tract
CPT/HCPCS: 87636; 99283; 99284

== ENCOUNTER 2023-10-11 19:24 | Emergency (ER) | payer OTHER ==
[2023-10-11 20:44] VITALS: RESP 18
--- NOTE | 2023-10-11 22:04 | ED ---
ENT HPI - General Chief complaint: ENT Stated complaint: loss of hearing in left ear/ migraine Time Seen by Provider: 10/11/23 22:03 Source: patient, RN notes reviewed Mode of arrival: ambulatory Limitations: no limitations - History of Present Illness Initial comments: 33-year-old female presenting with left ear pain x 1 day with decreased hearing. States she has chronic allergies. Denies fever, chills, lightheadedness. - Related Data Home Medications Medication Instructions Recorded Confirmed Pravastatin Sodium [Pravachol] 20 mg PO HS 01/20/18 01/02/21 LORazepam [Ativan] 1 mg PO HS PRN 11/24/18 01/02/21 buPROPion HCL [Wellbutrin XL] 300 mg PO DAILY 12/15/19 01/02/21 traZODone HCL 50 mg PO HS 12/15/19 01/02/21 ARIPiprazole 20 mg PO HS 01/09/20 01/02/21 ARIPiprazole [Abilify] 5 mg PO DAILY 01/09/20 01/02/21 Topiramate 50 mg PO HS 01/09/20 01/02/21 busPIRone HCL 15 mg PO TID 01/09/20 01/02/21 Amitriptyline HCl [Elavil] 75 mg PO BID 01/24/20 01/02/21 Verapamil HCl [Verapamil ER] 180 mg PO HS 01/24/20 01/02/21 Gabapentin 600 mg PO TID 02/20/20 01/02/21 OXcarbazepine [Oxtellar Xr] 150 mg PO HS 02/27/20 01/02/21 hydroCHLOROthiazide 25 mg PO DAILY 03/15/20 01/02/21 metFORMIN HCL 500 mg PO DAILY 07/25/20 01/02/21 SUMAtriptan succinate [Imitrex] 50 mg PO DAILY PRN 12/26/20 01/02/21 Prochlorperazine [Compazine] 10 mg PO Q8H PRN 01/02/21 01/02/21 Previous Rx's Medication Instructions Recorded Lidocaine 5% Patch [Lidoderm] 1 patch TOPICAL DAILY #5 patch 12/27/20 valACYclovir HCL [Valtrex] 1,000 mg PO Q8HR #21 tab 12/27/20 Dicyclomine [Bentyl] 20 mg PO TID PRN #20 tablet 01/01/21 Famotidine [Pepcid] 20 mg PO BID #30 tablet 01/01/21 Albuterol Sulfate [Albuterol 1 puff PO Q4-6H PRN #8.5 gm 02/16/23 Sulfate Hfa] Azithromycin [Zithromax] 250 mg PO DIRECTED #6 tab 02/16/23 Ipratropium-Albuterol Nebulize 3 ml INHALATION Q4-6H PRN #90 ml 02/16/23 [Duoneb 0.5 mg-3 mg/3 ml Soln] predniSONE 50 mg PO DAILY 5 Days #5 tab 02/16/23 Erythromycin Ophth Oint [Romycin 1 applic RIGHT EYE Q8HR 5 Days #1 05/12/23 Ophth Oint] each Ondansetron Odt [Zofran Odt] 4 mg PO Q8HR PRN #15 tab 08/01/23 methocarbamoL [Robaxin-750] 1,500 mg PO TID PRN #30 tab 08/01/23 Ondansetron Odt [Zofran Odt] 4 mg PO Q8HR PRN #20 tab 10/03/23 Amoxicillin 875 mg PO Q12HR 7 Days #14 tablet 10/11/23 Allergies Allergy/AdvReac Type Severity Reaction Status Date / Time aspirin AdvReac Unknown Verified 10/11/23 20:41 ketorolac [From Toradol] AdvReac Unknown Verified 10/11/23 20:41 NSAIDS (Non-Steroidal AdvReac Pt. states Verified 10/11/23 20:41 Anti-Inflamma NSAIDS have given her a GI bleed in the past. Review of Systems ROS Statement: Those systems with pertinent positive or pertinent negative responses have been documented in the HPI. ROS Other: All systems not noted in ROS Statement are negative. Past Medical History Past Medical History: Diabetes Mellitus, Fibromyalgia, GERD/Reflux, GI Bleed, Hyperlipidemia, Hypertension Additional Past Medical History / Comment(s): gallstones, kidney stones, IBS, migraines, tachycardia, Martine- Guevara tear, blood clot, pesudo tumor cerebrea History of Any Multi-Drug Resistant Organisms: None Reported Past Surgical History: Section, Cholecystectomy, Tubal Ligation Additional Past Surgical History / Comment(s): neck biopsy (lymph node ) d&c; LP shunt May 13 2019 feb 0211/2019 -revision, stent/ lithotripsy on left, cystoscopy, shunt revises july 28. Past Anesthesia/Blood Transfusion Reactions: No Reported Reaction Past Psychological History: Anxiety, Bipolar, Depression, PTSD Smoking Status: Vaper Past Alcohol Use History: Rare Past Drug Use History: Marijuana - Past Family History Mother Family Medical History: Diabetes Mellitus, Hyperlipidemia, Hypertension, Myocardial Infarction ([place]) Additional Family Medical History / Comment(s): [place] X 3 Father Family Medical History: Congestive Heart Failure (CHF), Hyperlipidemia, Hypertension, Myocardial Infarction ([place]) Additional Family Medical History / Comment(s): [place] x 3 Son(s) Family Medical History: No Reported History General Exam Limitations: no limitations General appearance: alert, in no apparent distress Head exam: Present: atraumatic, normocephalic, normal inspection Eye exam: Present: normal appearance, PERRL, EOMI. Absent: scleral icterus, conjunctival injection, periorbital swelling ENT exam: Present: normal exam, mucous membranes moist, TM's normal bilaterally (Left TM erythematous and bulging. Right TM normal. No mastoid erythema or tenderness bilaterally) Neck exam: Present: normal inspection. Absent: tenderness, meningismus, lymphadenopathy Respiratory exam: Present: normal lung sounds bilaterally. Absent: respiratory distress, wheezes, rales, rhonchi, stridor Cardiovascular Exam: Present: regular rate, normal rhythm, normal heart sounds. Absent: systolic murmur, diastolic murmur, rubs, gallop, clicks Neurological exam: Present: alert, oriented X3, CN II-XII intact Psychiatric exam: Present: normal affect, normal mood Skin exam: Present: warm, dry, intact, normal color. Absent: rash Course Vital Signs 10/11/23 20:41 Temperature 99.0 F Pulse Rate 96 Respiratory 18 Rate Blood Pressure 146/84 O2 Sat by Pulse 97 Oximetry Medical Decision Making - Medical Decision Making Was pt. sent in by a medical professional or institution (, PA, TALENT ACQUISITION CONSULTANT, urgent care, hospital, or skilled nursing...) When possible be specific @ -No Did you speak to anyone other than the patient for history (EMS, parent, family, police, friend...)? What history was obtained from this source @ -No Did you review nursing and triage notes (agree or disagree)? Why? @ -I reviewed and agree with nursing and triage notes Were old charts reviewed (outside hosp., previous admission, EMS record, old EKG, old radiological studies, urgent care reports/EKG's, skilled nursing records)? Report findings @ -No old charts were reviewed Differential Diagnosis (chest pain, altered mental status, abdominal pain women, abdominal pain men, vaginal bleeding, weakness, fever, dyspnea, syncope, headache, dizziness, GI bleed, back pain, seizure, CVA, palpatations, mental health, musculoskeletal)? @ -Otitis media, otitis externa, viral URI, mastoiditis, foreign body in ear EKG interpreted by me (3pts min.). @ -None X-rays interpreted by me (1pt min.). @ -None done CT interpreted by me (1pt min.). @ -None done U/S interpreted by me (1pt. min.). @ -None done What testing was considered but not performed or refused? (CT, X-rays, U/S, la bs)? Why? @ -None What meds were considered but not given or refused? Why? @ -None Did you discuss the management of the patient with other professionals (professionals i.e. , PA, TALENT ACQUISITION CONSULTANT, lab, RT, psych nurse, director social service, resourcing consultant, teacher, sustainability officer, senior case manager)? Give summary @ -No Was smoking cessation discussed for >3mins.? @ -No Was critical care preformed (if so, how long)? @ -No Were there social determinants of health that impacted care today? How? (Homelessness, low income, unemployed, alcoholism, drug addiction, transportation, low edu. Level, literacy, decrease access to med. care, fci, rehab)? @ -No Was there de-escalation of care discussed even if they declined (Discuss DNR or withdrawal of care, Hospice)? DNR status @ -No What co-morbidities impacted this encounter? (DM, HTN, Smoking, COPD, CAD, Cancer, CVA, ARF, Chemo, Hep., AIDS, mental health diagnosis, sleep apnea, morbid obesity)? @ -None Was patient admitted / discharged? Hospital course, mention meds given and route, prescriptions, significant lab abnormalities, going to OR and other pertinent info. @ -Patient was discharged. Patient was seen and evaluated for left ear pain x 1 day. Patient is afebrile. Left TM is erythematous and bulging. No signs of mastoiditis. First dose of high-dose amoxicillin given in ER. Prescribed high- dose amoxicillin twice daily for 7 days. Advised cool compresses to the ear for symptom relief. Supportive care discussed. Strict return/alarm symptoms discussed with patient in detail and she shows understanding and agrees to plan. Case discussed with my attending Dr. Byrne. Patient discharged in stable condition. Undiagnosed new problem with uncertain prognosis? @ -No Drug Therapy requiring intensive monitoring for toxicity (Heparin, Nitro, Insulin, Cardizem)? @ -No Were any procedures done? @ -No Diagnosis/symptom? @ -Left otitis media Acute, or Chronic, or Acute on Chronic? @ -Acute Uncomplicated (without systemic symptoms) or Complicated (systemic symptoms)? @ -Uncomplicated Side effects of treatment? @ -No Exacerbation, Progression, or Severe Exacerbation? @ -No Poses a threat to life or bodily function? How? (Chest pain, [place], [place], pneumonia, PE, COPD, DKA, ARF, appy, cholecystitis, CVA, Diverticulitis, Homicidal, Suicidal, threat to staff... and all critical care pts) @ -Low likelihood Disposition Clinical Impression: Left acute otitis media Disposition: HOME SELF-CARE Condition: Stable Instructions (If sedation given, give patient instructions): Ear Infection (ED) Additional Instructions: Please take full course of amoxicillin. Please return to the Emergency Department if symptoms worsen or any other concerns. Prescriptions: Amoxicillin 875 mg PO Q12HR 7 Days #14 tablet Is patient prescribed a controlled substance at d/c from ED?: No Referrals: None,Stated [Primary Care Provider] - 1-2 days Time of Disposition: 22:04
[2023-10-11] MEDS: AMOXICILLIN 875 MG TAB PO STA (22:22)
[2023-10-11 22:31] VITALS: BP 142/80; PULSE 92; TEMP 99.1
== END 2023-10-11 22:29 | disposition home or self-care (01) ==
LOC: EC 19:24
DX: H66.92 Otitis media, unspecified, left ear (principal); F17.290 Nicotine dependence, other tobacco product, uncomplicated; F12.90 Cannabis use, unspecified, uncomplicated; Z88.6 Allergy status to analgesic agent; Z88.8 Allergy status to other drugs, medicaments and biological substances
CPT/HCPCS: 99282

== ENCOUNTER 2023-10-13 19:45 | Observation (INO) | payer OTHER ==
--- NOTE | 2023-10-13 20:05 | ED ---
General Adult HPI - General Source: patient, RN notes reviewed Mode of arrival: wheelchair Limitations: no limitations <Suraj Doll - Last Filed: 10/13/23 20:05> - General Source: patient, RN notes reviewed, old records reviewed <Fili Cox - Last Filed: 10/13/23 21:50> - General Chief complaint: Shortness of Breath Stated complaint: MITCHEL Time Seen by Provider: 10/13/23 20:00 - History of Present Illness Initial comments: Quick note 33-year-old female presenting to the ED with complaints of shortness of breath. Patient reports had some cough and congestion today. States that she was seen by [facility] urgent care and diagnosed with COVID. Since leaving there states that she started to develop shortness of breath chest pain. Associated fever. (Suraj Doll) Patient is a 33-year-old female who presents emergency department complaining of shortness of breath. Has been having a nonproductive cough for the last 1 to 2 days. Was diagnosed with pneumonia at [facility] urgent care or ER within the last 48 hours. Also diagnosed with COVID-19 at that time. Has been on amoxicillin for at least 72 hours for otitis media but is having worsening symptoms. Is febrile. Less of an appetite. Endorses some specific body aches as well as chest discomfort. Denies sore throat. States she feels unwell. Presents for further evaluation. Originally seen as a quick note. (Fili Cox) - Related Data Home Medications Medication Instructions Recorded Confirmed Pravastatin Sodium [Pravachol] 20 mg PO HS 01/20/18 01/02/21 LORazepam [Ativan] 1 mg PO HS PRN 11/24/18 01/02/21 buPROPion HCL [Wellbutrin XL] 300 mg PO DAILY 12/15/19 01/02/21 traZODone HCL 50 mg PO HS 12/15/19 01/02/21 ARIPiprazole 20 mg PO HS 01/09/20 01/02/21 ARIPiprazole [Abilify] 5 mg PO DAILY 01/09/20 01/02/21 Topiramate 50 mg PO HS 01/09/20 01/02/21 busPIRone HCL 15 mg PO TID 01/09/20 01/02/21 Amitriptyline HCl [Elavil] 75 mg PO BID 01/24/20 01/02/21 Verapamil HCl [Verapamil ER] 180 mg PO HS 01/24/20 01/02/21 Gabapentin 600 mg PO TID 02/20/20 01/02/21 OXcarbazepine [Oxtellar Xr] 150 mg PO HS 02/27/20 01/02/21 hydroCHLOROthiazide 25 mg PO DAILY 03/15/20 01/02/21 metFORMIN HCL 500 mg PO DAILY 07/25/20 01/02/21 SUMAtriptan succinate [Imitrex] 50 mg PO DAILY PRN 12/26/20 01/02/21 Prochlorperazine [Compazine] 10 mg PO Q8H PRN 01/02/21 01/02/21 Previous Rx's Medication Instructions Recorded Lidocaine 5% Patch [Lidoderm] 1 patch TOPICAL DAILY #5 patch 12/27/20 valACYclovir HCL [Valtrex] 1,000 mg PO Q8HR #21 tab 12/27/20 Dicyclomine [Bentyl] 20 mg PO TID PRN #20 tablet 01/01/21 Famotidine [Pepcid] 20 mg PO BID #30 tablet 01/01/21 Albuterol Sulfate [Albuterol 1 puff PO Q4-6H PRN #8.5 gm 02/16/23 Sulfate Hfa] Azithromycin [Zithromax] 250 mg PO DIRECTED #6 tab 02/16/23 Ipratropium-Albuterol Nebulize 3 ml INHALATION Q4-6H PRN #90 ml 02/16/23 [Duoneb 0.5 mg-3 mg/3 ml Soln] predniSONE 50 mg PO DAILY 5 Days #5 tab 02/16/23 Erythromycin Ophth Oint [Romycin 1 applic RIGHT EYE Q8HR 5 Days #1 05/12/23 Ophth Oint] each Ondansetron Odt [Zofran Odt] 4 mg PO Q8HR PRN #15 tab 08/01/23 methocarbamoL [Robaxin-750] 1,500 mg PO TID PRN #30 tab 08/01/23 Ondansetron Odt [Zofran Odt] 4 mg PO Q8HR PRN #20 tab 10/03/23 Amoxicillin 875 mg PO Q12HR 7 Days #14 tablet 10/11/23 Allergies Allergy/AdvReac Type Severity Reaction Status Date / Time aspirin AdvReac Unknown Verified 10/13/23 19:52 ketorolac [From Toradol] AdvReac Unknown Verified 10/13/23 19:52 NSAIDS (Non-Steroidal AdvReac Pt. states Verified 10/13/23 19:52 Anti-Inflamma NSAIDS have given her a GI bleed in the past. Review of Systems ROS Other: All systems not noted in ROS Statement are negative. <Suraj Doll - Last Filed: 10/13/23 20:05> ROS Other: All systems not noted in ROS Statement are negative. <Fili Cox - Last Filed: 10/13/23 21:50> ROS Statement: Those systems with pertinent positive or pertinent negative responses have been documented in the HPI. Review of Systems: CONST: Endorses fever EYES: Denies blurry vision ENT: Endorses nasal congestion C/V: Denies Chest pain RESP: Endorses shortness of breath GI: Denies abdominal pain : Denies dysuria SKIN: Denies rash. MSK: Denies joint pain. NEURO: Denies headache (Fili Cox) Past Medical History Past Medical History: Diabetes Mellitus, Fibromyalgia, GERD/Reflux, GI Bleed, Hyperlipidemia, Hypertension Additional Past Medical History / Comment(s): gallstones, kidney stones, IBS, migraines, tachycardia, Martine- Guevara tear, blood clot, pesudo tumor cerebrea History of Any Multi-Drug Resistant Organisms: None Reported Past Surgical History: Section, Cholecystectomy, Tubal Ligation Additional Past Surgical History / Comment(s): neck biopsy (lymph node ) d&c; LP shunt May 13 2019 feb 0211/2019 -revision, stent/ lithotripsy on left, cystoscopy, shunt revises july 28. Past Anesthesia/Blood Transfusion Reactions: No Reported Reaction Past Psychological History: Anxiety, Bipolar, Depression, PTSD Smoking Status: Vaper Past Alcohol Use History: Rare Past Drug Use History: Marijuana - Past Family History Mother Family Medical History: Diabetes Mellitus, Hyperlipidemia, Hypertension, Myocardial Infarction ([place]) Additional Family Medical History / Comment(s): [place] X 3 Father Family Medical History: Congestive Heart Failure (CHF), Hyperlipidemia, Hypertension, Myocardial Infarction ([place]) Additional Family Medical History / Comment(s): mi x 3 Son(s) Family Medical History: No Reported History <Suraj Doll - Last Filed: 10/13/23 20:05> General Exam Limitations: no limitations <Suraj Doll - Last Filed: 10/13/23 20:05> <Fili Cox - Last Filed: 10/13/23 21:50> - General Exam Comments Initial Comments: Visual Physical Exam Vital signs reviewed Head: Normocephalic, atraumatic Eyes: PERRLA, EOMI ENT: Airway patent Skin: No visual rash, normal skin tone Neuro: Alert and oriented 3 Musculoskeletal: No gross abnormalities (Suraj Doll) General: Appears dehydrated, ill. Febrile. HEAD: Normal with no signs of head trauma. EYES: PERRLA, EOMI, conjunctiva normal, no discharge. ENT: Hearing grossly intact, normal oropharynx. Mucous membranes. RESPIRATORY: Clear breath sounds bilaterally. No wheezes, rales, or rhonchi. Oxygen. No significant increased work of breathing. C/V: Regular rate and rhythm. S1 and S2 auscultated. Peripheral pulses 2+ intact throughout. ABD: Abd is soft, nontender, nondistended EXT: Normal range of motion, no obvious deformity SKIN: No rashes or lesions observed on exposed skin. NEURO: Alert and oriented x 4. (Fili Cox) Course Vital Signs 10/13/23 19:47 Temperature 101.6 F H Pulse Rate 113 H Respiratory 24 Rate Blood Pressure 138/89 O2 Sat by Pulse 99 Oximetry Medical Decision Making <Suraj Doll - Last Filed: 10/13/23 20:05> - Lab Data Result diagrams: 10/13/23 20:44 10/13/23 20:44 - EKG Data -: EKG Interpreted by Me <Fili Cox - Last Filed: 10/13/23 21:50> - Medical Decision Making Quicknote portion performed. Signed Suraj Doll PA-C (Suraj Doll) Was pt. sent in by a medical professional or institution ([facility], WET WASHER MACHINE, urgent care, hospital, or custodial...) When possible be specific @ -No Did you speak to anyone other than the patient for history (EMS, parent, family, police, friend...)? What history was obtained from this source @ -No Did you review nursing and triage notes (agree or disagree)? Why? @ -I reviewed and agree with nursing and triage notes Were old charts reviewed (outside hosp., previous admission, EMS record, old EKG, old radiological studies, urgent care reports/EKG's, custodial records)? Report findings @ -Reviewed paperwork from [facility] outpatient which showed COVID- positive as well as diagnosis of left-sided pneumonia. Patient was kept on amoxicillin which should cover for pneumonia. Differential Diagnosis (chest pain, altered mental status, abdominal pain women, abdominal pain men, vaginal bleeding, weakness, fever, dyspnea, syncope, headache, dizziness, GI bleed, back pain, seizure, CVA, palpatations, mental health, musculoskeletal)? @ -Differential Dyspnea: Coronary syndrome, arrhythmia, tamponade, asthma, COPD, pulmonary embolism, pneumonia, pneumothorax, pulmonary effusion, anaphylaxis, diabetic ketoacidosis, flailed chest, pulmonary contusion, diaphragmatic rupture, anemia, neuromuscular, this is not meant to be an all-inclusive list. EKG interpreted by me (3pts min.). @ -As above X-rays interpreted by me (1pt min.). @ -Chest x-ray shows left-sided pneumonia. CT interpreted by me (1pt min.). @ -None done U/S interpreted by me (1pt. min.). @ -None done What testing was considered but not performed or refused? (CT, X-rays, U/S, labs)? Why? @ -None What meds were considered but not given or refused? Why? @ -None Did you discuss the management of the patient with other professionals (professionals i.e. , PA, WET WASHER MACHINE, lab, RT, psych nurse, social media project manager, packaging supervisor, teacher, information assurance officer, catalytic case operator)? Give summary @ -Discussed with Dr. Workman who accepted the admission. Patient is admitted to [facility]. Was smoking cessation discussed for >3mins.? @ -No Was critical care preformed (if so, how long)? @ -Yes, 31 minutes. Were there social determinants of health that impacted care today? How? (Homelessness, low income, unemployed, alcoholism, drug addiction, transportation, low edu. Level, literacy, decrease access to med. care, half-way, rehab)? @ -No Was there de-escalation of care discussed even if they declined (Discuss DNR or withdrawal of care, Hospice)? DNR status @ -No What co-morbidities impacted this encounter? (DM, HTN, Smoking, COPD, CAD, Cancer, CVA, ARF, Chemo, Hep., AIDS, mental health diagnosis, sleep apnea, morbid obesity)? @ -Obesity Was patient admitted / discharged? Hospital course, mention meds given and route, prescriptions, significant lab abnormalities, going to OR and other per tinent info. @ -Based on the patient's presentation and physical exam, patient presents to the emergency department complaining of upper respiratory symptoms. Patient is febrile, tachycardic. Workup was started in triage as a quick note. She will be symptomatically treated with IV fluids, albuterol inhaler, as well as steroids. Patient appears dehydrated. Patient was in agreement this plan. Patient's chest x-ray shows left-sided pneumonia. EKG shows no signs of acute ischemia. Labs remarkable for leukocytosis of 16. Remainder the workup unremarkable. Technically patient has 3 out of 4 SIRS criteria with tachycardia, febrile, leukocytosis. She appears unwell. Patient technically meets for sepsis at 2140. She will receive a second fluid bolus and started on maintenance fluids o f 100 cc an hour to meet the 30 cc/kg fluid agreement. She was started on broad-spectrum antibiotics. Blood cultures obtained and sent. I discussed admission with patient and she was in agreement this plan. She has technically failed outpatient management of pneumonia as well as she has been on amoxicillin for 3 days and has gotten worse. I spoke with the admitting provider, Dr. Workman who accepted the admission. Pulmonology consulted. Undiagnosed new problem with uncertain prognosis? @ -No Drug Therapy requiring intensive monitoring for toxicity (Heparin, Nitro, Insulin, Cardizem)? @ -No Were any procedures done? @ -No Diagnosis/symptom? @ -Sepsis secondary to left-sided pneumonia, COVID-19 infection Acute, or Chronic, or Acute on Chronic? @ -Acute Uncomplicated (without systemic symptoms) or Complicated (systemic symptoms)? @ -Complicated Side effects of treatment? @ -No Exacerbation, Progression, or Severe Exacerbation? @ -No Poses a threat to life or bodily function? How? (Chest pain, [place], GA, pneumonia, PE, COPD, DKA, ARF, appy, cholecystitis, CVA, Diverticulitis, Homicidal, Suicidal, threat to staff... and all critical care pts) @ -Yes (Fili Cox) - Lab Data Lab Results 10/13/23 10/13/23 10/13/23 Range/Units 20:44 20:44 20:44 WBC 16.1 H (3.8-10.6) k/uL RBC 4.61 (3.80-5.40) m/uL Hgb 11.9 (11.4-16.0) gm/dL Hct 37.6 (34.0-46.0) % MCV 81.7 (80.0-100.0) fL MCH 25.8 (25.0-35.0) pg MCHC 31.6 (31.0-37.0) g/dL RDW 14.3 (11.5-15.5) % Plt Count 366 (150-450) k/uL MPV 7.8 Neutrophils % 76 % Lymphocytes % 16 % Monocytes % 6 % Eosinophils % 1 % Basophils % 0 % Neutrophils # 12.2 H (1.3-7.7) k/uL Lymphocytes # 2.5 (1.0-4.8) k/uL Monocytes # 0.9 (0-1.0) k/uL Eosinophils # 0.2 (0-0.7) k/uL Basophils # 0.0 (0-0.2) k/uL PT 9.9 L (10.0-12.5) sec INR 0.9 (<1.2) APTT 28.1 (22.0-30.0) sec Sodium 137 (137-145) mmol/L Potassium 4.0 (3.5-5.1) mmol/L Chloride 109 H (98-107) mmol/L Carbon Dioxide 22 (22-30) mmol/L Anion Gap 6 mmol/L BUN 12 (7-17) mg/dL Creatinine 0.52 (0.52-1.04) mg/dL Est GFR (CKD-EPI)AfAm >90 (>60 ml/min/1.73 sqM) Est GFR (CKD-EPI)NonAf >90 (>60 ml/min/1.73 sqM) Glucose 96 (74-99) mg/dL Plasma Lactic Acid Darnell (0.7-2.0) mmol/L Calcium 8.7 (8.4-10.2) mg/dL Magnesium 1.9 (1.6-2.3) mg/dL Total Bilirubin 1.1 (0.2-1.3) mg/dL AST 24 (14-36) U/L ALT 28 (4-34) U/L Alkaline Phosphatase 125 (38-126) U/L Troponin I (0.000-0.034) ng/mL Total Protein 6.6 (6.3-8.2) g/dL Albumin 3.8 (3.5-5.0) g/dL 10/13/23 10/13/23 Range/Units 20:44 20:44 WBC (3.8-10.6) k/uL RBC (3.80-5.40) m/uL Hgb (11.4-16.0) gm/dL Hct (34.0-46.0) % MCV (80.0-100.0) fL MCH (25.0-35.0) pg MCHC (31.0-37.0) g/dL RDW (11.5-15.5) % Plt Count (150-450) k/uL MPV Neutrophils % % Lymphocytes % % Monocytes % % Eosinophils % % Basophils % % Neutrophils # (1.3-7.7) k/uL Lymphocytes # (1.0-4.8) k/uL Monocytes # (0-1.0) k/uL Eosinophils # (0-0.7) k/uL Basophils # (0-0.2) k/uL PT (10.0-12.5) sec INR (<1.2) APTT (22.0-30.0) sec Sodium (137-145) mmol/L Potassium (3.5-5.1) mmol/L Chloride (98-107) mmol/L Carbon Dioxide (22-30) mmol/L Anion Gap mmol/L BUN (7-17) mg/dL Creatinine (0.52-1.04) mg/dL Est GFR (CKD-EPI)AfAm (>60 ml/min/1.73 sqM) Est GFR (CKD-EPI)NonAf (>60 ml/min/1.73 sqM) Glucose (74-99) mg/dL Plasma Lactic Acid Darnell 0.9 (0.7-2.0) mmol/L Calcium (8.4-10.2) mg/dL Magnesium (1.6-2.3) mg/dL Total Bilirubin (0.2-1.3) mg/dL AST (14-36) U/L ALT (4-34) U/L Alkaline Phosphatase (38-126) U/L Troponin I <0.012 (0.000-0.034) ng/mL Total Protein (6.3-8.2) g/dL Albumin (3.5-5.0) g/dL - EKG Data EKG Comments: 12-lead Electrocardiogram Interpretation Note EKG was reviewed and interpreted by myself. 12-lead ECG performed at 2003 is interpreted by me as revealing sinus tachycardia at a rate of 108 and beats per minute. [place] is normal. SD interval is 138 ms, QRS duration is 87 ms, QTc is 381 ms.. There were no ST or T wave abnormalities to suggest myocardial ischemia or injury. R wave progression across the precordium was delayed. By my interpretation this EKG is non-diagnostic for acute ischemia. (Fili Cox) Critical Care Time Critical Care Time: Yes Total Critical Care Time: 31 <Fili Cox - Last Filed: 10/13/23 21:50> Disposition <Suraj Doll - Last Filed: 10/13/23 20:05> Time of Disposition: 21:50 <Fili Cox - Last Filed: 10/13/23 21:50> Clinical Impression: Sepsis, Pneumonia, COVID-19 virus infection Disposition: ADMITTED IP TO THIS HOSP Condition: Serious Referrals: None,Stated [Primary Care Provider] - 1-2 days
--- NOTE | 2023-10-13 20:55 | XR ---
EXAMINATION TYPE: XR chest 2V DATE OF EXAM: 10/13/2023 8:49 PM CLINICAL INDICATION:Female, 33 years old with history of Chest Pain; [facility] COMPARISON: Chest radiographs from 09/27/2023.e TECHNIQUE: XR chest 2V Frontal and lateral views of the chest. FINDINGS: Lungs/Pleura: Increased airspace opacities in left lower lung. There is no evidence of pleural effusi on, focal consolidation, or pneumothorax. Pulmonary vascularity: Unremarkable. Heart/mediastinum: Cardiomediastinal silhouette is unremarkable. Musculoskeletal: No acute osseous pathology. Other findings: None IMPRESSION: Increased airspace opacities in the left lower lung. New from 09/27/2023.
[2023-10-13 21:22] LABS: Basophils % (A) 0 %; Eosinophils # (A) 0.2 k/uL (0-0.7); Eosinophils % (A) 1 %; HCT 37.6 % (34.0-46.0); HGB 11.9 gm/dL (11.4-16.0); Lymphocytes # (A) 2.5 k/uL (1.0-4.8); Lymphocytes % (A) 16 %; MCH 25.8 pg (25.0-35.0); MCHC 31.6 g/dL (31.0-37.0); MCV 81.7 fL (80.0-100.0); Mean Platelet Volume 7.8; Monocytes # (A) 0.9 k/uL (0-1.0); Monocytes % (A) 6 %; Neutrophils # (A) 12.2 k/uL (1.3-7.7); Neutrophils % (A) 76 %; Platelet Count 366 k/uL (150-450); RBC 4.61 m/uL (3.80-5.40); RDW 14.3 % (11.5-15.5); WBC 16.1 k/uL (3.8-10.6)
[2023-10-13 21:26] LABS: ALT 28 U/L (4-34); African American GFR (CKD) >90 (>60 ml/min/1.73 sqM); Albumin 3.8 g/dL (3.5-5.0); Anion Gap 6 mmol/L; Blood Urea Nitrogen 12 mg/dL (7-17); Calcium 8.7 mg/dL (8.4-10.2); Carbon Dioxide 22 mmol/L (22-30); Chloride 109 mmol/L (98-107); Glucose 96 mg/dL (74-99); Non-African American GFR(CKD) >90 (>60 ml/min/1.73 sqM); Sodium 137 mmol/L (137-145); Total Bilirubin 1.1 mg/dL (0.2-1.3); Total Protein 6.6 g/dL (6.3-8.2)
[2023-10-13 21:30] LABS: INR 0.9 (<1.2); Partial Thromboplastin Time 28.1 sec (22.0-30.0); Prothrombin Time 9.9 sec (10.0-12.5)
[2023-10-13 21:31] LABS: AST 24 U/L (14-36); Alkaline Phosphatase 125 U/L (38-126); Magnesium 1.9 mg/dL (1.6-2.3)
[2023-10-13] MEDS ORDERED: VANCOMYCIN IV PER PHARMACY 1 EACH MISC MISCELLANE PRN (21:32)
[2023-10-13] MEDS: ACETAMINOPHEN TAB 500 MG TAB PO STA (21:36)
[2023-10-13] MEDS: SODIUM CHLORIDE 0.9% 1,000 ML IV STA ×2 (21:36→21:44)
[2023-10-13] MEDS: methylPREDNISolone SOD SUCCI 40 MG/ML 1 ML VIAL IV STA (21:37)
[2023-10-13] MEDS ORDERED: PNEUMONIA PROTOCOL UTILIZED 1 EACH MISC PO PRN (21:39)
[2023-10-13 21:47] LABS: Appearance,Urine Clear (Clear); Bilirubin,Urine Negative (Negative); Blood,Urine Negative (Negative); Color,Urine Light Yellow; Glucose,Urine (UA) Negative (Negative); Ketones,Urine Trace (Negative); Leukocyte Esterase,Urine Negative (Negative); Nitrite,Urine Negative (Negative); PH, Urine 7.5 (5.0-8.0); Protein,Urine Trace (Negative); Specific Gravity,Urine 1.025 (1.001-1.035); Urobilinogen,Urine <2.0 mg/dL (<2.0)
[2023-10-13] MEDS ORDERED: ALBUTEROL HFA INHALER INHALATION PRN (22:00)
[2023-10-13] MEDS: ALBUTEROL HFA INHALER INHALATION STA (22:01)
[2023-10-13] MEDS: VANCOMYCIN 2,000 MG in SODIUM CHLORIDE 0.9% 500 ML 500 ML IVPB SCH (22:24)
--- NOTE | 2023-10-14 00:27 | P.HPIM ---
History of Present Illness H&P Date: 10/13/23 Patient is a 33-year-old female with a PMH of fibromyalgia, chronic migraines, PCOS, who presents to the emergency room with complaints of shortness of breath and cough. Patient reports that she has been experiencing persistent nasal congestion with cough which is nonproductive for the past several weeks. She notes multiple people at her workplace are also ill with similar symptoms. She was reportedly seen at [facility] where she was diagnosed with COVID. She had also been taking amoxicillin after diagnosis of left-sided otitis media 3 days ago. Reports that her congestion and cough has persisted and that she now has fevers. Denies experiencing chest discomfort, nausea, vomiting, diaphoresis, or dizziness. Does report severely pleuritic left-sided chest pain. She also reports ongoing left ear fullness despite compliance with her oral amoxicillin doses over the past several days. Chest x-ray in the emergency room revealed findings of a left lower lobe opacity with EKG showing sinus tachycardia at 108 bpm with T wave inversion in leads III and aVF as reviewed by me. Laboratory evaluation was remarkable for leukocytosis of 16.1, sodium 137, chloride 109, troponin less than 0.012, UA unremarkable, with influenza, COVID-19, and RSV testing negative. ED documentation reviewed and case discussed with ED provider. Review of systems: Pertinent positives and negatives as discussed in HPI, a complete review of systems was performed and all other systems are negative. Physical examination: Vital signs reviewed General: non toxic, no distress, appears at stated age, morbidly obese Derm: no unusual rashes/lesions, warm Head: atraumatic, normocephalic, symmetric Eyes: EOMI, no lid lag, anicteric sclera, pupils equal round reactive to light ENT: Nose and ears atraumatic, left ear tympanic membranes somewhat erythematous without any auricular abnormalities noted Neck: No cervical lymphadenopathy, trachea midline, supple Mouth: no lip lesion, mucus membranes moist Cardiovascular: S1S2 reg, no murmur, positive dorsalis pedis pulse bilateral, no edema Lungs: Bilateral expiratory wheezing without rhonchi or rales, no accessory muscle use Abdominal: soft, nontender to palpation, no guarding Ext: muscle strength 5 out of 5 in all 4 extremities grossly, no gross muscle atrophy, no contractures, Neuro: CN II-XI grossly intact, no gross focal neuro deficits Psych: Alert, oriented, appropriate affect Assessment: Sepsis secondary to community-acquired pneumonia, failed outpatient treatment Recent diagnosis of COVID-19 Left-sided otitis media Chronic conditions: Fibromyalgia, chronic migraines, PCOS Imaging: Chest x-ray in the emergency room revealed findings of a left lower lobe opacity with EKG showing sinus tachycardia at 108 bpm with T wave inversion in leads III and aVF as reviewed by me. Data Review: Laboratory evaluation was remarkable for leukocytosis of 16.1, sodium 137, chloride 109, troponin less than 0.012, UA unremarkable, with influenza, COVID- 19, and RSV testing negative. Plan: Continue with broad-spectrum antibiotic coverage with cefepime and vancomycin Follow-up blood and sputum cultures Pulmonary consulted Continue IV fluids with normal saline 100 cc/h Cardiac monitoring Resume home medications once reconciled DVT prophylaxis: Lovenox subcu The patient is admitted with an anticipated [] than 2 midnight stay for evaluation of [] CODE STATUS: Full Code Discussed with: Patient Anticipated discharge place: Home Past Medical History Past Medical History: Diabetes Mellitus, Fibromyalgia, GERD/Reflux, GI Bleed, Hyperlipidemia, Hypertension Additional Past Medical History / Comment(s): gallstones, kidney stones, IBS, migraines, tachycardia, Martine- Guevara tear, blood clot, pesudo tumor cerebrea History of Any Multi-Drug Resistant Organisms: None Reported Past Surgical History: Section, Cholecystectomy, Tubal Ligation Additional Past Surgical History / Comment(s): neck biopsy (lymph node ) d&c; LP shunt May 13 2019 feb 0211/2019 -revision, stent/ lithotripsy on left, cystoscopy, shunt revises july 28. Past Anesthesia/Blood Transfusion Reactions: No Reported Reaction Past Psychological History: Anxiety, Bipolar, Depression, PTSD Smoking Status: Vaper Past Alcohol Use History: Rare Past Drug Use History: Marijuana - Past Family History Mother Family Medical History: Diabetes Mellitus, Hyperlipidemia, Hypertension, Myocardial Infarction ([place]) Additional Family Medical History / Comment(s): [place] X 3 Father Family Medical History: Congestive Heart Failure (CHF), Hyperlipidemia, Hypertension, Myocardial Infarction (NH) Additional Family Medical History / Comment(s): mi x 3 Son(s) Family Medical History: Hyperlipidemia Medications and Allergies Home Medications Medication Instructions Recorded Confirmed Type Pravastatin Sodium [Pravachol] 20 mg PO HS 01/20/18 01/02/21 History LORazepam [Ativan] 1 mg PO HS PRN 11/24/18 01/02/21 History buPROPion HCL [Wellbutrin XL] 300 mg PO DAILY 12/15/19 01/02/21 History traZODone HCL 50 mg PO HS 12/15/19 01/02/21 History ARIPiprazole 20 mg PO HS 01/09/20 01/02/21 History ARIPiprazole [Abilify] 5 mg PO DAILY 01/09/20 01/02/21 History Topiramate 50 mg PO HS 01/09/20 01/02/21 History busPIRone HCL 15 mg PO TID 01/09/20 01/02/21 History Amitriptyline HCl [Elavil] 75 mg PO BID 01/24/20 01/02/21 History Verapamil HCl [Verapamil ER] 180 mg PO HS 01/24/20 01/02/21 History Gabapentin 600 mg PO TID 02/20/20 01/02/21 History OXcarbazepine [Oxtellar Xr] 150 mg PO HS 02/27/20 01/02/21 History hydroCHLOROthiazide 25 mg PO DAILY 03/15/20 01/02/21 History metFORMIN HCL 500 mg PO DAILY 07/25/20 01/02/21 History SUMAtriptan succinate [Imitrex] 50 mg PO DAILY PRN 12/26/20 01/02/21 History Lidocaine 5% Patch [Lidoderm] 1 patch TOPICAL DAILY #5 patch 12/27/20 01/02/21 Rx valACYclovir HCL [Valtrex] 1,000 mg PO Q8HR #21 tab 12/27/20 01/02/21 Rx Dicyclomine [Bentyl] 20 mg PO TID PRN #20 tablet 01/01/21 01/02/21 Rx Famotidine [Pepcid] 20 mg PO BID #30 tablet 01/01/21 01/02/21 Rx Prochlorperazine [Compazine] 10 mg PO Q8H PRN 01/02/21 01/02/21 History Albuterol Sulfate [Albuterol 1 puff PO Q4-6H PRN #8.5 gm 02/16/23 Rx Sulfate Hfa] Azithromycin [Zithromax] 250 mg PO DIRECTED #6 tab 02/16/23 Rx Ipratropium-Albuterol Nebulize 3 ml INHALATION Q4-6H PRN #90 ml 02/16/23 Rx [Duoneb 0.5 mg-3 mg/3 ml Soln] predniSONE 50 mg PO DAILY 5 Days #5 tab 02/16/23 Rx Erythromycin Ophth Oint [Romycin 1 applic RIGHT EYE Q8HR 5 Days #1 05/12/23 Rx Ophth Oint] each Ondansetron Odt [Zofran Odt] 4 mg PO Q8HR PRN #15 tab 08/01/23 Rx methocarbamoL [Robaxin-750] 1,500 mg PO TID PRN #30 tab 08/01/23 Rx Ondansetron Odt [Zofran Odt] 4 mg PO Q8HR PRN #20 tab 10/03/23 Rx Amoxicillin 875 mg PO Q12HR 7 Days #14 tablet 10/11/23 Rx Allergies Allergy/AdvReac Type Severity Reaction Status Date / Time aspirin AdvReac Unknown Verified 10/13/23 19:52 ketorolac [From Toradol] AdvReac Unknown Verified 10/13/23 19:52 NSAIDS (Non-Steroidal AdvReac Pt. states Verified 10/13/23 19:52 Anti-Inflamma NSAIDS have given her a GI bleed in the past. Physical Exam Vitals: Vital Signs Temp Pulse Resp BP Pulse Ox 10/13/23 23:00 98.3 F 93 20 131/64 99 10/13/23 21:40 102 H 20 147/90 10/13/23 19:47 101.6 F H 113 H 24 138/89 99 Intake and Output 10/13/23 10/13/23 10/14/23 14:59 22:59 06:59 Other: Weight 127.006 kg Results CBC & Chem 7: 10/13/23 20:44 10/13/23 20:44 Labs: Abnormal Lab Results - Last 24 Hours (Table) 10/13/23 10/13/23 10/13/23 Range/Units 20:03 20:44 20:44 WBC 16.1 H (3.8-10.6) k/uL Neutrophils # 12.2 H (1.3-7.7) k/uL PT 9.9 L (10.0-12.5) sec Chloride (98-107) mmol/L Urine Protein Trace H (Negative) Urine Ketones Trace H (Negative) 10/13/23 Range/Units 20:44 WBC (3.8-10.6) k/uL Neutrophils # (1.3-7.7) k/uL PT (10.0-12.5) sec Chloride 109 H (98-107) mmol/L Urine Protein (Negative) Urine Ketones (Negative)
[2023-10-14] MEDS: SODIUM CHLORIDE 0.9% 1,000 ML IV STA (01:46)
--- NOTE | 2023-10-14 02:01 | P.CNPUL ---
History of Present Illness Consult date: 10/14/23 Requesting physician: Fili Cox Reason for consult: pneumonia Chief complaint: Shortness of breath, cough, fever History of present illness: Patient is a 33-year-old white female with past medical history significant for diabetes mellitus, hypertension, hyperlipidemia, fibromyalgia, and morbid obesity. Of note, patient was recently evaluated in the ER at [facility] for an ear infection. She was also reporting some URI-like symptoms earlier over the weekend. She was placed on p.o. amoxicillin and discharged home on Friday. Over the last 24 hours, she reports worsening symptoms such as exertional shortness of breath, intermittent fevers, a nonproductive congested cough, and occasional loose stools. She is also reporting some pleuritic like left-sided chest pain with coughing. She states that earlier yesterday, she went to the [facility] urgent care center, and was diagnosed with COVID-19 and pneumonia. She was reportedly sent home on the same antibiotics. She returned to the emergency department at [facility] late last night. Chest x-ray done on arrival shows a new left lower lobe airspace consolidation consistent with pneumonia. CBC includes a WBC count of 16.1, but is otherwise unremarkable. BMP also unremarkable. Troponin less than 0.012. EKG shows sinus tachycardia and is nondiagnostic for acute ischemia. Interestingly, the viral panel including COVID was negative at our facility. She is intermittently febrile with a Tmax of 101.6 F. Placed on broad-spectrum antibiotics including cefepime and vancomycin. Overall appearance is nontoxic. She is on room air and SpO2 is 97%. Vital signs are stable. Review of Systems REVIEW OF SYSTEMS: CONSTITUTIONAL: Reports generalized weakness and malaise, myalgias, and intermittent fevers. EYES: Denies change in vision. EARS, NOSE, MOUTH, THROAT: Denies headaches, denies sore throat. CARDIOVASCULAR: Denies radiating chest pain, palpitations or syncopal episodes. RESPIRATORY: See HPI. GASTROINTESTINAL: Admits reduced appetite and occasional loose stools over the last 24 hours. Denies any nausea, vomiting, or abdominal pain. GENITOURINARY: Denies hematuria, denies infections. MUSKULOSKELETAL: Denies pain, denies swelling. INTEGUMENTARY: Denies rash, denies eczema. NEUROLOGICAL: Denies recent memory loss, no recent seizure activity. PSYCHIATRIC: Denies anxiety, denies depression. HEMATOLOGIC/LYMPHATIC: Denies anemia, denies enlarged lymph node Past Medical History Past Medical History: Diabetes Mellitus, Fibromyalgia, GERD/Reflux, GI Bleed, Hyperlipidemia, Hypertension Additional Past Medical History / Comment(s): gallstones, kidney stones, IBS, migraines, tachycardia, Martine- Guevara tear, blood clot, pesudo tumor cerebrea History of Any Multi-Drug Resistant Organisms: None Reported Past Surgical History: Section, Cholecystectomy, Tubal Ligation Additional Past Surgical History / Comment(s): neck biopsy (lymph node ) d&c; LP shunt May 13 2019 feb 0211/2019 -revision, stent/ lithotripsy on left, cystoscopy, shunt revises july 28. Past Anesthesia/Blood Transfusion Reactions: No Reported Reaction Past Psychological History: Anxiety, Bipolar, Depression, PTSD Smoking Status: Vaper Past Alcohol Use History: Rare Past Drug Use History: Marijuana - Past Family History Mother Family Medical History: Diabetes Mellitus, Hyperlipidemia, Hypertension, Myocardial Infarction ([place]) Additional Family Medical History / Comment(s): [place] X 3 Father Family Medical History: Congestive Heart Failure (CHF), Hyperlipidemia, Hypertension, Myocardial Infarction ([place]) Additional Family Medical History / Comment(s): [place] x 3 Son(s) Family Medical History: Hyperlipidemia Medications and Allergies Home Medications Medication Instructions Recorded Confirmed Type Pravastatin Sodium [Pravachol] 20 mg PO HS 01/20/18 01/02/21 History LORazepam [Ativan] 1 mg PO HS PRN 11/24/18 01/02/21 History buPROPion HCL [Wellbutrin XL] 300 mg PO DAILY 12/15/19 01/02/21 History traZODone HCL 50 mg PO HS 12/15/19 01/02/21 History ARIPiprazole 20 mg PO HS 01/09/20 01/02/21 History ARIPiprazole [Abilify] 5 mg PO DAILY 01/09/20 01/02/21 History Topiramate 50 mg PO HS 01/09/20 01/02/21 History busPIRone HCL 15 mg PO TID 01/09/20 01/02/21 History Amitriptyline HCl [Elavil] 75 mg PO BID 01/24/20 01/02/21 History Verapamil HCl [Verapamil ER] 180 mg PO HS 01/24/20 01/02/21 History Gabapentin 600 mg PO TID 02/20/20 01/02/21 History OXcarbazepine [Oxtellar Xr] 150 mg PO HS 02/27/20 01/02/21 History hydroCHLOROthiazide 25 mg PO DAILY 03/15/20 01/02/21 History metFORMIN HCL 500 mg PO DAILY 07/25/20 01/02/21 History SUMAtriptan succinate [Imitrex] 50 mg PO DAILY PRN 12/26/20 01/02/21 History Lidocaine 5% Patch [Lidoderm] 1 patch TOPICAL DAILY #5 patch 12/27/20 01/02/21 Rx valACYclovir HCL [Valtrex] 1,000 mg PO Q8HR #21 tab 12/27/20 01/02/21 Rx Dicyclomine [Bentyl] 20 mg PO TID PRN #20 tablet 01/01/21 01/02/21 Rx Famotidine [Pepcid] 20 mg PO BID #30 tablet 01/01/21 01/02/21 Rx Prochlorperazine [Compazine] 10 mg PO Q8H PRN 01/02/21 01/02/21 History Albuterol Sulfate [Albuterol 1 puff PO Q4-6H PRN #8.5 gm 02/16/23 Rx Sulfate Hfa] Azithromycin [Zithromax] 250 mg PO DIRECTED #6 tab 02/16/23 Rx Ipratropium-Albuterol Nebulize 3 ml INHALATION Q4-6H PRN #90 ml 02/16/23 Rx [Duoneb 0.5 mg-3 mg/3 ml Soln] predniSONE 50 mg PO DAILY 5 Days #5 tab 02/16/23 Rx Erythromycin Ophth Oint [Romycin 1 applic RIGHT EYE Q8HR 5 Days #1 05/12/23 Rx Ophth Oint] each Ondansetron Odt [Zofran Odt] 4 mg PO Q8HR PRN #15 tab 08/01/23 Rx methocarbamoL [Robaxin-750] 1,500 mg PO TID PRN #30 tab 08/01/23 Rx Ondansetron Odt [Zofran Odt] 4 mg PO Q8HR PRN #20 tab 10/03/23 Rx Amoxicillin 875 mg PO Q12HR 7 Days #14 tablet 10/11/23 Rx Allergies Allergy/AdvReac Type Severity Reaction Status Date / Time aspirin AdvReac Unknown Verified 10/13/23 19:52 ketorolac [From Toradol] AdvReac Unknown Verified 10/13/23 19:52 NSAIDS (Non-Steroidal AdvReac Pt. states Verified 10/13/23 19:52 Anti-Inflamma NSAIDS have given her a GI bleed in the past. Physical Exam Vitals: Vital Signs Temp Pulse Pulse Resp BP BP Pulse Ox 10/14/23 01:03 98.3 F 88 18 133/78 97 10/13/23 23:00 98.3 F 93 20 131/64 99 10/13/23 21:40 102 H 20 147/90 10/13/23 19:47 101.6 F H 113 H 24 138/89 99 Intake and Output 10/13/23 10/13/23 10/14/23 14:59 22:59 06:59 Other: Weight 127.006 kg GENERAL EXAM: Alert, 33-year-old obese white female, comfortable in no apparent distress. HEAD: Normocephalic and atraumatic EYES: Normal reaction of pupils, equal size. NOSE: Clear with pink turbinates. THROAT: No erythema or exudates. NECK: No masses, no JVD. CHEST: No chest wall deformity. LUNGS: Equal air entry with minimal left lower lobe focal dullness. No crackles, wheeze, rhonchi. On room air. No conversational dyspnea or accessory muscle use.. CVS: S1 and S2 normal with no audible murmur, regular rhythm. No extra heart sounds ABDOMEN: No hepatosplenomegaly, active bowel sounds, no guarding or rigidity. SPINE: No scoliosis or deformity SKIN: No rashes CENTRAL NERVOUS SYSTEM: No focal deficits, tone is normal in all 4 extremities. EXTREMITIES: There is no peripheral edema, clubbing, or cyanosis. Peripheral pulses are intact. Results - Laboratory Findings CBC and BMP: 10/13/23 20:44 10/13/23 20:44 PT/INR, D-dimer PT 9.9 sec (10.0-12.5) L 10/13/23 20:44 INR 0.9 (<1.2) 10/13/23 20:44 Abnormal lab findings: Abnormal Labs 06/10/13/23 10/13/23 20:03 20:44 20:44 WBC 16.1 H Neutrophils # 12.2 H PT 9.9 L Chloride Urine Protein Trace H Urine Ketones Trace H 10/13/23 20:44 WBC Neutrophils # PT Chloride 109 H Urine Protein Urine Ketones - Diagnostic Findings Chest x-ray: image reviewed Assessment and Plan Assessment: Left lower lobe community-acquired pneumonia, failed outpatient treatment. Chest x-ray done on arrival shows a new left lower lobe airspace consolidation consistent with pneumonia. Acute dyspnea, secondary to above Acute leukocytosis Recent treatment left-sided otitis media Reported recent diagnosis of COVID 19, viral panel negative at our facility for COVID-19 Chronic marijuana smoker Diabetes mellitus History of hypertension History of hyperlipidemia Morbid obesity with a BMI of 51.2 kg/m History of fibromyalgia History of idiopathic intracranial hypertension status post shunt Plan: Patient's medications, labs, imaging reviewed Currently on room air Continue broad-spectrum antibiotic coverage Blood cultures pending. Collect sputum sample if possible Viral panel negative for COVID 19, influenza, RSV at our facility Lovenox ordered for DVT prophylaxis Pepcid for GI prophylaxis We will continue to follow I have personally seen and examined the patient, performed the documentation and the assessment and plan as written. Number of minutes spent on the visit:20 Time with Patient: Greater than 30
[2023-10-14 05:03] LABS: African American GFR (CKD) >90 (>60 ml/min/1.73 sqM); Non-African American GFR(CKD) >90 (>60 ml/min/1.73 sqM)
[2023-10-14] MEDS: ACETAMINOPHEN TAB 325 MG TAB PO PRN (05:09)
[2023-10-14] MEDS: FAMOTIDINE 20 MG TAB PO SCH (08:41)
[2023-10-14] MEDS: ENOXAPARIN 40 MG/0.4 ML SYRINGE SQ SCH (08:41)
[2023-10-14 10:10] LABS: African American GFR (CKD) >90 (>60 ml/min/1.73 sqM); Anion Gap 6 mmol/L; Blood Urea Nitrogen 9 mg/dL (7-17); Calcium 8.7 mg/dL (8.4-10.2); Carbon Dioxide 23 mmol/L (22-30); Chloride 112 mmol/L (98-107); Glucose 140 mg/dL (74-99); Non-African American GFR(CKD) >90 (>60 ml/min/1.73 sqM); Potassium 4.3 mmol/L (3.5-5.1); Sodium 141 mmol/L (137-145)
[2023-10-14 10:15] LABS: HCT 36.9 % (34.0-46.0); HGB 11.5 gm/dL (11.4-16.0); MCHC 31.1 g/dL (31.0-37.0); MCV 83.7 fL (80.0-100.0); Mean Platelet Volume 7.2; Platelet Count 355 k/uL (150-450); RBC 4.41 m/uL (3.80-5.40); RDW 14.3 % (11.5-15.5); WBC 12.8 k/uL (3.8-10.6)
--- NOTE | 2023-10-14 12:13 | XR ---
EXAMINATION TYPE: XR chest 2V DATE OF EXAM: 10/14/2023 COMPARISON: 10/13/2023 INDICATION: Pneumonia TECHNIQUE: Frontal and lateral views of the chest are obtained. FINDINGS: The heart size is normal. The pulmonary vasculature is normal. There is persistent opacification in the left lung base which can be compatible with pneumonia. Dex nued follow-up is recommended.. IMPRESSION: 1. Persistent density left lung base. Continued follow-up is recommended.
[2023-10-14 13:32] VITALS: BP 159/95; PULSE 76; RESP 17; TEMP 98
--- NOTE | 2023-10-14 16:10 | P.DS ---
Providers Date of admission: 10/13/23 21:42 Expected date of discharge: 10/14/23 Attending physician: Lee Workman MD Consults: 10/13/23 21:39 Consult Physician Routine Consulting Provider: Martita Aquino Consult Reason/Comments: sepsis secondary to pneumonia, covid Do you want consulting provider notified?: Yes Primary care physician: Stated None Hospital Course: Discharge Diagnosis: Community-acquired pneumonia, left lower lobe. Recent diagnosis of left-sided otitis media and COVID-19 infection Leukocytosis, reactive secondary to above. Improving WBC count of 12.8 on discharge. Elevated D-dimer, patient underwent outpatient CTA on 09/27/2023 which was negative for pulmonary emboli. D-dimer was elevated but patient declining to undergo repeat CT scan at this time. Sepsis upon arrival secondary to leukocytosis, elevated temp, and tachycardia. Hospital Course: Patient is a 33-year-old female with a past medical history of hypertension, hyperlipidemia, type 2 diabetes mellitus, fibromyalgia, anxiety, depression, PTSD, nicotine dependence via vaping and daily marijuana use. She reports no longer being on any home medications stating she was taken off of all of them by her primary doctor years ago. She states she was recently diagnosed with COVID infection and left-sided otitis media and was started on amoxicillin 875 mg every 12 hours on 10/12/2023. Patient reports taking the antibiotic as instructed but reports over the past 24 hours she has had worsening cough/pam estion, exertional shortness of breath, and 2 episodes of diarrhea so she came to the emergency department for evaluation. Upon arrival to our facility, patient underwent evaluation in the emergency department. Vital signs upon arrival show blood pressure 138/89, heart rate 113, temp 101.6 F, respiratory rate 24, and SpO2 of 99% on room air. Chest x-ray was completed showing increased opacities in left lower lobe. Labs completed and reviewed. CBC showing leukocytosis with WBC count of 16.1. Coagulation profile showing low PT of 9.9 otherwise normal findings. BMP showing hyperchloremia with chloride of 109. Magnesium normal findings at 1.1. Liver profile unremarkable. Lactic acid normal findings at 0.9. Troponin was negative at less than 0.012. Urinalysis negative for infection. Influenza A, influenza B, RSV, and COVID PCR were all negative. Urine Legionella was also negative. Patient was started on IV antibiotics with vancomycin and cefepime and admitted under our services with consultation to pulmonology. D-dimer is elevated at 0.65. Patient underwent outpatient CTA on 09/27/2023 which was negative for pulmonary emboli and she declined to undergo a repeat CT scan at this time. She was monitored in the hospital overnight and reported significant improvement in symptoms. Patient had no further episodes of elevated temp and reports that she is experience significant improvement of previous reported complaints. This was pulmonology, patient being discharged home on cefdinir and azithromycin. Recommend outpatient follow-up with PCP in 3 days and with heater operator helper in 1 week. Physical exam: Patient seen and examined at bedside. Vital signs reviewed and stable. General: Nontoxic, no distress and appears stated age. Derm: Skin warm and dry, normal coloration for ethnicity. Head: Atraumatic, normocephalic and symmetric. Eyes: EOMs intact, no lid lag, and anicteric sclera Mouth: no lip lesions, mucus membranes moist Cardiovascular: regular rate and rhythm with normal S1S2, no murmur, positive posterior tibial pulses bilaterally, and cap refill < 2 seconds. Lungs: Respirations even, regular, and unlabored on room air. Lungs with equal air movement, slightly diminished at bilateral bases otherwise no rhonchi, no rales, no wheezing, and no accessory muscle usage. Abdominal: soft, nontender to palpation, no guarding, no appreciable organomegaly Ext: ROM intact. No gross muscle atrophy, no edema, no contractures Neuro: Speech clear, face symmetrical and CN II-XII grossly intact with no noted focal neuro deficits Psych: Alert and oriented to person, place, time, and situation. Appropriate and pleasant affect. A total of 32 minutes of time were spent preparing this complex discharge summary. Pt was discharged on 10/14/2023 at 2:38 PM. Patient was seen independently by Nurse Practitioner. This document was prepared using [employer] dictation software. Please allow for errors in cst while rare they do occur. I reviewed the documentation as provided by the [place] above, who is the original author of this note. I agree with the documented assessment and plan, with the following changes: none Patient Condition at Discharge: Stable Plan - Discharge Summary Discharge Rx Participant: No New Discharge Prescriptions: New Cefdinir 300 mg PO Q12HR 5 Days #10 cap Azithromycin [Zithromax Tri-Boaz (3 tabs)] 500 mg PO DAILY 3 Days #3 tab guaiFENesin [Mucinex] 600 mg PO Q12H 10 Days #20 tab Discontinued Amoxicillin 875 mg PO Q12HR Discharge Medication List Azithromycin [Zithromax Tri-Boaz (3 tabs)] 500 mg PO DAILY 3 Days #3 tab 10/14/23 [Rx] Cefdinir 300 mg PO Q12HR 5 Days #10 cap 10/14/23 [Rx] guaiFENesin [Mucinex] 600 mg PO Q12H 10 Days #20 tab 10/14/23 [Rx] Follow up Appointment(s)/Referral(s): Cesar Machado MD [REFERRING] - 3 Days (Please call office prior to discharge to schedule post hospitalization follow up and establish care with a PCP) Martita Aquino MD [STAFF PHYSICIAN] - 1 Week Patient Instructions/Handouts: Ear Infection (GEN), Community Acquired Pneumonia (DC) Activity/Diet/Wound Care/Special Instructions: Activity: As tolerated. Take breaks as needed. Diet: Heart healthy and carb consistent diet. Avoid salts, or foods with hidden salts such as canned or boxed foods and frozen dinners. Extra salt makes your heart work harder and traps the fluid in your body for longer. Special Instructions: Take all of your medications as directed and remember to keep all of your doctor's appointments and follow-up as needed. Thank you for allowing us to participate in your care, it was truly a pleasure having you for our patient!!! . Discharge Disposition: HOME SELF-CARE
[2023-10-14] MEDS ORDERED: CEFEPIME 2 GM in SODIUM CHLORIDE 0.9% 100 ML IVPB SCH (21:40)
== END 2023-10-14 18:21 | disposition home or self-care (01) ==
LOC: EC 19:45 → 4SSUR 21:42 → INTOOBSV 21:42 → 4SSUR 23:28 → UNDODISIN 10-14 18:21
PROVIDERS: ADMIT Internal Medicine; ATTEND Internal Medicine
DX: A41.89 Other specified sepsis (principal); J18.9 Pneumonia, unspecified organism; E86.0 Dehydration; H66.92 Otitis media, unspecified, left ear; E11.9 Type 2 diabetes mellitus without complications; I10 Essential (primary) hypertension; G93.2 Benign intracranial hypertension; G43.909 Migraine, unspecified, not intractable, without status migrainosus; M79.7 Fibromyalgia; E28.2 Polycystic ovarian syndrome; E78.5 Hyperlipidemia, unspecified; E87.8 Other disorders of electrolyte and fluid balance, not elsewhere classified; R79.1 Abnormal coagulation profile; E66.01 Morbid (severe) obesity due to excess calories; Z68.43 Body mass index [BMI] 50.0-59.9, adult; F12.90 Cannabis use, unspecified, uncomplicated; F41.9 Anxiety disorder, unspecified; F31.9 Bipolar disorder, unspecified; F43.10 Post-traumatic stress disorder, unspecified; F17.290 Nicotine dependence, other tobacco product, uncomplicated; Z11.59 Encounter for screening for other viral diseases; Z11.52 Encounter for screening for COVID-19; Z79.899 Other long term (current) drug therapy; Z79.84 Long term (current) use of oral hypoglycemic drugs; Z88.6 Allergy status to analgesic agent; Z98.2 Presence of cerebrospinal fluid drainage device; Z86.16 Personal history of COVID-19
CPT/HCPCS: 96366 ×2; 96372; 96365; 96375; 99291; 36415; 94640; 93005; 85379; 80053; 80048; 87449; 82565; 83605; 83735 ×2; 84484; 85025; 85027; 85610; 85730; 81003; 87040; 87636; 71046 ×2; G0378 ×2; J3370 ×2; J1650; J2919; 96361

== ENCOUNTER 2023-12-22 17:52 | Emergency (ER) | payer OTHER ==
[2023-12-22 17:58] VITALS: TEMP 98.6
--- NOTE | 2023-12-22 19:07 | ED ---
Abdominal Pain HPI - General Chief Complaint: Abdominal Pain Stated Complaint: Abdominal Pain Time Seen by Provider: 12/22/23 18:24 Source: patient Mode of arrival: ambulatory Limitations: no limitations - History of Present Illness Initial Comments: Patient is a 33-year-old female presenting today for lower abdominal cramps that "feel like contractions". Stated around 1230 this afternoon while she was sitting at work not doing anything in particular. Nothing seems to worsen or improve it. They come and go. Currently pain is 9 out of 10. No medications tried prior to arrival. Patient is allergic to NSAIDs and did not feel Tylenol would help her pain. Patient gets periods regularly, today was the last day of her period. No irregular vaginal bleeding. Has had prior tubal ligation; sexually active with male partner. No vaginal discharge, hematuria or dysuria. - Related Data Previous Rx's Medication Instructions Recorded Azithromycin [Zithromax Tri-Boaz (3 500 mg PO DAILY 3 Days #3 tab 10/14/23 tabs)] Cefdinir 300 mg PO Q12HR 5 Days #10 cap 10/14/23 guaiFENesin [Mucinex] 600 mg PO Q12H 10 Days #20 tab 10/14/23 Hyoscyamine Sulfate [Levsin] 0.125 mg PO Q8H #12 tab 12/22/23 Allergies Allergy/AdvReac Type Severity Reaction Status Date / Time aspirin AdvReac gi bleeds Verified 10/14/23 10:03 ketorolac [From Toradol] AdvReac GI bleeds Verified 10/14/23 10:03 NSAIDS (Non-Steroidal AdvReac given her Verified 10/14/23 10:03 Anti-Inflamma a GI bleed in the past Review of Systems ROS Statement: Those systems with pertinent positive or pertinent negative responses have been documented in the HPI. Past Medical History Past Medical History: Diabetes Mellitus, Fibromyalgia, GERD/Reflux, GI Bleed, Hyperlipidemia, Hypertension Additional Past Medical History / Comment(s): gallstones, kidney stones, IBS, migraines, tachycardia, Martine- Guevara tear, blood clot, pesudo tumor cerebrea History of Any Multi-Drug Resistant Organisms: None Reported Past Surgical History: Section, Cholecystectomy, Tubal Ligation Additional Past Surgical History / Comment(s): neck biopsy (lymph node ) d&c; LP shunt May 13 2019 feb 0211/2019 -revision, stent/ lithotripsy on left, cystoscopy, shunt revises july 28. Past Anesthesia/Blood Transfusion Reactions: No Reported Reaction Past Psychological History: Anxiety, Bipolar, Depression, PTSD Smoking Status: Vaper Past Alcohol Use History: Rare Past Drug Use History: Marijuana - Past Family History Mother Family Medical History: Diabetes Mellitus, Hyperlipidemia, Hypertension, Myocardial Infarction (IA) Additional Family Medical History / Comment(s): IA X 3 Father Family Medical History: Congestive Heart Failure (CHF), Hyperlipidemia, Hypertension, Myocardial Infarction (IA) Additional Family Medical History / Comment(s): mi x 3 Son(s) Family Medical History: No Reported History General Exam - General Exam Comments Initial Comments: PE: CONSTITUTIONAL: No apparent distress, well appearing SKIN: Warm, dry, no jaundice, hives or petechiae EYES: Pupils are equally round, extraocular movements intact without nystagmus, clear conjunctiva, non-icteric sclera HENT: Normocephalic, atraumatic, moist mucus membranes, oropharynx clear without exudates NECK: , Full range of motion, normal appearance PULMONARY: Clear to auscultation without wheezes, rhonchi, or rales, normal excursion, no accessory muscle use and no stridor CARDIOVASCULAR: Regular rate, rhythm, normal S1 and S2. No appreciated murmurs, rubs or gallops. Strong radial pulses with intact distal perfusion. No lower extremity edema GASTROINTESTINAL: Soft, minimal/mild tenderness to palpation in the suprapubic region non-distended, no palpable masses, no rebound or guarding. No hepatosplenomegaly MUSCULOSKELETAL: Extremities have no gross deformity, no edema, redness, or swelling. No calf swelling. NEUROLOGIC:_a/o x 3, GCS 15, normal mentation and speech. Moves all extremities x 4 without motor or sensory deficit PSYCHIATRIC:_normal mood and affect, thought process is clear and linear Limitations: no limitations Course Vital Signs 12/22/23 12/22/23 12/22/23 17:55 20:00 22:00 Temperature 98.6 F Pulse Rate 109 H 80 88 Respiratory 20 18 16 Rate Blood Pressure 150/84 106/66 94/62 O2 Sat by Pulse 97 98 98 Oximetry 12/22/23 22:45 Temperature Pulse Rate 80 Respiratory 16 Rate Blood Pressure 98/68 O2 Sat by Pulse 99 Oximetry Medical Decision Making - Medical Decision Making Was pt. sent in by a medical professional or institution ([facility], REGISTERED NURSE HH CASE MANAGER, urgent care, hospital, or halfway...) When possible be specific @ -No Did you speak to anyone other than the patient for history (EMS, parent, family, police, friend...)? What history was obtained from this source @ -No Did you review nursing and triage notes (agree or disagree)? Why?) Patient @ -[I reviewed and agree with nursing and triage notes-patient admitted for abdominal pain nausea no vomiting, confirmed w/ pt Were old charts reviewed (outside hosp., previous admission, EMS record, old EKG, old radiological studies, urgent care reports/EKG's, halfway records)? Report findings @ -10/13/23 pt admttd for PNA Differential Diagnosis (chest pain, altered mental status, abdominal pain women, abdominal pain men, vaginal bleeding, weakness, fever, dyspnea, syncope, headache, dizziness, GI bleed, back pain, seizure, CVA, palpatations, mental health, musculoskeletal)? @Differential dx remains broad however top considerations include: Appendicitis, UTI, gastroenteritis, hernia, bowel obstruction, constipation, IBS, ovarian torsion, PID, kidney stone, ectopic this is not meant to be an all-inclusive list X-rays interpreted by me (1pt min.). @ -None done CT interpreted by me (1pt min.). @ -I see no evidence of appendicitis, obstruction, perforation or other acute process What testing was considered but not performed or refused? (CT, X-rays, U/S, labs)? Why? @ -None What meds were considered but not given or refused? Why? @ -None Did you discuss the management of the patient with other professionals (professionals i.e. [facility], REGISTERED NURSE HH CASE MANAGER, lab, RT, psych nurse, social worker palliative care, dye range tender, teacher, chief procurement officer, telephonic nurse case manager)? Give summary @ -No Was smoking cessation discussed for >3mins.? @ -No Was critical care preformed (if so, how long)? @ -No Were there social determinants of health that impacted care today? How? (Homelessness, low income, unemployed, alcoholism, drug addiction, transportation, low edu. Level, literacy, decrease access to med. care, senior living, rehab)? @ -No Was there de-escalation of care discussed even if they declined (Discuss DNR or withdrawal of care, Hospice)? DNR status @ -No What co-morbidities impacted this encounter? (DM, HTN, Smoking, COPD, CAD, Cancer, CVA, ARF, Chemo, Hep., AIDS, mental health diagnosis, sleep apnea, morbid obesity)? @ -Fibromyalgia, DM Was patient admitted / discharged? Hospital course, mention meds given and route, prescriptions, significant lab abnormalities, going to OR and other pertinent info. @ -Hospital course Pt is a 33 y/o female hx LP shunt presenting for lower abdominal cramps. Pt mildly tachycardic on arrival, otherwise vitals wnl. Pt well appearing on my assessment. Mild suprapubic tenderness to palpation otherwise reassuring abdominal exam, abdomen soft no peritoneal signs no masses, nondistended. Discussed with patient obtaining labs and ultrasound and considering CT scans showed labs show concerning findings her ultrasound be nondiagnostic versus obtaining CT scan and ultrasound simultaneously. Patient preferred to have both sets of imaging done, CT and ultrasound performed. CT abdomen pelvis, ultrasound of the pelvis ordered. Comprehensive labs. Morphine Zofran for pain. Patient agreeable w/ plan. Labs and imaging reviewed. Grossly within normal limits. Abnormal values not concerning for acute pathology related to presenting complaint. CT scan negative for acute intra-abdominal or pelvic process, nonspecific groundglass opacities in the lung bases noted, may relate to developing acute infectious inflammatory process however patient is lungs are clear to auscultation, has no hypoxia do not suspect that this is the cause of patient's current symptoms. AST/ALT 42/59 however total bilirubin 0.7, lactic 1.8, test negative, urinalysis appears contaminated, suspect blood is secondary to patient currently completing her menstrual cycle. Ultrasound showed no evidence for acute abdominal process, noted trace amount of free fluid in the posterior cul-de-sac and ovaries obscured by overlying bowel gas. Ovaries were not well visualized, obstructed by overlying bowel gas, however lactic wnl. Reassessed patient and she endorsed improvement in symptoms. Will attempt to send Levsin to pt's pharmacy for stomach cramps, pt agreeable wth POC. In my medical judgment there is currently no evidence of an immediate life- threatening or surgical condition. Discharge is therefore indicated at this time. Urine Discharge treatment instructions, follow up instructions, and appropriate emergency department return precautions were discussed with the patient and/or medical decision maker. Patient and/or medical decision maker expressed understanding of and agreed with the treatment plan, follow up instructions, and emergency department return precaution. All patient's and/or medical decision maker's questions were answered. Undiagnosed new problem with uncertain prognosis? @ -No Drug Therapy requiring intensive monitoring for toxicity (Heparin, Nitro, Insulin, Cardizem)? @ -No Were any procedures done? @ -No Diagnosis/symptom? @ -Abdominal cramps Acute, or Chronic, or Acute on Chronic? @ -Acute Uncomplicated (without systemic symptoms) or Complicated (systemic symptoms)? @ -Uncomplicated Side effects of treatment? @ -No Exacerbation, Progression, or Severe Exacerbation? @ -No Poses a threat to life or bodily function? How? (Chest pain, USA, IA, pneumonia, PE, COPD, DKA, ARF, appy, cholecystitis, CVA, Diverticulitis, Homicidal, Suicidal, threat to staff... and all critical care pts) @ -No - Lab Data Result diagrams: 12/22/23 18:30 12/22/23 18:30 Lab Results 12/22/23 12/22/23 12/22/23 Range/Units 18:25 18:30 18:30 WBC 7.7 (3.8-10.6) k/uL RBC 4.41 (3.80-5.40) m/uL Hgb 12.4 (11.4-16.0) gm/dL Hct 36.7 (34.0-46.0) % MCV 83.3 (80.0-100.0) fL MCH 28.2 (25.0-35.0) pg MCHC 33.9 (31.0-37.0) g/dL RDW 14.5 (11.5-15.5) % Plt Count 338 (150-450) k/uL MPV 6.9 Neutrophils % 57 % Lymphocytes % 31 % Monocytes % 4 % Eosinophils % 6 % Basophils % 1 % Neutrophils # 4.4 (1.3-7.7) k/uL Lymphocytes # 2.4 (1.0-4.8) k/uL Monocytes # 0.3 (0-1.0) k/uL Eosinophils # 0.4 (0-0.7) k/uL Basophils # 0.1 (0-0.2) k/uL PT (10.0-12.5) sec INR (<1.2) APTT (22.0-30.0) sec Sodium 139 (137-145) mmol/L Potassium 4.1 (3.5-5.1) mmol/L Chloride 106 (98-107) mmol/L Carbon Dioxide 26 (22-30) mmol/L Anion Gap 7 mmol/L BUN 11 (7-17) mg/dL Creatinine 0.80 (0.52-1.04) mg/dL Est GFR (CKD-EPI)AfAm >90 (>60 ml/min/1.73 sqM) Est GFR (CKD-EPI)NonAf >90 (>60 ml/min/1.73 sqM) Glucose 123 H (74-99) mg/dL Plasma Lactic Acid Darnell (0.7-2.0) mmol/L Calcium 9.3 (8.4-10.2) mg/dL Total Bilirubin 0.7 (0.2-1.3) mg/dL AST 42 H (14-36) U/L ALT 59 H (4-34) U/L Alkaline Phosphatase 103 (38-126) U/L Total Protein 6.4 (6.3-8.2) g/dL Albumin 3.8 (3.5-5.0) g/dL Amylase 40 (30-110) U/L Lipase 76 (23-300) U/L HCG, Quant <2.4 mIU/mL Urine Color Yellow Urine Appearance Cloudy H (Clear) Urine pH 5.5 (5.0-8.0) Ur Specific Clifton 1.022 (1.001-1.035) Urine Protein Negative (Negative) Urine Glucose (UA) Negative (Negative) Urine Ketones Negative (Negative) Urine Blood Moderate H (Negative) Urine Nitrite Negative (Negative) Urine Bilirubin Negative (Negative) Urine Urobilinogen <2.0 (<2.0) mg/dL Ur Leukocyte Esterase Trace H (Negative) Urine WBC 4 (0-5) /hpf Ur Squamous Epith Cells 10 H (0-4) /hpf Urine Bacteria Rare H (None) /hpf Urine Mucus Many H (None) /hpf 12/22/23 12/22/23 Range/Units 18:30 20:41 WBC (3.8-10.6) k/uL RBC (3.80-5.40) m/uL Hgb (11.4-16.0) gm/dL Hct (34.0-46.0) % MCV (80.0-100.0) fL MCH (25.0-35.0) pg MCHC (31.0-37.0) g/dL RDW (11.5-15.5) % Plt Count (150-450) k/uL MPV Neutrophils % % Lymphocytes % % Monocytes % % Eosinophils % % Basophils % % Neutrophils # (1.3-7.7) k/uL Lymphocytes # (1.0-4.8) k/uL Monocytes # (0-1.0) k/uL Eosinophils # (0-0.7) k/uL Basophils # (0-0.2) k/uL PT 11.1 (10.0-12.5) sec INR 1.0 (<1.2) APTT 24.6 (22.0-30.0) sec Sodium (137-145) mmol/L Potassium (3.5-5.1) mmol/L Chloride (98-107) mmol/L Carbon Dioxide (22-30) mmol/L Anion Gap mmol/L BUN (7-17) mg/dL Creatinine (0.52-1.04) mg/dL Est GFR (CKD-EPI)AfAm (>60 ml/min/1.73 sqM) Est GFR (CKD-EPI)NonAf (>60 ml/min/1.73 sqM) Glucose (74-99) mg/dL Plasma Lactic Acid Darnell 1.8 (0.7-2.0) mmol/L Calcium (8.4-10.2) mg/dL Total Bilirubin (0.2-1.3) mg/dL AST (14-36) U/L ALT (4-34) U/L Alkaline Phosphatase (38-126) U/L Total Protein (6.3-8.2) g/dL Albumin (3.5-5.0) g/dL Amylase (30-110) U/L Lipase (23-300) U/L HCG, Quant mIU/mL Urine Color Urine Appearance (Clear) Urine pH (5.0-8.0) Ur Specific Clifton (1.001-1.035) Urine Protein (Negative) Urine Glucose (UA) (Negative) Urine Ketones (Negative) Urine Blood (Negative) Urine Nitrite (Negative) Urine Bilirubin (Negative) Urine Urobilinogen (<2.0) mg/dL Ur Leukocyte Esterase (Negative) Urine WBC (0-5) /hpf Ur Squamous Epith Cells (0-4) /hpf Urine Bacteria (None) /hpf Urine Mucus (None) /hpf Disposition Clinical Impression: Abdominal cramps Disposition: HOME SELF-CARE Condition: Good Instructions (If sedation given, give patient instructions): Acute Abdominal P ain (ED) Additional Instructions: Every disease is a spectrum and a small chance still exists that a serious condition could develop, for this reason, please monitor yourself closely for new, changing or worsening symptoms, symptoms that persist beyond 48 hours, fever, heavy vaginal bleeding or unexpected vaginal bleeding, inability to tolerate/keep down fluids or your medications, inability to follow up with outpatient providers as instructed and should you experience these symptoms or should you have any further concerns for your wellbeing please return to the ED or call 911 immediately. PLEASE call your primary care physician as soon as possible to arrange / discuss plan for followup appointment. Appointment in the next 1-3 days is strongly encouraged if possible. PLEASE let us know here before you leave if there is anything further we can do to be of any assistance. Take care and feel Better! Prescriptions: Hyoscyamine Sulfate [Levsin] 0.125 mg PO Q8H #12 tab Is patient prescribed a controlled substance at d/c from ED?: No Referrals: None,Stated [Primary Care Provider] - 1-2 days Time of Disposition: 22:18
[2023-12-22] MEDS: MORPHINE SULFATE 4 MG/ML SYRINGE IVP STA (19:45)
[2023-12-22] MEDS: SODIUM CHLORIDE 0.9% 1,000 ML IV STA (19:46)
[2023-12-22] MEDS: ONDANSETRON 4 MG/2 ML VIAL IVP STA (19:46)
[2023-12-22 19:49] LABS: Basophils # (A) 0.1 k/uL (0-0.2); Basophils % (A) 1 %; Eosinophils # (A) 0.4 k/uL (0-0.7); Eosinophils % (A) 6 %; HCT 36.7 % (34.0-46.0); HGB 12.4 gm/dL (11.4-16.0); Lymphocytes # (A) 2.4 k/uL (1.0-4.8); Lymphocytes % (A) 31 %; MCH 28.2 pg (25.0-35.0); MCHC 33.9 g/dL (31.0-37.0); MCV 83.3 fL (80.0-100.0); Mean Platelet Volume 6.9; Monocytes # (A) 0.3 k/uL (0-1.0); Monocytes % (A) 4 %; Neutrophils # (A) 4.4 k/uL (1.3-7.7); Neutrophils % (A) 57 %; Platelet Count 338 k/uL (150-450); RBC 4.41 m/uL (3.80-5.40); RDW 14.5 % (11.5-15.5); WBC 7.7 k/uL (3.8-10.6)
[2023-12-22 19:58] LABS: Appearance,Urine Cloudy (Clear); Bacteria,Urine Rare /hpf; Bilirubin,Urine Negative (Negative); Blood,Urine Moderate (Negative); Color,Urine Yellow; Glucose,Urine (UA) Negative (Negative); Ketones,Urine Negative (Negative); Leukocyte Esterase,Urine Trace (Negative); Mucus,Urine Many /hpf; Nitrite,Urine Negative (Negative); PH, Urine 5.5 (5.0-8.0); Protein,Urine Negative (Negative); Specific Gravity,Urine 1.022 (1.001-1.035); Squamous Epithelial Cell,Urine 10 /hpf (0-4); Urobilinogen,Urine <2.0 mg/dL (<2.0); WBC,Urine 4 /hpf (0-5)
[2023-12-22 20:02] LABS: ALT 59 U/L (4-34); AST 42 U/L (14-36); African American GFR (CKD) >90 (>60 ml/min/1.73 sqM); Albumin 3.8 g/dL (3.5-5.0); Alkaline Phosphatase 103 U/L (38-126); Amylase 40 U/L (30-110); Anion Gap 7 mmol/L; Blood Urea Nitrogen 11 mg/dL (7-17); Calcium 9.3 mg/dL (8.4-10.2); Carbon Dioxide 26 mmol/L (22-30); Chloride 106 mmol/L (98-107); Glucose 123 mg/dL (74-99); Lipase 76 U/L (23-300); Non-African American GFR(CKD) >90 (>60 ml/min/1.73 sqM); Potassium 4.1 mmol/L (3.5-5.1); Sodium 139 mmol/L (137-145); Total Bilirubin 0.7 mg/dL (0.2-1.3); Total Protein 6.4 g/dL (6.3-8.2)
[2023-12-22 20:18] LABS: HCG,Quantitative Serum <2.4 mIU/mL
--- NOTE | 2023-12-22 20:24 | US ---
EXAMINATION TYPE: US transvaginal DATE OF EXAM: 12/22/2023 COMPARISON: US 2019 CLINICAL INDICATION: Female, 33 years old with history of pelvic cramping, "feels like contractions"; Patient states pelvic cramping since 11 today. Hx 4 c sections and tubal ligation. TECHNIQUE: Transvaginal (TV). . Transvaginal sonographic images were medically necessary to better assess the following anatomy: Ovaries Date of LMP: 12/12/2023 EXAM MEASUREMENTS: Uterus: 10.5 x 4.9 x 4.5 cm Endometrial Stripe: 0.7 cm Right Ovary: Unable to visualize due to overlying bowel Left Ovary: Unable to visualize due to overlying bowel Limited due to body habitus 1. Uterus: Anteverted There is a 1.0 x 0.4 x 0.9cm fluid collection likely representing changes 2. Endometrium: wnl as best seen 3. Right Ovary: Obscured by overlying bowel gas 4. Left Ovary: Obscured by overlying bowel gas 5. Bilateral Adnexa: wnl as best seen 6. Posterior cul-de-sac: trace amount of free fluid IMPRESSION: 1. No evidence for acute abdominal process. 2. Unable to visualize the ovaries due to patient's body habitus.
[2023-12-22 21:21] LABS: Partial Thromboplastin Time 24.6 sec (22.0-30.0); Prothrombin Time 11.1 sec (10.0-12.5)
--- NOTE | 2023-12-22 21:57 | CT ---
EXAMINATION TYPE: CT abdomen pelvis w con CT DLP: 2444.9 mGycm, Automated exposure control for dose reduction was used. DATE OF EXAM: 12/22/2023 9:03 PM COMPARISON: CT abdomen pelvis most recent from 08/01/2023 CLINICAL INDICATION:Female, 33 years old with history of abdominal pain; Abdominal pain TECHNIQUE: Axial CT abdomen pelvis w con;Sagittal and coronal reformats were created on a separate w orkstation. Contrast used:100ml mL of Isovue 300 with IV Contrast, (none if empty) Oral contrast used: without Oral Contrast (none if empty) FINDINGS: LOWER CHEST: Few scattered patchy groundglass changes are seen in the bilateral lower lobes. ABDOMEN LIVER: Diffusely hypoattenuating parenchyma. GALLBLADDER AND BILE DUCTS: Gallbladder is surgically absent. No biliary ductal dilatation PANCREAS: Unremarkable. SPLEEN: Unremarkable. ADRENAL GLANDS: Unremarkable. KIDNEYS AND URETERS: No evidence of hydronephrosis or renal calculus. The ureters are unremarkable. PELVIS BLADDER: Incompletely distended but grossly unremarkable. REPRODUCTIVE: No pelvic masses. Metallic clips are seen in the area of the fallopian tubes. ABDOMEN & PELVIS STOMACH AND BOWEL: Mildly distended stomach. Small bowel is of normal caliber. No evidence of bowel o bstruction. PERITONEUM/RETROPERITONEUM: No evidence of pneumoperitoneum or free fluid. Partially visualized intra thecal shunt with distal lead terminating within the peritoneum without obvious obstructive process. VASCULATURE: No evidence of aortic aneurysm. MUSCULOSKELETAL: No acute osseous abnormalities LYMPH NODES: No gross evidence for lymphadenopathy. SOFT TISSUE/ABDOMINAL WALL: Unremarkable IMPRESSION: 1. No acute intra-abdominal/pelvic process. 2. Hepatic steatosis. 3. Nonspecific scattered groundglass changes in the lung bases may relate to developing acute infecti ous/inflammatory process. Correlate with clinical evaluation.
[2023-12-22 22:13] VITALS: RESP 16
[2023-12-22 22:58] VITALS: BP 98/68; PULSE 80
== END 2023-12-22 22:45 | disposition home or self-care (01) ==
LOC: EC 17:52
DX: R10.30 Lower abdominal pain, unspecified (principal); E11.10 Type 2 diabetes mellitus with ketoacidosis without coma; M79.7 Fibromyalgia; F17.290 Nicotine dependence, other tobacco product, uncomplicated; Z88.6 Allergy status to analgesic agent; Z88.8 Allergy status to other drugs, medicaments and biological substances; Z90.49 Acquired absence of other specified parts of digestive tract
CPT/HCPCS: 36415; 80053; 82150; 83605; 83690; 85025; 85610; 85730; 81001; 84702; 76830; 74177; 99284; 96374; 96375; 96361 ×3; J2270; J2405; Q9967

== ENCOUNTER 2023-12-25 14:53 | Emergency (ER) | payer OTHER ==
[2023-12-25 15:02] VITALS: RESP 18
--- NOTE | 2023-12-25 15:32 | ED ---
Abdominal Pain HPI - General Source: patient, RN notes reviewed Mode of arrival: ambulatory Limitations: no limitations <Jose White - Last Filed: 12/25/23 15:31> <Paty Vera - Last Filed: 12/25/23 22:22> - General Chief Complaint: Abdominal Pain Stated Complaint: abd pain/back pain Time Seen by Provider: 12/25/23 15:05 - History of Present Illness Initial Comments: Quick [id number] female presents emergency department complaint of lower abdominal pain. Patient states she was seen earlier in the week for similar complaints. Patient states that she had a CT and ultrasound which was unremarkable. She states pain still persist she has no urinary symptoms such as dysuria no hematuria noted no change in bowel habits no fever reported (Jose White) 33-year-old female presents emergency department chief complaint of lower abdominal pain has been persistent over the past few days. States that this is described as a stabbing squeezing sensation with radiation to her right lower back. Patient was evaluated on Friday for similar symptoms. CT and ultrasound which were unremarkable. Patient states that she has intermittent feelings of nausea however denies vomiting. Denies dysuria, hematuria, increase in urinary frequency or urgency. Denies changes in bowel habits. States that she had a tubal ligation completed a few years ago. History of cholecystectomy and 4 sections with no complications. (Paty Vera) - Related Data Home Medications Medication Instructions Recorded Confirmed Dicyclomine [Bentyl] 10 mg PO QID PRN 12/25/23 12/25/23 Hyoscyamine Sulfate [Levsin] 0.125 mg PO Q8H PRN 12/25/23 12/25/23 Allergies Allergy/AdvReac Type Severity Reaction Status Date / Time aspirin AdvReac gi bleeds Verified 12/25/23 20:18 ketorolac [From Toradol] AdvReac GI bleeds Verified 12/25/23 20:18 NSAIDS (Non-Steroidal AdvReac given her Verified 12/25/23 20:18 Anti-Inflamma a GI bleed in the past Review of Systems ROS Other: All systems not noted in ROS Statement are negative. <Jose White - Last Filed: 12/25/23 15:31> ROS Other: All systems not noted in ROS Statement are negative. <Paty Vera - Last Filed: 12/25/23 22:22> ROS Statement: Those systems with pertinent positive or pertinent negative responses have been documented in the HPI. Past Medical History Past Medical History: Diabetes Mellitus, Fibromyalgia, GERD/Reflux, GI Bleed, Hyperlipidemia, Hypertension Additional Past Medical History / Comment(s): gallstones, kidney stones, IBS, migraines, tachycardia, Martine- Guevara tear, blood clot, pesudo tumor cerebrea History of Any Multi-Drug Resistant Organisms: None Reported Past Surgical History: Section, Cholecystectomy, Tubal Ligation Additional Past Surgical History / Comment(s): neck biopsy (lymph node ) d&c; LP shunt May 13 2019 feb 0211/2019 -revision, stent/ lithotripsy on left, cystoscopy, shunt revises july 28. Past Anesthesia/Blood Transfusion Reactions: No Reported Reaction Past Psychological History: Anxiety, Bipolar, Depression, PTSD Smoking Status: Vaper Past Alcohol Use History: Rare Past Drug Use History: Marijuana - Past Family History Mother Family Medical History: Diabetes Mellitus, Hyperlipidemia, Hypertension, Myocardial Infarction ([place]) Additional Family Medical History / Comment(s): [place] X 3 Father Family Medical History: Congestive Heart Failure (CHF), Hyperlipidemia, Hypertension, Myocardial Infarction ([place]) Additional Family Medical History / Comment(s): mi x 3 Son(s) Family Medical History: No Reported History <Jose White - Last Filed: 12/25/23 15:31> General Exam Limitations: no limitations <Jose White - Last Filed: 12/25/23 15:31> General appearance: alert, in no apparent distress, obese Head exam: Present: atraumatic, normocephalic, normal inspection Eye exam: Present: normal appearance, PERRL, EOMI. Absent: scleral icterus, conjunctival injection, periorbital swelling ENT exam: Present: normal exam, mucous membranes moist Neck exam: Present: normal inspection. Absent: tenderness, meningismus, lymphadenopathy Respiratory exam: Present: normal lung sounds bilaterally. Absent: respiratory distress, wheezes, rales, rhonchi, stridor Cardiovascular Exam: Present: regular rate, normal rhythm, normal heart sounds. Absent: systolic murmur, diastolic murmur, rubs, gallop, clicks GI/Abdominal exam: Present: soft, tenderness (lower, diffuse), normal bowel sounds. Absent: distended, guarding, rebound, rigid Extremities exam: Present: normal inspection, full ROM, normal capillary refill. Absent: tenderness, pedal edema, joint swelling, calf tenderness Back exam: Present: normal inspection Skin exam: Present: warm, dry, intact, normal color. Absent: rash <Paty Vera - Last Filed: 12/25/23 22:22> - General Exam Comments Initial Comments: Visual Physical Exam Vital signs reviewed General: Well-appearing, nontoxic, no acute distress. Head: Normocephalic, atraumatic Eyes: PERRLA, EOMI ENT: Airway patent Chest: Nonlabored breathing Skin: No visual rash, normal skin tone Neuro: Alert and oriented 3 Musculoskeletal: No gross abnormalities (Jose White) Course Vital Signs 12/25/23 12/25/23 12/25/23 15:00 18:48 19:41 Temperature 98.1 F Pulse Rate 93 95 95 Respiratory 18 18 18 Rate Blood Pressure 119/82 131/68 118/65 O2 Sat by Pulse 98 99 100 Oximetry Medical Decision Making <Jose White - Last Filed: 12/25/23 15:31> - Lab Data Result diagrams: 12/25/23 18:47 12/25/23 18:47 <Paty Vera - Last Filed: 12/25/23 22:22> - Medical Decision Making I completed the quick note portion of this chart signed Jose White PA-C (Jose White) Was pt. sent in by a medical professional or institution ([facility], [employer], urgent care, hospital, or half-way...) When possible be specific @ -No Did you speak to anyone other than the patient for history (EMS, parent, family, police, friend...)? What history was obtained from this source @ -No Did you review nursing and triage notes (agree or disagree)? Why? @ -I reviewed and agree with nursing and triage notes Were old charts reviewed (outside hosp., previous admission, EMS record, old EKG, old radiological studies, urgent care reports/EKG's, half-way records)? Report findings @ -reviewed CT of the abdomen pelvis without contrast was completed on 12/22/2023 which revealed no acute intra-abdominal/pelvic process, Paddock steatosis with nonspecific scattered groundglass changes in the lung bases Differential Diagnosis (chest pain, altered mental status, abdominal pain women, abdominal pain men, vaginal bleeding, weakness, fever, dyspnea, syncope, headache, dizziness, GI bleed, back pain, seizure, CVA, palpatations, mental health, musculoskeletal)? @ -Differential Abdominal Pain Women: Appendicitis, Cholecystitis, diverticulosis, ischemic bowel, pancreatitis, hepatitis, UTI, gastroenteritis, AAA, incarcerated hernia, bowel obstruction, constipation, inflammatory bowel, hepatitis, peptic ulcer disease, splenic infarction, perforated viscus, vulvitis, ovarian torsion, PID, kidney stone, placenta abruption, this is not meant to be an all-inclusive list EKG interpreted by me (3pts min.). @ -none X-rays interpreted by me (1pt min.). @ -None done CT interpreted by me (1pt min.). @ -CT of the abdomen pelvis with contrast reveals hepatosplenomegaly with moderate hepatic steatosis, normal appendix. U/S interpreted by me (1pt. min.). @ -None done What testing was considered but not performed or refused? (CT, X-rays, U/S, labs)? Why? @ -None What meds were considered but not given or refused? Why? @ -None Did you discuss the management of the patient with other professionals (pro fessionals i.e. , PA, [employer], lab, RT, psych nurse, social welfare administrator, die repairer trimmer dies, teacher, foreign service officer, case maker)? Give summary @ -No Was smoking cessation discussed for >3mins.? @ -No Was critical care preformed (if so, how long)? @ -No Were there social determinants of health that impacted care today? How? (Homelessness, low income, unemployed, alcoholism, drug addiction, transportation, low edu. Level, literacy, decrease access to med. care, assisted, rehab)? @ -No Was there de-escalation of care discussed even if they declined (Discuss DNR or withdrawal of care, Hospice)? DNR status @ -No What co-morbidities impacted this encounter? (DM, HTN, Smoking, COPD, CAD, Cancer, CVA, ARF, Chemo, Hep., AIDS, mental health diagnosis, sleep apnea, morbid obesity)? @ -None Was patient admitted / discharged? Hospital course, mention meds given and route, prescriptions, significant lab abnormalities, going to OR and other pertinent info. @ -33-year-old female with diffuse lower abdominal pain. Patient was originally evaluated a quick note where labs were addition to CT imaging. On my evaluation of the patient she is resting comfortably in the examination room and vitals are within normal limits. Patient has equal bowel sounds heard throughout the abdomen. There is mild tenderness to palpation of the lower abdomen with no rebound tenderness or rigidity. Patient is provided with pain medication and fluids pending results of labs and imaging. CBC, CMP, and pancreatic enzymes all within normal limits. Urinalysis reveals epithelial cells consistent with emanation, no signs of infection. Patient had full evaluation unremarkable for acute process at this time. Recommend that patient establish care with a primary care provider and follows up for further evaluation. All questions answered at bedside answered return prior discussed with the patient she is verbalized understanding. Discussed with Dr. Oakes Undiagnosed new problem with uncertain prognosis? @ -No Drug Therapy requiring intensive monitoring for toxicity (Heparin, Nitro, Insulin, Cardizem)? @ -No Were any procedures done? @ -No Diagnosis/symptom? @ -Unspecified abdominal pain Acute, or Chronic, or Acute on Chronic? @ -Acute Uncomplicated (without systemic symptoms) or Complicated (systemic symptoms)? @ -Uncomplicated Side effects of treatment? @ -No Exacerbation, Progression, or Severe Exacerbation? @ -No Poses a threat to life or bodily function? How? (Chest pain, [place], [place], pneumonia, PE, COPD, DKA, ARF, appy, cholecystitis, CVA, Diverticulitis, Homicidal, Suicidal, threat to staff... and all critical care pts) @ -No (Paty Vera) - Lab Data Lab Results 12/25/23 12/25/23 12/25/23 Range/Units 18:47 18:47 18:47 WBC 9.7 (3.8-10.6) k/uL RBC 4.37 (3.80-5.40) m/uL Hgb 12.2 (11.4-16.0) gm/dL Hct 36.8 (34.0-46.0) % MCV 84.1 (80.0-100.0) fL MCH 28.0 (25.0-35.0) pg MCHC 33.3 (31.0-37.0) g/dL RDW 14.8 (11.5-15.5) % Plt Count 302 (150-450) k/uL MPV 7.5 Neutrophils % 61 % Lymphocytes % 28 % Monocytes % 4 % Eosinophils % 5 % Basophils % 1 % Neutrophils # 5.9 (1.3-7.7) k/uL Lymphocytes # 2.8 (1.0-4.8) k/uL Monocytes # 0.4 (0-1.0) k/uL Eosinophils # 0.5 (0-0.7) k/uL Basophils # 0.1 (0-0.2) k/uL Sodium 140 (137-145) mmol/L Potassium 3.9 (3.5-5.1) mmol/L Chloride 109 H (98-107) mmol/L Carbon Dioxide 24 (22-30) mmol/L Anion Gap 7 mmol/L BUN 13 (7-17) mg/dL Creatinine 0.80 (0.52-1.04) mg/dL Est GFR (CKD-EPI)AfAm >90 (>60 ml/min/1.73 sqM) Est GFR (CKD-EPI)NonAf >90 (>60 ml/min/1.73 sqM) Glucose 97 (74-99) mg/dL Plasma Lactic Acid Darnell 1.8 (0.7-2.0) mmol/L Calcium 9.2 (8.4-10.2) mg/dL Total Bilirubin 0.6 (0.2-1.3) mg/dL AST 32 (14-36) U/L ALT 50 H (4-34) U/L Alkaline Phosphatase 121 (38-126) U/L Total Protein 6.3 (6.3-8.2) g/dL Albumin 3.8 (3.5-5.0) g/dL Lipase 119 (23-300) U/L Urine Color Urine Appearance (Clear) Urine pH (5.0-8.0) Ur Specific Morris (1.001-1.035) Urine Protein (Negative) Urine Glucose (UA) (Negative) Urine Ketones (Negative) Urine Blood (Negative) Urine Nitrite (Negative) Urine Bilirubin (Negative) Urine Urobilinogen (<2.0) mg/dL Ur Leukocyte Esterase (Negative) Urine RBC (0-5) /hpf Urine WBC (0-5) /hpf Ur Squamous Epith Cells (0-4) /hpf Urine Bacteria (None) /hpf Urine Mucus (None) /hpf 12/25/23 Range/Units 21:31 WBC (3.8-10.6) k/uL RBC (3.80-5.40) m/uL Hgb (11.4-16.0) gm/dL Hct (34.0-46.0) % MCV (80.0-100.0) fL MCH (25.0-35.0) pg MCHC (31.0-37.0) g/dL RDW (11.5-15.5) % Plt Count (150-450) k/uL MPV Neutrophils % % Lymphocytes % % Monocytes % % Eosinophils % % Basophils % % Neutrophils # (1.3-7.7) k/uL Lymphocytes # (1.0-4.8) k/uL Monocytes # (0-1.0) k/uL Eosinophils # (0-0.7) k/uL Basophils # (0-0.2) k/uL Sodium (137-145) mmol/L Potassium (3.5-5.1) mmol/L Chloride (98-107) mmol/L Carbon Dioxide (22-30) mmol/L Anion Gap mmol/L BUN (7-17) mg/dL Creatinine (0.52-1.04) mg/dL Est GFR (CKD-EPI)AfAm (>60 ml/min/1.73 sqM) Est GFR (CKD-EPI)NonAf (>60 ml/min/1.73 sqM) Glucose (74-99) mg/dL Plasma Lactic Acid Darnell (0.7-2.0) mmol/L Calcium (8.4-10.2) mg/dL Total Bilirubin (0.2-1.3) mg/dL AST (14-36) U/L ALT (4-34) U/L Alkaline Phosphatase (38-126) U/L Total Protein (6.3-8.2) g/dL Albumin (3.5-5.0) g/dL Lipase (23-300) U/L Urine Color Colorless Urine Appearance Cloudy H (Clear) Urine pH 6.5 (5.0-8.0) Ur Specific Morris >1.050 H (1.001-1.035) Urine Protein Negative (Negative) Urine Glucose (UA) Negative (Negative) Urine Ketones Negative (Negative) Urine Blood Negative (Negative) Urine Nitrite Negative (Negative) Urine Bilirubin Negative (Negative) Urine Urobilinogen <2.0 (<2.0) mg/dL Ur Leukocyte Esterase Small H (Negative) Urine RBC <1 (0-5) /hpf Urine WBC 16 H (0-5) /hpf Ur Squamous Epith Cells 19 H (0-4) /hpf Urine Bacteria Rare H (None) /hpf Urine Mucus Rare H (None) /hpf Disposition <Jose White - Last Filed: 12/25/23 15:31> Is patient prescribed a controlled substance at d/c from ED?: No Time of Disposition: 22:17 <Paty Vera - Last Filed: 12/25/23 22:22> Clinical Impression: Abdominal pain Disposition: HOME SELF-CARE Condition: Good Instructions (If sedation given, give patient instructions): Abdominal Pain (ED) Additional Instructions: Return to emergency department for any new or worsening symptoms. Referrals: None,Stated [Primary Care Provider] - 1-2 days
[2023-12-25] MEDS: SODIUM CHLORIDE 0.9% 1,000 ML IV STA (18:48)
[2023-12-25 18:58] LABS: Basophils # (A) 0.1 k/uL (0-0.2); Basophils % (A) 1 %; Eosinophils # (A) 0.5 k/uL (0-0.7); Eosinophils % (A) 5 %; HCT 36.8 % (34.0-46.0); HGB 12.2 gm/dL (11.4-16.0); Lymphocytes # (A) 2.8 k/uL (1.0-4.8); Lymphocytes % (A) 28 %; MCHC 33.3 g/dL (31.0-37.0); MCV 84.1 fL (80.0-100.0); Mean Platelet Volume 7.5; Monocytes # (A) 0.4 k/uL (0-1.0); Monocytes % (A) 4 %; Neutrophils # (A) 5.9 k/uL (1.3-7.7); Neutrophils % (A) 61 %; Platelet Count 302 k/uL (150-450); RBC 4.37 m/uL (3.80-5.40); RDW 14.8 % (11.5-15.5); WBC 9.7 k/uL (3.8-10.6)
[2023-12-25] MEDS: MORPHINE SULFATE 4 MG/ML SYRINGE IVP STA ×2 (19:37→21:05)
[2023-12-25 19:45] LABS: ALT 50 U/L (4-34); AST 32 U/L (14-36); African American GFR (CKD) >90 (>60 ml/min/1.73 sqM); Albumin 3.8 g/dL (3.5-5.0); Alkaline Phosphatase 121 U/L (38-126); Anion Gap 7 mmol/L; Blood Urea Nitrogen 13 mg/dL (7-17); Calcium 9.2 mg/dL (8.4-10.2); Carbon Dioxide 24 mmol/L (22-30); Chloride 109 mmol/L (98-107); Glucose 97 mg/dL (74-99); Lipase 119 U/L (23-300); Non-African American GFR(CKD) >90 (>60 ml/min/1.73 sqM); Potassium 3.9 mmol/L (3.5-5.1); Sodium 140 mmol/L (137-145); Total Bilirubin 0.6 mg/dL (0.2-1.3); Total Protein 6.3 g/dL (6.3-8.2)
--- NOTE | 2023-12-25 20:57 | CT ---
EXAMINATION TYPE: CT abdomen pelvis w con DATE OF EXAM: 12/25/2023 COMPARISON: 12/22/2023 HISTORY: 33-year-old female LOW ABD PAIN TECHNIQUE: Contiguous axial scanning of the abdomen and pelvis following administration of 100 ml Iso trent 300 IV contrast. Delayed images through the kidneys and coronal/sagittal reconstructions perform ed. CT DLP: 2253.8 mGycm Automated exposure control for dose reduction was used. FINDINGS: Heart upper limits of normal in size without pericardial effusion. Lung bases show some mil d scattered groundglass, possible related to small airways disease are interstitial pneumonitis such as DIP. No pleural effusion. Liver enlarged at 18.1 cm with diminished attenuation. Gallbladder surgically absent. Portal venous s ystem is patent. No biliary ductal dilatation. Some type of port along the subcutaneous fat layer of the left flank with catheter extending to the a nterior right lower quadrant, unchanged from prior. Adrenal glands, kidneys, and pancreas within normal limits. Spleen enlarged at 15.2 cm. A few scattered prominent mid abdominal mesenteric lymph nodes are noted measuring up to 1.1 cm. Prominent precaval lymph node in the retroperitoneum measuring 1.3 cm, unchanged. No dilated small bowel, free fluid, or free air. Normal appendix noted. Mild stool within the right side of the colon. No pericolonic inflammatory gisele nge. Bladder is urine distended. Uterus anteverted. Bilateral tubal ligation clips. Unable to separate the right ovary from adjacent clustered bowel. No abnormal fluid collection in the pelvis or pelvic lymp hadenopathy seen. Mild generalized anasarca unchanged. Bones: No osseous destructive process. Spinal stimulator lead extending up beyond the [id number] i nto the thoracic spine anteriorly and posteriorly across the T12-L1 interlaminar space. IMPRESSION: 1. HEPATOSPLENOMEGALY (LIVER 18.1 CM AND SPLEEN 15.2 CM) WITH AT LEAST MODERATE HEPATIC STEATOSIS. 2. A FEW SCATTERED PROMINENT MESENTERIC AND RETROPERITONEAL NODES MEASURING UP TO 1.3 CM REMAIN UNCHA NGED SUGGESTING A CHRONIC REACTIVE/POST INFLAMMATORY ETIOLOGY. 3. MILD GENERALIZED ANASARCA CHANGE/THIRD SPACING. 4. NORMAL APPENDIX.
[2023-12-25 22:03] LABS: Appearance,Urine Cloudy (Clear); Bacteria,Urine Rare /hpf; Bilirubin,Urine Negative (Negative); Blood,Urine Negative (Negative); Color,Urine Colorless; Glucose,Urine (UA) Negative (Negative); Ketones,Urine Negative (Negative); Leukocyte Esterase,Urine Small (Negative); Mucus,Urine Rare /hpf; Nitrite,Urine Negative (Negative); PH, Urine 6.5 (5.0-8.0); Protein,Urine Negative (Negative); RBC,Urine <1 /hpf (0-5); Squamous Epithelial Cell,Urine 19 /hpf (0-4); Urobilinogen,Urine <2.0 mg/dL (<2.0); WBC,Urine 16 /hpf (0-5)
[2023-12-25 22:08] LABS: Specific Gravity,Urine >1.050 (1.001-1.035)
[2023-12-25 23:02] VITALS: BP 120/80; PULSE 79; TEMP 98.2
== END 2023-12-25 23:03 | disposition home or self-care (01) ==
LOC: EC 14:53
CPT/HCPCS: 36415; 74177; 80053; 81001; 83605; 83690; 85025; 96361; 96374; 96376; 99284

== ENCOUNTER 2023-12-31 22:11 | Emergency (ER) | payer OTHER ==
[2023-12-31 22:16] VITALS: TEMP 98.2
[2024-01-01 01:02] VITALS: RESP 18
--- NOTE | 2024-01-01 01:14 | ED ---
GI Bleed HPI - General Chief complaint: GI Bleed Stated complaint: Blood in Stool Time Seen by Provider: 12/31/23 22:30 Source: patient, RN notes reviewed Mode of arrival: ambulatory Limitations: no limitations - History of Present Illness Initial comments: 33-year-old female presents emergency department chief complaint of bloody stools. Patient states that this evening at approximately 2100 she had an episode of diarrhea and noticed that there was pink in provide however mixed with her stool. She states that she had multiple sores externally after this which she noticed there was bright red blood and reported to the emergency department for further evaluation. Patient states that she has mild left lower quadrant pain. Patient was evaluated emergency department approximately 1 week ago for unspecified abdominal pain and discharged home in stable condition. She denies dysuria, hematuria, increased urinary frequency or urgency, rectal pain, back pain. denies history of hemorrhoids, diverticulitis or diverticulosis. - Related Data Home Medications Medication Instructions Recorded Confirmed Dicyclomine [Bentyl] 10 mg PO QID PRN 12/25/23 12/25/23 Hyoscyamine Sulfate [Levsin] 0.125 mg PO Q8H PRN 12/25/23 12/25/23 Allergies Allergy/AdvReac Type Severity Reaction Status Date / Time aspirin AdvReac gi bleeds Verified 12/31/23 22:15 ketorolac [From Toradol] AdvReac GI bleeds Verified 12/31/23 22:15 NSAIDS (Non-Steroidal AdvReac given her Verified 12/31/23 22:15 Anti-Inflamma a GI bleed in the past Review of Systems ROS Statement: Those systems with pertinent positive or pertinent negative responses have been documented in the HPI. ROS Other: All systems not noted in ROS Statement are negative. Past Medical History Past Medical History: Diabetes Mellitus, Fibromyalgia, GERD/Reflux, GI Bleed, Hyperlipidemia, Hypertension Additional Past Medical History / Comment(s): gallstones, kidney stones, IBS, migraines, tachycardia, Martine- Guevara tear, blood clot, pesudo tumor cerebrea History of Any Multi-Drug Resistant Organisms: None Reported Past Surgical History: Section, Cholecystectomy, Tubal Ligation Additional Past Surgical History / Comment(s): neck biopsy (lymph node ) d&c; LP shunt May 13 2019 feb 0211/2019 -revision, stent/ lithotripsy on left, cystoscopy, shunt revises july 28. Past Anesthesia/Blood Transfusion Reactions: No Reported Reaction Past Psychological History: Anxiety, Bipolar, Depression, PTSD Smoking Status: Vaper Past Alcohol Use History: Rare Past Drug Use History: Marijuana - Past Family History Mother Family Medical History: Diabetes Mellitus, Hyperlipidemia, Hypertension, Myocardial Infarction (PA) Additional Family Medical History / Comment(s): [place] X 3 Father Family Medical History: Congestive Heart Failure (CHF), Hyperlipidemia, Hypertension, Myocardial Infarction (PA) Additional Family Medical History / Comment(s): mi x 3 Son(s) Family Medical History: No Reported History General Exam Limitations: no limitations General appearance: alert, in no apparent distress Head exam: Present: atraumatic, normocephalic, normal inspection Eye exam: Present: normal appearance, PERRL, EOMI. Absent: scleral icterus, conjunctival injection, periorbital swelling ENT exam: Present: normal exam, mucous membranes moist Neck exam: Present: normal inspection. Absent: tenderness, meningismus, lymphadenopathy Respiratory exam: Present: normal lung sounds bilaterally. Absent: respiratory distress, wheezes, rales, rhonchi, stridor Cardiovascular Exam: Present: regular rate, normal rhythm, normal heart sounds. Absent: systolic murmur, diastolic murmur, rubs, gallop, clicks GI/Abdominal exam: Present: soft, tenderness (LLQ), normal bowel sounds. Abs ent: distended, guarding, rebound, rigid Rectal exam: Present: normal inspection, hemorrhoids Extremities exam: Present: normal inspection, full ROM, normal capillary refill. Absent: tenderness, pedal edema, joint swelling, calf tenderness Back exam: Present: normal inspection Skin exam: Present: warm, dry, intact, normal color. Absent: rash Course Vital Signs 12/31/23 01/01/24 01/01/24 22:13 01:00 01:51 Temperature 98.2 F Pulse Rate 96 89 64 Respiratory 16 18 18 Rate Blood Pressure 163/90 153/73 143/85 O2 Sat by Pulse 98 98 94 L Oximetry Medical Decision Making - Medical Decision Making Was pt. sent in by a medical professional or institution (, PA, CASKET LINER, urgent care, hospital, or skilled nursing...) When possible be specific @ -No Did you speak to anyone other than the patient for history (EMS, parent, family, police, friend...)? What history was obtained from this source @ -No Did you review nursing and triage notes (agree or disagree)? Why? @ -I reviewed and agree with nursing and triage notes Were old charts reviewed (outside hosp., previous admission, EMS record, old EKG, old radiological studies, urgent care reports/EKG's, skilled nursing records)? Report findings @ -No old charts were reviewed Differential Diagnosis (chest pain, altered mental status, abdominal pain women, abdominal pain men, vaginal bleeding, weakness, fever, dyspnea, syncope, headache, dizziness, GI bleed, back pain, seizure, CVA, palpatations, mental health, musculoskeletal)? @ -Differential Abdominal Pain Women: Appendicitis, Cholecystitis, diverticulosis, ischemic bowel, pancreatitis, hepatitis, UTI, gastroenteritis, AAA, incarcerated hernia, bowel obstruction, constipation, inflammatory bowel, hepatitis, peptic ulcer disease, splenic infarction, perforated viscus, vulvitis, ovarian torsion, PID, kidney stone, placenta abruption, this is not meant to be an all-inclusive list EKG interpreted by me (3pts min.). @ -None X-rays interpreted by me (1pt min.). @ -None done CT interpreted by me (1pt min.). @ -None done U/S interpreted by me (1pt. min.). @ -None done What testing was considered but not performed or refused? (CT, X-rays, U/S, labs)? Why? @ -Last visit imaging was considered but deferred at this time. On examination today. Patient's diarrhea is unrelated to symptoms and she experiences intermittent diarrhea therefore labs and CT imaging are deferred at this time. Patient is in agreement this plan. What meds were considered but not given or refused? Why? @ -None Did you discuss the management of the patient with other professionals (betty brock i.e. , PA, CASKET LINER, lab, RT, psych nurse, social work associate, [employer] team member, teacher, unclaimed property officer, bilingual case manager)? Give summary @ -No Was smoking cessation discussed for >3mins.? @ -No Was critical care preformed (if so, how long)? @ -No Were there social determinants of health that impacted care today? How? (Homelessness, low income, unemployed, alcoholism, drug addiction, transportation, low edu. Level, literacy, decrease access to med. care, usp, rehab)? @ -No Was there de-escalation of care discussed even if they declined (Discuss DNR or withdrawal of care, Hospice)? DNR status @ -No What co-morbidities impacted this encounter? (DM, HTN, Smoking, COPD, CAD, Cancer, CVA, ARF, Chemo, Hep., AIDS, mental health diagnosis, sleep apnea, morbid obesity)? @ -None Was patient admitted / discharged? Hospital course, mention meds given and route, prescriptions, significant lab abnormalities, going to OR and other pertinent info. @ -Discharge. 33-year-old female with bloody stools. On physical examination patient noted to have a hemorrhoid that a is not actively bleeding however on rectal examination there is blood. Recommend patient continue symptomatic treatment at home and follow-up with primary care provider for further evaluation. All questions answered at bedside and strict return parameters discussed with the patient and she is verbalized understanding. Discussed with Dr. Osman Undiagnosed new problem with uncertain prognosis? @ -No Drug Therapy requiring intensive monitoring for toxicity (Heparin, Nitro, Insulin, Cardizem)? @ -No Were any procedures done? @ -No Diagnosis/symptom? @ -Hemorrhoid, blood in stool Acute, or Chronic, or Acute on Chronic? @ -Acute Uncomplicated (without systemic symptoms) or Complicated (systemic symptoms)? @ -uncomplicated Side effects of treatment? @ -No Exacerbation, Progression, or Severe Exacerbation? @ -No Poses a threat to life or bodily function? How? (Chest pain, USA, PA, pneumonia, PE, COPD, DKA, ARF, appy, cholecystitis, CVA, Diverticulitis, Homicidal, Suicidal, threat to staff... and all critical care pts) @ -No Disposition Clinical Impression: Hemorrhoid Disposition: HOME SELF-CARE Condition: Good Instructions (If sedation given, give patient instructions): Gastrointestinal Bleeding (ED) Additional Instructions: Return to the emergency department for any new or worsening symptoms. Is patient prescribed a controlled substance at d/c from ED?: No Referrals: None,Stated [Primary Care Provider] - 1-2 days Time of Disposition: 01:13
[2024-01-01 01:53] VITALS: BP 143/85; PULSE 64
== END 2024-01-01 02:38 | disposition home or self-care (01) ==
LOC: EC 22:11
CPT/HCPCS: 99284

== ENCOUNTER 2024-02-23 15:31 | Emergency (ER) | payer OTHER ==
--- NOTE | 2024-02-23 16:08 | ED ---
Back Pain HPI - General Source: RN notes reviewed Mode of arrival: ambulatory - History of Present Illness MD Complaint: back pain Onset/Timin -: hour(s) Place: work Radiation: none Severity scale (1-10): 9 Quality: stabbing Consistency: constant Context: other (Recent physical activity, has LP shunt) Associated Symptoms: denies other symptoms <Aram Hurst - Last Filed: 02/23/24 16:03> - General Source: RN notes reviewed, old records reviewed Mode of arrival: ambulatory - History of Present Illness MD Complaint: back pain -: hour(s) Place: work Radiation: none Quality: stabbing Consistency: constant Improves With: none Worsens With: none Associated Symptoms: denies other symptoms <Timoteo Osman - Last Filed: 02/25/24 19:52> - General Stated Complaint: back pain-[facility] Time Seen by Provider: 02/23/24 15:48 - History of Present Illness Initial Comments: Quick note: This is a 33-year-old female with an LP shunt presenting with constant low back pain (9 out of 10) since 10 AM this morning. 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 Patient states stabbing pain in back is still worsening. Denies radiating pain, paresthesia, significant headache, visual changes, dizziness. (Aram Hurst) This is a 33-year-old female to ER for back pain with persistent repetitive movements which she states is usually what happens when she does this type of work secondary to an outpatient, patient is nonneurologic and has no headache requiring something for pain (Timoteo Osman) - Related Data Home Medications Medication Instructions Recorded Confirmed Dicyclomine [Bentyl] 10 mg PO QID PRN 12/25/23 12/25/23 Hyoscyamine Sulfate [Levsin] 0.125 mg PO Q8H PRN 12/25/23 12/25/23 Allergies Allergy/AdvReac Type Severity Reaction Status Date / Time aspirin AdvReac gi bleeds Verified 02/23/24 16:07 ketorolac [From Toradol] AdvReac GI bleeds Verified 02/23/24 16:07 NSAIDS (Non-Steroidal AdvReac given her Verified 02/23/24 16:07 Anti-Inflamma a GI bleed in the past Review of Systems ROS Other: All systems not noted in ROS Statement are negative. <ArisAram - Last Filed: 02/23/24 16:03> ROS Other: All systems not noted in ROS Statement are negative. <Timoteo Osman - Last Filed: 02/25/24 19:52> ROS Statement: Those systems with pertinent positive or pertinent negative responses have been documented in the HPI. Past Medical History Past Medical History: Diabetes Mellitus, Fibromyalgia, GERD/Reflux, GI Bleed, Hyperlipidemia, Hypertension Additional Past Medical History / Comment(s): gallstones, kidney stones, IBS, migraines, tachycardia, Martine- Guevara tear, blood clot, pesudo tumor cerebrea History of Any Multi-Drug Resistant Organisms: None Reported Past Surgical History: Section, Cholecystectomy, Tubal Ligation Additional Past Surgical History / Comment(s): neck biopsy (lymph node ) d&c; LP shunt May 13 2019 feb 0211/2019 -revision, stent/ lithotripsy on left, cystoscopy, shunt revises july 28. Past Anesthesia/Blood Transfusion Reactions: No Reported Reaction Past Psychological History: Anxiety, Bipolar, Depression, PTSD Smoking Status: Vaper Past Alcohol Use History: Rare Past Drug Use History: Marijuana - Past Family History Mother Family Medical History: Diabetes Mellitus, Hyperlipidemia, Hypertension, Myocardial Infarction ([place]) Additional Family Medical History / Comment(s): [place] X 3 Father Family Medical History: Congestive Heart Failure (CHF), Hyperlipidemia, Hypertension, Myocardial Infarction ([place]) Additional Family Medical History / Comment(s): mi x 3 Son(s) Family Medical History: No Reported History <ArisAram - Last Filed: 02/23/24 16:03> General Exam <ArisAram - Last Filed: 02/23/24 16:03> General appearance: alert, in no apparent distress Head exam: Present: atraumatic, normocephalic, normal inspection Eye exam: Present: normal appearance, PERRL, EOMI. Absent: scleral icterus, conjunctival injection, periorbital swelling ENT exam: Present: normal exam, mucous membranes moist Neck exam: Present: normal inspection. Absent: tenderness, meningismus, lymphadenopathy Respiratory exam: Present: normal lung sounds bilaterally. Absent: respiratory distress, wheezes, rales, rhonchi, stridor Cardiovascular Exam: Present: regular rate, normal rhythm, normal heart sounds. Absent: systolic murmur, diastolic murmur, rubs, gallop, clicks GI/Abdominal exam: Present: soft, normal bowel sounds. Absent: distended, tenderness, guarding, rebound, rigid Extremities exam: Present: normal inspection, full ROM, normal capillary refill. Absent: tenderness, pedal edema, joint swelling, calf tenderness Back exam: Present: normal inspection Neurological exam: Present: alert, oriented X3, CN II-XII intact Psychiatric exam: Present: normal affect, normal mood Skin exam: Present: warm, dry, intact, normal color. Absent: rash <Timoteo Osman - Last Filed: 02/25/24 19:52> - General Exam Comments Initial Comments: Visual Physical Exam Vital signs reviewed General: Well-appearing, nontoxic, no acute distress. Head: Normocephalic, atraumatic Eyes: PERRLA, EOMI ENT: Airway patent Chest: Nonlabored breathing Skin: No visual rash, normal skin tone Neuro: Alert and oriented 3 Musculoskeletal: No gross abnormalities (Aram Hurst) Course <Timoteo Osmna - Last Filed: 02/25/24 19:52> Vital Signs 02/23/24 16:07 Temperature 98.8 F Pulse Rate 89 Respiratory 18 Rate Blood Pressure 170/85 O2 Sat by Pulse 99 Oximetry - Reevaluation(s) Reevaluation #1: 02/23/24 20:02 Medical records reviewed (Timoteo Osman) Reevaluation #2: 02/23/24 20:02 Patient symptoms improved (Timoteo Osman) Reevaluation #3: 02/23/24 20:02 Patient informed of results and questions answered (Timoteo Osman) Reevaluation #4: Was pt. sent in by a medical professional or institution (, PA, POUNCING LATHE OPERATOR, urgent care, hospital, or jail...) When possible be specific @ -no Did you speak to anyone other than the patient for history (EMS, parent, family, police, friend...)? What history was obtained from this source @ -no Did you review nursing and triage notes (agree or disagree)? Why? @ -agree Are old charts reviewed (outside hosp., previous admission, EMS record, old EKG, old radiological studies, urgent care reports/EKG's, jail records)? Report findings @ -yes Differential Diagnosis (chest pain, altered mental status, abdominal pain women, abdominal pain men, vaginal bleeding, weakness, fever, dyspnea, syncope, headache, dizziness, GI bleed, back pain, seizure, CVA, palpatations, mental health, musculoskeletal)? @ -prior EKG interpreted by me (3pts min.). @ -no X-rays interpreted by me (1pt min.). @ -yes negative for acute disease CT interpreted by me (1pt min.). @ -no U/S interpreted by me (1pt. min.). @ -no What testing was considered but not performed or refused? (CT, X-rays, U/S, labs)? Why? @ -none What meds were considered but not given or refused? Why? @ -none Did you discuss the management of the patient with other professionals (professionals i.e. , PA, POUNCING LATHE OPERATOR, lab, RT, psych nurse, social media sr strategy manager, customer marketing manager, teacher, driver's license reviewing officer, comp field case manager)? Give summary @ -no Was smoking cessation discussed for >3mins.? @ -no Was critical care preformed (if so, how long)? @ -no Were there social determinants of health that impacted care today? How? (Homelessness, low income, unemployed, alcoholism, drug addiction, transportation, low edu. Level, literacy, decrease access to med. care, detention, rehab)? @ -none Was there de-escalation of care discussed even if they declined (Discuss DNR or withdrawal of care, Hospice)? DNR status @ -no What co-morbidities impacted this encounter? (DM, HTN, Smoking, COPD, CAD, Cancer, CVA, ARF, Chemo, Hep., AIDS, mental health diagnosis, sleep apnea, morbid obesity)? @ -none Was patient admitted / discharged? Hospital course, mention meds given and route, prescriptions, significant lab abnormalities, going to OR and other pertinent info. @ - 33 female to the ER for evaluation of severe back pain here in the ER keo rangel has severe and persistent back pain here in the emergency department and can be discharged home Discharge Undiagnosed new problem with uncertain prognosis? @ -no Drug Therapy requiring intensive monitoring for toxicity (Heparin, Nitro, Insulin, Cardizem)? @ -no Were any procedures done? @ -no Diagnosis/symptom? @ -Chronic back pain Acute, or Chronic, or Acute on Chronic? @ -Acute Uncomplicated (without systemic symptoms) or Complicated (systemic symptoms)? @ -Complicated Side effects of treatment? @ -no Exacerbation, Progression, or Severe Exacerbation? @ -exacerbation Poses a threat to life or bodily function? How? (Chest pain, USA, [place], pneumonia, PE, COPD, DKA, ARF, appy, cholecystitis, CVA, Diverticulitis, Homicidal, Suicidal, threat to staff... and all critical care pts) @ -no (Timoteo Osman) Reevaluation #5: Differential Back Pain: Strain, zoster, cauda equina syndrome, epidural abscess, vertebral osteomyelitis, discitis, fracture, subluxation, disc herniation, DJD, spinal stenosis, dissection, AAA, pancreatitis, peptic ulcer disease, pyelonephritis, kidney stone, this is not meant to be an all-inclusive list. (Timoteo Osman) Medical Decision Making <Aram Hurst - Last Filed: 02/23/24 16:03> - Radiology Data Radiology results: report reviewed (X-ray L-spine negative for acute disease), image reviewed <Timoteo Osman - Last Filed: 02/25/24 19:52> - Medical Decision Making I completed the quick note portion of this chart signed NANCY White (Aram Hurst) 33 female to the ER for evaluation of severe back pain here in the ER patient has severe and persistent back pain here in the emergency department and can be discharged home (Timoteo Osman) Disposition <Aram Hurst - Last Filed: 02/23/24 16:03> Is patient prescribed a controlled substance at d/c from ED?: No Time of Disposition: 18:40 <Timoteo Osman - Last Filed: 02/25/24 19:52> Clinical Impression: Mechanical back pain, Strain of lumbar region Disposition: HOME SELF-CARE Condition: Good Instructions (If sedation given, give patient instructions): Acute Low Back Pain (ED) Referrals: None,Stated [Primary Care Provider] - 1-2 days
[2024-02-23 16:10] VITALS: BP 170/85; PULSE 89; RESP 18; TEMP 98.8
--- NOTE | 2024-02-23 17:20 | XR ---
EXAMINATION TYPE: XR lumbosacral spine min 4V DATE OF EXAM: 02/23/2024 5:05 PM COMPARISON: 02/15/2024 CLINICAL INDICATION: Female, 33 years old with history of Low back pain, LP shunt present; [facility] TECHNIQUE: XR lumbosacral spine min 4V - Frontal, lateral , bilateral oblique and coned in L5-S1 late ral views of the spine. FINDINGS: No evidence of any acute osseous pathology. No evidence of loss of vertebral body height i s seen. There is normal alignment of the lumbar vertebral bodies. Mild scattered disc space narrowing . Multilevel marginal osteophyte formation throughout the visualized spine. There is facet joint arth ropathy throughout the spine. Scattered at least mild neural foraminal stenosis. Tubing projects over the spine. Right upper quadrant course dissecting clips. IMPRESSION: 1. No acute fracture. 2. Mild multilevel disc degeneration. [facility], , 02/23/2024 5:18 PM
[2024-02-23] MEDS: traMADol 50 MG TAB PO STA (20:05)
[2024-02-23] MEDS: traMADol 50 MG STARTER PACK 3 TAB BTL PO STA (20:05)
[2024-02-23] MEDS: Acetaminophen-Codeine 300-30mg TAB PO STA (20:07)
[2024-02-23] MEDS: ACET/COD 300 MG/30 MG STARTER PACK 6 TAB BTL PO STA (20:08)
== END 2024-02-23 20:37 | disposition home or self-care (01) ==
LOC: EC 15:31
DX: S39.012A Strain of muscle, fascia and tendon of lower back, initial encounter (principal); Z88.6 Allergy status to analgesic agent; X58.XXXA Exposure to other specified factors, initial encounter
CPT/HCPCS: 72110; 99283

== ENCOUNTER 2024-03-02 18:12 | Emergency (ER) | payer OTHER ==
--- NOTE | 2024-03-02 18:46 | ED ---
SOB HPI - General Source: patient, RN notes reviewed Mode of arrival: ambulatory Limitations: no limitations - History of Present Illness MD Complaint: shortness of breath, cough Onset/Timin -: days(s) <Aram Hurst - Last Filed: 03/02/24 18:45> <Ross Glez - Last Filed: 03/08/24 23:03> - General Chief Complaint: Shortness of Breath Stated Complaint: cough chest pressure MITCHEL Time Seen by Provider: 03/02/24 18:28 - History of Present Illness Initial Comments: Quick note: This is a 33-year-old female presenting with shortness of breath, wet cough, fatigue and bodyaches x 2 days. Patient endorses use of DayQuil with minimal relief. Denies recent sick contacts. Patient denies fever, hemoptysis, chest pain. (Aram Hurst) 33-year-old female presenting with chief complaint of cough. Cough started 2 days ago. Patient admits to some shortness of breath as well as fatigue and generalized bodyaches. States that this is a "wet" cough. She used DayQuil earlier today for symptoms. No fever, chills, chest pain, nausea, vomiting, abdominal pain, hemoptysis. (Ross Glez) - Related Data Home Medications Medication Instructions Recorded Confirmed Dicyclomine [Bentyl] 10 mg PO QID PRN 12/25/23 12/25/23 Hyoscyamine Sulfate [Levsin] 0.125 mg PO Q8H PRN 12/25/23 12/25/23 Previous Rx's Medication Instructions Recorded Cephalexin [Keflex] 500 mg PO Q6HR #28 cap 03/07/24 Allergies Allergy/AdvReac Type Severity Reaction Status Date / Time aspirin AdvReac gi bleeds Verified 03/07/24 22:11 ketorolac [From Toradol] AdvReac GI bleeds Verified 03/07/24 22:11 NSAIDS (Non-Steroidal AdvReac given her Verified 03/07/24 22:11 Anti-Inflamma a GI bleed in the past Review of Systems ROS Other: All systems not noted in ROS Statement are negative. <Aram Hurst - Last Filed: 03/02/24 18:45> ROS Other: All systems not noted in ROS Statement are negative. <Ross Glez - Last Filed: 03/08/24 23:03> ROS Statement: Those systems with pertinent positive or pertinent negative responses have been documented in the HPI. Past Medical History Past Medical History: Diabetes Mellitus, Fibromyalgia, GERD/Reflux, GI Bleed, Hyperlipidemia, Hypertension Additional Past Medical History / Comment(s): gallstones, kidney stones, IBS, migraines, tachycardia, Martine- Guevara tear, blood clot, pesudo tumor cerebrea History of Any Multi-Drug Resistant Organisms: None Reported Past Surgical History: Section, Cholecystectomy, Tubal Ligation Additional Past Surgical History / Comment(s): neck biopsy (lymph node ) d&c; LP shunt May 13 2019 feb 0211/2019 -revision, stent/ lithotripsy on left, cystoscopy, shunt revises july 28. Past Anesthesia/Blood Transfusion Reactions: No Reported Reaction Past Psychological History: Anxiety, Bipolar, Depression, PTSD Smoking Status: Vaper Past Alcohol Use History: Rare Past Drug Use History: Marijuana - Past Family History Mother Family Medical History: Diabetes Mellitus, Hyperlipidemia, Hypertension, Myocardial Infarction ([place]) Additional Family Medical History / Comment(s): [place] X 3 Father Family Medical History: Congestive Heart Failure (CHF), Hyperlipidemia, Hypertension, Myocardial Infarction ([place]) Additional Family Medical History / Comment(s): mi x 3 Son(s) Family Medical History: No Reported History <Aram Hurst - Last Filed: 03/02/24 18:45> General Exam Limitations: no limitations <Simba Hurstling Filed: 03/02/24 18:45> General appearance: alert, in no apparent distress Head exam: Present: atraumatic, normocephalic, normal inspection Eye exam: Present: normal appearance, EOMI ENT exam: Present: normal oropharynx, mucous membranes moist Neck exam: Present: normal inspection. Absent: meningismus Respiratory exam: Present: normal lung sounds bilaterally. Absent: respiratory distress, wheezes, rales, rhonchi, stridor Cardiovascular Exam: Present: regular rate, normal rhythm, normal heart sounds. Absent: systolic murmur, diastolic murmur, rubs, gallop, clicks Extremities exam: Absent: pedal edema Neurological exam: Present: alert, oriented X3 Psychiatric exam: Present: normal affect, normal mood Skin exam: Present: warm, dry <Ross Glez - Last Filed: 03/08/24 23:03> - General Exam Comments Initial Comments: Visual Physical Exam Vital signs reviewed General: Well-appearing, nontoxic, no acute distress. Head: Normocephalic, atraumatic Eyes: PERRLA, EOMI ENT: Airway patent Chest: Nonlabored breathing Skin: No visual rash, normal skin tone Neuro: Alert and oriented 3 Musculoskeletal: No gross abnormalities (Aram Hurst) Course Vital Signs 03/02/24 03/02/24 18:30 21:44 Temperature 98.3 F 98.2 F Pulse Rate 88 92 Respiratory 20 17 Rate Blood Pressure 143/76 144/93 O2 Sat by Pulse 99 96 Oximetry Medical Decision Making <Aram Hurst - Last Filed: 03/02/24 18:45> <Ross Glez - Last Filed: 03/08/24 23:03> - Medical Decision Making I completed the quick note portion of this chart signed NANCY White (Aram Hurst) Was pt. sent in by a medical professional or institution ([facility], LEGAL ADVISER, urgent care, hospital, or alf...) When possible be specific @ -No Did you speak to anyone other than the patient for history (EMS, parent, family, police, friend...)? What history was obtained from this source @ -No Did you review nursing and triage notes (agree or disagree)? Why? @ -I reviewed and agree with nursing and triage notes Were old charts reviewed (outside hosp., previous admission, EMS record, old EKG, old radiological studies, urgent care reports/EKG's, alf records)? Report findings @ -No old charts were reviewed Differential Diagnosis (chest pain, altered mental status, abdominal pain women, abdominal pain men, vaginal bleeding, weakness, fever, dyspnea, syncope, headache, dizziness, GI bleed, back pain, seizure, CVA, palpatations, mental health, musculoskeletal)? @ -MDM Differential Dyspnea: Coronary syndrome, arrhythmia, tamponade, asthma, COPD, pulmonary embolism, pneumonia, pneumothorax, pulmonary effusion, anaphylaxis, diabetic ketoacidosis, flailed chest, pulmonary contusion, diaphragmatic rupture, anemia, neuromuscular this is not meant to be an all-inclusive list. EKG interpreted by me (3pts min.). @ -EKG shows sinus rhythm ventricular rate 81. AR interval 137. QRS 90. QT 370. QTc 407. X-rays interpreted by me (1pt min.). @ -Chest x-ray shows no acute process CT interpreted by me (1pt min.). @ -None done U/S interpreted by me (1pt. min.). @ -None done What testing was considered but not performed or refused? (CT, X-rays, U/S, labs)? Why? @ -None What meds were considered but not given or refused? Why? @ -None Did you discuss the management of the patient with other professionals (professionals i.e. Dr., PA, LEGAL ADVISER, lab, RT, psych nurse, social services director, corsage maker, teacher, mortgage loan officer, rn case management)? Give summary @ -No Was smoking cessation discussed for >3mins.? @ -No Was critical care preformed (if so, how long)? @ -No Were there social determinants of health that impacted care today? How? (Homelessness, low income, unemployed, alcoholism, drug addiction, transportation, low edu. Level, literacy, decrease access to med. care, skilled nursing, rehab)? @ -No Was there de-escalation of care discussed even if they declined (Discuss DNR or withdrawal of care, Hospice)? DNR status @ -No What co-morbidities impacted this encounter? (DM, HTN, Smoking, COPD, CAD, Cancer, CVA, ARF, Chemo, Hep., AIDS, mental health diagnosis, sleep apnea, morbid obesity)? @ -None Was patient admitted / discharged? Hospital course, mention meds given and route, prescriptions, significant lab abnormalities, going to OR and other pertinent info. @ -33-year-old female presenting with chief complaint of cough shortness of breath fatigue and generalized bodyaches. History and physical examination are conducted. Heart and lungs are clear to auscultation with no lower extremity swelling. Negative for influenza, RSV, COVID. Chest x-ray shows no acute process. Patient is educated on today's findings and supportive management at home. Discharged. Follow-up with PCP. Report back to ER with any new or worsening symptoms. Discussed return parameters and answered all questions. Patient conveyed verbal understanding and agreed to the plan. I discussed this case in detail with my attending Dr. Roskopp Undiagnosed new problem with uncertain prognosis? @ -No Drug Therapy requiring intensive monitoring for toxicity (Heparin, Nitro, Insulin, Cardizem)? @ -No Were any procedures done? @ -No Diagnosis/symptom? @ -URI Acute, or Chronic, or Acute on Chronic? @ -Acute Uncomplicated (without systemic symptoms) or Complicated (systemic symptoms)? @ -Uncomplicated Side effects of treatment? @ -No Exacerbation, Progression, or Severe Exacerbation? @ -No Poses a threat to life or bodily function? How? (Chest pain, [place], [place], pneumonia, PE, COPD, DKA, ARF, appy, cholecystitis, CVA, Diverticulitis, Homicidal, Suicidal, threat to staff... and all critical care pts) @ -Unlikely (Ross Glez) - Lab Data Lab Results 03/02/24 Range/Units 20:16 Influenza Type A (PCR) Not Detected (Not Detectd) Influenza Type B (PCR) Not Detected (Not Detectd) RSV (PCR) Not Detected (Not Detectd) SARS-CoV-2 (PCR) Not Detected (Not Detectd) Disposition <Aram Hurst - Last Filed: 03/02/24 18:45> Is patient prescribed a controlled substance at d/c from ED?: No Time of Disposition: 21:33 <Ross Glez - Last Filed: 03/08/24 23:03> Clinical Impression: URI (upper respiratory infection) Disposition: HOME SELF-CARE Condition: Good Instructions (If sedation given, give patient instructions): Upper Respiratory Infection (ED) Additional Instructions: Follow-up with PCP. Report back to ER with any new or worsening symptoms. Referrals: None,Stated [Primary Care Provider] - 1-2 days Nicolás Maier MD [STAFF PHYSICIAN] - 1-2 days
--- NOTE | 2024-03-02 19:50 | XR ---
EXAMINATION TYPE: XR chest 2V DATE OF EXAM: 03/02/2024 COMPARISON: 10/14/2023 INDICATION: Cough shortness of breath and chest pressure TECHNIQUE: Frontal and lateral views of the chest are obtained. FINDINGS: The heart size is normal. The pulmonary vasculature is normal. The lungs are clear. IMPRESSION: 1. No acute pulmonary process. [facility], Workstation: [facility], 03/02/2024 7:47 PM
[2024-03-02 21:45] VITALS: BP 144/93; PULSE 92; RESP 17; TEMP 98.2
== END 2024-03-02 21:49 | disposition home or self-care (01) ==
LOC: EC 18:12
DX: J06.9 Acute upper respiratory infection, unspecified (principal); F17.290 Nicotine dependence, other tobacco product, uncomplicated; Z88.6 Allergy status to analgesic agent; Z88.8 Allergy status to other drugs, medicaments and biological substances
CPT/HCPCS: 71046; 87636; 99285

== ENCOUNTER 2024-03-04 15:47 | Emergency (ER) | payer OTHER ==
[2024-03-04 16:08] VITALS: TEMP 98.2
--- NOTE | 2024-03-04 16:40 | ED ---
Back Pain HPI - General Chief Complaint: Back Pain/Injury Stated Complaint: back pain Time Seen by Provider: 03/04/24 16:10 Source: patient, RN notes reviewed Mode of arrival: ambulatory Limitations: no limitations - History of Present Illness Initial Comments: This is a 33-year-old female who presents to the emergency department for right flank pain. States that it started yesterday. She noticed this occurring after she would urinate yesterday. However, today the pain became more constant. Denies any nausea or vomiting. Pain radiates into the right lower quadrant. States that she has a history of kidney stones in 2019 and symptoms feel simil ar. She required a lithotripsy at that time. Denies any changes in bowel habits. Denies any fevers or chills. Unsure if she has blood in her urine as she is on her period. MD Complaint: back pain - Related Data Home Medications Medication Instructions Recorded Confirmed Dicyclomine [Bentyl] 10 mg PO QID PRN 12/25/23 12/25/23 Hyoscyamine Sulfate [Levsin] 0.125 mg PO Q8H PRN 12/25/23 12/25/23 Allergies Allergy/AdvReac Type Severity Reaction Status Date / Time aspirin AdvReac gi bleeds Verified 03/04/24 16:08 ketorolac [From Toradol] AdvReac GI bleeds Verified 03/04/24 16:08 NSAIDS (Non-Steroidal AdvReac given her Verified 03/04/24 16:08 Anti-Inflamma a GI bleed in the past Review of Systems ROS Statement: Those systems with pertinent positive or pertinent negative responses have been documented in the HPI. ROS Other: All systems not noted in ROS Statement are negative. Past Medical History Past Medical History: Diabetes Mellitus, Fibromyalgia, GERD/Reflux, GI Bleed, Hyperlipidemia, Hypertension Additional Past Medical History / Comment(s): gallstones, kidney stones, IBS, migraines, tachycardia, Martine- Guevara tear, blood clot, pesudo tumor cerebrea History of Any Multi-Drug Resistant Organisms: None Reported Past Surgical History: Section, Cholecystectomy, Tubal Ligation Additional Past Surgical History / Comment(s): neck biopsy (lymph node ) d&c; LP shunt May 13 2019 feb 0211/2019 -revision, stent/ lithotripsy on left, cystoscopy, shunt revises july 28. Past Anesthesia/Blood Transfusion Reactions: No Reported Reaction Past Psychological History: Anxiety, Bipolar, Depression, PTSD Smoking Status: Vaper Past Alcohol Use History: Rare Past Drug Use History: Marijuana - Past Family History Mother Family Medical History: Diabetes Mellitus, Hyperlipidemia, Hypertension, Myocardial Infarction ([place]) Additional Family Medical History / Comment(s): [place] X 3 Father Family Medical History: Congestive Heart Failure (CHF), Hyperlipidemia, Hypertension, Myocardial Infarction ([place]) Additional Family Medical History / Comment(s): mi x 3 Son(s) Family Medical History: No Reported History General Exam Limitations: no limitations General appearance: alert, in no apparent distress Head exam: Present: atraumatic, normocephalic, normal inspection Respiratory exam: Present: normal lung sounds bilaterally. Absent: respiratory distress, wheezes, rales, rhonchi, stridor Cardiovascular Exam: Present: regular rate, normal rhythm, normal heart sounds. Absent: systolic murmur, diastolic murmur, rubs, gallop, clicks GI/Abdominal exam: Present: soft, tenderness (RLQ), normal bowel sounds. Absent: distended, guarding, rebound, rigid Back exam: Present: CVA tenderness (R). Absent: CVA tenderness (L) Neurological exam: Present: alert, oriented X3, CN II-XII intact Psychiatric exam: Present: normal affect, normal mood Skin exam: Present: warm, dry, intact, normal color. Absent: rash Course Vital Signs 03/04/24 03/04/24 16:05 18:28 Temperature 98.2 F Pulse Rate 94 75 Respiratory 20 18 Rate Blood Pressure 131/81 105/68 O2 Sat by Pulse 99 97 Oximetry Medical Decision Making - Medical Decision Making This is a 33 year old female who presents to the emergency department for right flank pain. Was pt. sent in by a medical professional or institution? @ -No Did you speak to anyone other than the patient for history? @ -No Did you review nursing and triage notes? @ -Yes, and I agree, it is accurate with regards to the patient's symptoms. Were old charts reviewed? @ -No Differential Diagnosis? @ -Differential Flank Pain: UTI, pyelonephritis, kidney stone, musculoskeletal, pancreatitis, cholecystitis, this is not meant to be an all-inclusive list. EKG interpreted by me (3pts min.)? @ -Not obtained X-rays interpreted by me (1pt min.)? @ -Not obtained CT interpreted by me (1pt min.)? @ -CT scan of the abdomen and pelvis obtained. My interpretation identifies no evidence of a ureteral calculus. U/S interpreted by me (1pt. min.)? @ -Not obtained What testing was considered but not performed? (CT, X-rays, U/S, labs)? Why? @ -None What meds were considered but not given? Why? @ -None Did you discuss the management of the patient with other professionals? @ -No Did you reconcile home meds? @ -No Was smoking cessation discussed for >3mins.? @ -No Was critical care preformed (if so, how long)? @ -No Were there social determinants of health that impacted care today? How? (Homelessness, low income, unemployed, alcoholism, drug addiction, tra nsportation, low edu. Level, literacy, decrease access to med. care, fpc, rehab)? @ -No Was there de-escalation of care discussed even if they declined? (Discuss DNR or withdrawal of care, Hospice)? @ -No What co-morbidities impacted this encounter? (DM, HTN, Smoking, COPD, CAD, Cancer, CVA, Hep., AIDS, mental health diagnosis, sleep apnea, morbid obesity)? @ -DM, kidney stones, fibromyalgia Was patient admitted / discharged? @ -Discharged. Lab work unremarkable. Urinalysis contains a large amount of blood, however she is on her period. Urine sent for culture. CT scan of the abdomen and pelvis reveals no evidence of a ureteral calculus or other acute process. Symptoms managed in the emergency department. Symptoms may be musculoskeletal in nature. She could also have a UTI as she did have some bacteria in her urine, however it was not overtly suggestive of this. Will culture the urine and contact the patient if antibiotics are indicated. Otherwise advised to continue with [id number] Tylenol and follow-up with her primary care provider. Patient discharged home in stable condition. Case discussed with ED attending Dr. Osman. Return precautions reviewed in depth, the patient is instructed to return to the emergency department with any new, worsening, or concerning symptoms. Patient verbalized understanding. Undiagnosed new problem with uncertain prognosis? @ -None Drug Therapy requiring intensive monitoring for toxicity (Heparin, Nitro, Insulin, Cardizem)? @ -None Were any procedures done? @ -None Diagnosis/symptom? @ -Right flank pain Acute, or Chronic, or Acute on Chronic? @ -Acute Uncomplicated (without systemic symptoms) or Complicated (systemic symptoms)? @ -Uncomplicated Side effects of treatment? @ -None Exacerbation, Progression, or Severe Exacerbation] @ -Not applicable Poses a threat to life or bodily function? @ -No - Lab Data Result diagrams: 03/04/24 16:50 03/04/24 16:50 Lab Results 03/04/24 03/04/24 03/04/24 Range/Units 16:50 16:50 16:50 WBC 10.3 (3.8-10.6) k/uL RBC 4.50 (3.80-5.40) m/uL Hgb 12.3 (11.4-16.0) gm/dL Hct 37.8 (34.0-46.0) % MCV 84.0 (80.0-100.0) fL MCH 27.3 (25.0-35.0) pg MCHC 32.6 (31.0-37.0) g/dL RDW 14.0 (11.5-15.5) % Plt Count 318 (150-450) k/uL MPV 6.7 Neutrophils % 57 % Lymphocytes % 26 % Monocytes % 4 % Eosinophils % 11 % Basophils % 1 % Neutrophils # 5.8 (1.3-7.7) k/uL Lymphocytes # 2.7 (1.0-4.8) k/uL Monocytes # 0.4 (0-1.0) k/uL Eosinophils # 1.1 H (0-0.7) k/uL Basophils # 0.1 (0-0.2) k/uL Sodium (137-145) mmol/L Potassium (3.5-5.1) mmol/L Chloride (98-107) mmol/L Carbon Dioxide (22-30) mmol/L Anion Gap mmol/L BUN (7-17) mg/dL Creatinine (0.52-1.04) mg/dL Est GFR (CKD-EPI)AfAm (>60 ml/min/1.73 sqM) Est GFR (CKD-EPI)NonAf (>60 ml/min/1.73 sqM) Glucose (74-99) mg/dL Plasma Lactic Acid Darnell (0.7-2.0) mmol/L Calcium (8.4-10.2) mg/dL Total Bilirubin (0.2-1.3) mg/dL AST (14-36) U/L ALT (4-34) U/L Alkaline Phosphatase (38-126) U/L Total Protein (6.3-8.2) g/dL Albumin (3.5-5.0) g/dL Urine Color Light Yellow Urine Appearance Cloudy H (Clear) Urine pH 7.0 (5.0-8.0) Ur Specific [place] 1.030 (1.001-1.035) Urine Protein Trace H (Negative) Urine Glucose (UA) Negative (Negative) Urine Ketones Negative (Negative) Urine Blood Large H (Negative) Urine Nitrite Negative (Negative) Urine Bilirubin Negative (Negative) Urine Urobilinogen <2.0 (<2.0) mg/dL Ur Leukocyte Esterase Small H (Negative) Urine RBC >182 H (0-5) /hpf Urine WBC 35 H (0-5) /hpf Ur Squamous Epith Cells 2 (0-4) /hpf Triple Phos Crystals Rare H (None) /hpf Urine Bacteria Rare H (None) /hpf Urine Mucus Occasional H (None) /hpf Urine HCG, Qual Not Detected (Not Detectd) 03/04/24 03/04/24 Range/Units 16:50 16:50 WBC (3.8-10.6) k/uL RBC (3.80-5.40) m/uL Hgb (11.4-16.0) gm/dL Hct (34.0-46.0) % MCV (80.0-100.0) fL MCH (25.0-35.0) pg MCHC (31.0-37.0) g/dL RDW (11.5-15.5) % Plt Count (150-450) k/uL MPV Neutrophils % % Lymphocytes % % Monocytes % % Eosinophils % % Basophils % % Neutrophils # (1.3-7.7) k/uL Lymphocytes # (1.0-4.8) k/uL Monocytes # (0-1.0) k/uL Eosinophils # (0-0.7) k/uL Basophils # (0-0.2) k/uL Sodium 141 (137-145) mmol/L Potassium 3.9 (3.5-5.1) mmol/L Chloride 108 H (98-107) mmol/L Carbon Dioxide 27 (22-30) mmol/L Anion Gap 6 mmol/L BUN 15 (7-17) mg/dL Creatinine 0.70 (0.52-1.04) mg/dL Est GFR (CKD-EPI)AfAm >90 (>60 ml/min/1.73 sqM) Est GFR (CKD-EPI)NonAf >90 (>60 ml/min/1.73 sqM) Glucose 100 H (74-99) mg/dL Plasma Lactic Acid Darnell 1.3 (0.7-2.0) mmol/L Calcium 9.0 (8.4-10.2) mg/dL Total Bilirubin 0.4 (0.2-1.3) mg/dL AST 25 (14-36) U/L ALT 41 H (4-34) U/L Alkaline Phosphatase 97 (38-126) U/L Total Protein 6.4 (6.3-8.2) g/dL Albumin 3.8 (3.5-5.0) g/dL Urine Color Urine Appearance (Clear) Urine pH (5.0-8.0) Ur Specific [place] (1.001-1.035) Urine Protein (Negative) Urine Glucose (UA) (Negative) Urine Ketones (Negative) Urine Blood (Negative) Urine Nitrite (Negative) Urine Bilirubin (Negative) Urine Urobilinogen (<2.0) mg/dL Ur Leukocyte Esterase (Negative) Urine RBC (0-5) /hpf Urine WBC (0-5) /hpf Ur Squamous Epith Cells (0-4) /hpf Triple Phos Crystals (None) /hpf Urine Bacteria (None) /hpf Urine Mucus (None) /hpf Urine HCG, Qual (Not Detectd) - Radiology Data Radiology results: report reviewed, image reviewed Disposition Clinical Impression: Mid back pain Disposition: HOME SELF-CARE Instructions (If sedation given, give patient instructions): Flank Pain (ED) Additional Instructions: Return to the emergency department with any new, worsening, or concerning symptoms. Follow up with your primary care provider in 1-2 days. Is patient prescribed a controlled substance at d/c from ED?: No Referrals: None,Stated [Primary Care Provider] - 1-2 days Time of Disposition: 18:20
[2024-03-04] MEDS: SODIUM CHLORIDE 0.9% 1,000 ML IV STA (16:53)
[2024-03-04] MEDS: HYDROmorphone 1 MG/ML 1 ML SYRINGE IVP STA ×2 (16:53→17:56)
[2024-03-04 16:58] LABS: Basophils # (A) 0.1 k/uL (0-0.2); Basophils % (A) 1 %; Eosinophils # (A) 1.1 k/uL (0-0.7); Eosinophils % (A) 11 %; HCT 37.8 % (34.0-46.0); HGB 12.3 gm/dL (11.4-16.0); Lymphocytes # (A) 2.7 k/uL (1.0-4.8); Lymphocytes % (A) 26 %; MCH 27.3 pg (25.0-35.0); MCHC 32.6 g/dL (31.0-37.0); Mean Platelet Volume 6.7; Monocytes # (A) 0.4 k/uL (0-1.0); Monocytes % (A) 4 %; Neutrophils # (A) 5.8 k/uL (1.3-7.7); Neutrophils % (A) 57 %; Platelet Count 318 k/uL (150-450); WBC 10.3 k/uL (3.8-10.6)
[2024-03-04 17:13] LABS: ALT 41 U/L (4-34); AST 25 U/L (14-36); African American GFR (CKD) >90 (>60 ml/min/1.73 sqM); Albumin 3.8 g/dL (3.5-5.0); Alkaline Phosphatase 97 U/L (38-126); Anion Gap 6 mmol/L; Blood Urea Nitrogen 15 mg/dL (7-17); Carbon Dioxide 27 mmol/L (22-30); Chloride 108 mmol/L (98-107); Glucose 100 mg/dL (74-99); Non-African American GFR(CKD) >90 (>60 ml/min/1.73 sqM); Potassium 3.9 mmol/L (3.5-5.1); Sodium 141 mmol/L (137-145); Total Bilirubin 0.4 mg/dL (0.2-1.3); Total Protein 6.4 g/dL (6.3-8.2)
[2024-03-04 17:21] LABS: Appearance,Urine Cloudy (Clear); Bacteria,Urine Rare /hpf; Bilirubin,Urine Negative (Negative); Blood,Urine Large (Negative); Color,Urine Light Yellow; Glucose,Urine (UA) Negative (Negative); Ketones,Urine Negative (Negative); Leukocyte Esterase,Urine Small (Negative); Mucus,Urine Occasional /hpf; Nitrite,Urine Negative (Negative); Protein,Urine Trace (Negative); RBC,Urine >182 /hpf (0-5); Squamous Epithelial Cell,Urine 2 /hpf (0-4); Triple Phosphate Crystal,Urine Rare /hpf; Urobilinogen,Urine <2.0 mg/dL (<2.0); WBC,Urine 35 /hpf (0-5)
--- NOTE | 2024-03-04 18:05 | CT ---
EXAMINATION TYPE: CT abdomen pelvis wo con DATE OF EXAM: 03/04/2024 5:54 PM COMPARISON: 12/25/2023 CLINICAL INDICATION: Female, 33 years old with history of Right flank pain, flank pain/ hx renal ston es TECHNIQUE: Axial images were obtained from above the diaphragm to the pubic rami in the axial plane a t 5 mm thick sections. Reconstructed images are reviewed on the computer in the coronal plane. CONTRAST: mL of . Study performed without Oral Contrast DLP: 1576.3 mGycm, Automated exposure control for dose reduction was used. FINDINGS: Limited CT sections are obtained the lung bases. The lung bases are clear. CT ABDOMEN: Catheter crosses the lower chest and abdomen tip within the right hemipelvis but no locul ated fluid collections evident Liver: Normal Spleen: Normal Pancreas: Normal Adrenal glands: The adrenal glands are normal. Gallbladder: Surgically absent Kidneys: No masses are evident. No hydronephrosis is present. No cysts are present. No renal stone s evident. Aorta: Normal Inferior vena cava: Normal. CT PELVIS: Loops of bowel within the abdomen and pelvis are normal. This study is without oral contrast limi ting bowel evaluation. Appendix: Normal as visualized. Urinary bladder: Normal. Genitourinary structures: Uterus is normal. Surgical clips are in the right ligament region. Adnexa a ppear normal. Osseous structures: No suspicious lytic or sclerotic lesions. IMPRESSION: 1. No suspicious changes to account for right flank pain [facility], , 03/04/2024 6:03 PM
[2024-03-04 18:40] VITALS: BP 105/68; PULSE 75; RESP 18
== END 2024-03-04 18:28 | disposition home or self-care (01) ==
LOC: EC 15:47
DX: M54.9 Dorsalgia, unspecified (principal); E11.9 Type 2 diabetes mellitus without complications; N20.0 Calculus of kidney; M79.7 Fibromyalgia; F17.290 Nicotine dependence, other tobacco product, uncomplicated; Z88.9 Allergy status to unspecified drugs, medicaments and biological substances; Z88.6 Allergy status to analgesic agent; Z88.8 Allergy status to other drugs, medicaments and biological substances; Z88.5 Allergy status to narcotic agent
CPT/HCPCS: 36415; 80053; 83605; 85025; 81001; 81025; 87086; 87077; 87186; 74176; 99284; 96374; 96376; 96361; J1171

== ENCOUNTER 2024-03-07 22:01 | Emergency (ER) | payer OTHER ==
--- NOTE | 2024-03-07 22:50 | ED ---
Abdominal Pain HPI - General Chief Complaint: Abdominal Pain Stated Complaint: abd pain Source: patient Mode of arrival: wheelchair Limitations: no limitations - History of Present Illness Initial Comments: This patient is a 34-year-old woman presenting to have evaluation for right flank pain that she stated is been going on for 4 days now. She states she has history of previous kidney stone and this reminds her of that episode. No fever or chills. Patient states she is not concerned about possibility of STI. No change in bowel movements MD Complaint: flank pain Onset/Timin -: days(s) Location: R flank Radiation: RLQ Migration to: no migration Severity: moderate Quality: sharp Consistency: constant Improves With: nothing Worsens With: other (urination) Associated Symptoms: denies other symptoms - Related Data LMP (females 10-50): last week Home Medications Medication Instructions Recorded Confirmed Dicyclomine [Bentyl] 10 mg PO QID PRN 12/25/23 12/25/23 Hyoscyamine Sulfate [Levsin] 0.125 mg PO Q8H PRN 12/25/23 12/25/23 Previous Rx's Medication Instructions Recorded Cephalexin [Keflex] 500 mg PO Q6HR #28 cap 03/07/24 Phenazopyridine [Pyridium] 200 mg PO TID #6 tablet 03/10/24 Acetaminophen-Codeine 300-30mg 1 tab PO Q4H PRN #20 tablet 03/23/24 [Tylenol #3] Amoxic-Pot Clav 875-125Mg 1 tab PO Q12HR #20 tab 03/23/24 [Augmentin 875-125] Cephalexin [Keflex] 500 mg PO Q6HR #28 cap 03/26/24 Allergies Allergy/AdvReac Type Severity Reaction Status Date / Time aspirin AdvReac gi bleeds Verified 03/26/24 02:37 ketorolac [From Toradol] AdvReac GI bleeds Verified 03/26/24 02:37 NSAIDS (Non-Steroidal AdvReac given her Verified 03/26/24 02:37 Anti-Inflamma a GI bleed in the past Review of Systems ROS Statement: Those systems with pertinent positive or pertinent negative responses have been documented in the HPI. ROS Other: All systems not noted in ROS Statement are negative. Constitutional: Denies: fever, chills, weakness Respiratory: Denies: cough, dyspnea Cardiovascular: Denies: chest pain, palpitations, edema Gastrointestinal: Reports: abdominal pain. Denies: nausea, vomiting, diarrhea, melena, hematochezia Genitourinary: Denies: dysuria, hematuria Musculoskeletal: Denies: back pain, arthralgia Skin: Denies: rash Neurological: Denies: headache, weakness, numbness Past Medical History Past Medical History: Diabetes Mellitus, Fibromyalgia, GERD/Reflux, GI Bleed, Hyperlipidemia, Hypertension Additional Past Medical History / Comment(s): gallstones, kidney stones, IBS, migraines, tachycardia, Martine- Guevara tear, blood clot, pesudo tumor cerebrea History of Any Multi-Drug Resistant Organisms: None Reported Past Surgical History: Section, Cholecystectomy, Tubal Ligation Additional Past Surgical History / Comment(s): neck biopsy (lymph node ) d&c; LP shunt May 13 2019 feb 0211/2019 -revision, stent/ lithotripsy on left, cystoscopy, shunt revises july 28. Past Anesthesia/Blood Transfusion Reactions: No Reported Reaction Past Psychological History: Anxiety, Bipolar, Depression, PTSD Smoking Status: Vaper Past Alcohol Use History: Rare Past Drug Use History: Marijuana - Past Family History Mother Family Medical History: Diabetes Mellitus, Hyperlipidemia, Hypertension, Myocardial Infarction ([place]) Additional Family Medical History / Comment(s): [place] X 3 Father Family Medical History: Congestive Heart Failure (CHF), Hyperlipidemia, Hypertension, Myocardial Infarction ([place]) Additional Family Medical History / Comment(s): mi x 3 Son(s) Family Medical History: No Reported History General Exam Limitations: no limitations General appearance: alert, in no apparent distress Head exam: Present: atraumatic, normocephalic Eye exam: Present: normal appearance. Absent: scleral icterus, conjunctival injection Neck exam: Present: normal inspection Respiratory exam: Present: normal lung sounds bilaterally. Absent: respiratory distress, wheezes, rales, rhonchi, stridor, accessory muscle use Cardiovascular Exam: Present: regular rate, normal rhythm, normal heart sounds. Absent: systolic murmur, diastolic murmur, rubs, gallop GI/Abdominal exam: Present: soft. Absent: distended, tenderness, guarding, rebound, rigid, mass Extremities exam: Present: normal inspection, normal capillary refill. Absent: pedal edema, calf tenderness Back exam: Present: normal inspection, paraspinal tenderness. Absent: CVA tenderness (R), CVA tenderness (L), vertebral tenderness Neurological exam: Present: alert Skin exam: Present: warm, dry, intact, normal color. Absent: rash Course Vital Signs 03/07/24 03/08/24 03/08/24 22:11 00:39 01:30 Temperature 98.4 F 98.3 F Pulse Rate 96 86 86 Respiratory 17 18 18 Rate Blood Pressure 121/74 138/68 135/72 O2 Sat by Pulse 97 96 98 Oximetry Medical Decision Making - Medical Decision Making Was pt. sent in by a medical professional or institution (, PA, ESCAPEMENT MATCHER, urgent care, hospital, or shelter...) When possible be specific @ -[No] Did you speak to anyone other than the patient for history (EMS, parent, family, police, friend...)? What history was obtained from this source @ -[No] Did you review nursing and triage notes (agree or disagree)? Why? @ -[I reviewed and agree with nursing and triage notes] Were old charts reviewed (outside hosp., previous admission, EMS record, old EKG, old radiological studies, urgent care reports/EKG's, shelter records)? Report findings @ -[No old charts were reviewed] Differential Diagnosis (chest pain, altered mental status, abdominal pain women, abdominal pain men, vaginal bleeding, weakness, fever, dyspnea, syncope, headache, dizziness, GI bleed, back pain, seizure, CVA, palpatations, mental health, musculoskeletal)? @ -[Differential Abdominal Pain Women: Appendicitis, Cholecystitis, diverticulosis, ischemic bowel, pancreatitis, hepatitis, UTI, gastroenteritis, AAA, incarcerated hernia, bowel obstruction, constipation, inflammatory bowel, hepatitis, peptic ulcer disease, splenic infarction, perforated viscus, vulvitis, ovarian torsion, PID, kidney stone, placenta abruption, this is not meant to be an all-inclusive list EKG interpreted by me (3pts min.). @ -[As above] X-rays interpreted by me (1pt min.). @ -[None done] CT interpreted by me (1pt min.). @ -[None done] U/S interpreted by me (1pt. min.). @ -[None done] What testing was considered but not performed or refused? (CT, X-rays, U/S, labs)? Why? @ -[CT of abdomen and pelvis considered but the patient did have recent CT and this will be held given concerns about radiation exposure What meds were considered but not given or refused? Why? @ -[None] Did you discuss the management of the patient with other professionals (professionals i.e. , PA, ESCAPEMENT MATCHER, lab, RT, psych nurse, social work specialist, radiologic technologist chief, teacher, engineering officer, window caser)? Give summary @ -[No] Was smoking cessation discussed for >3mins.? @ -[No] Was critical care preformed (if so, how long)? @ -[No] Were there social determinants of health that impacted care today? How? (Homelessness, low income, unemployed, alcoholism, drug addiction, transportation, low edu. Level, literacy, decrease access to med. care, [facility], rehab)? @ -[No] Was there de-escalation of care discussed even if they declined (Discuss DNR or withdrawal of care, Hospice)? DNR status @ -[No] What co-morbidities impacted this encounter? (DM, HTN, Smoking, COPD, CAD, Cancer, CVA, ARF, Chemo, Hep., AIDS, mental health diagnosis, sleep apnea, morbid obesity)? @ -[None] Was patient admitted / discharged? Hospital course, mention meds given and route, prescriptions, significant lab abnormalities, going to OR and other pertinent info. @ -[Patient is a 34-year-old woman here with flank pain and found to have f indings consistent with urinary tract infection. The patient is started on antibiotics here. Culture sent. The patient counseled on importance of following with her physician to ensure that infection resolves. Also discussed that should symptoms not improve she should see gynecology to consider possibility of STI. also discussed return parameters. Undiagnosed new problem with uncertain prognosis? @ -[No] Drug Therapy requiring intensive monitoring for toxicity (Heparin, Nitro, Insulin, Cardizem)? @ -[No] Were any procedures done? @ -[No] Diagnosis/symptom? @ -Acute flank pain Urinary tract infection Acute, or Chronic, or Acute on Chronic? @ -[Acute Uncomplicated (without systemic symptoms) or Complicated (systemic symptoms)? @ -[Uncomplicated Side effects of treatment? @ -[No] Exacerbation, Progression, or Severe Exacerbation? @ -[No] Poses a threat to life or bodily function? How? (Chest pain, USA, [place], pneumonia, PE, COPD, DKA, ARF, appy, cholecystitis, CVA, Diverticulitis, Homicidal, Suicidal, threat to staff... and all critical care pts) @ -[Low risk at this point - Lab Data Result diagrams: 03/07/24 23:07 03/07/24 23:07 Lab Results 03/07/24 03/07/24 03/07/24 Range/Units 22:35 22:35 23:07 WBC 8.9 (3.8-10.6) k/uL RBC 4.23 (3.80-5.40) m/uL Hgb 11.4 (11.4-16.0) gm/dL Hct 35.3 (34.0-46.0) % MCV 83.4 (80.0-100.0) fL MCH 26.9 (25.0-35.0) pg MCHC 32.2 (31.0-37.0) g/dL RDW 14.2 (11.5-15.5) % Plt Count 301 (150-450) k/uL MPV 6.9 Neutrophils % 51 % Lymphocytes % 31 % Monocytes % 4 % Eosinophils % 12 % Basophils % 1 % Neutrophils # 4.5 (1.3-7.7) k/uL Lymphocytes # 2.8 (1.0-4.8) k/uL Monocytes # 0.4 (0-1.0) k/uL Eosinophils # 1.0 H (0-0.7) k/uL Basophils # 0.1 (0-0.2) k/uL Sodium (137-145) mmol/L Potassium (3.5-5.1) mmol/L Chloride (98-107) mmol/L Carbon Dioxide (22-30) mmol/L Anion Gap mmol/L BUN (7-17) mg/dL Creatinine (0.52-1.04) mg/dL Est GFR (CKD-EPI)AfAm (>60 ml/min/1.73 sqM) Est GFR (CKD-EPI)NonAf (>60 ml/min/1.73 sqM) Glucose (74-99) mg/dL Calcium (8.4-10.2) mg/dL Total Bilirubin (0.2-1.3) mg/dL AST (14-36) U/L ALT (4-34) U/L Alkaline Phosphatase (38-126) U/L Total Protein (6.3-8.2) g/dL Albumin (3.5-5.0) g/dL Amylase (30-110) U/L Lipase (23-300) U/L Urine Color Light Yellow Urine Appearance Turbid H (Clear) Urine pH 7.0 (5.0-8.0) Ur Specific [place] 1.022 (1.001-1.035) Urine Protein 1+ H (Negative) Urine Glucose (UA) Negative (Negative) Urine Ketones Negative (Negative) Urine Blood Small H (Negative) Urine Nitrite Negative (Negative) Urine Bilirubin Negative (Negative) Urine Urobilinogen <2.0 (<2.0) mg/dL Ur Leukocyte Esterase Large H (Negative) Urine RBC 25 H (0-5) /hpf Urine WBC >182 H (0-5) /hpf Urine WBC Clumps Moderate H (None) /hpf Ur Squamous Epith Cells 2 (0-4) /hpf Urine Bacteria Few H (None) /hpf Urine Mucus Occasional H (None) /hpf Urine HCG, Qual Not Detected (Not Detectd) 03/07/24 Range/Units 23:07 WBC (3.8-10.6) k/uL RBC (3.80-5.40) m/uL Hgb (11.4-16.0) gm/dL Hct (34.0-46.0) % MCV (80.0-100.0) fL MCH (25.0-35.0) pg MCHC (31.0-37.0) g/dL RDW (11.5-15.5) % Plt Count (150-450) k/uL MPV Neutrophils % % Lymphocytes % % Monocytes % % Eosinophils % % Basophils % % Neutrophils # (1.3-7.7) k/uL Lymphocytes # (1.0-4.8) k/uL Monocytes # (0-1.0) k/uL Eosinophils # (0-0.7) k/uL Basophils # (0-0.2) k/uL Sodium 140 (137-145) mmol/L Potassium 4.0 (3.5-5.1) mmol/L Chloride 107 (98-107) mmol/L Carbon Dioxide 28 (22-30) mmol/L Anion Gap 5 mmol/L BUN 12 (7-17) mg/dL Creatinine 0.71 (0.52-1.04) mg/dL Est GFR (CKD-EPI)AfAm >90 (>60 ml/min/1.73 sqM) Est GFR (CKD-EPI)NonAf >90 (>60 ml/min/1.73 sqM) Glucose 176 H (74-99) mg/dL Calcium 8.3 L (8.4-10.2) mg/dL Total Bilirubin 0.3 (0.2-1.3) mg/dL AST 22 (14-36) U/L ALT 31 (4-34) U/L Alkaline Phosphatase 146 H (38-126) U/L Total Protein 5.8 L (6.3-8.2) g/dL Albumin 3.3 L (3.5-5.0) g/dL Amylase 33 (30-110) U/L Lipase 82 (23-300) U/L Urine Color Urine Appearance (Clear) Urine pH (5.0-8.0) Ur Specific [place] (1.001-1.035) Urine Protein (Negative) Urine Glucose (UA) (Negative) Urine Ketones (Negative) Urine Blood (Negative) Urine Nitrite (Negative) Urine Bilirubin (Negative) Urine Urobilinogen (<2.0) mg/dL Ur Leukocyte Esterase (Negative) Urine RBC (0-5) /hpf Urine WBC (0-5) /hpf Urine WBC Clumps (None) /hpf Ur Squamous Epith Cells (0-4) /hpf Urine Bacteria (None) /hpf Urine Mucus (None) /hpf Urine HCG, Qual (Not Detectd) Disposition Clinical Impression: Urinary tract infection Disposition: HOME SELF-CARE Condition: Good Instructions (If sedation given, give patient instructions): Urinary Tract Infection in Women (ED) Prescriptions: Cephalexin [Keflex] 500 mg PO Q6HR #28 cap Is patient prescribed a controlled substance at d/c from ED?: No Referrals: None,Stated [Primary Care Provider] - 1-2 days
[2024-03-07 23:15] LABS: Appearance,Urine Turbid (Clear); Bacteria,Urine Few /hpf; Bilirubin,Urine Negative (Negative); Blood,Urine Small (Negative); Color,Urine Light Yellow; Glucose,Urine (UA) Negative (Negative); Ketones,Urine Negative (Negative); Leukocyte Esterase,Urine Large (Negative); Mucus,Urine Occasional /hpf; Nitrite,Urine Negative (Negative); Protein,Urine 1+ (Negative); RBC,Urine 25 /hpf (0-5); Specific Gravity,Urine 1.022 (1.001-1.035); Squamous Epithelial Cell,Urine 2 /hpf (0-4); Urobilinogen,Urine <2.0 mg/dL (<2.0); WBC,Urine >182 /hpf (0-5)
[2024-03-07] MEDS: HYDROcodone/APAP 5-325MG 1 EACH TAB PO STA (23:15)
[2024-03-07 23:17] LABS: Basophils # (A) 0.1 k/uL (0-0.2); Basophils % (A) 1 %; Eosinophils % (A) 12 %; HCT 35.3 % (34.0-46.0); HGB 11.4 gm/dL (11.4-16.0); Lymphocytes # (A) 2.8 k/uL (1.0-4.8); Lymphocytes % (A) 31 %; MCH 26.9 pg (25.0-35.0); MCHC 32.2 g/dL (31.0-37.0); MCV 83.4 fL (80.0-100.0); Mean Platelet Volume 6.9; Monocytes # (A) 0.4 k/uL (0-1.0); Monocytes % (A) 4 %; Neutrophils # (A) 4.5 k/uL (1.3-7.7); Neutrophils % (A) 51 %; Platelet Count 301 k/uL (150-450); RBC 4.23 m/uL (3.80-5.40); RDW 14.2 % (11.5-15.5); WBC 8.9 k/uL (3.8-10.6)
[2024-03-07 23:40] LABS: ALT 31 U/L (4-34); AST 22 U/L (14-36); African American GFR (CKD) >90 (>60 ml/min/1.73 sqM); Albumin 3.3 g/dL (3.5-5.0); Alkaline Phosphatase 146 U/L (38-126); Amylase 33 U/L (30-110); Anion Gap 5 mmol/L; Blood Urea Nitrogen 12 mg/dL (7-17); Calcium 8.3 mg/dL (8.4-10.2); Carbon Dioxide 28 mmol/L (22-30); Chloride 107 mmol/L (98-107); Glucose 176 mg/dL (74-99); Lipase 82 U/L (23-300); Non-African American GFR(CKD) >90 (>60 ml/min/1.73 sqM); Sodium 140 mmol/L (137-145); Total Bilirubin 0.3 mg/dL (0.2-1.3); Total Protein 5.8 g/dL (6.3-8.2)
[2024-03-08 00:41] VITALS: PULSE 86; RESP 18
[2024-03-08 01:31] VITALS: BP 135/72; TEMP 98.3
== END 2024-03-08 01:30 | disposition home or self-care (01) ==
LOC: EC 22:01
DX: N39.0 Urinary tract infection, site not specified (principal); F17.290 Nicotine dependence, other tobacco product, uncomplicated; Z88.6 Allergy status to analgesic agent; Z88.8 Allergy status to other drugs, medicaments and biological substances
CPT/HCPCS: 36415; 80053; 82150; 83690; 85025; 81001; 81025; 87086; 99284; 96365; J0696

== ENCOUNTER 2024-03-10 18:54 | Emergency (ER) | payer OTHER ==
--- NOTE | 2024-03-10 19:25 | ED ---
Female Urogenital HPI - General Chief complaint: Urogenital Stated complaint: blood in urine/UTI issues Time Seen by Provider: 03/10/24 19:03 Source: patient, RN notes reviewed, old records reviewed Mode of arrival: wheelchair Limitations: no limitations - History of Present Illness Initial comments: 33 year old female presents to the ED with chief complaint of dysuria, hematuria. She was recently seen on 03/07 for the same complaint and received Ciprofloxacin for UTI. She states that she is not menstruating and these symptoms are consistent with when she had a kidney stone in 2019 for which a lithotripsy was performed. Dysuria, cloudy and pink tinged urine accompany her chief complaint however she denies fever, chills, and abdominal pain. Patient had recent CAT scan showing no acute process. Patient denies any chance . - Related Data Home Medications Medication Instructions Recorded Confirmed Dicyclomine [Bentyl] 10 mg PO QID PRN 12/25/23 12/25/23 Hyoscyamine Sulfate [Levsin] 0.125 mg PO Q8H PRN 12/25/23 12/25/23 Previous Rx's Medication Instructions Recorded Cephalexin [Keflex] 500 mg PO Q6HR #28 cap 03/07/24 Phenazopyridine [Pyridium] 200 mg PO TID #6 tablet 03/10/24 Allergies Allergy/AdvReac Type Severity Reaction Status Date / Time aspirin AdvReac gi bleeds Verified 03/10/24 18:57 ketorolac [From Toradol] AdvReac GI bleeds Verified 03/10/24 18:57 NSAIDS (Non-Steroidal AdvReac given her Verified 03/10/24 18:57 Anti-Inflamma a GI bleed in the past Review of Systems ROS Statement: Those systems with pertinent positive or pertinent negative responses have been documented in the HPI. ROS Other: All systems not noted in ROS Statement are negative. Past Medical History Past Medical History: Diabetes Mellitus, Fibromyalgia, GERD/Reflux, GI Bleed, Hyperlipidemia, Hypertension Additional Past Medical History / Comment(s): gallstones, kidney stones, IBS, m igraines, tachycardia, Martine- Guevara tear, blood clot, pesudo tumor cerebrea History of Any Multi-Drug Resistant Organisms: None Reported Past Surgical History: Section, Cholecystectomy, Tubal Ligation Additional Past Surgical History / Comment(s): neck biopsy (lymph node ) d&c; LP shunt May 13 2019 feb 0211/2019 -revision, stent/ lithotripsy on left, cystoscopy, shunt revises july 28. Past Anesthesia/Blood Transfusion Reactions: No Reported Reaction Past Psychological History: Anxiety, Bipolar, Depression, PTSD Smoking Status: Vaper Past Alcohol Use History: Rare Past Drug Use History: Marijuana - Past Family History Mother Family Medical History: Diabetes Mellitus, Hyperlipidemia, Hypertension, Myocardial Infarction ([place]) Additional Family Medical History / Comment(s): [place] X 3 Father Family Medical History: Congestive Heart Failure (CHF), Hyperlipidemia, Hyperten jeremie, Myocardial Infarction ([place]) Additional Family Medical History / Comment(s): mi x 3 Son(s) Family Medical History: No Reported History General Exam Limitations: no limitations General appearance: alert, in no apparent distress Head exam: Present: atraumatic, normocephalic, normal inspection Eye exam: Present: normal appearance, PERRL, EOMI. Absent: scleral icterus, conjunctival injection, periorbital swelling ENT exam: Present: normal exam, mucous membranes moist Neck exam: Present: normal inspection. Absent: tenderness, meningismus, lymphadenopathy Respiratory exam: Present: normal lung sounds bilaterally. Absent: respiratory distress, wheezes, rales, rhonchi, stridor Cardiovascular Exam: Present: regular rate, normal rhythm, normal heart sounds. Absent: systolic murmur, diastolic murmur, rubs, gallop, clicks GI/Abdominal exam: Present: soft, normal bowel sounds. Absent: distended, tenderness, guarding, rebound, rigid Extremities exam: Present: normal inspection, full ROM, normal capillary refill. Absent: tenderness, pedal edema, joint swelling, calf tenderness Back exam: Present: normal inspection Neurological exam: Present: alert, oriented X3, CN II-XII intact Psychiatric exam: Present: normal affect, normal mood Skin exam: Present: warm, dry, intact, normal color. Absent: rash Course Vital Signs 03/10/24 18:55 Temperature 98.5 F Pulse Rate 85 Respiratory 20 Rate Blood Pressure 140/84 O2 Sat by Pulse 98 Oximetry Medical Decision Making - Medical Decision Making Was pt. sent in by a medical professional or institution (, PA, SPOOL WINDER, urgent care, hospital, or residential...) When possible be specific @ -No Did you speak to anyone other than the patient for history (EMS, parent, family, police, friend...)? What history was obtained from this source @ -No Did you review nursing and triage notes (agree or disagree)? Why? @ -I reviewed and agree with nursing and triage notes Were old charts reviewed (outside hosp., previous admission, EMS record, old EKG, old radiological studies, urgent care reports/EKG's, residential records)? Report findings @ -Reviewed CT from 5 days ago showing no acute intra-abdominal process no masses, no kidney stones Differential Diagnosis (chest pain, altered mental status, abdominal pain women, abdominal pain men, vaginal bleeding, weakness, fever, dyspnea, syncope, headache, dizziness, GI bleed, back pain, seizure, CVA, palpatations, mental health, musculoskeletal)? @ -Differential Abdominal Pain Women: Appendicitis, Cholecystitis, diverticulosis, ischemic bowel, pancreatitis, hepatitis, UTI, gastroenteritis, AAA, incarcerated hernia, bowel obstruction, constipation, inflammatory bowel, hepatitis, peptic ulcer disease, splenic infarction, perforated viscus, vulvitis, ovarian torsion, PID, kidney stone, placenta abruption, this is not meant to be an all-inclusive list EKG interpreted by me (3pts min.). @ -None X-rays interpreted by me (1pt min.). @ -None done CT interpreted by me (1pt min.). @ -None done U/S interpreted by me (1pt. min.). @ -None done What testing was considered but not performed or refused? (CT, X-rays, U/S, labs)? Why? @ -None What meds were considered but not given or refused? Why? @ -None Did you discuss the management of the patient with other professionals (professionals i.e. , PA, SPOOL WINDER, lab, RT, psych nurse, social media content specialist, manager supply chain planning, teacher, security public safety officer, showcase trimmer)? Give summary @ -No Was smoking cessation discussed for >3mins.? @ -No Was critical care preformed (if so, how long)? @ -No Were there social determinants of health that impacted care today? How? (Homelessness, low income, unemployed, alcoholism, drug addiction, transportation, low edu. Level, literacy, decrease access to med. care, retirement, rehab)? @ -No Was there de-escalation of care discussed even if they declined (Discuss DNR or withdrawal of care, Hospice)? DNR status @ -No What co-morbidities impacted this encounter? (DM, HTN, Smoking, COPD, CAD, Cancer, CVA, ARF, Chemo, Hep., AIDS, mental health diagnosis, sleep apnea, morbid obesity)? @ -None Was patient admitted / discharged? Hospital course, mention meds given and route, prescriptions, significant lab abnormalities, going to OR and other pertinent info. @ -Discharge patient presented for dysuria. Patient urine culture did not reveal any signs of acute bacterial infection grew out staph. Patient may have some irritation was given Pyridium will be discharged in stable condition. Undiagnosed new problem with uncertain prognosis? @ -No Drug Therapy requiring intensive monitoring for toxicity (Heparin, Nitro, Insulin, Cardizem)? @ -No Were any procedures done? @ -No Diagnosis/symptom? @ -Dysuria, hematuria Acute, or Chronic, or Acute on Chronic? @ -Acute Uncomplicated (without systemic symptoms) or Complicated (systemic symptoms)? @ -Uncomplicated Side effects of treatment? @ -No Exacerbation, Progression, or Severe Exacerbation? @ -No Poses a threat to life or bodily function? How? (Chest pain, [place], [place], pneumonia, PE, COPD, DKA, ARF, appy, cholecystitis, CVA, Diverticulitis, Homicidal, Suicidal, threat to staff... and all critical care pts) @ -No - Lab Data Lab Results 03/10/24 Range/Units 19:25 Urine Color Light Yellow Urine Appearance Cloudy H (Clear) Urine pH 5.5 (5.0-8.0) Ur Specific [place] 1.024 (1.001-1.035) Urine Protein Negative (Negative) Urine Glucose (UA) Negative (Negative) Urine Ketones Negative (Negative) Urine Blood Small H (Negative) Urine Nitrite Negative (Negative) Urine Bilirubin Negative (Negative) Urine Urobilinogen <2.0 (<2.0) mg/dL Ur Leukocyte Esterase Negative (Negative) Urine RBC <1 (0-5) /hpf Urine WBC 2 (0-5) /hpf Ur Squamous Epith Cells 8 H (0-4) /hpf Urine Mucus Rare H (None) /hpf Disposition Clinical Impression: Dysuria Disposition: HOME SELF-CARE Condition: Stable Additional Instructions: Please return to the Emergency Department if symptoms worsen or any other concerns. Prescriptions: Phenazopyridine [Pyridium] 200 mg PO TID #6 tablet Is patient prescribed a controlled substance at d/c from ED?: No If prescribed controlled substance>3 days was MAPS reviewed?: No Referrals: None,Stated [Primary Care Provider] - 1-2 days Time of Disposition: 19:55
[2024-03-10] MEDS: ACETAMINOPHEN TAB 500 MG TAB PO STA (19:35)
[2024-03-10 19:47] LABS: Appearance,Urine Cloudy (Clear); Bilirubin,Urine Negative (Negative); Blood,Urine Small (Negative); Color,Urine Light Yellow; Glucose,Urine (UA) Negative (Negative); Ketones,Urine Negative (Negative); Leukocyte Esterase,Urine Negative (Negative); Mucus,Urine Rare /hpf; Nitrite,Urine Negative (Negative); PH, Urine 5.5 (5.0-8.0); Protein,Urine Negative (Negative); RBC,Urine <1 /hpf (0-5); Specific Gravity,Urine 1.024 (1.001-1.035); Squamous Epithelial Cell,Urine 8 /hpf (0-4); Urobilinogen,Urine <2.0 mg/dL (<2.0); WBC,Urine 2 /hpf (0-5)
[2024-03-10 20:08] VITALS: BP 134/79; PULSE 71; RESP 18; TEMP 98.1
[2024-03-10] MEDS: PHENAZOPYRIDINE 200 MG TAB PO STA (20:08)
[2024-03-11 12:23] LABS: C. trachomatis,PCR Negative (Negative)
[2024-03-11 12:36] LABS: N. gonorrhoeae,PCR Negative (Negative)
== END 2024-03-10 20:13 | disposition home or self-care (01) ==
LOC: EC 18:54
DX: R30.0 Dysuria (principal); R31.9 Hematuria, unspecified; F17.290 Nicotine dependence, other tobacco product, uncomplicated; Z88.6 Allergy status to analgesic agent; Z88.8 Allergy status to other drugs, medicaments and biological substances; Z90.49 Acquired absence of other specified parts of digestive tract
CPT/HCPCS: 81001; 87491; 87591; 99283

== ENCOUNTER 2024-03-23 18:20 | Emergency (ER) | payer OTHER ==
[2024-03-23 18:30] VITALS: RESP 18
--- NOTE | 2024-03-23 18:53 | ED ---
ENT HPI - General Chief complaint: Dental/Oral Stated complaint: BROKEN TOOTH - PAIN Time Seen by Provider: 03/23/24 18:40 Source: patient, RN notes reviewed Mode of arrival: ambulatory Limitations: no limitations - History of Present Illness Initial comments: 34-year-old female presenting to the ER with chief complaint of dental pain x 1 day. States she was eating something crunchy when she felt a crack in her left upper molar and believes her filling fell out. Patient has had pain since then that radiates to the left cheek and the left ear. Patient is able to swallow and tolerate orals. Denies fever, chills, nausea, vomiting. - Related Data Home Medications Medication Instructions Recorded Confirmed Dicyclomine [Bentyl] 10 mg PO QID PRN 12/25/23 12/25/23 Hyoscyamine Sulfate [Levsin] 0.125 mg PO Q8H PRN 12/25/23 12/25/23 Previous Rx's Medication Instructions Recorded Cephalexin [Keflex] 500 mg PO Q6HR #28 cap 03/07/24 Phenazopyridine [Pyridium] 200 mg PO TID #6 tablet 03/10/24 Acetaminophen-Codeine 300-30mg 1 tab PO Q4H PRN #20 tablet 03/23/24 [Tylenol #3] Amoxic-Pot Clav 875-125Mg 1 tab PO Q12HR #20 tab 03/23/24 [Augmentin 875-125] Allergies Allergy/AdvReac Type Severity Reaction Status Date / Time aspirin AdvReac gi bleeds Verified 03/23/24 18:27 ketorolac [From Toradol] AdvReac GI bleeds Verified 03/23/24 18:27 NSAIDS (Non-Steroidal AdvReac given her Verified 03/23/24 18:27 Anti-Inflamma a GI bleed in the past Review of Systems ROS Statement: Those systems with pertinent positive or pertinent negative responses have been documented in the HPI. ROS Other: All systems not noted in ROS Statement are negative. Past Medical History Past Medical History: Diabetes Mellitus, Fibromyalgia, GERD/Reflux, GI Bleed, Hyperlipidemia, Hypertension Additional Past Medical History / Comment(s): gallstones, kidney stones, IBS, migraines, tachycardia, Martine- Guevara tear, blood clot, pesudo tumor cerebrea History of Any Multi-Drug Resistant Organisms: None Reported Past Surgical History: Section, Cholecystectomy, Tubal Ligation Additional Past Surgical History / Comment(s): neck biopsy (lymph node ) d&c; LP shunt May 13 2019 feb 0211/2019 -revision, stent/ lithotripsy on left, cystoscopy, shunt revises july 28. Past Anesthesia/Blood Transfusion Reactions: No Reported Reaction Past Psychological History: Anxiety, Bipolar, Depression, PTSD Smoking Status: Vaper Past Alcohol Use History: Rare Past Drug Use History: Marijuana - Past Family History Mother Family Medical History: Diabetes Mellitus, Hyperlipidemia, Hypertension, Myocardial Infarction ([place]) Additional Family Medical History / Comment(s): [place] X 3 Father Family Medical History: Congestive Heart Failure (CHF), Hyperlipidemia, Hypertension, Myocardial Infarction ([place]) Additional Family Medical History / Comment(s): mi x 3 Son(s) Family Medical History: No Reported History General Exam Limitations: no limitations General appearance: alert, in no apparent distress Head exam: Present: atraumatic, normocephalic, normal inspection Eye exam: Present: normal appearance, PERRL, EOMI. Absent: scleral icterus, conjunctival injection, periorbital swelling ENT exam: Present: mucous membranes moist, TM's normal bilaterally, other (Dental caries present left upper molar, no fluctuant masses or drainage present) Neck exam: Present: normal inspection. Absent: tenderness, meningismus, lymphadenopathy Respiratory exam: Present: normal lung sounds bilaterally. Absent: respiratory distress, wheezes, rales, rhonchi, stridor Cardiovascular Exam: Present: regular rate, normal rhythm, normal heart sounds. Absent: systolic murmur, diastolic murmur, rubs, gallop, clicks Neurological exam: Present: alert, oriented X3 Psychiatric exam: Present: normal affect, normal mood Skin exam: Present: warm, dry, intact, normal color. Absent: rash Course Vital Signs 03/23/24 03/23/24 18:27 19:14 Temperature 98.4 F 98.1 F Pulse Rate 85 84 Respiratory 18 18 Rate Blood Pressure 139/80 131/79 O2 Sat by Pulse 98 98 Oximetry Medical Decision Making - Medical Decision Making Was pt. sent in by a medical professional or institution (, PA, HEAD OF MUSIC, urgent care, hospital, or [place] health care facility...) When possible be specific @ -No Did you speak to anyone other than the patient for history (EMS, parent, family, police, friend...)? What history was obtained from this source @ -No Did you review nursing and triage notes (agree or disagree)? Why? @ -I reviewed and agree with nursing and triage notes Were old charts reviewed (outside hosp., previous admission, EMS record, old EKG, old radiological studies, urgent care reports/EKG's, [place] health care facility records)? Report findings @ -No old charts were reviewed Differential Diagnosis (chest pain, altered mental status, abdominal pain women, abdominal pain men, vaginal bleeding, weakness, fever, dyspnea, syncope, headache, dizziness, GI bleed, back pain, seizure, CVA, palpatations, mental health, musculoskeletal)? @ -Dental infection, dental abscess, gingivitis, dental caries, Satish's angina EKG interpreted by me (3pts min.). @ -None X-rays interpreted by me (1pt min.). @ -None done CT interpreted by me (1pt min.). @ -None done U/S interpreted by me (1pt. min.). @ -None done What testing was considered but not performed or refused? (CT, X-rays, U/S, labs)? Why? @ -None What meds were considered but not given or refused? Why? @ -None Did you discuss the management of the patient with other professionals (professionals i.e. , PA, HEAD OF MUSIC, lab, RT, psych nurse, social services counselor, facilities clerk, teacher, college service officer, case fitter)? Give summary @ -No Was smoking cessation discussed for >3mins.? @ -No Was critical care preformed (if so, how long)? @ -No Were there social determinants of health that impacted care today? How? (Homelessness, low income, unemployed, alcoholism, drug addiction, transportation, low edu. Level, literacy, decrease access to med. care, longterm, re hab)? @ -No Was there de-escalation of care discussed even if they declined (Discuss DNR or withdrawal of care, Hospice)? DNR status @ -No What co-morbidities impacted this encounter? (DM, HTN, Smoking, COPD, CAD, Cancer, CVA, ARF, Chemo, Hep., AIDS, mental health diagnosis, sleep apnea, morbid obesity)? @ -None Was patient admitted / discharged? Hospital course, mention meds given and route, prescriptions, significant lab abnormalities, going to OR and other pertinent info. @ -Discharge. This is a 34 old female with dental pain x 1 day. No red flag symptoms. Vital signs within acceptable limits. Physical exam remarkable for left upper molar dental caries, no fluctuant masses or sign of abscess. Pain control provided in the ER, prescribed Augmentin to pharmacy. Advise close follow-up with dentist. Appropriate return precautions and supportive care discussed. Case was discussed with my ED attending Dr. Oakes. Undiagnosed new problem with uncertain prognosis? @ -No Drug Therapy requiring intensive monitoring for toxicity (Heparin, Nitro, Insulin, Cardizem)? @ -No Were any procedures done? @ -No Diagnosis/symptom? @ -Dental infection Acute, or Chronic, or Acute on Chronic? @ -Acute Uncomplicated (without systemic symptoms) or Complicated (systemic symptoms)? @ -Uncomplicated Side effects of treatment? @ -No Exacerbation, Progression, or Severe Exacerbation? @ -No Poses a threat to life or bodily function? How? (Chest pain, [place], [place], pneumonia, PE, COPD, DKA, ARF, appy, cholecystitis, CVA, Diverticulitis, Homicidal, Suicidal, threat to staff... and all critical care pts) @ -No Disposition Clinical Impression: Dental infection Disposition: HOME SELF-CARE Condition: Stable Instructions (If sedation given, give patient instructions): Toothache (ED) Additional Instructions: Take Augmentin twice daily for 10 days. Take Tylenol threes as needed for pain. Follow-up with dentist as discussed. Please return to the Emergency Department if symptoms worsen or any other concerns. Prescriptions: Amoxic-Pot Clav 875-125Mg [Augmentin 875-125] 1 tab PO Q12HR #20 tab Acetaminophen-Codeine 300-30mg [Tylenol #3] 1 tab PO Q4H PRN #20 tablet PRN Reason: pain Is patient prescribed a controlled substance at d/c from ED?: Yes When asked, does pt state using other controlled substances?: No If prescribed controlled substance>3 days was MAPS reviewed?: Yes If opioid is for acute pain is fill amount 7 days or less?: Yes Referrals: None,Stated [Primary Care Provider] - 1-2 days Time of Disposition: 19:06
[2024-03-23] MEDS: ACET/COD 300 MG/30 MG STARTER PACK 6 TAB BTL PO STA (19:12)
[2024-03-23 19:15] VITALS: BP 131/79; PULSE 84; TEMP 98.1
== END 2024-03-23 19:14 | disposition home or self-care (01) ==
LOC: EC 18:20
DX: K04.7 Periapical abscess without sinus (principal); K02.9 Dental caries, unspecified; F17.290 Nicotine dependence, other tobacco product, uncomplicated; Z88.6 Allergy status to analgesic agent; Z88.8 Allergy status to other drugs, medicaments and biological substances
CPT/HCPCS: 99283

== ENCOUNTER 2024-03-26 02:32 | Emergency (ER) | payer OTHER ==
[2024-03-26 02:37] VITALS: TEMP 98.6
[2024-03-26 03:10] LABS: Basophils # (A) 0.1 k/uL (0-0.2); Basophils % (A) 1 %; Eosinophils # (A) 0.4 k/uL (0-0.7); Eosinophils % (A) 4 %; HCT 36.5 % (34.0-46.0); HGB 12.1 gm/dL (11.4-16.0); Lymphocytes % (A) 28 %; MCH 27.8 pg (25.0-35.0); MCHC 33.1 g/dL (31.0-37.0); Mean Platelet Volume 6.8; Monocytes # (A) 0.4 k/uL (0-1.0); Monocytes % (A) 4 %; Neutrophils # (A) 6.5 k/uL (1.3-7.7); Neutrophils % (A) 61 %; Platelet Count 299 k/uL (150-450); RBC 4.34 m/uL (3.80-5.40); RDW 14.2 % (11.5-15.5); WBC 10.6 k/uL (3.8-10.6)
[2024-03-26 03:18] LABS: Appearance,Urine Cloudy (Clear); Bacteria,Urine Few /hpf; Bilirubin,Urine Negative (Negative); Blood,Urine Large (Negative); Color,Urine Yellow; Glucose,Urine (UA) Negative (Negative); Hyaline Casts,Urine 3 /lpf (0-2); Ketones,Urine Negative (Negative); Leukocyte Esterase,Urine Large (Negative); Mucus,Urine Occasional /hpf; Nitrite,Urine Negative (Negative); Protein,Urine 1+ (Negative); RBC,Urine >182 /hpf (0-5); Specific Gravity,Urine 1.024 (1.001-1.035); Squamous Epithelial Cell,Urine <1 /hpf (0-4); Urobilinogen,Urine <2.0 mg/dL (<2.0); WBC,Urine >182 /hpf (0-5)
[2024-03-26 03:21] LABS: ALT 33 U/L (4-34); AST 22 U/L (14-36); African American GFR (CKD) >90 (>60 ml/min/1.73 sqM); Albumin 3.6 g/dL (3.5-5.0); Alkaline Phosphatase 106 U/L (38-126); Amylase 38 U/L (30-110); Anion Gap 5 mmol/L; Blood Urea Nitrogen 14 mg/dL (7-17); Calcium 8.9 mg/dL (8.4-10.2); Carbon Dioxide 27 mmol/L (22-30); Chloride 108 mmol/L (98-107); Glucose 107 mg/dL (74-99); Lipase 74 U/L (23-300); Non-African American GFR(CKD) >90 (>60 ml/min/1.73 sqM); Potassium 3.8 mmol/L (3.5-5.1); Sodium 140 mmol/L (137-145); Total Bilirubin 0.5 mg/dL (0.2-1.3); Total Protein 6.2 g/dL (6.3-8.2)
--- NOTE | 2024-03-26 03:39 | XR ---
EXAM: XR Abdomen, 1 View CLINICAL HISTORY: abdominal pain TECHNIQUE: Frontal upright view of the abdomen/pelvis. COMPARISON: No relevant prior studies available. FINDINGS: Intraperitoneal space: No pneumoperitoneum. Gastrointestinal tract: Nonspecific, nonobstructive bowel gas pattern with scattered gas predominantly in the nondilated colon. Mild stool burden. Organs: Cholecystectomy clips noted in the right upper quadrant. Bones/joints: Unremarkable. No acute fracture. Soft tissues: Surgical clips in the pelvis bilaterally are presumed in the region of the fallopian tubes. Tubes, lines and devices: An intrathecal catheter is suggested presumed entering the central canal at L2-3 level and extending superiorly. The tip is not clearly evident on this examination. IMPRESSION: Nonspecific, nonobstructive bowel gas pattern. No pneumoperitoneum.
--- NOTE | 2024-03-26 03:54 | ED ---
General Adult HPI - General Chief complaint: Urogenital Stated complaint: R Flank Pain/Hematuria Time Seen by Provider: 03/26/24 02:43 Source: patient Mode of arrival: ambulatory - History of Present Illness Initial comments: Patient is a 34-year-old woman who presents to have evaluation of right flank pain. The patient states she had recent diagnosis of kidney stone. She had been feeling better and then pain recurred tonight. Patient describes an aching right flank wrapping toward the right groin. She has not noted fever or chills. She has not noted hematuria. She states she is urinating frequently. -: hour(s) Location: back, abdomen Radiation: non-radiation Quality: aching Consistency: constant Improves with: none Worsens with: none Associated Symptoms: other - Related Data Home Medications Medication Instructions Recorded Confirmed Dicyclomine [Bentyl] 10 mg PO QID PRN 12/25/23 12/25/23 Hyoscyamine Sulfate [Levsin] 0.125 mg PO Q8H PRN 12/25/23 12/25/23 Previous Rx's Medication Instructions Recorded Cephalexin [Keflex] 500 mg PO Q6HR #28 cap 03/07/24 Phenazopyridine [Pyridium] 200 mg PO TID #6 tablet 03/10/24 Acetaminophen-Codeine 300-30mg 1 tab PO Q4H PRN #20 tablet 03/23/24 [Tylenol #3] Amoxic-Pot Clav 875-125Mg 1 tab PO Q12HR #20 tab 03/23/24 [Augmentin 875-125] Cephalexin [Keflex] 500 mg PO Q6HR #28 cap 03/26/24 Allergies Allergy/AdvReac Type Severity Reaction Status Date / Time aspirin AdvReac gi bleeds Verified 03/26/24 02:37 ketorolac [From Toradol] AdvReac GI bleeds Verified 03/26/24 02:37 NSAIDS (Non-Steroidal AdvReac given her Verified 03/26/24 02:37 Anti-Inflamma a GI bleed in the past Review of Systems ROS Statement: Those systems with pertinent positive or pertinent negative responses have been documented in the HPI. ROS Other: All systems not noted in ROS Statement are negative. Constitutional: Denies: fever, chills, weakness Respiratory: Denies: cough, dyspnea Cardiovascular: Denies: chest pain, palpitations, edema Gastrointestinal: Reports: abdominal pain. Denies: nausea, vomiting, diarrhea, constipation Genitourinary: Reports: frequency. Denies: dysuria, hematuria, discharge, abno rmal menses Musculoskeletal: Denies: back pain Skin: Denies: rash Neurological: Denies: headache, weakness Past Medical History Past Medical History: Diabetes Mellitus, Fibromyalgia, GERD/Reflux, GI Bleed, Hyperlipidemia, Hypertension Additional Past Medical History / Comment(s): gallstones, kidney stones, IBS, migraines, tachycardia, Martine- Guevara tear, blood clot, pesudo tumor cerebrea History of Any Multi-Drug Resistant Organisms: None Reported Past Surgical History: Section, Cholecystectomy, Tubal Ligation Additional Past Surgical History / Comment(s): neck biopsy (lymph node ) d&c; LP shunt May 13 2019 feb 0211/2019 -revision, stent/ lithotripsy on left, cystosc opy, shunt revises july 28. Past Anesthesia/Blood Transfusion Reactions: No Reported Reaction Past Psychological History: Anxiety, Bipolar, Depression, PTSD Smoking Status: Vaper Past Alcohol Use History: Rare Past Drug Use History: Marijuana - Past Family History Mother Family Medical History: Diabetes Mellitus, Hyperlipidemia, Hypertension, Myocardial Infarction ([place]) Additional Family Medical History / Comment(s): [place] X 3 Father Family Medical History: Congestive Heart Failure (CHF), Hyperlipidemia, Hypertension, Myocardial Infarction ([place]) Additional Family Medical History / Comment(s): mi x 3 Son(s) Family Medical History: No Reported History General Exam General appearance: alert, in no apparent distress Head exam: Present: atraumatic, normocephalic Eye exam: Present: normal appearance. Absent: scleral icterus Respiratory exam: Present: normal lung sounds bilaterally. Absent: respiratory distress, wheezes, rales, rhonchi, stridor, accessory muscle use Cardiovascular Exam: Present: regular rate, normal rhythm, normal heart sounds. Absent: systolic murmur, diastolic murmur, rubs, gallop GI/Abdominal exam: Present: soft. Absent: distended, tenderness, guarding, rebound, rigid, mass Extremities exam: Present: normal inspection, normal capillary refill. Absent: pedal edema, calf tenderness Back exam: Present: normal inspection, CVA tenderness (R). Absent: CVA ten derness (L), vertebral tenderness Neurological exam: Present: alert Skin exam: Present: warm, dry, intact, normal color. Absent: rash Course Vital Signs 03/26/24 03/26/24 02:34 04:20 Temperature 98.6 F Pulse Rate 87 81 Respiratory 18 16 Rate Blood Pressure 130/81 126/76 O2 Sat by Pulse 99 98 Oximetry Medical Decision Making - Medical Decision Making The patient had KUB x-ray that I interpreted as negative for free air or o bstruction. Was pt. sent in by a medical professional or institution (, PA, PIPE ORGAN MECHANIC APPRENTICE, urgent care, hospital, or retirement...) When possible be specific @ -[No] Did you speak to anyone other than the patient for history (EMS, parent, family, police, friend...)? What history was obtained from this source @ -[No] Did you review nursing and triage notes (agree or disagree)? Why? @ -[I reviewed and agree with nursing and triage notes] Were old charts reviewed (outside hosp., previous admission, EMS record, old EKG, old radiological studies, urgent care reports/EKG's, retirement records)? Report findings @ -[No old charts were reviewed] Differential Diagnosis (chest pain, altered mental status, abdominal pain women, abdominal pain men, vaginal bleeding, weakness, fever, dyspnea, syncope, headache, dizziness, GI bleed, back pain, seizure, CVA, palpatations, mental health, musculoskeletal)? @ -Differential Abdominal Pain Women: Appendicitis, Cholecystitis, diverticulosis, ischemic bowel, pancreatitis, hepatitis, UTI, gastroenteritis, AAA, incarcerated hernia, bowel obstruction, constipation, inflammatory bowel, hepatitis, peptic ulcer disease, splenic infarction, perforated viscus, vulvitis, ovarian torsion, PID, kidney stone, placenta abruption, this is not meant to be an all-inclusive list EKG interpreted by me (3pts min.). @ -[As above] X-rays interpreted by me (1pt min.). @ -[I interpreted as above CT interpreted by me (1pt min.). @ -[None done] U/S interpreted by me (1pt. min.). @ -[None done] What testing was considered but not performed or refused? (CT, X-rays, U/S, labs)? Why? @ -[None] What meds were considered but not given or refused? Why? @ -[None] Did you discuss the management of the patient with other professionals (professionals i.e. , PA, PIPE ORGAN MECHANIC APPRENTICE, lab, RT, psych nurse, social worker psychiatric, oil field operator, teacher, special officer automat, case supervisor)? Give summary @ -[No] Was smoking cessation discussed for >3mins.? @ -[No] Was critical care preformed (if so, how long)? @ -[No] Were there social determinants of health that impacted care today? How? (Homel essness, low income, unemployed, alcoholism, drug addiction, transportation, low edu. Level, literacy, decrease access to med. care, long term, rehab)? @ -[No] Was there de-escalation of care discussed even if they declined (Discuss DNR or withdrawal of care, Hospice)? DNR status @ -[No] What co-morbidities impacted this encounter? (DM, HTN, Smoking, COPD, CAD, Cancer, CVA, ARF, Chemo, Hep., AIDS, mental health diagnosis, sleep apnea, morbid obesity)? @ -[None] Was patient admitted / discharged? Hospital course, mention meds given and route, prescriptions, significant lab abnormalities, going to OR and other pertinent info. @ -[Patient is a 34-year-old woman here with flank pain and found to have urinary tract infection. The patient is given initial dose of antibiotics and will have further course as outpatient. We discussed the appropriate further care and follow-up as well as return parameters. It was emphasized that the patient must follow-up to ensure that the infection resolves. The patient declined [employer] PREVENTION SPECIALIST exam and states she is not concerned about possibility of STI. Emphasized she must follow-up if symptoms do not resolve or if there is any worsening. agnosed new problem with uncertain prognosis? @ -[No] Drug Therapy requiring intensive monitoring for toxicity (Heparin, Nitro, Insulin, Cardizem)? @ -[No] Were any procedures done? @ -[No] Diagnosis/symptom? @ -[Right flank pain Urinary tract infection Acute, or Chronic, or Acute on Chronic? @ -[Acute Uncomplicated (without systemic symptoms) or Complicated (systemic symptoms)? @ -[uncomplicated Side effects of treatment? @ -[No] Exacerbation, Progression, or Severe Exacerbation? @ -[No] Poses a threat to life or bodily function? How? (Chest pain, [place], [place], pneumonia, PE, COPD, DKA, ARF, appy, cholecystitis, CVA, Diverticulitis, Homicidal, Suicidal, threat to staff... and all critical care pts) @ -[No] - Lab Data Result diagrams: 03/26/24 02:52 03/26/24 02:52 Lab Results 03/26/24 03/26/24 03/26/24 Range/Units 02:52 02:52 02:55 WBC 10.6 (3.8-10.6) k/uL RBC 4.34 (3.80-5.40) m/uL Hgb 12.1 (11.4-16.0) gm/dL Hct 36.5 (34.0-46.0) % MCV 84.0 (80.0-100.0) fL MCH 27.8 (25.0-35.0) pg MCHC 33.1 (31.0-37.0) g/dL RDW 14.2 (11.5-15.5) % Plt Count 299 (150-450) k/uL MPV 6.8 Neutrophils % 61 % Lymphocytes % 28 % Monocytes % 4 % Eosinophils % 4 % Basophils % 1 % Neutrophils # 6.5 (1.3-7.7) k/uL Lymphocytes # 3.0 (1.0-4.8) k/uL Monocytes # 0.4 (0-1.0) k/uL Eosinophils # 0.4 (0-0.7) k/uL Basophils # 0.1 (0-0.2) k/uL Sodium 140 (137-145) mmol/L Potassium 3.8 (3.5-5.1) mmol/L Chloride 108 H (98-107) mmol/L Carbon Dioxide 27 (22-30) mmol/L Anion Gap 5 mmol/L BUN 14 (7-17) mg/dL Creatinine 0.76 (0.52-1.04) mg/dL Est GFR (CKD-EPI)AfAm >90 (>60 ml/min/1.73 sqM) Est GFR (CKD-EPI)NonAf >90 (>60 ml/min/1.73 sqM) Glucose 107 H (74-99) mg/dL Calcium 8.9 (8.4-10.2) mg/dL Total Bilirubin 0.5 (0.2-1.3) mg/dL AST 22 (14-36) U/L ALT 33 (4-34) U/L Alkaline Phosphatase 106 (38-126) U/L Total Protein 6.2 L (6.3-8.2) g/dL Albumin 3.6 (3.5-5.0) g/dL Amylase 38 (30-110) U/L Lipase 74 (23-300) U/L Urine Color Yellow Urine Appearance Cloudy H (Clear) Urine pH 6.0 (5.0-8.0) Ur Specific [place] 1.024 (1.001-1.035) Urine Protein 1+ H (Negative) Urine Glucose (UA) Negative (Negative) Urine Ketones Negative (Negative) Urine Blood Large H (Negative) Urine Nitrite Negative (Negative) Urine Bilirubin Negative (Negative) Urine Urobilinogen <2.0 (<2.0) mg/dL Ur Leukocyte Esterase Large H (Negative) Urine RBC >182 H (0-5) /hpf Urine WBC >182 H (0-5) /hpf Ur Squamous Epith Cells <1 (0-4) /hpf Urine Bacteria Few H (None) /hpf Hyaline Casts 3 H (0-2) /lpf Urine Mucus Occasional H (None) /hpf Urine HCG, Qual (Not Detectd) 03/26/24 Range/Units 02:55 WBC (3.8-10.6) k/uL RBC (3.80-5.40) m/uL Hgb (11.4-16.0) gm/dL Hct (34.0-46.0) % MCV (80.0-100.0) fL MCH (25.0-35.0) pg MCHC (31.0-37.0) g/dL RDW (11.5-15.5) % Plt Count (150-450) k/uL MPV Neutrophils % % Lymphocytes % % Monocytes % % Eosinophils % % Basophils % % Neutrophils # (1.3-7.7) k/uL Lymphocytes # (1.0-4.8) k/uL Monocytes # (0-1.0) k/uL Eosinophils # (0-0.7) k/uL Basophils # (0-0.2) k/uL Sodium (137-145) mmol/L Potassium (3.5-5.1) mmol/L Chloride (98-107) mmol/L Carbon Dioxide (22-30) mmol/L Anion Gap mmol/L BUN (7-17) mg/dL Creatinine (0.52-1.04) mg/dL Est GFR (CKD-EPI)AfAm (>60 ml/min/1.73 sqM) Est GFR (CKD-EPI)NonAf (>60 ml/min/1.73 sqM) Glucose (74-99) mg/dL Calcium (8.4-10.2) mg/dL Total Bilirubin (0.2-1.3) mg/dL AST (14-36) U/L ALT (4-34) U/L Alkaline Phosphatase (38-126) U/L Total Protein (6.3-8.2) g/dL Albumin (3.5-5.0) g/dL Amylase (30-110) U/L Lipase (23-300) U/L Urine Color Urine Appearance (Clear) Urine pH (5.0-8.0) Ur Specific [place] (1.001-1.035) Urine Protein (Negative) Urine Glucose (UA) (Negative) Urine Ketones (Negative) Urine Blood (Negative) Urine Nitrite (Negative) Urine Bilirubin (Negative) Urine Urobilinogen (<2.0) mg/dL Ur Leukocyte Esterase (Negative) Urine RBC (0-5) /hpf Urine WBC (0-5) /hpf Ur Squamous Epith Cells (0-4) /hpf Urine Bacteria (None) /hpf Hyaline Casts (0-2) /lpf Urine Mucus (None) /hpf Urine HCG, Qual Not Detected (Not Detectd) Disposition Clinical Impression: Urinary tract infection Disposition: HOME SELF-CARE Condition: Good Instructions (If sedation given, give patient instructions): Urinary Tract Infection in Women (ED) Prescriptions: Cephalexin [Keflex] 500 mg PO Q6HR #28 cap Is patient prescribed a controlled substance at d/c from ED?: No Referrals: None,Stated [Primary Care Provider] - 1-2 days
[2024-03-26] MEDS: MORPHINE SULFATE 4 MG/ML SYRINGE IV STA (04:01)
[2024-03-26 04:21] VITALS: BP 126/76; PULSE 81; RESP 16
== END 2024-03-26 04:52 | disposition home or self-care (01) ==
LOC: EC 02:32
DX: N39.0 Urinary tract infection, site not specified (principal); B95.0 Streptococcus, group A, as the cause of diseases classified elsewhere; F17.290 Nicotine dependence, other tobacco product, uncomplicated; Z88.8 Allergy status to other drugs, medicaments and biological substances; Z88.6 Allergy status to analgesic agent
CPT/HCPCS: 36415; 80053; 82150; 83690; 85025; 81001; 81025; 87086; 74018; 99284; 96365; 96375; J2270; J0696

== ENCOUNTER 2024-07-13 00:19 | Emergency (ER) | payer OTHER ==
[2024-07-13 00:27] VITALS: TEMP 98.2
--- NOTE | 2024-07-13 02:25 | ED ---
General Adult HPI - General Chief complaint: Back Pain/Injury Stated complaint: Bilateral Flank pain Time Seen by Provider: 07/13/24 01:14 Source: patient Mode of arrival: ambulatory Limitations: no limitations - History of Present Illness Initial comments: Patient is a 34-year-old female past medical history GI bleed, tubal ligation, prior kidney stones presenting today for bilateral flank pain. Patient states that starting today she again having a dull ache in the bilateral flanks. Continued to worsen through the night. Took Tylenol at 8 PM without relief of her pain. Pain is now sharp. Feels like prior kidney stones. She has had to have lithotripsy in the past for this. She is unable to take NSAIDs due to prior GI bleed secondary to NSAID use. Denies dysuria or hematuria, urinary incontinence, new numbness or weakness in her legs, fevers or chills. Denies shortness of breath or chest pain. Denies nausea, vomiting, melena, hematoc hezia, diarrhea. Prior abdominal surgeries include prior cholecystectomy and 4 C-sections. Patient states that she has also had a LP shunt placed in her back, it is in the lower midline of her back she states she has no pain in that site. - Related Data Home Medications Medication Instructions Recorded Confirmed Dicyclomine [Bentyl] 10 mg PO QID PRN 12/25/23 12/25/23 Hyoscyamine Sulfate [Levsin] 0.125 mg PO Q8H PRN 12/25/23 12/25/23 Previous Rx's Medication Instructions Recorded Cephalexin [Keflex] 500 mg PO Q6HR #28 cap 03/07/24 Phenazopyridine [Pyridium] 200 mg PO TID #6 tablet 03/10/24 Acetaminophen-Codeine 300-30mg 1 tab PO Q4H PRN #20 tablet 03/23/24 [Tylenol #3] Amoxic-Pot Clav 875-125Mg 1 tab PO Q12HR #20 tab 03/23/24 [Augmentin 875-125] Cephalexin [Keflex] 500 mg PO Q6HR #28 cap 03/26/24 Ondansetron [Zofran] 4 mg PO Q8HR PRN #15 tab 05/27/24 Allergies Allergy/AdvReac Type Severity Reaction Status Date / Time aspirin AdvReac gi bleeds Verified 07/14/24 21:58 ketorolac [From Toradol] AdvReac GI bleeds Verified 07/14/24 21:58 NSAIDS (Non-Steroidal AdvReac given her Verified 07/14/24 21:58 Anti-Inflamma a GI bleed in the past Review of Systems ROS Statement: Those systems with pertinent positive or pertinent negative responses have been documented in the HPI. ROS Other: All systems not noted in ROS Statement are negative. Past Medical History Past Medical History: Diabetes Mellitus, Fibromyalgia, GERD/Reflux, GI Bleed, Hyperlipidemia, Hypertension Additional Past Medical History / Comment(s): gallstones, kidney stones, IBS, migraines, tachycardia, Martine- Guevara tear, blood clot, pesudo tumor cerebrea History of Any Multi-Drug Resistant Organisms: None Reported Past Surgical History: Section, Cholecystectomy, Tubal Ligation Additional Past Surgical History / Comment(s): neck biopsy (lymph node ) d&c; LP shunt May 13 2019 feb 0211/2019 -revision, stent/ lithotripsy on left, cystoscopy, shunt revises july 28. Past Anesthesia/Blood Transfusion Reactions: No Reported Reaction Past Psychological History: Anxiety, Bipolar, Depression, PTSD Smoking Status: Vaper Past Alcohol Use History: Rare Past Drug Use History: Marijuana - Past Family History Mother Family Medical History: Diabetes Mellitus, Hyperlipidemia, Hypertension, Myocardial Infarction (NE) Additional Family Medical History / Comment(s): NE X 3 Father Family Medical History: Congestive Heart Failure (CHF), Hyperlipidemia, Hypertension, Myocardial Infarction (NE) Additional Family Medical History / Comment(s): mi x 3 Son(s) Family Medical History: No Reported History General Exam - General Exam Comments Initial Comments: PE: CONSTITUTIONAL: No apparent distress, well appearing SKIN: Warm, dry, no jaundice, hives or petechiae EYES: Pupils are equally round, extraocular movements intact without nystagmus, clear conjunctiva, non-icteric sclera HENT: Normocephalic, atraumatic, moist mucus membranes, oropharynx clear without exudates NECK: , Full range of motion, normal appearance PULMONARY: Clear to auscultation without wheezes, rhonchi, or rales, normal excursion, no accessory muscle use and no stridor CARDIOVASCULAR: Regular rate, rhythm, normal S1 and S2. No appreciated murmurs, rubs or gallops. Strong radial pulses with intact distal perfusion. No lower ex tremity edema GASTROINTESTINAL: Soft, active bowel sounds throughout, non-tender, non- distended, no palpable masses, no rebound or guarding. No hepatosplenomegaly, negative Patel sign GENITOURINARY: Bilateral flank tenderness but percussion worse on the left than the right MUSCULOSKELETAL: Extremities have no gross deformity, no edema, redness, or swelling.\\ NEUROLOGIC:_a/o x 3, GCS 15, normal mentation and speech. Moves all extremities x 4 without motor or sensory deficit PSYCHIATRIC:_normal mood and affect, thought process is clear and linear Limitations: no limitations Course Vital Signs 07/13/24 07/13/24 07/13/24 00:24 02:56 04:39 Temperature 98.2 F Pulse Rate 98 77 80 Respiratory 17 16 16 Rate Blood Pressure 126/77 133/74 111/68 O2 Sat by Pulse 97 98 95 Oximetry 07/13/24 05:45 Temperature Pulse Rate 82 Respiratory 16 Rate Blood Pressure 116/65 O2 Sat by Pulse 97 Oximetry Medical Decision Making - Medical Decision Making Was pt. sent in by a medical professional or institution (, PA, [employer], urgent care, hospital, or group home...) When possible be specific @ -No Did you speak to anyone other than the patient for history (EMS, parent, family, police, friend...)? What history was obtained from this source @ -No Did you review nursing and triage notes (agree or disagree)? Why? @ -I reviewed nursing and triage notes Were old charts reviewed (outside hosp., previous admission, EMS record, old EKG, old radiological studies, urgent care reports/EKG's, group home records)? Report findings @ -Medical records reviewed 30 patient's most recent abdominal imaging, had an x-ray KUB done 03/26/2024 showed a nonobstructive bowel gas pattern without pneumoperitoneum, CT abdomen pelvis performed on 03/04/2024 showed no acute suspicious changes accounting for right flank pain at that time Differential Diagnosis (chest pain, altered mental status, abdominal pain women, abdominal pain men, vaginal bleeding, weakness, fever, dyspnea, syncope, headache, dizziness, GI bleed, back pain, seizure, CVA, palpatations, mental health, musculoskeletal)? Differential diagnosis remains broad however top considerations include ureterolithiasis, cholecystitis, diverticulitis, pancreatitis, UTI, strain, pyelonephritis is not all-inclusive list EKG interpreted by me (3pts min.). @ -As above X-rays interpreted by me (1pt min.). @ -None done CT interpreted by me (1pt min.). @I personally reviewed CT abdomen pelvis, I see no evidence of obstructing ureterolithiasis or hydronephrosis, I agree with radiologist interpretation U/S interpreted by me (1pt. min.). @ -None done What testing was considered but not performed or refused? (CT, X-rays, U/S, labs)? Why? @ -None What meds were considered but not given or refused? Why? @Toradol was considered however patient has history of GI bleed secondary to NSAIDs Did you discuss the management of the patient with other professionals (professionals i.e. , PA, [employer], lab, RT, psych nurse, social media designer, costumed character, teacher, appeals officer, skilled nursing case manager)? Give summary @ -No Was smoking cessation discussed for >3mins.? @ -No Was critical care preformed (if so, how long)? @ -No Were there social determinants of health that impacted care today? How? (Homelessness, low income, unemployed, alcoholism, drug addiction, transportation, low edu. Level, literacy, decrease access to med. care, intermediate, rehab)? @ -No Was there de-escalation of care discussed even if they declined (Discuss DNR or withdrawal of care, Hospice)? @ -No What co-morbidities impacted this encounter? (DM, HTN, Smoking, COPD, CAD, Cancer, CVA, ARF, Chemo, Hep., AIDS, mental health diagnosis, sleep apnea, morbid obesity)? @ -None Was patient admitted / discharged? Hospital course, mention meds given and route, prescriptions, significant lab abnormalities, going to OR and other pertinent info. @ -Discharged -this is a pleasant 34-year-old female presenting today for bilateral flank pain x 1 day. Vital signs within acceptable limits on arrival, patient is afebrile, is not tachycardic or hypotensive. Exam significant for bilateral CVA tenderness worse on the left than the right. No midline spinal tenderness to help palpation. Discussed with patient plan for urinalysis, pain control, fluids labs and CT Ab/pelvis without contrast. She is agreeable plan of care. Of note Toradol was considered however she is unable to receive Toradol due to prior GI bleed. Urinalysis Shows moderate blood, small leukocyte esterase, 29 red cells, 10 white cells, 22 squamous cells rare bacteria this does appear contaminated and patient denies dysuria or urinary frequency, labs otherwise significant for slight elevation in LFTs AST/49 ALT/84, total bilirubin 0.8, lipase 99, no elevated neutrophils, leukopenia or leukocytosis on CBC. CT scan read as "no radiopaque renal calculi or signs of collecting system dilation, cholecystectomy changes normal appendix no other acute findings". Giv en hematuria and negative CT scan I suspect recently passed kidney stones. On reassessment patient is comfortable appearing, endorsed improvement in pain. I discussed with her CT and lab findings today. We discussed plan for discharge as well as return precautions. All questions were answered and patient was discharged in good condition In my medical judgment there is currently no evidence of an immediate life- threatening or surgical condition. Discharge is therefore indicated at this time. Discharge treatment instructions, follow up instructions, and appropriate emergency department return precautions were discussed with the patient and/or medical decision maker. Patient and/or medical decision maker expressed understanding of and agreed with the treatment plan, follow up instructions, and emergency department return precaution. All patient's and/or medical decision maker's questions were answered. Undiagnosed new problem with uncertain prognosis? @ -No Drug Therapy requiring intensive monitoring for toxicity (Heparin, Nitro, Insulin, Cardizem)? @ -No Were any procedures done? @ -No Diagnosis/symptom? Bilateral flank pain, hematuria Acute, or Chronic, or Acute on Chronic? Acute Uncomplicated (without systemic symptoms) or Complicated (systemic symptoms)? Uncomplicated Side effects of treatment? @ -No Exacerbation, Progression, or Severe Exacerbation? @ -No Poses a threat to life or bodily function? How? (Chest pain, [place], NE, pneumonia, PE, COPD, DKA, ARF, appy, cholecystitis, CVA, Diverticulitis, Homicidal, Suicidal, threat to staff... and all critical care pts) @ -No - Lab Data Result diagrams: 07/13/24 02:25 07/13/24 02:25 Lab Results 07/13/24 07/13/24 07/13/24 Range/Units 01:30 02:25 02:25 WBC 9.4 (3.8-10.6) k/uL RBC 4.47 (3.80-5.40) m/uL Hgb 11.7 (11.4-16.0) gm/dL Hct 37.4 (34.0-46.0) % MCV 83.7 (80.0-100.0) fL MCH 26.1 (25.0-35.0) pg MCHC 31.2 (31.0-37.0) g/dL RDW 14.5 (11.5-15.5) % Plt Count 301 (150-450) k/uL MPV 7.4 Neutrophils % 58 % Lymphocytes % 31 % Monocytes % 4 % Eosinophils % 4 % Basophils % 0 % Neutrophils # 5.5 (1.3-7.7) k/uL Lymphocytes # 2.9 (1.0-4.8) k/uL Monocytes # 0.4 (0-1.0) k/uL Eosinophils # 0.4 (0-0.7) k/uL Basophils # 0.0 (0-0.2) k/uL Sodium 137 (137-145) mmol/L Potassium 3.7 (3.5-5.1) mmol/L Chloride 102 (98-107) mmol/L Carbon Dioxide 28 (22-30) mmol/L Anion Gap 7 mmol/L BUN 15 (7-17) mg/dL Creatinine 0.73 (0.52-1.04) mg/dL Est GFR (CKD-EPI)AfAm >90 (>60 ml/min/1.73 sqM) Est GFR (CKD-EPI)NonAf >90 (>60 ml/min/1.73 sqM) Glucose 135 H (74-99) mg/dL Calcium 8.9 (8.4-10.2) mg/dL Total Bilirubin 0.8 (0.2-1.3) mg/dL AST 49 H (14-36) U/L ALT 84 H (4-34) U/L Alkaline Phosphatase 109 (38-126) U/L Total Protein 6.0 L (6.3-8.2) g/dL Albumin 3.5 (3.5-5.0) g/dL Lipase 99 (23-300) U/L HCG, Qual Not Detected Urine Color Yellow Urine Appearance Cloudy H (Clear) Urine pH 6.0 (5.0-8.0) Ur Specific [place] 1.037 H (1.001-1.035) Urine Protein 1+ H (Negative) Urine Glucose (UA) Negative (Negative) Urine Ketones Negative (Negative) Urine Blood Moderate H (Negative) Urine Nitrite Negative (Negative) Urine Bilirubin Negative (Negative) Urine Urobilinogen 6.0 (<2.0) mg/dL Ur Leukocyte Esterase Small H (Negative) Urine RBC 29 H (0-5) /hpf Urine WBC 10 H (0-5) /hpf Ur Squamous Epith Cells 22 H (0-4) /hpf Calcium Oxalate Crystal Rare H (None) /hpf Amorphous Sediment Rare H (None) /hpf Urine Bacteria Rare H (None) /hpf Hyaline Casts 2 (0-2) /lpf Urine Mucus Many H (None) /hpf Disposition Clinical Impression: Flank pain, Hematuria Disposition: HOME SELF-CARE Condition: Stable Instructions (If sedation given, give patient instructions): Flank Pain (ED) Additional Instructions: Every disease is a spectrum and a small chance still exists that a serious condition could develop, for this reason, please monitor yourself closely for new, changing or worsening symptoms, symptoms that persist beyond 48 hours, fever, inability to tolerate/keep down fluids or your medications, inability to follow up with outpatient providers as instructed and should you experience these symptoms or should you have any further concerns for your wellbeing please return to the ED or call 911 immediately. PLEASE call your primary care physician as soon as possible to arrange / discuss plan for followup appointment. Appointment in the next 1-3 days is strongly encouraged if possible. PLEASE let us know here before you leave if there is anything further we can do to be of any assistance. Take care and feel Better! Is patient prescribed a controlled substance at d/c from ED?: No Referrals: None,Stated [Primary Care Provider] - 1-2 days
[2024-07-13] MEDS: SODIUM CHLORIDE 0.9% 1,000 ML IV STA (02:29)
[2024-07-13] MEDS: MORPHINE SULFATE 4 MG/ML SYRINGE IVP STA ×2 (02:29→05:20)
[2024-07-13] MEDS: ONDANSETRON 4 MG/2 ML VIAL IVP STA (02:30)
[2024-07-13 02:53] LABS: ALT 84 U/L (4-34); AST 49 U/L (14-36); African American GFR (CKD) >90 (>60 ml/min/1.73 sqM); Albumin 3.5 g/dL (3.5-5.0); Alkaline Phosphatase 109 U/L (38-126); Anion Gap 7 mmol/L; Blood Urea Nitrogen 15 mg/dL (7-17); Calcium 8.9 mg/dL (8.4-10.2); Carbon Dioxide 28 mmol/L (22-30); Chloride 102 mmol/L (98-107); Glucose 135 mg/dL (74-99); Lipase 99 U/L (23-300); Non-African American GFR(CKD) >90 (>60 ml/min/1.73 sqM); Potassium 3.7 mmol/L (3.5-5.1); Sodium 137 mmol/L (137-145); Total Bilirubin 0.8 mg/dL (0.2-1.3)
[2024-07-13 02:57] VITALS: RESP 16
[2024-07-13 03:05] LABS: Basophils % (A) 0 %; Eosinophils # (A) 0.4 k/uL (0-0.7); Eosinophils % (A) 4 %; HCT 37.4 % (34.0-46.0); HGB 11.7 gm/dL (11.4-16.0); Lymphocytes # (A) 2.9 k/uL (1.0-4.8); Lymphocytes % (A) 31 %; MCH 26.1 pg (25.0-35.0); MCHC 31.2 g/dL (31.0-37.0); MCV 83.7 fL (80.0-100.0); Mean Platelet Volume 7.4; Monocytes # (A) 0.4 k/uL (0-1.0); Monocytes % (A) 4 %; Neutrophils # (A) 5.5 k/uL (1.3-7.7); Neutrophils % (A) 58 %; Platelet Count 301 k/uL (150-450); RBC 4.47 m/uL (3.80-5.40); RDW 14.5 % (11.5-15.5); WBC 9.4 k/uL (3.8-10.6)
[2024-07-13 03:07] LABS: Amorphous Sediment,Urine Rare /hpf; Appearance,Urine Cloudy (Clear); Bacteria,Urine Rare /hpf; Bilirubin,Urine Negative (Negative); Blood,Urine Moderate (Negative); Calcium Oxalate Crystals,Urine Rare /hpf; Color,Urine Yellow; Glucose,Urine (UA) Negative (Negative); Hyaline Casts,Urine 2 /lpf (0-2); Ketones,Urine Negative (Negative); Leukocyte Esterase,Urine Small (Negative); Mucus,Urine Many /hpf; Nitrite,Urine Negative (Negative); Protein,Urine 1+ (Negative); RBC,Urine 29 /hpf (0-5); Specific Gravity,Urine 1.037 (1.001-1.035); Squamous Epithelial Cell,Urine 22 /hpf (0-4); WBC,Urine 10 /hpf (0-5)
[2024-07-13 03:18] LABS: HCG,Qualitative Serum Not Detected
--- NOTE | 2024-07-13 04:38 | CT ---
EXAM: CT Abdomen and Pelvis Without Intravenous Contrast CLINICAL HISTORY: ITS.REASON CT Reason: bilateral flank pain, hx kidney stones TECHNIQUE: Axial computed tomography images of the abdomen and pelvis without intravenous contrast. CTDI is 34.2 mGy and DLP is 2048 mGy-cm. This CT exam was performed using one or more of the following dose reduction techniques: automated exposure control, adjustment of the mA and/or kV according to patient size, and/or use of iterative reconstruction technique. COMPARISON: No relevant prior studies available. FINDINGS: Limitations: Limited evaluation in the absence of contrast. Lung bases: Unremarkable. No mass. No consolidation. ABDOMEN: Liver: Hepatic steatosis. Gallbladder and bile ducts: Cholecystectomy changes. No ductal dilation. Pancreas: Unremarkable. No ductal dilation. Spleen: Unremarkable. No splenomegaly. Adrenals: Unremarkable. No mass. Kidneys and ureters: No evidence of radiopaque renal calculi or signs of collecting system dilatation. Stomach and bowel: No evidence of bowel obstruction. No mucosal thickening. PELVIS: Appendix: Normal appendix. Bladder: Unremarkable. No stones. Reproductive: Unremarkable as visualized. ABDOMEN and PELVIS: Intraperitoneal space: Unremarkable. No free air. No significant fluid collection. Bones/joints: Degenerative changes in the spine. No acute fracture. No dislocation. Soft tissues: Unremarkable. Vasculature: Unremarkable. No abdominal aortic aneurysm. Lymph nodes: Unremarkable. No enlarged lymph nodes. Tubes, lines and devices: Partially visualized lumboperitoneal shunt which terminates within the right hemiabdomen. IMPRESSION: 1. No evidence of radiopaque renal calculi or signs of collecting system dilatation. 2. Cholecystectomy changes. 3. Normal appendix. 4. No evidence of bowel obstruction. 5. No other acute findings.
[2024-07-13] MEDS: MORPHINE SULFATE 2 MG/ML SYRINGE IVP STA (04:50)
[2024-07-13 05:46] VITALS: BP 116/65; PULSE 82
== END 2024-07-13 05:53 | disposition home or self-care (01) ==
LOC: EC 00:19
DX: R10.9 Unspecified abdominal pain (principal); R31.9 Hematuria, unspecified; R74.01 Elevation of levels of liver transaminase levels; F17.290 Nicotine dependence, other tobacco product, uncomplicated; Z88.6 Allergy status to analgesic agent
CPT/HCPCS: 99284; 96374; 96375; 96376; 96361; 36415; 80053; 83690; 85025; 81001; 84703; 87086; 74176; J2270 ×2; J2405

== ENCOUNTER 2024-07-14 21:47 | Emergency (ER) | payer OTHER ==
[2024-07-14 21:58] VITALS: BP 159/85; PULSE 92; RESP 18; TEMP 98.3
[2024-07-14] MEDS: HYDROcodone/APAP 7.5-325MG 1 EACH TAB PO ONE (23:32)
[2024-07-15 02:01] LABS: Appearance,Urine Clear (Clear); Bacteria,Urine Rare /hpf; Bilirubin,Urine Negative (Negative); Blood,Urine Small (Negative); Color,Urine Yellow; Glucose,Urine (UA) Negative (Negative); Ketones,Urine Negative (Negative); Leukocyte Esterase,Urine Negative (Negative); Mucus,Urine Occasional /hpf; Nitrite,Urine Negative (Negative); Protein,Urine Negative (Negative); RBC,Urine 26 /hpf (0-5); Specific Gravity,Urine 1.026 (1.001-1.035); Squamous Epithelial Cell,Urine 1 /hpf (0-4); WBC,Urine 2 /hpf (0-5)
[2024-07-15] MEDS: ORPHENADRINE 30 MG/ML 2 ML VIAL IM STA (02:09)
--- NOTE | 2024-07-15 02:27 | ED ---
Back Pain HPI - General Chief Complaint: Back Pain/Injury Stated Complaint: back pain Time Seen by Provider: 07/14/24 22:07 Source: patient Limitations: no limitations - History of Present Illness Initial Comments: 34-year-old female presenting with chief complaint of back pain. Patient is having right flank pain. This has been ongoing for 3 days. States that it does radiate to the front of the abdomen. She was seen here on 07/13 for the same complaint. CT at that time showed no evidence of radiopaque renal calculi or signs of collecting system dilatation. No hematuria. No vomiting. No fever. No vaginal bleeding. - Related Data Home Medications Medication Instructions Recorded Confirmed Dicyclomine [Bentyl] 10 mg PO QID PRN 12/25/23 12/25/23 Hyoscyamine Sulfate [Levsin] 0.125 mg PO Q8H PRN 12/25/23 12/25/23 Previous Rx's Medication Instructions Recorded Cephalexin [Keflex] 500 mg PO Q6HR #28 cap 03/07/24 Phenazopyridine [Pyridium] 200 mg PO TID #6 tablet 03/10/24 Acetaminophen-Codeine 300-30mg 1 tab PO Q4H PRN #20 tablet 03/23/24 [Tylenol #3] Amoxic-Pot Clav 875-125Mg 1 tab PO Q12HR #20 tab 03/23/24 [Augmentin 875-125] Cephalexin [Keflex] 500 mg PO Q6HR #28 cap 03/26/24 Ondansetron [Zofran] 4 mg PO Q8HR PRN #15 tab 05/27/24 Allergies Allergy/AdvReac Type Severity Reaction Status Date / Time aspirin AdvReac gi bleeds Verified 07/14/24 21:58 ketorolac [From Toradol] AdvReac GI bleeds Verified 07/14/24 21:58 NSAIDS (Non-Steroidal AdvReac given her Verified 07/14/24 21:58 Anti-Inflamma a GI bleed in the past Review of Systems ROS Statement: Those systems with pertinent positive or pertinent negative responses have been documented in the HPI. ROS Other: All systems not noted in ROS Statement are negative. Past Medical History Past Medical History: Diabetes Mellitus, Fibromyalgia, GERD/Reflux, GI Bleed, Hyperlipidemia, Hypertension Additional Past Medical History / Comment(s): gallstones, kidney stones, IBS, migraines, tachycardia, Martine- Guevara tear, blood clot, pesudo tumor cerebrea History of Any Multi-Drug Resistant Organisms: None Reported Past Surgical History: Section, Cholecystectomy, Tubal Ligation Additional Past Surgical History / Comment(s): neck biopsy (lymph node ) d&c; LP shunt May 13 2019 feb 0211/2019 -revision, stent/ lithotripsy on left, cystoscopy, shunt revises july 28. Past Anesthesia/Blood Transfusion Reactions: No Reported Reaction Past Psychological History: Anxiety, Bipolar, Depression, PTSD Smoking Status: Vaper Past Alcohol Use History: Rare Past Drug Use History: Marijuana - Past Family History Mother Family Medical History: Diabetes Mellitus, Hyperlipidemia, Hypertension, Myocardial Infarction ([place]) Additional Family Medical History / Comment(s): [place] X 3 Father Family Medical History: Congestive Heart Failure (CHF), Hyperlipidemia, Hypertension, Myocardial Infarction ([place]) Additional Family Medical History / Comment(s): mi x 3 Son(s) Family Medical History: No Reported History General Exam Limitations: no limitations General appearance: alert, in no apparent distress Head exam: Present: atraumatic, normocephalic, normal inspection Eye exam: Present: normal appearance, EOMI Neck exam: Present: normal inspection. Absent: meningismus Respiratory exam: Present: normal lung sounds bilaterally. Absent: respiratory distress, wheezes, rales, rhonchi, stridor Cardiovascular Exam: Present: regular rate, normal rhythm, normal heart sounds. Absent: systolic murmur, diastolic murmur, rubs, gallop, clicks Back exam: Present: normal inspection, CVA tenderness (R), CVA tenderness (L) Neurological exam: Present: alert, oriented X3 Psychiatric exam: Present: normal affect, normal mood Skin exam: Present: warm, dry Course Vital Signs 07/14/24 21:56 Temperature 98.3 F Pulse Rate 92 Respiratory 18 Rate Blood Pressure 159/85 O2 Sat by Pulse 100 Oximetry Medical Decision Making - Medical Decision Making Was pt. sent in by a medical professional or institution (, PA, UNDERWRITING MANAGER, urgent care, hospital, or half-way...) When possible be specific @ -No Did you speak to anyone other than the patient for history (EMS, parent, family, police, friend...)? What history was obtained from this source @ -No Did you review nursing and triage notes (agree or disagree)? Why? @ -I reviewed and agree with nursing and triage notes Were old charts reviewed (outside hosp., previous admission, EMS record, old EKG, old radiological studies, urgent care reports/EKG's, half-way records)? Report findings @ -Reviewed recent visit for same complaint and CT Differential Diagnosis (chest pain, altered mental status, abdominal pain women, abdominal pain men, vaginal bleeding, weakness, fever, dyspnea, syncope, headache, dizziness, GI bleed, back pain, seizure, CVA, palpatations, mental health, musculoskeletal)? @ - MDM Differential Back Pain: Strain, zoster, cauda equina syndrome, epidural abscess, vertebral osteomyelitis, discitis, fracture, subluxation, disc herniation, DJD, spinal stenosis, dissection, AAA, pancreatitis, peptic ulcer disease, pyelonephritis, kidney stone this is not meant to be an all-inclusive list. EKG interpreted by me (3pts min.). @ -As above X-rays interpreted by me (1pt min.). @ -None done CT interpreted by me (1pt min.). @ -None done U/S interpreted by me (1pt. min.). @ -None done What testing was considered but not performed or refused? (CT, X-rays, U/S, labs)? Why? @ -None What meds were considered but not given or refused? Why? @ -None Did you discuss the management of the patient with other professionals (professionals i.e. , PA, UNDERWRITING MANAGER, lab, RT, psych nurse, social services specialist, flour blender helper, teacher, contracting officer, piano case and bench assembler)? Give summary @ -No Was smoking cessation discussed for >3mins.? @ -No Was critical care preformed (if so, how long)? @ -No Were there social determinants of health that impacted care today? How? (Homelessness, low income, unemployed, alcoholism, drug addiction, transportation, low edu. Level, literacy, decrease access to med. care, snf, rehab)? @ -No Was there de-escalation of care discussed even if they declined (Discuss DNR or withdrawal of care, Hospice)? DNR status @ -No What co-morbidities impacted this encounter? (DM, HTN, Smoking, COPD, CAD, Cancer, CVA, ARF, Chemo, Hep., AIDS, mental health diagnosis, sleep apnea, morbid obesity)? @ -None Was patient admitted / discharged? Hospital course, mention meds given and route, prescriptions, significant lab abnormalities, going to OR and other pertinent info. @ -34-year-old female presenting with chief complaint of flank pain. Patient was seen here on 07/13 for the same complaint. She had a CT performed which showed no renal stones or dilation of the collecting system. History and physical examination are conducted. Urine does show some small blood with 26 RBCs. Considering that patient had a recent CT performed I do not believe that she needs a repeat today. Her pain was treated with Norflex and [place]. Patient became angry when I was explaining the results to her. She picked up her belongings and walked out of the ER. She should follow-up with her PCP and r mikhailrt back to the ER with any new or worsening symptoms. I discussed this case with my attending Dr. Oakes Undiagnosed new problem with uncertain prognosis? @ -No Drug Therapy requiring intensive monitoring for toxicity (Heparin, Nitro, Insulin, Cardizem)? @ -No Were any procedures done? @ -No Diagnosis/symptom? @ -Flank pain Acute, or Chronic, or Acute on Chronic? @ -Acute Uncomplicated (without systemic symptoms) or Complicated (systemic symptoms)? @ -Uncomplicated Side effects of treatment? @ -No Exacerbation, Progression, or Severe Exacerbation? @ -No Poses a threat to life or bodily function? How? (Chest pain, [place], [place], pneumonia, PE, COPD, DKA, ARF, appy, cholecystitis, CVA, Diverticulitis, Homicidal, Suicidal, threat to staff... and all critical care pts) @ -Low likelihood - Lab Data Lab Results 07/15/24 Range/Units 01:05 Urine Color Yellow Urine Appearance Clear (Clear) Urine pH 6.0 (5.0-8.0) Ur Specific [place] 1.026 (1.001-1.035) Urine Protein Negative (Negative) Urine Glucose (UA) Negative (Negative) Urine Ketones Negative (Negative) Urine Blood Small H (Negative) Urine Nitrite Negative (Negative) Urine Bilirubin Negative (Negative) Urine Urobilinogen 2.0 (<2.0) mg/dL Ur Leukocyte Esterase Negative (Negative) Urine RBC 26 H (0-5) /hpf Urine WBC 2 (0-5) /hpf Ur Squamous Epith Cells 1 (0-4) /hpf Urine Bacteria Rare H (None) /hpf Urine Mucus Occasional H (None) /hpf Disposition Clinical Impression: Flank pain Disposition: HOME SELF-CARE Condition: Good Instructions (If sedation given, give patient instructions): Flank Pain (ED) Additional Instructions: Follow-up with PCP. Report back to ER with any new or worsening symptoms. Is patient prescribed a controlled substance at d/c from ED?: No Referrals: None,Stated [Primary Care Provider] - 1-2 days Forms: Area PCPs Time of Disposition: 02:26
== END 2024-07-15 02:20 | disposition home or self-care (01) ==
LOC: EC 21:47
DX: R10.9 Unspecified abdominal pain (principal); F17.290 Nicotine dependence, other tobacco product, uncomplicated; Z88.6 Allergy status to analgesic agent
CPT/HCPCS: 81001; 99283

== ENCOUNTER 2024-11-07 01:30 | Emergency (ER) | payer OTHER ==
[2024-11-07 01:38] VITALS: RESP 16
--- NOTE | 2024-11-07 01:49 | ED ---
Abdominal Pain HPI - General Chief Complaint: Abdominal Pain Stated Complaint: left sided abd pain Time Seen by Provider: 11/07/24 01:40 Source: patient, RN notes reviewed, old records reviewed Mode of arrival: ambulatory Limitations: no limitations - History of Present Illness Initial Comments: This is a 34-year-old female to the ER for evaluation this patient presents today for evaluation regards to severe abdominal pain patient has complex medical history complex surgical history with history of kidney stones this feels similar MD Complaint: abdominal pain -: days(s) Location: LLQ, L flank Radiation: L flank Migration to: suprapubic Severity: severe Severity scale (1-10): 9 Consistency: constant Improves With: nothing Worsens With: nothing Associated Symptoms: nausea Treatments Prior to Arrival: other - Related Data Home Medications Medication Instructions Recorded Confirmed Dicyclomine [Bentyl] 10 mg PO QID PRN 12/25/23 12/25/23 Hyoscyamine Sulfate [Levsin] 0.125 mg PO Q8H PRN 12/25/23 12/25/23 Previous Rx's Medication Instructions Recorded Cephalexin [Keflex] 500 mg PO Q6HR #28 cap 03/07/24 Phenazopyridine [Pyridium] 200 mg PO TID #6 tablet 03/10/24 Acetaminophen-Codeine 300-30mg 1 tab PO Q4H PRN #20 tablet 03/23/24 [Tylenol #3] Amoxic-Pot Clav 875-125Mg 1 tab PO Q12HR #20 tab 03/23/24 [Augmentin 875-125] Cephalexin [Keflex] 500 mg PO Q6HR #28 cap 03/26/24 Ondansetron [Zofran] 4 mg PO Q8HR PRN #15 tab 05/27/24 Allergies Allergy/AdvReac Type Severity Reaction Status Date / Time aspirin AdvReac gi bleeds Verified 11/07/24 01:35 ketorolac [From Toradol] AdvReac GI bleeds Verified 11/07/24 01:35 NSAIDS (Non-Steroidal AdvReac given her Verified 11/07/24 01:35 Anti-Inflamma a GI bleed in the past Review of Systems ROS Statement: Those systems with pertinent positive or pertinent negative responses have been documented in the HPI. ROS Other: All systems not noted in ROS Statement are negative. Past Medical History Past Medical History: Diabetes Mellitus, Fibromyalgia, GERD/Reflux, GI Bleed, Hyperlipidemia, Hypertension Additional Past Medical History / Comment(s): gallstones, kidney stones, IBS, migraines, tachycardia, Martine- Guevara tear, blood clot, pesudo tumor cerebrea History of Any Multi-Drug Resistant Organisms: None Reported Past Surgical History: Section, Cholecystectomy, Tubal Ligation Additional Past Surgical History / Comment(s): neck biopsy (lymph node ) d&c; LP shunt May 13 2019 feb 0211/2019 -revision, stent/ lithotripsy on left, cystosc opy, shunt revises july 28. Past Anesthesia/Blood Transfusion Reactions: No Reported Reaction Past Psychological History: Anxiety, Bipolar, Depression, PTSD Smoking Status: Vaper Past Alcohol Use History: None Reported Past Drug Use History: Marijuana - Past Family History Mother Family Medical History: Diabetes Mellitus, Hyperlipidemia, Hypertension, Myocardial Infarction ([place]) Additional Family Medical History / Comment(s): [place] X 3 Father Family Medical History: Congestive Heart Failure (CHF), Hyperlipidemia, Hypertension, Myocardial Infarction ([place]) Additional Family Medical History / Comment(s): mi x 3 Son(s) Family Medical History: No Reported History General Exam Limitations: no limitations General appearance: alert, in no apparent distress Head exam: Present: atraumatic, normocephalic, normal inspection Eye exam: Present: normal appearance, PERRL, EOMI. Absent: scleral icterus, conjunctival injection, periorbital swelling ENT exam: Present: normal exam, mucous membranes moist Neck exam: Present: normal inspection. Absent: tenderness, meningismus, lymphadenopathy Respiratory exam: Present: normal lung sounds bilaterally. Absent: respiratory distress, wheezes, rales, rhonchi, stridor Cardiovascular Exam: Present: regular rate, normal rhythm, normal heart sounds. Absent: systolic murmur, diastolic murmur, rubs, gallop, clicks GI/Abdominal exam: Present: soft, normal bowel sounds. Absent: distended, tenderness, guarding, rebound, rigid Extremities exam: Present: normal inspection, full ROM, normal capillary refill. Absent: tenderness, pedal edema, joint swelling, calf tenderness Back exam: Present: normal inspection Neurological exam: Present: alert, oriented X3, CN II-XII intact Psychiatric exam: Present: normal affect, normal mood Skin exam: Present: warm, dry, intact, normal color. Absent: rash Course Vital Signs 11/07/24 11/07/24 01:35 05:27 Temperature 97.8 F 98.2 F Pulse Rate 110 H 94 Respiratory 16 16 Rate Blood Pressure 128/74 130/67 O2 Sat by Pulse 98 99 Oximetry - Reevaluation(s) Reevaluation #1: 11/07/24 02:15 Medical records reviewed Reevaluation #4: Was pt. sent in by a medical professional or institution (ZA Su, MARBLE INSTALLER SUPERVISOR, urgent care, hospital, or skilled nursing...) When possible be specific @ -no Did you speak to anyone other than the patient for history (EMS, parent, family, police, friend...)? What history was obtained from this source @ -no Did you review nursing and triage notes (agree or disagree)? Why? @ -agree Are old charts reviewed (outside hosp., previous admission, EMS record, old EKG, old radiological studies, urgent care reports/EKG's, skilled nursing records)? Report findings @ -yes Differential Diagnosis (chest pain, altered mental status, abdominal pain women, abdominal pain men, vaginal bleeding, weakness, fever, dyspnea, syncope, headache, dizziness, GI bleed, back pain, seizure, CVA, palpatations, mental health, musculoskeletal)? @ -prior EKG interpreted by me (3pts min.). @ -yes X-rays interpreted by me (1pt min.). @ -yes negative for acute disease CT interpreted by me (1pt min.). @ -no U/S interpreted by me (1pt. min.). @ -no What testing was considered but not performed or refused? (CT, X-rays, U/S, labs)? Why? @ -none What meds were considered but not given or refused? Why? @ -none Did you discuss the management of the patient with other professionals (professionals i.e. ZA Su, MARBLE INSTALLER SUPERVISOR, lab, RT, psych nurse, social sciences instructor, dry transfer man, teacher, space operations officer, case managers)? Give summary @ -no Was smoking cessation discussed for >3mins.? @ -no Was critical care preformed (if so, how long)? @ -no Were there social determinants of health that impacted care today? How? (Homelessness, low income, unemployed, alcoholism, drug addiction, transportation, low edu. Level, literacy, decrease access to med. care, chcf, rehab)? @ -none Was there de-escalation of care discussed even if they declined (Discuss DNR or withdrawal of care, Hospice)? DNR status @ -no What co-morbidities impacted this encounter? (DM, HTN, Smoking, COPD, CAD, Cancer, CVA, ARF, Chemo, Hep., AIDS, mental health diagnosis, sleep apnea, morbid obesity)? @ -none Was patient admitted / discharged? Hospital course, mention meds given and route, prescriptions, significant lab abnormalities, going to OR and other pertinent info. @ - Undiagnosed new problem with uncertain prognosis? @ -no Drug Therapy requiring intensive monitoring for toxicity (Heparin, Nitro, Insulin, Cardizem)? @ -no Were any procedures done? @ -no Diagnosis/symptom? @ - Acute, or Chronic, or Acute on Chronic? @ -Acute Uncomplicated (without systemic symptoms) or Complicated (systemic symptoms)? @ -Complicated Side effects of treatment? @ -no Exacerbation, Progression, or Severe Exacerbation? @ -exacerbation Poses a threat to life or bodily function? How? (Chest pain, [place], [place], pneumonia, PE, COPD, DKA, ARF, appy, cholecystitis, CVA, Diverticulitis, Homicidal, Suicidal, threat to staff... and all critical care pts) @ -yes Reevaluation #5: Differential Abdominal Pain Women: Appendicitis, Cholecystitis, diverticulosis, ischemic bowel, pancreatitis, hepatitis, UTI, gastroenteritis, AAA, incarcerated hernia, bowel obstruction, constipation, inflammatory bowel, hepatitis, peptic ulcer disease, splenic infarction, perforated viscus, vulvitis, ovarian torsion, PID, kidney stone, placenta abruption, this is not meant to be an all-inclusive list Medical Decision Making - Lab Data Result diagrams: 11/07/24 02:04 11/07/24 02:04 Lab Results 11/07/24 11/07/24 11/07/24 Range/Units 02:00 02:00 02:04 WBC 11.44 H (4.50-10.00) 10*3/uL RBC 4.50 (4.10-5.20) 10*6/uL Hgb 12.3 (12.0-15.0) g/dL Hct 37.0 L (37.2-46.3) % MCV 82.2 (80.0-97.0) fL MCH 27.3 (27.0-32.0) pg MCHC 33.2 (32.0-37.0) g/dL Plt Count 328 (140-440) 10*3/uL MPV 9.4 L (9.5-12.2) fL Immature Gran % (Auto) 0.3 % Neutrophils % 62.8 % Lymphocytes % 27.4 % Monocytes % 4.9 % Eosinophils % 3.9 % Basophils % 0.7 % Immature Gran # 0.03 (0.00-0.04) 10*3/uL Neutrophils # 7.19 (1.80-7.70) 10*3/uL Lymphocytes # 3.13 (0.90-5.00) 10*3/uL Monocytes # 0.56 (0.20-1.00) 10*3/uL Eosinophils # 0.45 H (0.04-0.35) 10*3/uL Basophils # 0.08 (0.00-0.10) 10*3/uL Sodium (137-145) mmol/L Potassium (3.5-5.1) mmol/L Chloride (98-107) mmol/L Carbon Dioxide (22-30) mmol/L Anion Gap mmol/L BUN (7-17) mg/dL Creatinine (0.52-1.04) mg/dL Est GFR (CKD-EPI)AfAm (>60 ml/min/1.73 sqM) Est GFR (CKD-EPI)NonAf (>60 ml/min/1.73 sqM) Glucose (74-99) mg/dL Calcium (8.4-10.2) mg/dL Total Bilirubin (0.2-1.3) mg/dL AST (14-36) U/L ALT (4-34) U/L Alkaline Phosphatase (38-126) U/L Total Protein (6.3-8.2) g/dL Albumin (3.5-5.0) g/dL Amylase (30-110) U/L Lipase (23-300) U/L Urine Color Yellow Urine Appearance Cloudy H (Clear) Urine pH 6.5 (5.0-8.0) Ur Specific [place] 1.029 (1.001-1.035) Urine Protein Trace H (Negative) Urine Glucose (UA) Negative (Negative) Urine Ketones Negative (Negative) Urine Blood Large H (Negative) Urine Nitrite Negative (Negative) Urine Bilirubin Negative (Negative) Urine Urobilinogen <2.0 (<2.0) mg/dL Ur Leukocyte Esterase Negative (Negative) Urine RBC 8 H (0-5) /hpf Urine WBC 2 (0-5) /hpf Ur Squamous Epith Cells 10 H (0-4) /hpf Amorphous Sediment Rare H (None) /hpf Urine Bacteria Rare H (None) /hpf Urine Mucus Moderate H (None) /hpf Urine HCG, Qual Not Detected (Not Detectd) 11/07/24 Range/Units 02:04 WBC (4.50-10.00) 10*3/uL RBC (4.10-5.20) 10*6/uL Hgb (12.0-15.0) g/dL Hct (37.2-46.3) % MCV (80.0-97.0) fL MCH (27.0-32.0) pg MCHC (32.0-37.0) g/dL Plt Count (140-440) 10*3/uL MPV (9.5-12.2) fL Immature Gran % (Auto) % Neutrophils % % Lymphocytes % % Monocytes % % Eosinophils % % Basophils % % Immature Gran # (0.00-0.04) 10*3/uL Neutrophils # (1.80-7.70) 10*3/uL Lymphocytes # (0.90-5.00) 10*3/uL Monocytes # (0.20-1.00) 10*3/uL Eosinophils # (0.04-0.35) 10*3/uL Basophils # (0.00-0.10) 10*3/uL Sodium 137 (137-145) mmol/L Potassium 4.1 (3.5-5.1) mmol/L Chloride 102 (98-107) mmol/L Carbon Dioxide 24 (22-30) mmol/L Anion Gap 11 mmol/L BUN 14 (7-17) mg/dL Creatinine 0.65 (0.52-1.04) mg/dL Est GFR (CKD-EPI)AfAm >90 (>60 ml/min/1.73 sqM) Est GFR (CKD-EPI)NonAf >90 (>60 ml/min/1.73 sqM) Glucose 182 H (74-99) mg/dL Calcium 9.1 (8.4-10.2) mg/dL Total Bilirubin 0.8 (0.2-1.3) mg/dL AST 52 H (14-36) U/L ALT 63 H (4-34) U/L Alkaline Phosphatase 132 H (38-126) U/L Total Protein 6.5 (6.3-8.2) g/dL Albumin 3.7 (3.5-5.0) g/dL Amylase 39 (30-110) U/L Lipase 65 (23-300) U/L Urine Color Urine Appearance (Clear) Urine pH (5.0-8.0) Ur Specific [place] (1.001-1.035) Urine Protein (Negative) Urine Glucose (UA) (Negative) Urine Ketones (Negative) Urine Blood (Negative) Urine Nitrite (Negative) Urine Bilirubin (Negative) Urine Urobilinogen (<2.0) mg/dL Ur Leukocyte Esterase (Negative) Urine RBC (0-5) /hpf Urine WBC (0-5) /hpf Ur Squamous Epith Cells (0-4) /hpf Amorphous Sediment (None) /hpf Urine Bacteria (None) /hpf Urine Mucus (None) /hpf Urine HCG, Qual (Not Detectd) Disposition Clinical Impression: Abdominal colic, Kidney stone Disposition: HOME SELF-CARE Condition: Fair Instructions (If sedation given, give patient instructions): Abdominal Pain (ED) Is patient prescribed a controlled substance at d/c from ED?: No Referrals: None,Stated [Primary Care Provider] - 1-2 days Time of Disposition: 05:30
[2024-11-07 02:17] LABS: Basophils # (A) 0.08 10*3/uL (0.00-0.10); Basophils % (A) 0.7 %; Eosinophils # (A) 0.45 10*3/uL (0.04-0.35); Eosinophils % (A) 3.9 %; HCT 37.0 % (37.2-46.3); HGB 12.3 g/dL (12.0-15.0); Lymphocytes # (A) 3.13 10*3/uL (0.90-5.00); Lymphocytes % (A) 27.4 %; MCH 27.3 pg (27.0-32.0); MCHC 33.2 g/dL (32.0-37.0); MCV 82.2 fL (80.0-97.0); Monocytes # (A) 0.56 10*3/uL (0.20-1.00); Monocytes % (A) 4.9 %; Neutrophils # (A) 7.19 10*3/uL (1.80-7.70); Neutrophils % (A) 62.8 %; Platelet Count 328 10*3/uL (140-440); RBC 4.50 10*6/uL (4.10-5.20); RDW 13.8 % (11.5-14.5); WBC 11.44 10*3/uL (4.50-10.00)
[2024-11-07] MEDS: SODIUM CHLORIDE 0.9% 1,000 ML IV ONE (02:20)
[2024-11-07] MEDS: KETOROLAC 15 MG/ML 1 ML VIAL IVP STA (02:20)
[2024-11-07] MEDS: ONDANSETRON 4 MG/2 ML VIAL IVP STA (02:22)
[2024-11-07 02:23] LABS: Amorphous Sediment,Urine Rare /hpf; Bacteria,Urine Rare /hpf; Bilirubin,Urine Negative (Negative); Blood,Urine Large (Negative); Color,Urine Yellow; Glucose,Urine (UA) Negative (Negative); Ketones,Urine Negative (Negative); Leukocyte Esterase,Urine Negative (Negative); Mucus,Urine Moderate /hpf; Nitrite,Urine Negative (Negative); PH, Urine 6.5 (5.0-8.0); Protein,Urine Trace (Negative); RBC,Urine 8 /hpf (0-5); Specific Gravity,Urine 1.029 (1.001-1.035); Squamous Epithelial Cell,Urine 10 /hpf (0-4); Urobilinogen,Urine <2.0 mg/dL (<2.0); WBC,Urine 2 /hpf (0-5)
[2024-11-07] MEDS: HYDROmorphone 1 MG/ML 1 ML SYRINGE IVP STA ×2 (02:23→05:48)
[2024-11-07 02:29] LABS: ALT 63 U/L (4-34); AST 52 U/L (14-36); African American GFR (CKD) >90 (>60 ml/min/1.73 sqM); Albumin 3.7 g/dL (3.5-5.0); Alkaline Phosphatase 132 U/L (38-126); Amylase 39 U/L (30-110); Anion Gap 11 mmol/L; Blood Urea Nitrogen 14 mg/dL (7-17); Calcium 9.1 mg/dL (8.4-10.2); Carbon Dioxide 24 mmol/L (22-30); Chloride 102 mmol/L (98-107); Glucose 182 mg/dL (74-99); Lipase 65 U/L (23-300); Non-African American GFR(CKD) >90 (>60 ml/min/1.73 sqM); Potassium 4.1 mmol/L (3.5-5.1); Sodium 137 mmol/L (137-145); Total Protein 6.5 g/dL (6.3-8.2)
--- NOTE | 2024-11-07 05:08 | CT ---
EXAM: CT Abdomen and Pelvis Without Intravenous Contrast CLINICAL HISTORY: ITS.REASON CT Reason: abdominal pain TECHNIQUE: Axial computed tomography images of the abdomen and pelvis without intravenous contrast. CTDI is 25.4 mGy and DLP is 1656.4 mGy-cm. This CT exam was performed using one or more of the following dose reduction techniques: automated exposure control, adjustment of the mA and/or kV according to patient size, and/or use of iterative reconstruction technique. COMPARISON: No relevant prior studies available. FINDINGS: Lung bases: Unremarkable. No mass. No consolidation. ABDOMEN: Liver: Hepatic steatosis. Gallbladder and bile ducts: Cholecystectomy. No ductal dilation. Pancreas: Unremarkable. No ductal dilation. Spleen: Unremarkable. No splenomegaly. Adrenals: Unremarkable. No mass. Kidneys and ureters: Unremarkable. No nephrolithiasis, hydronephrosis, or obstructive uropathy. Stomach and bowel: Unremarkable. No obstruction. No mucosal thickening. PELVIS: Appendix: No findings to suggest acute appendicitis. Bladder: Unremarkable. No stones. Reproductive: Unremarkable as visualized. ABDOMEN and PELVIS: Intraperitoneal space: Unremarkable. No free air. No significant fluid collection. Bones/joints: No acute fracture. No dislocation. Soft tissues: Unremarkable. Vasculature: Unremarkable. No abdominal aortic aneurysm. Lymph nodes: Unremarkable. No enlarged lymph nodes. IMPRESSION: 1. No nephrolithiasis, hydronephrosis, or obstructive uropathy. 2. Hepatic steatosis. 3. Cholecystectomy.
[2024-11-07 05:28] VITALS: BP 130/67; PULSE 94; TEMP 98.2
[2024-11-07] MEDS: PROCHLORPERAZINE INJ 10 MG/2 ML VIAL IVP STA (05:49)
[2024-11-07] MEDS: ACET/COD 300 MG/30 MG STARTER PACK 6 TAB BTL PO STA (05:59)
[2024-11-07] MEDS: ONDANSETRON 4 MG ODT STARTER PACK 2 TAB BTL PO STA (05:59)
== END 2024-11-07 06:22 | disposition home or self-care (01) ==
LOC: EC 01:30
DX: N20.0 Calculus of kidney (principal); F17.290 Nicotine dependence, other tobacco product, uncomplicated; Z88.6 Allergy status to analgesic agent
CPT/HCPCS: 36415; 80053; 82150; 83690; 85025; 81001; 81025; 74176; 99284; 96374; 96375; 96376; 96361; J0780; J2405; J1171; S0119

== ENCOUNTER 2024-11-14 21:31 | Emergency (ER) | payer OTHER ==
[2024-11-14 21:42] VITALS: TEMP 99
[2024-11-14] MEDS: Acetaminophen-Codeine 300-30mg TAB PO STA (22:16)
[2024-11-14] MEDS: methylPREDNISolone SOD SUCCI 125 MG/2 ML VIAL IM ONE (22:16)
[2024-11-14] MEDS: IPRATROPIUM-ALBUTEROL 3 ML NEB INHALATION STA (22:24)
--- NOTE | 2024-11-14 22:38 | ED ---
URI HPI - General Chief Complaint: Upper Respiratory Infection Stated Complaint: Cough, MITCHEL Time Seen by Provider: 11/14/24 21:42 Source: patient, RN notes reviewed Mode of arrival: ambulatory Limitations: no limitations - History of Present Illness Initial Comments: 34-year-old female presents emergency department with chief complaint of cough, shortness of breath. Patient has had increasing cough for last month noted some wheezing, shortness of breath. Pain when she coughs in her left lower rib region. She denies any abdominal complaints no urinary symptoms denies chance . No history of asthma. No inhaler use. - Related Data Home Medications Medication Instructions Recorded Confirmed Dicyclomine [Bentyl] 10 mg PO QID PRN 12/25/23 12/25/23 Hyoscyamine Sulfate [Levsin] 0.125 mg PO Q8H PRN 12/25/23 12/25/23 Previous Rx's Medication Instructions Recorded Cephalexin [Keflex] 500 mg PO Q6HR #28 cap 03/07/24 Phenazopyridine [Pyridium] 200 mg PO TID #6 tablet 03/10/24 Acetaminophen-Codeine 300-30mg 1 tab PO Q4H PRN #20 tablet 03/23/24 [Tylenol #3] Amoxic-Pot Clav 875-125Mg 1 tab PO Q12HR #20 tab 03/23/24 [Augmentin 875-125] Cephalexin [Keflex] 500 mg PO Q6HR #28 cap 03/26/24 Ondansetron [Zofran] 4 mg PO Q8HR PRN #15 tab 05/27/24 Albuterol Inhaler [Ventolin Hfa 1 - 2 puff INHALATION Q6H PRN #1 11/14/24 Inhaler] each Albuterol Nebulized [Ventolin 2.5 mg INHALATION Q4H PRN #75 ml 11/14/24 Nebulized] predniSONE 50 mg PO DAILY #5 tab 11/14/24 Allergies Allergy/AdvReac Type Severity Reaction Status Date / Time aspirin AdvReac gi bleeds Verified 11/14/24 21:39 ketorolac [From Toradol] AdvReac GI bleeds Verified 11/14/24 21:39 NSAIDS (Non-Steroidal AdvReac given her Verified 11/14/24 21:39 Anti-Inflamma a GI bleed in the past Review of Systems ROS Statement: Those systems with pertinent positive or pertinent negative responses have been documented in the HPI. ROS Other: All systems not noted in ROS Statement are negative. Past Medical History Past Medical History: Diabetes Mellitus, Fibromyalgia, GERD/Reflux, GI Bleed, Hyperlipidemia, Hypertension Additional Past Medical History / Comment(s): gallstones, kidney stones, IBS, migraines, tachycardia, Martine- Guevara tear, blood clot, pesudo tumor cerebrea History of Any Multi-Drug Resistant Organisms: None Reported Past Surgical History: Section, Cholecystectomy, Tubal Ligation Additional Past Surgical History / Comment(s): neck biopsy (lymph node ) d&c; LP shunt May 13 2019 feb 0211/2019 -revision, stent/ lithotripsy on left, cystoscopy, shunt revises july 28. Past Anesthesia/Blood Transfusion Reactions: No Reported Reaction Past Psychological History: Anxiety, Bipolar, Depression, PTSD Smoking Status: Vaper Past Alcohol Use History: None Reported Past Drug Use History: Marijuana - Past Family History Mother Family Medical History: Diabetes Mellitus, Hyperlipidemia, Hypertension, Myocardial Infarction (PR) Additional Family Medical History / Comment(s): PR X 3 Father Family Medical History: Congestive Heart Failure (CHF), Hyperlipidemia, Hypertension, Myocardial Infarction (PR) Additional Family Medical History / Comment(s): mi x 3 Son(s) Family Medical History: No Reported History General Exam Limitations: no limitations General appearance: alert, in no apparent distress Head exam: Present: atraumatic, normocephalic, normal inspection Eye exam: Present: normal appearance, PERRL, EOMI. Absent: scleral icterus, conjunctival injection, periorbital swelling ENT exam: Present: normal exam, normal oropharynx, mucous membranes moist Neck exam: Present: normal inspection, full ROM. Absent: tenderness, meningismus, lymphadenopathy Respiratory exam: Present: wheezes, chest wall tenderness. Absent: normal lung sounds bilaterally, respiratory distress, rales, rhonchi, stridor Cardiovascular Exam: Present: normal rhythm, tachycardia, normal heart sounds. Absent: systolic murmur, diastolic murmur, rubs, gallop, clicks Course Vital Signs 11/14/24 11/14/24 11/14/24 21:39 22:24 22:32 Temperature 99.0 F Pulse Rate 104 H 82 87 Respiratory 18 Rate Blood Pressure 160/99 O2 Sat by Pulse 97 Oximetry 07/20/25 23:00 Temperature Pulse Rate 81 Respiratory 16 Rate Blood Pressure 148/80 O2 Sat by Pulse 97 Oximetry Medical Decision Making - Medical Decision Making Was pt. sent in by a medical professional or institution ([facility], POWERTRAIN DESIGN ENGINEER, urgent care, hospital, or assisted...) When possible be specific @ -No Did you speak to anyone other than the patient for history (EMS, parent, family, police, friend...)? What history was obtained from this source @ -No Did you review nursing and triage notes (agree or disagree)? Why? @ -I reviewed and agree with nursing and triage notes Were old charts reviewed (outside hosp., previous admission, EMS record, old EKG, old radiological studies, urgent care reports/EKG's, assisted records)? Report findings @ -No old charts were reviewed Differential Diagnosis (chest pain, altered mental status, abdominal pain women, abdominal pain men, vaginal bleeding, weakness, fever, dyspnea, syncope, headache, dizziness, GI bleed, back pain, seizure, CVA, palpatations, mental health, musculoskeletal)? @ -COVID 19, RSV, influenza, pneumonia, acute bronchitis, URI, this list is not all inclusive differential Dyspnea: Coronary syndrome, arrhythmia, tamponade, asthma, COPD, pulmonary embolism, pneumonia, pneumothorax, pulmonary effusion, anaphylaxis, diabetic ketoacidosis, flailed chest, pulmonary contusion, diaphragmatic rupture, anemia, neuromuscular, this is not meant to be an all-inclusive list. EKG interpreted by me (3pts min.). @ -None X-rays interpreted by me (1pt min.). @ -X-ray shows no acute cardiopulmonary process. CT interpreted by me (1pt min.). @ -None done U/S interpreted by me (1pt. min.). @ -None done What testing was considered but not performed or refused? (CT, X-rays, U/S, labs)? Why? @ -None What meds were considered but not given or refused? Why? @ -None Did you discuss the management of the patient with other professionals (professionals i.e. [facility], POWERTRAIN DESIGN ENGINEER, lab, RT, psych nurse, aids social worker, financial assistant, teacher, chief administrative officer, pillowcase folder)? Give summary @ -No Was smoking cessation discussed for >3mins.? @ -No Was critical care preformed (if so, how long)? @ -No Were there social determinants of health that impacted care today? How? (Homelessness, low income, unemployed, alcoholism, drug addiction, transportation, low edu. Level, literacy, decrease access to med. care, senior living, rehab)? @ -No Was there de-escalation of care discussed even if they declined (Discuss DNR or withdrawal of care, Hospice)? DNR status @ -No What co-morbidities impacted this encounter? (DM, HTN, Smoking, COPD, CAD, Cancer, CVA, ARF, Chemo, Hep., AIDS, mental health diagnosis, sleep apnea, morbid obesity)? @ -None Was patient admitted / discharged? Hospital course, mention meds given and route, prescriptions, significant lab abnormalities, going to OR and other pertinent info. @ -Discharge patient for breathing treatments and DuoNeb treatment. Patient did receive Solu-Medrol. Patient has acute bronchospasms may have underlying mild asthma and allergies. Patient will be discharged on steroids, inhaler and follow-up. Patient chest wall pain reproducible. Undiagnosed new problem with uncertain prognosis? @ -No Drug Therapy requiring intensive monitoring for toxicity (Heparin, Nitro, Insulin, Cardizem)? @ -No Were any procedures done? @ -No Diagnosis/symptom? @ -Acute bronchospasms, dyspnea Acute, or Chronic, or Acute on Chronic? @ -[Acute Uncomplicated (without systemic symptoms) or Complicated (systemic symptoms)? @ -Complicated Side effects of treatment? @ -No Exacerbation, Progression, or Severe Exacerbation? @ -No Poses a threat to life or bodily function? How? (Chest pain, USA, PR, pneumonia, PE, COPD, DKA, ARF, appy, cholecystitis, CVA, Diverticulitis, Homicidal, Suicidal, threat to staff... and all critical care pts) @ -No Disposition Clinical Impression: Dyspnea, Acute bronchospasm Disposition: HOME SELF-CARE Condition: Stable Instructions (If sedation given, give patient instructions): Bronchospasm (ED) Additional Instructions: Please return to the Emergency Department if symptoms worsen or any other concerns. Prescriptions: predniSONE 50 mg PO DAILY #5 tab Albuterol Inhaler [Ventolin Hfa Inhaler] 1 - 2 puff INHALATION Q6H PRN #1 each PRN Reason: Shortness Of Breath Albuterol Nebulized [Ventolin Nebulized] 2.5 mg INHALATION Q4H PRN #75 ml PRN Reason: difficulty in breathing Is patient prescribed a controlled substance at d/c from ED?: No Referrals: None,Stated [Primary Care Provider] - 1-2 days Time of Disposition: 23:29
--- NOTE | 2024-11-14 23:00 | XR ---
EXAM: XR Chest, 2 Views CLINICAL HISTORY: ITS.REASON XR Reason: cough TECHNIQUE: Frontal and lateral views of the chest. COMPARISON: 05/04/2019 FINDINGS: Lungs: No consolidation. Pleural space: No significant pleural effusion. No pneumothorax. Heart: No cardiomegaly or pulmonary vascular congestion. Bones/joints: No acute fracture. No dislocation. IMPRESSION: No evidence of acute cardiopulmonary disease.
[2024-11-14 23:04] VITALS: BP 148/80; PULSE 81
[2024-11-14 23:37] VITALS: RESP 18
== END 2024-11-14 23:36 | disposition home or self-care (01) ==
LOC: EC 21:31
DX: J98.01 Acute bronchospasm (principal); F17.290 Nicotine dependence, other tobacco product, uncomplicated; Z88.6 Allergy status to analgesic agent; Z88.8 Allergy status to other drugs, medicaments and biological substances
CPT/HCPCS: 94640; 71046; 99285; J2919

== ENCOUNTER 2024-11-18 20:43 | Emergency (ER) | payer OTHER ==
--- NOTE | 2024-11-18 22:04 | ED ---
General Adult HPI - General Chief complaint: Abdominal Pain Stated complaint: Abd pain on both sides, nausea Time Seen by Provider: 11/18/24 21:08 Source: patient Mode of arrival: ambulatory Limitations: no limitations - History of Present Illness Initial comments: Dictation was produced using [employer] dictation software. please excuse any grammatical, word or spelling errors. Chief Complaint: 34-year-old female with abdominal pain History of Present Illness: Patient 34-year-old female presents to the emergency department with lower abdominal pain. Patient states the pain originates in the lower periumbilical area and radiates to the bilateral flanks. Denies any urinary symptoms. Has extensive history of normal surgery including multiple C- sections and LP shunt. Denies any fever chills or night sweats. States that she has some nausea. No vomiting. The ROS documented in this emergency department record has been reviewed and confirmed by me. Those systems with pertinent positive or negative responses have been documented in the HPI. All other systems are other negative and/or noncontributory. - Related Data Home Medications Medication Instructions Recorded Confirmed Dicyclomine [Bentyl] 10 mg PO QID PRN 12/25/23 12/25/23 Hyoscyamine Sulfate [Levsin] 0.125 mg PO Q8H PRN 12/25/23 12/25/23 Previous Rx's Medication Instructions Recorded Cephalexin [Keflex] 500 mg PO Q6HR #28 cap 03/07/24 Phenazopyridine [Pyridium] 200 mg PO TID #6 tablet 03/10/24 Acetaminophen-Codeine 300-30mg 1 tab PO Q4H PRN #20 tablet 03/23/24 [Tylenol #3] Amoxic-Pot Clav 875-125Mg 1 tab PO Q12HR #20 tab 03/23/24 [Augmentin 875-125] Cephalexin [Keflex] 500 mg PO Q6HR #28 cap 03/26/24 Ondansetron [Zofran] 4 mg PO Q8HR PRN #15 tab 05/27/24 Albuterol Inhaler [Ventolin Hfa 1 - 2 puff INHALATION Q6H PRN #1 11/14/24 Inhaler] each Albuterol Nebulized [Ventolin 2.5 mg INHALATION Q4H PRN #75 ml 11/14/24 Nebulized] predniSONE 50 mg PO DAILY #5 tab 11/14/24 oxyCODONE-APAP 5-325MG [Percocet 1 tab PO Q6HR PRN 3 Days #12 tab 11/19/24 5-325 mg] Allergies Allergy/AdvReac Type Severity Reaction Status Date / Time aspirin AdvReac gi bleeds Verified 11/18/24 21:15 ketorolac [From Toradol] AdvReac GI bleeds Verified 11/18/24 21:15 NSAIDS (Non-Steroidal AdvReac given her Verified 11/18/24 21:15 Anti-Inflamma a GI bleed in the past Review of Systems ROS Statement: Those systems with pertinent positive or pertinent negative responses have been documented in the HPI. ROS Other: All systems not noted in ROS Statement are negative. Past Medical History Past Medical History: Diabetes Mellitus, Fibromyalgia, GERD/Reflux, GI Bleed, Hyperlipidemia, Hypertension Additional Past Medical History / Comment(s): gallstones, kidney stones, IBS, migraines, tachycardia, Martine- Guevara tear, blood clot, pesudo tumor cerebrea History of Any Multi-Drug Resistant Organisms: None Reported Past Surgical History: Section, Cholecystectomy, Tubal Ligation Additional Past Surgical History / Comment(s): neck biopsy (lymph node ) d&c; LP shunt May 13 2019 feb 0211/2019 -revision, stent/ lithotripsy on left, cystoscopy, shunt revises july 28. Past Anesthesia/Blood Transfusion Reactions: No Reported Reaction Past Psychological History: Anxiety, Bipolar, Depression, PTSD Smoking Status: Vaper Past Alcohol Use History: None Reported Past Drug Use History: Marijuana - Past Family History Mother Family Medical History: Diabetes Mellitus, Hyperlipidemia, Hypertension, Myocardial Infarction (MD) Additional Family Medical History / Comment(s): MD X 3 Father Family Medical History: Congestive Heart Failure (CHF), Hyperlipidemia, Hypertension, Myocardial Infarction (MD) Additional Family Medical History / Comment(s): mi x 3 Son(s) Family Medical History: No Reported History General Exam - General Exam Comments Initial Comments: PHYSICAL EXAM: General Impression: Alert and oriented x3, not in acute distress HEENT: Normocephalic atraumatic, extra-ocular movements intact, pupils equal and reactive to light bilaterally, mucous membranes moist. Cardiovascular: Heart regular rate and rhythm Chest: Able to complete full sentences, no retractions, no tachypnea Abdomen: abdomen soft, morbidly obese abdomen, diffuse palpatory lower abdominal tenderness, non-distended, no organomegaly Musculoskeletal: Pulses present and equal in all extremities, no peripheral edema Motor: no focal deficits noted Neurological: CN II-XII grossly intact, no focal motor or sensory deficits noted Skin: Intact with no visualized rashes Psych: Normal affect and mood Limitations: no limitations Course Vital Signs 11/18/24 21:11 Temperature 98.7 F Pulse Rate 119 H Respiratory 15 Rate Blood Pressure 121/80 O2 Sat by Pulse 98 Oximetry EKG Findings - EKG Comments: EKG Findings:: My EKG interpretation: Ventricular rate 104 sinus tachycardia,. 130, QRS 89, QT 3 8386. No NH prolongation, no QTC prolongation, no ST or T-wave changes noted. Overall, this EKG is unremarkable Medical Decision Making - Medical Decision Making Was pt. sent in by a medical professional or institution (, PA, BAR CATCHER, urgent care, hospital, or custodial...) When possible be specific @ -No Did you speak to anyone other than the patient for history (EMS, parent, family, police, friend...)? What history was obtained from this source @ -No Did you review nursing and triage notes (agree or disagree)? Why? @ -I reviewed and agree with nursing and triage notes Were old charts reviewed (outside hosp., previous admission, EMS record, old EKG, old radiological studies, urgent care reports/EKG's, custodial records)? Report findings @ -No old charts were reviewed Differential Diagnosis (chest pain, altered mental status, abdominal pain women, abdominal pain men, vaginal bleeding, musculoskeletal, weakness, fever, dyspnea, syncope, headache, dizziness, GI bleed, back pain, seizure, CVA, palpatations, mental health)? @ -Differential Abdominal Pain Women: Appendicitis, Cholecystitis, diverticulosis, ischemic bowel, pancreatitis, he patitis, UTI, gastroenteritis, AAA, incarcerated hernia, bowel obstruction, constipation, inflammatory bowel, hepatitis, peptic ulcer disease, splenic infarction, perforated viscus, vulvitis, ovarian torsion, PID, kidney stone, placenta abruption, this is not meant to be an all-inclusive list EKG interpreted by me (3pts min.). @ -See above X-rays interpreted by me (1pt min.). @ -None done CT interpreted by me (1pt min.). @ -CT ab pelvis shows no acute processes U/S interpreted by me (1pt. min.). @ -None done What testing was considered but not performed or refused? (CT, X-rays, U/S, labs)? Why? @ -None What meds were considered but not given or refused? Why? @ -None Was smoking cessation discussed for >3mins.? @ -No Were there social determinants of health that impacted care today? How? (Homelessness, low income, unemployed, alcoholism, drug addiction, transportation, low edu. Level, literacy, decrease access to med. care, shelter, rehab)? @ -No Was there de-escalation of care discussed even if they declined (Discuss DNR or withdrawal of care, Hospice)? DNR status @ -No What co-morbidities impacted this encounter? (DM, HTN, Smoking, COPD, CAD, Cancer, CVA, ARF, Chemo, Hep., AIDS, mental health diagnosis, sleep apnea, morbid obesity)? @ -Extensive abdominal surgical history Was patient admitted / discharged? Hospital course, mention meds given and route, prescriptions, significant lab abnormalities, going to OR and other pertinent info. @ -34-year-old female presents to the emergency department with worsening lower abdominal pain. Vital signs stable. Laboratory evaluation shows leukocytosis of 19. CT abdomen pelvis shows no acute processes. Patient given analgesics. Disposition options were discussed with patient and she is agreeable with discharge. Patient given return precautions Did you discuss the management of the patient with other professionals (p rofessionals i.e. , PA, BAR CATCHER, lab, RT, psych nurse, social staff worker, funding analyst, teacher, pharmaceutical officer, shoe caser)? Give summary @ -No Was critical care preformed (if so, how long)? @ -No Undiagnosed new problem with uncertain prognosis? @ -No Drug Therapy requiring intensive monitoring for toxicity (Heparin, Nitro, Insulin, Cardizem)? @ -No Were any procedures done? @ -No Diagnosis/symptom? Acute, or Chronic, or Acute on Chronic? Uncomplicated (without systemic symptoms) or Complicated (systemic symptoms)? @ -Abdominal pain, no obvious source Side effects of treatment? @ -No Exacerbation, Progression, or Severe Exacerbation? @ -No Poses a threat to life or bodily function? How? (Chest pain, USA, MD, pneumonia, PE, COPD, DKA, ARF, appy, cholecystitis, CVA, Diverticulitis, Homicidal, Suicidal, threat to staff... and all critical care pts) @ -yes - Lab Data Result diagrams: 11/18/24 21:55 11/18/24 21:55 Lab Results 11/18/24 11/18/24 11/18/24 Range/Units 21:55 21:55 23:35 WBC 19.62 H (4.50-10.00) 10*3/uL RBC 3.20 L (4.10-5.20) 10*6/uL Hgb 12.5 (12.0-15.0) g/dL Hct 29.5 L (37.2-46.3) % MCV 92.2 D (80.0-97.0) fL MCH 39.1 H (27.0-32.0) pg MCHC 42.4 H (32.0-37.0) g/dL Plt Count 361 (140-440) 10*3/uL MPV 9.5 (9.5-12.2) fL Immature Gran % (Auto) 0.5 % Neutrophils % (Manual) 65 % Lymphocytes % (Manual) 30 % Monocytes % (Manual) 4 % Eosinophils % (Manual) 1 % Immature Gran # 0.10 H (0.00-0.04) 10*3/uL Neutrophils # (Manual) 12.75 H (1.3-7.7) k/uL Lymphocytes # (Manual) 5.89 H (1.0-4.8) k/uL Monocytes # (Manual) 0.78 (0-1.0) k/uL Eosinophils # (Manual) 0.20 (0-0.7) k/uL Nucleated RBCs 0 (0-0) /100 WBC Manual Slide Review Performed Large Platelets Present Sodium 136 L (137-145) mmol/L Potassium 3.8 (3.5-5.1) mmol/L Chloride 101 (98-107) mmol/L Carbon Dioxide 24 (22-30) mmol/L Anion Gap 11 mmol/L BUN 22 H (7-17) mg/dL Creatinine 0.81 (0.52-1.04) mg/dL Est GFR (CKD-EPI)AfAm >90 (>60 ml/min/1.73 sqM) Est GFR (CKD-EPI)NonAf >90 (>60 ml/min/1.73 sqM) Glucose 174 H (74-99) mg/dL Calcium 10.5 H (8.4-10.2) mg/dL Total Bilirubin 0.7 (0.2-1.3) mg/dL AST 27 (14-36) U/L ALT 50 H (4-34) U/L Alkaline Phosphatase 143 H (38-126) U/L Total Protein 6.4 (6.3-8.2) g/dL Albumin 3.8 (3.5-5.0) g/dL Urine Color Yellow Urine Appearance Clear (Clear) Urine pH 6.0 (5.0-8.0) Ur Specific [place] 1.033 (1.001-1.035) Urine Protein Negative (Negative) Urine Glucose (UA) Negative (Negative) Urine Ketones Negative (Negative) Urine Blood Negative (Negative) Urine Nitrite Negative (Negative) Urine Bilirubin Negative (Negative) Urine Urobilinogen <2.0 (<2.0) mg/dL Ur Leukocyte Esterase Negative (Negative) Disposition Clinical Impression: Abdominal pain Disposition: HOME SELF-CARE Condition: Fair Instructions (If sedation given, give patient instructions): Abdominal Pain (ED) Prescriptions: oxyCODONE-APAP 5-325MG [Percocet 5-325 mg] 1 tab PO Q6HR PRN 3 Days #12 tab PRN Reason: Pain Is patient prescribed a controlled substance at d/c from ED?: Yes If prescribed controlled substance>3 days was MAPS reviewed?: Prescribed <3 Days Referrals: None,Stated [Primary Care Provider] - 1-2 days Time of Disposition: 00:33
[2024-11-18 22:13] LABS: HCT 29.5 % (37.2-46.3); HGB 12.5 g/dL (12.0-15.0); MCH 39.1 pg (27.0-32.0); Platelet Count 361 10*3/uL (140-440); RBC 3.20 10*6/uL (4.10-5.20); RDW 20.0 % (11.5-14.5); WBC 19.62 10*3/uL (4.50-10.00)
[2024-11-18 22:17] LABS: MCHC 42.4 g/dL (32.0-37.0); MCV 92.2 fL (80.0-97.0)
[2024-11-18 22:27] LABS: ALT 50 U/L (4-34); AST 27 U/L (14-36); African American GFR (CKD) >90 (>60 ml/min/1.73 sqM); Albumin 3.8 g/dL (3.5-5.0); Alkaline Phosphatase 143 U/L (38-126); Anion Gap 11 mmol/L; Blood Urea Nitrogen 22 mg/dL (7-17); Calcium 10.5 mg/dL (8.4-10.2); Carbon Dioxide 24 mmol/L (22-30); Chloride 101 mmol/L (98-107); Glucose 174 mg/dL (74-99); Non-African American GFR(CKD) >90 (>60 ml/min/1.73 sqM); Potassium 3.8 mmol/L (3.5-5.1); Sodium 136 mmol/L (137-145); Total Protein 6.4 g/dL (6.3-8.2)
[2024-11-18] MEDS: SODIUM CHLORIDE 0.9% 1,000 ML IV STA (22:42)
[2024-11-18] MEDS: ONDANSETRON 4 MG/2 ML VIAL IVP STA ×2 (22:43→23:59)
[2024-11-18] MEDS: MORPHINE SULFATE 4 MG/ML SYRINGE IV STA (22:43)
[2024-11-18 22:56] LABS: Eosinophils # (M) 0.20 k/uL (0-0.7); Lymphocytes # (M) 5.89 k/uL (1.0-4.8); Monocytes # (M) 0.78 k/uL (0-1.0); Neutrophils # (M) 12.75 k/uL (1.3-7.7); Neutrophils % (M) 65 %; Total Cells Counted 100
[2024-11-18 23:53] LABS: Bilirubin,Urine Negative (Negative); Blood,Urine Negative (Negative); Color,Urine Yellow; Glucose,Urine (UA) Negative (Negative); Ketones,Urine Negative (Negative); Leukocyte Esterase,Urine Negative (Negative); Nitrite,Urine Negative (Negative); PH, Urine 6.0 (5.0-8.0); Protein,Urine Negative (Negative); Specific Gravity,Urine 1.033 (1.001-1.035); Urobilinogen,Urine <2.0 mg/dL (<2.0)
[2024-11-18] MEDS: MORPHINE SULFATE 4 MG/ML SYRINGE IVP PRN (23:59)
--- NOTE | 2024-11-19 00:17 | CT ---
EXAM: CT Abdomen and Pelvis With Intravenous Contrast CLINICAL HISTORY: CT Reason: lower abdominal pain TECHNIQUE: Axial computed tomography images of the abdomen and pelvis with intravenous contrast. CTDI is 45.3 mGy and DLP is 2331.3 mGy-cm. This CT exam was performed using one or more of the following dose reduction techniques: automated exposure control, adjustment of the mA and/or kV according to patient size, and/or use of iterative reconstruction technique. COMPARISON: 11/07/2024 FINDINGS: Lung bases: Unremarkable. No mass. No consolidation. ABDOMEN: Liver: Mild fatty infiltration of the liver and hepatomegaly with the liver measuring 18.5 cm craniocaudad. No focal liver lesion is seen. Gallbladder and bile ducts: Previous cholecystectomy. No biliary duct dilation or choledocholithiasis. Pancreas: Unremarkable. No mass. No ductal dilation. Spleen: Unremarkable. No splenomegaly. Adrenals: Unremarkable. No mass. Kidneys and ureters: Delayed images show normal renal contrast excretion bilaterally. No hydronephrosis. Stomach and bowel: Unremarkable. No obstruction. No mucosal thickening. PELVIS: Appendix: No signs of acute appendicitis. Bowel loops are nondilated. No pneumoperitoneum, free fluid, or acute inflammatory changes are seen involving the bowel. Bladder: Unremarkable. No mass. Reproductive: Previous tubal ligation. ABDOMEN and PELVIS: Intraperitoneal space: See above. Bones/joints: No acute fracture. No dislocation. Soft tissues: Unremarkable. Vasculature: Unremarkable. No abdominal aortic aneurysm. Lymph nodes: Unremarkable. No enlarged lymph nodes. Tubes, lines and devices: There is BIOMETRICS CONSULTANT shunt tubing extending into the abdomen. No abnormal fluid collections are seen. IMPRESSION: 1. No signs of acute appendicitis. Bowel loops are nondilated. No pneumoperitoneum, free fluid, or acute inflammatory changes are seen involving the bowel. 2. There is BIOMETRICS CONSULTANT shunt tubing extending into the abdomen. No abnormal fluid collections are seen.
[2024-11-19] MEDS: ACET/COD 300 MG/30 MG STARTER PACK TAB BTL PO STA (00:47)
[2024-11-19 00:51] VITALS: BP 105/79; PULSE 100; RESP 18; TEMP 97.7
== END 2024-11-19 00:51 | disposition home or self-care (01) ==
LOC: EC 20:43
DX: R10.32 Left lower quadrant pain (principal); R10.31 Right lower quadrant pain; F17.290 Nicotine dependence, other tobacco product, uncomplicated; Z88.6 Allergy status to analgesic agent
CPT/HCPCS: 36415; 93005; 80053; 85025; 81003; 74177; 99284; 96374; 96375; 96376; 96361; J2270; J2405; Q9967

== ENCOUNTER 2024-11-19 23:34 | Emergency (ER) | payer OTHER ==
[2024-11-20] MEDS: HYDROmorphone 1 MG/ML 1 ML SYRINGE IVP STA (00:16)
[2024-11-20] MEDS: ONDANSETRON 4 MG/2 ML VIAL IVP STA (00:17)
[2024-11-20 00:44] LABS: ALT 43 U/L (4-34); AST 23 U/L (14-36); African American GFR (CKD) >90 (>60 ml/min/1.73 sqM); Albumin 3.5 g/dL (3.5-5.0); Alkaline Phosphatase 113 U/L (38-126); Anion Gap 9 mmol/L; Blood Urea Nitrogen 21 mg/dL (7-17); Calcium 8.5 mg/dL (8.4-10.2); Carbon Dioxide 26 mmol/L (22-30); Chloride 102 mmol/L (98-107); Glucose 116 mg/dL (74-99); Non-African American GFR(CKD) 87 (>60 ml/min/1.73 sqM); Potassium 4.2 mmol/L (3.5-5.1); Sodium 137 mmol/L (137-145); Total Protein 6.0 g/dL (6.3-8.2)
[2024-11-20 01:19] LABS: Basophils # (A) 0.09 10*3/uL (0.00-0.10); Basophils % (A) 0.7 %; Eosinophils # (A) 0.42 10*3/uL (0.04-0.35); Eosinophils % (A) 3.3 %; HCT 36.1 % (37.2-46.3); HGB 12.0 g/dL (12.0-15.0); Lymphocytes # (A) 3.82 10*3/uL (0.90-5.00); Lymphocytes % (A) 29.8 %; MCH 27.5 pg (27.0-32.0); MCHC 33.2 g/dL (32.0-37.0); Monocytes # (A) 0.68 10*3/uL (0.20-1.00); Monocytes % (A) 5.3 %; Neutrophils # (A) 7.74 10*3/uL (1.80-7.70); Neutrophils % (A) 60.5 %; Platelet Count 304 10*3/uL (140-440); RBC 4.37 10*6/uL (4.10-5.20); RDW 14.7 % (11.5-14.5); WBC 12.80 10*3/uL (4.50-10.00)
[2024-11-20 01:22] LABS: Bilirubin,Urine Negative (Negative); Blood,Urine Negative (Negative); Color,Urine Light Yellow; Glucose,Urine (UA) Negative (Negative); Ketones,Urine Negative (Negative); Leukocyte Esterase,Urine Negative (Negative); Nitrite,Urine Negative (Negative); PH, Urine 6.5 (5.0-8.0); Protein,Urine Negative (Negative); Specific Gravity,Urine 1.026 (1.001-1.035); Urobilinogen,Urine 2.0 mg/dL (<2.0)
[2024-11-20 01:23] LABS: MCV 82.6 fL (80.0-97.0)
--- NOTE | 2024-11-20 01:58 | ED ---
Abdominal Pain HPI - General Chief Complaint: Abdominal Pain Stated Complaint: right sided abd pain NVD Time Seen by Provider: 11/19/24 23:41 Source: patient Mode of arrival: wheelchair - History of Present Illness Initial Comments: 34-year-old female presented with chief complaint of abdominal pain. Patient has been here on multiple occasions, including yesterday for the same complaint. She had a thorough workup yesterday including CT scan of the abdomen and pelvis which showed no acute process. She admits to nausea and vomiting. No known fever. No urinary symptoms. No change in bowel habits. No chest pain or difficulty breathing. - Related Data Home Medications Medication Instructions Recorded Confirmed Dicyclomine [Bentyl] 10 mg PO QID PRN 12/25/23 12/25/23 Hyoscyamine Sulfate [Levsin] 0.125 mg PO Q8H PRN 12/25/23 12/25/23 Previous Rx's Medication Instructions Recorded Cephalexin [Keflex] 500 mg PO Q6HR #28 cap 03/07/24 Phenazopyridine [Pyridium] 200 mg PO TID #6 tablet 03/10/24 Acetaminophen-Codeine 300-30mg 1 tab PO Q4H PRN #20 tablet 03/23/24 [Tylenol #3] Amoxic-Pot Clav 875-125Mg 1 tab PO Q12HR #20 tab 03/23/24 [Augmentin 875-125] Cephalexin [Keflex] 500 mg PO Q6HR #28 cap 03/26/24 Ondansetron [Zofran] 4 mg PO Q8HR PRN #15 tab 05/27/24 Albuterol Inhaler [Ventolin Hfa 1 - 2 puff INHALATION Q6H PRN #1 11/14/24 Inhaler] each Albuterol Nebulized [Ventolin 2.5 mg INHALATION Q4H PRN #75 ml 11/14/24 Nebulized] predniSONE 50 mg PO DAILY #5 tab 11/14/24 oxyCODONE-APAP 5-325MG [Percocet 1 tab PO Q6HR PRN 3 Days #12 tab 11/19/24 5-325 mg] Allergies Allergy/AdvReac Type Severity Reaction Status Date / Time aspirin AdvReac gi bleeds Verified 11/19/24 23:37 ketorolac [From Toradol] AdvReac GI bleeds Verified 11/19/24 23:37 NSAIDS (Non-Steroidal AdvReac given her Verified 11/19/24 23:37 Anti-Inflamma a GI bleed in the past Review of Systems ROS Statement: Those systems with pertinent positive or pertinent negative responses have been documented in the HPI. ROS Other: All systems not noted in ROS Statement are negative. Past Medical History Past Medical History: Diabetes Mellitus, Fibromyalgia, GERD/Reflux, GI Bleed, Hyperlipidemia, Hypertension Additional Past Medical History / Comment(s): gallstones, kidney stones, IBS, migraines, tachycardia, Martine- Guevara tear, blood clot, pesudo tumor cerebrea History of Any Multi-Drug Resistant Organisms: None Reported Past Surgical History: Section, Cholecystectomy, Tubal Ligation Additional Past Surgical History / Comment(s): neck biopsy (lymph node ) d&c; LP shunt May 13 2019 feb 0211/2019 -revision, stent/ lithotripsy on left, cystoscopy, shunt revises july 28. Past Anesthesia/Blood Transfusion Reactions: No Reported Reaction Past Psychological History: Anxiety, Bipolar, Depression, PTSD Smoking Status: Vaper Past Alcohol Use History: None Reported Past Drug Use History: Marijuana - Past Family History Mother Family Medical History: Diabetes Mellitus, Hyperlipidemia, Hypertension, Myocardial Infarction ([place]) Additional Family Medical History / Comment(s): [place] X 3 Father Family Medical History: Congestive Heart Failure (CHF), Hyperlipidemia, Hypertension, Myocardial Infarction ([place]) Additional Family Medical History / Comment(s): mi x 3 Son(s) Family Medical History: No Reported History General Exam General appearance: alert, in no apparent distress Head exam: Present: atraumatic, normocephalic, normal inspection Eye exam: Present: normal appearance, EOMI. Absent: periorbital swelling Neck exam: Present: normal inspection. Absent: meningismus Respiratory exam: Present: normal lung sounds bilaterally. Absent: respiratory distress, wheezes, rales, rhonchi, stridor Cardiovascular Exam: Present: regular rate, normal rhythm, normal heart sounds. Absent: systolic murmur, diastolic murmur, rubs, gallop, clicks GI/Abdominal exam: Present: soft, tenderness (Lower abdomen). Absent: distended, guarding, rebound, rigid Neurological exam: Present: alert, oriented X3 Psychiatric exam: Present: normal affect, normal mood Skin exam: Present: warm, dry, normal color Course Vital Signs 11/19/24 11/20/24 11/20/24 23:35 00:15 02:02 Temperature 99.1 F 98.1 F Pulse Rate 96 88 85 Respiratory 19 19 20 Rate Blood Pressure 136/71 129/83 110/61 O2 Sat by Pulse 96 98 95 Oximetry Medical Decision Making - Medical Decision Making Was pt. sent in by a medical professional or institution (, PA, CARE TECHNICIAN, urgent care, hospital, or assisted...) When possible be specific @ -No Did you speak to anyone other than the patient for history (EMS, parent, family, police, friend...)? What history was obtained from this source @ -No Did you review nursing and triage notes (agree or disagree)? Why? @ -I reviewed and agree with nursing and triage notes Were old charts reviewed (outside hosp., previous admission, EMS record, old EKG, old radiological studies, urgent care reports/EKG's, assisted records)? Report findings @ -Reviewed visit from yesterday including CT scan which showed no acute process Differential Diagnosis (chest pain, altered mental status, abdominal pain women, abdominal pain men, vaginal bleeding, weakness, fever, dyspnea, syncope, headache, dizziness, GI bleed, back pain, seizure, CVA, palpatations, mental health, musculoskeletal)? @ -MDM Differential Abdominal Pain Women: Appendicitis, Cholecystitis, diverticulosis, ischemic bowel, pancreatitis, hepatitis, UTI, gastroenteritis, AAA, incarcerated hernia, bowel obstruction, constipation, inflammatory bowel, hepatitis, peptic ulcer disease, splenic infarction, perforated viscus, vulvitis, ovarian torsion, PID, kidney stone, p lacenta abruption... This is not meant to be an all-inclusive list EKG interpreted by me (3pts min.). @ -As above X-rays interpreted by me (1pt min.). @ -None done CT interpreted by me (1pt min.). @ -None done U/S interpreted by me (1pt. min.). @ -None done What testing was considered but not performed or refused? (CT, X-rays, U/S, labs)? Why? @ -None What meds were considered but not given or refused? Why? @ -None Did you discuss the management of the patient with other professionals (pro fessionals i.e. , PA, CARE TECHNICIAN, lab, RT, psych nurse, social services, silica mixer operator, teacher, conservation officer, dependency case manager)? Give summary @ -No Was smoking cessation discussed for >3mins.? @ -No Was critical care preformed (if so, how long)? @ -No Were there social determinants of health that impacted care today? How? (Homelessness, low income, unemployed, alcoholism, drug addiction, transportation, low edu. Level, literacy, decrease access to med. care, [facility], rehab)? @ -No Was there de-escalation of care discussed even if they declined (Discuss DNR or withdrawal of care, Hospice)? DNR status @ -No What co-morbidities impacted this encounter? (DM, HTN, Smoking, COPD, CAD, Cancer, CVA, ARF, Chemo, Hep., AIDS, mental health diagnosis, sleep apnea, morbid obesity)? @ -None Was patient admitted / discharged? Hospital course, mention meds given and route, prescriptions, significant lab abnormalities, going to OR and other pertinent info. @ -34-year-old female presenting with chief complaint of abdominal pain. This is in the lower abdomen. She was seen here yesterday with the same complaint had negative CT of the abdomen and pelvis. History and physical examination are conducted. White count is improved from 19.16 to 12.8. Urine is negative for infection. I do not feel that she needs a repeat CT at this time as the pain is the same as yesterday. Patient is educated on today's findings. Instructed to follow-up with PCP. Also instructed follow-up with her solar systems designer. Fo llow-up with PCP. Report back to ER with any new or worsening symptoms. Discussed return parameters and answered all questions. Patient conveyed verbal understanding and agreed to the plan. I discussed this case in detail with my attending Dr. Rai Undiagnosed new problem with uncertain prognosis? @ -No Drug Therapy requiring intensive monitoring for toxicity (Heparin, Nitro, Insulin, Cardizem)? @ -No Were any procedures done? @ -No Diagnosis/symptom? @ -Abdominal pain Acute, or Chronic, or Acute on Chronic? @ -Acute Uncomplicated (without systemic symptoms) or Complicated (systemic symptoms)? @ -Uncomplicated Side effects of treatment? @ -No Exacerbation, Progression, or Severe Exacerbation? @ -No Poses a threat to life or bodily function? How? (Chest pain, [place], [place], pneumonia, PE, COPD, DKA, ARF, appy, cholecystitis, CVA, Diverticulitis, Homicidal, Suicidal, threat to staff... and all critical care pts) @ -Unlikely - Lab Data Result diagrams: 11/20/24 00:07 11/20/24 00:07 Lab Results 11/20/24 11/20/24 11/20/24 Range/Units 00:07 00:07 00:43 WBC 12.80 H (4.50-10.00) 10*3/uL RBC 4.37 (4.10-5.20) 10*6/uL Hgb 12.0 (12.0-15.0) g/dL Hct 36.1 L (37.2-46.3) % MCV 82.6 D (80.0-97.0) fL MCH 27.5 (27.0-32.0) pg MCHC 33.2 (32.0-37.0) g/dL Plt Count 304 (140-440) 10*3/uL MPV 9.2 L (9.5-12.2) fL Immature Gran % (Auto) 0.4 % Neutrophils % 60.5 % Lymphocytes % 29.8 % Monocytes % 5.3 % Eosinophils % 3.3 % Basophils % 0.7 % Immature Gran # 0.05 H (0.00-0.04) 10*3/uL Neutrophils # 7.74 H (1.80-7.70) 10*3/uL Lymphocytes # 3.82 (0.90-5.00) 10*3/uL Monocytes # 0.68 (0.20-1.00) 10*3/uL Eosinophils # 0.42 H (0.04-0.35) 10*3/uL Basophils # 0.09 (0.00-0.10) 10*3/uL Sodium 137 (137-145) mmol/L Potassium 4.2 (3.5-5.1) mmol/L Chloride 102 (98-107) mmol/L Carbon Dioxide 26 (22-30) mmol/L Anion Gap 9 mmol/L BUN 21 H (7-17) mg/dL Creatinine 0.87 (0.52-1.04) mg/dL Est GFR (CKD-EPI)AfAm >90 (>60 ml/min/1.73 sqM) Est GFR (CKD-EPI)NonAf 87 (>60 ml/min/1.73 sqM) Glucose 116 H (74-99) mg/dL Calcium 8.5 (8.4-10.2) mg/dL Total Bilirubin 0.6 (0.2-1.3) mg/dL AST 23 (14-36) U/L ALT 43 H (4-34) U/L Alkaline Phosphatase 113 (38-126) U/L Total Protein 6.0 L (6.3-8.2) g/dL Albumin 3.5 (3.5-5.0) g/dL Urine Color Light Yellow Urine Appearance Clear (Clear) Urine pH 6.5 (5.0-8.0) Ur Specific [place] 1.026 (1.001-1.035) Urine Protein Negative (Negative) Urine Glucose (UA) Negative (Negative) Urine Ketones Negative (Negative) Urine Blood Negative (Negative) Urine Nitrite Negative (Negative) Urine Bilirubin Negative (Negative) Urine Urobilinogen 2.0 (<2.0) mg/dL Ur Leukocyte Esterase Negative (Negative) Urine HCG, Qual (Not Detectd) 11/20/24 Range/Units 00:43 WBC (4.50-10.00) 10*3/uL RBC (4.10-5.20) 10*6/uL Hgb (12.0-15.0) g/dL Hct (37.2-46.3) % MCV (80.0-97.0) fL MCH (27.0-32.0) pg MCHC (32.0-37.0) g/dL Plt Count (140-440) 10*3/uL MPV (9.5-12.2) fL Immature Gran % (Auto) % Neutrophils % % Lymphocytes % % Monocytes % % Eosinophils % % Basophils % % Immature Gran # (0.00-0.04) 10*3/uL Neutrophils # (1.80-7.70) 10*3/uL Lymphocytes # (0.90-5.00) 10*3/uL Monocytes # (0.20-1.00) 10*3/uL Eosinophils # (0.04-0.35) 10*3/uL Basophils # (0.00-0.10) 10*3/uL Sodium (137-145) mmol/L Potassium (3.5-5.1) mmol/L Chloride (98-107) mmol/L Carbon Dioxide (22-30) mmol/L Anion Gap mmol/L BUN (7-17) mg/dL Creatinine (0.52-1.04) mg/dL Est GFR (CKD-EPI)AfAm (>60 ml/min/1.73 sqM) Est GFR (CKD-EPI)NonAf (>60 ml/min/1.73 sqM) Glucose (74-99) mg/dL Calcium (8.4-10.2) mg/dL Total Bilirubin (0.2-1.3) mg/dL AST (14-36) U/L ALT (4-34) U/L Alkaline Phosphatase (38-126) U/L Total Protein (6.3-8.2) g/dL Albumin (3.5-5.0) g/dL Urine Color Urine Appearance (Clear) Urine pH (5.0-8.0) Ur Specific [place] (1.001-1.035) Urine Protein (Negative) Urine Glucose (UA) (Negative) Urine Ketones (Negative) Urine Blood (Negative) Urine Nitrite (Negative) Urine Bilirubin (Negative) Urine Urobilinogen (<2.0) mg/dL Ur Leukocyte Esterase (Negative) Urine HCG, Qual Not Detected (Not Detectd) Disposition Clinical Impression: Abdominal pain Disposition: HOME SELF-CARE Condition: Good Instructions (If sedation given, give patient instructions): Abdominal Pain (ED) Additional Instructions: Follow-up with PCP and GI. Report back to ER with any new or worsening symptoms. Is patient prescribed a controlled substance at d/c from ED?: No Referrals: None,Stated [Primary Care Provider] - 1-2 days Nohemi Vyas MD [STAFF PHYSICIAN] - 1-2 days Nikko Mc MD [STAFF PHYSICIAN] - 1-2 days Time of Disposition: 01:58
[2024-11-20 02:03] VITALS: BP 110/61; PULSE 85; RESP 20; TEMP 98.1
== END 2024-11-20 02:09 | disposition home or self-care (01) ==
LOC: EC 23:34
DX: R10.31 Right lower quadrant pain (principal); F17.290 Nicotine dependence, other tobacco product, uncomplicated; Z88.6 Allergy status to analgesic agent; Z88.8 Allergy status to other drugs, medicaments and biological substances
CPT/HCPCS: 36415; 80053; 85025; 81003; 81025; 99284; 96374; 96375; J2405; J1171